=== PATIENT | male | born 1960 | race Caucasian/White ===

== ENCOUNTER 2016-07-29 08:10 | Inpatient (IN) | payer OTHER ==
[2016-07-29] VITALS (21 sets, daily range): BP systolic 104–198; BP diastolic 41–113
[~2016-07-29] VITALS: Ht 175.3 cm; Wt 72.6 kg
[~2016-07-29 08:10] MED LIST: AMLO5TAB4 PO; CARV12.52 PO; ENAL10TA PO; ENAL5TAB PO; HYDR1TAB PO; IBUP-15 PO; OXYC-12 PO; OXYC-197 PO
[2016-07-29] MEDS ORDERED: RX-NITROGLYCERIN 0.4 MG TAB BTL 25'S SL ONE ×2 (08:16→08:30)
[2016-07-29] MEDS ORDERED: ASPIRIN 81 MG CHEW (CHILDREN'S ASA) ONE (08:16)
[2016-07-29] MEDS ORDERED: morphine INJ 10 MG/ML 1ML (SYR OR VIAL) IV STA (08:25)
[2016-07-29] MEDS ORDERED: ASPIRIN 81 MG CHEW (CHILDREN'S ASA) PO ONE (08:30)
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
[2016-07-29 08:34] LABS: BASOPHILS % (AUTO) 1 % (0-10); EOSINOPHILS # (AUTO) 0.4 10^3/uL (0.0-0.3); EOSINOPHILS % (AUTO) 7 % (0-10); LYMPHOCYTES # (AUTO) 1.6 X 10^3 (1.0-4.0); LYMPHOCYTES % (AUTO) 26 % (12-44); MEAN CORPUSCULAR HEMOGLOBIN 30 PG (25-34); MEAN CORPUSCULAR HGB CONC 33 G/DL (32-36); MEAN CORPUSCULAR VOLUME 91 FL (80-99); MONOCYTES # (AUTO) 0.7 X 10^3 (0.0-1.0); MONOCYTES % (AUTO) 12 % (0-12); NEUTROPHILS # (AUTO) 3.4 X 10^3 (1.8-7.8); NEUTROPHILS % (AUTO) 55 % (42-75); PLATELET COUNT 275 10^3/uL (130-400); RED CELL DISTRIBUTION WIDTH 12.8 % (10.0-14.5); WHITE BLOOD COUNT 6.2 10^3/uL (4.3-11.0)
[2016-07-29] MEDS ORDERED: ONDANSETRON 4 MG/2 ML (SDV) Z0FRAN ONE (08:37)
[2016-07-29 08:43] LABS: INR 0.8 (0.8-1.4); PROTHROMBIN TIME PATIENT 11.2 SEC (12.2-14.7)
[2016-07-29] MEDS ORDERED: ONDANSETRON 4 MG/2 ML (SDV) Z0FRAN IVP ONE (08:45)
[2016-07-29 08:51] LABS: ALANINE AMINOTRANSFERASE 76 U/L (0-55); ALBUMIN 3.8 G/DL (3.2-4.5); ANION GAP 9 MMOL/L (5-14); ASPARTATE AMINO TRANSFERASE 70 U/L (5-34); BILIRUBIN,TOTAL 0.2 MG/DL (0.1-1.0); BLOOD UREA NITROGEN 17 MG/DL (7-18); BUN/CREATININE RATIO 17; CALCIUM 8.9 MG/DL (8.5-10.1); CARBON DIOXIDE 26 MMOL/L (21-32); CHLORIDE 105 MMOL/L (98-107); CREATININE SERUM 1.03 MG/DL (0.60-1.30); GFR ESTIMATED > 60; GLUCOSE 127 MG/DL (70-105); MAGNESIUM 2.1 MG/DL (1.8-2.4); POTASSIUM 4.5 MMOL/L (3.6-5.0); SODIUM 140 MMOL/L (135-145)
--- NOTE | 2016-07-29 08:51 | Diagnostic Imaging Report ---
INDICATION: Chest pain. Compared 09/24/2015. FINDINGS: Lungs are clear. The heart and vessels normal. There is no effusion or pneumothorax. There has been no interval change. Widening at the right AC joint is an unchanged chronic finding. IMPRESSION: Stable chest. Dictated by: Dictated on workstation # [id number]
[2016-07-29 08:58] LABS: MYOGLOBIN SERUM 36.8 NG/ML (10.0-92.0)
--- NOTE | 2016-07-29 09:43 | Diagnostic Imaging Report ---
INDICATION: Headache. Hypertension. TECHNIQUE: Routine non contrast-enhanced axial images were obtained from the skull base to the vertex. COMPARISON: 03/30/2015. FINDINGS: The ventricles and cortical sulci are normal in size and contour. There is no midline shift or mass-effect. No acute intra-axial hemorrhage is seen. There are no abnormal areas of increased or decreased density to suggest acute hemorrhage or edema. No extra-axial masses or collections are present. The bony calvarium is intact. The visualized paranasal sinuses are unremarkable. The mastoid air cells are clear. IMPRESSION: 1. No acute intracranial abnormality. No CT evidence of mass, acute infarct or intracranial hemorrhage. Dictated by: Dictated on workstation # [id number]
[2016-07-29] MEDS ORDERED: ENOXAPARIN 80 MG/0.8 ML (LOVENOX) SYR SC ONE (11:00)
[2016-07-29] MEDS ORDERED: NITROGLYCERIN 2% OINT 1 GM UNIT DOSE PACKET TOP ONE (11:00)
[2016-07-29] MEDS ORDERED: NS IV 1000 ML 1,000 ML IV SCH (12:00)
[2016-07-29] MEDS ORDERED: NITROGLYCERIN SUBLINGUAL 0.4 MG TAB (NITROSTAT) SL PRN (12:00)
[2016-07-29] MEDS ORDERED: morphine INJ 4 MG/ML 1 ML (VIAL/SYRINGE) IV PRN (12:15)
[2016-07-29] MEDS ORDERED: CATHETER FLUSH 10 ML SYR IV PRN (12:15)
[2016-07-29] MEDS ORDERED: ACETAMINOPHEN 325 MG TABLET/CAPLET (TYLENOL) PO ONE (12:30)
--- NOTE | 2016-07-29 12:50 | Consultation-Cardiology ---
HPI-Cardiology Cardiology Consultation Date of Consultation 07/29/16 Date of Admission Indication: CP HPI Patient is a 55 y/o male with history of HTN, HLP, GERD, noncompliance. Presented to the ER with complaints of Chest pain. Reports patient had episode of Chest pain, pressure intermittently yesterday. Was able to go to sleep, but woke up this morning with Chest pain, pressure. Reports significant other found him slumped over in the shower this morning. Patient does not recall event. Currently complaining of chest pressure, describing it as if "someone is sitting on my chest." Denies any palpitations, lightheadedness. Denies nausea Patient was seen and evaluated with Clara is a 55-year-old gentleman with history of hypertension, hyperlipidemia, gastroesophageal reflux disease, admitted with acute chest pain, was severely hypertensive, currently having active pain waxing and waning described it as dull in nature in the upper epigastric and lower retrosternal area radiating to the back. No shortness of breath, no palpitation, has been having severe headache for the last week, the use of nitroglycerin made his headache significantly worse, during my evaluation he was having active chest pain Home Medications & Allergies Allergies: Coded Allergies: penicillin G (Verified Allergy, Severe, SWELLING, 12/23/11) Home Medication List Reviewed: Yes OVK-Umvmhs-Hgeenb Hx Patient Social History Marital Status: single Alcohol Use: Occasionally Uses Recreational Drug Use: No (denies use. Patient had +UDS for amphetimines, methamphetamines in 10/03) Smoking Status: Current Everyday Smoker Type Used: Cigarettes Recent Foreign Travel: No Recent Infectious Disease Expo: No Recent Hopitalizations: No Immunizations Up To Date Tetanus Booster (TDap): Less than 5yrs Date of Influenza Vaccine: Dec 28, 2014 Past Medical History HTN, HLP, GERD, Hiatal hernia Family Medical History Significant Family History: Heart Disease, Hypertension Family History: Arthritis 19 MOTHER DESK REPRESENTATIVE G8 SISTER FH: COPD (chronic obstructive pulmonary disease) Hypercholesterolemia 19 MOTHER Hypertension 19 MOTHER Constitutional: No chills, No diaphoresis, No dizziness, No malaise, No weakness EENTM: No blurred vision, No double vision, No nose pain, No throat pain, No vision loss Respiratory: No cough, No dyspnea on exertion, No orthopnea, No short of breath Cardiovascular: chest painNo edema, No palpitations, syncopeNo vascular heart diseas Gastrointestinal: abdominal pain (epigastric)No constipation, diarrhea Genitourinary: No dysuria, No frequency, No hematuria Musculoskeletal: No back pain, No muscle pain Skin: No lesions, No rash Psychiatric/Neurological: Denies Anxiety, Denies Depressed, Denies Headache, Denies Numbness Reviewed Test Results Reviewed Test Results Lab Laboratory Tests 07/29/16 08:25: Activated Partial Thromboplast Time 26, Alanine Aminotransferase (ALT/SGPT) 76H , Albumin 3.8, Alkaline Phosphatase 138H, Anion Gap 9, Aspartate Amino Transf ( AST/SGOT) 70H, BUN/Creatinine Ratio 17, Basophils # (Auto) 0.0, Basophils (%) ( Auto) 1, Blood Urea Nitrogen 17, Calcium Level 8.9, Carbon Dioxide Level 26, Chloride Level 105, Creatinine 1.03, D-Dimer 0.39, Eosinophils # (Auto) 0.4H, Eosinophils (%) (Auto) 7, Estimat Glomerular Filtration Rate > 60, Glucose Level 127H, Hematocrit 42, Hemoglobin 13.9, INR Comment 0.8, Lymphocytes # (Auto ) 1.6, Lymphocytes (%) (Auto) 26, Magnesium Level 2.1, Mean Corpuscular Hemoglobin 30, Mean Corpuscular Hemoglobin Concent 33, Mean Corpuscular Volume 91, Mean Platelet Volume 10.0, Monocytes # (Auto) 0.7, Monocytes (%) (Auto) 12, Myoglobin 36.8, Neutrophils # (Auto) 3.4, Neutrophils (%) (Auto) 55, Platelet Count 275, Potassium Level 4.5, Prothrombin Time 11.2L, Red Blood Count 4.60, Red Cell Distribution Width 12.8, Sodium Level 140, Total Bilirubin 0.2, Total Protein 7.0, Troponin I < 0.30, White Blood Count 6.2 ECG Impression ECG Initial ECG Rhythm: Normal Sinus Physical Exam Vital Signs Vital Sign - Last 12Hours 07/29/16 07/29/16 08:20 08:37 Temp 98.8 Pulse 81 Resp 20 B/P 208/110 Pulse Ox 98 O2 Delivery Nasal Cannula O2 Flow Rate 2 Capillary Refill : Less Than 3 Seconds General Appearance: No Apparent Distress WD/WN HEENT: PERRL/EOMI Normal ENT Inspection Neck: Non Tender SuppleNo Carotid Bruit Respiratory: Chest Non Tender Lungs Clear Normal Breath Sounds No Accessory Muscle Use No Respiratory Distress Cardiovascular: Regular Rate, Rhythm No Edema No Gallop No JVD No Murmur Gastrointestinal: No Pulsatile Mass Soft Tenderness (epigastric region ttp) Rectal: Deferred Back: No CVA Tenderness Extremity: Non Tender No Calf Tenderness Neurologic/Psychiatric: Alert 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 Underwent lexiscan stress test December 2014 revealing no ischemia or infarct. Patient continues to complain of chest pain/pressure. Will proceed with [facility] for further evaluation. HTN- uncontrolled. given Toprol XL in the ER. Patient reports noncompliance with medication. Restart home BP medications and continue to monitor. Headache- complains of intermittent PAEZ over the past month. Could be secondary to uncontrolled HTN Questionable HLP- I will evaluate lipid profile. Tobaccoism- patient educated on the importance of smoking cessation Elevated LFT's- continue to monitor. GERD with history of gastritis. I will start pt on PPI History of methamphetamine use History of hiatal hernia repair Thank you for allowing us to participate in the management of Mr. Restrepo. This is Clara Chang PA-C as a scribe for Dr. Lao. Patient was seen and evaluated with Clara, I interviewed the patient perform physical examination personally, reviewed current scribe and agree with the current note, I made few changes and used Italic Font, patient is having active chest pain, having hypertension poorly controlled. Still having recurrent chest pain, had a stress test done in 2014 showing no significant ischemia. Due to his active pain. Patient was unable to tolerate nitroglycerin, we discussed the management plan and decided to proceed with cardiac catheterization, I gave him 5 mg of IV Lopressor in addition to his current medication. Continue to monitor closely. Clinical Quality Measures AMI/AHF: ASA po Prior to arrival: CLARA Silver Jul 29, 2016 12:50 ANDREA LAO MD Jul 29, 2016 14:20
[2016-07-29] MEDS ORDERED: meTOprolol 5 MG/5 ML (LOPRESSOR) VIAL IV NR (13:30)
[2016-07-29] MEDS ORDERED: fentaNYL INJECTION 100 MCG/2 ML AMP ONE (14:02)
[2016-07-29] MEDS ORDERED: MIDAZOLAM 5 MG/5 ML (VERSED) VIAL ONE (14:02)
--- NOTE | 2016-07-29 14:20 | Cardiac Procedure Note-CS/ASA ---
Pre-Procedure Note Pre-Op Procedure Note H&P Reviewed The H&P was reviewed, patient examined and no changes noted. Date H&P Reviewed: Jul 29, 2016 Time H&P Reviewed: 14:20 Conscious Sedation Pre-Proced Time Reviewed: 14:20 ASA Class: 3 Airway Mallampati Classification: ([place] appropriate class) I. II. III, IV Lungs Heart ASA score ASA 1: a normal healthy patient ASA 2: a patient with a mild systemic disease (mid diabetes, controlled hypertension, obesity x ASA 3: a patient with a severe systemic disease that limits activity (angina , COPD, prior Myocardial infarction) ASA 4: a patient with an incapacitating disease that is a constant threat to life (CHF, renal failure) ASA 5: a moribund patient not expected to survive 24 hrs. (ruptured aneurysm) ASA 6: a declared brain patient whose organs are being harvested. For emergent operations, add the letter E after the classification Grade 3 Sedation Plan: Analgesia, Amnesia, Plan communicated to team members, Discussed options with patient/fam, Discussed risks with patient/fam Note The patient is an appropriate candidate to undergo the planned procedure, sedation, and anesthesia. The patient immediately re-assessed prior to indication. ANDREA ELIAS MD Jul 29, 2016 14:20
[2016-07-29] MEDS ORDERED: HEParin 1000 UNIT/ML (10ML VIAL) FOR BOLUS ONE (14:49)
[2016-07-29] MEDS ORDERED: NITROGLYCERIN DRIP 25 MG/D5W 250 ML IV ONE ×2 (14:55→15:28)
[2016-07-29] MEDS ORDERED: ENALAPRILAT 2.5 MG/2 ML (VASOTEC) VIAL IV ONE ×2 (15:05→15:37)
[2016-07-29] MEDS ORDERED: meTOprolol 5 MG/5 ML (LOPRESSOR) VIAL ONE ×2 (15:05→15:37)
[2016-07-29] MEDS ORDERED: lisINopril 20 MG (ZESTRIL) TAB PO NR (15:45)
[2016-07-29] MEDS ORDERED: PATIENT MAY USE OWN MEDS, ALL PO SCH (15:45)
[2016-07-29] MEDS ORDERED: NS IV 1000 ML 1,000 ML ONE (15:56)
[2016-07-29] MEDS ORDERED: amLODIPine 10 MG (NORVASC) TAB PO NR (16:00)
[2016-07-29] MEDS: CARVEDILOL 12.5 MG (COREG) TABLET PO SCH ×2 (16:36→20:23)
[2016-07-29] MEDS: NITROGLYCERIN DRIP 25 MG/D5W 250 ML IV SCH (16:37)
[2016-07-29] MEDS: NS IV 1000 ML 1,000 ML IV SCH (16:45)
--- NOTE | 2016-07-29 17:34 | History & Physicial ---
History of Present Illness History of Present Illness Reason for visit/HPI patient came out to the emergency room due to having chest pain area Patient has history of hyperlipidemia, hypertension, GERD. Patient does use meth. Patient fell over and shower and brought in. Blood pressure was very high Surgeries hernia and right thumb. Family history mother heart disease, denies asthma TB diabetes lung disease cancer. Head admits to headaches Date of Admission Jul 29, 2016 at 11:06 I consulted on this patient on 07/29/16 17:31 Attending Physician Silver Rabago DO Admitting Physician Silver Rabago DO Consult Allergies and Home Medications Allergies Coded Allergies: penicillin G (Verified Allergy, Severe, SWELLING, 12/23/11) Home Medications Carvedilol 12.5 Mg Tablet 12.5 MG PO BID (Reported) Enalapril Maleate 10 Mg Tablet 10 MG PO BID (Reported) Past Ujtggmv-Kkzglv-Yjdpze Hx Patient Social History Marrital Status: single Alcohol Use: Denies Use Recreational Drug Use: No (denies use. Patient had +UDS for amphetimines, methamphetamines in 10/03) Smoking Status: Current Everyday Smoker Type Used: Cigarettes Physical Abuse Screen: No Sexual Abuse: No Recent Foreign Travel: No Contact w/other who traveled: No Recent Hopitalizations: No Recent Infectious Disease Expo: No Immunizations Up To Date Tetanus Booster (TDap): Less than 5yrs Date of Influenza Vaccine: Dec 28, 2014 Seasonal Allergies Seasonal Allergies: No Surgeries HX Surgeries: Yes (hernia) Surgeries: Abdominal Respiratory Hx Respiratory Disorders: No Cardiovascular Hx Cardiovascular Disorders: Yes Cardiac Disorders: High Cholesterol, Hypertension Neurological Hx Neurological Disorders: Yes (MINI STROKES-SEVERAL) Neurological Disorders: TIA Reproductive System Hx Reproductive Disorders: No Sexually Transmitted Disease: No Genitourinary Hx Genitourinary Disorders: No Gastrointestinal Hx Gastrointestinal Disorders: Yes Gastrointestinal Disorders: Gastroesophageal Reflux Musculoskeletal Hx Musculoskeletal Disorders: No Endocrine Hx Endocrine Disorders: No HEENT HX ENT Disorders: No Loss of Vision: Denies Cancer Hx Cancer: No Psychosocial Hx Psychiatric Problems: No Integumentary HX Skin/Integumentary Disorder: No Blood Transfusions Hx Blood Disorders: No Family Medical History Significant Family History: Heart Disease, Hypertension Family Hx: Arthritis 19 MOTHER PROCESS STRIPPER G8 SISTER FH: COPD (chronic obstructive pulmonary disease) Hypercholesterolemia 19 MOTHER Hypertension 19 MOTHER Constitutional: no symptoms reported EENTM: no symptoms reported Respiratory: no symptoms reported Cardiovascular: chest pain other (hypertension, fell over 1 taken a shower) Gastrointestinal: no symptoms reported Genitourinary: no symptoms reported Physical Exam Vital Signs Vital Sign - Last 12Hours 07/29/16 07/29/16 08:20 08:37 Temp 98.8 Pulse 81 Resp 20 B/P 208/110 Pulse Ox 98 O2 Delivery Nasal Cannula O2 Flow Rate 2 Capillary Refill : Less Than 3 Seconds General Appearance: WD/WN Eyes: Bilateral Eye Normal Inspection HEENT: Normal ENT Inspection Neck: Normal Inspection Respiratory: Chest Non Tender Normal Breath Sounds No Accessory Muscle Use No Respiratory Distress Cardiovascular: Regular Rate, Rhythm No Murmur Gastrointestinal: Non Tender Soft Assessment/Plan Assessment and Plan chest pain. Malignant hypertension. Hyperlipidemia. GERD. Tobacco usage Clinical Quality Measures AMI/AHF: ASA po Prior to arrival: No DVT/VTE Risk/Contraindication: Risk Factor Score Per Nursin RFS Level Per Nursing on Admit: 2=Moderate SILVER RABAGO DO Jul 29, 2016 17:34
[2016-07-29] MEDS ORDERED: FLU TRIvalent (5 YOA+) 2016-17 (AFLURIA) 0.5 ML IM ONE (19:30)
[2016-07-29] MEDS ORDERED: HYDROcodone/APAP 5 MG/325 MG (LORTAB) TAB PO PRN (19:30)
[2016-07-30] VITALS (23 sets, daily range): BP systolic 111–168; BP diastolic 55–91
[2016-07-30] MEDS: NS IV 1000 ML 1,000 ML IV SCH ×3 (02:46→21:41)
[2016-07-30 04:01] LABS: BILIRUBIN,URINE NEGATIVE (NEGATIVE); KETONES,URINE NEGATIVE (NEGATIVE); LEUKOCYTE ESTERASE ,URINE NEGATIVE (NEGATIVE); NITRITE,URINE NEGATIVE (NEGATIVE); PH,URINE 5 (5-9); PROTEIN,URINE 1+ (NEGATIVE); UROBILINOGEN,URINE NORMAL (NORMAL)
[2016-07-30 05:36] LABS: BASOPHILS % (AUTO) 0 % (0-10); EOSINOPHILS # (AUTO) 0.4 10^3/uL (0.0-0.3); EOSINOPHILS % (AUTO) 6 % (0-10); LYMPHOCYTES # (AUTO) 1.8 X 10^3 (1.0-4.0); LYMPHOCYTES % (AUTO) 26 % (12-44); MEAN CORPUSCULAR HEMOGLOBIN 30 PG (25-34); MEAN CORPUSCULAR HGB CONC 33 G/DL (32-36); MEAN CORPUSCULAR VOLUME 92 FL (80-99); MEAN PLATELET VOLUME 10.1 FL (7.4-10.4); MONOCYTES # (AUTO) 0.9 X 10^3 (0.0-1.0); MONOCYTES % (AUTO) 12 % (0-12); NEUTROPHILS # (AUTO) 3.9 X 10^3 (1.8-7.8); NEUTROPHILS % (AUTO) 55 % (42-75); PLATELET COUNT 270 10^3/uL (130-400); RED BLOOD COUNT 4.26 10^6/uL (4.35-5.85); RED CELL DISTRIBUTION WIDTH 12.7 % (10.0-14.5)
[2016-07-30 06:00] LABS: ALANINE AMINOTRANSFERASE 58 U/L (0-55); ALBUMIN 3.5 G/DL (3.2-4.5); ANION GAP 9 MMOL/L (5-14); ASPARTATE AMINO TRANSFERASE 34 U/L (5-34); BILIRUBIN,TOTAL 0.2 MG/DL (0.1-1.0); BLOOD UREA NITROGEN 15 MG/DL (7-18); BUN/CREATININE RATIO 14; CALCIUM 8.6 MG/DL (8.5-10.1); CARBON DIOXIDE 23 MMOL/L (21-32); CHLORIDE 106 MMOL/L (98-107); CHOLESTEROL 188 MG/DL (< 200); CREATININE SERUM 1.04 MG/DL (0.60-1.30); DIRECT LDL 106 MG/DL (1-129); GFR ESTIMATED > 60; GLUCOSE 86 MG/DL (70-105); POTASSIUM 4.7 MMOL/L (3.6-5.0); SODIUM 138 MMOL/L (135-145); TOTAL PROTEIN 6.4 G/DL (6.4-8.2); TRIGLYCERIDES 360 MG/DL (<150); VLDL CHOLESTEROL 72 MG/DL (5-40)
[2016-07-30 06:22] LABS: MYOGLOBIN SERUM 49.9 NG/ML (10.0-92.0); THYROID STIMULATING HORMONE 0.55 UIU/ML (0.35-4.94)
--- NOTE | 2016-07-30 06:45 | Progress Note (SOAP) ---
Subjective Subjective/Events-last exam PATIENT FEELING BETTER TODAY. pATIENT'S BLOOD PRESSURE BETTER. pATIENT ONLY VOICES HEADACHE COMPLAINT. Patient had chest pain after taking meth. Patient doing better Objective Exam Vital Signs Date Time Temp Pulse Resp B/P Pulse Ox O2 Delivery O2 Flow Rate FiO2 07/30/16 05:00 61 16 148/87 96 Nasal Cannula 2.00 07/30/16 04:00 97 Nasal Cannula 2.00 07/30/16 04:00 56 16 130/55 98 Nasal Cannula 2.00 07/30/16 03:00 57 12 119/68 98 Nasal Cannula 2.00 07/30/16 02:00 67 14 131/83 96 Nasal Cannula 2.00 07/30/16 01:00 68 07/30/16 01:00 68 12 148/88 97 Nasal Cannula 2.00 07/30/16 00:00 97 Nasal Cannula 2.00 07/30/16 00:00 65 15 126/79 99 Nasal Cannula 2.00 07/29/16 23:00 71 19 115/61 97 Nasal Cannula 2.00 07/29/16 22:00 61 11 109/52 97 Nasal Cannula 2.00 07/29/16 21:00 62 12 165/81 92 Nasal Cannula 2.00 07/29/16 21:00 97 Nasal Cannula 2.00 07/29/16 20:19 93 Nasal Cannula 2.00 07/29/16 20:00 55 14 138/54 99 Nasal Cannula 2.00 07/29/16 20:00 97 Nasal Cannula 2.00 07/29/16 20:00 97.8 Nasal Cannula 2.00 07/29/16 19:31 60 12 170/78 98 Nasal Cannula 2.00 07/29/16 19:00 62 14 104/69 92 Room Air 07/29/16 19:00 62 07/29/16 18:00 65 20 130/66 96 Room Air 07/29/16 17:30 64 18 126/81 94 Room Air 07/29/16 17:00 60 12 165/96 96 Room Air 07/29/16 16:45 52 12 128/113 95 Room Air 07/29/16 16:37 181/113 07/29/16 16:30 56 16 173/106 94 Room Air 07/29/16 16:15 Room Air 07/29/16 16:15 97.6 57 22 179/102 97 Room Air 07/29/16 14:00 61 165/90 98 Nasal Cannula 2.00 07/29/16 13:35 60 172/100 99 Nasal Cannula 2.00 07/29/16 13:15 56 198/97 99 Nasal Cannula 2.00 07/29/16 13:00 63 162/89 98 Nasal Cannula 2.00 07/29/16 12:35 65 154/72 98 Nasal Cannula 2.00 07/29/16 12:20 67 158/75 94 Nasal Cannula 2.00 07/29/16 12:05 68 148/77 94 Nasal Cannula 2.00 07/29/16 11:50 97.4 65 20 140/65 93 Nasal Cannula 2.00 07/29/16 11:45 97.4 68 18 97 2 07/29/16 10:30 65 18 150/41 98 Room Air 07/29/16 08:37 98.8 81 20 208/110 98 Nasal Cannula 2 07/29/16 08:20 98 Nasal Cannula 2 07/29/16 08:20 Nasal Cannula 2 I & O 07/30/16 07:00 Intake Total 450 ml Output Total 950 ml Balance -500 ml Capillary Refill : Less Than 3 Seconds General Appearance: No Apparent Distress WD/WN HEENT: Normal ENT Inspection Neck: Full Range of Motion Normal Inspection Respiratory: Chest Non Tender Lungs Clear Normal Breath Sounds No Accessory Muscle Use No Respiratory Distress Cardiovascular: Regular Rate, Rhythm No Murmur Gastrointestinal: non tender soft Results Lab Laboratory Tests 07/29/16 08:25 07/30/16 05:00 Laboratory Tests 07/29/16 08:25: Activated Partial Thromboplast Time 26, Alanine Aminotransferase (ALT/SGPT) 76H , Albumin 3.8, Alkaline Phosphatase 138H, Anion Gap 9, Aspartate Amino Transf ( AST/SGOT) 70H, BUN/Creatinine Ratio 17, Basophils # (Auto) 0.0, Basophils (%) ( Auto) 1, Blood Urea Nitrogen 17, Calcium Level 8.9, Carbon Dioxide Level 26, Chloride Level 105, Creatinine 1.03, D-Dimer 0.39, Eosinophils # (Auto) 0.4H, Eosinophils (%) (Auto) 7, Estimat Glomerular Filtration Rate > 60, Glucose Level 127H, Hematocrit 42, Hemoglobin 13.9, INR Comment 0.8, Lymphocytes # (Auto ) 1.6, Lymphocytes (%) (Auto) 26, Magnesium Level 2.1, Mean Corpuscular Hemoglobin 30, Mean Corpuscular Hemoglobin Concent 33, Mean Corpuscular Volume 91, Mean Platelet Volume 10.0, Monocytes # (Auto) 0.7, Monocytes (%) (Auto) 12, Myoglobin 36.8, Neutrophils # (Auto) 3.4, Neutrophils (%) (Auto) 55, Platelet Count 275, Potassium Level 4.5, Prothrombin Time 11.2L, Red Blood Count 4.60, Red Cell Distribution Width 12.8, Sodium Level 140, Total Bilirubin 0.2, Total Protein 7.0, Troponin I < 0.30, White Blood Count 6.2 07/30/16 03:50: Urine Bacteria NEGATIVE, Urine Bilirubin NEGATIVE, Urine Casts NONE, Urine Clarity CLEAR, Urine Color YELLOW, Urine Crystals NONE, Urine Culture Indicated NO, Urine Glucose (UA) NEGATIVE, Urine Ketones NEGATIVE, Urine Leukocyte Esterase NEGATIVE, Urine Mucus NEGATIVE, Urine Nitrite NEGATIVE, Urine Protein 1 +H, Urine RBC 25-50H, Urine RBC (Auto) 5+H, Urine Specific [place] 1.015L, Urine Squamous Epithelial Cells 2-5, Urine Urobilinogen NORMAL, Urine WBC NONE, Urine pH 5 07/30/16 05:00: Alanine Aminotransferase (ALT/SGPT) 58H, Albumin 3.5, Alkaline Phosphatase 136, Anion Gap 9, Aspartate Amino Transf (AST/SGOT) 34, BUN/Creatinine Ratio 14, Basophils # (Auto) 0.0, Basophils (%) (Auto) 0, Blood Urea Nitrogen 15, Calcium Level 8.6, Carbon Dioxide Level 23, Chloride Level 106, Creatinine 1.04, Eosinophils # (Auto) 0.4H, Eosinophils (%) (Auto) 6, Estimat Glomerular Filtration Rate > 60, Glucose Level 86, Hematocrit 39L, Hemoglobin 12.9L, Lymphocytes # (Auto) 1.8, Lymphocytes (%) (Auto) 26, Mean Corpuscular Hemoglobin 30, Mean Corpuscular Hemoglobin Concent 33, Mean Corpuscular Volume 92, Mean Platelet Volume 10.1, Monocytes # (Auto) 0.9, Monocytes (%) (Auto) 12, Myoglobin 49.9, Neutrophils # (Auto) 3.9, Neutrophils (%) (Auto) 55, Platelet Count 270, Potassium Level 4.7, Red Blood Count 4.26L, Red Cell Distribution Width 12.7, Sodium Level 138, Total Bilirubin 0.2, Total Protein 6.4, White Blood Count 7.0, Cholesterol Level 188, HDL Cholesterol 29L, LDL Cholesterol Direct 106, Thyroid Stimulating Hormone (TSH) 0.55, Triglycerides Level 360H, VLDL Cholesterol 72H Assessment/Plan Assessment/Plan Assess & Plan/Chief Complaint chest pain. Coronary artery disease. Hypertension. Diagnosis/Problems: Clinical Quality Measures AMI/AHF: ASA po Prior to arrival: No DVT/VTE Risk/Contraindication: Risk Factor Score Per Nursin RFS Level Per Nursing on Admit: 2=Moderate ANDRES RABAGO DO Jul 30, 2016 06:45
[2016-07-30] MEDS: lisINopril 20 MG (ZESTRIL) TAB PO SCH (08:36)
[2016-07-30] MEDS: amLODIPine 10 MG (NORVASC) TAB PO SCH (08:36)
[2016-07-30] MEDS: ASPIRIN E.C. 81 MG (ECOTRIN) TAB PO SCH (08:36)
[2016-07-30] MEDS: CARVEDILOL 12.5 MG (COREG) TABLET PO SCH ×2 (08:36→20:49)
[2016-07-30] MEDS: CLOPIDOGREL 75 MG (PLAVIX) TABLET PO SCH (08:36)
[2016-07-30] MEDS ORDERED: ASPIRIN E.C. 325 MG (ECOTRIN) TABLET PO SCH (09:00)
--- NOTE | 2016-07-30 11:12 | Cardiology Progress Note ---
Subjective Subjective/Events-last exam patient is laying down in bed. Denied any chest pain, no shortness of breath, no palpitation. Feeling better. Groin is healing well. Review of Systems General: No Chills, No Night Sweats, No Fatigue, No Malaise, No Appetite, No Other HEENT: No Head Aches, No Visual Changes, No Eye Pain, No Ear Pain, No Dysphasia , No Sinus Congestion, No Post Nasal Drip, No Sore Throat, No Other Pulmonary: No Dyspnea, No Cough, No Pleuritic Chest Pain, No Other Cardiovascular: No: Chest Pain, Edema, Lt Headedness, Orthopnea, Other, Palpitations, Paroxysmal Noc. Dyspnea Objective-Cardiology Exam Last Set of Vital Signs Vital Signs 07/30/16 07/30/16 07/30/16 06:00 07:00 08:30 Pulse 80 Resp 14 B/P 141/76 Pulse Ox 97 O2 Delivery Room Air O2 Flow Rate 2.00 Capillary Refill : Less Than 3 Seconds I&O Bad tableGeneral: Alert, Oriented X3, Cooperative HEENT: Atraumatic, PERRLA Neck: Supple, No JVD, No Thyromegaly Lungs: Clear to Auscultation, Normal Air Movement Heart: Regular Rate, Normal S1, Normal S2, No Murmurs Abdomen: Normal Bowel Sounds, Soft, No Tenderness, No Hepatosplenomegaly, No Masses Extremities: No Clubbing, No Cyanosis, No Edema, Normal Pulses, No Tenderness/ Swelling Skin: No Rashes, No Breakdown, No Significant Lesion Neuro: Normal Gait, Normal Speech, Strength at 5/5 X4 Ext, Normal Tone, Sensation Intact Psych/Mental Status: Mental Status NL, Mood NL Results Lab Laboratory Tests 07/30/16 05:00 A/P-Cardiology Admission Diagnosis CP HTN Tobaccoism GERD Assessment/Plan CP, nonspecific etiology, cardiac catheterization showed total occlusion of the right coronary artery, severe stenosis at the proper circumflex artery, ostial circumflex stenosis, the LAD had moderate disease, IVUS showed 60 percent stenosis Coronary artery disease, total occlusion of the right coronary artery, severe stenosis of the proper circumflex artery and ostial stenosis, moderate disease in the LAD. Discussed with the patient, high risk intervention can be planned as an outpatient, I will arrange for him to have the procedure done at . Echocardiogram showed normal LV function, questionable healed vegetation on the aortic valve. Functioning normally. Continue to monitor. Hypertension, better controlled, continue current medication and monitor.next Hyperlipidemia/hypertriglyceridemia, I will start Lipitor and fish oil and monitor Headache- complains of intermittent PAEZ over the past month. Could be secondary to uncontrolled HTN Tobaccoism- patient educated on the importance of smoking cessation Elevated LFT's- continue to monitor. GERD with history of gastritis. I will start pt on PPI History of methamphetamine use History of hiatal hernia repair Clinical Quality Measures AMI/AHF: ASA po Prior to arrival: No DVT/VTE Risk/Contraindication: Risk Factor Score Per Nursin RFS Level Per Nursing on Admit: 2=Moderate ANDREA ELIAS MD Jul 30, 2016 11:12
[2016-07-30] MEDS ORDERED: PANTOPRAZOLE 40 MG (PROTONIX) TAB PO ONE ×2 (12:39→12:45)
[2016-07-30] MEDS ORDERED: PANTOPRAZOLE 40 MG (PROTONIX) TAB PO NR (12:46)
[2016-07-30] MEDS: NITROGLYCERIN DRIP 25 MG/D5W 250 ML IV SCH (13:16)
[2016-07-30] MEDS: OMEGA 3 (FISH OIL) 1000 MG CAP PO SCH (18:34)
[2016-07-30] MEDS ORDERED: ATORVASTATIN 10 MG (LIPITOR) TABLET PO SCH (21:00)
[2016-07-30] MEDS ORDERED: HYDROcodone/APAP 10 MG/325 MG (LORTAB) TAB PO PRN (21:15)
[2016-07-31] VITALS (14 sets, daily range): BP systolic 97–165; BP diastolic 54–94
[2016-07-31 03:50] LABS: MEAN PLATELET VOLUME 9.9 FL (7.4-10.4); RED BLOOD COUNT 4.19 10^6/uL (4.35-5.85); RED CELL DISTRIBUTION WIDTH 12.5 % (10.0-14.5); WHITE BLOOD COUNT 5.7 10^3/uL (4.3-11.0)
[2016-07-31 04:08] LABS: ANION GAP 9 MMOL/L (5-14); BLOOD UREA NITROGEN 16 MG/DL (7-18); BUN/CREATININE RATIO 18; CALCIUM 8.3 MG/DL (8.5-10.1); CARBON DIOXIDE 25 MMOL/L (21-32); CHLORIDE 105 MMOL/L (98-107); GFR ESTIMATED > 60; GLUCOSE 92 MG/DL (70-105); SODIUM 139 MMOL/L (135-145)
[2016-07-31 04:18] LABS: TROPONIN I < 0.30 NG/ML (<0.30)
[2016-07-31] MEDS: OMEGA 3 (FISH OIL) 1000 MG CAP PO SCH (06:26)
[2016-07-31] MEDS: NS IV 1000 ML 1,000 ML IV SCH (07:41)
--- NOTE | 2016-07-31 08:16 | Progress Note (SOAP) ---
Subjective Subjective/Events-last exam Denies chest pain this AM. Ready to go home. Review of Systems General: No Chills, No Night Sweats Pulmonary: No Dyspnea, No Cough Cardiovascular: No: Chest Pain Objective Exam Vital Signs Date Time Temp Pulse Resp B/P Pulse Ox O2 Delivery O2 Flow Rate FiO2 07/31/16 07:00 65 07/31/16 06:00 48 18 158/80 98 Room Air 07/31/16 05:00 62 14 129/83 97 Room Air 07/31/16 04:00 94 Room Air 07/31/16 04:00 97.8 61 12 153/84 93 Room Air 07/31/16 03:00 51 12 143/79 98 Room Air 07/31/16 02:00 56 13 132/78 96 Room Air 07/31/16 01:00 51 07/31/16 01:00 71 12 165/80 98 Room Air 07/31/16 00:00 97 Room Air 07/31/16 00:00 97.7 59 16 115/70 97 Room Air 07/30/16 23:12 2.00 07/30/16 23:00 61 14 111/66 93 Room Air 07/30/16 22:00 67 25 133/71 96 Room Air 07/30/16 21:00 63 16 141/74 97 Room Air 07/30/16 20:00 98 Room Air 07/30/16 20:00 98 Room Air 07/30/16 20:00 78 18 168/91 96 Room Air 07/30/16 19:00 65 07/30/16 19:00 99.6 79 10 148/75 98 Room Air 07/30/16 18:00 73 16 133/71 97 Nasal Cannula 2.00 07/30/16 17:00 70 13 158/84 97 Nasal Cannula 2.00 07/30/16 16:00 75 18 138/80 97 Nasal Cannula 2.00 07/30/16 16:00 98.5 07/30/16 16:00 97 Nasal Cannula 07/30/16 15:00 89 20 133/76 98 Nasal Cannula 2.00 07/30/16 14:00 68 14 128/61 98 Nasal Cannula 2.00 07/30/16 13:00 58 07/30/16 13:00 64 14 157/81 100 Nasal Cannula 2.00 07/30/16 12:00 97.4 07/30/16 12:00 97 Nasal Cannula 07/30/16 11:00 57 23 119/57 98 Nasal Cannula 2.00 07/30/16 10:00 76 22 133/69 99 Nasal Cannula 2.00 07/30/16 09:00 69 15 150/64 98 Nasal Cannula 2.00 07/30/16 08:30 97 Room Air I & O 07/31/16 07:00 Intake Total 1150 ml Output Total 600 ml Balance 550 ml Capillary Refill : Less Than 3 Seconds General Appearance: No Apparent Distress HEENT: PERRL/EOMI Neck: Supple Respiratory: Chest Non Tender Lungs Clear Cardiovascular: Regular Rate, Rhythm No Edema Results Lab Laboratory Tests 07/31/16 03:33: Anion Gap 9, BUN/Creatinine Ratio 18, Blood Urea Nitrogen 16, Calcium Level 8.3L , Carbon Dioxide Level 25, Chloride Level 105, Creatinine 0.90, Estimat Glomerular Filtration Rate > 60, Glucose Level 92, Hematocrit 38L, Hemoglobin 12.7L, Mean Corpuscular Hemoglobin 30, Mean Corpuscular Hemoglobin Concent 33, Mean Corpuscular Volume 92, Mean Platelet Volume 9.9, Platelet Count 257, Potassium Level 4.0, Red Blood Count 4.19L, Red Cell Distribution Width 12.5, Sodium Level 139, Troponin I < 0.30, White Blood Count 5.7 Assessment/Plan Assessment/Plan Assess & Plan/Chief Complaint 55 yo M Chest pain- improved Coronary Artery disease- asa 81mg, plavix 75mg- Coreg 12.5mg Cath- 07/29/16 RCA occlusion, severe stenosis proper circumflex, LAD mod disease- consider outpatient intervention at HTN- lisinopril 20mg, amlodipine 10mg HLD- atorvastatin 10mg elevated LFTs- improved GERD- pantoprazole 40mg h/o meth use- recommend quiting headache- hydrocodone/apap 5/325mg tobacco use- smoking cessation recommended. Dispo: monitor, cardiology on the case for CAD- possibly referral to as outpt for intervention. D/c to home today. Diagnosis/Problems: Clinical Quality Measures AMI/AHF: ASA po Prior to arrival: No DVT/VTE Risk/Contraindication: Risk Factor Score Per Nursin RFS Level Per Nursing on Admit: 2=Moderate ELIE PICKETT MD Jul 31, 2016 08:16
[2016-07-31] MEDS: CARVEDILOL 12.5 MG (COREG) TABLET PO SCH (08:26)
[2016-07-31] MEDS: CLOPIDOGREL 75 MG (PLAVIX) TABLET PO SCH (08:26)
[2016-07-31] MEDS: ASPIRIN E.C. 81 MG (ECOTRIN) TAB PO SCH (08:26)
[2016-07-31] MEDS: amLODIPine 10 MG (NORVASC) TAB PO SCH (08:26)
[2016-07-31] MEDS: lisINopril 20 MG (ZESTRIL) TAB PO SCH (08:26)
[2016-07-31] MEDS ORDERED: PANTOPRAZOLE 40 MG (PROTONIX) TAB PO SCH (09:00)
[2016-07-31] MEDS ORDERED: OMG1KC PO ×2 (09:09)
[2016-07-31] MEDS ORDERED: CLOP75TA28 PO ×2 (09:09)
[2016-07-31] MEDS ORDERED: LISI-552 PO ×2 (09:09)
[2016-07-31] MEDS ORDERED: CARV12.53 PO ×2 (09:09)
[2016-07-31] MEDS ORDERED: ATOR10TA66 PO ×2 (09:09)
[2016-07-31] MEDS ORDERED: AMLO10TA2 PO ×2 (09:09)
[2016-07-31] MEDS ORDERED: ASPI-983 PO ×2 (09:09)
--- NOTE | 2016-07-31 09:10 | Discharge Inst-Post CATH ---
Discharge Inst-CATH Post Cardiac Cath D/C Inst Follow Up/Plan Appointment with Dr. Lao's office next week Appointment with Dr. Hernandes's office in 2 weeks CARDIAC CATH DISCHARGE INSTRUCTIONS *Hold Metformin for 48 hours post heart cath. ACTIVITY * Go Home directly and rest. * Limit activity of the leg (or wrist if it was used) for 7 days including aerobics, swimming, jogging, bicycling, etc. * Restrict stair-climbing for 7 days if possible, if not, climb up with your non -cath leg, then bring together on the same step. * Avoid lifting, pushing, pulling or excessive movement of the affected extremity for 7 days. * Customary sexual activity may be resumed after 2 days-use caution not to use a position that strains or causes pain to the affected extremity. * No driving for 24 hours. * NO SMOKING. * Avoid straining for bowel movements for 7 days. * Gentle walking on level ground is allowed. * Returning to work will depend on the type of procedure and the results. Your doctor will discuss this with you. CALL YOUR DOCTOR FOR ANY OF THE FOLLOWING: *If bleeding from the puncture site occurs- Apply gentle pressure to site with clean cloth and call your doctor or EMS. * If a knot or lump forms under the skin, increases in size, or causes pain. * If bruising appears to be worsening or moving further down your leg instead of disappearing. * Temperature above 101 F. CARE OF YOUR GROIN INCISION; * Bruising or purple discoloration of the skin near the puncture site is common. * You may shower only, no bathtub bathing for 5 days. Be careful to avoid slipping as your leg may feel stiff. * If a closure device was used on your femoral artery, please see the attached guide regarding care of the device and your leg. * REMOVE the dressing from your groin the next day after your procedure in the shower. CARE OF YOUR WRIST INCISION; * Bruising or purple discoloration of the skin near the puncture site is common. * You may shower. * DO NOT submerge wrist. * Remove dressing in 24 hours. ANDREA LAO MD Jul 31, 2016 09:10
--- NOTE | 2016-07-31 09:19 | Cardiology Progress Note ---
Subjective Subjective/Events-last exam patient is laying down in bed, no new complaint. Denied any chest pain. Review of Systems General: No Chills, No Night Sweats, No Fatigue, No Malaise, No Appetite, No Other HEENT: No Head Aches, No Visual Changes, No Eye Pain, No Ear Pain, No Dysphasia , No Sinus Congestion, No Post Nasal Drip, No Sore Throat, No Other Pulmonary: No Dyspnea, No Cough, No Pleuritic Chest Pain, No Other Cardiovascular: No: Chest Pain, Edema, Lt Headedness, Orthopnea, Other, Palpitations, Paroxysmal Noc. Dyspnea Objective-Cardiology Exam Last Set of Vital Signs Vital Signs 07/30/16 07/31/16 07/31/16 07/31/16 23:12 04:00 06:00 07:00 Temp 97.8 Pulse 65 Resp 18 B/P 158/80 Pulse Ox 98 O2 Delivery Room Air O2 Flow Rate 2.00 Capillary Refill : Less Than 3 Seconds I&O Intake and Output 07/31/16 00:00 Intake Total 950 ml Output Total 1550 ml Balance -600 ml Intake Oral 950 ml Output Urine Total 1550 ml # Voids 1 General: Alert, Oriented X3, Cooperative HEENT: Atraumatic, PERRLA Neck: Supple, No JVD, No Thyromegaly Lungs: Clear to Auscultation, Normal Air Movement Heart: Regular Rate, Normal S1, Normal S2, No Murmurs Abdomen: Normal Bowel Sounds, Soft, No Tenderness, No Hepatosplenomegaly, No Masses Extremities: No Clubbing, No Cyanosis, No Edema, Normal Pulses, No Tenderness/ Swelling Skin: No Rashes, No Breakdown, No Significant Lesion Neuro: Normal Gait, Normal Speech, Strength at 5/5 X4 Ext, Normal Tone, Sensation Intact Psych/Mental Status: Mental Status NL, Mood NL Results Lab Laboratory Tests 07/31/16 03:33 A/P-Cardiology Admission Diagnosis CP HTN Tobaccoism GERD Assessment/Plan CP, nonspecific etiology, cardiac catheterization showed total occlusion of the right coronary artery, severe stenosis at the proper circumflex artery, ostial circumflex stenosis, the LAD had moderate disease, IVUS showed 60 percent stenosis, starting PPI, planning to discharge home. Coronary artery disease, total occlusion of the right coronary artery, severe stenosis of the proper circumflex artery and ostial stenosis, moderate disease in the LAD. Discussed with the patient, high risk intervention can be planned as an outpatient, arrangements were made for him for possible high risk intervention at . He will be contacted as an outpatient for the procedure. Echocardiogram showed normal LV function, questionable healed vegetation on the aortic valve. Functioning normally. Continue to monitor. Hypertension, better controlled, continue current medication and monitor. Hyperlipidemia/hypertriglyceridemia, start on Lipitor and Fish oil Headache- complains of intermittent PAEZ over the past month. Could be secondary to uncontrolled HTN Tobaccoism- patient educated on the importance of smoking cessation Elevated LFT's- continue to monitor. GERD with history of gastritis. I will start pt on PPI History of methamphetamine use History of hiatal hernia repair Clinical Quality Measures AMI/AHF: ASA po Prior to arrival: No DVT/VTE Risk/Contraindication: Risk Factor Score Per Nursin RFS Level Per Nursing on Admit: 2=Moderate ANDREA ELIAS MD Jul 31, 2016 09:19
[2016-07-31] MEDS ORDERED: NITR0.4T SL ×2 (09:20)
[2016-07-31] MEDS ORDERED: PANT40SU PO ×2 (09:20)
--- NOTE | 2016-08-01 06:56 | CARDIAC CATHETERIZATION ---
PROCEDURE PHYSICIAN: ANDREA ELIAS DATE OF PROCEDURE: 07/29/2016 REFERRING PHYSICIAN: Dr. Hernandes. INDICATION: Chest pain BRIEF HISTORY: Mr. Restrepo is a 55-year-old gentleman with history of recurrent chest pain. He has been having chest pain for over 24 hours and came in for evaluation. EKG did not show any acute abnormality. Cardiac enzymes were normal. He continues to have recurrent chest pain. I decided to proceed with a cardiac catheterization. He was severely hypertensive. PROCEDURE NOTE: After explaining the procedure to the patient, all pros and cons were explained. All questions were answered. The patient signed a consent, then he was placed on the cardiac catheterization laboratory. The right groin was prepped in a sterile fashion. Local anesthesia applied to the right groin. A 6-Tajik sheath was placed in the right femoral artery. I was unable to advance the wire through the iliac artery. I used a long Storq wire as an exchange wire. Tino right catheter was advanced to the right coronary artery. Angiogram was done then pigtail catheter to the left ventricular cavity. Left ventriculogram was done. Then Tino left to the left coronary system. At that point I decided to attempt intervention on the totally occluded right coronary artery. The patient was given 5000 units of heparin. FR guide was advanced to the right coronary artery. I attempted with multiple wires to cross the totally occluded right coronary artery without success. Then I exchanged is the guide into left guide. I advanced the BMW wire to the LAD and did intravascular ultrasound to the LAD. The patient has about 60% stenosis in the mid LAD. There is a proper circumflex artery, small artery with severe stenosis. I redirected the wire, advanced it to the proper circumflex artery. I was unable to cross it with a balloon. I was concerned about the severe stenosis at multiple segments especially the ostium of that artery and did not want to risk causing dissection in that artery. Subsequently I terminated the procedure. I exchanged the guide into a pigtail catheter advanced to the abdominal aorta. An abdominal aortogram was done due to the fact that the patient was severely hypertensive throughout the procedure. At the end of the procedure, sheath was removed. Mynx device deployed. No complication noted. FINDINGS: HEMODYNAMICS: LV pressure 145/13, end-diastolic pressure of 13, aortic pressure 169/80, mean of 85. ANATOMY: 1. Left main coronary artery is bifurcating to left anterior descending and left circumflex artery with no obstructive disease. 2. Left anterior descending artery is moderate in size giving collateral to the right coronary artery. Has 60% stenosis at the midportion. IVUS was done showing moderate stenosis. 3. Left circumflex artery has a large first obtuse marginal branch/ramus intermedius with no obstructive disease. The proper circumflex artery is fairly small artery with areas of subtotal occlusion distally, attempted to cross it with balloon without success. 4. Right coronary artery is totally occluded at the midportion, getting collateral from the left system. 5. Left ventriculogram was done the right anterior oblique position. The left ventricle is normal in size and normal systolic function. Estimated ejection fraction 60%. 6. Abdominal aortogram showed the aorta is normal in size. Mild atherosclerotic disease was noted. Renal arteries appeared normal. Superior and inferior mesenteric arteries appeared normal. CONCLUSION: 1. 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 2. Severe stenosis at the distal segment of a small proper circumflex artery, fairly small artery without success in crossing the lesion with a balloon. 3. 60% stenosis in the mid LAD confirmed by IVUS. 4. Normal left ventricular size and systolic function. Estimated ejection fraction is 60%. 5. Normal abdominal aorta and renal arteries. DISCUSSION AND RECOMMENDATION: I will continue maximizing medical therapy. The patient will be transferred to the Intensive Care Unit, started on nitroglycerin drip, attempt to achieve adequate blood pressure control. Restart lisinopril and Coreg at this time. Add Norvasc and monitor blood pressure. Evaluate lipid profile. Maximizing medical therapy. Consideration for high-risk intervention to the chronic total occlusion. Job ID: [id number] Dictated Date: 07/29/2016 15:54:58 Human Resources Temp Date: 08/01/2016 06:40:42 / barbara
--- NOTE | 2016-08-01 11:31 | ECHOCARDIOGRAPHY REPORT ---
PROCEDURE PHYSICIAN: ANDREA ELIAS DATE OF PROCEDURE: 07/30/2016 TWO DIMENSIONAL ECHOCARDIOGRAM REPORT PRIMARY PHYSICIAN: OTHER PHYSICIAN: REFERRING PHYSICIAN: Dr. Hernandes ORDERING PHYSICIAN: INDICATION FOR THE PROCEDURE: Chest pain. MEASUREMENTS DERIVED VALUES LV DIAMETER (LAX) NORMALS NORMALS Diastolic 4. (3.6-5.2) Eject. Fract. 60% (60%+/-6%) Systolic (2.3-3.9) Diastolic Vol. % Shortening (0.22-0.42) Systolic Vol. Aortic Root IVS THICKNESS Diastolic 1.2 (0.6-1.1) LVPW THICKNESS Diastolic 1.2 (0.6-1.1) LA DIAMETER Systolic 3.6 (2.1-3.7) FINDINGS: 1. Technical quality is good. 2. The left ventricle is normal in size with moderate left ventricular hypertrophy noted diffusely. Systolic function appeared to be normal. Estimated ejection fraction 60%. 3. The left atrium is in the upper normal limit in size. No clot or thrombus were seen within the left atrium. ' 4. The right atrium and right ventricle are normal in size. No clot or thrombus were seen within the right side. 5. Mitral valve is normal in morphology with mild mitral regurgitation noted by color Doppler flow. No mitral valve prolapse. No mitral valve stenosis. 6. Aortic valve is trileaflet with normal opening and closing pattern. There is an echogenic density noted on the aortic leaflets measuring 1 x 0.7 cm, it could be a healed vegetation. Color Doppler flow across the aortic valve showed moderate aortic regurgitation. No aortic valve stenosis. 7. Tricuspid valve is normal in morphology with mild tricuspid regurgitation noted by color Doppler flow. Doppler across tricuspid valve estimated pulmonary artery pressure of 40+ right atrial pressure. 8. Pulmonic valve is functioning normally. 9. No pericardial effusion. CONCLUSION: 1. Moderate left ventricular hypertrophy with normal systolic function. Estimated ejection fraction 60%. 2. Left atrium is in the upper normal limit in size. 3. Echogenic density was noted on the aortic cusp. It could be representing a healed vegetation. There is no aortic valve stenosis, moderate aortic regurgitation. 4. Mild mitral and tricuspid regurgitation. 5. Pulmonary hypertension with estimated pulmonary artery pressure of 40 mmHg. Job ID: [id number] Dictated Date: 07/31/2016 08:31:52 Planning Analyst Date: 08/01/2016 11:26:11 / barbara
--- NOTE | 2016-08-04 12:06 | Discharge Summary ---
Diagnosis/Chief Complaint Date of Admission Jul 29, 2016 at 11:56 Date of Discharge Jul 31, 2016 at 14:00 Discharge Date: Admission Diagnosis Admission Diagnosis chest pain. Malignant hypertension. Hyperlipidemia. GERD. Tobacco usage Discharge Diagnosis chest pain nonspecified. Coronary artery disease. Essential hypertension. Hyperlipidemia. GERD. Nicotine dependence. Headache. History of meth Reason Hospital Visit patient came out to the emergency room due to having chest pain area Patient has history of hyperlipidemia, hypertension, GERD. Patient does use meth. Patient fell over and shower and brought in. Blood pressure was very high Surgeries hernia and right thumb. Family history mother heart disease, denies asthma TB diabetes lung disease cancer. Head admits to headaches Discharge Summary Procedures heart catheter Consultations cardiology Discharge Physical Examination Allergies: Coded Allergies: penicillin G (Verified Allergy, Severe, SWELLING, 12/23/11) Vitals & I&Os Vital Signs Date Time Temp Pulse Resp B/P Pulse Ox O2 Delivery O2 Flow Rate FiO2 07/31/16 14:00 07/31/16 13:00 71 07/31/16 13:00 Room Air 07/31/16 11:00 93 07/31/16 08:00 97.2 20 07/30/16 23:12 2.00 Hospital Course patient did well Labs (last 24 hrs) Laboratory Tests 07/29/16 08:25: Activated Partial Thromboplast Time 26, Alanine Aminotransferase (ALT/SGPT) 76H , Albumin 3.8, Alkaline Phosphatase 138H, Anion Gap 9, Aspartate Amino Transf ( AST/SGOT) 70H, BUN/Creatinine Ratio 17, Basophils # (Auto) 0.0, Basophils (%) ( Auto) 1, Blood Urea Nitrogen 17, Calcium Level 8.9, Carbon Dioxide Level 26, Chloride Level 105, Creatinine 1.03, D-Dimer 0.39, Eosinophils # (Auto) 0.4H, Eosinophils (%) (Auto) 7, Estimat Glomerular Filtration Rate > 60, Glucose Level 127H, Hematocrit 42, Hemoglobin 13.9, INR Comment 0.8, Lymphocytes # (Auto ) 1.6, Lymphocytes (%) (Auto) 26, Magnesium Level 2.1, Mean Corpuscular Hemoglobin 30, Mean Corpuscular Hemoglobin Concent 33, Mean Corpuscular Volume 91, Mean Platelet Volume 10.0, Monocytes # (Auto) 0.7, Monocytes (%) (Auto) 12, Myoglobin 36.8, Neutrophils # (Auto) 3.4, Neutrophils (%) (Auto) 55, Platelet Count 275, Potassium Level 4.5, Prothrombin Time 11.2L, Red Blood Count 4.60, Red Cell Distribution Width 12.8, Sodium Level 140, Total Bilirubin 0.2, Total Protein 7.0, Troponin I < 0.30, White Blood Count 6.2 07/30/16 03:50: Ur Tricyclic Antidepressants Screen NEGATIVE, Urine Amphetamines Screen NEGATIVE , Urine Bacteria NEGATIVE, Urine Barbiturates Screen NEGATIVE, Urine Benzodiazepines Screen NEGATIVE, Urine Bilirubin NEGATIVE, Urine Cannabinoids Screen NEGATIVE, Urine Casts NONE, Urine Clarity CLEAR, Urine Cocaine Screen NEGATIVE, Urine Color YELLOW, Urine Crystals NONE, Urine Culture Indicated NO, Urine Glucose (UA) NEGATIVE, Urine Ketones NEGATIVE, Urine Leukocyte Esterase NEGATIVE, Urine Methadone Screen NEGATIVE, Urine Methamphetamines Screen NEGATIVE, Urine Mucus NEGATIVE, Urine Nitrite NEGATIVE, Urine Opiates Screen POSITIVEH, Urine Oxycodone Screen NEGATIVE, Urine Phencyclidine Screen NEGATIVE , Urine Propoxyphene Screen NEGATIVE, Urine Protein 1+H, Urine RBC 25-50H, Urine RBC (Auto) 5+H, Urine Specific [place] 1.015L, Urine Squamous Epithelial Cells 2-5, Urine Urobilinogen NORMAL, Urine WBC NONE, Urine pH 5 07/30/16 05:00: Alanine Aminotransferase (ALT/SGPT) 58H, Albumin 3.5, Alkaline Phosphatase 136, Anion Gap 9, Aspartate Amino Transf (AST/SGOT) 34, BUN/Creatinine Ratio 14, Basophils # (Auto) 0.0, Basophils (%) (Auto) 0, Blood Urea Nitrogen 15, Calcium Level 8.6, Carbon Dioxide Level 23, Chloride Level 106, Creatinine 1.04, Eosinophils # (Auto) 0.4H, Eosinophils (%) (Auto) 6, Estimat Glomerular Filtration Rate > 60, Glucose Level 86, Hematocrit 39L, Hemoglobin 12.9L, Lymphocytes # (Auto) 1.8, Lymphocytes (%) (Auto) 26, Mean Corpuscular Hemoglobin 30, Mean Corpuscular Hemoglobin Concent 33, Mean Corpuscular Volume 92, Mean Platelet Volume 10.1, Monocytes # (Auto) 0.9, Monocytes (%) (Auto) 12, Myoglobin 49.9, Neutrophils # (Auto) 3.9, Neutrophils (%) (Auto) 55, Platelet Count 270, Potassium Level 4.7, Red Blood Count 4.26L, Red Cell Distribution Width 12.7, Sodium Level 138, Total Bilirubin 0.2, Total Protein 6.4, Troponin I < 0.30, White Blood Count 7.0, Cholesterol Level 188, HDL Cholesterol 29L, LDL Cholesterol Direct 106, Thyroid Stimulating Hormone (TSH) 0.55, Triglycerides Level 360H, VLDL Cholesterol 72H 07/31/16 03:33: Anion Gap 9, BUN/Creatinine Ratio 18, Blood Urea Nitrogen 16, Calcium Level 8.3L , Carbon Dioxide Level 25, Chloride Level 105, Creatinine 0.90, Estimat Glomerular Filtration Rate > 60, Glucose Level 92, Hematocrit 38L, Hemoglobin 12.7L, Mean Corpuscular Hemoglobin 30, Mean Corpuscular Hemoglobin Concent 33, Mean Corpuscular Volume 92, Mean Platelet Volume 9.9, Platelet Count 257, Potassium Level 4.0, Red Blood Count 4.19L, Red Cell Distribution Width 12.5, Sodium Level 139, Troponin I < 0.30, White Blood Count 5.7 Laboratory Tests 07/29/16 08:25 07/30/16 05:00 07/31/16 03:33 Pending Labs Laboratory Tests 07/29/16 08:25: Activated Partial Thromboplast Time 26, Alanine Aminotransferase (ALT/SGPT) 76, Albumin 3.8, Alkaline Phosphatase 138, Anion Gap 9, Aspartate Amino Transf (AST/ SGOT) 70, BUN/Creatinine Ratio 17, Basophils # (Auto) 0.0, Basophils (%) (Auto) 1, Blood Urea Nitrogen 17, Calcium Level 8.9, Carbon Dioxide Level 26, Chloride Level 105, Creatinine 1.03, D-Dimer 0.39, Eosinophils # (Auto) 0.4, Eosinophils (%) (Auto) 7, Estimat Glomerular Filtration Rate > 60, Glucose Level 127, Hematocrit 42, Hemoglobin 13.9, INR Comment 0.8, Lymphocytes # (Auto) 1.6, Lymphocytes (%) (Auto) 26, Magnesium Level 2.1, Mean Corpuscular Hemoglobin 30, Mean Corpuscular Hemoglobin Concent 33, Mean Corpuscular Volume 91, Mean Platelet Volume 10.0, Monocytes # (Auto) 0.7, Monocytes (%) (Auto) 12, Myoglobin 36.8, Neutrophils # (Auto) 3.4, Neutrophils (%) (Auto) 55, Platelet Count 275, Potassium Level 4.5, Prothrombin Time 11.2, Red Blood Count 4.60, Red Cell Distribution Width 12.8, Sodium Level 140, Total Bilirubin 0.2, Total Protein 7.0, Troponin I < 0.30, White Blood Count 6.2 07/30/16 03:50: Ur Tricyclic Antidepressants Screen NEGATIVE, Urine Amphetamines Screen NEGATIVE , Urine Bacteria NEGATIVE, Urine Barbiturates Screen NEGATIVE, Urine Benzodiazepines Screen NEGATIVE, Urine Bilirubin NEGATIVE, Urine Cannabinoids Screen NEGATIVE, Urine Casts NONE, Urine Clarity CLEAR, Urine Cocaine Screen NEGATIVE, Urine Color YELLOW, Urine Crystals NONE, Urine Culture Indicated NO, Urine Glucose (UA) NEGATIVE, Urine Ketones NEGATIVE, Urine Leukocyte Esterase NEGATIVE, Urine Methadone Screen NEGATIVE, Urine Methamphetamines Screen NEGATIVE, Urine Mucus NEGATIVE, Urine Nitrite NEGATIVE, Urine Opiates Screen POSITIVE, Urine Oxycodone Screen NEGATIVE, Urine Phencyclidine Screen NEGATIVE, Urine Propoxyphene Screen NEGATIVE, Urine Protein 1+, Urine RBC 25-50, Urine RBC (Auto) 5+, Urine Specific [place] 1.015, Urine Squamous Epithelial Cells 2-5 , Urine Urobilinogen NORMAL, Urine WBC NONE, Urine pH 5 07/30/16 05:00: Alanine Aminotransferase (ALT/SGPT) 58, Albumin 3.5, Alkaline Phosphatase 136, Anion Gap 9, Aspartate Amino Transf (AST/SGOT) 34, BUN/Creatinine Ratio 14, Basophils # (Auto) 0.0, Basophils (%) (Auto) 0, Blood Urea Nitrogen 15, Calcium Level 8.6, Carbon Dioxide Level 23, Chloride Level 106, Creatinine 1.04, Eosinophils # (Auto) 0.4, Eosinophils (%) (Auto) 6, Estimat Glomerular Filtration Rate > 60, Glucose Level 86, Hematocrit 39, Hemoglobin 12.9, Lymphocytes # (Auto) 1.8, Lymphocytes (%) (Auto) 26, Mean Corpuscular Hemoglobin 30, Mean Corpuscular Hemoglobin Concent 33, Mean Corpuscular Volume 92, Mean Platelet Volume 10.1, Monocytes # (Auto) 0.9, Monocytes (%) (Auto) 12, Myoglobin 49.9, Neutrophils # (Auto) 3.9, Neutrophils (%) (Auto) 55, Platelet Count 270, Potassium Level 4.7, Red Blood Count 4.26, Red Cell Distribution Width 12.7, Sodium Level 138, Total Bilirubin 0.2, Total Protein 6.4, Troponin I < 0.30, White Blood Count 7.0, Cholesterol Level 188, HDL Cholesterol 29, LDL Cholesterol Direct 106, Thyroid Stimulating Hormone (TSH) 0.55, Triglycerides Level 360, VLDL Cholesterol 72 07/31/16 03:33: Anion Gap 9, BUN/Creatinine Ratio 18, Blood Urea Nitrogen 16, Calcium Level 8.3 , Carbon Dioxide Level 25, Chloride Level 105, Creatinine 0.90, Estimat Glomerular Filtration Rate > 60, Glucose Level 92, Hematocrit 38, Hemoglobin 12.7, Mean Corpuscular Hemoglobin 30, Mean Corpuscular Hemoglobin Concent 33, Mean Corpuscular Volume 92, Mean Platelet Volume 9.9, Platelet Count 257, Potassium Level 4.0, Red Blood Count 4.19, Red Cell Distribution Width 12.5, Sodium Level 139, Troponin I < 0.30, White Blood Count 5.7 Radiology Reviewed chest x-ray stable. CAT scan of the head nothing acute Discharge Home Medications: Active Scripts Active Nitrostat (Nitroglycerin) 0.4 Mg Tab.subl 0.4 Mg SL 5XD PRN Protonix (Pantoprazole Sodium) 40 Mg Granpkt.dr 40 Mg PO DAILY Aspirin EC (Aspirin) 81 Mg Tablet.dr 81 Mg PO DAILY Lisinopril 20 Mg Tablet 20 Mg PO DAILY Amlodipine Besylate 10 Mg Tablet 10 Mg PO DAILY Carvedilol 12.5 Mg Tablet 6.25 Mg PO BID Fish Oil 1,000 mg Capsule ([place] 3 Polyunsat Fatty Acids) 1,000 Mg Cap 1,000 Mg PO BID WITH MEALS Atorvastatin Calcium 10 Mg Tablet 10 Mg PO HS Clopidogrel (Clopidogrel Bisulfate) 75 Mg Tablet 75 Mg PO DAILY Instructions to patient/family Please see electonic discharge instructions given to patient. Clinical Quality Measures AMI/AHF: ASA po Prior to arrival: No DVT/VTE Risk/Contraindication: Risk Factor Score Per Nursin RFS Level Per Nursing on Admit: 2=Moderate ANDRES RABAGO DO Aug 04, 2016 12:06
== END 2016-07-31 14:00 | disposition home or self-care (01) | DRG 287 ==
LOC: EDUNIT# 08:10 → ER 08:12 → CSD 11:06 → OBSVTOIN 11:56 → ICU 16:05
PROVIDERS: ADMIT Family Medicine; ATTEND Family Medicine
PROC: 4A023N7 Measurement of Cardiac Sampling and Pressure, Left Heart, Percutaneous Approach (ICD-10-PCS; principal; 2016-07-29)
PROC: B2151ZZ Fluoroscopy of Left Heart using Low Osmolar Contrast (ICD-10-PCS; 2016-07-29)
PROC: B2111ZZ Fluoroscopy of Multiple Coronary Arteries using Low Osmolar Contrast (ICD-10-PCS; 2016-07-29)
PROC: B4101ZZ Fluoroscopy of Abdominal Aorta using Low Osmolar Contrast (ICD-10-PCS; 2016-07-29)
DX: I25.10 Atherosclerotic heart disease of native coronary artery without angina pectoris (principal); I10 Essential (primary) hypertension; E78.5 Hyperlipidemia, unspecified; E78.1 Pure hyperglyceridemia; R79.89 Other specified abnormal findings of blood chemistry; K21.9 Gastro-esophageal reflux disease without esophagitis; F17.210 Nicotine dependence, cigarettes, uncomplicated; R51 Headache; F15.21 Other stimulant dependence, in remission; Z91.14 Patient's other noncompliance with medication regimen
CPT/HCPCS: 36415; 70450; 71010; 75625; 80048; 80053; 80061; 80306; 81000; 83735; 83874; 84443; 84484; 85025; 85027; 85347; 85379; 85610; 85730; 92920; 92978; 93005; 93041; 93306; 93458; 96372; 96374; 96375

== ENCOUNTER 2016-07-31 20:36 | Emergency (ER) | payer OTHER ==
[~2016-07-31] VITALS: Ht 175.3 cm; Wt 72.6 kg
[~2016-07-31 20:36] MED LIST changes: +AMLO10TA2 PO; +ASPI-983 PO; +ATOR10TA66 PO; +CARV12.53 PO; +CLOP75TA28 PO; +LISI-552 PO; +NITR0.4T SL; +OMG1KC PO; +PANT40SU PO
--- OUTSIDE RECORDS SUMMARY | 2016-07-31 20:44 | XMS REPORT | Continuity of Care Document ---
Author Author [facility] Organization [facility] Address Unknown Phone Unavailable Care Team Providers Care Psychiatric Cns Name Role Phone ANDRES RABAGO DO PCP Insurance Providers Payer Name Policy Number Subscriber Name Relationship Self Pay Pending [facility] Apprv [id number] Kaz Restrepo 18 Self / Same As Patient Advance Directives Directive Response Recorded Date/Time Advance Directives No 07/29/16 12:35pm Health Care Power of Ventilation Worker No 07/29/16 12:35pm Organ Donor No 07/29/16 12:35pm Resuscitation Status Full Code 07/29/16 12:35pm Chief Complaint and Reason for Visit Chief Complaint CHEST PAIN Reason for Visit Sprain of cervical neck Uncontrolled hypertension Problems Active Problems Medical Problem Onset Date Status Chest pain Unknown Acute Fall from ladder Unknown Acute Labile hypertension Unknown Acute Minor head injury without loss of consciousness Unknown Acute Sprain of cervical neck Unknown Acute Uncontrolled hypertension Unknown Acute Medications Current Home Medications Medication Dose Units Route Directions Days/Qty Instructions Start Date Clopidogrel Bisulfate 75 Mg 75 Mg Oral Daily 30 07/31/16 Atorvastatin Calcium 10 Mg 10 Mg Oral Bedtime 30 07/31/16 [place] 3 Polyunsat Fatty Acids 1,000 Mg 1,000 Mg Oral Twice A Day With Meals 60 07/31/16 Carvedilol 12.5 Mg 6.25 Mg Oral Twice A Day 60 07/31/16 Amlodipine Besylate 10 Mg 10 Mg Oral Daily 30 07/31/16 Lisinopril 20 Mg 20 Mg Oral Daily 30 07/31/16 Aspirin 81 Mg 81 Mg Oral Daily 60 07/31/16 Pantoprazole Sodium 40 Mg 40 Mg Oral Daily 30 07/31/16 Nitroglycerin 0.4 Mg 0.4 Mg Sublingual 5 Times Daily as needed for Chest Pain 30 07/31/16 Past Home Medications Medication Directions Ordered Status Acetaminophen/Hydrocodone Bitart 1 Each Tablet, 1 - 2 Each Oral Q4hr Prn 10/29 Discontinued Oxycodone Hcl/Acetaminophen 1 Each Tablet, 1 - 2 Tab Oral Q4-6HRS as needed 12/28/11 Discontinued Carvedilol 12.5 Mg Tablet, 12.5 Mg Oral Twice A Day 03/30/15 Discontinued Enalapril Maleate 10 Mg Tablet, 10 Mg Oral Twice A Day 03/30/15 Discontinued Oxycodone Hcl/Acetaminophen 1 Each Tablet, 2 Each Oral Every 4HRS 03/31/15 Discontinued Ibuprofen 200 Mg Tablet, 800 Mg Oral Every 6 Hours 03/31/15 Discontinued Amlodipine Besylate 5 Mg Tablet, 5 Mg Oral Daily 09/24/15 Discontinued Social History Social History Problem Response Recorded Date/Time Alcohol Use Denies Use 09/24/2015 3:04pm Recreational Drug Use No 09/24/2015 3:04pm Recent Foreign Travel No 07/29/2016 8:23pm Recent Infectious Disease Exposure No 07/29/2016 8:23pm Sexually Transmitted Disease No 07/29/2016 12:36pm Smoking Status Current Everyday Smoker 07/29/2016 8:22pm Do you dip or chew tobacco? No 09/24/2015 3:04pm Type Used Cigarettes 07/31/2016 3:11pm Recent Hopitalizations No 07/29/2016 12:36pm Sexually Transmitted Disease No 07/29/2016 12:36pm Query Response Start Date Stop Date Smoking Status Current Everyday Smoker Hospital Discharge Instructions Patient Instructions Physician Instructions Follow Up/Plan Appointment with Dr. Lao's office next week Appointment with Dr. Rabago's office in 2 weeks CARDIAC CATH DISCHARGE INSTRUCTIONS *Hold Metformin for 48 hours post heart cath. ACTIVITY * Go Home directly and rest. * Limit activity of the leg (or wrist if it was used) for 7 days including aerobics, swimming, jogging, bicycling, etc. * Restrict stair-climbing for 7 days if possible, if not, climb up with your non-cath leg, then bring together on the same step. * Avoid lifting, pushing, pulling or excessive movement of the affected extremity for 7 days. * Customary sexual activity may be resumed after 2 days-use caution not to use a position that strains or causes pain to the affected extremity. * No driving for 24 hours. * NO SMOKING. * Avoid straining for bowel movements for 7 days. * Gentle walking on level ground is allowed. * Returning to work will depend on the type of procedure and the results. Your doctor will discuss this with you. CALL YOUR DOCTOR FOR ANY OF THE FOLLOWING: *If bleeding from the puncture site occurs- Apply gentle pressure to site with clean cloth and call your doctor or EMS. * If a knot or lump forms under the skin, increases in size, or causes pain. * If bruising appears to be worsening or moving further down your leg instead of disappearing. * Temperature above 101 F. CARE OF YOUR GROIN INCISION; * Bruising or purple discoloration of the skin near the puncture site is common. * You may shower only, no bathtub bathing for 5 days. Be careful to avoid slipping as your leg may feel stiff. * If a closure device was used on your femoral artery, please see the attached guide regarding care of the device and your leg. * REMOVE the dressing from your groin the next day after your procedure in the shower. CARE OF YOUR WRIST INCISION; * Bruising or purple discoloration of the skin near the puncture site is common. * You may shower. * DO NOT submerge wrist. * Remove dressing in 24 hours. Plan of Care Discharge Date 07/31/16 2:00pm Disposition 01 HOME, SELF-CARE Instructions/Education Provided CARDIAC CATH DISCHARGE INSTRUC Prescriptions See Medication Section Referrals (Unspecified) - Reason(s) for Referral: PLEASE FOLLOW UP WITH DR LAO IN ONE WEEK PLEASE FOLLOW UP WITH DR RABAGO IN TWO WEEKS Care Plan and Goals See Discharge Instructions Section Functional Status Query Response Date Recorded Patient Orientation Person Place Time Situation July 31, 2016 3:11pm Comprehension Ability Understands Concepts July 31, 2016 4:00am Allergies, Adverse Reactions, Alerts Allergen Type Severity Reaction Status Last Updated Penicillin g Allergy Severe SWELLING Active 12/23/11 Immunizations Name Given Type FLU TRIvalent 5 years - Adult 07/29/16 Administered Vital Signs Acute Vital Signs Vital Response Date/Time Temperature (Fahrenheit) 97.2 degrees F (97.6 - 99.5) 07/31/2016 8:00am Temperature (Calculated Celsius) 36.93648 degrees C (36.4 - 37.5) 07/31/2016 8:00am Temperature Source Tympanic 07/31/2016 8:00am Pulse Rate (adult) 71 bpm (60 - 90) 07/31/2016 1:00pm Respiratory Rate 20 bpm (12 - 24) 07/31/2016 8:00am O2 Sat by Pulse Oximetry 93 % (88 - 100) 07/31/2016 11:00am Blood Pressure 126/58 mm Hg 07/31/2016 1:00pm Blood Pressure Mean 80 mm Hg 07/31/2016 1:00pm Pain Numeric Pain Scale 0-No Pain 07/31/2016 8:00am Pain Numeric Pain Scale 0-No Pain 07/31/2016 8:00am Height (Feet) 5 feet 07/29/2016 8:24pm Height (Inches) 9.00 inches 07/29/2016 8:24pm Height (Calculated Centimeters) 175.527676 cm 07/29/2016 8:24pm Weight (Pounds) 160 pounds 07/31/2016 6:00am Weight (Ounces) 0.0 oz 07/31/2016 6:00am Weight (Calculated Grams) 57735.780 gm 07/31/2016 6:00am Weight (Calculated Kilograms) 72.068557 kilograms 07/31/2016 6:00am Calculated BMI 23.6 07/29/2016 8:24pm Capillary Refill Capillary Refill Less Than 3 Seconds 07/29/2016 7:00pm Capillary Refill Capillary Refill Less Than 3 Seconds 07/29/2016 7:00pm Results Laboratory Results Test Name Result Units Flags Reference Collection Date/Time Result Date/ Time Comments White Blood Count 5.7 10^3/uL 4.3-11.0 07/31/2016 3:33am 07/31/2016 3: 50am Red Blood Count 4.19 10^6/uL L 4.35-5.85 07/31/2016 3:33am 07/31/2016 3: 50am Hemoglobin 12.7 G/DL L 13.3-17.7 07/31/2016 3:3307/31/2016 3:50am Hematocrit 38 % L 40-54 07/31/2016 3:3307/31/2016 3:50am Mean Corpuscular Volume 92 FL 80-99 07/31/2016 3:3307/31/2016 3: 50am Mean Corpuscular Hemoglobin 30 PG 25-34 07/31/2016 3:3307/31/2016 3: 50am Mean Corpuscular Hemoglobin Concent 33 G/DL 32-36 07/31/2016 3:3304/2017 3:50am Red Cell Distribution Width 12.5 % 10.0-14.5 07/31/2016 3:332016 3:50am Platelet Count 257 10^3/uL 130-400 07/31/2016 3:3307/31/2016 3:50am Mean Platelet Volume 9.9 FL 7.4-10.4 07/31/2016 3:33am 07/31/2016 3: 50am Neutrophils (%) (Auto) 55 % 42-75 07/30/2016 5:0007/30/2016 5:41am Lymphocytes (%) (Auto) 26 % 12-44 07/30/2016 5:0007/30/2016 5:41am Monocytes (%) (Auto) 12 % 0-12 07/30/2016 5:0007/30/2016 5:41am Eosinophils (%) (Auto) 6 % 0-10 07/30/2016 5:0007/30/2016 5:41am Basophils (%) (Auto) 0 % 0-10 07/30/2016 5:0007/30/2016 5:41am Neutrophils # (Auto) 3.9 X 10^3 1.8-7.8 07/30/2016 5:0007/30/2016 5: 41am Lymphocytes # (Auto) 1.8 X 10^3 1.0-4.0 07/30/2016 5:0007/30/2016 5: 41am Monocytes # (Auto) 0.9 X 10^3 0.0-1.0 07/30/2016 5:0007/30/2016 5: 41am Eosinophils # (Auto) 0.4 10^3/uL H 0.0-0.3 07/30/2016 5:00am 07/30/2016 5 :41am Basophils # (Auto) 0.0 10^3/uL 0.0-0.1 07/30/2016 5:00am 07/30/2016 5: 41am Prothrombin Time 11.2 SEC L 12.2-14.7 07/29/2016 8:25am 07/29/2016 8: 45am INR Comment 0.8 0.8-1.4 07/29/2016 8:25am 07/29/2016 8:45am INTERPRETIVE DATA SUGGESTED THERAPEUTIC RANGE FOR INR'S: VENOUS THROMBOSIS, PULMONARY EMBOLISM, OR PREVENTION OF SYSTEMIC EMBOLISM (EG. IN ATRIAL FIBRILLATION): 2.0 - 3.0 MECHANICAL PROSTHETIC HEART VALVES: 2.5 - 3.5* *NOTE: INR'S UP TO 4.5 MAY BE NECESSARY IN SELECTED GROUPS OF HIGH RISK PATIENTS. [employer]IX[employer] OF CHEST PHYSICIANS CONSENSUS CONFERENCE ON ANTITHROMBOTIC THERAPY (2000). Activated Partial Thromboplast Time 26 SEC 24-35 07/29/2016 8:25am 02/2017 8:45am D-Dimer 0.39 UG/ML 0.00-0.49 07/29/2016 8:25am 07/29/2016 10:27am Urine Color YELLOW 07/30/2016 3:50am 07/30/2016 4:13am Urine Clarity CLEAR 07/30/2016 3:50am 07/30/2016 4:13am Urine pH 5 5-9 07/30/2016 3:50am 07/30/2016 4:13am Urine Specific [place] 1.015 * 1.016-1.022 07/30/2016 3:50am 2016 4:13am Urine Protein 1+ * NEGATIVE 07/30/2016 3:50am 07/30/2016 4:13am Urine Glucose (UA) NEGATIVE NEGATIVE 07/30/2016 3:50am 07/30/2016 4: 13am Urine RBC (Auto) 5+ * NEGATIVE 07/30/2016 3:50am 07/30/2016 4:13am Urine Ketones NEGATIVE NEGATIVE 07/30/2016 3:50am 07/30/2016 4:13am Urine Nitrite NEGATIVE NEGATIVE 07/30/2016 3:50am 07/30/2016 4:13am Urine Bilirubin NEGATIVE NEGATIVE 07/30/2016 3:50am 07/30/2016 4: 13am Urine Urobilinogen NORMAL MG/DL NORMAL 07/30/2016 3:50am 07/30/2016 4: 13am Urine Leukocyte Esterase NEGATIVE NEGATIVE 07/30/2016 3:50am 2016 4:13am Urine RBC 25-50 /HPF * 07/30/2016 3:50am 07/30/2016 4:13am Urine WBC NONE /HPF 07/30/2016 3:50am 07/30/2016 4:13am Urine Bacteria NEGATIVE /HPF 07/30/2016 3:50am 07/30/2016 4:13am Urine Squamous Epithelial Cells 2-5 /HPF 07/30/2016 3:50am 2016 4:13am Urine Crystals NONE /LPF 07/30/2016 3:50am 07/30/2016 4:13am Urine Casts NONE /LPF 07/30/2016 3:50am 07/30/2016 4:13am Urine Mucus NEGATIVE /LPF 07/30/2016 3:50am 07/30/2016 4:13am Urine Culture Indicated NO 07/30/2016 3:50am 07/30/2016 4:13am Sodium Level 139 MMOL/L 135-145 07/31/2016 3:33am 07/31/2016 4:09am Potassium Level 4.0 MMOL/L 3.6-5.0 07/31/2016 3:33am 07/31/2016 4:09am Chloride Level 105 MMOL/L 98-107 07/31/2016 3:33am 07/31/2016 4:09am Carbon Dioxide Level 25 MMOL/L 21-32 07/31/2016 3:33am 07/31/2016 4: 09am Anion Gap 9 MMOL/L 5-14 07/31/2016 3:33am 07/31/2016 4:09am Blood Urea Nitrogen 16 MG/DL 7-18 07/31/2016 3:33am 07/31/2016 4:09am Creatinine 0.90 MG/DL 0.60-1.30 07/31/2016 3:33am 07/31/2016 4:09am BUN/Creatinine Ratio 18 07/31/2016 3:33am 07/31/2016 4:09am Estimat Glomerular Filtration Rate > 60 07/31/2016 3:33am 2016 4:09am GFR INTERPRETIVE DATA UNITS FOR ESTIMATED GFR (eGFR): mL/min/1.73 M2 REFERENCE RANGE FOR ESTIMATED GFR (eGFR) eGFR NORMAL eGFR >60 MODERATELY DECREASED eGFR 30-59 SEVERLY DECREASED eGFR 15-29 KIDNEY FAILURE <15 (OR DIALYSIS) Glucose Level 92 MG/DL 70-105 07/31/2016 3:33am 07/31/2016 4:09am Calcium Level 8.3 MG/DL L 8.5-10.1 07/31/2016 3:33am 07/31/2016 4:09am Magnesium Level 2.1 MG/DL 1.8-2.4 07/29/2016 8:25am 07/29/2016 8:53am Total Bilirubin 0.2 MG/DL 0.1-1.0 07/30/2016 5:00am 07/30/2016 6:03am Alkaline Phosphatase 136 U/L 40-136 07/30/2016 5:00am 07/30/2016 6: 03am Aspartate Amino Transf (AST/SGOT) 34 U/L 5-34 07/30/2016 5:00am 2016 6:03am Alanine Aminotransferase (ALT/SGPT) 58 U/L H 0-55 07/30/2016 5:00am 07/30 6:03am Troponin I < 0.30 NG/ML <0.30 07/31/2016 3:33am 07/31/2016 4:19am Troponin I < 0.30 NG/ML <0.30 07/29/2016 8:25am 07/29/2016 9:00am Myoglobin 49.9 NG/ML 10.0-92.0 07/30/2016 5:00am 07/30/2016 6:28am Total Protein 6.4 G/DL 6.4-8.2 07/30/2016 5:00am 07/30/2016 6:03am Albumin 3.5 G/DL 3.2-4.5 07/30/2016 5:00am 07/30/2016 6:03am Triglycerides Level 360 MG/DL H <150 07/30/2016 5:00am 07/30/2016 6:03am Cholesterol Level 188 MG/DL < 200 07/30/2016 5:00am 07/30/2016 6:03am HDL Cholesterol 29 MG/DL L 40-60 07/30/2016 5:00am 07/30/2016 6:03am LDL Cholesterol Direct 106 MG/DL 1-129 07/30/2016 5:00am 07/30/2016 6: 03am VLDL Cholesterol 72 MG/DL H 5-40 07/30/2016 5:00am 07/30/2016 6:03am Thyroid Stimulating Hormone (TSH) 0.55 UIU/ML 0.35-4.94 07/30/2016 5: 00am 07/30/2016 6:28am Procedures Procedure Status Date Provider(s) Tracing only of electrocardiogram Completed 07/29/16 BRITNEY CEE MD Tracing only of electrocardiogram Active 07/29/16 ANDRES RABAGO DO Tracing only of electrocardiogram Completed 07/30/16 ANDRES RABAGO DO Tracing only of electrocardiogram Active 07/30/16 ANDREA LAO MD Color Doppler echocardiography Active 07/30/16 ANDREA LAO MD Tracing only of electrocardiogram Active 07/31/16 ANDRES RABAGO DO Encounters Encounter Location Arrival/Admit Date Discharge/Depart Date Attending Provider Admitted Inpatient [facility] 07/29/16 11:56am ANDRES RABAGO DO Recent Diagnosis Sprain of cervical neck Uncontrolled hypertension
--- NOTE | 2016-07-31 20:46 | ED Chest Pain ---
General Chief Complaint: Chest Pain Stated Complaint: CHEST PAIN Source: patient, EMS, RN notes reviewed Exam Limitations: no limitations History of Present Illness Time seen by provider: 20:45 Initial Comments Substernal chest pain just QUALITATIVE FIELD COORDINATOR while @ rest. Rated 08/27. Had heart cath here yesterday c/ noted disease. Referred to [facility] for further eval/work up. No N/V , diaphoresis, or SOA. Timing/Duration: constant Severity/Quality: mild Location: substernal Radiation: no radiation Activities at Onset: none Prior CP/Workup: cardiac cath Modifying Factors: improves with other (none) ASA po QUALITATIVE FIELD COORDINATOR: Yes NTG SL QUALITATIVE FIELD COORDINATOR: Yes Associated Symptoms: denies symptoms Allergies and Home Medications Allergies Coded Allergies: penicillin G (Verified Allergy, Severe, SWELLING, 12/23/11) Home Medications Amlodipine Besylate 10 Mg Tablet #30 10 MG PO DAILY Prescribed by: ANDREA ELIAS on 07/31/16 09 Aspirin 81 Mg Tablet.dr #60 81 MG PO DAILY Prescribed by: ANDREA ELIAS on 07/31/16 09 Atorvastatin Calcium 10 Mg Tablet #30 10 MG PO HS Prescribed by: ANDREA ELIAS on 07/31/16 09 Carvedilol 12.5 Mg Tablet #60 6.25 MG PO BID Prescribed by: ANDREA ELIAS on 07/31/16 09 Clopidogrel Bisulfate 75 Mg Tablet #30 75 MG PO DAILY Prescribed by: ANDREA ELIAS on 07/31/16 09 Lisinopril 20 Mg Tablet #30 20 MG PO DAILY Prescribed by: ANDREA ELIAS on 07/31/16 09 Nitroglycerin 0.4 Mg Tab.subl #30 0.4 MG SL 5XD PRN PRN CHEST PAIN Prescribed by: ANDREA ELIAS on 07/31/16 09 [place] 3 Polyunsat Fatty Acids 1,000 Mg Cap #60 1,000 MG PO BID WITH MEALS Prescribed by: ANDREA ELIAS on 07/31/16 09 Pantoprazole Sodium 40 Mg Granpkt.dr #30 40 MG PO DAILY Prescribed by: ANDREA ELIAS on 07/31/16919 Review of Systems Constitutional: see HPI Cardiovascular: See HPI Chest Pain All Other Systems Reviewed Negative Unless Noted: Yes (Negative excepted noted.) Past Mfseeeo-Jrxzpp-Lswdzl Hx Patient Social History Alcohol Use: Denies Use Recreational Drug Use: No Smoking Status: Current Everyday Smoker Type Used: Cigarettes 2nd Hand Smoke Exposure: No Recent Hopitalizations: No Immunizations Up To Date Tetanus Booster (TDap): Less than 5yrs Date of Influenza Vaccine: Dec 28, 2014 Seasonal Allergies Seasonal Allergies: No Surgeries HX Surgeries: Yes (hernia) Surgeries: Abdominal Respiratory Hx Respiratory Disorders: No Cardiovascular Hx Cardiac Disorders: Yes Cardiac Disorders: High Cholesterol, Hypertension Neurological Hx Neurological Disorders: Yes (MINI STROKES-SEVERAL) Neurological Disorders: TIA Reproductive System Hx Reproductive Disorders: No Sexually Transmitted Disease: No Genitourinary Hx Genitourinary Disorders: No Gastrointestinal Hx Gastrointestinal Disorders: Yes Gastrointestinal Disorders: Gastroesophageal Reflux Musculoskeletal Hx Musculoskeletal Disorders: No Endocrine Hx Endocrine Disorders: No HEENT HX ENT Disorders: No Loss of Vision: Denies Cancer Hx Cancer: No Psychosocial Hx Psychiatric Problems: No Integumentary HX Skin/Integumentary Disorder: No Blood Transfusions Hx Blood Disorders: No Family Medical History Significant Family History: Heart Disease, Hypertension Family Medial History: Arthritis 19 MOTHER CORPORATE DEVELOPMENT MANAGER G8 SISTER FH: COPD (chronic obstructive pulmonary disease) Hypercholesterolemia 19 MOTHER Hypertension 19 MOTHER Physical Exam Vital Signs Vital Sign - Last 12Hours Capillary Refill : Less Than 3 Seconds General Appearance: No Apparent Distress WD/WN Respiratory: No Respiratory Distress Cardiovascular: Regular Rate, Rhythm Rectal: Deferred Neurologic/Psychiatric: Alert Oriented x3 No Motor/Sensory Deficits Depressed Affect Skin: Warm/Dry Progress/Results/Core Measures Results/Orders Lab Results Laboratory Tests Test 07/31/16 20:40 07/31/16 21:59 Range/Units Alanine Aminotransferase (ALT/SGPT) 49 0-55 U/L Albumin 3.7 3.2-4.5 G/DL Alkaline Phosphatase 134 40-136 U/L Anion Gap 9 5-14 MMOL/L Aspartate Amino Transf (AST/SGOT) 68 H 5-34 U/L B-Type Natriuretic Peptide 28.2 <100.0 PG/ML BUN/Creatinine Ratio 15 Basophils # (Auto) 0.0 0.0-0.1 10^3/uL Basophils (%) (Auto) 0 0-10 % Blood Urea Nitrogen 16 7-18 MG/DL Calcium Level 8.3 L 8.5-10.1 MG/DL Carbon Dioxide Level 22 21-32 MMOL/L Chloride Level 102 98-107 MMOL/L Creatinine 1.07 0.60-1.30 MG/DL D-Dimer 0.56 H 0.00-0.49 UG/ML Eosinophils # (Auto) 0.5 H 0.0-0.3 10^3/uL Eosinophils (%) (Auto) 8 0-10 % Estimat Glomerular Filtration Rate > 60 Glucose Level 147 H 70-105 MG/DL Hematocrit 38 L 40-54 % Hemoglobin 12.9 L 13.3-17.7 G/DL Lipase 63 8-78 U/L Lymphocytes # (Auto) 1.9 1.0-4.0 X 10^3 Lymphocytes (%) (Auto) 28 12-44 % Magnesium Level 4.0 H 1.8-2.4 MG/DL Mean Corpuscular Hemoglobin 31 25-34 PG Mean Corpuscular Hemoglobin Concent 34 32-36 G/DL Mean Corpuscular Volume 91 80-99 FL Mean Platelet Volume 9.8 7.4-10.4 FL Monocytes # (Auto) 0.7 0.0-1.0 X 10^3 Monocytes (%) (Auto) 11 0-12 % Neutrophils # (Auto) 3.7 1.8-7.8 X 10^3 Neutrophils (%) (Auto) 54 42-75 % Platelet Count 299 130-400 10^3/uL Potassium Level 4.5 3.6-5.0 MMOL/L Red Blood Count 4.18 L 4.35-5.85 10^6/uL Red Cell Distribution Width 12.5 10.0-14.5 % Sodium Level 133 L 135-145 MMOL/L Total Bilirubin 0.1 0.1-1.0 MG/DL Total Protein 8.8 H 6.4-8.2 G/DL Troponin I < 0.30 <0.30 NG/ML White Blood Count 6.9 4.3-11.0 10^3/uL Ur Tricyclic Antidepressants Screen NEGATIVE NEGATIVE Urine Amphetamines Screen NEGATIVE NEGATIVE Urine Bacteria NEGATIVE /HPF Urine Barbiturates Screen NEGATIVE NEGATIVE Urine Benzodiazepines Screen NEGATIVE NEGATIVE Urine Bilirubin NEGATIVE NEGATIVE Urine Cannabinoids Screen NEGATIVE NEGATIVE Urine Casts NONE /LPF Urine Clarity CLEAR Urine Cocaine Screen NEGATIVE NEGATIVE Urine Color YELLOW Urine Crystals NONE /LPF Urine Culture Indicated NO Urine Glucose (UA) NEGATIVE NEGATIVE Urine Ketones NEGATIVE NEGATIVE Urine Leukocyte Esterase NEGATIVE NEGATIVE Urine Methadone Screen NEGATIVE NEGATIVE Urine Methamphetamines Screen NEGATIVE NEGATIVE Urine Mucus SMALL H /LPF Urine Nitrite NEGATIVE NEGATIVE Urine Opiates Screen POSITIVE H NEGATIVE Urine Oxycodone Screen NEGATIVE NEGATIVE Urine Phencyclidine Screen NEGATIVE NEGATIVE Urine Propoxyphene Screen NEGATIVE NEGATIVE Urine Protein 1+ H NEGATIVE Urine RBC 0-2 /HPF Urine RBC (Auto) NEGATIVE NEGATIVE Urine Renal Epithelial Cells NONE /HPF Urine Specific [place] 1.020 1.016-1.022 Urine Squamous Epithelial Cells 0-2 /HPF Urine Urobilinogen NORMAL NORMAL MG/DL Urine WBC 2-5 /HPF Urine pH 6 5-9 My Orders Orders-JOSE DANIEL VELEZ DO BNP (07/31/16 20:45) Cbc With Automated Diff (07/31/16 20:45) Comprehensive Metabolic Panel (07/31/16 20:45) Fibrin Degradation Products (07/31/16 20:45) Drug Screen Stat (Urine) (07/31/16 20:45) Lipase (07/31/16 20:45) Magnesium (07/31/16 20:45) Troponin I (07/31/16 20:45) Ua Culture If Indicated (07/31/16 20:45) Chest 1 View, Ap/Pa Only (07/31/16 20:45) Ekg Tracing (07/31/16 20:47) Continuous Ekg Monitoring (07/31/16 20:47) Ct Angio Chest W (07/31/16 22:25) Iohexol Injection (Omnipaque 350 Mg/Ml 1 (07/31/16 22:45) Ns (Ivpb) (Sodium Chloride 0.9% Ivpb Bag (07/31/16 22:45) Ketorolac Injection (Toradol Injection) (08/01/16 00:00) Ketorolac Injection (Toradol Injection) (08/01/16 00:05) Medications Given in ED Current Medications Medications Dose Ordered Sig/Mckenzie Route Start Time Stop Time Status Last Admin Dose Admin Iohexol 150 ml ONCE ONCE IV 07/31/16 22:45 07/31/16 23:22 DC 07/31/16 22:47 125 ML Ketorolac Tromethamine 30 mg ONCE ONCE IVP 08/01/16 00:00 08/01/16 00:01 DC 08/01/16 00:07 30 MG Sodium Chloride 80 ml ONCE ONCE IV 07/31/16 22:45 07/31/16 23:22 DC 07/31/16 22:47 80 ML Vital Signs/I&O Vital Sign - Last 12Hours 07/31/16 07/31/16 08/01/16 08/01/16 20:40 20:40 00:11 00:12 Temp 99.1 99.1 98.6 Pulse 66 59 Resp 18 18 B/P 177/90 Pulse Ox 94 99 O2 Delivery Room Air Room Air ECG Initial ECG Impression Date: Jul 31, 2016 Initial ECG Impression Time: 20:42 Initial ECG Rate: 63 Initial ECG Rhythm: Normal Sinus Initial ECG Intervals: Normal Initial ECG Impression: Normal Initial ECG Comparisson: Unchanged Diagnostic Imaging Diagonstic Imaging: Xray, CT Plain Films/CT/US/NM/MRI: chest Reviewed: Reviewed [place] Study (nothing acute) Departure Impression Impression: Primary Impression: Chest pain Additional Impression: Tobacco abuse Disposition: HOME, SELF-CARE Condition: Stable Departure-Patient Inst. Decision time for Depature: 00:01 Referrals: ANDRES RABAGO DO (PCP/Family) Primary Care Physician Patient Instructions: Angina (DC) Add. Discharge Instructions: All discharge instructions reviewed with patient and/or family. Voiced understanding. FOLLOW UP WITH [facility] DIRECTED BY DR. ELIAS. CONTINUE YOUR CURRENT MEDICATIONS DIRECTED. MUST STOP SMOKING. JOSE DANIEL VELEZ DO Jul 31, 2016 20:46
[2016-07-31 21:00] LABS: BASOPHILS % (AUTO) 0 % (0-10); EOSINOPHILS # (AUTO) 0.5 10^3/uL (0.0-0.3); EOSINOPHILS % (AUTO) 8 % (0-10); LYMPHOCYTES # (AUTO) 1.9 X 10^3 (1.0-4.0); LYMPHOCYTES % (AUTO) 28 % (12-44); MEAN CORPUSCULAR HEMOGLOBIN 31 PG (25-34); MEAN CORPUSCULAR HGB CONC 34 G/DL (32-36); MEAN CORPUSCULAR VOLUME 91 FL (80-99); MEAN PLATELET VOLUME 9.8 FL (7.4-10.4); MONOCYTES # (AUTO) 0.7 X 10^3 (0.0-1.0); MONOCYTES % (AUTO) 11 % (0-12); NEUTROPHILS # (AUTO) 3.7 X 10^3 (1.8-7.8); NEUTROPHILS % (AUTO) 54 % (42-75); PLATELET COUNT 299 10^3/uL (130-400); RED BLOOD COUNT 4.18 10^6/uL (4.35-5.85); RED CELL DISTRIBUTION WIDTH 12.5 % (10.0-14.5); WHITE BLOOD COUNT 6.9 10^3/uL (4.3-11.0)
--- NOTE | 2016-07-31 21:05 | Diagnostic Imaging Report ---
INDICATION: Chest pain. Heart cath. COMPARISON: 07/29/16. EXAMINATION: Single view of the chest was obtained. FINDINGS: Clear lungs, bilaterally. The heart size is normal. There is no pneumothorax. Osseous structures are normal. IMPRESSION: Negative chest. Dictated by: Dictated on workstation # [id number]
[2016-07-31 21:15] LABS: ALANINE AMINOTRANSFERASE 49 U/L (0-55); ALBUMIN 3.7 G/DL (3.2-4.5); ANION GAP 9 MMOL/L (5-14); ASPARTATE AMINO TRANSFERASE 68 U/L (5-34); BILIRUBIN,TOTAL 0.1 MG/DL (0.1-1.0); BLOOD UREA NITROGEN 16 MG/DL (7-18); BUN/CREATININE RATIO 15; CALCIUM 8.3 MG/DL (8.5-10.1); CARBON DIOXIDE 22 MMOL/L (21-32); CHLORIDE 102 MMOL/L (98-107); CREATININE SERUM 1.07 MG/DL (0.60-1.30); GFR ESTIMATED > 60; GLUCOSE 147 MG/DL (70-105); LIPASE 63 U/L (8-78); SODIUM 133 MMOL/L (135-145); TOTAL PROTEIN 8.8 G/DL (6.4-8.2)
[2016-07-31 21:26] LABS: TROPONIN I < 0.30 NG/ML (<0.30)
[2016-07-31 21:28] LABS: POTASSIUM 4.5 MMOL/L (3.6-5.0)
[2016-07-31 22:10] LABS: BILIRUBIN,URINE NEGATIVE (NEGATIVE); KETONES,URINE NEGATIVE (NEGATIVE); LEUKOCYTE ESTERASE ,URINE NEGATIVE (NEGATIVE); NITRITE,URINE NEGATIVE (NEGATIVE); PH,URINE 6 (5-9); PROTEIN,URINE 1+ (NEGATIVE); UROBILINOGEN,URINE NORMAL (NORMAL)
[2016-07-31 22:34] LABS: SQUAMOUS EPITHELIAL CELL,UR 0-2 /HPF
[2016-07-31] MEDS ORDERED: NS 100 ML (IVPB) BAG IV ONE (22:45)
[2016-07-31] MEDS ORDERED: IOHEXOL 350 MG/ML 150 ML (OMNIPAQUE 350) VIAL IV ONE (22:45)
[2016-08-01] MEDS ORDERED: KETOROLAC 30 MG/ML VIAL IVP ONE
[2016-08-01] MEDS ORDERED: KETOROLAC 30 MG/ML VIAL ONE (00:05)
[2016-08-01 00:12] VITALS: BP 152/93
--- NOTE | 2016-08-01 08:26 | Diagnostic Imaging Report ---
PROCEDURE: CT angiography of the chest with contrast. TECHNIQUE: Multiple contiguous axial images were obtained through the chest after uneventful bolus administration of intravenous contrast. Reconstructed CTA MIP acquisitions were also performed. INDICATION: Chest pain. EXAMINATION: CTA of the chest dated 07/31/2016. COMPARISON: Comparison made to chest dated 03/30/2015. FINDINGS: The thyroid gland is slightly lobular and prominent; sonography on a nonemergent basis could further characterize. The visualized aorta is unremarkable. The central and proximal segmental pulmonary arteries demonstrate no evidence for filling defects. No pulmonary embolus is seen. There are partially calcified and prominent lymph nodes within the right hilum. These are more prominent than on previous imaging. Other scattered slightly prominent lymph nodes throughout the mediastinum also noted. There is no pericardial or pleural effusion. There is a very small hiatal hernia. Bibasilar dependent atelectasis is noted. No masses or nodules appreciated. The osseous structures are stable from previous imaging with no acute process seen. Visualized upper abdominal structures demonstrate some narrowing of the proximal right renal artery with a focal area of perhaps at least 70% stenosis noted. More distally, the artery is patent and normal enhancement of the visualized right kidney is seen. There is fatty infiltration throughout the liver. IMPRESSION: 1. No evidence for pulmonary embolus. 2. Small hiatal hernia. 3. Nonspecific mildly prominent lymph nodes in the mediastinum. Similar findings in the right hilum although partially calcified and perhaps due to old granulomatous disease. Followup could be performed to assure stability. 4. Stenosis noted in the right renal artery as discussed above. Clinical correlation and followup recommended. Findings agree with the preliminary report with the additional finding of the right renal artery stenosis not mentioned by the [facility] report. Dictated by: Dictated on workstation # [id number]
== END 2016-08-01 00:12 | disposition home or self-care (01) ==
LOC: EDUNIT# 20:36 → ER 20:38
DX: R07.89 Other chest pain (principal); F17.210 Nicotine dependence, cigarettes, uncomplicated; K44.9 Diaphragmatic hernia without obstruction or gangrene; I70.1 Atherosclerosis of renal artery; R59.0 Localized enlarged lymph nodes; Z79.82 Long term (current) use of aspirin; Z79.899 Other long term (current) drug therapy
CPT/HCPCS: 36415; 71010; 71275; 80053; 80306; 81000; 83690; 83735; 83880; 84484; 85025; 85379; 93005; 96374

== ENCOUNTER 2016-08-12 13:08 | Inpatient (IN) | payer OTHER ==
[~2016-08-12] VITALS: Ht 175.3 cm; Wt 72.6 kg
--- OUTSIDE RECORDS SUMMARY | 2016-08-12 13:14 | XMS REPORT | Continuity of Care Document ---
Author Author [facility] Organization [facility] Address Unknown Phone Unavailable Care Team Providers Care Livestock Speculator Name Role Phone RenategurinderSilver PCP [phone] Source Comments Some departments are not documenting in the electronic medical record. If you do not see the information that you expected, contact Release of Information in the Health Information Management department at [phone] for further assistance in locating additional records.[facility] Active Allergies and Adverse Reactions Allergen Noted Date Severity Reactions Comments Pcn 08/04/2016 High EDEMA Current Medications Prescription Sig. Disp. Refills Start End Date Status Date amLODIPine (NORVASC) 10 Take 10 mg by mouth Active mg tablet daily. aspirin EC 81 mg tablet Take 81 mg by mouth Active daily. Take with food. carvedilol (COREG) 12.5 Take 6.25 mg by mouth Active mg tablet twice daily with meals. Take with food. lisinopril (PRINIVIL; Take 20 mg by mouth Active ZESTRIL) 20 mg tablet daily. pantoprazole DR Take 40 mg by mouth Active (PROTONIX) 40 mg tablet daily. DOCOSAHEXANOIC ACID/EPA Take 1,000 mg by mouth Active (FISH OIL PO) twice daily. atorvastatin (LIPITOR) 40 Take 1 Tab by mouth at 90 Tab 3 08/10/19 Active mg tablet bedtime daily. 17 clopiDOGrel (PLAVIX) 75 Take 1 Tab by mouth 90 Tab 3 08/10/19 Active mg tablet daily. 17 nitroglycerin (NITROSTAT) Place 1 Tab under tongue 25 Tab 3 08/10/19 Active 0.4 mg tablet every 5 minutes as needed 17 for Chest Pain. Max of 3 tablets, call 911. atorvastatin (LIPITOR) 10 Take 10 mg by mouth at 08/10/19 Discontin mg tablet bedtime daily. 17 ued clopiDOGrel (PLAVIX) 75 Take 75 mg by mouth 08/10/19 Discontin mg tablet daily. 17 ued nitroglycerin (NITROSTAT) Place 0.4 mg under tongue 08/10/19 Discontin 0.4 mg tablet every 5 minutes as needed 17 ued for Chest Pain. Max of 3 tablets, call 911. 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 Severe stenosis at the distal segment of a small proper circumflex artery, fairly small artery without success in crossing the lesion with a balloon. 60% stenosis in the mid LAD confirmed by IVUS. Normal left ventricular size and systolic function, estimated EF 60%. Normal abdominal aorta and renal arteries. 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 08/09/2016 Hospital Cardiology David Simms MD Coronary artery disease - Encounter of [place] artery of 08/10/2016 [place] heart with stable angina pectoris (HCC) 08/09/2016 Surgery Cardiology David Simms MD Chronic Total Occlusion of Right Coronary Artery and Circumflex Percutaneous Intervention 08/08/2016 Pre-Admit Cardiology Linda Marroquin, OPEN HEARTH FURNACE OPERATOR HELPER-C Orders Only 08/04/2016 Telephone Cardiology Anastasia Coffey RN Patient Instructions 08/03/2016 Pre-Procedure Cardiology Anastasia Coffey RN Cath Pre- Procedure Instructions Instructions - CHIMNEY SUPERVISOR BRICK - LVCORS +/- (08/09 - MAW) 08/03/2016 Telephone Cardiology Leigh Lawrence RN Other - approved for procedure 08/03/2016 Documentation Cardiology Ethan Gupta RN Precertification - No Insurance Social History Tobacco Use Types Packs/Day Years Used Date Current Every Day Smoker Cigarettes Alcohol Use Drinks/Week oz/Week Comments Yes 0 Standard 0.0 drinks or equivalent Last Filed Vital Signs Vital Sign Reading Time Taken Blood Pressure 142/80 08/10/2016 8:55 AM [facility]UROPSYCHOLOGY DIV[facility]IE[facility] Pulse 71 08/10/2016 8:55 AM NEUROPSYCHOLOGY DIVISION CHIE[facility] Temperature 36.9 C (98.4 F) 08/10/2016 9:04 AM NEUROPSYCHOLOGY DIVISION CHIEF Respiratory Rate - - Height 1.753 m (5' 9") 08/09/2016 8:35 AM NEUROPSYCHOLOGY DIVISION CHIEF Weight 72.2 kg (159 lb 2.8 oz) 08/09/2016 8:35 AM NEUROPSYCHOLOGY DIVISION CHIEF Body Mass Index 23.49 08/09/2016 8:35 AM NEUROPSYCHOLOGY DIVISION CHIEF Oxygen Saturation 98% 08/10/2016 8:55 AM NEUROPSYCHOLOGY DIVISION CHIEF Plan of Care Date Type Specialty Providers Description 08/23/2016 Surgery Cardiology David Simms MD Percutaneous Coronary [address] Intervention [place] [address] Circumflex/[place] [address] Marginal Artery [phone] (Fax) Health Maintenance Due Date Last Done Comments Hepatitis C Screening 1960 Physical (Comprehensive) 1968 Exam Pertussis Vaccine 1972 Tetanus Vaccine 1978 Colorectal Cancer 2011 Screening Influenza Vaccine 02/19/2016 Procedures from Last 3 Months Procedure Name Priority Date/Time Associated Diagnosis Comments ECG-SCAN 08/12/2016 Results for this 9:18 AM NEUROPSYCHOLOGY DIVISION CHIEF procedure are in the results section. ECG-SCAN 08/12/2016 Results for this 9:18 AM NEUROPSYCHOLOGY DIVISION CHIEF procedure are in the results section. Results from Last 3 Months ECG-SCAN (08/12/2016 9:18 AM) Narrative Ordered by an unspecified provider. ECG-SCAN (08/12/2016 9:18 AM) Narrative Ordered by an unspecified provider. CARDIAC CATH REPORT (08/10/2016 4:40 PM) Procedure Note TueAug 09, 2016 12:18 PM NEUROPSYCHOLOGY DIVISION CHIEF [facility] CARDIAC CATHETERIZATION REPORT Page 2 EZEQUIEL RESTREPO Joe : 1960 KU#: [id number] KU MR #/Billing ID #: [id number] / [id number] DATE: 08/09/2016 FLOOR MANAGER: David Simms MD DICTATING PROVIDER: David Simms MD REFERRING PHYSICIAN: David Simms MD PROCEDURES PERFORMED: 1. Left heart catheterization. 2. Selective left and right coronary cineangiograms. 3. Successful revascularization of a chronic total occlusion of the mid right coronary artery, initially with a retrograde approach but with a successful antegrade approach ultimately, utilizing a 2.5 x 38 Xience and 3.0 x 38 Xience drug-eluting stent from distal to proximal. PROCEDURAL DETAILS: Mr. Restrepo is a 56-year-old male with a history of known coronary artery disease and a chronic total occlusion of the mid right coronary artery as well as a high-grade lesion in the mid obtuse marginal branch. PCI was attempted at an outside facility and was transferred here for high-risk intervention so that surgical backup could be on site. Moderate IV conscious sedation was monitored and administered by myself, nursing and technical staff for a total duration of approximately 90 minutes. Oxygen saturation, heart rate , blood pressure, and level of consciousness was assessed throughout the procedure and again at its completion. The bilateral groins were prepped and draped in typical fashion. We infiltrated the right groin with approximately 20 mL of 1% lidocaine and initially advanced a 7-Martiniquais arterial sheath in the right common femoral artery. Selective left and right coronary cineangiograms were then performed utilizing standard 5-Martiniquais diagnostic coronary catheters in various LAGUNAS and THAI projections as well as a left heart catheterization. This baseline information was then used for planning purposes. We then anesthetized the left groin with approximately 20 mL of 1% lidocaine and advanced a 2nd 7-Martiniquais arterial sheath. Heparin was then used to maintain a therapeutic ACT throughout the case. We advanced a 7-Martiniquais EBU 3.75 guide to the ostium of the left main and a 7-Martiniquais AR1 guide to the ostium of the right coronary artery. Initially we attempted retrograde revascularization given the antegrade appearance of the mid right coronary artery occlusion. A Corsair catheter and a Fielder FC were used, however, we were unsuccessful in advancing the Fielder FC into the right coronary artery in a retrograde fashion. Ultimately we changed our approach, utilizing the Corsair catheter and a Progress 40 wire and gaining access in an antegrade fashion. The Corsair catheter was advanced into the distal right coronary artery with a notable blood return, confirming we were intraluminal. We then exchanged out for a 0.014 exchange length Luge wire. Predilatation was performed with a 2.0 x 20 balloon on sequential inflations at 14-16 atmospheres. We then ultimately advanced a 2.5 x 38 Xience drug-eluting stent into the distal right coronary artery and deployed this at 12 atmospheres. A 2nd 3.0 x 38 Xience drug-eluting stent was advanced covering back to the proximal segment and deployed at 12 atmospheres. Postdilatation with a delivery balloon was then performed in the mid segment at 16 atmospheres. Angiographically, the stents were well apposed, however, slightly under-expanded at the mid segment. We readvanced a 3.0 x 15 NC balloon and post dilated at 18 atmospheres on sequential inflations. Angiographically, the stent appeared to be well apposed and well expanded. We had no evidence of proximal or distal edge dissection and brisk CHRYSTAL-3 flow into the distal vessel. There were no complications associated with the procedure. TOTAL INTRAVENOUS CONTRAST: 350 mL of Visipaque 320. TOTAL FLUOROSCOPY TIME: 2493 mGy of air kerma. FINDINGS: 1. Selective left and right coronary cineangiograms. a. Left coronary was visualized with the JL4 catheter initially. The left main trifurcated to LAD, circumflex, and intermediate ramus vessel. The left main itself was free of any angiographically significant disease. The LAD appeared to be a type 2 configuration, gave rise to a medium-sized diagonal branch proximally. There was a long diffuse segment of disease throughout the mid segment of the LAD which was about 50% to 60% angiographically. This involved the proximal aspect of the diagonal branch as well. b. The intermediate ramus was visualized and was noted to be a medium caliber vessel. There was a 50% to 60% stenosis in the mid segment of this intermediate ramus vessel as well. The circumflex gave rise to an AV groove collateral which supplied the posterolateral vessel. At the origin of the circumflex there appeared to be a 60% stenosis and in the mid segment of the circumflex as it continued to the obtuse marginal there appeared to be an 80% to 90% stenosis. There were noted to be [id number] collaterals via the AV groove segment and also from what appeared to be the septal perforators off the LAD. c. The [place] right coronary was visualized with the JR4 catheter. Technically , it was dominant based on the angiographic appearance from the left system. The [place] right coronary artery was occluded at the mid segment with no appreciable right to right collaterals. Post intervention, the [place] right coronary artery was a large caliber vessel, gave rise to a posterior descending and 2 posterolateral branches. The posterior descending and posterolateral branches did not demonstrate any high-grade focal irregularities. 2. Left heart catheterization. a. Left ventricular end-diastolic pressures were 6-8 mmHg. There was no gradient across aortic valve. ASSESSMENT: 1. Severe coronary artery disease manifest by the following:. a. Chronic total occlusion in the mid right coronary artery status post successful PCI with a 2.5 x 38 and 3.0 x 38 Xience drug-eluting stent from distal to proximal. 2. 80% to 90% proximal 1st obtuse marginal stenosis. 3. 50% to 60% diffuse mid intermediate ramus stenosis. 4. Normal left ventricular end-diastolic pressures. PLAN: We will continue aspirin 81 mg daily for the indefinite future as well as Plavix preferably for 12 months post intervention and we will stage the intervention of the obtuse marginal segment. MD RAMIRO Quiroz/Patrick /[id number] cc: - David Simms MD CBC (08/10/2016 4:30 AM)Only the most recent of 2 results within the time period is included. Component Value Range White Blood Cells 8.4 4.5-11.0 K/UL RBC 4.01 (L) 4.4-5.5 M/UL Hemoglobin 12.1 (L) 13.5-16.5 GM/DL Hematocrit 36.9 (L) 40-50 % MCV 91.9 80-100 FL MCH 30.2 26-34 PG MCHC 32.9 32.0-36.0 G/DL RDW 12.9 11-15 % Platelet Count 288 150-400 K/UL MPV 7.8 7-11 FL BASIC METABOLIC PANEL (08/10/2016 4:30 AM)Only the most recent of 2 results within the time period is included. Component Value Range Sodium 136 (L) 137-147 MMOL/L Potassium 4.5 3.5-5.1 MMOL/L Chloride 105 98-110 MMOL/L CO2 26 21-30 MMOL/L Anion Gap 5 3-12 Glucose 163 (H) 70-100 MG/DL Blood Urea Nitrogen 21 7-25 MG/DL Creatinine 1.07 0.4-1.24 MG/DL Calcium 9.0 8.5-10.6 MG/DL eGFR Non >60Comment: >60 mL/min The eGFR is not validated for use in drug dosing adjustments. Continue to use estimated creatinine clearance per dosing reference text. Please contact the Clinical Pharmacist for questions. eGFR >60Comment: >60 mL/min The eGFR is not validated for use in drug dosing adjustments. Continue to use estimated creatinine clearance per dosing reference text. Please contact the Clinical Pharmacist for questions. Specimen Blood POC ACTIVATED CLOTTING TIME (08/09/2016 1:59 PM)Only the most recent of 9 results within the time period is included. Component Value Range Activated Clotting Time 157 s LIVER FUNCTION PANEL (08/09/2016 8:45 AM) Component Value Range Total Bilirubin 0.4 0.3-1.2 MG/DL Bilirubin, Direct <0.1 <0.4 MG/DL Albumin 4.3 3.5-5.0 G/DL Alk Phosphatase 156 (H) 25-110 U/L AST (SGOT) 39 7-40 U/L ALT (SGPT) 83 (H) 7-56 U/L Total Protein 7.9 6.0-8.0 G/DL LIPID PROFILE (08/09/2016 8:45 AM) Component Value Range Cholesterol 204 (H) <200 MG/DL Triglycerides 137 <150 MG/DL HDL 48 >40 MG/DL LDL 126 (H) <100 MG/DL VLDL 27 MG/DL Non HDL Cholesterol 156Comment: MG/DL Calculated non-HDL Cholesterol (non-HDL-C) indirectly measures LDL-C, Lp(a), IDL-C, and VLDL-C. It is a surrogate marker for Apoprotein B. Non-HDL-C is a more accurate measure of atherogenic particle concentration than LDL-C in patients with hypertriglyceridemia (>200 mg/dL). This calculation is now recommended for evaluation and treatment of coronary heart disease according to the National Cholesterol Education Program Adult Treatment Protocol-III. See Holly et al. Am J. Cardiol. 2008, 101:3010-0609. The "goal" should be less than 130 mg/dL, but will vary according to risk factors.
[2016-08-12] MEDS ORDERED: RX-NITROGLYCERIN 0.4 MG TAB BTL 25'S SL ONE ×2 (13:22→13:30)
[2016-08-12 13:29] LABS: BASOPHILS % (AUTO) 0 % (0-10); EOSINOPHILS # (AUTO) 0.5 10^3/uL (0.0-0.3); EOSINOPHILS % (AUTO) 6 % (0-10); LYMPHOCYTES # (AUTO) 1.4 X 10^3 (1.0-4.0); LYMPHOCYTES % (AUTO) 20 % (12-44); MEAN CORPUSCULAR HEMOGLOBIN 31 PG (25-34); MEAN CORPUSCULAR HGB CONC 34 G/DL (32-36); MEAN CORPUSCULAR VOLUME 91 FL (80-99); MEAN PLATELET VOLUME 10.2 FL (7.4-10.4); MONOCYTES # (AUTO) 0.7 X 10^3 (0.0-1.0); MONOCYTES % (AUTO) 10 % (0-12); NEUTROPHILS # (AUTO) 4.5 X 10^3 (1.8-7.8); NEUTROPHILS % (AUTO) 63 % (42-75); PLATELET COUNT 340 10^3/uL (130-400); RED BLOOD COUNT 4.26 10^6/uL (4.35-5.85); RED CELL DISTRIBUTION WIDTH 12.5 % (10.0-14.5); WHITE BLOOD COUNT 7.1 10^3/uL (4.3-11.0)
[2016-08-12] MEDS ORDERED: ASPIRIN 81 MG CHEW (CHILDREN'S ASA) PO ONE (13:30)
[2016-08-12] MEDS: ASPIRIN 81 MG CHEW (CHILDREN'S ASA) ONE ×2 (13:30→13:34)
[2016-08-12 13:36] LABS: INR 0.9 (0.8-1.4); PROTHROMBIN TIME PATIENT 11.8 SEC (12.2-14.7)
[2016-08-12 13:45] LABS: ALANINE AMINOTRANSFERASE 66 U/L (0-55); ANION GAP 10 MMOL/L (5-14); ASPARTATE AMINO TRANSFERASE 36 U/L (5-34); BILIRUBIN,TOTAL 0.2 MG/DL (0.1-1.0); BLOOD UREA NITROGEN 26 MG/DL (7-18); BUN/CREATININE RATIO 23; CALCIUM 9.6 MG/DL (8.5-10.1); CARBON DIOXIDE 25 MMOL/L (21-32); CHLORIDE 103 MMOL/L (98-107); CREATININE SERUM 1.11 MG/DL (0.60-1.30); GFR ESTIMATED > 60; GLUCOSE 118 MG/DL (70-105); MAGNESIUM 2.1 MG/DL (1.8-2.4); POTASSIUM 4.6 MMOL/L (3.6-5.0); SODIUM 138 MMOL/L (135-145); TOTAL PROTEIN 7.8 G/DL (6.4-8.2)
--- NOTE | 2016-08-12 13:47 | ED Chest Pain ---
General Chief Complaint: Chest Pain Stated Complaint: CHEST PAIN Nursing Triage Note: AMBULATED TO ROOM 07 WITH COMPLAINTS OF CONTINOUS CHEST PAIN STARTING LAST NOC. RECENT STENTS PLACED AT ON TUESDAY. WAS SEEN IN THIS ER INITIALLY. Nursing Sepsis Screen: No Definite Risk Source: patient Exam Limitations: no limitations History of Present Illness Time seen by provider: 13:11 Initial Comments This 56-year-old gentleman presents to the emergency room with left-sided chest pain that started last night. It was more severe last night and was located beneath the left arm. The pain persists today and is more toward the anterior left chest. He also has had some headache and cough. Cough is dry. He denies fever. He has some nausea without vomiting. Breathing sometimes exacerbates the pain. He has a history of coronary artery disease and had stents placed 4 days ago at [facility]. He is scheduled to return in 3 weeks for additional stent placement. He had 2 stents placed in the RCA according to his medical record. He continues to smoke despite his illness. He reports feeling very fatigued. Allergies and Home Medications Allergies Coded Allergies: penicillin G (Verified Allergy, Severe, SWELLING, 12/23/11) Home Medications Amlodipine Besylate 10 Mg Tablet #30 10 MG PO DAILY Prescribed by: ANDREA LAO on 07/31/16 09 Aspirin 81 Mg Tablet. #60 81 MG PO DAILY Prescribed by: ANDREA LAO on 07/31/16 09 Atorvastatin Calcium 10 Mg Tablet #30 10 MG PO HS Prescribed by: ANDREA LAO on 07/31/16 09 Carvedilol 12.5 Mg Tablet #60 6.25 MG PO BID Prescribed by: ANDREA LAO on 07/31/16 09 Clopidogrel Bisulfate 75 Mg Tablet #30 75 MG PO DAILY Prescribed by: ANDREA LAO on 07/31/16 09 Lisinopril 20 Mg Tablet #30 20 MG PO DAILY Prescribed by: ANDREA LAO on 07/31/16 09 Nitroglycerin 0.4 Mg Tab.subl #30 0.4 MG SL 5XD PRN PRN CHEST PAIN Prescribed by: ANDREA LAO on 07/31/16 0920 [place] 3 Polyunsat Fatty Acids 1,000 Mg Cap #60 1,000 MG PO BID WITH MEALS Prescribed by: ANDREA LAO on 07/31/16 0909 Pantoprazole Sodium 40 Mg Granlarissa. #30 40 MG PO DAILY Prescribed by: ANDREA LAO on 07/31/16 0920 Review of Systems Constitutional: see HPI EENTM: No Symptoms Reported Respiratory: See HPI Cardiovascular: See HPI Gastrointestinal: See HPI Genitourinary: No Symptoms Reported Musculoskeletal: no symptoms reported Skin: no symptoms reported Psychiatric/Neurological: No Symptoms Reported Endocrine: No Symptoms Reported Past Hycawkb-Mtfjxy-Vbdmfz Hx Patient Social History Alcohol Use: Denies Use Recreational Drug Use: No Smoking Status: Current Everyday Smoker Type Used: Cigarettes 2nd Hand Smoke Exposure: No Recent Foreign Travel: No Contact w/Someone Who Travel: No Recent Infectious Disease Expo: No Recent Hopitalizations: No Immunizations Up To Date Tetanus Booster (TDap): Less than 5yrs Date of Influenza Vaccine: Dec 28, 2014 Seasonal Allergies Seasonal Allergies: No Surgeries HX Surgeries: Yes (hernia) Surgeries: Abdominal, Coronary Stent, Orthopedic Respiratory Hx Respiratory Disorders: No Cardiovascular Hx Cardiac Disorders: Yes (CARDIAC STENTS) Cardiac Disorders: Heart Attack, High Cholesterol, Hypertension Neurological Hx Neurological Disorders: Yes (MINI STROKES-SEVERAL) Neurological Disorders: TIA Reproductive System Hx Reproductive Disorders: No Sexually Transmitted Disease: No Genitourinary Hx Genitourinary Disorders: No Gastrointestinal Hx Gastrointestinal Disorders: Yes Gastrointestinal Disorders: Gastroesophageal Reflux Musculoskeletal Hx Musculoskeletal Disorders: No Endocrine Hx Endocrine Disorders: No HEENT HX ENT Disorders: No Loss of Vision: Denies Cancer Hx Cancer: No Psychosocial Hx Psychiatric Problems: No Integumentary HX Skin/Integumentary Disorder: No Blood Transfusions Hx Blood Disorders: No Family Medical History Significant Family History: Heart Disease, Hypertension Family Medial History: Arthritis 19 MOTHER ELEMENTARY SCHOOL SCIENCE TEACHER G8 SISTER FH: COPD (chronic obstructive pulmonary disease) Hypercholesterolemia 19 MOTHER Hypertension 19 MOTHER Physical Exam Vital Signs Vital Sign - Last 12Hours 08/12/16 13:08 Temp 97.8 Pulse 75 Resp 16 B/P 167/121 Pulse Ox 97 O2 Delivery Nasal Cannula O2 Flow Rate 2 Capillary Refill : Less Than 3 Seconds General Appearance: WD/WN Mild Distress HEENT: PERRL/EOMI Normal ENT Inspection Pharynx Normal Neck: Normal Inspection Respiratory: Chest Non Tender Lungs Clear Normal Breath Sounds No Accessory Muscle Use No Respiratory Distress Cardiovascular: Regular Rate, Rhythm No Edema No Murmur Gastrointestinal: Normal Bowel Sounds Non Tender Soft Extremity: Normal Inspection Non Tender No Calf Tenderness No Pedal Edema Neurologic/Psychiatric: Alert Oriented x3 No Motor/Sensory Deficits Normal 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/Affect rack maker II-XII Norm as Tested Skin: Normal Color Warm/Dry Progress/Results/Core Measures Results/Orders Lab Results Laboratory Tests Test 08/12/16 13:20 Range/Units Activated Partial Thromboplast Time 26 24-35 SEC Alanine Aminotransferase (ALT/SGPT) 66 H 0-55 U/L Albumin 4.0 3.2-4.5 G/DL Alkaline Phosphatase 162 H 40-136 U/L Anion Gap 10 5-14 MMOL/L Aspartate Amino Transf (AST/SGOT) 36 H 5-34 U/L BUN/Creatinine Ratio 23 Basophils # (Auto) 0.0 0.0-0.1 10^3/uL Basophils (%) (Auto) 0 0-10 % Blood Urea Nitrogen 26 H 7-18 MG/DL Calcium Level 9.6 8.5-10.1 MG/DL Carbon Dioxide Level 25 21-32 MMOL/L Chloride Level 103 98-107 MMOL/L Creatinine 1.11 0.60-1.30 MG/DL Eosinophils # (Auto) 0.5 H 0.0-0.3 10^3/uL Eosinophils (%) (Auto) 6 0-10 % Estimat Glomerular Filtration Rate > 60 Glucose Level 118 H 70-105 MG/DL Hematocrit 39 L 40-54 % Hemoglobin 13.2 L 13.3-17.7 G/DL INR Comment 0.9 0.8-1.4 Lymphocytes # (Auto) 1.4 1.0-4.0 X 10^3 Lymphocytes (%) (Auto) 20 12-44 % Magnesium Level 2.1 1.8-2.4 MG/DL Mean Corpuscular Hemoglobin 31 25-34 PG Mean Corpuscular Hemoglobin Concent 34 32-36 G/DL Mean Corpuscular Volume 91 80-99 FL Mean Platelet Volume 10.2 7.4-10.4 FL Monocytes # (Auto) 0.7 0.0-1.0 X 10^3 Monocytes (%) (Auto) 10 0-12 % Myoglobin 29.4 10.0-92.0 NG/ML Neutrophils # (Auto) 4.5 1.8-7.8 X 10^3 Neutrophils (%) (Auto) 63 42-75 % Platelet Count 340 130-400 10^3/uL Potassium Level 4.6 3.6-5.0 MMOL/L Prothrombin Time 11.8 L 12.2-14.7 SEC Red Blood Count 4.26 L 4.35-5.85 10^6/uL Red Cell Distribution Width 12.5 10.0-14.5 % Sodium Level 138 135-145 MMOL/L Total Bilirubin 0.2 0.1-1.0 MG/DL Total Protein 7.8 6.4-8.2 G/DL Troponin I < 0.30 <0.30 NG/ML White Blood Count 7.1 4.3-11.0 10^3/uL My Orders Orders-BILL APONTE MD Cbc With Automated Diff (08/12/16 13:21) Magnesium (08/12/16 13:21) Chest 1 View, Ap/Pa Only (08/12/16 13:21) Ekg Tracing (08/12/16 13:21) Cardiac Profile 1 (08/12/16 13:21) Comprehensive Metabolic Panel (08/12/16 13:21) Myoglobin Serum (08/12/16 13:21) Protime With Inr (08/12/16 13:21) Partial Thromboplastin Time (08/12/16 13:21) O2 (08/12/16 13:21) Monitor-Rhythm Ecg Trace Only (08/12/16 13:21) Lipid Panel (08/13/16 06:00) Aspirin Chewable Tablet (Baby Aspirin Ch (08/12/16 13:30) Rx-Nitroglycerin Sl Tabs (Rx-Nitrostat S (08/12/16 13:30) Saline Lock/Iv-Start (08/12/16 13:21) Aspirin Chewable Tablet (Baby Aspirin Ch (08/12/16 13:22) Rx-Nitroglycerin Sl Tabs (Rx-Nitrostat S (08/12/16 13:22) Nitroglycerin Sublingual (Nitrostat Sub (08/12/16 14:00) Nitroglycerin Ointment (Nitrobid Ointme (08/12/16 14:15) Ketorolac Injection (Toradol Injection) (08/12/16 14:15) Medications Given in ED Current Medications Medications Dose Ordered Sig/Mckenzie Route Start Time Stop Time Status Last Admin Dose Admin Aspirin 324 mg ONCE ONCE PO 08/12/16 13:30 08/12/16 13:31 DC 08/12/16 13:32 324 MG Ketorolac Tromethamine 15 mg ONCE ONCE IVP 08/12/16 14:15 08/12/16 14:16 DC 08/12/16 14:21 15 MG Nitroglycerin 0.4 mg Q5M PRN SL 08/12/16 14:00 08/12/16 14:12 0.4 MG Nitroglycerin 0.4 mg UD ONCE SL 08/12/16 13:30 08/12/16 13:31 DC 08/12/16 13:32 0.4 MG Nitroglycerin 1 inch ONCE ONCE TOP 08/12/16 14:15 08/12/16 14:16 DC 08/12/16 14:21 1 INCH Vital Signs/I&O Vital Sign - Last 12Hours 08/12/16 08/12/16 13:08 13:22 Temp 97.8 Pulse 75 Resp 16 B/P 167/121 Pulse Ox 97 O2 Delivery Nasal Cannula Nasal Cannula O2 Flow Rate 2 2 Blood Pressure Mean: 136 Progress Note #1: Time: 14:20 Progress Note Patient had significant improvement but not resolution of pain after 2 doses of nitroglycerin. Case was reviewed with Dr. Lao who would like to patient admitted. He requested placement of nitroglycerin patch/paced. Patient requested medication for his headache. Toradol was ordered. Progress Note #2: Time: 14:28 Progress Note Patient is requesting something for "heartburn". We will allow him to try a GI cocktail. Progress Note #3: Time: 14:33 Progress Note Patient had previously complained of some radiation of his chest pain into the left arm. Pain has intensified despite receiving a Toradol. Reexamination reveals tender musculature in the left trapezius and left deltoid regions. Fentanyl will be ordered for further pain management. Patient has difficulty moving his left arm due to pain in the arm and left neck with range of motion. Progress Note #4: Time: 15:16 Progress Note Patient's pain improved with fentanyl. He was transferred to the cardiac step down unit. ECG Initial ECG Impression Date: Aug 12, 2016 Initial ECG Impression Time: 13:13 Initial ECG Rate: 73 Initial ECG Rhythm: Normal Sinus Initial ECG Intervals: Normal Initial ECG Impression: Normal Comment Normal sinus rhythm with no ST elevation or depression. No abnormal and referrals or axis deviation. Diagnostic Imaging Diagonstic Imaging: Xray Plain Films/CT/US/NM/MRI: chest Comments Chest x-ray viewed by me and report reviewed. See report below: NAME: EZEQUIEL VITALE [facility] REC#: [id number] PT STATUS: REG ER : 1960 PHYSICIAN: BILL APONTE MD ADMIT DATE: 08/12/16/ER Draft Date of Exam:08/12/16 CHEST 1 VIEW, AP/PA ONLY INDICATION: New-onset chest pain following recent cardiac catheterization. DISCUSSION: Single portable upright view of the chest was obtained, comparison 07/31/2016. No adverse interval change. The heart and lungs are normal. No osseous abnormality. IMPRESSION: 1. Stable negative chest. Dictated on workstation # [id number] Dict: 08/12/16 1354 Trans: 08/12/16 1357 [facility] [id number] Interpreted by: DEANNE HAGEN MD Electronically signed by: Departure Communication Time/Spoke to Admitting Phy: 14:05 Communication Case reviewed with Dr. Lao. Since the patient is still having pain despite nitroglycerin administration, he would like the patient admitted and placed on nitroglycerin patch/paced. He plans to see the patient after clinic. Impression Impression: Primary Impression: Chest pain Qualified Code: R07.9 - Chest pain, unspecified Additional Impression: Coronary artery disease Qualified Code: I25.10 - Atherosclerotic heart disease of ambler coronary artery without angina pectoris Disposition: ADMITTED INPATIENT Condition: Improved Decision to Admit Reason: Admit from ER (General) Decision to Admit/Date: Aug 12, 2016 Time/Decision to Admit Time: 14:05 Departure-Patient Inst. Referrals: ANDRES RABAGO DO (PCP/Family) Primary Care Physician BILL APONTE MD Aug 12, 2016 13:47
[2016-08-12 13:51] LABS: MYOGLOBIN SERUM 29.4 NG/ML (10.0-92.0)
[2016-08-12] MEDS: NITROGLYCERIN SUBLINGUAL 0.4 MG TAB (NITROSTAT) SL PRN ×2 (13:53→14:12)
--- NOTE | 2016-08-12 13:58 | Diagnostic Imaging Report ---
INDICATION: New-onset chest pain following recent cardiac catheterization. DISCUSSION: Single portable upright view of the chest was obtained, comparison 07/31/2016. No adverse interval change. The heart and lungs are normal. No osseous abnormality. IMPRESSION: 1. Stable negative chest. Dictated by: Dictated on workstation # [id number]
[2016-08-12] MEDS ORDERED: KETOROLAC 30 MG/ML VIAL IVP ONE (14:15)
[2016-08-12] MEDS ORDERED: NITROGLYCERIN 2% OINT 1 GM UNIT DOSE PACKET TOP ONE (14:15)
[2016-08-12] MEDS ORDERED: LIDOCAINE 2% VISCOUS 15 ML UDC PO ONE (14:30)
[2016-08-12] MEDS ORDERED: ANTACID SUSP 30 ML UDC (MYLANTA) PO ONE (14:30)
[2016-08-12] MEDS ORDERED: fentaNYL INJECTION 100 MCG/2 ML AMP IVP ONE (14:45)
[2016-08-12] MEDS ORDERED: ATOR10TA66 PO (15:19)
[2016-08-12] MEDS ORDERED: CLOP75TA28 PO (15:19)
[2016-08-12] MEDS ORDERED: AMLO10TA2 PO (15:19)
[2016-08-12] MEDS ORDERED: ASPI-983 PO (15:19)
[2016-08-12] MEDS ORDERED: LISI-552 PO (15:19)
[2016-08-12] MEDS ORDERED: OMEG-160 PO (15:58)
[2016-08-12] MEDS ORDERED: NITR0.4T SL (15:58)
[2016-08-12] MEDS ORDERED: CARV12.53 PO (15:58)
[2016-08-12] MEDS ORDERED: PANT40TA2 PO (15:58)
[2016-08-12 16:00] VITALS: BP 127/80
--- NOTE | 2016-08-12 16:18 | Consultation-Cardiology ---
HPI-Cardiology Cardiology Consultation Date of Consultation 08/12/16 Date of Admission Indication: chest pain HPI 56 years old gentleman with history of coronary artery disease, severe disease, underwent staged intervention with stenting of the right coronary artery with good results, has severe disease of the circumflex artery which was staged to be done in 2 weeks. He was discharged home 2 days ago, felt better the first day then he started having chest pain, took nitroglycerin and improve his pain, in the evening had another episode of chest pain persisted. Described as dull achiness in the left side. Came in today not feeling well, having groin pain and chest discomfort, felt better after sublingual nitroglycerin. Home Medications & Allergies Allergies: Coded Allergies: penicillin G (Verified Allergy, Severe, SWELLING, 12/23/11) Home Medication List Reviewed: Yes CDF-Gofbho-Cxpeif Hx Patient Social History Marital Status: Employed/Student: employed Alcohol Use: Denies Use Recreational Drug Use: No Smoking Status: Current Everyday Smoker Type Used: Cigarettes 2nd Hand Smoke Exposure: No Recent Foreign Travel: No Recent Infectious Disease Expo: No Recent Hopitalizations: No Immunizations Up To Date Tetanus Booster (TDap): Less than 5yrs Date of Influenza Vaccine: Dec 28, 2014 Past Medical History past medical history as discussed below Family Medical History Significant Family History: Heart Disease, Hypertension Family History: 19 MOTHER Arthritis Hypertension Hypercholesterolemia G8 SISTER MOLDER OPERATOR Relation not specified for: FH: COPD (chronic obstructive pulmonary disease) Constitutional: no symptoms reported see HPI EENTM: no symptoms reported see HPI Respiratory: see HPINo cough, dyspnea on exertionNo hemoptysis, No orthopnea , No phlegm, No short of breath, No stridor, No wheezing, No other Cardiovascular: No no symptoms reported, see HPI chest painNo edema, No Hx of Intervention, No palpitations, No syncope, No vascular heart diseas, No other Gastrointestinal: no symptoms reported see HPI Genitourinary: no symptoms reported see HPI Musculoskeletal: no symptoms reported see HPI Skin: no symptoms reported see HPI Psychiatric/Neurological: No Symptoms Reported See HPI Reviewed Test Results Reviewed Test Results Lab Laboratory Tests Test 08/12/16 13:20 Range/Units Activated Partial Thromboplast Time 26 24-35 SEC Alanine Aminotransferase (ALT/SGPT) 66 H 0-55 U/L Albumin 4.0 3.2-4.5 G/DL Alkaline Phosphatase 162 H 40-136 U/L Anion Gap 10 5-14 MMOL/L Aspartate Amino Transf (AST/SGOT) 36 H 5-34 U/L BUN/Creatinine Ratio 23 Basophils # (Auto) 0.0 0.0-0.1 10^3/uL Basophils (%) (Auto) 0 0-10 % Blood Urea Nitrogen 26 H 7-18 MG/DL Calcium Level 9.6 8.5-10.1 MG/DL Carbon Dioxide Level 25 21-32 MMOL/L Chloride Level 103 98-107 MMOL/L Creatinine 1.11 0.60-1.30 MG/DL Eosinophils # (Auto) 0.5 H 0.0-0.3 10^3/uL Eosinophils (%) (Auto) 6 0-10 % Estimat Glomerular Filtration Rate > 60 Glucose Level 118 H 70-105 MG/DL Hematocrit 39 L 40-54 % Hemoglobin 13.2 L 13.3-17.7 G/DL INR Comment 0.9 0.8-1.4 Lymphocytes # (Auto) 1.4 1.0-4.0 X 10^3 Lymphocytes (%) (Auto) 20 12-44 % Magnesium Level 2.1 1.8-2.4 MG/DL Mean Corpuscular Hemoglobin 31 25-34 PG Mean Corpuscular Hemoglobin Concent 34 32-36 G/DL Mean Corpuscular Volume 91 80-99 FL Mean Platelet Volume 10.2 7.4-10.4 FL Monocytes # (Auto) 0.7 0.0-1.0 X 10^3 Monocytes (%) (Auto) 10 0-12 % Myoglobin 29.4 10.0-92.0 NG/ML Neutrophils # (Auto) 4.5 1.8-7.8 X 10^3 Neutrophils (%) (Auto) 63 42-75 % Platelet Count 340 130-400 10^3/uL Potassium Level 4.6 3.6-5.0 MMOL/L Prothrombin Time 11.8 L 12.2-14.7 SEC Red Blood Count 4.26 L 4.35-5.85 10^6/uL Red Cell Distribution Width 12.5 10.0-14.5 % Sodium Level 138 135-145 MMOL/L Total Bilirubin 0.2 0.1-1.0 MG/DL Total Protein 7.8 6.4-8.2 G/DL Troponin I < 0.30 <0.30 NG/ML White Blood Count 7.1 4.3-11.0 10^3/uL Physical Exam Vital Signs Vital Sign - Last 12Hours 08/12/16 13:08 Temp 97.8 Pulse 75 Resp 16 B/P 167/121 Pulse Ox 97 O2 Delivery Nasal Cannula O2 Flow Rate 2 Capillary Refill : Less Than 3 Seconds General Appearance: No Apparent Distress WD/WN Eyes: Bilateral Eye EOMI, Bilateral Eye Normal Inspection, Bilateral Eye PERRL HEENT: PERRL/EOMI TMs Normal Normal ENT Inspection Pharynx Normal Neck: Full Range of Motion Normal Inspection Non Tender Supple Carotid Bruit Respiratory: Chest Non Tender Lungs Clear Normal Breath Sounds No Accessory Muscle Use No Respiratory Distress Cardiovascular: Regular Rate, Rhythm No Edema No Gallop No JVD No Murmur Normal Peripheral Pulses Gastrointestinal: Normal Bowel Sounds No Organomegaly No Pulsatile Mass Non Tender Soft Back: Normal Inspection No CVA Tenderness No Vertebral Tenderness Extremity: Normal Capillary Refill Normal Inspection Normal Range of Motion Non Tender No Calf Tenderness No Pedal Edema Neurologic/Psychiatric: Alert Oriented x3 No Motor/Sensory Deficits Normal Mood/Affect Skin: Normal Color Warm/Dry Lymphatic: No Adenopathy A/P-Cardiology Admission Diagnosis unstable angina Coronary artery disease Hypertension Hyperlipidemia Assessment/Plan CP, resembling angina, status post stenting of a totally occluded right coronary artery done 2 days ago. I will start isosorbide and evaluate his tolerance, patient has history of headache, if he couldn't tolerate it due to recurrent headache I will use Ranexa. EKG did not show any acute changes, monitor overnight and monitor his cardiac enzymes. Coronary artery disease, cardiac catheterization showed total occlusion of the right coronary artery, severe stenosis at the proper circumflex artery, ostial circumflex stenosis, the LAD had moderate disease, IVUS showed 60 percent stenosis, underwent stenting of the right coronary artery with excellent results , being staged for intervention on the circumflex artery at a later point with Dr. Simms at . Echocardiogram showed normal LV function, questionable healed vegetation on the aortic valve. Functioning normally. Continue to monitor. Hypertension, good control, continue on current medications. Hyperlipidemia/hypertriglyceridemia, restart home medications and monitor Headache- complains of intermittent PAEZ over the past month. Could be secondary to uncontrolled HTN, evaluate his tolerance to isosorbide Tobaccoism- patient educated on the importance of smoking cessation Elevated LFT's- continue to monitor. GERD with history of gastritis. restart his PPI History of methamphetamine use History of hiatal hernia repair Clinical Quality Measures AMI/AHF: ASA po Prior to arrival: ANDREA David MD Aug 12, 2016 16:18
[2016-08-12] MEDS ORDERED: ATOR40TA70 PO (16:20)
[2016-08-12] MEDS ORDERED: PROM25TA14 PO (16:20)
[2016-08-12] MEDS ORDERED: ZOLP10TA5 PO (16:20)
[2016-08-12] MEDS ORDERED: ZOLPIDEM 5 MG (AMBIEN) TAB PO PRN (16:45)
[2016-08-12] MEDS ORDERED: NON-FORMULARY MEDICATION 1 EA EA (Zolpidem Tartrate 10 MG) PO PRN (16:45)
[2016-08-12] MEDS: OMEGA 3 (FISH OIL) 1000 MG CAP PO SCH (17:28)
[2016-08-12] MEDS: ISOSORBIDE MONONITRATE 30 MG (IMDUR) TAB PO SCH (17:28)
[2016-08-12] MEDS ORDERED: FLU TRIvalent (5 YOA+) 2016-17 (AFLURIA) 0.5 ML IM ONE (18:00)
[2016-08-12 20:15] VITALS: BP 126/74
[2016-08-12] MEDS ORDERED: ASPIRIN E.C. 81 MG (ECOTRIN) TAB PO SCH (21:00)
[2016-08-12] MEDS ORDERED: ATORVASTATIN 40 MG (LIPITOR) TABLET PO SCH (21:00)
[2016-08-12] MEDS ORDERED: CLOPIDOGREL 75 MG (PLAVIX) TABLET PO SCH (21:00)
[2016-08-12] MEDS: CARVEDILOL 6.25 MG (COREG) TAB PO SCH (21:08)
[2016-08-13] VITALS (16 sets, daily range): BP systolic 95–159; BP diastolic 49–92
[2016-08-13 04:12] LABS: MEAN PLATELET VOLUME 10.3 FL (7.4-10.4); RED BLOOD COUNT 3.8 10^6/uL (4.35-5.85); RED CELL DISTRIBUTION WIDTH 12.6 % (10.0-14.5); WHITE BLOOD COUNT 5.8 10^3/uL (4.3-11.0)
[2016-08-13 04:39] LABS: ANION GAP 8 MMOL/L (5-14); BLOOD UREA NITROGEN 30 MG/DL (7-18); BUN/CREATININE RATIO 26; CALCIUM 9.1 MG/DL (8.5-10.1); CARBON DIOXIDE 26 MMOL/L (21-32); CHLORIDE 105 MMOL/L (98-107); CHOLESTEROL 147 MG/DL (< 200); CREATININE SERUM 1.17 MG/DL (0.60-1.30); DIRECT LDL 83 MG/DL (1-129); GFR ESTIMATED > 60; GLUCOSE 106 MG/DL (70-105); POTASSIUM 4.8 MMOL/L (3.6-5.0); SODIUM 139 MMOL/L (135-145); TRIGLYCERIDES 182 MG/DL (<150); VLDL CHOLESTEROL 36 MG/DL (5-40)
[2016-08-13 04:47] LABS: TROPONIN I < 0.30 NG/ML (<0.30)
[2016-08-13] MEDS: OMEGA 3 (FISH OIL) 1000 MG CAP PO SCH ×2 (06:34→17:06)
[2016-08-13] MEDS ORDERED: PANTOPRAZOLE 40 MG (PROTONIX) TAB PO SCH (07:00)
[2016-08-13] MEDS: ISOSORBIDE MONONITRATE 30 MG (IMDUR) TAB PO SCH (08:15)
[2016-08-13] MEDS: CARVEDILOL 6.25 MG (COREG) TAB PO SCH (08:15)
[2016-08-13] MEDS ORDERED: lisINopril 20 MG (ZESTRIL) TAB PO SCH (09:00)
[2016-08-13] MEDS ORDERED: amLODIPine 10 MG (NORVASC) TAB PO SCH (09:00)
[2016-08-13] MEDS: NITROGLYCERIN SUBLINGUAL 0.4 MG TAB (NITROSTAT) SL PRN ×4 (09:14→18:09)
[2016-08-13] MEDS ORDERED: ENOXAPARIN 40 MG/0.4 ML (LOVENOX) SYR SC SCH (10:00)
[2016-08-13] MEDS ORDERED: ACETAMINOPHEN 325 MG TABLET/CAPLET (TYLENOL) PO NR (10:16)
[2016-08-13] MEDS ORDERED: NITROGLYCERIN DRIP 25 MG/D5W 250 ML IV SCH (11:00)
[2016-08-13] MEDS ORDERED: ENOXAPARIN 80 MG/0.8 ML (LOVENOX) SYR SC SCH (12:15)
--- NOTE | 2016-08-13 16:41 | Cardiology Progress Note ---
Cardiology SOAP Progress Note Subjective: headache and mild chest discomfort Objective: I&O/Vital Signs Vital Sign - Last 12Hours 08/13/16 08/13/16 08/13/16 08/13/16 07:00 08:14 08:22 09:18 Temp 96.5 Pulse 62 75 Resp 12 B/P 134/84 95/55 Pulse Ox 98 O2 Delivery Room Air Room Air Room Air 08/13/16 08/13/16 08/13/16 08/13/16 10:18 10:23 10:33 11:01 Pulse 73 Resp 14 B/P 131/77 105/57 119/78 121/80 Pulse Ox 97 O2 Delivery Room Air 08/13/16 08/13/16 08/13/16 08/13/16 12:00 12:38 13:00 16:12 Temp 97.3 98.3 Pulse 66 60 Resp 20 B/P 99/49 Pulse Ox 95 O2 Delivery Room Air Room Air 08/13/16 16:13 O2 Delivery Room Air Intake and Output 08/13/16 00:00 Intake Total 300 ml Output Total 0 ml Balance 300 ml Weight (Pounds): 160 Weight (Ounces): 0.0 Weight (Calculated Kilograms): [id number] Constitutional: No appears stated age, No AAO x 3, No apparent distress, No PERRL, No well-developed, No well-nourished, No other Respiratory: No accessory muscle use, No respiratory distress, No chest tender , No chest expansion is symmetric, No chest is bilaterally symmetric, No lungs clear to percussion, No lungs clear to auscultation, No crackles, No rhonchi, No rales, No stridor, No wheezing, No pleural rub, No other Cardiovascular: No regular rate-rhythm, No irregularly irregular, No extra beats, No parasternal heave is noted, No JVD, No edema, No bradycardia, No tachycardia, No point of maximal impulse, No cardiac thrills are palpable, No S1 and S2, No gallop/S3, No gallop/S4, No diastolic murmur, No systolic murmur, No friction rub, No click, No other Gastrointestional: No tender, No soft, No round, No distended, No pulsatile mass, No organomegaly, No guarding, No rebound, No tenderness, No hernia, No mass, No audible bowel sounds, No abnormal bowel sounds, No abdominal bruits, No spleenomegaly, No other Extremities: No normal range of motion, No non-tender, No normal inspection, No pedal edema, No calf tenderness, No normal capillary refill, No pelvis stable , No calf tenderness, No inflammation, No pedal edema, No slow capillary refill , No swelling, No other, No abrasion, No clubbing, No cyanosis, No ecchymosis, No laceration, No no lower extremity edema bilateral, No significant edema, No tenderness, No wound Neurologic/Psychiatric: No plug machine operator II-XII nml as tested, No no motor/sensory deficits, No alert, No normal mood/affect, No oriented x 3, No abnormal cerebellar tests, No abnormal plug machine operator II-XII, No abnormal gait, No aphasia, No EOM palsy, No facial droop, No motor weakness, No sensory deficit, No depressed affect, No disoriented x 3, No other, No grossly intact, No power is 5/5 both on sides Skin: No normal color, No warm/dry, No cyanosis, No cool, No diaphoresis, No damp, No ecchymosis, No jaundice, No mottled, No pallor, No rash, No tattoos/ piercings, No ulcerations, No rash on exposed areas, No ulcerations on exposed areas, No other Results/Procedures: Labs Laboratory Tests 08/12/16 21:46: Troponin I < 0.30 08/13/16 03:50: Troponin I < 0.30, Anion Gap 8, BUN/Creatinine Ratio 26, Blood Urea Nitrogen 30H , Calcium Level 9.1, Carbon Dioxide Level 26, Chloride Level 105, Cholesterol Level 147, Creatinine 1.17, Estimat Glomerular Filtration Rate > 60, Glucose Level 106H, HDL Cholesterol 35L, Hematocrit 35L, Hemoglobin 11.7L, LDL Cholesterol Direct 83, Mean Corpuscular Hemoglobin 31, Mean Corpuscular Hemoglobin Concent 34, Mean Corpuscular Volume 92, Mean Platelet Volume 10.3, Platelet Count 300, Potassium Level 4.8, Red Blood Count 3.80L, Red Cell Distribution Width 12.6, Sodium Level 139, Triglycerides Level 182H, VLDL Cholesterol 36, White Blood Count 5.8 08/13/16 09:59: Troponin I < 0.30 08/13/16 15:35: Troponin I < 0.30 A/P: Assessment/Dx: prolonged chest pain refractory to IV nitroglycerin. coronary artery disease status post-PCI. Plan: this is a 56-year-old gentleman with history significant for chronic total occlusion of the RCA which was treated at with PCI. The patient also has severe stenosis in the left circumflex artery which was supposed to be a staged PCI. The patient presented with prolonged episode of chest pain which still continues. His troponins are negative. EKG also does not reveal any significant ST deviation. I have spoken to the patient and will call [facility] and transferred the patient for staged PCI to the left circumflex artery which should be done earlier due to his prolonged chest pain episode. He will continue on aspirin and Plavix. We will increase the dose of beta tan. He will also be on an PEDRO inhibitor and statin. Clinical Quality Measures AMI/AHF: ASA po Prior to arrival: Joe Arias MD Aug 13, 2016 16:40
[2016-08-13] MEDS ORDERED: CARVEDILOL 6.25 MG (COREG) TAB PO NR (17:00)
[2016-08-13] MEDS ORDERED: ACETAMINOPHEN 325 MG TABLET/CAPLET (TYLENOL) PO ONE (18:15)
[2016-08-13] MEDS ORDERED: CARVEDILOL 12.5 MG (COREG) TABLET PO SCH (21:00)
--- NOTE | 2016-08-25 10:18 | Cardiology Discharge Summary ---
Diagnosis/Chief Complaint Date of Admission Aug 13, 2016 at 13:18 Date of Discharge Aug 13, 2016 at 18:40 Admission Diagnosis Unstable angina Final/Discharge Diagnosis Unstable angina Chief Complaint/HPI Chief Complaint/HPI This is a 56-year-old gentleman with history of coronary artery disease. Chronic total occlusion of the RCA was intervened at [facility]. Patient has severe left circumflex artery stenosis which was planned as a staged procedure. Patient presents with prolonged episode of chest pain. Discharge Summary Procedures None. Discharge Physical Examination Stable Hospital Course Patient continued to have mild chest discomfort even on nitroglycerin infusion. Therefore I discussed with [facility] and transferred him for PCI to left circumflex artery. Discussion & Recommendations Discussion Transferred to [facility] for PCI to left circumflex artery. Follow up appt.: Dr. Lao Dicharge Diet: Cardiac Diet Activity as Tolerated: Yes Home Medications Reviewed patient Home Medication Reconciliation Form Discharge Home Medications: Reviewed and agree with Discharge Medication list on patient's Discharge Instruction sheet Condition at discharge Guarded Instructions to patient/family Follow-up with Dr. Lao after PCI and [facility]. Clinical Quality Measures AMI/AHF: ASA po Prior to arrival: No DVT/VTE Risk/Contraindication: Risk Factor Score Per Nursin RFS Level Per Nursing on Admit: 2=Moderate Joe HINDS MD Aug 25, 2016 10:18
== END 2016-08-13 18:40 | disposition short-term general hospital (02) | DRG 303 ==
LOC: EDUNIT# 13:08 → ER 13:10 → UNDOADMOB 14:17 → ICU 14:17 → INTOOBSV 08-13 13:18 → OBSVTOIN 08-13 13:18
PROVIDERS: ADMIT Internal Medicine Cardiovascular Disease; ATTEND Internal Medicine Cardiovascular Disease
DX: I25.110 Atherosclerotic heart disease of native coronary artery with unstable angina pectoris (principal); I10 Essential (primary) hypertension; E78.5 Hyperlipidemia, unspecified; E78.1 Pure hyperglyceridemia; R51 Headache; F17.210 Nicotine dependence, cigarettes, uncomplicated; R94.5 Abnormal results of liver function studies; K21.9 Gastro-esophageal reflux disease without esophagitis; F15.21 Other stimulant dependence, in remission; I25.2 Old myocardial infarction; Z95.5 Presence of coronary angioplasty implant and graft; Z86.73 Personal history of transient ischemic attack (TIA), and cerebral infarction without residual deficits
CPT/HCPCS: 36415; 71010; 80048; 80053; 80061; 83735; 83874; 84484; 85025; 85027; 85610; 85730; 93005; 93041; 96374; 96375; G0378

== ENCOUNTER 2016-08-30 19:55 | Inpatient (IN) | payer OTHER ==
[~2016-08-30] VITALS: Ht 175.3 cm; Wt 77.7 kg
[~2016-08-30 19:55] MED LIST changes: +ATOR40TA70 PO; +OMEG-160 PO; +PANT40TA2 PO; +PROM25TA14 PO; +ZOLP10TA5 PO
--- OUTSIDE RECORDS SUMMARY | 2016-08-30 20:01 | XMS REPORT | Continuity of Care Document ---
Author Author [facility] Organization [facility] Address Unknown Phone Unavailable Care Team Providers Care Argon Tester Name Role Phone SolitarioSilver bianchi PCP [phone] Source Comments Some departments are not documenting in the electronic medical record. If you do not see the information that you expected, contact Release of Information in the Health Information Management department at [phone] for further assistance in locating additional records.[facility] Active Allergies and Adverse Reactions Allergen [...] mouth Active ZESTRIL) 20 mg tablet daily. atorvastatin (LIPITOR) 40 Take 1 Tab by mouth at 90 Tab 3 08/10/19 Active mg tablet bedtime daily. 17 nitroglycerin (NITROSTAT) Place 1 Tab under tongue 25 Tab 3 08/10/19 Active 0.4 mg tablet every 5 minutes as needed 17 for Chest Pain. Max of 3 tablets, call 911. isosorbide mononitrate SR Take 1 Tab by mouth 90 Tab 3 08/16/19 Active (IMDUR) 60 mg tablet daily. 17 clopiDOGrel (PLAVIX) 75 Take 75 mg by mouth Active mg tablet daily. fish oil- omega 3-DHA/EPA Take 1 Cap by mouth Active 300/1,000 mg capsule daily. omeprazole (PRILOSEC OTC) Take 1 Tab by mouth 90 Tab 3 08/16/19 Active 20 mg tablet daily. 17 atorvastatin (LIPITOR) 10 Take 10 mg by mouth at 08/10/19 Discontin mg tablet bedtime daily. 17 ued clopiDOGrel (PLAVIX) 75 Take 75 mg by mouth 08/10/19 Discontin mg tablet daily. 17 ued nitroglycerin (NITROSTAT) Place 0.4 mg under tongue 08/10/19 Discontin 0.4 mg tablet every 5 minutes as needed 17 ued for Chest Pain. Max of 3 tablets, call 911. pantoprazole DR Take 40 mg by mouth 08/16/19 Discontin (PROTONIX) 40 mg tablet daily. 17 ued DOCOSAHEXANOIC ACID/EPA Take 1,000 mg by mouth 08/16/19 Discontin (FISH OIL PO) twice daily. 17 ued clopiDOGrel (PLAVIX) 75 Take 1 Tab by mouth 90 Tab 3 08/10/19 Discontin mg tablet daily. 17 17 ued Active Problems Problem Noted Date Unstable angina ([facility]) 08/13/2016 Coronary artery disease of [place] artery of [place] heart with stable angina 08/09/2016 pectoris ([facility]) Overview: 07/29/16: heart cath ([place], [place]) - total occlusion of the right [...] 08/23/2016 Hospital Cardiology David Simms MD Encounter 08/23/2016 Surgery Cardiology David Simms MD Percutaneous Coronary Intervention Circumflex/Obtuse Marginal Artery 08/22/2016 Telephone General Internal Medicine Leah Shepherd MD Results 08/14/2016 Surgery Cardiology Melisa Ortiz MD Left Heart Catheterization With Ventriculogram 08/13/2016 [facility] Ayo King MD Unstable angina (HCC) - Encounter Shayy Murillo MD 08/16/2016 Gerson Lundy MD 08/12/2016 Telephone Cardiology Hayden Holly RN Chest Pain 08/10/2016 Pre-Procedure Cardiology Whitney Monae RN Pre-Procedure Instructions Instructions - Staged PCI of circ/OM 3/6 08/09/2016 Office Visit Cardiology David Simms MD New Patient - RUBBER TRIMMER RCA/Circ 08/09/2016 Hospital Cardiology David Simms MD Coronary artery disease - Encounter of [place] artery of 08/10/2016 [place] heart with stable angina pectoris (HCC) 08/09/2016 Surgery Cardiology David Simms MD Chronic Total Occlusion of Right Coronary Artery and Circumflex Percutaneous Intervention 08/08/2016 Pre-Admit Cardiology Linda Marroquin APRN-C Orders Only 08/04/2016 Telephone Cardiology Anastasia Coffey RN Patient Instructions 08/03/2016 Pre-Procedure Cardiology Anastasia Coffey RN Cath Pre- Procedure Instructions Instructions - RUBBER TRIMMER - LVCORS +/- (08/09 - MAW) 08/03/2016 [...] Vital Sign Reading Time Taken Blood Pressure 124/73 08/16/2016 1:06 PM COMMERCIAL ADMINISTRATOR Pulse 68 08/16/2016 1:06 PM COMMERCIAL ADMINISTRATOR Temperature 36.9 C (98.5 F) 08/16/2016 1:06 PM COMMERCIAL ADMINISTRATOR Respiratory Rate - - Height 1.75 m (5' 8.9") 08/16/2016 12:19 PM COMMERCIAL ADMINISTRATOR Weight 72.5 kg (159 lb 13.3 oz) 08/16/2016 12:19 PM COMMERCIAL ADMINISTRATOR Body Mass Index 23.67 08/16/2016 12:19 PM COMMERCIAL ADMINISTRATOR Oxygen Saturation 97% 08/16/2016 1:06 PM COMMERCIAL ADMINISTRATOR Plan of Care Date Type Specialty Providers Description 11/08/2016 Appointment Cardiology David Simms MD [address] [facility] [address] [place] [address] [phone] (Fax) Health Maintenance Due Date Last Done Comments Hepatitis C Screening 1960 Physical (Comprehensive) 1968 Exam Pertussis Vaccine 1972 Tetanus Vaccine 1978 Colorectal Cancer 2011 Screening Influenza Vaccine 02/18/2017 Procedures from Last 3 Months Procedure Name Priority Date/Time Associated Diagnosis Comments ECG-SCAN 08/21/2016 Results for this 2:38 PM COMMERCIAL ADMINISTRATOR procedure are in the results section. ECG UNCONFIRMED-SCAN 08/18/2016 Results for this 2:45 PM COMMERCIAL ADMINISTRATOR procedure are in the results section. TELEMETRY STRIPS-SCAN 08/18/2016 Results for this 2:27 PM COMMERCIAL ADMINISTRATOR procedure are in the results section. PROCEDURE RECORD-SCAN 08/18/2016 Results for this 2:20 PM COMMERCIAL ADMINISTRATOR procedure are in the results section. ECG-SCAN 08/12/2016 Results for this 9:18 AM COMMERCIAL ADMINISTRATOR procedure are in the results section. ECG-SCAN 08/12/2016 Results for this 9:18 AM COMMERCIAL ADMINISTRATOR procedure are in the results section. TELEMETRY STRIPS-SCAN 08/11/2016 Results for this 11:29 AM COMMERCIAL ADMINISTRATOR procedure are in the results section. PROCEDURE RECORD-SCAN 08/11/2016 Results for this 11:28 AM COMMERCIAL ADMINISTRATOR procedure are in the results section. ECG UNCONFIRMED-SCAN 08/11/2016 Results for this 11:10 AM COMMERCIAL ADMINISTRATOR procedure are in the results section. ECG UNCONFIRMED-SCAN 08/11/2016 Results for this 11:10 AM COMMERCIAL ADMINISTRATOR procedure are in the results section. ECG-SCAN 08/11/2016 Results for this 11:09 AM COMMERCIAL ADMINISTRATOR procedure are in the results section. Results from Last 3 Months ECG-SCAN (08/21/2016 2:38 PM) Narrative Ordered by an unspecified provider. ECG UNCONFIRMED-SCAN (08/18/2016 2:45 PM) Narrative Ordered by an unspecified provider. TELEMETRY STRIPS-SCAN (08/18/2016 2:27 PM) Narrative Ordered by an unspecified provider. PROCEDURE RECORD-SCAN (08/18/2016 2:20 PM) Narrative Ordered by an unspecified provider. 2-D + DOPPLER ECHOCARDIOGRAM (08/16/2016 12:19 PM) Component Value Range BSA 1.88 m2 ECHO EF 60 % Referring Provider Ayo King LVIDD 4.2 4.2-5.9 cm LVIDS 3.0 cm IVS 1.8 0.6-1.0 cm PW 1.0 0.6-1.0 cm FS 28.57 28-44 % EF 48.57 % LA size 3.3 3.0-4.0 cm LA volume 34.0 18-58 mL Left Atrium Index 18.09 10-32 Right Ventricular Basal 3.6 cm (2.4-4.2) Diameter Right Atrial Area 9.0 cm2 (<=18) Right Ventricular Mid 2.8 cm (2.0-3.5) Diameter Right Ventricular Long 6.9 cm (5.6-8.6) Diameter Sinus 3.5 2.1-3.5 cm AV peak velocity 1.9 m/s TV rest pulmonary artery na mmHg pressure E/A ratio 0.57 TDI e' 0.100 m/s E/E' ratio 4.00 MV Peak E Cruz PW 0.400 m/s MV Peak A Cruz 0.700 m/s Narrative Normal left ventricular size and hyperdynamic systolic function. Estimated left ventricular ejection fraction is 70%. Prominent basal septal hypertrophy.There is evidence of systolic anterior motion of chordal structures of the mitral valve and LVOT obstruction. The worst area of obstruction appears to be mid cavity by 2D and color Doppler imaging. Peak LVOT gradient at rest 40 mmHg. No Valsalva maneuver or amyl nitrate testing was performed Normal right ventricular size and systolic function. Normal chamber dimensions. Mild aortic sclerosis without stenosis Pulmonary systolic pressure could not be accurately estimated due to lack of significant tricuspid regurgitant jet No pericardial effusion No prior study is available for comparison. This study was read in conjunction with fashion journalist, Dr. Hudson Monzon.I have personally reviewed the study and co-formulated the interpretation expressed in this report. CARDIAC CATH REPORT (08/16/2016 9:03 AM)Only the most recent of 2 results within the time period is included. Procedure Note Sat Aug 14, 2016 3:57 PM COMMERCIAL ADMINISTRATOR [facility] CARDIAC CATHETERIZATION REPORT Page 3 KAZ Diza : 1960 #: [id number] JESSICA MR #/Billing ID #: [id number] / [id number] DATE: 08/14/2016 LABORER CONCRETE PAVING: Melisa Ortiz MD DICTATING PROVIDER: Melisa Ortiz MD REFERRING PHYSICIAN: SILVER RABAGO PROCEDURES PERFORMED: 1. Selective coronary angiography. 2. Left heart catheterization. BRIEF CLINICAL HISTORY: Mr. Restrepo is a pleasant gentleman who unfortunately is a current smoker. He has significant CAD and underwent revascularization and long segment stenting of a completely occluded dominant RCA just [address] Simms. The patient was sent home, but returned with ongoing incessant chest discomfort of a mild to moderate degree. He said that he was good for about 18 hours or so at home, and his color of the face returned after the procedure and he felt really good, but within a day he started having the same kind of chest tightness and discomfort again. He went to a local hospital in [place], [place]. He was put on IV nitroglycerin and heparin without much relief. He was transferred here and has continued to have discomfort without relief. The troponin was 0.07 at admission, coming down to 0.06. This may reflect a prior injury during the complex PCI just 5 days ago, and we are catching the tail end of it. No significant EKG changes were noted. He was recommended for cardiac catheterization. INFORMED CONSENT: I discussed the risks, benefits, and alternatives to the procedure at length with the patient and spouse. I discussed with them that his RCA stents would likely be patent because the EKG did not show any evidence of an RCA infarction. We did discuss his known anatomy of moderate disease in the ramus and diagonal and severe stenosis of the distal circ/distal obtuse marginal which was a small vessel. PROCEDURAL DETAILS: 1. The patient was brought into the cardiac catheterization laboratory and prepped and draped in a sterile fashion. 2. 1% lidocaine was used to instill local anesthesia in the right groin. It had no hematoma. It was slightly tender from the recent cardiac catheterization. Once the lidocaine was given, access was easily obtained with a micropuncture needle and a 5-Lithuanian short sheath was advanced. A Storq wire was used, because there was some difficulty advancing the wire at a focal calcification level in the iliac artery. However, the Storq wire, advanced very easily. 3. All catheter exchanges were then done over the wire. 4. Using standard JL4 catheters, selective imaging of the left and right coronary arteries was obtained to fully define coronary anatomy. 5. An angled pigtail catheter was crossed into the left ventricular cavity. Left heart pressures were recorded. A pullback gradient across the aortic valve was also performed. LV angiography was not performed. 6. At the end of the case, the sheath was kept in place and the patient was transferred out of calibration laboratory technician in stable condition. TOTAL CONTRAST USED: 60 mL. TOTAL RADIATION DOSE: 649 mGy of air kerma. DIAGNOSTIC ANGIOGRAPHY: 1. Left main coronary artery: The left main coronary artery has no significant angiographic stenosis. It is widely patent. It divides into an LAD and a circumflex branch. 2. Left anterior descending artery: The LAD is a large vessel that does reach the apex and wraps around it. The LAD has mild to moderate plaquing throughout its course, without any focal area of significant stenosis. The LAD does wrap around the apex to supply a significant portion of the inferior apex. The diagonal branch arises from the mid LAD. It is a large-size diagonal branch with moderate diffuse disease in the proximal to midportion of about 60%, without an area of focal stenosis. 3. Circumflex artery: The circumflex is a medium-size vessel arising normally from the left main coronary artery. Very early in its course, it gives rise to a very large 1st obtuse marginal branch that is almost like a ramus intermedius. In its proximal portion, there is about a 60% stenosis that is followed by significant tortuosity but no critical stenosis. There is CHRYSTAL-3 flow. The distal circumflex artery continues into a small obtuse marginal branch that has a 90% focal stenosis but CHRYSTAL-3 flow. This is unchanged from before. Right after the bifurcation of this large obtuse marginal branch or high ramus branch, the circ itself has a 70% stenosis. This is also unchanged from before. 4. Right coronary artery: The RCA has a long segment of stents going from the proximal portion to the distal portion before the bifurcation. The stents are widely patent, without any abnormality. In the mid/distal RCA, there is an area of stent malposition from positive remodeling of the artery, likely from the entry dissection plane. Distally, the RCA divides into a large PLV and a large PDA. The PDA has no significant stenosis. The PLV has a 50% stenosis, unchanged from before. LEFT VENTRICULAR HEMODYNAMICS: LV systolic pressure measures 150 mmHg. End- diastolic pressure is low to normal at 10 mmHg. There is no pullback gradient across the aortic valve. FINAL IMPRESSION: 1. The patient has unchanged coronary artery anatomy, manifested by a widely patent stented portion of the RCA which was completely occluded before that intervention 5 days ago. There is malposition of stents in the mid/distal RCA from positive remodeling, likely in a dissection plane site during the complex RUBBER TRIMMER. At this point, I would recommend conservative management for this area, rather than ballooning it, as very likely this may thrombose and heal off without affecting the stents. 2. The patient's distal circumflex artery indeed has a 90% stenosis, but it is a very small vessel supplying a very small amount of myocardium. The patient's discomfort is incessant, going on for 3 days, and is unchanged even after the PCI of the RCA, as his pain was similar. I discussed this with Dr. Simms, the patient's primary sales management intern, today, who reviewed the images and agrees that we should continue medical management rather than intervention at this point, as there is no significant mortality benefit from intervention of this, and the constant unrelenting pain is unlikely from this. 3. The high obtuse marginal/ramus and the diagonal have moderate disease, likely because of rest pain, and recommend medical management. 4. Aggressive smoking cessation recommendations are being made. Melisa Ortiz MD KG/MedQ /[id number] p cc: - SILVER RABAGO MAGNESIUM (08/16/2016 4:46 AM)Only the most recent of 4 results within the time period is included. Component Value Range Magnesium 1.8 1.6-2.6 mg/dL Specimen Blood BASIC METABOLIC PANEL (08/16/2016 4:46 AM)Only the most recent of 5 results within the time period is included. Component Value Range Sodium 137 137-147 MMOL/L Potassium 4.5 3.5-5.1 MMOL/L Chloride 103 98-110 MMOL/L CO2 29 21-30 MMOL/L Anion Gap 5 3-12 Glucose 113 (H) 70-100 MG/DL Blood Urea Nitrogen 22 7-25 MG/DL Creatinine 1.10 0.4-1.24 MG/DL Calcium 9.2 8.5-10.6 MG/DL eGFR Non >60Comment: >60 mL/min [...] the Clinical Pharmacist for questions. Specimen Blood CBC (08/16/2016 4:46 AM)Only the most recent of 6 results within the time period is included. Component Value Range White Blood Cells 5.7 4.5-11.0 K/UL RBC 3.84 (L) 4.4-5.5 M/UL Hemoglobin 11.7 (L) 13.5-16.5 GM/DL Hematocrit 35.2 (L) 40-50 % MCV 91.6 80-100 FL MCH 30.5 26-34 PG MCHC 33.3 32.0-36.0 G/DL RDW 13.2 11-15 % Platelet Count 280 150-400 K/UL MPV 8.0 7-11 FL Specimen Blood PTT (APTT) (08/15/2016 5:44 AM)Only the most recent of 4 results within the time period is included. Component Value Range APTT 65.1 (H) 24.0-40.0 SEC Specimen Blood CTA CHEST WO/W CONTRAST+POST IMPRESSION (08/14/2016 11:41 PM) Impressions 1.Mild aortic valvular calcification without aortic aneurysm, dissection or intramural hematoma. 2.Mild emphysema. 3.Coronary artery disease. 4.Small hiatal hernia. By my electronic signature, I attest that I have personally reviewed the images for this examination and formulated the interpretations and opinions expressed in this report Finalized by Stuart Cantor M.D. on 08/15/2016 12:23 AM. Dictated by Sagar Velez M.D. on 08/14/2016 11:51 PM. Narrative CTA CHEST CLINICAL HISTORY: 56-year-old male, CHEST PAIN, ACUTE, AORTIC DISSECTION SUSPECT. TECHNIQUE: Multiple contiguous axial CT images were obtained through the chest following the administration of IV contrast.Post processing coronal and sagittal reconstruction images were made from the axial images.Image post-processing was obtained. COMPARISON: Outside CT chest July 31, 2016. IV CONTRAST: Isovue-370 FINDINGS: Lower Neck: Unremarkable. Axilla, Mediastinum and Micaela: Reactive appearing bilateral axillary lymph nodes are identified. No mediastinal or hilar lymphadenopathy. Several partially calcified right hilar and mediastinal granulomas are noted. Small hiatal hernia Heart and Great Vessels: The heart is normal in size with calcific coronary artery disease. Mild calcifications are noted about the aortic valve. No pericardial effusion. The thoracic aorta is normal in caliber, with mild scattered atherosclerotic calcification. No evidence of dissection or intramural hematoma. No central or segmental filling defect in the pulmonary arterial distribution to indicate an acute pulmonary embolus. Airway, Lungs and Pleura: The central airways are widely patent. Mild dependent atelectasis. No pleural effusion, pneumothorax, or lobar consolidation. Minimal bilateral peribronchial thickening. Mild paraseptal and centrilobular emphysema. Upper Abdomen: Unremarkable. Chest Wall and Osseous Structures: Mild thoracic spondylosis. No destructive osseous lesions are identified. Procedure Note Interface, Radiant Results - Sun Aug 15, 2016 12:27 AM COMMERCIAL ADMINISTRATOR CTA CHEST CLINICAL HISTORY: 56-year-old male, CHEST PAIN, ACUTE, AORTIC DISSECTION SUSPECT. TECHNIQUE: Multiple contiguous axial CT images were obtained through the chest following the administration of IV contrast. Post processing coronal and sagittal reconstruction images were made from the axial images. Image post-processing was obtained. COMPARISON: Outside CT chest July 31, 2016. IV CONTRAST: Isovue-370 FINDINGS: Lower Neck: Unremarkable. Axilla, Mediastinum and Micaela: Reactive appearing bilateral axillary lymph nodes are identified. No mediastinal or hilar lymphadenopathy. Several partially calcified right hilar and mediastinal granulomas are noted. Small hiatal hernia Heart and Great Vessels: The heart is normal in size with calcific coronary artery disease. Mild calcifications are noted about the aortic valve. No pericardial effusion. The thoracic aorta is normal in caliber, with mild scattered atherosclerotic calcification. No evidence of dissection or intramural hematoma. No central or segmental filling defect in the pulmonary arterial distribution to indicate an acute pulmonary embolus. Airway, Lungs and Pleura: The central airways are widely patent. Mild dependent atelectasis. No pleural effusion, pneumothorax, or lobar consolidation. Minimal bilateral peribronchial thickening. Mild paraseptal and centrilobular emphysema. Upper Abdomen: Unremarkable. Chest Wall and Osseous Structures: Mild thoracic spondylosis. No destructive osseous lesions are identified. IMPRESSION 1. Mild aortic valvular calcification without aortic aneurysm, dissection or intramural hematoma. 2. Mild emphysema. 3. Coronary artery disease. 4. Small hiatal hernia. By my electronic signature, I attest that I have personally reviewed the images for this examination and formulated the interpretations and opinions expressed in this report Finalized by Stuart Cantor M.D. on 08/15/2016 12:23 AM. Dictated by Sagar Velez M.D. on 08/14/2016 11:51 PM. TROPONIN-I (08/14/2016 6:50 PM)Only the most recent of 4 results within the time period is included. Component Value Range Troponin-I 0.03 0.0-0.05 NG/ML Specimen Blood POC ACTIVATED CLOTTING TIME (08/14/2016 3:27 PM)Only the most recent of 10 results within the time period is included. Component Value Range Activated Clotting Time 158 s URINALYSIS, MICROSCOPIC (08/14/2016 7:23 AM) Component Value Range WBCs,UA 10-20 0-2 /HPF RBCs,UA 20-50 0-3 /HPF MucousUA 1+ Squamous Epithelial Cells 0-2 0-5 Hyaline Cast 0-2 Specimen Urine URINALYSIS DIPSTICK (08/14/2016 7:23 AM) Component Value Range Color,UA YELLOW Turbidity,UA CLEAR CLEAR-CLEAR Specific [place]-Urine 1.015 1.003-1.035 pH,UA 6.0 5.0-8.0 Protein,UA NEG NEG-NEG Glucose,UA NEG NEG-NEG Ketones,UA NEG NEG-NEG Bilirubin,UA NEG NEG-NEG Blood,UA 2+ (A) NEG-NEG Urobilinogen,UA NORMAL NORM-NORMAL Nitrite,UA NEG NEG-NEG Leukocytes,UA 1+ (A) NEG-NEG Urine Ascorbic Acid, UA NEG NEG-NEG Specimen Urine PROTIME INR (PT) (08/13/2016 10:07 PM) Component Value Range INR 1.0 0.8-1.2 PHOSPHORUS (08/13/2016 10:07 PM) Component Value Range Phosphorus 3.6 2.0-4.0 MG/DL BNP (B-TYPE NATRIURETIC PEPTI) (08/13/2016 10:07 PM) Component Value Range B Type Natriuretic 22.0 0-100 PG/ML Peptide ECG-SCAN (08/12/2016 9:18 AM) Narrative Ordered by an unspecified provider. ECG-SCAN (08/12/2016 9:18 AM) Narrative Ordered by an unspecified provider. GENERAL RAD CHEST EXTERNAL IMAGING (08/12/2016)Only the most recent of 3 results within the time period is included. Narrative This order has been auto finalized and does not contain a result. TELEMETRY STRIPS-SCAN (08/11/2016 11:29 AM) Narrative Ordered by an unspecified provider. PROCEDURE RECORD-SCAN (08/11/2016 11:28 AM) Narrative Ordered by an unspecified provider. ECG UNCONFIRMED-SCAN (08/11/2016 11:10 AM) Narrative Ordered by an unspecified provider. ECG UNCONFIRMED-SCAN (08/11/2016 11:10 AM) Narrative Ordered by an unspecified provider. ECG-SCAN (08/11/2016 11:09 AM) Narrative Ordered by an unspecified provider. LIVER FUNCTION PANEL (08/09/2016 8:45 AM) Component [...] Holly et al. Am J. Cardiol. 2008, [id number]. The "goal" should be less than 130 mg/dL, but will vary according to risk factors. CT CHEST EXTERNAL IMAGING (07/31/2016 10:50 PM) Narrative This order has been auto finalized and does not contain a result. CT HEAD EXTERNAL IMAGING (07/29/2016 12:15 AM) Narrative This order has been auto finalized and does not contain a result.
[2016-08-30] MEDS ORDERED: morphine INJ 10 MG/ML 1ML (SYR OR VIAL) IV STA (20:04)
[2016-08-30 20:14] LABS: BASOPHILS % (AUTO) 1 % (0-10); EOSINOPHILS # (AUTO) 0.4 10^3/uL (0.0-0.3); EOSINOPHILS % (AUTO) 7 % (0-10); LYMPHOCYTES # (AUTO) 1.6 X 10^3 (1.0-4.0); LYMPHOCYTES % (AUTO) 25 % (12-44); MEAN CORPUSCULAR HEMOGLOBIN 31 PG (25-34); MEAN CORPUSCULAR HGB CONC 33 G/DL (32-36); MEAN CORPUSCULAR VOLUME 93 FL (80-99); MEAN PLATELET VOLUME 9.3 FL (7.4-10.4); MONOCYTES # (AUTO) 0.8 X 10^3 (0.0-1.0); MONOCYTES % (AUTO) 12 % (0-12); NEUTROPHILS # (AUTO) 3.5 X 10^3 (1.8-7.8); NEUTROPHILS % (AUTO) 56 % (42-75); PLATELET COUNT 301 10^3/uL (130-400); RED BLOOD COUNT 3.76 10^6/uL (4.35-5.85); RED CELL DISTRIBUTION WIDTH 13.4 % (10.0-14.5); WHITE BLOOD COUNT 6.3 10^3/uL (4.3-11.0)
[2016-08-30] MEDS ORDERED: ASPIRIN 81 MG CHEW (CHILDREN'S ASA) PO ONE (20:15)
[2016-08-30] MEDS ORDERED: meTOprolol 5 MG/5 ML (LOPRESSOR) VIAL IV ONE ×3 (20:15→21:30)
[2016-08-30 20:25] LABS: PROTHROMBIN TIME PATIENT 12.9 SEC (12.2-14.7)
[2016-08-30 20:35] LABS: ALANINE AMINOTRANSFERASE 32 U/L (0-55); ALBUMIN 4.2 G/DL (3.2-4.5); ANION GAP 12 MMOL/L (5-14); ASPARTATE AMINO TRANSFERASE 17 U/L (5-34); BILIRUBIN,TOTAL 0.1 MG/DL (0.1-1.0); BLOOD UREA NITROGEN 25 MG/DL (7-18); BUN/CREATININE RATIO 21; CALCIUM 9.2 MG/DL (8.5-10.1); CARBON DIOXIDE 22 MMOL/L (21-32); CHLORIDE 106 MMOL/L (98-107); CREATININE SERUM 1.19 MG/DL (0.60-1.30); GFR ESTIMATED > 60; GLUCOSE 105 MG/DL (70-105); MAGNESIUM 1.8 MG/DL (1.8-2.4); POTASSIUM 4.3 MMOL/L (3.6-5.0); SODIUM 140 MMOL/L (135-145); TOTAL PROTEIN 7.2 G/DL (6.4-8.2)
[2016-08-30] MEDS ORDERED: LIDOCAINE 2% VISCOUS 15 ML UDC ONE (20:35)
[2016-08-30] MEDS ORDERED: ANTACID SUSP 30 ML UDC (MYLANTA) ONE (20:35)
--- NOTE | 2016-08-30 20:41 | Diagnostic Imaging Report ---
Indication: Chest pain. Discussion: Single portable upright view of the chest was obtained, comparison 08/12/2016. No adverse interval change. The heart and lungs are normal. No acute osseous abnormality. Chronic right shoulder separation is stable. Impression: 1. Negative chest. Dictated by: Dictated on workstation # [id number]
[2016-08-30 20:42] LABS: MYOGLOBIN SERUM 33.8 NG/ML (10.0-92.0)
--- NOTE | 2016-08-30 20:43 | ED Chest Pain ---
General Chief Complaint: Chest Pain Stated Complaint: CP Nursing Triage Note: Stated having cp starting at 1700. 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 sternal cp radiating straight up cabrera, nausea. also states he fell 13 ft into duster today and landed on rt side Nursing Sepsis Screen: No Definite Risk Source: patient Exam Limitations: no limitations History of Present Illness Time seen by provider: 19:57 Initial Comments Here with report of chest pain that is central and nonradiating. This is been going on for about 2 hours prior to arrival. He has tried nitroglycerin and this has not helped. He did have history of recent cardiac stent placement and another hospitalization related to chest pain. Patient and states that he did take nitroglycerin this is not working. He did report taking all of his medicines. Denies breathing problems but feels some nausea. Denies vomiting or diaphoresis. 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 Associated Symptoms: No abdominal pain, No back pain, No diaphoresis, No fever/ chills, nausea/vomitingNo shortness of breath, No weakness Allergies and Home Medications Allergies Coded Allergies: penicillin G (Verified Allergy, Severe, SWELLING, 12/23/11) Home Medications Amlodipine Besylate 10 Mg Tablet 10 MG PO DAILY (Reported) Aspirin 81 Mg Tablet.dr 81 MG PO HS (Reported) Atorvastatin Calcium 40 Mg Tablet 40 MG PO HS (Reported) Atorvastatin Calcium 10 Mg Tablet #30 10 (Reported) Carvedilol 12.5 Mg Tablet 6.25 MG PO BID (Reported) TAKES 1/2 OF A (12.5 MG) TABLET Clopidogrel Bisulfate 75 Mg Tablet 75 MG PO HS (Reported) Lisinopril 20 Mg Tablet 20 MG PO DAILY (Reported) Nitroglycerin 0.4 Mg Tab.subl 0.4 MG SL UD PRN PRN CHEST PAIN (Reported) PLACE 1 TAB UNDER TONGUE NEEDED FOR CHEST PAIN; IF PAIN REMAINS AFTER 5 MINUTES, CALL 911 [place]-3/Dha/Epa/Fish Oil 1 Each Capsule 1,000 MG PO BID (Reported) Pantoprazole Sodium 40 Mg Tablet.dr 40 MG PO DAILY (Reported) Promethazine HCl 25 Mg Tablet 25 MG PO Q8H PRN PRN NAUSEA/VOMITING (Reported) Zolpidem Tartrate 10 Mg Tablet 10 MG PO HS PRN PRN SLEEP (Reported) Review of Systems Constitutional: see HPI EENTM: See HPI Respiratory: No Symptoms Reported Cardiovascular: See HPI Chest PainDenies Palpitations Gastrointestinal: Denies Abdominal Pain, NauseaDenies Vomiting Genitourinary: No Symptoms Reported Musculoskeletal: no symptoms reported Skin: no symptoms reported Psychiatric/Neurological: No Symptoms Reported All Other Systems Reviewed Negative Unless Noted: Yes Past Oocpdmo-Vrhtbu-Lpoqjw Hx Patient Social History Alcohol Use: Denies Use Recreational Drug Use: No Type Used: Cigarettes 2nd Hand Smoke Exposure: No Recent Foreign Travel: No Contact w/Someone Who Travel: No Recent Infectious Disease Expo: No Recent Hopitalizations: No Immunizations Up To Date Tetanus Booster (TDap): Less than 5yrs Date of Influenza Vaccine: Dec 28, 2014 Seasonal Allergies Seasonal Allergies: No Surgeries HX Surgeries: Yes (hernia) Surgeries: Abdominal, Coronary Stent, Orthopedic Respiratory Hx Respiratory Disorders: No Cardiovascular Hx Cardiac Disorders: Yes (CARDIAC STENTS) Cardiac Disorders: Heart Attack, High Cholesterol, Hypertension Neurological Hx Neurological Disorders: Yes (MINI STROKES-SEVERAL) Neurological Disorders: TIA Reproductive System Hx Reproductive Disorders: No Sexually Transmitted Disease: No Genitourinary Hx Genitourinary Disorders: No Gastrointestinal Hx Gastrointestinal Disorders: Yes Gastrointestinal Disorders: Gastroesophageal Reflux Musculoskeletal Hx Musculoskeletal Disorders: No Endocrine Hx Endocrine Disorders: No HEENT HX ENT Disorders: No Loss of Vision: Denies Cancer Hx Cancer: No Psychosocial Hx Psychiatric Problems: No Integumentary HX Skin/Integumentary Disorder: No Blood Transfusions Hx Blood Disorders: No Reviewed Nursing Assessment Reviewed/Agree w Nursing PMH: Yes Family Medical History Significant Family History: Heart Disease, Hypertension Family Medial History: Arthritis 19 MOTHER CARDIAC MONITOR G8 SISTER FH: COPD (chronic obstructive pulmonary disease) Hypercholesterolemia 19 MOTHER Hypertension 19 MOTHER Physical Exam Vital Signs Vital Sign - Last 12Hours 08/30/16 08/30/16 20:00 20:09 Pulse 62 Resp 18 B/P 198/105 Pulse Ox 94 O2 Delivery Nasal Cannula O2 Flow Rate 4 FiO2 100 Capillary Refill : Less Than 3 Seconds General Appearance: No Apparent Distress WD/WN HEENT: PERRL/EOMI Pharynx Normal Neck: Non Tender Supple Respiratory: Lungs Clear Normal Breath Sounds Cardiovascular: Regular Rate, Rhythm No Murmur Gastrointestinal: Non Tender Soft Extremity: Non Tender No Calf Tenderness Neurologic/Psychiatric: Alert Oriented x3 Skin: Normal Color Warm/Dry Focused Exam Lactic Acid Level Laboratory Tests Test 08/30/16 20:00 Alanine Aminotransferase (ALT/SGPT) 32U/L (0-55) Albumin 4.2G/DL (3.2-4.5) Alkaline Phosphatase 150U/L (40-136) H Anion Gap 12MMOL/L (5-14) Aspartate Amino Transf (AST/SGOT) 17U/L (5-34) BUN/Creatinine Ratio 21 Blood Urea Nitrogen 25MG/DL (7-18) H Calcium Level 9.2MG/DL (8.5-10.1) Carbon Dioxide Level 22MMOL/L (21-32) Chloride Level 106MMOL/L (98-107) Creatinine 1.19MG/DL (0.60-1.30) Estimat Glomerular Filtration Rate > 60 Glucose Level 105MG/DL (70-105) Magnesium Level 1.8MG/DL (1.8-2.4) Myoglobin 33.8NG/ML (10.0-92.0) Potassium Level 4.3MMOL/L (3.6-5.0) Sodium Level 140MMOL/L (135-145) Total Bilirubin 0.1MG/DL (0.1-1.0) Total Protein 7.2G/DL (6.4-8.2) Troponin I < 0.30NG/ML (<0.30) Progress/Results/Core Measures Results/Orders Lab Results Laboratory Tests Test 08/30/16 20:00 Range/Units Activated Partial Thromboplast Time 28 24-35 SEC Alanine Aminotransferase (ALT/SGPT) 32 0-55 U/L Albumin 4.2 3.2-4.5 G/DL Alkaline Phosphatase 150 H 40-136 U/L Anion Gap 12 5-14 MMOL/L Aspartate Amino Transf (AST/SGOT) 17 5-34 U/L BUN/Creatinine Ratio 21 Basophils # (Auto) 0.0 0.0-0.1 10^3/uL Basophils (%) (Auto) 1 0-10 % Blood Urea Nitrogen 25 H 7-18 MG/DL Calcium Level 9.2 8.5-10.1 MG/DL Carbon Dioxide Level 22 21-32 MMOL/L Chloride Level 106 98-107 MMOL/L Creatinine 1.19 0.60-1.30 MG/DL Eosinophils # (Auto) 0.4 H 0.0-0.3 10^3/uL Eosinophils (%) (Auto) 7 0-10 % Estimat Glomerular Filtration Rate > 60 Glucose Level 105 70-105 MG/DL Hematocrit 35 L 40-54 % Hemoglobin 11.6 L 13.3-17.7 G/DL INR Comment 1.0 0.8-1.4 Lymphocytes # (Auto) 1.6 1.0-4.0 X 10^3 Lymphocytes (%) (Auto) 25 12-44 % Magnesium Level 1.8 1.8-2.4 MG/DL Mean Corpuscular Hemoglobin 31 25-34 PG Mean Corpuscular Hemoglobin Concent 33 32-36 G/DL Mean Corpuscular Volume 93 80-99 FL Mean Platelet Volume 9.3 7.4-10.4 FL Monocytes # (Auto) 0.8 0.0-1.0 X 10^3 Monocytes (%) (Auto) 12 0-12 % Myoglobin 33.8 10.0-92.0 NG/ML Neutrophils # (Auto) 3.5 1.8-7.8 X 10^3 Neutrophils (%) (Auto) 56 42-75 % Platelet Count 301 130-400 10^3/uL Potassium Level 4.3 3.6-5.0 MMOL/L Prothrombin Time 12.9 12.2-14.7 SEC Red Blood Count 3.76 L 4.35-5.85 10^6/uL Red Cell Distribution Width 13.4 10.0-14.5 % Sodium Level 140 135-145 MMOL/L Total Bilirubin 0.1 0.1-1.0 MG/DL Total Protein 7.2 6.4-8.2 G/DL Troponin I < 0.30 <0.30 NG/ML White Blood Count 6.3 4.3-11.0 10^3/uL My Orders Orders-BRITNEY CEE MD Cbc With Automated Diff (08/30/16 20:04) Magnesium (08/30/16 20:04) Chest 1 View, Ap/Pa Only (08/30/16 20:04) Ekg Tracing (08/30/16 20:04) Cardiac Profile 1 (08/30/16 20:04) Comprehensive Metabolic Panel (08/30/16 20:04) Myoglobin Serum (08/30/16 20:04) Protime With Inr (08/30/16 20:04) Partial Thromboplastin Time (08/30/16 20:04) O2 (08/30/16 20:04) Monitor-Rhythm Ecg Trace Only (08/30/16 20:04) Aspirin Chewable Tablet (Baby Aspirin Ch (08/30/16 20:15) Morphine Injection (Morphine Injection (08/30/16 20:04) Saline Lock/Iv-Start (08/30/16 20:04) Metoprolol Tartrate Injection (Lopressor (08/30/16 20:15) Lidocaine 2% Viscous 15 Ml (Xylocaine Vi (08/30/16 20:35) Antacid Suspension (Mylanta Suspension (08/30/16 20:35) Morphine Injection (Morphine Injection (08/30/16 21:00) Ketorolac Injection (Toradol Injection) (08/30/16 21:15) Morphine Injection (Morphine Injection (08/30/16 21:15) Ketorolac Injection (Toradol Injection) (08/30/16 21:15) Metoprolol Tartrate Injection (Lopressor (08/30/16 21:30) Metoprolol Tartrate Injection (Lopressor (08/30/16 21:30) Lorazepam Injection (Ativan Injection) (08/30/16 21:45) Nitroglycerin Drip 25 Mg/D5w (Nitroglyce (08/30/16 21:45) Lorazepam Injection (Ativan Injection) (08/30/16 21:42) Nitroglycerin Drip 25 Mg/D5w (Nitroglyce (08/30/16 21:43) Medications Given in ED Current Medications Medications Dose Ordered Sig/Mckenzie Route Start Time Stop Time Status Last Admin Dose Admin Al Hydrox/Mg Hydrox/Simethicone 30 ml STK-MED ONCE .ROUTE 08/30/16 20:35 08/30/16 20:39 DC 08/30/16 20:47 30 ML Aspirin 324 mg ONCE ONCE PO 08/30/16 20:15 08/30/16 20:16 DC 08/30/16 20:13 324 MG Ketorolac Tromethamine 30 mg STK-MED ONCE .ROUTE 08/30/16 21:15 08/30/16 21:18 DC 08/30/16 21:30 30 MG Lidocaine HCl 15 ml STK-MED ONCE .ROUTE 08/30/16 20:35 08/30/16 20:39 DC 08/30/16 20:47 15 ML Lorazepam 1 mg ONCE ONCE IVP 08/30/16 21:45 08/30/16 21:46 DC 08/30/16 21:49 1 MG Metoprolol Tartrate 5 mg ONCE ONCE IV 08/30/16 20:15 08/30/16 20:16 DC 08/30/16 20:22 5 MG Metoprolol Tartrate 5 mg ONCE ONCE IV 08/30/16 21:30 08/30/16 21:31 DC 08/30/16 21:04 5 MG Metoprolol Tartrate 5 mg ONCE ONCE IV 08/30/16 21:30 08/30/16 21:31 DC 08/30/16 21:30 5 MG Morphine Sulfate 2 mg Q2H ONCE IVP 08/30/16 21:00 08/30/16 21:01 DC 08/30/16 20:48 2 MG Vital Signs/I&O Vital Sign - Last 12Hours 08/30/16 08/30/16 08/30/16 08/30/16 20:00 20:00 20:09 21:56 Pulse 62 56 Resp 18 18 B/P 198/105 149/100 Pulse Ox 94 97 97 O2 Delivery Nasal Cannula Nasal Cannula O2 Flow Rate 4 4 4 FiO2 100 08/30/16 08/30/16 08/30/16 22:07 22:18 22:32 Pulse 57 57 55 Resp 16 14 16 B/P 135/90 125/90 138/90 Pulse Ox 97 97 96 O2 Delivery Nasal Cannula O2 Flow Rate 4.00 Blood Pressure Mean: 136 Progress Note : Progress Note Seen and evaluated. IV, labs, EKG and chest x-ray ordered. Morphine 2 mg IV ordered. Monitor patient. Repeat morphine 2 mg IV and Lopressor 5 mg IV given. His blood pressure did not improve significantly. Lopressor repeated 2 and morphine repeated at 5 mg IV. Patient still with pain. Patient was given GI cocktail and this helped briefly. He was also given Toradol 30 mg IV. Pain returned. Nitroglycerin drip initiated and Ativan 1 mg IV initiated. I did discuss the case with Dr. Lao and he accepts patient for consult. I did discuss the case with Dr. Rabago and he accepts patient for admission. Patient will go to ICU on nitroglycerin drip with additional order for morphine as needed. Repeat labs ordered. Findings and concerns discussed with patient and family who agree to admission. Dr. Rabago requesting UDS which was ordered. Admit, observation status, ICU. ECG Initial ECG Impression Date: Aug 30, 2016 Initial ECG Impression Time: 20:00 Initial ECG Rate: 73 Initial ECG Rhythm: Normal Sinus Comment Sinus rhythm with normal axis. No evidence of ST elevation MS. Similar to previous to 08/13/16. Interpreted by me. Departure Communication Time/Spoke to Admitting Phy: 22:15 Time/Spoke to Consulting Physi: 21:55 Impression Impression: Primary Impression: Hypertensive emergency Additional Impression: Chest pain Qualified Code: R07.9 - Chest pain, unspecified Disposition: ADMITTED INPATIENT Condition: Stable Decision to Admit Reason: Admit from ER (General) Decision to Admit/Date: Aug 30, 2016 Time/Decision to Admit Time: 21:55 Departure-Patient Inst. Referrals: ANDRES RABAGO DO (PCP/Family) Primary Care Physician BRITNEY CEE MD Aug 30, 2016 20:43
[2016-08-30] MEDS ORDERED: ATOR10TA66 PO (20:45)
[2016-08-30] MEDS ORDERED: morphine INJ 4 MG/ML 1 ML (VIAL/SYRINGE) IVP ONE (21:00)
[2016-08-30] MEDS ORDERED: KETOROLAC 30 MG/ML VIAL IVP STA (21:15)
[2016-08-30] MEDS ORDERED: KETOROLAC 30 MG/ML VIAL ONE (21:15)
[2016-08-30] MEDS ORDERED: morphine INJ 10 MG/ML 1ML (SYR OR VIAL) IVP STA (21:15)
[2016-08-30] MEDS ORDERED: LORazepam INJ 2 MG/ML (ATIVAN) VIAL ONE (21:42)
[2016-08-30] MEDS ORDERED: NITROGLYCERIN DRIP 25 MG/D5W 250 ML IV ONE (21:43)
[2016-08-30] MEDS ORDERED: NITROGLYCERIN DRIP 25 MG/D5W 250 ML IV SCH (21:45)
[2016-08-30] MEDS ORDERED: LORazepam INJ 2 MG/ML (ATIVAN) VIAL IVP ONE (21:45)
[2016-08-30 22:52] VITALS: BP 148/92
[2016-08-30 23:00] VITALS: BP 124/88
[2016-08-30] MEDS ORDERED: NS IV 1000 ML 1,000 ML ONE (23:07)
[2016-08-30] MEDS ORDERED: ACETAMINOPHEN 325 MG TABLET/CAPLET (TYLENOL) PO PRN (23:45)
[2016-08-30] MEDS ORDERED: NITROGLYCERIN DRIP 25 MG/250 ML D5W (PRE-MIX) IV SCH (23:45)
[2016-08-31] VITALS (20 sets, daily range): BP systolic 88–173; BP diastolic 51–85
[2016-08-31] MEDS ORDERED: NITROGLYCERIN SUBLINGUAL 0.4 MG TAB (NITROSTAT) SL PRN ×2 (01:00→06:45)
[2016-08-31] MEDS: morphine INJ 10 MG/ML 1ML (SYR OR VIAL) IV PRN ×6 (01:41→20:59)
[2016-08-31] MEDS: NS IV 1000 ML 1,000 ML IV SCH ×2 (01:50→16:22)
[2016-08-31 02:09] LABS: BASOPHILS % (AUTO) 1 % (0-10); EOSINOPHILS # (AUTO) 0.3 10^3/uL (0.0-0.3); EOSINOPHILS % (AUTO) 8 % (0-10); LYMPHOCYTES # (AUTO) 1.5 X 10^3 (1.0-4.0); LYMPHOCYTES % (AUTO) 34 % (12-44); MEAN CORPUSCULAR HEMOGLOBIN 31 PG (25-34); MEAN CORPUSCULAR HGB CONC 34 G/DL (32-36); MEAN CORPUSCULAR VOLUME 93 FL (80-99); MEAN PLATELET VOLUME 9.8 FL (7.4-10.4); MONOCYTES # (AUTO) 0.6 X 10^3 (0.0-1.0); MONOCYTES % (AUTO) 13 % (0-12); NEUTROPHILS # (AUTO) 1.9 X 10^3 (1.8-7.8); NEUTROPHILS % (AUTO) 44 % (42-75); PLATELET COUNT 282 10^3/uL (130-400); RED CELL DISTRIBUTION WIDTH 13.4 % (10.0-14.5); WHITE BLOOD COUNT 4.2 10^3/uL (4.3-11.0)
[2016-08-31 02:27] LABS: CALCIUM 8.7 MG/DL (8.5-10.1); CREATININE SERUM 1.31 MG/DL (0.60-1.30); MAGNESIUM 1.8 MG/DL (1.8-2.4); PHOSPHORUS 3.5 MG/DL (2.3-4.7); POTASSIUM 4.2 MMOL/L (3.6-5.0)
[2016-08-31 02:38] LABS: CREATINE KINASE 76 U/L (30-200); MYOGLOBIN SERUM 42.7 NG/ML (10.0-92.0); TROPONIN I < 0.30 NG/ML (<0.30)
[2016-08-31] MEDS ORDERED: RT-ALBUTEROL SULF 2.5 MG/3 ML PRE-MIX VIAL INH PRN (05:00)
[2016-08-31] MEDS: MAGNESIUM 1 GM/100 ML IVPB 100 ML IV SCH (06:00)
[2016-08-31] MEDS: KCL 20 MEQ TAB (K-DUR) PO SCH (06:00)
[2016-08-31] MEDS: POTASSIUM CL 10MEQ/50ML IVPB 50 ML IV SCH (06:00)
--- NOTE | 2016-08-31 06:40 | History & Physicial ---
History of Present Illness History of Present Illness Reason for visit/HPI patient came out to the emergency room due to having chest pain. Patient has a history of angina coronary artery disease. Patient has gone to for his heart problem. Patient took 3 nitroglycerin with no relief of chest pain and came out to the emergency room. Patient fell 13 feet from a dumpster and landed on right side. Patient has no pain in the right chest right side of the abdomen. Patient emergency room had a hypertension emergency. Chest pain and sternal region and went to the left shoulder down the left arm. No diaphoresis but mouth ordered Surgeries hernia as a child. Head admits to some headaches. Smokes half a pack a day patient again told to stop smoking Date of Admission Aug 30, 2016 at 22:33 I consulted on this patient on 08/31/16 06:35 Attending Physician Silver Rabago DO Admitting Physician Silver Rabago DO Consult Allergies and Home Medications Allergies Coded Allergies: penicillin G (Verified Allergy, Severe, SWELLING, 12/23/11) Home Medications Amlodipine Besylate 10 Mg Tablet 10 MG PO DAILY (Reported) Aspirin 81 Mg Tablet.dr 81 MG PO HS (Reported) Atorvastatin Calcium 40 Mg Tablet 40 MG PO HS (Reported) Atorvastatin Calcium 10 Mg Tablet #30 10 (Reported) Carvedilol 12.5 Mg Tablet 6.25 MG PO BID (Reported) TAKES 1/2 OF A (12.5 MG) TABLET Clopidogrel Bisulfate 75 Mg Tablet 75 MG PO HS (Reported) Lisinopril 20 Mg Tablet 20 MG PO DAILY (Reported) Nitroglycerin 0.4 Mg Tab.subl 0.4 MG SL UD PRN PRN CHEST PAIN (Reported) PLACE 1 TAB UNDER TONGUE NEEDED FOR CHEST PAIN; IF PAIN REMAINS AFTER 5 MINUTES, CALL 911 [place]-3/Dha/Epa/Fish Oil 1 Each Capsule 1,000 MG PO BID (Reported) Pantoprazole Sodium 40 Mg Tablet.dr 40 MG PO DAILY (Reported) Promethazine HCl 25 Mg Tablet 25 MG PO Q8H PRN PRN NAUSEA/VOMITING (Reported) Zolpidem Tartrate 10 Mg Tablet 10 MG PO HS PRN PRN SLEEP (Reported) Past Mplompn-Wzvoaz-Rbecqz Hx Patient Social History Alcohol Use: Denies Use Recreational Drug Use: No Smoking Status: Current Everyday Smoker Type Used: Cigarettes 2nd Hand Smoke Exposure: No Physical Abuse Screen: No Sexual Abuse: No Recent Foreign Travel: No Contact w/other who traveled: No Recent Hopitalizations: Yes (2 WEEKS AGO) Recent Infectious Disease Expo: No Immunizations Up To Date Tetanus Booster (TDap): Less than 5yrs Date of Influenza Vaccine: Dec 28, 2014 Seasonal Allergies Seasonal Allergies: No Surgeries HX Surgeries: Yes (hernia) Surgeries: Abdominal, Coronary Stent, Orthopedic Respiratory Hx Respiratory Disorders: No Cardiovascular Hx Cardiovascular Disorders: Yes (CARDIAC STENTS) Cardiac Disorders: Heart Attack, High Cholesterol, Hypertension Neurological Hx Neurological Disorders: Yes (MINI STROKES-SEVERAL) Neurological Disorders: TIA Reproductive System Hx Reproductive Disorders: No Sexually Transmitted Disease: No Genitourinary Hx Genitourinary Disorders: No Gastrointestinal Hx Gastrointestinal Disorders: Yes Gastrointestinal Disorders: Gastroesophageal Reflux, Hiatal Hernia, Ulcer Musculoskeletal Hx Musculoskeletal Disorders: No Endocrine Hx Endocrine Disorders: No HEENT HX ENT Disorders: No Loss of Vision: Denies Cancer Hx Cancer: No Psychosocial Hx Psychiatric Problems: No Behavioral Health Disorders: Depression Integumentary HX Skin/Integumentary Disorder: No Blood Transfusions Hx Blood Disorders: No Reviewed Nursing Assessment Reviewed/Agree w Nursing PMH: Yes Family Medical History Significant Family History: Heart Disease, Hypertension Family Hx: Arthritis 19 MOTHER MARKET RESEARCHER G8 SISTER FH: COPD (chronic obstructive pulmonary disease) Hypercholesterolemia 19 MOTHER Hypertension 19 MOTHER Constitutional: no symptoms reported EENTM: no symptoms reported Respiratory: no symptoms reported Cardiovascular: chest pain Gastrointestinal: no symptoms reported Genitourinary: no symptoms reported hematuria Physical Exam Vital Signs Vital Sign - Last 12Hours 08/30/16 08/30/16 08/30/16 20:00 20:09 22:34 Temp 98.0 Pulse 62 Resp 18 B/P 198/105 Pulse Ox 94 O2 Delivery Nasal Cannula O2 Flow Rate 4 FiO2 100 Capillary Refill : Less Than 3 Seconds General Appearance: No Apparent Distress WD/WN Eyes: Bilateral Eye Normal Inspection HEENT: Normal ENT Inspection Neck: Full Range of Motion Normal Inspection Non Tender Respiratory: Chest Non Tender Lungs Clear Normal Breath Sounds No Accessory Muscle Use No Respiratory Distress Cardiovascular: Regular Rate, Rhythm No Murmur Gastrointestinal: Normal Bowel Sounds Non Tender Soft Assessment/Plan Assessment and Plan chest pain. Malignant hypertension. Coronary artery disease. Hyperlipidemia. Tobacco usage Clinical Quality Measures AMI/AHF: ASA po Prior to arrival: Yes DVT/VTE Risk/Contraindication: Risk Factor Score Per Nursin RFS Level Per Nursing on Admit: 2=Moderate SILVER RABAGO DO Aug 31, 2016 06:39
[2016-08-31] MEDS ORDERED: PROMETHAZINE 25 MG (PHENERGAN) TAB PO PRN (06:45)
[2016-08-31] MEDS ORDERED: ZOLPIDEM 5 MG (AMBIEN) TAB PO PRN (07:15)
[2016-08-31] MEDS ORDERED: FLU TRIvalent (5 YOA+) 2016-17 (AFLURIA) 0.5 ML IM ONE (07:30)
--- NOTE | 2016-08-31 07:40 | Diagnostic Imaging Report ---
INDICATION: Dyspnea 0500 hours Portable upright view of the chest is obtained. Since the examination of one day earlier, there has been development of bilateral basilar atelectasis. Overall, heart size and pulmonary vascularity are within normal limits. There is no pneumothorax or consolidation. IMPRESSION: Developing bilateral basilar atelectasis without other evidence of acute abnormality. Dictated by: Dictated on workstation # [id number]
--- NOTE | 2016-08-31 08:15 | Consultation-Cardiology ---
HPI-Cardiology Cardiology Consultation Date of Consultation 08/31/16 Date of Admission Indication: chest pain HPI 56 years old gentleman with history of coronary artery disease, extensive disease, multiple procedures in the month of July, has chronic total occlusion of the right coronary artery underwent complex intervention in , continue to have recurrent chest pain. Had severe disease of the small circumflex artery that was treated conservatively. Patient has been having recurrent chest pain, last night became more persistent. Came into the emergency room and started on nitroglycerin drip. He is still having some residual pain at this time. He still active smoker, educated again on smoking cessation. Home Medications & Allergies Allergies: Coded Allergies: penicillin G (Verified Allergy, Severe, SWELLING, 12/23/11) Home Medication List Reviewed: Yes [id number] Hx Patient Social History Marital Status: Employed/Student: employed Alcohol Use: Denies Use Recreational Drug Use: No Smoking Status: Current Everyday Smoker Type Used: Cigarettes 2nd Hand Smoke Exposure: No Recent Foreign Travel: No Recent Infectious Disease Expo: No Recent Hopitalizations: Yes (2 WEEKS AGO) Physical Abuse Screen: No Sexual Abuse: No Immunizations Up To Date Tetanus Booster (TDap): Less than 5yrs Date of Influenza Vaccine: Dec 28, 2014 Past Medical History past medical history as discussed below Family Medical History Significant Family History: Heart Disease, Hypertension Family History: 19 MOTHER Arthritis Hypertension Hypercholesterolemia G8 SISTER STOPPERER ASSEMBLER Relation not specified for: FH: COPD (chronic obstructive pulmonary disease) Constitutional: no symptoms reported see HPI EENTM: no symptoms reported see HPI Respiratory: no symptoms reported see HPI dyspnea on exertion Cardiovascular: see HPI chest painNo edema, No Hx of Intervention, No palpitations, No syncope, No vascular heart diseas, No other Gastrointestinal: no symptoms reported see HPI Genitourinary: no symptoms reported see HPI Musculoskeletal: no symptoms reported see HPI Skin: no symptoms reported see HPI Psychiatric/Neurological: No Symptoms Reported See HPI Reviewed Test Results Reviewed Test Results Lab Laboratory Tests Test 08/30/16 20:00 08/31/16 02:00 Range/Units Activated Partial Thromboplast Time 28 24-35 SEC Alanine Aminotransferase (ALT/SGPT) 32 0-55 U/L Albumin 4.2 3.2-4.5 G/DL Alkaline Phosphatase 150 H 40-136 U/L Anion Gap 12 11 5-14 MMOL/L Aspartate Amino Transf (AST/SGOT) 17 5-34 U/L BUN/Creatinine Ratio 21 21 Basophils # (Auto) 0.0 0.0 0.0-0.1 10^3/uL Basophils (%) (Auto) 1 1 0-10 % Blood Urea Nitrogen 25 H 27 H 7-18 MG/DL Calcium Level 9.2 8.7 8.5-10.1 MG/DL Carbon Dioxide Level 22 22 21-32 MMOL/L Chloride Level 106 106 98-107 MMOL/L Creatinine 1.19 1.31 H 0.60-1.30 MG/DL Eosinophils # (Auto) 0.4 H 0.3 0.0-0.3 10^3/uL Eosinophils (%) (Auto) 7 8 0-10 % Estimat Glomerular Filtration Rate > 60 57 Glucose Level 105 139 H 70-105 MG/DL Hematocrit 35 L 33 L 40-54 % Hemoglobin 11.6 L 11.2 L 13.3-17.7 G/DL INR Comment 1.0 0.8-1.4 Lymphocytes # (Auto) 1.6 1.5 1.0-4.0 X 10^3 Lymphocytes (%) (Auto) 25 34 12-44 % Magnesium Level 1.8 1.8 1.8-2.4 MG/DL Mean Corpuscular Hemoglobin 31 31 25-34 PG Mean Corpuscular Hemoglobin Concent 33 34 32-36 G/DL Mean Corpuscular Volume 93 93 80-99 FL Mean Platelet Volume 9.3 9.8 7.4-10.4 FL Monocytes # (Auto) 0.8 0.6 0.0-1.0 X 10^3 Monocytes (%) (Auto) 12 13 H 0-12 % Myoglobin 33.8 42.7 10.0-92.0 NG/ML Neutrophils # (Auto) 3.5 1.9 1.8-7.8 X 10^3 Neutrophils (%) (Auto) 56 44 42-75 % Platelet Count 301 282 130-400 10^3/uL Potassium Level 4.3 4.2 3.6-5.0 MMOL/L Prothrombin Time 12.9 12.2-14.7 SEC Red Blood Count 3.76 L 3.60 L 4.35-5.85 10^6/uL Red Cell Distribution Width 13.4 13.4 10.0-14.5 % Sodium Level 140 139 135-145 MMOL/L Total Bilirubin 0.1 0.1-1.0 MG/DL Total Protein 7.2 6.4-8.2 G/DL Troponin I < 0.30 < 0.30 <0.30 NG/ML White Blood Count 6.3 4.2 L 4.3-11.0 10^3/uL Cholesterol Level 168 < 200 MG/DL HDL Cholesterol 34 L 40-60 MG/DL LDL Cholesterol Direct 100 1-129 MG/DL Phosphorus Level 3.5 2.3-4.7 MG/DL Total Creatine Kinase 76 30-200 U/L Triglycerides Level 149 <150 MG/DL VLDL Cholesterol 30 5-40 MG/DL Physical Exam Vital Signs Vital Sign - Last 12Hours 08/30/16 08/30/16 08/30/16 20:00 20:09 22:34 Temp 98.0 Pulse 62 Resp 18 B/P 198/105 Pulse Ox 94 O2 Delivery Nasal Cannula O2 Flow Rate 4 FiO2 100 Capillary Refill : Less Than 3 Seconds General Appearance: No Apparent Distress WD/WN Eyes: Bilateral Eye EOMI, Bilateral Eye Normal Inspection, Bilateral Eye PERRL HEENT: PERRL/EOMI TMs Normal Normal ENT Inspection Pharynx Normal Neck: Full Range of Motion Normal Inspection Non Tender Supple Carotid Bruit Respiratory: Chest Non Tender Lungs Clear Normal Breath Sounds No Accessory Muscle Use No Respiratory Distress Cardiovascular: Regular Rate, Rhythm No Edema No Gallop No JVD No Murmur Normal Peripheral Pulses Gastrointestinal: Normal Bowel Sounds No Organomegaly No Pulsatile Mass Non Tender Soft Back: Normal Inspection No CVA Tenderness No Vertebral Tenderness Extremity: Normal Capillary Refill Normal Inspection Normal Range of Motion Non Tender No Calf Tenderness No Pedal Edema Neurologic/Psychiatric: Alert Oriented x3 No Motor/Sensory Deficits Normal Mood/Affect Skin: Normal Color Warm/Dry Lymphatic: No Adenopathy A/P-Cardiology Admission Diagnosis unstable angina Coronary artery disease Hypertension Hyperlipidemia Assessment/Plan Chest pain, unstable angina, worsening pain, started on Ranexa last week, planning to increase the dose. Currently on nitroglycerin drip, I will change it to Imdur. Coronary artery disease, cardiac catheterization carried out July 27, 2016 revealed total occlusion of right coronary artery, severe stenosis at the proper circumflex artery, ostial circumflex stenosis, LAD had moderate disease. IVUS showed 60 percent stenosis, underwent stenting to the right coronary artery with excellent results. Patient underwent multiple cardiac catheterizations in the month of July due to his ongoing chest pain. Most recent cardiac catheterization carried out by Dr. Ortiz on August 14, 2016 revealed widely patent stented portion of the RCA which was completely occluded before. 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 Recommended conservative management for the area rather than blaming it, as a very likely that it may thrombosis and he'll off without affecting the stents. Distal circumflex artery with 90 percent stenosis, small vessel supplying very small amount of myocardium. Patient's discomfort is incessant, going on for several weeks, unchanged after the PCI of the RCA. Unlikely that his unrelenting pain is related to this, recommended continuing with medical management. We will start patient in cardiac rehabilitation. start home medication. Echocardiogram showed normal LV function, questionable he'll vegetation on aortic valve. Functioning normally. Continue to monitor Hypertension, controlled. Continue to monitor blood pressure/heart rate. Hyperlipidemia, restarted on Lipitor as an outpatient. Continue to monitor. Headache-complains of intermittent headache over the past several months. No change after blood pressure is better controlled. Recommend follow-up with primary care physician. History of elevated LFTs-continue to monitor. GERD with history of gastritis, continue to monitor. Tobaccoism-patient was once again educated on importance of smoking cessation. Patient will be started on Wellbutrin 150 mg twice daily History of methamphetamine use History of hiatal hernia Depression, started on Wellbutrin. Clinical Quality Measures AMI/AHF: ASA po Prior to arrival: Yes DVT/VTE Risk/Contraindication: Risk Factor Score Per Nursin RFS Level Per Nursing on Admit: 2=Moderate Contraindications-Pharm: Other *list below* ANDREA ELIAS MD Aug 31, 2016 08:15
[2016-08-31 08:41] LABS: CREATINE KINASE 72 U/L (30-200)
[2016-08-31 08:50] LABS: MYOGLOBIN SERUM 44.3 NG/ML (10.0-92.0); TROPONIN I < 0.30 NG/ML (<0.30)
[2016-08-31] MEDS ORDERED: ASPIRIN E.C. 325 MG (ECOTRIN) TABLET PO SCH (09:00)
[2016-08-31] MEDS ORDERED: ISOSORBIDE MONONITRATE 60 MG (IMDUR) TAB PO SCH (09:00)
[2016-08-31] MEDS ORDERED: UBID200C16 PO (09:08)
[2016-08-31] MEDS ORDERED: OMEG1CAP58 PO (09:08)
[2016-08-31] MEDS ORDERED: BUPR150T9 PO (09:08)
[2016-08-31] MEDS ORDERED: RANO500T3 PO (09:08)
[2016-08-31] MEDS ORDERED: TRAZ-28 PO (09:08)
[2016-08-31] MEDS ORDERED: ISM60TCR PO (09:08)
[2016-08-31] MEDS: RANOLAZINE ER 500 MG TAB (RANEXA) PO SCH ×2 (09:10→20:53)
[2016-08-31] MEDS: lisINopril 20 MG (ZESTRIL) TAB PO SCH (09:10)
[2016-08-31] MEDS: amLODIPine 10 MG (NORVASC) TAB PO SCH (09:10)
[2016-08-31] MEDS: OMEGA 3 (FISH OIL) 1000 MG CAP PO SCH ×2 (09:11→16:29)
[2016-08-31] MEDS: CARVEDILOL 6.25 MG (COREG) TAB PO SCH ×2 (09:11→20:53)
[2016-08-31] MEDS: PANTOPRAZOLE 40 MG (PROTONIX) TAB PO SCH (09:11)
[2016-08-31 17:34] LABS: BILIRUBIN,URINE NEGATIVE (NEGATIVE); KETONES,URINE NEGATIVE (NEGATIVE); LEUKOCYTE ESTERASE ,URINE 1+ (NEGATIVE); NITRITE,URINE NEGATIVE (NEGATIVE); PH,URINE 5 (5-9); PROTEIN,URINE 2+ (NEGATIVE); UROBILINOGEN,URINE NORMAL (NORMAL)
[2016-08-31 17:50] LABS: WBC,URINE 0-2 /HPF
[2016-08-31] MEDS: CATHETER FLUSH 10 ML SYR IV PRN (20:59)
[2016-08-31] MEDS ORDERED: ASPIRIN E.C. 81 MG (ECOTRIN) TAB PO SCH (21:00)
[2016-08-31] MEDS ORDERED: CLOPIDOGREL 75 MG (PLAVIX) TABLET PO SCH (21:00)
[2016-09-01] VITALS: BP 159/74
[2016-09-01] MEDS: CATHETER FLUSH 10 ML SYR IV PRN (00:29)
[2016-09-01] MEDS: morphine INJ 10 MG/ML 1ML (SYR OR VIAL) IV PRN ×2 (00:29→04:03)
[2016-09-01 04:00] VITALS: BP 161/85
[2016-09-01 04:32] LABS: BASOPHILS % (AUTO) 1 % (0-10); EOSINOPHILS # (AUTO) 0.3 10^3/uL (0.0-0.3); EOSINOPHILS % (AUTO) 8 % (0-10); LYMPHOCYTES # (AUTO) 1.3 X 10^3 (1.0-4.0); LYMPHOCYTES % (AUTO) 31 % (12-44); MEAN CORPUSCULAR HEMOGLOBIN 31 PG (25-34); MEAN CORPUSCULAR HGB CONC 33 G/DL (32-36); MEAN CORPUSCULAR VOLUME 94 FL (80-99); MEAN PLATELET VOLUME 9.9 FL (7.4-10.4); MONOCYTES # (AUTO) 0.5 X 10^3 (0.0-1.0); MONOCYTES % (AUTO) 12 % (0-12); NEUTROPHILS % (AUTO) 49 % (42-75); PLATELET COUNT 278 10^3/uL (130-400); RED BLOOD COUNT 3.68 10^6/uL (4.35-5.85); RED CELL DISTRIBUTION WIDTH 13.3 % (10.0-14.5); WHITE BLOOD COUNT 4.1 10^3/uL (4.3-11.0)
[2016-09-01 05:03] LABS: ALANINE AMINOTRANSFERASE 23 U/L (0-55); ALBUMIN 3.4 G/DL (3.2-4.5); ANION GAP 12 MMOL/L (5-14); ASPARTATE AMINO TRANSFERASE 19 U/L (5-34); BILIRUBIN,TOTAL 0.2 MG/DL (0.1-1.0); BLOOD UREA NITROGEN 21 MG/DL (7-18); BUN/CREATININE RATIO 17; CALCIUM 8.3 MG/DL (8.5-10.1); CARBON DIOXIDE 20 MMOL/L (21-32); CHLORIDE 108 MMOL/L (98-107); CREATININE SERUM 1.22 MG/DL (0.60-1.30); GFR ESTIMATED > 60; GLUCOSE 105 MG/DL (70-105); MAGNESIUM 2.2 MG/DL (1.8-2.4); PHOSPHORUS 3.3 MG/DL (2.3-4.7); POTASSIUM 4.4 MMOL/L (3.6-5.0); SODIUM 140 MMOL/L (135-145); TOTAL PROTEIN 6.5 G/DL (6.4-8.2)
[2016-09-01] MEDS: NS IV 1000 ML 1,000 ML IV SCH (05:44)
[2016-09-01] MEDS: KCL 20 MEQ TAB (K-DUR) PO SCH (06:00)
[2016-09-01] MEDS: POTASSIUM CL 10MEQ/50ML IVPB 50 ML IV SCH (06:00)
[2016-09-01] MEDS: MAGNESIUM 1 GM/100 ML IVPB 100 ML IV SCH (06:00)
[2016-09-01] MEDS: OMEGA 3 (FISH OIL) 1000 MG CAP PO SCH (06:58)
[2016-09-01] MEDS: PANTOPRAZOLE 40 MG (PROTONIX) TAB PO SCH (06:58)
--- NOTE | 2016-09-01 07:17 | Progress Note (SOAP) ---
Subjective Subjective/Events-last exam patient still having chest pain area Patient rates it as 7 out of 10 Patient pain in the esophagus region in the lower part. Pain goes to left shoulder and down the arm. Bilateral basilar atelectasis. Chest pain. Angina. Coronary artery disease. Hypertension. Hyperlipidemia. GERD. Tobaccoism Objective Exam Vital Signs Date Time Temp Pulse Resp B/P Pulse Ox O2 Delivery O2 Flow Rate FiO2 09/01/16 04:00 97.7 58 18 161/85 95 Room Air 09/01/16 01:48 58 09/01/16 00:00 96.9 59 18 159/74 93 Room Air 08/31/16 21:00 60 154/79 08/31/16 19:30 98.0 61 16 173/72 93 Room Air 08/31/16 19:00 61 08/31/16 16:31 96.8 54 15 110/72 94 Room Air 08/31/16 16:00 52 15 110/72 94 Room Air 08/31/16 15:00 52 12 88/51 91 Room Air 08/31/16 14:00 53 11 111/67 92 Room Air 08/31/16 13:00 55 08/31/16 13:00 51 8 128/76 92 Room Air 08/31/16 12:00 51 15 105/67 93 Room Air 08/31/16 11:38 96.4 08/31/16 11:00 49 9 129/84 92 Room Air 08/31/16 10:00 54 8 110/68 95 Room Air 08/31/16 09:00 49 8 124/80 97 Room Air 08/31/16 09:00 93 08/31/16 08:00 53 12 113/76 96 Nasal Cannula 2.00 08/31/16 08:00 96.5 08/31/16 07:55 96 2.00 I & O 09/01/16 07:00 Intake Total 1871.5 ml Output Total 650 ml Balance 1221.5 ml Capillary Refill : Less Than 3 Seconds General Appearance: No Apparent Distress WD/WN HEENT: Normal ENT Inspection Neck: Full Range of Motion Normal Inspection Non Tender Respiratory: Chest Non Tender Lungs Clear Normal Breath Sounds No Accessory Muscle Use No Respiratory Distress Cardiovascular: Regular Rate, Rhythm No Murmur Gastrointestinal: non tender soft Results Lab Laboratory Tests 08/31/16 08:15: Myoglobin 44.3, Total Creatine Kinase 72, Troponin I < 0.30 08/31/16 17:10: Urine Bacteria NEGATIVE, Urine Bilirubin NEGATIVE, Urine Casts NONE, Urine Clarity CLEAR, Urine Color YELLOW, Urine Crystals NONE, Urine Culture Indicated NO, Urine Glucose (UA) NEGATIVE, Urine Ketones NEGATIVE, Urine Leukocyte Esterase 1+H, Urine Mucus LARGEH, Urine Nitrite NEGATIVE, Urine Protein 2+H, Urine RBC TNTCH, Urine RBC (Auto) 5+H, Urine Specific [place] 1.025H, Urine Urobilinogen NORMAL, Urine WBC 0-2, Urine pH 5 09/01/16 03:47: Alanine Aminotransferase (ALT/SGPT) 23, Albumin 3.4, Alkaline Phosphatase 124, Anion Gap 12, Aspartate Amino Transf (AST/SGOT) 19, BUN/Creatinine Ratio 17, Basophils # (Auto) 0.0, Basophils (%) (Auto) 1, Blood Urea Nitrogen 21H, Calcium Level 8.3L, Carbon Dioxide Level 20L, Chloride Level 108H, Creatinine 1.22, Eosinophils # (Auto) 0.3, Eosinophils (%) (Auto) 8, Estimat Glomerular Filtration Rate > 60, Glucose Level 105, Hematocrit 34L, Hemoglobin 11.3L, Lymphocytes # (Auto) 1.3, Lymphocytes (%) (Auto) 31, Magnesium Level 2.2, Mean Corpuscular Hemoglobin 31, Mean Corpuscular Hemoglobin Concent 33, Mean Corpuscular Volume 94, Mean Platelet Volume 9.9, Monocytes # (Auto) 0.5, Monocytes (%) (Auto) 12, Neutrophils # (Auto) 2.0, Neutrophils (%) (Auto) 49, Phosphorus Level 3.3, Platelet Count 278, Potassium Level 4.4, Red Blood Count 3.68L, Red Cell Distribution Width 13.3, Sodium Level 140, Total Bilirubin 0.2, Total Protein 6.5, White Blood Count 4.1L Assessment/Plan Assessment/Plan Assess & Plan/Chief Complaint chest pain. Unstable angina. Tobaccoism. Coronary artery disease. Hypertension. Hyperlipidemia. Patient still having chest pain and rates it at a 7 out of 10 Clinical Quality Measures AMI/AHF: ASA po Prior to arrival: Yes DVT/VTE Risk/Contraindication: Risk Factor Score Per Nursin RFS Level Per Nursing on Admit: 2=Moderate Contraindications-Pharm: Other *list below* ANDRES RABAGO DO Sep 01, 2016 07:17
[2016-09-01] MEDS ORDERED: ANTACID SUSP 30 ML UDC (MYLANTA) PO PRN (07:30)
[2016-09-01 08:00] VITALS: BP 154/84
[2016-09-01] MEDS ORDERED: RANO500T3 PO (08:13)
--- NOTE | 2016-09-01 08:15 | Cardiology Progress Note ---
Subjective Subjective/Events-last exam patient is feeling the same, still having some dull achiness, no EKG changes, cardiac enzymes are normal, has small vessel disease, deemed inoperable. Continue to maximize medical therapy and educated on smoking cessation Review of Systems General: No Chills, No Night Sweats, No Fatigue, No Malaise, No Appetite, No Other HEENT: No Head Aches, No Visual Changes, No Eye Pain, No Ear Pain, No Dysphasia , No Sinus Congestion, No Post Nasal Drip, No Sore Throat, No Other Pulmonary: DyspneaNo Cough, No Pleuritic Chest Pain, No Other Cardiovascular: : Chest PainNo: Edema, Lt Headedness, Orthopnea, Other, Palpitations, Paroxysmal Noc. Dyspnea Objective-Cardiology Exam Last Set of Vital Signs Vital Signs 08/30/16 09/01/16 20:09 04:00 Temp 97.7 Pulse 58 Resp 18 B/P 161/85 Pulse Ox 95 O2 Delivery Room Air FiO2 100 Capillary Refill : Less Than 3 Seconds I&O Intake and Output 09/01/16 00:00 Intake Total 860.5 ml Output Total 650 ml Balance 210.5 ml Intake Oral 850 ml IV Total 10.5 ml Output Urine Total 650 ml # Voids 1 General: Alert, Oriented X3, Cooperative HEENT: Atraumatic, PERRLA Neck: Supple, No JVD, No Thyromegaly Lungs: Clear to Auscultation, Normal Air Movement Heart: Regular Rate, Normal S1, Normal S2, No Murmurs Abdomen: Normal Bowel Sounds, Soft, No Tenderness, No Hepatosplenomegaly, No Masses Extremities: No Clubbing, No Cyanosis, No Edema, Normal Pulses, No Tenderness/ Swelling Skin: No Rashes, No Breakdown, No Significant Lesion Neuro: Normal Gait, Normal Speech, Strength at 5/5 X4 Ext, Normal Tone, Sensation Intact Psych/Mental Status: Mental Status NL, Mood NL Results Lab Laboratory Tests 09/01/16 03:47 A/P-Cardiology Admission Diagnosis unstable angina Coronary artery disease Hypertension Hyperlipidemia Assessment/Plan Chest pain, unstable angina, worsening pain, started on Ranexa last week, I will increase the dose to 1000 mg twice daily, monitor tolerance, discharged home. Coronary artery disease, cardiac catheterization carried out July 27, 2016 revealed total occlusion of right coronary artery, severe stenosis at the proper circumflex artery, ostial circumflex stenosis, LAD had moderate disease. IVUS showed 60 percent stenosis, underwent stenting to the right coronary artery with excellent results. Patient underwent multiple cardiac catheterizations in the month of July due to his ongoing chest pain. Most recent cardiac catheterization carried out by Dr. Ortiz on August 14, 2016 revealed widely patent stented portion of the RCA which was completely occluded before. 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 Recommended conservative management for the area rather than blaming it, as a very likely that it may thrombosis and he'll off without affecting the stents. Distal circumflex artery with 90 percent stenosis, small vessel supplying very small amount of myocardium. Patient's discomfort is incessant, going on for several weeks, unchanged after the PCI of the RCA. Unlikely that his unrelenting pain is related to this, recommended continuing with medical management. continue to maximize medical therapy. Okay for discharge. Echocardiogram showed normal LV function, questionable he'll vegetation on aortic valve. Functioning normally. Continue to monitor Hypertension, controlled. Continue to monitor blood pressure/heart rate. Hyperlipidemia, restarted on Lipitor as an outpatient. Continue to monitor. Headache-complains of intermittent headache over the past several months. No change after blood pressure is better controlled. Recommend follow-up with primary care physician. History of elevated LFTs-continue to monitor. GERD with history of gastritis, continue to monitor. Tobaccoism-patient was once again educated on importance of smoking cessation. Patient will be started on Wellbutrin 150 mg twice daily History of methamphetamine use History of hiatal hernia Depression, started on Wellbutrin. Clinical Quality Measures AMI/AHF: ASA po Prior to arrival: Yes DVT/VTE Risk/Contraindication: Risk Factor Score Per Nursin RFS Level Per Nursing on Admit: 2=Moderate Contraindications-Pharm: Other *list below* ANDREA ELIAS MD Sep 01, 2016 08:15
--- NOTE | 2016-09-01 08:35 | Diagnostic Imaging Report ---
INDICATION: Dyspnea. TECHNIQUE: A frontal chest was obtained at 0532 hours. COMPARISON: 08/31/2016. FINDINGS: The heart is normal in size. There is some linear atelectatic change and/or infiltrate in the right base. There is a mild increase in the infiltrate in the left lung base compared to the prior study. IMPRESSION: Unchanged atelectatic change versus infiltrate in the right base. New infiltrate in the left base infrahilar region. Followup is recommended. Dictated by: Dictated on workstation # [id number]
[2016-09-01] MEDS: lisINopril 20 MG (ZESTRIL) TAB PO SCH (08:37)
[2016-09-01] MEDS: amLODIPine 10 MG (NORVASC) TAB PO SCH (08:38)
[2016-09-01] MEDS: RANOLAZINE ER 500 MG TAB (RANEXA) PO SCH (08:38)
[2016-09-01] MEDS: CARVEDILOL 6.25 MG (COREG) TAB PO SCH (08:38)
[2016-09-01] MEDS ORDERED: ISOSORBIDE MONONITRATE 60 MG (IMDUR) TAB PO SCH (09:00)
--- NOTE | 2016-09-02 07:10 | Discharge Summary ---
Diagnosis/Chief Complaint Date of Admission Aug 30, 2016 at 22:33 Date of Discharge Sep 01, 2016 at 09:10 Discharge Date: Sep 01, 2016 Admission Diagnosis Admission Diagnosis chest pain. Malignant hypertension. Coronary artery disease. Hyperlipidemia. Tobacco usage. Pneumonia Discharge Diagnosis chest pain. Unstable angina. Coronary artery disease area Malignant hypertension. Hyperlipidemia. GERD Reason Hospital Visit patient came out to the emergency room due to having chest pain. Patient has a history of angina coronary artery disease. Patient has gone to for his heart problem. Patient took 3 nitroglycerin with no relief of chest pain and came out to the emergency room. Patient fell 13 feet from a dumpster and landed on right side. Patient has no pain in the right chest right side of the abdomen. Patient emergency room had a hypertension emergency. Chest pain and sternal region and went to the left shoulder down the left arm. No diaphoresis but mouth ordered Surgeries hernia as a child. Head admits to some headaches. Smokes half a pack a day patient again told to stop smoking Discharge Summary Consultations cardiology Discharge Physical Examination Allergies: Coded Allergies: penicillin G (Verified Allergy, Severe, SWELLING, 12/23/11) Vitals & I&Os Vital Signs Date Time Temp Pulse Resp B/P Pulse Ox O2 Delivery O2 Flow Rate FiO2 09/01/16 08:00 98.4 62 18 154/84 95 Room Air 08/31/16 08:00 2.00 08/30/16 20:09 100 Hospital Course Labs (last 24 hrs) Laboratory Tests 08/30/16 20:00: Activated Partial Thromboplast Time 28, Alanine Aminotransferase (ALT/SGPT) 32, Albumin 4.2, Alkaline Phosphatase 150H, Anion Gap 12, Aspartate Amino Transf ( AST/SGOT) 17, BUN/Creatinine Ratio 21, Basophils # (Auto) 0.0, Basophils (%) ( Auto) 1, Blood Urea Nitrogen 25H, Calcium Level 9.2, Carbon Dioxide Level 22, Chloride Level 106, Creatinine 1.19, Eosinophils # (Auto) 0.4H, Eosinophils (%) (Auto) 7, Estimat Glomerular Filtration Rate > 60, Glucose Level 105, Hematocrit 35L, Hemoglobin 11.6L, INR Comment 1.0, Lymphocytes # (Auto) 1.6, Lymphocytes (%) (Auto) 25, Magnesium Level 1.8, Mean Corpuscular Hemoglobin 31, Mean Corpuscular Hemoglobin Concent 33, Mean Corpuscular Volume 93, Mean Platelet Volume 9.3, Monocytes # (Auto) 0.8, Monocytes (%) (Auto) 12, Myoglobin 33.8, Neutrophils # (Auto) 3.5, Neutrophils (%) (Auto) 56, Platelet Count 301, Potassium Level 4.3, Prothrombin Time 12.9, Red Blood Count 3.76L, Red Cell Distribution Width 13.4, Sodium Level 140, Total Bilirubin 0.1, Total Protein 7.2, Troponin I < 0.30, White Blood Count 6.3 08/31/16 02:00: Anion Gap 11, BUN/Creatinine Ratio 21, Basophils # (Auto) 0.0, Basophils (%) ( Auto) 1, Blood Urea Nitrogen 27H, Calcium Level 8.7, Carbon Dioxide Level 22, Chloride Level 106, Creatinine 1.31H, Eosinophils # (Auto) 0.3, Eosinophils (%) (Auto) 8, Estimat Glomerular Filtration Rate 57, Glucose Level 139H, Hematocrit 33L, Hemoglobin 11.2L, Lymphocytes # (Auto) 1.5, Lymphocytes (%) (Auto) 34, Magnesium Level 1.8, Mean Corpuscular Hemoglobin 31, Mean Corpuscular Hemoglobin Concent 34, Mean Corpuscular Volume 93, Mean Platelet Volume 9.8, Monocytes # (Auto) 0.6, Monocytes (%) (Auto) 13H, Myoglobin 42.7, Neutrophils # (Auto) 1.9, Neutrophils (%) (Auto) 44, Platelet Count 282, Potassium Level 4.2, Red Blood Count 3.60L, Red Cell Distribution Width 13.4, Sodium Level 139, Troponin I < 0.30, White Blood Count 4.2L, Cholesterol Level 168, HDL Cholesterol 34L, LDL Cholesterol Direct 100, Phosphorus Level 3.5, Total Creatine Kinase 76, Triglycerides Level 149, VLDL Cholesterol 30 08/31/16 08:15: Myoglobin 44.3, Troponin I < 0.30, Total Creatine Kinase 72 08/31/16 17:10: Urine Bacteria NEGATIVE, Urine Bilirubin NEGATIVE, Urine Casts NONE, Urine Clarity CLEAR, Urine Color YELLOW, Urine Crystals NONE, Urine Culture Indicated NO, Urine Glucose (UA) NEGATIVE, Urine Ketones NEGATIVE, Urine Leukocyte Esterase 1+H, Urine Mucus LARGEH, Urine Nitrite NEGATIVE, Urine Protein 2+H, Urine RBC TNTCH, Urine RBC (Auto) 5+H, Urine Specific [place] 1.025H, Urine Urobilinogen NORMAL, Urine WBC 0-2, Urine pH 5 09/01/16 03:47: Alanine Aminotransferase (ALT/SGPT) 23, Albumin 3.4, Alkaline Phosphatase 124, Anion Gap 12, Aspartate Amino Transf (AST/SGOT) 19, BUN/Creatinine Ratio 17, Basophils # (Auto) 0.0, Basophils (%) (Auto) 1, Blood Urea Nitrogen 21H, Calcium Level 8.3L, Carbon Dioxide Level 20L, Chloride Level 108H, Creatinine 1.22, Eosinophils # (Auto) 0.3, Eosinophils (%) (Auto) 8, Estimat Glomerular Filtration Rate > 60, Glucose Level 105, Hematocrit 34L, Hemoglobin 11.3L, Lymphocytes # (Auto) 1.3, Lymphocytes (%) (Auto) 31, Magnesium Level 2.2, Mean Corpuscular Hemoglobin 31, Mean Corpuscular Hemoglobin Concent 33, Mean Corpuscular Volume 94, Mean Platelet Volume 9.9, Monocytes # (Auto) 0.5, Monocytes (%) (Auto) 12, Neutrophils # (Auto) 2.0, Neutrophils (%) (Auto) 49, Phosphorus Level 3.3, Platelet Count 278, Potassium Level 4.4, Red Blood Count 3.68L, Red Cell Distribution Width 13.3, Sodium Level 140, Total Bilirubin 0.2, Total Protein 6.5, White Blood Count 4.1L Microbiology 08/30/16 MRSA Screen - Final, Complete MRSA not isolated Laboratory Tests 08/30/16 20:00 08/31/16 02:00 09/01/16 03:47 Pending Labs Microbiology Date/Time Source Procedure Growth Status 08/30/16 23:40 Nasal MRSA Screen - Final MRSA not isolated Complete Laboratory Tests 08/30/16 20:00: Activated Partial Thromboplast Time 28, Alanine Aminotransferase (ALT/SGPT) 32, Albumin 4.2, Alkaline Phosphatase 150, Anion Gap 12, Aspartate Amino Transf (AST /SGOT) 17, BUN/Creatinine Ratio 21, Basophils # (Auto) 0.0, Basophils (%) (Auto ) 1, Blood Urea Nitrogen 25, Calcium Level 9.2, Carbon Dioxide Level 22, Chloride Level 106, Creatinine 1.19, Eosinophils # (Auto) 0.4, Eosinophils (%) ( Auto) 7, Estimat Glomerular Filtration Rate > 60, Glucose Level 105, Hematocrit 35, Hemoglobin 11.6, INR Comment 1.0, Lymphocytes # (Auto) 1.6, Lymphocytes (%) (Auto) 25, Magnesium Level 1.8, Mean Corpuscular Hemoglobin 31, Mean Corpuscular Hemoglobin Concent 33, Mean Corpuscular Volume 93, Mean Platelet Volume 9.3, Monocytes # (Auto) 0.8, Monocytes (%) (Auto) 12, Myoglobin 33.8, Neutrophils # (Auto) 3.5, Neutrophils (%) (Auto) 56, Platelet Count 301, Potassium Level 4.3, Prothrombin Time 12.9, Red Blood Count 3.76, Red Cell Distribution Width 13.4, Sodium Level 140, Total Bilirubin 0.1, Total Protein 7.2, Troponin I < 0.30, White Blood Count 6.3 08/31/16 02:00: Anion Gap 11, BUN/Creatinine Ratio 21, Basophils # (Auto) 0.0, Basophils (%) ( Auto) 1, Blood Urea Nitrogen 27, Calcium Level 8.7, Carbon Dioxide Level 22, Chloride Level 106, Creatinine 1.31, Eosinophils # (Auto) 0.3, Eosinophils (%) ( Auto) 8, Estimat Glomerular Filtration Rate 57, Glucose Level 139, Hematocrit 33 , Hemoglobin 11.2, Lymphocytes # (Auto) 1.5, Lymphocytes (%) (Auto) 34, Magnesium Level 1.8, Mean Corpuscular Hemoglobin 31, Mean Corpuscular Hemoglobin Concent 34, Mean Corpuscular Volume 93, Mean Platelet Volume 9.8, Monocytes # (Auto) 0.6, Monocytes (%) (Auto) 13, Myoglobin 42.7, Neutrophils # ( Auto) 1.9, Neutrophils (%) (Auto) 44, Platelet Count 282, Potassium Level 4.2, Red Blood Count 3.60, Red Cell Distribution Width 13.4, Sodium Level 139, Troponin I < 0.30, White Blood Count 4.2, Cholesterol Level 168, HDL Cholesterol 34, LDL Cholesterol Direct 100, Phosphorus Level 3.5, Total Creatine Kinase 76, Triglycerides Level 149, VLDL Cholesterol 30 08/31/16 08:15: Myoglobin 44.3, Troponin I < 0.30, Total Creatine Kinase 72 08/31/16 17:10: Urine Bacteria NEGATIVE, Urine Bilirubin NEGATIVE, Urine Casts NONE, Urine Clarity CLEAR, Urine Color YELLOW, Urine Crystals NONE, Urine Culture Indicated NO, Urine Glucose (UA) NEGATIVE, Urine Ketones NEGATIVE, Urine Leukocyte Esterase 1+, Urine Mucus LARGE, Urine Nitrite NEGATIVE, Urine Protein 2+, Urine RBC TNTC, Urine RBC (Auto) 5+, Urine Specific [place] 1.025, Urine Urobilinogen NORMAL, Urine WBC 0-2, Urine pH 5 09/01/16 03:47: Alanine Aminotransferase (ALT/SGPT) 23, Albumin 3.4, Alkaline Phosphatase 124, Anion Gap 12, Aspartate Amino Transf (AST/SGOT) 19, BUN/Creatinine Ratio 17, Basophils # (Auto) 0.0, Basophils (%) (Auto) 1, Blood Urea Nitrogen 21, Calcium Level 8.3, Carbon Dioxide Level 20, Chloride Level 108, Creatinine 1.22, Eosinophils # (Auto) 0.3, Eosinophils (%) (Auto) 8, Estimat Glomerular Filtration Rate > 60, Glucose Level 105, Hematocrit 34, Hemoglobin 11.3, Lymphocytes # (Auto) 1.3, Lymphocytes (%) (Auto) 31, Magnesium Level 2.2, Mean Corpuscular Hemoglobin 31, Mean Corpuscular Hemoglobin Concent 33, Mean Corpuscular Volume 94, Mean Platelet Volume 9.9, Monocytes # (Auto) 0.5, Monocytes (%) (Auto) 12, Neutrophils # (Auto) 2.0, Neutrophils (%) (Auto) 49, Phosphorus Level 3.3, Platelet Count 278, Potassium Level 4.4, Red Blood Count 3.68, Red Cell Distribution Width 13.3, Sodium Level 140, Total Bilirubin 0.2, Total Protein 6.5, White Blood Count 4.1 Radiology Reviewed chest x-ray on admission negative. Chest x-ray on day of discharge positive for infiltrate Discussion & Recommendations patient put on antibiotic after discharge Discharge Home Medications: Active Scripts Active Ranexa (Ranolazine) 500 Mg Tab.er.12h 1,000 Mg PO BID Reported Wellbutrin Sr (Bupropion HCl) 150 Mg Tablet.er 150 Mg PO BID Co Q-10 (Ubidecarenone) 200 Mg Capsule 200 Mg PO HS Pelham 3 1,000 mg Softgel (P[place]ham-3 Fatty Acids/Fish Oil) 1 Each Capsule 1,000 Mg PO BID Isosorbide Mononitrate ER (Isosorbide Mononitrate) 60 Mg Tab 60 Mg PO DAILY Atorvastatin Calcium 10 Mg Tablet 10 Mg PO HS Promethazine Tablet (Promethazine HCl) 25 Mg Tablet 25 Mg PO TID PRN Zolpidem Tartrate 10 Mg Tablet 10 Mg PO HS PRN Nitrostat (Nitroglycerin) 0.4 Mg Tab.subl 0.4 Mg SL UD PRN PLACE 1 TAB UNDER TONGUE NEEDED FOR CHEST PAIN; IF PAIN REMAINS AFTER 5 MINUTES, CALL 911 Carvedilol 12.5 Mg Tablet 6.25 Mg PO BID TAKES 1/2 OF A (12.5 MG) TABLET Protonix (Pantoprazole Sodium) 40 Mg Tablet.dr 40 Mg PO DAILY Amlodipine Besylate 10 Mg Tablet 10 Mg PO DAILY Aspirin EC (Aspirin) 81 Mg Tablet.dr 81 Mg PO HS Clopidogrel (Clopidogrel Bisulfate) 75 Mg Tablet 75 Mg PO HS Lisinopril 20 Mg Tablet 20 Mg PO DAILY Instructions to patient/family Please see electonic discharge instructions given to patient. Clinical Quality Measures AMI/AHF: ASA po Prior to arrival: Yes DVT/VTE Risk/Contraindication: Risk Factor Score Per Nursin RFS Level Per Nursing on Admit: 2=Moderate Contraindications-Pharm: Other *list below* ANDRES RABAGO DO Sep 02, 2016 07:10
== END 2016-09-01 09:10 | disposition home or self-care (01) | DRG 303 ==
LOC: EDUNIT# 19:55 → ER 19:58 → ICU 22:33 → INTOOBSV 22:33 → UNDOADMOB 22:33 → OBSVTOIN 22:33 → ICU 22:45 → OBSVTOIN 08-31 09:36 → ICU 08-31 15:10 → UNDODISIN 09-01 09:10
PROVIDERS: ADMIT Family Medicine; ATTEND Family Medicine
DX: I25.110 Atherosclerotic heart disease of native coronary artery with unstable angina pectoris (principal); I10 Essential (primary) hypertension; E78.5 Hyperlipidemia, unspecified; F17.210 Nicotine dependence, cigarettes, uncomplicated; K21.9 Gastro-esophageal reflux disease without esophagitis; F32.9 Major depressive disorder, single episode, unspecified; Z86.73 Personal history of transient ischemic attack (TIA), and cerebral infarction without residual deficits; I25.2 Old myocardial infarction; E78.00 Pure hypercholesterolemia, unspecified; Z95.5 Presence of coronary angioplasty implant and graft; R51 Headache; R74.8 Abnormal levels of other serum enzymes
CPT/HCPCS: 36415; 71010; 80048; 80053; 80061; 81000; 82550; 83735; 83874; 84100; 84484; 85025; 85610; 85730; 87081; 93005; 93041; 96365; 96375; 96376; G0378

== ENCOUNTER 2016-09-05 12:39 | Emergency (ER) | payer OTHER ==
[~2016-09-05] VITALS: Ht 175.3 cm; Wt 74.4 kg
[~2016-09-05 12:39] MED LIST changes: +BUPR150T9 PO; +ISM60TCR PO; +OMEG1CAP58 PO; +RANO500T3 PO; +TRAZ-28 PO; +UBID200C16 PO
--- OUTSIDE RECORDS SUMMARY | 2016-09-05 12:45 | XMS REPORT | Continuity of Care Document ---
Author Author [facility] Organization [facility] Address Unknown Phone Unavailable Care Team Providers Care Wind T[employer] Blade Repair Technician Name Role Phone SolitarioSilver bianchi PCP [phone] Source Comments Some departments are not documenting in the electronic medical record. If you do not see the information that you expected, contact Release of Information in the Health Information Management department at [phone] for further assistance in locating additional records.[facility] Active Allergies and Adverse Reactions Allergen Noted [...] Active Problems Problem Noted Date Unstable angina ([facility]) 08/13/[address] [place] artery [place] heart with stable angina 08/09/2016 pectoris ([facility]) Overview: 07/29/16: heart cath ([place], [place]) - total occlusion of the right [...] MD Left Heart Catheterization With Ventriculogram 08/13/2016 [facility] Ayo King MD Unstable angina (HCC) - Encounter Shayy Murillo MD 08/16/2016 Gerson Lundy MD 08/12/2016 Telephone Cardiology Hayden Holly RN Chest Pain 08/10/2016 Pre-Procedure Cardiology Whitney Mnoae RN Pre-Procedure Instructions Instructions - Staged PCI of circ/OM 3/6 08/09/2016 Office Visit Cardiology David Simms MD New Patient - WICK TENDER RCA/Circ 08/09/2016 Hospital Cardiology David Simms MD Coronary artery disease - Encounter of [place] artery of 08/10/2016 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 Percutaneous Intervention 08/08/2016 Pre-Admit Cardiology Linda Marroquin APRN-C Orders Only 08/04/2016 Telephone Cardiology Anastasia Coffey RN Patient Instructions 08/03/2016 Pre-Procedure Cardiology Anastasia Coffey RN Cath Pre- Procedure Instructions Instructions - WICK TENDER - LVCORS +/- (08/09 - MAW) 08/03/2016 [...] Taken Blood Pressure 124/73 08/16/2016 1:06 PM CHEF GERMAN Pulse 68 08/16/2016 1:06 PM CHEF GERMAN Temperature 36.9 C (98.5 F) 08/16/2016 1:06 PM CHEF GERMAN Respiratory Rate - - Height 1.75 m (5' 8.9") 08/16/2016 12:19 PM CHEF GERMAN Weight 72.5 kg (159 lb 13.3 oz) 08/16/2016 12:19 PM CHEF GERMAN Body Mass Index 23.67 08/16/2016 12:19 PM CHEF GERMAN Oxygen Saturation 97% 08/16/2016 1:06 PM CHEF GERMAN Plan of Care Date Type Specialty Providers Description 11/08/2016 Appointment Cardiology David Simms MD [address] [facility] [address] [place] [address] [phone] (Fax) Health Maintenance Due Date Last Done Comments Hepatitis C Screening 1960 Physical (Comprehensive) 1968 Exam Pertussis Vaccine 1972 Tetanus Vaccine 1978 Colorectal Cancer 2011 Screening Influenza Vaccine 02/18/2017 Procedures from Last 3 Months Procedure Name Priority Date/Time Associated Diagnosis Comments ECG-SCAN 08/21/2016 Results for this 2:38 PM CHEF GERMAN procedure are in the results section. ECG UNCONFIRMED-SCAN 08/18/2016 Results for this 2:45 PM CHEF GERMAN procedure are in the results section. TELEMETRY STRIPS-SCAN 08/18/2016 Results for this 2:27 PM CHEF GERMAN procedure are in the results section. PROCEDURE RECORD-SCAN 08/18/2016 Results for this 2:20 PM CHEF GERMAN procedure are in the results section. ECG-SCAN 08/12/2016 Results for this 9:18 AM CHEF GERMAN procedure are in the results section. ECG-SCAN 08/12/2016 Results for this 9:18 AM CHEF GERMAN procedure are in the results section. TELEMETRY STRIPS-SCAN 08/11/2016 Results for this 11:29 AM CHEF GERMAN procedure are in the results section. PROCEDURE RECORD-SCAN 08/11/2016 Results for this 11:28 AM CHEF GERMAN procedure are in the results section. ECG UNCONFIRMED-SCAN 08/11/2016 Results for this 11:10 AM CHEF GERMAN procedure are in the results section. ECG UNCONFIRMED-SCAN 08/11/2016 Results for this 11:10 AM CHEF GERMAN procedure are in the results section. ECG-SCAN 08/11/2016 Results for this 11:09 AM CHEF GERMAN procedure are in the results section. Results [...] This study was read in conjunction with windows technical specialist, Dr. Hudson Monzon.I have personally reviewed the study and co-formulated the interpretation expressed in this report. CARDIAC CATH REPORT (08/16/2016 9:03 AM)Only the most recent of 2 results within the time period is included. Procedure Note Sat Aug 14, 2016 3:57 PM CHEF GER[facility] CARDIAC CATHETERIZATION REPORT Page 3 KAZ Diaz : 1960 #: [id number] JESSICA MR #/Billing ID #: [id number] / [id number] DATE: 08/14/2016 MANAGER OF FINANCIAL: Melisa Ortiz MD DICTATING PROVIDER: Melisa Ortiz [...] He went to a local hospital in [place], [place]. He was put on IV nitroglycerin [...] obtained with a micropuncture needle and a 5-English short sheath was advanced. A Storq wire [...] and the patient was transferred out of color laboratory technician in stable condition. TOTAL CONTRAST [...] a dissection plane site during the complex WICK TENDER. At this point, I would recommend conservative [...] this with Dr. Simms, the patient's primary general machine operator, today, who reviewed the images and agrees [...] are being made. Melisa Ortiz MD KG/MedQ /[id number] p cc: - SILVER RABAGO MAGNESIUM (08/16/2016 [...] - Sun Aug 15, 2016 12:27 AM CHEF GERMAN CTA CHEST CLINICAL HISTORY: 56-year-old male, CHEST [...] Range Color,UA YELLOW Turbidity,UA CLEAR CLEAR-CLEAR Specific Elizabeth-Urine 1.015 1.003-1.035 pH,UA 6.0 5.0-8.0 Protein,UA NEG [...] Holly et al. Am J. Cardiol. 2008, [id number]. The "goal" should be less than 130 mg/dL, but will vary according to risk factors. CT CHEST EXTERNAL IMAGING (07/31/2016 10:50 PM) Narrative This order has been auto finalized and does not contain a result. CT HEAD EXTERNAL IMAGING (07/29/2016 12:15 AM) Narrative This order has been auto finalized and does not contain a result.
[2016-09-05 14:56] LABS: BASOPHILS % (AUTO) 0 % (0-10); EOSINOPHILS # (AUTO) 0.4 10^3/uL (0.0-0.3); EOSINOPHILS % (AUTO) 7 % (0-10); LYMPHOCYTES # (AUTO) 1.1 X 10^3 (1.0-4.0); LYMPHOCYTES % (AUTO) 22 % (12-44); MEAN CORPUSCULAR HEMOGLOBIN 31 PG (25-34); MEAN CORPUSCULAR HGB CONC 34 G/DL (32-36); MEAN CORPUSCULAR VOLUME 91 FL (80-99); MEAN PLATELET VOLUME 9.5 FL (7.4-10.4); MONOCYTES # (AUTO) 0.6 X 10^3 (0.0-1.0); MONOCYTES % (AUTO) 13 % (0-12); NEUTROPHILS # (AUTO) 2.8 X 10^3 (1.8-7.8); NEUTROPHILS % (AUTO) 58 % (42-75); PLATELET COUNT 313 10^3/uL (130-400); RED BLOOD COUNT 3.95 10^6/uL (4.35-5.85); RED CELL DISTRIBUTION WIDTH 13.5 % (10.0-14.5); WHITE BLOOD COUNT 4.8 10^3/uL (4.3-11.0)
--- NOTE | 2016-09-05 15:07 | Diagnostic Imaging Report ---
INDICATION: Weakness, nauseated since yesterday. EXAMINATION: Chest 09/05/2016. COMPARISON: 09/01/2016. FINDINGS: The cardiomediastinal silhouette is unremarkable. The pulmonary vasculature is within normal limits. The lungs and pleural spaces are clear. IMPRESSION: No evidence of an acute cardiopulmonary process. Dictated by: Dictated on workstation # [id number]
[2016-09-05 15:15] LABS: ALANINE AMINOTRANSFERASE 33 U/L (0-55); ALBUMIN 4.1 G/DL (3.2-4.5); ANION GAP 10 MMOL/L (5-14); ASPARTATE AMINO TRANSFERASE 21 U/L (5-34); BILIRUBIN,TOTAL 0.3 MG/DL (0.1-1.0); BLOOD UREA NITROGEN 32 MG/DL (7-18); BUN/CREATININE RATIO 14; CALCIUM 9.2 MG/DL (8.5-10.1); CARBON DIOXIDE 21 MMOL/L (21-32); CHLORIDE 108 MMOL/L (98-107); CREATININE SERUM 2.37 MG/DL (0.60-1.30); GFR ESTIMATED 29; GLUCOSE 65 MG/DL (70-105); POTASSIUM 4.9 MMOL/L (3.6-5.0); SODIUM 139 MMOL/L (135-145); TOTAL PROTEIN 7.4 G/DL (6.4-8.2)
[2016-09-05 15:21] LABS: TROPONIN I < 0.30 NG/ML (<0.30)
[2016-09-05] MEDS ORDERED: NS IV 1000 ML 1,000 ML IV SCH (15:45)
--- NOTE | 2016-09-05 16:12 | ED Cardiac General ---
History of Present Illness General Chief Complaint: Cardiac/General Problems Stated Complaint: BLOOD PRESSURE Nursing Triage Note: PT CO OF NOT FEELING WELL TODAY, WAS RELEASED FROM HOSP WED D/T HTN, PT STATES HAS NAUSEA, PAEZ, BLURRED VISION AND LEG PAIN 03/29 Source: patient Exam Limitations: no limitations History of Present Illness Time seen by provider: 15:35 Initial Comments The patient is a 56-year-old white male was had 2 previous presentations here in the last month. These had to do with chest pain. He had multifocal disease. He had initial intervention at [facility] and was scheduled for a second intervention in the circumflex distribution later. He returned shortly with additional chest pain was again transferred up there for emergent second procedure. He has been home and Has stopped smoking. He is been trying to exercise but reports that after walking 2 blocks his legs began to exhibit pain and he can scarcely walk home. He states that his had 3 arterial punctures on the right leg and 1 on the left. He also notes that the acceleration in the symptoms began when he was increased from Ranexa 500 mg twice a day to 1000 mg twice a day. He had also had problems with hypertension and medication adjustments have provided better control there as well. Timing/Duration: 3-4 days Prior CP/Workup: cardiac cath, other (PTCA and stenting) Allergies and Home Medications Allergies Coded Allergies: penicillin G (Verified Allergy, Severe, SWELLING, 12/23/11) Home Medications Amlodipine Besylate 10 Mg Tablet 10 MG PO DAILY (Reported) Aspirin 81 Mg Tablet.dr 81 MG PO HS (Reported) Atorvastatin Calcium 10 Mg Tablet 10 MG PO HS (Reported) Bupropion HCl 150 Mg Tablet.er 150 MG PO BID (Reported) Carvedilol 12.5 Mg Tablet 6.25 MG PO BID (Reported) TAKES 1/2 OF A (12.5 MG) TABLET Clopidogrel Bisulfate 75 Mg Tablet 75 MG PO HS (Reported) Isosorbide Mononitrate 60 Mg Tab 60 MG PO DAILY (Reported) Lisinopril 20 Mg Tablet 20 MG PO DAILY (Reported) Nitroglycerin 0.4 Mg Tab.subl 0.4 MG SL UD PRN PRN CHEST PAIN (Reported) PLACE 1 TAB UNDER TONGUE NEEDED FOR CHEST PAIN; IF PAIN REMAINS AFTER 5 MINUTES, CALL 911 [place]-3 Fatty Acids/Fish Oil 1 Each Capsule 1,000 MG PO BID (Reported) Pantoprazole Sodium 40 Mg Tablet.dr 40 MG PO DAILY (Reported) Promethazine HCl 25 Mg Tablet 25 MG PO TID PRN PRN NAUSEA/VOMITING (Reported) Ranolazine 500 Mg Tab.er.12h #60 1,000 MG PO BID Prescribed by: ANDREA LAO on 09/01/16 0813 Trazodone HCl 50 Mg Tablet 50 MG PO HS PRN PRN SLEEP (Reported) Ubidecarenone 200 Mg Capsule 200 MG PO HS (Reported) Zolpidem Tartrate 10 Mg Tablet 10 MG PO HS PRN PRN SLEEP (Reported) Review of Systems Constitutional: malaise other (leg pain bilaterally) EENTM: No Symptoms Reported Respiratory: SOA With Exertion Cardiovascular: See HPI Gastrointestinal: No Symptoms Reported Genitourinary: No Symptoms Reported Musculoskeletal: muscle pain (pain with exercise bilaterally) muscle weakness Skin: no symptoms reported Psychiatric/Neurological: No Symptoms Reported Past Mdlglif-Yvhhgr-Zalgax Hx Patient Social History Alcohol Use: Denies Use Recreational Drug Use: No Smoking Status: Former Smoker Type Used: Cigarettes 2nd Hand Smoke Exposure: No Recent Foreign Travel: No Contact w/Someone Who Travel: No Recent Infectious Disease Expo: No Recent Hopitalizations: Yes (DISMISSED ON TUESDAY) Immunizations Up To Date Tetanus Booster (TDap): Less than 5yrs PED Vaccines UTD: No Date of Influenza Vaccine: Dec 28, 2014 Seasonal Allergies Seasonal Allergies: No Surgeries HX Surgeries: Yes (hernia) Surgeries: Abdominal, Coronary Stent, Orthopedic Respiratory Hx Respiratory Disorders: No Cardiovascular Hx Cardiac Disorders: Yes (CARDIAC STENTS) Cardiac Disorders: Heart Attack, High Cholesterol, Hypertension Neurological Hx Neurological Disorders: Yes (MINI STROKES-SEVERAL) Neurological Disorders: TIA Reproductive System Hx Reproductive Disorders: No Sexually Transmitted Disease: No Genitourinary Hx Genitourinary Disorders: No Gastrointestinal Hx Gastrointestinal Disorders: Yes Gastrointestinal Disorders: Gastroesophageal Reflux, Hiatal Hernia, Ulcer Musculoskeletal Hx Musculoskeletal Disorders: No Endocrine Hx Endocrine Disorders: No HEENT HX ENT Disorders: No Loss of Vision: Denies Cancer Hx Cancer: No Psychosocial Hx Psychiatric Problems: No Behavioral Health Disorders: Depression Integumentary HX Skin/Integumentary Disorder: No Blood Transfusions Hx Blood Disorders: No Family Medical History Significant Family History: Heart Disease, Hypertension Family Medial History: Arthritis 19 MOTHER INSURANCE UNDERWRITING ASSISTANT G8 SISTER FH: COPD (chronic obstructive pulmonary disease) Hypercholesterolemia 19 MOTHER Hypertension 19 MOTHER Physical Exam Vital Signs Vital Sign - Last 12Hours 09/05/16 12:40 Temp 98.1 Pulse 59 Resp 24 B/P 141/77 Pulse Ox 95 Capillary Refill : Less Than 3 Seconds General Appearance: No Apparent Distress WD/WN HEENT: Normal ENT Inspection Neck: Normal Inspection Respiratory: Chest Non Tender Lungs Clear Normal Breath Sounds No Accessory Muscle Use No Respiratory Distress Cardiovascular: Regular Rate, Rhythm No Edema No Gallop No JVD No Murmur Normal Peripheral Pulses Gastrointestinal: Normal Bowel Sounds No Organomegaly No Pulsatile Mass Non Tender Neurologic/Psychiatric: Alert Oriented x3 No Motor/Sensory Deficits Normal Mood/Affect Skin: Normal Color Warm/Dry Lymphatic: No Adenopathy Focused Exam Lactic Acid Level Laboratory Tests Test 09/05/16 14:48 Alanine Aminotransferase (ALT/SGPT) 33U/L (0-55) Albumin 4.1G/DL (3.2-4.5) Alkaline Phosphatase 149U/L (40-136) H Anion Gap 10MMOL/L (5-14) Aspartate Amino Transf (AST/SGOT) 21U/L (5-34) BUN/Creatinine Ratio 14 Blood Urea Nitrogen 32MG/DL (7-18) H Calcium Level 9.2MG/DL (8.5-10.1) Carbon Dioxide Level 21MMOL/L (21-32) Chloride Level 108MMOL/L (98-107) H Creatinine 2.37MG/DL (0.60-1.30) H Estimat Glomerular Filtration Rate 29 Glucose Level 65MG/DL (70-105) L Potassium Level 4.9MMOL/L (3.6-5.0) Sodium Level 139MMOL/L (135-145) Total Bilirubin 0.3MG/DL (0.1-1.0) Total Protein 7.4G/DL (6.4-8.2) Troponin I < 0.30NG/ML (<0.30) Progress/Results/Core Measures Results/Orders Lab Results Laboratory Tests Test 09/05/16 14:48 Range/Units Alanine Aminotransferase (ALT/SGPT) 33 0-55 U/L Albumin 4.1 3.2-4.5 G/DL Alkaline Phosphatase 149 H 40-136 U/L Anion Gap 10 5-14 MMOL/L Aspartate Amino Transf (AST/SGOT) 21 5-34 U/L BUN/Creatinine Ratio 14 Basophils # (Auto) 0.0 0.0-0.1 10^3/uL Basophils (%) (Auto) 0 0-10 % Blood Urea Nitrogen 32 H 7-18 MG/DL Calcium Level 9.2 8.5-10.1 MG/DL Carbon Dioxide Level 21 21-32 MMOL/L Chloride Level 108 H 98-107 MMOL/L Creatinine 2.37 H 0.60-1.30 MG/DL Eosinophils # (Auto) 0.4 H 0.0-0.3 10^3/uL Eosinophils (%) (Auto) 7 0-10 % Estimat Glomerular Filtration Rate 29 Glucose Level 65 L 70-105 MG/DL Hematocrit 36 L 40-54 % Hemoglobin 12.3 L 13.3-17.7 G/DL Lymphocytes # (Auto) 1.1 1.0-4.0 X 10^3 Lymphocytes (%) (Auto) 22 12-44 % Mean Corpuscular Hemoglobin 31 25-34 PG Mean Corpuscular Hemoglobin Concent 34 32-36 G/DL Mean Corpuscular Volume 91 80-99 FL Mean Platelet Volume 9.5 7.4-10.4 FL Monocytes # (Auto) 0.6 0.0-1.0 X 10^3 Monocytes (%) (Auto) 13 H 0-12 % Neutrophils # (Auto) 2.8 1.8-7.8 X 10^3 Neutrophils (%) (Auto) 58 42-75 % Platelet Count 313 130-400 10^3/uL Potassium Level 4.9 3.6-5.0 MMOL/L Red Blood Count 3.95 L 4.35-5.85 10^6/uL Red Cell Distribution Width 13.5 10.0-14.5 % Sodium Level 139 135-145 MMOL/L Total Bilirubin 0.3 0.1-1.0 MG/DL Total Protein 7.4 6.4-8.2 G/DL Troponin I < 0.30 <0.30 NG/ML White Blood Count 4.8 4.3-11.0 10^3/uL My Orders Orders-GAYLE SIDHU MD Ekg Tracing (09/05/16 14:25) Cbc With Automated Diff (09/05/16 14:25) Comprehensive Metabolic Panel (09/05/16 14:25) Troponin I (09/05/16 14:25) Chest 1 View, Ap/Pa Only (09/05/16 14:25) Ns Iv 1000 Ml (Sodium Chloride 0.9%) (09/05/16 15:45) Vital Signs/I&O Vital Sign - Last 12Hours 09/05/16 12:40 Temp 98.1 Pulse 59 Resp 24 B/P 141/77 Pulse Ox 95 Blood Pressure Mean: 98 Departure Communication Progress Notes Discussed with Dr. Lao. It is noted that the patient had a creatinine which is doubled at 2.4 as compared to a previous 1.2 on 08/31. It was agreed that as his ejection fraction is normal we will give him a liter of normal saline, reduce his Ranexa to 500 mg twice a day and he is to see Dr. Lao at 0900 on Impression Impression: Primary Impression: acute decline in renal function Disposition: HOME, SELF-CARE Condition: Stable/Unchanged Departure-Patient Inst. Decision time for Depature: 16:16 Referrals: ANDRES RABAGO DO (PCP/Family) Primary Care Physician Patient Instructions: Dehydration, Adult (DC) Add. Discharge Instructions: All discharge instructions reviewed with patient and/or family. Voiced understanding. See Dr. Lao at the office at 0900 on 09/07 Decreased ran next dose to 500 mg twice daily Continue antihypertensives and other medications at present dose Encourage fluid intake GAYLE SIDHU MD Sep 05, 2016 16:11
[2016-09-05 17:02] VITALS: BP 143/77
== END 2016-09-05 17:02 | disposition home or self-care (01) ==
LOC: EDUNIT# 12:39 → ER 12:40
DX: I12.9 Hypertensive chronic kidney disease with stage 1 through stage 4 chronic kidney disease, or unspecified chronic kidney disease (principal); N18.9 Chronic kidney disease, unspecified; M79.661 Pain in right lower leg; M79.662 Pain in left lower leg; Z79.82 Long term (current) use of aspirin; Z79.02 Long term (current) use of antithrombotics/antiplatelets; Z79.899 Other long term (current) drug therapy; Z95.5 Presence of coronary angioplasty implant and graft
CPT/HCPCS: 36415; 71010; 80053; 84484; 85025; 93005; 96360

== ENCOUNTER → 2016-09-15 08:25 | Outpatient (RCR) | payer OTHER ==
[~2016-09-15 08:25] MED LIST changes: -RT-ALBUTEROL SULF 2.5 MG/3 ML PRE-MIX VIAL IH ONE
== END | disposition home or self-care (01) ==
LOC: CR 09-10 09:57
PROVIDERS: ATTEND Internal Medicine Cardiovascular Disease
DX: Z48.812 Encounter for surgical aftercare following surgery on the circulatory system (principal); Z95.5 Presence of coronary angioplasty implant and graft
CPT/HCPCS: 93798

== ENCOUNTER → 2016-09-15 | Outpatient (CLI) | payer OTHER ==
[~2016-09-15] MED LIST changes: +CEPH500T PO; +CYCL10TA9 PO; +DOXY100T2 PO; +HYDR-3820 PO; +RT-ALBUTEROL SULF 2.5 MG/3 ML PRE-MIX VIAL IH ONE
== END ==
LOC: RT 11:03
PROVIDERS: ATTEND Nurse Practitioner Family
DX: I27.2 Other secondary pulmonary hypertension (principal); R06.00 Dyspnea, unspecified; Z72.0 Tobacco use
CPT/HCPCS: 94060; 94640; 94726; 94729

== ENCOUNTER 2016-10-04 14:20 | Outpatient (CLI) | payer SELFPAY ==
[~2016-10-04 14:20] MED LIST changes: -CEPH500T PO; -CYCL10TA9 PO; -DOXY100T2 PO; -HYDR-3820 PO
== END 2016-10-04 14:45 | disposition home or self-care (01) ==
LOC: SLEEP 14:20
PROVIDERS: ATTEND Nurse Practitioner Family
DX: G47.10 Hypersomnia, unspecified (principal); G47.50 Parasomnia, unspecified

== ENCOUNTER 2016-10-08 15:05 | Emergency (ER) | payer SELFPAY ==
[~2016-10-08] VITALS: Ht 175.3 cm; Wt 74.8 kg
--- NOTE | 2016-10-08 15:30 | ED General ---
General Chief Complaint: General Problems/Pain Stated Complaint: DIZZY, BODY ACHES FROM HEART MEDS Nursing Triage Note: PT CO OF GENERALIZED BODY ACHES, SINCE JUL WHEN HAD STENTS PUT IN AND WAS PUT ON LIPITOR AND RENEXA, CO OF DISCOMFORT OF 02/27 Nursing Sepsis Screen: No Definite Risk Source of Information: Patient Exam Limitations: No Limitations (VLAD SCOTT APRN) History of Present Illness Time Seen by Provider: 15:28 Initial Comments To ER with pain all over and generalized body aches. This is been ongoing for 2 months. At that time he was started on Ranexa. He's been on Lipitor size 40 mg but tapered down to 10 mg over the past few weeks and has not taken any of it in the past 2 days because he believes this to be the cause of his pain. However, he states that the pain seems to be more in his joints then in his muscle but he does say he has pain in his jaw even when he chews. He is unable to walk even short distance due to the pain in both legs. He also has some chest pain constant for the past 2 days. No shortness of breath. Former smoker 2 packs per day. He has not seen his doctor or prison guard for this complaint. He is very vague when describing his symptoms Timing/Duration: 1-2 Days Severity: Moderate Associated Systoms: No Cough (VALD SCOTT APRN) Allergies and Home Medications Allergies Coded Allergies: penicillin G (Verified Allergy, Severe, SWELLING, 12/23/11) Home Medications Amlodipine Besylate 10 Mg Tablet, 10 MG PO DAILY, (Reported) Aspirin 81 Mg Tablet.dr, 81 MG PO HS, (Reported) Atorvastatin Calcium 10 Mg Tablet, 10 MG PO HS, (Reported) Bupropion HCl 150 Mg Tablet.er, 150 MG PO BID, (Reported) Carvedilol 12.5 Mg Tablet, 6.25 MG PO BID, (Reported) TAKES 1/2 OF A (12.5 MG) TABLET Cephalexin 500 Mg Tablet, 500 MG PO BID, #14 Ref 0 Prescribed by: BRITNEY CEE on 10/08/16 8826 Clopidogrel Bisulfate 75 Mg Tablet, 75 MG PO HS, (Reported) Isosorbide Mononitrate 60 Mg Tab, 60 MG PO DAILY, (Reported) Lisinopril 20 Mg Tablet, 20 MG PO DAILY, (Reported) Nitroglycerin 0.4 Mg Tab.subl, 0.4 MG SL UD PRN for CHEST PAIN, (Reported) PLACE 1 TAB UNDER TONGUE NEEDED FOR CHEST PAIN; IF PAIN REMAINS AFTER 5 MINUTES, CALL 911 [place]-3 Fatty Acids/Fish Oil 1 Each Capsule, 1,000 MG PO BID, (Reported) Pantoprazole Sodium 40 Mg Tablet.dr, 40 MG PO DAILY, (Reported) Promethazine HCl 25 Mg Tablet, 25 MG PO TID PRN for NAUSEA/VOMITING, (Reported) Ranolazine 500 Mg Tab.er.12h, 1,000 MG PO BID, #60 Ref 2 Prescribed by: ANDREA ELIAS on 09/01/16 0813 Trazodone HCl 50 Mg Tablet, 50 MG PO HS PRN for SLEEP, (Reported) Ubidecarenone 200 Mg Capsule, 200 MG PO HS, (Reported) Zolpidem Tartrate 10 Mg Tablet, 10 MG PO HS PRN for SLEEP, (Reported) Constitutional: see HPI, No chills, No diaphoresis, No fever EENTM: see HPI Respiratory: no symptoms reported, No cough, No hemoptysis, No short of breath Cardiovascular: see HPI, chest pain Genitourinary: no symptoms reported, No decreased output, No discharge, No dysuria, No frequency, No hematuria, No hesitancy Musculoskeletal: see HPI, joint pain, muscle pain Skin: no symptoms reported Psychiatric/Neurological: No Symptoms Reported Hematologic/Lymphatic: No Symptoms Reported Immunological/Allergic: no symptoms reported (VLAD SCOTT APRN) Past Deshudb-Hvtgiq-Wszlwd Hx Patient Social History Alcohol Use: Denies Use Recreational Drug Use: No Smoking Status: Former Smoker Type Used: Cigarettes 2nd Hand Smoke Exposure: No Recent Foreign Travel: No Contact w/Someone Who Travel: No Recent Infectious Disease Expo: No Recent Hopitalizations: No (VLAD SCOTT APRN) Immunizations Up To Date Tetanus Booster (TDap): Less than 5yrs PED Vaccines UTD: No Date of Influenza Vaccine: Dec 28, 2014 (VLAD SCOTT APRN) Seasonal Allergies Seasonal Allergies: No (VLAD SCOTT APRN) Surgeries HX Surgeries: Yes (hernia) Surgeries: Abdominal, Coronary Stent, Orthopedic (VLAD SCOTT APRN) Respiratory Hx Respiratory Disorders: No (VLAD SCOTT APRN) Cardiovascular Hx Cardiac Disorders: Yes (CARDIAC STENTS) Cardiac Disorders: Heart Attack, High Cholesterol, Hypertension (VLAD SCOTT APRN) Neurological Hx Neurological Disorders: Yes (MINI STROKES-SEVERAL) Neurological Disorders: TIA (VLAD SCOTT APRN) Reproductive System Hx Reproductive Disorders: No Sexually Transmitted Disease: No (VLAD SCOTT APRN) Genitourinary Hx Genitourinary Disorders: No (VLAD SCOTT APRN) Gastrointestinal Hx Gastrointestinal Disorders: Yes Gastrointestinal Disorders: Gastroesophageal Reflux, Hiatal Hernia, Ulcer (VLAD SCOTT APRN) Musculoskeletal Hx Musculoskeletal Disorders: No (VLAD SCOTT APRN) Endocrine Hx Endocrine Disorders: No (VLAD SCOTT APRN) HEENT HX ENT Disorders: No Loss of Vision: Denies (VLAD SCOTT APRN) Cancer Hx Cancer: No (VLAD SCOTT APRN) Psychosocial Hx Psychiatric Problems: No Behavioral Health Disorders: Depression (VLAD SCOTT APRN) Integumentary HX Skin/Integumentary Disorder: No (VLAD SCOTT APRN) Blood Transfusions Hx Blood Disorders: No (VLAD SCOTT APRN) Family Medical History Significant Family History: Heart Disease, Hypertension Family Medial History: Arthritis 19 MOTHER SHORT FILLER BUNCH MACHINE OPERATOR G8 SISTER FH: COPD (chronic obstructive pulmonary disease) Hypercholesterolemia 19 MOTHER Hypertension 19 MOTHER (VLAD SCOTT APRN) Family Medial History: Arthritis 19 MOTHER SHORT FILLER BUNCH MACHINE OPERATOR G8 SISTER FH: COPD (chronic obstructive pulmonary disease) Hypercholesterolemia 19 MOTHER Hypertension 19 MOTHER (BRITNEY CEE MD) Physical Exam Vital Signs Vital Sign - Last 12Hours 10/08/16 15:15 Temp 97.8 Pulse 63 Resp 18 B/P (MAP) 118/79 Pulse Ox 98 (BRITNEY CEE MD) Vital Signs Capillary Refill : Less Than 3 Seconds (VLAD SCOTT APRN) General Appearance: No Apparent Distress, WD/WN HEENT: PERRL/EOMI, TMs Normal Neck: Full Range of Motion, Normal Inspection Respiratory: Normal Breath Sounds, No Accessory Muscle Use, No Respiratory Distress Cardiovascular: Regular Rate, Rhythm, Normal Peripheral Pulses Gastrointestinal: Normal Bowel Sounds, Non Tender, Soft Extremity: Normal Capillary Refill, Normal Inspection Neurologic/Psychiatric: Alert, Oriented x3, No Motor/Sensory Deficits Skin: Normal Color, Warm/Dry (VLAD SCOTT APRN) Progress/Results/Core Measures Results/Orders Lab Results Laboratory Tests Test 10/08/16 15:40 10/08/16 16:22 Range/Units White Blood Count 4.2 L 4.3-11.0 10^3/uL Red Blood Count 4.09 L 4.35-5.85 10^6/uL Hemoglobin 12.5 L 13.3-17.7 G/DL Hematocrit 38 L 40-54 % Mean Corpuscular Volume 92 80-99 FL Mean Corpuscular Hemoglobin 31 25-34 PG Mean Corpuscular Hemoglobin Concent 33 32-36 G/DL Red Cell Distribution Width 13.6 10.0-14.5 % Platelet Count 279 130-400 10^3/uL Mean Platelet Volume 10.1 7.4-10.4 FL Neutrophils (%) (Auto) 47 42-75 % Lymphocytes (%) (Auto) 31 12-44 % Monocytes (%) (Auto) 13 H 0-12 % Eosinophils (%) (Auto) 9 0-10 % Basophils (%) (Auto) 1 0-10 % Neutrophils # (Auto) 1.9 1.8-7.8 X 10^3 Lymphocytes # (Auto) 1.3 1.0-4.0 X 10^3 Monocytes # (Auto) 0.6 0.0-1.0 X 10^3 Eosinophils # (Auto) 0.4 H 0.0-0.3 10^3/uL Basophils # (Auto) 0.0 0.0-0.1 10^3/uL Erythrocyte Sedimentation Rate 30 0-30 MM/HR Sodium Level 140 135-145 MMOL/L Potassium Level 4.4 3.6-5.0 MMOL/L Chloride Level 108 H 98-107 MMOL/L Carbon Dioxide Level 21 21-32 MMOL/L Anion Gap 11 5-14 MMOL/L Blood Urea Nitrogen 26 H 7-18 MG/DL Creatinine 1.58 H 0.60-1.30 MG/DL Estimat Glomerular Filtration Rate 46 BUN/Creatinine Ratio 16 Glucose Level 154 H 70-105 MG/DL Calcium Level 8.8 8.5-10.1 MG/DL Total Bilirubin 0.4 0.1-1.0 MG/DL Aspartate Amino Transf (AST/SGOT) 15 5-34 U/L Alanine Aminotransferase (ALT/SGPT) 23 0-55 U/L Alkaline Phosphatase 116 40-136 U/L Total Creatine Kinase 65 30-200 U/L Myoglobin 48.6 10.0-92.0 NG/ML Troponin I < 0.30 <0.30 NG/ML Total Protein 7.1 6.4-8.2 G/DL Albumin 4.1 3.2-4.5 G/DL Urine Color YELLOW Urine Clarity CLEAR Urine pH 5 5-9 Urine Specific Coden 1.025 H 1.016-1.022 Urine Protein 2+ H NEGATIVE Urine Glucose (UA) NEGATIVE NEGATIVE Urine Ketones NEGATIVE NEGATIVE Urine Nitrite NEGATIVE NEGATIVE Urine Bilirubin NEGATIVE NEGATIVE Urine Urobilinogen NORMAL NORMAL MG/DL Urine Leukocyte Esterase 2+ H NEGATIVE Urine RBC (Auto) 4+ H NEGATIVE Urine RBC 10-25 H /HPF Urine WBC 10-25 H /HPF Urine Crystals NONE /LPF Urine Bacteria TRACE /HPF Urine Casts NONE /LPF Urine Mucus NEGATIVE /LPF Urine Culture Indicated YES (BRITNEY CEE MD) My Orders Orders - BRITNEY CEE MD Ns Iv 1000 Ml (Sodium Chloride 0.9%) (10/08/16 15:50) Chest Pa/Lat (2 View) (10/08/16 16:10) (BRITNEY CEE MD) Medications Given in ED Current Medications Medications Dose Ordered Sig/Mckenzie Route Start Time Stop Time Status Last Admin Dose Admin Sodium Chloride 1,000 ml @ 0 mls/hr Q0M ONCE IV 10/08/16 15:50 10/08/16 15:51 DC 10/08/16 15:58 1,000 MLS/HR (BRITNEY CEE MD) Vital Signs/I&O Vital Sign - Last 12Hours 10/08/16 15:15 Temp 97.8 Pulse 63 Resp 18 B/P (MAP) 118/79 Pulse Ox 98 (BRITNEY CEE MD) Blood Pressure Mean: 92 Progress Note : Progress Note I have seen and evaluated the patient with Vlad Scott APRN. We have reviewed , discussed and I have directed the plan of care. I agree with above except as indicated. Patient is here with a muscle and joint pain including extremities, chest and jaw. States jaw pain is worse when he eats and otherwise is resolved. He has early fatigue and shortness of breath with activity. He has been on a statin and stopped this 2 days ago. Reports that symptoms onset after initiating Ranexa. Labs, EKG and chest x-ray pending. Monitor patient. 1700: Findings reviewed. No acute findings other than possible urinary tract infection. We will treat this outpatient. Patient instructed to drink more fluids. He'll follow up with his doctor and discuss statin therapy. He will stay off the Lipitor. Discharged home with return precautions. Patient verbalize understanding instructions and agreement with plan. (BRITNEY CEE MD) ECG Initial ECG Impression Date: Oct 08, 2016 Initial ECG Impression Time: 15:33 Initial ECG Rate: 67 Initial ECG Rhythm: Normal Sinus Comment Sinus rhythm with borderline ST elevation in the lateral leads and questionable aVL. Overall similar appearance to previous of 09/05/16. No evidence of ST elevation [place]. Interpreted by me. (BRITNEY CEE MD) Diagnostic Imaging Diagonstic Imaging: Xray Plain Films/CT/US/NM/MRI: chest Comments VIA [facility]. [place], [place] NAME: EZEQUIEL VITALE [facility] REC#: [id number] PT STATUS: REG ER : 1960 PHYSICIAN: BRITNEY CEE MD ADMIT DATE: 10/08/16/ER Draft Date of Exam:10/08/16 CHEST PA/LAT (2 VIEW) INDICATION: Coronary artery disease and complaint of pain all over body. EXAMINATION: PA and lateral views of the chest were obtained at 4:34 p.m. COMPARISON: 09/05/16. FINDINGS: Heart and mediastinal silhouette are normal in appearance. The lungs are clear. There is no pneumothorax or pleural fluid. Coronary artery stents are visualized over the cardiac silhouette. IMPRESSION: No acute process in the chest. Dictated on workstation # [id number] Dict: 10/08/16 1626 Trans: 10/08/16 1630 [facility] [id number] Interpreted by: YOAN GARCIA MD Electronically signed by: (BRITNEY CEE MD) Departure Impression Impression: Primary Impression: Myalgia Additional Impressions: Arthralgia Qualified Codes: M25.50 - Pain in unspecified joint UTI (urinary tract infection) Qualified Codes: N30.00 - Acute cystitis without hematuria Disposition: HOME, SELF-CARE Condition: Stable Departure-Patient Inst. Referrals: ANDRES RABAGO DO (PCP/Family) Primary Care Physician Patient Instructions: Muscle and Bone Pain (DC), Urinary Tract Infection, Adult (DC) Add. Discharge Instructions: All discharge instructions reviewed with patient and/or family. Voiced understanding. Take medications as directed. Drink plenty of fluids. Follow-up with your Dr. on Tuesday or Tuesday for recheck and further evaluation. Do not take Lipitor. You may take Tylenol 1000 mg every 8 hours as needed for pain. Return for worse pain, fever, vomiting, weakness, breathing problems or other concerns as needed. Scripts Cephalexin (Cephalexin) 500 Mg Tablet 500 MG PO BID, #14 TAB 0 Refills Prov: BRITNEY CEE MD 10/08/16 VLAD SCOTT APRN Oct 08, 2016 15:30 BRITNEY CEE MD Oct 08, 2016 15:50
[2016-10-08] MEDS ORDERED: NS IV 1000 ML 1,000 ML IV ONE (15:50)
[2016-10-08 15:52] LABS: BASOPHILS % (AUTO) 1 % (0-10); EOSINOPHILS # (AUTO) 0.4 10^3/uL (0.0-0.3); EOSINOPHILS % (AUTO) 9 % (0-10); LYMPHOCYTES # (AUTO) 1.3 X 10^3 (1.0-4.0); LYMPHOCYTES % (AUTO) 31 % (12-44); MEAN CORPUSCULAR HEMOGLOBIN 31 PG (25-34); MEAN CORPUSCULAR HGB CONC 33 G/DL (32-36); MEAN CORPUSCULAR VOLUME 92 FL (80-99); MEAN PLATELET VOLUME 10.1 FL (7.4-10.4); MONOCYTES # (AUTO) 0.6 X 10^3 (0.0-1.0); MONOCYTES % (AUTO) 13 % (0-12); NEUTROPHILS # (AUTO) 1.9 X 10^3 (1.8-7.8); NEUTROPHILS % (AUTO) 47 % (42-75); PLATELET COUNT 279 10^3/uL (130-400); RED BLOOD COUNT 4.09 10^6/uL (4.35-5.85); RED CELL DISTRIBUTION WIDTH 13.6 % (10.0-14.5); WHITE BLOOD COUNT 4.2 10^3/uL (4.3-11.0)
[2016-10-08 16:10] LABS: ALANINE AMINOTRANSFERASE 23 U/L (0-55); ALBUMIN 4.1 G/DL (3.2-4.5); ANION GAP 11 MMOL/L (5-14); ASPARTATE AMINO TRANSFERASE 15 U/L (5-34); BILIRUBIN,TOTAL 0.4 MG/DL (0.1-1.0); BLOOD UREA NITROGEN 26 MG/DL (7-18); BUN/CREATININE RATIO 16; CALCIUM 8.8 MG/DL (8.5-10.1); CARBON DIOXIDE 21 MMOL/L (21-32); CHLORIDE 108 MMOL/L (98-107); CREATINE KINASE 65 U/L (30-200); CREATININE SERUM 1.58 MG/DL (0.60-1.30); GFR ESTIMATED 46; GLUCOSE 154 MG/DL (70-105); POTASSIUM 4.4 MMOL/L (3.6-5.0); SODIUM 140 MMOL/L (135-145); TOTAL PROTEIN 7.1 G/DL (6.4-8.2)
[2016-10-08 16:12] LABS: ERYTHROCYTE SEDIMENTATION RATE 30 MM/HR (0-30)
[2016-10-08 16:13] LABS: MYOGLOBIN SERUM 48.6 NG/ML (10.0-92.0); TROPONIN I < 0.30 NG/ML (<0.30)
--- NOTE | 2016-10-08 16:30 | Diagnostic Imaging Report ---
INDICATION: Coronary artery disease and complaint of pain all over body. EXAMINATION: PA and lateral views of the chest were obtained at 4:34 p.m. COMPARISON: 09/05/16. FINDINGS: Heart and mediastinal silhouette are normal in appearance. The lungs are clear. There is no pneumothorax or pleural fluid. Coronary artery stents are visualized over the cardiac silhouette. IMPRESSION: No acute process in the chest. Dictated by: Dictated on workstation # [id number]
[2016-10-08 16:32] LABS: BILIRUBIN,URINE NEGATIVE (NEGATIVE); KETONES,URINE NEGATIVE (NEGATIVE); LEUKOCYTE ESTERASE ,URINE 2+ (NEGATIVE); NITRITE,URINE NEGATIVE (NEGATIVE); PH,URINE 5 (5-9); PROTEIN,URINE 2+ (NEGATIVE); UROBILINOGEN,URINE NORMAL (NORMAL)
[2016-10-08] MEDS ORDERED: CEPH500T PO (17:08)
[2016-10-08 17:15] VITALS: BP 118/79
[2016-10-12 17:31] LABS: EHRLICHIA CHAFFEENSIS G ABY <1:16 (<1:16)
[2016-10-12 17:33] LABS: LYME AB INTERP Negative (NEGATIVE)
[2016-10-12 17:34] LABS: TULAREMIA ANTIBODY <1:20
[2016-10-12 17:35] LABS: IGG ROCKY MOUNTAIN SPOTTED FEV <1:16 (<1:16); IGM ROCKY MOUNTAIN SPOTTED FEV <1:10 (<1:10)
[2016-10-12 17:42] LABS: LYME AB G M 0.03 INDEX (0.00-0.89)
== END 2016-10-08 17:15 | disposition home or self-care (01) ==
LOC: EDUNIT# 15:05 → ER 15:06
DX: M79.1 Myalgia (principal); M25.9 Joint disorder, unspecified; N30.91 Cystitis, unspecified with hematuria; I10 Essential (primary) hypertension; Z79.02 Long term (current) use of antithrombotics/antiplatelets; Z79.899 Other long term (current) drug therapy; Z79.82 Long term (current) use of aspirin; Z87.891 Personal history of nicotine dependence; Z95.5 Presence of coronary angioplasty implant and graft
CPT/HCPCS: 36415; 71020; 80053; 81000; 82550; 83874; 84484; 85025; 85652; 86618; 86666; 86668; 86757; 87088; 93005; 96360

== ENCOUNTER 2016-10-26 11:03 | Emergency (ER) | payer OTHER ==
[~2016-10-26] VITALS: Ht 175.3 cm; Wt 74.8 kg
[~2016-10-26 11:03] MED LIST changes: +CEPH500T PO
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
[2016-10-26 11:41] LABS: MEAN PLATELET VOLUME 9.8 FL (7.4-10.4); RED BLOOD COUNT 4.09 10^6/uL (4.35-5.85); RED CELL DISTRIBUTION WIDTH 13.6 % (10.0-14.5); WHITE BLOOD COUNT 3.8 10^3/uL (4.3-11.0)
[2016-10-26 11:59] LABS: ALANINE AMINOTRANSFERASE 19 U/L (0-55); ALBUMIN 4.3 G/DL (3.2-4.5); ANION GAP 8 MMOL/L (5-14); ASPARTATE AMINO TRANSFERASE 18 U/L (5-34); BILIRUBIN,DIRECT 0.1 MG/DL (0.0-0.3); BILIRUBIN,INDIRECT 0.2 MG/DL; BILIRUBIN,TOTAL 0.3 MG/DL (0.1-1.0); BLOOD UREA NITROGEN 36 MG/DL (7-18); BUN/CREATININE RATIO 18; CALCIUM 9.2 MG/DL (8.5-10.1); CARBON DIOXIDE 20 MMOL/L (21-32); CHLORIDE 112 MMOL/L (98-107); CREATININE SERUM 1.96 MG/DL (0.60-1.30); GFR ESTIMATED 36; GLUCOSE 76 MG/DL (70-105); SODIUM 140 MMOL/L (135-145); TOTAL PROTEIN 7.5 G/DL (6.4-8.2)
[2016-10-26 12:02] LABS: ALCOHOL < 10 MG/DL (<10)
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
[2016-10-26] MEDS ORDERED: fentaNYL INJECTION 100 MCG/2 ML AMP IVP STA (12:38)
[2016-10-26 13:24] LABS: BILIRUBIN,URINE NEGATIVE (NEGATIVE); KETONES,URINE NEGATIVE (NEGATIVE); LEUKOCYTE ESTERASE ,URINE 1+ (NEGATIVE); NITRITE,URINE NEGATIVE (NEGATIVE); PH,URINE 5 (5-9); PROTEIN,URINE 1+ (NEGATIVE); UROBILINOGEN,URINE NORMAL (NORMAL)
[2016-10-26 13:39] LABS: HYALINE CASTS, URINE RARE /LPF; SQUAMOUS EPITHELIAL CELL,UR RARE /HPF
[2016-10-26] MEDS ORDERED: KETOROLAC 30 MG/ML VIAL IVP STA (13:54)
[2016-10-26] MEDS ORDERED: HYDROcodone/APAP 10 MG/325 MG (LORTAB) TAB PO STA (13:54)
[2016-10-26] MEDS ORDERED: HYDR-3820 PO (14:19)
[2016-10-26] MEDS ORDERED: CYCL10TA9 PO (14:19)
[2016-10-26] MEDS ORDERED: DOXY100T2 PO (14:19)
[2016-10-26 14:42] VITALS: BP 108/67
== END 2016-10-26 14:42 | disposition home or self-care (01) ==
LOC: EDUNIT# 11:03 → ER 11:05
DX: S16.1XXA Strain of muscle, fascia and tendon at neck level, initial encounter (principal); S29.012A Strain of muscle and tendon of back wall of thorax, initial encounter; N39.0 Urinary tract infection, site not specified; I10 Essential (primary) hypertension; I25.2 Old myocardial infarction; F17.210 Nicotine dependence, cigarettes, uncomplicated; Z79.02 Long term (current) use of antithrombotics/antiplatelets; Z79.82 Long term (current) use of aspirin; Z79.899 Other long term (current) drug therapy; Z95.5 Presence of coronary angioplasty implant and graft; V68.5XXA Driver of heavy transport vehicle injured in noncollision transport accident in traffic accident, initial encounter; Y92.410 Unspecified street and highway as the place of occurrence of the external cause; Y99.0 Civilian activity done for income or pay
CPT/HCPCS: 36415; 70450; 71010; 72125; 72170; 73030; 80048; 80076; 80320; 81000; 85027; 87088; 99283

== ENCOUNTER 2017-01-12 01:17 | Emergency (ER) | payer OTHER ==
[~2017-01-12] VITALS: Ht 175.3 cm; Wt 72.6 kg
[~2017-01-12 01:17] MED LIST changes: +CYCL10TA9 PO; +DOXY100T2 PO; +HYDR-3820 PO
[2017-01-12] MEDS ORDERED: ASPIRIN 325 MG (5 GR) TABLET ONE (01:18)
[2017-01-12] MEDS ORDERED: ASPIRIN 81 MG CHEW (CHILDREN'S ASA) ONE (01:20)
[2017-01-12 01:37] LABS: BASOPHILS % (AUTO) 1 % (0-10); EOSINOPHILS # (AUTO) 0.4 10^3/uL (0.0-0.3); EOSINOPHILS % (AUTO) 6 % (0-10); LYMPHOCYTES # (AUTO) 2.3 X 10^3 (1.0-4.0); LYMPHOCYTES % (AUTO) 32 % (12-44); MEAN CORPUSCULAR HEMOGLOBIN 31 PG (25-34); MEAN CORPUSCULAR HGB CONC 33 G/DL (32-36); MEAN CORPUSCULAR VOLUME 94 FL (80-99); MEAN PLATELET VOLUME 10.3 FL (7.4-10.4); MONOCYTES # (AUTO) 0.9 X 10^3 (0.0-1.0); MONOCYTES % (AUTO) 12 % (0-12); NEUTROPHILS # (AUTO) 3.5 X 10^3 (1.8-7.8); NEUTROPHILS % (AUTO) 49 % (42-75); PLATELET COUNT 290 10^3/uL (130-400); RED BLOOD COUNT 4.28 10^6/uL (4.35-5.85); RED CELL DISTRIBUTION WIDTH 13.4 % (10.0-14.5); WHITE BLOOD COUNT 7.1 10^3/uL (4.3-11.0)
[2017-01-12 01:40] LABS: INR 0.9 (0.8-1.4); PROTHROMBIN TIME PATIENT 11.5 SEC (12.2-14.7)
[2017-01-12] MEDS ORDERED: NITROGLYCERIN 2% OINT 1 GM UNIT DOSE PACKET TOP ONE (01:45)
[2017-01-12] MEDS ORDERED: morphine INJ 10 MG/ML 1ML (SYR OR VIAL) IVP ONE (01:45)
[2017-01-12] MEDS ORDERED: ASPIRIN 81 MG CHEW (CHILDREN'S ASA) PO ONE (01:45)
[2017-01-12 01:52] LABS: ALANINE AMINOTRANSFERASE 57 U/L (0-55); ANION GAP 11 MMOL/L (5-14); ASPARTATE AMINO TRANSFERASE 27 U/L (5-34); BILIRUBIN,TOTAL 0.2 MG/DL (0.1-1.0); BLOOD UREA NITROGEN 15 MG/DL (7-18); BUN/CREATININE RATIO 9; CARBON DIOXIDE 23 MMOL/L (21-32); CHLORIDE 105 MMOL/L (98-107); CREATININE SERUM 1.64 MG/DL (0.60-1.30); GFR ESTIMATED 44; GLUCOSE 104 MG/DL (70-105); POTASSIUM 3.9 MMOL/L (3.6-5.0); SODIUM 139 MMOL/L (135-145); TOTAL PROTEIN 7.2 GM/DL (6.4-8.2)
[2017-01-12 01:58] LABS: MYOGLOBIN SERUM 51.7 NG/ML (10.0-92.0)
[2017-01-12] MEDS ORDERED: LABETALOL HCL 20 MG/4 ML VIAL ONE (02:22)
[2017-01-12] MEDS ORDERED: NALOXONE 0.4 MG/ML 1 ML (NARCAN) VIAL IV ONE (02:45)
[2017-01-12] MEDS ORDERED: NS IV 1000 ML 1,000 ML IV ONE (02:57)
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
[2017-01-12 03:46] LABS: BILIRUBIN,URINE NEGATIVE (NEGATIVE); KETONES,URINE 1+ (NEGATIVE); LEUKOCYTE ESTERASE ,URINE 1+ (NEGATIVE); NITRITE,URINE NEGATIVE (NEGATIVE); PH,URINE 5 (5-9); PROTEIN,URINE 1+ (NEGATIVE); UROBILINOGEN,URINE NORMAL (NORMAL)
[2017-01-12] MEDS ORDERED: ALTEPLASE 100 MG/VIAL (ACTIVASE) IV ONE (03:48)
[2017-01-12] MEDS ORDERED: NS (IVPB) 250 ML ONE (03:53)
[2017-01-12] MEDS ORDERED: niCARdipine IV FOR DRIP 50 MG KIT ONE (03:53)
[2017-01-12 03:55] LABS: HYALINE CASTS, URINE RARE /LPF; RENAL EPITHELIAL CELLS,URINE RARE /HPF; SQUAMOUS EPITHELIAL CELL,UR RARE /HPF; WBC,URINE RARE /HPF
[2017-01-12] MEDS ORDERED: IOHEXOL 350 MG/ML 150 ML (OMNIPAQUE 350) VIAL IV ONE (04:15)
[2017-01-12] MEDS ORDERED: NS 100 ML (IVPB) BAG IV ONE (04:15)
[2017-01-12] MEDS ORDERED: niCARdipine IV 50 MG in NS (IVPB) 230 ML IV SCH (04:30)
[2017-01-12] MEDS ORDERED: fentaNYL INJECTION 100 MCG/2 ML AMP IVP ONE (04:30)
[2017-01-12 06:00] VITALS: BP 154/88
--- NOTE | 2017-01-12 07:56 | Diagnostic Imaging Report ---
INDICATION: Right-sided weakness. Hypertension. Comparison with 10/26/2016. Ventricles and cortical gyral pattern are normal. There is no intracranial hemorrhage. No mass effect. No extra-axial fluid collection. Basal cisterns are clear. CP angles are normal. Mastoid air cells and paranasal sinuses are clear. IMPRESSION: Negative CT scan of the head without contrast. No significant change since previous exam. These findings are concordant with the preliminary report. Dictated by: Dictated on workstation # [id number]
--- NOTE | 2017-01-12 07:59 | Diagnostic Imaging Report ---
INDICATION: Chest pain. Comparison with 10/26/2016. Findings: Portable chest show the lungs to be clear. The heart is not enlarged. No hilar adenopathy. No pulmonary edema. No pneumothorax or pleural effusion. IMPRESSION: Normal portable chest. Dictated by: Dictated on workstation # [id number]
--- NOTE | 2017-01-12 09:51 | Diagnostic Imaging Report ---
EXAMINATION: CT head and neck performed with intravenous contrast. INDICATION: Right-sided weakness and hypertension. Findings: CT neck: There is a hypodense lesion seen in the right submandibular area measuring 1.3 CM likely related to a mildly enlarged lymph node. The parotid and submandibular glands appear symmetric. The thyroid gland appears unremarkable. The mucosal pharyngeal space appear unremarkable. There is a soft plaque seen in the mid to distal aspect of the left common carotid artery associated with the 40% stenosis. There is otherwise no significant plaque within the internal carotid artery. The right common, and internal carotid arteries appear unremarkable. External carotid artery on both sides appear unremarkable. The origin of the great vessels from the arch appears normal. CT head: There is no enhancing lesion seen in the brain. There is a normal brain parenchymal density seen. No extra-axial fluid collection is noted. There is no hydrocephalus. The vascular enhancement is grossly unremarkable on this non-angiogram routine protocol enhanced CT scan of the head is seen. The calvarium, the paranasal sinuses and orbits appear grossly unremarkable. IMPRESSION: CT neck: 1. A 1.3 cm cervical lesion at the level II marcia station could be an inflammatory or infectious related lymph node. Correlate clinically. 2. There is soft plaque along the mid left common carotid artery associated with about 40% degree of stenosis. CT head: No definite abnormality. Dictated by: Dictated on workstation # [id number]
--- NOTE | 2017-01-12 19:44 | Diagnostic Imaging Report ---
PROCEDURE: CT angiography of the chest with contrast. TECHNIQUE: Multiple contiguous axial images were obtained through the chest after uneventful bolus administration of intravenous contrast. Reconstructed CTA MIP acquisitions were also performed. INDICATION: Right-sided weakness and hypertension. Please note that this exam was just completed and added to the "unread list" at about 3:00 p.m. The exam was performed at 3:23 a.m. There is a [facility] report attached. 125 mL of Omnipaque-350 is administered intravenously. FINDINGS: The pulmonary arteries are well opacified with no filling defects to suggest pulmonary embolism. There are filling defects seen in the left lower lobe pulmonary veins, small tributaries, and within the main lower left pulmonary vein extending to the ostium level over its draining point into the left atrium. This is concerning for thrombosis in the lower left pulmonary vein and its tributaries. At the segmental level, these appear to be completely occlusive of the vessel and the main lower left pulmonary vein is partially occluded. This was not seen on the prior exam. The other pulmonary veins appears to be patent. This is potentially an artifactual finding due to flow artifact of unopacified blood although it is unusual to see this confined to one of the four pulmonary veins. There is no left atrial or left ventricular thrombus identified. The lungs demonstrate bibasilar mild atelectasis. There is no significant consolidation, mass, or suspicious nodule identified. The juvencio demonstrate mildly enlarged nodes up to 1.5 cm in the right hilum and 1 cm in the left hilum. There is also a 1.1 cm infracarinal lymph node. No other mediastinal lymphadenopathy is seen. The heart size is normal. No pericardial or pleural effusion. The axillae demonstrate no enlarged nodes. Sections of the upper abdomen demonstrate no definite abnormality. The osseous structures demonstrate mild degenerative changes. There is multilevel minimal anterior wedging of thoracic spine vertebra. This is perhaps congenital or related to compression fractures of indeterminate age, favored to be chronic. If the patient has a recent trauma or tenderness over the thoracic spine, then this could be evaluated with thoracic spine MRI. IMPRESSION: 1. Filling defects in the lower lobe segmental pulmonary veins, mostly within the posterior segment, with extension into the left inferior pulmonary vein junction with the left atrium, concerning pulmonary venous thrombosis. This is a very unusual finding; however, the other pulmonary veins are all well opacified and this is unlikely to be artifactual. 2. No PE or aortic dissection. 3. Mildly enlarged hilar and infracarinal lymph nodes. The findings in the left lower lobe pulmonary veins were discussed with [facility] neurologist Dr. Baer at 3:40 p.m., shortly after this exam was changed to complete status on PACS for radiologist reading. Dictated by: Dictated on workstation # [id number]
== END 2017-01-12 06:00 | disposition short-term general hospital (02) ==
LOC: EDUNIT# 01:17 → ER 01:19
DX: I63.9 Cerebral infarction, unspecified (principal); I25.10 Atherosclerotic heart disease of native coronary artery without angina pectoris; I10 Essential (primary) hypertension; N28.9 Disorder of kidney and ureter, unspecified; R29.716 NIHSS score 16; F15.90 Other stimulant use, unspecified, uncomplicated; F32.9 Major depressive disorder, single episode, unspecified; K21.9 Gastro-esophageal reflux disease without esophagitis; I25.2 Old myocardial infarction; E78.00 Pure hypercholesterolemia, unspecified; F17.210 Nicotine dependence, cigarettes, uncomplicated; Z95.5 Presence of coronary angioplasty implant and graft; Z98.890 Other specified postprocedural states; Z79.82 Long term (current) use of aspirin
CPT/HCPCS: 36415; 70450; 70470; 70491; 71010; 71275; 80053; 80306; 80320; 81000; 82962; 83735; 83874; 84484; 85025; 85379; 85610; 85730; 92977; 93005; 93041; 96365; 96366; 96367; 96375

== ENCOUNTER 2017-01-20 17:06 | Observation (INO) | payer OTHER ==
[~2017-01-20] VITALS: Ht 175.3 cm; Wt 75.3 kg
[2017-01-20] MEDS ORDERED: FAMOTIDINE 20MG/2ML IV (PEPCID) IV STA (17:17)
[2017-01-20 17:24] LABS: BASOPHILS % (AUTO) 0 % (0-10); EOSINOPHILS # (AUTO) 0.5 10^3/uL (0.0-0.3); EOSINOPHILS % (AUTO) 5 % (0-10); LYMPHOCYTES # (AUTO) 1.4 X 10^3 (1.0-4.0); LYMPHOCYTES % (AUTO) 13 % (12-44); MEAN CORPUSCULAR HEMOGLOBIN 31 PG (25-34); MEAN CORPUSCULAR HGB CONC 33 G/DL (32-36); MEAN CORPUSCULAR VOLUME 93 FL (80-99); MEAN PLATELET VOLUME 10.1 FL (7.4-10.4); MONOCYTES # (AUTO) 1.2 X 10^3 (0.0-1.0); MONOCYTES % (AUTO) 11 % (0-12); NEUTROPHILS # (AUTO) 7.6 X 10^3 (1.8-7.8); NEUTROPHILS % (AUTO) 71 % (42-75); PLATELET COUNT 334 10^3/uL (130-400); RED BLOOD COUNT 4.42 10^6/uL (4.35-5.85); RED CELL DISTRIBUTION WIDTH 12.7 % (10.0-14.5); WHITE BLOOD COUNT 10.8 10^3/uL (4.3-11.0)
[2017-01-20] MEDS ORDERED: RX-NITROGLYCERIN 0.4 MG TAB BTL 25'S SL PRN (17:30)
[2017-01-20] MEDS ORDERED: LIDOCAINE 2% VISCOUS 15 ML UDC PO ONE (17:30)
[2017-01-20] MEDS ORDERED: ANTACID SUSP 30 ML UDC (MYLANTA) PO ONE (17:30)
[2017-01-20] MEDS ORDERED: ASPIRIN 81 MG CHEW (CHILDREN'S ASA) PO ONE (17:30)
[2017-01-20 17:33] LABS: INR 0.8 (0.8-1.4); PROTHROMBIN TIME PATIENT 11.2 SEC (12.2-14.7)
[2017-01-20 17:42] LABS: ALANINE AMINOTRANSFERASE 80 U/L (0-55); ALBUMIN 3.9 GM/DL (3.2-4.5); ANION GAP 10 MMOL/L (5-14); ASPARTATE AMINO TRANSFERASE 44 U/L (5-34); BILIRUBIN,TOTAL 0.2 MG/DL (0.1-1.0); BLOOD UREA NITROGEN 15 MG/DL (7-18); BUN/CREATININE RATIO 14; CALCIUM 9.7 MG/DL (8.5-10.1); CARBON DIOXIDE 25 MMOL/L (21-32); CHLORIDE 102 MMOL/L (98-107); CREATININE SERUM 1.11 MG/DL (0.60-1.30); GFR ESTIMATED > 60; GLUCOSE 116 MG/DL (70-105); MAGNESIUM 1.9 MG/DL (1.8-2.4); POTASSIUM 4.8 MMOL/L (3.6-5.0); SODIUM 137 MMOL/L (135-145); TOTAL PROTEIN 7.7 GM/DL (6.4-8.2)
[2017-01-20 17:48] LABS: MYOGLOBIN SERUM 28.5 NG/ML (10.0-92.0)
--- NOTE | 2017-01-20 17:59 | Diagnostic Imaging Report ---
INDICATION: Chest pain and shortness of breath. EXAMINATION: Frontal chest was obtained at 549 hours p.m. September 24 07/12/16 FINDINGS: Heart and mediastinal silhouette are normal in appearance. Lungs appear clear. Mild bilateral hilar prominence is stable compared to the prior study. There is no pneumothorax or pleural fluid. IMPRESSION: No acute process in the chest. Stable bilateral hilar prominence compared to the prior study. Dictated by: Dictated on workstation # [id number]
--- NOTE | 2017-01-20 18:05 | ED Chest Pain ---
General Chief Complaint: Chest Pain Stated Complaint: CHEST PAIN,SOB Nursing Triage Note: CHEST PAIN STARTING TUESDAY THAT HAS INCRESED IN PAIN ALONG WITH SOA. STATES HE TOOK X NITRO AND X1 BABY ASA TODAY. JUST RELEASED ON TUESDAY FOR A STROKE IN . Nursing Sepsis Screen: No Definite Risk Source: patient Exam Limitations: no limitations History of Present Illness Time seen by provider: 17:09 Initial Comments This 56-year-old man presents to emergency room with chest pain. He reports pain has been intermittent ever since he returned home from [facility] last Tuesday where he was evaluated for chest pain and stroke like symptoms. He has a history of coronary artery disease and had a cardiac catheterization at this facility in July. He was transferred for further evaluation at [facility] because of the complicated nature of his case. Stents were placed at that time. He presented to the emergency room at this facility January 12 where a chest pain workup was in progress when he developed acute stroke like symptoms. He had right-sided weakness, altered mental status, and dysphasia/dysarthria. TPA was administered and he was transferred by helicopter. Patient states that further workup did not reveal stroke or any notable cardiac disease. He reports his head and chest were each scanned 4 times with a combination of CT scan and MRI. It was noted after transfer that the CT angiogram performed at [facility] showed a left pulmonary venous thrombus, which is a very unusual finding. Patient states no anticoagulation was prescribed after dismissal from [facility], but he did receive TPA at [facility] prior to transfer. Patient additionally reports that he has had persistent headaches since leaving . He took Plavix last night and 81 mg of aspirin today. He additionally took 2 nitroglycerin at home which minimally improved his pain. He also has had a history of positive methamphetamine screens. He denies any methamphetamine use since January 07. He was also incidentally noted that he has chronic elevation in transaminases. He has not been screened for hepatitis. Allergies and Home Medications Allergies Coded Allergies: penicillin G (Verified Allergy, Severe, SWELLING, 12/23/11) Home Medications Amlodipine Besylate 10 Mg Tablet, 10 MG PO DAILY, (Reported) Apixaban 5 Mg Tablet, 5 MG PO BID, #60 Ref 1 Prescribed by: ELZA MONET on 01/21/17 1417 Aspirin 81 Mg Tablet.dr, 81 MG PO HS, (Reported) Bupropion HCl 150 Mg Tablet.er, 150 MG PO BID, (Reported) Clopidogrel Bisulfate 75 Mg Tablet, 75 MG PO HS, (Reported) Isosorbide Mononitrate 60 Mg Tab, 60 MG PO DAILY, (Reported) Losartan Potassium 50 Mg Tablet, 50 MG PO DAILY, (Reported) Nitroglycerin 0.4 Mg Tab.subl, 0.4 MG SL UD PRN for CHEST PAIN, (Reported) PLACE 1 TAB UNDER TONGUE NEEDED FOR CHEST PAIN; IF PAIN REMAINS AFTER 5 MINUTES, CALL 911 [place]-3 Fatty Acids/Fish Oil 1 Each Capsule, 1,000 MG PO BID, (Reported) Review of Systems Constitutional: no symptoms reported EENTM: No Symptoms Reported Respiratory: No Symptoms Reported Cardiovascular: See HPI Gastrointestinal: No Symptoms Reported Genitourinary: No Symptoms Reported Musculoskeletal: no symptoms reported Skin: no symptoms reported Psychiatric/Neurological: See HPI Endocrine: No Symptoms Reported Hematologic/Lymphatic: No Symptoms Reported Past Yimwcfk-Caihku-Pdyxcp Hx Patient Social History Alcohol Use: Denies Use Recreational Drug Use: Yes (methamphetamine use as recently as January 07, 2017) Smoking Status: Current Everyday Smoker Type Used: Cigarettes 2nd Hand Smoke Exposure: Yes Recent Foreign Travel: No Contact w/Someone Who Travel: No Recent Infectious Disease Expo: No Recent Hopitalizations: No Immunizations Up To Date Tetanus Booster (TDap): Less than 5yrs PED Vaccines UTD: No Date of Influenza Vaccine: Dec 28, 2014 Seasonal Allergies Seasonal Allergies: No Surgeries HX Surgeries: Yes (hernia) Surgeries: Abdominal, Coronary Stent, Orthopedic Respiratory Hx Respiratory Disorders: No Cardiovascular Hx Cardiac Disorders: Yes (CARDIAC STENTS) Cardiac Disorders: Coronary Artery Disease, Deep Vein Thrombosis (pulmonary venous thrombus), Heart Attack, High Cholesterol, Hypertension Neurological Hx Neurological Disorders: Yes (MINI STROKES-SEVERAL) Neurological Disorders: Stroke, TIA Reproductive System Hx Reproductive Disorders: No Sexually Transmitted Disease: No Genitourinary Hx Genitourinary Disorders: No Gastrointestinal Hx Gastrointestinal Disorders: Yes Gastrointestinal Disorders: Gastroesophageal Reflux, Hiatal Hernia, Ulcer Musculoskeletal Hx Musculoskeletal Disorders: No Endocrine Hx Endocrine Disorders: No HEENT HX ENT Disorders: No Loss of Vision: Denies Cancer Hx Cancer: No Psychosocial Hx Psychiatric Problems: No Behavioral Health Disorders: Depression Integumentary HX Skin/Integumentary Disorder: No Blood Transfusions Hx Blood Disorders: No Family Medical History Significant Family History: Heart Disease, Hypertension Family Medial History: Arthritis 19 MOTHER SORTER PRICER G8 SISTER FH: COPD (chronic obstructive pulmonary disease) Hypercholesterolemia 19 MOTHER Hypertension 19 MOTHER Physical Exam Vital Signs Vital Sign - Last 12Hours 01/20/17 17:06 Temp 98.0 Pulse 91 Resp 16 B/P (MAP) 158/102 Pulse Ox 95 Capillary Refill : Less Than 3 Seconds General Appearance: No Apparent Distress, Mild Distress HEENT: PERRL/EOMI, Normal ENT Inspection Neck: Normal Inspection Respiratory: Lungs Clear, Normal Breath Sounds, No Accessory Muscle Use, No Respiratory Distress Cardiovascular: Regular Rate, Rhythm, No Edema, Normal Peripheral Pulses Gastrointestinal: Non Tender, Soft Extremity: Normal Inspection, Non Tender, No Pedal Edema Neurologic/Psychiatric: Alert, Oriented x3, No Motor/Sensory Deficits, Normal Mood/Affect, salary and wage administrator II-XII Norm as Tested Skin: Normal Color, Warm/Dry Progress/Results/Core Measures Results/Orders Lab Results Laboratory Tests Test 01/20/17 17:15 01/20/17 19:07 01/20/17 19:32 Range/Units White Blood Count 10.8 4.3-11.0 10^3/uL Red Blood Count 4.42 4.35-5.85 10^6/uL Hemoglobin 13.5 13.3-17.7 G/DL Hematocrit 41 40-54 % Mean Corpuscular Volume 93 80-99 FL Mean Corpuscular Hemoglobin 31 25-34 PG Mean Corpuscular Hemoglobin Concent 33 32-36 G/DL Red Cell Distribution Width 12.7 10.0-14.5 % Platelet Count 334 130-400 10^3/uL Mean Platelet Volume 10.1 7.4-10.4 FL Neutrophils (%) (Auto) 71 42-75 % Lymphocytes (%) (Auto) 13 12-44 % Monocytes (%) (Auto) 11 0-12 % Eosinophils (%) (Auto) 5 0-10 % Basophils (%) (Auto) 0 0-10 % Neutrophils # (Auto) 7.6 1.8-7.8 X 10^3 Lymphocytes # (Auto) 1.4 1.0-4.0 X 10^3 Monocytes # (Auto) 1.2 H 0.0-1.0 X 10^3 Eosinophils # (Auto) 0.5 H 0.0-0.3 10^3/uL Basophils # (Auto) 0.0 0.0-0.1 10^3/uL Prothrombin Time 11.2 L 12.2-14.7 SEC INR Comment 0.8 0.8-1.4 Activated Partial Thromboplast Time 29 24-35 SEC Sodium Level 137 135-145 MMOL/L Potassium Level 4.8 3.6-5.0 MMOL/L Chloride Level 102 98-107 MMOL/L Carbon Dioxide Level 25 21-32 MMOL/L Anion Gap 10 5-14 MMOL/L Blood Urea Nitrogen 15 7-18 MG/DL Creatinine 1.11 0.60-1.30 MG/DL Estimat Glomerular Filtration Rate > 60 BUN/Creatinine Ratio 14 Glucose Level 116 H 70-105 MG/DL Calcium Level 9.7 8.5-10.1 MG/DL Magnesium Level 1.9 1.8-2.4 MG/DL Total Bilirubin 0.2 0.1-1.0 MG/DL Aspartate Amino Transf (AST/SGOT) 44 H 5-34 U/L Alanine Aminotransferase (ALT/SGPT) 80 H 0-55 U/L Alkaline Phosphatase 230 H 40-136 U/L Myoglobin 28.5 10.0-92.0 NG/ML Troponin I < 0.30 <0.30 NG/ML Total Protein 7.7 6.4-8.2 GM/DL Albumin 3.9 3.2-4.5 GM/DL Lipase 52 8-78 U/L Urine Color YELLOW Urine Clarity CLEAR Urine pH 6 5-9 Urine Specific [place] 1.010 L 1.016-1.022 Urine Protein 1+ H NEGATIVE Urine Glucose (UA) NEGATIVE NEGATIVE Urine Ketones NEGATIVE NEGATIVE Urine Nitrite NEGATIVE NEGATIVE Urine Bilirubin NEGATIVE NEGATIVE Urine Urobilinogen NORMAL NORMAL MG/DL Urine Leukocyte Esterase 2+ H NEGATIVE Urine RBC (Auto) NEGATIVE NEGATIVE Urine RBC NONE /HPF Urine WBC 10-25 H /HPF Urine Crystals NONE /LPF Urine Bacteria TRACE /HPF Urine Casts NONE /LPF Urine Mucus NEGATIVE /LPF Urine Culture Indicated YES Urine Opiates Screen NEGATIVE NEGATIVE Urine Oxycodone Screen NEGATIVE NEGATIVE Urine Methadone Screen NEGATIVE NEGATIVE Urine Propoxyphene Screen NEGATIVE NEGATIVE Urine Barbiturates Screen NEGATIVE NEGATIVE Ur Tricyclic Antidepressants Screen NEGATIVE NEGATIVE Urine Phencyclidine Screen NEGATIVE NEGATIVE Urine Amphetamines Screen NEGATIVE NEGATIVE Urine Methamphetamines Screen NEGATIVE NEGATIVE Urine Benzodiazepines Screen NEGATIVE NEGATIVE Urine Cocaine Screen NEGATIVE NEGATIVE Urine Cannabinoids Screen NEGATIVE NEGATIVE Micro Results Microbiology 01/20/17 Urine Culture - Preliminary, Resulted Probable Enterococcus Species My Orders Orders - BILL APONTE MD Cbc With Automated Diff (01/20/17 17:09) Magnesium (01/20/17 17:) Chest 1 View, Ap/Pa Only (01/20/17 17:09) Ekg Tracing (01/20/17 17:09) Cardiac Profile 1 (01/20/17 17:09) Comprehensive Metabolic Panel (01/20/17 17:09) Myoglobin Serum (01/20/17 17:09) Protime With Inr (01/20/17 17:09) Partial Thromboplastin Time (01/20/17 17:09) O2 (01/20/17 17:09) Monitor-Rhythm Ecg Trace Only (01/20/17 17:09) Lipid Panel (01/21/17 06:00) Saline Lock/Iv-Start (01/20/17 17:09) Aspirin Chewable Tablet (Baby Aspirin Ch (01/20/17 17:30) Rx-Nitroglycerin Sl Tabs (Rx-Nitrostat S (01/20/17 17:30) Lipase (01/20/17 17:17) Lidocaine 2% Viscous 15 Ml (Xylocaine Vi (01/20/17 17:30) Antacid Suspension (Mylanta Suspension (01/20/17 17:30) Famotidine Injection (Pepcid Injection) (01/20/17 17:17) Ct Head Wo (01/20/17 18:06) Ua Culture If Indicated (01/20/17 19:00) Enoxaparin Injection (Lovenox Injection) (01/20/17 19:00) Fentanyl Injection (Sublimaze Injection (01/20/17 19:15) Hepatitis Panel Acute (01/20/17 19:06) Factor Ii [id number] Mutation (01/20/17 19:14) Factor 5 Leiden (01/20/17 19:14) Urine Culture (01/20/17 19:07) Medications Given in ED Vital Signs/I&O Vital Sign - Last 12Hours 01/20/17 17:06 Temp 98.0 Pulse 91 Resp 16 B/P (MAP) 158/102 Pulse Ox 95 Blood Pressure Mean: 120 Progress Note #1: Time: 18:03 Progress Note GI cocktail and Pepcid improved his epigastric pain and tenderness on reexamination but not his chest pain. He received his third nitroglycerin here which minimally improved his pain. CT of the head will be ordered as patient complains of persistent headaches since returning from [facility]. Progress Note #2: Progress Note Workup in the emergency room was unremarkable. Chest pain did not improve with GI cocktail, Pepcid, and a third dose of nitroglycerin. Fentanyl was eventually administered. Case was reviewed with Dr. Zimmerman. Plan is to administer Lovenox until a thorough review of records from [facility] can be performed. Records request was faxed to [facility]. Case was also reviewed with Dr. Rabago. He suggested obtaining another urine drug screen. Patient complies. At the recommendation of these physicians, Dr. Guillen was consulted regarding possible coagulopathy. He requested checking factor II and factor V mutations. This was ordered. He also suggested continuing oral anticoagulation after discharge until follow-up in the cancer center in 6 weeks. Hepatitis screening was also ordered prior to admission. ECG Initial ECG Impression Date: Jan 20, 2017 Initial ECG Impression Time: 17:12 Initial ECG Rate: 90 Initial ECG Rhythm: Normal Sinus Initial ECG Impression: Normal Comment Normal sinus rhythm with no ST elevation or depression. No abnormal intervals or axis deviation. Diagnostic Imaging Diagonstic Imaging: CT Plain Films/CT/US/NM/MRI: head Comments CT head viewed by me and report reviewed. See report below: NAME: [facility] REC#: [id number] PT STATUS: REG ER : 1960 PHYSICIAN: BILL APONTE MD ADMIT DATE: 01/20/17/ER Draft Date of Exam:01/20/17 CT HEAD WO INDICATION: History of stroke. Now with posterior head pain and eye pain. EXAMINATION: Noncontrast brain CT was performed. COMPARISON: 01/12/17. FINDINGS: There are no extra-axial fluid collections. No intracranial hemorrhage. No intracranial mass or mass effect. No midline shift. The ventricles are normal in size and position. There are no focal parenchymal abnormalities in the brain. Calvarial windows are unremarkable. There is no intraorbital lesion. IMPRESSION: Negative noncontrast brain CT. Dictated on workstation # [id number] Dict: 01/20/17 1826 Trans: 01/20/17 1832 [facility] [id number] Interpreted by: YOAN GARCIA MD Diagonstic Imaging: Xray Plain Films/CT/US/NM/MRI: chest Comments Chest x-ray viewed by me and report reviewed. See report below: NAME: EZEQUIEL [facility] REC#: [id number] PT STATUS: REG ER : 1960 PHYSICIAN: BILL APONTE MD ADMIT DATE: 01/20/17/ER Draft Date of Exam:01/20/17 CHEST 1 VIEW, AP/PA ONLY INDICATION: Chest pain and shortness of breath. EXAMINATION: Frontal chest was obtained at 549 hours p.m. September 24 07/12/16 FINDINGS: Heart and mediastinal silhouette are normal in appearance. Lungs appear clear. Mild bilateral hilar prominence is stable compared to the prior study. There is no pneumothorax or pleural fluid. IMPRESSION: No acute process in the chest. Stable bilateral hilar prominence compared to the prior study. Dictated on workstation # [id number] Dict: 01/20/17 1754 Trans: 01/20/17 1758 [facility] [id number] Interpreted by: YOAN GARCIA MD Departure Impression Impression: Primary Impression: Chest pain Qualified Codes: R07.9 - Chest pain, unspecified Additional Impressions: History of coronary artery disease Headache Qualified Codes: R51 - Headache History of methamphetamine abuse Elevated transaminase level Disposition: ADMITTED INPATIENT Condition: Improved Decision to Admit Reason: Admit from ER (General) Decision to Admit/Date: Jan 20, 2017 Time/Decision to Admit Time: 17:15 Departure-Patient Inst. Referrals: ANDRES RABAGO DO (PCP/Family) Primary Care Physician Scripts Apixaban (Eliquis) 5 Mg Tablet 5 MG PO BID, #60 TAB 1 Refill Prov: ELZA MONET 01/21/17 BILL APONTE MD Jan 20, 2017 18:05
--- NOTE | 2017-01-20 18:32 | Diagnostic Imaging Report ---
INDICATION: History of stroke. Now with posterior head pain and eye pain. EXAMINATION: Noncontrast brain CT was performed. COMPARISON: 01/12/17. FINDINGS: There are no extra-axial fluid collections. No intracranial hemorrhage. No intracranial mass or mass effect. No midline shift. The ventricles are normal in size and position. There are no focal parenchymal abnormalities in the brain. Calvarial windows are unremarkable. There is no intraorbital lesion. IMPRESSION: Negative noncontrast brain CT. Dictated by: Dictated on workstation # [id number]
[2017-01-20] MEDS ORDERED: ENOXAPARIN 80 MG/0.8 ML (LOVENOX) SYR SC ONE (19:00)
[2017-01-20] MEDS ORDERED: fentaNYL INJECTION 100 MCG/2 ML AMP IVP ONE (19:15)
[2017-01-20 19:16] LABS: BILIRUBIN,URINE NEGATIVE (NEGATIVE); KETONES,URINE NEGATIVE (NEGATIVE); LEUKOCYTE ESTERASE ,URINE 2+ (NEGATIVE); NITRITE,URINE NEGATIVE (NEGATIVE); PH,URINE 6 (5-9); PROTEIN,URINE 1+ (NEGATIVE); UROBILINOGEN,URINE NORMAL (NORMAL)
[2017-01-20 20:26] VITALS: BP 140/92
[2017-01-20] MEDS ORDERED: CATHETER FLUSH 10 ML SYR IV PRN (20:45)
[2017-01-20] MEDS: fentaNYL INJECTION 100 MCG/2 ML AMP IV PRN ×2 (20:46→22:59)
[2017-01-20] MEDS ORDERED: CLOPIDOGREL 75 MG (PLAVIX) TABLET PO SCH (21:00)
[2017-01-20] MEDS: CATHETER FLUSH 10 ML SYR IV SCH (22:59)
[2017-01-21] VITALS: BP 113/60
[2017-01-21] MEDS: fentaNYL INJECTION 100 MCG/2 ML AMP IV PRN (03:07)
[2017-01-21 05:16] LABS: BASOPHILS % (AUTO) 0 % (0-10); EOSINOPHILS # (AUTO) 0.4 10^3/uL (0.0-0.3); EOSINOPHILS % (AUTO) 4 % (0-10); LYMPHOCYTES # (AUTO) 1.3 X 10^3 (1.0-4.0); LYMPHOCYTES % (AUTO) 12 % (12-44); MEAN CORPUSCULAR HEMOGLOBIN 30 PG (25-34); MEAN CORPUSCULAR HGB CONC 32 G/DL (32-36); MEAN CORPUSCULAR VOLUME 94 FL (80-99); MEAN PLATELET VOLUME 10.1 FL (7.4-10.4); MONOCYTES % (AUTO) 10 % (0-12); NEUTROPHILS # (AUTO) 7.3 X 10^3 (1.8-7.8); NEUTROPHILS % (AUTO) 73 % (42-75); PLATELET COUNT 303 10^3/uL (130-400); RED BLOOD COUNT 4.14 10^6/uL (4.35-5.85); RED CELL DISTRIBUTION WIDTH 12.7 % (10.0-14.5); WHITE BLOOD COUNT 10.1 10^3/uL (4.3-11.0)
[2017-01-21 05:47] LABS: CHOLESTEROL 216 MG/DL (< 200); DIRECT LDL 117 MG/DL (1-129); TRIGLYCERIDES 477 MG/DL (<150); VLDL CHOLESTEROL 95 MG/DL (5-40)
[2017-01-21 05:49] LABS: ALANINE AMINOTRANSFERASE 70 U/L (0-55); ALBUMIN 3.7 GM/DL (3.2-4.5); ANION GAP 15 MMOL/L (5-14); ASPARTATE AMINO TRANSFERASE 43 U/L (5-34); BILIRUBIN,TOTAL 0.2 MG/DL (0.1-1.0); BLOOD UREA NITROGEN 17 MG/DL (7-18); BUN/CREATININE RATIO 13; CALCIUM 9.4 MG/DL (8.5-10.1); CARBON DIOXIDE 22 MMOL/L (21-32); CHLORIDE 100 MMOL/L (98-107); CREATININE SERUM 1.34 MG/DL (0.60-1.30); GFR ESTIMATED 55; GLUCOSE 112 MG/DL (70-105); POTASSIUM 4.5 MMOL/L (3.6-5.0); SODIUM 137 MMOL/L (135-145); TOTAL PROTEIN 7.2 GM/DL (6.4-8.2)
[2017-01-21] MEDS: CATHETER FLUSH 10 ML SYR IV SCH ×2 (06:51→14:00)
[2017-01-21] MEDS ORDERED: ENOXAPARIN 80 MG/0.8 ML (LOVENOX) SYR SC SCH (07:00)
--- NOTE | 2017-01-21 07:53 | History & Physicial ---
History of Present Illness History of Present Illness Reason for visit/HPI chest pain and short of the air. Chest released from last Tuesday for possible stroke. Patient received TPA at that time in life flighted from [place] to [facility]. At had for CAT scans and 1 MRI and did not see a stroke. CAT scan at this hospital showed blood clots in lungs added losartan 50 mg and amlodipine 10 mg. Patient still smokes area Patient states he quit drugs methamphetamine 2 weeks ago. . Patient denies alcohol. Family history father asthma and congestive heart failure, mother congestive heart failure and COPD Date of Admission Jan 20, 2017 at 20:05 Time Seen by Provider: 07:30 I consulted on this patient on 01/21/17 07:48 Attending Physician Silver Rabago DO Admitting Physician Silver Rabago DO Consult Allergies and Home Medications Allergies Coded Allergies: penicillin G (Verified Allergy, Severe, SWELLING, 12/23/11) Home Medications Amlodipine Besylate 10 Mg Tablet, 10 MG PO DAILY, (Reported) Aspirin 81 Mg Tablet.dr, 81 MG PO HS, (Reported) Atorvastatin Calcium 10 Mg Tablet, 10 MG PO HS, (Reported) Bupropion HCl 150 Mg Tablet.er, 150 MG PO BID, (Reported) Carvedilol 12.5 Mg Tablet, 6.25 MG PO BID, (Reported) TAKES 1/2 OF A (12.5 MG) TABLET Cephalexin 500 Mg Tablet, 500 MG PO BID, #14 Ref 0 Prescribed by: BRITNEY CEE on 10/08/16 1708 Clopidogrel Bisulfate 75 Mg Tablet, 75 MG PO HS, (Reported) Cyclobenzaprine HCl 10 Mg Tablet, 10 MG PO Q8H PRN for SPASMS, #15 Ref 0 Prescribed by: BRITNEY CEE on 10/26/16 1419 Doxycycline Hyclate 100 Mg Tablet, 100 MG PO BID, #20 Ref 0 Prescribed by: BRITNEY CEE on 10/26/16 1419 Hydrocodone/Acetaminophen 1 Each Tablet, 1 EACH PO Q6H PRN for PAIN, #12 Ref 0 Prescribed by: BRITNEY CEE on 10/26/16 1419 Isosorbide Mononitrate 60 Mg Tab, 60 MG PO DAILY, (Reported) Lisinopril 20 Mg Tablet, 20 MG PO DAILY, (Reported) Nitroglycerin 0.4 Mg Tab.subl, 0.4 MG SL UD PRN for CHEST PAIN, (Reported) PLACE 1 TAB UNDER TONGUE NEEDED FOR CHEST PAIN; IF PAIN REMAINS AFTER 5 MINUTES, CALL 911 [place]-3 Fatty Acids/Fish Oil 1 Each Capsule, 1,000 MG PO BID, (Reported) Pantoprazole Sodium 40 Mg Tablet.dr, 40 MG PO DAILY, (Reported) Promethazine HCl 25 Mg Tablet, 25 MG PO TID PRN for NAUSEA/VOMITING, (Reported) Ranolazine 500 Mg Tab.er.12h, 1,000 MG PO BID, #60 Ref 2 Prescribed by: ANDREA ELIAS on 09/01/16 0813 Trazodone HCl 50 Mg Tablet, 50 MG PO HS PRN for SLEEP, (Reported) Ubidecarenone 200 Mg Capsule, 200 MG PO HS, (Reported) Zolpidem Tartrate 10 Mg Tablet, 10 MG PO HS PRN for SLEEP, (Reported) Past Mbcbqlp-Xnifrm-Uihfsp Hx Patient Social History Employed/Student: unemployed Alcohol Use: Denies Use Recreational Drug Use: Yes (methamphetamine use as recently as January 07, 2017) Smoking Status: Current Everyday Smoker Type Used: Cigarettes 2nd Hand Smoke Exposure: Yes Physical Abuse Screen: No Sexual Abuse: No Recent Foreign Travel: No Contact w/other who traveled: No Recent Hopitalizations: No Recent Infectious Disease Expo: No Immunizations Up To Date Tetanus Booster (TDap): Less than 5yrs Date of Influenza Vaccine: Dec 28, 2014 Seasonal Allergies Seasonal Allergies: No Surgeries HX Surgeries: Yes (hernia) Surgeries: Abdominal, Coronary Stent, Orthopedic Respiratory Hx Respiratory Disorders: No Cardiovascular Hx Cardiovascular Disorders: Yes (CARDIAC STENTS) Cardiac Disorders: Coronary Artery Disease, Deep Vein Thrombosis (pulmonary venous thrombus), Heart Attack, High Cholesterol, Hypertension Neurological Hx Neurological Disorders: Yes (MINI STROKES-SEVERAL) Neurological Disorders: Stroke, TIA Reproductive System Hx Reproductive Disorders: No Sexually Transmitted Disease: No Genitourinary Hx Genitourinary Disorders: No Gastrointestinal Hx Gastrointestinal Disorders: Yes Gastrointestinal Disorders: Gastroesophageal Reflux, Hiatal Hernia, Ulcer Musculoskeletal Hx Musculoskeletal Disorders: No Endocrine Hx Endocrine Disorders: No HEENT HX ENT Disorders: No Loss of Vision: Denies Cancer Hx Cancer: No Psychosocial Hx Psychiatric Problems: No Behavioral Health Disorders: Depression Integumentary HX Skin/Integumentary Disorder: No Blood Transfusions Hx Blood Disorders: No Adverse Reaction to a Blood Tr: No Family Medical History Significant Family History: Heart Disease, Hypertension Family Hx: Arthritis 19 MOTHER [employer] JUDGE G8 SISTER FH: COPD (chronic obstructive pulmonary disease) Hypercholesterolemia 19 MOTHER Hypertension 19 MOTHER Constitutional: weakness, other (weakness on right side of body has improved) EENTM: no symptoms reported Respiratory: short of breath Cardiovascular: chest pain, other (no radiation or diaphoresis) Gastrointestinal: no symptoms reported Genitourinary: no symptoms reported Physical Exam Vital Signs Vital Sign - Last 12Hours 01/20/17 01/20/17 17:06 20:20 Temp 98.0 Pulse 91 Resp 16 B/P (MAP) 158/102 Pulse Ox 95 O2 Delivery Room Air Capillary Refill : Less Than 3 Seconds General Appearance: No Apparent Distress, Thin Eyes: Bilateral Eye Normal Inspection HEENT: Normal ENT Inspection Neck: Full Range of Motion, Normal Inspection Respiratory: Chest Non Tender, No Accessory Muscle Use, No Respiratory Distress Cardiovascular: Regular Rate, Rhythm, No Murmur Gastrointestinal: Non Tender, Soft Assessment/Plan Assessment and Plan chest pain. Headache. Short of breath. Recent CVA. Coronary artery disease. Hyperlipidemia. History of meth abuse Problems: Clinical Quality Measures AMI/AHF: ASA po Prior to arrival: Yes (81MG) DVT/VTE Risk/Contraindication: Risk Factor Score Per Nursin RFS Level Per Nursing on Admit: 1=Low/No VTE PPX SILVER RABAGO DO Jan 21, 2017 07:53
[2017-01-21 08:00] VITALS: BP 151/82
[2017-01-21] MEDS ORDERED: ACETAMINOPHEN 325 MG TABLET/CAPLET (TYLENOL) PO PRN (08:45)
[2017-01-21] MEDS ORDERED: LOSARTAN 50 MG (COZAAR) TAB PO SCH (09:00)
[2017-01-21] MEDS ORDERED: ASPIRIN E.C. 325 MG (ECOTRIN) TABLET PO SCH (09:00)
[2017-01-21] MEDS ORDERED: amLODIPine 10 MG (NORVASC) TAB PO SCH (09:00)
[2017-01-21 09:42] LABS: BILIRUBIN,URINE NEGATIVE (NEGATIVE); KETONES,URINE NEGATIVE (NEGATIVE); LEUKOCYTE ESTERASE ,URINE 1+ (NEGATIVE); NITRITE,URINE NEGATIVE (NEGATIVE); PH,URINE 6 (5-9); PROTEIN,URINE 2+ (NEGATIVE); UROBILINOGEN,URINE NORMAL (NORMAL)
[2017-01-21] MEDS ORDERED: LOSA50TA36 PO (09:58)
[2017-01-21 12:00] VITALS: BP 136/84
--- NOTE | 2017-01-21 13:28 | Consultation-Cardiology ---
HPI-Cardiology Cardiology Consultation: Date of Consultation 01/21/17 Time Seen by Provider: 13:10 Date of Admission 01-20-17 Attending Physician Silver Hernandes DO Admitting Physician Silver Hernandes DO Consulting Physician Eric Zimmerman MD HPI: Chief Complaint: Chest pain Mr. Restrepo is a 56 year old male admitted to ICU 5 from the ED with c/o sharp, constant, mid-sternal chest pain which radiates up his chest. This is a relatively chronic pain for which he has undergone multiple evaluations with his director of transportation, Dr Lao. The discomfort was worse yesterday while he was lying in bed and has been constant, albeit better today. He does not report any alleviating factors or exacerbating factors. He does not report any dyspnea , palpitations, LE edema, syncope or near syncope. Family x 2 at the bedside. He reports continued chest pain at this time. He was recently transferred from [facility] to [facility] and treated for CVA at which time he was having right sided weakness. This has resolved. Review of Systems-Cardiology Review of Systems Constitutional: As described under HPI Eyes: No As described under HPI, No no symptoms reported, No blindness, No blurred vision, No contact lenses, No drainage, No decreased acuity, No foreign body sensation, No pain, No vision change Ears/Nose/Throat: No As described under HPI, No no symptoms reported, No chronic hearing loss, No ear discharge, No ear pain, No nasal drainage, No ulcerations Respiratory: As described under HPI Cardiovascular: As described under HPI Gastrointestinal: No no symptoms reported, No As described under HPI, No abdomen distended, No abdominal pain, No blood streaked bowels, No constipation , No diarrhea, No nausea, No vomiting, No stool coloration changes Genitourinary: No As described under HPI, No burning, No dysuria, No discharge , No frequency, No flank pain, No hematuria, No urgency Skin: No rash, No skin related problems, No ulcerations Psychiatric/Neurological: No anxiety, No depression, No focal weakness, No seizure, No syncope Hematologic: No bleeding abnormalities CKM-[id number]-Mdetfk Hx Patient Social History Employed/Student: unemployed Alcohol Use: Denies Use Recreational Drug Use: Yes (methamphetamine use as recently as January 07, 2017) Smoking Status: Current Everyday Smoker Type Used: Cigarettes 2nd Hand Smoke Exposure: Yes Recent Foreign Travel: No Recent Infectious Disease Expo: No Physical Abuse Screen: No Sexual Abuse: No Immunizations Up To Date Tetanus Booster (TDap): Less than 5yrs Date of Influenza Vaccine: Dec 28, 2014 Past Medical History PMH As described under Assessment. Family Medical History Family Medical History: His mother has higg blood pressure. No reported h/o premature CAD. Family History: 19 MOTHER Arthritis Hypertension Hypercholesterolemia G8 SISTER HAND[employer] PART[employer] C[employer] Relation not specified for: FH: COPD (chronic obstructive pulmonary disease) Allergies and Home Medications Allergies Coded Allergies: penicillin G (Verified Allergy, Severe, SWELLING, 12/23/11) Home Medications Amlodipine Besylate 10 Mg Tablet, 10 MG PO DAILY, (Reported) Apixaban 5 Mg Tablet, 5 MG PO BID, #60 Ref 1 Prescribed by: ELZA ADAIR on 01/21/17 1417 Aspirin 81 Mg Tablet.dr, 81 MG PO HS, (Reported) Bupropion HCl 150 Mg Tablet.er, 150 MG PO BID, (Reported) Clopidogrel Bisulfate 75 Mg Tablet, 75 MG PO HS, (Reported) Isosorbide Mononitrate 60 Mg Tab, 60 MG PO DAILY, (Reported) Losartan Potassium 50 Mg Tablet, 50 MG PO DAILY, (Reported) Nitroglycerin 0.4 Mg Tab.subl, 0.4 MG SL UD PRN for CHEST PAIN, (Reported) PLACE 1 TAB UNDER TONGUE NEEDED FOR CHEST PAIN; IF PAIN REMAINS AFTER 5 MINUTES, CALL 911 Randall-3 Fatty Acids/Fish Oil 1 Each Capsule, 1,000 MG PO BID, (Reported) Physical Exam-Cardiology Physical Exam Vital Signs/I&O Vital Sign - Last 12Hours 01/21/17 01/21/17 01/21/17 01/21/17 07:00 08:00 12:00 13:00 Temp 98.0 Pulse 78 76 72 74 Resp 16 18 B/P (MAP) 151/82 136/84 Pulse Ox 98 100 O2 Delivery Room Air Room Air Intake and Output 01/21/17 00:00 Intake Total 250 ml Balance 250 ml Capillary Refill : Less Than 3 Seconds Constitutional: appears stated age, No apparent distress, well-developed, well- nourished HEENT: PERRL, No discharge, hearing is well preserved, oral hygience is good, No ulceration, No xanthelasmas are seen Neck: No carotid bruit, carotid pulses are 2 + bilaterally Respiratory: No accessory muscle use, No respiratory distress, chest expansion is symmetric, chest is bilaterally symmetric, lungs clear to auscultation, other (prolonged expiratory phase) Cardiovascular: regular rate-rhythm, No JVD, S1 and S2 Gastrointestinal: No tender, soft, round, audible bowel sounds, No spleenomegaly Rectal: deferred Extremities: No clubbing, No cyanosis, No significant edema Neurologic/Psychiatric: alert, oriented x 3, power is 5/5 both on sides Skin: No rash, No ulcerations Data Review Labs Laboratory Tests 01/20/17 17:15: White Blood Count 10.8, Red Blood Count 4.42, Hemoglobin 13.5, Hematocrit 41, Mean Corpuscular Volume 93, Mean Corpuscular Hemoglobin 31, Mean Corpuscular Hemoglobin Concent 33, Red Cell Distribution Width 12.7, Platelet Count 334, Mean Platelet Volume 10.1, Neutrophils (%) (Auto) 71, Lymphocytes (%) (Auto) 13 , Monocytes (%) (Auto) 11, Eosinophils (%) (Auto) 5, Basophils (%) (Auto) 0, Neutrophils # (Auto) 7.6, Lymphocytes # (Auto) 1.4, Monocytes # (Auto) 1.2H, Eosinophils # (Auto) 0.5H, Basophils # (Auto) 0.0, Prothrombin Time 11.2L, INR Comment 0.8, Activated Partial Thromboplast Time 29, Sodium Level 137, Potassium Level 4.8, Chloride Level 102, Carbon Dioxide Level 25, Anion Gap 10, Blood Urea Nitrogen 15, Creatinine 1.11, Estimat Glomerular Filtration Rate > 60 , BUN/Creatinine Ratio 14, Glucose Level 116H, Calcium Level 9.7, Magnesium Level 1.9, Total Bilirubin 0.2, Aspartate Amino Transf (AST/SGOT) 44H, Alanine Aminotransferase (ALT/SGPT) 80H, Alkaline Phosphatase 230H, Myoglobin 28.5, Troponin I < 0.30, Total Protein 7.7, Albumin 3.9, Lipase 52 01/20/17 19:07: Urine Color YELLOW, Urine Clarity CLEAR, Urine pH 6, Urine Specific [place] 1.010L, Urine Protein 1+H, Urine Glucose (UA) NEGATIVE, Urine Ketones NEGATIVE, Urine Nitrite NEGATIVE, Urine Bilirubin NEGATIVE, Urine Urobilinogen NORMAL, Urine Leukocyte Esterase 2+H, Urine RBC (Auto) NEGATIVE, Urine RBC NONE, Urine WBC 10-25H, Urine Crystals NONE, Urine Bacteria TRACE, Urine Casts NONE, Urine Mucus NEGATIVE, Urine Culture Indicated YES, Urine Opiates Screen NEGATIVE, Urine Oxycodone Screen NEGATIVE, Urine Methadone Screen NEGATIVE, Urine Propoxyphene Screen NEGATIVE, Urine Barbiturates Screen NEGATIVE, Ur Tricyclic Antidepressants Screen NEGATIVE, Urine Phencyclidine Screen NEGATIVE, Urine Amphetamines Screen NEGATIVE, Urine Methamphetamines Screen NEGATIVE, Urine Benzodiazepines Screen NEGATIVE, Urine Cocaine Screen NEGATIVE, Urine Cannabinoids Screen NEGATIVE 01/20/17 19:32: 01/20/17 22:57: Troponin I < 0.30 01/21/17 04:52: White Blood Count 10.1, Red Blood Count 4.14L, Hemoglobin 12.5L, Hematocrit 39L , Mean Corpuscular Volume 94, Mean Corpuscular Hemoglobin 30, Mean Corpuscular Hemoglobin Concent 32, Red Cell Distribution Width 12.7, Platelet Count 303, Mean Platelet Volume 10.1, Neutrophils (%) (Auto) 73, Lymphocytes (%) (Auto) 12 , Monocytes (%) (Auto) 10, Eosinophils (%) (Auto) 4, Basophils (%) (Auto) 0, Neutrophils # (Auto) 7.3, Lymphocytes # (Auto) 1.3, Monocytes # (Auto) 1.0, Eosinophils # (Auto) 0.4H, Basophils # (Auto) 0.0, Sodium Level 137, Potassium Level 4.5, Chloride Level 100, Carbon Dioxide Level 22, Anion Gap 15H, Blood Urea Nitrogen 17, Creatinine 1.34H, Estimat Glomerular Filtration Rate 55, BUN/ Creatinine Ratio 13, Glucose Level 112H, Calcium Level 9.4, Total Bilirubin 0.2 , Aspartate Amino Transf (AST/SGOT) 43H, Alanine Aminotransferase (ALT/SGPT) 70H , Alkaline Phosphatase 244H, Troponin I < 0.30, Total Protein 7.2, Albumin 3.7, Triglycerides Level 477H, Cholesterol Level 216H, LDL Cholesterol Direct 117, VLDL Cholesterol 95H, HDL Cholesterol 33L 01/21/17 08:45: Urine Color YELLOW, Urine Clarity CLEAR, Urine pH 6, Urine Specific [place] 1.015L, Urine Protein 2+H, Urine Glucose (UA) NEGATIVE, Urine Ketones NEGATIVE, Urine Nitrite NEGATIVE, Urine Bilirubin NEGATIVE, Urine Urobilinogen NORMAL, Urine Leukocyte Esterase 1+H, Urine RBC (Auto) 2+H, Urine RBC 2-5H, Urine WBC 10 -25H, Urine Squamous Epithelial Cells NONE, Urine Crystals NONE, Urine Bacteria MODERATEH, Urine Casts NONE, Urine Mucus NEGATIVE, Urine Culture Indicated YES Microbiology 01/20/17 Urine Culture - Preliminary, Resulted Probable Enterococcus Species Radiology NAME: EZEQUIEL RESTREPO [facility] REC#: [id number] PT STATUS: REG ER : 1960 PHYSICIAN: BILL SUN MD ADMIT DATE: 01/20/17/ER Signed Date of Exam: 01/20/17 CHEST 1 VIEW, AP/PA ONLY INDICATION: Chest pain and shortness of breath. EXAMINATION: Frontal chest was obtained at 549 hours p.m. September 24 07/12/16 FINDINGS: Heart and mediastinal silhouette are normal in appearance. Lungs appear clear. Mild bilateral hilar prominence is stable compared to the prior study. There is no pneumothorax or pleural fluid. IMPRESSION: No acute process in the chest. Stable bilateral hilar prominence compared to the prior study. Dictated by: Dictated on workstation # [id number] Dict: 01/20/171753 Trans: 01/20/171933 Interpreted by: YOAN GARCIA MD Electronically signed by: YOAN GARCIA MD 01/20/171933 NAME: EZEQUIEL RESTREPO [facility] REC#: [id number] PT STATUS: REG ER : 1960 PHYSICIAN: BILL SUN MD ADMIT DATE: 01/20/17/ER Signed Date of Exam: 01/20/17 CT HEAD WO INDICATION: History of stroke. Now with posterior head pain and eye pain. EXAMINATION: Noncontrast brain CT was performed. COMPARISON: 01/12/17. FINDINGS: There are no extra-axial fluid collections. No intracranial hemorrhage. No intracranial mass or mass effect. No midline shift. The ventricles are normal in size and position. There are no focal parenchymal abnormalities in the brain. Calvarial windows are unremarkable. There is no intraorbital lesion. IMPRESSION: Negative noncontrast brain CT. Dictated by: Dictated on workstation # [id number] Dict: 01/20/17 1826 Trans: 01/20/171933 Interpreted by: YOAN GARCIA MD Electronically signed by: YOAN GARCIA MD 01/20/171933 ECG Impression ECG Initial ECG Rhythm: Normal Sinus A/P-Cardiology Assessment/Admission Diagnosis Chest pain, relatively chronic with intermittent exacerbations. 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 IVUS showed 60 percent stenosis, underwent stenting to the right coronary artery with excellent results. Patient underwent multiple cardiac catheterizations in the month of July due to his ongoing chest pain. Most recent cardiac catheterization carried out by Dr. Ortiz on August 14, 2016 ( at [facility]) revealed widely patent stented portion of the RCA which was completely occluded before. 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 Apparently treated conservatively (details of last cath not available to us) this is being followed by Dr. Lao. Distal circumflex artery with 90 percent stenosis, small vessel supplying very small amount of myocardium. He has undergone a more recent cardiac cath at [facility] by Dr. Simms in October 2016 (exact details of cardiac cath are not available to us) Echocardiogram of Jul [address] Lao: Moderate left ventricular hypertrophy with normal systolic function. Estimated ejection fraction 60%. Left atrium is in the upper normal limit in size. Echogenic density was noted on the aortic cusp. It could be representing a healed vegetation. There is no aortic valve stenosis, moderate aortic regurgitation. Mild mitral and tricuspid regurgitation. Pulmonary hypertension with estimated pulmonary artery pressure of 40 mmHg. Hypertension Hyperlipidemia - reports intolerance to Lipitor d/t muscle aches CKD I-II H/O Headache-complains of intermittent headache over the past several months - PCP History of elevated LFTs - medical services GERD with history of gastritis, continue to monitor. Tobaccoism - cessation advised History of methamphetamine use (reports last use was January 07, 2017) History of hiatal hernia Depression Reports intolerance to Ranexa d/t generalized body discomfort Discussion and Recomendations Complex management issue d/t several comorbidities as listed above. Chest pain with no evidence of ACS. We have reviewed the records we have available to us. D/t report of left atrium/pulmonic vein clot and possible recent CVA we rec OAC with Eliquis for stroke prophylaxis. We will continue Plavix d/t recent stenting. WE will stop ASA to reduce his risk of bleeding. We advise continuation of all other medications. Advise f/u with Dr. Lao next week. OK to discharge home from cardiac stand point. We would like to thank the medical services for this consult. This consult is being scribed by Lazaro Adair APRN on behalf of Dr. Zimmerman after discussion regarding plan of care. Clinical Quality Measures AMI/AHF: ASA po Prior to arrival: Yes (81MG) DVT/VTE Risk/Contraindication: Risk Factor Score Per Nursin RFS Level Per Nursing on Admit: 1=Low/No VTE PPX Physician Assessment Physician Assessment Reports that chest discomfort is currently at its usual baseline Lungs: good bilat air entry Cor: reg Ext: no c/c/e A&R * As documented in our note above that I updated (italics) and as noted below * This a complex management issue, given multiple symptoms and multiple comorbidities that are outlined in our note above * I reviewed his records (as many as are available to us). I discussed his case in detail with Dr Sun who took care of him when he had come to the ER with a probable stroke and found to have a probable pulm vein/L cardiac thrombus * We feel that given above history of intracardiac thrombus and probable ac CVA , a w/u for atrial fibrillation should be undertaken. He states he will pursue this with Dr Lao, his director of transportation * We also recommend a w/u for clotting disorders. This is to be organized and overseen by Dr Hernandes, his pcp * Meanwhile, we have initiated Eliquis * We are continuing Plavix, but we are stopping aspirin to reduce risk of bleeding (after adding Plavix) ELZA ADAIR DATA ANALYST [employer] DEVELOPER Jan 21, 2017 13:28 ERIC ZIMMERMAN MD FACP [facility] Jan 21, 2017 15:48
[2017-01-21] MEDS ORDERED: APIXABAN 5 MG (ELIQUIS) TABLET PO NR (14:15)
[2017-01-21] MEDS ORDERED: APIX5TAB PO (14:17)
[2017-01-21 16:00] VITALS: BP 159/84
[2017-01-21] MEDS ORDERED: APIXABAN 5 MG (ELIQUIS) TABLET PO SCH (21:00)
--- NOTE | 2017-01-24 07:26 | Clinic Account Progress/Dx ---
Clinic Account Progress/Dx DIAGNOSIS: Time Seen by Provider: 07:25 Diagnosis chest pain. History of CAD. Headache. Hyperlipidemia. Elevated liver enzymes. Urine Enterococcus faecalis organism. infection. History of methamphetamine abuse. Tobacco usage. Hypertension. Hyperlipidemia. GERD history ANDRES RABAGO DO Jan 24, 2017 07:26
[2017-01-25 12:25] LABS: FACTOR 5 (LEIDEN) MUTATION Negative (Negative)
[2017-01-25 13:58] LABS: FACTOR 5 LEIDEN INTERP See Footnote
== END 2017-01-21 15:50 | disposition home or self-care (01) ==
LOC: EDUNIT# 17:06 → ER 17:08 → ICU 20:05 → UNDOADMOB 20:05 → ICU 20:20 → UNDODISOB 01-21 15:50
PROVIDERS: ADMIT Family Medicine; ATTEND Family Medicine
DX: R07.9 Chest pain, unspecified (principal); R51 Headache; E78.5 Hyperlipidemia, unspecified; R74.8 Abnormal levels of other serum enzymes; I25.10 Atherosclerotic heart disease of native coronary artery without angina pectoris; I12.9 Hypertensive chronic kidney disease with stage 1 through stage 4 chronic kidney disease, or unspecified chronic kidney disease; N18.2 Chronic kidney disease, stage 2 (mild); F15.10 Other stimulant abuse, uncomplicated; K21.9 Gastro-esophageal reflux disease without esophagitis; K44.9 Diaphragmatic hernia without obstruction or gangrene; F33.9 Major depressive disorder, recurrent, unspecified; F17.210 Nicotine dependence, cigarettes, uncomplicated; Z79.82 Long term (current) use of aspirin; Z79.01 Long term (current) use of anticoagulants; Z79.02 Long term (current) use of antithrombotics/antiplatelets; Z79.899 Other long term (current) drug therapy; Z95.5 Presence of coronary angioplasty implant and graft
CPT/HCPCS: 36415; 70450; 71010; 80053; 80061; 80074; 80306; 81000; 81240; 81241; 83690; 83735; 83874; 84484; 85025; 85610; 85730; 87077; 87088; 87186; 93005; 93041; 96372; 96374; 96375

== ENCOUNTER 2017-01-28 19:08 | Inpatient (IN) | payer OTHER ==
[~2017-01-28] VITALS: Ht 175.3 cm; Wt 74.9 kg
[~2017-01-28 19:08] MED LIST changes: +APIX5TAB PO; +LOSA50TA36 PO
--- OUTSIDE RECORDS SUMMARY | 2017-01-28 19:14 | XMS REPORT | Clinical Summary ---
Author Author [facility] Organization [facility] Address Unknown Phone Unavailable Care Team Providers Care Pediatric Physical Therapy Assistant Name Role Phone PCP Unavailable Source Comments Some departments are not documenting in the electronic medical record. If you do not see the information that you expected, contact Release of Information in the Health Information Management department at [phone] for further assistance in locating additional records.[facility] Allergies Active Allergy Reactions Severity Noted Date Comments Penicillins EDEMA High 08/04/2016 Current Medications Prescription Sig. Disp. Refills Start End Date Status Date aspirin EC 81 mg tablet Take 81 mg by mouth at Active bedtime daily. Take with food. nitroglycerin (NITROSTAT) Place 1 Tab under tongue 25 Tab 3 08/10/19 Active 0.4 mg tabletIndications: every 5 minutes as needed 17 Coronary artery disease for Chest Pain. Max of 3 of lovelock artery of tablets, call 911. 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 17 clopiDOGrel (PLAVIX) 75 Take 75 mg by mouth at Active mg tablet bedtime daily. fish oil- omega 3-DHA/EPA Take 1 Cap by mouth twice Active 300/1,000 mg capsule daily. BUPROPION HCL (WELLBUTRIN Take 150 mg by mouth Active SR PO) twice daily. cyclobenzaprine Take 10 mg by mouth three Active (FLEXERIL) 10 mg tablet times daily as needed for Muscle Cramps. omeprazole DR(+) Take 20 mg by mouth Active (PRILOSEC) 20 mg capsule daily. atorvastatin (LIPITOR) 40 Take 1 Tab by mouth 90 Tab 3 01/15/20 Active mg tablet daily. 17 losartan (COZAAR) 50 mg Take 1 Tab by mouth 90 Tab 3 01/15/20 Active tablet daily. 17 amLODIPine (NORVASC) 10 Take 1 Tab by mouth 90 Tab 3 01/15/20 Active mg tablet daily. 17 carvedilol (COREG) 12.5 Take 6.25 mg by mouth 01/15/20 Discontin mg tablet twice daily with meals. 17 ued Take with food. pantoprazole DR Take 40 mg by mouth 01/13/20 Discontin (PROTONIX) 40 mg tablet daily. 17 ued rosuvastatin (CRESTOR) 10 Take 1 Tab by mouth 90 Tab 3 11/09/19 Discontin mg tablet daily. 17 17 ued losartan (COZAAR) 50 mg Take 1 Tab by mouth 90 Tab 3 11/09/19 Discontin tablet daily. 17 17 ued HYDROcodone/acetaminophen Take 1-2 Tabs by mouth 01/15/20 Discontin (+) (NORCO) 10/325 mg every 6 hours as needed 17 ued tablet for Pain baclofen (LIORESAL) 10 mg Take 10 mg by mouth three 01/15/20 Discontin tablet times daily as needed. 17 ued amLODIPine (NORVASC) 10 Take 10 mg by mouth 01/15/20 Discontin mg tablet daily. 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 ([facility]) Overview: 07/29/16: heart cath ([place], [place]) - total occlusion of the right [...] abuse 08/09/2016 CAD (coronary artery disease) 08/09/2016 Resolved Problems Problem Noted Date Resolved Date TIA (transient ischemic attack) 01/12/2017 01/14/2017 Encounters Date Type Specialty Care Team Description 01/12/2017 [facility] Neurosurgery Julianna Baer Weakness - Encounter 01/14/2017 Yair Pisano MD Wang, Yunxia, MD 01/12/2017 Hospital Radiology Encounter 01/12/2017 Hospital Radiology Encounter 01/12/2017 Hospital Radiology Encounter 01/12/2017 Procedure Pass Neurosurgery 01/12/2017 Hospital Radiology Encounter 01/12/2017 Procedure Pass Neurosurgery 01/12/2017 Procedure Pass Neurosurgery 01/12/2017 Procedure Pass Neurosurgery 01/12/2017 Procedure Pass Neurosurgery 11/17/2016 Telephone Cardiology Abigail Marie RN Patient Questions 11/16/2016 Telephone Cardiology Abigail Marie RN Dizziness 11/08/2016 Office Visit Cardiology Sarah Camara PA-C New To Provider (6 mos David Simms MD hosp f/u PCI was done in hosp. ) from Last 3 Months Family History Medical History Relation Name Comments Arthritis Mother Hyperlipidemia Mother Hypertension Mother COPD Sister Relation Name Status Comments Mother Sister Social History Tobacco Use Types Packs/Day Years Used Date Current Every Day Smoker Cigarettes Alcohol Use Drinks/Week oz/Week Comments Yes 0 Standard 0.0 drinks or equivalent Sex Assigned at Date Recorded Not on file Last Filed Vital Signs Vital Sign Reading Time Taken Blood Pressure 164/84 01/14/2017 12:01 PM CDT Pulse 70 01/14/2017 12:01 PM CDT Temperature 36.9 C (98.4 F) 01/14/2017 12:01 PM CDT Respiratory Rate - - Oxygen Saturation 95% 01/14/2017 5:00 AM CDT Inhaled Oxygen - - Concentration Weight 71.2 kg (157 lb) 01/12/2017 8:54 AM CDT Height 175.3 cm (5' 9") 01/12/2017 8:54 AM CDT Body Mass Index 23.18 01/12/2017 8:54 AM CDT Plan of Treatment Health Maintenance Due Date Last Done Comments HEPATITIS C SCREENING 1961 PHYSICAL (COMPREHENSIVE) 1968 EXAM PERTUSSIS VACCINE 1972 TETANUS VACCINE 1978 COLORECTAL CANCER 2011 SCREENING INFLUENZA VACCINE 02/18/2017 Procedures Procedure Name Priority Date/Time Associated Diagnosis Comments ECG UNCONFIRMED-SCAN 01/21/2017 Results for this 7:42 AM CDT procedure are in the results section. TELEMETRY STRIPS-SCAN 01/20/2017 Results for this 1:41 PM CDT procedure are in the results section. ECG-SCAN 01/16/2017 Results for this 11:23 AM CDT procedure are in the results section. from Last 3 Months Results * ECG UNCONFIRMED-SCAN (01/21/2017 7:42 AM) Narrative Ordered by an unspecified provider. * TELEMETRY STRIPS-SCAN (01/20/2017 1:41 PM) Narrative Ordered by an unspecified provider. * ECG-SCAN (01/16/2017 11:23 AM) Narrative Ordered by an unspecified provider. * CBC (01/14/2017 4:40 AM) Only the most recent of 2 results within the time period is included. Component Value Ref Range White Blood Cells 6.3 4.5 - 11.0 K/UL RBC 3.88 (L) 4.4 - 5.5 M/UL Hemoglobin 12.1 (L) 13.5 - 16.5 GM/DL Hematocrit 35.5 (L) 40 - 50 % MCV 91.5 80 - 100 FL MCH 31.1 26 - 34 PG MCHC 34.0 32.0 - 36.0 G/DL RDW 13.2 11 - 15 % Platelet Count 220 150 - 400 K/UL MPV 8.4 7 - 11 FL Specimen Performing Laboratory Blood MA[facility] [address] [place] [address] * BASIC METABOLIC PANEL (01/14/2017 4:40 AM) Only the most recent of 3 results within the time period is included. Component Value Ref Range Sodium 140 137 - 147 MMOL/L Potassium 4.3 3.5 - 5.1 MMOL/L Chloride 109 98 - 110 MMOL/L CO2 24 21 - 30 MMOL/L Anion Gap 7 3 - 12 Glucose 106 (H) 70 - 100 MG/DL Blood Urea Nitrogen 17 7 - 25 MG/DL Creatinine 1.24 0.4 - 1.24 MG/DL Calcium 9.0 8.5 - 10.6 MG/DL eGFR Non >60 >60 mL/min Comment: The eGFR is not validated for use in drug dosing adjustments. Continue to use estimated creatinine clearance per dosing reference text. Please contact the Clinical Pharmacist for questions. eGFR >60 >60 mL/min Comment: The eGFR is not validated for use in drug dosing adjustments. Continue to use estimated creatinine clearance per dosing reference text. Please contact the Clinical Pharmacist for questions. Specimen Performing Laboratory [facility] [address] [place] [address] * SWALLOW MOTION SERIES (01/13/2017 8:48 AM) Specimen Performing Laboratory [facility] RESULTS Impressions 1. Trace penetration with thin consistency barium. No aspiration was witnessed on this exam. 2. Please see separately dictated report from the Department of Speech Pathology for further description. Approved by Checo Celestin M.D. on 01/13/2017 11:54 AM By my electronic signature, I attest that I have personally reviewed the images for this examination and formulated the interpretations and opinions expressed in this report Finalized by Randall Pedersen M.D. on 01/13/2017 5:02 PM. Dictated by Checo Celestin M.D. on 01/13/2017 9:47 AM. Narrative SWALLOW MOTION SERIES CLINICAL HISTORY: Male, 56 years;dysphagia TECHNIQUE: The procedure was performed in conjunction with members of the department of speech pathology. Video fluoroscopy was performed during swallowing of various consistencies of barium. Due to technical factors the video swallow study was not saved and does not available for later review. The patient tolerated the procedure well and left the department in stable condition. TOTAL FLUOROSCOPY TIME: 54 seconds FINDINGS: On real-time reviewing there was trace penetration with thin consistency barium. No aspiration was witnessed during real-time viewing of this exam. Procedure Note Interface, Radiant Results - 01/13/2017 5:05 PM CDT SWALLOW MOTION SERIES CLINICAL HISTORY: Male, 56 years; dysphagia TECHNIQUE: The procedure was performed in conjunction with members of the department of speech pathology. Video fluoroscopy was performed during swallowing of various consistencies of barium. Due to technical factors the video swallow study was not saved and does not available for later review. The patient tolerated the procedure well and left the department in stable condition. TOTAL FLUOROSCOPY TIME: 54 seconds FINDINGS: On real-time reviewing there was trace penetration with thin consistency barium. No aspiration was witnessed during real-time viewing of this exam. IMPRESSION 1. Trace penetration with thin consistency barium. No aspiration was witnessed on this exam. 2. Please see separately dictated report from the Department of Speech Pathology for further description. Approved by Checo Celestin M.D. on 01/13/2017 11:54 AM By my electronic signature, I attest that I have personally reviewed the images for this examination and formulated the interpretations and opinions expressed in this report Finalized by Randall Pedersen M.D. on 01/13/2017 5:02 PM. Dictated by Checo Celestin M.D. on 01/13/2017 9:47 AM. * PHOSPHORUS (01/13/2017 3:50 AM) Only the most recent of 2 results within the time period is included. Component Value Ref Range Phosphorus 3.2 2.0 - 4.0 MG/DL Specimen Performing Laboratory [facility] [address] [place] [id number] * MAGNESIUM (01/13/2017 3:50 AM) Only the most recent of 2 results within the time period is included. Component Value Ref Range Magnesium 1.8 1.6 - 2.6 mg/dL Specimen Performing Laboratory [facility] [address] [place] [address] * IONIZED CALCIUM (01/13/2017 3:50 AM) Only the most recent of 2 results within the time period is included. Component Value Ref Range Ionized Calcium 1.09 1.0 - 1.3 MMOL/L Specimen Performing Laboratory [facility] [address] [place] [address] * CTA CHEST WO/W CONTRAST+POST IMPRESSION (01/12/2017 5:59 PM) Specimen Performing Laboratory [facility] RESULTS Addenda Addendum by Aleksey Britt MD on 01/27/2017 5:31 PM Finalized by Aleksey Britt M.D. on 01/12/2017 6:47 PM. Dictated by Mike Perez M.D. on 01/12/2017 6:26 PM.Addendum: After review the images between Dr. Son and Dr. Baer, it is felt that the left inferior pulmonary vein filling defect, questioned on outside CT, is not present on the current CT and was likely from incomplete mixing of intravenous contrast. Approved by Zak Bartholomew M.D. on 01/13/2017 4:20 PM By my electronic signature, I attest that I have personally reviewed the images for this examination and formulated the interpretations and opinions expressed in this report Finalized by Aleksey Britt M.D. on 01/27/2017 5:28 PM. Dictated by Zka Bartholomew M.D. on 01/13/2017 4:18 PM. Impressions 1. Nondiagnostic for pulmonary venous embolus. No filling defect identified in the left atrium. Normal sized heart. 2. Mild dependent atelectasis in the bases greater on the left with no pleural effusion. 3. Calcified multivessel coronary artery atherosclerotic disease. 4. Minimal retained secretions in the proximal left mainstem bronchus. By my electronic signature, I attest that I have personally reviewed the images for this examination and formulated the interpretations and opinions expressed in this report Narrative CTA CHEST Clinical Indication:Male, 56 years old. Shortness of breath.L MCA stroke. Pulmonary venous thrombosis Technique: Multiple contiguous axial CT images were obtained through the chest following the administration of IV contrast. Post processing coronal and sagittal reconstruction images were made from the axial images.Image post- processing was obtained. IV contrast: Isovue-370 Comparison: CTA chest August 14, 2016 at 2325 hours FINDINGS: Evaluation is nondiagnostic for pulmonary venous thrombosis. No filling defect in the left atrium. The aorta is normal in caliber. The heart size is normal. Thyroid is unremarkable. There are occasional normal bilateral axillary and mediastinal lymph nodes. Partially calcified granulomas are noted in the hilar regions precarinal mediastinum. Scattered coronary artery atherosclerotic disease is present. Upper abdomen is unremarkable. Small duodenal diverticulum is present. There is mild dependent atelectatic density in the bases, greater on the left. There is no pleural pericardial effusion. Minimal retained secretions are noted proximal left mainstem bronchus. Procedure Note Interface, Radiant Results - 01/27/2017 5:31 PM CDT CTA CHEST Clinical Indication: Male, 56 years old. Shortness of breath. L MCA stroke. Pulmonary venous thrombosis Technique: Multiple contiguous axial CT images were obtained through the chest following the administration of IV contrast. Post processing coronal and sagittal reconstruction images were made from the axial images. Image post- processing was obtained. IV contrast: Isovue-370 Comparison: CTA chest August 14, 2016 at 2325 hours FINDINGS: Evaluation is nondiagnostic for pulmonary venous thrombosis. No filling defect in the left atrium. The aorta is normal in caliber. The heart size is normal. Thyroid is unremarkable. There are occasional normal bilateral axillary and mediastinal lymph nodes. Partially calcified granulomas are noted in the hilar regions precarinal mediastinum. Scattered coronary artery atherosclerotic disease is present. Upper abdomen is unremarkable. Small duodenal diverticulum is present. There is mild dependent atelectatic density in the bases, greater on the left. There is no pleural pericardial effusion. Minimal retained secretions are noted proximal left mainstem bronchus. IMPRESSION 1. Nondiagnostic for pulmonary venous embolus. No filling defect identified in the left atrium. Normal sized heart. 2. Mild dependent atelectasis in the bases greater on the left with no pleural effusion. 3. Calcified multivessel coronary artery atherosclerotic disease. 4. Minimal retained secretions in the proximal left mainstem bronchus. By my electronic signature, I attest that I have personally reviewed the images for this examination and formulated the interpretations and opinions expressed in this report * PHENCYCLIDINES-URINE RANDOM (01/12/2017 2:17 PM) Component Value Ref Range Phencyclidine (PCP) NEG NEG-NEG Comment: RESULTS WERE OBTAINED BY IMMUNOASSAY AND ARE PRESUMPTIVE ONLY. POSITIVE INDICATES THE PRESENCE OF SUBSTANCE WITH CHARACTERISTICS SIMILAR TO DRUG-DRUG CLASS OR METABOLITE IN CONC. EQUAL TO OR EXCEEDING VALUES LISTED. PHENCYCLIDINE (PCP) 25 NG/ML Specimen Performing Laboratory Urine [facility] [address] [place] [id number] * OPIATES-URINE RANDOM (01/12/2017 2:17 PM) Component Value Ref Range Opiates-Urine NEG NEG-NEG Comment: RESULTS WERE OBTAINED BY IMMUNOASSAY AND ARE PRESUMPTIVE ONLY. POSITIVE INDICATES THE PRESENCE OF SUBSTANCE WITH CHARACTERISTICS SIMILAR TO DRUG-DRUG CLASS OR METABOLITE IN CONC. EQUAL TO OR EXCEEDING VALUES LISTED. OPIATES 200 0 NG/ML Specimen Performing Laboratory [facility] [address] [place] [address] * COCAINE-URINE RANDOM (01/12/2017 2:17 PM) Component Value Ref Range Cocaine-Urine NEG NEG-NEG Comment: RESULTS WERE OBTAINED BY IMMUNOASSAY AND ARE PRESUMPTIVE ONLY. POSITIVE INDICATES THE PRESENCE OF SUBSTANCE WITH CHARACTERISTICS SIMILAR TO DRUG-DRUG CLASS OR METABOLITE IN CONC. EQUAL TO OR EXCEEDING VALUES LISTED. COCAINE 300 NG/ML Specimen Performing Laboratory Urine [facility] [address] [place] [address] * CANNABINOIDS-URINE RANDOM (01/12/2017 2:17 PM) Component Value Ref Range THC NEG NEG-NEG Comment: RESULTS WERE OBTAINED BY IMMUNOASSAY AND ARE PRESUMPTIVE ONLY. POSITIVE INDICATES THE PRESENCE OF SUBSTANCE WITH CHARACTERISTICS SIMILAR TO DRUG-DRUG CLASS OR METABOLITE IN CONC. EQUAL TO OR EXCEEDING VALUES LISTED. CANNABINOIDS 50 NG/ML Specimen Performing Laboratory [facility] [address] [place] [address] * BENZODIAZEPINES-URINE RANDOM (01/12/2017 2:17 PM) Component Value Ref Range Benzodiazepines NEG NEG-NEG Comment: RESULTS WERE OBTAINED BY IMMUNOASSAY AND ARE PRESUMPTIVE ONLY. POSITIVE INDICATES THE PRESENCE OF SUBSTANCE WITH CHARACTERISTICS SIMILAR TO DRUG-DRUG CLASS OR METABOLITE IN CONC. EQUAL TO OR EXCEEDING VALUES LISTED. BENZODIAZEPINES 200 NG/ML Specimen Performing Laboratory U[facility] [address] [place] [address] * BARBITURATES-URINE RANDOM (01/12/2017 2:17 PM) Component Value Ref Range Barbiturates,Urine NEG NEG-NEG Comment: RESULTS WERE OBTAINED BY IMMUNOASSAY AND ARE PRESUMPTIVE ONLY. POSITIVE INDICATES THE PRESENCE OF SUBSTANCE WITH CHARACTERISTICS SIMILAR TO DRUG-DRUG CLASS OR METABOLITE IN CONC. EQUAL TO OR EXCEEDING VALUES LISTED. BARBITURATES 200 NG/ML Specimen Performing Laboratory [facility] [address] [place] [address] * AMPHETAMINES-URINE RANDOM (01/12/2017 2:17 PM) Component Value Ref Range Amphetamines NEG NEG-NEG Comment: RESULTS WERE OBTAINED BY IMMUNOASSAY AND ARE PRESUMPTIVE ONLY. POSITIVE INDICATES THE PRESENCE OF SUBSTANCE WITH CHARACTERISTICS SIMILAR TO DRUG-DRUG CLASS OR METABOLITE IN CONC. EQUAL TO OR EXCEEDING VALUES LISTED. AMPHETAMINES 1000 NG/ML Specimen Performing Laboratory [facility] [address] [place] [address] * MRI HEAD WO/W CONTRAST (01/12/2017 1:36 PM) Specimen Performing Laboratory [facility] RESULTS Impressions 1. No evidence for acute infarct. 2. Remote appearing infarct in the right basal ganglia. Finalized by Mc Kerr M.D. on 01/12/2017 2:12 PM. Dictated by Mc Kerr M.D. on 01/12/2017 2:10 PM. Narrative MRI brain CLINICAL HISTORY: Stroke COMPARISON STUDY: CTA January 12, 2017 TECHNIQUE: Multiplanar and multisequence imaging of the brain is obtained without and with IV contrast. FINDINGS: There is no restricted diffusion to suggest a recent infarct. No intracranial mass, mass effect, or midline shift is identified. The ventricles and extra-axial spaces are normal. Remote appearing infarct is noted in the right basal ganglia. No enhancing lesion is identified. The orbital contents are normal. Procedure Note Interface, Radiant Results - 01/12/2017 2:16 PM CDT MRI brain CLINICAL HISTORY: Stroke COMPARISON STUDY: CTA January 12, 2017 TECHNIQUE: Multiplanar and multisequence imaging of the brain is obtained without and with IV contrast. FINDINGS: There is no restricted diffusion to suggest a recent infarct. No intracranial mass, mass effect, or midline shift is identified. The ventricles and extra-axial spaces are normal. Remote appearing infarct is noted in the right basal ganglia. No enhancing lesion is identified. The orbital contents are normal. IMPRESSION 1. No evidence for acute infarct. 2. Remote appearing infarct in the right basal ganglia. Finalized by Mc Kerr M.D. on 01/12/2017 2:12 PM. Dictated by Mc Kerr M.D. on 01/12/2017 2:10 PM. * POC CREATININE, RAD (01/12/2017 1:31 PM) Component Value Ref Range Creatinine, POC 1.3 (H) 0.4 - 1.24 MG/DL Specimen Performing Laboratory [facility] [address] [place] [address] * TROPONIN-I (01/12/2017 11:48 AM) Only the most recent of 3 results within the time period is included. Component Value Ref Range Troponin-I 0.01 0.0 - 0.05 NG/ML Specimen Performing Laboratory [facility] [address] [place] [address] * LIPID PROFILE (01/12/2017 11:48 AM) Component Value Ref Range Cholesterol 231 (H) <200 MG/DL Triglycerides 216 (H) <150 MG/DL HDL 35 (L) >40 MG/DL LDL 152 (H) <100 MG/DL VLDL 43 MG/DL Non HDL Cholesterol 196 MG/DL Comment: Calculated non-HDL Cholesterol (non-HDL-C) indirectly measures LDL-C, Lp(a), IDL-C, and VLDL-C. It is a surrogate marker for Apoprotein B. Goal should be less than 130 mg/dL. Specimen Performing Laboratory [facility] [address] [place] [address] * 2-D + DOPPLER ECHOCARDIOGRAM (01/12/2017 8:54 AM) Component Value Ref Range BSA 1.86 m2 Referring Provider Dexter Hernandes CV ECHO PV [employer]ANCE AGENT Floor RN LVIDD 3.3 4.2 - 5.9 cm IVS 1.6 0.6 - 1.0 cm PW 1.2 0.6 - 1.0 cm Ao root annulus 2.2 1.4 - 2.6 cm LVIDS 2.1 cm LA volume 53.0 18 - 58 mL Sinus 3.7 2.1 - 3.5 cm STJ 3.2 1.7 - 3.4 cm Proximal aorta 3.5 2.1 - 3.4 cm LA size 3.5 3.0 - 4.0 cm AV peak velocity 1.4 m/s AV LVOT peak gradient 21 mmHg TDI e' 0.120 m/s TV rest pulmonary artery n/a mmHg pressure grad vals 40 mmHg Right Ventricular Basal 3.3 cm (2.4-4.2) Diameter Right Ventricular Mid 2.6 cm (2.0-3.5) Diameter Right Ventricular Long 7.8 cm (5.6-8.6) Diameter Right Atrial Area 12.2 cm2 (<=18) MV Peak E Cruz PW 0.600 m/s MV Peak A Cruz 0.600 m/s FS 36.36 28 - 44 % EF 61.81 % Left Atrium Index 28.49 10 - 32 E/A ratio 1.00 E/E' ratio 5.00 ECHO EF 65 % Specimen Performing Laboratory OTHER OUTSIDE LAB Narrative Left ventricular systolic function is within normal limits. LVEF 65% Mild concentric left ventricular hypertrophy. No evidence of intracardiac shunt. Aortic valve sclerosis without stenosis. No pericardial effusion. * PROTIME INR (PT) (01/12/2017 7:34 AM) Component Value Ref Range INR 0.9 0.8 - 1.2 Specimen Performing Laboratory [facility] [address] [place] [address] * CBC AND DIFF (01/12/2017 7:34 AM) Component Value Ref Range White Blood Cells 6.4 4.5 - 11.0 K/UL RBC 4.32 (L) 4.4 - 5.5 M/UL Hemoglobin 13.1 (L) 13.5 - 16.5 GM/DL Hematocrit 39.5 (L) 40 - 50 % MCV 91.4 80 - 100 FL MCH 30.3 26 - 34 PG MCHC 33.2 32.0 - 36.0 G/DL RDW 14.1 11 - 15 % Platelet Count 261 150 - 400 K/UL MPV 8.3 7 - 11 FL Neutrophils 62 41 - 77 % Lymphocytes 19 (L) 24 - 44 % Monocytes 12 4 - 12 % Eosinophils 7 (H) 0 - 5 % Basophils 0 0 - 2 % Absolute Neutrophil Count 4.00 1.8 - 7.0 K/UL Absolute Lymph Count 1.20 1.0 - 4.8 K/UL Absolute Monocyte Count 0.80 0 - 0.80 K/UL Absolute Eosinophil Count 0.40 0 - 0.45 K/UL Absolute Basophil Count 0.00 0 - 0.20 K/UL Specimen Performing Laboratory [facility] [address] [place] [address] * HEMOGLOBIN A1C (01/12/2017 7:34 AM) Component Value Ref Range Hemoglobin A1C 5.5 4.0 - 6.0 % Comment: The ADA recommends that most patients with type 1 and type 2 diabetes maintain an A1c level <7%. Specimen Performing Laboratory [facility] [address] [place] [address] * CT BRAIN PERF (01/12/2017 7:25 AM) Specimen Performing Laboratory [facility] RESULTS Impressions CTA head: 1. 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 2. Normal CTA of the head without intracranial arterial stenosis or occlusion. CTA neck: 1. Normal CTA of the neck. 2. 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 3. Secretions are noted within the distal trachea and right mainstem bronchus. CT perfusion: Normal CT perfusion. Discussed findings by phone with Dr. Barajas on the stroke team at 7:52 AM on 2016. Approved by Catrachito Hansen M.D. on 01/12/2017 7:59 AM By my electronic signature, I attest that I have personally reviewed the images for this examination and formulated the interpretations and opinions expressed in this report Finalized by Stuart Rogel M.D. on 01/12/2017 8:07 AM. Dictated by Catrachito Hansen M.D. on 01/12/2017 7:26 AM. Narrative EXAM: CTA HEAD AND NECK, CTA BRAIN PERFUSION HISTORY: 56-year-old male, aphasia and weakness TECHNIQUE: Multiple contiguous axial images were obtained of the brain and neck following the administration of Isovue-370IV contrast. CTA maximum density projection images were obtained of the brain and neck with image post processing.Perfusion imaging was also obtained with CBV, MTT, TTD, and CBF mapping. COMPARISON: CT head 07/29/2016 FINDINGS: CTA head: The ventricles and subarachnoid spaces are normal in size and configuration. The davis white matter interfaces are maintained apart from a small old lacunar infarct within the posterior right putamen. There is no midline shift or mass effect. There is no evidence of acute intracranial hemorrhage. The basal cisterns are patent. The calvarium is intact. The distal internal carotid, vertebral, and basilar arteries are patent without focal narrowing or occlusion. 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 There is origin of the right SOFT BOARDER. The anterior, middle, and posterior cerebral arteries are patent without focal narrowing. No aneurysm or arteriovenous malformation is identified. CTA neck: The aortic arch vessel origins are widely patent. The common carotid and cervical portions of the internal carotid and vertebral arteries are patent without focal narrowing according to NASCET criteria. No aneurysm, AVM, or dissection is identified. The cervical soft tissues are unremarkable. The paranasal sinus and mastoid air cells are clear. The lung apices are clear.There is degenerative disease of the cervical spine with multilevel neuroforaminal stenosis. Secretions are noted within the distal trachea and right mainstem bronchus. CT Perfusion: Blood flow, blood volume, and time-dependent maps are symmetric. No mismatch perfusion defect is identified. Procedure Note Interface, Radiant Results - 01/12/2017 8:10 AM CDT EXAM: CTA HEAD AND NECK, CTA BRAIN PERFUSION HISTORY: 56-year-old male, aphasia and weakness TECHNIQUE: Multiple contiguous axial images were obtained of the brain and neck following the administration of Isovue-370 IV contrast. CTA maximum density projection images were obtained of the brain and neck with image post processing. Perfusion imaging was also obtained with CBV, MTT, TTD, and CBF mapping. COMPARISON: CT head 07/29/2016 FINDINGS: CTA head: The ventricles and subarachnoid spaces are normal in size and configuration. The davis white matter interfaces are maintained apart from a small old lacunar infarct within the posterior right putamen. There is no midline shift or mass effect. There is no evidence of acute intracranial hemorrhage. The basal cisterns are patent. The calvarium is intact. The distal internal carotid, vertebral, and basilar arteries are patent without focal narrowing or occlusion. 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 There is origin of the right SOFT BOARDER. The anterior, middle, and posterior cerebral arteries are patent without focal narrowing. No aneurysm or arteriovenous malformation is identified. CTA neck: The aortic arch vessel origins are widely patent. The common carotid and cervical portions of the internal carotid and vertebral arteries are patent without focal narrowing according to NASCET criteria. No aneurysm, AVM, or dissection is identified. The cervical soft tissues are unremarkable. The paranasal sinus and mastoid air cells are clear. The lung apices are clear. There is degenerative disease of the cervical spine with multilevel neuroforaminal stenosis. Secretions are noted within the distal trachea and right mainstem bronchus. CT Perfusion: Blood flow, blood volume, and time-dependent maps are symmetric. No mismatch perfusion defect is identified. IMPRESSION CTA head: 1. 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 2. Normal CTA of the head without intracranial arterial stenosis or occlusion. CTA neck: 1. Normal CTA of the neck. 2. 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 3. Secretions are noted within the distal trachea and right mainstem bronchus. CT perfusion: Normal CT perfusion. Discussed findings by phone with Dr. Barajas on the stroke team at 7:52 AM on 2016. Approved by Catrachito Hansen M.D. on 01/12/2017 7:59 AM By my electronic signature, I attest that I have personally reviewed the images for this examination and formulated the interpretations and opinions expressed in this report Finalized by Stuart Rogel M.D. on 01/12/2017 8:07 AM. Dictated by Catrachito Hansen M.D. on 01/12/2017 7:26 AM. * CTA NECK WO/W CONTRAST+POST P (01/12/2017 7:25 AM) Specimen Performing Laboratory [facility] RESULTS Impressions CTA head: 1. 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 2. Normal CTA of the head without intracranial arterial stenosis or occlusion. CTA neck: 1. Normal CTA of the neck. 2. 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 3. Secretions are noted within the distal trachea and right mainstem bronchus. CT perfusion: Normal CT perfusion. Discussed findings by phone with Dr. Barajas on the stroke team at 7:52 AM on 2016. Approved by Catrachito Hansen M.D. on 01/12/2017 7:59 AM By my electronic signature, I attest that I have personally reviewed the images for this examination and formulated the interpretations and opinions expressed in this report Finalized by Stuart Rogel M.D. on 01/12/2017 8:07 AM. Dictated by Catrachito Hansen M.D. on 01/12/2017 7:26 AM. Narrative EXAM: CTA HEAD AND NECK, CTA BRAIN PERFUSION HISTORY: 56-year-old male, aphasia and weakness TECHNIQUE: Multiple contiguous axial images were obtained of the brain and neck following the administration of Isovue-370IV contrast. CTA maximum density projection images were obtained of the brain and neck with image post processing.Perfusion imaging was also obtained with CBV, MTT, TTD, and CBF mapping. COMPARISON: CT head 07/29/2016 FINDINGS: CTA head: The ventricles and subarachnoid spaces are normal in size and configuration. The davis white matter interfaces are maintained apart from a small old lacunar infarct within the posterior right putamen. There is no midline shift or mass effect. There is no evidence of acute intracranial hemorrhage. The basal cisterns are patent. The calvarium is intact. The distal internal carotid, vertebral, and basilar arteries are patent without focal narrowing or occlusion. 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 There is origin of the right SOFT BOARDER. The anterior, middle, and posterior cerebral arteries are patent without focal narrowing. No aneurysm or arteriovenous malformation is identified. CTA neck: The aortic arch vessel origins are widely patent. The common carotid and cervical portions of the internal carotid and vertebral arteries are patent without focal narrowing according to NASCET criteria. No aneurysm, AVM, or dissection is identified. The cervical soft tissues are unremarkable. The paranasal sinus and mastoid air cells are clear. The lung apices are clear.There is degenerative disease of the cervical spine with multilevel neuroforaminal stenosis. Secretions are noted within the distal trachea and right mainstem bronchus. CT Perfusion: Blood flow, blood volume, and time-dependent maps are symmetric. No mismatch perfusion defect is identified. Procedure Note Interface, Radiant Results - 01/12/2017 8:10 AM CDT EXAM: CTA HEAD AND NECK, CTA BRAIN PERFUSION HISTORY: 56-year-old male, aphasia and weakness TECHNIQUE: Multiple contiguous axial images were obtained of the brain and neck following the administration of Isovue-370 IV contrast. CTA maximum density projection images were obtained of the brain and neck with image post processing. Perfusion imaging was also obtained with CBV, MTT, TTD, and CBF mapping. COMPARISON: CT head 07/29/2016 FINDINGS: CTA head: The ventricles and subarachnoid spaces are normal in size and configuration. The davis white matter interfaces are maintained apart from a small old lacunar infarct within the posterior right putamen. There is no midline shift or mass effect. There is no evidence of acute intracranial hemorrhage. The basal cisterns are patent. The calvarium is intact. The distal internal carotid, vertebral, and basilar arteries are patent without focal narrowing or occlusion. 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 There is origin of the right SOFT BOARDER. The anterior, middle, and posterior cerebral arteries are patent without focal narrowing. No aneurysm or arteriovenous malformation is identified. CTA neck: The aortic arch vessel origins are widely patent. The common carotid and cervical portions of the internal carotid and vertebral arteries are patent without focal narrowing according to NASCET criteria. No aneurysm, AVM, or dissection is identified. The cervical soft tissues are unremarkable. The paranasal sinus and mastoid air cells are clear. The lung apices are clear. There is degenerative disease of the cervical spine with multilevel neuroforaminal stenosis. Secretions are noted within the distal trachea and right mainstem bronchus. CT Perfusion: Blood flow, blood volume, and time-dependent maps are symmetric. No mismatch perfusion defect is identified. IMPRESSION CTA head: 1. 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 2. Normal CTA of the head without intracranial arterial stenosis or occlusion. CTA neck: 1. Normal CTA of the neck. 2. 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 3. Secretions are noted within the distal trachea and right mainstem bronchus. CT perfusion: Normal CT perfusion. Discussed findings by phone with Dr. Barajas on the stroke team at 7:52 AM on 2016. Approved by Catrachito Hansen M.D. on 01/12/2017 7:59 AM By my electronic signature, I attest that I have personally reviewed the images for this examination and formulated the interpretations and opinions expressed in this report Finalized by Stuart Rogel M.D. on 01/12/2017 8:07 AM. Dictated by Catrachito Hansen M.D. on 01/12/2017 7:26 AM. * CTA HEAD WO/W CONTR+POST PRO (01/12/2017 7:25 AM) Specimen Performing Laboratory [facility] RESULTS Impressions CTA head: 1. 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 2. Normal CTA of the head without intracranial arterial stenosis or occlusion. CTA neck: 1. Normal CTA of the neck. 2. 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 3. Secretions are noted within the distal trachea and right mainstem bronchus. CT perfusion: Normal CT perfusion. Discussed findings by phone with Dr. Barajas on the stroke team at 7:52 AM on 2016. Approved by Catrachito Hansen M.D. on 01/12/2017 7:59 AM By my electronic signature, I attest that I have personally reviewed the images for this examination and formulated the interpretations and opinions expressed in this report Finalized by Stuart Rogel M.D. on 01/12/2017 8:07 AM. Dictated by Catrachito Hansen M.D. on 01/12/2017 7:26 AM. Narrative EXAM: CTA HEAD AND NECK, CTA BRAIN PERFUSION HISTORY: 56-year-old male, aphasia and weakness TECHNIQUE: Multiple contiguous axial images were obtained of the brain and neck following the administration of Isovue-370IV contrast. CTA maximum density projection images were obtained of the brain and neck with image post processing.Perfusion imaging was also obtained with CBV, MTT, TTD, and CBF mapping. COMPARISON: CT head 07/29/2016 FINDINGS: CTA head: The ventricles and subarachnoid spaces are normal in size and configuration. The davis white matter interfaces are maintained apart from a small old lacunar infarct within the posterior right putamen. There is no midline shift or mass effect. There is no evidence of acute intracranial hemorrhage. The basal cisterns are patent. The calvarium is intact. The distal internal carotid, vertebral, and basilar arteries are patent without focal narrowing or occlusion. 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 There is origin of the right SOFT BOARDER. The anterior, middle, and posterior cerebral arteries are patent without focal narrowing. No aneurysm or arteriovenous malformation is identified. CTA neck: The aortic arch vessel origins are widely patent. The common carotid and cervical portions of the internal carotid and vertebral arteries are patent without focal narrowing according to NASCET criteria. No aneurysm, AVM, or dissection is identified. The cervical soft tissues are unremarkable. The paranasal sinus and mastoid air cells are clear. The lung apices are clear.There is degenerative disease of the cervical spine with multilevel neuroforaminal stenosis. Secretions are noted within the distal trachea and right mainstem bronchus. CT Perfusion: Blood flow, blood volume, and time-dependent maps are symmetric. No mismatch perfusion defect is identified. Procedure Note Interface, Radiant Results - 01/12/2017 8:10 AM CDT EXAM: CTA HEAD AND NECK, CTA BRAIN PERFUSION HISTORY: 56-year-old male, aphasia and weakness TECHNIQUE: Multiple contiguous axial images were obtained of the brain and neck following the administration of Isovue-370 IV contrast. CTA maximum density projection images were obtained of the brain and neck with image post processing. Perfusion imaging was also obtained with CBV, MTT, TTD, and CBF mapping. COMPARISON: CT head 07/29/2016 FINDINGS: CTA head: The ventricles and subarachnoid spaces are normal in size and configuration. The davis white matter interfaces are maintained apart from a small old lacunar infarct within the posterior right putamen. There is no midline shift or mass effect. There is no evidence of acute intracranial hemorrhage. The basal cisterns are patent. The calvarium is intact. The distal internal carotid, vertebral, and basilar arteries are patent without focal narrowing or occlusion. 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 There is origin of the right SOFT BOARDER. The anterior, middle, and posterior cerebral arteries are patent without focal narrowing. No aneurysm or arteriovenous malformation is identified. CTA neck: The aortic arch vessel origins are widely patent. The common carotid and cervical portions of the internal carotid and vertebral arteries are patent without focal narrowing according to NASCET criteria. No aneurysm, AVM, or dissection is identified. The cervical soft tissues are unremarkable. The paranasal sinus and mastoid air cells are clear. The lung apices are clear. There is degenerative disease of the cervical spine with multilevel neuroforaminal stenosis. Secretions are noted within the distal trachea and right mainstem bronchus. CT Perfusion: Blood flow, blood volume, and time-dependent maps are symmetric. No mismatch perfusion defect is identified. IMPRESSION CTA head: 1. 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 2. Normal CTA of the head without intracranial arterial stenosis or occlusion. CTA neck: 1. Normal CTA of the neck. 2. 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 3. Secretions are noted within the distal trachea and right mainstem bronchus. CT perfusion: Normal CT perfusion. Discussed findings by phone with Dr. Barajas on the stroke team at 7:52 AM on 2016. Approved by Catrachito Hansen M.D. on 01/12/2017 7:59 AM By my electronic signature, I attest that I have personally reviewed the images for this examination and formulated the interpretations and opinions expressed in this report Finalized by Stuart Rogel M.D. on 01/12/2017 8:07 AM. Dictated by Catrachito Hansen M.D. on 01/12/2017 7:26 AM. * GENERAL RAD CHEST EXTERNAL IMAGING (01/12/2017 12:45 AM) Narrative This order has been auto finalized and does not contain a result. * CT HEAD EXTERNAL IMAGING (01/12/2017 12:30 AM) Only the most recent of 2 results within the time period is included. Narrative This order has been auto finalized and does not contain a result. * CT CHEST EXTERNAL IMAGING (01/12/2017 12:15 AM) Narrative This order has been auto finalized and does not contain a result. from Last 3 Months
--- OUTSIDE RECORDS SUMMARY | 2017-01-28 19:15 | XMS REPORT | Encounter Summary ---
Author Author [facility] Organization [facility] Address Unknown Phone Unavailable Care Team Providers Care Drugless Physician Name Role Phone PCP Unavailable Encounter Details Date Type Department Care Team Description 01/12/2017 Hospital [facility] Encounter Hospital Radiology [address] [place], [place] [id number] Social History Tobacco Use Types Packs/Day Years Used Date Current Every Day Smoker Cigarettes Alcohol Use Drinks/Week oz/Week Comments Yes 0 Standard 0.0 drinks or equivalent Sex Assigned at Date Recorded Not on file as of this encounter Functional Status Functional Status Response Date of Assessment Does the patient have a hearing impairment: No 01/12/2017 as of this encounter Medications at Time of Discharge Medication Sig. Disp. Refills Start Date End Date amLODIPine (NORVASC) 10 Take 1 Tab by mouth 90 Tab 3 01/14/2017 mg tablet daily. aspirin EC 81 mg tablet Take 81 mg by mouth at bedtime daily. Take with food. atorvastatin (LIPITOR) 40 Take 1 Tab by mouth 90 Tab 3 01/14/2017 mg tablet daily. clopiDOGrel (PLAVIX) 75 Take 75 mg by mouth at mg tablet bedtime daily. fish oil- omega 3-DHA/EPA Take 1 Cap by mouth twice 300/1,000 mg capsule daily. isosorbide mononitrate SR Take 1 Tab by mouth 90 Tab 3 08/16/2016 (IMDUR) 60 mg tablet daily. losartan (COZAAR) 50 mg Take 1 Tab by mouth 90 Tab 3 01/14/2017 tablet daily. nitroglycerin (NITROSTAT) Place 1 Tab under tongue 25 Tab 3 2016 0.4 mg tabletIndications: every 5 minutes as needed Coronary artery disease for Chest Pain. Max of 3 of [place] artery of tablets, call 911. [place] heart with stable angina pectoris (HCC), Essential hypertension, Mixed hyperlipidemia, Gastroesophageal reflux disease, esophagitis presence not specified, Ischemic chest pain (HCC), Tobacco abuse, History of noncompliance with medical treatment carvedilol (COREG) 12.5 Take 6.25 mg by mouth 01/14/2017 mg tablet twice daily with meals. Take with food. losartan (COZAAR) 50 mg Take 1 Tab by mouth 90 Tab 3 11/08/2016 tablet daily. as of this encounter Plan of Treatment Not on fileas of this encounter Visit Diagnoses Not on filein this encounter
--- OUTSIDE RECORDS SUMMARY | 2017-01-28 19:15 | XMS REPORT | Encounter Summary ---
Author Author [facility] Organization [facility] Address Unknown Phone Unavailable Care Team Providers Care Ship Steward Name Role Phone PCP Unavailable Encounter Details Date Type Department Care Team Description 01/12/2017 [facility] [address] [place] [address] Social History Tobacco Use Types Packs/Day Years Used Date Current Every Day Smoker Cigarettes Alcohol Use Drinks/Week oz/Week Comments Yes 0 Standard 0.0 drinks or equivalent Sex Assigned at Date Recorded Not on file as of this encounter Functional Status Functional Status Response Date of Assessment Does the patient have a hearing impairment: No 01/12/2017 as of this encounter Plan of Treatment Not on fileas of this encounter Visit Diagnoses Not on filein this encounter
--- OUTSIDE RECORDS SUMMARY | 2017-01-28 19:15 | XMS REPORT | Encounter Summary ---
Author Author [facility] Organization [facility] Address Unknown Phone Unavailable Care Team Providers Care Executive Coordinator Name Role Phone PCP Unavailable Encounter Details Date Type Department Care Team Description 01/12/2017 [facility] [address] [place] [address] Social History Tobacco Use Types [...]
--- OUTSIDE RECORDS SUMMARY | 2017-01-28 19:15 | XMS REPORT | Encounter Summary ---
Author Author [facility] Organization [facility] Address Unknown Phone Unavailable Care Team Providers Care Residential Framing Carpenter Name Role Phone PCP Unavailable Encounter Details Date Type Department Care Team Description 01/12/2017 [facility] [address] [facility] [place] [address] Social History Tobacco Use Types [...]
--- OUTSIDE RECORDS SUMMARY | 2017-01-28 19:15 | XMS REPORT | Encounter Summary ---
Author Author [facility] Organization [facility] Address Unknown Phone Unavailable Care Team Providers Care Driver Engineer Name Role Phone PCP Unavailable Encounter Details Date Type Department Care Team Description 01/12/2017 Hospital [facility] Encounter Hospital Radiology [address] [place], [place] [id number] Social History Tobacco Use Types Packs/Day Years [...] for Chest Pain. Max of 3 of [place] artery of tablets, call 911. viejas heart with stable angina pectoris (HCC), Essential [...]
--- OUTSIDE RECORDS SUMMARY | 2017-01-28 19:15 | XMS REPORT | Encounter Summary ---
Author Author [facility] Organization [facility] Address Unknown Phone Unavailable Care Team Providers Care Nicking Machine Operator Name Role Phone PCP Unavailable Encounter Details Date Type Department Care Team Description 01/12/2017 Hospital [facility] Encounter Hospital Radiology [address] [place], [place] [id number] Social History Tobacco Use Types Packs/Day Years [...] for Chest Pain. Max of 3 of [place] artery of tablets, call 911. [place] heart with stable angina pectoris (HCC), Essential [...]
--- OUTSIDE RECORDS SUMMARY | 2017-01-28 19:15 | XMS REPORT | Encounter Summary ---
Author Author [facility] Organization [facility] Address Unknown Phone Unavailable Care Team Providers Care Catering Coordinator Name Role Phone PCP Unavailable Encounter Details Date Type Department Care Team Description 01/12/2017 Hospital [facility] Encounter Hospital Radiology [address] [place], [place] [id number] Social History Tobacco Use Types Packs/Day Years [...] for Chest Pain. Max of 3 of [place] artery of tablets, call 911. [place] heart with stable angina pectoris (HCC), Essential [...]
--- OUTSIDE RECORDS SUMMARY | 2017-01-28 19:15 | XMS REPORT | Encounter Summary ---
Author Author [facility] Organization [facility] Address Unknown Phone Unavailable Care Team Providers Care Patrol Agent Name Role Phone PCP Unavailable Encounter Details Date Type Department Care Team Description 01/12/2017 [facility] Julianna Baer, [place] - Encounter [id number] 01/14/2017 [place] [address] [address] [phone] [address] [place] [address] [phone] Yair Painter MD [address] [place] [address] [phone] Girish Field MD [address] [place] [address] [phone] Social History Tobacco Use Types Packs/Day Years Used Date Current Every Day Smoker Cigarettes Alcohol Use Drinks/Week oz/Week Comments Yes 0 Standard 0.0 drinks or equivalent Sex Assigned at Date Recorded Not on file as of this encounter Last Filed Vital Signs Vital Sign Reading [...] Mass Index 23.18 01/12/2017 8:54 AM CDT in this encounter Functional Status Functional Status Response Date of Assessment Does the patient have a hearing impairment: No 01/12/2017 as of this encounter Discharge Summaries * Sen Monterroso DO - 01/14/2017 2:51 PM CDT Formatting of this note may be different from the original. 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 Normal abdominal aorta and renal arteries. Elevated liver function tests GERD (gastroesophageal reflux disease) 08/09/2016 History of methamphetamine abuse + UDS 09/2015 - pt denies drug use History of noncompliance with medical treatment 08/09/2016 Hyperlipidemia 08/09/2016 Hypertension 08/09/2016 Tobacco abuse 08/09/2016 Allergies: Pcn [penicillins] Admission Physical Exam notable for: RUE/RLE weakness and numbness. right facial droop and apahsia. Admission Lab/Radiology studies notable for: MRI 01/12 IMPRESSION 1. No evidence for acute infarct. 2. Remote appearing infarct in the right basal ganglia. CTA 01/12 IMPRESSION CTA head: 1. 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 2. Normal CTA of the head without intracranial arterial stenosis or occlusion. CTA neck: 1. Normal CTA of the neck. 2. 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 3. Secretions are noted within the distal trachea and right mainstem Bronchus. CT perfusion: Normal CT perfusion. ECHO 01/12: no thrombus UDS at OSH +meth LDL 152 Brief Hospital Course: The patient was admitted and the following issues were addressed during this hospitalization: (with pertinent details). Kaz Partida a 56 y.o.malewith h/o HTN, HLD, Substance abuse, tobacco use, CAD s/p stentspresented with right sided weakness, right facial droop and apahsia. He was initially presented to the [place], [place] ED with chest pain. He had a witnessed event of acute onset of right-sided leg greater than arm weakness, right facial droop, global aphasia. NIHSS was 16 at OSH. He was given tPA and sent to for further evaluation. NIHSS 15 on presentation at .CTA did not show any proximal large vessel occlusion. CTP without any core infarct or penumbra. He had positive amphetamines on his drug screen. His MRI did not show any acute stroke. His exam significantly improved since his presentation to the point where he does not require any therapy. As he received tPA, he was monitored in ICU and discharged. Patient was told to have close follow-up with PCP given the medication changes and his refusal to take atorvastatin with an LDL of 152. 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 Moving around can help prevent blood clots, lung infection (pneumonia ) and other problems. Gradually increasing the number of times you are up moving around will help you return to your normal activity level more quickly. Continue to increase the number of times you are up to the chair and walking daily to return to your normal activity level. Begin to work towards your normal activity level at discharge. Stroke Information F.A.S.T. is an easy way to remember the sudden signs of a stroke. F - face drooping A - arm weakness S - speech difficulty T - TIME TO CALL 911 If the person shows any of theses signs, even if the signs go away, call IMMEDIATELY. Check the time so you will know when the first sign started. Traits and lifestyle habits that increase your risk for stroke include prior stroke/TIA, heredity/race, prior heart attack, high blood pressure, cigarette smoking, carotid or other artery disease, heart disease, high cholesterol, poor diet and drug use. Continue your medications as ordered after discharge. These medications will help reduce your risk of another stroke. Your most recent cholesterol levels, if taken during your stay, will display below. LDL is called "bad" cholesterol because it can stick to your artery ovalle and block blood flow. Your LDL should be below 100. HDL is called the "good" cholesterol. Your HDL should be greater than 40. Your lab results on 01/12/2017: HDL 35 MG/DL* (Ref range: >40 MG/DL); LDL 152 MG/ DL* (Ref range: <100 MG/DL). It is important that you follow-up with your primary care physician 4 to 6 weeks after discharge. Be sure to keep all follow-up appointments. Please bring your discharge instructions with you to your follow-up appointments. Should you have any questions once you have returned home, please feel free to contact the Dehydrogenation Operator at [phone]. Your last blood pressure was BP: 164/84, Your target blood pressure is 140/80 If you have diabetes, even if treated, you are at an increased risk of stroke. Many people with diabetes also have high blood pressure, high cholesterol or are overweight. This increases your risk even more. Smoking doubles your risk of stroke. Quitting can greatly reduce your risk. For more information on smoking cessation call or visit www.smokefree.gov. Report These Signs and Symptoms STROKE Call 911 for the following symptoms: *Sudden numbness or weakness of the face, arm or leg, especially on one side of the body. *Sudden confusion, trouble speaking or understanding. *Sudden trouble seeing in one or both eyes. *Sudden trouble walking, dizziness, loss of balance or coordination. *Sudden, severe headache with no known cause. Return Appointment For Neurology scheduling contact [phone] For Neurosurgery appointments call [phone] Questions About Your Stay STANDARD For questions or concerns regarding your hospital stay: -DURING BUSINESS HOURS (8:00 AM - 4:30 PM): Call [phone] and ask to be transferred to your discharge attending physician. -AFTER BUSINESS HOURS (4:30 PM - 8:00 AM, on weekends, or holidays): Call [phone] and ask the rail doweling machine operator to page the on-call doctor for the discharge attending physician. Discharging attending physician: GIRISH TELLEZ [[id number]] Low Fat / Low Cholesterol Diet Your goal is to limit the amount of saturated and trans fats in your diet. Keep track of how much cholesterol you eat and limit the total amount to 200mg ( milligrams) a day. If you have questions about your diet after you go home, you can call a dietitian at [phone]. Cardiac Diet Limiting unhealthy fats and cholesterol is the most important step you can take in reducing your risk for cardiovascular disease. Unhealthy fats include saturated and trans fats. Monitor your sodium and cholesterol intake. Restrict your sodium to 2g (grams) or 2000mg (milligrams) daily, and your cholesterol to 200mg daily. If you have questions regarding your diet at home, you may contact a dietitian at . Low Sodium Diet You will need to monitor the amount of sodium in your diet. Do not eat more than 2g (grams) or 2000mg (milligrams) per day. If you have questions regarding your diet at home, you may contact a dietitian at . Current Discharge Medication List START taking these medications Details atorvastatin (LIPITOR) 40 mg tablet Take 1 Tab by mouth daily. Qty: 90 Tab, Refills: 3 PRESCRIPTION TYPE: Print CONTINUE these medications which have been CHANGED or REFILLED Details amLODIPine (NORVASC) 10 mg tablet Take 1 Tab by mouth daily. Qty: 90 Tab, Refills: 3 PRESCRIPTION TYPE: Print losartan (COZAAR) 50 mg tablet Take 1 Tab by mouth daily. Qty: 90 Tab, Refills: 3 PRESCRIPTION TYPE: Print CONTINUE these medications which have NOT CHANGED Details aspirin EC 81 mg tablet Take 81 mg by mouth at bedtime daily. Take with food. PRESCRIPTION TYPE: Historical Med BUPROPION HCL (WELLBUTRIN SR PO) Take 150 mg by mouth twice daily. PRESCRIPTION TYPE: Historical Med clopiDOGrel (PLAVIX) 75 mg tablet Take 75 mg by mouth at bedtime daily. PRESCRIPTION TYPE: Historical Med cyclobenzaprine (FLEXERIL) 10 mg tablet Take 10 mg by mouth three times daily as needed for Muscle Cramps. PRESCRIPTION TYPE: Historical Med fish oil- omega 3-DHA/EPA 300/1,000 mg capsule Take 1 Cap by mouth twice daily. PRESCRIPTION TYPE: Historical Med isosorbide mononitrate SR (IMDUR) 60 mg tablet Take 1 Tab by mouth daily. Qty: 90 Tab, Refills: 3 PRESCRIPTION TYPE: Normal nitroglycerin (NITROSTAT) 0.[address] 1 Tab under tongue every 5 minutes as needed for Chest Pain. Max of 3 tablets, call 911. 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 PRESCRIPTION TYPE: Historical Med The following medications were removed from your list. This list includes medications discontinued this stay and those removed from your prior med list in our system baclofen (LIORESAL) 10 mg tablet carvedilol (COREG) 12.5 mg tablet HYDROcodone/acetaminophen(+) (NORCO) 10/[address] (PROTONIX) 40 mg tablet rosuvastatin (CRESTOR) 10 mg tablet Scheduled appointments: Patient needs follow-up appointment with neurology. Pending items needing follow up: Patient needs follow-up appointment with neurology. He was told to call in for an appointment. Consider polysomnogram in Sleep Lab as outpatient. Signed: Grady Monterroso DO 01/16/2017 cc: Primary Care Physician: Silver Hernandes Verified Referring physicians: Silver Hernandes DO Additional provider(s): in this encounter Discharge Instructions * Discharge Instr - Appointments - Sen Monterroso DO - 01/14/2017 1:10 PM CDT Patient needs follow-up appointment with neurology. in this encounter Medications at Time of Discharge Medication Sig. Disp. Refills Start Date End Date amLODIPine (NORVASC) 10 Take 1 Tab by mouth 90 Tab 3 01/14/2017 mg tablet daily. aspirin EC 81 mg tablet Take 81 mg by mouth at bedtime daily. Take with food. atorvastatin (LIPITOR) 40 Take 1 Tab by mouth 90 Tab 3 01/14/2017 mg tablet daily. BUPROPION HCL (WELLBUTRIN Take 150 mg by mouth SR PO) twice daily. clopiDOGrel (PLAVIX) 75 Take 75 mg by mouth at mg tablet bedtime daily. cyclobenzaprine Take 10 mg by mouth three (FLEXERIL) 10 mg tablet times daily as needed for Muscle Cramps. fish oil- omega 3-DHA/EPA Take 1 Cap [...] for Chest Pain. Max of 3 of elem artery of tablets, call 911. elem heart with stable angina pectoris (HCC), Essential hypertension, Mixed hyperlipidemia, Gastroesophageal reflux disease, esophagitis presence not specified, Ischemic chest pain (HCC), Tobacco abuse, History of noncompliance with medical treatment omeprazole DR(+) Take 20 mg by mouth (PRILOSEC) 20 mg capsule daily. as of this encounter Progress Notes * Girish Tellez MD - 01/14/2017 12:58 PM CDT Formatting of this note may be different from the original. 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 Pt presented at OSH with stroke like symptoms s/p tpa. Work up showed normal MRI. CTA. Will treat as stroke like event. Secondary stroke risk factors modification. D/c home today Staff name: Girish Tellez MD Date: 01/15/2017 Kaz Restrepo is a 56 y.o. male with h/o HTN, HLD, Substance abuse, tobacco use , CAD s/p stents presented with right sided weakness, right facial droop and apahsia. He was initially presented to the [place], [place] ED with chest pain. He had witness event of acute onset of right-sided leg greater than arm weakness, right facial droop, global aphasia. NIHSS was 16 at OSH. He was given tPA and sent to for further evaluation. NIHSS 15 on presentation at . CTA did not show any proximal large vessel occlusion. CTP without any core infarct or penumbra. He had positive amphetamines on his drug screen. His MRI did not show any acute stroke. His exam significantly improved since his presentation. As he received tPA, he was monitored in ICU. Right sided weakness - Resolved. HLD Dysphagia (resolved) CAD s/p stents - CTA without vasospasm. No stroke on MRI. - LDL 152, A1C 5.5 - ECHO unremarkable. Plan: - Resumed ACCESS SERVICES REPRESENTATIVE ASA and Plavix - Started on Simvastatin 40, switched to Atorvastatin, but the patient reports not being able to tolerate statins as an outpatient and refuses to take them due to "leg cramps", he was counseled but still refused, he was informed that he can try over the counter fish oil but should follow-up with his PCP as soon as possible - Consulted tobacco cessation - Counseled to quit drugs - Cleared by PT/OT/FACILITIES ENGINEERING MANAGER/Rehab - s/p video swallow, now cleared by speech. Bradycaria - Cardiology consulted and following for bradycardia, . > ACCESS SERVICES REPRESENTATIVE BB held per cardiology HTN > restarted losartan/amlodipine with goal BP of 140/80 Dispo: Patient is to discharge home and follow-up with PCP and neurology. Patient seen and discussed with Dr. Tellez. Subjective: Kaz Restrepo is a 56 y.o. male. No new events noted. Patient reports feeling much better. He reports being mostly back to baseline except for some residual numbness on his R side. He reports eating a [employer] breakfast sandwich this morning without difficulty. He denies any fever, chills, CP (outside of his baseline), SOB, N/V/D, or abdominal pain. He reports quitting drug use. Objective: Vital Signs: Last Filed Vital Signs: 24 Hour Range BP: 164/84 (01/14 120) Temp: 36.9 C (98.4 F) (01/14 1201) Pulse: 70 (01/14 120) Respirations: 16 PER MINUTE (01/14 120) SpO2: 95 % (01/14 0500) O2 Delivery: None (Room Air) (01/14 0500) SpO2 Pulse: 70 (01/14 0500) BP: (159-180)/(55-90) Temp: [36.8 C (98.2 F)-37 C (98.6 F)] Pulse: [61-80] Respirations: [13 PER MINUTE-21 PER MINUTE] SpO2: [95 %-96 %] O2 Delivery: None (Room Air) Intensity Pain Scale 0-10 (Pain 1): (not recorded) Intake/Output Summary: (Last 24 hours) Intake/Output Summary (Last 24 hours) at 01/14/172127 Last data filed at 01/13/17 2300 Gross per 24 hour Intake 240 ml Output 0 ml Net 240 ml Stool Occurrence: 1 Medications: Scheduled Meds: Continuous Infusions: PRN and Respiratory Meds: General physical exam: HEENT: normocephalic, eyes open with no discharge, nares patent, oropharynx is clear with no lesions, palate intact Carotids: No bruits CV: Bradycardic and regular rhythm, systolic ejection murmur that radiates to carotids Chest: normal configuration, lungs are clear bilaterally Ab: soft, non-tender Neuro exam: Mental status: alert, oriented to person/place/time Speech: Normal Abnormal Fluency x Comprehension x Articulation x Repetition x Naming x Cranial Nerves: Normal Abnormal II Pupils reactive, visual belcher normal III, IV, EOMI, no nystagmus V Decreased pin prick R V1-3 VII Mild R facial droop VIII nml to finger rub IX, X +strong cough XI Equal shoulder shrug XII Tongue midline Muscle/motor: SA EF EE WE WF FF FE FA HF KF KE DF PF R 5 5 5 5 5 5 5 5 5 5 5 5 5 L 5 5 5 5 5 5 5 5 5 5 5 5 5 Sensation: Normal RUE LUE RLE LLE Light Touch x Normal RUE LUE RLE LLE Pain Decreased pinprick Decreased pinprick Coordination: Normal Abnormal Right Abnormal Left Finger to Nose x Heel to Mathis x Gait and Sation: WNL Reflexes: Right Left Triceps 2 2 Biceps 2 2 Brachioradialis 2 2 Patella 2 2 Ankle 2 2 Plantar down down Laboratory Review: No results found for: PHART, PCO2A, PO2ART, HCO3A, BASEEXA, BASEDEFA, [id number] Lab Results Component Value Date HGB 12.1 (L) 01/14/2017 HCT 35.5 (L) 01/14/2017 PLTCT 220 01/14/2017 WBC 6.3 01/14/2017 NEUT 62 01/12/2017 ANC 4.00 01/12/2017 Lab Results Component Value Date NA 140 01/14/2017 K 4.3 01/14/2017 CL 109 01/14/2017 CO2 24 01/14/2017 GAP 7 01/14/2017 BUN 17 01/14/2017 CR 1.24 01/14/2017 GLU 106 (H) 01/14/2017 CA 9.0 01/14/2017 MG 1.8 01/13/2017 PO4 3.2 01/13/2017 OBSCA 1.09 01/13/2017 TOTPROT 7.9 08/09/2016 AST 39 08/09/2016 ALT 83 (H) 08/09/2016 ALKPHOS 156 (H) 08/09/2016 Lab Results Component Value Date TNI 0.01 01/12/2017 Lab Results Component Value Date PTT 65.1 (H) 08/15/2016 INR 0.9 01/12/2017 No results found for: TSH, [id number], CORTRAN Lab Results Component Value Date CHOL 231 (H) 01/12/2017 TRIG 216 (H) 01/12/2017 HDL 35 (L) 01/12/2017 LDL 152 (H) 01/12/2017 VLDL 43 01/12/2017 No results found for: VANRAN, VANPK, VANTR No results found for: CYCLOSPOR, TACROLIMUS, FREEPHENY Point of Care Testing: (Last 24 hours): Glucose: (!) 106 Radiology and Other Diagnostics Review: reviewed Sen Monterroso Neurology Resident PGY 2 Pager [phone] * Aye Hall MS,CCC-FACILITIES ENGINEERING MANAGER - 01/14/2017 11:45 AM CDT SPEECH-LANGUAGE PATHOLOGY NO TREATMENT NOTE Chart reviewed and made contact with RN. Pt tolerating diet and PO meds well with no overt s/s aspiration. Speech, swallow, cognition appear to have returned to baseline. Do not anticipate ongoing FACILITIES ENGINEERING MANAGER needs. Therapist: Aye Hall MS,CCC-FACILITIES ENGINEERING MANAGER [phone] Date: 01/14/2017 * [place] Díaz MD - 01/13/2017 2:51 PM CDT Formatting of this note may be different from the original. 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 Cardiology was consulted for bradycardia in the setting of chronic CAD. Patient has a history of chronic total occlusion of the right coronary artery and underwent PCI with a Xience drug-eluting stent to this lesion in 07/2016. He was also found to have a high-grade stenosis to a proximal first obtuse marginal branch and moderate stenosis to the intermediate ramus but not intervened.He had chest discomfort after one week of revascularization but the stent was patent with no new/acute pathology on cardiac catheterization. He was recommended to continue medical management. During hospital course, he developed episodic bradycardias as low as 30/min especially during his sleep. Currently, he states he has non radiating chest pain located left lower chest midclavicular area. He denies headaches, nausea, vomiting, vision changes. He has mild numbness and tingling in right extremities. Denies shortness of breath. Echocardiogram was done today showing Left ventricular systolic function is within normal limits. LVEF 65%. Mild concentric left ventricular hypertrophy. Aortic valve sclerosis without stenosis. EKG with sinus rhythm, no acute ischemic changes. CTA neck showed no pathology on neck vessels. Patient was on carvedilol 12.5 mg for at least 2 years. Review of patient's previous admissions and outside records consistent with chronically low heart rate ranging from 48-60 in the last 2 years. According to patient he was evaluated for sleep apnea and outside hospital and was negative. There is no objective evidence for increased intracranial pressure as well Impression -- Noncardiac chest pain. No evidence of recent UT. -- Sinus rhythm today. Normal AV conduction. Normal QRS axis and duration. Normal QT interval. Rate 60-70 awake, BP stable. No symptoms. Yesterday's bradycardia might be due to a toxin, such as an illicit or prescription drug used but not disclosed to us which is weaned off today. -- Lipid profile is abnormal even on simvastatin. Recommendations/Plan 1. ASA 81 mg 2. Atorvastatin 40 mg instead of simvastatin. 3. Losartan (may adjust the dose for post-stroke BP targets) 4. Nitroglycerin 0.4 mg up to 3 dose as needed. Thank you for the opportunity to participate in the care of this patient. Please call or page with questions. After 5PM please call neon electrician combination machine tool setter. Tuesday - Tuesday 8AM-5PM please call Cardiology consult pager. Pt was seen and discussed with Dr. Charlie MD. [place] Díaz MD PGY-1 Internal Medicine Pager [phone] __ Subjective: Kaz Restrepo is a 56 y.o. male. Overnight Events:none. Patient didn't have bradycardia overnight and during the day. His pulse ranged 48-60's, it was around 70's in the afternoon. Still has mild chest pain but no SOB, palpitation. Feels better today, more active and more alert. Objective: Scheduled Meds: aspirin EC tablet 81 mg 81 mg Oral QHS buPROPion XL (WELLBUTRIN XL) tablet 300 mg 300 mg Oral QDAY clopiDOGrel (PLAVIX) tablet 75 mg 75 mg Oral QHS heparin (porcine) PF syringe 5,000 Units 5,000 Units Subcutaneous Q8H isosorbide mononitrate SR (IMDUR) tablet 60 mg 60 mg Oral QDAY pantoprazole DR (PROTONIX) tablet 40 mg 40 mg Oral QDAY [START ON 01/14/2017] simvastatin (ZOCOR) tablet 40 mg 40 mg Oral QHS Continuous Infusions: PRN and Respiratory Meds: Vital Signs: Last Filed Vital Signs: 24 Hour Range BP: 171/64 (01/13 1200) Temp: 36.9 C (98.4 F) (01/13 1200) Pulse: 61 (01/13 1245) Respirations: 14 PER MINUTE (01/13 1245) SpO2: 97 % (01/13 1200) O2 Delivery: None (Room Air) (01/13 1200) SpO2 Pulse: 54 (01/13 1200) BP: (126-173)/(56-103) Temp: [36.5 C (97.7 F)-36.9 C (98.4 F)] Pulse: [45-61] Respirations: [12 PER MINUTE-19 PER MINUTE] SpO2: [94 %-99 %] O2 Delivery: None (Room Air) Intensity Pain Scale 0-10 (Pain 1): (not recorded) Vitals: 01/12/17 0733 01/12/17 0854 Weight: 71.3 kg (157 lb 3 oz) 71.2 kg (157 lb) Intake/Output Summary: (Last 24 hours) Intake/Output Summary (Last 24 hours) at 01/13/17 1451 Last data filed at 01/13/17 1200 Gross per 24 hour Intake 1750 ml Output 1025 ml Net 725 ml Physical Exam: General: Alert, cooperative, no distress, appears stated age Head: Normocephalic, without obvious abnormality, atraumatic Eyes: Conjunctivae/corneas clear. EOMs intact. Throat: Mucous membranes moist Neck: Supple, symmetrical, trachea midline, no carotid bruit, no hepatojugular reflux, and no JVD Back: Symmetric, no curvature, ROM normal. Lungs: Clear to auscultation bilaterally Chest wall: No tenderness or deformity. Heart: Regular rate and rhythm, S1, S2 normal, no murmur, click rub or gallop Abdomen: Soft, non-tender. Bowel sounds normal. No palpable masses. Extremities: Extremities normal, atraumatic, no cyanosis, no edema Pulses: 2+ and symmetric, all extremities Skin: Skin color, texture, turgor normal. No rashes or lesions Lymph nodes: Cervical, supraclavicular and axillary nodes normal Neurologic: CNII - XII grossly intact. Point of Care Testing: (Last 24 hours): Glucose: 90 (01/13/17 0350) Lab/Other Diagnostic Tests: 24-hour labs: Results for orders placed or performed during the hospital encounter of (from the past 24 hour(s)) BASIC METABOLIC PANEL Collection Time: 01/13/17 3:50 AM Result Value Ref Range Sodium 137 137 - 147 MMOL/L Potassium 4.2 3.5 - 5.1 MMOL/L Chloride 107 98 - 110 MMOL/L CO2 23 21 - 30 MMOL/L Anion Gap 7 3 - 12 Glucose 90 70 - 100 MG/DL Blood Urea Nitrogen 13 7 - 25 MG/DL Creatinine 1.27 (H) 0.4 - 1.24 MG/DL Calcium 8.6 8.5 - 10.6 MG/DL eGFR Non 59 (L) >60 mL/min eGFR >60 >60 mL/min CBC Collection Time: 01/13/17 3:50 AM Result Value Ref Range White Blood Cells 5.7 4.5 - 11.0 K/UL RBC 4.04 (L) 4.4 - 5.5 M/UL Hemoglobin 12.4 (L) 13.5 - 16.5 GM/DL Hematocrit 37.0 (L) 40 - 50 % MCV 91.4 80 - 100 FL MCH 30.6 26 - 34 PG MCHC 33.5 32.0 - 36.0 G/DL RDW 13.6 11 - 15 % Platelet Count 229 150 - 400 K/UL MPV 8.1 7 - 11 FL MAGNESIUM Collection Time: 01/13/17 3:50 AM Result Value Ref Range Magnesium 1.8 1.6 - 2.6 mg/dL PHOSPHORUS Collection Time: 01/13/17 3:50 AM Result Value Ref Range Phosphorus 3.2 2.0 - 4.0 MG/DL IONIZED CALCIUM Collection Time: 01/13/17 3:50 AM Result Value Ref Range Ionized Calcium 1.09 1.0 - 1.3 MMOL/L Other Radiology/Diagnostics Review: Pertinent radiology reviewed. Associated attestation - Catrachito Guerra MD - 01/13/2017 6:58 PM CDT CARDIOLOGY CONSULT STAFF Reviewed with house staff. Patient interviewed and examined by me. More interactive today. HR up to 75 in sinus rhythm. No excessive slowing. Off carvedilol. HR has risen gradually since ~0900 h today. We may be seeing waning effect of carvedilol. 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 Also possible that Mr. Restrepo ingested a substance and the effect is diminishing. Rhythm stable. BP elevated. Current medications include aspirin 81 mg daily, clopidogrel 75 mg daily, simvastatin 40 mg q.PM, and isosorbide mononitrate 60 mg once daily. If OK with Neurology, goal BP is <140/85. History of cough caused by enalapril. Recommend resume treatment with losartan 50 mg once daily. No need to treat with beta receptor tan. Mr. Restrepo has no history of recent UT, LV dysfunction, or heart failure. Lipid profile not favorable on simvastatin. Mr. Restrepo does not have the simvastatin listed in prior to admission medications and may not have been using a 'statin. Recommend replacing with atorvastatin 40 mg daily. Agree with plan to increase activity. From cardiovascular standpoint, ready for discharge at any time. No additional recommendations. Please call again if we may assist. Catrachito Guerra M.D. [phone] * Cadence Walsh, PT - 01/13/2017 1:54 PM CDT PHYSICAL THERAPY PROGRESS NOTE/DISCHARGE FROM PT MOBILITY: Progressive Mobility Level: Walk laps Distance Walked (feet): 250 ft Level of Assistance: Stand by assistance SUBJECTIVE: Significant hospital events: admit from outside hospital who presented s/p tPA for acute onset of right sided weakness and dysphagia. Mental / Cognitive Status: Alert;Oriented;Cooperative Ambulation Assist: Independent Mobility in Community without Device Patient Owned Equipment: None Type of Home: House Entry Stairs: 3-5 Stairs In-Home Stairs: No Stairs STRENGTH: R Hip Flexion: 4+/5 R Knee Extension: 4+/5 R Ankle Dorsiflexion: 4+/5 L Hip Flexion: 5 L Knee Extension: 5 L Ankle Dorsiflexion: 5 BED MOBILITY/TRANSFERS: Bed Mobility: Supine to Sit: Independent Transfer Type: Sit to Stand Transfer: Assistance Level: To/From;Bed;Standby Assist Transfer: Assistive Device: Hand Hold Assist BALANCE: 4 Item Dynamic Gait Index: Assessed Gait Level Surface: 3 - Normal: Walks 20', no assistive devices, good speed, no evidence for imbalance, normal gait pattern Change in Gait Speed: 3 - Normal: Able to smoothly change walking speed without loss of balance or gait deviation. Shows a significant difference in walking speeds between normal, fast and slow speeds. Gait with Horizontal Head Turns: 3 - Normal: Performs head turns smoothly with no change in gait. Gait with Vertical Head Turns: 3 - Normal: Performs head turns smoothly with no change in gait. 4 Dynamic Gait Index Total : 12 out of 12 GAIT: Gait Distance: 250 feet Gait: Assistance Level: Standby Assist Gait: Assistive Device: None Gait: Descriptors: Pace: Normal;No balance loss Stairs: Number Climbed: 6 Stairs: Descriptors: Ascend;Descend;Reciprocal Stairs: Assistance Level: Standby Assist Stairs: Assistive Device: None EDUCATION: Persons Educated: Patient Patient Barriers To Learning: None Noted Interventions: Repetition of Instructions Teaching Methods: Verbal Instruction Patient Response: Verbalized Understanding Topics: Plan/Goals of PT Interventions;Importance of Increasing Activity;Safety Awareness;Up with Assist Only ASSESSMENT/PROGRESS: Patient current status and level of safety suggests progression of activity can be achieved with nursing and/or family and does not require physical therapist intervention GOALS: Goal Formulation: With Patient Time For Goal Achievement: 1 day, To, 4 days Pt Will Go Supine To/From Sit: w/ Stand By Assist, Met Pt Will Transfer Sit to Stand: w/ Stand By Assist, Met Pt Will Ambulate: Greater than 200 Feet, w/ Stand By Assist, Met Pt Will Go Up / Down Stairs: 3-5 Stairs, w/ Stand By Assist, Met PLAN: Plan Frequency: No Further Treatment RECOMMENDATIONS: PT Discharge Recommendations: Home with Assistance Therapist: Cadence Walsh PT Date: 01/13/2017 * Julianna Baer MD - 01/13/2017 12:19 PM CDT Formatting of this note may be different from the original. 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 male with h/o HTN, HLD, Substance abuse, tobacco use , CAD s/p stents presented with right sided weakness, right facial droop and apahsia. He was initially presented to the [place], [place] ED with chest pain. He had witness event of acute onset of right-sided leg greater than arm weakness, right facial droop, global aphasia. NIHSS was 16 at OSH. He was given tPA and sent to for further evaluation. NIHSS 15 on presentation at . CTA did not show any proximal large vessel occlusion. CTP without any core infarct or penumbra. He had positive amphetamines on his drug screen. His MRI did not show any acute stroke. His exam significantly improved since his presentation. As he received tPA, he was monitored in ICU. Right sided weakness - Improving - s/p tPA with concern for stroke. Post tPA monitored in ICU. - Etiology remains unclear. - CTA without vasospasm. No stroke on MRI. Functional? - LDL 152, A1C 5.5 - ECHO unremarkable. Plan: - Resumed ACCESS SERVICES REPRESENTATIVE ASA and Plavix - Started on Simvastatin 40 in ICU. - Continue PT/OT/FACILITIES ENGINEERING MANAGER/Rehab - s/p video swallow - on mechanical soft diet. - Cardiology consulted and following for bradycardia. Plan to transfer to the floor today. Patient seen and discussed with Dr. Baer. ATTESTATION I personally performed the bustamante portions of the E/M visit, discussed case with resident and concur with resident documentation of history, physical exam, assessment, and treatment plan unless otherwise noted. Staff name: Julianna Baer MD Date: 01/13/2017 Subjective: Kaz Restrepo is a 56 y.o. male. No new events noted. Patient reports feeling much better. He denied using any drugs. Objective: Vital Signs: Last Filed Vital Signs: 24 Hour Range BP: 171/64 (01/13 1200) Temp: 36.5 C (97.7 F) (01/13 0800) Pulse: 54 (01/13 1200) Respirations: 14 PER MINUTE (01/13 1200) SpO2: 97 % (01/13 1200) O2 Delivery: None (Room Air) (01/13 1200) SpO2 Pulse: 54 (01/13 1200) BP: (120-173)/(56-103) Temp: [36.5 C (97.7 F)-36.9 C (98.4 F)] Pulse: [45-60] Respirations: [11 PER MINUTE-19 PER MINUTE] SpO2: [94 %-99 %] O2 Delivery: None (Room Air) Intensity Pain Scale 0-10 (Pain 1): (not recorded) Intake/Output Summary: (Last 24 hours) Intake/Output Summary (Last 24 hours) at 01/13/17 1220 Last data filed at 01/13/17 1200 Gross per 24 hour Intake 2300 ml Output 1595 ml Net 705 ml Medications: Scheduled Meds: aspirin EC tablet 81 mg 81 mg Oral QHS buPROPion XL (WELLBUTRIN XL) tablet 300 mg 300 mg Oral QDAY clopiDOGrel (PLAVIX) tablet 75 mg 75 mg Oral QHS heparin (porcine) PF syringe 5,000 Units 5,000 Units Subcutaneous Q8H isosorbide mononitrate SR (IMDUR) tablet 60 mg 60 mg Oral QDAY pantoprazole DR (PROTONIX) tablet 40 mg 40 mg Oral QDAY [START ON 01/14/2017] simvastatin (ZOCOR) tablet 40 mg 40 mg Oral QHS Continuous Infusions: PRN and Respiratory Meds: General physical exam: HEENT: normocephalic, eyes open with no discharge, nares patent, oropharynx is clear with no lesions, palate intact Carotids: No bruits CV: regular rate and rhythm Chest: normal configuration, lungs are clear bilaterally Ab: soft, non-tender Neuro exam: Mental status: alert, oriented to person/place/time Speech: Normal Abnormal Fluency x Comprehension x Articulation x Repetition x Naming x Cranial Nerves: Normal Abnormal II Pupils reactive, visual belcher normal III, IV, EOMI, no nystagmus V Sensation nml V1-V3 VII symmetric face VIII nml to finger rub IX, X +strong cough XI Equal shoulder shrug XII Tongue midline Muscle/motor: SA EF EE WE WF FF FE FA HF KF KE DF PF R 4 4 4 4 4 4 4 4 4 4 4 4 4 L 5 5 5 5 5 5 5 5 5 5 5 5 5 Sensation: Normal RUE LUE RLE LLE Light Touch x Coordination: Normal Abnormal Right Abnormal Left Finger to Nose x Heel to Mathis x Gait and Sation: NT Reflexes: Right Left Triceps 2 2 Biceps 2 2 Brachioradialis 2 2 Patella 2 2 Ankle 2 2 Plantar down down Laboratory Review: No results found for: PHART, PCO2A, PO2ART, HCO3A, BASEEXA, BASEDEFA, [id number] Lab Results Component Value Date HGB 12.4 (L) 01/13/2017 HCT 37.0 (L) 01/13/2017 PLTCT 229 01/13/2017 WBC 5.7 01/13/2017 NEUT 62 01/12/2017 ANC 4.00 01/12/2017 Lab Results Component Value Date NA 137 01/13/2017 K 4.2 01/13/2017 CL 107 01/13/2017 CO2 23 01/13/2017 GAP 7 01/13/2017 BUN 13 01/13/2017 CR 1.27 (H) 01/13/2017 GLU 90 01/13/2017 CA 8.6 01/13/2017 MG 1.8 01/13/2017 PO4 3.2 01/13/2017 OBSCA 1.09 01/13/2017 TOTPROT 7.9 08/09/2016 AST 39 08/09/2016 ALT 83 (H) 08/09/2016 ALKPHOS 156 (H) 08/09/2016 Lab Results Component Value Date TNI 0.01 01/12/2017 Lab Results Component Value Date PTT 65.1 (H) 08/15/2016 INR 0.9 01/12/2017 No results found for: TSH, ALYAH7Q, CORTRAN Lab Results Component Value Date CHOL 231 (H) 01/12/2017 TRIG 216 (H) 01/12/2017 HDL 35 (L) 01/12/2017 LDL 152 (H) 01/12/2017 VLDL 43 01/12/2017 No results found for: VANRAN, SHERRYPK, VANTR No results found for: CYCLOSPOR, TACROLIMUS, FREEPHENY Point of Care Testing: (Last 24 hours): Glucose: 90 Radiology and Other Diagnostics Review: reviewed Nataliya Barajas MD, MPH Neurology Resident PGY 4 Pager [phone] * Yair Pisano MD - 01/13/2017 11:27 AM CDT Formatting of this note may be different from the original. Neurointensivist Critical Care Progress Note Today's Date: 01/13/2017 Name: Kaz Restrepo Admission Date: 01/12/2017 LOS: 1 day ATTESTATION I have seen, personally fully evaluated this patient. The patient is admitted to the NSICU with: Left MCA stroke Hospital and ICU course: 01-12-17: Admit to NSICU, MRI-brain, consult Cardiology 01-13-17: Transfer to floor PMH: Significant for: HTN, HLD, substance abuse, tobacco use, CAD s/p stenting The patient is being managed for: Left MCA stroke bradycardia HTN HLD CAD Hemiplegia I spent 35 minutes (excluding time spent performing or supervising any procedures) providing and personally directing critical care services including Detailed neurological and systems examination Assessment of intravascular volume status Optimization of systemic perfusion pressures Insertion and interpretation of Invasive hemodynamic monitoring data Review of and interpretation laboratory data Review of and interpretation of available imaging studies Review of medications Review of antibiotic, drain prophylaxis Review of DVT/PE Prophylaxis Review of seizure prophylaxis Management of patient on mechanical ventilation Electrolyte management and management of endocrine abnormalities Coordination of care with consult teams Active problems currently being addressed include Patient Active Problem List Diagnosis Date Noted Stroke (HCC) 01/12/2017 Unstable angina (HCC) 08/13/2016 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 male. Overnight Events: Significant event: asymptomatic bradycardia, sign out obtained from shift supervisor rn person ( nurse and [facility] physician). Patient examined: yes Objective: I have reviewed the following medications: Scheduled Meds: aspirin EC tablet 81 mg 81 mg Oral QHS buPROPion XL (WELLBUTRIN XL) tablet 300 mg 300 mg Oral QDAY clopiDOGrel (PLAVIX) tablet 75 mg 75 mg Oral QHS heparin (porcine) PF syringe 5,000 Units 5,000 Units Subcutaneous Q8H isosorbide mononitrate SR (IMDUR) tablet 60 mg 60 [address] Oral QDAY pantoprazole DR (PROTONIX) tablet 40 mg 40 mg Oral QDAY [START ON 01/14/2017] simvastatin (ZOCOR) tablet 40 mg 40 mg Oral QHS Continuous Infusions: PRN and Respiratory Meds: Vital Signs: Last Filed Vital Signs: 24 Hour Range BP: 173/81 (01/13 0900) Temp: 36.5 C (97.7 F) (01/13 0800) Pulse: 60 (01/13 1000) Respirations: 13 PER MINUTE (01/13 1000) SpO2: 97 % (01/13 0900) O2 Delivery: None (Room Air) (01/13 1000) BP: (115-173)/(56-103) Temp: [36.5 C (97.7 F)-36.9 C (98.4 F)] Pulse: [45-60] Respirations: [11 PER MINUTE-19 PER MINUTE] SpO2: [94 %-99 %] O2 Delivery: None (Room Air) Intensity Pain Scale 0-10 (Pain 1): 6 (01/13/17 1000) Vitals: 01/12/17 0733 01/12/17 0854 Weight: 71.3 kg (157 lb 3 oz) 71.2 kg (157 lb) Critical Care Vitals: ICP Monitoring: PA Catheter: Hemodynamics/Oxycalcs: Assessment and Plan: Neuro: GCS: E4, M6, V5 FOUR score: E4 M4 BR4 R4 Cranial Nerve Deficit: yes Focal motor neurodeficit: Yes (improving RUE/LE weakness) Need for Sedation: no E/o Delirium: no Need for restraints: no Seizure prophylaxis: no Steroids: no EVD/Lumbar drain: no Hypertonics: no Plan for management of potential cerebral edema: Avoid Dextrose containing solutions, Maintain Na > 140 mEq/ L, Maintain head of bed elevation at least 30 degrees Keep neck in neutral position to optimize venous drainage Maintain normothermia, avoid hypoxemia, [place] appropriate osmotherapy ( i.e mannitol vs Hypertonic saline) PLAN: 1) Left MCA Stroke - s/p IV tPA, no indication for EVT, MRI-brain today, asa 81 mg and clopidogrel 75 mg, PT/OT/ST and PMR; 2) drug screen negative at [facility], positive for meth at OSH Cardiac: Blood pressure 173/81, pulse 60, temperature 36.5 C (97.7 F), height 175.3 cm (69"), weight 71.2 kg (157 lb), SpO2 97 %. SBP (transduce arterial line at the tragus) CPP goal > 60 ( In presence of ICP monitor) Need for vasopressors: no Need for anti-hypertensive: no Hemodynamic monitoring/resuscitation : Goals of resuscitation: (in presence of invasive hemodynamic monitors) CPP 65-110 ICP < 20 mmHg SVV < 13% SVI 40-50 CI > 2.4 Lactate < 2 Base deficit < 4 SCVO2 goal > 70% Urine output goal > 0.5 ml/kg/hr PLAN: 1) SBP goal <185 mmHg; 2) TTE done - EF 65%, mild LVH; 3) HLD - change statin to simvastatin 40 mg due to h/o myopathy with Crestor and atorvastatin; 4) CAD s/p stenting -asa and clopidogrel, restart ACCESS SERVICES REPRESENTATIVE Imdur and losartan; 5) Chest Pain - troponins negative; 6) Bradycardia - appreciate Cardiology consult, hold Coreg, continue to monitor as he becomes more active Respiratory: Respiratory status: Stable Need for mechanical ventilation: no Lung protective strategies in place Chest physiotherapy, Incentive spirometry, bronchotherapy, Avoid Hypoxemia, maintain SPO2 > 95% Monitor for and maintain normocapnia in absence of intracranial hypertension PLAN: O2 via nasal cannula prn Endocrine: Monitor for and maintain normoglycemia: target BG 100-180 mg/dl, with use of SSI or insulin infusion Imaging: CXR/Neuroimaging: reviewed Radiology and Other Diagnostic Procedures Reviewed Lab Review: 24-hour labs: Results for orders placed or performed during the hospital encounter of (from the past 24 hour(s)) TROPONIN-I Collection Time: 01/12/17 11:48 AM Result Value Ref Range Troponin-I 0.01 0.0 - 0.05 NG/ML LIPID PROFILE Collection Time: 01/12/17 11:48 AM Result Value Ref Range Cholesterol 231 (H) <200 MG/DL Triglycerides 216 (H) <150 MG/DL HDL 35 (L) >40 MG/DL LDL 152 (H) <100 MG/DL VLDL 43 MG/DL Non HDL Cholesterol 196 MG/DL BASIC METABOLIC PANEL Collection Time: 01/12/17 11:48 AM Result Value Ref Range Sodium 137 137 - 147 MMOL/L Potassium 4.6 3.5 - 5.1 MMOL/L Chloride 107 98 - 110 MMOL/L CO2 22 21 - 30 MMOL/L Anion Gap 8 3 - 12 Glucose 92 70 - 100 MG/DL Blood Urea Nitrogen 14 7 - 25 MG/DL Creatinine 1.28 (H) 0.4 - 1.24 MG/DL Calcium 8.6 8.5 - 10.6 MG/DL eGFR Non 58 (L) >60 mL/min eGFR >60 >60 mL/min POC CREATININE, RAD Collection Time: 01/12/17 1:31 PM Result Value Ref Range Creatinine, POC 1.3 (H) 0.4 - 1.24 MG/DL AMPHETAMINES-URINE RANDOM Collection Time: 01/12/17 2:17 PM Result Value Ref Range Amphetamines NEG NEG-NEG BARBITURATES-URINE RANDOM Collection Time: 01/12/17 2:17 PM Result Value Ref Range Barbiturates,Urine NEG NEG-NEG BENZODIAZEPINES-URINE RANDOM Collection Time: 01/12/17 2:17 PM Result Value Ref Range Benzodiazepines NEG NEG-NEG CANNABINOIDS-URINE RANDOM Collection Time: 01/12/17 2:17 PM Result Value Ref Range THC NEG NEG-NEG COCAINE-URINE RANDOM Collection Time: 01/12/17 2:17 PM Result Value Ref Range Cocaine-Urine NEG NEG-NEG OPIATES-URINE RANDOM Collection Time: 01/12/17 2:17 PM Result Value Ref Range Opiates-Urine NEG NEG-NEG PHENCYCLIDINES-URINE RANDOM Collection Time: 01/12/17 2:17 PM Result Value Ref Range Phencyclidine (PCP) NEG NEG-NEG BASIC METABOLIC PANEL Collection Time: 01/13/17 3:50 AM Result Value Ref Range Sodium 137 137 - 147 MMOL/L Potassium 4.2 3.5 - 5.1 MMOL/L Chloride 107 98 - 110 MMOL/L CO2 23 21 - 30 MMOL/L Anion Gap 7 3 - 12 Glucose 90 70 - 100 MG/DL Blood Urea Nitrogen 13 7 - 25 MG/DL Creatinine 1.27 (H) 0.4 - 1.24 MG/DL Calcium 8.6 8.5 - 10.6 MG/DL eGFR Non 59 (L) >60 mL/min eGFR >60 >60 mL/min CBC Collection Time: 01/13/17 3:50 AM Result Value Ref Range White Blood Cells 5.7 4.5 - 11.0 K/UL RBC 4.04 (L) 4.4 - 5.5 M/UL Hemoglobin 12.4 (L) 13.5 - 16.5 GM/DL Hematocrit 37.0 (L) 40 - 50 % MCV 91.4 80 - 100 FL MCH 30.6 26 - 34 PG MCHC 33.5 32.0 - 36.0 G/DL RDW 13.6 11 - 15 % Platelet Count 229 150 - 400 K/UL MPV 8.1 7 - 11 FL MAGNESIUM Collection Time: 01/13/17 3:50 AM Result Value Ref Range Magnesium 1.8 1.6 - 2.6 mg/dL PHOSPHORUS Collection Time: 01/13/17 3:50 AM Result Value Ref Range Phosphorus 3.2 2.0 - 4.0 MG/DL IONIZED CALCIUM Collection Time: 01/13/17 3:50 AM Result Value Ref Range Ionized Calcium 1.09 1.0 - 1.3 MMOL/L Point of Care Testing: (Last 24 hours): Glucose: 90 (01/13/17 0350) Drains: reviewed Prophylaxis Review: Lines: No Urinary Catheter: No Antibiotic Usage: No VTE: Pharmacological prophylaxis; SQ Heparin and Mechanical prophylaxis; Sequential compression device PT, OT, evaluation and treatment Diet: Enteral nutrition with PO, Or Corpak access if unable to swallow and is at risk for aspiration. Social work and case work aide for discharge planning and placement. Family Meeting and update: yes. Patient is able to make his or her decisions, family updated during rounds. Goals of therapy: Addressed, Patient is a full code Nurses concerns addressed. Disposition/Family: Transfer to neurology service X Yair G. Norris, MD Parking Lot Manager, Department of Neurology and Neurosurgery Pager: [phone] Date: 01/13/2017 X * Mai Pedersen, OT - 01/13/2017 11:13 AM CDT Formatting of this note may be different from the original. 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 Normal abdominal aorta and renal arteries. Elevated liver function tests GERD (gastroesophageal reflux disease) 08/09/2016 History of methamphetamine abuse + UDS 09/2015 - pt denies drug use History of noncompliance with medical treatment 08/09/2016 Hyperlipidemia 08/09/2016 Hypertension 08/09/2016 Tobacco abuse 08/09/2016 Mobility Progressive Mobility Level: Walk in room Distance Walked (feet): 30 ft Level of Assistance: Stand by assistance Assistive Device: None Activity Limited By: No limitations Subjective Pertinent Dx per Physician: stroke symptoms (R weakness, dysarthria) s/p tPA. MRI negative for stroke. +methamphetamine Precautions: Falls Comments: Pt with 6/10 chest pain that is chronic and feels like pressure. Activity does not increase pain. Vitals stable, RN aware and ok'd tx. Objective Psychosocial Status: Willing and Cooperative to Participate Persons Present: None Prior Function Other Function Comments: Pt lives with girlfriend and is independent with ADLs and IADLs, does cooking/housekeeping "sometimes". No DME. Vision Comment: denies deficit, none apparent during ADLs ADL's Grooming Assist: Supervision Only For Lines Grooming Deficits: Brushing Hair;Teeth Care;Wash/Dry Face;Wash/Dry Hands Functional Transfer Assist: Supervision Only for Lines Comment: Pt independent with bed mobility. Contact guard assist progressing to independent with ambulation in room as pt with good balance and no dizziness. Able to doff/don socks chair level without difficulty. BUE AROM, strength and coordination is WNL. Able to easily open packaging on oral hygiene items. Pt appears to be back to baseline function. Cognition Cognition Comment: no obvious deficit DISCHARGE RECOMMENDATION: home, no equipment needs identified Therapist: Mai Pedersen OT Date: 01/13/2017 * Aye Hall MS,CCC-FACILITIES ENGINEERING MANAGER - 01/13/2017 9:07 AM CDT SPEECH-LANGUAGE PATHOLOGY VIDEOSWALLOW ASSESSMENT EVALUATION SUMMARY Videoswallow Summary*: A videoswallow study was completed this date. Results indicate oropharyngeal swallow is WFL. Occasional instances of laryngeal penetration observed with large consecutive drinks thin liquid barium before the swallow due to mistimed airway protection, with contrast visualized to be cleared from laryngeal vestibule upon completion of swallow. No aspiration appreciated for this study. Anticipate swallow to be consistent with baseline. Of note, facial droop and dysarthria markedly improved this date as compared to admission. Please see below for detailed findings. RECOMMENDATIONS Regular diet with thin liquids PO meds as tolerated Excellent oral care FACILITIES ENGINEERING MANAGER will follow for ongoing assessment of motor speech and will complete cognitive-communication evaluation if indicated. MBSImp Scale: Lip closure for intraoral bolus containment resulted in no labial escape. Tongue control during bolus hold resulted in posterior escape of less than half of bolus. Bolus preparation and mastication resulted in timely and efficient chewing and mashing. Bolus transport/lingual motion demonstrated delayed initiation of tongue motion. Oral residue was a trace, lining oral structures. Initiation of the pharyngeal swallow occured when the bolus head was in the pyriform sinuses. Soft palate elevation resulted in no bolus between the soft palate and the pharyngeal wall. Laryngeal elevation demonstrated complete superior movement of the thyroid cartilage with complete approximation of the arytenoids to the epiglottic petiole. Anterior hyoid excursion demonstrated partial anterior movement. Epiglottic movement resulted in complete inversion. Laryngeal vestibular closure was complete, as indicated by no air or contrast within the laryngeal vestibule at the height of the swallow. Pharyngeal stripping wave was present and complete. Pharyngeal contraction could not be assessed due to logistical reasons not related to physiologic impairment. Pharyngoesophageal segment opening demonstrated partial distention /partial duration, with partial obstruction of bolus flow. Tongue base retraction allowed a trace column of contrast or air between the retracted tongue base and the posterior pharyngeal wall. Pharyngeal residue was a trace within or on pharyngeal structures. Esophageal clearance in the upright position could not be assessed due to logistical reasons not related to physiologic impairment. Swallow Recommendations* PO: Advance as Tolerated, Regular, Thin Liquids Plan*: Continue Treatment 2-3x/ Week Prognosis*: Good NOMS Dysphagia Rating*: 7-Normal -Ability to eat indep not limited by swallow function. Swallow safe/efficient for all consistencies. Compensatory strategies effectively used when needed. Penetration Aspiration Scale*: 2 - Material enters laryngeal vestibule, remains above vocal folds & is ejected Objective* Relevant Med Background: 56 y/o male. Current smoker and methamphetamine user. Does not use alcohol. Hx HTN, lipid disorder, CAD post PCI 07/2016, normal LVEF, and GERD. Complained of chest pain past 5 days or so. After 2 days, behavior became abusive. Struck lilianee causing ecchymosis around left eye. Behavior calmed, then escalated again. Today, complained of chest pain. No response to NTG x 3. Taken by herb to [facility]. BP slightly elevated on arrival. Treated with sublingual and topical NTG. UDS + amphetamine. Developed right facial droop, aphasia or dysarthria, flaccid right hemiplegia, and left-sided weakness. Presumed to have acute stroke. CT head w/o contrast negative for hemorrhage. Treated with tPA and transferred to Stroke Center at [facility]. Neurologically improved when compared with description from sending hospital. CTA chest 01/12 Impressions: 1. Nondiagnostic for pulmonary venous embolus. No filling defect identified in the left atrium. Normal sized heart. 2. Mild dependent atelectasis in the bases greater on the left with no pleural effusion. 3. Calcified multivessel coronary artery atherosclerotic disease. 4. Minimal retained secretions in the proximal left mainstem bronchus. MRI head 7/26 Impressions: 1. No evidence for acute infarct. 2. Remote appearing infarct in the right basal ganglia. Hearing: WFL Psychosocial Status: Willing and Cooperative to Participate Persons Present: None Subjective* Pain: Patient complains of pain Pain Level Current*: 6 Severe pain Trach Presence: No Feeding Tube Present During Eval: None Nutrition* Nutrition Prior To Hospitalization: Oral, Regular, Thin Liquids Current Form Of Nutrition: NPO Views / Seating* Views / Seating: Lateral View, Sitting at 90 Degrees Upright Barium Consist/Presentation* Presentations: Therapist Fed, Patient Fed Self Thin Liquid: 1 Tsp, Cup, Straw, Consecutive Swallows Other Consistencies: Pudding, Regular Solids Education* Persons Educated: Patient Barriers To Learning: None Noted Interventions: Staff Educated Teaching Methods: Verbal Topics: Dysphagia Patient Response: Verbalized Understanding Therapist: Aye Hall MS,CCC-FACILITIES ENGINEERING MANAGER [phone] Date: 01/13/2017 * Zully Castelan APRN-WATER REGISTRAR - 01/13/2017 6:29 AM CDT Formatting of this note may be different from the original. 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 male HTN, HLD, tobacco use, CAD s/p PCI with GIULIANO to RCA on 08/09/16 who presented s/p tPA for acute onset of right sided weakness and dysphagia. Hospital and ICU course: 01/12: Admitted to ICU, started statin, troponin, ekg, echo Neuro: hx of stroke now s/p tPA for right sided weakness -MRI 01/12: 1. No evidence for acute infarct. 2. Remote appearing infarct in the right basal ganglia. -CTA 01/12: 1. 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 2. Normal CTA of the head without intracranial arterial stenosis or occlusion. -CTA neck: 1. Normal CTA of the neck. 2. 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 3. Secretions are noted within the distal trachea and right mainstem Bronchus. -CT perfusion: Normal CT perfusion. Plan: - LDL 152, goal < 70- ACCESS SERVICES REPRESENTATIVE crestor increased to 20mg today - A1C 5.5 - ASA 81 and Plavix 75mg daily- resume today - PT/OT/FACILITIES ENGINEERING MANAGER/Rehab consulted Cardiac: hx of HTN, CAD, HLD, chest pain, bradycardia Echo 01/12: EF 65%, mild LVH, no shunt/thrombus CTA chest 01/12: negative for PE - cards consulted, appreciate recs - continue holding ACCESS SERVICES REPRESENTATIVE coreg 12.5mg QD - will restart imdur 60mg daily today, consider restarting losartan 50mg daily if needed for BP control - SBP goal: <160 - MAP goal > 65 - crestor daily Respiratory: H/o tobacco abuse - smoking cessation - Stable on room air - Spo2 goal >95% GI: H/O GERD, Dysphagia - Feeding: regular diet - FACILITIES ENGINEERING MANAGER following- video swallow negative for aspiration, diet advanced - bowel regimen, ensure daily BM - continue PPI daily Heme: - Hgb 12.4 - assess for coagulopathy, maintain platelets above 100k, INR <1.5 - SQ heparin for DVT ppx ID: - WBC 5.7,afebrile - aim for normothermia, Temp <38.3 celsius, normothermia protocol if febrile Renal: GERI- Cr 1.27, may be chronic, unknown baseline - daily BMP - Aim for normovolemia Intake/Output Summary (Last 24 hours) at 01/13/17 1124 Last data filed at 01/13/17 1000 Gross per 24 hour Intake 2300 ml Output 1595 ml Net 705 ml Endocrine: - Hgb A1C 5.5 - Blood glucose goal 100-180mg/dl FEN: - IVF: DC IVF - Magnesium goal >2.0, i-Carlos Eduardo goal > 1.0, Potassium goal >4.0 mEq/L Prophylaxis Review: A)GI: PPI B) Lines: PIVs C) Urinary Catheter: Smith D) Antibiotic Usage: None E) VTE: SCDs, SQ Heparin F) Isolation: None G)Seizures: None I) Restraints: Patient assessed for need for restraints. Disposition/Family: ICU Primary service: NCC Consults: Rehabilitative Medicine SUBJECTIVE Kaz Rosey Restrepo is a 56 y.o. male. Overnight Events: No new events noted. Patient denies chest pain this AM. Does c/o dull headache. OBJECTIVE Vital Signs: Last Filed Vital Signs: 24 Hour Range BP: 173/81 (01/13 0900) Temp: 36.5 C (97.7 F) (01/13 0800) Pulse: 60 (01/13 1000) Respirations: 13 PER MINUTE (01/13 1000) SpO2: 97 % (01/13 0900) O2 Delivery: None (Room Air) (01/13 1000) BP: (115-173)/(56-103) Temp: [36.5 C (97.7 F)-36.9 C (98.4 F)] Pulse: [45-60] Respirations: [11 PER MINUTE-19 PER MINUTE] SpO2: [94 %-99 %] O2 Delivery: None (Room Air) Intensity Pain Scale 0-10 (Pain 1): 6 (01/13/17 1000) Vitals: 01/12/17 0733 01/12/17 0854 Weight: 71.3 kg (157 lb 3 oz) 71.2 kg (157 lb) Artificial airway: None Ventilator/ Respiratory Therapy: No Vent weaning trial: Not applicable Lines: Peripheral Line Drains: None Critical Care Vitals: ICP Monitoring: Hemodynamics/Oxycalcs: Intake/Output Summary: (Last 24 hours) Intake/Output Summary (Last 24 hours) at 01/13/17 1124 Last data filed at 01/13/17 1000 Gross per 24 hour Intake 2300 ml Output 1595 ml Net 705 ml Physical Exam: Blood pressure 173/81, pulse 60, temperature 36.5 C (97.7 F), height 175.3 cm (69"), weight 71.2 kg (157 lb), SpO2 97 %. Alexandra coma score: E: 3 - Opens eyes to loud noise or command M: 6 - Follows simple motor commands V: 5 - Alert and oriented Neuro: Mental Status: drowsy, but awakens easily to participate in exam Cranial Nerves: - face symmetric, speech slightly dysarthric - Pupil exam: 3 mm brisk bilaterally - EOM: intact Motor: RUE: Strength: 4/5; slight drift RLE: Strength: 5/5; LUE: Strength: 5/5; LLE: Strength: 5/5; Sensory: normal Lungs: clear to auscultation bilaterally Pulmonary: Respiratory status: Stable Heart: regular rate and rhythm, S1, S2 normal, no murmur, click, rub or gallop Abdomen: soft, non-tender. Bowel sounds normal. No masses, no organomegaly Extremities: extremities normal, atraumatic, no cyanosis or edema Skin: Skin color, texture, turgor normal. No rashes or lesions Point of Care Testing: (Last 24 hours) Glucose: 90 (01/13/17 0350) Lab Review: 24-hour labs: Results for orders placed or performed during the hospital encounter of (from the past 24 hour(s)) TROPONIN-I Collection Time: 01/12/17 11:48 AM Result Value Ref Range Troponin-I 0.01 0.0 - 0.05 NG/ML LIPID PROFILE Collection Time: 01/12/17 11:48 AM Result Value Ref Range Cholesterol 231 (H) <200 MG/DL Triglycerides 216 (H) <150 MG/DL HDL 35 (L) >40 MG/DL LDL 152 (H) <100 MG/DL VLDL 43 MG/DL Non HDL Cholesterol 196 MG/DL BASIC METABOLIC PANEL Collection Time: 01/12/17 11:48 AM Result Value Ref Range Sodium 137 137 - 147 MMOL/L Potassium 4.6 3.5 - 5.1 MMOL/L Chloride 107 98 - 110 MMOL/L CO2 22 21 - 30 MMOL/L Anion Gap 8 3 - 12 Glucose 92 70 - 100 MG/DL Blood Urea Nitrogen 14 7 - 25 MG/DL Creatinine 1.28 (H) 0.4 - 1.24 MG/DL Calcium 8.6 8.5 - 10.6 MG/DL eGFR Non 58 (L) >60 mL/min eGFR >60 >60 mL/min POC CREATININE, RAD Collection Time: 01/12/17 1:31 PM Result Value Ref Range Creatinine, POC 1.3 (H) 0.4 - 1.24 MG/DL AMPHETAMINES-URINE RANDOM Collection Time: 01/12/17 2:17 PM Result Value Ref Range Amphetamines NEG NEG-NEG BARBITURATES-URINE RANDOM Collection Time: 01/12/17 2:17 PM Result Value Ref Range Barbiturates,Urine NEG NEG-NEG BENZODIAZEPINES-URINE RANDOM Collection Time: 01/12/17 2:17 PM Result Value Ref Range Benzodiazepines NEG NEG-NEG CANNABINOIDS-URINE RANDOM Collection Time: 01/12/17 2:17 PM Result Value Ref Range THC NEG NEG-NEG COCAINE-URINE RANDOM Collection Time: 01/12/17 2:17 PM Result Value Ref Range Cocaine-Urine NEG NEG-NEG OPIATES-URINE RANDOM Collection Time: 01/12/17 2:17 PM Result Value Ref Range Opiates-Urine NEG NEG-NEG PHENCYCLIDINES-URINE RANDOM Collection Time: 01/12/17 2:17 PM Result Value Ref Range Phencyclidine (PCP) NEG NEG-NEG BASIC METABOLIC PANEL Collection Time: 01/13/17 3:50 AM Result Value Ref Range Sodium 137 137 - 147 MMOL/L Potassium 4.2 3.5 - 5.1 MMOL/L Chloride 107 98 - 110 MMOL/L CO2 23 21 - 30 MMOL/L Anion Gap 7 3 - 12 Glucose 90 70 - 100 MG/DL Blood Urea Nitrogen 13 7 - 25 MG/DL Creatinine 1.27 (H) 0.4 - 1.24 MG/DL Calcium 8.6 8.5 - 10.6 MG/DL eGFR Non 59 (L) >60 mL/min eGFR >60 >60 mL/min CBC Collection Time: 01/13/17 3:50 AM Result Value Ref Range White Blood Cells 5.7 4.5 - 11.0 K/UL RBC 4.04 (L) 4.4 - 5.5 M/UL Hemoglobin 12.4 (L) 13.5 - 16.5 GM/DL Hematocrit 37.0 (L) 40 - 50 % MCV 91.4 80 - 100 FL MCH 30.6 26 - 34 PG MCHC 33.5 32.0 - 36.0 G/DL RDW 13.6 11 - 15 % Platelet Count 229 150 - 400 K/UL MPV 8.1 7 - 11 FL MAGNESIUM Collection Time: 01/13/17 3:50 AM Result Value Ref Range Magnesium 1.8 1.6 - 2.6 mg/dL PHOSPHORUS Collection Time: 01/13/17 3:50 AM Result Value Ref Range Phosphorus 3.2 2.0 - 4.0 MG/DL IONIZED CALCIUM Collection Time: 01/13/17 3:50 AM Result Value Ref Range Ionized Calcium 1.09 1.0 - 1.3 MMOL/L Radiology and Other Diagnostic Procedures Review: Pertinent radiologic and diagnostic procedures reviewed. Zully Castelan, LOW VOLTAGE ELECTRICIAN-WATER REGISTRAR Date: 01/13/[phone] I spent 45 minutes managing the care of this patient. Kaz Restrepo is critically ill with right sided weakness, HTN, chest pain, bradycardia. Cares included: detailed neurologic and systems exam, medication review, laboratory data review and interpretation, electrolyte management, review of available imaging, DVT/PE prophylaxis review, diet review, activity review, and coordination of care with consulted teams * Cadence Walsh, PT - 01/12/2017 3:18 PM CDT PHYSICAL THERAPY ASSESSMENT MOBILITY: Progressive Mobility Level: Active transfer to chair Level of Assistance: Assist X1 Assistive Device: Hand Held Time Tolerated: 11-30 minutes SUBJECTIVE: Significant hospital events: admit from outside hospital who presented s/p tPA for acute onset of right sided weakness and dysphagia. Mental / Cognitive Status: Alert;Oriented;Cooperative Ambulation Assist: Independent Mobility in Community without Device Patient Owned Equipment: None Home Situation: (lives with girlfriend) Type of Home: House Entry Stairs: 3-5 Stairs In-Home Stairs: No Stairs ROM: ROM Method: Active Assistive R LE; Active L LE LE ROM: Bilateral;WFL STRENGTH: R Hip Flexion: 3-/5 R Knee Extension: 3-/5 R Ankle Dorsiflexion: 4/5 L Hip Flexion: 5 L Knee Extension: 5 L Ankle Dorsiflexion: 5 POSTURE/NEURO: LUE Sensation/Proprioception: Intact Light Touch RUE Sensation/Proprioception: Impaired Light Touch LLE Sensation/Proprioception: Intact Light Touch RLE Sensation/Proprioception: Impaired Light Touch BED MOBILITY/TRANSFERS: Bed Mobility: Supine to Sit: Minimal Assist Transfer Type: Sit to Stand Transfer: Assistance Level: To/From;Bed;Minimal Assist Transfer: Assistive Device: Hand Hold Assist The patient able to sit edge of bed with standby assist. In standing performed weight shift x10 repetitions and marching in place with minimal assist to steady prior to transfer. GAIT Gait Distance: 4-5 steps to assist with transfer to chair Gait: Assistance Level: Minimal Assist Gait: Assistive Device: Hand Hold Assist Gait: Descriptors: Pace: Slow;Decreased step length; Decreased pre swing in R LE The patient declines farther ambulation, noting he would like to sit in chair and see "how that goes first". Agreeable to attempt ambulation tomorrow with therapy. EDUCATION: Persons Educated: Patient Patient Barriers To Learning: None Noted Interventions: Repetition of Instructions Teaching Methods: Verbal Instruction Patient Response: Verbalized Understanding Topics: Plan/Goals of PT Interventions;Importance of Increasing Activity;Safety Awareness;Up with Assist Only ASSESSMENT/PROGRESS: Assessment/Progress: Should Improve w/ Continued PT GOALS: Goal Formulation: With Patient Time For Goal Achievement: 1 day, To, 4 days Pt Will Go Supine To/From Sit: w/ Stand By Assist Pt Will Transfer Sit to Stand: w/ Stand By Assist Pt Will Ambulate: Greater than 200 Feet, w/ Stand By Assist Pt Will Go Up / Down Stairs: 3-5 Stairs, w/ Stand By Assist PLAN: Plan Frequency: 5-7 Days per Week Continue to work on progressing ambulation and work towards independence with mobility. RECOMMENDATIONS: PT Discharge Recommendations: Inpatient Setting;Recommend Physical Medicine and Rehabilitation Consult to address most appropriate level of rehabilitation placement Therapist: Cadence Walsh, PT Date: 01/12/2017 * Maciel Castellanos RN - 01/12/2017 1:16 PM CDT Pt transported to CT via bed with this RN and ADITYA Adorno. VSS, no complications. * Tila Traylor RN - 01/12/2017 12:30 PM CDT Pt taken to MRI via bed with 2 RN's. Pt monitored by Resource RN during scan. * Aye Hall, MS,CCC-FACILITIES ENGINEERING MANAGER - 01/12/2017 11:11 AM CDT SPEECH-LANGUAGE PATHOLOGY CLINICAL SWALLOW ASSESSMENT EVALUATION SUMMARY Summary: A clinical swallow evaluation was completed this date. Pt with no overt s/s aspiration with consistencies presented, though he did intermittently present with multiple swallows and mild vocal quality changes. Pt with upper/ lower right facial weakness, reduced level of arousal, and with secretions noted within trachea and right mainstem bronchus on imaging. No acute changes in CTA but MRI not yet completed. Will complete ongoing assessment of motor speech as indicated. Will complete ongoing assessment of swallow pending review of additional head imaging. Please see below for detailed findings. RECOMMENDATIONS Continue NPO Ice chips sparingly for oral comfort/moisture and to facilitate functional swallow If medically appropriate, recommend Videoswallow study on 01/13 to further assess swallow Excellent oral care to reduce risk of aspirating bacteria in oral secretions FACILITIES ENGINEERING MANAGER will follow for dysphagia and dysarthria management. Will complete speech/ language evaluation if indicated. Will update d/c recommendations pending completion of additional assessment. Oral Stage Summary*: Pt presented ice chips via spoon, thins via spoon, cup, and straw, and purees via spoon. Pt with adequate bolus procurement. Some repetitive lingual movement for A-P transfer. Did not assess mastication as no solids presented. No significant oral residue with thins or purees. Pharyngeal Stage Summary*: Would anticipate degree of mistimed airway protection. Intermittently with multiple swallows (2-3 per bolus), suggesting penetration/aspiration and/or incomplete pharyngeal clearance. Also intermittently with mild vocal quality change with mildly wet vocal quality as well as breaks in voicing. No overt coughing/throat clearing. Swallow Recommendations* NPO: Temporary Non-Oral Nutrition PO: Ice Chips Only Plan: Continue Treatment Daily., Patient Would Benefit from Further Speech Therapy Post Acute Hospitalization. Prognosis: Good Results Reported to Physician: Yes Objective* Relevant Med Background: Pt is a 56yo male admitted with possible stroke, with cardiac history. H&P not yet in chart. Pt is an active smoker per report. CTA head: 1. 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 2. Normal CTA of the head without intracranial arterial stenosis or occlusion. CTA neck: 1. Normal CTA of the neck. 2. 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 3. Secretions are noted within the distal trachea and right mainstem bronchus. CT perfusion: Normal CT perfusion. Hearing: WFL Psychosocial Status: Willing and Cooperative to Participate Persons Present: None Subjective* Pain: Patient complains of pain Pain Level Current*: 8 Very severe pain Trach Presence: No Feeding Tube Present During Eval: None Nutrition* Nutrition Prior To Hospitalization: Oral, Regular, Thin Liquids (per pt report) Current Form Of Nutrition: NPO ORAL MECH EXAM Oral Mech WFL*: No Oral Mech Exam Summary*: Upper and lower right facial weakness. No significant lingual asymmetry. Some degree of imprecise consonant production, perceived slower rate of speech, reduced vocal intensity. Some missing dentition but adequate for mastication. Education* Persons Educated: Patient Barriers To Learning: Decreased Alertness Interventions: Staff Educated Teaching Methods: Verbal Topics: Dysphagia Patient Response: Verbalized Understanding Goal Formulation: With Patient Clinical Swallow Goals* Goal : Pt will participate in ongoing assessment of swallow, given minimal cues to participate. Goal : Pt will tolerate ice chip protocol with less than 10% overt s/s aspiration and free from respiratory status changes. Therapist:Aye Hall MS,CCC-FACILITIES ENGINEERING MANAGER [phone] Date:01/12/2017 * Marie Monroe, RT - 01/12/2017 10:07 AM CDT Formatting of this note may be different from the original. RESPIRATORY THERAPY ADULT PROTOCOL EVALUATION RESPIRATORY PROTOCOL PLAN Medications Note: If indicated by protocol, medication orders will be placed by therapist. Procedures PAP: Place a nursing order for "IS Q1h While Awake" for any of Lung Expansion indicators PATIENT EVALUATION RESULTS Chart Review * Pulmonary Hx: Smoking cessation < 8 weeks OR still smoking OR > 20 pack/yr hx (PEFR) OR occasional use of bronchodilator (AM) (Current smoker) * Surgical Hx: No surgery OR last surgery > 6 weeks ago OR trach/stoma (BA) * Chest X-Ray: Clear OR not available * PFT/Oxygenation: FEV1, PEFR > 80% predicted OR physically unable to perform OR Pa02 >80 RA OR Sp02 >95% RA Patient Assessment * Respiratory Pattern: Regular pattern and rate OR good chest excursion with deep breathing * Breath Sounds: Diminished bilaterally (LE) OR decreased bilaterally with productive cough (AC) * Cough / Sputum: Strong, effective cough OR nonproductive * Mental Status: Alert, oriented, cooperative * Activity Level: Ambulatory with assistance Priority Index Total Points: 5 Points * Priority Index: 1 PRIORITY INDEX GUIDELINES* Priority Points 1 0-9 points 2 9-18 points 3 > 18 points + Pulm Dx or Home Rx *Higher points indicate higher acuity. Therapist: Marie Monroe, RT Date: 01/12/2017 [place] AC=Airway clearance AM=Aerosolized medication BA=[place] aerosol DB&C=Deep breathe & cough FEV1=Forced expiratory volume in first second) IC=Inspiratory capacity LE=Lung expansion MDI=Metered dose inhaler Neb=Nebulizer O2=Oxygen Oxim=Oximetry PEFR=Peak expiratory flow rate LUMBER TYING MACHINE OPERATOR=Rapid Response Team in this encounter Plan of Treatment Not on fileas of this encounter Procedures Procedure Name Priority Date/Time Associated Diagnosis Comments ECG UNCONFIRMED-SCAN 01/21/2017 Results for this 7:42 AM CDT procedure are in the results section. TELEMETRY STRIPS-SCAN 01/20/2017 Results for this 1:41 PM CDT procedure are in the results section. ECG-SCAN 01/16/2017 Results for this 11:23 AM CDT procedure are in the results section. in this encounter Results * ECG UNCONFIRMED-SCAN (01/21/2017 7:42 AM) Narrative Ordered by an unspecified provider. * TELEMETRY STRIPS-SCAN (01/20/2017 1:41 PM) Narrative Ordered by an unspecified provider. * ECG-SCAN (01/16/2017 11:23 AM) Narrative Ordered by an unspecified provider. * CBC (01/14/2017 4:40 AM) Component Value Ref Range White Blood [...] - 11 FL Specimen Performing Laboratory [facility] [address] [place] [address] * BASIC METABOLIC PANEL (01/14/2017 4:40 AM) Component Value Ref Range Sodium 140 137 [...] Performing Laboratory [facility] [address] [place] [address] * SWALLOW MOTION SERIES (01/13/2017 8:48 AM) [...] Celestin M.D. on 01/13/2017 9:47 AM. * CBC (01/13/2017 3:50 AM) Component Value Ref Range White Blood Cells 5.7 4.5 - 11.0 K/UL RBC 4.04 (L) 4.4 - 5.5 M/UL Hemoglobin 12.4 (L) 13.5 - 16.5 GM/DL Hematocrit 37.0 (L) 40 - 50 % MCV 91.4 80 - 100 FL MCH 30.6 26 - 34 PG MCHC 33.5 32.0 - 36.0 G/DL RDW 13.6 11 - 15 % Platelet Count 229 150 - 400 K/UL MPV 8.1 7 - 11 FL Specimen Performing Laboratory [facility] [address] [place] [address] * BASIC METABOLIC PANEL (01/13/2017 3:50 AM) Component Value Ref Range Sodium 137 137 - 147 MMOL/L Potassium 4.2 3.5 - 5.1 MMOL/L Chloride 107 98 - 110 MMOL/L CO2 23 21 - 30 MMOL/L Anion Gap 7 3 - 12 Glucose 90 70 - 100 MG/DL Blood Urea Nitrogen 13 7 - 25 MG/DL Creatinine 1.27 (H) 0.4 - 1.24 MG/DL Calcium 8.6 8.5 - 10.6 MG/DL eGFR Non 59 (L) >60 mL/min Comment: The eGFR is not [...] Specimen Performing Laboratory [facility] [address] [place] [id number] * IONIZED CALCIUM (01/13/2017 3:50 AM) Component Value Ref Range Ionized Calcium 1.09 1.0 - 1.3 MMOL/L Specimen Performing Laboratory [facility] [address] [place] [address] 35494 * PHOSPHORUS (01/13/2017 3:50 AM) Component Value Ref Range Phosphorus 3.2 2.0 - 4.0 MG/DL Specimen Performing Laboratory [facility] [address] [place] [address] 79[address] * MAGNESIUM (01/13/2017 3:50 AM) Component Value Ref Range Magnesium 1.8 1.6 - 2.6 mg/dL Specimen Performing Laboratory [facility] [address] [place] [address]31 * CTA CHEST WO/W CONTRAST+POST IMPRESSION (01/12/2017 [...] M.D. on 01/27/2017 5:28 PM. Dictated by Zak Bartholomew M.D. on 01/13/2017 4:18 PM. Impressions [...] (PCP) 25 NG/ML Specimen Performing Laboratory Urine [facility] [address] [place] [address]44 * OPIATES-URINE RANDOM (01/12/2017 2:17 PM) Component Value Ref Range Opiates-Urine NEG NEG-NEG Comment: RESULTS WERE OBTAINED BY IMMUNOASSAY AND ARE PRESUMPTIVE ONLY. POSITIVE INDICATES THE PRESENCE OF SUBSTANCE WITH CHARACTERISTICS SIMILAR TO DRUG-DRUG CLASS OR METABOLITE IN CONC. EQUAL TO OR EXCEEDING VALUES LISTED. OPIATES 200 0 NG/ML Specimen Performing Laboratory [facility] [address] [place] [address] * COCAINE-URINE RANDOM (01/12/2017 2:17 PM) Component Value Ref Range Cocaine-Urine NEG NEG-NEG Comment: RESULTS WERE OBTAINED BY IMMUNOASSAY AND ARE PRESUMPTIVE ONLY. POSITIVE INDICATES THE PRESENCE OF SUBSTANCE WITH CHARACTERISTICS SIMILAR TO DRUG-DRUG CLASS OR METABOLITE IN CONC. EQUAL TO OR EXCEEDING VALUES LISTED. COCAINE 300 NG/ML Specimen Performing Laboratory Urine [facility] [address] [place] [address]645 * CANNABINOIDS-URINE RANDOM (01/12/2017 2:17 PM) Component Value Ref Range THC NEG NEG-NEG Comment: RESULTS WERE OBTAINED BY IMMUNOASSAY AND ARE PRESUMPTIVE ONLY. POSITIVE INDICATES THE PRESENCE OF SUBSTANCE WITH CHARACTERISTICS SIMILAR TO DRUG-DRUG CLASS OR METABOLITE IN CONC. EQUAL TO OR EXCEEDING VALUES LISTED. CANNABINOIDS 50 NG/ML Specimen Performing Laboratory [facility] [address] [place] [address]20[address] * BENZODIAZEPINES-URINE RANDOM (01/12/2017 2:17 PM) Component Value Ref Range Benzodiazepines NEG NEG-NEG Comment: RESULTS WERE OBTAINED BY IMMUNOASSAY AND ARE PRESUMPTIVE ONLY. POSITIVE INDICATES THE PRESENCE OF SUBSTANCE WITH CHARACTERISTICS SIMILAR TO DRUG-DRUG CLASS OR METABOLITE IN CONC. EQUAL TO OR EXCEEDING VALUES LISTED. BENZODIAZEPINES 200 NG/ML Specimen Performing Laboratory [facility] [address] [place] [address] * BARBITURATES-URINE RANDOM (01/12/2017 2:17 PM) Component Value Ref Range Barbiturates,Urine NEG NEG-NEG Comment: RESULTS WERE OBTAINED BY IMMUNOASSAY AND ARE PRESUMPTIVE ONLY. POSITIVE INDICATES THE PRESENCE OF SUBSTANCE WITH CHARACTERISTICS SIMILAR TO DRUG-DRUG CLASS OR METABOLITE IN CONC. EQUAL TO OR EXCEEDING VALUES LISTED. BARBITURATES 200 NG/ML Specimen Performing Laboratory [facility] [address] [place] [address]71 * AMPHETAMINES-URINE RANDOM (01/12/2017 2:17 PM) Component Value Ref Range Amphetamines NEG NEG-NEG Comment: RESULTS WERE OBTAINED BY IMMUNOASSAY AND ARE PRESUMPTIVE ONLY. POSITIVE INDICATES THE PRESENCE OF SUBSTANCE WITH CHARACTERISTICS SIMILAR TO DRUG-DRUG CLASS OR METABOLITE IN CONC. EQUAL TO OR EXCEEDING VALUES LISTED. AMPHETAMINES 1000 NG/ML Specimen Performing Laboratory [facility] [address] [place] [address] * MRI HEAD WO/W CONTRAST (01/12/2017 1:36 [...] 1.24 MG/DL Specimen Performing Laboratory [facility] [address] [place] [address] * BASIC METABOLIC PANEL (01/12/2017 11:48 AM) Component Value Ref Range Sodium 137 137 - 147 MMOL/L Potassium 4.6 3.5 - 5.1 MMOL/L Chloride 107 98 - 110 MMOL/L CO2 22 21 - 30 MMOL/L Anion Gap 8 3 - 12 Glucose 92 70 - 100 MG/DL Blood Urea Nitrogen 14 7 - 25 MG/DL Creatinine 1.28 (H) 0.4 - 1.24 MG/DL Calcium 8.6 8.5 - 10.6 MG/DL eGFR Non 58 (L) >60 mL/min Comment: The eGFR is not [...] Clinical Pharmacist for questions. Specimen Performing Laboratory MA[facility] [address] [place] [address] * LIPID PROFILE (01/12/2017 11:48 AM) Component [...] than 130 mg/dL. Specimen Performing Laboratory [facility] [address] [place] [address]183 * TROPONIN-I (01/12/2017 11:48 AM) Component Value Ref Range Troponin-I 0.01 0.0 - 0.05 NG/ML Specimen Performing Laboratory [facility] [address] [place] [address] * TROPONIN-I (01/12/2017 9:39 AM) Component Value Ref Range Troponin-I 0.01 0.0 - 0.05 NG/ML Specimen Performing Laboratory [facility] [address] [place] [address] * 2-D + DOPPLER ECHOCARDIOGRAM (01/12/2017 8:54 AM) Component Value Ref Range BSA 1.86 m2 Referring Provider Dexter Hernandes CV ECHO PV SANDWICH AND DRINK CART OPERATOR Floor RN LVIDD 3.3 4.2 - 5.9 [...] sclerosis without stenosis. No pericardial effusion. * IONIZED CALCIUM (01/12/2017 7:40 AM) Component Value Ref Range Ionized Calcium 1.08 1.0 - 1.3 MMOL/L Specimen Performing Laboratory [facility] [address] [place] [address] * TROPONIN-I (01/12/2017 7:34 AM) Component Value Ref Range Troponin-I 0.01 0.0 - 0.05 NG/ML Specimen Performing Laboratory Blood [facility] [address] [place], [place] [id number] * PHOSPHORUS (01/12/2017 7:34 AM) Component Value Ref Range Phosphorus 3.5 2.0 - 4.0 MG/DL Specimen Performing Laboratory Blood [facility] [address] [place], [place] [id number] * MAGNESIUM (01/12/2017 7:34 AM) Component Value Ref Range Magnesium 1.8 1.6 - 2.6 mg/dL Specimen Performing Laboratory Blood [facility] [address] [place], [place] [id number] * PROTIME INR (PT) (01/12/2017 7:34 AM) Component Value Ref Range INR 0.9 0.8 - 1.2 Specimen Performing Laboratory Blood [facility] [address] [place], [place] [id number] * CBC AND DIFF (01/12/2017 7:34 AM) [...] - 0.20 K/UL Specimen Performing Laboratory [facility] [address] [place] [address] * HEMOGLOBIN A1C (01/12/2017 7:34 AM) Component Value Ref Range Hemoglobin A1C 5.5 4.0 - 6.0 % Comment: The ADA recommends that most patients with type 1 and type 2 diabetes maintain an A1c level <7%. Specimen Performing Laboratory [facility] [address] [place] [address] * CT BRAIN PERF (01/12/2017 7:25 AM) [...] stenosis. There is origin of the right SANDBLASTER GLASS. The anterior, middle, and posterior cerebral arteries [...] stenosis. There is origin of the right SANDBLASTER GLASS. The anterior, middle, and posterior cerebral arteries [...] stenosis. There is origin of the right SANDBLASTER GLASS. The anterior, middle, and posterior cerebral arteries [...] stenosis. There is origin of the right SANDBLASTER GLASS. The anterior, middle, and posterior cerebral arteries [...] expressed in this report Finalized by Stuart Rgoel M.D. on 01/12/2017 8:07 AM. Dictated by [...] stenosis. There is origin of the right SANDBLASTER GLASS. The anterior, middle, and posterior cerebral arteries [...] stenosis. There is origin of the right SANDBLASTER GLASS. The anterior, middle, and posterior cerebral arteries [...] CT HEAD EXTERNAL IMAGING (01/12/2017 12:30 AM) Narrative This order has been auto finalized and does not contain a result. * CT CHEST EXTERNAL IMAGING (01/12/2017 12:15 AM) Narrative This order has been auto finalized and does not contain a result. * CT HEAD EXTERNAL IMAGING (01/12/2017) Narrative This order has been auto finalized and does not contain a result. 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) Essential hypertension Unspecified essential hypertension Mixed hyperlipidemia Tobacco abuse Tobacco use disorder Transient cerebral ischemia, unspecified type GERI (acute kidney injury) (HCC) Acute kidney failure, unspecified Dysphagia, unspecified type History of noncompliance with medical treatment Personal history of noncompliance with medical treatment, presenting hazards to health Coronary artery disease involving elem coronary artery of elem heart with angina pectoris (HCC) GERD (gastroesophageal reflux disease) Esophageal reflux Chest pain Chest pain, unspecified in this encounter Admitting Diagnoses Diagnosis acute stroke Stroke (HCC) in this encounter Administered Medications Medication Order MAR Action Action Date Dose Rate Site aspirin EC tablet 81 mg Given 01/13/2017 81 mg 81 mg, Oral, AT BEDTIME DAILY, First 20:01 CDT dose on Lucila 01/13/17 at 2100, Until Discontinued atorvastatin (LIPITOR) tablet 40 mg Given 01/14/2017 40 mg 40 mg, Oral, DAILY, First dose on Tue 08:32 CDT 01/14/17 at 0900, Until Discontinued barium sulfate 40 % (VARIBAR HONEY) oral Given 01/13/2017 10 mL suspension 10 mL 08:30 CDT 10 mL, Oral, ONCE, 1 dose, Lucila 01/13/17 at 0830, GI Procedure Area Only barium sulfate 40 % (VARIBAR NECTAR) Given 01/13/2017 10 mL oral suspension 10 mL 08:30 CDT 10 mL, Oral, ONCE, 1 dose, Lucila 01/13/17 at 0830, GI Procedure Area Only barium sulfate 40 % (VARIBAR PUDDING) Given 01/13/2017 10 mL oral paste 10 mL 08:30 CDT 10 mL, Oral, ONCE, 1 dose, Lucila 01/13/17 at 0830, GI Procedure Area Only barium sulfate 40 % (VARIBAR THIN Given 01/13/2017 10 mL LIQUID) oral powder for suspension 10 mL 08:30 CDT 10 mL, Oral, ONCE, 1 dose, Lucila 01/13/17 at 0830, Mixing Instructions: 1. Gently shake the barium sulfate to loosen the powder. 2. Remove Cap. Add water to the 40% (w/v) line and replace the cap. 3. Invert bottle and tap with fingers to mix the powder into the water. 4. Shake vigorously for 30 seconds. Let stand for 5 minutes. 5. Suspension has hydrated and settled. Re-fill with water to the 40% line and replace cap. 6. Re-shake thoroughly. Product is now ready for use. buPROPion XL (WELLBUTRIN XL) tablet 300 Given 01/13/2017 300 mg mg 10:51 CDT 300 mg, Oral, DAILY, First dose on Lucila 01/13/17 at 1000, Until Discontinued, DO NOT CRUSH Given 01/14/2017 300 mg 08:32 CDT calcium carbonate (TUMS) chew tablet Given 01/13/2017 1,000 mg 500-1,000 mg 22:00 CDT 500-1,000 mg, Oral, EVERY 4 HOURS PRN, Starting Lucila 01/13/17 at 2020, Until Tue01/14/17 at 1652, Indigestion/Heartburn, Each tab delivers 200mg elemental calcium. clopiDOGrel (PLAVIX) tablet 75 mg Given 01/13/2017 75 mg 75 mg, Oral, AT BEDTIME DAILY, First 20:01 CDT dose on Lucila 01/13/17 at 2100, Until Discontinued, This Medication can increase the risk of bleeding and may need to be held prior to surgery or invasive procedures. Consult physician in advance. gadobenate dimeglumine (MULTIHANCE) Given 01/12/2017 14 mL injection 14 mL 13:33 CDT 14 mL, Intravenous, ONCE, 1 dose, Tue01/12/17 at 1330, NOTE: This is a HIGH ALERT Medication. heparin (porcine) PF syringe 5,000 Units Given 01/13/2017 5,000 Units Abdomen:LLQ 5,000 Units, Subcutaneous, EVERY 8 13:50 CDT HOURS, First dose on Lucila 01/13/17 at 0830, Until Discontinued, NOTE: This is a HIGH ALERT Medication. Given 01/13/2017 5,000 Units Abdominal 22:00 CDT Tissue Given 01/14/2017 5,000 Units Abdominal 06:28 CDT Tissue iopamidol 370 (ISOVUE-370) injection 100 Given 01/12/2017 100 mL mL 07:15 CDT 100 mL, Intravenous, ONCE, 1 dose, Tue01/12/17 at 0730, NOTE: This is a HIGH ALERT Medication. iopamidol 370 (ISOVUE-370) injection 60 Given 01/12/2017 60 mL mL 18:00 CDT 60 mL, Intravenous, ONCE, 1 dose, Tue01/12/17 at 1800, NOTE: This is a HIGH ALERT Medication. isosorbide mononitrate SR (IMDUR) tablet Given 01/13/2017 60 mg 60 mg 10:51 CDT 60 mg, Oral, DAILY, First dose on Lucila 01/13/17 at 1115, Until Discontinued, DO NOT Crush tablets Given 01/14/2017 60 mg 08:32 CDT ONDANSETRON HCL (PF) 4 MG/2 ML IJ SOLN Given 01/13/2017 4 mg (Cabinet Override) 15:23 CDT NOW, 1 dose, Tue01/13/17 at 1530, Created by edgardo toledo pantoprazole DR (PROTONIX) tablet 40 mg Given 01/13/2017 40 mg 40 mg, Oral, DAILY, First dose on Tue 09:46 CDT 01/12/17 at 0900, Until Discontinued, Do not crush or chew tablet. Given 01/14/2017 40 mg 08:32 CDT rosuvastatin (CRESTOR) tablet 20 mg Given 01/13/2017 20 mg 20 mg, Oral, DAILY, First dose on Tue 09:46 CDT 01/13/17 at 0900, Until Discontinued sodium chloride 0.9 % infusion Given - New 01/12/2017 100 mL/hr 1,000 mL, Intravenous, at 50 mL/hr, Bag 08:30 CDT CONTINUOUS, Starting Tue01/12/17 at 0745, Until Tue01/13/17 at 0952 Dose/Rate Change 01/13/2017 50 mL/hr 07:23 CDT sodium chloride PF 0.9% injection 100 mL Given 01/12/2017 100 mL 100 mL, Intravenous, ONCE, 1 dose, Tue 07:30 CDT 01/12/17 at 0730, Intra-procedure (IR) sodium chloride PF 0.9% injection 50 mL Given 01/12/2017 50 mL 50 mL, Intravenous, ONCE, 1 dose, Tue 18:00 CDT 01/12/17 at 1800, Intra-procedure (IR) in this encounter
--- OUTSIDE RECORDS SUMMARY | 2017-01-28 19:16 | XMS REPORT | Encounter Summary ---
Author Author [facility] Organization [facility] Address Unknown Phone Unavailable Care Team Providers Care Flagger Name Role Phone PCP Unavailable Encounter Details Date Type Department Care Team Description 01/12/2017 Procedure Pass [facility] ICU [address] [place] [address] Social History Tobacco Use Types [...]
--- OUTSIDE RECORDS SUMMARY | 2017-01-28 19:16 | XMS REPORT | Encounter Summary ---
Author Author [facility] Organization [facility] Address Unknown Phone Unavailable Care Team Providers Care Dining Service Worker Name Role Phone PCP Unavailable Reason for Visit * Reason Comments New To Provider 6 mos hosp f/u PCI was done in hosp. Encounter Details Date Type Department Care Team Description 11/08/2016 Office Visit [facility] Sarah Camara PA-C New To Provider (6 mos [address] [place] [address] hosp f/u PCI was done in [facility] [address] hosp. ) [place] [address] [place] [address] [phone] David Singh MD [address] [facility] [address] [address] [place] [address] [phone] Social History Tobacco Use Types Packs/Day Years Used Date Current Every Day Smoker Cigarettes Alcohol Use Drinks/Week oz/Week Comments Yes 0 Standard 0.0 drinks or equivalent Sex Assigned at Date Recorded Not on file as of this encounter Last Filed Vital Signs Vital Sign Reading Time Taken Blood Pressure 102/64 11/08/2016 11:07 AM CDT Pulse - - Temperature - - Respiratory Rate - - Oxygen Saturation - - Inhaled Oxygen - - Concentration Weight 74.5 kg (164 lb 3.2 oz) 11/08/2016 11:07 AM CDT Height 175 cm (5' 8.9") 11/08/2016 11:07 AM CDT Body Mass Index 24.32 11/08/2016 11:07 AM CDT in this encounter Functional Status Functional Status Response Date of Assessment Does the patient have a hearing impairment: No 08/13/2016 as of this encounter Instructions * Patient Instructions - BernardoeJsMANUEL castorena - 11/08/2016 11:32 AM CDT Start taking rosuvastatin (Crestor) 10 mg daily. Recheck cholesterol in 3 months. Work on quitting smoking. Stop the Norvasc Start Losartan 50mg daily (stop the lisinopril - causes the cough) in this encounter Progress Notes * BernardoJesMANUEL castorena - 11/08/2016 11:15 AM CDT Formatting of this note may be different from the original. Date of Service: 11/08/2016 Kaz Restrepo is a 56 y[address]o. male. HPI Dr. Simms and I had the pleasure of seeing Kaz Restrepo for post hospital cardiac follow-up. He is a 56-year-old with history of coronary disease, hypertension, hyperlipidemia, and tobacco use. He was referred for a chronic total occlusion of the right coronary artery and underwent PCI with a Xience drug-eluting stent to this lesion. He was also noted to have a high-grade stenosis to a proximal first obtuse marginal branch and moderate stenosis to the intermediate ramus. He was readmitted for chest discomfort. He went back to the rn lab, but the stent was patent and the distal circumflex obtuse marginal branch was a small vessel supplying a very small amount of myocardium. It was not felt to be contributing to his chest discomfort, and medical management was recommended. He was started on isosorbide. Since he has been home, his chest pain has essentially resolved. He is taking his medications as prescribed. He is having some dizziness and lightheadedness. He was started on atorvastatin, but it caused significant leg discomfort. He stopped the medication, which helped, but he still has leg pain with ambulation. He had studies to assess for peripheral vascular disease that apparently were negative. ([id number]) Filed Vitals: 11/08/16 1107 BP: 102/64 Height: 1.75 m (5' 8.9") Weight: 74.481 kg (164 lb 3.2 oz) Body mass index is 24.32 kg/(m^2). Past Medical History Patient Active Problem List Diagnosis Date Noted Unstable angina (HCC) 08/13/2016 Coronary artery disease of koi artery of koi heart with stable angina pectoris (HCC) 08/09/2016 07/29/16: heart cath ([place], [place]) - total occlusion of the right [...] abuse 08/09/2016 CAD (coronary artery disease) 08/09/2016 Review of Systems Constitution: Positive for weakness and malaise/fatigue. HENT: Negative. Eyes: Positive for blurred vision. Cardiovascular: Positive for claudication. Respiratory: Positive for cough and snoring. Endocrine: Negative. Hematologic/Lymphatic: Bruises/bleeds easily. Skin: Positive for dry skin and poor wound healing. Musculoskeletal: Positive for joint pain and muscle weakness. Gastrointestinal: Positive for heartburn and nausea. Genitourinary: Positive for decreased libido. Neurological: Positive for dizziness, focal weakness and vertigo. Psychiatric/Behavioral: Positive for depression. Allergic/Immunologic: Negative. Physical Exam General Appearance: no acute distress Skin: warm & intact HEENT: unremarkable Neck Veins: neck veins are flat & not distended Carotid Arteries: no bruits Chest Inspection: chest is normal in appearance Auscultation/Percussion: lungs clear to auscultation, no rales, rhonchi, or wheezing Cardiac Rhythm: regular rhythm & normal rate Cardiac Auscultation: Normal S1 & S2, no S3 or S4, no rub Murmurs: no cardiac murmurs Extremities: no lower extremity edema; 2+ symmetric distal pulses Abdominal Exam: soft, non-tender, no masses, bowel sounds normal Liver & Spleen: no organomegaly Neurologic Exam: oriented to time, place and person; no focal neurologic deficits Psychiatric: Normal mood and affect. Behavior is normal. Judgment and thought content normal. Problems Addressed Today Encounter Diagnoses Name Primary? Coronary artery disease of koi artery of koi heart with stable angina pectoris (HCC) Essential hypertension Mixed hyperlipidemia Gastroesophageal reflux disease, esophagitis presence not specified Ischemic chest pain (HCC) Tobacco abuse History of noncompliance with medical treatment Assessment and Plan Assessment and Plan: 1. Coronary disease. He had a recent stent to the HUMAN RESOURCE ADVISOR of the right coronary artery. He needs to continue aspirin indefinitely and Plavix for at least 6 months, preferably 12 months following stent placement. He needs ongoing risk factor modification. 2. Hypertension. His blood pressure is on the low side of normal and he is having some dizziness with position changes. He also complains of a cough, which may be related to lisinopril. We will stop amlodipine and switch him from lisinopril to losartan 50 mg daily. He should continue to check his pressure at home and let us know if it runs high. 3. Dyslipidemia. He did not tolerate atorvastatin secondary to leg pain. We will try rosuvastatin 10 mg daily and recheck cholesterol in 3 months. If he does not tolerate rosuvastatin, we may need to consider a PCSK9 inhibitor. 4. Tobacco use. Cessation is encouraged. He follows with Dr. Lao and can continue to follow with him routinely. We are available as needed. Thank you for allowing us to participate in the care of this pleasant individual. If you have questions or concerns, please do not hesitate to contact us. ([id number]) Lidia Chang, CIVIL DESIGN TECHNICIAN-C Current Medications (including today's revisions) amLODIPine (NORVASC) 10 mg tablet Take 10 mg by mouth daily. aspirin EC 81 mg tablet Take 81 mg by mouth daily. Take with food. carvedilol (COREG) 12.5 mg tablet Take 6.25 mg by mouth twice daily with meals. Take with food. clopiDOGrel (PLAVIX) 75 mg tablet Take 75 mg by mouth daily. fish oil- omega 3-DHA/EPA 300/1,000 mg capsule Take 1 Cap by mouth daily. isosorbide mononitrate SR (IMDUR) 60 mg tablet Take 1 Tab by mouth daily. lisinopril (PRINIVIL; ZESTRIL) 20 mg tablet Take 20 mg by mouth daily. nitroglycerin (NITROSTAT) 0.[address] 1 Tab under tongue every 5 minutes as needed for Chest Pain. Max of 3 tablets, call 911. pantoprazole DR (PROTONIX) 40 mg tablet Take 40 mg by mouth daily. Mr. Restrepo was seen with Lidia Chang, our Advanced Nurse Practitioner. He is doing well post intervention with regard to his chest pain. I would like for him to remain on aspirin indefinitely, and Plavix preferably for 12 months; however, at least a minimum of 6 months. He has been having some orthostatic lightheadedness. His blood pressures are low and he gets dizzy at the same time , so we are going to discontinue the amlodipine. In addition, he notes he is having a dry, hacky cough on lisinopril, so we will switch this over to losartan. His physical exam was unremarkable. With regard to the plan, he is going to be seeing Dr. Lao back in followup. We appreciate being able to participate in his care. Please feel free to contact us if you have any further questions. ([id number]) in this encounter Plan of Treatment Not on fileas of this encounter Visit Diagnoses Diagnosis Coronary artery disease of koi artery of koi heart with stable angina pectoris (HCC) - Primary Essential hypertension Unspecified essential hypertension Mixed hyperlipidemia Tobacco abuse Tobacco use disorder in this encounter
--- OUTSIDE RECORDS SUMMARY | 2017-01-28 19:16 | XMS REPORT | Encounter Summary ---
Author Author [facility] Organization [facility] Address Unknown Phone Unavailable Care Team Providers Care Bone Char Kiln Operator Name Role Phone PCP Unavailable Reason for Visit * Reason Comments Dizziness Encounter Details Date Type Department Care Team Description 11/16/2016 Telephone [facility]iology Abigail Marie RN Dizziness [address] [place] [facility] [address] [place], [place] [id number] Social History Tobacco Use Types Packs/Day Years Used Date Current Every Day Smoker Cigarettes Alcohol Use Drinks/Week oz/Week Comments Yes 0 Standard 0.0 drinks or equivalent Sex Assigned at Date Recorded Not on file as of this encounter Functional Status Functional Status Response Date of Assessment Does the patient have a hearing impairment: No 08/13/2016 as of this encounter Plan of Treatment Not on fileas of this encounter Visit Diagnoses Not on filein this encounter
--- OUTSIDE RECORDS SUMMARY | 2017-01-28 19:16 | XMS REPORT | Encounter Summary ---
Author Author [facility] Organization [facility] Address Unknown Phone Unavailable Care Team Providers Care Air Pollution Auditor Name Role Phone PCP Unavailable Encounter Details Date Type Department Care Team Description 01/12/2017 Procedure Pass Neuroscience & ENT ICU [address] [facility] [place] [address] Social History Tobacco Use Types [...]
--- OUTSIDE RECORDS SUMMARY | 2017-01-28 19:16 | XMS REPORT | Encounter Summary ---
Author Author [facility] Organization [facility] Address Unknown Phone Unavailable Care Team Providers Care Section Leader And Machine Setter Name Role Phone PCP Unavailable Reason for Visit * Reason Comments Patient Questions Encounter Details Date Type Department Care Team Description 11/17/2016 Telephone [facility] Cardiology Abigail Marie, ADITYA Patient Questions [address] [place] [facility] [address] [place] [address] Social History Tobacco Use Types Packs/Day Years [...]
[2017-01-28 19:17] LABS: BASOPHILS % (AUTO) 1 % (0-10); EOSINOPHILS # (AUTO) 0.5 10^3/uL (0.0-0.3); EOSINOPHILS % (AUTO) 6 % (0-10); LYMPHOCYTES # (AUTO) 2.3 X 10^3 (1.0-4.0); LYMPHOCYTES % (AUTO) 30 % (12-44); MEAN CORPUSCULAR HEMOGLOBIN 32 PG (25-34); MEAN CORPUSCULAR HGB CONC 35 G/DL (32-36); MEAN CORPUSCULAR VOLUME 92 FL (80-99); MEAN PLATELET VOLUME 9.8 FL (7.4-10.4); MONOCYTES # (AUTO) 0.9 X 10^3 (0.0-1.0); MONOCYTES % (AUTO) 11 % (0-12); NEUTROPHILS # (AUTO) 4.1 X 10^3 (1.8-7.8); NEUTROPHILS % (AUTO) 53 % (42-75); PLATELET COUNT 458 10^3/uL (130-400); RED BLOOD COUNT 4.42 10^6/uL (4.35-5.85); RED CELL DISTRIBUTION WIDTH 12.7 % (10.0-14.5); WHITE BLOOD COUNT 7.9 10^3/uL (4.3-11.0)
--- NOTE | 2017-01-28 19:25 | Diagnostic Imaging Report ---
INDICATION: STROKE. COMPARISON: 01/20/17. EXAMINATION: CT of the head without contrast. FINDINGS: The ventricles are normal in size, shape and position. There is no midline shift or mass effect. There is no focus of acute ischemia or hemorrhage. There is no midline shift or mass effect. No cerebral edema is identified. The bony calvarium, visualized paranasal sinuses and mastoids are normal. IMPRESSION: No acute intracranial abnormality. Stable CT head. No interval change. Dictated by: Dictated on workstation # [id number]
[2017-01-28 19:26] LABS: INR 0.9 (0.8-1.4); PROTHROMBIN TIME PATIENT 11.4 SEC (12.2-14.7)
[2017-01-28 19:35] LABS: BILIRUBIN,URINE NEGATIVE (NEGATIVE); KETONES,URINE NEGATIVE (NEGATIVE); LEUKOCYTE ESTERASE ,URINE 2+ (NEGATIVE); NITRITE,URINE NEGATIVE (NEGATIVE); PH,URINE 5 (5-9); PROTEIN,URINE 2+ (NEGATIVE); UROBILINOGEN,URINE NORMAL (NORMAL)
[2017-01-28 19:36] LABS: ALANINE AMINOTRANSFERASE 77 U/L (0-55); ALBUMIN 4.3 GM/DL (3.2-4.5); ANION GAP 15 MMOL/L (5-14); ASPARTATE AMINO TRANSFERASE 35 U/L (5-34); BILIRUBIN,TOTAL 0.2 MG/DL (0.1-1.0); BLOOD UREA NITROGEN 21 MG/DL (7-18); BUN/CREATININE RATIO 16; CALCIUM 9.9 MG/DL (8.5-10.1); CARBON DIOXIDE 22 MMOL/L (21-32); CHLORIDE 103 MMOL/L (98-107); CREATININE SERUM 1.31 MG/DL (0.60-1.30); GFR ESTIMATED 57; GLUCOSE 117 MG/DL (70-105); POTASSIUM 4.9 MMOL/L (3.6-5.0); SODIUM 140 MMOL/L (135-145); TOTAL PROTEIN 9.7 GM/DL (6.4-8.2)
[2017-01-28 19:42] LABS: TROPONIN I < 0.30 NG/ML (<0.30)
--- NOTE | 2017-01-28 19:42 | ED Neurological Problem ---
General Chief Complaint: Neuro-Stroke Like Symptoms Stated Complaint: RT SIDED WEAKNESS Nursing Triage Note: patient brought in by ems with c/o increased weakness on R, patient had a stroke 2 weeks ago Nursing Sepsis Screen: No Definite Risk History of Present Illness Time seen by provider: 19:05 Initial Comments Patient presented via EMS for right sided weakness, slurred speech and inability follow simple commands. The patient's girlfriend notified EMS that patient was acting normal with none of the symptoms he presents with at approximately 1330. She returned home at approximately 1800 and the patient was found in a position, complaining of mild chest pain and unable to use his right extremities. She noted his right side to be drooping and notified 911 for EMS. The patient was admitted to via [facility] 01/20 through 01/24/17 for chest pain and workup for clotting disorder. He was flown to [facility] on 726 for chest pain and possible CVA. All work ups to this point have been negative for CVA. He is currently taking enteric-coated aspirin 81 mg daily Plavix and eloquent this. He was seen by Dr. Rabago approximately 10:30 this morning and started on Zoloft and his dose of losartan was increased. His girlfriend reports that he did take the Zoloft earlier this afternoon. Patient was taken directly to CT upon EMS arrival to the emergency department. Timing/Duration: unknown Severity: mild Associated Symptoms: confusion, numbness in legs/feet (right sided), paresthesia (right-sided), No seizures, slurred speech, tingling in legs/feet, trouble walking, vision changes, weakness (right-sided), other (right-sided facial drooping) Allergies and Home Medications Allergies Coded Allergies: penicillin G (Verified Allergy, Severe, SWELLING, 12/23/11) Home Medications Amlodipine Besylate 10 Mg Tablet, 10 MG PO DAILY, (Reported) Apixaban 5 Mg Tablet, 5 MG PO BID, #60 Ref 1 Prescribed by: ELZA MONET on 01/21/17 1417 Bupropion HCl 150 Mg Tablet.er, 150 MG PO BID, (Reported) Clopidogrel Bisulfate 75 Mg Tablet, 75 MG PO HS, (Reported) Isosorbide Mononitrate 60 Mg Tab, 60 MG PO DAILY, (Reported) Losartan Potassium 50 Mg Tablet, 50 MG PO DAILY, (Reported) Nitroglycerin 0.4 Mg Tab.subl, 0.4 MG SL UD PRN for CHEST PAIN, (Reported) PLACE 1 TAB UNDER TONGUE NEEDED FOR CHEST PAIN; IF PAIN REMAINS AFTER 5 MINUTES, CALL 911 [place]-3 Fatty Acids/Fish Oil 1 Each Capsule, 1,000 MG PO BID, (Reported) Constitutional: no symptoms reported, see HPI Past Wxeulmn-Wtjtxw-Svdawm Hx Patient Social History Alcohol Use: Past History Recreational Drug Use: No Smoking Status: Current Everyday Smoker Type Used: Cigarettes 2nd Hand Smoke Exposure: Yes Recent Foreign Travel: No Contact w/Someone Who Travel: No Recent Infectious Disease Expo: No Recent Hopitalizations: No Immunizations Up To Date Tetanus Booster (TDap): Less than 5yrs PED Vaccines UTD: No Date of Influenza Vaccine: Dec 28, 2014 Seasonal Allergies Seasonal Allergies: No Surgeries HX Surgeries: Yes (hernia) Surgeries: Abdominal, Coronary Stent, Orthopedic Respiratory Hx Respiratory Disorders: No Cardiovascular Hx Cardiac Disorders: Yes (CARDIAC STENTS) Cardiac Disorders: Coronary Artery Disease, Deep Vein Thrombosis, Heart Attack , High Cholesterol, Hypertension Neurological Hx Neurological Disorders: Yes (MINI STROKES-SEVERAL) Neurological Disorders: Stroke, TIA Reproductive System Hx Reproductive Disorders: No Sexually Transmitted Disease: No Genitourinary Hx Genitourinary Disorders: No Gastrointestinal Hx Gastrointestinal Disorders: Yes Gastrointestinal Disorders: Gastroesophageal Reflux, Hiatal Hernia, Ulcer Musculoskeletal Hx Musculoskeletal Disorders: No Endocrine Hx Endocrine Disorders: No HEENT HX ENT Disorders: No Loss of Vision: Denies Cancer Hx Cancer: No Psychosocial Hx Psychiatric Problems: No Behavioral Health Disorders: Depression Integumentary HX Skin/Integumentary Disorder: No Blood Transfusions Hx Blood Disorders: No Adverse Reaction to a Blood Tr: No Family Medical History Significant Family History: Heart Disease, Hypertension Family Medial History: Arthritis 19 MOTHER APRON TRIMMER G8 SISTER FH: COPD (chronic obstructive pulmonary disease) Hypercholesterolemia 19 MOTHER Hypertension 19 MOTHER Physical Exam Vital Signs Vital Sign - Last 12Hours 01/28/17 19:20 Temp 98.2 Pulse 95 Resp 14 B/P (MAP) 188/94 Pulse Ox 97 O2 Delivery Room Air Capillary Refill : Less Than 3 Seconds General Appearance: WD/WN, mild distress HEENT: TMs normal, other (gag reflex absent, patient to be kept nothing by mouth on aspiration precautions. Right pupil sluggish, left pupil reactive to light) Neck: non-tender, full range of motion, supple, normal inspection Respiratory: chest non-tender, lungs clear, normal breath sounds Cardiovascular: normal peripheral pulses, regular rate, rhythm Peripheral Pulses: 1+ Dorsalis Pedis (R), 1+ Left Dors-Pedis (L), 1+ Radial Pulses (R), 1+ Radial Pulses (L) Gastrointestinal: normal bowel sounds, non tender, soft Back: normal inspection, no CVA tenderness, no vertebral tenderness Extremities: normal range of motion (passively all range of motion, active range of motion right extremities intact and able to resist gravity but not pressure. Unable to perform any active range of motion left extremities), non- tender, normal capillary refill, pelvis stable Neurologic/Psychiatric: no motor/sensory deficits, aphasia, facial droop (on the right), motor weakness (right sided upper and lower extremities), sensory deficit, disoriented x 3 (oriented to person only) Crainal Nerves: normal hearing, abnormal speech (slurred), facial asymmetry, facial droop, facial paresthesias, facial weakness Motor/Sensory: sensory deficit, weak motor strength RUE, weak motor strength RLE Skin: normal color, warm/dry Lymphatic: no adenopathy Stroke Onset of Symptoms Symptoms onset unknown: Yes NIH Stroke Scale Assessment Select: Post CT Level of Consciousness: 2=By repeated stimulation (2), Level of Consciousness-Questions: 1=Answers one question (1), LOC Commands: 1= Performs one task (1), Gaze: Partial Gaze Palsy (1), Visual Rodriguez: 1=Partial hemianopia (1), Facial Movement (Facial Paresis): 2=Partial paralysis (2), Motor Function-Arms Right: 4=No movement (4), Motor Function-Arms Left: 1=Drift (1), Motor Function-Legs Right: 4=No movement (4), Motor Function-Legs Left: 1= Drift (1), Limb Ataxia: 1=Present in one limb (1), Sensory: 1=Mild to Moderate loss (1), Best Language: 1=Mild to moderat aphasia (1), Dysarthria: 1=Mild to moderate loss (1), Extinction & Inattention: 1=Visual,tactile,auditory (1), Total: 23 Progress/Results/Core Measures Results/Orders Lab Results Laboratory Tests Test 01/28/17 19:11 01/28/17 19:29 Range/Units White Blood Count 7.9 4.3-11.0 10^3/uL Red Blood Count 4.42 4.35-5.85 10^6/uL Hemoglobin 14.1 13.3-17.7 G/DL Hematocrit 41 40-54 % Mean Corpuscular Volume 92 80-99 FL Mean Corpuscular Hemoglobin 32 25-34 PG Mean Corpuscular Hemoglobin Concent 35 32-36 G/DL Red Cell Distribution Width 12.7 10.0-14.5 % Platelet Count 458 H 130-400 10^3/uL Mean Platelet Volume 9.8 7.4-10.4 FL Neutrophils (%) (Auto) 53 42-75 % Lymphocytes (%) (Auto) 30 12-44 % Monocytes (%) (Auto) 11 0-12 % Eosinophils (%) (Auto) 6 0-10 % Basophils (%) (Auto) 1 0-10 % Neutrophils # (Auto) 4.1 1.8-7.8 X 10^3 Lymphocytes # (Auto) 2.3 1.0-4.0 X 10^3 Monocytes # (Auto) 0.9 0.0-1.0 X 10^3 Eosinophils # (Auto) 0.5 H 0.0-0.3 10^3/uL Basophils # (Auto) 0.0 0.0-0.1 10^3/uL Prothrombin Time 11.4 L 12.2-14.7 SEC INR Comment 0.9 0.8-1.4 Activated Partial Thromboplast Time 33 24-35 SEC D-Dimer 0.60 H 0.00-0.49 UG/ML Sodium Level 140 135-145 MMOL/L Potassium Level 4.9 3.6-5.0 MMOL/L Chloride Level 103 98-107 MMOL/L Carbon Dioxide Level 22 21-32 MMOL/L Anion Gap 15 H 5-14 MMOL/L Blood Urea Nitrogen 21 H 7-18 MG/DL Creatinine 1.31 H 0.60-1.30 MG/DL Estimat Glomerular Filtration Rate 57 BUN/Creatinine Ratio 16 Glucose Level 117 H 70-105 MG/DL Calcium Level 9.9 8.5-10.1 MG/DL Total Bilirubin 0.2 0.1-1.0 MG/DL Aspartate Amino Transf (AST/SGOT) 35 H 5-34 U/L Alanine Aminotransferase (ALT/SGPT) 77 H 0-55 U/L Alkaline Phosphatase 245 H 40-136 U/L Troponin I < 0.30 <0.30 NG/ML Total Protein 9.7 H 6.4-8.2 GM/DL Albumin 4.3 3.2-4.5 GM/DL Acetaminophen Level < 10 L 10-30 UG/ML Serum Alcohol < 10 <10 MG/DL Urine Color YELLOW Urine Clarity SLIGHTLY CLOUDY Urine pH 5 5-9 Urine Specific Sheldon 1.020 1.016-1.022 Urine Protein 2+ H NEGATIVE Urine Glucose (UA) NEGATIVE NEGATIVE Urine Ketones NEGATIVE NEGATIVE Urine Nitrite NEGATIVE NEGATIVE Urine Bilirubin NEGATIVE NEGATIVE Urine Urobilinogen NORMAL NORMAL MG/DL Urine Leukocyte Esterase 2+ H NEGATIVE Urine RBC (Auto) 5+ H NEGATIVE Urine RBC TNTC H /HPF Urine WBC 5-10 H /HPF Urine Crystals NONE /LPF Urine Bacteria NEGATIVE /HPF Urine Casts NONE /LPF Urine Mucus NEGATIVE /LPF Urine Culture Indicated YES Urine Opiates Screen POSITIVE H NEGATIVE Urine Oxycodone Screen NEGATIVE NEGATIVE Urine Methadone Screen NEGATIVE NEGATIVE Urine Propoxyphene Screen NEGATIVE NEGATIVE Urine Barbiturates Screen NEGATIVE NEGATIVE Ur Tricyclic Antidepressants Screen NEGATIVE NEGATIVE Urine Phencyclidine Screen NEGATIVE NEGATIVE Urine Amphetamines Screen NEGATIVE NEGATIVE Urine Methamphetamines Screen NEGATIVE NEGATIVE Urine Benzodiazepines Screen NEGATIVE NEGATIVE Urine Cocaine Screen NEGATIVE NEGATIVE Urine Cannabinoids Screen NEGATIVE NEGATIVE My Orders Orders - NILDA BONE Ondansetron Injection (Zofran Injectio (01/28/17 20:00) Saline Lock/Iv-Start (01/28/17 19:54) Ns Iv 1000 Ml (Sodium Chloride 0.9%) (01/28/17 19:54) Drug Screen Stat (Urine) (01/28/17 19:57) Acetaminophen (01/28/17 20:00) Alcohol (01/28/17 20:00) Medications Given in ED Current Medications Medications Dose Ordered Sig/Mckenzie Route Start Time Stop Time Status Last Admin Dose Admin Ondansetron HCl 4 mg ONCE ONCE IVP 01/28/17 20:00 01/28/17 20:01 DC 01/28/17 20:00 4 MG Sodium Chloride 1,000 ml @ 150 mls/hr Q6H40M ONCE IV 01/28/17 19:54 01/29/17 02:33 01/28/17 20:00 150 MLS/HR Vital Signs/I&O Vital Sign - Last 12Hours 01/28/17 01/28/17 19:20 19:20 Temp 98.2 Pulse 95 Resp 14 B/P (MAP) 188/94 Pulse Ox 97 O2 Delivery Room Air Blood Pressure Mean: 125 Progress Note : Time: 19:05 Progress Note Initial evaluation completed as patient was transported to CT. Patient able to state his name with a very slurred speech. Unable to tell us the date, year or his current location. Noted drooping on the right side. Initial CT showed no acute abnormalities. 1919 patient was brought to the emergency department his initial NIH score was 23. The patient's initial evaluation was completed with Dr. Falk who concurred with the assessment and treatment plan. Due to the extended timing and girlfriend reporting his last normal timing being approximately [id number], the patient would not be a candidate for TPA (and with the patient on aspirin, Eliquist and Plavix). 1934 NIH score 15. Patient able to state his name, year and location correctly. He is able to follow simple commands. He has full strength against gravity and resistance on the left extremities, he has minimal to no active motion in the right upper or lower extremity. Patient has no sensory function on the right upper or lower extremity. The patient is complaining of nausea, Zofran 4 mg IV. Cannot elicit a gag reflex 1999 patient has improved function in the right upper extremity network cabler strengths are now symmetric right to left, he can tape his right arm elevated when it is raised, but he is unable to lift his right lower extremity. He does have normal sensation in the right upper and lower extremity to light touch. 2030 the patient has improved motor function and sensory function in the right upper and lower extremity, he can actively elevate and resist pressure in the right upper and lower extremity. He still has limited mobility in the right ankle and the right toes. Discussed with the patient the plan to consult Dr. Rabago for admission orders, the patient agreed with this. All labs, EKG chest x-ray and CT are essentially normal. Gag reflex present on the right and left. Patient's full assessment and treatment plan were discussed with Dr. Falk who concurred. [address] Rabago the patient's admitting assessment and progressive improvement. Agreed with recommendation for observation with consults by Drs. Lao and Jayesh tomorrow. ECG Initial ECG Impression Date: Jan 28, 2017 Initial ECG Impression Time: 19:25 Initial ECG Rate: 98 Initial ECG Rhythm: Normal Sinus Initial ECG Intervals: Normal Initial ECG Intervals WI 136, QRSD 84, QT 348, QTc 445. Proctor P 6, QRS 52, T 43 Initial ECG Impression: Normal Initial ECG Comparisson: Unchanged Comment Reviewed with Dr. Falk, concurred with the interpretation. Diagnostic Imaging Diagonstic Imaging: CT Plain Films/CT/US/NM/MRI: head Comments NAME: EZEQUIEL VITALE [facility] REC#: [id number] PT STATUS: REG ER : 1960 PHYSICIAN: ANGUS FALK MD ADMIT DATE: 01/28/17/ER Signed Date of Exam: 01/28/17 CT HEAD WO-R/O STROKE INDICATION: STROKE. COMPARISON: 01/20/17. EXAMINATION: CT of the head without contrast. FINDINGS: The ventricles are normal in size, shape and position. There is no midline shift or mass effect. There is no focus of acute ischemia or hemorrhage. There is no midline shift or mass effect. No cerebral edema is identified. The bony calvarium, visualized paranasal sinuses and mastoids are normal. IMPRESSION: No acute intracranial abnormality. Stable CT head. No interval change. Dictated by: Dictated on workstation # [id number] Dict: 01/28/171918 Trans: 01/28/171923 Interpreted by: ROSETTA MEJIA Electronically signed by: ROSETTA MEJIA 01/28/171923 Reviewed: Reviewed by Or Diagonstic Imaging: Xray Plain Films/CT/US/NM/MRI: chest Comments NAME: EZEQUIEL VITALE [facility] REC#: [id number] PT STATUS: REG ER : 1960 PHYSICIAN: ANGUS FALK MD ADMIT DATE: 01/28/17/ER Draft Date of Exam:01/28/17 CHEST 1 VIEW, AP/PA ONLY INDICATION: Stroke protocol COMPARISON: 01/20/2017 FINDINGS: Single frontal view of the chest demonstrates normal heart size and pulmonary vascularity. The lungs are well aerated and clear. No large pleural effusion or pneumothorax is seen. The visualized osseous structures show no acute abnormalities. IMPRESSION: 1. No acute cardiopulmonary process. Dictated on workstation # [id number] Dict: 01/28/171948 Trans: 01/28/171950 ADDISON [id number] Interpreted by: CARMEN LEONARD Electronically signed by: Reviewed: Reviewed by Me Departure Impression Impression: Primary Impression: Transient global amnesia Additional Impressions: Right sided weakness Coronary artery disease Qualified Codes: I25.10 - Atherosclerotic heart disease of [place] coronary artery without angina pectoris Hypertension Qualified Codes: I10 - Essential (primary) hypertension Disposition: ADMITTED INPATIENT Condition: Improved Admissions Decision to Admit Reason: Admit from ER (General) Decision to Admit/Date: Jan 28, 2017 Time/Decision to Admit Time: 21:00 Departure-Patient Inst. Referrals: ANDRES RABAGO DO (PCP/Family) Primary Care Physician Copy Copies To 1: ANDRES RABAGO DO Copies To 2: ANDREA LAO MD; KEVIN BLACKMON AMY ARNP Jan 28, 2017 19:42
--- NOTE | 2017-01-28 19:51 | Diagnostic Imaging Report ---
INDICATION: Stroke protocol COMPARISON: 01/20/2017 FINDINGS: Single frontal view of the chest demonstrates normal heart size and pulmonary vascularity. The lungs are well aerated and clear. No large pleural effusion or pneumothorax is seen. The visualized osseous structures show no acute abnormalities. IMPRESSION: 1. No acute cardiopulmonary process. Dictated by: Dictated on workstation # [id number]
[2017-01-28] MEDS ORDERED: NS IV 1000 ML 1,000 ML IV ONE (19:54)
[2017-01-28] MEDS ORDERED: ONDANSETRON 4 MG/2 ML (SDV) Z0FRAN IVP ONE (20:00)
[2017-01-28 20:18] LABS: ACETAMINOPHEN < 10 UG/ML (10-30); ALCOHOL < 10 MG/DL (<10)
--- OUTSIDE RECORDS SUMMARY | 2017-01-28 21:21 | XMS REPORT | Clinical Summary ---
Author Author [facility] Organization [facility] Address Unknown Phone Unavailable Care Team Providers Care Consultant Education Name Role Phone PCP Unavailable Source Comments Some departments are not documenting in the electronic medical record. If you do not see the information that you expected, contact Release of Information in the Health Information Management department at [phone] for further assistance in locating additional records.[facility] Allergies Active Allergy Reactions Severity Noted [...] for Chest Pain. Max of 3 of [place] artery of tablets, call 911. [place] heart with stable angina pectoris (HCC), Essential [...] 01/14/2017 Dysphagia 01/14/2017 GERI (acute kidney injury) ([facility]) 01/13/2017 Unstable angina ([facility]) 08/13/2016 Coronary artery disease of [place] artery of [place] heart with stable angina 08/09/2016 pectoris ([facility]) Overview: 07/29/16: heart cath ([place], [place]) - total occlusion of the right [...] Date Type Specialty Care Team Description 01/12/2017 [facility] Neurosurgery Julianna Baer Weakness - [...] Specimen Performing Laboratory Blood MAIN LAB [address] [place] [address] * BASIC METABOLIC PANEL (01/14/2017 4:40 AM) [...] Performing Laboratory Blood [facility] [address] [place] [address] * SWALLOW MOTION SERIES (01/13/2017 8:48 AM) [...] Specimen Performing Laboratory [facility] [address] [place] [address] * MAGNESIUM (01/13/2017 3:50 AM) Only the most recent of 2 results within the time period is included. Component Value Ref Range Magnesium 1.8 1.6 - 2.6 mg/dL Specimen Performing Laboratory [facility] [address] [place] [address] * IONIZED CALCIUM (01/13/2017 3:50 AM) Only the most recent of 2 results within the time period is included. Component Value Ref Range Ionized Calcium 1.09 1.0 - 1.3 MMOL/L Specimen Performing Laboratory [facility] [address] [place] [address] * CTA CHEST WO/W CONTRAST+POST IMPRESSION (01/12/2017 [...] (PCP) 25 NG/ML Specimen Performing Laboratory Urine [facility] [address] [place] [address] * OPIATES-URINE RANDOM (01/12/2017 2:17 PM) Component Value Ref Range Opiates-Urine NEG NEG-NEG Comment: RESULTS WERE OBTAINED BY IMMUNOASSAY AND ARE PRESUMPTIVE ONLY. POSITIVE INDICATES THE PRESENCE OF SUBSTANCE WITH CHARACTERISTICS SIMILAR TO DRUG-DRUG CLASS OR METABOLITE IN CONC. EQUAL TO OR EXCEEDING VALUES LISTED. OPIATES 200 0 NG/ML Specimen Performing Laboratory Urine MAIN LAB [address] [place] [address]703 * COCAINE-URINE RANDOM (01/12/2017 2:17 PM) Component Value Ref Range Cocaine-Urine NEG NEG-NEG Comment: RESULTS WERE OBTAINED BY IMMUNOASSAY AND ARE PRESUMPTIVE ONLY. POSITIVE INDICATES THE PRESENCE OF SUBSTANCE WITH CHARACTERISTICS SIMILAR TO DRUG-DRUG CLASS OR METABOLITE IN CONC. EQUAL TO OR EXCEEDING VALUES LISTED. COCAINE 300 NG/ML Specimen Performing Laboratory Urine [facility] [address] [place] [address] * CANNABINOIDS-URINE RANDOM (01/12/2017 2:17 PM) Component Value Ref Range THC NEG NEG-NEG Comment: RESULTS WERE OBTAINED BY IMMUNOASSAY AND ARE PRESUMPTIVE ONLY. POSITIVE INDICATES THE PRESENCE OF SUBSTANCE WITH CHARACTERISTICS SIMILAR TO DRUG-DRUG CLASS OR METABOLITE IN CONC. EQUAL TO OR EXCEEDING VALUES LISTED. CANNABINOIDS 50 NG/ML Specimen Performing Laboratory Urine [facility] [address] [place] [address] * BENZODIAZEPINES-URINE RANDOM (01/12/2017 2:17 PM) Component Value Ref Range Benzodiazepines NEG NEG-NEG Comment: RESULTS WERE OBTAINED BY IMMUNOASSAY AND ARE PRESUMPTIVE ONLY. POSITIVE INDICATES THE PRESENCE OF SUBSTANCE WITH CHARACTERISTICS SIMILAR TO DRUG-DRUG CLASS OR METABOLITE IN CONC. EQUAL TO OR EXCEEDING VALUES LISTED. BENZODIAZEPINES 200 NG/ML Specimen Performing Laboratory Urine MAIN LAB [address] [place] [address] * BARBITURATES-URINE RANDOM (01/12/2017 2:17 PM) Component Value Ref Range Barbiturates,Urine NEG NEG-NEG Comment: RESULTS WERE OBTAINED BY IMMUNOASSAY AND ARE PRESUMPTIVE ONLY. POSITIVE INDICATES THE PRESENCE OF SUBSTANCE WITH CHARACTERISTICS SIMILAR TO DRUG-DRUG CLASS OR METABOLITE IN CONC. EQUAL TO OR EXCEEDING VALUES LISTED. BARBITURATES 200 NG/ML Specimen Performing Laboratory Urine MAIN LAB [address] [place] [address] * AMPHETAMINES-URINE RANDOM (01/12/2017 2:17 PM) Component Value Ref Range Amphetamines NEG NEG-NEG Comment: RESULTS WERE OBTAINED BY IMMUNOASSAY AND ARE PRESUMPTIVE ONLY. POSITIVE INDICATES THE PRESENCE OF SUBSTANCE WITH CHARACTERISTICS SIMILAR TO DRUG-DRUG CLASS OR METABOLITE IN CONC. EQUAL TO OR EXCEEDING VALUES LISTED. AMPHETAMINES 1000 NG/ML Specimen Performing Laboratory Urine MAIN LAB [address] [place] [address] * MRI HEAD WO/W CONTRAST (01/12/2017 1:36 [...] 1.24 MG/DL Specimen Performing Laboratory MAIN LAB [address] [place] [address] * TROPONIN-I (01/12/2017 11:48 AM) Only the most recent of 3 results within the time period is included. Component Value Ref Range Troponin-I 0.01 0.0 - 0.05 NG/ML Specimen Performing Laboratory Blood MAIN LAB [address] [place] [address] * LIPID PROFILE (01/12/2017 11:48 AM) Component [...] Specimen Performing Laboratory Blood MAIN [facility] [address] [place] [address] * 2-D + DOPPLER ECHOCARDIOGRAM (01/12/2017 8:54 AM) Component Value Ref Range BSA 1.86 m2 Referring Provider Dexter Hernandes CV ECHO PV ANNEALER HELPER Floor RN LVIDD 3.3 4.2 - 5.9 [...] Performing Laboratory [facility] [address] [place] [address] * CBC AND DIFF (01/12/2017 7:34 AM) [...] Performing Laboratory [facility] [address] [place] [address] * HEMOGLOBIN A1C (01/12/2017 7:34 AM) Component Value Ref Range Hemoglobin A1C 5.5 4.0 - 6.0 % Comment: The ADA recommends that most patients with type 1 and type 2 diabetes maintain an A1c level <7%. Specimen Performing Laboratory [facility] [address] [place] [address] * CT BRAIN PERF (01/12/2017 7:25 AM) [...] stenosis. There is origin of the right REAL ESTATE LEASING AGENT. The anterior, middle, and posterior cerebral arteries [...] stenosis. There is origin of the right REAL ESTATE LEASING AGENT. The anterior, middle, and posterior cerebral arteries [...] stenosis. There is origin of the right REAL ESTATE LEASING AGENT. The anterior, middle, and posterior cerebral arteries [...] stenosis. There is origin of the right REAL ESTATE LEASING AGENT. The anterior, middle, and posterior cerebral arteries [...] stenosis. There is origin of the right REAL ESTATE LEASING AGENT. The anterior, middle, and posterior cerebral arteries [...] stenosis. There is origin of the right REAL ESTATE LEASING AGENT. The anterior, middle, and posterior cerebral arteries [...]
--- OUTSIDE RECORDS SUMMARY | 2017-01-28 21:22 | XMS REPORT | Encounter Summary ---
Author Author [facility] Organization [facility] Address Unknown Phone Unavailable Care Team Providers Care Hydrometeorological Technician Name Role Phone PCP Unavailable Encounter Details Date Type Department Care Team Description 01/12/2017 Procedure Pass Neuroscience & ENT ICU [address] [place] [address] Social History Tobacco Use Types [...]
--- OUTSIDE RECORDS SUMMARY | 2017-01-28 21:22 | XMS REPORT | Encounter Summary ---
Author Author [facility] Organization [facility] Address Unknown Phone Unavailable Care Team Providers Care Logistics Support Name Role Phone PCP Unavailable Encounter Details Date Type Department Care Team Description 01/12/2017 Hospital [facility] Encounter Hospital Radiology [address] [place], [place] [id number] Social History Tobacco Use Types Packs/Day Years [...] for Chest Pain. Max of 3 of chitimacha artery of tablets, call 911. chitimacha heart with stable angina pectoris (HCC), Essential [...]
--- OUTSIDE RECORDS SUMMARY | 2017-01-28 21:22 | XMS REPORT | Encounter Summary ---
Author Author [facility] Organization [facility] Address Unknown Phone Unavailable Care Team Providers Care Gas Line Servicer Name Role Phone PCP Unavailable Encounter Details Date Type Department Care Team Description 01/12/2017 Hospital [facility] Encounter Hospital Radiology [address] [place], [place] [id number] Social History Tobacco Use Types Packs/Day Years [...] for Chest Pain. Max of 3 of table mountain artery of tablets, call 911. table mountain heart with stable angina pectoris (HCC), Essential [...]
--- OUTSIDE RECORDS SUMMARY | 2017-01-28 21:22 | XMS REPORT | Encounter Summary ---
Author Author [facility] Organization [facility] Address Unknown Phone Unavailable Care Team Providers Care Food Taster Name Role Phone PCP Unavailable Encounter Details Date Type Department Care Team Description 01/12/2017 Hospital Neuroscience & ENT ICU Julianna Baer, [place] - Encounter [id number] 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 He was initially presented to the [place], [place] ED with chest pain. 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 Your last blood pressure was BP: 164/84, [...] cause. Return Appointment For Neurology scheduling contact [phone] For Neurosurgery appointments call [phone] Questions About Your Stay STANDARD For questions or concerns regarding your hospital stay: -DURING BUSINESS HOURS (8:00 AM - 4:30 PM): Call [phone] and ask to be transferred to your discharge attending physician. -AFTER BUSINESS HOURS (4:30 PM - 8:00 AM, on weekends, or holidays): Call [phone] and ask the boom cat operator to page the on-call doctor for the discharge attending physician. Discharging attending physician: GIRISH TELLEZ [[id number]] Low Fat / Low Cholesterol Diet Your goal is to limit the amount of saturated and trans fats in your diet. Keep track of how much cholesterol you eat and limit the total amount to 200mg ( milligrams) a day. If you have questions about your diet after you go home, you can call a dietitian at [phone]. 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 Max of 3 of nightmute artery of tablets, call 911. 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 He was initially presented to the [place], [place] ED with chest pain. He had [...] 5.5 - ECHO unremarkable. Plan: - Resumed CLOTH MERCERIZING SUPERVISOR ASA and Plavix - Started on Simvastatin [...] Counseled to quit drugs - Cleared by PT/OT/CHEMICAL PUMPER/Rehab - s/p video swallow, now cleared by speech. Bradycaria - Cardiology consulted and following for bradycardia, . > CLOTH MERCERIZING SUPERVISOR BB held per cardiology HTN > restarted [...] his R side. He reports eating a [employer] breakfast sandwich this morning without difficulty. He [...] for: PHART, PCO2A, PO2ART, HCO3A, BASEEXA, BASEDEFA, [id number] Lab Results Component Value Date HGB 12.1 [...] 0.9 01/12/2017 No results found for: TSH, CHTMU4D, CORTRAN Lab Results Component Value Date CHOL 231 (H) 01/12/2017 TRIG 216 (H) 01/12/2017 HDL 35 (L) 01/12/2017 LDL 152 (H) 01/12/2017 VLDL 43 01/12/2017 No results found for: VANRAN, VANPK, VANTR No results found for: CYCLOSPOR, TACROLIMUS, FREEPHENY Point of Care Testing: (Last 24 hours): Glucose: (!) 106 Radiology and Other Diagnostics Review: reviewed Sen Monterroso Neurology Resident PGY 2 Pager [phone] * Aye Hall MS,CCC-CHEMICAL PUMPER - 01/14/2017 11:45 AM CDT SPEECH-LANGUAGE PATHOLOGY NO TREATMENT NOTE Chart reviewed and made contact with RN. Pt tolerating diet and PO meds well with no overt s/s aspiration. Speech, swallow, cognition appear to have returned to baseline. Do not anticipate ongoing CHEMICAL PUMPER needs. Therapist: Aye Hall MS,CCC-CHEMICAL PUMPER [phone] Date: 01/14/2017 * Albania Díaz MD - 01/13/2017 2:51 PM CDT Formatting of this note may be different from the original. 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 No evidence of recent CO. -- Sinus rhythm today. Normal AV conduction. [...] page with questions. After 5PM please call location analyst configuration management specialist. Tuesday - Tuesday 8AM-5PM please call Cardiology consult pager. Pt was seen and discussed with Dr. Charlie MD. Albania Díaz MD PGY-1 Internal Medicine Pager [phone] __ Subjective: Kaz Restrepo is a 56 [...] carvedilol. 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 Also possible [...] Mr. Restrepo has no history of recent CO, LV dysfunction, or heart failure. Lipid profile [...] if we may assist. Catrachito Guerra M.D. 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 male with h/o HTN, HLD, Substance abuse, tobacco use , CAD s/p stents presented with right sided weakness, right facial droop and apahsia. He was initially presented to the [place], [place] ED with chest pain. He had [...] 5.5 - ECHO unremarkable. Plan: - Resumed CLOTH MERCERIZING SUPERVISOR ASA and Plavix - Started on Simvastatin 40 in ICU. - Continue PT/OT/CHEMICAL PUMPER/Rehab - s/p video swallow - on mechanical [...] for: PHART, PCO2A, PO2ART, HCO3A, BASEEXA, BASEDEFA, [id number] Lab Results Component Value Date HGB 12.4 [...] 0.9 01/12/2017 No results found for: TSH, EGBDN3V, CORTRAN Lab Results Component Value Date CHOL 231 (H) 01/12/2017 TRIG 216 (H) 01/12/2017 HDL 35 (L) 01/12/2017 LDL 152 (H) 01/12/2017 VLDL 43 01/12/2017 No results found for: VANRAN, SHERRYPK, VANTR No results found for: CYCLOSPOR, TACROLIMUS, FREEPHENY Point of Care Testing: (Last 24 hours): Glucose: 90 Radiology and Other Diagnostics Review: reviewed Nataliya Barajas MD, MPH Neurology Resident PGY 4 Pager [phone] * Yair Pisano MD - 01/13/2017 11:27 [...] angina (HCC) 08/13/2016 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 male. Overnight Events: Significant event: asymptomatic bradycardia, sign out obtained from overnight stocker person ( nurse and [facility] physician). Patient examined: yes Objective: [...] optimize venous drainage Maintain normothermia, avoid hypoxemia, [place] appropriate osmotherapy ( i.e mannitol vs Hypertonic [...] CAD s/p stenting -asa and clopidogrel, restart CLOTH MERCERIZING SUPERVISOR Imdur and losartan; 5) Chest Pain - [...] at risk for aspiration. Social work and bilingual case manager for discharge planning and placement. Family Meeting and update: yes. Patient is able to make his or her decisions, family updated during rounds. Goals of therapy: Addressed, Patient is a full code Nurses concerns addressed. Disposition/Family: Transfer to neurology service X Yair G. Norris, MD Protector Plate Attacher, Department of Neurology and Neurosurgery Pager: [phone] Date: 01/13/2017 X * Mai Pedersen, OT - 01/13/2017 11:13 AM CDT Formatting of this note may be different from the original. 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 Neurologically improved when compared with description [...] Patient Response: Verbalized Understanding Therapist: Aye Hall MS,CCC-CHEMICAL PUMPER [phone] Date: 01/13/2017 * Zully Castelan APRN-POLYGRAPH EXAMINER - 01/13/2017 6:29 AM CDT Formatting of this note may be different from the original. 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) 08/09/2016 07/29/16: heart cath ([place] [place], [place]) - total occlusion of the right [...] Plan: - LDL 152, goal < 70- CLOTH MERCERIZING SUPERVISOR crestor increased to 20mg today - A1C 5.5 - ASA 81 and Plavix 75mg daily- resume today - PT/OT/CHEMICAL PUMPER/Rehab consulted Cardiac: hx of HTN, CAD, HLD, chest pain, bradycardia Echo 01/12: EF 65%, mild LVH, no shunt/thrombus CTA chest 01/12: negative for PE - cards consulted, appreciate recs - continue holding CLOTH MERCERIZING SUPERVISOR coreg 12.5mg QD - will restart imdur 60mg daily today, consider restarting losartan 50mg daily if needed for BP control - SBP goal: <160 - MAP goal > 65 - crestor daily Respiratory: H/o tobacco abuse - smoking cessation - Stable on room air - Spo2 goal >95% GI: H/O GERD, Dysphagia - Feeding: regular diet - CHEMICAL PUMPER following- video swallow negative for aspiration, diet [...] radiologic and diagnostic procedures reviewed. Zully Castelan, SETTER JUICE PACKAGING MACHINES-POLYGRAPH EXAMINER Date: 01/13/[phone] I spent 45 minutes managing the care [...] Resource RN during scan. * Aye Hall, MS,CCC-CHEMICAL PUMPER - 01/12/2017 11:11 AM CDT SPEECH-LANGUAGE PATHOLOGY [...] risk of aspirating bacteria in oral secretions CHEMICAL PUMPER will follow for dysphagia and dysarthria management. [...] free from respiratory status changes. Therapist:Aye Hall MS,CCC-CHEMICAL PUMPER [phone] Date:01/12/2017 * Marie Monroe, RT - [...] Date: 01/12/2017 [place] AC=Airway clearance AM=Aerosolized medication BA=[place] aerosol DB&C=Deep breathe & cough FEV1=Forced expiratory volume in first second) IC=Inspiratory capacity LE=Lung expansion MDI=Metered dose inhaler Neb=Nebulizer O2=Oxygen Oxim=Oximetry PEFR=Peak expiratory flow rate RETAIL ADVERTISING ACCOUNT EXECUTIVE=Rapid Response Team in this encounter Plan of [...] Performing Laboratory [facility] [address] [place] [address] * BASIC METABOLIC PANEL (01/14/2017 4:40 AM) [...] Performing Laboratory [facility] [address] [place] [address] * SWALLOW MOTION SERIES (01/13/2017 8:48 AM) [...] Specimen Performing Laboratory [facility] [address] [place] [address] * BASIC METABOLIC PANEL (01/13/2017 3:50 AM) [...] Specimen Performing Laboratory [facility] [address] [place] [address] * IONIZED CALCIUM (01/13/2017 3:50 AM) Component Value Ref Range Ionized Calcium 1.09 1.0 - 1.3 MMOL/L Specimen Performing Laboratory [facility] [address] [place] [address] * PHOSPHORUS (01/13/2017 3:50 AM) Component Value Ref Range Phosphorus 3.2 2.0 - 4.0 MG/DL Specimen Performing Laboratory [facility] [address] [place] [address] * MAGNESIUM (01/13/2017 3:50 AM) Component Value Ref Range Magnesium 1.8 1.6 - 2.6 mg/dL Specimen Performing Laboratory [facility] [address] [place] [address] * CTA CHEST WO/W CONTRAST+POST IMPRESSION (01/12/2017 [...] (PCP) 25 NG/ML Specimen Performing Laboratory Urine [facility] [address] [place] [address] * OPIATES-URINE RANDOM (01/12/2017 2:17 PM) Component Value Ref Range Opiates-Urine NEG NEG-NEG Comment: RESULTS WERE OBTAINED BY IMMUNOASSAY AND ARE PRESUMPTIVE ONLY. POSITIVE INDICATES THE PRESENCE OF SUBSTANCE WITH CHARACTERISTICS SIMILAR TO DRUG-DRUG CLASS OR METABOLITE IN CONC. EQUAL TO OR EXCEEDING VALUES LISTED. OPIATES 200 0 NG/ML Specimen Performing Laboratory Urine [facility] [address] [place] [address] * COCAINE-URINE RANDOM (01/12/2017 2:17 PM) Component Value Ref Range Cocaine-Urine NEG NEG-NEG Comment: RESULTS WERE OBTAINED BY IMMUNOASSAY AND ARE PRESUMPTIVE ONLY. POSITIVE INDICATES THE PRESENCE OF SUBSTANCE WITH CHARACTERISTICS SIMILAR TO DRUG-DRUG CLASS OR METABOLITE IN CONC. EQUAL TO OR EXCEEDING VALUES LISTED. COCAINE 300 NG/ML Specimen Performing Laboratory Urine [facility] [address] [place] [address] * CANNABINOIDS-URINE RANDOM (01/12/2017 2:17 PM) Component Value Ref Range THC NEG NEG-NEG Comment: RESULTS WERE OBTAINED BY IMMUNOASSAY AND ARE PRESUMPTIVE ONLY. POSITIVE INDICATES THE PRESENCE OF SUBSTANCE WITH CHARACTERISTICS SIMILAR TO DRUG-DRUG CLASS OR METABOLITE IN CONC. EQUAL TO OR EXCEEDING VALUES LISTED. CANNABINOIDS 50 NG/ML Specimen Performing Laboratory U[facility] [address] [place] [address] * BENZODIAZEPINES-URINE RANDOM (01/12/2017 2:17 PM) Component Value Ref Range Benzodiazepines NEG NEG-NEG Comment: RESULTS WERE OBTAINED BY IMMUNOASSAY AND ARE PRESUMPTIVE ONLY. POSITIVE INDICATES THE PRESENCE OF SUBSTANCE WITH CHARACTERISTICS SIMILAR TO DRUG-DRUG CLASS OR METABOLITE IN CONC. EQUAL TO OR EXCEEDING VALUES LISTED. BENZODIAZEPINES 200 NG/ML Specimen Performing Laboratory [facility] [address] [place] [address] * BARBITURATES-URINE RANDOM (01/12/2017 2:17 PM) Component Value Ref Range Barbiturates,Urine NEG NEG-NEG Comment: RESULTS WERE OBTAINED BY IMMUNOASSAY AND ARE PRESUMPTIVE ONLY. POSITIVE INDICATES THE PRESENCE OF SUBSTANCE WITH CHARACTERISTICS SIMILAR TO DRUG-DRUG CLASS OR METABOLITE IN CONC. EQUAL TO OR EXCEEDING VALUES LISTED. BARBITURATES 200 NG/ML Specimen Performing Laboratory Urine [facility] [address] [place] [address] * AMPHETAMINES-URINE RANDOM (01/12/2017 2:17 PM) Component Value Ref Range Amphetamines NEG NEG-NEG Comment: RESULTS WERE OBTAINED BY IMMUNOASSAY AND ARE PRESUMPTIVE ONLY. POSITIVE INDICATES THE PRESENCE OF SUBSTANCE WITH CHARACTERISTICS SIMILAR TO DRUG-DRUG CLASS OR METABOLITE IN CONC. EQUAL TO OR EXCEEDING VALUES LISTED. AMPHETAMINES 1000 NG/ML Specimen Performing Laboratory [facility] [address] [place] [address] * MRI HEAD WO/W CONTRAST (01/12/2017 1:36 [...] MG/DL Specimen Performing Laboratory MAIN LAB [address] [place] [address] * BASIC METABOLIC PANEL (01/12/2017 11:48 AM) [...] questions. Specimen Performing Laboratory MAIN LAB [address] [place] [address] * LIPID PROFILE (01/12/2017 11:48 AM) Component [...] Specimen Performing Laboratory [facility] [address] [place] [address] * TROPONIN-I (01/12/2017 11:48 AM) Component Value Ref Range Troponin-I 0.01 0.0 - 0.05 NG/ML Specimen Performing Laboratory [facility] [address] [place] [address] * TROPONIN-I (01/12/2017 9:39 AM) Component Value Ref Range Troponin-I 0.01 0.0 - 0.05 NG/ML Specimen Performing Laboratory [facility] [address] [place] [address] * 2-D + DOPPLER ECHOCARDIOGRAM (01/12/2017 8:54 AM) Component Value Ref Range BSA 1.86 m2 Referring Provider Dexter Hernandes CV ECHO PV RUG CLEANER HAND Floor RN LVIDD 3.3 4.2 - 5.9 [...] MMOL/L Specimen Performing Laboratory [facility] [address] [place] [address] * TROPONIN-I (01/12/2017 7:34 AM) Component Value Ref Range Troponin-I 0.01 0.0 - 0.05 NG/ML Specimen Performing Laboratory [facility] [address] [place], [place] [id number] * PHOSPHORUS (01/12/2017 7:34 AM) Component Value Ref Range Phosphorus 3.5 2.0 - 4.0 MG/DL Specimen Performing Laboratory [facility] [address] [place], [place] [id number] * MAGNESIUM (01/12/2017 7:34 AM) Component Value Ref Range Magnesium 1.8 1.6 - 2.6 mg/dL Specimen Performing Laboratory [facility] [address] [place], [place] [id number] * PROTIME INR (PT) (01/12/2017 7:34 AM) Component Value Ref Range INR 0.9 0.8 - 1.2 Specimen Performing Laboratory [facility] [address] [place], [place] [id number] * CBC AND DIFF (01/12/2017 7:34 AM) [...] Specimen Performing Laboratory [facility] [address] [place] [address] * HEMOGLOBIN A1C (01/12/2017 7:34 AM) Component Value Ref Range Hemoglobin A1C 5.5 4.0 - 6.0 % Comment: The ADA recommends that most patients with type 1 and type 2 diabetes maintain an A1c level <7%. Specimen Performing Laboratory [facility] [address] [place] [address] * CT BRAIN PERF (01/12/2017 7:25 AM) [...] stenosis. There is origin of the right PEST CONTROL SERVICE TECHNICIAN. The anterior, middle, and posterior cerebral arteries [...] stenosis. There is origin of the right PEST CONTROL SERVICE TECHNICIAN. The anterior, middle, and posterior cerebral arteries [...] stenosis. There is origin of the right PEST CONTROL SERVICE TECHNICIAN. The anterior, middle, and posterior cerebral arteries [...] stenosis. There is origin of the right PEST CONTROL SERVICE TECHNICIAN. The anterior, middle, and posterior cerebral arteries [...] at 7:52 AM on 2016. Approved by Catarchito Hansen M.D. on 01/12/2017 7:59 AM By [...] stenosis. There is origin of the right PEST CONTROL SERVICE TECHNICIAN. The anterior, middle, and posterior cerebral arteries [...] stenosis. There is origin of the right PEST CONTROL SERVICE TECHNICIAN. 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
--- OUTSIDE RECORDS SUMMARY | 2017-01-28 21:23 | XMS REPORT | Encounter Summary ---
Author Author [facility] Organization [facility] Address Unknown Phone Unavailable Care Team Providers Care Director Medical Writing Name Role Phone PCP Unavailable Encounter Details Date Type Department Care Team Description 01/12/2017 Procedure Pass Neuroscience & ENT ICU [address] [facility] [place] [address] Social History Tobacco Use Types [...]
--- OUTSIDE RECORDS SUMMARY | 2017-01-28 21:23 | XMS REPORT | Encounter Summary ---
Author Author [facility] Organization [facility] Address Unknown Phone Unavailable Care Team Providers Care Air Traffic Instructor Name Role Phone PCP Unavailable Encounter Details Date Type Department Care Team Description 01/12/2017 Procedure Pass Neuroscience & ENT ICU [address] [facility] [place] [address] Social History Tobacco Use Types [...]
--- OUTSIDE RECORDS SUMMARY | 2017-01-28 21:23 | XMS REPORT | Encounter Summary ---
Author Author [facility] Organization [facility] Address Unknown Phone Unavailable Care Team Providers Care Senior Sourcing Manager Name Role Phone PCP Unavailable Reason for Visit * Reason Comments Dizziness Encounter Details Date Type Department Care Team Description 11/16/2016 Telephone [facility] Cardiology Abigail Marie RN Dizziness [address] [facility] [address] [place], [place] [id number] Social History Tobacco Use Types Packs/Day Years [...]
--- OUTSIDE RECORDS SUMMARY | 2017-01-28 21:23 | XMS REPORT | Encounter Summary ---
Author Author [facility] Organization [facility] Address Unknown Phone Unavailable Care Team Providers Care System Software Programmer Name Role Phone PCP Unavailable Reason for Visit * Reason Comments New To Provider 6 mos hosp f/u PCI was done in hosp. Encounter Details Date Type Department Care Team Description 11/08/2016 Office Visit [facility] Sarah Camara PA-C New To Provider (6 mos [address] [place] [address] hosp f/u PCI was done in [facility] [address] hosp. ) [place] [address] [place] [address] [phone] David Singh MD [address] [address] [place] [address] [phone] Social History Tobacco Use Types Packs/Day Years [...] this encounter Instructions * Patient Instructions - BernardoJesMANUEL castorena - 11/08/2016 11:32 AM CDT Start [...] chest discomfort. He went back to the systems testing laboratory technician, but the stent was patent and the [...] peripheral vascular disease that apparently were negative. (DOC:[id number]) Filed Vitals: 11/08/16 1107 BP: 102/64 Height: 1.75 m (5' 8.9") Weight: 74.481 kg (164 lb 3.2 oz) Body mass index is 24.32 kg/(m^2). Past Medical History Patient Active Problem List Diagnosis Date Noted Unstable angina (HCC) 08/13/2016 Coronary artery disease of [place] artery of [place] heart with stable angina pectoris (HCC) 08/09/2016 07/29/16: heart cath ([place], [place]) - total occlusion of the right [...] Diagnoses Name Primary? Coronary artery disease of [place] artery of [place] heart with stable angina pectoris (HCC) Essential hypertension Mixed hyperlipidemia Gastroesophageal reflux disease, esophagitis presence not specified Ischemic chest pain (HCC) Tobacco abuse History of noncompliance with medical treatment Assessment and Plan Assessment and Plan: 1. Coronary disease. He had a recent stent to the IMPLEMENTATION ADVISOR of the right coronary artery. He [...] please do not hesitate to contact us. ([id number]) Lidia Chang, RUG DRY ROOM ATTENDANT-C Current Medications (including today's revisions) amLODIPine (NORVASC) [...] mouth daily. Mr. Restrepo was seen with iLdia Chang, our Advanced Nurse Practitioner. He is [...] us if you have any further questions. (DOC:[id number]) in this encounter Plan of Treatment Not on fileas of this encounter Visit Diagnoses Diagnosis Coronary artery disease of [place] artery of [place] heart with stable angina pectoris (HCC) - Primary Essential hypertension Unspecified essential hypertension Mixed hyperlipidemia Tobacco abuse Tobacco use disorder in this encounter
--- OUTSIDE RECORDS SUMMARY | 2017-01-28 21:23 | XMS REPORT | Encounter Summary ---
Author Author [facility] Organization [facility] Address Unknown Phone Unavailable Care Team Providers Care Hotel Or Motel Receptionist Name Role Phone PCP Unavailable Reason for Visit * Reason Comments Patient Questions Encounter Details Date Type Department Care Team Description 11/17/2016 Telephone [facility] Abigail Marie, ADITYA Patient Questions [address] [facility] [address] [place] [address] Social History Tobacco Use Types Packs/Day Years [...]
--- OUTSIDE RECORDS SUMMARY | 2017-01-28 21:23 | XMS REPORT | Encounter Summary ---
Author Author [facility] Organization [facility] Address Unknown Phone Unavailable Care Team Providers Care Implementation Specialist Payroll Name Role Phone PCP Unavailable Encounter Details Date Type Department Care Team Description 01/12/2017 Procedure [facility] [address] [facility] [place] [address] Social History Tobacco Use Types [...]
--- OUTSIDE RECORDS SUMMARY | 2017-01-28 21:23 | XMS REPORT | Encounter Summary ---
Author Author [facility] Organization [facility] Address Unknown Phone Unavailable Care Team Providers Care Cleaner Furniture Name Role Phone PCP Unavailable Encounter Details Date Type Department Care Team Description 01/12/2017 Procedure [facility] [address] [facility] [place] [address] Social History Tobacco Use Types [...]
--- OUTSIDE RECORDS SUMMARY | 2017-01-28 21:23 | XMS REPORT | Encounter Summary ---
Author Author [facility] Organization [facility] Address Unknown Phone Unavailable Care Team Providers Care Business Dean Name Role Phone PCP Unavailable Encounter Details Date Type Department Care Team Description 01/12/2017 Hospital [facility] Encounter Hospital Radiology [address] [place], [place] [id number] Social History Tobacco Use Types Packs/Day Years [...] for Chest Pain. Max of 3 of [place] artery of tablets, call 911. [place] heart with stable angina pectoris (HCC), Essential [...]
--- OUTSIDE RECORDS SUMMARY | 2017-01-28 21:23 | XMS REPORT | Encounter Summary ---
Author Author [facility] Organization [facility] Address Unknown Phone Unavailable Care Team Providers Care Crinkling Machine Operator Name Role Phone PCP Unavailable Encounter Details Date Type Department Care Team Description 01/12/2017 Hospital [facility] Encounter Hospital Radiology [address] [place], [place] [id number] Social History Tobacco Use Types Packs/Day Years [...] for Chest Pain. Max of 3 of [place] artery of tablets, call 911. [place] heart with stable angina pectoris (HCC), Essential [...]
[2017-01-28] MEDS ORDERED: ASPI-983 PO (22:33)
[2017-01-28] MEDS ORDERED: SERT50TA9 PO (22:33)
[2017-01-28] MEDS ORDERED: TRAZ100T92 PO (22:33)
[2017-01-28] MEDS ORDERED: morphine INJ 4 MG/ML 1 ML (VIAL/SYRINGE) IVP PRN (23:00)
[2017-01-28] MEDS ORDERED: NS IV 1000 ML 1,000 ML IV SCH (23:00)
[2017-01-28] MEDS ORDERED: ONDANSETRON 4 MG/2 ML (SDV) Z0FRAN IVP PRN (23:00)
[2017-01-28] MEDS: morphine INJ 4 MG/ML 1 ML (VIAL/SYRINGE) IV PRN (23:02)
[2017-01-28] MEDS: NS IV 1000 ML 1,000 ML IV SCH (23:03)
[2017-01-28 23:06] VITALS: BP 153/79
[2017-01-28] MEDS: ONDANSETRON 4 MG/2 ML (SDV) Z0FRAN IV PRN (23:25)
[2017-01-29] VITALS (19 sets, daily range): BP systolic 113–209; BP diastolic 71–99
[2017-01-29] MEDS ORDERED: RT-ALBUTEROL/IPRATROPIUM 3 ML (DUONEB) VIAL INH PRN
[2017-01-29] MEDS: morphine INJ 4 MG/ML 1 ML (VIAL/SYRINGE) IV PRN ×6 (02:36→21:18)
[2017-01-29 05:26] LABS: BASOPHILS % (AUTO) 0 % (0-10); EOSINOPHILS # (AUTO) 0.4 10^3/uL (0.0-0.3); EOSINOPHILS % (AUTO) 6 % (0-10); LYMPHOCYTES # (AUTO) 1.6 X 10^3 (1.0-4.0); LYMPHOCYTES % (AUTO) 26 % (12-44); MEAN CORPUSCULAR HEMOGLOBIN 30 PG (25-34); MEAN CORPUSCULAR HGB CONC 33 G/DL (32-36); MEAN CORPUSCULAR VOLUME 93 FL (80-99); MEAN PLATELET VOLUME 9.7 FL (7.4-10.4); MONOCYTES # (AUTO) 0.6 X 10^3 (0.0-1.0); MONOCYTES % (AUTO) 9 % (0-12); NEUTROPHILS # (AUTO) 3.7 X 10^3 (1.8-7.8); NEUTROPHILS % (AUTO) 59 % (42-75); PLATELET COUNT 366 10^3/uL (130-400); RED BLOOD COUNT 4.09 10^6/uL (4.35-5.85); RED CELL DISTRIBUTION WIDTH 12.6 % (10.0-14.5); WHITE BLOOD COUNT 6.3 10^3/uL (4.3-11.0)
[2017-01-29 07:16] LABS: ALANINE AMINOTRANSFERASE 69 U/L (0-55); ALBUMIN 3.7 GM/DL (3.2-4.5); ANION GAP 11 MMOL/L (5-14); ASPARTATE AMINO TRANSFERASE 32 U/L (5-34); BILIRUBIN,TOTAL 0.2 MG/DL (0.1-1.0); BLOOD UREA NITROGEN 19 MG/DL (7-18); BUN/CREATININE RATIO 17; CARBON DIOXIDE 22 MMOL/L (21-32); CHLORIDE 106 MMOL/L (98-107); CREATININE SERUM 1.13 MG/DL (0.60-1.30); GFR ESTIMATED > 60; GLUCOSE 98 MG/DL (70-105); POTASSIUM 4.5 MMOL/L (3.6-5.0); SODIUM 139 MMOL/L (135-145); TOTAL PROTEIN 6.9 GM/DL (6.4-8.2)
[2017-01-29] MEDS: RT-ALBUTEROL/IPRATROPIUM 3 ML (DUONEB) VIAL INH SCH ×2 (07:41→18:41)
--- NOTE | 2017-01-29 08:44 | History & Physicial ---
History of Present Illness History of Present Illness Reason for visit/HPI history by significant other since patient doesn't remember what happened. Significant other found patient curled up in the position. All of a sudden patient quit talking and right side weakness and drooping. Patient couldn't talk but grunted. Patient also had problems with his left side. Patient unable to do the right side upper and lower extremities. Patient can feel anything on right lower extremities. Patient's Babinski sign negative. Patient has history of coronary artery disease. Patient this morning can talk, no slurry speech, able to smile, and able to move the right upper extremity. Patient have problem with right foot Date of Admission Jan 28, 2017 at 21:17 Time Seen by Provider: 08:40 I consulted on this patient on 01/29/17 08:39 Attending Physician Silver Rabago DO Admitting Physician Silver Rabago DO Consult Allergies and Home Medications Allergies Coded Allergies: penicillin G (Verified Allergy, Severe, SWELLING, 12/23/11) Home Medications Amlodipine Besylate 10 Mg Tablet, 10 MG PO DAILY, (Reported) Apixaban 5 Mg Tablet, 5 MG PO BID, #60 Ref 1 Prescribed by: ELZA MONET on 01/21/17 1417 Aspirin 81 Mg Tablet.dr, 81 MG PO DAILY, (Reported) Bupropion HCl 150 Mg Tablet.er, 150 MG PO BID, (Reported) Clopidogrel Bisulfate 75 Mg Tablet, 75 MG PO HS, (Reported) Isosorbide Mononitrate 60 Mg Tab, 60 MG PO DAILY, (Reported) Losartan Potassium 50 Mg Tablet, 50 MG PO DAILY, (Reported) Nitroglycerin 0.4 Mg Tab.subl, 0.4 MG SL UD PRN for CHEST PAIN, (Reported) PLACE 1 TAB UNDER TONGUE NEEDED FOR CHEST PAIN; IF PAIN REMAINS AFTER 5 MINUTES, CALL 911 [place]-3 Fatty Acids/Fish Oil 1 Each Capsule, 1,000 MG PO BID, (Reported) Sertraline HCl 50 Mg Tablet, 50 MG PO DAILY, (Reported) Trazodone HCl 100 Mg Tablet, 100 MG PO HS, (Reported) Past Myclhmp-Lsmblq-Iwknav Hx Patient Social History Marrital Status: single Employed/Student: unemployed Alcohol Use: Past History Recreational Drug Use: No Smoking Status: Current Everyday Smoker Type Used: Cigarettes 2nd Hand Smoke Exposure: Yes Physical Abuse Screen: No Sexual Abuse: No Recent Foreign Travel: No Contact w/other who traveled: No Recent Hopitalizations: No Recent Infectious Disease Expo: No Immunizations Up To Date Tetanus Booster (TDap): Less than 5yrs Date of Influenza Vaccine: Dec 28, 2014 Seasonal Allergies Seasonal Allergies: No Surgeries HX Surgeries: Yes (hernia) Surgeries: Abdominal, Coronary Stent, Orthopedic Respiratory Hx Respiratory Disorders: No Cardiovascular Hx Cardiovascular Disorders: Yes (CARDIAC STENTS) Cardiac Disorders: Coronary Artery Disease, Deep Vein Thrombosis, Heart Attack , High Cholesterol, Hypertension Neurological Hx Neurological Disorders: Yes (MINI STROKES-SEVERAL) Neurological Disorders: Stroke, TIA Reproductive System Hx Reproductive Disorders: No Sexually Transmitted Disease: No Genitourinary Hx Genitourinary Disorders: No Gastrointestinal Hx Gastrointestinal Disorders: Yes Gastrointestinal Disorders: Gastroesophageal Reflux, Hiatal Hernia, Ulcer Musculoskeletal Hx Musculoskeletal Disorders: No Endocrine Hx Endocrine Disorders: No HEENT HX ENT Disorders: No Loss of Vision: Denies Cancer Hx Cancer: No Psychosocial Hx Psychiatric Problems: No Behavioral Health Disorders: Depression Integumentary HX Skin/Integumentary Disorder: No Blood Transfusions Hx Blood Disorders: No Adverse Reaction to a Blood Tr: No Family Medical History Significant Family History: Heart Disease, Hypertension Family Hx: Arthritis 19 MOTHER CENTERLESS GRINDER OPERATOR G8 SISTER FH: COPD (chronic obstructive pulmonary disease) Hypercholesterolemia 19 MOTHER Hypertension 19 MOTHER Constitutional: weakness, other (nonverbal, weakness on right side and unable to move) EENTM: other (right sided weakness, grunting, nonverbal) Respiratory: no symptoms reported Cardiovascular: no symptoms reported Gastrointestinal: no symptoms reported Physical Exam Vital Signs Vital Sign - Last 12Hours 01/28/17 01/28/17 19:20 23:36 Temp 98.2 Pulse 95 Resp 14 B/P (MAP) 188/94 Pulse Ox 97 O2 Delivery Room Air FiO2 21 Capillary Refill : Less Than 3 Seconds General Appearance: No Apparent Distress, Thin Eyes: Bilateral Eye Normal Inspection HEENT: Normal ENT Inspection Neck: Full Range of Motion, Non Tender, Supple Respiratory: Chest Non Tender, Normal Breath Sounds, No Accessory Muscle Use, No Respiratory Distress Cardiovascular: Regular Rate, Rhythm, No Murmur Gastrointestinal: Non Tender, Soft Extremity: Other (able to move right upper extremity.weakness right foot Babinski negative) Assessment/Plan Assessment and Plan transient amnesia. Right sided weakness. Coronary artery disease. Depression. TIA versus CVA Problems: Clinical Quality Measures DVT/VTE Risk/Contraindication: Risk Factor Score Per Nursin RFS Level Per Nursing on Admit: 4+=Very High Stroke: Date of last known well: Jan 28, 2017 Symptoms onset unknown: Yes SILVER RABAGO DO Jan 29, 2017 08:44
[2017-01-29] MEDS ORDERED: NITROGLYCERIN SUBLINGUAL 0.4 MG TAB (NITROSTAT) SL PRN (09:30)
[2017-01-29] MEDS ORDERED: PATIENT MAY USE OWN MEDS, ALL MC SCH (09:30)
[2017-01-29] MEDS ORDERED: APIXABAN 5 MG (ELIQUIS) TABLET PO SCH (10:03)
[2017-01-29] MEDS ORDERED: ASPIRIN E.C. 81 MG (ECOTRIN) TAB PO SCH (10:05)
[2017-01-29] MEDS ORDERED: OMEGA 3 (FISH OIL) 1000 MG CAP PO SCH (10:18)
[2017-01-29] MEDS: ISOSORBIDE MONONITRATE 60 MG (IMDUR) TAB PO SCH (10:47)
[2017-01-29] MEDS: SERTRALINE 50 MG (ZOLOFT) TABLET PO SCH (10:48)
[2017-01-29] MEDS: amLODIPine 10 MG (NORVASC) TAB PO SCH (10:49)
[2017-01-29] MEDS: LOSARTAN 50 MG (COZAAR) TAB PO SCH ×3 (10:52→11:21)
[2017-01-29] MEDS: buPROPion SR 150 MG (WELLBUTRIN SR) TAB PO SCH (10:53)
--- NOTE | 2017-01-29 11:14 | Physical Therapy Progress Note ---
Therapy Progress Note Attempted PT evaluation today. In speaking with patient he stated that he had a worsening headache. RN and I decided to wait on finishing evaluation until tomorrow AM to ensure we did not extend a CVA by performing evaluation today. JIM QUIÑONES PT Jan 29, 2017 11:14
--- NOTE | 2017-01-29 11:22 | Diagnostic Imaging Report ---
PROCEDURE: US Carotid Duplex Bilateral. TECHNIQUE: Multiple real-time grayscale images were obtained over the carotid arteries in various projections bilaterally. Additional duplex Doppler and color Doppler images were also obtained. INDICATION: Right-sided weakness There are no previous examinations available for comparison. There is fairly heavy hard and soft plaque formation involving the mid and distal common carotid artery on the left. The velocity in this region is also higher than the corresponding levels of the common carotid artery on the right. The maximum velocity is 176 cm/s as opposed to 96.6 on the right. The other velocities are similar. The IC/CC ratios are not elevated and there is no hemodynamically significant stenosis identified. Both vertebral arteries were noted and there was antegrade flow bilaterally. IMPRESSION: 1. There is heavy hard and soft plaque formation involving the mid and distal common carotid artery on the left but there is no sign of a hemodynamically significant stenosis of either carotid system. 2. If clinical concern regarding an underlying abnormality persists, then CTA of the neck would be recommended for further study. Dictated by: Dictated on workstation # [id number]
--- NOTE | 2017-01-29 13:20 | Consultation-Cardiology ---
HPI-Cardiology Cardiology Consultation Date of Consultation 01/29/17 Date of Admission Time Seen by Provider: 13:15 Indication: chest pain, TIA HPI 56 years old gentleman with extensive cardiac history, multiple intervention the past. Had multiple episode of chest pain, was seen last week for acute CVA and he was sent to , according to the girlfriend workup was negative. Patient was discharged home, he was doing well, having chest pain on and off which has been chronic issue with him, returned last night to see him in a position, having slurred speech and facial droop. EMS were called upon arrival to the hospital he was starting to improve, I took him few hours to get back to his normal, this morning he started having chest pain again, has slight facial droop, became hypertensive, given nitroglycerin with some improvement of the chest pain and relief of his symptoms, blood pressure is better at this time. Upper my evaluation patient was concerned, he expressed that he has been taking his medication, concerned about the recurrent episode of TIA. He has been having chest pain on and off, mild shortness of breath. Home Medications & Allergies Allergies: Coded Allergies: penicillin G (Verified Allergy, Severe, SWELLING, 12/23/11) Home Medication List Reviewed: Yes ANG-Lzizxx-Dufdql Hx Patient Social History Marital Status: single Employed/Student: unemployed Alcohol Use: Past History Recreational Drug Use: No Smoking Status: Current Everyday Smoker Type Used: Cigarettes 2nd Hand Smoke Exposure: Yes Recent Foreign Travel: No Recent Infectious Disease Expo: No Recent Hopitalizations: No Physical Abuse Screen: No Sexual Abuse: No Immunizations Up To Date Tetanus Booster (TDap): Less than 5yrs Date of Influenza Vaccine: Dec 28, 2014 Past Medical History past medical history as discussed below Family Medical History Significant Family History: Heart Disease, Hypertension Family History: 19 MOTHER Arthritis Hypertension Hypercholesterolemia G8 SISTER FLUX TUBE ATTENDANT Relation not specified for: FH: COPD (chronic obstructive pulmonary disease) Constitutional: see HPI, malaise, weakness EENTM: no symptoms reported, see HPI Respiratory: see HPI, No cough, No dyspnea on exertion, No hemoptysis, No orthopnea, No phlegm, short of breath, No stridor, No wheezing, No other Cardiovascular: see HPI, chest pain, edema, Hx of Intervention, palpitations, syncope, vascular heart diseas, other Gastrointestinal: no symptoms reported, see HPI Genitourinary: no symptoms reported, see HPI Musculoskeletal: see HPI, back pain, muscle weakness Skin: no symptoms reported, see HPI Psychiatric/Neurological: No Symptoms Reported, See HPI, Anxiety, Numbness, Weakness, Other (right sided weakness and facial that has improved) Reviewed Test Results Reviewed Test Results Lab Laboratory Tests Test 01/28/17 19:11 01/28/17 19:29 01/28/17 22:53 01/29/17 05:07 Range/Units White Blood Count 7.9 6.3 4.3-11.0 10^3/uL Red Blood Count 4.42 4.09 L 4.35-5.85 10^6/uL Hemoglobin 14.1 12.4 L 13.3-17.7 G/DL Hematocrit 41 38 L 40-54 % Mean Corpuscular Volume 92 93 80-99 FL Mean Corpuscular Hemoglobin 32 30 25-34 PG Mean Corpuscular Hemoglobin Concent 35 33 32-36 G/DL Red Cell Distribution Width 12.7 12.6 10.0-14.5 % Platelet Count 458 H 366 130-400 10^3/uL Mean Platelet Volume 9.8 9.7 7.4-10.4 FL Neutrophils (%) (Auto) 53 59 42-75 % Lymphocytes (%) (Auto) 30 26 12-44 % Monocytes (%) (Auto) 11 9 0-12 % Eosinophils (%) (Auto) 6 6 0-10 % Basophils (%) (Auto) 1 0 0-10 % Neutrophils # (Auto) 4.1 3.7 1.8-7.8 X 10^3 Lymphocytes # (Auto) 2.3 1.6 1.0-4.0 X 10^3 Monocytes # (Auto) 0.9 0.6 0.0-1.0 X 10^3 Eosinophils # (Auto) 0.5 H 0.4 H 0.0-0.3 10^3/uL Basophils # (Auto) 0.0 0.0 0.0-0.1 10^3/uL Prothrombin Time 11.4 L 12.2-14.7 SEC INR Comment 0.9 0.8-1.4 Activated Partial Thromboplast Time 33 24-35 SEC D-Dimer 0.60 H 0.00-0.49 UG/ML Sodium Level 140 139 135-145 MMOL/L Potassium Level 4.9 4.5 3.6-5.0 MMOL/L Chloride Level 103 106 98-107 MMOL/L Carbon Dioxide Level 22 22 21-32 MMOL/L Anion Gap 15 H 11 5-14 MMOL/L Blood Urea Nitrogen 21 H 19 H 7-18 MG/DL Creatinine 1.31 H 1.13 0.60-1.30 MG/DL Estimat Glomerular Filtration Rate 57 > 60 BUN/Creatinine Ratio 16 17 Glucose Level 117 H 98 70-105 MG/DL Calcium Level 9.9 9.0 8.5-10.1 MG/DL Total Bilirubin 0.2 0.2 0.1-1.0 MG/DL Aspartate Amino Transf (AST/SGOT) 35 H 32 5-34 U/L Alanine Aminotransferase (ALT/SGPT) 77 H 69 H 0-55 U/L Alkaline Phosphatase 245 H 211 H 40-136 U/L Troponin I < 0.30 < 0.30 <0.30 NG/ML Total Protein 9.7 H 6.9 6.4-8.2 GM/DL Albumin 4.3 3.7 3.2-4.5 GM/DL Acetaminophen Level < 10 L 10-30 UG/ML Serum Alcohol < 10 <10 MG/DL Urine Color YELLOW Urine Clarity SLIGHTLY CLOUDY Urine pH 5 5-9 Urine Specific [place] 1.020 1.016-1.022 Urine Protein 2+ H NEGATIVE Urine Glucose (UA) NEGATIVE NEGATIVE Urine Ketones NEGATIVE NEGATIVE Urine Nitrite NEGATIVE NEGATIVE Urine Bilirubin NEGATIVE NEGATIVE Urine Urobilinogen NORMAL NORMAL MG/DL Urine Leukocyte Esterase 2+ H NEGATIVE Urine RBC (Auto) 5+ H NEGATIVE Urine RBC TNTC H /HPF Urine WBC 5-10 H /HPF Urine Crystals NONE /LPF Urine Bacteria NEGATIVE /HPF Urine Casts NONE /LPF Urine Mucus NEGATIVE /LPF Urine Culture Indicated YES Urine Opiates Screen POSITIVE H NEGATIVE Urine Oxycodone Screen NEGATIVE NEGATIVE Urine Methadone Screen NEGATIVE NEGATIVE Urine Propoxyphene Screen NEGATIVE NEGATIVE Urine Barbiturates Screen NEGATIVE NEGATIVE Ur Tricyclic Antidepressants Screen NEGATIVE NEGATIVE Urine Phencyclidine Screen NEGATIVE NEGATIVE Urine Amphetamines Screen NEGATIVE NEGATIVE Urine Methamphetamines Screen NEGATIVE NEGATIVE Urine Benzodiazepines Screen NEGATIVE NEGATIVE Urine Cocaine Screen NEGATIVE NEGATIVE Urine Cannabinoids Screen NEGATIVE NEGATIVE Test 01/29/17 11:50 Range/Units Physical Exam Vital Signs Vital Sign - Last 12Hours 8/11/17 8/11/17 19:20 23:36 Temp 98.2 Pulse 95 Resp 14 B/P (MAP) 188/94 Pulse Ox 97 O2 Delivery Room Air FiO2 21 Capillary Refill : Less Than 3 Seconds General Appearance: WD/WN, Mild Distress Eyes: Bilateral Eye EOMI, Bilateral Eye Normal Inspection, Bilateral Eye PERRL HEENT: PERRL/EOMI, TMs Normal, Normal ENT Inspection, Pharynx Normal Neck: Full Range of Motion, Normal Inspection, Non Tender, Supple, Carotid Bruit Respiratory: Chest Non Tender, Lungs Clear, Normal Breath Sounds, No Accessory Muscle Use, No Respiratory Distress Cardiovascular: Regular Rate, Rhythm, No Edema, No Gallop, No JVD, Normal Peripheral Pulses, Systolic Murmur Gastrointestinal: Normal Bowel Sounds, No Organomegaly, No Pulsatile Mass, Non Tender, Soft Back: Normal Inspection, No CVA Tenderness, No Vertebral Tenderness Extremity: Normal Capillary Refill, Normal Inspection, Normal Range of Motion, Non Tender, No Calf Tenderness, No Pedal Edema Neurologic/Psychiatric: Alert, Oriented x3, No Motor/Sensory Deficits, Normal Mood/Affect Skin: Normal Color, Warm/Dry Lymphatic: No Adenopathy A/P-Cardiology Admission Diagnosis chest pain TIA CAD Hypertension Assessment/Plan Chest pain, resembling angina, patient has chronic chest pain, became worse today, EKG did not show any acute abnormality or changes from baseline. Continue to monitor at this time. Transient ischemic attack, recent CVA occurred last week. Source is unknown, patient was started on Eliquis on the last admission process patient of cardiac thrombus, the last echo that was done in July 2016 showed questionable healed vegetation on the aortic cusp with moderate aortic regurgitation, it could be the source of his recurrent CVA/TIA, I am planning to proceed with PETER evaluation and restart aspirin and Plavix. The use of Eliquis will increase the risk of bleeding, he does not have any documented atrial fibrillation in the past. I will evaluate for any other cardiac source of embolization. Coronary artery disease, cardiac catheterization carried out July 27, 2016 revealed total occlusion of right coronary artery, severe stenosis at the proper circumflex artery, ostial circumflex stenosis, LAD had moderate disease. IVUS showed 60 percent stenosis, underwent stenting to the right coronary artery with excellent results. Patient underwent multiple cardiac catheterizations in the month of July due to his ongoing chest pain. Most recent cardiac catheterization carried out by Dr. Ortiz on August 14, 2016 revealed widely patent stented portion of the RCA which was completely occluded before. 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 Recommended conservative management for the area rather than ballooning it, probably it will thrombose without affecting the stent. Distal circumflex artery with 90 percent stenosis, small vessel supplying very small amount of myocardium. Patient's discomfort is incessant, going on for several weeks, unchanged after the PCI of the RCA. Unlikely that his unrelenting pain is related to this, recommended continuing with medical management. I will put him back on aspirin and Plavix. Echocardiogram showed normal LV function, questionable healed vegetation on aortic valve, moderate aortic regurgitation, planning for PETER evaluation Hypertension, labile blood pressure, I will evaluate tolerance to beta blockers at this time Hyperlipidemia, continue on statin and monitor Claudication pain-complains of claudication pain to bilateral lower extremity at distances of 2-3 blocks. Denies any rest pain, ulceration, or gangrene, Normal LOLIS Headache-complains of intermittent headache over the past several months. No change after blood pressure is better controlled. Recommend follow-up with primary care physician. History of elevated LFTs-continue to monitor. GERD with history of gastritis, continue on Protonix Tobaccoism-patient was once again educated on importance of smoking cessation. 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
[2017-01-29] MEDS: NS IV 1000 ML 1,000 ML IV SCH (14:40)
[2017-01-29] MEDS: ACETAMINOPHEN 500 MG TAB (TYLENOL) PO PRN (14:56)
[2017-01-29] MEDS: OMEGA 3 (FISH OIL) 1000 MG CAP PO SCH (18:00)
[2017-01-29] MEDS: traZODone 100 MG (DESYREL) TAB PO SCH (21:07)
[2017-01-29] MEDS: CLOPIDOGREL 75 MG (PLAVIX) TABLET PO SCH (21:07)
[2017-01-29] MEDS: CARVEDILOL 3.125 MG (COREG) TABLET PO SCH (21:08)
[2017-01-29] MEDS: ONDANSETRON 4 MG/2 ML (SDV) Z0FRAN IV PRN (21:08)
[2017-01-29] MEDS: ATORVASTATIN 10 MG (LIPITOR) TABLET PO SCH (21:08)
[2017-01-30] VITALS (24 sets, daily range): BP systolic 92–149; BP diastolic 55–89
[2017-01-30] MEDS: NS IV 1000 ML 1,000 ML IV SCH ×2 (01:30→15:07)
[2017-01-30 05:46] LABS: BASOPHILS % (AUTO) 0 % (0-10); EOSINOPHILS # (AUTO) 0.4 10^3/uL (0.0-0.3); EOSINOPHILS % (AUTO) 6 % (0-10); LYMPHOCYTES # (AUTO) 1.5 X 10^3 (1.0-4.0); LYMPHOCYTES % (AUTO) 21 % (12-44); MEAN CORPUSCULAR HEMOGLOBIN 30 PG (25-34); MEAN CORPUSCULAR HGB CONC 32 G/DL (32-36); MEAN CORPUSCULAR VOLUME 93 FL (80-99); MEAN PLATELET VOLUME 9.7 FL (7.4-10.4); MONOCYTES # (AUTO) 0.6 X 10^3 (0.0-1.0); MONOCYTES % (AUTO) 9 % (0-12); NEUTROPHILS # (AUTO) 4.5 X 10^3 (1.8-7.8); NEUTROPHILS % (AUTO) 64 % (42-75); PLATELET COUNT 361 10^3/uL (130-400); RED BLOOD COUNT 4.06 10^6/uL (4.35-5.85); RED CELL DISTRIBUTION WIDTH 12.7 % (10.0-14.5)
[2017-01-30 06:07] LABS: ALANINE AMINOTRANSFERASE 53 U/L (0-55); ALBUMIN 3.6 GM/DL (3.2-4.5); ANION GAP 10 MMOL/L (5-14); ASPARTATE AMINO TRANSFERASE 17 U/L (5-34); BILIRUBIN,TOTAL 0.3 MG/DL (0.1-1.0); BLOOD UREA NITROGEN 17 MG/DL (7-18); BUN/CREATININE RATIO 15; CARBON DIOXIDE 24 MMOL/L (21-32); CHLORIDE 105 MMOL/L (98-107); GFR ESTIMATED > 60; GLUCOSE 92 MG/DL (70-105); POTASSIUM 4.2 MMOL/L (3.6-5.0); SODIUM 139 MMOL/L (135-145); TOTAL PROTEIN 6.7 GM/DL (6.4-8.2)
[2017-01-30] MEDS: OMEGA 3 (FISH OIL) 1000 MG CAP PO SCH ×2 (06:59→17:00)
--- NOTE | 2017-01-30 07:51 | Progress Note (SOAP) ---
Subjective Time Seen by Provider: 07:45 Subjective/Events-last exam patient had episodes yesterday malignant hypertension and TIA symptoms. Patient transferred to ICU. Patient feeling better today. Patient mentally doing better today. Patient able to move all extremities. Coronary artery disease. Hyperlipidemia. Malignant hypertension. Weakness on left side of the body resolved Objective Exam Vital Signs Date Time Temp Pulse Resp B/P (MAP) Pulse Ox O2 Delivery O2 Flow Rate FiO2 01/30/17 06:00 57 10 113/78 93 Room Air 01/30/17 05:00 60 13 106/63 91 Room Air 01/30/17 04:00 61 10 105/56 91 Room Air 01/30/17 04:00 97.7 01/30/17 04:00 Room Air 01/30/17 03:00 64 16 102/55 90 Room Air 01/30/17 02:00 63 14 146/86 93 Room Air 01/30/17 01:00 51 10 104/66 93 Room Air 01/30/17 01:00 51 01/30/17 00:06 98.2 01/30/17 00:00 50 10 108/66 93 Room Air 01/30/17 00:00 Room Air 01/29/17 23:00 54 13 153/88 91 Room Air 01/29/17 22:00 58 14 121/79 91 Room Air 01/29/17 21:00 61 13 173/87 94 Room Air 01/29/17 20:00 97.9 01/29/17 20:00 Room Air 01/29/17 20:00 64 18 152/91 98 Room Air 01/29/17 19:00 67 01/29/17 19:00 67 30 137/92 95 Room Air 01/29/17 18:41 95 Room Air 01/29/17 18:00 60 21 147/78 96 Room Air 01/29/17 17:00 54 10 113/78 95 Room Air 01/29/17 16:05 Room Air 01/29/17 16:04 98.0 57 12 131/73 93 Room Air 01/29/17 15:00 59 10 134/71 97 Room Air 01/29/17 14:00 67 15 143/79 95 Room Air 01/29/17 13:00 63 14 142/91 96 Room Air 01/29/17 13:00 66 01/29/17 11:47 97.6 58 12 137/92 97 Room Air 01/29/17 11:45 Room Air 01/29/17 11:22 174/89 01/29/17 11:20 191/93 01/29/17 11:14 200/97 01/29/17 11:05 96.1 73 25 209/99 97 Room Air 01/29/17 08:00 98.8 68 20 163/80 97 Room Air 01/29/17 07:49 58 I & O 01/30/17 07:00 Intake Total 2000 ml Output Total 2400 ml Balance -400 ml Capillary Refill : Less Than 3 Seconds General Appearance: No Apparent Distress, Thin HEENT: Normal ENT Inspection Neck: Full Range of Motion, Non Tender Respiratory: Chest Non Tender, Lungs Clear, Normal Breath Sounds, No Accessory Muscle Use, No Respiratory Distress Cardiovascular: Regular Rate, Rhythm, No Murmur Gastrointestinal: normal bowel sounds, soft Results Lab Laboratory Tests 01/30/17 05:20 Laboratory Tests 01/29/17 11:50: 01/30/17 05:20: White Blood Count 7.0, Red Blood Count 4.06L, Hemoglobin 12.2L, Hematocrit 38L, Mean Corpuscular Volume 93, Mean Corpuscular Hemoglobin 30, Mean Corpuscular Hemoglobin Concent 32, Red Cell Distribution Width 12.7, Platelet Count 361, Mean Platelet Volume 9.7, Neutrophils (%) (Auto) 64, Lymphocytes (%) (Auto) 21, Monocytes (%) (Auto) 9, Eosinophils (%) (Auto) 6, Basophils (%) (Auto) 0, Neutrophils # (Auto) 4.5, Lymphocytes # (Auto) 1.5, Monocytes # (Auto) 0.6, Eosinophils # (Auto) 0.4H, Basophils # (Auto) 0.0, Sodium Level 139, Potassium Level 4.2, Chloride Level 105, Carbon Dioxide Level 24, Anion Gap 10, Blood Urea Nitrogen 17, Creatinine 1.10, Estimat Glomerular Filtration Rate > 60, BUN/ Creatinine Ratio 15, Glucose Level 92, Calcium Level 9.0, Total Bilirubin 0.3, Aspartate Amino Transf (AST/SGOT) 17, Alanine Aminotransferase (ALT/SGPT) 53, Alkaline Phosphatase 203H, Total Protein 6.7, Albumin 3.6 Microbiology 01/28/17 Urine Culture - Preliminary, Resulted NO GROWTH Radiology PT STATUS: ADM Sherry : 1960 PHYSICIAN: ANDRES RABAGO DO ADMIT DATE: 01/28/17/ICU Signed Date of Exam: 01/29/17 US CAROTID ADE COMPLETE [id number] PROCEDURE: US Carotid Duplex Bilateral. TECHNIQUE: Multiple real-time grayscale images were obtained over the carotid arteries in various projections bilaterally. Additional duplex Doppler and color Doppler images were also obtained. INDICATION: Right-sided weakness There are no previous examinations available for comparison. There is fairly heavy hard and soft plaque formation involving the mid and distal common carotid artery on the left. The velocity in this region is also higher than the corresponding levels of the common carotid artery on the right. The maximum velocity is 176 cm/s as opposed to 96.6 on the right. The other velocities are similar. The IC/CC ratios are not elevated and there is no hemodynamically significant stenosis identified. Both vertebral arteries were noted and there was antegrade flow bilaterally. IMPRESSION: 1. There is heavy hard and soft plaque formation involving the mid and distal common carotid artery on the left but there is no sign of a hemodynamically significant stenosis of either carotid system. 2. If clinical concern regarding an underlying abnormality persists, then CTA of the neck would be recommended for further study. Dictated by: Assessment/Plan Assessment/Plan Assess & Plan/Chief Complaint malignant hypertension. CVA versus TIA Coronary artery disease. Patient moving all extremities now. Drooping of mouth. Good speech. Patient feeling better today and less depressed. Depression Clinical Quality Measures DVT/VTE Risk/Contraindication: Risk Factor Score Per Nursin RFS Level Per Nursing on Admit: 4+=Very High Contraindications-Pharm: Other *list below* Stroke: Date of last known well: Jan 28, 2017 Symptoms onset unknown: Yes ANDRES RABAGO DO Jan 30, 2017 07:51
--- NOTE | 2017-01-30 08:19 | Physical Therapy Progress Note ---
Therapy Progress Note Attempted to perform evaluation today. Patient has been transferred to ICU. Spoke with RN and she stated that patient was going to have a cardioversion shortly and recommended waiting until tomorrow for evaluation. JIM QUIÑONES PT Jan 30, 2017 08:19
[2017-01-30] MEDS: RT-ALBUTEROL/IPRATROPIUM 3 ML (DUONEB) VIAL INH SCH ×2 (08:39→19:24)
[2017-01-30] MEDS ORDERED: LIDOCAINE 2% VISCOUS 15 ML UDC ONE (09:18)
[2017-01-30] MEDS ORDERED: fentaNYL INJECTION 100 MCG/2 ML AMP ONE (10:38)
[2017-01-30] MEDS ORDERED: MIDAZOLAM 5 MG/5 ML (VERSED) VIAL ONE (10:39)
--- NOTE | 2017-01-30 12:01 | Cardiology Progress Note ---
Subjective Date Seen by Provider: Jan 30, 2017 Time Seen by Provider: 11:58 Subjective/Events-last exam patient is laying down in bed, feeling better, denied any chest pain, was planning to have a PETER done today but the machine did not work. the procedure will be rescheduled Review of Systems General: No Chills, No Night Sweats, No Fatigue, No Malaise, No Appetite, No Other HEENT: No Head Aches, No Visual Changes, No Eye Pain, No Ear Pain, No Dysphasia , No Sinus Congestion, No Post Nasal Drip, No Sore Throat, No Other Pulmonary: No Dyspnea, No Cough, No Pleuritic Chest Pain, No Other Cardiovascular: No: Chest Pain, Edema, Lt Headedness, Orthopnea, Other, Palpitations, Paroxysmal Noc. Dyspnea Objective-Cardiology Exam Last Set of Vital Signs Vital Signs 01/28/17 01/30/17 01/30/17 01/30/17 23:36 06:00 07:00 08:39 Pulse 55 Resp 10 B/P (MAP) 113/78 Pulse Ox 92 O2 Delivery Room Air FiO2 21 Capillary Refill : Less Than 3 Seconds I&O Intake and Output 01/30/17 00:00 Intake Total 1900 ml Output Total 2100 ml Balance -200 ml Intake Oral 900 ml IV Total 1000 ml Output Urine Total 2100 ml General: Alert, Oriented X3, Cooperative HEENT: Atraumatic, PERRLA Neck: Supple, No JVD, No Thyromegaly Lungs: Clear to Auscultation, Normal Air Movement Heart: Regular Rate, Normal S1, Normal S2, Other (systolic murmur) Abdomen: Normal Bowel Sounds, Soft, No Tenderness, No Hepatosplenomegaly, No Masses Extremities: No Clubbing, No Cyanosis, No Edema, Normal Pulses, No Tenderness/ Swelling Skin: No Rashes, No Breakdown, No Significant Lesion Neuro: Normal Gait, Normal Speech, Strength at 5/5 X4 Ext, Normal Tone, Sensation Intact Psych/Mental Status: Mental Status NL, Mood NL Results Lab Laboratory Tests 01/30/17 05:20 IMPRESSION: 1. There is heavy hard and soft plaque formation involving the mid and distal common carotid artery on the left but there is no sign of a hemodynamically significant stenosis of either carotid system. 2. If clinical concern regarding an underlying abnormality persists, then CTA of the neck would be recommended for further study. A/P-Cardiology Admission Diagnosis chest pain TIA CAD Hypertension Assessment/Plan Chest pain, resembling angina, patient has chronic chest pain, feeling better, EKG did not show any acute abnormality or changes from baseline. Continue to monitor at this time. Transient ischemic attack, recent CVA occurred last week. Source is unknown, patient was started on Eliquis on the last admission process patient of cardiac thrombus, the last echo that was done in July 2016 showed questionable healed vegetation on the aortic cusp with moderate aortic regurgitation, it could be the source of his recurrent CVA/TIA, I am planning to proceed with PETER evaluation and restart aspirin and Plavix. The use of Eliquis will increase the risk of bleeding, he does not have any documented atrial fibrillation in the past. carotid ultrasound was reported to have heavy atherosclerotic plaques but no obstructive disease, CT angiogram or MRA would be of help, I was planning to do PETER today but machine did not work, I will consider evaluating PETER tomorrow Coronary artery disease, cardiac catheterization carried out July 27, 2016 revealed total occlusion of right coronary artery, severe stenosis at the proper circumflex artery, ostial circumflex stenosis, LAD had moderate disease. IVUS showed 60 percent stenosis, underwent stenting to the right coronary artery with excellent results. Patient underwent multiple cardiac catheterizations in the month of July due to his ongoing chest pain. Most recent cardiac catheterization carried out by Dr. Ortiz on August 14, 2016 revealed widely patent stented portion of the RCA which was completely occluded before. 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 Recommended conservative management for the area rather than ballooning it, probably it will thrombose without affecting the stent. Distal circumflex artery with 90 percent stenosis, small vessel supplying very small amount of myocardium. Patient's discomfort is incessant, going on for several weeks, unchanged after the PCI of the RCA. Unlikely that his unrelenting pain is related to this, recommended continuing with medical management. continue on aspirin and Plavix Echocardiogram showed normal LV function, questionable healed vegetation on aortic valve, moderate aortic regurgitation, planning for PETER evaluation Hypertension, labile blood pressure, continue to monitor blood pressure Hyperlipidemia, continue on statin and monitor Claudication pain-complains of claudication pain to bilateral lower extremity at distances of 2-3 blocks. Denies any rest pain, ulceration, or gangrene, Normal LOLIS Headache-complains of intermittent headache over the past several months. No change after blood pressure is better controlled. Recommend follow-up with primary care physician. History of elevated LFTs-continue to monitor. GERD with history of gastritis, continue on Protonix Tobaccoism-patient was once again educated on importance of smoking cessation. 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
--- NOTE | 2017-01-30 12:15 | CONSULTATION REPORT ---
DATE OF SERVICE: 01/29/2017 The patient is admitted to room 415. REFERRING AND PRIMARY PHYSICIANS: Silver Hernandes DO IMPRESSION: 1. A 56-year-old male with recurrent symptoms of right-sided weakness. 2. Uncontrolled hypertension. 3. Coronary artery disease, requiring stent placement in the past and on medical management. 4. History of thrombosis and intracardiac thrombus, currently on anticoagulation with Eliquis and Plavix. 5. Rule out thrombophilia. RECOMMENDATIONS: 1. The patient has had factor II and factor V mutation analysis done on 01/20/2017, which were both negative. I would recommend obtaining a homocystine level today, but rest of the thrombophilia workup could not be done at this point, as he is on full anticoagulation. 2. Control hypertension and optimize cardiac medications. 3. Continue anticoagulation because of evidence of intracardiac thrombus and evidence of pulmonary thrombosis. 4. We will follow the patient with you. BRIEF HISTORY OF PRESENT ILLNESS: The patient is a 56-year-old male who was brought to the emergency room by family with right-sided weakness and difficulty speaking. The patient was said to be completely normal yesterday early afternoon. By the time his fiancee came back last evening, he was found on the floor with right-sided weakness and difficulty speaking and she contacted emergency medical services and brought him to the hospital. He was admitted for further evaluation and management. Today, he is complaining of headaches and has difficulty speaking. He has weakness of the right upper extremity as well as right lower extremity compared to the left side, but no evidence of hemiplegia. PAST MEDICAL HISTORY: Significant for coronary artery disease, requiring stenting and he is on Plavix and aspirin because of this. Recently, he was noted to have probable intracardiac thrombus as well as pulmonary thrombosis. He was started on Eliquis and is taking this regularly. The patient has history of hypertension and his blood pressure is significantly elevated today morning. He has had hernia surgery in the past as well as orthopedic surgeries. History of hypercholesterolemia and multiple TIA like symptoms over the last 3 and 1-2 years, but no documented CVAs. He has history of hiatal hernia and gastroesophageal reflux disease. No history of bleeding ulcers. He has history of depression also. SOCIAL HISTORY: The patient is living with his fiancee in [place], [place]. He has 3 adult children, 2 of them live close by and 1 son is in correction. He has extensive history of tobacco use and is currently smoking up to half pack of cigarettes a day. He has previous history of significant drug use including crystal meth. He has not used any drugs for at least last several weeks according to his fiancee. FAMILY HISTORY: Significant for his mother with hypertension and pulmonary artery disease. His father had PA and at the age of 60 years. Maternal grandmother had a stroke while in her 50s. No other history of thrombosis in the family. PHYSICAL EXAMINATION: GENERAL APPEARANCE: Today showed an elderly male, awake, but unable to provide a detailed history other than few words. His fiancee who is in the room provided most of the history. VITAL SIGNS: His temperature was 98.8, pulse rate of 68, respirations 20, blood pressure 163/80 and oxygen saturation of 97% on room air. HEENT: Normocephalic, extraocular muscles intact. Oral mucosa was slightly dry. NECK: Supple with no JVD. No cervical, supraclavicular or axillary lymphadenopathy palpable. CHEST: Symmetrical. LUNGS: With slightly diminished breath sounds bilaterally without wheezes or rales. CARDIOVASCULAR: Regular rate and rhythm without murmurs or gallops. ABDOMEN: Soft, nontender, with no hepatosplenomegaly or other masses palpable. EXTREMITIES: Showed no edema. NEUROLOGIC: Significant for motor strength of 4/5 on the right side and 5/5 on the left side. LAB WORK: CBC done today showed WBC 6.3, hemoglobin 12.4, platelet count of 366,000 with relative normal differential count. Chemistry panel showed normal electrolytes. BUN was 19 and creatinine 1.13 with GFR more than 60 mL per minute. His ALT was elevated at 69 and alkaline phosphatase at 211. Rest of the liver function studies were within normal limits. His drug screen was negative except for opiates. CT scan of the head at the time of admission without contrast showed no acute intracranial abnormality with no interval changes compared to the previous scans from 01/20/2017. Carotid ultrasound done today morning showed heavy hard and soft plaque formation involving the mid and distal common carotid artery on the left, with no sign of hemodynamically significant stenosis of either carotid system. A CTA of the neck was recommended for further study. The patient had factor II and factor V mutation evaluation done on 01/20/2017 and both of these were negative. Thank you for allowing me to participate in this patient's care. I will follow the patient with you and make appropriate recommendations. Job ID: [id number] DocumentID: [id number] Dictated Date: 01/29/2017 11:43:05 Manager Occupational Date: 01/29/2017 20:52:27 Dictated By: KEVIN BLACKMON MD MTDD
[2017-01-30] MEDS: CARVEDILOL 3.125 MG (COREG) TABLET PO SCH ×2 (13:09→19:54)
[2017-01-30] MEDS: ASPIRIN E.C. 81 MG (ECOTRIN) TAB PO SCH (13:10)
[2017-01-30] MEDS: morphine INJ 4 MG/ML 1 ML (VIAL/SYRINGE) IV PRN ×2 (13:10→19:53)
[2017-01-30] MEDS: ACETAMINOPHEN 500 MG TAB (TYLENOL) PO PRN ×2 (13:10→19:54)
[2017-01-30] MEDS: amLODIPine 10 MG (NORVASC) TAB PO SCH (13:14)
[2017-01-30] MEDS: buPROPion SR 150 MG (WELLBUTRIN SR) TAB PO SCH (13:14)
[2017-01-30] MEDS: LOSARTAN 50 MG (COZAAR) TAB PO SCH (13:15)
[2017-01-30] MEDS: ISOSORBIDE MONONITRATE 60 MG (IMDUR) TAB PO SCH (13:16)
[2017-01-30] MEDS: SERTRALINE 50 MG (ZOLOFT) TABLET PO SCH (13:16)
[2017-01-30] MEDS: ONDANSETRON 4 MG/2 ML (SDV) Z0FRAN IV PRN (15:52)
[2017-01-30] MEDS: ATORVASTATIN 10 MG (LIPITOR) TABLET PO SCH (19:54)
[2017-01-30] MEDS: traZODone 100 MG (DESYREL) TAB PO SCH (19:57)
[2017-01-30] MEDS: CLOPIDOGREL 75 MG (PLAVIX) TABLET PO SCH (19:58)
[2017-01-31] VITALS (26 sets, daily range): BP systolic 87–175; BP diastolic 52–95
[2017-01-31] MEDS: NS IV 1000 ML 1,000 ML IV SCH ×2 (04:29→18:06)
--- NOTE | 2017-01-31 07:31 | Progress Note (SOAP) ---
Subjective Time Seen by Provider: 07:30 Subjective/Events-last exam patient resting comfortably today. Patient speech is good. Patient extremities are good. Patient not having any chest pain. Blood pressure under control. Transplant global amnesia. Hypertension. Coronary artery disease. Recent history of CVA. Hematology for patient yesterday and cardiology Objective Exam Vital Signs Date Time Temp Pulse Resp B/P (MAP) Pulse Ox O2 Delivery O2 Flow Rate FiO2 01/31/17 06:14 64 23 132/70 94 Room Air 01/31/17 05:15 65 12 103/59 92 Room Air 01/31/17 04:23 50 8 125/76 96 Room Air 01/31/17 04:00 Room Air 01/31/17 03:00 59 10 122/79 92 Room Air 01/31/17 02:00 69 17 133/66 90 Room Air 01/31/17 01:00 66 11 87/52 91 Room Air 01/31/17 01:00 65 01/31/17 00:00 Room Air 01/31/17 00:00 55 12 99/61 93 Room Air 01/31/17 00:00 98.0 01/30/17 23:00 54 10 92/58 94 01/30/17 22:00 56 10 114/66 94 01/30/17 21:00 56 12 124/87 94 Room Air 01/30/17 20:00 Room Air 01/30/17 20:00 63 23 126/80 94 Room Air 01/30/17 20:00 98.8 Room Air 01/30/17 19:25 94 Room Air 01/30/17 19:00 65 8 145/82 94 Room Air 01/30/17 19:00 65 01/30/17 18:00 68 13 133/75 94 Room Air 01/30/17 17:00 73 18 135/69 94 Room Air 01/30/17 16:00 Room Air 01/30/17 16:00 61 14 131/67 94 Room Air 01/30/17 15:00 63 32 142/74 94 Room Air 01/30/17 14:00 71 16 142/82 94 Room Air 01/30/17 13:40 97.7 01/30/17 13:40 97.7 01/30/17 13:00 73 14 144/89 94 Room Air 01/30/17 13:00 76 01/30/17 12:00 60 10 149/87 95 Room Air 01/30/17 12:00 Room Air 01/30/17 11:00 59 7 145/88 95 Room Air 01/30/17 10:00 60 12 135/79 94 Room Air 01/30/17 09:00 63 14 135/75 92 Room Air 01/30/17 08:39 92 Room Air 01/30/17 08:00 66 11 107/64 92 Room Air 01/30/17 08:00 Room Air I & O 01/31/17 07:00 Intake Total 1820 ml Output Total 3150 ml Balance -1330 ml Capillary Refill : Less Than 3 Seconds General Appearance: No Apparent Distress, Thin HEENT: Normal ENT Inspection Neck: Full Range of Motion, Normal Inspection, Non Tender Respiratory: Chest Non Tender, Lungs Clear, No Accessory Muscle Use, No Respiratory Distress Cardiovascular: Regular Rate, Rhythm, No Murmur Gastrointestinal: non tender, soft Results Lab Microbiology 01/28/17 Urine Culture - Final, Complete NO GROWTH Radiology NAME: EZEQUIEL VITALE [facility] REC#: [id number] PT STATUS: REG ER : 1960 PHYSICIAN: ANGUS RUBALCAVA MD ADMIT DATE: 01/28/17/ER Signed Date of Exam: 01/28/17 CT HEAD WO-R/O STROKE INDICATION: STROKE. COMPARISON: 01/20/17. EXAMINATION: CT of the head without contrast. FINDINGS: The ventricles are normal in size, shape and position. There is no midline shift or mass effect. There is no focus of acute ischemia or hemorrhage. There is no midline shift or mass effect. No cerebral edema is identified. The bony calvarium, visualized paranasal sinuses and mastoids are normal. IMPRESSION: No acute intracranial abnormality. Stable CT head. No interval change. Dictated by: Dictated on workstation # [id number] Dict: 01/28/171918 Trans: 01/28/171923 Interpreted by: ROSETTA MEJIA Electronically signed by: ROSETTA MEJIA 01/28/171923 Assessment/Plan Assessment/Plan Assess & Plan/Chief Complaint malignant hypertension. CVA versus TIA Coronary artery disease. Patient moving all extremities now. Drooping of mouth. Good speech. Patient feeling better today and less depressed. Depression Clinical Quality Measures DVT/VTE Risk/Contraindication: Risk Factor Score Per Nursin RFS Level Per Nursing on Admit: 4+=Very High Contraindications-Pharm: Other *list below* Stroke: Date of last known well: Jan 28, 2017 Symptoms onset unknown: Yes ANDRES RABAGO DO Jan 31, 2017 07:31
[2017-01-31] MEDS: RT-ALBUTEROL/IPRATROPIUM 3 ML (DUONEB) VIAL INH SCH ×2 (08:00→18:35)
[2017-01-31] MEDS ORDERED: LIDOCAINE 2% VISCOUS 15 ML UDC ONE (08:08)
[2017-01-31] MEDS ORDERED: fentaNYL INJECTION 100 MCG/2 ML AMP ONE (08:08)
[2017-01-31] MEDS ORDERED: MIDAZOLAM 2 MG/2 ML (VERSED) VIAL ONE (08:08)
--- NOTE | 2017-01-31 08:22 | Cardiology Progress Note ---
Subjective Date Seen by Provider: Jan 31, 2017 Time Seen by Provider: 09:00 Subjective/Events-last exam patient is laying down in bed, feeling better today, no residual symptoms. No chest pain or shortness of breath. Review of Systems General: No Chills, No Night Sweats, No Fatigue, No Malaise, No Appetite, No Other HEENT: No Head Aches, No Visual Changes, No Eye Pain, No Ear Pain, No Dysphasia , No Sinus Congestion, No Post Nasal Drip, No Sore Throat, No Other Pulmonary: No Dyspnea, No Cough, No Pleuritic Chest Pain, No Other Cardiovascular: No: Chest Pain, Edema, Lt Headedness, Orthopnea, Other, Palpitations, Paroxysmal Noc. Dyspnea Objective-Cardiology Exam Last Set of Vital Signs Vital Signs 01/28/17 01/31/17 01/31/17 23:36 00:00 06:14 Temp 98.0 Pulse 64 Resp 23 B/P (MAP) 132/70 Pulse Ox 94 O2 Delivery Room Air FiO2 21 Capillary Refill : Less Than 3 Seconds I&O Intake and Output 01/31/17 00:00 Intake Total 320 ml Output Total 3350 ml Balance -3030 ml Intake Oral 320 ml Output Urine Total 3350 ml General: Alert, Oriented X3, Cooperative HEENT: Atraumatic, PERRLA Neck: Supple, No JVD, No Thyromegaly Lungs: Clear to Auscultation, Normal Air Movement Heart: Regular Rate, Normal S1, Normal S2, Other (systolic murmur) Abdomen: Normal Bowel Sounds, Soft, No Tenderness, No Hepatosplenomegaly, No Masses Extremities: No Clubbing, No Cyanosis, No Edema, Normal Pulses, No Tenderness/ Swelling Skin: No Rashes, No Breakdown, No Significant Lesion Neuro: Normal Gait, Normal Speech, Strength at 5/5 X4 Ext, Normal Tone, Sensation Intact Psych/Mental Status: Mental Status NL, Mood NL A/P-Cardiology Admission Diagnosis chest pain TIA CAD Hypertension Assessment/Plan Chest pain, resembling angina, patient has chronic chest pain, feeling better, EKG did not show any acute abnormality or changes from baseline. Continue to monitor at this time. Transient ischemic attack, recent CVA occurred last week. Source is unknown, patient was started on Eliquis on the last admission process patient of cardiac thrombus, the last echo that was done in July 2016 showed questionable healed vegetation on the aortic cusp with moderate aortic regurgitation, it could be the source of his recurrent CVA/TIA, I am planning to proceed with PETER evaluation and restart aspirin and Plavix. The use of Eliquis will increase the risk of bleeding, he does not have any documented atrial fibrillation in the past. carotid ultrasound was reported to have heavy atherosclerotic plaques but no obstructive disease, scheduled for MRA today. PETER showed echogenic density on the left aortic cusp most probably aortic valve sclerosis, unlikely to be healed vegetation. Measuring 0.80.7 centimeters, the valve is functioning normally, LV is normal. Coronary artery disease, cardiac catheterization carried out July 27, 2016 revealed total occlusion of right coronary artery, severe stenosis at the proper circumflex artery, ostial circumflex stenosis, LAD had moderate disease. IVUS showed 60 percent stenosis, underwent stenting to the right coronary artery with excellent results. Patient underwent multiple cardiac catheterizations in the month of July due to his ongoing chest pain. Most recent cardiac catheterization carried out by Dr. Ortiz on August 14, 2016 revealed widely patent stented portion of the RCA which was completely occluded before. 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 Recommended conservative management for the area rather than ballooning it, probably it will thrombose without affecting the stent. Distal circumflex artery with 90 percent stenosis, small vessel supplying very small amount of myocardium. Patient's discomfort is incessant, going on for several weeks, unchanged after the PCI of the RCA. Unlikely that his unrelenting pain is related to this, recommended continuing with medical management. continue on aspirin and Plavix Echocardiogram showed normal LV function, PETER showed echogenic density on the left aortic cusp, valve is functioning normally, unlikely to be the source of his stroke. Hypertension, labile blood pressure, continue to monitor blood pressure Hyperlipidemia, continue on statin and monitor Claudication pain-complains of claudication pain to bilateral lower extremity at distances of 2-3 blocks. Denies any rest pain, ulceration, or gangrene, Normal LOLIS Headache-complains of intermittent headache over the past several months. No change after blood pressure is better controlled. Recommend follow-up with primary care physician. History of elevated LFTs-continue to monitor. GERD with history of gastritis, continue on Protonix Tobaccoism-patient was once again educated on importance of smoking cessation. 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
--- NOTE | 2017-01-31 08:23 | Cardiac Procedure Note-CS/ASA ---
Pre-Procedure Note Pre-Op Procedure Note H&P Reviewed The H&P was reviewed, patient examined and no changes noted. Date H&P Reviewed: Jan 31, 2017 Time H&P Reviewed: 08:22 Conscious Sedation Pre-Proced Time Reviewed: 08:23 ASA Class: 3 Airway Mallampati Classification: ([place] appropriate class) I. II. III, IV Lungs Heart ASA score ASA 1: a normal healthy patient ASA 2: a patient with a mild systemic disease (mid diabetes, controlled hypertension, obesity x ASA 3: a patient with a severe systemic disease that limits activity (angina , COPD, prior Myocardial infarction) ASA 4: a patient with an incapacitating disease that is a constant threat to life (CHF, renal failure) ASA 5: a moribund patient not expected to survive 24 hrs. (ruptured aneurysm) ASA 6: a declared brain patient whose organs are being harvested. For emergent operations, add the letter E after the classification Grade 3 Sedation Plan: Analgesia, Amnesia, Plan communicated to team members, Discussed options with patient/fam, Discussed risks with patient/fam Note The patient is an appropriate candidate to undergo the planned procedure, sedation, and anesthesia. The patient immediately re-assessed prior to indication. ANDREA ELIAS MD Jan 31, 2017 08:23
[2017-01-31] MEDS ORDERED: LIDOCAINE 2% VISCOUS 15 ML UDC PO ONE (08:45)
[2017-01-31] MEDS ORDERED: fentaNYL INJECTION 100 MCG/2 ML AMP IVP ONE (08:45)
[2017-01-31] MEDS ORDERED: MIDAZOLAM 5 MG/5 ML (VERSED) VIAL IVP ONE (08:45)
[2017-01-31] MEDS ORDERED: MIDAZOLAM 2 MG/2 ML (VERSED) VIAL IVP ONE (09:00)
--- NOTE | 2017-01-31 10:32 | Physical Therapy Progress Note ---
Therapy Progress Note Patient still sedated from prior procedure. PT will attempt later on this date. MEKA PIMENTEL PT Jan 31, 2017 10:32
[2017-01-31] MEDS: ACETAMINOPHEN 500 MG TAB (TYLENOL) PO PRN ×2 (10:39→16:17)
[2017-01-31] MEDS: morphine INJ 4 MG/ML 1 ML (VIAL/SYRINGE) IV PRN ×3 (10:40→16:18)
[2017-01-31] MEDS: OMEGA 3 (FISH OIL) 1000 MG CAP PO SCH ×2 (10:43→16:17)
[2017-01-31] MEDS: ASPIRIN E.C. 81 MG (ECOTRIN) TAB PO SCH (10:43)
[2017-01-31] MEDS: CARVEDILOL 3.125 MG (COREG) TABLET PO SCH ×2 (10:43→21:20)
[2017-01-31] MEDS: buPROPion SR 150 MG (WELLBUTRIN SR) TAB PO SCH (10:44)
[2017-01-31] MEDS: amLODIPine 10 MG (NORVASC) TAB PO SCH (10:45)
[2017-01-31] MEDS: SERTRALINE 50 MG (ZOLOFT) TABLET PO SCH (10:45)
[2017-01-31] MEDS: LOSARTAN 50 MG (COZAAR) TAB PO SCH (10:46)
[2017-01-31] MEDS: ISOSORBIDE MONONITRATE 60 MG (IMDUR) TAB PO SCH (10:46)
--- NOTE | 2017-01-31 12:41 | Physical Therapy Evaluation ---
PT Evaluation-General Medical Diagnosis Admission Date Jan 28, 2017 at 21:17 Medical Diagnosis: TIA vs. CVA Onset Date: Jan 28, 2017 Therapy Diagnosis Therapy Diagnosis: debility/weakness Height/Weight Height (Feet): 5 Height (Inches): 9.00 Weight (Pounds): 170 Weight (Ounces): 1.0 Precautions Precautions/Isolations: Fall Prevention, Standard Precautions Referral Physician: Greta Reason for Referral: Evaluation/Treatment Medical History Pertinent Medical History: CAD, HTN, GA, Smoking Additional Medical History prior TIA's Current History right sided weakness, slurred speech Reviewed History: Yes Social History Home: Single Level Current Living Status: Significant Other Entry Into Home: Stairs With Railing PT Steps Into Home: 5 Prior/Core FIM Prior Level of Function Functional [place] Measure 0=Not Assessed/NA 4=Minimal Assistance 1=Total Assistance 5=Supervision or Setup 2=Maximal Assistance 6=Modified [place] 3=Moderate Assistance 7=Complete [place] Bed Mobility: 7 Transfers (B,C,W/C) (FIM): 7 Gait: 7 Locomotion: 7 PT Evaluation-Current Subjective Patient just completed eating and agrees to PT. Pain Numeric Pain Scale: 0-No Pain Location: No Pain Reported Objective Patient Orientation: Normal For Age Problem Solving: Good Attachments: IV ROM/Strength ROM Lower Extremities bilateral LE WNL Strenght Lower Extremities bilateral LE WNL Integumentary/Posture Integumentary refer to nursing notes Bowel Incontinence: No Bladder Incontinence: No Posture WNL Neuromuscular (Tone, Coordination, Reflexes) grossly intact Sensory Vision: Functional Hearing: Functional Sensation Right Lower Extremit: Intact Sensation Left Lower Extremity: Intact Transfers Functional [place] Measure 0=Not Assessed/NA 4=Minimal Assistance 1=Total Assistance 5=Supervision or Setup 2=Maximal Assistance 6=Modified [place] 3=Moderate Assistance 7=Complete [place] Transfers (B, C, W/C) (FIM): 7 Scootin Rollin Supine to/from Sit: 7 Sit to/from Stand: 7 Gait Mode of Locomotion: Walk Anticipated Mode of Locomotion: Walk Gait (FIM): 7 Distance (FIM): 3=150 ft Distance: 300' Gait Level of Assist: 7 Gait Assistive Device: None Comments/Gait Description WNL Balance Sitting Static: Normal Sitting Dynamic: Normal Standing Static: Normal Standing Dynamic: Normal Assessment/Needs 56 y.o. male, will be seen by skilled PT x 2 sessions to ensure gross motor skills remain WNL with all functional mobility. Rehab Potential: Fair PT Short Term Goals Short Term Goals Time Frame: Feb 01, 2017 Transfers (B,C,W/C) (FIM): 7 Gait (FIM): 7 Distance (FIM): 3=150 ft Gait Level of Assist: 7 Gait Assistive Device: None PT Plan Treatment/Plan Treatment Plan: Continue Plan of Care Treatment Plan: Education Treatment Duration: Feb 01, 2017 Frequency: 2 times per week Estimated Hrs Per Day: .25 hour per day Patient and/or Family Agrees t: Yes Discharge Recommendations Therapy D/C Recommendations: Home w/ Family Support Time/GCodes Time In: 1105 Time Out: 1130 Total Billed Treatment Time: 25 Total Billed Treatment 1 visit EVLow 25 min MEKA PIMENTEL PT Jan 31, 2017 12:41
--- NOTE | 2017-01-31 14:47 | Behavioral Health Consult ---
Consult- Consult Time Seen by Provider: 13:40 Patient: Kaz Restrepo : 1960 Date: 01/31/2017 Referral: Dr. Hernandes CPT Code: 32273 Psychodiagnostic Examination, 1 unit(s) Start Time: 1340 Stop Time: 1415 Chief Complaint: Depression Referral: Kaz Restrepo is a 56 year old male referred by Dr. Hernandes for a clinical diagnostic assessment. Information sources for this evaluation include self-report/observation and medical records. Presenting Problem: The presenting clinical problem is Depression. Duration of the current problem since his heart attack six months ago. The primary clinical theme and problem discussed during the appointment was that Mr. Restrepo reports that he became depression after his initial heart attack in July 2016. Since that time he has continued to have declining health and has been unable to return to work. He feels significant stress from not having a regular income and continued illness. Mr. Restrepo denies that he has experienced any similar depression during his lifetime. He was in 1992 and has three adult children and three grandchildren. Mr. Restrepo states that he had four TIAs since Tuesday and that now his drivers license was being taken away. 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 He also expressed disappointment that he would not be allowed to drive his two [employer] motorcycles that he finds winter in. Mr. Restrepo states that he has been on Wellbutrin since July and was started on Zoloft on Tuesday when he was admitted to the hospital. He is uncertain of its effectiveness due to the short period of use. He is interested in outpatient counseling to cope with his life changes and he was given information for making an appointment when he is released. Mr. Restrepo does not have insurance and is completing a workday financials consultant application. He is also interested in filing for disability since he will not be able to return to work due to his health condition. This was passed along to the [facility]. Symptoms observed or reported requiring current level of care include anxiety, depressed mood, medical problems, worry, and worthlessness. Observations/Mental Status: Mr. Restrepo was assessed in his hospital room. His son, Samm, was visiting and left the room during the assessment. The patient was a good historian. Mr. Spring general approach to the evaluation indicated interest. Orientation was intact for person, place, time, and situation. The predominant mood was that of euthymic with affect appropriate to expressed concerns and presenting problem. Immediate attention and concentration was unremarkable clinically during the interview. Level of intellectual functioning compared to same age peers was average range. Thought processes were found to be generally logical, coherent and goal directed. Thought content appeared normal. Psychomotor functioning was within normal limits. Tone of voice was normal and controlled and manner of speech was normal. Expressive speech was marked by fluent speech and language. Current destructive behavior patterns: none reported or indicated. Disturbance in sleep patterns: none reported or indicated. Eye contact was good. Insight was average. Mr. Spring style of interacting during the appointment was appropriate and motivated. Current/Previous Mental Health Treatment: Past psychiatric history: none reported. He has been prescribed Wellbutrin and Zoloft by his primary care provider. History of self or other harm: denied. History of abuse: denied. Medical History: Reported medical conditions included cardiac disease with previous heart attack and stent placement and recent TIA. Current psychotropic medications: Wellbutrin SR 150mg and Zoloft 50mg. Drug allergies: Penicillin G. Current physician is Dr. Hernandes. Recreational Drug Usage: Current use of alcohol or drugs: denied. Summary of Assessment Information/Prognosis: Mr. Spring presenting problem and symptoms appear consistent with a preliminary diagnosis of F43.21 Adjustment Disorder with Depressed Mood at this point. Current emotional symptoms are of moderate intensity. Prognosis is fair. Diagnostic Impressions: ICD-10: F43.21 Adjustment Disorder with Depressed Mood Initial Treatment Plan/Recommendations: The recommendations at this time include the following: individual outpatient psychotherapy. Continue with medication management for depression. Mr. Restrepo verbalized understanding of these recommendations and an intention to comply. [facility] Jan 31, 2017 14:47
[2017-01-31] MEDS ORDERED: GADOBUTROL 7.5 MMOL/7.5 ML (GADAVIST) VIAL IV ONE (15:45)
--- NOTE | 2017-01-31 16:15 | Diagnostic Imaging Report ---
PROCEDURE: MR imaging of the brain with and without contrast. TECHNIQUE: Multiplanar, multisequence MR imaging of the brain was performed with and without contrast. INDICATION: Right-sided weakness. COMPARISON: There are no previous MRI examinations available for comparison. The CT head exam performed on 01/28/2017 failed to show any sign of an acute intracranial abnormality. FINDINGS: On the diffusion series of this exam, there is no abnormal signal arising from the brain that would suggest an area of acute ischemia. There is no mass, shift of midline or hemorrhage identified either. Furthermore, there is no abnormal enhancement on postcontrast series that would indicate a neoplastic or infectious process. The ventricles are not abnormally dilated. There is very mild cortical atrophy present. The degree of atrophy is consistent with the patient's age. There are virtually no areas of abnormal signal in the periventricular white matter that would indicate demyelinating disease or encephalomalacia from microvascular ischemia. The sella is not enlarged and the expected carotid flow voids are evident bilaterally. The seventh and eighth nerve complexes are unremarkable. The sinuses are generally clear. IMPRESSION: 1. There is no evidence for an acute intracranial abnormality. 2. There is no sign of a mass lesion or of demyelinating disease. Dictated by: Dictated on workstation # [id number]
[2017-01-31] MEDS: ATORVASTATIN 10 MG (LIPITOR) TABLET PO SCH (21:20)
[2017-01-31] MEDS: CLOPIDOGREL 75 MG (PLAVIX) TABLET PO SCH (21:20)
[2017-01-31] MEDS: traZODone 100 MG (DESYREL) TAB PO SCH (21:20)
[2017-02-01] VITALS (25 sets, daily range): BP systolic 107–176; BP diastolic 60–125
[2017-02-01] MEDS: morphine INJ 4 MG/ML 1 ML (VIAL/SYRINGE) IV PRN ×2 (02:07→09:34)
[2017-02-01] MEDS: ACETAMINOPHEN 500 MG TAB (TYLENOL) PO PRN ×3 (02:07→15:11)
[2017-02-01 05:22] LABS: BASOPHILS % (AUTO) 0 % (0-10); EOSINOPHILS # (AUTO) 0.4 10^3/uL (0.0-0.3); EOSINOPHILS % (AUTO) 7 % (0-10); LYMPHOCYTES # (AUTO) 1.4 X 10^3 (1.0-4.0); LYMPHOCYTES % (AUTO) 27 % (12-44); MEAN CORPUSCULAR HEMOGLOBIN 31 PG (25-34); MEAN CORPUSCULAR HGB CONC 33 G/DL (32-36); MEAN CORPUSCULAR VOLUME 93 FL (80-99); MEAN PLATELET VOLUME 9.5 FL (7.4-10.4); MONOCYTES # (AUTO) 0.4 X 10^3 (0.0-1.0); MONOCYTES % (AUTO) 8 % (0-12); NEUTROPHILS # (AUTO) 2.9 X 10^3 (1.8-7.8); NEUTROPHILS % (AUTO) 58 % (42-75); PLATELET COUNT 319 10^3/uL (130-400); RED BLOOD COUNT 3.71 10^6/uL (4.35-5.85); RED CELL DISTRIBUTION WIDTH 12.5 % (10.0-14.5); WHITE BLOOD COUNT 5.1 10^3/uL (4.3-11.0)
[2017-02-01 05:47] LABS: ANION GAP 9 MMOL/L (5-14); BLOOD UREA NITROGEN 16 MG/DL (7-18); BUN/CREATININE RATIO 14; CALCIUM 8.6 MG/DL (8.5-10.1); CARBON DIOXIDE 26 MMOL/L (21-32); CHLORIDE 105 MMOL/L (98-107); CREATININE SERUM 1.15 MG/DL (0.60-1.30); GFR ESTIMATED > 60; GLUCOSE 130 MG/DL (70-105); MAGNESIUM 1.8 MG/DL (1.8-2.4); PHOSPHORUS 3.7 MG/DL (2.3-4.7); POTASSIUM 4.2 MMOL/L (3.6-5.0); SODIUM 140 MMOL/L (135-145)
[2017-02-01] MEDS: MAGNESIUM 1 GM/100 ML IVPB 100 ML IV SCH (06:09)
[2017-02-01] MEDS: POTASSIUM CL 10MEQ/50ML IVPB 50 ML IV SCH (06:09)
[2017-02-01] MEDS: KCL 20 MEQ TAB (K-DUR) PO SCH (06:10)
[2017-02-01] MEDS: OMEGA 3 (FISH OIL) 1000 MG CAP PO SCH ×3 (06:33→18:18)
[2017-02-01] MEDS: NS IV 1000 ML 1,000 ML IV SCH (06:35)
--- NOTE | 2017-02-01 07:31 | Progress Note (SOAP) ---
Subjective Time Seen by Provider: 07:20 Subjective/Events-last exam patient feeling better today. Patient not having any chest pain. MRI of the head negative for CVA. Patient gets transient ischemic attacks when blood pressure becomes malignant hypertension. Patient seen by psychologist for depression Objective Exam Vital Signs Date Time Temp Pulse Resp B/P (MAP) Pulse Ox O2 Delivery O2 Flow Rate FiO2 02/01/17 06:00 56 9 111/62 94 Room Air 02/01/17 05:00 60 12 156/84 95 Room Air 02/01/17 04:02 97.5 02/01/17 04:00 Room Air 02/01/17 04:00 59 12 131/82 91 Room Air 02/01/17 03:00 56 9 116/68 94 Room Air 02/01/17 02:00 54 13 176/83 97 Room Air 02/01/17 01:00 57 02/01/17 01:00 60 14 110/74 94 Room Air 02/01/17 00:46 97.0 02/01/17 00:00 58 12 128/78 93 Room Air 02/01/17 00:00 Room Air 01/31/17 23:00 61 12 130/78 91 Room Air 01/31/17 22:00 62 11 119/60 92 Room Air 01/31/17 21:00 65 10 126/57 93 Room Air 01/31/17 20:00 63 9 155/95 98 Room Air 01/31/17 20:00 Room Air 01/31/17 19:52 97.5 62 16 138/90 94 Room Air 01/31/17 19:00 64 12 147/81 95 Room Air 01/31/17 19:00 62 01/31/17 18:35 96 Room Air 01/31/17 18:00 64 12 131/72 95 Room Air 01/31/17 17:00 75 20 107/76 96 Room Air 01/31/17 16:42 98.4 01/31/17 16:00 Room Air 01/31/17 16:00 60 10 154/85 93 Room Air 01/31/17 15:00 57 7 135/67 94 Room Air 01/31/17 14:56 66 94 21 01/31/17 14:00 63 16 146/73 95 Room Air 01/31/17 13:00 65 11 130/77 94 Room Air 01/31/17 13:00 66 01/31/17 12:30 97.6 01/31/17 12:00 66 16 124/82 94 Room Air 01/31/17 12:00 Room Air 01/31/17 11:00 68 27 161/94 96 Room Air 01/31/17 10:00 54 12 175/91 95 Room Air 01/31/17 09:00 55 11 139/93 95 Room Air 01/31/17 08:00 97.6 64 14 141/83 93 Room Air 01/31/17 08:00 Room Air I & O 02/01/17 07:00 Intake Total 1354 ml Output Total 2950 ml Balance -1596 ml Capillary Refill : Less Than 3 Seconds General Appearance: No Apparent Distress, WD/WN HEENT: Normal ENT Inspection Neck: Full Range of Motion, Normal Inspection, Non Tender, Supple Respiratory: Chest Non Tender, Lungs Clear, Normal Breath Sounds, No Accessory Muscle Use, No Respiratory Distress Cardiovascular: Regular Rate, Rhythm, No Murmur Gastrointestinal: non tender, soft Results Lab Laboratory Tests 02/01/17 05:00: White Blood Count 5.1, Red Blood Count 3.71L, Hemoglobin 11.3L, Hematocrit 34L, Mean Corpuscular Volume 93, Mean Corpuscular Hemoglobin 31, Mean Corpuscular Hemoglobin Concent 33, Red Cell Distribution Width 12.5, Platelet Count 319, Mean Platelet Volume 9.5, Neutrophils (%) (Auto) 58, Lymphocytes (%) (Auto) 27, Monocytes (%) (Auto) 8, Eosinophils (%) (Auto) 7, Basophils (%) (Auto) 0, Neutrophils # (Auto) 2.9, Lymphocytes # (Auto) 1.4, Monocytes # (Auto) 0.4, Eosinophils # (Auto) 0.4H, Basophils # (Auto) 0.0, Sodium Level 140, Potassium Level 4.2, Chloride Level 105, Carbon Dioxide Level 26, Anion Gap 9, Blood Urea Nitrogen 16, Creatinine 1.15, Estimat Glomerular Filtration Rate > 60, BUN/ Creatinine Ratio 14, Glucose Level 130H, Calcium Level 8.6, Phosphorus Level 3.7 , Magnesium Level 1.8 Microbiology 01/28/17 Urine Culture - Final, Complete NO GROWTH Assessment/Plan Assessment/Plan Assess & Plan/Chief Complaint malignant hypertension. CVA versus TIA Coronary artery disease. Patient moving all extremities now. Drooping of mouth. Good speech. Patient feeling better today and less depressed. Depression. . 02/01/17. Transient ischemic attack. Depression. Coronary artery disease. Malignant hypertension. Patient needs follow-up with mental health. Patient needs antidepressant now on Zoloft. Clinical Quality Measures DVT/VTE Risk/Contraindication: Risk Factor Score Per Nursin RFS Level Per Nursing on Admit: 2=Moderate Contraindications-Pharm: Other *list below* Stroke: Date of last known well: Jan 28, 2017 Symptoms onset unknown: Yes ANDRES RABAGO DO Feb 01, 2017 07:31
--- NOTE | 2017-02-01 08:39 | Diagnostic Imaging Report ---
EXAMINATION: Portable erect AP chest at 558h. INDICATION: Dyspnea The heart size is within normal limits and stable when compared to 01/28/17. The lungs remain generally clear. There is still no sign of failure, pneumonia or a pleural effusion. The mediastinum is not widened. The osseous structures are intact. IMPRESSION: There is no evidence for active disease. When compared to the prior study there does not appear to have been any significant change. Dictated by: Dictated on workstation # [id number]
[2017-02-01] MEDS: ASPIRIN E.C. 81 MG (ECOTRIN) TAB PO SCH (08:44)
[2017-02-01] MEDS: amLODIPine 10 MG (NORVASC) TAB PO SCH (08:44)
[2017-02-01] MEDS: CARVEDILOL 3.125 MG (COREG) TABLET PO SCH ×2 (08:44→20:11)
[2017-02-01] MEDS: buPROPion SR 150 MG (WELLBUTRIN SR) TAB PO SCH (08:45)
[2017-02-01] MEDS: SERTRALINE 50 MG (ZOLOFT) TABLET PO SCH (08:45)
[2017-02-01] MEDS: LOSARTAN 50 MG (COZAAR) TAB PO SCH (08:46)
[2017-02-01] MEDS: ISOSORBIDE MONONITRATE 60 MG (IMDUR) TAB PO SCH (08:47)
--- NOTE | 2017-02-01 09:19 | Physical Therapy Daily Note ---
PT Daily Note-Current Subjective Patient is in bed and agrees to PT. He states his BP is still elevated. Pain Numeric Pain Scale: 0-No Pain Location: No Pain Reported Mental Status Patient Orientation: Normal For Age Attachments: IV Transfers Functional [place] Measure 0=Not Assessed/NA 4=Minimal Assistance 1=Total Assistance 5=Supervision or Setup 2=Maximal Assistance 6=Modified [place] 3=Moderate Assistance 7=Complete IndependenceIRFPAI Quality Coding Scale 6 Independent with activity with or without an assistive device 5 Patient requires set up or clean up by helper. Patient completes activity by themselves 4 Supervision or touching assist (CGA). [place] provide cues , steadying assist 3 The helper provides less than half the effort to complete the activity 2 The helper provides more than half the effort to complete the activity 1 Dependent. The helper does all the effort to complete an activity 7 Patient refused to complete or attempt activity 9 The patient did not perform the activity before the current illness or injury 88 Not attempted due to Medical conditions or safety concerns Transfers (B, C, W/C) (FIM): 7 Scootin Supine to/from Sit: 7 Sit to/from Stand: 7 Gait Training Gait (FIM): 7 Distance (FIM): 3=150 ft Distance: 300' Gait Level of Assist: 7 Gait Assistive Device: None safe and functional (PLOF) Assessment Patient is currently at independent PLOF with all gross motor skills safely and does not require skilled therapy at this time. PT to dismiss from services. PT Short Term Goals Short Term Goals Time Frame: Feb 01, 2017 Transfers (B,C,W/C) (FIM): 7 Gait (FIM): 7 Distance (FIM): 3=150 ft Gait Level of Assist: 7 Gait Assistive Device: None PT Plan Treatment/Plan Treatment Plan: Discontinue PT, goals met Treatment Plan: Education Treatment Duration: Feb 01, 2017 Frequency: 2 times per week Estimated Hrs Per Day: .25 hour per day Patient and/or Family Agrees t: Yes Time/GCodes Time In: 847 Time Out: 857 Total Billed Treatment Time: 10 Total Billed Treatment 1 visit FA 10 min MEKA PIMENTEL PT Feb 01, 2017 09:19
[2017-02-01] MEDS: RT-ALBUTEROL/IPRATROPIUM 3 ML (DUONEB) VIAL INH SCH ×2 (09:57→19:51)
--- NOTE | 2017-02-01 15:14 | Cardiology Progress Note ---
Subjective Date Seen by Provider: Feb 01, 2017 Time Seen by Provider: 15:12 Subjective/Events-last exam patient is laying down in bed, still having labile blood pressure with episode of headache and elevated blood pressure. Otherwise, his blood pressure is under good control. He is bradycardic and cannot tolerate higher dose of beta blockers Review of Systems General: No Chills, No Night Sweats, No Fatigue, No Malaise, No Appetite, No Other HEENT: Head Aches, No Visual Changes, No Eye Pain, No Ear Pain, No Dysphasia, No Sinus Congestion, No Post Nasal Drip, No Sore Throat, No Other Pulmonary: No Dyspnea, No Cough, No Pleuritic Chest Pain, No Other Cardiovascular: No: Chest Pain, Edema, Lt Headedness, Orthopnea, Other, Palpitations, Paroxysmal Noc. Dyspnea Objective-Cardiology Exam Last Set of Vital Signs Vital Signs 01/31/17 02/01/17 02/01/17 14:56 11:50 15:00 Temp 97.8 Pulse 64 Resp 15 B/P (MAP) 158/79 Pulse Ox 95 O2 Delivery Room Air FiO2 21 Capillary Refill : Less Than 3 Seconds I&O Intake and Output 02/01/17 00:00 Intake Total 2754 ml Output Total 2550 ml Balance 204 ml Intake Oral 1754 ml IV Total 1000 ml Output Urine Total 2550 ml General: Alert, Oriented X3, Cooperative HEENT: Atraumatic, PERRLA Neck: Supple, No JVD, No Thyromegaly Lungs: Clear to Auscultation, Normal Air Movement Heart: Regular Rate, Normal S1, Normal S2, Other (systolic murmur) Abdomen: Normal Bowel Sounds, Soft, No Tenderness, No Hepatosplenomegaly, No Masses Extremities: No Clubbing, No Cyanosis, No Edema, Normal Pulses, No Tenderness/ Swelling Skin: No Rashes, No Breakdown, No Significant Lesion Neuro: Normal Gait, Normal Speech, Strength at 5/5 X4 Ext, Normal Tone, Sensation Intact Psych/Mental Status: Mental Status NL, Mood NL Results Lab Laboratory Tests 02/01/17 05:00 A/P-Cardiology Admission Diagnosis chest pain TIA CAD Hypertension Assessment/Plan Chest pain, resembling angina, patient has chronic chest pain, feeling better, EKG did not show any acute abnormality or changes from baseline. Continue to monitor at this time. Transient ischemic attack, recent CVA occurred last week. Source is unknown, patient was started on Eliquis on the last admission process patient of cardiac thrombus, the last echo that was done in July 2016 showed questionable healed vegetation on the aortic cusp with moderate aortic regurgitation, it could be the source of his recurrent CVA/TIA, I am planning to proceed with PETER evaluation and restart aspirin and Plavix. The use of Eliquis will increase the risk of bleeding, he does not have any documented atrial fibrillation in the past. carotid ultrasound was reported to have heavy atherosclerotic plaques but no obstructive disease, scheduled for MRA today. PETER showed echogenic density on the left aortic cusp most probably aortic valve sclerosis, unlikely to be healed vegetation. Measuring 0.80.7 centimeters, the valve is functioning normally, LV is normal. Coronary artery disease, cardiac catheterization carried out July 27, 2016 revealed total occlusion of right coronary artery, severe stenosis at the proper circumflex artery, ostial circumflex stenosis, LAD had moderate disease. IVUS showed 60 percent stenosis, underwent stenting to the right coronary artery with excellent results. Patient underwent multiple cardiac catheterizations in the month of July due to his ongoing chest pain. Most recent cardiac catheterization carried out by Dr. Ortiz on August 14, 2016 revealed widely patent stented portion of the RCA which was completely occluded before. 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 Recommended conservative management for the area rather than ballooning it, probably it will thrombose without affecting the stent. Distal circumflex artery with 90 percent stenosis, small vessel supplying very small amount of myocardium. Patient's discomfort is incessant, going on for several weeks, unchanged after the PCI of the RCA. Unlikely that his unrelenting pain is related to this, recommended continuing with medical management. continue on aspirin and Plavix Echocardiogram showed normal LV function, PETER showed echogenic density on the left aortic cusp, valve is functioning normally, unlikely to be the source of his stroke. Hypertension, labile blood pressure, becoming symptomatic with elevated blood pressure. I will start clonidine and monitor heart rate and blood pressure closely. Hyperlipidemia, continue on statin and monitor Claudication pain-complains of claudication pain to bilateral lower extremity at distances of 2-3 blocks. Denies any rest pain, ulceration, or gangrene, Normal LOLIS Headache-complains of intermittent headache over the past several months. No change after blood pressure is better controlled. Recommend follow-up with primary care physician. History of elevated LFTs-continue to monitor. GERD with history of gastritis, continue on Protonix Tobaccoism-patient was once again educated on importance of smoking cessation. 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
[2017-02-01] MEDS: ATORVASTATIN 10 MG (LIPITOR) TABLET PO SCH (20:11)
[2017-02-01] MEDS: traZODone 100 MG (DESYREL) TAB PO SCH (20:12)
[2017-02-01] MEDS: cloNIDine 0.1 MG (CATAPRES) TAB PO SCH (20:12)
[2017-02-01] MEDS: CLOPIDOGREL 75 MG (PLAVIX) TABLET PO SCH (20:12)
[2017-02-01] MEDS: APAP 300 MG/CODEINE 30 MG (TYLENOL #3) TAB PO PRN (20:17)
[2017-02-02] VITALS (16 sets, daily range): BP systolic 104–183; BP diastolic 51–101
[2017-02-02] MEDS ORDERED: hydrALAZINE (APESOLINE) 20 MG/ML VIAL ONE (01:14)
[2017-02-02] MEDS: APAP 300 MG/CODEINE 30 MG (TYLENOL #3) TAB PO PRN (03:27)
[2017-02-02 04:48] LABS: BASOPHILS % (AUTO) 0 % (0-10); EOSINOPHILS # (AUTO) 0.4 10^3/uL (0.0-0.3); EOSINOPHILS % (AUTO) 5 % (0-10); LYMPHOCYTES # (AUTO) 1.2 X 10^3 (1.0-4.0); LYMPHOCYTES % (AUTO) 14 % (12-44); MEAN CORPUSCULAR HEMOGLOBIN 30 PG (25-34); MEAN CORPUSCULAR HGB CONC 33 G/DL (32-36); MEAN CORPUSCULAR VOLUME 92 FL (80-99); MEAN PLATELET VOLUME 9.5 FL (7.4-10.4); MONOCYTES # (AUTO) 0.5 X 10^3 (0.0-1.0); MONOCYTES % (AUTO) 6 % (0-12); NEUTROPHILS # (AUTO) 6.7 X 10^3 (1.8-7.8); NEUTROPHILS % (AUTO) 76 % (42-75); PLATELET COUNT 310 10^3/uL (130-400); RED BLOOD COUNT 3.99 10^6/uL (4.35-5.85); RED CELL DISTRIBUTION WIDTH 12.3 % (10.0-14.5); WHITE BLOOD COUNT 8.8 10^3/uL (4.3-11.0)
[2017-02-02 05:07] LABS: ANION GAP 11 MMOL/L (5-14); BLOOD UREA NITROGEN 15 MG/DL (7-18); BUN/CREATININE RATIO 13; CARBON DIOXIDE 24 MMOL/L (21-32); CHLORIDE 107 MMOL/L (98-107); CREATININE SERUM 1.17 MG/DL (0.60-1.30); GFR ESTIMATED > 60; GLUCOSE 119 MG/DL (70-105); MAGNESIUM 2.4 MG/DL (1.8-2.4); PHOSPHORUS 2.7 MG/DL (2.3-4.7); POTASSIUM 3.7 MMOL/L (3.6-5.0); SODIUM 142 MMOL/L (135-145)
[2017-02-02] MEDS: KCL 20 MEQ TAB (K-DUR) PO SCH (06:00)
[2017-02-02] MEDS: POTASSIUM CL 10MEQ/50ML IVPB 50 ML IV SCH (06:00)
[2017-02-02] MEDS: MAGNESIUM 1 GM/100 ML IVPB 100 ML IV SCH (06:00)
[2017-02-02] MEDS: OMEGA 3 (FISH OIL) 1000 MG CAP PO SCH ×2 (07:12→17:07)
[2017-02-02] MEDS: NS IV 1000 ML 1,000 ML IV SCH (07:15)
[2017-02-02] MEDS: RT-ALBUTEROL/IPRATROPIUM 3 ML (DUONEB) VIAL INH SCH ×2 (07:18→21:12)
--- NOTE | 2017-02-02 07:29 | Progress Note (SOAP) ---
Subjective Time Seen by Provider: 07:15 Subjective/Events-last exam patient feels okay this morning. Patient still states he feels has the same amount. Patient last night had an episode elevated blood pressure with headache. Patient started on clonidine yesterday. Transfusions global amnesia. Coronary artery disease. History of malignant hypertension. Objective Exam Vital Signs Date Time Temp Pulse Resp B/P (MAP) Pulse Ox O2 Delivery O2 Flow Rate FiO2 02/02/17 06:00 68 14 145/74 Room Air 02/02/17 05:00 66 8 135/89 97 Room Air 02/02/17 04:00 97.9 73 10 142/73 96 Room Air 02/02/17 04:00 Room Air 02/02/17 03:00 71 8 163/79 97 Room Air 02/02/17 02:00 74 15 158/92 96 Room Air 02/02/17 01:00 61 11 104/51 95 Room Air 02/02/17 01:00 63 02/02/17 00:00 Room Air 02/02/17 00:00 56 10 183/101 91 Room Air 02/01/17 23:00 97.3 55 11 142/78 95 Room Air 02/01/17 22:00 61 13 111/64 96 Room Air 02/01/17 21:00 59 14 107/65 95 Room Air 02/01/17 21:00 Room Air 02/01/17 20:00 98.8 Room Air 02/01/17 20:00 67 14 146/76 97 Room Air 02/01/17 20:00 Room Air 02/01/17 19:51 96 Room Air 02/01/17 19:00 75 02/01/17 19:00 69 13 135/71 93 Room Air 02/01/17 18:00 68 14 127/70 94 Room Air 02/01/17 17:20 Room Air 02/01/17 17:00 73 12 137/67 94 Room Air 02/01/17 16:16 98.0 66 14 113/60 93 Room Air 02/01/17 15:00 64 15 158/79 95 Room Air 02/01/17 14:00 58 13 127/73 97 Room Air 02/01/17 13:00 62 02/01/17 13:00 59 13 119/60 96 Room Air 02/01/17 12:00 57 19 145/81 97 Room Air 02/01/17 11:50 Room Air 02/01/17 11:50 97.8 02/01/17 11:00 56 9 139/74 97 Room Air 02/01/17 10:00 56 13 129/77 100 Room Air 02/01/17 09:57 98 Room Air 02/01/17 09:30 66 11 159/91 96 Room Air 02/01/17 09:00 67 12 170/125 98 Room Air 02/01/17 08:00 57 21 151/89 97 Room Air 02/01/17 07:47 98.7 02/01/17 07:45 Room Air I & O 02/03/17 07:00 Intake Total 990 ml Balance 990 ml Capillary Refill : Less Than 3 Seconds General Appearance: No Apparent Distress, WD/WN, Thin HEENT: Normal ENT Inspection Neck: Full Range of Motion, Normal Inspection Respiratory: Chest Non Tender, No Accessory Muscle Use, No Respiratory Distress Cardiovascular: Regular Rate, Rhythm, No Murmur Gastrointestinal: non tender, soft Results Lab Laboratory Tests 02/02/17 04:33 Laboratory Tests 02/02/17 04:33: White Blood Count 8.8, Red Blood Count 3.99L, Hemoglobin 12.0L, Hematocrit 37L, Mean Corpuscular Volume 92, Mean Corpuscular Hemoglobin 30, Mean Corpuscular Hemoglobin Concent 33, Red Cell Distribution Width 12.3, Platelet Count 310, Mean Platelet Volume 9.5, Neutrophils (%) (Auto) 76H, Lymphocytes (%) (Auto) 14 , Monocytes (%) (Auto) 6, Eosinophils (%) (Auto) 5, Basophils (%) (Auto) 0, Neutrophils # (Auto) 6.7, Lymphocytes # (Auto) 1.2, Monocytes # (Auto) 0.5, Eosinophils # (Auto) 0.4H, Basophils # (Auto) 0.0, Sodium Level 142, Potassium Level 3.7, Chloride Level 107, Carbon Dioxide Level 24, Anion Gap 11, Blood Urea Nitrogen 15, Creatinine 1.17, Estimat Glomerular Filtration Rate > 60, BUN/ Creatinine Ratio 13, Glucose Level 119H, Calcium Level 9.0, Phosphorus Level 2.7 , Magnesium Level 2.4 Microbiology 01/28/17 Urine Culture - Final, Complete NO GROWTH Radiology NAME: EZEQUIEL VITALE [facility] REC#: [id number] PT STATUS: ADM IN : 1960 PHYSICIAN: ANDRES RABAGO DO ADMIT DATE: 01/28/17/ICU Signed Date of Exam: 02/01/17 CHEST 1 VIEW, AP/PA ONLY EXAMINATION: Portable erect AP chest at 558h. INDICATION: Dyspnea The heart size is within normal limits and stable when compared to 01/28/17. The lungs remain generally clear. There is still no sign of failure, pneumonia or a pleural effusion. The mediastinum is not widened. The osseous structures are intact. IMPRESSION: There is no evidence for active disease. When compared to the prior study there does not appear to have been any significant change. Dictated by: Dictated on workstation # [id number] Dict: 02/01/1729 Trans: 02/01/1755 Interpreted by: MARILU ART MD Electronically signed by: MARILU ART MD 02/01/17 0855 Assessment/Plan Assessment/Plan Assess & Plan/Chief Complaint malignant hypertension. CVA versus TIA Coronary artery disease. Patient moving all extremities now. Drooping of mouth. Good speech. Patient feeling better today and less depressed. Depression. . 02/01/17. Transient ischemic attack. Depression. Coronary artery disease. Malignant hypertension. Patient needs follow-up with mental health. Patient needs antidepressant now on Zoloft.. . 02/02/17. transient ischemic attack. Malignant hypertension. Depression.. Transient global amnesia. Patient had episode of hypertension last night at 830 p.m. with headache. Patient started on clonidine yesterday Clinical Quality Measures DVT/VTE Risk/Contraindication: Risk Factor Score Per Nursin RFS Level Per Nursing on Admit: 2=Moderate Contraindications-Pharm: Other *list below* Stroke: Date of last known well: Jan 28, 2017 Symptoms onset unknown: Yes ANDRES RABAGO DO Feb 02, 2017 07:29
--- NOTE | 2017-02-02 08:21 | Cardiology Progress Note ---
Subjective Date Seen by Provider: Feb 02, 2017 Time Seen by Provider: 08:20 Subjective/Events-last exam Patient had another episodes of headache and elevated blood pressure, received the first dose of clonidine last night, will continue monitoring, if needed I will increase the clonidine dose, transferred to medical floor today. Review of Systems General: No Chills, No Night Sweats, No Fatigue, No Malaise, No Appetite, No Other HEENT: No Head Aches, No Visual Changes, No Eye Pain, No Ear Pain, No Dysphasia , No Sinus Congestion, No Post Nasal Drip, No Sore Throat, No Other Pulmonary: No Dyspnea, No Cough, No Pleuritic Chest Pain, No Other Cardiovascular: No: Chest Pain, Palpitations, Orthopnea, Paroxysmal Noc. Dyspnea, Edema, Lt Headedness, Other Objective-Cardiology Exam Last Set of Vital Signs Vital Signs 01/31/17 02/02/17 02/02/17 14:56 06:00 07:18 Pulse 68 Resp 14 B/P (MAP) 145/74 Pulse Ox 95 O2 Delivery Room Air FiO2 21 Capillary Refill : Less Than 3 Seconds I&O Intake and Output 02/03/17 00:00 Intake Total 1240 ml Output Total 600 ml Balance 640 ml Intake Oral 250 ml IV Total 990 ml Output Urine Total 600 ml General: Alert, Oriented X3, Cooperative HEENT: Atraumatic, PERRLA Neck: Supple, No JVD, No Thyromegaly Lungs: Clear to Auscultation, Normal Air Movement Heart: Regular Rate, Normal S1, Normal S2, Other (systolic murmur) Abdomen: Normal Bowel Sounds, Soft, No Tenderness, No Hepatosplenomegaly, No Masses Extremities: No Clubbing, No Cyanosis, No Edema, Normal Pulses, No Tenderness/ Swelling Skin: No Rashes, No Breakdown, No Significant Lesion Neuro: Normal Gait, Normal Speech, Strength at 5/5 X4 Ext, Normal Tone, Sensation Intact Psych/Mental Status: Mental Status NL, Mood NL Results Lab Laboratory Tests 02/02/17 04:33 A/P-Cardiology Admission Diagnosis chest pain TIA CAD Hypertension Assessment/Plan Chest pain, resembling angina, patient has chronic chest pain, feeling better, EKG did not show any acute abnormality or changes from baseline. Continue to monitor at this time. Transient ischemic attack, recent CVA occurred last week. Source is unknown, patient was started on Eliquis on the last admission process patient of cardiac thrombus, the last echo that was done in July 2016 showed questionable healed vegetation on the aortic cusp with moderate aortic regurgitation, it could be the source of his recurrent CVA/TIA, I am planning to proceed with PETER evaluation and restart aspirin and Plavix. The use of Eliquis will increase the risk of bleeding, he does not have any documented atrial fibrillation in the past. carotid ultrasound was reported to have heavy atherosclerotic plaques but no obstructive disease, scheduled for MRA today. PETER showed echogenic density on the left aortic cusp most probably aortic valve sclerosis, unlikely to be healed vegetation. Measuring 0.80.7 centimeters, the valve is functioning normally, LV is normal. Coronary artery disease, cardiac catheterization carried out July 27, 2016 revealed total occlusion of right coronary artery, severe stenosis at the proper circumflex artery, ostial circumflex stenosis, LAD had moderate disease. IVUS showed 60 percent stenosis, underwent stenting to the right coronary artery with excellent results. Patient underwent multiple cardiac catheterizations in the month of July due to his ongoing chest pain. Most recent cardiac catheterization carried out by Dr. Ortiz on August 14, 2016 revealed widely patent stented portion of the RCA which was completely occluded before. 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 Recommended conservative management for the area rather than ballooning it, probably it will thrombose without affecting the stent. Distal circumflex artery with 90 percent stenosis, small vessel supplying very small amount of myocardium. Patient's discomfort is incessant, going on for several weeks, unchanged after the PCI of the RCA. Unlikely that his unrelenting pain is related to this, recommended continuing with medical management. continue on aspirin and Plavix Echocardiogram showed normal LV function, PETER showed echogenic density on the left aortic cusp, valve is functioning normally, unlikely to be the source of his stroke. Hypertension, labile blood pressure, becoming symptomatic with elevated blood pressure. continue on clonidine and increase the dose if needed, monitor blood pressure Hyperlipidemia, continue on statin and monitor Claudication pain-complains of claudication pain to bilateral lower extremity at distances of 2-3 blocks. Denies any rest pain, ulceration, or gangrene, Normal LOLIS Headache-complains of intermittent headache over the past several months. No change after blood pressure is better controlled. Recommend follow-up with primary care physician. History of elevated LFTs-continue to monitor. GERD with history of gastritis, continue on Protonix Tobaccoism-patient was once again educated on importance of smoking cessation. 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
--- NOTE | 2017-02-02 08:25 | Diagnostic Imaging Report ---
INDICATION: Dyspnea. Compare 02/01/2017 FINDINGS: The lungs are clear. The heart and vessels normal. There is no effusion or pneumothorax. IMPRESSION: No acute appearing abnormality Dictated by: Dictated on workstation # [id number]
[2017-02-02] MEDS: cloNIDine 0.1 MG (CATAPRES) TAB PO SCH ×2 (08:26→19:53)
[2017-02-02] MEDS: ASPIRIN E.C. 81 MG (ECOTRIN) TAB PO SCH (08:26)
[2017-02-02] MEDS: CARVEDILOL 3.125 MG (COREG) TABLET PO SCH ×2 (08:26→19:53)
[2017-02-02] MEDS: ISOSORBIDE MONONITRATE 60 MG (IMDUR) TAB PO SCH (08:27)
[2017-02-02] MEDS: SERTRALINE 50 MG (ZOLOFT) TABLET PO SCH (08:28)
[2017-02-02] MEDS: amLODIPine 10 MG (NORVASC) TAB PO SCH (08:29)
[2017-02-02] MEDS: buPROPion SR 150 MG (WELLBUTRIN SR) TAB PO SCH (08:30)
[2017-02-02] MEDS: LOSARTAN 50 MG (COZAAR) TAB PO SCH (08:30)
[2017-02-02] MEDS: ACETAMINOPHEN 500 MG TAB (TYLENOL) PO PRN (17:08)
[2017-02-02] MEDS: ATORVASTATIN 10 MG (LIPITOR) TABLET PO SCH (19:53)
[2017-02-02] MEDS: traZODone 100 MG (DESYREL) TAB PO SCH (19:53)
[2017-02-02] MEDS: CLOPIDOGREL 75 MG (PLAVIX) TABLET PO SCH (19:53)
[2017-02-03 03:34] VITALS: BP 149/78
[2017-02-03] MEDS: KCL 20 MEQ TAB (K-DUR) PO SCH (06:00)
[2017-02-03] MEDS: OMEGA 3 (FISH OIL) 1000 MG CAP PO SCH (06:07)
[2017-02-03] MEDS: RT-ALBUTEROL/IPRATROPIUM 3 ML (DUONEB) VIAL INH SCH (07:20)
[2017-02-03] MEDS ORDERED: CATHETER FLUSH 10 ML SYR IV PRN (08:00)
--- NOTE | 2017-02-03 08:01 | Progress Note (SOAP) ---
Subjective Time Seen by Provider: 07:55 Subjective/Events-last exam patient states when his blood pressure systolic goes above 160 gets a headache. Patient had 3 episodes yesterday of not feeling good with headache. Patient said his right side of face swells and drooping of his mouth from his right side. Patient feeling better today Objective Exam Vital Signs Date Time Temp Pulse Resp B/P (MAP) Pulse Ox O2 Delivery O2 Flow Rate FiO2 02/03/17 07:20 94 Room Air 02/03/17 07:00 60 02/03/17 05:53 63 95 21 02/03/17 03:34 97.0 63 18 149/78 97 Room Air 02/03/17 01:00 60 02/02/17 23:06 96.6 55 20 117/62 95 Room Air 02/02/17 21:13 92 Room Air 02/02/17 20:31 Room Air 02/02/17 19:25 97.0 71 20 174/83 97 Room Air 02/02/17 19:00 53 02/02/17 16:40 157/74 02/02/17 16:00 97.9 60 18 172/90 97 Room Air 02/02/17 13:45 60 02/02/17 11:00 61 12 115/60 93 Room Air 02/02/17 10:00 68 14 107/62 96 Room Air 02/02/17 09:00 72 25 143/80 98 Room Air 02/02/17 08:00 98.7 81 12 169/81 99 Room Air Capillary Refill : Less Than 3 Seconds General Appearance: No Apparent Distress, Thin HEENT: Normal ENT Inspection Neck: Full Range of Motion, Normal Inspection, Non Tender Respiratory: Chest Non Tender, Lungs Clear, Normal Breath Sounds, No Accessory Muscle Use, No Respiratory Distress Cardiovascular: Regular Rate, Rhythm, No Murmur Gastrointestinal: non tender, soft Results Lab Microbiology 01/28/17 Urine Culture - Final, Complete NO GROWTH Radiology EZEQUIEL VITALE [facility] REC#: [id number] PT STATUS: ADM IN : 1960 PHYSICIAN: ANDRES RABAGO DO ADMIT DATE: 01/28/17/ICU Signed Date of Exam: 01/31/17 MRI BRAIN W/WO CONTRAST PROCEDURE: MR imaging of the brain with and without contrast. TECHNIQUE: Multiplanar, multisequence MR imaging of the brain was performed with and without contrast. INDICATION: Right-sided weakness. COMPARISON: There are no previous MRI examinations available for comparison. The CT head exam performed on 01/28/2017 failed to show any sign of an acute intracranial abnormality. FINDINGS: On the diffusion series of this exam, there is no abnormal signal arising from the brain that would suggest an area of acute ischemia. There is no mass, shift of midline or hemorrhage identified either. Furthermore, there is no abnormal enhancement on postcontrast series that would indicate a neoplastic or infectious process. The ventricles are not abnormally dilated. There is very mild cortical atrophy present. The degree of atrophy is consistent with the patient's age. There are virtually no areas of abnormal signal in the periventricular white matter that would indicate demyelinating disease or encephalomalacia from microvascular ischemia. The sella is not enlarged and the expected carotid flow voids are evident bilaterally. The seventh and eighth nerve complexes are unremarkable. The sinuses are generally clear. IMPRESSION: 1. There is no evidence for an acute intracranial abnormality. 2. There is no sign of a mass lesion or of demyelinating disease. Assessment/Plan Assessment/Plan Assess & Plan/Chief Complaint malignant hypertension. CVA versus TIA Coronary artery disease. Patient moving all extremities now. Drooping of mouth. Good speech. Patient feeling better today and less depressed. Depression. . 02/01/17. Transient ischemic attack. Depression. Coronary artery disease. Malignant hypertension. Patient needs follow-up with mental health. Patient needs antidepressant now on Zoloft.. . 02/02/17. transient ischemic attack. Malignant hypertension. Depression.. Transient global amnesia. Patient had episode of hypertension last night at 830 p.m. with headache. Patient started on clonidine yesterday. . 02/03/17. Patient feeling better this morning. Patient had 3 episodes yesterday of blood pressure above 160. This happens patient gets headache. Transit ischemic attack. Malignant hypertension. Depression. transient global amnesia Clinical Quality Measures DVT/VTE Risk/Contraindication: Risk Factor Score Per Nursin RFS Level Per Nursing on Admit: 2=Moderate Contraindications-Pharm: Other *list below* Stroke: Date of last known well: Jan 28, 2017 Symptoms onset unknown: Yes ANDRES RABAGO DO Feb 03, 2017 08:01
[2017-02-03 08:05] VITALS: BP 154/80
--- NOTE | 2017-02-03 08:16 | Cardiology Progress Note ---
Subjective Time Seen by Provider: 08:14 Subjective/Events-last exam Patient is in bed. Denies any CP. Denies any PAEZ or one sided weakness at this time. Reports episode of high blood pressure yesterday with associated brief right sided weakness. No resolved. Review of Systems General: No Night Sweats, No Fatigue, No Malaise HEENT: Head Aches, No Visual Changes, No Dysphasia, No Sore Throat Pulmonary: No Dyspnea, No Cough Cardiovascular: No: Chest Pain, Palpitations, Paroxysmal Noc. Dyspnea, Edema Gastrointestinal: No: Nausea, Vomiting, Abdominal Pain Genitourinary: No Dysuria, No Frequency Musculoskeletal: No: neck pain, back pain Neurological: No: Weakness, Numbness Objective-Cardiology Exam Last Set of Vital Signs Vital Signs 02/03/17 02/03/17 02/03/17 02/03/17 03:34 05:53 07:00 07:20 Temp 97.0 Pulse 60 Resp 18 B/P (MAP) 149/78 Pulse Ox 94 O2 Delivery Room Air FiO2 21 Capillary Refill : Less Than 3 Seconds I&O Intake and Output 02/04/17 00:00 Intake Total 0 ml Balance 0 ml Intake Oral 0 ml # Voids 1 General: Alert, Oriented X3, Cooperative HEENT: Atraumatic, PERRLA Neck: Supple, No JVD, No Thyromegaly Lungs: Clear to Auscultation, Normal Air Movement Heart: Regular Rate, Normal S1, Normal S2, Other (systolic murmur) Abdomen: Normal Bowel Sounds, Soft, No Tenderness, No Hepatosplenomegaly, No Masses Extremities: No Clubbing, No Cyanosis, No Edema, Normal Pulses, No Tenderness/ Swelling Skin: No Rashes, No Breakdown, No Significant Lesion Neuro: Normal Gait, Normal Speech, Strength at 5/5 X4 Ext, Normal Tone, Sensation Intact Psych/Mental Status: Mental Status NL, Mood NL A/P-Cardiology Admission Diagnosis chest pain TIA CAD Hypertension Assessment/Plan Chest pain, resembling angina, patient has chronic chest pain, feeling better, EKG did not show any acute abnormality or changes from baseline. Continue to monitor at this time. Transient ischemic attack, recent CVA occurred last week. Source is unknown, patient was started on Eliquis on the last admission process patient of cardiac thrombus, the last echo that was done in July 2016 showed questionable healed vegetation on the aortic cusp with moderate aortic regurgitation, it could be the source of his recurrent CVA/TIA, I am planning to proceed with PETER evaluation and restart aspirin and Plavix. The use of Eliquis will increase the risk of bleeding, he does not have any documented atrial fibrillation in the past. carotid ultrasound was reported to have heavy atherosclerotic plaques but no obstructive disease, scheduled for MRA today. PETER showed echogenic density on the left aortic cusp most probably aortic valve sclerosis, unlikely to be healed vegetation. Measuring 0.80.7 centimeters, the valve is functioning normally, LV is normal. Coronary artery disease, cardiac catheterization carried out July 27, 2016 revealed total occlusion of right coronary artery, severe stenosis at the proper circumflex artery, ostial circumflex stenosis, LAD had moderate disease. IVUS showed 60 percent stenosis, underwent stenting to the right coronary artery with excellent results. Patient underwent multiple cardiac catheterizations in the month of July due to his ongoing chest pain. Most recent cardiac catheterization carried out by Dr. Ortiz on August 14, 2016 revealed widely patent stented portion of the RCA which was completely occluded before. 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 Recommended conservative management for the area rather than ballooning it, probably it will thrombose without affecting the stent. Distal circumflex artery with 90 percent stenosis, small vessel supplying very small amount of myocardium. Patient's discomfort is incessant, going on for several weeks, unchanged after the PCI of the RCA. Unlikely that his unrelenting pain is related to this, recommended continuing with medical management. continue on aspirin and Plavix Echocardiogram showed normal LV function, PETER showed echogenic density on the left aortic cusp, valve is functioning normally, unlikely to be the source of his stroke. Hypertension, labile blood pressure, becoming symptomatic with elevated blood pressure. I will increase clonidine and continue to monitor blood pressure Hyperlipidemia, continue on statin and monitor Claudication pain-complains of claudication pain to bilateral lower extremity at distances of 2-3 blocks. Denies any rest pain, ulceration, or gangrene, Normal LOLIS Headache-complains of intermittent headache over the past several months. No change after blood pressure is better controlled. Recommend follow-up with primary care physician. History of elevated LFTs-continue to monitor. GERD with history of gastritis, continue on Protonix Tobaccoism-patient was once again educated on importance of smoking cessation. 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
[2017-02-03] MEDS: CARVEDILOL 3.125 MG (COREG) TABLET PO SCH (08:51)
[2017-02-03] MEDS: buPROPion SR 150 MG (WELLBUTRIN SR) TAB PO SCH (08:52)
[2017-02-03] MEDS: ISOSORBIDE MONONITRATE 60 MG (IMDUR) TAB PO SCH (08:53)
[2017-02-03] MEDS: SERTRALINE 50 MG (ZOLOFT) TABLET PO SCH (08:54)
[2017-02-03] MEDS: ASPIRIN E.C. 81 MG (ECOTRIN) TAB PO SCH (08:56)
[2017-02-03] MEDS: amLODIPine 10 MG (NORVASC) TAB PO SCH (08:56)
[2017-02-03] MEDS: LOSARTAN 50 MG (COZAAR) TAB PO SCH (08:58)
[2017-02-03] MEDS ORDERED: cloNIDine 0.1 MG (CATAPRES) TAB PO SCH (09:00)
--- NOTE | 2017-02-03 09:57 | Cardiology Progress Note ---
Subjective Date Seen by Provider: Feb 03, 2017 Time Seen by Provider: 09:00 Subjective/Events-last exam Patient is laying down in bed, had few episodes of elevated blood pressure, had mild headache, currently feeling better, blood pressure is under better control Review of Systems General: No Chills, No Night Sweats, No Fatigue, No Malaise, No Appetite, No Other HEENT: No Head Aches, No Visual Changes, No Eye Pain, No Ear Pain, No Dysphasia , No Sinus Congestion, No Post Nasal Drip, No Sore Throat, No Other Pulmonary: No Dyspnea, No Cough, No Pleuritic Chest Pain, No Other Cardiovascular: No: Chest Pain, Palpitations, Orthopnea, Paroxysmal Noc. Dyspnea, Edema, Lt Headedness, Other Objective-Cardiology Exam Last Set of Vital Signs Vital Signs 02/03/17 02/03/17 05:53 08:05 Temp 98.6 Pulse 67 Resp 20 B/P (MAP) 154/80 Pulse Ox 97 O2 Delivery Room Air FiO2 21 Capillary Refill : Less Than 3 Seconds I&O Intake and Output 02/04/17 00:00 Intake Total 999 ml Balance 999 ml Intake Oral 0 ml IV Total 999 ml # Voids 1 General: Alert, Oriented X3, Cooperative HEENT: Atraumatic, PERRLA Neck: Supple, No JVD, No Thyromegaly Lungs: Clear to Auscultation, Normal Air Movement Heart: Regular Rate, Normal S1, Normal S2, Other (systolic murmur) Abdomen: Normal Bowel Sounds, Soft, No Tenderness, No Hepatosplenomegaly, No Masses Extremities: No Clubbing, No Cyanosis, No Edema, Normal Pulses, No Tenderness/ Swelling Skin: No Rashes, No Breakdown, No Significant Lesion Neuro: Normal Gait, Normal Speech, Strength at 5/5 X4 Ext, Normal Tone, Sensation Intact Psych/Mental Status: Mental Status NL, Mood NL A/P-Cardiology Admission Diagnosis chest pain TIA CAD Hypertension Assessment/Plan Chest pain, resembling angina, patient has chronic chest pain, feeling better, EKG did not show any acute abnormality or changes from baseline. Continue to monitor at this time. Transient ischemic attack, recent CVA occurred last week. Source is unknown, patient was started on Eliquis on the last admission process patient of cardiac thrombus, the last echo that was done in July 2016 showed questionable healed vegetation on the aortic cusp with moderate aortic regurgitation, it could be the source of his recurrent CVA/TIA, I am planning to proceed with PETER evaluation and restart aspirin and Plavix. The use of Eliquis will increase the risk of bleeding, he does not have any documented atrial fibrillation in the past. carotid ultrasound was reported to have heavy atherosclerotic plaques but no obstructive disease, scheduled for MRA today. PETER showed echogenic density on the left aortic cusp most probably aortic valve sclerosis, unlikely to be healed vegetation. Measuring 0.80.7 centimeters, the valve is functioning normally, LV is normal. Coronary artery disease, cardiac catheterization carried out July 27, 2016 revealed total occlusion of right coronary artery, severe stenosis at the proper circumflex artery, ostial circumflex stenosis, LAD had moderate disease. IVUS showed 60 percent stenosis, underwent stenting to the right coronary artery with excellent results. Patient underwent multiple cardiac catheterizations in the month of July due to his ongoing chest pain. Most recent cardiac catheterization carried out by Dr. Ortiz on August 14, 2016 revealed widely patent stented portion of the RCA which was completely occluded before. Malposition of stents in the mid to distal RCA from positive remodeling , likely in a dissection plane site during the complex [employer]. Recommended conservative management for the area rather than ballooning it, probably it will thrombose without affecting the stent. Distal circumflex artery with 90 percent stenosis, small vessel supplying very small amount of myocardium. Patient's discomfort is incessant, going on for several weeks, unchanged after the PCI of the RCA. Unlikely that his unrelenting pain is related to this, recommended continuing with medical management. continue on aspirin and Plavix Echocardiogram showed normal LV function, PETER showed echogenic density on the left aortic cusp, valve is functioning normally, unlikely to be the source of his stroke. Hypertension, labile blood pressure, becoming symptomatic with elevated blood pressure. I will increase clonidine and continue to monitor blood pressure as an outpatient Hyperlipidemia, continue on statin and monitor Claudication pain-complains of claudication pain to bilateral lower extremity at distances of 2-3 blocks. Denies any rest pain, ulceration, or gangrene, Normal LOLIS Headache-complains of intermittent headache over the past several months. No change after blood pressure is better controlled. Recommend follow-up with primary care physician. History of elevated LFTs-continue to monitor. GERD with history of gastritis, continue on Protonix Tobaccoism-patient was once again educated on importance of smoking cessation. 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
[2017-02-03] MEDS ORDERED: CARV3.122 PO (09:59)
[2017-02-03] MEDS ORDERED: ATOR10TA66 PO (09:59)
[2017-02-03] MEDS ORDERED: CLON0.1T PO (09:59)
[2017-02-03 12:10] VITALS: BP 154/80
[2017-02-03] MEDS ORDERED: CATHETER FLUSH 10 ML SYR IV SCH (14:00)
--- NOTE | 2017-02-04 08:10 | Discharge Summary ---
Diagnosis/Chief Complaint Date of Admission Jan 28, 2017 at 21:17 Date of Discharge Feb 03, 2017 at 12:10 Discharge Time: 08:05 Admission Diagnosis Admission Diagnosis transient amnesia. Right sided weakness. Coronary artery disease. Depression. TIA versus CVA Discharge Diagnosis transient global amnesia. Malignant hypertension. Transient ischemic attack. Coronary artery disease. GERD. Major depressive disorder. Nicotine dependence. Peripheral vascular disease. Personal history of pulmonary embolism. Hyperlipidemia Reason Hospital Visit history by significant other since patient doesn't remember what happened. Significant other found patient curled up in the position. All of a sudden patient quit talking and right side weakness and drooping. Patient couldn't talk but grunted. Patient also had problems with his left side. Patient unable to do the right side upper and lower extremities. Patient can feel anything on right lower extremities. Patient's Babinski sign negative. Patient has history of coronary artery disease. Patient this morning can talk, no slurry speech, able to smile, and able to move the right upper extremity. Patient have problem with right foot Discharge Summary Consultations cardiology Discharge Physical Examination Allergies: Coded Allergies: penicillin G (Verified Allergy, Severe, SWELLING, 12/23/11) Vitals & I&Os Vital Signs Date Time Temp Pulse Resp B/P (MAP) Pulse Ox O2 Delivery O2 Flow Rate FiO2 02/03/17 12:10 67 20 154/80 97 Room Air 02/03/17 08:05 98.6 02/03/17 05:53 21 Hospital Course patient blood pressure did better.. Patient put on clonidine 0.1 mg 3 times a day Patient felt better on discharge Labs (last 24 hrs) Laboratory Tests 01/28/17 19:11: White Blood Count 7.9, Red Blood Count 4.42, Hemoglobin 14.1, Hematocrit 41, Mean Corpuscular Volume 92, Mean Corpuscular Hemoglobin 32, Mean Corpuscular Hemoglobin Concent 35, Red Cell Distribution Width 12.7, Platelet Count 458H, Mean Platelet Volume 9.8, Neutrophils (%) (Auto) 53, Lymphocytes (%) (Auto) 30, Monocytes (%) (Auto) 11, Eosinophils (%) (Auto) 6, Basophils (%) (Auto) 1, Neutrophils # (Auto) 4.1, Lymphocytes # (Auto) 2.3, Monocytes # (Auto) 0.9, Eosinophils # (Auto) 0.5H, Basophils # (Auto) 0.0, Prothrombin Time 11.4L, INR Comment 0.9, Activated Partial Thromboplast Time 33, D-Dimer 0.60H, Sodium Level 140, Potassium Level 4.9, Chloride Level 103, Carbon Dioxide Level 22, Anion Gap 15H, Blood Urea Nitrogen 21H, Creatinine 1.31H, Estimat Glomerular Filtration Rate 57, BUN/Creatinine Ratio 16, Glucose Level 117H, Calcium Level 9.9, Total Bilirubin 0.2, Aspartate Amino Transf (AST/SGOT) 35H, Alanine Aminotransferase (ALT/SGPT) 77H, Alkaline Phosphatase 245H, Troponin I < 0.30, Total Protein 9.7H, Albumin 4.3, Acetaminophen Level < 10L, Serum Alcohol < 10 01/28/17 19:29: Urine Color YELLOW, Urine Clarity SLIGHTLY CLOUDY, Urine pH 5, Urine Specific [place] 1.020, Urine Protein 2+H, Urine Glucose (UA) NEGATIVE, Urine Ketones NEGATIVE, Urine Nitrite NEGATIVE, Urine Bilirubin NEGATIVE, Urine Urobilinogen NORMAL, Urine Leukocyte Esterase 2+H, Urine RBC (Auto) 5+H, Urine RBC TNTCH, Urine WBC 5-10H, Urine Crystals NONE, Urine Bacteria NEGATIVE, Urine Casts NONE , Urine Mucus NEGATIVE, Urine Culture Indicated YES, Urine Opiates Screen POSITIVEH, Urine Oxycodone Screen NEGATIVE, Urine Methadone Screen NEGATIVE, Urine Propoxyphene Screen NEGATIVE, Urine Barbiturates Screen NEGATIVE, Ur Tricyclic Antidepressants Screen NEGATIVE, Urine Phencyclidine Screen NEGATIVE, Urine Amphetamines Screen NEGATIVE, Urine Methamphetamines Screen NEGATIVE, Urine Benzodiazepines Screen NEGATIVE, Urine Cocaine Screen NEGATIVE, Urine Cannabinoids Screen NEGATIVE 01/28/17 22:53: Troponin I < 0.30 01/29/17 05:07: White Blood Count 6.3, Red Blood Count 4.09L, Hemoglobin 12.4L, Hematocrit 38L, Mean Corpuscular Volume 93, Mean Corpuscular Hemoglobin 30, Mean Corpuscular Hemoglobin Concent 33, Red Cell Distribution Width 12.6, Platelet Count 366, Mean Platelet Volume 9.7, Neutrophils (%) (Auto) 59, Lymphocytes (%) (Auto) 26, Monocytes (%) (Auto) 9, Eosinophils (%) (Auto) 6, Basophils (%) (Auto) 0, Neutrophils # (Auto) 3.7, Lymphocytes # (Auto) 1.6, Monocytes # (Auto) 0.6, Eosinophils # (Auto) 0.4H, Basophils # (Auto) 0.0, Sodium Level 139, Potassium Level 4.5, Chloride Level 106, Carbon Dioxide Level 22, Anion Gap 11, Blood Urea Nitrogen 19H, Creatinine 1.13, Estimat Glomerular Filtration Rate > 60, BUN /Creatinine Ratio 17, Glucose Level 98, Calcium Level 9.0, Total Bilirubin 0.2, Aspartate Amino Transf (AST/SGOT) 32, Alanine Aminotransferase (ALT/SGPT) 69H, Alkaline Phosphatase 211H, Total Protein 6.9, Albumin 3.7 01/29/17 11:50: Homocysteine 10.7H 01/30/17 05:20: White Blood Count 7.0, Red Blood Count 4.06L, Hemoglobin 12.2L, Hematocrit 38L, Mean Corpuscular Volume 93, Mean Corpuscular Hemoglobin 30, Mean Corpuscular Hemoglobin Concent 32, Red Cell Distribution Width 12.7, Platelet Count 361, Mean Platelet Volume 9.7, Neutrophils (%) (Auto) 64, Lymphocytes (%) (Auto) 21, Monocytes (%) (Auto) 9, Eosinophils (%) (Auto) 6, Basophils (%) (Auto) 0, Neutrophils # (Auto) 4.5, Lymphocytes # (Auto) 1.5, Monocytes # (Auto) 0.6, Eosinophils # (Auto) 0.4H, Basophils # (Auto) 0.0, Sodium Level 139, Potassium Level 4.2, Chloride Level 105, Carbon Dioxide Level 24, Anion Gap 10, Blood Urea Nitrogen 17, Creatinine 1.10, Estimat Glomerular Filtration Rate > 60, BUN/ Creatinine Ratio 15, Glucose Level 92, Calcium Level 9.0, Total Bilirubin 0.3, Aspartate Amino Transf (AST/SGOT) 17, Alanine Aminotransferase (ALT/SGPT) 53, Alkaline Phosphatase 203H, Total Protein 6.7, Albumin 3.6, Anti-Nuclear Antibody Screen PositiveH, Anti-Nuclear Antibody Titer 1:80H, Anti-Nuclear Antibody Pattern HomogeneousH 02/01/17 05:00: White Blood Count 5.1, Red Blood Count 3.71L, Hemoglobin 11.3L, Hematocrit 34L, Mean Corpuscular Volume 93, Mean Corpuscular Hemoglobin 31, Mean Corpuscular Hemoglobin Concent 33, Red Cell Distribution Width 12.5, Platelet Count 319, Mean Platelet Volume 9.5, Neutrophils (%) (Auto) 58, Lymphocytes (%) (Auto) 27, Monocytes (%) (Auto) 8, Eosinophils (%) (Auto) 7, Basophils (%) (Auto) 0, Neutrophils # (Auto) 2.9, Lymphocytes # (Auto) 1.4, Monocytes # (Auto) 0.4, Eosinophils # (Auto) 0.4H, Basophils # (Auto) 0.0, Sodium Level 140, Potassium Level 4.2, Chloride Level 105, Carbon Dioxide Level 26, Anion Gap 9, Blood Urea Nitrogen 16, Creatinine 1.15, Estimat Glomerular Filtration Rate > 60, BUN/ Creatinine Ratio 14, Glucose Level 130H, Calcium Level 8.6, Phosphorus Level 3.7 , Magnesium Level 1.8 02/02/17 04:33: White Blood Count 8.8, Red Blood Count 3.99L, Hemoglobin 12.0L, Hematocrit 37L, Mean Corpuscular Volume 92, Mean Corpuscular Hemoglobin 30, Mean Corpuscular Hemoglobin Concent 33, Red Cell Distribution Width 12.3, Platelet Count 310, Mean Platelet Volume 9.5, Neutrophils (%) (Auto) 76H, Lymphocytes (%) (Auto) 14 , Monocytes (%) (Auto) 6, Eosinophils (%) (Auto) 5, Basophils (%) (Auto) 0, Neutrophils # (Auto) 6.7, Lymphocytes # (Auto) 1.2, Monocytes # (Auto) 0.5, Eosinophils # (Auto) 0.4H, Basophils # (Auto) 0.0, Sodium Level 142, Potassium Level 3.7, Chloride Level 107, Carbon Dioxide Level 24, Anion Gap 11, Blood Urea Nitrogen 15, Creatinine 1.17, Estimat Glomerular Filtration Rate > 60, BUN/ Creatinine Ratio 13, Glucose Level 119H, Calcium Level 9.0, Phosphorus Level 2.7 , Magnesium Level 2.4 Microbiology 01/28/17 Urine Culture - Final, Complete NO GROWTH Pending Labs Microbiology Date/Time Source Procedure Growth Status 01/28/17 19:29 Urine Clean Catch Urine Culture - Final NO GROWTH Complete Laboratory Tests 01/28/17 19:11: White Blood Count 7.9, Red Blood Count 4.42, Hemoglobin 14.1, Hematocrit 41, Mean Corpuscular Volume 92, Mean Corpuscular Hemoglobin 32, Mean Corpuscular Hemoglobin Concent 35, Red Cell Distribution Width 12.7, Platelet Count 458, Mean Platelet Volume 9.8, Neutrophils (%) (Auto) 53, Lymphocytes (%) (Auto) 30, Monocytes (%) (Auto) 11, Eosinophils (%) (Auto) 6, Basophils (%) (Auto) 1, Neutrophils # (Auto) 4.1, Lymphocytes # (Auto) 2.3, Monocytes # (Auto) 0.9, Eosinophils # (Auto) 0.5, Basophils # (Auto) 0.0, Prothrombin Time 11.4, INR Comment 0.9, Activated Partial Thromboplast Time 33, D-Dimer 0.60, Sodium Level 140, Potassium Level 4.9, Chloride Level 103, Carbon Dioxide Level 22, Anion Gap 15, Blood Urea Nitrogen 21, Creatinine 1.31, Estimat Glomerular Filtration Rate 57, BUN/Creatinine Ratio 16, Glucose Level 117, Calcium Level 9.9, Total Bilirubin 0.2, Aspartate Amino Transf (AST/SGOT) 35, Alanine Aminotransferase ( ALT/SGPT) 77, Alkaline Phosphatase 245, Troponin I < 0.30, Total Protein 9.7, Albumin 4.3, Acetaminophen Level < 10, Serum Alcohol < 10 01/28/17 19:29: Urine Color YELLOW, Urine Clarity SLIGHTLY CLOUDY, Urine pH 5, Urine Specific [place] 1.020, Urine Protein 2+, Urine Glucose (UA) NEGATIVE, Urine Ketones NEGATIVE, Urine Nitrite NEGATIVE, Urine Bilirubin NEGATIVE, Urine Urobilinogen NORMAL, Urine Leukocyte Esterase 2+, Urine RBC (Auto) 5+, Urine RBC TNTC, Urine WBC 5-10, Urine Crystals NONE, Urine Bacteria NEGATIVE, Urine Casts NONE, Urine Mucus NEGATIVE, Urine Culture Indicated YES, Urine Opiates Screen POSITIVE, Urine Oxycodone Screen NEGATIVE, Urine Methadone Screen NEGATIVE, Urine Propoxyphene Screen NEGATIVE, Urine Barbiturates Screen NEGATIVE, Ur Tricyclic Antidepressants Screen NEGATIVE, Urine Phencyclidine Screen NEGATIVE, Urine Amphetamines Screen NEGATIVE, Urine Methamphetamines Screen NEGATIVE, Urine Benzodiazepines Screen NEGATIVE, Urine Cocaine Screen NEGATIVE, Urine Cannabinoids Screen NEGATIVE 01/28/17 22:53: Troponin I < 0.30 01/29/17 05:07: White Blood Count 6.3, Red Blood Count 4.09, Hemoglobin 12.4, Hematocrit 38, Mean Corpuscular Volume 93, Mean Corpuscular Hemoglobin 30, Mean Corpuscular Hemoglobin Concent 33, Red Cell Distribution Width 12.6, Platelet Count 366, Mean Platelet Volume 9.7, Neutrophils (%) (Auto) 59, Lymphocytes (%) (Auto) 26, Monocytes (%) (Auto) 9, Eosinophils (%) (Auto) 6, Basophils (%) (Auto) 0, Neutrophils # (Auto) 3.7, Lymphocytes # (Auto) 1.6, Monocytes # (Auto) 0.6, Eosinophils # (Auto) 0.4, Basophils # (Auto) 0.0, Sodium Level 139, Potassium Level 4.5, Chloride Level 106, Carbon Dioxide Level 22, Anion Gap 11, Blood Urea Nitrogen 19, Creatinine 1.13, Estimat Glomerular Filtration Rate > 60, BUN/ Creatinine Ratio 17, Glucose Level 98, Calcium Level 9.0, Total Bilirubin 0.2, Aspartate Amino Transf (AST/SGOT) 32, Alanine Aminotransferase (ALT/SGPT) 69, Alkaline Phosphatase 211, Total Protein 6.9, Albumin 3.7 01/29/17 11:50: Homocysteine 10.7 01/30/17 05:20: White Blood Count 7.0, Red Blood Count 4.06, Hemoglobin 12.2, Hematocrit 38, Mean Corpuscular Volume 93, Mean Corpuscular Hemoglobin 30, Mean Corpuscular Hemoglobin Concent 32, Red Cell Distribution Width 12.7, Platelet Count 361, Mean Platelet Volume 9.7, Neutrophils (%) (Auto) 64, Lymphocytes (%) (Auto) 21, Monocytes (%) (Auto) 9, Eosinophils (%) (Auto) 6, Basophils (%) (Auto) 0, Neutrophils # (Auto) 4.5, Lymphocytes # (Auto) 1.5, Monocytes # (Auto) 0.6, Eosinophils # (Auto) 0.4, Basophils # (Auto) 0.0, Sodium Level 139, Potassium Level 4.2, Chloride Level 105, Carbon Dioxide Level 24, Anion Gap 10, Blood Urea Nitrogen 17, Creatinine 1.10, Estimat Glomerular Filtration Rate > 60, BUN/ Creatinine Ratio 15, Glucose Level 92, Calcium Level 9.0, Total Bilirubin 0.3, Aspartate Amino Transf (AST/SGOT) 17, Alanine Aminotransferase (ALT/SGPT) 53, Alkaline Phosphatase 203, Total Protein 6.7, Albumin 3.6, Anti-Nuclear Antibody Screen Positive, Anti-Nuclear Antibody Titer 1:80, Anti-Nuclear Antibody Pattern Homogeneous 02/01/17 05:00: White Blood Count 5.1, Red Blood Count 3.71, Hemoglobin 11.3, Hematocrit 34, Mean Corpuscular Volume 93, Mean Corpuscular Hemoglobin 31, Mean Corpuscular Hemoglobin Concent 33, Red Cell Distribution Width 12.5, Platelet Count 319, Mean Platelet Volume 9.5, Neutrophils (%) (Auto) 58, Lymphocytes (%) (Auto) 27, Monocytes (%) (Auto) 8, Eosinophils (%) (Auto) 7, Basophils (%) (Auto) 0, Neutrophils # (Auto) 2.9, Lymphocytes # (Auto) 1.4, Monocytes # (Auto) 0.4, Eosinophils # (Auto) 0.4, Basophils # (Auto) 0.0, Sodium Level 140, Potassium Level 4.2, Chloride Level 105, Carbon Dioxide Level 26, Anion Gap 9, Blood Urea Nitrogen 16, Creatinine 1.15, Estimat Glomerular Filtration Rate > 60, BUN/ Creatinine Ratio 14, Glucose Level 130, Calcium Level 8.6, Phosphorus Level 3.7 , Magnesium Level 1.8 02/02/17 04:33: White Blood Count 8.8, Red Blood Count 3.99, Hemoglobin 12.0, Hematocrit 37, Mean Corpuscular Volume 92, Mean Corpuscular Hemoglobin 30, Mean Corpuscular Hemoglobin Concent 33, Red Cell Distribution Width 12.3, Platelet Count 310, Mean Platelet Volume 9.5, Neutrophils (%) (Auto) 76, Lymphocytes (%) (Auto) 14, Monocytes (%) (Auto) 6, Eosinophils (%) (Auto) 5, Basophils (%) (Auto) 0, Neutrophils # (Auto) 6.7, Lymphocytes # (Auto) 1.2, Monocytes # (Auto) 0.5, Eosinophils # (Auto) 0.4, Basophils # (Auto) 0.0, Sodium Level 142, Potassium Level 3.7, Chloride Level 107, Carbon Dioxide Level 24, Anion Gap 11, Blood Urea Nitrogen 15, Creatinine 1.17, Estimat Glomerular Filtration Rate > 60, BUN/ Creatinine Ratio 13, Glucose Level 119, Calcium Level 9.0, Phosphorus Level 2.7 , Magnesium Level 2.4 Discharge Home Medications: Active Scripts Active Carvedilol 3.125 Mg Tablet 3.125 Mg PO BID Clonidine HCl 0.1 Mg Tablet 0.1 Mg PO TID Atorvastatin Calcium 10 Mg Tablet 10 Mg PO HS Reported Sertraline HCl 50 Mg Tablet 50 Mg PO DAILY Aspirin EC (Aspirin) 81 Mg Tablet.dr 81 Mg PO DAILY Trazodone HCl 100 Mg Tablet 100 Mg PO HS Losartan Potassium 50 Mg Tablet 100 Mg PO DAILY Wellbutrin Sr (Bupropion HCl) 150 Mg Tablet.er 150 Mg PO BID Howe 3 1,000 mg Softgel (Howe-3 Fatty Acids/Fish Oil) 1 Each Capsule 1,000 Mg PO BID Isosorbide Mononitrate ER (Isosorbide Mononitrate) 60 Mg Tab 60 Mg PO DAILY Nitrostat (Nitroglycerin) 0.4 Mg Tab.subl 0.4 Mg SL UD PRN PL[address] 1 TAB UNDER TONGUE NEEDED FOR CHEST PAIN; IF PAIN REMAINS AFTER 5 MINUTES, CALL 911 Amlodipine Besylate 10 Mg Tablet 10 Mg PO DAILY Clopidogrel (Clopidogrel Bisulfate) 75 Mg Tablet 75 Mg PO HS Instructions to patient/family Please see electonic discharge instructions given to patient. Clinical Quality Measures DVT/VTE Risk/Contraindication: Risk Factor Score Per Nursin RFS Level Per Nursing on Admit: 2=Moderate Contraindications-Pharm: Other *list below* Stroke: Date of last known well: Jan 28, 2017 Symptoms onset unknown: Yes ANDRES RABAGO DO Feb 04, 2017 08:10
== END 2017-02-03 12:10 | disposition home or self-care (01) | DRG 71 ==
LOC: EDUNIT# 19:08 → ER 19:10 → 4TH 21:17 → OBSVTOIN 21:17 → ICU 01-29 11:47 → 4TH 02-02 11:25
PROVIDERS: ADMIT Family Medicine; ATTEND Family Medicine
DX: G45.4 Transient global amnesia (principal); G45.9 Transient cerebral ischemic attack, unspecified; I10 Essential (primary) hypertension; I25.10 Atherosclerotic heart disease of native coronary artery without angina pectoris; I35.1 Nonrheumatic aortic (valve) insufficiency; F32.9 Major depressive disorder, single episode, unspecified; I73.9 Peripheral vascular disease, unspecified; K44.9 Diaphragmatic hernia without obstruction or gangrene; K21.9 Gastro-esophageal reflux disease without esophagitis; E78.00 Pure hypercholesterolemia, unspecified; E78.5 Hyperlipidemia, unspecified; Z95.5 Presence of coronary angioplasty implant and graft; F17.210 Nicotine dependence, cigarettes, uncomplicated; Z86.718 Personal history of other venous thrombosis and embolism; Z86.711 Personal history of pulmonary embolism
CPT/HCPCS: 36415; 70450; 70553; 71010; 80048; 80053; 80306; 80320; 80329; 81000; 83090; 83735; 84100; 84484; 85025; 85379; 85610; 85730; 86038; 86039; 87088; 93005; 93041; 93321; 93325; 93880; 94640; 94760; 96361; 96374

== ENCOUNTER 2017-02-10 16:31 | Observation (INO) | payer OTHER ==
[~2017-02-10] VITALS: Ht 175.3 cm; Wt 73.5 kg
[~2017-02-10 16:31] MED LIST changes: +CARV3.122 PO; +CLON0.1T PO; +SERT50TA9 PO; +TRAZ100T92 PO
--- OUTSIDE RECORDS SUMMARY | 2017-02-10 16:39 | XMS REPORT | Clinical Summary ---
Author Author [facility] Organization [facility] Address Unknown Phone Unavailable Care Team Providers Care Fishing Worker Name Role Phone PCP Unavailable Source Comments Some departments are not documenting in the electronic medical record. If you do not see the information that you expected, contact Release of Information in the Health Information Management department at [phone] for further assistance in locating additional records.[facility] Allergies Active Allergy Reactions Severity Noted [...] for Chest Pain. Max of 3 of [place] artery of tablets, call 911. 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 ([facility]) Overview: 07/29/16: heart cath ([place] [place], [place]) - total occlusion of the right [...] Date Type Specialty Care Team Description 01/12/2017 [facility] Neurosurgery Julianna Baer Weakness - Encounter MD 01/14/2017 Yair Pisano MD Wang, Yunxia, MD 01/12/2017 Hospital Radiology Encounter 01/12/2017 Hospital Radiology Encounter 01/12/2017 Hospital Radiology Encounter 01/12/2017 Procedure Pass Neurosurgery 01/12/2017 Hospital Radiology Encounter 01/12/2017 Procedure Pass Neurosurgery 01/12/2017 Procedure Pass Neurosurgery 01/12/2017 Procedure Pass Neurosurgery 01/12/2017 Procedure Pass Neurosurgery 11/17/2016 Telephone Cardiology Abigail Marie RN Patient Questions 11/16/2016 Telephone Cardiology Abigail Marie RN Dizziness from Last 3 Months Family History Medical [...] Specimen Performing Laboratory [facility] [address] [place] [address] * BASIC METABOLIC PANEL (01/14/2017 4:40 AM) [...] Performing Laboratory [facility] [address] [place] [address] * SWALLOW MOTION SERIES (01/13/2017 8:48 AM) [...] Specimen Performing Laboratory [facility] [address] [place] [address] * MAGNESIUM (01/13/2017 3:50 AM) Only the most recent of 2 results within the time period is included. Component Value Ref Range Magnesium 1.8 1.6 - 2.6 mg/dL Specimen Performing Laboratory [facility] [address] [place] [address] * IONIZED CALCIUM (01/13/2017 3:50 AM) Only the most recent of 2 results within the time period is included. Component Value Ref Range Ionized Calcium 1.09 1.0 - 1.3 MMOL/L Specimen Performing Laboratory [facility] [address] [place] [address] * CTA CHEST WO/W CONTRAST+POST IMPRESSION (01/12/2017 [...] (PCP) 25 NG/ML Specimen Performing Laboratory [facility] [address] [place] [address] * OPIATES-URINE RANDOM (01/12/2017 2:17 PM) Component Value Ref Range Opiates-Urine NEG NEG-NEG Comment: RESULTS WERE OBTAINED BY IMMUNOASSAY AND ARE PRESUMPTIVE ONLY. POSITIVE INDICATES THE PRESENCE OF SUBSTANCE WITH CHARACTERISTICS SIMILAR TO DRUG-DRUG CLASS OR METABOLITE IN CONC. EQUAL TO OR EXCEEDING VALUES LISTED. OPIATES 200 0 NG/ML Specimen Performing Laboratory [facility] [address] [place] [address] 127[address] * COCAINE-URINE RANDOM (01/12/2017 2:17 PM) Component Value Ref Range Cocaine-Urine NEG NEG-NEG Comment: RESULTS WERE OBTAINED BY IMMUNOASSAY AND ARE PRESUMPTIVE ONLY. POSITIVE INDICATES THE PRESENCE OF SUBSTANCE WITH CHARACTERISTICS SIMILAR TO DRUG-DRUG CLASS OR METABOLITE IN CONC. EQUAL TO OR EXCEEDING VALUES LISTED. COCAINE 300 NG/ML Specimen Performing Laboratory [facility] [address] [place] [address] * CANNABINOIDS-URINE RANDOM (01/12/2017 2:17 PM) Component Value Ref Range THC NEG NEG-NEG Comment: RESULTS WERE OBTAINED BY IMMUNOASSAY AND ARE PRESUMPTIVE ONLY. POSITIVE INDICATES THE PRESENCE OF SUBSTANCE WITH CHARACTERISTICS SIMILAR TO DRUG-DRUG CLASS OR METABOLITE IN CONC. EQUAL TO OR EXCEEDING VALUES LISTED. CANNABINOIDS 50 NG/ML Specimen Performing Laboratory [facility] [address] [place] [address] * BENZODIAZEPINES-URINE RANDOM (01/12/2017 2:17 PM) Component Value Ref Range Benzodiazepines NEG NEG-NEG Comment: RESULTS WERE OBTAINED BY IMMUNOASSAY AND ARE PRESUMPTIVE ONLY. POSITIVE INDICATES THE PRESENCE OF SUBSTANCE WITH CHARACTERISTICS SIMILAR TO DRUG-DRUG CLASS OR METABOLITE IN CONC. EQUAL TO OR EXCEEDING VALUES LISTED. BENZODIAZEPINES 200 NG/ML Specimen Performing Laboratory [facility] [address] [place] [address] * BARBITURATES-URINE RANDOM (01/12/2017 2:17 PM) Component Value Ref Range Barbiturates,Urine NEG NEG-NEG Comment: RESULTS WERE OBTAINED BY IMMUNOASSAY AND ARE PRESUMPTIVE ONLY. POSITIVE INDICATES THE PRESENCE OF SUBSTANCE WITH CHARACTERISTICS SIMILAR TO DRUG-DRUG CLASS OR METABOLITE IN CONC. EQUAL TO OR EXCEEDING VALUES LISTED. BARBITURATES 200 NG/ML Specimen Performing Laboratory Urine [facility] [address] [place] [address] * AMPHETAMINES-URINE RANDOM (01/12/2017 2:17 PM) Component Value Ref Range Amphetamines NEG NEG-NEG Comment: RESULTS WERE OBTAINED BY IMMUNOASSAY AND ARE PRESUMPTIVE ONLY. POSITIVE INDICATES THE PRESENCE OF SUBSTANCE WITH CHARACTERISTICS SIMILAR TO DRUG-DRUG CLASS OR METABOLITE IN CONC. EQUAL TO OR EXCEEDING VALUES LISTED. AMPHETAMINES 1000 NG/ML Specimen Performing Laboratory [facility] [address] [place] [address] * MRI HEAD WO/W CONTRAST (01/12/2017 1:36 [...] 1.24 MG/DL Specimen Performing Laboratory [facility] [address] [place] [address] * TROPONIN-I (01/12/2017 11:48 AM) Only the most recent of 3 results within the time period is included. Component Value Ref Range Troponin-I 0.01 0.0 - 0.05 NG/ML Specimen Performing Laboratory [facility] [address] [place] [address] * LIPID PROFILE (01/12/2017 11:48 AM) Component [...] mg/dL. Specimen Performing Laboratory [facility] [address] [place] [address] * 2-D + DOPPLER ECHOCARDIOGRAM (01/12/2017 8:54 AM) Component Value Ref Range BSA 1.86 m2 Referring Provider Dexter Hernandes CV ECHO PV ROBOTIC TECHNICIAN Floor RN LVIDD 3.3 4.2 - 5.9 [...] 1.2 Specimen Performing Laboratory [facility] [address] [place] [address] * CBC AND DIFF (01/12/2017 7:34 AM) [...] Performing Laboratory [facility] [address] [place] [address] * HEMOGLOBIN A1C (01/12/2017 7:34 AM) Component Value Ref Range Hemoglobin A1C 5.5 4.0 - 6.0 % Comment: The ADA recommends that most patients with type 1 and type 2 diabetes maintain an A1c level <7%. Specimen Performing Laboratory [facility] [address] [place] [address] * CT BRAIN PERF (01/12/2017 7:25 AM) [...] stenosis. There is origin of the right [employer]. The anterior, middle, and posterior cerebral arteries [...] stenosis. There is origin of the right [employer]. The anterior, middle, and posterior cerebral arteries [...] stenosis. There is origin of the right [employer]. The anterior, middle, and posterior cerebral arteries [...] stenosis. There is origin of the right [employer]. The anterior, middle, and posterior cerebral arteries [...] stenosis. There is origin of the right [employer]. The anterior, middle, and posterior cerebral arteries [...] stenosis. There is origin of the right [employer]. The anterior, middle, and posterior cerebral arteries [...]
--- OUTSIDE RECORDS SUMMARY | 2017-02-10 16:40 | XMS REPORT | Encounter Summary ---
Author Author [facility] Organization [facility] Address Unknown Phone Unavailable Care Team Providers Care Insurance Attorney Name Role Phone PCP Unavailable Encounter Details Date Type Department Care Team Description 01/12/2017 Procedure Pass Neuroscience & ENT ICU [address] [place] [address] Social History Tobacco Use Types [...]
--- OUTSIDE RECORDS SUMMARY | 2017-02-10 16:40 | XMS REPORT | Encounter Summary ---
Author Author [facility] Organization [facility] Address Unknown Phone Unavailable Care Team Providers Care Shank Maker Name Role Phone PCP Unavailable Encounter Details Date Type Department Care Team Description 01/12/2017 Hospital Neuroscience & ENT ICU Julianna Baer, [place] - Encounter [address]. 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 He was initially presented to the [place], [place] ED with chest pain. 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 Your last blood pressure was BP: 164/84, [...] cause. Return Appointment For Neurology scheduling contact [phone] For Neurosurgery appointments call [phone] Questions About Your Stay STANDARD For questions or concerns regarding your hospital stay: -DURING BUSINESS HOURS (8:00 AM - 4:30 PM): Call [phone] and ask to be transferred to your discharge attending physician. -AFTER BUSINESS HOURS (4:30 PM - 8:00 AM, on weekends, or holidays): Call [phone] and ask the air support operations operator to page the on-call doctor for the discharge attending physician. Discharging attending physician: GIRISH TELLEZ [[id number]] Low Fat / Low Cholesterol Diet Your goal is to limit the amount of saturated and trans fats in your diet. Keep track of how much cholesterol you eat and limit the total amount to 200mg ( milligrams) a day. If you have questions about your diet after you go home, you can call a dietitian at [phone]. 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 Max of 3 of [place] artery of tablets, call 911. 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 He was initially presented to the [place], [place] ED with chest pain. He had [...] 5.5 - ECHO unremarkable. Plan: - Resumed CLINICAL DOCUMENTATION DEVELOPER ASA and Plavix - Started on Simvastatin [...] Counseled to quit drugs - Cleared by PT/OT/JOY LOADING MACHINE OPERATOR/Rehab - s/p video swallow, now cleared by speech. Bradycaria - Cardiology consulted and following for bradycardia, . > CLINICAL DOCUMENTATION DEVELOPER BB held per cardiology HTN > restarted [...] his R side. He reports eating a [employer] breakfast sandwich this morning without difficulty. He [...] for: PHART, PCO2A, PO2ART, HCO3A, BASEEXA, BASEDEFA, [id number] Lab Results Component Value Date HGB 12.1 [...] 0.9 01/12/2017 No results found for: TSH, IIXAC6O, CORTRAN Lab Results Component Value Date CHOL 231 (H) 01/12/2017 TRIG 216 (H) 01/12/2017 HDL 35 (L) 01/12/2017 LDL 152 (H) 01/12/2017 VLDL 43 01/12/2017 No results found for: VANRAN, VANPK, VANTR No results found for: CYCLOSPOR, TACROLIMUS, FREEPHENY Point of Care Testing: (Last 24 hours): Glucose: (!) 106 Radiology and Other Diagnostics Review: reviewed Sen Monterroso Neurology Resident PGY 2 Pager [phone] * Aye Hall MS,CCC-JOY LOADING MACHINE OPERATOR - 01/14/2017 11:45 AM CDT SPEECH-LANGUAGE PATHOLOGY NO TREATMENT NOTE Chart reviewed and made contact with RN. Pt tolerating diet and PO meds well with no overt s/s aspiration. Speech, swallow, cognition appear to have returned to baseline. Do not anticipate ongoing JOY LOADING MACHINE OPERATOR needs. Therapist: Aye Hall MS,CCC-JOY LOADING MACHINE OPERATOR [phone] Date: 01/14/2017 * Albania Díaz MD - 01/13/2017 2:51 PM CDT Formatting of this note may be different from the original. 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 No evidence of recent MO. -- Sinus rhythm today. Normal AV conduction. [...] page with questions. After 5PM please call beater operator oncology radiation physician. Tuesday - Tuesday 8AM-5PM please call Cardiology consult pager. Pt was seen and discussed with Dr. Charlie MD. Albania Díaz MD PGY-1 Internal Medicine Pager [phone] __ Subjective: Kaz Restrepo is a 56 [...] carvedilol. We may be seeing resolution of TAG MARKER disorder driving increased vagal tone. Also possible [...] Mr. Restrepo has no history of recent MO, LV dysfunction, or heart failure. Lipid profile [...] if we may assist. Catrachito Guerra M.D. 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 male with h/o HTN, HLD, Substance abuse, tobacco use , CAD s/p stents presented with right sided weakness, right facial droop and apahsia. He was initially presented to the [place], [place] ED with chest pain. He had [...] 5.5 - ECHO unremarkable. Plan: - Resumed CLINICAL DOCUMENTATION DEVELOPER ASA and Plavix - Started on Simvastatin 40 in ICU. - Continue PT/OT/JOY LOADING MACHINE OPERATOR/Rehab - s/p video swallow - on mechanical [...] for: PHART, PCO2A, PO2ART, HCO3A, BASEEXA, BASEDEFA, [id number] Lab Results Component Value Date HGB 12.4 [...] 0.9 01/12/2017 No results found for: TSH, [id number], CORTRAN Lab Results Component Value Date CHOL 231 (H) 01/12/2017 TRIG 216 (H) 01/12/2017 HDL 35 (L) 01/12/2017 LDL 152 (H) 01/12/2017 VLDL 43 01/12/2017 No results found for: VANRAN, SHERRYPK, VANTR No results found for: CYCLOSPOR, TACROLIMUS, FREEPHENY Point of Care Testing: (Last 24 hours): Glucose: 90 Radiology and Other Diagnostics Review: reviewed Nataliya Barajas MD, MPH Neurology Resident PGY 4 Pager [phone] * Yair Pisano MD - 01/13/2017 11:27 [...] angina (HCC) 08/13/2016 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 physician). Patient examined: yes Objective: I have [...] optimize venous drainage Maintain normothermia, avoid hypoxemia, [place] appropriate osmotherapy ( i.e mannitol vs Hypertonic [...] CAD s/p stenting -asa and clopidogrel, restart CLINICAL DOCUMENTATION DEVELOPER Imdur and losartan; 5) Chest Pain - [...] risk for aspiration. Social work and case monitor for discharge planning and placement. Family Meeting and update: yes. Patient is able to make his or her decisions, family updated during rounds. Goals of therapy: Addressed, Patient is a full code Nurses concerns addressed. Disposition/Family: Transfer to neurology service X Yair G. Norris, MD Air Boatswain, Department of Neurology and Neurosurgery Pager: [phone] Date: 01/13/2017 X * Mai Pedersen, OT - 01/13/2017 11:13 AM CDT Formatting of this note may be different from the original. OCCUPATIONAL THERAPY ASSESSMENT/DISCHARGE NOTE Patient Name: Kaz Restrepo Room/Bed: [address] [place] [address] Admitting Diagnosis: acute stroke Stroke (HCC) Past Medical History: Diagnosis Date Chest pain 08/09/2016 Coronary artery disease 08/09/2016 Coronary artery disease of [place] artery of pilot [place] heart with stable angina pectoris (HCC) 08/09/2016 07/29/16: heart cath ([place], [place]) - total occlusion of the right [...] Pedersen OT Date: 01/13/2017 * Aye Hall MS,CCC-JOY LOADING MACHINE OPERATOR - 01/13/2017 9:07 AM CDT SPEECH-LANGUAGE PATHOLOGY [...] PO meds as tolerated Excellent oral care JOY LOADING MACHINE OPERATOR will follow for ongoing assessment of motor [...] NTG x 3. Taken by herb to [facility] ED. BP slightly elevated on arrival. Treated with sublingual and topical NTG. UDS + amphetamine. Developed right facial droop, aphasia or dysarthria, flaccid right hemiplegia, and left-sided weakness. Presumed to have acute stroke. CT head w/o contrast negative for hemorrhage. Treated with tPA and transferred to Stroke Center at [facility]. Neurologically improved when compared with description [...] Patient Response: Verbalized Understanding Therapist: Aye Hall MS,CCC-JOY LOADING MACHINE OPERATOR [phone] Date: 01/13/2017 * Zully Castelan APRN-MERCHANDISE STOCKER - 01/13/2017 6:29 AM CDT Formatting of this note may be different from the original. Neuro Critical Care Progress Note Kaz Restrepo Admission Date: 01/12/2017 LOS: 1 day Full Code ASSESSMENT/PLAN Patient Active Problem List Diagnosis Date Noted Stroke (HCC) 01/12/2017 Unstable angina (HCC) 08/13/2016 Coronary artery disease of [place] artery of pilot [place] heart with stable angina pectoris (HCC) 08/09/2016 07/29/16: heart cath ([place], [place]) - total occlusion of the right [...] Plan: - LDL 152, goal < 70- CLINICAL DOCUMENTATION DEVELOPER crestor increased to 20mg today - A1C 5.5 - ASA 81 and Plavix 75mg daily- resume today - PT/OT/JOY LOADING MACHINE OPERATOR/Rehab consulted Cardiac: hx of HTN, CAD, HLD, chest pain, bradycardia Echo 01/12: EF 65%, mild LVH, no shunt/thrombus CTA chest 01/12: negative for PE - cards consulted, appreciate recs - continue holding CLINICAL DOCUMENTATION DEVELOPER coreg 12.5mg QD - will restart imdur 60mg daily today, consider restarting losartan 50mg daily if needed for BP control - SBP goal: <160 - MAP goal > 65 - crestor daily Respiratory: H/o tobacco abuse - smoking cessation - Stable on room air - Spo2 goal >95% GI: H/O GERD, Dysphagia - Feeding: regular diet - JOY LOADING MACHINE OPERATOR following- video swallow negative for aspiration, diet [...] radiologic and diagnostic procedures reviewed. Zully Castelan, GRAPPLE YARDER OPERATOR-MERCHANDISE STOCKER Date: 01/13/[phone] I spent 45 minutes managing the care [...] Resource RN during scan. * Aye Hall, MS,CCC-JOY LOADING MACHINE OPERATOR - 01/12/2017 11:11 AM CDT SPEECH-LANGUAGE PATHOLOGY [...] risk of aspirating bacteria in oral secretions JOY LOADING MACHINE OPERATOR will follow for dysphagia and dysarthria management. [...] free from respiratory status changes. Therapist:Aye Hall MS,CCC-JOY LOADING MACHINE OPERATOR [phone] Date:01/12/2017 * Marie Monroe, RT - [...] Date: 01/12/2017 [place] AC=Airway clearance AM=Aerosolized medication BA=[place] aerosol DB&C=Deep breathe & cough FEV1=Forced expiratory volume in first second) IC=Inspiratory capacity LE=Lung expansion MDI=Metered dose inhaler Neb=Nebulizer O2=Oxygen Oxim=Oximetry PEFR=Peak expiratory flow rate WOOD SCALER=Rapid Response Team in this encounter Plan of [...] Performing Laboratory [facility] [address] [place] [address] * BASIC METABOLIC PANEL (01/14/2017 4:40 AM) [...] Performing Laboratory [facility] [address] [place] [address] * SWALLOW MOTION SERIES (01/13/2017 8:48 AM) [...] Specimen Performing Laboratory [facility] [address] [place] [address] * BASIC METABOLIC PANEL (01/13/2017 3:50 AM) [...] Specimen Performing Laboratory [facility] [address] [place] [address] * IONIZED CALCIUM (01/13/2017 3:50 AM) Component Value Ref Range Ionized Calcium 1.09 1.0 - 1.3 MMOL/L Specimen Performing Laboratory [facility] [address] [place] [address] * PHOSPHORUS (01/13/2017 3:50 AM) Component Value Ref Range Phosphorus 3.2 2.0 - 4.0 MG/DL Specimen Performing Laboratory [facility] [address] [place] [address] * MAGNESIUM (01/13/2017 3:50 AM) Component Value Ref Range Magnesium 1.8 1.6 - 2.6 mg/dL Specimen Performing Laboratory [facility] [address] [place] [address] * CTA CHEST WO/W CONTRAST+POST IMPRESSION (01/12/2017 [...] (PCP) 25 NG/ML Specimen Performing Laboratory Urine [facility] [address] [place] [address] * OPIATES-URINE RANDOM (01/12/2017 2:17 PM) Component Value Ref Range Opiates-Urine NEG NEG-NEG Comment: RESULTS WERE OBTAINED BY IMMUNOASSAY AND ARE PRESUMPTIVE ONLY. POSITIVE INDICATES THE PRESENCE OF SUBSTANCE WITH CHARACTERISTICS SIMILAR TO DRUG-DRUG CLASS OR METABOLITE IN CONC. EQUAL TO OR EXCEEDING VALUES LISTED. OPIATES 200 0 NG/ML Specimen Performing Laboratory [facility] [address] [place] [address] * COCAINE-URINE RANDOM (01/12/2017 2:17 PM) Component Value Ref Range Cocaine-Urine NEG NEG-NEG Comment: RESULTS WERE OBTAINED BY IMMUNOASSAY AND ARE PRESUMPTIVE ONLY. POSITIVE INDICATES THE PRESENCE OF SUBSTANCE WITH CHARACTERISTICS SIMILAR TO DRUG-DRUG CLASS OR METABOLITE IN CONC. EQUAL TO OR EXCEEDING VALUES LISTED. COCAINE 300 NG/ML Specimen Performing Laboratory Urine [facility] [address] [place] [address] * CANNABINOIDS-URINE RANDOM (01/12/2017 2:17 PM) Component Value Ref Range THC NEG NEG-NEG Comment: RESULTS WERE OBTAINED BY IMMUNOASSAY AND ARE PRESUMPTIVE ONLY. POSITIVE INDICATES THE PRESENCE OF SUBSTANCE WITH CHARACTERISTICS SIMILAR TO DRUG-DRUG CLASS OR METABOLITE IN CONC. EQUAL TO OR EXCEEDING VALUES LISTED. CANNABINOIDS 50 NG/ML Specimen Performing Laboratory [facility] [address] [place] [address] * BENZODIAZEPINES-URINE RANDOM (01/12/2017 2:17 PM) Component Value Ref Range Benzodiazepines NEG NEG-NEG Comment: RESULTS WERE OBTAINED BY IMMUNOASSAY AND ARE PRESUMPTIVE ONLY. POSITIVE INDICATES THE PRESENCE OF SUBSTANCE WITH CHARACTERISTICS SIMILAR TO DRUG-DRUG CLASS OR METABOLITE IN CONC. EQUAL TO OR EXCEEDING VALUES LISTED. BENZODIAZEPINES 200 NG/ML Specimen Performing Laboratory Urine [facility] [address] [place] [address] * BARBITURATES-URINE RANDOM (01/12/2017 2:17 PM) Component Value Ref Range Barbiturates,Urine NEG NEG-NEG Comment: RESULTS WERE OBTAINED BY IMMUNOASSAY AND ARE PRESUMPTIVE ONLY. POSITIVE INDICATES THE PRESENCE OF SUBSTANCE WITH CHARACTERISTICS SIMILAR TO DRUG-DRUG CLASS OR METABOLITE IN CONC. EQUAL TO OR EXCEEDING VALUES LISTED. BARBITURATES 200 NG/ML Specimen Performing Laboratory [facility] [address] [place] [address] * AMPHETAMINES-URINE RANDOM (01/12/2017 2:17 PM) Component Value Ref Range Amphetamines NEG NEG-NEG Comment: RESULTS WERE OBTAINED BY IMMUNOASSAY AND ARE PRESUMPTIVE ONLY. POSITIVE INDICATES THE PRESENCE OF SUBSTANCE WITH CHARACTERISTICS SIMILAR TO DRUG-DRUG CLASS OR METABOLITE IN CONC. EQUAL TO OR EXCEEDING VALUES LISTED. AMPHETAMINES 1000 NG/ML Specimen Performing Laboratory [facility] [address] [place] [address] * MRI HEAD WO/W CONTRAST (01/12/2017 1:36 [...] MG/DL Specimen Performing Laboratory MAIN LAB [address] [place] [address] * BASIC METABOLIC PANEL (01/12/2017 11:48 AM) [...] questions. Specimen Performing Laboratory MAIN [facility] [address] [place] [address] * LIPID PROFILE (01/12/2017 11:48 AM) Component [...] Specimen Performing Laboratory [facility] [address] [place] [address] * TROPONIN-I (01/12/2017 11:48 AM) Component Value Ref Range Troponin-I 0.01 0.0 - 0.05 NG/ML Specimen Performing Laboratory [facility] [address] [place] [address] * TROPONIN-I (01/12/2017 9:39 AM) Component Value Ref Range Troponin-I 0.01 0.0 - 0.05 NG/ML Specimen Performing Laboratory [facility] [address] [place] [address] * 2-D + DOPPLER ECHOCARDIOGRAM (01/12/2017 8:54 AM) Component Value Ref Range BSA 1.86 m2 Referring Provider Dexter Hrenandes CV ECHO PV CRANE MAN Floor RN LVIDD 3.3 4.2 - 5.9 [...] MMOL/L Specimen Performing Laboratory [facility] [address] [place] [address] * TROPONIN-I (01/12/2017 7:34 AM) Component Value Ref Range Troponin-I 0.01 0.0 - 0.05 NG/ML Specimen Performing Laboratory [facility] [address] [place], [place] [id number] * PHOSPHORUS (01/12/2017 7:34 AM) Component Value Ref Range Phosphorus 3.5 2.0 - 4.0 MG/DL Specimen Performing Laboratory [facility] [address] [place], [place] [id number] * MAGNESIUM (01/12/2017 7:34 AM) Component Value Ref Range Magnesium 1.8 1.6 - 2.6 mg/dL Specimen Performing Laboratory [facility] [address] [place], [place] [id number] * PROTIME INR (PT) (01/12/2017 7:34 AM) Component Value Ref Range INR 0.9 0.8 - 1.2 Specimen Performing Laboratory [facility] [address] [place], [place] [id number] * CBC AND DIFF (01/12/2017 7:34 AM) [...] Specimen Performing Laboratory [facility] [address] [place] [address] * HEMOGLOBIN A1C (01/12/2017 7:34 AM) Component Value Ref Range Hemoglobin A1C 5.5 4.0 - 6.0 % Comment: The ADA recommends that most patients with type 1 and type 2 diabetes maintain an A1c level <7%. Specimen Performing Laboratory [facility] [address] [place] [address] * CT BRAIN PERF (01/12/2017 7:25 AM) [...] stenosis. There is origin of the right MODEL MAKER. The anterior, middle, and posterior cerebral arteries [...] stenosis. There is origin of the right MODEL MAKER. The anterior, middle, and posterior cerebral arteries [...] stenosis. There is origin of the right MODEL MAKER. The anterior, middle, and posterior cerebral arteries [...] stenosis. There is origin of the right MODEL MAKER. The anterior, middle, and posterior cerebral arteries [...] stenosis. There is origin of the right MODEL MAKER. The anterior, middle, and posterior cerebral arteries [...] stenosis. There is origin of the right MODEL MAKER. 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
--- OUTSIDE RECORDS SUMMARY | 2017-02-10 16:41 | XMS REPORT | Encounter Summary ---
Author Author [facility] Organization [facility] Address Unknown Phone Unavailable Care Team Providers Care Way Inspector Name Role Phone PCP Unavailable Encounter Details Date Type Department Care Team Description 01/12/2017 [facility] [address] [facility] [place] [address] Social History Tobacco Use Types [...]
--- OUTSIDE RECORDS SUMMARY | 2017-02-10 16:41 | XMS REPORT | Encounter Summary ---
Author Author [facility] Organization [facility] Address Unknown Phone Unavailable Care Team Providers Care Research Instrumentation Technician Name Role Phone PCP Unavailable Encounter Details Date Type Department Care Team Description 01/12/2017 Hospital [facility] Encounter Hospital Radiology [address] [place], [place] [id number] Social History Tobacco Use Types Packs/Day Years [...] for Chest Pain. Max of 3 of [place] artery of tablets, call 911. [place] heart with stable angina pectoris (HCC), Essential [...]
--- OUTSIDE RECORDS SUMMARY | 2017-02-10 16:41 | XMS REPORT | Encounter Summary ---
Author Author [facility] Organization [facility] Address Unknown Phone Unavailable Care Team Providers Care [employer] Teacher Name Role Phone PCP Unavailable Encounter Details Date Type Department Care Team Description 01/12/2017 Procedure [facility] Neuroscience [facility] E[facility] ICU [address] [place] [address] Social History Tobacco Use Types [...]
--- OUTSIDE RECORDS SUMMARY | 2017-02-10 16:41 | XMS REPORT | Encounter Summary ---
Author Author [facility] Organization [facility] Address Unknown Phone Unavailable Care Team Providers Care Otm Consultant Name Role Phone PCP Unavailable Encounter Details Date Type Department Care Team Description 01/12/2017 Procedure [facility] ICU [address] [facility] [place] [address] Social History Tobacco Use Types [...]
--- OUTSIDE RECORDS SUMMARY | 2017-02-10 16:41 | XMS REPORT | Encounter Summary ---
Author Author [facility] Organization [facility] Address Unknown Phone Unavailable Care Team Providers Care Groundskeeper Supervisor Name Role Phone PCP Unavailable Reason for Visit * Reason Comments Patient Questions Encounter Details Date Type Department Care Team Description 11/17/[address] [facility] Cardiology Abigail Marie, ADITYA Patient Questions [address] [place] [address] [place] [address] Social History Tobacco Use Types Packs/Day Years [...]
--- OUTSIDE RECORDS SUMMARY | 2017-02-10 16:41 | XMS REPORT | Encounter Summary ---
Author Author [facility] Organization [facility] Address Unknown Phone Unavailable Care Team Providers Care Electrical Power Engineer Name Role Phone PCP Unavailable Encounter Details Date Type Department Care Team Description 01/12/2017 Hospital [facility] Encounter Hospital Radiology [address] [place], [place] [id number] Social History Tobacco Use Types Packs/Day Years [...] for Chest Pain. Max of 3 of [place] artery of tablets, call 911. [place] heart with stable angina pectoris (HCC), Essential [...]
--- OUTSIDE RECORDS SUMMARY | 2017-02-10 16:41 | XMS REPORT | Encounter Summary ---
Author Author [facility] Organization [facility] Address Unknown Phone Unavailable Care Team Providers Care Information Management Manager Name Role Phone PCP Unavailable Encounter Details Date Type Department Care Team Description 01/12/2017 Procedure [facility] ICU [address] [facility] [place] [address] Social History Tobacco Use Types [...]
--- OUTSIDE RECORDS SUMMARY | 2017-02-10 16:41 | XMS REPORT | Encounter Summary ---
Author Author [facility] Organization [facility] Address Unknown Phone Unavailable Care Team Providers Care End Matcher Name Role Phone PCP Unavailable Encounter Details Date Type Department Care Team Description 01/12/2017 Hospital [facility] Encounter Hospital Radiology [address] [place], [place] [id number] Social History Tobacco Use Types Packs/Day Years [...] for Chest Pain. Max of 3 of [place] artery of tablets, call 911. [place] heart with stable angina pectoris (HCC), Essential [...]
--- OUTSIDE RECORDS SUMMARY | 2017-02-10 16:41 | XMS REPORT | Encounter Summary ---
Author Author [facility] Organization [facility] Address Unknown Phone Unavailable Care Team Providers Care Boat Loader Name Role Phone PCP Unavailable Encounter Details Date Type Department Care Team Description 01/12/2017 Hospital [facility] Encounter Hospital Radiology [address] [place], [place] [id number] Social History Tobacco Use Types Packs/Day Years [...] for Chest Pain. Max of 3 of [place] artery of tablets, call 911. [place] heart with stable angina pectoris (HCC), Essential [...]
--- OUTSIDE RECORDS SUMMARY | 2017-02-10 16:41 | XMS REPORT | Encounter Summary ---
Author Author [facility] Address Unknown Phone Unavailable Care Team Providers Care Glazier Supervisor Name Role Phone PCP Unavailable Reason for Visit * Reason Comments Dizziness Encounter Details Date Type Department Care Team Description 11/16/2016 Telephone [facility] Cardiology Abigail Marie RN Dizziness [address] [place] [facility] [address] [place], [place] [id number] Social History Tobacco Use Types Packs/Day Years [...]
[2017-02-10] MEDS ORDERED: RX-NITROGLYCERIN 0.4 MG TAB BTL 25'S SL PRN (17:00)
[2017-02-10] MEDS ORDERED: ASPIRIN 325 MG (5 GR) TABLET PO ONE (17:00)
[2017-02-10 17:05] LABS: BASOPHILS % (AUTO) 1 % (0-10); EOSINOPHILS # (AUTO) 0.4 10^3/uL (0.0-0.3); EOSINOPHILS % (AUTO) 7 % (0-10); LYMPHOCYTES # (AUTO) 1.5 X 10^3 (1.0-4.0); LYMPHOCYTES % (AUTO) 25 % (12-44); MEAN CORPUSCULAR HEMOGLOBIN 31 PG (25-34); MEAN CORPUSCULAR HGB CONC 33 G/DL (32-36); MEAN CORPUSCULAR VOLUME 92 FL (80-99); MONOCYTES # (AUTO) 0.8 X 10^3 (0.0-1.0); MONOCYTES % (AUTO) 13 % (0-12); NEUTROPHILS # (AUTO) 3.3 X 10^3 (1.8-7.8); NEUTROPHILS % (AUTO) 54 % (42-75); PLATELET COUNT 302 10^3/uL (130-400); RED BLOOD COUNT 4.13 10^6/uL (4.35-5.85); RED CELL DISTRIBUTION WIDTH 12.6 % (10.0-14.5)
[2017-02-10 17:15] LABS: INR 0.8 (0.8-1.4); PROTHROMBIN TIME PATIENT 11.4 SEC (12.2-14.7)
--- NOTE | 2017-02-10 17:16 | Diagnostic Imaging Report ---
INDICATION: Chest pain. EXAMINATION: Portable chest at 4:59 p.m. FINDINGS: Heart size and pulmonary vascularity are normal. Lungs are clear. There are no effusions or pneumothoraces. IMPRESSION: Negative chest. Dictated by: Dictated on workstation # [id number]
[2017-02-10 17:25] LABS: ALANINE AMINOTRANSFERASE 25 U/L (0-55); ALBUMIN 4.1 GM/DL (3.2-4.5); ANION GAP 8 MMOL/L (5-14); ASPARTATE AMINO TRANSFERASE 18 U/L (5-34); BILIRUBIN,TOTAL 0.2 MG/DL (0.1-1.0); BLOOD UREA NITROGEN 22 MG/DL (7-18); BUN/CREATININE RATIO 16; CALCIUM 9.4 MG/DL (8.5-10.1); CARBON DIOXIDE 28 MMOL/L (21-32); CHLORIDE 102 MMOL/L (98-107); CREATININE SERUM 1.38 MG/DL (0.60-1.30); GFR ESTIMATED 53; GLUCOSE 89 MG/DL (70-105); POTASSIUM 4.4 MMOL/L (3.6-5.0); SODIUM 138 MMOL/L (135-145); TOTAL PROTEIN 7.9 GM/DL (6.4-8.2)
[2017-02-10 17:31] LABS: MYOGLOBIN SERUM 37.4 NG/ML (10.0-92.0)
--- NOTE | 2017-02-10 18:53 | ED Cardiac General ---
History of Present Illness General Chief Complaint: Chest Pain Stated Complaint: CHEST PAIN Nursing Triage Note: Pt c/o chest pain that started at 0900 this AM. Pt also c/o pain in bilat arms and legs x1-2 days. Pt was recently released from hospital after being admitted for CP. Source: patient, family Exam Limitations: no limitations History of Present Illness Time seen by provider: 18:48 Initial Comments This is a 56-year-old white male presents with severe chest pain that radiated to both arms and began hours prior to presentation emergency department. Patient said multiple similar episodes in the past. He is in the care of Dr. Lao. Patient's pain Patient was recently admitted with TIAs. Patient has a history significant recreational drug abuse. Allergies and Home Medications Allergies Coded Allergies: penicillin G (Verified Allergy, Severe, SWELLING, 12/23/11) Home Medications Amlodipine Besylate 10 Mg Tablet, 10 MG PO DAILY, (Reported) Aspirin 81 Mg Tablet.dr, 81 MG PO DAILY, (Reported) Atorvastatin Calcium 10 Mg Tablet, 10 MG PO HS, #30 Ref 4 Prescribed by: ANDREA LAO on 02/03/17 0959 Bupropion HCl 150 Mg Tablet.er, 150 MG PO BID, (Reported) Carvedilol 3.125 Mg Tablet, 3.125 MG PO BID, #60 Ref 4 Prescribed by: ANDREA LAO on 02/03/17 0959 Clonidine HCl 0.1 Mg Tablet, 0.1 MG PO TID, #90 Ref 4 Prescribed by: ANDREA LAO on 02/03/17 0959 Clopidogrel Bisulfate 75 Mg Tablet, 75 MG PO HS, (Reported) Isosorbide Mononitrate 60 Mg Tab, 60 MG PO DAILY, (Reported) Losartan Potassium 50 Mg Tablet, 100 MG PO DAILY, (Reported) Nitroglycerin 0.4 Mg Tab.subl, 0.4 MG SL UD PRN for CHEST PAIN, (Reported) PLACE 1 TAB UNDER TONGUE NEEDED FOR CHEST PAIN; IF PAIN REMAINS AFTER 5 MINUTES, CALL 911 [place]-3 Fatty Acids/Fish Oil 1 Each Capsule, 1,000 MG PO BID, (Reported) Sertraline HCl 50 Mg Tablet, 50 MG PO DAILY, (Reported) Trazodone HCl 100 Mg Tablet, 100 MG PO HS, (Reported) Review of Systems Constitutional: No chills, No fever EENTM: No Blurred Vision Respiratory: Denies Cough, Denies Shortness of Air Cardiovascular: Chest Pain Gastrointestinal: Denies Abdomen Distended, Denies Abdominal Pain Genitourinary: Denies Burning, Denies Frequency Musculoskeletal: No back pain Skin: No change in color, No rash Psychiatric/Neurological: No Symptoms Reported Endocrine: No Symptoms Reported Hematologic/Lymphatic: No Symptoms Reported Past [id number] Hx Patient Social History Alcohol Beverage of Choice: Beer Type Used: Cigarettes 2nd Hand Smoke Exposure: Yes Recent Foreign Travel: No Contact w/Someone Who Travel: No Recent Infectious Disease Expo: No Recent Hopitalizations: No Immunizations Up To Date Tetanus Booster (TDap): Less than 5yrs PED Vaccines UTD: No Date of Influenza Vaccine: Dec 28, 2014 Seasonal Allergies Seasonal Allergies: No Surgeries History of Surgeries: Yes (hernia) Surgeries: Abdominal, Coronary Stent, Orthopedic Respiratory History of Respiratory Disorde: No Currently Using CPAP: No Currently Using BIPAP: No Cardiovascular History of Cardiac Disorders: Yes (CARDIAC STENTS) Cardiac Disorders: Coronary Artery Disease, Deep Vein Thrombosis, Heart Attack , High Cholesterol, Hypertension Neurological History of Neurological Disord: Yes Neurological Disorders: Stroke, TIA Reproductive System Hx Reproductive Disorders: No Sexually Transmitted Disease: No Genitourinary History of Genitourinary Disor: No Gastrointestinal History of Gastrointestinal Di: Yes Gastrointestinal Disorders: Gastroesophageal Reflux, Hiatal Hernia, Ulcer Musculoskeletal History of Musculoskeletal Dis: No Endocrine History of Endocrine Disorders: No HEENT History of HEENT Disorders: No Loss of Vision: Denies Cancer History of Cancer: No Psychosocial History of Psychiatric Problem: Yes Behavioral Health Disorders: Depression Integumentary History of Skin or Integumenta: No Blood Transfusions History of Blood Disorders: No Adverse Reaction to a Blood Tr: No Reviewed Nursing Assessment Reviewed/Agree w Nursing PMH: Yes Family Medical History Significant Family History: Heart Disease, Hypertension Family Medial History: Arthritis 19 MOTHER SUGARCANE RESEARCH TECHNICIAN G8 SISTER FH: COPD (chronic obstructive pulmonary disease) Hypercholesterolemia 19 MOTHER Hypertension 19 MOTHER Physical Exam Vital Signs Vital Sign - Last 12Hours 02/10/17 16:35 Temp 98.4 Pulse 63 Resp 18 B/P (MAP) 134/82 Pulse Ox 96 O2 Delivery Room Air Capillary Refill : Less Than 3 Seconds General Appearance: WD/WN, Mild Distress HEENT: Normal ENT Inspection Neck: Normal Inspection Respiratory: Lungs Clear Cardiovascular: Regular Rate, Rhythm, No Murmur, Normal Peripheral Pulses Gastrointestinal: Normal Bowel Sounds Extremity: Normal Capillary Refill, Normal Inspection Neurologic/Psychiatric: Alert, Oriented x3, No Motor/Sensory Deficits, Normal Mood/Affect Skin: Warm/Dry Progress/Results/Core Measures Results/Orders Lab Results Laboratory Tests Test 02/10/17 16:57 Range/Units White Blood Count 6.0 4.3-11.0 10^3/uL Red Blood Count 4.13 L 4.35-5.85 10^6/uL Hemoglobin 12.7 L 13.3-17.7 G/DL Hematocrit 38 L 40-54 % Mean Corpuscular Volume 92 80-99 FL Mean Corpuscular Hemoglobin 31 25-34 PG Mean Corpuscular Hemoglobin Concent 33 32-36 G/DL Red Cell Distribution Width 12.6 10.0-14.5 % Platelet Count 302 130-400 10^3/uL Mean Platelet Volume 10.0 7.4-10.4 FL Neutrophils (%) (Auto) 54 42-75 % Lymphocytes (%) (Auto) 25 12-44 % Monocytes (%) (Auto) 13 H 0-12 % Eosinophils (%) (Auto) 7 0-10 % Basophils (%) (Auto) 1 0-10 % Neutrophils # (Auto) 3.3 1.8-7.8 X 10^3 Lymphocytes # (Auto) 1.5 1.0-4.0 X 10^3 Monocytes # (Auto) 0.8 0.0-1.0 X 10^3 Eosinophils # (Auto) 0.4 H 0.0-0.3 10^3/uL Basophils # (Auto) 0.0 0.0-0.1 10^3/uL Prothrombin Time 11.4 L 12.2-14.7 SEC INR Comment 0.8 0.8-1.4 Activated Partial Thromboplast Time 27 24-35 SEC Sodium Level 138 135-145 MMOL/L Potassium Level 4.4 3.6-5.0 MMOL/L Chloride Level 102 98-107 MMOL/L Carbon Dioxide Level 28 21-32 MMOL/L Anion Gap 8 5-14 MMOL/L Blood Urea Nitrogen 22 H 7-18 MG/DL Creatinine 1.38 H 0.60-1.30 MG/DL Estimat Glomerular Filtration Rate 53 BUN/Creatinine Ratio 16 Glucose Level 89 70-105 MG/DL Calcium Level 9.4 8.5-10.1 MG/DL Magnesium Level 2.0 1.8-2.4 MG/DL Total Bilirubin 0.2 0.1-1.0 MG/DL Aspartate Amino Transf (AST/SGOT) 18 5-34 U/L Alanine Aminotransferase (ALT/SGPT) 25 0-55 U/L Alkaline Phosphatase 179 H 40-136 U/L Myoglobin 37.4 10.0-92.0 NG/ML Troponin I < 0.30 <0.30 NG/ML Total Protein 7.9 6.4-8.2 GM/DL Albumin 4.1 3.2-4.5 GM/DL My Orders Orders - JENARO, MUKESH Hall MD Ekg Tracing (02/10/17 16:41) Cbc With Automated Diff (02/10/17 16:48) Magnesium (02/10/17 16:48) Chest 1 View, Ap/Pa Only (02/10/17 16:48) Cardiac Profile 1 (02/10/17 16:48) Comprehensive Metabolic Panel (02/10/17 16:48) Myoglobin Serum (02/10/17 16:48) Protime With Inr (02/10/17 16:48) Partial Thromboplastin Time (02/10/17 16:48) O2 (02/10/17 16:48) Monitor-Rhythm Ecg Trace Only (02/10/17 16:48) Lipid Panel (02/11/17 06:00) Aspirin Tablet (Aspirin Tablet) (02/10/17 17:00) Rx-Nitroglycerin Sl Tabs (Rx-Nitrostat S (02/10/17 17:00) Saline Lock/Iv-Start (02/10/17 16:48) Fentanyl Injection (Sublimaze Injection (02/10/17 18:30) Medications Given in ED Current Medications Medications Dose Ordered Sig/Mckenzie Route Start Time Stop Time Status Last Admin Dose Admin Aspirin 325 mg ONCE ONCE PO 02/10/17 17:00 02/10/17 17:01 DC 02/10/17 17:05 325 MG Nitroglycerin 0.4 mg PRN PRN SL 02/10/17 17:00 02/10/17 17:05 0.4 MG Vital Signs/I&O Vital Sign - Last 12Hours 02/10/17 02/10/17 16:35 17:05 Temp 98.4 98.1 Pulse 63 Resp 18 B/P (MAP) 134/82 Pulse Ox 96 O2 Delivery Room Air Blood Pressure Mean: 99 Departure Communication Time/Spoke to Admitting Phy: 18:[address] Lao. Impression Impression: Primary Impression: Chest pain Disposition: ADMITTED INPATIENT Condition: Improved Admissions Decision to Admit Reason: Admit from ER (General) Decision to Admit/Date: Feb 10, 2017 Time/Decision to Admit Time: 18:56 Departure-Patient Inst. Referrals: ANDRES RABAGO DO (PCP/Family) Primary Care Physician MUKESH EASON MD Feb 10, 2017 18:53
--- OUTSIDE RECORDS SUMMARY | 2017-02-10 19:13 | XMS REPORT | Clinical Summary ---
Author Author [facility] Organization [facility] Address Unknown Phone Unavailable Care Team Providers Care Ironing Worker Name Role Phone PCP Unavailable Source Comments Some departments are not documenting in the electronic medical record. If you do not see the information that you expected, contact Release of Information in the Health Information Management department at [phone] for further assistance in locating additional records.[facility] Allergies Active Allergy Reactions Severity Noted Date [...] for Chest Pain. Max of 3 of [place] artery of tablets, call 911. [place] heart with stable angina pectoris (HCC), [...] 01/14/2017 Dysphagia 01/14/2017 GERI (acute kidney injury) ([facility]) 01/13/2017 Unstable angina ([facility]) 08/13/2016 Coronary artery disease of [place] artery of [place] heart with stable angina 08/09/2016 pectoris ([facility]) Overview: 07/29/16: heart cath ([place] [place], [place]) - total occlusion of the right [...] Date Type Specialty Care Team Description 01/12/2017 [facility] Neurosurgery Julianna Baer Weakness - Encounter MD 01/14/2017 Yair Pisano MD Wang, Yunxia, MD 01/12/2017 Hospital Radiology Encounter 01/12/2017 Hospital Radiology Encounter 01/12/2017 Hospital Radiology Encounter 01/12/2017 Procedure Pass Neurosurgery 01/12/2017 Hospital Radiology Encounter 01/12/2017 Procedure Pass Neurosurgery 01/12/2017 Procedure Pass Neurosurgery 01/12/2017 Procedure Pass Neurosurgery 01/12/2017 Procedure Pass Neurosurgery 11/17/2016 Telephone Cardiology Abigail Marie RN Patient Questions 11/16/2016 Telephone Cardiology Abigail aMrie RN Dizziness from Last 3 Months Family [...] Specimen Performing Laboratory [facility] [address] [place] [id number] * BASIC METABOLIC PANEL (01/14/2017 4:40 AM) [...] [facility] [address] [place] [address] * SWALLOW MOTION SERIES (01/13/2017 8:48 AM) [...] Specimen Performing Laboratory [facility] [address] [place] [address] * MAGNESIUM (01/13/2017 3:50 AM) Only the most recent of 2 results within the time period is included. Component Value Ref Range Magnesium 1.8 1.6 - 2.6 mg/dL Specimen Performing Laboratory [facility] [address] [place] [address] * IONIZED CALCIUM (01/13/2017 3:50 AM) Only the most recent of 2 results within the time period is included. Component Value Ref Range Ionized Calcium 1.09 1.0 - 1.3 MMOL/L Specimen Performing Laboratory [facility] [address] [place] [address] * CTA CHEST WO/W CONTRAST+POST IMPRESSION (01/12/2017 [...] Specimen Performing Laboratory [facility] [address] [place] [address] * OPIATES-URINE RANDOM (01/12/2017 2:17 PM) Component Value Ref Range Opiates-Urine NEG NEG-NEG Comment: RESULTS WERE OBTAINED BY IMMUNOASSAY AND ARE PRESUMPTIVE ONLY. POSITIVE INDICATES THE PRESENCE OF SUBSTANCE WITH CHARACTERISTICS SIMILAR TO DRUG-DRUG CLASS OR METABOLITE IN CONC. EQUAL TO OR EXCEEDING VALUES LISTED. OPIATES 200 0 NG/ML Specimen Performing Laboratory [facility] [address] [place] [address] * COCAINE-URINE RANDOM (01/12/2017 2:17 PM) Component Value Ref Range Cocaine-Urine NEG NEG-NEG Comment: RESULTS WERE OBTAINED BY IMMUNOASSAY AND ARE PRESUMPTIVE ONLY. POSITIVE INDICATES THE PRESENCE OF SUBSTANCE WITH CHARACTERISTICS SIMILAR TO DRUG-DRUG CLASS OR METABOLITE IN CONC. EQUAL TO OR EXCEEDING VALUES LISTED. COCAINE 300 NG/ML Specimen Performing Laboratory [facility] [address] [place] [address] * CANNABINOIDS-URINE RANDOM (01/12/2017 2:17 PM) Component Value Ref Range THC NEG NEG-NEG Comment: RESULTS WERE OBTAINED BY IMMUNOASSAY AND ARE PRESUMPTIVE ONLY. POSITIVE INDICATES THE PRESENCE OF SUBSTANCE WITH CHARACTERISTICS SIMILAR TO DRUG-DRUG CLASS OR METABOLITE IN CONC. EQUAL TO OR EXCEEDING VALUES LISTED. CANNABINOIDS 50 NG/ML Specimen Performing Laboratory [facility] [address] [place] [address] * BENZODIAZEPINES-URINE RANDOM (01/12/2017 2:17 PM) Component Value Ref Range Benzodiazepines NEG NEG-NEG Comment: RESULTS WERE OBTAINED BY IMMUNOASSAY AND ARE PRESUMPTIVE ONLY. POSITIVE INDICATES THE PRESENCE OF SUBSTANCE WITH CHARACTERISTICS SIMILAR TO DRUG-DRUG CLASS OR METABOLITE IN CONC. EQUAL TO OR EXCEEDING VALUES LISTED. BENZODIAZEPINES 200 NG/ML Specimen Performing Laboratory [facility] [address] [place] [address] * BARBITURATES-URINE RANDOM (01/12/2017 2:17 PM) Component Value Ref Range Barbiturates,Urine NEG NEG-NEG Comment: RESULTS WERE OBTAINED BY IMMUNOASSAY AND ARE PRESUMPTIVE ONLY. POSITIVE INDICATES THE PRESENCE OF SUBSTANCE WITH CHARACTERISTICS SIMILAR TO DRUG-DRUG CLASS OR METABOLITE IN CONC. EQUAL TO OR EXCEEDING VALUES LISTED. BARBITURATES 200 NG/ML Specimen Performing Laboratory Urine [facility] [address] [place] [address] * AMPHETAMINES-URINE RANDOM (01/12/2017 2:17 PM) Component Value Ref Range Amphetamines NEG NEG-NEG Comment: RESULTS WERE OBTAINED BY IMMUNOASSAY AND ARE PRESUMPTIVE ONLY. POSITIVE INDICATES THE PRESENCE OF SUBSTANCE WITH CHARACTERISTICS SIMILAR TO DRUG-DRUG CLASS OR METABOLITE IN CONC. EQUAL TO OR EXCEEDING VALUES LISTED. AMPHETAMINES 1000 NG/ML Specimen Performing Laboratory [facility] [address] [place] [address] * MRI HEAD WO/W CONTRAST (01/12/2017 1:36 [...] 1.24 MG/DL Specimen Performing Laboratory [facility] [address] [place] [address] * TROPONIN-I (01/12/2017 11:48 AM) Only the most recent of 3 results within the time period is included. Component Value Ref Range Troponin-I 0.01 0.0 - 0.05 NG/ML Specimen Performing Laboratory [facility] [address] [place] [address] * LIPID PROFILE (01/12/2017 11:48 AM) Component [...] mg/dL. Specimen Performing Laboratory [facility] [address] [place] [address] * 2-D + DOPPLER ECHOCARDIOGRAM (01/12/2017 8:54 AM) Component Value Ref Range BSA 1.86 m2 Referring Provider Dexter Hernandes CV ECHO PV CHICLE GRINDER FEEDER Floor RN LVIDD 3.3 4.2 - 5.9 [...] Specimen Performing Laboratory [facility] [address] [place] [address] * CBC AND DIFF (01/12/2017 7:34 AM) [...] Performing Laboratory [facility] [address] [place] [address] * HEMOGLOBIN A1C (01/12/2017 7:34 AM) Component Value Ref Range Hemoglobin A1C 5.5 4.0 - 6.0 % Comment: The ADA recommends that most patients with type 1 and type 2 diabetes maintain an A1c level <7%. Specimen Performing Laboratory [facility] [address] [place] [address] * CT BRAIN PERF (01/12/2017 7:25 AM) [...] stenosis. There is origin of the right VICTORIAN LITERATURE PROFESSOR. The anterior, middle, and posterior cerebral arteries [...] stenosis. There is origin of the right VICTORIAN LITERATURE PROFESSOR. The anterior, middle, and posterior cerebral arteries [...] stenosis. There is origin of the right VICTORIAN LITERATURE PROFESSOR. The anterior, middle, and posterior cerebral arteries [...] stenosis. There is origin of the right VICTORIAN LITERATURE PROFESSOR. The anterior, middle, and posterior cerebral arteries [...] stenosis. There is origin of the right VICTORIAN LITERATURE PROFESSOR. The anterior, middle, and posterior cerebral arteries [...] stenosis. There is origin of the right VICTORIAN LITERATURE PROFESSOR. The anterior, middle, and posterior cerebral arteries [...]
--- OUTSIDE RECORDS SUMMARY | 2017-02-10 19:14 | XMS REPORT | Encounter Summary ---
Author Author [facility] Organization [facility] Address Unknown Phone Unavailable Care Team Providers Care Construction Trades Contractor Name Role Phone PCP Unavailable Encounter Details Date Type Department Care Team Description 01/12/2017 Hospital [facility] Encounter Hospital Radiology [address] [place], [place] [id number] Social History Tobacco Use Types Packs/Day Years [...] for Chest Pain. Max of 3 of [place] artery of tablets, call 911. [place] heart with stable angina pectoris (HCC), Essential [...]
--- OUTSIDE RECORDS SUMMARY | 2017-02-10 19:14 | XMS REPORT | Encounter Summary ---
Author Author [facility] Organization [facility] Address Unknown Phone Unavailable Care Team Providers Care Microcomputer Technician Name Role Phone PCP Unavailable Encounter Details Date Type Department Care Team Description 01/12/2017 Procedure Pass Neuroscience & ENT ICU [address] [place] [address] Social History Tobacco Use Types [...]
--- OUTSIDE RECORDS SUMMARY | 2017-02-10 19:14 | XMS REPORT | Encounter Summary ---
Author Author [facility] Organization [facility] Address Unknown Phone Unavailable Care Team Providers Care Payment Collector Name Role Phone PCP Unavailable Encounter Details Date Type Department Care Team Description 01/12/2017 Hospital [facility] Encounter Hospital Radiology [address] [place], [place] [id number] Social History Tobacco Use Types Packs/Day Years [...] for Chest Pain. Max of 3 of [place] artery of tablets, call 911. [place] heart with stable angina pectoris (HCC), [...]
--- OUTSIDE RECORDS SUMMARY | 2017-02-10 19:14 | XMS REPORT | Encounter Summary ---
Author Author [facility] Organization [facility] Address Unknown Phone Unavailable Care Team Providers Care Profiler Name Role Phone PCP Unavailable Encounter Details Date Type Department Care Team Description 01/12/2017 Hospital Neuroscience & E[facility] ICU Julianna Baer, [place] - Encounter [address]. 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 He was initially presented to the [place], [place] ED with chest pain. 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 Your last blood pressure was BP: 164/84, [...] cause. Return Appointment For Neurology scheduling contact [phone] For Neurosurgery appointments call [phone] Questions About Your Stay STANDARD For questions or concerns regarding your hospital stay: -DURING BUSINESS HOURS (8:00 AM - 4:30 PM): Call [phone] and ask to be transferred to your discharge attending physician. -AFTER BUSINESS HOURS (4:30 PM - 8:00 AM, on weekends, or holidays): Call [phone] and ask the stone spreader operator to page the on-call doctor for the discharge attending physician. Discharging attending physician: GIRISH TELLEZ [[id number]] Low Fat / Low Cholesterol Diet Your goal is to limit the amount of saturated and trans fats in your diet. Keep track of how much cholesterol you eat and limit the total amount to 200mg ( milligrams) a day. If you have questions about your diet after you go home, you can call a dietitian at [phone]. 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 Max of 3 of tangirnaq artery of tablets, call 911. 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 He was initially presented to the [place], [place] ED with chest pain. He had [...] 5.5 - ECHO unremarkable. Plan: - Resumed SAP FICO BUSINESS ANALYST ASA and Plavix - Started on Simvastatin [...] Counseled to quit drugs - Cleared by PT/OT/SCHEDULE MAKER/Rehab - s/p video swallow, now cleared by speech. Bradycaria - Cardiology consulted and following for bradycardia, . > SAP FICO BUSINESS ANALYST BB held per cardiology HTN > restarted [...] his R side. He reports eating a [employer] breakfast sandwich this morning without difficulty. He [...] for: PHART, PCO2A, PO2ART, HCO3A, BASEEXA, BASEDEFA, [id number] Lab Results Component Value Date HGB 12.1 [...] 0.9 01/12/2017 No results found for: TSH, NYSDY0Y, CORTRAN Lab Results Component Value Date CHOL 231 (H) 01/12/2017 TRIG 216 (H) 01/12/2017 HDL 35 (L) 01/12/2017 LDL 152 (H) 01/12/2017 VLDL 43 01/12/2017 No results found for: VANRAN, VANPK, VANTR No results found for: CYCLOSPOR, TACROLIMUS, FREEPHENY Point of Care Testing: (Last 24 hours): Glucose: (!) 106 Radiology and Other Diagnostics Review: reviewed Sen Monterroso Neurology Resident PGY 2 Pager [phone] * Aye Hall MS,CCC-SCHEDULE MAKER - 01/14/2017 11:45 AM CDT SPEECH-LANGUAGE PATHOLOGY NO TREATMENT NOTE Chart reviewed and made contact with RN. Pt tolerating diet and PO meds well with no overt s/s aspiration. Speech, swallow, cognition appear to have returned to baseline. Do not anticipate ongoing SCHEDULE MAKER needs. Therapist: Aye Hall MS,CCC-SCHEDULE MAKER [phone] Date: 01/14/2017 * Albania Díaz MD - 01/13/2017 2:51 PM CDT Formatting of this note may be different from the original. 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 No evidence of recent SC. -- Sinus rhythm today. Normal AV conduction. [...] page with questions. After 5PM please call chief operations officer sharepoint application architect. Tuesday - Tuesday 8AM-5PM please call Cardiology consult pager. Pt was seen and discussed with Dr. Charlie MD. Albania Díaz MD PGY-1 Internal Medicine Pager [phone] __ Subjective: Kaz Restrepo is a 56 [...] carvedilol. 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 Also possible [...] Mr. Restrepo has no history of recent SC, LV dysfunction, or heart failure. Lipid profile [...] if we may assist. Catrachito Guerra M.D. 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 male with h/o HTN, HLD, Substance abuse, tobacco use , CAD s/p stents presented with right sided weakness, right facial droop and apahsia. He was initially presented to the [place], [place] ED with chest pain. He had [...] 5.5 - ECHO unremarkable. Plan: - Resumed SAP FICO BUSINESS ANALYST ASA and Plavix - Started on Simvastatin 40 in ICU. - Continue PT/OT/SCHEDULE MAKER/Rehab - s/p video swallow - on mechanical [...] for: PHART, PCO2A, PO2ART, HCO3A, BASEEXA, BASEDEFA, [id number] Lab Results Component Value Date HGB 12.4 [...] 0.9 01/12/2017 No results found for: TSH, SQAPM4S, CORTRAN Lab Results Component Value Date CHOL 231 (H) 01/12/2017 TRIG 216 (H) 01/12/2017 HDL 35 (L) 01/12/2017 LDL 152 (H) 01/12/2017 VLDL 43 01/12/2017 No results found for: VANRAN, SHERRYPK, VANTR No results found for: CYCLOSPOR, TACROLIMUS, FREEPHENY Point of Care Testing: (Last 24 hours): Glucose: 90 Radiology and Other Diagnostics Review: reviewed Nataliya Barajas MD, MPH Neurology Resident PGY 4 Pager [phone] * Yair Pisano MD - 01/13/2017 11:27 [...] angina (HCC) 08/13/2016 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 Patient examined: yes Objective: I have [...] optimize venous drainage Maintain normothermia, avoid hypoxemia, [place] appropriate osmotherapy ( i.e mannitol vs Hypertonic [...] CAD s/p stenting -asa and clopidogrel, restart SAP FICO BUSINESS ANALYST Imdur and losartan; 5) Chest Pain - [...] at risk for aspiration. Social work and embedded case manager for discharge planning and placement. Family Meeting and update: yes. Patient is able to make his or her decisions, family updated during rounds. Goals of therapy: Addressed, Patient is a full code Nurses concerns addressed. Disposition/Family: Transfer to neurology service X Yair G. Norris, MD Coning Machine Operator, Department of Neurology and Neurosurgery Pager: [phone] Date: 01/13/2017 X * Mai Pedersen, OT - 01/13/2017 11:13 AM CDT Formatting of this note may be different from the original. 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 Taken by herb to [facility] ED. BP slightly elevated on arrival. Treated with sublingual and topical NTG. UDS + amphetamine. Developed right facial droop, aphasia or dysarthria, flaccid right hemiplegia, and left-sided weakness. Presumed to have acute stroke. CT head w/o contrast negative for hemorrhage. Treated with tPA and transferred to Stroke Center at [facility]. Neurologically improved when compared with description from [...] Patient Response: Verbalized Understanding Therapist: Aye Hall MS,CCC-SCHEDULE MAKER [phone] Date: 01/13/2017 * Zully Castelan APRN-SALES DEPARTMENT CLERK - 01/13/2017 6:29 AM CDT Formatting of this note may be different from the original. 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) 08/09/2016 07/29/16: heart cath ([place]ia [place], [place]) - total occlusion of the right [...] Plan: - LDL 152, goal < 70- SAP FICO BUSINESS ANALYST crestor increased to 20mg today - A1C 5.5 - ASA 81 and Plavix 75mg daily- resume today - PT/OT/SCHEDULE MAKER/Rehab consulted Cardiac: hx of HTN, CAD, HLD, chest pain, bradycardia Echo 01/12: EF 65%, mild LVH, no shunt/thrombus CTA chest 01/12: negative for PE - cards consulted, appreciate recs - continue holding SAP FICO BUSINESS ANALYST coreg 12.5mg QD - will restart imdur 60mg daily today, consider restarting losartan 50mg daily if needed for BP control - SBP goal: <160 - MAP goal > 65 - crestor daily Respiratory: H/o tobacco abuse - smoking cessation - Stable on room air - Spo2 goal >95% GI: H/O GERD, Dysphagia - Feeding: regular diet - SCHEDULE MAKER following- video swallow negative for aspiration, diet [...] DC IVF - Magnesium goal >2.0, i-Carlos Eduarod goal > 1.0, Potassium goal >4.0 mEq/L [...] radiologic and diagnostic procedures reviewed. Zully Castelan, SUPERVISOR MAINSPRING FABRICATION-SALES DEPARTMENT CLERK Date: 01/13/[phone] I spent 45 minutes managing the care [...] Resource RN during scan. * Aye Hall, MS,CCC-SCHEDULE MAKER - 01/12/2017 11:11 AM CDT SPEECH-LANGUAGE PATHOLOGY [...] risk of aspirating bacteria in oral secretions SCHEDULE MAKER will follow for dysphagia and dysarthria management. [...] free from respiratory status changes. Therapist:Aye Hall MS,CCC-SCHEDULE MAKER [phone] Date:01/12/2017 * Marie Monroe, RT - [...] Date: 01/12/2017 [place] AC=Airway clearance AM=Aerosolized medication BA=[place] aerosol DB&C=Deep breathe & cough FEV1=Forced expiratory volume in first second) IC=Inspiratory capacity LE=Lung expansion MDI=Metered dose inhaler Neb=Nebulizer O2=Oxygen Oxim=Oximetry PEFR=Peak expiratory flow rate BIOLOGICAL SCIENCES PROFESSOR=Rapid Response Team in this encounter Plan of [...] Performing Laboratory [facility] [address] [place] [address] * BASIC METABOLIC PANEL (01/14/2017 4:40 AM) [...] Performing Laboratory [facility] [address] [place] [address] * SWALLOW MOTION SERIES (01/13/2017 8:48 AM) [...] Specimen Performing Laboratory [facility] [address] [place] [address] * BASIC METABOLIC PANEL (01/13/2017 3:50 AM) [...] Specimen Performing Laboratory [facility] [address] [place] [address] * IONIZED CALCIUM (01/13/2017 3:50 AM) Component Value Ref Range Ionized Calcium 1.09 1.0 - 1.3 MMOL/L Specimen Performing Laboratory [facility] [address] [place] [address] * PHOSPHORUS (01/13/2017 3:50 AM) Component Value Ref Range Phosphorus 3.2 2.0 - 4.0 MG/DL Specimen Performing Laboratory [facility] [address] [place] [address] * MAGNESIUM (01/13/2017 3:50 AM) Component Value Ref Range Magnesium 1.8 1.6 - 2.6 mg/dL Specimen Performing Laboratory [facility] [address] [place] [address] * CTA CHEST WO/W CONTRAST+POST IMPRESSION (01/12/2017 5:59 PM) Specimen Performing Laboratory [facility] RAD RESULTS Addenda Addendum by Aleksey Britt MD on 01/27/2017 5:31 PM Finalized by Aleksey Britt M.D. on 01/12/2017 6:47 PM. Dictated by Mkie Perez M.D. on 01/12/2017 6:26 PM.Addendum: After [...] (PCP) 25 NG/ML Specimen Performing Laboratory Urine [facility] [address] [place] [address] * OPIATES-URINE RANDOM (01/12/2017 2:17 PM) Component Value Ref Range Opiates-Urine NEG NEG-NEG Comment: RESULTS WERE OBTAINED BY IMMUNOASSAY AND ARE PRESUMPTIVE ONLY. POSITIVE INDICATES THE PRESENCE OF SUBSTANCE WITH CHARACTERISTICS SIMILAR TO DRUG-DRUG CLASS OR METABOLITE IN CONC. EQUAL TO OR EXCEEDING VALUES LISTED. OPIATES 200 0 NG/ML Specimen Performing Laboratory [facility] [address] [place] [address] * COCAINE-URINE RANDOM (01/12/2017 2:17 PM) Component Value Ref Range Cocaine-Urine NEG NEG-NEG Comment: RESULTS WERE OBTAINED BY IMMUNOASSAY AND ARE PRESUMPTIVE ONLY. POSITIVE INDICATES THE PRESENCE OF SUBSTANCE WITH CHARACTERISTICS SIMILAR TO DRUG-DRUG CLASS OR METABOLITE IN CONC. EQUAL TO OR EXCEEDING VALUES LISTED. COCAINE 300 NG/ML Specimen Performing Laboratory Urine [facility] [address] [place] [address] * CANNABINOIDS-URINE RANDOM (01/12/2017 2:17 PM) Component Value Ref Range THC NEG NEG-NEG Comment: RESULTS WERE OBTAINED BY IMMUNOASSAY AND ARE PRESUMPTIVE ONLY. POSITIVE INDICATES THE PRESENCE OF SUBSTANCE WITH CHARACTERISTICS SIMILAR TO DRUG-DRUG CLASS OR METABOLITE IN CONC. EQUAL TO OR EXCEEDING VALUES LISTED. CANNABINOIDS 50 NG/ML Specimen Performing Laboratory Urine [facility] [address] [place] [address] * BENZODIAZEPINES-URINE RANDOM (01/12/2017 2:17 PM) Component Value Ref Range Benzodiazepines NEG NEG-NEG Comment: RESULTS WERE OBTAINED BY IMMUNOASSAY AND ARE PRESUMPTIVE ONLY. POSITIVE INDICATES THE PRESENCE OF SUBSTANCE WITH CHARACTERISTICS SIMILAR TO DRUG-DRUG CLASS OR METABOLITE IN CONC. EQUAL TO OR EXCEEDING VALUES LISTED. BENZODIAZEPINES 200 NG/ML Specimen Performing Laboratory Urine [facility] [address] [place] [address] * BARBITURATES-URINE RANDOM (01/12/2017 2:17 PM) Component Value Ref Range Barbiturates,Urine NEG NEG-NEG Comment: RESULTS WERE OBTAINED BY IMMUNOASSAY AND ARE PRESUMPTIVE ONLY. POSITIVE INDICATES THE PRESENCE OF SUBSTANCE WITH CHARACTERISTICS SIMILAR TO DRUG-DRUG CLASS OR METABOLITE IN CONC. EQUAL TO OR EXCEEDING VALUES LISTED. BARBITURATES 200 NG/ML Specimen Performing Laboratory [facility] [address] [place] [address] * AMPHETAMINES-URINE RANDOM (01/12/2017 2:17 PM) Component Value Ref Range Amphetamines NEG NEG-NEG Comment: RESULTS WERE OBTAINED BY IMMUNOASSAY AND ARE PRESUMPTIVE ONLY. POSITIVE INDICATES THE PRESENCE OF SUBSTANCE WITH CHARACTERISTICS SIMILAR TO DRUG-DRUG CLASS OR METABOLITE IN CONC. EQUAL TO OR EXCEEDING VALUES LISTED. AMPHETAMINES 1000 NG/ML Specimen Performing Laboratory [facility] [address] [place] [address] * MRI HEAD WO/W CONTRAST (01/12/2017 1:36 [...] MG/DL Specimen Performing Laboratory MAIN LAB [address] [place] [address] * BASIC METABOLIC PANEL (01/12/2017 11:48 AM) [...] questions. Specimen Performing Laboratory MAIN LAB [address] [place] [address] * LIPID PROFILE (01/12/2017 11:48 AM) Component [...] Specimen Performing Laboratory [facility] [address] [place] [address] * TROPONIN-I (01/12/2017 11:48 AM) Component Value Ref Range Troponin-I 0.01 0.0 - 0.05 NG/ML Specimen Performing Laboratory [facility] [address] [place] [address] * TROPONIN-I (01/12/2017 9:39 AM) Component Value Ref Range Troponin-I 0.01 0.0 - 0.05 NG/ML Specimen Performing Laboratory [facility] [address] [place] [address] * 2-D + DOPPLER ECHOCARDIOGRAM (01/12/2017 8:54 AM) Component Value Ref Range BSA 1.86 m2 Referring Provider Dexter Hernandes CV ECHO PV IVF EMBRYOLOGIST Floor RN LVIDD 3.3 4.2 - 5.9 [...] MMOL/L Specimen Performing Laboratory [facility] [address] [place] [address] * TROPONIN-I (01/12/2017 7:34 AM) Component Value Ref Range Troponin-I 0.01 0.0 - 0.05 NG/ML Specimen Performing Laboratory [facility] [address] [place], [place] [id number] * PHOSPHORUS (01/12/2017 7:34 AM) Component Value Ref Range Phosphorus 3.5 2.0 - 4.0 MG/DL Specimen Performing Laboratory [facility] [address] [place], [place] [id number] * MAGNESIUM (01/12/2017 7:34 AM) Component Value Ref Range Magnesium 1.8 1.6 - 2.6 mg/dL Specimen Performing Laboratory [facility] [address] [place], [place] [id number] * PROTIME INR (PT) (01/12/2017 7:34 AM) Component Value Ref Range INR 0.9 0.8 - 1.2 Specimen Performing Laboratory [facility] [address] [place], [place] [id number] * CBC AND DIFF (01/12/2017 7:34 AM) [...] Specimen Performing Laboratory [facility] [address] [place] [address] * HEMOGLOBIN A1C (01/12/2017 7:34 AM) Component Value Ref Range Hemoglobin A1C 5.5 4.0 - 6.0 % Comment: The ADA recommends that most patients with type 1 and type 2 diabetes maintain an A1c level <7%. Specimen Performing Laboratory [facility] [address] [place] [address] * CT BRAIN PERF (01/12/2017 7:25 AM) [...] stenosis. There is origin of the right NETWORK DESKTOP SUPPORT SPECIALIST. The anterior, middle, and posterior cerebral arteries [...] stenosis. There is origin of the right NETWORK DESKTOP SUPPORT SPECIALIST. The anterior, middle, and posterior cerebral arteries [...] stenosis. There is origin of the right NETWORK DESKTOP SUPPORT SPECIALIST. The anterior, middle, and posterior cerebral arteries [...] stenosis. There is origin of the right NETWORK DESKTOP SUPPORT SPECIALIST. The anterior, middle, and posterior cerebral arteries [...] stenosis. There is origin of the right NETWORK DESKTOP SUPPORT SPECIALIST. The anterior, middle, and posterior cerebral arteries [...] stenosis. There is origin of the right NETWORK DESKTOP SUPPORT SPECIALIST. 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
--- OUTSIDE RECORDS SUMMARY | 2017-02-10 19:14 | XMS REPORT | Encounter Summary ---
Author Author [facility] Organization [facility] Address Unknown Phone Unavailable Care Team Providers Care Ammunition Officer Name Role Phone PCP Unavailable Encounter Details Date Type Department Care Team Description 01/12/2017 Hospital [facility] Encounter Hospital Radiology [address] [place], [place] [id number] Social History Tobacco Use Types Packs/Day Years [...]
--- OUTSIDE RECORDS SUMMARY | 2017-02-10 19:14 | XMS REPORT | Encounter Summary ---
Author Author [facility] Organization [facility] Address Unknown Phone Unavailable Care Team Providers Care Faa Certified Powerplant Mechanic Name Role Phone PCP Unavailable Encounter Details Date Type Department Care Team Description 01/12/2017 Hospital [facility] Encounter Hospital Radiology [address] [place], [place] [id number] Social History Tobacco Use Types Packs/Day Years [...] for Chest Pain. Max of 3 of [place] artery of tablets, call 911. [place] heart with stable angina pectoris (HCC), Essential [...]
--- OUTSIDE RECORDS SUMMARY | 2017-02-10 19:15 | XMS REPORT | Encounter Summary ---
Author Author [facility] Organization [facility] Address Unknown Phone Unavailable Care Team Providers Care Loader Name Role Phone PCP Unavailable Encounter Details Date Type Department Care Team Description 01/12/2017 [facility] [address] [place] [address] Social History Tobacco Use Types [...]
--- OUTSIDE RECORDS SUMMARY | 2017-02-10 19:15 | XMS REPORT | Encounter Summary ---
Author Author [facility] Organization [facility] Address Unknown Phone Unavailable Care Team Providers Care Shake Maker Name Role Phone PCP Unavailable Reason for Visit * Reason Comments Dizziness Encounter Details Date Type Department Care Team Description 11/16/2016 Telephone [facility] Cardiology Abigail Marie RN Dizziness [address] [facility] [address] [place], [place] [id number] Social History Tobacco Use Types Packs/Day Years [...]
--- OUTSIDE RECORDS SUMMARY | 2017-02-10 19:15 | XMS REPORT | Encounter Summary ---
Author Author [facility] Organization [facility] Address Unknown Phone Unavailable Care Team Providers Care Educational Resource Center Teacher Name Role Phone PCP Unavailable Encounter Details Date Type Department Care Team Description 01/12/2017 [facility] [address] [facility] [place] [address] Social History Tobacco Use Types [...]
--- OUTSIDE RECORDS SUMMARY | 2017-02-10 19:15 | XMS REPORT | Encounter Summary ---
Author Author [facility] Organization [facility] Address Unknown Phone Unavailable Care Team Providers Care Legal Support Assistant Name Role Phone PCP Unavailable Reason for Visit * Reason Comments Patient Questions Encounter Details Date Type Department Care Team Description 11/17/2016 Telephone [facility] Cardiology Abigail Marie, ADITYA Patient Questions [address] [place] [address] Social History Tobacco Use Types Packs/Day Years [...]
--- OUTSIDE RECORDS SUMMARY | 2017-02-10 19:15 | XMS REPORT | Encounter Summary ---
Author Author [facility] Organization [facility] Address Unknown Phone Unavailable Care Team Providers Care Engraver Rubber Name Role Phone PCP Unavailable Encounter Details Date Type Department Care Team Description 01/12/2017 [facility] [address] [place] [address] Social History Tobacco Use Types [...]
--- OUTSIDE RECORDS SUMMARY | 2017-02-10 19:15 | XMS REPORT | Encounter Summary ---
Author Author [facility] Organization [facility] Address Unknown Phone Unavailable Care Team Providers Care Automatic Clipper And Stripper Name Role Phone PCP Unavailable Encounter Details Date Type Department Care Team Description 01/12/2017 [facility] [address] [facility] [place] [address] Social History Tobacco Use Types [...]
[2017-02-10] MEDS: fentaNYL INJECTION 100 MCG/2 ML AMP IVP PRN ×2 (19:40→21:39)
[2017-02-10 20:45] VITALS: BP 139/82
[2017-02-10 21:00] VITALS: BP 146/81
[2017-02-10 21:15] VITALS: BP 130/84
[2017-02-10 21:30] VITALS: BP 136/77
[2017-02-10 21:45] VITALS: BP 134/72
[2017-02-10] MEDS ORDERED: OMEGA 3 (FISH OIL) 1000 MG CAP PO ONE (21:53)
[2017-02-10] MEDS ORDERED: ATORVASTATIN 10 MG (LIPITOR) TABLET ONE (21:53)
[2017-02-10] MEDS ORDERED: CLOPIDOGREL 75 MG (PLAVIX) TABLET ONE (21:53)
[2017-02-10] MEDS ORDERED: CARVEDILOL 3.125 MG (COREG) TABLET ONE (21:54)
[2017-02-10] MEDS ORDERED: buPROPion SR 150 MG (WELLBUTRIN SR) TAB PO ONE (21:54)
[2017-02-10] MEDS ORDERED: traZODone 100 MG (DESYREL) TAB ONE (21:54)
[2017-02-10] MEDS ORDERED: ONDANSETRON 4 MG/2 ML (SDV) Z0FRAN IV PRN (22:00)
[2017-02-10] MEDS ORDERED: morphine INJ 4 MG/ML 1 ML (VIAL/SYRINGE) IV PRN (22:00)
[2017-02-10] MEDS ORDERED: NITROGLYCERIN SUBLINGUAL 0.4 MG TAB (NITROSTAT) SL PRN ×2 (22:00)
[2017-02-11] VITALS: BP 101/52
[2017-02-11] MEDS: fentaNYL INJECTION 100 MCG/2 ML AMP IV PRN ×2 (03:50→07:56)
[2017-02-11 04:00] VITALS: BP 110/62
[2017-02-11 04:28] LABS: BASOPHILS % (AUTO) 1 % (0-10); EOSINOPHILS # (AUTO) 0.4 10^3/uL (0.0-0.3); EOSINOPHILS % (AUTO) 9 % (0-10); LYMPHOCYTES # (AUTO) 1.3 X 10^3 (1.0-4.0); LYMPHOCYTES % (AUTO) 28 % (12-44); MEAN CORPUSCULAR HEMOGLOBIN 30 PG (25-34); MEAN CORPUSCULAR HGB CONC 33 G/DL (32-36); MEAN CORPUSCULAR VOLUME 92 FL (80-99); MONOCYTES # (AUTO) 0.7 X 10^3 (0.0-1.0); MONOCYTES % (AUTO) 15 % (0-12); NEUTROPHILS # (AUTO) 2.1 X 10^3 (1.8-7.8); NEUTROPHILS % (AUTO) 47 % (42-75); PLATELET COUNT 256 10^3/uL (130-400); RED CELL DISTRIBUTION WIDTH 12.7 % (10.0-14.5); WHITE BLOOD COUNT 4.6 10^3/uL (4.3-11.0)
[2017-02-11 04:50] LABS: ALBUMIN 3.7 GM/DL (3.2-4.5); BILIRUBIN,TOTAL 0.1 MG/DL (0.1-1.0); CALCIUM 9.3 MG/DL (8.5-10.1); CREATININE SERUM 1.41 MG/DL (0.60-1.30); POTASSIUM 4.2 MMOL/L (3.6-5.0); TOTAL PROTEIN 6.6 GM/DL (6.4-8.2)
[2017-02-11 08:00] VITALS: BP 155/86
--- NOTE | 2017-02-11 08:25 | Short Stay Summary ---
History of Present Illness History of Present Illness Reason for visit/HPI 56 years old gentleman with history of peripheral artery disease, coronary artery disease, was discharged recently from the hospital due to TIA. He returned to the emergency room complaining of chest pain described as dull in nature and reported having generalized body ache he has lower extremity pain up her extremity pain and headache back pain and neck pain. He expressed that he has stopped smoking, did not take any Lipitor. Otherwise he was taking his medication, admit having some shortness of breath. No syncope or near syncopal episodes no claudication. Patient is fairly concerned about his generalized body ache. Date of Admission Feb 10, 2017 at 18:40 Date of Discharge February 11, 2017 Time Seen by Provider: 08:19 Attending Physician Leroy Lao MD Admitting Physician Silver Hernandes DO Consult Allergies and Home Medications Allergies Coded Allergies: penicillin G (Verified Allergy, Severe, SWELLING, 12/23/11) Home Medications Amlodipine Besylate 10 Mg Tablet, 10 MG PO DAILY, (Reported) Aspirin 81 Mg Tablet.dr, 81 MG PO DAILY, (Reported) Atorvastatin Calcium 10 Mg Tablet, 10 MG PO HS, #30 Ref 4 Prescribed by: LEROY LAO on 02/03/17 0959 Bupropion HCl 150 Mg Tablet.er, 150 MG PO BID, (Reported) Carvedilol 3.125 Mg Tablet, 3.125 MG PO BID, #60 Ref 4 Prescribed by: LEROY LAO on 02/03/1759 Clonidine HCl 0.1 Mg Tablet, 0.1 MG PO TID, #90 Ref 4 Prescribed by: LEROY LAO on 02/03/17 0959 Clopidogrel Bisulfate 75 Mg Tablet, 75 MG PO HS, (Reported) Isosorbide Mononitrate 60 Mg Tab, 60 MG PO DAILY, (Reported) Losartan Potassium 50 Mg Tablet, 100 MG PO DAILY, (Reported) Nitroglycerin 0.4 Mg Tab.subl, 0.4 MG SL UD PRN for CHEST PAIN, (Reported) PLACE 1 TAB UNDER TONGUE NEEDED FOR CHEST PAIN; IF PAIN REMAINS AFTER 5 MINUTES, CALL 911 Buford-3 Fatty Acids/Fish Oil 1 Each Capsule, 1,000 MG PO BID, (Reported) Sertraline HCl 50 Mg Tablet, 50 MG PO DAILY, (Reported) Trazodone HCl 100 Mg Tablet, 100 MG PO HS, (Reported) Past Ytibpns-Bstvww-Zcctwr Hx Patient Social History Marrital Status: Employed/Student: unemployed Alcohol Use: Occasionally Uses Number of Drinks Today: AA Alcohol Beverage of Choice: Beer Recreational Drug Use: No Type Used: Cigarettes 2nd Hand Smoke Exposure: Yes Physical Abuse Screen: No Sexual Abuse: No Recent Foreign Travel: No Contact w/other who traveled: No Recent Hopitalizations: No Recent Infectious Disease Expo: No Immunizations Up To Date Tetanus Booster (TDap): Less than 5yrs Pediatric: No Date of Influenza Vaccine: Dec 28, 2014 Seasonal Allergies Seasonal Allergies: No Surgeries Yes (hernia) Abdominal, Coronary Stent, Orthopedic Respiratory No Currently Using CPAP: No Currently Using BIPAP: No Cardiovascular Yes (CARDIAC STENTS) Coronary Artery Disease, Deep Vein Thrombosis, Heart Attack, High Cholesterol, Hypertension Neurological Yes Stroke, TIA Reproductive System Hx Reproductive Disorders: No Sexually Transmitted Disease: No Genitourinary No Gastrointestinal Yes Gastroesophageal Reflux, Hiatal Hernia, Ulcer Musculoskeletal No Endocrine History of Endocrine Disorders: No HEENT History of HEENT Disorders: No Loss of Vision: Denies Cancer No Psychosocial History of Psychiatric Problem: Yes Behavioral Health Disorders: Depression Integumentary History of Skin or Integumenta: No Blood Transfusions History of Blood Disorders: No Adverse Reaction to a Blood Tr: No Reviewed Nursing Assessment Reviewed/Agree w Nursing PMH: Yes Family Medical History Significant Family History: Heart Disease, Hypertension Family Hx: 19 MOTHER Arthritis Hypertension Hypercholesterolemia G8 SISTER BLADDER BLOWER Relation not specified for: FH: COPD (chronic obstructive pulmonary disease) Constitutional: see HPI, malaise, weakness EENTM: see HPI, no symptoms reported Respiratory: see HPI, No cough, dyspnea on exertion, No hemoptysis, No orthopnea, No phlegm, short of breath, No stridor, No wheezing, No other Cardiovascular: see HPI, chest pain, No edema, No Hx of Intervention, No palpitations, No syncope, No vascular heart diseas, No other Gastrointestinal: no symptoms reported, see HPI Genitourinary: no symptoms reported, see HPI Musculoskeletal: see HPI, back pain, joint pain, muscle pain, neck pain Skin: no symptoms reported, see HPI Psychiatric/Neurological: No Symptoms Reported, See HPI Physical Exam Vital Signs Vital Sign - Last 12Hours 02/10/17 16:35 Temp 98.4 Pulse 63 Resp 18 B/P (MAP) 134/82 Pulse Ox 96 O2 Delivery Room Air Capillary Refill : Less Than 3 Seconds General Appearance: No Apparent Distress, WD/WN Eyes: Bilateral Eye Normal Inspection, Bilateral Eye PERRL, Bilateral Eye EOMI HEENT: PERRL/EOMI, TMs Normal, Normal ENT Inspection, Pharynx Normal Neck: Full Range of Motion, Normal Inspection, Non Tender, Supple, Carotid Bruit Respiratory: Chest Non Tender, Lungs Clear, Normal Breath Sounds, No Accessory Muscle Use, No Respiratory Distress Cardiovascular: Regular Rate, Rhythm, No Edema, No Gallop, No JVD, No Murmur, Normal Peripheral Pulses Gastrointestinal: Normal Bowel Sounds, No Organomegaly, No Pulsatile Mass, Non Tender, Soft Back: Normal Inspection, No CVA Tenderness, No Vertebral Tenderness Extremity: Normal Capillary Refill, Normal Inspection, Normal Range of Motion, Non Tender, No Calf Tenderness, No Pedal Edema Neurologic/Psychiatric: Alert, Oriented x3, No Motor/Sensory Deficits, Normal Mood/Affect Skin: Normal Color, Warm/Dry Lymphatic: No Adenopathy Clinical Quality Measures AMI/AHF: ASA po Prior to arrival: No DVT/VTE Risk/Contraindication: Risk Factor Score Per Nursin RFS Level Per Nursing on Admit: 1=Low/No VTE PPX Short Stay Diagnosis Discharge Diagnosis-Short Stay Admission Diagnosis: chest pain nonspecific etiology Coronary artery disease Hypertension Hyperlipidemia Final Discharge Diagnosis: chest pain nonspecific etiology Coronary artery disease Hypertension Hyperlipidemia Conclusion Labs Laboratory Tests 02/10/17 16:57: White Blood Count 6.0, Red Blood Count 4.13L, Hemoglobin 12.7L, Hematocrit 38L, Mean Corpuscular Volume 92, Mean Corpuscular Hemoglobin 31, Mean Corpuscular Hemoglobin Concent 33, Red Cell Distribution Width 12.6, Platelet Count 302, Mean Platelet Volume 10.0, Neutrophils (%) (Auto) 54, Lymphocytes (%) (Auto) 25 , Monocytes (%) (Auto) 13H, Eosinophils (%) (Auto) 7, Basophils (%) (Auto) 1, Neutrophils # (Auto) 3.3, Lymphocytes # (Auto) 1.5, Monocytes # (Auto) 0.8, Eosinophils # (Auto) 0.4H, Basophils # (Auto) 0.0, Prothrombin Time 11.4L, INR Comment 0.8, Activated Partial Thromboplast Time 27, Sodium Level 138, Potassium Level 4.4, Chloride Level 102, Carbon Dioxide Level 28, Anion Gap 8, Blood Urea Nitrogen 22H, Creatinine 1.38H, Estimat Glomerular Filtration Rate 53 , BUN/Creatinine Ratio 16, Glucose Level 89, Calcium Level 9.4, Magnesium Level 2.0, Total Bilirubin 0.2, Aspartate Amino Transf (AST/SGOT) 18, Alanine Aminotransferase (ALT/SGPT) 25, Alkaline Phosphatase 179H, Myoglobin 37.4, Troponin I < 0.30, Total Protein 7.9, Albumin 4.1 02/10/17 23:06: Troponin I < 0.30 02/11/17 04:03: White Blood Count 4.6, Red Blood Count 4.00L, Hemoglobin 12.1L, Hematocrit 37L, Mean Corpuscular Volume 92, Mean Corpuscular Hemoglobin 30, Mean Corpuscular Hemoglobin Concent 33, Red Cell Distribution Width 12.7, Platelet Count 256, Mean Platelet Volume 10.0, Neutrophils (%) (Auto) 47, Lymphocytes (%) (Auto) 28 , Monocytes (%) (Auto) 15H, Eosinophils (%) (Auto) 9, Basophils (%) (Auto) 1, Neutrophils # (Auto) 2.1, Lymphocytes # (Auto) 1.3, Monocytes # (Auto) 0.7, Eosinophils # (Auto) 0.4H, Basophils # (Auto) 0.0, Sodium Level 140, Potassium Level 4.2, Chloride Level 102, Carbon Dioxide Level 27, Anion Gap 11, Blood Urea Nitrogen 25H, Creatinine 1.41H, Estimat Glomerular Filtration Rate 52, BUN/ Creatinine Ratio 18, Glucose Level 89, Calcium Level 9.3, Total Bilirubin 0.1, Aspartate Amino Transf (AST/SGOT) 14, Alanine Aminotransferase (ALT/SGPT) 20, Alkaline Phosphatase 156H, Total Protein 6.6, Albumin 3.7, Triglycerides Level 285H, Cholesterol Level 225H, LDL Cholesterol Direct 141H, VLDL Cholesterol 57H , HDL Cholesterol 38L Conclusion/Plan Chest pain, chronic stable angina, still having recurrent pain on and off. Cardiac enzymes and EKG did not show any abnormality. Generalized body ache, lower extremity pain, upper extremity pain, headache, back pain and neck pain. General fatigue and loss of energy. Depression. Transient ischemic attack, recent CVA occurred last week. Source is unknown, patient was started on Eliquis on the last admission process patient of cardiac thrombus, the last echo that was done in July 2016 showed questionable healed vegetation on the aortic cusp with moderate aortic regurgitation, it could be the source of his recurrent CVA/TIA, I am planning to proceed with PETER evaluation and restart aspirin and Plavix. The use of Eliquis will increase the risk of bleeding, he does not have any documented atrial fibrillation in the past. carotid ultrasound was reported to have heavy atherosclerotic plaques but no obstructive disease, MRI did not show any acute abnormality. PETER showed echogenic density on the left aortic cusp most probably aortic valve sclerosis, unlikely to be healed vegetation. Measuring 0.80.7 centimeters, the valve is functioning normally, LV is normal. Coronary artery disease, cardiac catheterization carried out July 27, 2016 revealed total occlusion of right coronary artery, severe stenosis at the proper circumflex artery, ostial circumflex stenosis, LAD had moderate disease. IVUS showed 60 percent stenosis, underwent stenting to the right coronary artery with excellent results. Patient underwent multiple cardiac catheterizations in the month of July due to his ongoing chest pain. Most recent cardiac catheterization carried out by Dr. Ortiz on August 14, 2016 revealed widely patent stented portion of the RCA which was completely occluded before. Malposition of stents in the mid to distal RCA from positive remodeling , likely in a dissection plane site during the complex CLERICAL ADMINISTRATOR. Recommended conservative management for the area rather than ballooning it, probably it will thrombose without affecting the stent. Distal circumflex artery with 90 percent stenosis, small vessel supplying very small amount of myocardium. Patient's discomfort is incessant, unchanged after the PCI of the RCA. educated about compliance with medication, I will arrange for evaluation at [facility] Echocardiogram showed normal LV function, PETER showed echogenic density on the left aortic cusp, valve is functioning normally, unlikely to be the source of his stroke. Hypertension, labile blood pressure, educated about compliance with medications. Continue to monitor Hyperlipidemia, continue on statin and monitor Claudication pain-complains of claudication pain to bilateral lower extremity at distances of 2-3 blocks. Denies any rest pain, ulceration, or gangrene, Normal LOLIS Headache-complains of intermittent headache over the past several months. No change after blood pressure is better controlled. Recommend follow-up with primary care physician. History of elevated LFTs-continue to monitor. GERD with history of gastritis, continue on Protonix Tobaccoism-patient was once again educated on importance of smoking cessation. 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
[2017-02-11] MEDS ORDERED: buPROPion SR 150 MG (WELLBUTRIN SR) TAB PO SCH (09:00)
[2017-02-11] MEDS ORDERED: SERTRALINE 50 MG (ZOLOFT) TABLET PO SCH (09:00)
[2017-02-11] MEDS ORDERED: ASPIRIN E.C. 325 MG (ECOTRIN) TABLET PO SCH (09:00)
[2017-02-11] MEDS ORDERED: amLODIPine 10 MG (NORVASC) TAB PO SCH (09:00)
[2017-02-11] MEDS ORDERED: ISOSORBIDE MONONITRATE 60 MG (IMDUR) TAB PO SCH (09:00)
[2017-02-11] MEDS ORDERED: LOSARTAN 50 MG (COZAAR) TAB PO SCH (09:00)
[2017-02-11] MEDS ORDERED: meTOprolol TARTRATE 25 MG (LOPRESSOR) TABLET PO SCH (09:00)
[2017-02-11] MEDS ORDERED: cloNIDine 0.1 MG (CATAPRES) TAB PO SCH (09:00)
[2017-02-11] MEDS ORDERED: OMEGA 3 (FISH OIL) 1000 MG CAP PO SCH (09:00)
[2017-02-11] MEDS ORDERED: CARVEDILOL 3.125 MG (COREG) TABLET PO SCH (09:00)
[2017-02-11] MEDS ORDERED: ASPIRIN E.C. 81 MG (ECOTRIN) TAB PO SCH (09:00)
[2017-02-11 10:30] VITALS: BP 155/86
[2017-02-11] MEDS ORDERED: CLOPIDOGREL 75 MG (PLAVIX) TABLET PO SCH (21:00)
[2017-02-11] MEDS ORDERED: traZODone 100 MG (DESYREL) TAB PO SCH (21:00)
[2017-02-11] MEDS ORDERED: ATORVASTATIN 10 MG (LIPITOR) TABLET PO SCH (21:00)
== END 2017-02-11 08:26 | disposition home or self-care (01) ==
LOC: EDUNIT# 16:31 → ER 16:33 → ICU 18:40 → UNDOADMOB 18:40 → ICU 20:40 → UNDODISOB 02-11 10:30
PROVIDERS: ADMIT Internal Medicine Cardiovascular Disease; ATTEND Internal Medicine Cardiovascular Disease
DX: R07.9 Chest pain, unspecified (principal); I10 Essential (primary) hypertension; E78.5 Hyperlipidemia, unspecified; I25.10 Atherosclerotic heart disease of native coronary artery without angina pectoris; I25.2 Old myocardial infarction; K21.9 Gastro-esophageal reflux disease without esophagitis; K44.9 Diaphragmatic hernia without obstruction or gangrene; I73.9 Peripheral vascular disease, unspecified; F15.90 Other stimulant use, unspecified, uncomplicated; F17.201 Nicotine dependence, unspecified, in remission; Z79.82 Long term (current) use of aspirin; Z79.899 Other long term (current) drug therapy; Z79.02 Long term (current) use of antithrombotics/antiplatelets; Z95.5 Presence of coronary angioplasty implant and graft; Z86.73 Personal history of transient ischemic attack (TIA), and cerebral infarction without residual deficits
CPT/HCPCS: 36415; 71010; 80053; 80061; 83735; 83874; 84484; 85025; 85610; 85730; 93005; 93041; 96374; 99211

== ENCOUNTER 2017-02-15 14:48 | Emergency (ER) | payer OTHER ==
[~2017-02-15] VITALS: Ht 175.3 cm; Wt 73.5 kg
--- OUTSIDE RECORDS SUMMARY | 2017-02-15 14:53 | XMS REPORT | Continuity of Care Document ---
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 Stringing Machine Tender Name Role Phone [employer] Unavailable Unavailable Problems Medications Allergies, Adverse Reactions, Alerts Immunizations Results Vital Signs Encounters Location Location Details Encounter Type Encounter Number Reason For Visit Attending Provider ADM Date DC Date Status Source Jane SMITH 05/16/2017 Active [facility] Procedures Plan of Care Social History Assessment and Plan Family History Value Date Source Advance Directives Order Name Results Value Date Source
--- OUTSIDE RECORDS SUMMARY | 2017-02-15 14:54 | XMS REPORT | Clinical Summary ---
Author Author [facility] Organization [facility] Address Unknown Phone Unavailable Care Team Providers Care Sample Wrapper Name Role Phone PCP Unavailable Source Comments Some departments are not documenting in the electronic medical record. If you do not see the information that you expected, contact Release of Information in the Health Information Management department at [phone] for further assistance in locating additional records.[facility] Allergies Active Allergy Reactions Severity [...] 3 01/15/20 Active mg tablet daily. 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 Specimen Performing Laboratory [facility] [address] [place] [address] * SWALLOW MOTION SERIES (01/13/2017 8:48 AM) [...] Performing Laboratory [facility] [address] [place] [address] * MAGNESIUM (01/13/2017 3:50 AM) Only the most recent of 2 results within the time period is included. Component Value Ref Range Magnesium 1.8 1.6 - 2.6 mg/dL Specimen Performing Laboratory [facility] [address] [place] [address] * IONIZED CALCIUM (01/13/2017 3:50 AM) Only the most recent of 2 results within the time period is included. Component Value Ref Range Ionized Calcium 1.09 1.0 - 1.3 MMOL/L Specimen Performing Laboratory [facility] [address] [place] [address] * CTA CHEST WO/W CONTRAST+POST IMPRESSION (01/12/2017 [...] (PCP) 25 NG/ML Specimen Performing Laboratory Urine [facility] [address] [place] [id number] * OPIATES-URINE RANDOM (01/12/2017 2:17 PM) Component Value Ref Range Opiates-Urine NEG NEG-NEG Comment: RESULTS WERE OBTAINED BY IMMUNOASSAY AND ARE PRESUMPTIVE ONLY. POSITIVE INDICATES THE PRESENCE OF SUBSTANCE WITH CHARACTERISTICS SIMILAR TO DRUG-DRUG CLASS OR METABOLITE IN CONC. EQUAL TO OR EXCEEDING VALUES LISTED. OPIATES 200 0 NG/ML Specimen Performing Laboratory Urine [facility] [address] [place] [address] * COCAINE-URINE RANDOM (01/12/2017 2:17 PM) Component Value Ref Range Cocaine-Urine NEG NEG-NEG Comment: RESULTS WERE OBTAINED BY IMMUNOASSAY AND ARE PRESUMPTIVE ONLY. POSITIVE INDICATES THE PRESENCE OF SUBSTANCE WITH CHARACTERISTICS SIMILAR TO DRUG-DRUG CLASS OR METABOLITE IN CONC. EQUAL TO OR EXCEEDING VALUES LISTED. COCAINE 300 NG/ML Specimen Performing Laboratory Urine [facility] [address] [place] [address] * CANNABINOIDS-URINE RANDOM (01/12/2017 2:17 PM) Component Value Ref Range THC NEG NEG-NEG Comment: RESULTS WERE OBTAINED BY IMMUNOASSAY AND ARE PRESUMPTIVE ONLY. POSITIVE INDICATES THE PRESENCE OF SUBSTANCE WITH CHARACTERISTICS SIMILAR TO DRUG-DRUG CLASS OR METABOLITE IN CONC. EQUAL TO OR EXCEEDING VALUES LISTED. CANNABINOIDS 50 NG/ML Specimen Performing Laboratory Urine [facility] [address] [place] [address] * BENZODIAZEPINES-URINE RANDOM (01/12/2017 2:17 PM) Component Value Ref Range Benzodiazepines NEG NEG-NEG Comment: RESULTS WERE OBTAINED BY IMMUNOASSAY AND ARE PRESUMPTIVE ONLY. POSITIVE INDICATES THE PRESENCE OF SUBSTANCE WITH CHARACTERISTICS SIMILAR TO DRUG-DRUG CLASS OR METABOLITE IN CONC. EQUAL TO OR EXCEEDING VALUES LISTED. BENZODIAZEPINES 200 NG/ML Specimen Performing Laboratory Urine [facility] [address] [place] [address] * BARBITURATES-URINE RANDOM (01/12/2017 2:17 PM) Component Value Ref Range Barbiturates,Urine NEG NEG-NEG Comment: RESULTS WERE OBTAINED BY IMMUNOASSAY AND ARE PRESUMPTIVE ONLY. POSITIVE INDICATES THE PRESENCE OF SUBSTANCE WITH CHARACTERISTICS SIMILAR TO DRUG-DRUG CLASS OR METABOLITE IN CONC. EQUAL TO OR EXCEEDING VALUES LISTED. BARBITURATES 200 NG/ML Specimen Performing Laboratory Urine [facility] [address] [place] [address] * AMPHETAMINES-URINE RANDOM (01/12/2017 2:17 PM) Component Value Ref Range Amphetamines NEG NEG-NEG Comment: RESULTS WERE OBTAINED BY IMMUNOASSAY AND ARE PRESUMPTIVE ONLY. POSITIVE INDICATES THE PRESENCE OF SUBSTANCE WITH CHARACTERISTICS SIMILAR TO DRUG-DRUG CLASS OR METABOLITE IN CONC. EQUAL TO OR EXCEEDING VALUES LISTED. AMPHETAMINES 1000 NG/ML Specimen Performing Laboratory Urine [facility] [address] [place] [address] * MRI HEAD WO/W CONTRAST (01/12/2017 1:36 [...] 0.4 - 1.24 MG/DL Specimen Performing Laboratory [facility] [address] [place] [address] * TROPONIN-I (01/12/2017 11:48 AM) Only the most recent of 3 results within the time period is included. Component Value Ref Range Troponin-I 0.01 0.0 - 0.05 NG/ML Specimen Performing Laboratory [facility] [address] [place] [address] * LIPID PROFILE (01/12/2017 11:48 AM) Component [...] Specimen Performing Laboratory [facility] [address] [place] [address] * 2-D + DOPPLER ECHOCARDIOGRAM (01/12/2017 8:54 AM) Component Value Ref Range BSA 1.86 m2 Referring Provider Dexter Hernandes CV ECHO PV DIESEL FLEET MECHANIC Floor RN LVIDD 3.3 4.2 - 5.9 [...] Specimen Performing Laboratory [facility] [address] [place] [address] * CBC AND DIFF (01/12/2017 7:34 AM) [...] Specimen Performing Laboratory [facility] [address] [place] [address] * HEMOGLOBIN A1C (01/12/2017 7:34 AM) Component Value Ref Range Hemoglobin A1C 5.5 4.0 - 6.0 % Comment: The ADA recommends that most patients with type 1 and type 2 diabetes maintain an A1c level <7%. Specimen Performing Laboratory [facility] [address] [place] [address] * CT BRAIN PERF (01/12/2017 7:25 AM) [...] stenosis. There is origin of the right AUTOMATIC PRESSER. The anterior, middle, and posterior cerebral arteries [...] stenosis. There is origin of the right AUTOMATIC PRESSER. The anterior, middle, and posterior cerebral arteries [...] stenosis. There is origin of the right AUTOMATIC PRESSER. The anterior, middle, and posterior cerebral arteries [...] stenosis. There is origin of the right AUTOMATIC PRESSER. The anterior, middle, and posterior cerebral arteries [...] stenosis. There is origin of the right AUTOMATIC PRESSER. The anterior, middle, and posterior cerebral arteries [...] stenosis. There is origin of the right AUTOMATIC PRESSER. The anterior, middle, and posterior cerebral arteries [...]
--- OUTSIDE RECORDS SUMMARY | 2017-02-15 14:55 | XMS REPORT | Encounter Summary ---
Author Author [facility] Organization [facility] Address Unknown Phone Unavailable Care Team Providers Care Float Builder Name Role Phone PCP Unavailable Encounter Details Date Type Department Care Team Description 01/12/2017 Hospital [facility] Encounter Hospital Radiology [address] [place], [place] [id number] Social History Tobacco Use Types Packs/Day Years [...] Chest Pain. Max of 3 of pilot station artery of tablets, call 911. pilot station heart with stable angina pectoris (HCC), Essential [...]
--- OUTSIDE RECORDS SUMMARY | 2017-02-15 14:55 | XMS REPORT | Encounter Summary ---
Author Author [facility] Organization [facility] Address Unknown Phone Unavailable Care Team Providers Care Mobile Home Technician Name Role Phone PCP Unavailable Encounter Details Date Type Department Care Team Description 01/12/2017 [facility] [address] [facility] [place] [address] Social History Tobacco Use Types [...]
--- OUTSIDE RECORDS SUMMARY | 2017-02-15 14:55 | XMS REPORT | Encounter Summary ---
Author Author [facility] Organization [facility] Address Unknown Phone Unavailable Care Team Providers Care Wild Oyster Harvester Name Role Phone PCP Unavailable Encounter Details Date Type Department Care Team Description 01/12/2017 Hospital Neuroscience & ENT ICU Julianna Baer, [place] - Encounter [address]. 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 He was initially presented to the [place], [place] ED with chest pain. 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 Your last blood pressure was BP: 164/84, [...] cause. Return Appointment For Neurology scheduling contact [phone] For Neurosurgery appointments call [phone] Questions About Your Stay STANDARD For questions or concerns regarding your hospital stay: -DURING BUSINESS HOURS (8:00 AM - 4:30 PM): Call [phone] and ask to be transferred to your discharge attending physician. -AFTER BUSINESS HOURS (4:30 PM - 8:00 AM, on weekends, or holidays): Call [phone] and ask the floating operator to page the on-call doctor for the discharge attending physician. Discharging attending physician: GIRISH TELLEZ [[id number]] Low Fat / Low Cholesterol Diet Your goal is to limit the amount of saturated and trans fats in your diet. Keep track of how much cholesterol you eat and limit the total amount to 200mg ( milligrams) a day. If you have questions about your diet after you go home, you can call a dietitian at [phone]. 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 Max of 3 of manzanita artery of tablets, call 911. 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 He was initially presented to the [place], [place] ED with chest pain. He had [...] 5.5 - ECHO unremarkable. Plan: - Resumed LICENSED MIDWIFE ASA and Plavix - Started on Simvastatin [...] Counseled to quit drugs - Cleared by PT/OT/CRYSTAL FLAT GRINDER/Rehab - s/p video swallow, now cleared by speech. Bradycaria - Cardiology consulted and following for bradycardia, . > LICENSED MIDWIFE BB held per cardiology HTN > restarted [...] his R side. He reports eating a Elast[employer] breakfast sandwich this morning without difficulty. He [...] for: PHART, PCO2A, PO2ART, HCO3A, BASEEXA, BASEDEFA, [id number] Lab Results Component Value Date HGB 12.1 [...] 0.9 01/12/2017 No results found for: TSH, CSNSM9O, CORTRAN Lab Results Component Value Date CHOL 231 (H) 01/12/2017 TRIG 216 (H) 01/12/2017 HDL 35 (L) 01/12/2017 LDL 152 (H) 01/12/2017 VLDL 43 01/12/2017 No results found for: VANRAN, VANPK, VANTR No results found for: CYCLOSPOR, TACROLIMUS, FREEPHENY Point of Care Testing: (Last 24 hours): Glucose: (!) 106 Radiology and Other Diagnostics Review: reviewed Sen Monterroso Neurology Resident PGY 2 Pager [phone] * Aye Hall MS,CCC-CRYSTAL FLAT GRINDER - 01/14/2017 11:45 AM CDT SPEECH-LANGUAGE PATHOLOGY NO TREATMENT NOTE Chart reviewed and made contact with RN. Pt tolerating diet and PO meds well with no overt s/s aspiration. Speech, swallow, cognition appear to have returned to baseline. Do not anticipate ongoing CRYSTAL FLAT GRINDER needs. Therapist: Aye Hall MS,CCC-CRYSTAL FLAT GRINDER [phone] Date: 01/14/2017 * Albania Díaz MD - 01/13/2017 2:51 PM CDT Formatting of this note may be different from the original. 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 No evidence of recent IA. -- Sinus rhythm today. Normal AV conduction. [...] page with questions. After 5PM please call meat grading machine operator fluorescent solution mixer. Tuesday - Tuesday 8AM-5PM please call Cardiology consult pager. Pt was seen and discussed with Dr. Charlie MD. Albania Díaz MD PGY-1 Internal Medicine Pager [phone] __ Subjective: Kaz Restrepo is a 56 [...] carvedilol. We may be seeing resolution of BIG DATA ANALYTICS LEAD disorder driving increased vagal tone. Also possible [...] No need to treat with beta receptor atn. Mr. Restrepo has no history of recent IA, LV dysfunction, or heart failure. Lipid profile [...] if we may assist. Catrachito Guerra M.D. 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 male with h/o HTN, HLD, Substance abuse, tobacco use , CAD s/p stents presented with right sided weakness, right facial droop and apahsia. He was initially presented to the [place], [place] ED with chest pain. He had [...] 5.5 - ECHO unremarkable. Plan: - Resumed LICENSED MIDWIFE ASA and Plavix - Started on Simvastatin 40 in ICU. - Continue PT/OT/CRYSTAL FLAT GRINDER/Rehab - s/p video swallow - on mechanical [...] for: PHART, PCO2A, PO2ART, HCO3A, BASEEXA, BASEDEFA, [id number] Lab Results Component Value Date HGB 12.4 [...] 0.9 01/12/2017 No results found for: TSH, TTXLF2X, CORTRAN Lab Results Component Value Date CHOL 231 (H) 01/12/2017 TRIG 216 (H) 01/12/2017 HDL 35 (L) 01/12/2017 LDL 152 (H) 01/12/2017 VLDL 43 01/12/2017 No results found for: VANRAN, SHERRYPK, VANTR No results found for: CYCLOSPOR, TACROLIMUS, FREEPHENY Point of Care Testing: (Last 24 hours): Glucose: 90 Radiology and Other Diagnostics Review: reviewed Nataliya Barajas MD, MPH Neurology Resident PGY 4 Pager [phone] * Yair Pisano MD - 01/13/2017 11:27 [...] angina (HCC) 08/13/2016 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 Patient examined: yes Objective: I have [...] optimize venous drainage Maintain normothermia, avoid hypoxemia, Bertram appropriate osmotherapy ( i.e mannitol vs Hypertonic [...] CAD s/p stenting -asa and clopidogrel, restart LICENSED MIDWIFE Imdur and losartan; 5) Chest Pain - [...] at risk for aspiration. Social work and watch caser for discharge planning and placement. Family Meeting and update: yes. Patient is able to make his or her decisions, family updated during rounds. Goals of therapy: Addressed, Patient is a full code Nurses concerns addressed. Disposition/Family: Transfer to neurology service X Yair G. Norris, MD [employer], Department of Neurology and Neurosurgery Pager: [phone] Date: 01/13/2017 X * Mai Pedersen, OT - 01/13/2017 11:13 AM CDT Formatting of this note may be different from the original. 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 Taken by herb to [facility] ED. BP slightly elevated on arrival. Treated with sublingual and topical NTG. UDS + amphetamine. Developed right facial droop, aphasia or dysarthria, flaccid right hemiplegia, and left-sided weakness. Presumed to have acute stroke. CT head w/o contrast negative for hemorrhage. Treated with tPA and transferred to Stroke Center at [facility]. Neurologically improved when compared with description [...] Patient Response: Verbalized Understanding Therapist: Aye Hall MS,CCC-CRYSTAL FLAT GRINDER [phone] Date: 01/13/2017 * Zully Castelan APRN-OVEN TENDER - 01/13/2017 6:29 AM CDT Formatting of this note may be different from the original. 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) 08/09/2016 07/29/16: heart cath (Via [place], [place]) - total occlusion of the right [...] Plan: - LDL 152, goal < 70- LICENSED MIDWIFE crestor increased to 20mg today - A1C 5.5 - ASA 81 and Plavix 75mg daily- resume today - PT/OT/CRYSTAL FLAT GRINDER/Rehab consulted Cardiac: hx of HTN, CAD, HLD, chest pain, bradycardia Echo 01/12: EF 65%, mild LVH, no shunt/thrombus CTA chest 01/12: negative for PE - cards consulted, appreciate recs - continue holding LICENSED MIDWIFE coreg 12.5mg QD - will restart imdur 60mg daily today, consider restarting losartan 50mg daily if needed for BP control - SBP goal: <160 - MAP goal > 65 - crestor daily Respiratory: H/o tobacco abuse - smoking cessation - Stable on room air - Spo2 goal >95% GI: H/O GERD, Dysphagia - Feeding: regular diet - CRYSTAL FLAT GRINDER following- video swallow negative for aspiration, diet [...] PPI B) Lines: PIVs C) Urinary Catheter: Smtih D) Antibiotic Usage: None E) VTE: SCDs, [...] radiologic and diagnostic procedures reviewed. Zully Castelan, MEDICAL PATHOLOGIST-OVEN TENDER Date: 01/13/[phone] I spent 45 minutes managing the care [...] Resource RN during scan. * Aye Hall, MS,CCC-CRYSTAL FLAT GRINDER - 01/12/2017 11:11 AM CDT SPEECH-LANGUAGE PATHOLOGY [...] risk of aspirating bacteria in oral secretions CRYSTAL FLAT GRINDER will follow for dysphagia and dysarthria management. [...] free from respiratory status changes. Therapist:Aye Hall MS,CCC-CRYSTAL FLAT GRINDER [phone] Date:01/12/2017 * Marie Monroe, RT - [...] Date: 01/12/2017 [place] AC=Airway clearance AM=Aerosolized medication BA=[place] aerosol DB&C=Deep breathe & cough FEV1=Forced expiratory volume in first second) IC=Inspiratory capacity LE=Lung expansion MDI=Metered dose inhaler Neb=Nebulizer O2=Oxygen Oxim=Oximetry PEFR=Peak expiratory flow rate PARALEGAL INSTRUCTOR=Rapid Response Team in this encounter Plan of [...] Performing Laboratory [facility] [address] [place] [address] * BASIC METABOLIC PANEL (01/14/2017 4:40 AM) [...] Performing Laboratory [facility] [address] [place] [address] * SWALLOW MOTION SERIES (01/13/2017 8:48 AM) [...] Specimen Performing Laboratory [facility] [address] [place] [address] * BASIC METABOLIC PANEL (01/13/2017 3:50 AM) [...] Specimen Performing Laboratory [facility] [address] [place] [address] * IONIZED CALCIUM (01/13/2017 3:50 AM) Component Value Ref Range Ionized Calcium 1.09 1.0 - 1.3 MMOL/L Specimen Performing Laboratory [facility] [address] [place] [address] * PHOSPHORUS (01/13/2017 3:50 AM) Component Value Ref Range Phosphorus 3.2 2.0 - 4.0 MG/DL Specimen Performing Laboratory [facility] [address] [place] [address] * MAGNESIUM (01/13/2017 3:50 AM) Component Value Ref Range Magnesium 1.8 1.6 - 2.6 mg/dL Specimen Performing Laboratory [facility] [address] [place] [address] * CTA CHEST WO/W CONTRAST+POST IMPRESSION (01/12/2017 [...] (PCP) 25 NG/ML Specimen Performing Laboratory Urine [facility] [address] [place] [address] * OPIATES-URINE RANDOM (01/12/2017 2:17 PM) Component Value Ref Range Opiates-Urine NEG NEG-NEG Comment: RESULTS WERE OBTAINED BY IMMUNOASSAY AND ARE PRESUMPTIVE ONLY. POSITIVE INDICATES THE PRESENCE OF SUBSTANCE WITH CHARACTERISTICS SIMILAR TO DRUG-DRUG CLASS OR METABOLITE IN CONC. EQUAL TO OR EXCEEDING VALUES LISTED. OPIATES 200 0 NG/ML Specimen Performing Laboratory [facility] [address] [place] [address] * COCAINE-URINE RANDOM (01/12/2017 2:17 PM) Component Value Ref Range Cocaine-Urine NEG NEG-NEG Comment: RESULTS WERE OBTAINED BY IMMUNOASSAY AND ARE PRESUMPTIVE ONLY. POSITIVE INDICATES THE PRESENCE OF SUBSTANCE WITH CHARACTERISTICS SIMILAR TO DRUG-DRUG CLASS OR METABOLITE IN CONC. EQUAL TO OR EXCEEDING VALUES LISTED. COCAINE 300 NG/ML Specimen Performing Laboratory Urine [facility] [address] [place] [address] * CANNABINOIDS-URINE RANDOM (01/12/2017 2:17 PM) Component Value Ref Range THC NEG NEG-NEG Comment: RESULTS WERE OBTAINED BY IMMUNOASSAY AND ARE PRESUMPTIVE ONLY. POSITIVE INDICATES THE PRESENCE OF SUBSTANCE WITH CHARACTERISTICS SIMILAR TO DRUG-DRUG CLASS OR METABOLITE IN CONC. EQUAL TO OR EXCEEDING VALUES LISTED. CANNABINOIDS 50 NG/ML Specimen Performing Laboratory [facility] [address] [place] [address] * BENZODIAZEPINES-URINE RANDOM (01/12/2017 2:17 PM) Component Value Ref Range Benzodiazepines NEG NEG-NEG Comment: RESULTS WERE OBTAINED BY IMMUNOASSAY AND ARE PRESUMPTIVE ONLY. POSITIVE INDICATES THE PRESENCE OF SUBSTANCE WITH CHARACTERISTICS SIMILAR TO DRUG-DRUG CLASS OR METABOLITE IN CONC. EQUAL TO OR EXCEEDING VALUES LISTED. BENZODIAZEPINES 200 NG/ML Specimen Performing Laboratory [facility] [address] [place] [address] * BARBITURATES-URINE RANDOM (01/12/2017 2:17 PM) Component Value Ref Range Barbiturates,Urine NEG NEG-NEG Comment: RESULTS WERE OBTAINED BY IMMUNOASSAY AND ARE PRESUMPTIVE ONLY. POSITIVE INDICATES THE PRESENCE OF SUBSTANCE WITH CHARACTERISTICS SIMILAR TO DRUG-DRUG CLASS OR METABOLITE IN CONC. EQUAL TO OR EXCEEDING VALUES LISTED. BARBITURATES 200 NG/ML Specimen Performing Laboratory [facility] [address] [place] [address] * AMPHETAMINES-URINE RANDOM (01/12/2017 2:17 PM) Component Value Ref Range Amphetamines NEG NEG-NEG Comment: RESULTS WERE OBTAINED BY IMMUNOASSAY AND ARE PRESUMPTIVE ONLY. POSITIVE INDICATES THE PRESENCE OF SUBSTANCE WITH CHARACTERISTICS SIMILAR TO DRUG-DRUG CLASS OR METABOLITE IN CONC. EQUAL TO OR EXCEEDING VALUES LISTED. AMPHETAMINES 1000 NG/ML Specimen Performing Laboratory [facility] [address] [place] [address] * MRI HEAD WO/W CONTRAST (01/12/2017 1:36 [...] MG/DL Specimen Performing Laboratory MAIN LAB [address] [place] [address] * BASIC METABOLIC PANEL (01/12/2017 11:48 AM) [...] questions. Specimen Performing Laboratory MAIN [facility] [address] [place] [address] * LIPID PROFILE (01/12/2017 11:48 AM) Component [...] Specimen Performing Laboratory [facility] [address] [place] [address] * TROPONIN-I (01/12/2017 11:48 AM) Component Value Ref Range Troponin-I 0.01 0.0 - 0.05 NG/ML Specimen Performing Laboratory [facility] [address] [place] [address] * TROPONIN-I (01/12/2017 9:39 AM) Component Value Ref Range Troponin-I 0.01 0.0 - 0.05 NG/ML Specimen Performing Laboratory [facility] [address] [place] [address] * 2-D + DOPPLER ECHOCARDIOGRAM (01/12/2017 8:54 AM) Component Value Ref Range BSA 1.86 m2 Referring Provider Dexter Hernandes CV ECHO PV CELLOPHANE WORKER Floor RN LVIDD 3.3 4.2 - 5.9 [...] MMOL/L Specimen Performing Laboratory [facility] [address] [place] [address] * TROPONIN-I (01/12/2017 7:34 AM) Component Value Ref Range Troponin-I 0.01 0.0 - 0.05 NG/ML Specimen Performing Laboratory [facility] [address] [place], [place] [id number] * PHOSPHORUS (01/12/2017 7:34 AM) Component Value Ref Range Phosphorus 3.5 2.0 - 4.0 MG/DL Specimen Performing Laboratory [facility] [address] [place], [place] [id number] * MAGNESIUM (01/12/2017 7:34 AM) Component Value Ref Range Magnesium 1.8 1.6 - 2.6 mg/dL Specimen Performing Laboratory [facility] [address] [place], [place] [id number] * PROTIME INR (PT) (01/12/2017 7:34 AM) Component Value Ref Range INR 0.9 0.8 - 1.2 Specimen Performing Laboratory [facility] [address] [place], [place] [id number] * CBC AND DIFF (01/12/2017 7:34 AM) [...] Specimen Performing Laboratory [facility] [address] [place] [address] * HEMOGLOBIN A1C (01/12/2017 7:34 AM) Component Value Ref Range Hemoglobin A1C 5.5 4.0 - 6.0 % Comment: The ADA recommends that most patients with type 1 and type 2 diabetes maintain an A1c level <7%. Specimen Performing Laboratory [facility] [address] [place] [address] * CT BRAIN PERF (01/12/2017 7:25 AM) [...] stenosis. There is origin of the right NURSES EDUCATOR. The anterior, middle, and posterior cerebral arteries [...] stenosis. There is origin of the right NURSES EDUCATOR. The anterior, middle, and posterior cerebral arteries [...] stenosis. There is origin of the right NURSES EDUCATOR. The anterior, middle, and posterior cerebral arteries [...] stenosis. There is origin of the right NURSES EDUCATOR. The anterior, middle, and posterior cerebral arteries [...] stenosis. There is origin of the right NURSES EDUCATOR. The anterior, middle, and posterior cerebral arteries [...] stenosis. There is origin of the right NURSES EDUCATOR. 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
--- OUTSIDE RECORDS SUMMARY | 2017-02-15 14:55 | XMS REPORT | Encounter Summary ---
Author Author [facility] Organization [facility] Address Unknown Phone Unavailable Care Team Providers Care Gas Refrigerator Servicer Name Role Phone PCP Unavailable Encounter Details Date Type Department Care Team Description 01/12/2017 Hospital [facility] En[facility] Hospital Radiology [address] [place], [place] [id number] Social History Tobacco Use Types Packs/Day Years [...] for Chest Pain. Max of 3 of [place] artery of tablets, call 911. [place] heart with stable angina pectoris (HCC), Essential [...]
--- OUTSIDE RECORDS SUMMARY | 2017-02-15 14:56 | XMS REPORT | Encounter Summary ---
Author Author [facility] Organization [facility] Address Unknown Phone Unavailable Care Team Providers Care Street Sweeper Operator Name Role Phone PCP Unavailable Encounter Details Date Type Department Care Team Description 01/12/2017 [facility] [address] [facility] [place] [address] Social History Tobacco Use Types [...]
--- OUTSIDE RECORDS SUMMARY | 2017-02-15 14:56 | XMS REPORT | Encounter Summary ---
Author Author [facility] Organization [facility] Address Unknown Phone Unavailable Care Team Providers Care Environmental Services Director Name Role Phone PCP Unavailable Encounter Details Date Type Department Care Team Description 01/12/2017 Procedure [facility] [address] [facility] [place] [address] Social History Tobacco Use Types [...]
--- OUTSIDE RECORDS SUMMARY | 2017-02-15 14:56 | XMS REPORT | Encounter Summary ---
Author Author [facility] Organization [facility] Address Unknown Phone Unavailable Care Team Providers Care Reconciliation Analyst Name Role Phone PCP Unavailable Encounter Details Date Type Department Care Team Description 01/12/2017 Hospital [facility] Encounter Hospital Radiology [address] [place], [place] [id number] Social History Tobacco Use Types Packs/Day Years [...] for Chest Pain. Max of 3 of [place] artery of tablets, call 911. [place] heart with stable angina pectoris (HCC), Essential [...]
--- OUTSIDE RECORDS SUMMARY | 2017-02-15 14:56 | XMS REPORT | Encounter Summary ---
Author Author [facility] Organization [facility] Address Unknown Phone Unavailable Care Team Providers Care Tax Credit Leasing Consultant Name Role Phone PCP Unavailable Reason for Visit * Reason Comments Dizziness Encounter Details Date Type Department Care Team Description 11/16/2016 Telephone [facility] Cardiology Abigail Marie RN Dizziness [address] [facility] [address] [place], [place] [id number] Social History Tobacco Use Types Packs/Day Years [...]
--- OUTSIDE RECORDS SUMMARY | 2017-02-15 14:56 | XMS REPORT | Encounter Summary ---
Author Author [facility] Organization [facility] Address Unknown Phone Unavailable Care Team Providers Care Experimental Psychologist Name Role Phone PCP Unavailable Reason for Visit * Reason Comments Patient Questions Encounter Details Date Type Department Care Team Description 11/17/2016 Telephone [facility] Cardiology Abigail Marie, ADITYA Patient Questions [address] [facility] [address] [place] [address] Social History Tobacco Use Types Packs/Day Years [...]
--- OUTSIDE RECORDS SUMMARY | 2017-02-15 14:56 | XMS REPORT | Encounter Summary ---
Author Author [facility] Organization [facility] Address Unknown Phone Unavailable Care Team Providers Care Marketing Reps Sports And Entertainment Name Role Phone PCP Unavailable Encounter Details Date Type Department Care Team Description 01/12/2017 Procedure [facility] ICU [address] [facility] [place] [address] Social History Tobacco Use Types [...]
--- OUTSIDE RECORDS SUMMARY | 2017-02-15 14:56 | XMS REPORT | Encounter Summary ---
Author Author [facility] Organization [facility] Address Unknown Phone Unavailable Care Team Providers Care Chimney Builder Brick Name Role Phone PCP Unavailable Encounter Details Date Type Department Care Team Description 01/12/2017 Hospital [facility] Encounter Hospital Radiology [address] [place], [place] [id number] Social History Tobacco Use Types Packs/Day Years [...] for Chest Pain. Max of 3 of [place] artery of tablets, call 911. [place] heart with stable angina pectoris (HCC), Essential [...]
--- OUTSIDE RECORDS SUMMARY | 2017-02-15 14:56 | XMS REPORT | Encounter Summary ---
Author Author [facility] Organization [facility] Address Unknown Phone Unavailable Care Team Providers Care Ob/Gyn Nurse Name Role Phone PCP Unavailable Encounter Details Date Type Department Care Team Description 01/12/2017 Procedure Pass Neuroscience & ENT ICU [address] [place] [address] Social History Tobacco Use Types [...]
[2017-02-15 16:47] LABS: BILIRUBIN,URINE NEGATIVE (NEGATIVE); KETONES,URINE NEGATIVE (NEGATIVE); LEUKOCYTE ESTERASE ,URINE 3+ (NEGATIVE); NITRITE,URINE NEGATIVE (NEGATIVE); PH,URINE 6 (5-9); PROTEIN,URINE 2+ (NEGATIVE); UROBILINOGEN,URINE NORMAL (NORMAL)
[2017-02-15 17:01] LABS: WBC,URINE >100 /HPF
--- NOTE | 2017-02-15 17:25 | ED EENT ---
History of Present Illness General Chief Complaint: Ear Problems Stated Complaint: ON BLOOD THINER/ EAR BLEEDING Nursing Triage Note: PT STATES HAVING HEADACHES LATELY, HX OF HYPERTENSION, CC OF SPONTANIOUS BLEEDING FROM LT EAR. Source: patient Exam Limitations: no limitations History of Present Illness Time seen by provider: 16:00 Initial Comments This 51 febrile gentleman presents to the emergency room with complaints of left ear bleeding that appears to be coming from the canal. He takes aspirin and Plavix due to coronary artery disease. He denies any trauma or insertion of any foreign bodies into the ear. There is a gradual oozing of blood in the exam room. Patient also complains of dysuria since his last admission when he had a Smith catheter placed. No fever. Allergies and Home Medications Allergies Coded Allergies: penicillin G (Verified Allergy, Severe, SWELLING, 12/23/11) Home Medications Amlodipine Besylate 10 Mg Tablet, 10 MG PO DAILY, (Reported) Aspirin 81 Mg Tablet.dr, 81 MG PO DAILY, (Reported) Atorvastatin Calcium 10 Mg Tablet, 10 MG PO HS, #30 Ref 4 Prescribed by: ANDREA LAO on 02/03/17 0959 Bupropion HCl 150 Mg Tablet.er, 150 MG PO BID, (Reported) Carvedilol 3.125 Mg Tablet, 3.125 MG PO BID, #60 Ref 4 Prescribed by: ANDREA LAO on 02/03/17 0959 Ciprofloxacin HCl 5 Ml Drops, 4 DROPS OT TID, #1 Ref 1 Prescribed by: BILL HUERTA on 02/15/17 1728 Ciprofloxacin HCl 500 Mg Tablet, 500 MG PO BID, #20 Prescribed by: BILL HUERTA on 02/15/17 1728 Clonidine HCl 0.1 Mg Tablet, 0.1 MG PO TID, #90 Ref 4 Prescribed by: ANDREA LAO on 02/03/17 0959 Clopidogrel Bisulfate 75 Mg Tablet, 75 MG PO HS, (Reported) Isosorbide Mononitrate 60 Mg Tab, 60 MG PO DAILY, (Reported) Losartan Potassium 50 Mg Tablet, 100 MG PO DAILY, (Reported) Nitroglycerin 0.4 Mg Tab.subl, 0.4 MG SL UD PRN for CHEST PAIN, (Reported) PLACE 1 TAB UNDER TONGUE NEEDED FOR CHEST PAIN; IF PAIN REMAINS AFTER 5 MINUTES, CALL 911 [place]-3 Fatty Acids/Fish Oil 1 Each Capsule, 1,000 MG PO BID, (Reported) Sertraline HCl 50 Mg Tablet, 50 MG PO DAILY, (Reported) Trazodone HCl 100 Mg Tablet, 100 MG PO HS, (Reported) Review of Systems Constitutional: no symptoms reported Eyes: No Symptoms Reported Ears: See HPI Nose: no symptoms reported Mouth: no symptoms reported Throat: no symptoms reported Respiratory: no symptoms reported Cardiovascular: no symptoms reported Musculoskeletal: no symptoms reported Skin: no symptoms reported Neurological: No Symptoms Reported Hematologic/Lymphatic: No Symptoms Reported Immunological/Allergic: no symptoms reported Other Dysuria Past Bxiwnkf-Whabcz-Wwxegp Hx Patient Social History Alcohol Use: Rarely Uses Number of Drinks Today: AA Alcohol Beverage of Choice: Beer Recreational Drug Use: No (HX OF IV METH 2 MONTHS CLEAN) Smoking Status: Former Smoker Type Used: Cigarettes Former Smoker, Quit: Jan 25, 2017 2nd Hand Smoke Exposure: Yes Recent Foreign Travel: No Contact w/Someone Who Travel: No Recent Infectious Disease Expo: No Recent Hopitalizations: Yes (01/2017 FOR TIA/CHEST PAIN) Immunizations Up To Date Tetanus Booster (TDap): Less than 5yrs PED Vaccines UTD: No Date of Influenza Vaccine: Dec 28, 2014 Seasonal Allergies Seasonal Allergies: No Surgeries History of Surgeries: Yes (hernia) Surgeries: Abdominal, Coronary Stent, Orthopedic Respiratory History of Respiratory Disorde: No Currently Using CPAP: No Currently Using BIPAP: No Cardiovascular History of Cardiac Disorders: Yes (CARDIAC STENTS) Cardiac Disorders: Coronary Artery Disease, Deep Vein Thrombosis, Heart Attack , High Cholesterol, Hypertension Neurological History of Neurological Disord: Yes Neurological Disorders: Stroke, TIA Reproductive System Hx Reproductive Disorders: No Sexually Transmitted Disease: No Genitourinary History of Genitourinary Disor: Yes (recurrent urinary tract infections) Gastrointestinal History of Gastrointestinal Di: Yes Gastrointestinal Disorders: Gastroesophageal Reflux, Hiatal Hernia, Ulcer Musculoskeletal History of Musculoskeletal Dis: No Endocrine History of Endocrine Disorders: No HEENT History of HEENT Disorders: No Loss of Vision: Denies Cancer History of Cancer: No Psychosocial History of Psychiatric Problem: Yes Behavioral Health Disorders: Depression Integumentary History of Skin or Integumenta: No Blood Transfusions History of Blood Disorders: No Adverse Reaction to a Blood Tr: No Family Medical History Significant Family History: Heart Disease, Hypertension Family Medial History: Arthritis 19 MOTHER HEALTHCARE PROF G8 SISTER FH: COPD (chronic obstructive pulmonary disease) Hypercholesterolemia 19 MOTHER Hypertension 19 MOTHER Physical Exam Vital Signs Vital Sign - Last 12Hours 02/15/17 15:17 Temp 98.3 Pulse 68 B/P (MAP) 184/90 Pulse Ox 98 O2 Delivery Room Air General Appearance: WD/WN, no apparent distress Eyes: bilateral eye normal inspection, bilateral eye PERRL, bilateral eye EOMI Ears: right ear canal normal, left ear bleeding, left ear other (blood pooling in the floor of the canal. Tympanic membrane appears intact. 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, no motor/sensory deficits, alert, normal mood/affect, oriented x 3 Skin: normal color, warm/dry Progress/Results/Core Measures Results/Orders Lab Results Laboratory Tests Test 02/15/17 16:35 Range/Units Urine Color YELLOW Urine Clarity SLIGHTLY CLOUDY Urine pH 6 5-9 Urine Specific [place] 1.020 1.016-1.022 Urine Protein 2+ H NEGATIVE Urine Glucose (UA) NEGATIVE NEGATIVE Urine Ketones NEGATIVE NEGATIVE Urine Nitrite NEGATIVE NEGATIVE Urine Bilirubin NEGATIVE NEGATIVE Urine Urobilinogen NORMAL NORMAL MG/DL Urine Leukocyte Esterase 3+ H NEGATIVE Urine RBC (Auto) 3+ H NEGATIVE Urine RBC NONE /HPF Urine WBC >100 H /HPF Urine Crystals NONE /LPF Urine Bacteria TRACE /HPF Urine Casts NONE /LPF Urine Mucus NEGATIVE /LPF Urine Culture Indicated YES My Orders Orders - BILL APONTE MD Ua Culture If Indicated (02/15/17 16:15) Urine Culture (02/15/17 16:35) Vital Signs/I&O Vital Sign - Last 12Hours 02/15/17 15:17 Temp 98.3 Pulse 68 B/P (MAP) 184/90 Pulse Ox 98 O2 Delivery Room Air Blood Pressure Mean: 121 Progress Note : Progress Note UA demonstrated suggestion of urinary tract infection. Patient was prescribed Cipro based on his prior urine cultures. The ear issue was discussed with Abdifatah Hanks's office. An appointment was arranged for tomorrow at 1130. She recommended using Ciloxan ear drops to help keep the blood from occluding the ear canal and to prevent infection. After phone consultation with Dr. Lao , patient was advised to stop the Plavix until 24 hours after bleeding stops. Patient is 6 months out from his last coronary stent. Departure Impression Impression: Primary Impression: Urinary tract infection Qualified Codes: N39.0 - Urinary tract infection, site not specified Additional Impression: Bleeding from left ear Disposition: 01 HOME, SELF-CARE Condition: Improved Departure-Patient Inst. Decision time for Depature: 17:15 Referrals: KATIE HANKS MD, RICHARD A DO (PCP/Family) Primary Care Physician Patient Instructions: Urinary Tract Infections in Adults Add. Discharge Instructions: Follow-up with Dr. Hanks's office at 11:15 tomorrow for repeat examination of your ear. Discontinue Plavix (clopidogrel) until bleeding from the ear has stopped for 24 hours. Please continue aspirin. Use the eardrops as prescribed. Complete the antibiotics for urinary tract infection as prescribed. Have your primary care provider follow-up on the urine culture results on or Tuesday. Return to care if symptoms worsen. All discharge instructions reviewed with patient and/or family. Voiced understanding. Scripts Ciprofloxacin HCl (Cipro) 500 Mg Tablet 500 MG PO BID, #20 TAB Prov: BILL APONTE MD 02/15/17 Ciprofloxacin HCl (Ciloxan) 5 Ml Drops 4 DROPS OT TID, #1 EACH 1 Refill Prov: BILL APONTE MD 02/15/17 Copy Copies To 1: KATIE HANKS MD, JOSHUA T MD Feb 15, 2017 17:25
[2017-02-15] MEDS ORDERED: CIPR-225 PO (17:28)
[2017-02-15] MEDS ORDERED: CIPR5DRO OT (17:28)
[2017-02-15 17:34] VITALS: BP 121/74
[2017-04-22] MEDS ORDERED: CIPR500T4 PO (19:19)
[2017-04-22] MEDS ORDERED: TAMS0.4C98 PO (19:19)
== END 2017-02-15 17:42 | disposition home or self-care (01) ==
LOC: EDUNIT# 14:48 → ER 14:51
DX: H92.22 Otorrhagia, left ear (principal); N39.0 Urinary tract infection, site not specified; I25.2 Old myocardial infarction; E78.00 Pure hypercholesterolemia, unspecified; I10 Essential (primary) hypertension; K21.9 Gastro-esophageal reflux disease without esophagitis; I25.10 Atherosclerotic heart disease of native coronary artery without angina pectoris; F32.9 Major depressive disorder, single episode, unspecified; Z82.49 Family history of ischemic heart disease and other diseases of the circulatory system; Z86.73 Personal history of transient ischemic attack (TIA), and cerebral infarction without residual deficits; Z86.718 Personal history of other venous thrombosis and embolism; Z87.19 Personal history of other diseases of the digestive system; Z79.82 Long term (current) use of aspirin; Z79.02 Long term (current) use of antithrombotics/antiplatelets; Z87.891 Personal history of nicotine dependence; Z95.5 Presence of coronary angioplasty implant and graft
CPT/HCPCS: 81000; 87077; 87088; 87186; 99282

== ENCOUNTER 2017-03-05 20:12 | Emergency (ER) | payer OTHER ==
[~2017-03-05] VITALS: Ht 175.3 cm; Wt 81.6 kg
[~2017-03-05 20:12] MED LIST changes: +CIPR-225 PO; +CIPR5DRO OT
--- OUTSIDE RECORDS SUMMARY | 2017-03-05 20:19 | XMS REPORT | Continuity of Care Document ---
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 Lyft Driver Name Role Phone [employer] Unavailable Unavailable Problems Medications Allergies, Adverse Reactions, Alerts Immunizations Results Vital Signs Encounters Location Location Details Encounter Type Encounter Number Reason For Visit Attending Provider ADM Date DC Date Status Source Jane SMITH 05/16/2017 Active [facility] Procedures Plan of Care Social History Assessment and Plan Family History Value Date Source Advance Directives Order Name Results Value Date Source
--- OUTSIDE RECORDS SUMMARY | 2017-03-05 20:20 | XMS REPORT | Clinical Summary ---
Author Author [facility] Organization [facility] Address Unknown Phone Unavailable Care Team Providers Care Security Project Manager Name Role Phone PCP Unavailable Source Comments Some departments are not documenting in the electronic medical record. If you do not see the information that you expected, contact Release of Information in the Health Information Management department at [phone] for further assistance in locating additional records.[facility] Allergies Active Allergy Reactions Severity Noted [...] for Chest Pain. Max of 3 of [place] artery of tablets, call 911. [place] heart with stable angina pectoris (HCC), Essential [...] GERI (acute kidney injury) ([facility]) 01/13/2017 Unstable angina ([facility]) 08/13/2016 Coronary artery disease of [place] artery of [place] heart with stable angina 08/09/2016 pectoris ([facility]) Overview: 07/29/16: heart cath ([address] [place], [place]) - total occlusion of the right [...] Date Type Specialty Care Team Description 01/12/2017 [facility] Neurosurgery Julianna Baer, [place] - Encounter MD 01/14/2017 Yair Pisano MD Wang, Yunxia, MD 01/12/2017 Hospital Radiology Encounter 01/12/2017 Hospital Radiology Encounter 01/12/2017 Hospital Radiology Encounter 01/12/2017 Procedure Pass Neurosurgery 01/12/2017 Hospital Radiology Encounter 01/12/2017 Procedure Pass Neurosurgery 01/12/2017 Procedure Pass Neurosurgery 01/12/2017 Procedure Pass Neurosurgery 01/12/2017 Procedure Pass Neurosurgery from Last 3 Months Family History Medical [...] 1978 COLORECTAL CANCER 2011 SCREENING INFLUENZA VACCINE 03/20/2017 Procedures Procedure Name Priority Date/Time Associated Diagnosis [...] Performing Laboratory [facility] [address] [place] [address] * BASIC METABOLIC PANEL (01/14/2017 4:40 AM) [...] Performing Laboratory [facility] [address] [place] [address] * SWALLOW MOTION SERIES (01/13/2017 8:48 AM) [...] M.D. on 01/13/2017 5:02 PM. Dictated by hCeco Celestin M.D. on 01/13/2017 9:47 AM. Narrative [...] MG/DL Specimen Performing [facility] [address] [place] [address] * MAGNESIUM (01/13/2017 3:50 AM) Only the most recent of 2 results within the time period is included. Component Value Ref Range Magnesium 1.8 1.6 - 2.6 mg/dL Specimen Performing Laboratory [facility] [address] [place] [address] * IONIZED CALCIUM (01/13/2017 3:50 AM) Only the most recent of 2 results within the time period is included. Component Value Ref Range Ionized Calcium 1.09 1.0 - 1.3 MMOL/L Specimen Performing Laboratory [facility] [address] [place] [address] * CTA CHEST WO/W CONTRAST+POST IMPRESSION (01/12/2017 [...] (PCP) 25 NG/ML Specimen Performing Laboratory [facility] [address] [place] [address] * OPIATES-URINE RANDOM (01/12/2017 2:17 PM) Component Value Ref Range Opiates-Urine NEG NEG-NEG Comment: RESULTS WERE OBTAINED BY IMMUNOASSAY AND ARE PRESUMPTIVE ONLY. POSITIVE INDICATES THE PRESENCE OF SUBSTANCE WITH CHARACTERISTICS SIMILAR TO DRUG-DRUG CLASS OR METABOLITE IN CONC. EQUAL TO OR EXCEEDING VALUES LISTED. OPIATES 200 0 NG/ML Specimen Performing Laboratory Urine [facility] [address] [place] [id number] * COCAINE-URINE RANDOM (01/12/2017 2:17 PM) Component Value Ref Range Cocaine-Urine NEG NEG-NEG Comment: RESULTS WERE OBTAINED BY IMMUNOASSAY AND ARE PRESUMPTIVE ONLY. POSITIVE INDICATES THE PRESENCE OF SUBSTANCE WITH CHARACTERISTICS SIMILAR TO DRUG-DRUG CLASS OR METABOLITE IN CONC. EQUAL TO OR EXCEEDING VALUES LISTED. COCAINE 300 NG/ML Specimen Performing Laboratory Urine [facility] [address] [place] [address] * CANNABINOIDS-URINE RANDOM (01/12/2017 2:17 PM) Component Value Ref Range THC NEG NEG-NEG Comment: RESULTS WERE OBTAINED BY IMMUNOASSAY AND ARE PRESUMPTIVE ONLY. POSITIVE INDICATES THE PRESENCE OF SUBSTANCE WITH CHARACTERISTICS SIMILAR TO DRUG-DRUG CLASS OR METABOLITE IN CONC. EQUAL TO OR EXCEEDING VALUES LISTED. CANNABINOIDS 50 NG/ML Specimen Performing Laboratory Urine [facility] [address] [place] [address] * BENZODIAZEPINES-URINE RANDOM (01/12/2017 2:17 PM) Component Value Ref Range Benzodiazepines NEG NEG-NEG Comment: RESULTS WERE OBTAINED BY IMMUNOASSAY AND ARE PRESUMPTIVE ONLY. POSITIVE INDICATES THE PRESENCE OF SUBSTANCE WITH CHARACTERISTICS SIMILAR TO DRUG-DRUG CLASS OR METABOLITE IN CONC. EQUAL TO OR EXCEEDING VALUES LISTED. BENZODIAZEPINES 200 NG/ML Specimen Performing Laboratory Urine [facility] [address] [place] [address] * BARBITURATES-URINE RANDOM (01/12/2017 2:17 PM) Component Value Ref Range Barbiturates,Urine NEG NEG-NEG Comment: RESULTS WERE OBTAINED BY IMMUNOASSAY AND ARE PRESUMPTIVE ONLY. POSITIVE INDICATES THE PRESENCE OF SUBSTANCE WITH CHARACTERISTICS SIMILAR TO DRUG-DRUG CLASS OR METABOLITE IN CONC. EQUAL TO OR EXCEEDING VALUES LISTED. BARBITURATES 200 NG/ML Specimen Performing Laboratory Urine [facility] [address] [place] [address] * AMPHETAMINES-URINE RANDOM (01/12/2017 2:17 PM) Component Value Ref Range Amphetamines NEG NEG-NEG Comment: RESULTS WERE OBTAINED BY IMMUNOASSAY AND ARE PRESUMPTIVE ONLY. POSITIVE INDICATES THE PRESENCE OF SUBSTANCE WITH CHARACTERISTICS SIMILAR TO DRUG-DRUG CLASS OR METABOLITE IN CONC. EQUAL TO OR EXCEEDING VALUES LISTED. AMPHETAMINES 1000 NG/ML Specimen Performing Laboratory [facility] [address] [place] [address] * MRI HEAD WO/W CONTRAST (01/12/2017 1:36 [...] Specimen Performing [facility] [address] [place] [address] * TROPONIN-I (01/12/2017 11:48 AM) Only the most recent of 3 results within the time period is included. Component Value Ref Range Troponin-I 0.01 0.0 - 0.05 NG/ML Specimen Performing Laboratory [facility] [address] [place] [address] * LIPID PROFILE (01/12/2017 11:48 AM) Component [...] Specimen Performing Laboratory [facility] [address] [place] [address] * 2-D + DOPPLER ECHOCARDIOGRAM (01/12/2017 8:54 AM) Component Value Ref Range BSA 1.86 m2 Referring Provider Dexter Hernandes CV ECHO PV CONCERT PROMOTER Floor RN LVIDD 3.3 4.2 - 5.9 [...] Performing Laboratory [facility] [address] [place] [address] * CBC AND DIFF (01/12/2017 7:34 AM) [...] Performing Laboratory [facility] [address] [place] [address] * HEMOGLOBIN A1C (01/12/2017 7:34 AM) Component Value Ref Range Hemoglobin A1C 5.5 4.0 - 6.0 % Comment: The ADA recommends that most patients with type 1 and type 2 diabetes maintain an A1c level <7%. Specimen Performing Laboratory [facility] [address] [place] [address] * CT BRAIN PERF (01/12/2017 7:25 AM) [...] stenosis. There is origin of the right [employer]. The anterior, middle, and posterior cerebral arteries [...] stenosis. There is origin of the right [employer]. The anterior, middle, and posterior cerebral arteries [...] M.D. on 01/12/2017 8:07 AM. Dictated by Catrahcito Hansen M.D. on 01/12/2017 7:26 AM. * [...] stenosis. There is origin of the right [employer]ER[employer]. The anterior, middle, and posterior cerebral arteries [...] stenosis. There is origin of the right [employer]ER[employer]. The anterior, middle, and posterior cerebral arteries [...] stenosis. There is origin of the right [employer]ER[employer]. The anterior, middle, and posterior cerebral arteries [...] stenosis. There is origin of the right [employer] THER[employer]. The anterior, middle, and posterior cerebral arteries [...]
--- OUTSIDE RECORDS SUMMARY | 2017-03-05 20:21 | XMS REPORT | Encounter Summary ---
Author Author [facility] Organization [facility] Address Unknown Phone Unavailable Care Team Providers Care Heel Top Lift Splitter Name Role Phone PCP Unavailable Encounter Details Date Type Department Care Team Description 01/12/2017 Hospital Neuroscience & ENT ICU Julianna Baer, [place] - Encounter [id number]. 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 He was initially presented to the [place], [place] ED with chest pain. 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 Your last blood pressure was BP: 164/84, [...] cause. Return Appointment For Neurology scheduling contact [phone] For Neurosurgery appointments call [phone] Questions About Your Stay STANDARD For questions or concerns regarding your hospital stay: -DURING BUSINESS HOURS (8:00 AM - 4:30 PM): Call [phone] and ask to be transferred to your discharge attending physician. -AFTER BUSINESS HOURS (4:30 PM - 8:00 AM, on weekends, or holidays): Call [phone] and ask the dipper operator to page the on-call doctor for the discharge attending physician. Discharging attending physician: GIRISH TELLEZ [[id number]] Low Fat / Low Cholesterol Diet Your goal is to limit the amount of saturated and trans fats in your diet. Keep track of how much cholesterol you eat and limit the total amount to 200mg ( milligrams) a day. If you have questions about your diet after you go home, you can call a dietitian at [phone]. 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 Max of 3 of [place]ct[place] artery of tablets, call 911. choctaw heart with stable angina pectoris (HCC), Essential [...] Weakness Active Problems: Coronary artery disease of [place]ct[place] artery of choctaw heart with stable angina pectoris (HCC) Essential [...] apahsia. He was initially presented to the [place], [place] ED with chest pain. He had [...] 5.5 - ECHO unremarkable. Plan: - Resumed SUPERVISOR MODEL MAKING ASA and Plavix - Started on Simvastatin [...] Counseled to quit drugs - Cleared by PT/OT/SALSA DANCE INSTRUCTOR/Rehab - s/p video swallow, now cleared by speech. Bradycaria - Cardiology consulted and following for bradycardia, . > SUPERVISOR MODEL MAKING BB held per cardiology HTN > restarted [...] his R side. He reports eating a Elias Borges [employer] breakfast sandwich this morning without difficulty. He [...] for: PHART, PCO2A, PO2ART, HCO3A, BASEEXA, BASEDEFA, [id number] Lab Results Component Value Date HGB 12.1 [...] 0.9 01/12/2017 No results found for: TSH, NEQXU8O, CORTRAN Lab Results Component Value Date CHOL 231 (H) 01/12/2017 TRIG 216 (H) 01/12/2017 HDL 35 (L) 01/12/2017 LDL 152 (H) 01/12/2017 VLDL 43 01/12/2017 No results found for: VANRAN, VANPK, VANTR No results found for: CYCLOSPOR, TACROLIMUS, FREEPHENY Point of Care Testing: (Last 24 hours): Glucose: (!) 106 Radiology and Other Diagnostics Review: reviewed Sen Monterroso Neurology Resident PGY 2 Pager [phone] * Aye Hall MS,CCC-SALSA DANCE INSTRUCTOR - 01/14/2017 11:45 AM CDT SPEECH-LANGUAGE PATHOLOGY NO TREATMENT NOTE Chart reviewed and made contact with RN. Pt tolerating diet and PO meds well with no overt s/s aspiration. Speech, swallow, cognition appear to have returned to baseline. Do not anticipate ongoing SALSA DANCE INSTRUCTOR needs. Therapist: Aye Hall MS,CCC-SALSA DANCE INSTRUCTOR [phone] Date: 01/14/2017 * Albania Díaz MD - 01/13/2017 2:51 PM CDT Formatting of this note may be different from the original. 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 No evidence of recent NV. -- Sinus rhythm today. Normal AV conduction. [...] page with questions. After 5PM please call rehab office coordinator production assistant. Tuesday - Tuesday 8AM-5PM please call Cardiology consult pager. Pt was seen and discussed with Dr. Charlie MD. Albania Díaz MD PGY-1 Internal Medicine Pager [phone] __ Subjective: Kaz Restrepo is a 56 [...] carvedilol. We may be seeing resolution of QUALITATIVE FIELD COORDINATOR disorder driving increased vagal tone. Also possible [...] Mr. Restrepo has no history of recent NV, LV dysfunction, or heart failure. Lipid profile [...] if we may assist. Catrachito Guerra M.D. 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 male with h/o HTN, HLD, Substance abuse, tobacco use , CAD s/p stents presented with right sided weakness, right facial droop and apahsia. He was initially presented to the [place], [place] ED with chest pain. He had [...] 5.5 - ECHO unremarkable. Plan: - Resumed SUPERVISOR MODEL MAKING ASA and Plavix - Started on Simvastatin 40 in ICU. - Continue PT/OT/SALSA DANCE INSTRUCTOR/Rehab - s/p video swallow - on mechanical [...] for: PHART, PCO2A, PO2ART, HCO3A, BASEEXA, BASEDEFA, [id number] Lab Results Component Value Date HGB 12.4 [...] 0.9 01/12/2017 No results found for: TSH, DSWMS3C, CORTRAN Lab Results Component Value Date CHOL 231 (H) 01/12/2017 TRIG 216 (H) 01/12/2017 HDL 35 (L) 01/12/2017 LDL 152 (H) 01/12/2017 VLDL 43 01/12/2017 No results found for: VANRAN, SHERRYPK, VANTR No results found for: CYCLOSPOR, TACROLIMUS, FREEPHENY Point of Care Testing: (Last 24 hours): Glucose: 90 Radiology and Other Diagnostics Review: reviewed Nataliya Barajas MD, MPH Neurology Resident PGY 4 Pager [phone] * Yair Pisano MD - 01/13/2017 11:27 [...] angina (HCC) 08/13/2016 Coronary artery disease of choct[place] artery of choctaw heart with stable angina pectoris (HCC) 08/09/2016 07/29/16: heart cath ([facility] [place], [place]) - total occlusion of the right [...] asymptomatic bradycardia, sign out obtained from shift production supervisor person ( nurse and [facility] physician). Patient examined: yes Objective: I [...] optimize venous drainage Maintain normothermia, avoid hypoxemia, [place] appropriate osmotherapy ( i.e mannitol vs Hypertonic [...] CAD s/p stenting -asa and clopidogrel, restart SUPERVISOR MODEL MAKING Imdur and losartan; 5) Chest Pain - [...] risk for aspiration. Social work and case coordinator for discharge planning and placement. Family Meeting and update: yes. Patient is able to make his or her decisions, family updated during rounds. Goals of therapy: Addressed, Patient is a full code Nurses concerns addressed. Disposition/Family: Transfer to neurology service X Yair G. Norris, MD Water Taxi Boat Mate, Department of Neurology and Neurosurgery Pager: [phone] Date: 01/13/2017 X * Mai Pedersen, OT - 01/13/2017 11:13 AM CDT Formatting of this note may be different from the original. 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 Taken by herb to [facility] ED. BP slightly elevated on arrival. Treated with sublingual and topical NTG. UDS + amphetamine. Developed right facial droop, aphasia or dysarthria, flaccid right hemiplegia, and left-sided weakness. Presumed to have acute stroke. CT head w/o contrast negative for hemorrhage. Treated with tPA and transferred to Stroke Center at [facility]. Neurologically improved when compared with [...] Patient Response: Verbalized Understanding Therapist: Aye Hall MS,CCC-SALSA DANCE INSTRUCTOR [phone] Date: 01/13/2017 * Zully Castelan APRN-ASSOCIATE PROFESSOR OF MUSICOLOGY - 01/13/2017 6:29 AM CDT Formatting of this note may be different from the original. Neuro Critical Care Progress Note Kaz Restrepo Admission Date: 01/12/2017 LOS: 1 day Full Code ASSESSMENT/PLAN Patient Active Problem List Diagnosis Date Noted Stroke (HCC) 01/12/2017 Unstable angina (HCC) 08/13/2016 Coronary artery disease of [place]ct[place] artery of choctaw heart with stable angina pectoris (HCC) 08/09/2016 07/29/16: heart cath ([place], [place]) - total occlusion of the right [...] Plan: - LDL 152, goal < 70- SUPERVISOR MODEL MAKING crestor increased to 20mg today - A1C 5.5 - ASA 81 and Plavix 75mg daily- resume today - PT/OT/SALSA DANCE INSTRUCTOR/Rehab consulted Cardiac: hx of HTN, CAD, HLD, chest pain, bradycardia Echo 01/12: EF 65%, mild LVH, no shunt/thrombus CTA chest 01/12: negative for PE - cards consulted, appreciate recs - continue holding SUPERVISOR MODEL MAKING coreg 12.5mg QD - will restart imdur 60mg daily today, consider restarting losartan 50mg daily if needed for BP control - SBP goal: <160 - MAP goal > 65 - crestor daily Respiratory: H/o tobacco abuse - smoking cessation - Stable on room air - Spo2 goal >95% GI: H/O GERD, Dysphagia - Feeding: regular diet - SALSA DANCE INSTRUCTOR following- video swallow negative for aspiration, diet [...] radiologic and diagnostic procedures reviewed. Zully Castelan, STRUCTURER-ASSOCIATE PROFESSOR OF MUSICOLOGY Date: 01/13/[phone] I spent 45 minutes managing the care [...] Resource RN during scan. * Aye Hall, MS,CCC-SALSA DANCE INSTRUCTOR - 01/12/2017 11:11 AM CDT SPEECH-LANGUAGE PATHOLOGY [...] risk of aspirating bacteria in oral secretions SALSA DANCE INSTRUCTOR will follow for dysphagia and dysarthria management. [...] free from respiratory status changes. Therapist:Aye Hall MS,CCC-SALSA DANCE INSTRUCTOR [phone] Date:01/12/2017 * Marie Monroe, RT - [...] Date: 01/12/2017 [place] AC=Airway clearance AM=Aerosolized medication BA=Walters aerosol DB&C=Deep breathe & cough FEV1=Forced expiratory volume in first second) IC=Inspiratory capacity LE=Lung expansion MDI=Metered dose inhaler Neb=Nebulizer O2=Oxygen Oxim=Oximetry PEFR=Peak expiratory flow rate AIR DISPATCHER=Rapid Response Team in this encounter Plan of [...] Performing Laboratory [facility] [address] [place] [address] * BASIC METABOLIC PANEL (01/14/2017 4:40 AM) [...] Performing Laboratory [facility] [address] [place] [address] * SWALLOW MOTION SERIES (01/13/2017 8:48 AM) [...] Pathology for further description. Approved by Checo eClestin M.D. on 01/13/2017 11:54 AM By my [...] Specimen Performing Laboratory [facility] [address] [place] [address] * BASIC METABOLIC PANEL (01/13/2017 3:50 AM) [...] Specimen Performing Laboratory [facility] [address] [place] [address] * IONIZED CALCIUM (01/13/2017 3:50 AM) Component Value Ref Range Ionized Calcium 1.09 1.0 - 1.3 MMOL/L Specimen Performing Laboratory [facility] [address] [place] [address] * PHOSPHORUS (01/13/2017 3:50 AM) Component Value Ref Range Phosphorus 3.2 2.0 - 4.0 MG/DL Specimen Performing Laboratory [facility] [address] [place] [address] * MAGNESIUM (01/13/2017 3:50 AM) Component Value Ref Range Magnesium 1.8 1.6 - 2.6 mg/dL Specimen Performing Laboratory [facility] [address] [place] [address] * CTA CHEST WO/W CONTRAST+POST IMPRESSION (01/12/2017 [...] (PCP) 25 NG/ML Specimen Performing Laboratory Urine [facility] [address] [place] [address] * OPIATES-URINE RANDOM (01/12/2017 2:17 PM) Component Value Ref Range Opiates-Urine NEG NEG-NEG Comment: RESULTS WERE OBTAINED BY IMMUNOASSAY AND ARE PRESUMPTIVE ONLY. POSITIVE INDICATES THE PRESENCE OF SUBSTANCE WITH CHARACTERISTICS SIMILAR TO DRUG-DRUG CLASS OR METABOLITE IN CONC. EQUAL TO OR EXCEEDING VALUES LISTED. OPIATES 200 0 NG/ML Specimen Performing Laboratory U[facility] [address] [place] [address] * COCAINE-URINE RANDOM (01/12/2017 2:17 PM) Component Value Ref Range Cocaine-Urine NEG NEG-NEG Comment: RESULTS WERE OBTAINED BY IMMUNOASSAY AND ARE PRESUMPTIVE ONLY. POSITIVE INDICATES THE PRESENCE OF SUBSTANCE WITH CHARACTERISTICS SIMILAR TO DRUG-DRUG CLASS OR METABOLITE IN CONC. EQUAL TO OR EXCEEDING VALUES LISTED. COCAINE 300 NG/ML Specimen Performing Laboratory Urine [facility] [address] [place] [address] * CANNABINOIDS-URINE RANDOM (01/12/2017 2:17 PM) Component Value Ref Range THC NEG NEG-NEG Comment: RESULTS WERE OBTAINED BY IMMUNOASSAY AND ARE PRESUMPTIVE ONLY. POSITIVE INDICATES THE PRESENCE OF SUBSTANCE WITH CHARACTERISTICS SIMILAR TO DRUG-DRUG CLASS OR METABOLITE IN CONC. EQUAL TO OR EXCEEDING VALUES LISTED. CANNABINOIDS 50 NG/ML Specimen Performing Laboratory [facility] [address] [place] [address] * BENZODIAZEPINES-URINE RANDOM (01/12/2017 2:17 PM) Component Value Ref Range Benzodiazepines NEG NEG-NEG Comment: RESULTS WERE OBTAINED BY IMMUNOASSAY AND ARE PRESUMPTIVE ONLY. POSITIVE INDICATES THE PRESENCE OF SUBSTANCE WITH CHARACTERISTICS SIMILAR TO DRUG-DRUG CLASS OR METABOLITE IN CONC. EQUAL TO OR EXCEEDING VALUES LISTED. BENZODIAZEPINES 200 NG/ML Specimen Performing Laboratory Urine [facility] [address] [place] [address] * BARBITURATES-URINE RANDOM (01/12/2017 2:17 PM) Component Value Ref Range Barbiturates,Urine NEG NEG-NEG Comment: RESULTS WERE OBTAINED BY IMMUNOASSAY AND ARE PRESUMPTIVE ONLY. POSITIVE INDICATES THE PRESENCE OF SUBSTANCE WITH CHARACTERISTICS SIMILAR TO DRUG-DRUG CLASS OR METABOLITE IN CONC. EQUAL TO OR EXCEEDING VALUES LISTED. BARBITURATES 200 NG/ML Specimen Performing Laboratory Urine [facility] [address] [place] [address] * AMPHETAMINES-URINE RANDOM (01/12/2017 2:17 PM) Component Value Ref Range Amphetamines NEG NEG-NEG Comment: RESULTS WERE OBTAINED BY IMMUNOASSAY AND ARE PRESUMPTIVE ONLY. POSITIVE INDICATES THE PRESENCE OF SUBSTANCE WITH CHARACTERISTICS SIMILAR TO DRUG-DRUG CLASS OR METABOLITE IN CONC. EQUAL TO OR EXCEEDING VALUES LISTED. AMPHETAMINES 1000 NG/ML Specimen Performing Laboratory [facility] [address] [place] [address] * MRI HEAD WO/W CONTRAST (01/12/2017 1:36 [...] MG/DL Specimen Performing Laboratory MAIN LAB [address] [place] [address] * BASIC METABOLIC PANEL (01/12/2017 11:48 AM) [...] questions. Specimen Performing Laboratory MAIN [facility] [address] [place] [address] * LIPID PROFILE (01/12/2017 11:48 AM) Component [...] Specimen Performing Laboratory [facility] [address] [place] [address] * TROPONIN-I (01/12/2017 11:48 AM) Component Value Ref Range Troponin-I 0.01 0.0 - 0.05 NG/ML Specimen Performing Laboratory [facility] [address] [place] [address] * TROPONIN-I (01/12/2017 9:39 AM) Component Value Ref Range Troponin-I 0.01 0.0 - 0.05 NG/ML Specimen Performing Laboratory [facility] [address] [place] [address] * 2-D + DOPPLER ECHOCARDIOGRAM (01/12/2017 8:54 AM) Component Value Ref Range BSA 1.86 m2 Referring Provider Dexter Hernandes CV ECHO PV LOADING MANAGER Floor RN LVIDD 3.3 4.2 - 5.9 [...] MMOL/L Specimen Performing Laboratory [facility] [address] [place] [address] * TROPONIN-I (01/12/2017 7:34 AM) Component Value Ref Range Troponin-I 0.01 0.0 - 0.05 NG/ML Specimen Performing Laboratory [facility] [address] [place], [place] [id number] * PHOSPHORUS (01/12/2017 7:34 AM) Component Value Ref Range Phosphorus 3.5 2.0 - 4.0 MG/DL Specimen Performing Laboratory [facility] [address] [place], [place] [id number] * MAGNESIUM (01/12/2017 7:34 AM) Component Value Ref Range Magnesium 1.8 1.6 - 2.6 mg/dL Specimen Performing Laboratory [facility] [address] [place], [place] [id number] * PROTIME INR (PT) (01/12/2017 7:34 AM) Component Value Ref Range INR 0.9 0.8 - 1.2 Specimen Performing Laboratory [facility] [address] [place], [place] [id number] * CBC AND DIFF (01/12/2017 7:34 AM) [...] Specimen Performing Laboratory [facility] [address] [place] [address] * HEMOGLOBIN A1C (01/12/2017 7:34 AM) Component Value Ref Range Hemoglobin A1C 5.5 4.0 - 6.0 % Comment: The ADA recommends that most patients with type 1 and type 2 diabetes maintain an A1c level <7%. Specimen Performing Laboratory [facility] [address] [place] [address] * CT BRAIN PERF (01/12/2017 7:25 AM) [...] stenosis. There is origin of the right CLINICAL AUDIOLOGIST. The anterior, middle, and posterior cerebral arteries [...] stenosis. There is origin of the right CLINICAL AUDIOLOGIST. The anterior, middle, and posterior cerebral arteries [...] stenosis. There is origin of the right CLINICAL AUDIOLOGIST. The anterior, middle, and posterior cerebral arteries [...] stenosis. There is origin of the right CLINICAL AUDIOLOGIST. The anterior, middle, and posterior cerebral arteries [...] stenosis. There is origin of the right CLINICAL AUDIOLOGIST. The anterior, middle, and posterior cerebral arteries [...] stenosis. There is origin of the right CLINICAL AUDIOLOGIST. 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
--- OUTSIDE RECORDS SUMMARY | 2017-03-05 20:21 | XMS REPORT | Encounter Summary ---
Author Author [facility] Organization [facility] Address Unknown Phone Unavailable Care Team Providers Care Gymnastics Instructor Name Role Phone PCP Unavailable Encounter Details Date Type Department Care Team Description 01/12/2017 [facility] [address] [facility] [place] [address] Social History Tobacco Use Types [...]
--- OUTSIDE RECORDS SUMMARY | 2017-03-05 20:21 | XMS REPORT | Encounter Summary ---
Author Author [facility] Organization [facility] Address Unknown Phone Unavailable Care Team Providers Care Automated Access Systems Technician Name Role Phone PCP Unavailable Encounter Details Date Type Department Care Team Description 01/12/2017 Hospital [facility] Encounter Hospital Radiology [address] [place], [place] [id number] Social History Tobacco Use Types Packs/Day Years [...] for Chest Pain. Max of 3 of [place] artery of tablets, call 911. [place] heart with stable angina pectoris (HCC), Essential [...]
--- OUTSIDE RECORDS SUMMARY | 2017-03-05 20:22 | XMS REPORT | Encounter Summary ---
Author Author [facility] Organization [facility] Address Unknown Phone Unavailable Care Team Providers Care Preparator Name Role Phone PCP Unavailable Encounter Details Date Type Department Care Team Description 01/12/2017 Procedure [facility] Neuroscience [facility] E[facility] ICU [address] [facility] [place] [address] Social History Tobacco Use Types [...]
--- OUTSIDE RECORDS SUMMARY | 2017-03-05 20:22 | XMS REPORT | Encounter Summary ---
Author Author [facility] Organization [facility] Address Unknown Phone Unavailable Care Team Providers Care Drawbridge Operator Name Role Phone PCP Unavailable Encounter Details Date Type Department Care Team Description 01/12/2017 Procedure [facility]science [facility] ICU [address] [facility] [place] [address] Social History Tobacco Use Types [...]
--- OUTSIDE RECORDS SUMMARY | 2017-03-05 20:22 | XMS REPORT | Encounter Summary ---
Author Author [facility] Organization [facility] Address Unknown Phone Unavailable Care Team Providers Care Tow Boat Captain Name Role Phone PCP Unavailable Encounter Details Date Type Department Care Team Description 01/12/2017 Procedure [facility] ICU [address] [facility] [place] [address] Social History Tobacco Use Types [...]
--- OUTSIDE RECORDS SUMMARY | 2017-03-05 20:22 | XMS REPORT | Encounter Summary ---
Author Author [facility] Organization [facility] Address Unknown Phone Unavailable Care Team Providers Care Night Shift Manager Name Role Phone PCP Unavailable Encounter Details Date Type Department Care Team Description 01/12/2017 Hospital [facility] Encounter Hospital Radiology [address] [place], [place] [id number] Social History Tobacco Use Types Packs/Day Years [...] for Chest Pain. Max of 3 of [place] artery of tablets, call 911. [place] heart with stable angina pectoris (HCC), Essential [...]
--- OUTSIDE RECORDS SUMMARY | 2017-03-05 20:22 | XMS REPORT | Encounter Summary ---
Author Author [facility] Organization [facility] Address Unknown Phone Unavailable Care Team Providers Care Short Haul Driver Name Role Phone PCP Unavailable Encounter Details Date Type Department Care Team Description 01/12/2017 Procedure [facility] ICU [address] [facility] [place] [address] Social History Tobacco Use Types [...]
--- OUTSIDE RECORDS SUMMARY | 2017-03-05 20:22 | XMS REPORT | Encounter Summary ---
Author Author [facility] Organization [facility] Address Unknown Phone Unavailable Care Team Providers Care Gasoline Plant Operator Name Role Phone PCP Unavailable Encounter Details Date Type Department Care Team Description 01/12/2017 Hospital [facility] Encounter Hospital Radiology [address] [place], [place] [id number] Social History Tobacco Use Types Packs/Day Years [...] for Chest Pain. Max of 3 of [place] artery of tablets, call 911. [place] heart with stable angina pectoris (HCC), Essential [...]
--- OUTSIDE RECORDS SUMMARY | 2017-03-05 20:22 | XMS REPORT | Encounter Summary ---
Author Author [facility] Organization [facility] Address Unknown Phone Unavailable Care Team Providers Care Faa Certified Powerplant Mechanic Name Role Phone PCP Unavailable Encounter Details Date Type Department Care Team Description 01/12/2017 Hospital [facility] Encounter Hospital Radiology [address] [place], [place] [id number] Social History Tobacco Use Types Packs/Day Years [...] for Chest Pain. Max of 3 of atka artery of tablets, call 911. atka heart with stable angina pectoris (HCC), Essential [...]
--- NOTE | 2017-03-05 20:28 | ED Neurological Problem ---
General Chief Complaint: Neuro-Stroke Like Symptoms Stated Complaint: HEART PROBLEMS Source: patient, family Exam Limitations: clinical condition History of Present Illness Time seen by provider: 20:23 Initial Comments Patient presents to ER by private conveyance with a chief complaint of heart pain per his family member. The patient's having total right sided weakness and aphasia. He has a history of recently being treated with strokes and has been treated with TPA and shipped to [facility]. Patient is not endorsed chest pain anybody. 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 He has recently had stents in his heart place. Last known well time was 45 minutes prior to arrival at approximately 1940. Allergies and Home Medications Allergies Coded Allergies: penicillin G (Verified Allergy, Severe, SWELLING, 12/23/11) Home Medications Amlodipine Besylate 10 Mg Tablet, 10 MG PO DAILY, (Reported) Aspirin 81 Mg Tablet.dr, 81 MG PO DAILY, (Reported) Atorvastatin Calcium 10 Mg Tablet, 10 MG PO HS, #30 Ref 4 Prescribed by: ANDREA ELIAS on 02/03/17 0959 Bupropion HCl 150 Mg Tablet.er, 150 MG PO BID, (Reported) Carvedilol 3.125 Mg Tablet, 3.125 MG PO BID, #60 Ref 4 Prescribed by: ANDREA ELIAS on 02/03/17 0959 Ciprofloxacin HCl 5 Ml Drops, 4 DROPS OT TID, #1 Ref 1 Prescribed by: BILL HUERTA on 02/15/17 1728 Ciprofloxacin HCl 500 Mg Tablet, 500 MG PO BID, #20 Prescribed by: BILL HUERTA on 02/15/17 1728 Clonidine HCl 0.1 Mg Tablet, 0.1 MG PO TID, #90 Ref 4 Prescribed by: ANDREA ELIAS on 02/03/17 0959 Clopidogrel Bisulfate 75 Mg Tablet, 75 MG PO HS, (Reported) Isosorbide Mononitrate 60 Mg Tab, 60 MG PO DAILY, (Reported) Losartan Potassium 50 Mg Tablet, 100 MG PO DAILY, (Reported) Nitroglycerin 0.4 Mg Tab.subl, 0.4 MG SL UD PRN for CHEST PAIN, (Reported) PLACE 1 TAB UNDER TONGUE NEEDED FOR CHEST PAIN; IF PAIN REMAINS AFTER 5 MINUTES, CALL 911 [place]-3 Fatty Acids/Fish Oil 1 Each Capsule, 1,000 MG PO BID, (Reported) Sertraline HCl 50 Mg Tablet, 50 MG PO DAILY, (Reported) Trazodone HCl 100 Mg Tablet, 100 MG PO HS, (Reported) Constitutional: see HPI (unable to obtain a complete review of systems secondary to patient's clinical condition) Psychiatric/Neurological: Headache Past Iizibpv-[place]-Rsiplx Hx Patient Social History Alcohol Beverage of Choice: Beer Recreational Drug Use: Yes Type Used: Cigarettes Former Smoker, Quit: Jan 25, 2017 2nd Hand Smoke Exposure: Yes Recent Foreign Travel: No Contact w/Someone Who Travel: No Recent Hopitalizations: Yes (01/2017 FOR TIA/CHEST PAIN) Immunizations Up To Date Tetanus Booster (TDap): Less than 5yrs PED Vaccines UTD: No Date of Influenza Vaccine: Dec 28, 2014 Seasonal Allergies Seasonal Allergies: No Surgeries History of Surgeries: Yes (hernia) Surgeries: Abdominal, Coronary Stent, Orthopedic Respiratory History of Respiratory Disorde: No Currently Using CPAP: No Currently Using BIPAP: No Cardiovascular History of Cardiac Disorders: Yes (CARDIAC STENTS) Cardiac Disorders: Coronary Artery Disease, Deep Vein Thrombosis, Heart Attack , High Cholesterol, Hypertension Neurological History of Neurological Disord: Yes Neurological Disorders: Stroke, TIA Reproductive System Hx Reproductive Disorders: No Sexually Transmitted Disease: No Genitourinary History of Genitourinary Disor: Yes (recurrent urinary tract infections) Gastrointestinal History of Gastrointestinal Di: Yes Gastrointestinal Disorders: Gastroesophageal Reflux, Hiatal Hernia, Ulcer Musculoskeletal History of Musculoskeletal Dis: No Endocrine History of Endocrine Disorders: No HEENT History of HEENT Disorders: No Loss of Vision: Denies Cancer History of Cancer: No Psychosocial History of Psychiatric Problem: Yes Behavioral Health Disorders: Depression Integumentary History of Skin or Integumenta: No Blood Transfusions History of Blood Disorders: No Adverse Reaction to a Blood Tr: No Family Medical History Significant Family History: Heart Disease, Hypertension Family Medial History: Arthritis 19 MOTHER BACTERIOLOGIST DAIRY G8 SISTER FH: COPD (chronic obstructive pulmonary disease) Hypercholesterolemia 19 MOTHER Hypertension 19 MOTHER Physical Exam Vital Signs Vital Sign - Last 12Hours 03/05/17 03/05/17 20:15 20:31 Temp 98.1 Pulse 64 Resp 16 B/P (MAP) 207/116 Pulse Ox 95 O2 Delivery Room Air O2 Flow Rate 2.00 Capillary Refill : General Appearance: WD/WN, moderate distress HEENT: PERRL/EOMI, TMs normal, pharynx normal Neck: non-tender, normal inspection Respiratory: chest non-tender, lungs clear, normal breath sounds Cardiovascular: normal peripheral pulses, regular rate, rhythm, no edema Peripheral Pulses: 2+ Dorsalis Pedis (R), 2+ Left Dors-Pedis (L), 2+ Radial Pulses (R), 2+ Radial Pulses (L) Gastrointestinal: normal bowel sounds, non tender, soft Neurologic/Psychiatric: alert Crainal Nerves: normal hearing, No abnormal pupil position, abnormal speech, facial asymmetry, facial droop, facial weakness, No gaze palsy Motor/Sensory: sensory deficit, weak motor strength RUE, weak motor strength RLE Skin: normal color, warm/dry Stroke NIH Stroke Scale Assessment Select: Initial Level of Consciousness: 0=Alert (0), Level of Consciousness- Questions: 1=Answers one question (1), LOC Commands: 0=Performs both tasks (0), Gaze: Normal (0), Visual Rodriguez: 0=No visual loss (0), Facial Movement (Facial Paresis): 2=Partial paralysis (2), Motor Function-Arms Right: 3=No effort/ gravity (3), Motor Function-Arms Left: 1=Drift (1), Motor Function-Legs Right: 4 =No movement (4), Motor Function-Legs Left: 1=Drift (1), Limb Ataxia: 1=Present in one limb (1), Sensory: 2=Severe to total loss (2), Best Language: 2=Severe aphasia (2), Dysarthria: 2=Severe dysarthria (2), Extinction & Inattention: 0= No abnormality (0), Total: 19 Stroke Thrombolytic Exclusion Age 18 or Over: Yes Acute intenal hemorrhage: No History of CVA: No Uncontrolled Coagulation Defec: No Intracranial Hemorrhage: No Severe Hypertension: No GI or Bleed: No Subarachnoid Hemorrhage: No Intracranial Neoplasm/Aneurysm: No Oral Anticoagulants: No Surgery or Trauma: No Puncture of Non-Compressible V: No Recent CPR: No Diabetic Hemorrhagic Retinopat: No Organ Biopsy: No Recent Obstetric Delivery: No Glucose: No Significant Hepatic Dysfunctio: No NIH Stoke Scale >22: No Bacterial Endocarditis: No Pericarditis: No Improving Symptoms: No Platelets: No TPA Contraindication: No IV - TPa Received IV - TPa Procedure Performed?: No Focused Exam Time of Focused Exam: 21:53 Respiratory: Chest Non Tender, Lungs Clear, Normal Breath Sounds Cardiovascular: Regular Rate, Rhythm, No Edema, No Murmur, Normal Peripheral Pulses Capillary Refill: Less Than 3 Seconds Peripheral Pulses: 2+ Radial Pulses (R), 2+ Radial Pulses (L) Skin: normal color, warm/dry Progress/Results/Core Measures Results/Orders Lab Results Laboratory Tests Test 03/05/17 20:19 03/05/17 20:25 03/05/17 20:59 Range/Units White Blood Count 5.8 4.3-11.0 10^3/uL Red Blood Count 4.18 L 4.35-5.85 10^6/uL Hemoglobin 12.7 L 13.3-17.7 G/DL Hematocrit 37 L 40-54 % Mean Corpuscular Volume 89 80-99 FL Mean Corpuscular Hemoglobin 30 25-34 PG Mean Corpuscular Hemoglobin Concent 34 32-36 G/DL Red Cell Distribution Width 12.7 10.0-14.5 % Platelet Count 270 130-400 10^3/uL Mean Platelet Volume 9.7 7.4-10.4 FL Neutrophils (%) (Auto) 54 42-75 % Lymphocytes (%) (Auto) 28 12-44 % Monocytes (%) (Auto) 12 0-12 % Eosinophils (%) (Auto) 5 0-10 % Basophils (%) (Auto) 1 0-10 % Neutrophils # (Auto) 3.2 1.8-7.8 X 10^3 Lymphocytes # (Auto) 1.6 1.0-4.0 X 10^3 Monocytes # (Auto) 0.7 0.0-1.0 X 10^3 Eosinophils # (Auto) 0.3 0.0-0.3 10^3/uL Basophils # (Auto) 0.0 0.0-0.1 10^3/uL Prothrombin Time 12.3 12.2-14.7 SEC INR Comment 0.9 0.8-1.4 Activated Partial Thromboplast Time 27 24-35 SEC D-Dimer 0.52 H 0.00-0.49 UG/ML Sodium Level 137 135-145 MMOL/L Potassium Level 4.8 3.6-5.0 MMOL/L Chloride Level 103 98-107 MMOL/L Carbon Dioxide Level 23 21-32 MMOL/L Anion Gap 11 5-14 MMOL/L Blood Urea Nitrogen 26 H 7-18 MG/DL Creatinine 1.74 H 0.60-1.30 MG/DL Estimat Glomerular Filtration Rate 41 BUN/Creatinine Ratio 15 Glucose Level 100 70-105 MG/DL Calcium Level 9.6 8.5-10.1 MG/DL Total Bilirubin 0.3 0.1-1.0 MG/DL Aspartate Amino Transf (AST/SGOT) 20 5-34 U/L Alanine Aminotransferase (ALT/SGPT) 29 0-55 U/L Alkaline Phosphatase 156 H 40-136 U/L Troponin I < 0.30 <0.30 NG/ML Total Protein 7.8 6.4-8.2 GM/DL Albumin 4.4 3.2-4.5 GM/DL Glucometer 93 70-110 MG/DL Urine Color YELLOW Urine Clarity CLEAR Urine pH 5 5-9 Urine Specific [place] 1.025 H 1.016-1.022 Urine Protein 2+ H NEGATIVE Urine Glucose (UA) NEGATIVE NEGATIVE Urine Ketones NEGATIVE NEGATIVE Urine Nitrite NEGATIVE NEGATIVE Urine Bilirubin NEGATIVE NEGATIVE Urine Urobilinogen NORMAL NORMAL MG/DL Urine Leukocyte Esterase 3+ H NEGATIVE Urine RBC (Auto) NEGATIVE NEGATIVE Urine RBC NONE /HPF Urine WBC 10-25 H /HPF Urine Crystals NONE /LPF Urine Bacteria TRACE /HPF Urine Casts NONE /LPF Urine Mucus SMALL H /LPF Urine Culture Indicated YES My Orders Orders - ANGUS RUBALCAVA Cbc With Automated Diff (03/05/17 20:23) Protime With Inr (03/05/17 20:23) Partial Thromboplastin Time (03/05/17 20:23) Comprehensive Metabolic Panel (03/05/17 20:23) Fibrin Degradation Products (03/05/17 20:23) Troponin I (03/05/17 20:23) Ua Culture If Indicated (03/05/17 20:23) Chest 1 View, Ap/Pa Only (03/05/17 20:23) Catheter(Urinary) Insert & Ass 03,15 (03/05/17 20:23) Ekg Tracing (03/05/17 20:23) Nothing By Mouth (03/06/17 Breakfast) Accucheck Stat ONCE (03/05/17 20:23) Saline Lock/Iv-Start (03/05/17 20:23) Saline Lock/Iv-Start (03/05/17 20:23) Vital Signs - Stroke Q15M (03/05/17 20:23) Ct Head Wo-R/O Stroke (03/05/17 20:23) O2 (03/05/17 20:23) Intake & Output 06,14,22 (03/05/17 20:23) Monitor-Rhythm Ecg Trace Only (03/05/17 20:23) Dysphagia Screening Tool (03/05/17 20:23) Post Thrombolytic Adminstratio (03/05/17 20:23) Urine Culture (03/05/17 20:59) Fentanyl Injection (Sublimaze Injection (03/05/17 21:45) Ondansetron Injection (Zofran Injectio (03/05/17 21:45) Medications Given in ED Current Medications Medications Dose Ordered Sig/Mckenzie Route Start Time Stop Time Status Last Admin Dose Admin Fentanyl Citrate 50 mcg ONCE ONCE IVP 03/05/17 21:45 03/05/17 21:46 DC 03/05/17 21:49 50 MCG Ondansetron HCl 4 mg ONCE ONCE IVP 03/05/17 21:45 03/05/17 21:46 DC 03/05/17 21:49 4 MG Vital Signs/I&O Vital Sign - Last 12Hours 03/05/17 03/05/17 20:15 20:31 Temp 98.1 Pulse 64 Resp 16 B/P (MAP) 207/116 Pulse Ox 95 95 O2 Delivery Room Air Nasal Cannula O2 Flow Rate 2.00 ECG Initial ECG Impression Date: Mar 05, 2017 Diagnostic Imaging Diagonstic Imaging: CT Plain Films/CT/US/NM/MRI: head Comments No intracranial hemorrhage, mass effect, midline shift, tumor. Reviewed: Reviewed by Me Diagonstic Imaging: Xray Plain Films/CT/US/NM/MRI: chest Comments No acute cardiopulmonary process noted. Reviewed: Reviewed by Me Consults Consults : Consults Notes [facility] Neurologist: 2049; discussed this case adn compared to last imaging adn feels this was a stroke mimic. Given his recent TPA being a soft relative contraindication he would hold off TPA and get a CTA stat. Then if neg he would rec a MRI in the AM. 2100: GFR is 41 and hour Radiology policy will not allow us to use and Candice contrast imaging at this time so after speaking again with Dr. Byrne he is okay with us shipping the patient to where they will obtain advanced imaging. Departure Impression Impression: Primary Impression: CVA (cerebral vascular accident) Qualified Codes: I63.9 - Cerebral infarction, unspecified Additional Impression: Hemiparesis Qualified Codes: G81.91 - Hemiplegia, unspecified affecting right dominant side Disposition: XFER SHT-TRM HOSP Condition: Stable Transfer Time Spoke to Accepting Phy: 21:[address] Byrne is accepting the patient and we now have a bed assignment. Transfer Time: 22:00 Transfer Facility: [facility] Method of Transfer: EMS Departure-Patient Inst. Referrals: ANDRES RABAGO DO (PCP/Family) Primary Care Physician Copy Copies To 1: ANDRES RABAGO TITUS J Mar 05, 2017 20:28
[2017-03-05 20:31] LABS: BASOPHILS % (AUTO) 1 % (0-10); EOSINOPHILS # (AUTO) 0.3 10^3/uL (0.0-0.3); EOSINOPHILS % (AUTO) 5 % (0-10); LYMPHOCYTES # (AUTO) 1.6 X 10^3 (1.0-4.0); LYMPHOCYTES % (AUTO) 28 % (12-44); MEAN CORPUSCULAR HEMOGLOBIN 30 PG (25-34); MEAN CORPUSCULAR HGB CONC 34 G/DL (32-36); MEAN CORPUSCULAR VOLUME 89 FL (80-99); MEAN PLATELET VOLUME 9.7 FL (7.4-10.4); MONOCYTES # (AUTO) 0.7 X 10^3 (0.0-1.0); MONOCYTES % (AUTO) 12 % (0-12); NEUTROPHILS # (AUTO) 3.2 X 10^3 (1.8-7.8); NEUTROPHILS % (AUTO) 54 % (42-75); PLATELET COUNT 270 10^3/uL (130-400); RED BLOOD COUNT 4.18 10^6/uL (4.35-5.85); RED CELL DISTRIBUTION WIDTH 12.7 % (10.0-14.5); WHITE BLOOD COUNT 5.8 10^3/uL (4.3-11.0)
[2017-03-05 20:44] LABS: INR 0.9 (0.8-1.4); PROTHROMBIN TIME PATIENT 12.3 SEC (12.2-14.7)
--- NOTE | 2017-03-05 20:48 | Diagnostic Imaging Report ---
Indication: Right-sided weakness nonverbal Comparisons: September 28, 2016. FINDINGS: The midline structures are nondisplaced. There is no evidence of mass, mass effect, hydrocephalus or hemorrhage. De Los Santos-white differentiation is normal. There is no sulcal effacement. There are no abnormal extra-axial fluid collections or hemorrhage. Basilar cisterns appear normal. Sinuses, orbits and mastoid air cells are normal. Bone windows show no calvarial changes. IMPRESSION: Unremarkable nonenhanced CT brain. Dictated by: Dictated on workstation # [id number]
[2017-03-05 20:57] LABS: ALANINE AMINOTRANSFERASE 29 U/L (0-55); ALBUMIN 4.4 GM/DL (3.2-4.5); ANION GAP 11 MMOL/L (5-14); ASPARTATE AMINO TRANSFERASE 20 U/L (5-34); BILIRUBIN,TOTAL 0.3 MG/DL (0.1-1.0); BLOOD UREA NITROGEN 26 MG/DL (7-18); BUN/CREATININE RATIO 15; CALCIUM 9.6 MG/DL (8.5-10.1); CARBON DIOXIDE 23 MMOL/L (21-32); CHLORIDE 103 MMOL/L (98-107); CREATININE SERUM 1.74 MG/DL (0.60-1.30); GFR ESTIMATED 41; GLUCOSE 100 MG/DL (70-105); POTASSIUM 4.8 MMOL/L (3.6-5.0); SODIUM 137 MMOL/L (135-145); TOTAL PROTEIN 7.8 GM/DL (6.4-8.2)
[2017-03-05 21:02] LABS: TROPONIN I < 0.30 NG/ML (<0.30)
--- NOTE | 2017-03-05 21:05 | Diagnostic Imaging Report ---
INDICATION: 56-year-old male with the right-sided weakness, shortness of breath, nonverbal speech. COMPARISON: 02/10/2017. EXAMINATION: Single underpenetrated film of the chest was obtained. FINDINGS: Normal heart, pulmonary vasculature, pleura and diaphragms with no focal opacities. Soft tissues and visualized bony thorax are normal. IMPRESSION: No acute cardiopulmonary changes. Dictated by: Dictated on workstation # [id number]
[2017-03-05 21:11] LABS: BILIRUBIN,URINE NEGATIVE (NEGATIVE); KETONES,URINE NEGATIVE (NEGATIVE); LEUKOCYTE ESTERASE ,URINE 3+ (NEGATIVE); NITRITE,URINE NEGATIVE (NEGATIVE); PH,URINE 5 (5-9); PROTEIN,URINE 2+ (NEGATIVE); UROBILINOGEN,URINE NORMAL (NORMAL)
[2017-03-05] MEDS ORDERED: ONDANSETRON 4 MG/2 ML (SDV) Z0FRAN IVP ONE (21:45)
[2017-03-05] MEDS ORDERED: fentaNYL INJECTION 100 MCG/2 ML AMP IVP ONE (21:45)
[2017-03-05 23:43] VITALS: BP 147/87
[2017-04-22] MEDS ORDERED: TAMS0.4C98 PO (19:19)
[2017-04-22] MEDS ORDERED: CIPR500T4 PO (19:19)
== END 2017-03-05 23:43 | disposition short-term general hospital (02) ==
LOC: EDUNIT# 20:12 → ER 20:15
DX: I63.9 Cerebral infarction, unspecified (principal); G81.91 Hemiplegia, unspecified affecting right dominant side; I25.10 Atherosclerotic heart disease of native coronary artery without angina pectoris; I25.2 Old myocardial infarction; E78.00 Pure hypercholesterolemia, unspecified; I10 Essential (primary) hypertension; K21.9 Gastro-esophageal reflux disease without esophagitis; F32.9 Major depressive disorder, single episode, unspecified; Z82.49 Family history of ischemic heart disease and other diseases of the circulatory system; Z87.440 Personal history of urinary (tract) infections; Z87.19 Personal history of other diseases of the digestive system; Z86.718 Personal history of other venous thrombosis and embolism; Z79.82 Long term (current) use of aspirin; Z87.891 Personal history of nicotine dependence; Z95.5 Presence of coronary angioplasty implant and graft
CPT/HCPCS: 36415; 51702; 70450; 71010; 80053; 80306; 81000; 82962; 84484; 85025; 85379; 85610; 85730; 87088; 93005; 93041; 96374; 96375

== ENCOUNTER 2017-03-30 10:40 | Observation (INO) | payer OTHER ==
[2017-03-30] VITALS (7 sets, daily range): BP systolic 105–189; BP diastolic 73–103
[~2017-03-30] VITALS: Ht 175.3 cm; Wt 77.8 kg
--- OUTSIDE RECORDS SUMMARY | 2017-03-30 10:49 | XMS REPORT | Continuity of Care Document ---
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 Brake Operator Name Role Phone [employer] Unavailable Unavailable Problems Medications Allergies, Adverse Reactions, Alerts Immunizations Results Vital Signs Encounters Location Location Details Encounter Type Encounter Number Reason For Visit Attending Provider ADM Date DC Date Status Source O 03/05/2017 03/05/2017 Active [facility] INPATIENT [id number] JACKELYN MURDOCK 03/06/20172016 Active [facility] Procedures Plan of Care Social History Assessment and Plan Family History Value Date Source Advance Directives Order Name Results Value Date Source
--- OUTSIDE RECORDS SUMMARY | 2017-03-30 10:50 | XMS REPORT | Encounter Summary ---
Author Author [facility] Organization [facility] Address Unknown Phone Unavailable Care Team Providers Care Transverse Abdominal Muscle Nurse Name Role Phone PCP Unavailable Encounter Details Date Type Department Care Team Description 03/06/2017 [facility] [address] [place] [address] Social History Tobacco Use Types Packs/Day Years Used Date Current Every Day Smoker Cigarettes Alcohol Use Drinks/Week oz/Week Comments Yes 0 Standard 0.0 drinks or equivalent Sex Assigned at Date Recorded Not on file as of this encounter Functional Status Functional Status Response Date of Assessment Does the patient have a hearing impairment: No 03/06/2017 as of this encounter Plan of Treatment Not on fileas of this encounter Visit Diagnoses Not on filein this encounter
--- OUTSIDE RECORDS SUMMARY | 2017-03-30 10:50 | XMS REPORT | Clinical Summary ---
Author Author [facility] Organization [facility] Address Unknown Phone Unavailable Care Team Providers Care Outpatient Psychiatrist Name Role Phone PCP Unavailable Source Comments Some departments are not documenting in the electronic medical record. If you do not see the information that you expected, contact Release of Information in the Health Information Management department at [phone] for further assistance in locating additional records.[facility] Allergies Active Allergy Reactions Severity Noted Date Comments Penicillins EDEMA High 08/04/2016 Topiramate DIARRHEA, VISION CHANGES Medium 03/15/2017 Blurry vision, diarrhea, tingling sensation in feet Current Medications Prescription Sig. Disp. Refills Start End Date Status Date aspirin EC 81 mg tablet Take 81 mg by mouth at Active bedtime daily. Take with food. nitroglycerin (NITROSTAT) Place 1 Tab under tongue 25 Tab 3 08/10/19 Active 0.4 mg tabletIndications: every 5 minutes as needed 17 Coronary artery disease for Chest Pain. Max of 3 of [place] artery of tablets, call 911. [place] heart with stable angina pectoris (HCC), Essential [...] 3 01/15/20 Active mg tablet daily. 17 topiramate (TOPAMAX) 25 Take 1 tablet by mouth at 180 tablet 0 Active mg tablet bedtime daily. 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 ([facility]) Overview: 07/29/16: heart cath ([place], [place]) - total occlusion of the right [...] Encounters Date Type Specialty Care Team Description 03/15/2017 Telephone Neurology Melquiades Byrne DO General Question 03/07/2017 Ancillary Radiology Outpatient, Radiologist Diagnosis unknown Orders 03/06/2017 [facility] Melquiades Byrne DO Episode of transient Encounter neurologic symptoms 03/06/2017 Procedure Pass 03/05/2017 Hospital Radiology Encounter 03/05/2017 Procedure Pass 03/05/2017 Procedure Pass 03/05/2017 Procedure Pass 03/05/2017 Hospital Radiology Encounter 01/12/2017 Hospital Neurosurgery Julianna Baer, Weakness - [...] Vital Sign Reading Time Taken Blood Pressure 130/73 03/06/2017 1:42 PM CDT Pulse 72 03/06/2017 1:42 PM CDT Temperature 36.8 C (98.2 F) 03/06/2017 1:42 PM CDT Respiratory Rate - - Oxygen Saturation 96% 03/06/2017 1:42 PM CDT Inhaled Oxygen - - Concentration Weight 77 kg (169 lb 12.1 oz) 03/06/2017 12:40 AM CDT Height 175.3 cm (5' 9") 03/06/2017 12:40 AM CDT Body Mass Index 25.07 03/06/2017 12:40 AM CDT Plan of Treatment Health Maintenance Due Date Last Done Comments HEPATITIS C SCREENING 1961 PHYSICAL (COMPREHENSIVE) 1968 EXAM PERTUSSIS VACCINE 1972 TETANUS VACCINE 1978 COLORECTAL CANCER 2011 SCREENING INFLUENZA VACCINE 03/20/2017 Procedures Procedure Name Priority Date/Time Associated Diagnosis Comments ECG-SCAN 03/14/2017 Results for this 12:20 PM CDT procedure are in the results section. ECG-SCAN 03/14/2017 Results for this 12:19 PM CDT procedure are in the results section. ECG UNCONFIRMED-SCAN 01/21/2017 Results for this 7:42 AM CDT procedure are in the results section. TELEMETRY STRIPS-SCAN 01/20/2017 Results for this 1:41 PM CDT procedure are in the results section. ECG-SCAN 01/16/2017 Results for this 11:23 AM CDT procedure are in the results section. from Last 3 Months Results * ECG-SCAN (03/14/2017 12:20 PM) Narrative Ordered by an unspecified provider. * ECG-SCAN (03/14/2017 12:19 PM) Narrative Ordered by an unspecified provider. * MRI HEAD WO/W CONTRAST (03/06/2017 3:56 AM) Only the most recent of 2 results within the time period is included. Specimen Performing Laboratory [facility] RESULTS Impressions 1.No evidence of acute or recent infarct, intracranial hemorrhage, or mass effect. 2.Stable old right basal ganglia lacunar infarct. Approved by Amos Sheppard M.D. on 03/06/2017 8:06 AM By my electronic signature, I attest that I have personally reviewed the images for this examination and formulated the interpretations and opinions expressed in this report Finalized by Gabo Rhoades M.D. on 03/06/2017 8:54 AM. Dictated by Amos Sheppard M.D. on 03/06/2017 6:59 AM. Narrative EXAM: MRI BRAIN HISTORY: 56-year-old male, evaluate for ischemic stroke TECHNIQUE: Multiplanar and multisequence MR imaging of the head was performed. This was done both before and after the administration of MultiHancecontrast. COMPARISON: CTA of the head and neck from 3 hours prior. FINDINGS: Dr. Gabo Rhoades M.D. has personally reviewed these images and formulated the interpretations and opinions expressed in this report. The ventricles and subarachnoid spaces are normal in size and configuration. There is a stable old lacunar infarct in the right basal ganglia. Brain parenchyma is otherwise normal in signal. There is no midline shift or mass effect. There is no area of abnormal contrast enhancement. The vascular flow- voids are unremarkable. Diffusion weighted imaging is not indicative of acute or recent infarct. Procedure Note Interface, Radiant Results - 03/06/2017 8:57 AM CDT EXAM: MRI BRAIN HISTORY: 56-year-old male, evaluate for ischemic stroke TECHNIQUE: Multiplanar and multisequence MR imaging of the head was performed. This was done both before and after the administration of MultiHancecontrast. COMPARISON: CTA of the head and neck from 3 hours prior. FINDINGS: Dr. Gabo Rhoades M.D. has personally reviewed these images and formulated the interpretations and opinions expressed in this report. The ventricles and subarachnoid spaces are normal in size and configuration. There is a stable old lacunar infarct in the right basal ganglia. Brain parenchyma is otherwise normal in signal. There is no midline shift or mass effect. There is no area of abnormal contrast enhancement. The vascular flow- voids are unremarkable. Diffusion weighted imaging is not indicative of acute or recent infarct. IMPRESSION 1. No evidence of acute or recent infarct, intracranial hemorrhage, or mass effect. 2. Stable old right basal ganglia lacunar infarct. Approved by Amos Sheppard M.D. on 03/06/2017 8:06 AM By my electronic signature, I attest that I have personally reviewed the images for this examination and formulated the interpretations and opinions expressed in this report Finalized by Gabo Rhoades M.D. on 03/06/2017 8:54 AM. Dictated by Amos Sheppard M.D. on 03/06/2017 6:59 AM. * PHENCYCLIDINES-URINE RANDOM (03/06/2017 1:44 AM) Only the most recent of 2 results within the time period is included. Component Value Ref Range Phencyclidine (PCP) NEG NEG-NEG Comment: RESULTS WERE OBTAINED BY IMMUNOASSAY AND ARE PRESUMPTIVE ONLY. POSITIVE INDICATES THE PRESENCE OF SUBSTANCE WITH CHARACTERISTICS SIMILAR TO DRUG-DRUG CLASS OR METABOLITE IN CONC. EQUAL TO OR EXCEEDING VALUES LISTED. PHENCYCLIDINE (PCP) 25 NG/ML Specimen Performing Laboratory [facility] [address] [place] [address] * OPIATES-URINE RANDOM (03/06/2017 1:44 AM) Only the most recent of 2 results within the time period is included. Component Value Ref Range Opiates-Urine NEG NEG-NEG Comment: RESULTS WERE OBTAINED BY IMMUNOASSAY AND ARE PRESUMPTIVE ONLY. POSITIVE INDICATES THE PRESENCE OF SUBSTANCE WITH CHARACTERISTICS SIMILAR TO DRUG-DRUG CLASS OR METABOLITE IN CONC. EQUAL TO OR EXCEEDING VALUES LISTED. OPIATES 200 0 NG/ML Specimen Performing Laboratory [facility] [address] [place] [address] * COCAINE-URINE RANDOM (03/06/2017 1:44 AM) Only the most recent of 2 results within the time period is included. Component Value Ref Range Cocaine-Urine NEG NEG-NEG Comment: RESULTS WERE OBTAINED BY IMMUNOASSAY AND ARE PRESUMPTIVE ONLY. POSITIVE INDICATES THE PRESENCE OF SUBSTANCE WITH CHARACTERISTICS SIMILAR TO DRUG-DRUG CLASS OR METABOLITE IN CONC. EQUAL TO OR EXCEEDING VALUES LISTED. COCAINE 300 NG/ML Specimen Performing Laboratory Urine [facility] [address] [place] [id number] * CANNABINOIDS-URINE RANDOM (03/06/2017 1:44 AM) Only the most recent of 2 results within the time period is included. Component Value Ref Range THC NEG NEG-NEG Comment: RESULTS WERE OBTAINED BY IMMUNOASSAY AND ARE PRESUMPTIVE ONLY. POSITIVE INDICATES THE PRESENCE OF SUBSTANCE WITH CHARACTERISTICS SIMILAR TO DRUG-DRUG CLASS OR METABOLITE IN CONC. EQUAL TO OR EXCEEDING VALUES LISTED. CANNABINOIDS 50 NG/ML Specimen Performing Laboratory Urine [facility] [address] [place] [phone] * BENZODIAZEPINES-URINE RANDOM (03/06/2017 1:44 AM) Only the most recent of 2 results within the time period is included. Component Value Ref Range Benzodiazepines NEG NEG-NEG Comment: RESULTS WERE OBTAINED BY IMMUNOASSAY AND ARE PRESUMPTIVE ONLY. POSITIVE INDICATES THE PRESENCE OF SUBSTANCE WITH CHARACTERISTICS SIMILAR TO DRUG-DRUG CLASS OR METABOLITE IN CONC. EQUAL TO OR EXCEEDING VALUES LISTED. BENZODIAZEPINES 200 NG/ML Specimen Performing Laboratory Urine [address] [id number] * BARBITURATES-URINE RANDOM (03/06/2017 1:44 AM) Only the most recent of 2 results within the time period is included. Component Value Ref Range Barbiturates,Urine NEG NEG-NEG Comment: RESULTS WERE OBTAINED BY IMMUNOASSAY AND ARE PRESUMPTIVE ONLY. POSITIVE INDICATES THE PRESENCE OF SUBSTANCE WITH CHARACTERISTICS SIMILAR TO DRUG-DRUG CLASS OR METABOLITE IN CONC. EQUAL TO OR EXCEEDING VALUES LISTED. BARBITURATES 200 NG/ML Specimen Performing Laboratory Urine [facility] [address] [place] [id number] * AMPHETAMINES-URINE RANDOM (03/06/2017 1:44 AM) Only the most recent of 2 results within the time period is included. Component Value Ref Range Amphetamines NEG NEG-NEG Comment: RESULTS WERE OBTAINED BY IMMUNOASSAY AND ARE PRESUMPTIVE ONLY. POSITIVE INDICATES THE PRESENCE OF SUBSTANCE WITH CHARACTERISTICS SIMILAR TO DRUG-DRUG CLASS OR METABOLITE IN CONC. EQUAL TO OR EXCEEDING VALUES LISTED. AMPHETAMINES 1000 NG/ML Specimen Performing Laboratory Urine [facility] [address] [place] [id number] * PROTIME INR (PT) (03/06/2017 1:22 AM) Only the most recent of 2 results within the time period is included. Component Value Ref Range INR 1.0 0.8 - 1.2 Specimen Performing Laboratory Blood MAIN LAB [address] [place], [place] [id number] * CBC (03/06/2017 1:22 AM) Only the most recent of 3 results within the time period is included. Component Value Ref Range White Blood Cells 5.3 4.5 - 11.0 K/UL RBC 4.09 (L) 4.4 - 5.5 M/UL Hemoglobin 12.5 (L) 13.5 - 16.5 GM/DL Hematocrit 36.7 (L) 40 - 50 % MCV 89.7 80 - 100 FL MCH 30.6 26 - 34 PG MCHC 34.2 32.0 - 36.0 G/DL RDW 13.5 11 - 15 % Platelet Count 243 150 - 400 K/UL MPV 7.9 7 - 11 FL Specimen Performing Laboratory [facility]IN [facility] [address] [place], [place] [id number] * PHOSPHORUS (03/06/2017 1:22 AM) Only the most recent of 3 results within the time period is included. Component Value Ref Range Phosphorus 3.8 2.0 - 4.0 MG/DL Specimen Performing Laboratory [facility] [address] [place], [place] [id number] * MAGNESIUM (03/06/2017 1:22 AM) Only the most recent of 3 results within the time period is included. Component Value Ref Range Magnesium 1.8 1.6 - 2.6 mg/dL Specimen Performing Laboratory [facility] [address] [place] [address] * ALCOHOL LEVEL (03/06/2017 1:22 AM) Component Value Ref Range Alcohol <10 MG/DL Specimen Performing Laboratory [facility] MAIN [facility] [address] [place] [id number] * COMPREHENSIVE METABOLIC PANEL (03/06/2017 1:22 AM) Component Value Ref Range Sodium 134 (L) 137 - 147 MMOL/L Potassium 4.5 3.5 - 5.1 MMOL/L Chloride 102 98 - 110 MMOL/L Glucose 93 70 - 100 MG/DL Blood Urea Nitrogen 27 (H) 7 - 25 MG/DL Creatinine 1.58 (H) 0.4 - 1.24 MG/DL Calcium 9.3 8.5 - 10.6 MG/DL Total Protein 7.2 6.0 - 8.0 G/DL Total Bilirubin 0.3 0.3 - 1.2 MG/DL Albumin 4.1 3.5 - 5.0 G/DL Alk Phosphatase 135 (H) 25 - 110 U/L AST (SGOT) 18 7 - 40 U/L CO2 27 21 - 30 MMOL/L ALT (SGPT) 24 7 - 56 U/L Anion Gap 5 3 - 12 eGFR Non 46 (L) >60 mL/min Comment: The eGFR is not validated for use in drug dosing adjustments. Continue to use estimated creatinine clearance per dosing reference text. Please contact the Clinical Pharmacist for questions. eGFR 55 (L) >60 mL/min Comment: The eGFR is not validated for use in drug dosing adjustments. Continue to use estimated creatinine clearance per dosing reference text. Please contact the Clinical Pharmacist for questions. Specimen Performing Laboratory [facility] [address] [place] [address] * CT BRAIN PERF (03/06/2017 1:04 AM) Only the most recent of 2 results within the time period is included. Specimen Performing Laboratory [facility] RESULTS Impressions CTA head: 1.No evidence of significant intracranial arterial stenosis or occlusion. 2.Old right putamen lacunar infarct. CTA neck: No evidence of arterial dissection or occlusion. CT perfusion: No mismatch perfusion defect identified. By my electronic signature, I attest that I have personally reviewed the images for this examination and formulated the interpretations and opinions expressed in this report Finalized by Stuart Cantor M.D. on 03/06/2017 1:25 AM. Dictated by Jin Palm M.D. on 03/06/2017 1:08 AM. Narrative EXAM: CTA HEAD AND NECK, CTA BRAIN PERFUSION HISTORY: 56-year-old male, right sided weakness. TECHNIQUE: Multiple contiguous axial images were obtained of the brain and neck following the administration of Isovue-370IV contrast. CTA maximum density projection images were obtained of the brain and neck with image post processing.Perfusion imaging was also obtained with CBV, MTT, TTD, and CBF mapping. COMPARISON: CTA head/neck/perfusion from January 12, 2017 FINDINGS: Dr. Stuart Cantor M.D. has personally reviewed these images and formulated the interpretations and opinions expressed in this report. CTA head: Redemonstration of small old lacunar infarct within the posterior right putamen. The ventricles and subarachnoid spaces are normal in size and configuration. The davis white matter interfaces are stable. No abnormal enhancing mass lesion identified. There is no midline shift or mass effect. There is no evidence of acute intracranial hemorrhage. The basal cisterns are patent. The calvarium is intact. The distal internal carotid, vertebral, and basilar arteries are patent without focal narrowing or occlusion. There is mild mixed atherosclerotic calcification of the bilateral cavernous and left clinoid ICAs without hemodynamically significant stenosis. There is origin of the right BOTTOM SANDER. 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 There are mildly prominent mediastinal lymph nodes, likely reactive. CT Perfusion: Blood flow, blood volume, and time-dependent maps are symmetric. No mismatch perfusion defect is identified. Procedure Note Interface, Radiant Results - 03/06/2017 1:28 AM CDT EXAM: CTA HEAD AND NECK, CTA BRAIN PERFUSION HISTORY: 56-year-old male, right sided weakness. TECHNIQUE: Multiple contiguous axial images were obtained of the brain and neck following the administration of Isovue-370 IV contrast. CTA maximum density projection images were obtained of the brain and neck with image post processing. Perfusion imaging was also obtained with CBV, MTT, TTD, and CBF mapping. COMPARISON: CTA head/neck/perfusion from January 12, 2017 FINDINGS: Dr. Stuart Cantor M.D. has personally reviewed these images and formulated the interpretations and opinions expressed in this report. CTA head: Redemonstration of small old lacunar infarct within the posterior right putamen. The ventricles and subarachnoid spaces are normal in size and configuration. The davis white matter interfaces are stable. No abnormal enhancing mass lesion identified. There is no midline shift or mass effect. There is no evidence of acute intracranial hemorrhage. The basal cisterns are patent. The calvarium is intact. The distal internal carotid, vertebral, and basilar arteries are patent without focal narrowing or occlusion. There is mild mixed atherosclerotic calcification of the bilateral cavernous and left clinoid ICAs without hemodynamically significant stenosis. There is origin of the right BOTTOM SANDER. 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 There are mildly prominent mediastinal lymph nodes, likely reactive. CT Perfusion: Blood flow, blood volume, and time-dependent maps are symmetric. No mismatch perfusion defect is identified. IMPRESSION CTA head: 1. No evidence of significant intracranial arterial stenosis or occlusion. 2. 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 CTA neck: No evidence of arterial dissection or occlusion. CT perfusion: No mismatch perfusion defect identified. By my electronic signature, I attest that I have personally reviewed the images for this examination and formulated the interpretations and opinions expressed in this report Finalized by Stuart Cantor M.D. on 03/06/2017 1:25 AM. Dictated by Jin Palm M.D. on 03/06/2017 1:08 AM. * CTA NECK WO/W CONTRAST+POST P (03/06/2017 1:04 AM) Only the most recent of 2 results within the time period is included. Specimen Performing Laboratory [facility] RESULTS Impressions CTA head: 1.No evidence of significant intracranial arterial stenosis or occlusion. 2.Old right putamen lacunar infarct. CTA neck: No evidence of arterial dissection or occlusion. CT perfusion: No mismatch perfusion defect identified. By my electronic signature, I attest that I have personally reviewed the images for this examination and formulated the interpretations and opinions expressed in this report Finalized by Stuart Cantor M.D. on 03/06/2017 1:25 AM. Dictated by Jin Palm M.D. on 03/06/2017 1:08 AM. Narrative EXAM: CTA HEAD AND NECK, CTA BRAIN PERFUSION HISTORY: 56-year-old male, right sided weakness. TECHNIQUE: Multiple contiguous axial images were obtained of the brain and neck following the administration of Isovue-370IV contrast. CTA maximum density projection images were obtained of the brain and neck with image post processing.Perfusion imaging was also obtained with CBV, MTT, TTD, and CBF mapping. COMPARISON: CTA head/neck/perfusion from January 12, 2017 FINDINGS: Dr. Stuart Cantor M.D. has personally reviewed these images and formulated the interpretations and opinions expressed in this report. CTA head: Redemonstration of small old lacunar infarct within the posterior right putamen. The ventricles and subarachnoid spaces are normal in size and configuration. The davis white matter interfaces are stable. No abnormal enhancing mass lesion identified. There is no midline shift or mass effect. There is no evidence of acute intracranial hemorrhage. The basal cisterns are patent. The calvarium is intact. The distal internal carotid, vertebral, and basilar arteries are patent without focal narrowing or occlusion. There is mild mixed atherosclerotic calcification of the bilateral cavernous and left clinoid ICAs without hemodynamically significant stenosis. There is origin of the right BOTTOM SANDER. 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 There are mildly prominent mediastinal lymph nodes, likely reactive. CT Perfusion: Blood flow, blood volume, and time-dependent maps are symmetric. No mismatch perfusion defect is identified. Procedure Note Interface, Radiant Results - 03/06/2017 1:28 AM CDT EXAM: CTA HEAD AND NECK, CTA BRAIN PERFUSION HISTORY: 56-year-old male, right sided weakness. TECHNIQUE: Multiple contiguous axial images were obtained of the brain and neck following the administration of Isovue-370 IV contrast. CTA maximum density projection images were obtained of the brain and neck with image post processing. Perfusion imaging was also obtained with CBV, MTT, TTD, and CBF mapping. COMPARISON: CTA head/neck/perfusion from January 12, 2017 FINDINGS: Dr. Stuart Cantor M.D. has personally reviewed these images and formulated the interpretations and opinions expressed in this report. CTA head: Redemonstration of small old lacunar infarct within the posterior right putamen. The ventricles and subarachnoid spaces are normal in size and configuration. The davis white matter interfaces are stable. No abnormal enhancing mass lesion identified. There is no midline shift or mass effect. There is no evidence of acute intracranial hemorrhage. The basal cisterns are patent. The calvarium is intact. The distal internal carotid, vertebral, and basilar arteries are patent without focal narrowing or occlusion. There is mild mixed atherosclerotic calcification of the bilateral cavernous and left clinoid ICAs without hemodynamically significant stenosis. There is origin of the right BOTTOM SANDER. 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 There are mildly prominent mediastinal lymph nodes, likely reactive. CT Perfusion: Blood flow, blood volume, and time-dependent maps are symmetric. No mismatch perfusion defect is identified. IMPRESSION CTA head: 1. No evidence of significant intracranial arterial stenosis or occlusion. 2. 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 CTA neck: No evidence of arterial dissection or occlusion. CT perfusion: No mismatch perfusion defect identified. By my electronic signature, I attest that I have personally reviewed the images for this examination and formulated the interpretations and opinions expressed in this report Finalized by Stuart Cantor M.D. on 03/06/2017 1:25 AM. Dictated by Jin Palm M.D. on 03/06/2017 1:08 AM. * CTA HEAD WO/W CONTR+POST PRO (03/06/2017 1:04 AM) Only the most recent of 2 results within the time period is included. Specimen Performing Laboratory [facility] RESULTS Impressions CTA head: 1.No evidence of significant intracranial arterial stenosis or occlusion. 2.Old right putamen lacunar infarct. CTA neck: No evidence of arterial dissection or occlusion. CT perfusion: No mismatch perfusion defect identified. By my electronic signature, I attest that I have personally reviewed the images for this examination and formulated the interpretations and opinions expressed in this report Finalized by Stuart Cantor M.D. on 03/06/2017 1:25 AM. Dictated by Jin Palm M.D. on 03/06/2017 1:08 AM. Narrative EXAM: CTA HEAD AND NECK, CTA BRAIN PERFUSION HISTORY: 56-year-old male, right sided weakness. TECHNIQUE: Multiple contiguous axial images were obtained of the brain and neck following the administration of Isovue-370IV contrast. CTA maximum density projection images were obtained of the brain and neck with image post processing.Perfusion imaging was also obtained with CBV, MTT, TTD, and CBF mapping. COMPARISON: CTA head/neck/perfusion from January 12, 2017 FINDINGS: Dr. Stuart Cnator M.D. has personally reviewed these images and formulated the interpretations and opinions expressed in this report. CTA head: Redemonstration of small old lacunar infarct within the posterior right putamen. The ventricles and subarachnoid spaces are normal in size and configuration. The davis white matter interfaces are stable. No abnormal enhancing mass lesion identified. There is no midline shift or mass effect. There is no evidence of acute intracranial hemorrhage. The basal cisterns are patent. The calvarium is intact. The distal internal carotid, vertebral, and basilar arteries are patent without focal narrowing or occlusion. There is mild mixed atherosclerotic calcification of the bilateral cavernous and left clinoid ICAs without hemodynamically significant stenosis. There is origin of the right BOTTOM SANDER. 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 There are mildly prominent mediastinal lymph nodes, likely reactive. CT Perfusion: Blood flow, blood volume, and time-dependent maps are symmetric. No mismatch perfusion defect is identified. Procedure Note Interface, Radiant Results - 03/06/2017 1:28 AM CDT EXAM: CTA HEAD AND NECK, CTA BRAIN PERFUSION HISTORY: 56-year-old male, right sided weakness. TECHNIQUE: Multiple contiguous axial images were obtained of the brain and neck following the administration of Isovue-370 IV contrast. CTA maximum density projection images were obtained of the brain and neck with image post processing. Perfusion imaging was also obtained with CBV, MTT, TTD, and CBF mapping. COMPARISON: CTA head/neck/perfusion from January 12, 2017 FINDINGS: Dr. Stuart Cantor M.D. has personally reviewed these images and formulated the interpretations and opinions expressed in this report. CTA head: Redemonstration of small old lacunar infarct within the posterior right putamen. The ventricles and subarachnoid spaces are normal in size and configuration. The davis white matter interfaces are stable. No abnormal enhancing mass lesion identified. There is no midline shift or mass effect. There is no evidence of acute intracranial hemorrhage. The basal cisterns are patent. The calvarium is intact. The distal internal carotid, vertebral, and basilar arteries are patent without focal narrowing or occlusion. There is mild mixed atherosclerotic calcification of the bilateral cavernous and left clinoid ICAs without hemodynamically significant stenosis. There is origin of the right BOTTOM SANDER. 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 There are mildly prominent mediastinal lymph nodes, likely reactive. CT Perfusion: Blood flow, blood volume, and time-dependent maps are symmetric. No mismatch perfusion defect is identified. IMPRESSION CTA head: 1. No evidence of significant intracranial arterial stenosis or occlusion. 2. 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 CTA neck: No evidence of arterial dissection or occlusion. CT perfusion: No mismatch perfusion defect identified. By my electronic signature, I attest that I have personally reviewed the images for this examination and formulated the interpretations and opinions expressed in this report Finalized by Stuart Cantor M.D. on 03/06/2017 1:25 AM. Dictated by Jin Palm M.D. on 03/06/2017 1:08 AM. * CT HEAD EXTERNAL IMAGING (03/05/2017 12:15 AM) Only the most recent of 3 results within the time period is included. Narrative This order has been auto finalized and does not contain a result. * GENERAL RAD CHEST EXTERNAL IMAGING (03/05/2017) Only the most recent of 2 results within the time period is included. Narrative This order has been auto finalized and does not contain a result. * ECG UNCONFIRMED-SCAN (01/21/2017 7:42 AM) Narrative Ordered by an unspecified provider. * TELEMETRY STRIPS-SCAN (01/20/2017 1:41 PM) Narrative Ordered by an unspecified provider. * ECG-SCAN (01/16/2017 11:23 AM) Narrative Ordered by an unspecified provider. * BASIC METABOLIC PANEL (01/14/2017 4:40 AM) [...] Performing Laboratory [facility] [address] [place] [address] * SWALLOW MOTION SERIES (01/13/2017 8:48 AM) [...] Celestin M.D. on 01/13/2017 9:47 AM. * IONIZED CALCIUM (01/13/2017 3:50 AM) Only the most recent of 2 results within the time period is included. Component Value Ref Range Ionized Calcium 1.09 1.0 - 1.3 MMOL/L Specimen Performing Laboratory [facility] [address] [place] [address] * CTA CHEST WO/W CONTRAST+POST IMPRESSION (01/12/2017 [...] and opinions expressed in this report * POC CREATININE, RAD (01/12/2017 1:31 PM) Component Value Ref Range Creatinine, POC 1.3 (H) 0.4 - 1.24 MG/DL Specimen Performing Laboratory [facility] [address] [place] [address] * TROPONIN-I (01/12/2017 11:48 AM) Only the most recent of 3 results within the time period is included. Component Value Ref Range Troponin-I 0.01 0.0 - 0.05 NG/ML Specimen Performing Laboratory [facility] [address] [place] [address] * LIPID PROFILE (01/12/2017 11:48 AM) Component [...] Specimen Performing Laboratory [facility] [address] [place] [address] * 2-D + DOPPLER ECHOCARDIOGRAM (01/12/2017 8:54 AM) Component Value Ref Range BSA 1.86 m2 Referring Provider Dexter Hernandes CV ECHO PV OUTFITTER CABIN Floor RN LVIDD 3.3 4.2 - 5.9 [...] sclerosis without stenosis. No pericardial effusion. * CBC AND DIFF (01/12/2017 7:34 AM) [...] Specimen Performing Laboratory [facility] [address] [place] [address] * HEMOGLOBIN A1C (01/12/2017 7:34 AM) Component Value Ref Range Hemoglobin A1C 5.5 4.0 - 6.0 % Comment: The ADA recommends that most patients with type 1 and type 2 diabetes maintain an A1c level <7%. Specimen Performing Laboratory [facility] [address] [place] [address] * CT CHEST EXTERNAL IMAGING (01/12/2017 12:15 AM) Narrative This order has been auto finalized and does not contain a result. from Last 3 Months
--- OUTSIDE RECORDS SUMMARY | 2017-03-30 10:50 | XMS REPORT | Encounter Summary ---
Author Author [facility] Organization [facility] Address Unknown Phone Unavailable Care Team Providers Care Pool Coordinator Name Role Phone PCP Unavailable Encounter Details Date Type Department Care Team Description 03/05/2017 Procedure [facility] [address] [place] [address] Social History Tobacco Use Types [...]
--- OUTSIDE RECORDS SUMMARY | 2017-03-30 10:50 | XMS REPORT | Encounter Summary ---
Author Author [facility] Organization [facility] Address Unknown Phone Unavailable Care Team Providers Care Mud Analysis Operator Name Role Phone PCP Unavailable Encounter Details Date Type Department Care Team Description 03/05/2017 Procedure [facility] [address] [place] [address] Social History Tobacco Use Types [...]
--- OUTSIDE RECORDS SUMMARY | 2017-03-30 10:50 | XMS REPORT | Encounter Summary ---
Author Author [facility] Organization [facility] Address Unknown Phone Unavailable Care Team Providers Care Cattle Dealer Name Role Phone PCP Unavailable Encounter Details Date Type Department Care Team Description 03/07/2017 Ancillary Rad Outpatient, Radiologist Diagnosis unknown Orders [address] [place] [address] Social History Tobacco Use Types Packs/Day Years [...] Treatment Not on fileas of this encounter Results * CT HEAD EXTERNAL IMAGING (03/05/2017 12:15 AM) Narrative This order has been auto finalized and does not contain a result. * GENERAL RAD CHEST EXTERNAL IMAGING (03/05/2017) Narrative This order has been auto finalized and does not contain a result. in this encounter Visit Diagnoses Diagnosis Diagnosis unknown Other unknown and unspecified cause of morbidity or mortality in this encounter
--- OUTSIDE RECORDS SUMMARY | 2017-03-30 10:50 | XMS REPORT | Encounter Summary ---
Author Author [facility] Organization [facility] Address Unknown Phone Unavailable Care Team Providers Care Sulfonator Operator Name Role Phone PCP Unavailable Reason for Visit * Reason Comments General Question Encounter Details Date Type Department Care Team Description 03/15/2017 Telephone [facility] Melquiades Byrne DO General Question Physicians - Neurology [address] [facility] [address] [place] [address] [place], [place] [phone] [id number] [phone] Social History Tobacco Use Types Packs/Day Years Used Date Current Every Day Smoker Cigarettes Alcohol Use Drinks/Week oz/Week Comments Yes 0 Standard 0.0 drinks or equivalent Sex Assigned at Date Recorded Not on file as of this encounter Functional Status Functional Status Response Date of Assessment Does the patient have a hearing impairment: No 03/06/2017 as of this encounter Miscellaneous Notes * Telephone Encounter - Brandy Coker LPN - 03/16/2017 2:07 PM CDT Patient has been added to waitlist for a general neurology appt. * Telephone Encounter - Brandy Coker LPN - 03/15/2017 5:30 PM CDT Pt called stating that he has been having blurry vision since last night and wants to know if he should be concerned of this.Also reports issue with diarrhea and tingling in his feel since he started the medication. Per Dr. Byrne, pt can try stopping the topamax and see if it gets better. Pt educated to call back tomorrow and let us know if his symptoms get better and see about scheduling an appointment with general neurology for headache management. in this encounter Plan of Treatment Not on fileas of this encounter Visit Diagnoses Not on filein this encounter
--- OUTSIDE RECORDS SUMMARY | 2017-03-30 10:50 | XMS REPORT | Encounter Summary ---
Author Author [facility] Organization [facility] Address Unknown Phone Unavailable Care Team Providers Care Rubber And Plastics Worker Name Role Phone PCP Unavailable Encounter Details Date Type Department Care Team Description 03/05/2017 Procedure [facility] [address] [place] [address] Social History Tobacco Use Types [...]
--- OUTSIDE RECORDS SUMMARY | 2017-03-30 10:51 | XMS REPORT | Encounter Summary ---
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 heel-young; and score only if out of proportion to paralysis 0=no ataxia (or aphasic, hemiplegic) 1=ataxia in upper or lower extremity 2=ataxia in upper AND lower extremity X=unable to assess due to amputation, fusion, etc 0 8. Sensory-use safety pin. Check grimace or withdrawal if stuporous. Score only stroke- related losses 0=normal 1=mild-mod unilateral loss but patient aware of touch 9or aphasic, confused) 2=total loss, pt unaware of touch. Coma, bilateral loss 1 9. Best Language-describe cookie jar picture, name objects, read sentences. May use repeating, writing, stereognosis 0=normal 1=mild-mod aphasia (diff but partly comprehensible) 2=severe aphasia (almost no info exchanged) 3=mute, global aphasia, coma. No 1 step commands 0 10. Dysarthria-read list of words 0=normal 1=mild-mod; slurred but intelligible 2=severe; unintelligible or mute 0 11. Extinction/Neglect- simultaneously touch patient on both hands, show fingers in both visual belcher, ask about deficit, left hand 0=normal, none detected. (visual loss alone) 1=neglects or extinguishes to double simult stimulation in any modality 2=profound neglect in more than one modality 0 Score 2 Was IV tPA given? No The patient was not a tPA candidate due to delayed presentation; likely not an ischemic stroke. Advanced imaging was interpreted at 0104 The patient was not a thrombectomy candidate due to not a LVO. 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) 08/09/2016 07/29/16: heart cath ([place] [place], [place]) - total occlusion of the right [...] Hyperlipidemia 08/09/2016 Hypertension 08/09/2016 Tobacco abuse 08/09/2016 Past Surgical History: Procedure Laterality Date HIATAL HERNIA REPAIR Family History Problem Relation Age of Onset COPD Sister Hyperlipidemia Mother Hypertension Mother Arthritis Mother Social History Social History Marital status: Spouse name: N/A Number of children: N/A Years of education: N/A Social History Main Topics Smoking status: Current Every Day Smoker Types: Cigarettes Smokeless tobacco: Not on file Alcohol use 0.0 oz/week 0 Standard drinks or equivalent per week Drug use: No Comment: pt denies drug use but he had a + UDS for amphetamines and methamphetamines in 10/03 Sexual activity: Not on file Other Topics Concern Not on file Social History Narrative Medications: amLODIPine (NORVASC) tablet 10 mg 10 mg Oral QDAY aspirin rectal suppository 300 mg 300 mg Rectal QDAY atorvastatin (LIPITOR) tablet 40 mg 40 mg Oral QDAY buPROPion XL (WELLBUTRIN XL) tablet 300 mg 300 mg Oral QDAY clopiDOGrel (PLAVIX) tablet 75 mg 75 mg Oral QHS enoxaparin (LOVENOX) syringe 40 mg 40 mg Subcutaneous QDAY fish oil- omega 3-DHA/EPA capsule 1,000 mg 1,000 mg Oral BID [COMPLETED] iopamidol 370 (ISOVUE-370) injection 100 mL 100 mL Intravenous ONCE isosorbide mononitrate SR (IMDUR) tablet 60 mg 60 mg Oral QDAY losartan (COZAAR) tablet 50 mg 50 mg Oral QDAY pantoprazole DR (PROTONIX) tablet 40 mg 40 mg Oral QDAY(21) [COMPLETED] sodium chloride PF 0.9% injection 50 mL 50 mL Intravenous ONCE PRN Medications: cyclobenzaprine TID PRN, nitroglycerin Q5 MIN PRN Physical Exam HEENT: normocephalic, eyes open with no discharge, nares patent, oropharynx is clear with no lesions, palate intact CV: regular rate, distal pulses palpable Chest: normal configuration, equal chest rise bilaterally Ab: soft, non-tender, no masses, no organomegaly Skin: no rashes or lesions Extended Neuro Exam: Mental status: alert, oriented to person/place/time Speech: Normal Abnormal Fluency x Comprehension x Articulation x Repetition x Naming x Cranial Nerves: Normal Abnormal II x III, IV, x V x VII x VIII x IX, X x XI x XII x Muscle/motor: Tone: nml Bulk: nml Fasciculations: none Pronator drift: none NF NE SA EF EE WE WF FF FE FA TA HF PAEZ HE KF KE DF PF R 5 5 5 5 5 5 5 5 5 5 5 4+ 5 5 5 5 5 5 L 5 5 5 5 5 5 5 5 5 5 5 5 5 5 5 5 Sensation: absent sensation in right leg to painful stimuli. Normal RUE LUE RLE LLE Light Touch x absent Pin Prick x absent Temperature x absent Coordination: normal HtS bilaterally. Normal HtS on left, unable to perform on right Gait and Sation: Deferred Reflexes: Right Left Triceps 2 2 Biceps 2 2 Brachioradialis 2 2 Patella 2 2 Ankle 2 2 Plantar down down Lab/Radiology/Other Diagnostic Tests: Pertinent labs reviewed Pertinent radiology reviewed. David-Hermes Siwoski Associated attestation - Jackelny Byrne DO - 03/06/2017 9:04 PM CDT Formatting of this note may be different from the original. ATTESTATION I personally performed the bustamante portions of the E/M visit, discussed case with resident and concur with resident documentation of history, physical exam, assessment, and treatment plan unless otherwise noted. Patient presented to an outside ED after developing acute onset left sided weakness. He was reported to have an initial NIHSS of 15. It was the exact same symptoms as a month prior when he received tPA. During that admission his work up was unremarkable and he had no stroke. It was felt to be a stroke mimic. Due to the exact same presentation, stroke suspicion was low and he was not given IV tPA. He was transferred for advanced imaging. On arrival his NIHSS improved to 2. Symptoms then resolved overnight. CTA head and neck were unremarkable. MRI head without stroke or acute change. Patient further reported almost daily severe headaches that are sometimes associated with mild weakness or facial droop. He presented to the ED only because the weakness was much more severe. We discussed at length stroke mimics including complicated migraines and stress/anxiety related symptoms. Plan to start Topamax and Titrate up to 50 mg BID. Recommend close follow up with his psychiatrist as well. Staff name: Jackelyn ByrneDO Date: 03/06/2017 * Advanced Care Planning/Resuscitation Status - Katerina Minaya - 2016 1:08 AM CDT Advance Care Planning/Resuscitation Status Conversation Individuals present for advance care planning conversation: resident/fellow physician, nurse and patient Pertinent details of conversation (including direct quotes from patient or surrogate): patient would not want chest compressions or intubation to be performed. Outcome of conversation: DNAR - Full Intervention Documents completed as a result of this conversation: None Other documents present, which outline patient/surrogate wishes: None in this encounter Plan of Treatment Not on fileas of this encounter Procedures Procedure Name Priority Date/Time Associated Diagnosis Comments ECG-SCAN 03/14/2017 Results for this 12:20 PM CDT procedure are in the results section. ECG-SCAN 03/14/2017 Results for this 12:19 PM CDT procedure are in the results section. in this encounter Results * ECG-SCAN (03/14/2017 12:20 PM) Narrative Ordered by an unspecified provider. * ECG-SCAN (03/14/2017 12:19 PM) Narrative Ordered by an unspecified provider. * MRI HEAD WO/W CONTRAST (03/06/2017 3:56 AM) Specimen Performing Laboratory [facility] [...] AM. * PHENCYCLIDINES-URINE RANDOM (03/06/2017 1:44 AM) Component Value Ref Range Phencyclidine (PCP) NEG NEG-NEG Comment: RESULTS WERE OBTAINED BY IMMUNOASSAY AND ARE PRESUMPTIVE ONLY. POSITIVE INDICATES THE PRESENCE OF SUBSTANCE WITH CHARACTERISTICS SIMILAR TO DRUG-DRUG CLASS OR METABOLITE IN CONC. EQUAL TO OR EXCEEDING VALUES LISTED. PHENCYCLIDINE (PCP) 25 NG/ML Specimen Performing Laboratory Urine [facility] [address] [place] [id number] * OPIATES-URINE RANDOM (03/06/2017 1:44 AM) Component Value Ref Range Opiates-Urine NEG NEG-NEG Comment: RESULTS WERE OBTAINED BY IMMUNOASSAY AND ARE PRESUMPTIVE ONLY. POSITIVE INDICATES THE PRESENCE OF SUBSTANCE WITH CHARACTERISTICS SIMILAR TO DRUG-DRUG CLASS OR METABOLITE IN CONC. EQUAL TO OR EXCEEDING VALUES LISTED. OPIATES 200 0 NG/ML Specimen Performing Laboratory Urine [facility] [address] [place] [id number] * COCAINE-URINE RANDOM (03/06/2017 1:44 AM) Component Value Ref Range Cocaine-Urine NEG NEG-NEG Comment: RESULTS WERE OBTAINED BY IMMUNOASSAY AND ARE PRESUMPTIVE ONLY. POSITIVE INDICATES THE PRESENCE OF SUBSTANCE WITH CHARACTERISTICS SIMILAR TO DRUG-DRUG CLASS OR METABOLITE IN CONC. EQUAL TO OR EXCEEDING VALUES LISTED. COCAINE 300 NG/ML Specimen Performing Laboratory Urine [facility] [address] [place] [id number] * CANNABINOIDS-URINE RANDOM (03/06/2017 1:44 AM) Component Value Ref Range THC NEG NEG-NEG Comment: RESULTS WERE OBTAINED BY IMMUNOASSAY AND ARE PRESUMPTIVE ONLY. POSITIVE INDICATES THE PRESENCE OF SUBSTANCE WITH CHARACTERISTICS SIMILAR TO DRUG-DRUG CLASS OR METABOLITE IN CONC. EQUAL TO OR EXCEEDING VALUES LISTED. CANNABINOIDS 50 NG/ML Specimen Performing Laboratory Urine [facility] [address] [place] [id number] * BENZODIAZEPINES-URINE RANDOM (03/06/2017 1:44 AM) Component Value Ref Range Benzodiazepines NEG NEG-NEG Comment: RESULTS WERE OBTAINED BY IMMUNOASSAY AND ARE PRESUMPTIVE ONLY. POSITIVE INDICATES THE PRESENCE OF SUBSTANCE WITH CHARACTERISTICS SIMILAR TO DRUG-DRUG CLASS OR METABOLITE IN CONC. EQUAL TO OR EXCEEDING VALUES LISTED. BENZODIAZEPINES 200 NG/ML Specimen Performing Laboratory Urine [facility] [address] [place] [id number] * BARBITURATES-URINE RANDOM (03/06/2017 1:44 AM) Component Value Ref Range Barbiturates,Urine NEG NEG-NEG Comment: RESULTS WERE OBTAINED BY IMMUNOASSAY AND ARE PRESUMPTIVE ONLY. POSITIVE INDICATES THE PRESENCE OF SUBSTANCE WITH CHARACTERISTICS SIMILAR TO DRUG-DRUG CLASS OR METABOLITE IN CONC. EQUAL TO OR EXCEEDING VALUES LISTED. BARBITURATES 200 NG/ML Specimen Performing Laboratory Urine [facility] [address] [place] [id number] * AMPHETAMINES-URINE RANDOM (03/06/2017 1:44 AM) Component Value Ref Range Amphetamines NEG NEG-NEG Comment: RESULTS WERE OBTAINED BY IMMUNOASSAY AND ARE PRESUMPTIVE ONLY. POSITIVE INDICATES THE PRESENCE OF SUBSTANCE WITH CHARACTERISTICS SIMILAR TO DRUG-DRUG CLASS OR METABOLITE IN CONC. EQUAL TO OR EXCEEDING VALUES LISTED. AMPHETAMINES 1000 NG/ML Specimen Performing Laboratory Urine [facility] [address] [place] [id number] * ALCOHOL LEVEL (03/06/2017 1:22 AM) Component Value Ref Range Alcohol <10 MG/DL Specimen Performing Laboratory Blood [facility] [address] [place] [id number] * PHOSPHORUS (03/06/2017 1:22 AM) Component Value Ref Range Phosphorus 3.8 2.0 - 4.0 MG/DL Specimen Performing Laboratory Blood [facility] [address] [place] [id number] * MAGNESIUM (03/06/2017 1:22 AM) Component Value Ref Range Magnesium 1.8 1.6 - 2.6 mg/dL Specimen Performing Laboratory Blood [facility] [address] [place] [address] * COMPREHENSIVE METABOLIC PANEL (03/06/2017 1:22 AM) [...] Specimen Performing Laboratory Blood MAIN [facility] [address] [place] [address] * PROTIME INR (PT) (03/06/2017 1:22 AM) Component Value Ref Range INR 1.0 0.8 - 1.2 Specimen Performing Laboratory [facility] MAIN [facility] [address] [place] [address] * CBC (03/06/2017 1:22 AM) Component Value Ref Range White Blood [...] Specimen Performing Laboratory Blood MAIN [facility] [address] [place] [address] * CT BRAIN PERF (03/06/2017 1:04 AM) Specimen Performing Laboratory [facility] RESULTS [...] stenosis. There is origin of the right DIRECTOR OF COMMUNICATIONS. The anterior, middle, and posterior cerebral arteries [...] stenosis. There is origin of the right DIRECTOR OF COMMUNICATIONS. The anterior, middle, and posterior cerebral arteries [...] NECK WO/W CONTRAST+POST P (03/06/2017 1:04 AM) Specimen Performing Laboratory [facility] RESULTS [...] stenosis. There is origin of the right DIRECTOR OF COMMUNICATIONS. The anterior, middle, and posterior cerebral arteries [...] stenosis. There is origin of the right DIRECTOR OF COMMUNICATIONS. The anterior, middle, and posterior cerebral arteries [...] HEAD WO/W CONTR+POST PRO (03/06/2017 1:04 AM) Specimen Performing Laboratory [facility] RESULTS [...] stenosis. There is origin of the right DIRECTOR OF COMMUNICATIONS. The anterior, middle, and posterior cerebral arteries [...] stenosis. There is origin of the right DIRECTOR OF COMMUNICATIONS. The anterior, middle, and posterior cerebral arteries [...] Jin Palm M.D. on 03/06/2017 1:08 AM. in this encounter Visit Diagnoses Diagnosis Nonintractable headache, unspecified chronicity pattern, unspecified headache type - Primary Weakness Other malaise and fatigue Episode of transient neurologic symptoms Other symptoms involving nervous and musculoskeletal systems in this encounter Admitting Diagnoses Diagnosis stroke like symptoms Ischemic stroke (HCC) in this encounter Administered Medications Medication Order MAR Action Action Date Dose Rate Site acetaminophen (TYLENOL) tablet 650 mg Given 03/06/2017 650 mg 650 mg, Oral, EVERY 4 HOURS PRN, 02:32 CDT Starting 03/06/17 at 0200, Until 03/06/17 at 2113, Pain non-opioid: may be used alone or in combination with opioid analgesia, TOTAL ACETAMINOPHEN DOSE NOT TO EXCEED 4GM DAILY Given 03/06/2017 650 mg 10:02 CDT Given 03/06/2017 650 mg 14:27 CDT amLODIPine (NORVASC) tablet 10 mg Given 03/06/2017 10 mg 10 mg, Oral, DAILY, First dose on Sun 09:55 CDT 03/06/17 at 0900, Until Discontinued, NURSING: Please educate patient and document: Do not give with grapefruit juice. aspirin rectal suppository 300 mg Given 03/06/2017 300 mg 300 mg, Rectal, DAILY, First dose on Sun 09:56 CDT 03/06/17 at 0900, Until Discontinued, If pt received Alteplase, DO NOT give this medication until 24 hours after infusion completed. atorvastatin (LIPITOR) tablet 40 mg Given 03/06/2017 40 mg 40 mg, Oral, DAILY, First dose on Sun 09:55 CDT 03/06/17 at 0900, Until Discontinued buPROPion XL (WELLBUTRIN XL) tablet 300 Given 03/06/2017 300 mg mg 09:55 CDT 300 mg, Oral, DAILY, First dose on 03/06/17 at 0900, Until Discontinued enoxaparin (LOVENOX) syringe 40 mg Given 03/06/2017 40 mg Abdomen:LUQ 40 mg, Subcutaneous, DAILY, First dose 09:55 CDT on 03/06/17 at 0900, Until Discontinued, For patients undergoing surgery: Consult physician in advance -- enoxaparin is an anticoagulant and may need to be held for 12hr prior to surgery or invasive procedures. NOTE: This is a HIGH ALERT Medication. fish oil- omega 3-DHA/EPA capsule 1,000 Given 03/06/2017 1,000 mg mg 09:55 CDT 1,000 mg, Oral, TWICE DAILY, First dose on 03/06/17 at 0900, Until Discontinued gadobenate dimeglumine (MULTIHANCE) Given 03/06/2017 15 mL injection 15 mL 03:50 CDT 15 mL, Intravenous, ONCE, 1 dose, 03/06/17 at 0400, NOTE: This is a HIGH ALERT Medication. iopamidol 370 (ISOVUE-370) injection 100 Given 03/06/2017 100 mL mL 01:15 CDT 100 mL, Intravenous, ONCE, 1 dose, 03/06/17 at 0115, NOTE: This is a HIGH ALERT Medication. isosorbide mononitrate SR (IMDUR) tablet Given 03/06/2017 60 mg 60 mg 09:55 CDT 60 mg, Oral, DAILY, First dose on 03/06/17 at 0900, Until Discontinued, DO NOT Crush tablets losartan (COZAAR) tablet 50 mg Given 03/06/2017 50 mg 50 mg, Oral, DAILY, First dose on Sun 09:55 CDT 03/06/17 at 0900, Until Discontinued prochlorperazine maleate (COMPAZINE) Given 03/06/2017 10 mg tablet 10 mg 02:33 CDT 10 mg, Oral, EVERY 6 HOURS PRN, Starting 03/06/17 at 0200, Until 03/06/17 at 2113, Nausea/Vomiting PO sodium chloride 0.9 % infusion Given - New 03/06/2017 1,000 mL 125 mL /hr 1,000 mL, 1,000 mL, Intravenous, at 125 Bag 02:33 CDT mL/hr, ONCE, 1 dose, 03/06/17 at 0130 sodium chloride PF 0.9% injection 50 mL Given 03/06/2017 50 mL 50 mL, Intravenous, ONCE, 1 dose, Sun 01:15 CDT 03/06/17 at 0115, Intra-procedure (IR) in this encounter
--- OUTSIDE RECORDS SUMMARY | 2017-03-30 10:51 | XMS REPORT | Encounter Summary ---
Author Author [facility] Organization [facility] Address Unknown Phone Unavailable Care Team Providers Care Varnisher Apprentice Name Role Phone PCP Unavailable Encounter Details Date Type Department Care Team Description 03/05/2017 Hospital [facility] Encounter Hospital Radiology [address] [place], [place] [id number] Social History Tobacco Use Types Packs/Day Years [...] for Chest Pain. Max of 3 of [place] artery of tablets, call 911. [place] heart with stable angina pectoris (HCC), Essential [...] then 50mg BID as of this encounter Plan of Treatment Not on fileas of this encounter Results * GENERAL RAD CHEST EXTERNAL IMAGING (03/05/2017) Narrative This order has been auto finalized and does not contain a result. in this encounter Visit Diagnoses Diagnosis Diagnosis unknown Other unknown and unspecified cause of morbidity or mortality in this encounter
--- OUTSIDE RECORDS SUMMARY | 2017-03-30 10:51 | XMS REPORT | Encounter Summary ---
Author Author [facility] Organization [facility] Address Unknown Phone Unavailable Care Team Providers Care Gin Operator Name Role Phone PCP Unavailable Encounter Details Date Type Department Care Team Description 03/05/2017 Hospital [facility] Encounter Hospital Radiology [address] [place], [place] [id number] Social History Tobacco Use Types Packs/Day Years [...] for Chest Pain. Max of 3 of [place] artery of tablets, call 911. [place] heart with stable angina pectoris (HCC), Essential [...]
--- OUTSIDE RECORDS SUMMARY | 2017-03-30 10:52 | XMS REPORT | Encounter Summary ---
Author Author [facility] Organization [facility] Address Unknown Phone Unavailable Care Team Providers Care Shot Coat Tender Name Role Phone PCP Unavailable Encounter Details Date Type Department Care Team Description 01/12/2017 [facility] Neuroscience [facility] E[facility] ICU Julianna Baer, [place] - Encounter [id number] 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 He was initially presented to the [place], [place] ED with chest pain. 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 Your last blood pressure was BP: 164/84, [...] cause. Return Appointment For Neurology scheduling contact [phone] For Neurosurgery appointments call [phone] Questions About Your Stay STANDARD For questions or concerns regarding your hospital stay: -DURING BUSINESS HOURS (8:00 AM - 4:30 PM): Call [phone] and ask to be transferred to your discharge attending physician. -AFTER BUSINESS HOURS (4:30 PM - 8:00 AM, on weekends, or holidays): Call [phone] and ask the felting machine operator to page the on-call doctor for the discharge attending physician. Discharging attending physician: GIRISH TELLEZ [[id number]] Low Fat / Low Cholesterol Diet Your goal is to limit the amount of saturated and trans fats in your diet. Keep track of how much cholesterol you eat and limit the total amount to 200mg ( milligrams) a day. If you have questions about your diet after you go home, you can call a dietitian at [phone]. 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 He was initially presented to the [place], [place] ED with chest pain. He had [...] 5.5 - ECHO unremarkable. Plan: - Resumed FURNACE MECHANIC ASA and Plavix - Started on Simvastatin [...] Counseled to quit drugs - Cleared by PT/OT/[employer]INTER [employer]/Rehab - s/p video swallow, now cleared by speech. Bradycaria - Cardiology consulted and following for bradycardia, . > FURNACE MECHANIC BB held per cardiology HTN > restarted [...] his R side. He reports eating a [email or web address] breakfast sandwich this morning without difficulty. He [...] Left Finger to Nose x Heel to Young x Gait and Sation: WNL Reflexes: Right Left Triceps 2 2 Biceps 2 2 Brachioradialis 2 2 Patella 2 2 Ankle 2 2 Plantar down down Laboratory Review: No results found for: PHART, PCO2A, PO2ART, HCO3A, BASEEXA, BASEDEFA, [id number] Lab Results Component Value Date HGB 12.1 [...] 0.9 01/12/2017 No results found for: TSH, [id number], CORTRAN Lab Results Component Value Date CHOL 231 (H) 01/12/2017 TRIG 216 (H) 01/12/2017 HDL 35 (L) 01/12/2017 LDL 152 (H) 01/12/2017 VLDL 43 01/12/2017 No results found for: VANRAN, VANPK, VANTR No results found for: CYCLOSPOR, TACROLIMUS, FREEPHENY Point of Care Testing: (Last 24 hours): Glucose: (!) 106 Radiology and Other Diagnostics Review: reviewed Sen Monterroso Neurology Resident PGY 2 Pager [phone] * Aye Hall MS,CCC-[employer] - 01/14/2017 11:45 AM CDT SPEECH-LANGUAGE PATHOLOGY NO TREATMENT NOTE Chart reviewed and made contact with RN. Pt tolerating diet and PO meds well with no overt s/s aspiration. Speech, swallow, cognition appear to have returned to baseline. Do not anticipate ongoing [employer] needs. Therapist: Aye Hall MS,CCC-[employer] [phone] Date: 01/14/2017 * Albania Díaz MD - 01/13/2017 2:51 PM CDT Formatting of this note may be different from the original. 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 After 5PM please call costume designer online content developer. Tuesday - Tuesday 8AM-5PM please call Cardiology consult pager. Pt was seen and discussed with Dr. Charlie MD. Albania Díaz MD PGY-1 Internal Medicine Pager [phone] __ Subjective: Kaz Restrepo is a 56 [...] carvedilol. 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 Also possible [...] if we may assist. Catrachito Guerra M.D. 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 male with h/o HTN, HLD, Substance abuse, tobacco use , CAD s/p stents presented with right sided weakness, right facial droop and apahsia. He was initially presented to the [place], [place] ED with chest pain. He had [...] 5.5 - ECHO unremarkable. Plan: - Resumed FURNACE MECHANIC ASA and Plavix - Started on Simvastatin 40 in ICU. - Continue PT/OT/[employer]/Rehab - s/p video swallow - on mechanical [...] Left Finger to Nose x Heel to Young x Gait and Sation: NT Reflexes: Right Left Triceps 2 2 Biceps 2 2 Brachioradialis 2 2 Patella 2 2 Ankle 2 2 Plantar down down Laboratory Review: No results found for: PHART, PCO2A, PO2ART, HCO3A, BASEEXA, BASEDEFA, [id number] Lab Results Component Value Date HGB 12.4 [...] 0.9 01/12/2017 No results found for: TSH, WHVWA0J, CORTRAN Lab Results Component Value Date CHOL 231 (H) 01/12/2017 TRIG 216 (H) 01/12/2017 HDL 35 (L) 01/12/2017 LDL 152 (H) 01/12/2017 VLDL 43 01/12/2017 No results found for: VANRAN, SHERRYPK, VANTR No results found for: CYCLOSPOR, TACROLIMUS, FREEPHENY Point of Care Testing: (Last 24 hours): Glucose: 90 Radiology and Other Diagnostics Review: reviewed Nataliya Barajas MD, MPH Neurology Resident PGY 4 Pager [phone] * Yair Pisano MD - 01/13/2017 11:27 [...] angina (HCC) 08/13/2016 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 Patient examined: yes [...] optimize venous drainage Maintain normothermia, avoid hypoxemia, [place] appropriate osmotherapy ( i.e mannitol vs Hypertonic [...] CAD s/p stenting -asa and clopidogrel, restart FURNACE MECHANIC Imdur and losartan; 5) Chest Pain - [...] at risk for aspiration. Social work and cyanide case hardener for discharge planning and placement. Family Meeting and update: yes. Patient is able to make his or her decisions, family updated during rounds. Goals of therapy: Addressed, Patient is a full code Nurses concerns addressed. Disposition/Family: Transfer to neurology service X Yair G. Norris, MD [place], Department of Neurology and Neurosurgery Pager: [phone] Date: 01/13/2017 X * Mai Pedersen, OT - 01/13/2017 11:13 AM CDT Formatting of this note may be different from the original. 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. Neurologically improved when compared with description [...] Patient Response: Verbalized Understanding Therapist: Aye Hall MS,CCC-[employer] [phone] Date: 01/13/2017 * Zully Castelan APRN-BONDERIZER - 01/13/2017 6:29 AM CDT Formatting of this note may be different from the original. 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) 08/09/2016 07/29/16: heart cath ([address] [place], [place]) - total occlusion of the right [...] Plan: - LDL 152, goal < 70- FURNACE MECHANIC crestor increased to 20mg today - A1C 5.5 - ASA 81 and Plavix 75mg daily- resume today - PT/OT/[employer]/Rehab consulted Cardiac: hx of HTN, CAD, HLD, chest pain, bradycardia Echo 01/12: EF 65%, mild LVH, no shunt/thrombus CTA chest 01/12: negative for PE - cards consulted, appreciate recs - continue holding FURNACE MECHANIC coreg 12.5mg QD - will restart imdur 60mg daily today, consider restarting losartan 50mg daily if needed for BP control - SBP goal: <160 - MAP goal > 65 - crestor daily Respiratory: H/o tobacco abuse - smoking cessation - Stable on room air - Spo2 goal >95% GI: H/O GERD, Dysphagia - Feeding: regular diet - [employer] following- video swallow negative for aspiration, diet [...] radiologic and diagnostic procedures reviewed. Zully Castelan, COFFEE SHOP ATTENDANT-BONDERIZER Date: 01/13/[phone] I spent 45 minutes managing the care [...] Resource RN during scan. * Aye Hall, MS,CCC-[employer] - 01/12/2017 11:11 AM CDT SPEECH-LANGUAGE PATHOLOGY [...] risk of aspirating bacteria in oral secretions [employer] will follow for dysphagia and dysarthria management. [...] free from respiratory status changes. Therapist:Aye Hall MS,CCC-[employer] [phone] Date:01/12/2017 * Marie Monroe, RT - [...] Date: 01/12/2017 [place] AC=Airway clearance AM=Aerosolized medication BA=[place] aerosol DB&C=Deep breathe & cough FEV1=Forced expiratory volume in first second) IC=Inspiratory capacity LE=Lung expansion MDI=Metered dose inhaler Neb=Nebulizer O2=Oxygen Oxim=Oximetry PEFR=Peak expiratory flow rate DRAG SAWYER=Rapid Response Team in this encounter H&P Notes * Yair Pisano MD - 01/12/2017 11:57 AM CDT Formatting of this note may be different from the original. Neurointensivist Critical Care Progress Note Today's Date: 01/12/2017 Name: Kaz Restrepo Admission Date: 01/12/2017 LOS: 0 days ATTESTATION I have seen, personally fully evaluated this patient. Patient exhibits injury of at least one organ system,and there is high probability of imminent or life threatening deterioration in patient's condition , and hence needs continued medical attention including frequent neurological examination, and frequent vital signs. 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 male. Overnight Events: No new events noted, sign out obtained from night shift manager person ( nurse and [facility] physician). Patient examined: yes Objective: I have reviewed the following medications: Scheduled Meds: pantoprazole DR (PROTONIX) tablet 40 mg 40 mg Oral QDAY [START ON 01/13/2017] rosuvastatin (CRESTOR) tablet 20 mg 20 mg Oral QDAY Continuous Infusions: sodium chloride 0.9 % infusion 100 mL/hr at 01/12/17 0830 PRN and Respiratory Meds: Vital Signs: Last Filed Vital Signs: 24 Hour Range BP: 134/72 (01/12 1015) Temp: 36.7 C (98.1 F) (01/12 0800) Pulse: 54 (01/12 1015) Respirations: 19 PER MINUTE (01/12 1015) SpO2: 96 % (01/12 1015) O2 Delivery: None (Room Air) (01/12 1015) Height: 175.3 cm (69") (01/12 854) Weight: 71.2 kg (157 lb) (01/12 854) BP: (108-160)/(67-83) Temp: [36.7 C (98.1 F)] Pulse: [51-58] Respirations: [12 PER MINUTE-21 PER MINUTE] SpO2: [95 %-99 %] O2 Delivery: None (Room Air) Intensity Pain Scale 0-10 (Pain 1): (not recorded) Vitals: 01/12/17 0733 01/12/17 0854 Weight: 71.3 kg (157 lb 3 oz) 71.2 kg (157 lb) Critical Care Vitals: ICP Monitoring: PA Catheter: Hemodynamics/Oxycalcs: Assessment and Plan: Neuro: GCS: E4, M6, V5 FOUR score: E4 M4 BR4 R4 Cranial Nerve Deficit: yes Focal motor neurodeficit: yes Need for Sedation: no E/o Delirium: no Need for restraints: no Seizure prophylaxis: no Steroids: no EVD/Lumbar drain: no Hypertonics: no Plan for management of potential cerebral edema: Avoid Dextrose containing solutions, Maintain Na > 140 mEq/ L, Maintain head of bed elevation at least 30 degrees Keep neck in neutral position to optimize venous drainage Maintain normothermia, avoid hypoxemia, [place] appropriate osmotherapy ( i.e mannitol vs Hypertonic saline) PLAN: 1) Left MCA Stroke - s/p IV tPA, no indication for EVT, MRI-brain today, resume asa 81 mg and clopidogrel 75 mg 24 hours after IV tPA, PT/OT/ST and PMR; 2) drug screen negative at [facility], positive for meth at OSH Cardiac: Blood pressure 134/72, pulse 54, temperature 36.7 C (98.1 F), height 175.3 cm (69"), weight 71.2 kg (157 lb), SpO2 96 %. SBP (transduce arterial line at the [...] EF 65%, mild LVH; 3) HLD - increase Crestor to 20 mg qhs; 4) CAD s/p stenting - resume asa and clopidogrel 24 hours after IV tPA, I informed Dr. Ortiz that he is admitted; 5) Chest Pain - trend troponins Respiratory: Respiratory status: Stable Need for mechanical ventilation: no Lung protective strategies in place Chest physiotherapy, Incentive spirometry, bronchotherapy, Avoid Hypoxemia, maintain SPO2 > 95% Monitor for and maintain normocapnia in absence of intracranial hypertension PLAN: O2 via nasal cannula prn Endocrine: Monitor for and maintain normoglycemia: target BG 100-180 mg/dl, with use of SSI or insulin infusion Fluid and electrolyte status: Monitor for and maintain Na >140, K > 4, Magnesium > 2, Phosphorus > 2 Maintain normovolemia Maintenance iv fluids 0.9 Saline or 2% saline PLAN: NS at 100 cc/hr Heme: Maintain INR < 1.5, Platelet count 80-100 k Maintain Hb > 7 gm% in absence of ongoing cerebral ischemia Infectious Disease: Maintain normothermia, need for surveillance cultures, antibiotics reviewed Medications: reviewed Sepsis surveillance Imaging: CXR/Neuroimaging: reviewed Radiology and Other Diagnostic Procedures Reviewed Lab Review: 24-hour labs: Results for orders placed or performed during the hospital encounter of (from the past 24 hour(s)) HEMOGLOBIN A1C Collection Time: 01/12/17 7:34 AM Result Value Ref Range Hemoglobin A1C 5.5 4.0 - 6.0 % CBC AND DIFF Collection Time: 01/12/17 7:34 AM Result Value Ref Range White Blood Cells 6.4 [...] Basophil Count 0.00 0 - 0.20 K/UL PROTIME INR (PT) Collection Time: 01/12/17 7:34 AM Result Value Ref Range INR 0.9 0.8 - 1.2 TROPONIN-I Collection Time: 01/12/17 7:34 AM Result Value Ref Range Troponin-I 0.01 0.0 - 0.05 NG/ML MAGNESIUM Collection Time: 01/12/17 7:34 AM Result Value Ref Range Magnesium 1.8 1.6 - 2.6 mg/dL PHOSPHORUS Collection Time: 01/12/17 7:34 AM Result Value Ref Range Phosphorus 3.5 2.0 - 4.0 MG/DL IONIZED CALCIUM Collection Time: 01/12/17 7:40 AM Result Value Ref Range Ionized Calcium 1.08 1.0 - 1.3 MMOL/L TROPONIN-I Collection Time: 01/12/17 9:39 AM Result Value Ref Range Troponin-I 0.01 0.0 - 0.05 NG/ML Point of Care Testing: (Last 24 hours): Drains: reviewed Prophylaxis Review: Lines: No Urinary Catheter: No Antibiotic Usage: No VTE: Mechanical prophylaxis; Sequential compression device and start heparin sc 5000 units q8 hours 24 hours from IV tPA PT, OT, evaluation and treatment Diet: Enteral nutrition with PO, Or Corpak access if unable to swallow and is at risk for aspiration. Social work and cyanide case hardener for discharge planning and placement. Family Meeting and update: yes. Patient is able to make his or her decisions, family updated during rounds. Goals of therapy: Addressed, Patient is a full code Nurses concerns addressed. Disposition/Family: Continue ICU care due to # 1 X Yair Pisano MD Binding Printer, Department of Neurology and Neurosurgery Pager: [phone] Date: 01/12/2017 X * Carlene Rodriguez MD - 01/12/2017 8:17 AM CDT Formatting of this note may be different from the original. 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 male HTN, HLD, tobacco use, CAD s/p PCI with GIULIANO to RCA on 08/09/16 who presented s/p tPA for acute onset of right sided weakness and dysphagia. Hospital and ICU course: 01/12: Admitted to ICU, started statin, troponin, ekg, echo Neuro: hx of stroke s/p tPA - Doing well without worsening of signs and symptoms - New new deficits, mental status seems to be improving, continues with right sided weakness - Home crestor increased to 20mg today - Home ASA 81 and Plavix 75mg tomorrow - PT/OT/[employer]/Rehab consulted - f/u on UDS MRI 01/12 IMPRESSION 1. No evidence for [...] Normal CT perfusion. ECHO 01/12: no thrombus Stroke Symptom Onset time: TPA given at: 0315 on 01/12 Initial NIH: 16 NIH post TPA: IR: Yes/No Follow up Imaging: MRI today Ischemic Stroke Risk Factors Risk factor Present? Target Patient at target? Comments 1. Hypertension Yes BP 140 Yes Holding BP meds 2. Diabetes No HBA1C<7 Yes 5.5 3. Dyslipidemia Yes LDL<70, TC/HDL<4 No 4. H/o stroke/TIA No 5. Atrial fibrillation No 6. Tobacco abuse Yes Quit date Anti-platelet treatment with ASA 81 in 24hrs Rehabilitation services involved: OT, PT and ST. Rehabilitation medicine team consulted: Yes - Neuro-ICU monitoring, neurochecks q 1 hrs, parameters for prevention of secondary brain injury (avoid hypotension, hypoxia, fever, hyperglycemia, significant anemia, diagnose and treatment of seizures, electrolyte abnormalities) Sedation/Pain Management: Yes /No - if yes: agents: Propofol / Precedex / Fentanyl - Assess for delirium daily Cardiac: hx of HTN and RCA stents with known existing occlusions - BP have been stable without home meds, will hold for now - Will restart home coreg 12.5mg QD, imdur 60mg QD, losartan 50mg QD as needed or tolerated - SBP goal: <160 - MAP goal > 65 - hyperlipidemia on panel, on statins but states it gives him pain or discomfort - Will give for today and follow up on side effects tomorrow AM ECHO 01/12 Left ventricular systolic function is within normal limits. LVEF 65% Mild concentric left ventricular hypertrophy. No evidence of intracardiac shunt. Aortic valve sclerosis without stenosis. No pericardial effusion. Respiratory: stable - Saturating well on room air - PaO2 goal >100, Spo2 goal >95%, PCO2 goal 35-40 torr, chest physiotherapy, bronchotherapy, PD& V q 6 hrs GI: stable - Feeding: NPO - [employer] consulted to assess for dysphagia - neurosurgery bowel regimen, ensure daily BM Heme: stable - Hgb 13.1, hct 39.5 - assess for coagulopathy, maintain platelets above 100k, INR <1.5 ID: no acute concerns - Tmax afebrile - aim for normothermia, Temp <38.3 celsius, normothermia protocol if febrile Renal: stable, awaiting labs - Cr 1.28, BUN 14 - I/O balance N/A over 24 hrs - Aim for normovolemia Endocrine: - Blood glucose goal 100-180mg/dl FEN: stable - IVF: NS 100 cc/hr - Ca 8.6, - Magnesium goal >2.0, i-Carlos Eduardo goal > 1.0, Potassium goal >4.0 mEq/L Prophylaxis Review: A)GI: No indicated B) Lines: PIVs C) Urinary Catheter: Smith D) Antibiotic Usage: None E) VTE: SCDs F) Isolation: None G)Seizures: None I) Restraints: Patient assessed for need for restraints. Disposition/Family: ICU Primary service: NCC Consults: Rehabilitative Medicine SUBJECTIVE Chief Complaint: Right sided weakness History of Present Illness: Kaz Restrepo is a 56 y.o. male with h/o HTN, HLD, Substance abuse, tobacco use, CAD s/p stents presented with right sided weakness , right facial droop and apahsia. He is from [place]. Earlier today, at 1:20 AM in the morning he developed chest pain. He OSH were had a witnessed acute onset of right-sided weakness right facial droop and aphasia. NIH score was 16. His blood pressure was high at OSH, hydralazine and Cardene was given prior to TPA. TPA was given at 3:15 AM. He had a CTA head and neck which was not very clear. His NIH stroke scale got worse from 16-22. He also had CTA chest at OSH, some concern for collapsed pulmonary vein/artery. UDS was positive for amphetamine at OSH. He got transferred to for evaluation for endovascular intervention. Upon arrival at , he was lethargic and globally aphasic. Found to be more weak in the right leg as compared to the right arm. He was taken for CTA and CTP. He was off the cardene drip. He was not found to be a candidate for an endovascular intervention and therefore was started on acute post stroke management. He states he has non radiating chest pain. He denies headaches, nausea, vomiting , vision changes. He endorses mild numbness and tingling in right extremities. Denies any problems with urination or bowel movments. Denies shortness of breath. 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 Allergies: Pcn [penicillins] Prescriptions Prior to Admission Medication Sig amLODIPine (NORVASC) 10 mg tablet Take 10 mg by mouth daily. aspirin EC 81 mg tablet Take 81 mg by mouth daily. Take with food. baclofen (LIORESAL) 10 mg tablet Take 10 mg by mouth three times daily as needed. BUPROPION HCL (WELLBUTRIN SR PO) Take 150 mg by mouth twice daily. carvedilol (COREG) 12.5 mg tablet Take 6.25 mg by mouth twice daily with meals. Take with food. clopiDOGrel (PLAVIX) 75 mg tablet Take 75 mg by mouth daily. cyclobenzaprine (FLEXERIL) 10 mg tablet Take 10 mg by mouth three times daily as needed for Muscle Cramps.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 stimulation 2=arousable only to painful stimulation 3=reflex responses or unrousable 1 1b. LOC questions-as patients age and month. Must be exact. 0=both correct 1=one correct (or dysarthria, intubated, foreign language) 2=neither correct 2 1c. Commands-open/close eyes, yeast tender and release non-paretic hand (other 1 step [...] face=UMN) 3=complete paralysis (upper and lower face) 2 5. Motor Arm-arms outstretched 90 deg (sitting) or 45 deg (supine) for 10 seconds. Encourage best effort. 0=no drift x 10 seconds 1=drift but doesnt hit bed 2=some antigravity effort, but cant sustain 3=no antigravity effort, but even minimal mvt counts 4=no movement at all X=unable to assess due to amputation, fusion, etc L/R 0/2 6. Motor Leg-raise leg to 30 degrees supine x 5 seconds 0=no drift x 5 seconds 1=drift but doesnt hit bed 2=some antigravity effort, but cant sustain 3=no antigravity effort, but even minimal mvt counts 4=no movement at all X=unable to assess due to amputation, fusion, etc L/R 0/3 7. Limb Ataxia-check finger-nose- finger; heel-young; and [...] global aphasia, coma. No 1 step commands 2 10. Dysarthria-read list of words 0=normal 1=mild-mod; slurred but intelligible 2=severe; unintelligible or mute 1 11. Extinction/Neglect- simultaneously touch patient on both hands, show fingers in both visual belcher, ask about deficit, left hand 0=normal, none detected. (visual loss alone) 1=neglects or extinguishes to double simult stimulation in any modality 2=profound neglect in more than one modality 1 Score 15 Was IV tPA given? No The patient was not a tPA candidate due to tPA was given OSH. Advanced imaging was interpreted at 7.52. The patient was not a thrombectomy candidate due to absence of any large vessel occlusion and normal CTP. Dysphagia screen: Did Patient Pass The Swallow Screen Part I?: No If "No" Name of Physician Notified: Dr. Pisano Performed by nursing staff and passed or Failed screen by nursing staff and awaiting ST evaluation Cardiac rhythm on presentation: NSR. Health History 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 (HCC) 08/09/2016 07/29/16: heart cath ([place], [place]) - total occlusion of the right [...] Not on file Social History Narrative Medications: pantoprazole DR (PROTONIX) tablet 40 mg 40 mg Oral QDAY [START ON 01/13/2017] rosuvastatin (CRESTOR) tablet 20 mg 20 mg Oral QDAY PRN Medications: Physical Exam HEENT: normocephalic, eyes open with no discharge, nares patent, oropharynx is clear with no lesions, palate intact CV: regular rate Chest: normal configuration Ab: soft, non-tender Extended Neuro Exam: Mental status: Lethargic Speech: Global aphasia Normal Abnormal Fluency x Comprehension x Articulation x Repetition x Naming x Cranial Nerves: Normal Abnormal II x III, IV, x V x VII right facial droop VIII x IX, X x XI x XII x Muscle/motor: Tone: nml Bulk: nml RLE - unable to move against gravity RUE - some movements against gravity Sensation: Normal RUE LUE RLE LLE Light Touch x Coordination: Normal Abnormal Right Abnormal Left Finger to Nose x Heel to Young x Gait and Sation: NT Reflexes: Right Left Triceps 2 2 Biceps 2 2 Brachioradialis 2 2 Patella 2 2 Ankle 2 2 Plantar down down Lab/Radiology/Other Diagnostic Tests: 24-hour labs: Results for orders placed or performed during the hospital encounter of (from the past 24 hour(s)) HEMOGLOBIN A1C Collection Time: 01/12/17 7:34 AM Result Value Ref Range Hemoglobin A1C 5.5 4.0 - 6.0 % CBC AND DIFF Collection Time: 01/12/17 7:34 AM Result Value Ref Range White Blood Cells 6.4 [...] Basophil Count 0.00 0 - 0.20 K/UL PROTIME INR (PT) Collection Time: 01/12/17 7:34 AM Result Value Ref Range INR 0.9 0.8 - 1.2 TROPONIN-I Collection Time: 01/12/17 7:34 AM Result Value Ref Range Troponin-I 0.01 0.0 - 0.05 NG/ML MAGNESIUM Collection Time: 01/12/17 7:34 AM Result Value Ref Range Magnesium 1.8 1.6 - 2.6 mg/dL PHOSPHORUS Collection Time: 01/12/17 7:34 AM Result Value Ref Range Phosphorus 3.5 2.0 - 4.0 MG/DL IONIZED CALCIUM Collection Time: 01/12/17 7:40 AM Result Value Ref Range Ionized Calcium 1.08 1.0 - 1.3 MMOL/L TROPONIN-I Collection Time: 01/12/17 9:39 AM Result Value Ref Range Troponin-I 0.01 0.0 - 0.05 NG/ML TROPONIN-I Collection Time: 01/12/17 11:48 AM Result Value Ref Range Troponin-I 0.01 0.0 - 0.05 NG/ML LIPID PROFILE Collection Time: 01/12/17 11:48 AM Result Value Ref Range Cholesterol 231 (H) <200 MG/DL Triglycerides 216 (H) <150 MG/DL HDL 35 (L) >40 MG/DL LDL 152 (H) <100 MG/DL VLDL 43 MG/DL Non HDL Cholesterol 196 MG/DL Pertinent radiology reviewed. Nataliya Barajas MD, MPH Neurology Resident PGY 4 Pager [phone] in this encounter Plan of Treatment Not [...] Performing Laboratory [facility] [address] [place] [address] * BASIC METABOLIC PANEL (01/14/2017 4:40 AM) [...] Performing Laboratory [facility] [address] [place] [address] * SWALLOW MOTION SERIES (01/13/2017 8:48 AM) [...] Specimen Performing Laboratory [facility] [address] [place] [address] * BASIC METABOLIC PANEL (01/13/2017 3:50 AM) [...] Specimen Performing Laboratory [facility] [address] [place] [address] * IONIZED CALCIUM (01/13/2017 3:50 AM) Component Value Ref Range Ionized Calcium 1.09 1.0 - 1.3 MMOL/L Specimen Performing Laboratory [facility] [address] [place] [address] * PHOSPHORUS (01/13/2017 3:50 AM) Component Value Ref Range Phosphorus 3.2 2.0 - 4.0 MG/DL Specimen Performing Laboratory [facility] [address] [place] [address] * MAGNESIUM (01/13/2017 3:50 AM) Component Value Ref Range Magnesium 1.8 1.6 - 2.6 mg/dL Specimen Performing Laboratory [facility] [address] [place] [address] * CTA CHEST WO/W CONTRAST+POST IMPRESSION (01/12/2017 [...] mixing of intravenous contrast. Approved by Zak Barhtolomew M.D. on 01/13/2017 4:20 PM By my [...] 25 NG/ML Specimen Performing Laboratory [facility] [address] [place] [address] * OPIATES-URINE RANDOM (01/12/2017 2:17 PM) Component Value Ref Range Opiates-Urine NEG NEG-NEG Comment: RESULTS WERE OBTAINED BY IMMUNOASSAY AND ARE PRESUMPTIVE ONLY. POSITIVE INDICATES THE PRESENCE OF SUBSTANCE WITH CHARACTERISTICS SIMILAR TO DRUG-DRUG CLASS OR METABOLITE IN CONC. EQUAL TO OR EXCEEDING VALUES LISTED. OPIATES 200 0 NG/ML Specimen Performing Laboratory Urine [facility] [address] [place] [address] * COCAINE-URINE RANDOM (01/12/2017 2:17 PM) Component Value Ref Range Cocaine-Urine NEG NEG-NEG Comment: RESULTS WERE OBTAINED BY IMMUNOASSAY AND ARE PRESUMPTIVE ONLY. POSITIVE INDICATES THE PRESENCE OF SUBSTANCE WITH CHARACTERISTICS SIMILAR TO DRUG-DRUG CLASS OR METABOLITE IN CONC. EQUAL TO OR EXCEEDING VALUES LISTED. COCAINE 300 NG/ML Specimen Performing Laboratory Urine [facility] [address] [place] [address] * CANNABINOIDS-URINE RANDOM (01/12/2017 2:17 PM) Component Value Ref Range THC NEG NEG-NEG Comment: RESULTS WERE OBTAINED BY IMMUNOASSAY AND ARE PRESUMPTIVE ONLY. POSITIVE INDICATES THE PRESENCE OF SUBSTANCE WITH CHARACTERISTICS SIMILAR TO DRUG-DRUG CLASS OR METABOLITE IN CONC. EQUAL TO OR EXCEEDING VALUES LISTED. CANNABINOIDS 50 NG/ML Specimen Performing Laboratory Urine [facility] [address] [place] [address] * BENZODIAZEPINES-URINE RANDOM (01/12/2017 2:17 PM) Component Value Ref Range Benzodiazepines NEG NEG-NEG Comment: RESULTS WERE OBTAINED BY IMMUNOASSAY AND ARE PRESUMPTIVE ONLY. POSITIVE INDICATES THE PRESENCE OF SUBSTANCE WITH CHARACTERISTICS SIMILAR TO DRUG-DRUG CLASS OR METABOLITE IN CONC. EQUAL TO OR EXCEEDING VALUES LISTED. BENZODIAZEPINES 200 NG/ML Specimen Performing Laboratory Urine [facility] [address] [place] [address] * BARBITURATES-URINE RANDOM (01/12/2017 2:17 PM) Component Value Ref Range Barbiturates,Urine NEG NEG-NEG Comment: RESULTS WERE OBTAINED BY IMMUNOASSAY AND ARE PRESUMPTIVE ONLY. POSITIVE INDICATES THE PRESENCE OF SUBSTANCE WITH CHARACTERISTICS SIMILAR TO DRUG-DRUG CLASS OR METABOLITE IN CONC. EQUAL TO OR EXCEEDING VALUES LISTED. BARBITURATES 200 NG/ML Specimen Performing Laboratory [facility] [address] [place] [address] * AMPHETAMINES-URINE RANDOM (01/12/2017 2:17 PM) Component Value Ref Range Amphetamines NEG NEG-NEG Comment: RESULTS WERE OBTAINED BY IMMUNOASSAY AND ARE PRESUMPTIVE ONLY. POSITIVE INDICATES THE PRESENCE OF SUBSTANCE WITH CHARACTERISTICS SIMILAR TO DRUG-DRUG CLASS OR METABOLITE IN CONC. EQUAL TO OR EXCEEDING VALUES LISTED. AMPHETAMINES 1000 NG/ML Specimen Performing Laboratory [facility] [address] [place] [address] * MRI HEAD WO/W CONTRAST (01/12/2017 1:36 [...] MG/DL Specimen Performing Laboratory [facility] [address] [place] [address] * BASIC METABOLIC PANEL (01/12/2017 11:48 AM) [...] for questions. Specimen Performing [facility] [address] [place] [address] * LIPID PROFILE (01/12/2017 11:48 AM) Component [...] mg/dL. Specimen Performing Laboratory [facility] [address] [place] [address] * TROPONIN-I (01/12/2017 11:48 AM) Component Value Ref Range Troponin-I 0.01 0.0 - 0.05 NG/ML Specimen Performing Laboratory [facility] [address] [place] [address] * TROPONIN-I (01/12/2017 9:39 AM) Component Value Ref Range Troponin-I 0.01 0.0 - 0.05 NG/ML Specimen Performing Laboratory [facility] [address] [place] [address] * 2-D + DOPPLER ECHOCARDIOGRAM (01/12/2017 8:54 AM) Component Value Ref Range BSA 1.86 m2 Referring Provider Dexter Hernandes CV ECHO PV CNC WOOD LATHE OPERATOR Floor RN LVIDD 3.3 4.2 - [...] Performing Laboratory [facility] [address] [place] [address] * TROPONIN-I (01/12/2017 7:34 AM) Component Value Ref Range Troponin-I 0.01 0.0 - 0.05 NG/ML Specimen Performing Laboratory [facility] [address] [place] [address] * PHOSPHORUS (01/12/2017 7:34 AM) Component Value Ref Range Phosphorus 3.5 2.0 - 4.0 MG/DL Specimen Performing Laboratory [facility] [address] [place] [address] * MAGNESIUM (01/12/2017 7:34 AM) Component Value Ref Range Magnesium 1.8 1.6 - 2.6 mg/dL Specimen Performing Laboratory [facility] [address] [place] [address] * PROTIME INR (PT) (01/12/2017 7:34 AM) Component Value Ref Range INR 0.9 0.8 - 1.2 Specimen Performing Laboratory [facility] [address] [place], [place] [id number] * CBC AND DIFF (01/12/2017 7:34 AM) [...] K/UL Specimen Performing Laboratory [facility] [address] [place], [place] [id number] * HEMOGLOBIN A1C (01/12/2017 7:34 AM) Component Value Ref Range Hemoglobin A1C 5.5 4.0 - 6.0 % Comment: The ADA recommends that most patients with type 1 and type 2 diabetes maintain an A1c level <7%. Specimen Performing Laboratory [facility] [address] [place] [address] * CT BRAIN PERF (01/12/2017 7:25 AM) [...] stenosis. There is origin of the right KST OPERATOR. The anterior, middle, and posterior cerebral arteries [...] stenosis. There is origin of the right KST OPERATOR. The anterior, middle, and posterior cerebral arteries [...] stenosis. There is origin of the right KST OPERATOR. The anterior, middle, and posterior cerebral arteries [...] stenosis. There is origin of the right KST OPERATOR. The anterior, middle, and posterior cerebral arteries [...] stenosis. There is origin of the right KST OPERATOR. The anterior, middle, and posterior cerebral arteries [...] stenosis. There is origin of the right KST OPERATOR. The anterior, middle, and posterior cerebral arteries [...] specified cardiac dysrhythmias Coronary artery disease of [place] artery of [place] heart with stable angina pectoris (HCC) Essential hypertension Unspecified essential hypertension Mixed hyperlipidemia Tobacco abuse Tobacco use disorder Transient cerebral ischemia, unspecified type GERI (acute kidney injury) (HCC) Acute kidney failure, unspecified Dysphagia, unspecified type History of noncompliance with medical treatment Personal history of noncompliance with medical treatment, presenting hazards to health Coronary artery disease involving [place] coronary artery of [place] heart with angina pectoris (HCC) GERD (gastroesophageal [...] 8 13:50 CDT HOURS, First dose on Tue01/13/17 at 0830, Until Discontinued, NOTE: This is [...] 60 mg, Oral, DAILY, First dose on Tue01/13/17 at 1115, Until Discontinued, DO NOT Crush tablets Given 01/14/2017 60 mg 08:32 CDT ONDANSETRON HCL (PF) 4 MG/2 ML IJ SOLN Given 01/13/2017 4 mg (Cabinet Override) 15:23 CDT NOW, 1 dose, Tue01/13/17 at 1530, Created by [email or web address] toledo pantoprazole DR (PROTONIX) tablet 40 mg [...] CDT CONTINUOUS, Starting Tue01/12/17 at 0745, Until Lucila 01/13/17 at 0952 Dose/Rate Change 01/13/2017 50 mL/hr [...]
--- OUTSIDE RECORDS SUMMARY | 2017-03-30 10:52 | XMS REPORT | Encounter Summary ---
Author Author [facility] Organization [facility] Address Unknown Phone Unavailable Care Team Providers Care Police Or Patrol Park Officer Name Role Phone PCP Unavailable Encounter Details Date Type Department Care Team Description 01/12/2017 [facility] [address] [place] [address] Social History Tobacco Use Types [...]
--- OUTSIDE RECORDS SUMMARY | 2017-03-30 10:53 | XMS REPORT | Encounter Summary ---
Author Author [facility] Organization [facility] Address Unknown Phone Unavailable Care Team Providers Care Staff Consultant Name Role Phone PCP Unavailable Encounter Details Date Type Department Care Team Description 01/12/2017 Hospital [facility] Encounter Hospital Radiology [address] [place], [place] [id number] Social History Tobacco Use Types Packs/Day Years [...] for Chest Pain. Max of 3 of [place] artery of tablets, call 911. [place] heart with stable angina pectoris (HCC), Essential [...]
--- OUTSIDE RECORDS SUMMARY | 2017-03-30 10:53 | XMS REPORT | Encounter Summary ---
Author Author [facility] Organization [facility] Address Unknown Phone Unavailable Care Team Providers Care Chief Building Inspector Name Role Phone PCP Unavailable Encounter Details Date Type Department Care Team Description 01/12/2017 [facility] [address] [facility] [place] [address] Social History Tobacco Use Types [...]
--- OUTSIDE RECORDS SUMMARY | 2017-03-30 10:53 | XMS REPORT | Encounter Summary ---
Author Author [facility] Organization [facility] Address Unknown Phone Unavailable Care Team Providers Care Warehouse Stocker Name Role Phone PCP Unavailable Encounter Details Date Type Department Care Team Description 01/12/2017 Procedure [facility] [address] [place] [address] Social History Tobacco Use Types [...]
--- OUTSIDE RECORDS SUMMARY | 2017-03-30 10:53 | XMS REPORT | Encounter Summary ---
Author Author [facility] Organization [facility] Address Unknown Phone Unavailable Care Team Providers Care Broadcast Chief Engineer Name Role Phone PCP Unavailable Encounter Details Date Type Department Care Team Description 01/12/2017 Hospital [facility] Encounter Hospital Radiology [address] [place], [place] [phone] Social History Tobacco Use Types Packs/Day Years [...] for Chest Pain. Max of 3 of [place] artery of tablets, call 911. [place] heart with stable angina pectoris (HCC), Essential [...]
--- OUTSIDE RECORDS SUMMARY | 2017-03-30 10:53 | XMS REPORT | Encounter Summary ---
Author Author [facility] Organization [facility] Address Unknown Phone Unavailable Care Team Providers Care Target Man Name Role Phone PCP Unavailable Encounter Details Date Type Department Care Team Description 01/12/2017 Procedure [facility] [address] [place] [address] Social History Tobacco Use Types [...]
--- OUTSIDE RECORDS SUMMARY | 2017-03-30 10:53 | XMS REPORT | Encounter Summary ---
Author Author [facility] Organization [facility] Address Unknown Phone Unavailable Care Team Providers Care General Machinist Name Role Phone PCP Unavailable Encounter Details Date Type Department Care Team Description 01/12/2017 Hospital [facility] Encounter Hospital Radiology [address] [place], [place] [id number] Social History Tobacco Use Types Packs/Day Years [...] for Chest Pain. Max of 3 of [place] artery of tablets, call 911. [place] heart with stable angina pectoris (HCC), Essential [...]
--- OUTSIDE RECORDS SUMMARY | 2017-03-30 10:53 | XMS REPORT | Encounter Summary ---
Author Author [facility] Organization [facility] Address Unknown Phone Unavailable Care Team Providers Care Operating Systems Programmer Name Role Phone PCP Unavailable Encounter Details Date Type Department Care Team Description 01/12/2017 Hospital [facility] Encounter Hospital Radiology [address] [place], [place] [id number] Social History Tobacco Use Types Packs/Day Years [...] for Chest Pain. Max of 3 of [place] artery of tablets, call 911. [place] heart with stable angina pectoris (HCC), Essential [...]
--- OUTSIDE RECORDS SUMMARY | 2017-03-30 10:53 | XMS REPORT | Encounter Summary ---
Author Author [facility] Organization [facility] Address Unknown Phone Unavailable Care Team Providers Care Track Rider Name Role Phone PCP Unavailable Encounter Details Date Type Department Care Team Description 01/12/2017 Procedure [facility] [address] [facility] [place] [address] Social History Tobacco Use Types [...]
[2017-03-30] MEDS ORDERED: Apixaban (11:06)
[2017-03-30] MEDS ORDERED: ELQUIS (11:06)
[2017-03-30 11:09] LABS: BASOPHILS % (AUTO) 0 % (0-10); EOSINOPHILS # (AUTO) 0.2 10^3/uL (0.0-0.3); EOSINOPHILS % (AUTO) 4 % (0-10); LYMPHOCYTES # (AUTO) 1.3 X 10^3 (1.0-4.0); LYMPHOCYTES % (AUTO) 23 % (12-44); MEAN CORPUSCULAR HEMOGLOBIN 30 PG (25-34); MEAN CORPUSCULAR HGB CONC 33 G/DL (32-36); MEAN CORPUSCULAR VOLUME 90 FL (80-99); MEAN PLATELET VOLUME 9.6 FL (7.4-10.4); MONOCYTES # (AUTO) 0.7 X 10^3 (0.0-1.0); MONOCYTES % (AUTO) 12 % (0-12); NEUTROPHILS # (AUTO) 3.3 X 10^3 (1.8-7.8); NEUTROPHILS % (AUTO) 60 % (42-75); PLATELET COUNT 271 10^3/uL (130-400); RED BLOOD COUNT 4.12 10^6/uL (4.35-5.85); RED CELL DISTRIBUTION WIDTH 13.3 % (10.0-14.5); WHITE BLOOD COUNT 5.4 10^3/uL (4.3-11.0)
[2017-03-30 11:27] LABS: ALANINE AMINOTRANSFERASE 87 U/L (0-55); ALBUMIN 4.2 GM/DL (3.2-4.5); ANION GAP 8 MMOL/L (5-14); ASPARTATE AMINO TRANSFERASE 72 U/L (5-34); BILIRUBIN,TOTAL 0.3 MG/DL (0.1-1.0); BLOOD UREA NITROGEN 20 MG/DL (7-18); BUN/CREATININE RATIO 17; CALCIUM 9.9 MG/DL (8.5-10.1); CARBON DIOXIDE 29 MMOL/L (21-32); CHLORIDE 103 MMOL/L (98-107); CREATININE SERUM 1.21 MG/DL (0.60-1.30); GFR ESTIMATED > 60; GLUCOSE 96 MG/DL (70-105); POTASSIUM 4.5 MMOL/L (3.6-5.0); SODIUM 140 MMOL/L (135-145); TOTAL PROTEIN 7.8 GM/DL (6.4-8.2)
[2017-03-30] MEDS ORDERED: APIXABAN 5 MG (ELIQUIS) TABLET PO ONE (11:30)
[2017-03-30] MEDS ORDERED: meTOprolol 5 MG/5 ML (LOPRESSOR) VIAL IV ONE ×2 (11:30→13:30)
[2017-03-30] MEDS ORDERED: CLOPIDOGREL 75 MG (PLAVIX) TABLET PO ONE (11:30)
[2017-03-30 11:33] LABS: TROPONIN I < 0.30 NG/ML (<0.30)
--- NOTE | 2017-03-30 12:20 | ED General ---
General Chief Complaint: Chest Pain Stated Complaint: HEADACHE,HIGH BP,CHEST DISCOMFORT Nursing Triage Note: TO ED PER W/C WAS AWAKEN BY CHEST PAIN AT 230AM TODAY. 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 DR SIDHU TO ROOM ON ADMIT. EXAM DONE Nursing Sepsis Screen: No Definite Risk Source of Information: Patient Exam Limitations: No Limitations History of Present Illness Time Seen by Provider: 11:00 Initial Comments White male who presents today with complaints of headache chest pain and weakness on his right side. He has had multiple previous admissions here including subsequent transfer to [facility]. They have given him no clear diagnosis. They have brought up the idea that these recurrent symptoms may be as a function of migraine headaches. The female correspondence analyst states that they gave him Topamax which made him very ill. He is currently not on any migraine prophylaxis. His complaints today include weakness on the right side. He is able to elevate both legs off the bed. Stock Handler on the right seems weak. Timing/Duration: 1-3 Hours Associated Systoms: Chest Pain, Weakness Allergies and Home Medications Allergies Coded Allergies: penicillin G (Verified Allergy, Severe, SWELLING, 12/23/11) Home Medications Amlodipine Besylate 10 Mg Tablet, 10 MG PO DAILY, (Reported) Aspirin 81 Mg Tablet.dr, 81 MG PO DAILY, (Reported) Atorvastatin Calcium 10 Mg Tablet, 10 MG PO HS, #30 Ref 4 Prescribed by: ANDREA ELIAS on 02/03/17 0959 Bupropion HCl 150 Mg Tablet.er, 150 MG PO BID, (Reported) Carvedilol 3.125 Mg Tablet, 3.125 MG PO BID, #60 Ref 4 Prescribed by: ANDREA ELIAS on 02/03/17 0959 Ciprofloxacin HCl 5 Ml Drops, 4 DROPS OT TID, #1 Ref 1 Prescribed by: BILL HUERTA on 02/15/17 1728 Ciprofloxacin HCl 500 Mg Tablet, 500 MG PO BID, #20 Prescribed by: BILL HUERTA on 02/15/17 1728 Clonidine HCl 0.1 Mg Tablet, 0.1 MG PO TID, #90 Ref 4 Prescribed by: ANDREA ELIAS on 02/03/17 0959 Clopidogrel Bisulfate 75 Mg Tablet, 75 MG PO HS, (Reported) Isosorbide Mononitrate 60 Mg Tab, 60 MG PO DAILY, (Reported) Losartan Potassium 50 Mg Tablet, 100 MG PO DAILY, (Reported) Nitroglycerin 0.4 Mg Tab.subl, 0.4 MG SL UD PRN for CHEST PAIN, (Reported) PLACE 1 TAB UNDER TONGUE NEEDED FOR CHEST PAIN; IF PAIN REMAINS AFTER 5 MINUTES, CALL 911 [place]-3 Fatty Acids/Fish Oil 1 Each Capsule, 1,000 MG PO BID, (Reported) Sertraline HCl 50 Mg Tablet, 50 MG PO DAILY, (Reported) Trazodone HCl 100 Mg Tablet, 100 MG PO HS, (Reported) [Apixaban] , (Reported) [Elquis] , (Reported) Constitutional: see HPI EENTM: no symptoms reported Respiratory: short of breath Cardiovascular: chest pain Gastrointestinal: no symptoms reported Genitourinary: no symptoms reported Musculoskeletal: muscle weakness Skin: no symptoms reported Psychiatric/Neurological: Headache, Numbness, Paresthesia, Weakness Hematologic/Lymphatic: No Symptoms Reported Immunological/Allergic: no symptoms reported Past Fdybwcf-Tlwnvr-Ditrsh Hx Patient Social History Alcohol Use: Past History Number of Drinks Today: AA Alcohol Beverage of Choice: Beer Recreational Drug Use: No Smoking Status: Former Smoker Type Used: Cigarettes Former Smoker, Quit: Jan 25, 2017 2nd Hand Smoke Exposure: Yes Recent Foreign Travel: No Contact w/Someone Who Travel: No Recent Infectious Disease Expo: No Recent Hopitalizations: Yes (01/2017 FOR TIA/CHEST PAIN) Immunizations Up To Date Tetanus Booster (TDap): Less than 5yrs PED Vaccines UTD: No Date of Influenza Vaccine: Dec 28, 2014 Seasonal Allergies Seasonal Allergies: No Surgeries History of Surgeries: Yes (hernia) Surgeries: Abdominal, Coronary Stent, Orthopedic Respiratory History of Respiratory Disorde: No Currently Using CPAP: No Currently Using BIPAP: No Cardiovascular History of Cardiac Disorders: Yes (CARDIAC STENTS) Cardiac Disorders: Coronary Artery Disease, Deep Vein Thrombosis, Heart Attack , High Cholesterol, Hypertension Neurological History of Neurological Disord: Yes Neurological Disorders: Stroke, TIA Reproductive System Hx Reproductive Disorders: No Sexually Transmitted Disease: No Genitourinary History of Genitourinary Disor: Yes (recurrent urinary tract infections) Gastrointestinal History of Gastrointestinal Di: Yes Gastrointestinal Disorders: Gastroesophageal Reflux, Hiatal Hernia, Ulcer Musculoskeletal History of Musculoskeletal Dis: No Endocrine History of Endocrine Disorders: No HEENT History of HEENT Disorders: No Loss of Vision: Denies Cancer History of Cancer: No Psychosocial History of Psychiatric Problem: Yes Behavioral Health Disorders: Depression Integumentary History of Skin or Integumenta: No Blood Transfusions History of Blood Disorders: No Adverse Reaction to a Blood Tr: No Family Medical History Significant Family History: Heart Disease, Hypertension Family Medial History: Arthritis 19 MOTHER PIPE CLEANER G8 SISTER FH: COPD (chronic obstructive pulmonary disease) Hypercholesterolemia 19 MOTHER Hypertension 19 MOTHER Physical Exam Vital Signs Vital Sign - Last 12Hours 03/30/17 10:44 Temp 94.5 Pulse 62 Resp 18 B/P (MAP) 203/126 Pulse Ox 95 O2 Delivery Room Air Capillary Refill : Less Than 3 Seconds General Appearance: Mild Distress, Other (appears older than stated age) Eyes: Bilateral Eye Normal Inspection HEENT: Normal ENT Inspection Neck: Full Range of Motion, Normal Inspection, Non Tender, Supple, Carotid Bruit Respiratory: Decreased Breath Sounds (distant) Cardiovascular: Regular Rate, Rhythm, No Edema, No Gallop, No JVD, No Murmur, Normal Peripheral Pulses Gastrointestinal: Normal Bowel Sounds, No Organomegaly, No Pulsatile Mass, Non Tender, Soft Neurologic/Psychiatric: Alert, Oriented x3, license issuer II-XII Norm as Tested Skin: Normal Color, Warm/Dry Comments The patient exhibited apparent weakness in the right upper extremity with a fiscal assistant at one half over 4. The left was 2 over 4 biceps and triceps appeared nearly equal. The patient was able to straight leg lift equally right and left. No facial droop was noted Progress/Results/Core Measures Results/Orders Lab Results Laboratory Tests Test 03/30/17 10:58 03/30/17 11:11 Range/Units White Blood Count 5.4 4.3-11.0 10^3/uL Red Blood Count 4.12 L 4.35-5.85 10^6/uL Hemoglobin 12.4 L 13.3-17.7 G/DL Hematocrit 37 L 40-54 % Mean Corpuscular Volume 90 80-99 FL Mean Corpuscular Hemoglobin 30 25-34 PG Mean Corpuscular Hemoglobin Concent 33 32-36 G/DL Red Cell Distribution Width 13.3 10.0-14.5 % Platelet Count 271 130-400 10^3/uL Mean Platelet Volume 9.6 7.4-10.4 FL Neutrophils (%) (Auto) 60 42-75 % Lymphocytes (%) (Auto) 23 12-44 % Monocytes (%) (Auto) 12 0-12 % Eosinophils (%) (Auto) 4 0-10 % Basophils (%) (Auto) 0 0-10 % Neutrophils # (Auto) 3.3 1.8-7.8 X 10^3 Lymphocytes # (Auto) 1.3 1.0-4.0 X 10^3 Monocytes # (Auto) 0.7 0.0-1.0 X 10^3 Eosinophils # (Auto) 0.2 0.0-0.3 10^3/uL Basophils # (Auto) 0.0 0.0-0.1 10^3/uL Sodium Level 140 135-145 MMOL/L Potassium Level 4.5 3.6-5.0 MMOL/L Chloride Level 103 98-107 MMOL/L Carbon Dioxide Level 29 21-32 MMOL/L Anion Gap 8 5-14 MMOL/L Blood Urea Nitrogen 20 H 7-18 MG/DL Creatinine 1.21 0.60-1.30 MG/DL Estimat Glomerular Filtration Rate > 60 BUN/Creatinine Ratio 17 Glucose Level 96 70-105 MG/DL Calcium Level 9.9 8.5-10.1 MG/DL Total Bilirubin 0.3 0.1-1.0 MG/DL Aspartate Amino Transf (AST/SGOT) 72 H 5-34 U/L Alanine Aminotransferase (ALT/SGPT) 87 H 0-55 U/L Alkaline Phosphatase 171 H 40-136 U/L Troponin I < 0.30 <0.30 NG/ML Total Protein 7.8 6.4-8.2 GM/DL Albumin 4.2 3.2-4.5 GM/DL D-Dimer 0.32 0.00-0.49 UG/ML My Orders Orders - GAYLE SIDHU MD Ekg Tracing (03/30/17 10:43) Cbc With Automated Diff (03/30/17 10:57) Comprehensive Metabolic Panel (03/30/17 10:57) Fibrin Degradation Products (03/30/17 10:57) Troponin I (03/30/17 10:57) Apixaban Tablet (Eliquis Tablet) (03/30/17 11:30) Clopidogrel Tablet (Plavix Tablet) (03/30/17 11:30) Metoprolol Tartrate Injection (Lopressor (03/30/17 11:30) Nitroglycerin Ointment (Nitrobid Ointme (03/30/17 12:45) Nitroglycerin Ointment (Nitrobid Ointme (03/30/17 13:15) Metoprolol Tartrate Injection (Lopressor (03/30/17 13:30) Medications Given in ED Current Medications Medications Dose Ordered Sig/Mckenzie Route Start Time Stop Time Status Last Admin Dose Admin Apixaban 5 mg ONCE ONCE PO 03/30/17 11:30 03/30/17 11:31 DC 03/30/17 11:33 5 MG Clopidogrel Bisulfate 75 mg ONCE ONCE PO 03/30/17 11:30 03/30/17 11:31 DC 03/30/17 11:33 75 MG Metoprolol Tartrate 5 mg ONCE ONCE IV 03/30/17 11:30 03/30/17 11:31 DC 03/30/17 11:33 5 MG Metoprolol Tartrate 5 mg ONCE ONCE IV 03/30/17 13:30 03/30/17 13:31 DC 03/30/17 13:31 5 MG Nitroglycerin 1 inch ONCE ONCE TOP 03/30/17 12:45 03/30/17 12:46 DC 03/30/17 12:49 1 INCH Nitroglycerin 1 inch ONCE ONCE TOP 03/30/17 13:15 03/30/17 13:16 DC 03/30/17 13:10 1 INCH Vital Signs/I&O Vital Sign - Last 12Hours 03/30/17 03/30/17 10:44 13:23 Temp 94.5 Pulse 62 57 Resp 18 18 B/P (MAP) 203/126 189/103 Pulse Ox 95 93 O2 Delivery Room Air Room Air Blood Pressure Mean: 151 Departure Communication (Admissions) Progress Notes The patient remained severely hypertensive. He was given Lopressor 5 mg IV without much change. 1 inch of nitroglycerin ointment was applied with a modest change and a second inch was then added and finally a second dose of Lopressor 5 mg IV overall considerable improvement has been made and the blood pressure. [address] Rabago and the patient will be admitted in observation for treatment of high blood pressure Impression Impression: Primary Impression: migraine headache Additional Impression: accelerated hypertension Disposition: ADMITTED INPATIENT Condition: Improved Admissions Decision to Admit/Date: Mar 30, 2017 Time/Decision to Admit Time: 14:15 Departure-Patient Inst. Referrals: ANDRES RABAGO DO (PCP/Family) Primary Care Physician GAYLE SIDHU MD Mar 30, 2017 12:20
[2017-03-30] MEDS ORDERED: NITROGLYCERIN 2% OINT 1 GM UNIT DOSE PACKET TOP ONE ×2 (12:45→13:15)
[2017-03-30] MEDS ORDERED: NS IV 1000 ML 1,000 ML IV SCH (15:30)
[2017-03-30] MEDS ORDERED: CLON0.1T PO (15:45)
[2017-03-30] MEDS ORDERED: meTOproloL SUCCINATE 50 MG (TOPROL XL) TAB PO NR (15:45)
[2017-03-30] MEDS ORDERED: CARV3.12 PO (15:45)
[2017-03-30] MEDS ORDERED: LOSARTAN 50 MG (COZAAR) TAB PO SCH ×2 (15:45→16:00)
[2017-03-30] MEDS ORDERED: ALPR0.25 PO (15:56)
[2017-03-30] MEDS ORDERED: BUSP15TA60 PO (15:56)
[2017-03-30] MEDS ORDERED: ATOR10TA66 PO (15:56)
[2017-03-30] MEDS ORDERED: TPR25T PO (15:56)
[2017-03-30] MEDS ORDERED: APIX5TAB PO (15:56)
[2017-03-30] MEDS ORDERED: ISOS30TA3 PO (15:56)
[2017-03-30] MEDS ORDERED: INFLUENZA TRIvalent 2017-2018 0.5 ML/45 MCG SYR IM ONE (16:00)
[2017-03-30] MEDS ORDERED: CATHETER FLUSH 10 ML SYR IV PRN (16:00)
[2017-03-30] MEDS: meTOproloL SUCCINATE 50 MG (TOPROL XL) TAB PO SCH (16:02)
[2017-03-30] MEDS ORDERED: RED600CA2 PO (16:23)
[2017-03-30] MEDS ORDERED: RANO10003 PO (16:23)
[2017-03-30] MEDS ORDERED: ALPRAZolam 0.25 MG (XANAX) TAB PO PRN (20:00)
[2017-03-30] MEDS ORDERED: NITROGLYCERIN 0.4 MG SL TABS BTL 25'S SL PRN (20:00)
--- NOTE | 2017-03-30 20:02 | History & Physicial ---
History of Present Illness History of Present Illness Reason for visit/HPI chest pain, headache, malignant hypertension, and chest discomfort. Patient came out to the emergency room and evaluated and admitted for observation area Patient has history of hypertension and coronary artery disease Date of Admission Mar 30, 2017 at 14:23 Time Seen by Provider: 20:00 I consulted on this patient on 03/30/17 19:57 Attending Physician Silver Rabago DO Admitting Physician Silver Rabago DO Consult Allergies and Home Medications Allergies Coded Allergies: penicillin G (Verified Allergy, Severe, SWELLING, 03/30/17) Home Medications Alprazolam 0.25 Mg Tablet, 0.25 MG PO BID PRN for ANXIETY, (Reported) Amlodipine Besylate 10 Mg Tablet, 10 MG PO DAILY, (Reported) Apixaban 5 Mg Tablet, 5 MG PO BID, (Reported) Aspirin 81 Mg Tablet.dr, 81 MG PO HS, (Reported) Atorvastatin Calcium 10 Mg Tablet, 10 MG PO HS, (Reported) Bupropion HCl 150 Mg Tablet.er, 150 MG PO BID, (Reported) Buspirone HCl 15 Mg Tablet, 15 MG PO TID, (Reported) Carvedilol 3.125 Mg Tablet, 3.125 MG PO BID, (Reported) Clonidine HCl 0.1 Mg Tablet, 0.1 MG PO TID, (Reported) Clopidogrel Bisulfate 75 Mg Tablet, 75 MG PO HS, (Reported) Isosorbide Mononitrate 30 Mg Tab.er.24h, 30 MG PO DAILY, (Reported) Losartan Potassium 50 Mg Tablet, 50 MG PO BID, (Reported) LAST FILLED #90 01-16-17 Nitroglycerin 0.4 Mg Tab.subl, 0.4 MG SL UD PRN for CHEST PAIN, (Reported) PLACE 1 TAB UNDER TONGUE NEEDED FOR CHEST PAIN; IF PAIN REMAINS AFTER 5 MINUTES, CALL 911 [place]-3 Fatty Acids/Fish Oil 1 Each Capsule, 1,000 MG PO BID, (Reported) Ranolazine 1,000 Mg Tab.er.12h, 500 MG PO BID, (Reported) TAKES 1/2 (1000MG) TABLET Red Yeast Rice 600 Mg Capsule, 3 CAP PO HS, (Reported) Sertraline HCl 50 Mg Tablet, 50 MG PO DAILY, (Reported) Topiramate 25 Mg Tablet, 25 MG PO BID, (Reported) Trazodone HCl 100 Mg Tablet, 100 MG PO HS, (Reported) Past Oiowhkf-Izcvku-Jkpusj Hx Patient Social History Alcohol Use: Past History Number of Drinks Today: AA Alcohol Beverage of Choice: Beer Recreational Drug Use: No Smoking Status: Former Smoker Former Smoker, Quit: Jan 25, 2017 Type Used: Cigarettes 2nd Hand Smoke Exposure: Yes Physical Abuse Screen: No Sexual Abuse: No Recent Foreign Travel: No Contact w/other who traveled: No Recent Hopitalizations: Yes (01/2017 FOR TIA/CHEST PAIN) Recent Infectious Disease Expo: No Immunizations Up To Date Tetanus Booster (TDap): Less than 5yrs Pediatric: No Date of Influenza Vaccine: Dec 28, 2014 Seasonal Allergies Seasonal Allergies: No Surgeries Yes (hernia) Abdominal, Coronary Stent, Orthopedic Respiratory No Currently Using CPAP: No Currently Using BIPAP: No Cardiovascular Yes (CARDIAC STENTS) Coronary Artery Disease, Deep Vein Thrombosis, Heart Attack, High Cholesterol, Hypertension Neurological Yes Stroke, TIA Reproductive System Hx Reproductive Disorders: No Sexually Transmitted Disease: No Genitourinary Yes (recurrent urinary tract infections) Gastrointestinal Yes Gastroesophageal Reflux, Hiatal Hernia, Ulcer Musculoskeletal No Endocrine History of Endocrine Disorders: No HEENT History of HEENT Disorders: No Loss of Vision: Denies Cancer No Psychosocial History of Psychiatric Problem: Yes Behavioral Health Disorders: Depression Integumentary History of Skin or Integumenta: No Blood Transfusions History of Blood Disorders: No Adverse Reaction to a Blood Tr: No Family Medical History Significant Family History: Heart Disease, Hypertension Family Hx: Arthritis 19 MOTHER INVESTIGATION DIVISION SERGEANT G8 SISTER FH: COPD (chronic obstructive pulmonary disease) Hypercholesterolemia 19 MOTHER Hypertension 19 MOTHER Constitutional: other (chest discomfort) EENTM: no symptoms reported Respiratory: no symptoms reported Cardiovascular: chest pain, other (hypertension) Gastrointestinal: no symptoms reported Genitourinary: no symptoms reported Skin: no symptoms reported Physical Exam Vital Signs Vital Sign - Last 12Hours 03/30/17 10:44 Temp 94.5 Pulse 62 Resp 18 B/P (MAP) 203/126 Pulse Ox 95 O2 Delivery Room Air Capillary Refill : Less Than 3 Seconds General Appearance: No Apparent Distress, WD/WN Eyes: Bilateral Eye Normal Inspection HEENT: Normal ENT Inspection Neck: Full Range of Motion, Normal Inspection Respiratory: Chest Non Tender, Lungs Clear, Normal Breath Sounds, No Accessory Muscle Use, No Respiratory Distress Cardiovascular: Regular Rate, Rhythm, No Murmur Gastrointestinal: Non Tender, Soft Assessment/Plan Assessment and Plan chest pain. Malignant hypertension. Migraine. Coronary artery disease. Previous heart attack. Hyperlipidemia Problems: Clinical Quality Measures AMI/AHF: ASA po Prior to arrival: No DVT/VTE Risk/Contraindication: Risk Factor Score Per Nursin RFS Level Per Nursing on Admit: 1=Low/No VTE PPX Contraindications-Pharm: Other *list below* SILVER RABAGO DO Mar 30, 2017 20:02
[2017-03-30] MEDS: LOSARTAN 50 MG (COZAAR) TAB PO SCH (20:58)
[2017-03-30] MEDS: busPIRone 15 MG (BUSPAR) TABLET PO SCH (20:58)
[2017-03-30] MEDS: ATORVASTATIN 10 MG (LIPITOR) TABLET PO SCH (20:59)
[2017-03-30] MEDS: CLOPIDOGREL 75 MG (PLAVIX) TABLET PO SCH (21:00)
[2017-03-30] MEDS ORDERED: toPIRamate 25 MG (TOPAMAX) TAB PO SCH (21:00)
[2017-03-30] MEDS: cloNIDine 0.1 MG (CATAPRES) TAB PO SCH (21:00)
[2017-03-30] MEDS: APIXABAN 5 MG (ELIQUIS) TABLET PO SCH (21:00)
[2017-03-30] MEDS: CARVEDILOL 3.125 MG (COREG) TABLET PO SCH (21:01)
[2017-03-30] MEDS: ASPIRIN E.C. 81 MG (ECOTRIN) TAB PO SCH (21:01)
[2017-03-30] MEDS: traZODone 100 MG (DESYREL) TAB PO SCH (21:01)
[2017-03-31] VITALS (7 sets, daily range): BP systolic 113–170; BP diastolic 62–86
[2017-03-31] MEDS: buPROPion SR 150 MG (WELLBUTRIN SR) TAB PO SCH ×2 (06:25→17:11)
[2017-03-31 06:29] LABS: MEAN PLATELET VOLUME 9.9 FL (7.4-10.4); RED BLOOD COUNT 3.98 10^6/uL (4.35-5.85); RED CELL DISTRIBUTION WIDTH 13.3 % (10.0-14.5); WHITE BLOOD COUNT 4.4 10^3/uL (4.3-11.0)
[2017-03-31 06:54] LABS: ANION GAP 10 MMOL/L (5-14); BLOOD UREA NITROGEN 20 MG/DL (7-18); BUN/CREATININE RATIO 17; CALCIUM 9.3 MG/DL (8.5-10.1); CARBON DIOXIDE 24 MMOL/L (21-32); CHLORIDE 104 MMOL/L (98-107); CREATININE SERUM 1.18 MG/DL (0.60-1.30); GFR ESTIMATED > 60; GLUCOSE 103 MG/DL (70-105); POTASSIUM 4.1 MMOL/L (3.6-5.0); SODIUM 138 MMOL/L (135-145)
--- NOTE | 2017-03-31 07:54 | Progress Note (SOAP) ---
Subjective Time Seen by Provider: 07:47 Subjective/Events-last exam patient feeling 50 percent better today. Patient's blood pressure better this morning. Patient still having chest discomfort rated as a 6. Patient improving Objective Exam Vital Signs Date Time Temp Pulse Resp B/P (MAP) Pulse Ox O2 Delivery O2 Flow Rate FiO2 03/31/17 04:34 97.8 58 16 122/62 95 Room Air 03/31/17 00:24 98.2 61 18 142/83 95 Room Air 03/30/17 20:13 98.5 55 21 172/86 96 Room Air 03/30/17 20:00 Room Air 03/30/17 18:48 54 18 139/81 95 Room Air 03/30/17 16:55 105/73 03/30/17 16:29 97.7 57 20 161/82 94 Room Air 03/30/17 15:37 161/82 03/30/17 14:49 97.9 55 20 175/101 97 Room Air 03/30/17 14:49 Room Air 03/30/17 14:39 57 18 96 Room Air 03/30/17 13:23 57 18 189/103 93 Room Air 03/30/17 10:44 94.5 62 18 203/126 95 Room Air Capillary Refill : Less Than 3 Seconds General Appearance: No Apparent Distress, WD/WN HEENT: Normal ENT Inspection Neck: Full Range of Motion, Normal Inspection Respiratory: No Accessory Muscle Use, No Respiratory Distress Cardiovascular: Regular Rate, Rhythm, No Murmur Gastrointestinal: non tender, soft Results Lab Laboratory Tests 03/30/17 10:58 03/31/17 05:57 Laboratory Tests 03/30/17 10:58: White Blood Count 5.4, Red Blood Count 4.12L, Hemoglobin 12.4L, Hematocrit 37L, Mean Corpuscular Volume 90, Mean Corpuscular Hemoglobin 30, Mean Corpuscular Hemoglobin Concent 33, Red Cell Distribution Width 13.3, Platelet Count 271, Mean Platelet Volume 9.6, Neutrophils (%) (Auto) 60, Lymphocytes (%) (Auto) 23, Monocytes (%) (Auto) 12, Eosinophils (%) (Auto) 4, Basophils (%) (Auto) 0, Neutrophils # (Auto) 3.3, Lymphocytes # (Auto) 1.3, Monocytes # (Auto) 0.7, Eosinophils # (Auto) 0.2, Basophils # (Auto) 0.0, Sodium Level 140, Potassium Level 4.5, Chloride Level 103, Carbon Dioxide Level 29, Anion Gap 8, Blood Urea Nitrogen 20H, Creatinine 1.21, Estimat Glomerular Filtration Rate > 60, BUN/ Creatinine Ratio 17, Glucose Level 96, Calcium Level 9.9, Total Bilirubin 0.3, Aspartate Amino Transf (AST/SGOT) 72H, Alanine Aminotransferase (ALT/SGPT) 87H, Alkaline Phosphatase 171H, Troponin I < 0.30, Total Protein 7.8, Albumin 4.2 03/30/17 11:11: D-Dimer 0.32 03/31/17 05:57: White Blood Count 4.4, Red Blood Count 3.98L, Hemoglobin 11.9L, Hematocrit 36L, Mean Corpuscular Volume 91, Mean Corpuscular Hemoglobin 30, Mean Corpuscular Hemoglobin Concent 33, Red Cell Distribution Width 13.3, Platelet Count 259, Mean Platelet Volume 9.9, Sodium Level 138, Potassium Level 4.1, Chloride Level 104, Carbon Dioxide Level 24, Anion Gap 10, Blood Urea Nitrogen 20H, Creatinine 1.18, Estimat Glomerular Filtration Rate > 60, BUN/Creatinine Ratio 17, Glucose Level 103, Calcium Level 9.3 Assessment/Plan Assessment/Plan Assess & Plan/Chief Complaint malignant hypertension. Chest discomfort. Exposure to lead. Coronary artery disease. History of myocardial infarction Clinical Quality Measures AMI/AHF: ASA po Prior to arrival: No DVT/VTE Risk/Contraindication: Risk Factor Score Per Nursin RFS Level Per Nursing on Admit: 1=Low/No VTE PPX Contraindications-Pharm: Other *list below* ANDRES RABAGO DO Mar 31, 2017 07:54
[2017-03-31 08:13] LABS: ALANINE AMINOTRANSFERASE 73 U/L (0-55); ALBUMIN 3.7 GM/DL (3.2-4.5); ASPARTATE AMINO TRANSFERASE 37 U/L (5-34); BILIRUBIN,DIRECT < 0.1 MG/DL (0.0-0.3); BILIRUBIN,INDIRECT 0.1 MG/DL; BILIRUBIN,TOTAL 0.2 MG/DL (0.1-1.0)
[2017-03-31 08:19] LABS: TROPONIN I < 0.30 NG/ML (<0.30)
[2017-03-31] MEDS: SERTRALINE 50 MG (ZOLOFT) TABLET PO SCH (08:36)
[2017-03-31] MEDS: CARVEDILOL 3.125 MG (COREG) TABLET PO SCH ×2 (08:36→21:10)
[2017-03-31] MEDS: cloNIDine 0.1 MG (CATAPRES) TAB PO SCH ×3 (08:36→21:10)
[2017-03-31] MEDS: meTOproloL SUCCINATE 50 MG (TOPROL XL) TAB PO SCH (08:36)
[2017-03-31] MEDS: APIXABAN 5 MG (ELIQUIS) TABLET PO SCH ×2 (08:37→21:08)
[2017-03-31] MEDS: amLODIPine 10 MG (NORVASC) TAB PO SCH (08:37)
[2017-03-31] MEDS: busPIRone 15 MG (BUSPAR) TABLET PO SCH ×3 (08:37→21:10)
[2017-03-31] MEDS: LOSARTAN 50 MG (COZAAR) TAB PO SCH ×2 (08:37→21:09)
[2017-03-31] MEDS: ISOSORBIDE MONONITRATE 30 MG (IMDUR) TAB PO SCH (08:37)
--- NOTE | 2017-03-31 08:54 | Consultation-Cardiology ---
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 Presented to the ER with complaints of elevated blood pressure, headache and chest pain. Reports CP continues to be ongoing since seeing him in our office last in January. Was being evaluated for migraine PAEZ at , placed on Topamax, however he discontinued the medication secondary to side effects. Currently rates CP 09/27. Denies any dizziness, dyspnea or peripheral edema. States he is compliant with his medications at home. Home Medications & Allergies Allergies: Coded Allergies: penicillin G (Verified Allergy, Severe, SWELLING, 03/30/17) Home Medication List Reviewed: Yes UOA-Caoixq-Pcehqb Hx Patient Social History Alcohol Use: Past History Recreational Drug Use: No Smoking Status: Former Smoker Type Used: Cigarettes 2nd Hand Smoke Exposure: Yes Recent Foreign Travel: No Recent Infectious Disease Expo: No Recent Hopitalizations: Yes (01/2017 FOR TIA/CHEST PAIN) Physical Abuse Screen: No Sexual Abuse: No Immunizations Up To Date Tetanus Booster (TDap): Less than 5yrs Date of Influenza Vaccine: Dec 28, 2014 Past Medical History CAD, HTN, HLP, migraine PAEZ Family Medical History Significant Family History: Heart Disease, Hypertension Family History: Arthritis 19 MOTHER FURNITURE REPA[employer] TECHNICIAN G8 SISTER FH: COPD (chronic obstructive pulmonary disease) Hypercholesterolemia 19 MOTHER Hypertension 19 MOTHER Constitutional: No diaphoresis, No dizziness, No fever, malaise EENTM: other (headache), No hearing loss, No blurred vision, No double vision Respiratory: No cough, No dyspnea on exertion Cardiovascular: chest pain, No edema, Hx of Intervention, No palpitations, No syncope, vascular heart diseas Gastrointestinal: No abdominal pain, No constipation, No diarrhea Genitourinary: No decreased output, No frequency, No hematuria Musculoskeletal: No back pain Skin: No lesions, No rash Psychiatric/Neurological: Anxiety, Headache Reviewed Test Results Reviewed Test Results Lab Laboratory Tests 03/31/17 05:57: White Blood Count 4.4, Red Blood Count 3.98L, Hemoglobin 11.9L, Hematocrit 36L, Mean Corpuscular Volume 91, Mean Corpuscular Hemoglobin 30, Mean Corpuscular Hemoglobin Concent 33, Red Cell Distribution Width 13.3, Platelet Count 259, Mean Platelet Volume 9.9, Sodium Level 138, Potassium Level 4.1, Chloride Level 104, Carbon Dioxide Level 24, Anion Gap 10, Blood Urea Nitrogen 20H, Creatinine 1.18, Estimat Glomerular Filtration Rate > 60, BUN/Creatinine Ratio 17, Glucose Level 103, Calcium Level 9.3, Total Bilirubin 0.2, Direct Bilirubin < 0.1, Indirect Bilirubin 0.1, Aspartate Amino Transf (AST/SGOT) 37H, Alanine Aminotransferase (ALT/SGPT) 73H, Alkaline Phosphatase 138H, Troponin I < 0.30, Total Protein 7.0, Albumin 3.7 ECG Impression ECG Initial ECG Rhythm: Normal Sinus Physical Exam Vital Signs Vital Sign - Last 12Hours 03/30/17 10:44 Temp 94.5 Pulse 62 Resp 18 B/P (MAP) 203/126 Pulse Ox 95 O2 Delivery Room Air Capillary Refill : Less Than 3 Seconds General Appearance: No Apparent Distress, WD/WN HEENT: Normal ENT Inspection, Pharynx Normal Neck: Non Tender, Supple Respiratory: Chest Non Tender, Lungs Clear, No Accessory Muscle Use, No Respiratory Distress Cardiovascular: Regular Rate, Rhythm, No Edema, No Gallop, No JVD, No Murmur, Normal Peripheral Pulses Gastrointestinal: Non Tender, Soft Rectal: Deferred Back: No CVA Tenderness Extremity: Non Tender, No Calf Tenderness Neurologic/Psychiatric: Alert, Oriented x3, occupational health rn II-XII Norm as Tested Skin: Normal Color, Warm/Dry A/P-Cardiology Admission Diagnosis Chest pain resembling angina Coronary artery disease Hypertension Hyperlipidemia Assessment/Plan Chest pain, chronic stable angina, still having recurrent pain on and off. Cardiac enzymes and EKG did not show any abnormality. Continue with medical therapy at this time. Generalized body ache, lower extremity pain, upper extremity pain, headache, back pain and neck pain. General fatigue and loss of energy. Depression. History of Transient ischemic attack, recent CVA occurred last week. Source is unknown, patient was started on Eliquis on the last admission process patient of cardiac thrombus, the last echo that was done in July 2016 showed questionable healed vegetation on the aortic cusp with moderate aortic regurgitation, it could be the source of his recurrent CVA/TIA, The use of Eliquis will increase the risk of bleeding, he does not have any documented atrial fibrillation in the past. carotid ultrasound was reported to have heavy atherosclerotic plaques but no obstructive disease, MRI did not show any acute abnormality. PETER showed echogenic density on the left aortic cusp most probably aortic valve sclerosis, unlikely to be healed vegetation. Measuring 0.80.7 centimeters, the valve is functioning normally, LV is normal. I will discontinue Eliquis and continue on aspirin and Plavix Coronary artery disease, cardiac catheterization carried out July 27, 2016 revealed total occlusion of right coronary artery, severe stenosis at the proper circumflex artery, ostial circumflex stenosis, LAD had moderate disease. IVUS showed 60 percent stenosis, underwent stenting to the right coronary artery with excellent results. Patient underwent multiple cardiac catheterizations in the month of July due to his ongoing chest pain. Most recent cardiac catheterization carried out by Dr. Ortiz on August 14, 2016 revealed widely patent stented portion of the RCA which was completely occluded before. 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 Recommended conservative management for the area rather than ballooning it, probably it will thrombose without affecting the stent. Distal circumflex artery with 90 percent stenosis, small vessel supplying very small amount of myocardium. Patient's discomfort is incessant, unchanged after the PCI of the RCA. educated about compliance with medication, I will arrange for evaluation at [facility] Echocardiogram showed normal LV function, PETER showed echogenic density on the left aortic cusp, valve is functioning normally, unlikely to be the source of his stroke. Hypertension, labile blood pressure, educated about compliance with medications. Continue to monitor Hyperlipidemia, continue on statin and monitor Claudication pain-complains of claudication pain to bilateral lower extremity at distances of 2-3 blocks. Denies any rest pain, ulceration, or gangrene, Normal LOLIS Headache-complains of intermittent headache over the past several months. No change after blood pressure is better controlled. Recommend follow-up with primary care physician. History of elevated LFTs-continue to monitor. GERD with history of gastritis, continue on Protonix Tobaccoism-patient was once again educated on importance of smoking cessation. 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
[2017-03-31] MEDS ORDERED: ACETAMINOPHEN 500 MG TAB (TYLENOL) PO PRN (09:00)
[2017-03-31] MEDS ORDERED: CALCIUM CARBONATE 500 MG (TUMS) TAB.CHEW PO PRN (14:45)
[2017-03-31] MEDS: traZODone 100 MG (DESYREL) TAB PO SCH (21:08)
[2017-03-31] MEDS: ASPIRIN E.C. 81 MG (ECOTRIN) TAB PO SCH (21:09)
[2017-03-31] MEDS: CLOPIDOGREL 75 MG (PLAVIX) TABLET PO SCH (21:10)
[2017-03-31] MEDS: ATORVASTATIN 10 MG (LIPITOR) TABLET PO SCH (21:10)
[2017-04-01 04:00] VITALS: BP 113/73
[2017-04-01 06:02] LABS: MEAN PLATELET VOLUME 9.8 FL (7.4-10.4); RED BLOOD COUNT 3.82 10^6/uL (4.35-5.85); RED CELL DISTRIBUTION WIDTH 13.3 % (10.0-14.5); WHITE BLOOD COUNT 5.4 10^3/uL (4.3-11.0)
[2017-04-01] MEDS: buPROPion SR 150 MG (WELLBUTRIN SR) TAB PO SCH (06:36)
[2017-04-01 06:44] LABS: ALANINE AMINOTRANSFERASE 60 U/L (0-55); ALBUMIN 3.3 GM/DL (3.2-4.5); ANION GAP 10 MMOL/L (5-14); ASPARTATE AMINO TRANSFERASE 32 U/L (5-34); BILIRUBIN,TOTAL 0.2 MG/DL (0.1-1.0); BLOOD UREA NITROGEN 21 MG/DL (7-18); BUN/CREATININE RATIO 21; CARBON DIOXIDE 19 MMOL/L (21-32); CHLORIDE 109 MMOL/L (98-107); CREATININE SERUM 0.99 MG/DL (0.60-1.30); GFR ESTIMATED > 60; GLUCOSE 105 MG/DL (70-105); POTASSIUM 4.2 MMOL/L (3.6-5.0); SODIUM 138 MMOL/L (135-145); TOTAL PROTEIN 6.3 GM/DL (6.4-8.2)
[2017-04-01] MEDS ORDERED: PANTOPRAZOLE 40 MG (PROTONIX) TAB PO SCH (07:00)
--- NOTE | 2017-04-01 07:45 | Progress Note (SOAP) ---
Subjective Time Seen by Provider: 07:40 Subjective/Events-last exam patient feeling better this morning. Patient not having any chest pain. Patient yesterday had an anxiety chest pain relieved with Xanax. Chest pain. Coronary artery disease.. Hypertension malignant. Hyperlipidemia. History of previous meth abuse Objective Exam Vital Signs Date Time Temp Pulse Resp B/P (MAP) Pulse Ox O2 Delivery O2 Flow Rate FiO2 04/01/17 04:00 96.6 56 18 113/73 96 Room Air 03/31/17 23:15 98.2 57 14 113/73 93 Room Air 03/31/17 20:05 Room Air 03/31/17 20:00 97.8 58 21 170/86 97 Room Air 03/31/17 16:00 98.4 48 20 132/71 94 Room Air 03/31/17 12:00 98.5 63 20 128/67 93 Room Air 03/31/17 08:00 98.3 55 20 134/69 97 Room Air 03/31/17 08:00 Room Air Capillary Refill : Less Than 3 Seconds General Appearance: No Apparent Distress, Thin HEENT: Normal ENT Inspection Neck: Full Range of Motion Respiratory: Chest Non Tender, Lungs Clear, Normal Breath Sounds, No Accessory Muscle Use Cardiovascular: Regular Rate, Rhythm Gastrointestinal: non tender, soft Results Lab Laboratory Tests 04/01/17 05:55 Laboratory Tests 04/01/17 05:55: White Blood Count 5.4, Red Blood Count 3.82L, Hemoglobin 11.5L, Hematocrit 35L, Mean Corpuscular Volume 91, Mean Corpuscular Hemoglobin 30, Mean Corpuscular Hemoglobin Concent 33, Red Cell Distribution Width 13.3, Platelet Count 243, Mean Platelet Volume 9.8, Sodium Level 138, Potassium Level 4.2, Chloride Level 109H, Carbon Dioxide Level 19L, Anion Gap 10, Blood Urea Nitrogen 21H, Creatinine 0.99, Estimat Glomerular Filtration Rate > 60, BUN/Creatinine Ratio 21, Glucose Level 105, Calcium Level 8.0L, Total Bilirubin 0.2, Aspartate Amino Transf (AST/SGOT) 32, Alanine Aminotransferase (ALT/SGPT) 60H, Alkaline Phosphatase 133, Total Protein 6.3L, Albumin 3.3 Assessment/Plan Assessment/Plan Assess & Plan/Chief Complaint malignant hypertension. Chest discomfort. Exposure to lead. Coronary artery disease. History of myocardial infarction. . 04/01/17. Chest pain. Angina. Malignant hypertension. Patient feeling better today. Okay with me if okay with cardiology for discharge today. Anxiety. Previous history of meth abuse. Clinical Quality Measures AMI/AHF: ASA po Prior to arrival: No DVT/VTE Risk/Contraindication: Risk Factor Score Per Nursin RFS Level Per Nursing on Admit: 1=Low/No VTE PPX Contraindications-Pharm: Other *list below* ANDRES RABAGO DO Apr 01, 2017 07:45
[2017-04-01 08:00] VITALS: BP 132/73
[2017-04-01] MEDS: APIXABAN 5 MG (ELIQUIS) TABLET PO SCH (08:26)
--- NOTE | 2017-04-01 08:29 | Cardiology Progress Note ---
Subjective Date Seen by Provider: Apr 01, 2017 Time Seen by Provider: 08:26 Subjective/Events-last exam patient is laying down in bed, feeling better today, no further episodes of chest pain. No palpitation. Headache is subsiding. Review of Systems General: No Chills, No Night Sweats, No Fatigue, No Malaise, No Appetite, No Other HEENT: No Head Aches, No Visual Changes, No Eye Pain, No Ear Pain, No Dysphasia , No Sinus Congestion, No Post Nasal Drip, No Sore Throat, No Other Pulmonary: No Dyspnea, No Cough, No Pleuritic Chest Pain, No Other Cardiovascular: Chest Pain, No: Palpitations, Orthopnea, Paroxysmal Noc. Dyspnea, Edema, Lt Headedness, Other Objective-Cardiology Exam Last Set of Vital Signs Vital Signs 04/01/17 04:00 Temp 96.6 Pulse 56 Resp 18 B/P (MAP) 113/73 Pulse Ox 96 O2 Delivery Room Air Capillary Refill : Less Than 3 Seconds I&O Intake and Output 04/01/17 23:59 Intake Total 520 ml Balance 520 ml Intake Oral 520 ml # Voids 2 General: Alert, Oriented X3, Cooperative HEENT: Atraumatic, PERRLA Neck: Supple, No JVD, No Thyromegaly Lungs: Clear to Auscultation, Normal Air Movement Heart: Regular Rate, Normal S1, Normal S2, No Murmurs Abdomen: Normal Bowel Sounds, Soft, No Tenderness, No Hepatosplenomegaly, No Masses Extremities: No Clubbing, No Cyanosis, No Edema, Normal Pulses, No Tenderness/ Swelling Skin: No Rashes, No Breakdown, No Significant Lesion Neuro: Normal Gait, Normal Speech, Strength at 5/5 X4 Ext, Normal Tone, Sensation Intact Psych/Mental Status: Mental Status NL, Mood NL Results Lab Laboratory Tests 04/01/17 05:55 A/P-Cardiology Admission Diagnosis Chest pain resembling angina Coronary artery disease Hypertension Hyperlipidemia Assessment/Plan Chest pain, chronic stable angina, still having recurrent pain on and off. Cardiac enzymes and EKG did not show any abnormality, patient was reassured, felt better after Xanax, planning for discharge home. Generalized body ache, lower extremity pain, upper extremity pain, headache, back pain and neck pain. General fatigue and loss of energy. Depression.okay for discharge from cardiology standpoint History of Transient ischemic attack, recent CVA occurred last week. Source is unknown, patient was started on Eliquis on the last admission process patient of cardiac thrombus, the last echo that was done in July 2016 showed questionable healed vegetation on the aortic cusp with moderate aortic regurgitation, it could be the source of his recurrent CVA/TIA, The use of Eliquis will increase the risk of bleeding, he does not have any documented atrial fibrillation in the past. carotid ultrasound was reported to have heavy atherosclerotic plaques but no obstructive disease, MRI did not show any acute abnormality. PETER showed echogenic density on the left aortic cusp most probably aortic valve sclerosis, unlikely to be healed vegetation. Measuring 0.80.7 centimeters, the valve is functioning normally, LV is normal. I will discontinue Eliquis and continue on aspirin and Plavix Coronary artery disease, cardiac catheterization carried out July 27, 2016 revealed total occlusion of right coronary artery, severe stenosis at the proper circumflex artery, ostial circumflex stenosis, LAD had moderate disease. IVUS showed 60 percent stenosis, underwent stenting to the right coronary artery with excellent results. Patient underwent multiple cardiac catheterizations in the month of July due to his ongoing chest pain. Most recent cardiac catheterization carried out by Dr. Ortiz on August 14, 2016 revealed widely patent stented portion of the RCA which was completely occluded before. Malposition of stents in the mid to distal RCA from positive remodeling , likely in a dissection plane site during the complex [employer]. Recommended conservative management for the area rather than ballooning it, probably it will thrombose without affecting the stent. Distal circumflex artery with 90 percent stenosis, small vessel supplying very small amount of myocardium. Patient's discomfort is incessant, unchanged after the PCI of the RCA. educated about compliance with medication, I will arrange for evaluation at Echocardiogram showed normal LV function, PETER showed echogenic density on the left aortic cusp, valve is functioning normally, unlikely to be the source of his stroke. Continue to monitor Hypertension, labile blood pressure, educated about compliance with medications. Continue to monitor Hyperlipidemia, continue on statin and monitor Claudication pain-complains of claudication pain to bilateral lower extremity at distances of 2-3 blocks. Denies any rest pain, ulceration, or gangrene, Normal LOLIS Headache-complains of intermittent headache over the past several months. No change after blood pressure is better controlled, patient was seen and evaluated in , workup so far according to the patient has been negative. Still have follow-up at . Discussed the possibility of side effect of some of the medication especially nitroglycerin, the concern is regarding his TIA like symptoms that did not show any source or origin. History of elevated LFTs-continue to monitor. GERD with history of gastritis, continue on Protonix Tobaccoism-patient was once again educated on importance of smoking cessation. 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
[2017-04-01] MEDS: CLOPIDOGREL 75 MG (PLAVIX) TABLET PO SCH (08:36)
[2017-04-01] MEDS: amLODIPine 10 MG (NORVASC) TAB PO SCH (08:36)
[2017-04-01] MEDS: ISOSORBIDE MONONITRATE 30 MG (IMDUR) TAB PO SCH (08:36)
[2017-04-01] MEDS: LOSARTAN 50 MG (COZAAR) TAB PO SCH (08:36)
[2017-04-01] MEDS: SERTRALINE 50 MG (ZOLOFT) TABLET PO SCH (08:36)
[2017-04-01] MEDS: busPIRone 15 MG (BUSPAR) TABLET PO SCH (08:36)
[2017-04-01] MEDS: cloNIDine 0.1 MG (CATAPRES) TAB PO SCH (08:36)
[2017-04-01] MEDS: CARVEDILOL 3.125 MG (COREG) TABLET PO SCH (08:36)
[2017-04-03 00:37] LABS: SPECIMEN SITE Venous
[2017-04-04 08:23] LABS: LEAD 3 mcg/dL (< 5)
--- NOTE | 2017-04-05 07:19 | Clinic Account Progress/Dx ---
Clinic Account Progress/Dx DIAGNOSIS: Time Seen by Provider: 07:20 chest pain resembling angina. Malignant hypertension. Complex migraine. Coronary artery disease. Hyperlipidemia ANDRES RABAGO DO Apr 05, 2017 07:19
== END 2017-04-01 08:29 | disposition home or self-care (01) ==
LOC: EDUNIT# 10:40 → ER 10:42 → UNDOADMOB 14:23 → 4TH 14:23 → UNDODISOB 04-01 09:20
PROVIDERS: ADMIT Family Medicine; ATTEND Family Medicine
DX: I25.119 Atherosclerotic heart disease of native coronary artery with unspecified angina pectoris (principal); G43.909 Migraine, unspecified, not intractable, without status migrainosus; K21.9 Gastro-esophageal reflux disease without esophagitis; K44.9 Diaphragmatic hernia without obstruction or gangrene; E78.5 Hyperlipidemia, unspecified; I25.2 Old myocardial infarction; F33.9 Major depressive disorder, recurrent, unspecified; I10 Essential (primary) hypertension; F15.11 Other stimulant abuse, in remission; F17.210 Nicotine dependence, cigarettes, uncomplicated; Z79.82 Long term (current) use of aspirin; Z79.02 Long term (current) use of antithrombotics/antiplatelets; Z79.899 Other long term (current) drug therapy; Z95.5 Presence of coronary angioplasty implant and graft; Z86.73 Personal history of transient ischemic attack (TIA), and cerebral infarction without residual deficits
CPT/HCPCS: 36415; 80048; 80053; 80076; 83655; 84484; 85025; 85027; 85379; 93005; G0378

== ENCOUNTER 2017-04-04 10:04 | Emergency (ER) | payer OTHER ==
[~2017-04-04] VITALS: Ht 175.3 cm; Wt 78.9 kg
[~2017-04-04 10:04] MED LIST changes: +ALPR0.25 PO; +Apixaban; +BUSP15TA60 PO; +CARV3.12 PO; +ELQUIS; +ISOS30TA3 PO; +RANO10003 PO; +RED600CA2 PO; +TPR25T PO
--- OUTSIDE RECORDS SUMMARY | 2017-04-04 10:12 | XMS REPORT | Continuity of Care Document ---
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 Turbine Mechanic Name Role Phone [employer] Unavailable Unavailable Problems Medications Allergies, Adverse Reactions, Alerts Immunizations Results Vital Signs Encounters Location Location Details Encounter Type Encounter Number Reason For Visit Attending Provider ADM Date DC Date Status Source O 03/05/2017 03/05/2017 Active [facility] INPATIENT [id number] JACKELYN MURDOCK 03/06/20172016 Active [facility] Procedures Plan of Care Social History Assessment and Plan Family History Value Date Source Advance Directives Order Name Results Value Date Source
--- OUTSIDE RECORDS SUMMARY | 2017-04-04 10:13 | XMS REPORT | Encounter Summary ---
Author Author [facility] Organization [facility] Address Unknown Phone Unavailable Care Team Providers Care Retail Consultant Name Role Phone PCP Unavailable Encounter Details Date Type Department Care Team Description 03/07/2017 Ancillary Rad Outpatient, Radiologist Diagnosis unknown Orders [address] [place], [place] [id number] Social History Tobacco Use Types Packs/Day Years [...]
--- OUTSIDE RECORDS SUMMARY | 2017-04-04 10:13 | XMS REPORT | Encounter Summary ---
Author Author [facility] Organization [facility] Address Unknown Phone Unavailable Care Team Providers Care Bicycle Taxi Driver Name Role Phone PCP Unavailable Encounter Details Date Type Department Care Team Description 03/05/2017 [facility] [address] [place] [address] Social History Tobacco Use Types [...]
--- OUTSIDE RECORDS SUMMARY | 2017-04-04 10:13 | XMS REPORT | Encounter Summary ---
Author Author [facility] Organization [facility] Address Unknown Phone Unavailable Care Team Providers Care Automatic Line Set Up Mechanic Name Role Phone PCP Unavailable Encounter Details Date Type Department Care Team Description 03/06/2017 [facility] [address] [place] [address] Social History Tobacco Use Types [...]
--- OUTSIDE RECORDS SUMMARY | 2017-04-04 10:13 | XMS REPORT | Encounter Summary ---
Author Author [facility] Organization [facility] Address Unknown Phone Unavailable Care Team Providers Care Insemination Worker Name Role Phone PCP Unavailable Reason for Visit * Reason Comments General Question Encounter Details Date Type Department Care Team Description 03/15/2017 Telephone [facility] Melquiades Byrne DO General Question Physicians - Neurology [address] [facility] [address] [place] [address] [place], [place] [phone] [id number] [phone] Social History Tobacco Use Types Packs/Day Years [...]
--- OUTSIDE RECORDS SUMMARY | 2017-04-04 10:13 | XMS REPORT | Clinical Summary ---
Author Author [facility] Organization [facility] Address Unknown Phone Unavailable Care Team Providers Care Customer Technical Services Manager Name Role Phone PCP Unavailable Source Comments Some departments are not documenting in the electronic medical record. If you do not see the information that you expected, contact Release of Information in the Health Information Management department at [phone] for further assistance in locating additional records.[facility] Allergies Active Allergy Reactions Severity Noted [...] for Chest Pain. Max of 3 of [place] artery of tablets, call 911. 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 ([facility]) Overview: 07/29/16: heart cath ([place], [place]) - total occlusion of the right [...] Radiology Outpatient, Radiologist Diagnosis unknown Orders 03/06/2017 [facility] Melquiades Byrne DO Episode of transient Encounter [...] 1978 COLORECTAL CANCER 2011 SCREENING INFLUENZA VACCINE 01/18/2017 Procedures Procedure Name Priority Date/Time Associated Diagnosis [...] Specimen Performing Laboratory Urine MAIN LAB [address] [place] [address] * OPIATES-URINE RANDOM (03/06/2017 1:44 AM) Only [...] Specimen Performing Laboratory Urine MAIN LAB [address] [place] [address] * COCAINE-URINE RANDOM (03/06/2017 1:44 AM) Only [...] COCAINE 300 NG/ML Specimen Performing Laboratory Urine [facility] [address] [place] [address] * CANNABINOIDS-URINE RANDOM (03/06/2017 1:44 AM) Only [...] CANNABINOIDS 50 NG/ML Specimen Performing Laboratory Urine [facility] [address] [place] [address] * BENZODIAZEPINES-URINE RANDOM (03/06/2017 1:44 AM) Only [...] BENZODIAZEPINES 200 NG/ML Specimen Performing Laboratory Urine [address] [address] * BARBITURATES-URINE RANDOM (03/06/2017 1:44 AM) Only [...] BARBITURATES 200 NG/ML Specimen Performing Laboratory Urine [facility] [address] [place] [address] * AMPHETAMINES-URINE RANDOM (03/06/2017 1:44 AM) Only [...] AMPHETAMINES 1000 NG/ML Specimen Performing Laboratory Urine [facility] [address] [place] [address] * PROTIME INR (PT) (03/06/2017 1:22 AM) Only the most recent of 2 results within the time period is included. Component Value Ref Range INR 1.0 0.8 - 1.2 Specimen Performing Laboratory Blood MAIN LAB [address] [place], [place] [id number] * CBC (03/06/2017 1:22 AM) Only the [...] [place] Specimen Performing Laboratory Blood MAIN LAB [address] [place], [place] [id number] * PHOSPHORUS (03/06/2017 1:22 AM) Only the most recent of 3 results within the time period is included. Component Value Ref Range Phosphorus 3.8 2.0 - 4.0 MG/DL Specimen Performing Laboratory Blood MAIN LAB [address] [place], [place] [id number] * MAGNESIUM (03/06/2017 1:22 AM) Only the most recent of 3 results within the time period is included. Component Value Ref Range Magnesium 1.8 1.6 - 2.6 mg/dL Specimen Performing Laboratory Blood MAIN LAB [address] [place] [address] * ALCOHOL LEVEL (03/06/2017 1:22 AM) Component Value Ref Range Alcohol <10 MG/DL Specimen Performing Laboratory Blood MAIN LAB [address] [place] [address] * COMPREHENSIVE METABOLIC PANEL (03/06/2017 1:22 AM) [...] Performing Laboratory Blood [facility] [address] [place] [address] * CT BRAIN PERF (03/06/2017 1:04 AM) [...] stenosis. There is origin of the right ASSOCIATE PROFESSOR OF CHURCH MUSIC. The anterior, middle, and posterior cerebral arteries [...] stenosis. There is origin of the right ASSOCIATE PROFESSOR OF CHURCH MUSIC. The anterior, middle, and posterior cerebral arteries [...] stenosis. There is origin of the right ASSOCIATE PROFESSOR OF CHURCH MUSIC. The anterior, middle, and posterior cerebral arteries [...] stenosis. There is origin of the right ASSOCIATE PROFESSOR OF CHURCH MUSIC. The anterior, middle, and posterior cerebral arteries [...] stenosis. There is origin of the right ASSOCIATE PROFESSOR OF CHURCH MUSIC. The anterior, middle, and posterior cerebral arteries [...] stenosis. There is origin of the right ASSOCIATE PROFESSOR OF CHURCH MUSIC. The anterior, middle, and posterior cerebral arteries [...] Performing Laboratory Blood [facility]IN [facility] [address] [place] [address] * SWALLOW MOTION SERIES (01/13/2017 8:48 AM) [...] Blood [facility]IN [facility] [address] [place] [address] * CTA CHEST WO/W CONTRAST+POST IMPRESSION (01/12/2017 [...] Specimen Performing Laboratory [facility] [address] [place] [address] * TROPONIN-I (01/12/2017 11:48 AM) Only the most recent of 3 results within the time period is included. Component Value Ref Range Troponin-I 0.01 0.0 - 0.05 NG/ML Specimen Performing Laboratory Blood MAIN LAB [address] [place] [address] * LIPID PROFILE (01/12/2017 11:48 AM) Component [...] Specimen Performing Laboratory Blood MAIN LAB [address] [place] [address] * 2-D + DOPPLER ECHOCARDIOGRAM (01/12/2017 8:54 AM) Component Value Ref Range BSA 1.86 m2 Referring Provider Dexter Hernandes CV ECHO PV VENDETTE Floor RN LVIDD 3.3 4.2 - 5.9 [...] Specimen Performing Laboratory Blood MAIN LAB [address] [place] [address] * HEMOGLOBIN A1C (01/12/2017 7:34 AM) Component Value Ref Range Hemoglobin A1C 5.5 4.0 - 6.0 % Comment: The ADA recommends that most patients with type 1 and type 2 diabetes maintain an A1c level <7%. Specimen Performing Laboratory Blood MAIN LAB [address] [place] [address] * CT CHEST EXTERNAL IMAGING (01/12/2017 12:15 AM) Narrative This order has been auto finalized and does not contain a result. from Last 3 Months
--- OUTSIDE RECORDS SUMMARY | 2017-04-04 10:14 | XMS REPORT | Encounter Summary ---
Author Author [facility] Organization [facility] Address Unknown Phone Unavailable Care Team Providers Care Residential Solar Sales Consultant Name Role Phone PCP Unavailable Encounter Details Date Type Department Care Team Description 03/05/2017 Procedure [facility] [address] [place] [address] Social History Tobacco Use Types [...]
--- OUTSIDE RECORDS SUMMARY | 2017-04-04 10:14 | XMS REPORT | Encounter Summary ---
Author Author [facility] Organization [facility] Address Unknown Phone Unavailable Care Team Providers Care Delicatessen Goods Stock Clerk Name Role Phone PCP Unavailable Encounter Details Date Type Department Care Team Description 03/05/2017 Hospital [facility] Encounter Hospital Radiology [address] [place], [place] [id number] Social History Tobacco Use Types Packs/Day Years [...]
--- OUTSIDE RECORDS SUMMARY | 2017-04-04 10:14 | XMS REPORT | Encounter Summary ---
Author Author [facility] Organization [facility] Address Unknown Phone Unavailable Care Team Providers Care Sales Operations Name Role Phone PCP Unavailable Encounter Details Date Type Department Care Team Description 03/05/2017 Procedure [facility] [address] [place] [address] Social History Tobacco Use Types [...]
--- OUTSIDE RECORDS SUMMARY | 2017-04-04 10:14 | XMS REPORT | Encounter Summary ---
Author Author [facility] Organization [facility] Address Unknown Phone Unavailable Care Team Providers Care Retail Loss Prevention Specialist Name Role Phone PCP Unavailable Encounter Details Date Type Department Care Team Description 03/05/2017 Hospital [facility] Encounter Hospital Radiology [address] [place], [place] [id number] Social History Tobacco Use Types Packs/Day Years [...] for Chest Pain. Max of 3 of [place] artery of tablets, call 911. [place] heart with stable angina pectoris (HCC), Essential [...]
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
--- OUTSIDE RECORDS SUMMARY | 2017-04-04 10:15 | XMS REPORT | Encounter Summary ---
Author Author [facility] Organization [facility] Address Unknown Phone Unavailable Care Team Providers Care Grade And Center Marker Name Role Phone PCP Unavailable Encounter Details Date Type Department Care Team Description 01/12/2017 Hospital [facility] Encounter Hospital Radiology [address] [place], [place] [id number] Social History Tobacco Use Types Packs/Day Years [...] for Chest Pain. Max of 3 of [place] artery of tablets, call 911. [place] heart with stable angina pectoris (HCC), Essential [...]
--- OUTSIDE RECORDS SUMMARY | 2017-04-04 10:15 | XMS REPORT | Encounter Summary ---
Author Author [facility] Organization [facility] Address Unknown Phone Unavailable Care Team Providers Care Uniform Maker Name Role Phone PCP Unavailable Encounter Details Date Type Department Care Team Description 01/12/2017 [facility] Neuroscience [facility] ENT ICU Julianna Baer, [place] - Encounter [id number] 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 He was initially presented to the [place], [place] ED with chest pain. 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 Your last blood pressure was BP: 164/84, [...] cause. Return Appointment For Neurology scheduling contact [phone] For Neurosurgery appointments call [phone] Questions About Your Stay STANDARD For questions or concerns regarding your hospital stay: -DURING BUSINESS HOURS (8:00 AM - 4:30 PM): Call [phone] and ask to be transferred to your discharge attending physician. -AFTER BUSINESS HOURS (4:30 PM - 8:00 AM, on weekends, or holidays): Call [phone] and ask the broom machine operator to page the on-call doctor for the discharge attending physician. Discharging attending physician: GIRISH TELLEZ [[id number]] Low Fat / Low Cholesterol Diet Your goal is to limit the amount of saturated and trans fats in your diet. Keep track of how much cholesterol you eat and limit the total amount to 200mg ( milligrams) a day. If you have questions about your diet after you go home, you can call a dietitian at [phone]. 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 Max of 3 of georgetown artery of tablets, call 911. 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 He was initially presented to the [place], [place] ED with chest pain. He had [...] 5.5 - ECHO unremarkable. Plan: - Resumed RAILROAD EMERGENCY SERVICES MANAGER ASA and Plavix - Started on Simvastatin [...] Counseled to quit drugs - Cleared by PT/OT/SALES SERVICE EXECUTIVE/Rehab - s/p video swallow, now cleared by speech. Bradycaria - Cardiology consulted and following for bradycardia, . > RAILROAD EMERGENCY SERVICES MANAGER BB held per cardiology HTN > restarted [...] his R side. He reports eating a [employer] breakfast sandwich this morning without difficulty. He [...] for: PHART, PCO2A, PO2ART, HCO3A, BASEEXA, BASEDEFA, [id number] Lab Results Component Value Date HGB 12.1 [...] 0.9 01/12/2017 No results found for: TSH, QEKXT2O, CORTRAN Lab Results Component Value Date CHOL 231 (H) 01/12/2017 TRIG 216 (H) 01/12/2017 HDL 35 (L) 01/12/2017 LDL 152 (H) 01/12/2017 VLDL 43 01/12/2017 No results found for: VANRAN, VANPK, VANTR No results found for: CYCLOSPOR, TACROLIMUS, FREEPHENY Point of Care Testing: (Last 24 hours): Glucose: (!) 106 Radiology and Other Diagnostics Review: reviewed Sen Monterroso Neurology Resident PGY 2 Pager [phone] * Aye Hall MS,CCC-SALES SERVICE EXECUTIVE - 01/14/2017 11:45 AM CDT SPEECH-LANGUAGE PATHOLOGY NO TREATMENT NOTE Chart reviewed and made contact with RN. Pt tolerating diet and PO meds well with no overt s/s aspiration. Speech, swallow, cognition appear to have returned to baseline. Do not anticipate ongoing SALES SERVICE EXECUTIVE needs. Therapist: Aye Hall MS,CCC-SALES SERVICE EXECUTIVE [id number] Date: 01/14/2017 * Albania Díaz MD - 01/13/2017 2:51 PM CDT Formatting of this note may be different from the original. 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 No evidence of recent [place]. -- Sinus rhythm today. Normal AV conduction. [...] page with questions. After 5PM please call tracer bullet charging machine operator loss prevention agent. Tuesday - Tuesday 8AM-5PM please call Cardiology consult pager. Pt was seen and discussed with Dr. Charlie MD. Albania Díaz MD PGY-1 Internal Medicine Pager [phone] __ Subjective: Kaz Restrepo is a 56 [...] carvedilol. We may be seeing resolution of TELEVISION PRODUCTION TECHNICIAN disorder driving increased vagal tone. Also possible [...] Mr. Restrepo has no history of recent [place], LV dysfunction, or heart failure. Lipid profile [...] if we may assist. Catrachito Guerra M.D. 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 male with h/o HTN, HLD, Substance abuse, tobacco use , CAD s/p stents presented with right sided weakness, right facial droop and apahsia. He was initially presented to the [place], [place] ED with chest pain. He had [...] 5.5 - ECHO unremarkable. Plan: - Resumed RAILROAD EMERGENCY SERVICES MANAGER ASA and Plavix - Started on Simvastatin 40 in ICU. - Continue PT/OT/SALES SERVICE EXECUTIVE/Rehab - s/p video swallow - on mechanical [...] for: PHART, PCO2A, PO2ART, HCO3A, BASEEXA, BASEDEFA, [id number] Lab Results Component Value Date HGB 12.4 [...] 0.9 01/12/2017 No results found for: TSH, QXQXV7L, CORTRAN Lab Results Component Value Date CHOL 231 (H) 01/12/2017 TRIG 216 (H) 01/12/2017 HDL 35 (L) 01/12/2017 LDL 152 (H) 01/12/2017 VLDL 43 01/12/2017 No results found for: VANRAN, SHERRYPK, VANTR No results found for: CYCLOSPOR, TACROLIMUS, FREEPHENY Point of Care Testing: (Last 24 hours): Glucose: 90 Radiology and Other Diagnostics Review: reviewed Nataliya Barajas MD, MPH Neurology Resident PGY 4 Pager [phone] * Yair Pisano MD - 01/13/2017 11:27 [...] angina (HCC) 08/13/2016 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 Patient examined: yes Objective: I [...] optimize venous drainage Maintain normothermia, avoid hypoxemia, [place] appropriate osmotherapy ( i.e mannitol vs Hypertonic [...] CAD s/p stenting -asa and clopidogrel, restart RAILROAD EMERGENCY SERVICES MANAGER Imdur and losartan; 5) Chest Pain - [...] at risk for aspiration. Social work and registered nurse hh case manager for discharge planning and placement. Family Meeting and update: yes. Patient is able to make his or her decisions, family updated during rounds. Goals of therapy: Addressed, Patient is a full code Nurses concerns addressed. Disposition/Family: Transfer to neurology service X Yair G. Norris, MD Activity Therapy Specialist, Department of Neurology and Neurosurgery Pager: [phone] Date: 01/13/2017 X * Mai Pedersen, OT - 01/13/2017 11:13 AM CDT Formatting of this note may be different from the original. 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 Taken by herb to [facility] ED. BP slightly elevated on arrival. Treated with sublingual and topical NTG. UDS + amphetamine. Developed right facial droop, aphasia or dysarthria, flaccid right hemiplegia, and left-sided weakness. Presumed to have acute stroke. CT head w/o contrast negative for hemorrhage. Treated with tPA and transferred to Stroke Center at [facility]. Neurologically improved when compared with description [...] Patient Response: Verbalized Understanding Therapist: Aye Hall MS,CCC-SALES SERVICE EXECUTIVE [phone] Date: 01/13/2017 * Zully Castelan APRN-YEAST TENDER - 01/13/2017 6:29 AM CDT Formatting of this note may be different from the original. 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) 08/09/2016 07/29/16: heart cath ([place]ia [place], [place]) - total occlusion of the right [...] Plan: - LDL 152, goal < 70- RAILROAD EMERGENCY SERVICES MANAGER crestor increased to 20mg today - A1C 5.5 - ASA 81 and Plavix 75mg daily- resume today - PT/OT/SALES SERVICE EXECUTIVE/Rehab consulted Cardiac: hx of HTN, CAD, HLD, chest pain, bradycardia Echo 01/12: EF 65%, mild LVH, no shunt/thrombus CTA chest 01/12: negative for PE - cards consulted, appreciate recs - continue holding RAILROAD EMERGENCY SERVICES MANAGER coreg 12.5mg QD - will restart imdur 60mg daily today, consider restarting losartan 50mg daily if needed for BP control - SBP goal: <160 - MAP goal > 65 - crestor daily Respiratory: H/o tobacco abuse - smoking cessation - Stable on room air - Spo2 goal >95% GI: H/O GERD, Dysphagia - Feeding: regular diet - SALES SERVICE EXECUTIVE following- video swallow negative for aspiration, diet [...] radiologic and diagnostic procedures reviewed. Zully Castelan, WASHROOM CLEANER-YEAST TENDER Date: 01/13/[phone] I spent 45 minutes managing the care [...] Resource RN during scan. * Aye Hall, MS,CCC-SALES SERVICE EXECUTIVE - 01/12/2017 11:11 AM CDT SPEECH-LANGUAGE PATHOLOGY [...] risk of aspirating bacteria in oral secretions SALES SERVICE EXECUTIVE will follow for dysphagia and dysarthria management. [...] free from respiratory status changes. Therapist:Aye Hall MS,CCC-SALES SERVICE EXECUTIVE [id number] Date:01/12/2017 * Marie Monroe, RT - [...] Date: 01/12/2017 [place] AC=Airway clearance AM=Aerosolized medication BA=[place]ison aerosol DB&C=Deep breathe & cough FEV1=Forced expiratory volume in first second) IC=Inspiratory capacity LE=Lung expansion MDI=Metered dose inhaler Neb=Nebulizer O2=Oxygen Oxim=Oximetry PEFR=Peak expiratory flow rate POTATO CHIP FRYER=Rapid Response Team in this encounter H&P Notes [...] Active Problem List Diagnosis Date Noted Stroke ([facility]) 01/12/2017 Unstable angina ([facility]) 08/13/2016 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 Patient examined: yes Objective: I [...] optimize venous drainage Maintain normothermia, avoid hypoxemia, [place] appropriate osmotherapy ( i.e mannitol vs Hypertonic [...] at risk for aspiration. Social work and registered nurse hh case manager for discharge planning and placement. Family Meeting and update: yes. Patient is able to make his or her decisions, family updated during rounds. Goals of therapy: Addressed, Patient is a full code Nurses concerns addressed. Disposition/Family: Continue ICU care due to # 1 X Yair Pisano MD Pigeon Fancier, Department of Neurology and Neurosurgery Pager: [phone] Date: 01/12/2017 X * Carlene Rodriguez MD - 01/12/2017 8:17 AM CDT Formatting of this note may be different from the original. Neuro Critical Care History and Physical Kaz Currie Restrepo Admission Date: 01/12/2017 LOS: 0 days Full Code ASSESSMENT/PLAN Patient Active Problem List Diagnosis Date Noted Stroke ([facility]) 01/12/2017 Unstable angina ([facility]) 08/13/2016 Coronary artery disease of ge[place] artery of georgetown heart with stable angina pectoris ([facility]) 08/09/2016 07/29/16: heart cath ([place]ia [place], [place]) - total occlusion of the right [...] ASA 81 and Plavix 75mg tomorrow - PT/OT/SALES SERVICE EXECUTIVE/Rehab consulted - f/u on UDS MRI 01/12 [...] hrs GI: stable - Feeding: NPO - SALES SERVICE EXECUTIVE consulted to assess for dysphagia - neurosurgery [...] facial droop and apahsia. He is from [place]. 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 Carlene Rodriguez MD Date: 01/12/[phone] in this encounter Consult Notes * [place]ia [...] page with questions. After 5PM please call tracer bullet charging machine operator loss prevention agent. Tuesday - Tuesday 8AM-5PM please call Cardiology consult pager. Pt was seen and discussed with Dr. Guerra. 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 Taken by herb to [facility] ED. BP slightly elevated on arrival. Treated with sublingual and topical NTG. UDS + amphetamine. Developed right facial droop, aphasia or dysarthria, flaccid right hemiplegia, and left-sided weakness. Presumed to have acute stroke. CT head w/o contrast negative for hemorrhage. Treated with tPA and transferred to Stroke Center at [facility]. Neurologically improved when compared with description [...] HR was 48 during a visit to [facility] during past few months. Medications include carvedilol, which Mr. Restrepo has been using since at least 2014. Impression: 1) Noncardiac chest pain now. No evidence of recent [place]. 2) Sinus bradycardia since arrival earlier today. Normal AV conduction. Normal QRS axis and duration. Normal QT interval. Rate slows to 30 during sleep. This may be a chronic, stable phenomenon due to high vagal tone. The bradycardia may be due to an acute TELEVISION PRODUCTION TECHNICIAN event, such as stroke or seizure. Bradycardia [...] will follow up tomorrow. Catrachito Guerra M.D. [phone] * Mesha Mitchell MD - 01/12/2017 1:59 [...] a 56 y.o. male admitted to [facility] on 01/12/2017 with the following issues: stroke [...] 3 therapeutic disciplines, including PT, OT, and SALES SERVICE EXECUTIVE. This will need to be determined prior to considering admission to acute inpatient rehabilitation. Other recommendations (bowel, bladder, skin, pain, etc): PT, OT, ST consulted to address deficits as below Impaired gait/mobility: RAILROAD EMERGENCY SERVICES MANAGER pt was independent at community level without assistive device Currently requiring min assist for 5 steps to chair and transfers. Will benefit from continued work with PT to address mobility deficits Impaired ADL: RAILROAD EMERGENCY SERVICES MANAGER pt was independent Will benefit from ongoing OT to address functional deficits Dysarthria Aphasia, improved Noted to initially have global aphasia. He was able to speak in brief sentences , respond appropriately, name objects, repeat, and is oriented x4. Will benefit from SALES SERVICE EXECUTIVE for cognitive and speech evaluation and treatment. [...] and function. Neurogenic Bowel: Last BM documented RAILROAD EMERGENCY SERVICES MANAGER. Recommend bowel regimen with Senokot 2 tabs [...] hours while supine in bed, pressure relief [id number] in seated position, PRAFOs for pressure relief [...] concerns. Mesha Mitchell MD Rehab Consult Pager: [phone] History of Present Illness Hospital Course: Mr. Restrepo is a 56 yo M with PMH of HTN, HLD, substance abuse, tobacco use, CAD s/p stent, [place] 07/2016, and GERD who initially presented to [facility] in [place], [place] for chest pain and while in ED developed R hemiplegia, R facial droop, sensory deficits, and global aphasia (NIH 16). Imaging revealed L MCA stroke and tPA was administered. UDS + for methamphetamine at OSH. He was transferred to [facility] to be evaluated for further intervention. NIHSS 15 on admission to [facility]. SALES SERVICE EXECUTIVE recommends patient remain NPO.Pt is working with PT and OT to address functional and mobility deficits, rehab is now consulted for post-acute rehab/placement recommendations. 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 Current Level Of Function: PT Gait:Gait Distance: (4-5 steps to assist with transfer to chair) Gait: Assistance Level: Minimal Assist Gait: Assistive Device: Hand Hold Assist Bed Mobility/Transfers Bed Mobility: Supine to Sit: Minimal Assist Transfer Type: Sit to Stand Transfer: Assistance Level: To/From, Bed, Minimal Assist Transfer: Assistive Device: Hand Hold Assist OT SALES SERVICE EXECUTIVE COGNITIVE EVALUATION SUMMARY PRAGMATICS: BEHAVIOR: AUDITORY COMPREHENSION: [...] male who was admitted upon transfer from [facility] on 01/12/2017 with acute onset right [...] complexity and goals with PT, OT, and SALES SERVICE EXECUTIVE for acute inpatient rehabilitation. Recommend continued therapies, while the primary team completes stroke work-up and manages the patient, while addressing dysphagia and adequate nutritional access. Discussed with patient and will discuss with our gis coordinator and primary SWCM, although the patient is based in [place], [place]. Will continue to follow for medical [...] but will consider calling on his own. Step-In Educational Material: Accepted Chief Complaint Acute stroke [...] can be of further assistance, please call Step-In [phone] * Case Mgmt DC Maximo - Martha [...] Resources RIVER called Rona with admissions at [facility] [address] to confirm pt [...] will be responsible for transporting?: diana govea [phone] Type of Residence: Private residence Patient expects to be discharged to: Private residence Was the patient receiving home care services?: No ? Expected Discharge Expected Discharge Date: 01/14/17 ? Discharge Disposition Disposition: Home with No Needs (includes nursing home, [place]) ? Next Level Care -Sirisha Hurtado LMSW *[id number] * Case Mgmt DC Plan - Montserrat Morales - 01/13/2017 4:08 PM CDT Request for Case Management Resources Delivered community resources list to pt's bedside per the request Sirisha HOLMAN. Montserrat Morales CMA * Case Mgmt DC Plan - aMrtha Hurtado - 01/13/2017 1:49 PM CDT Case [...] anticipates pt to d/c to IPR near [place], [place] when medically stable. Interventions ? Support [...] $194.00 monthly through food assistance. RIVER tasked [facility] to provide pt with list of utility assistance programs in [facility]. ? Discharge Planning Discharge Planning: Inpatient Rehabilitation Pt agreeable to d/c to [facility] when medically stable. Pt reports wanting to stay at facility closer to [place], [place]. RIVER tasked [facility] to send IPR referral to [facility] [phone]. RIVER spoke with Kasandra in admissions [phone] to confirm facility received referral. [facility] reports referral is being clinically reviewed and will contact after determination is made. ? Medication Needs ? Financial Financial: [place] Referral/Follow-up, Financial Counseling Referral/Follow-up, Medicare/Medicaid/SSDI Information RIVER f/u with [place] [facility] and left voicemail regarding pt's application for [place] Medicaid and disability. RIVER spoke with Misty [...] Disposition ? Next Level Care -Sirisha Hurtado, [facility] *[id number] * Case Mgmt DC Plan - Montserrat Morales - 01/13/2017 1:49 PM CDT Request to Send Referral Received request from Sirisha Hurtado [facility] to send referral to the following facility: [facility] [address] [place] [address] Montserrat Morales [employer] Basis Trader For additional assistance please contact [facility] *[id number] * Case Mgmt DC Plan - Martha Hurtado - 01/13/2017 1:46 PM CDT Formatting of this note may be different from the original. Case Management Admission Assessment NAME:Kaz Restrepo :1960 AGE: 56 y.o. ADMISSION DATE: 01/12/2017 DAYS ADMITTED: LOS: 1 day Todays Date: 01/13/2017 Source of Information: pt Plan SW anticipates pt to d/c to [facility] near [place], [place] when medically stable. Plan: CM Assessment, Assist PRN with SW/NCM Services, Discharge Planning for Facility Anticipated Emergency Contact Extended Emergency Contact Information Primary Emergency Contact: Kirti Restrepo [facility] Relation: Mother Secondary Emergency Contact: Yanelis Govea [facility] [employer] Relation: Significant Other DPOA Pt denies wishing to complete paperwork at this time. Transportation Does the patient need discharge transport arranged?: No Transportation Name, Phone and Availability #1: girlfriend, yanelis govea [phone] Does the patient use Medicaid Transportation?: No [...] Yes Support Systems: Spouse/Partner (yanelis govea, girlfriend [phone]) Assistance Needed: No Home Care Services: No [...] ? Outpatient Therapy PT: No OT: No SALES SERVICE EXECUTIVE: No ? SNF/NH SNF: No NH: No [...] No Nurse Suspected Abuse?: No -Sirisha Hurtado, [facility] *0399 * Transfer - Zully Castelan, OSBALDO-TASHA - 01/13/2017 11:35 AM CDT Formatting of this note may be different from the original. 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 His RAILROAD EMERGENCY SERVICES MANAGER coreg was held and he remained asymptomatic with HR 45-60. Troponin and EKG negative for ischemia. Imdur was resumed. His RAILROAD EMERGENCY SERVICES MANAGER ASA and Plavix were started 24 hours [...] monitor for myalgia, h/o intolerance - resumed RAILROAD EMERGENCY SERVICES MANAGER wellbutrin - holding Coreg due to bradycardia [...] Cardiology ongoing recommendations for bradycardia - additional RAILROAD EMERGENCY SERVICES MANAGER antihypertensives to resume as needed - ongoing PT/OT/ST needs Activity/Weight bearing status: Up to chair with PT/OT Nutrition: Regular diet Discharge Plan: Transfer to floor for continued Zully Castelan APRN-YEAST TENDER Pager [phone] * Case Mgmt DC Plan - Massiel [...] will continue to follow. Massiel PETERSON, RN, [facility] Integrated Nurse Operations Staff Specialist Security Neurology Service Pager: [phone] * Acute Stroke Response - Lis Sauceda RN - 01/12/2017 7:53 AM CDT Formatting of this note may be different from the original. RN Stroke Activation Summary Date of Service: 01/12/2017 Kaz Restrepo is a 56 y.o. male. : 1960 Allergies: Pcn [penicillins] Patient Arrival: 0700 ASRT Arrival: 0647 Location of Response : flash CT Page Received: 6562 EMS Agency: [facility] Outside Hospital: [facility] Clinical Presentation: Dysarthria, Right facial droop, [...] to flash CT scanner at 0700 via [employer] [facility] collar stay fuser tender. NIH 15. CTA/CTP complete at this time. Pt failed swallow at this time. notified. CT/CTP/CTA/IR: CTA/CTP time: 724 CTA/CTP Interpretation time: 729 N/A Plan: Admit to ICU. 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 NIHSS was [...] facial droop and apahsia. He is from [facility]. Earlier today, at 1:20 AM in the morning she developed chest pain. He presented to the [facility] for chest pain. While he was [...] of Response : flash CT Page Received: 5634 Clinical Presentation: Dysarthria, Right facial droop, Right [...] language) 2=neither correct 2 1c. Commands-open/close eyes, sack keeper and release non-paretic hand (other 1 step [...] artery disease 08/09/2016 Coronary artery disease of [place] artery of [place] heart with stable angina pectoris (HCC) 08/09/2016 07/29/16: heart cath ([place]ia [place], [place]) - total occlusion of the right [...] MD, MPH Neurology Resident PGY 4 Pager [phone] in this encounter Plan of Treatment Not [...] Performing Laboratory [facility] [address] [place] [address] * BASIC METABOLIC PANEL (01/14/2017 4:40 AM) [...] Performing Laboratory [facility] [address] [place] [address] * SWALLOW MOTION SERIES (01/13/2017 8:48 AM) [...] Specimen Performing Laboratory [facility] [address] [place] [address] * BASIC METABOLIC PANEL (01/13/2017 3:50 AM) [...] Specimen Performing Laboratory [facility] [address] [place] [address] * IONIZED CALCIUM (01/13/2017 3:50 AM) Component Value Ref Range Ionized Calcium 1.09 1.0 - 1.3 MMOL/L Specimen Performing Laboratory [facility] [address] [place] [address] * PHOSPHORUS (01/13/2017 3:50 AM) Component Value Ref Range Phosphorus 3.2 2.0 - 4.0 MG/DL Specimen Performing Laboratory [facility] [address] [place] [address] * MAGNESIUM (01/13/2017 3:50 AM) Component Value Ref Range Magnesium 1.8 1.6 - 2.6 mg/dL Specimen Performing Laboratory [facility] [address] [place] [address] * CTA CHEST WO/W CONTRAST+POST IMPRESSION (01/12/2017 [...] (PCP) 25 NG/ML Specimen Performing Laboratory Urine [facility] [address] [place] [address] * OPIATES-URINE RANDOM (01/12/2017 2:17 PM) Component Value Ref Range Opiates-Urine NEG NEG-NEG Comment: RESULTS WERE OBTAINED BY IMMUNOASSAY AND ARE PRESUMPTIVE ONLY. POSITIVE INDICATES THE PRESENCE OF SUBSTANCE WITH CHARACTERISTICS SIMILAR TO DRUG-DRUG CLASS OR METABOLITE IN CONC. EQUAL TO OR EXCEEDING VALUES LISTED. OPIATES 200 0 NG/ML Specimen Performing Laboratory Urine [facility] [address] [place] [address] * COCAINE-URINE RANDOM (01/12/2017 2:17 PM) Component Value Ref Range Cocaine-Urine NEG NEG-NEG Comment: RESULTS WERE OBTAINED BY IMMUNOASSAY AND ARE PRESUMPTIVE ONLY. POSITIVE INDICATES THE PRESENCE OF SUBSTANCE WITH CHARACTERISTICS SIMILAR TO DRUG-DRUG CLASS OR METABOLITE IN CONC. EQUAL TO OR EXCEEDING VALUES LISTED. COCAINE 300 NG/ML Specimen Performing Laboratory Urine [facility] [address] [place] [address] * CANNABINOIDS-URINE RANDOM (01/12/2017 2:17 PM) Component Value Ref Range THC NEG NEG-NEG Comment: RESULTS WERE OBTAINED BY IMMUNOASSAY AND ARE PRESUMPTIVE ONLY. POSITIVE INDICATES THE PRESENCE OF SUBSTANCE WITH CHARACTERISTICS SIMILAR TO DRUG-DRUG CLASS OR METABOLITE IN CONC. EQUAL TO OR EXCEEDING VALUES LISTED. CANNABINOIDS 50 NG/ML Specimen Performing Laboratory Urine [facility] [address] [place] [address] * BENZODIAZEPINES-URINE RANDOM (01/12/2017 2:17 PM) Component Value Ref Range Benzodiazepines NEG NEG-NEG Comment: RESULTS WERE OBTAINED BY IMMUNOASSAY AND ARE PRESUMPTIVE ONLY. POSITIVE INDICATES THE PRESENCE OF SUBSTANCE WITH CHARACTERISTICS SIMILAR TO DRUG-DRUG CLASS OR METABOLITE IN CONC. EQUAL TO OR EXCEEDING VALUES LISTED. BENZODIAZEPINES 200 NG/ML Specimen Performing Laboratory Urine [facility] [address] [place] [address] * BARBITURATES-URINE RANDOM (01/12/2017 2:17 PM) Component Value Ref Range Barbiturates,Urine NEG NEG-NEG Comment: RESULTS WERE OBTAINED BY IMMUNOASSAY AND ARE PRESUMPTIVE ONLY. POSITIVE INDICATES THE PRESENCE OF SUBSTANCE WITH CHARACTERISTICS SIMILAR TO DRUG-DRUG CLASS OR METABOLITE IN CONC. EQUAL TO OR EXCEEDING VALUES LISTED. BARBITURATES 200 NG/ML Specimen Performing Laboratory [facility] [address] [place] [address] * AMPHETAMINES-URINE RANDOM (01/12/2017 2:17 PM) Component Value Ref Range Amphetamines NEG NEG-NEG Comment: RESULTS WERE OBTAINED BY IMMUNOASSAY AND ARE PRESUMPTIVE ONLY. POSITIVE INDICATES THE PRESENCE OF SUBSTANCE WITH CHARACTERISTICS SIMILAR TO DRUG-DRUG CLASS OR METABOLITE IN CONC. EQUAL TO OR EXCEEDING VALUES LISTED. AMPHETAMINES 1000 NG/ML Specimen Performing Laboratory [facility] [address] [place] [address] * MRI HEAD WO/W CONTRAST (01/12/2017 1:36 [...] MG/DL Specimen Performing Laboratory [facility] [address] [place] [address] * BASIC METABOLIC PANEL (01/12/2017 11:48 AM) [...] for questions. Specimen Performing Laboratory [facility] [address] [place] [address] * LIPID PROFILE (01/12/2017 11:48 AM) Component [...] mg/dL. Specimen Performing Laboratory [facility] [address] [place] [address] * TROPONIN-I (01/12/2017 11:48 AM) Component Value Ref Range Troponin-I 0.01 0.0 - 0.05 NG/ML Specimen Performing Laboratory [facility] [address] [place] [address] * TROPONIN-I (01/12/2017 9:39 AM) Component Value Ref Range Troponin-I 0.01 0.0 - 0.05 NG/ML Specimen Performing Laboratory [facility] [address] [place] [address] * 2-D + DOPPLER ECHOCARDIOGRAM (01/12/2017 8:54 AM) Component Value Ref Range BSA 1.86 m2 Referring Provider Detxer Hernandes CV ECHO PV PRECISION MARKET INSIGHTS Floor RN LVIDD 3.3 4.2 - 5.9 [...] Performing Laboratory [facility] [address] [place] [address] * TROPONIN-I (01/12/2017 7:34 AM) Component Value Ref Range Troponin-I 0.01 0.0 - 0.05 NG/ML Specimen Performing Laboratory [facility] [address] [place] [address] * PHOSPHORUS (01/12/2017 7:34 AM) Component Value Ref Range Phosphorus 3.5 2.0 - 4.0 MG/DL Specimen Performing Laboratory [facility] [address] [place] [address] * MAGNESIUM (01/12/2017 7:34 AM) Component Value Ref Range Magnesium 1.8 1.6 - 2.6 mg/dL Specimen Performing Laboratory [facility] [address] [place] [address] * PROTIME INR (PT) (01/12/2017 7:34 AM) Component Value Ref Range INR 0.9 0.8 - 1.2 Specimen Performing Laboratory [facility] [address] [place], [place] [id number] * CBC AND DIFF (01/12/2017 7:34 AM) [...] K/UL Specimen Performing Laboratory [facility] [address] [place], [place] [id number] * HEMOGLOBIN A1C (01/12/2017 7:34 AM) Component Value Ref Range Hemoglobin A1C 5.5 4.0 - 6.0 % Comment: The ADA recommends that most patients with type 1 and type 2 diabetes maintain an A1c level <7%. Specimen Performing Laboratory [facility] [address] [place] [address] * CT BRAIN PERF (01/12/2017 7:25 AM) [...] stenosis. There is origin of the right LOAN ADVISER. The anterior, middle, and posterior cerebral arteries [...] stenosis. There is origin of the right LOAN ADVISER. The anterior, middle, and posterior cerebral arteries [...] stenosis. There is origin of the right LOAN ADVISER. The anterior, middle, and posterior cerebral arteries [...] stenosis. There is origin of the right LOAN ADVISER. The anterior, middle, and posterior cerebral arteries [...] stenosis. There is origin of the right LOAN ADVISER. The anterior, middle, and posterior cerebral arteries [...] stenosis. There is origin of the right LOAN ADVISER. The anterior, middle, and posterior cerebral arteries [...] specified cardiac dysrhythmias Coronary artery disease of [place] artery of [place] heart with stable angina pectoris (HCC) Essential hypertension Unspecified essential hypertension Mixed hyperlipidemia Tobacco abuse Tobacco use disorder Transient cerebral ischemia, unspecified type GERI (acute kidney injury) (HCC) Acute kidney failure, unspecified Dysphagia, unspecified type History of noncompliance with medical treatment Personal history of noncompliance with medical treatment, presenting hazards to health Coronary artery disease involving [place] coronary artery of [place] heart with angina pectoris (HCC) GERD (gastroesophageal [...]
--- OUTSIDE RECORDS SUMMARY | 2017-04-04 10:15 | XMS REPORT | Encounter Summary ---
Author Author [facility] Organization [facility] Address Unknown Phone Unavailable Care Team Providers Care Jukebox Coin Collector Name Role Phone PCP Unavailable Encounter Details Date Type Department Care Team Description 01/12/2017 [facility] [address] [place] [address] Social History Tobacco Use Types [...]
--- OUTSIDE RECORDS SUMMARY | 2017-04-04 10:15 | XMS REPORT | Encounter Summary ---
Author Author [facility] Organization [facility] Address Unknown Phone Unavailable Care Team Providers Care Tunnel Miner Name Role Phone PCP Unavailable Encounter Details Date Type Department Care Team Description 01/12/2017 Hospital [facility] Encounter Hospital Radiology [address] [place], [place] [id number] Social History Tobacco Use Types Packs/Day Years [...] for Chest Pain. Max of 3 of [place] artery of tablets, call 911. [place] heart with stable angina pectoris (HCC), Essential [...]
--- OUTSIDE RECORDS SUMMARY | 2017-04-04 10:16 | XMS REPORT | Encounter Summary ---
Author Author [facility] Organization [facility] Address Unknown Phone Unavailable Care Team Providers Care Tax Services Manager Name Role Phone PCP Unavailable Encounter Details Date Type Department Care Team Description 01/12/2017 Hospital [facility] Encounter Hospital Radiology [address] [place], [place] [id number] Social History Tobacco Use Types Packs/Day Years [...] for Chest Pain. Max of 3 of [place] artery of tablets, call 911. [place] heart with stable angina pectoris (HCC), Essential [...]
--- OUTSIDE RECORDS SUMMARY | 2017-04-04 10:16 | XMS REPORT | Encounter Summary ---
Author Author [facility] Organization [facility] Address Unknown Phone Unavailable Care Team Providers Care Power Equipment Mechanics Instructor Name Role Phone PCP Unavailable Encounter Details Date Type Department Care Team Description 01/12/2017 [facility] [address] [facility] [place] [address] Social History Tobacco Use Types [...]
--- OUTSIDE RECORDS SUMMARY | 2017-04-04 10:16 | XMS REPORT | Encounter Summary ---
Author Author [facility] Organization [facility] Address Unknown Phone Unavailable Care Team Providers Care Biologist Name Role Phone PCP Unavailable Encounter Details Date Type Department Care Team Description 01/12/2017 [facility] [address] [facility] [address] Social History Tobacco Use Types [...]
--- OUTSIDE RECORDS SUMMARY | 2017-04-04 10:16 | XMS REPORT | Encounter Summary ---
Author Author [facility] Organization [facility] Address Unknown Phone Unavailable Care Team Providers Care Health Outreach Worker Name Role Phone PCP Unavailable Encounter Details Date Type Department Care Team Description 01/12/2017 [facility] [address] [facility] [place] [address] Social History Tobacco Use Types [...]
--- OUTSIDE RECORDS SUMMARY | 2017-04-04 10:16 | XMS REPORT | Encounter Summary ---
Author Author [facility] Organization [facility] Address Unknown Phone Unavailable Care Team Providers Care Pulp Maker Name Role Phone PCP Unavailable Encounter Details Date Type Department Care Team Description 01/12/2017 Hospital [facility] Encounter Hospital Radiology [address] [place], [place] [id number] Social History Tobacco Use Types Packs/Day Years [...] for Chest Pain. Max of 3 of [place] artery of tablets, call 911. [place] heart with stable angina pectoris (HCC), Essential [...]
--- OUTSIDE RECORDS SUMMARY | 2017-04-04 10:16 | XMS REPORT | Encounter Summary ---
Author Author [facility] Organization [facility] Address Unknown Phone Unavailable Care Team Providers Care Load Dispatcher Name Role Phone PCP Unavailable Encounter Details Date Type Department Care Team Description 01/12/2017 [facility] [address] [facility] [place] [address] Social History Tobacco Use Types [...]
[2017-04-04] MEDS ORDERED: LABETALOL HCL 20 MG/4 ML VIAL IV ONE (10:45)
--- NOTE | 2017-04-04 10:55 | Diagnostic Imaging Report ---
EXAM: CT head. TECHNIQUE: Noncontrast axial images of the brain were obtained. INDICATION: Right-sided weakness and numbness. FINDINGS: There is no intracranial hemorrhage, edema or mass effect. The brain parenchyma appears unremarkable. No hydrocephalus. The visualized portions of the orbits and paranasal sinuses appear unremarkable. Nasal septal deviation to the right side is seen however. IMPRESSION: Unremarkable study. Dictated by: Dictated on workstation # [id number]
[2017-04-04] MEDS ORDERED: fentaNYL INJECTION 100 MCG/2 ML AMP IVP ONE (11:15)
[2017-04-04 11:17] LABS: BASOPHILS # (AUTO) 0.1 10^3/uL (0.0-0.1); BASOPHILS % (AUTO) 1 % (0-10); EOSINOPHILS # (AUTO) 0.3 10^3/uL (0.0-0.3); EOSINOPHILS % (AUTO) 6 % (0-10); LYMPHOCYTES # (AUTO) 1.4 X 10^3 (1.0-4.0); LYMPHOCYTES % (AUTO) 24 % (12-44); MEAN CORPUSCULAR HEMOGLOBIN 30 PG (25-34); MEAN CORPUSCULAR HGB CONC 33 G/DL (32-36); MEAN CORPUSCULAR VOLUME 91 FL (80-99); MEAN PLATELET VOLUME 9.5 FL (7.4-10.4); MONOCYTES # (AUTO) 0.6 X 10^3 (0.0-1.0); MONOCYTES % (AUTO) 11 % (0-12); NEUTROPHILS # (AUTO) 3.3 X 10^3 (1.8-7.8); NEUTROPHILS % (AUTO) 58 % (42-75); PLATELET COUNT 314 10^3/uL (130-400); RED BLOOD COUNT 4.05 10^6/uL (4.35-5.85); RED CELL DISTRIBUTION WIDTH 13.4 % (10.0-14.5); WHITE BLOOD COUNT 5.6 10^3/uL (4.3-11.0)
[2017-04-04 11:32] VITALS: BP 160/86
[2017-04-04 11:38] LABS: INR 0.9 (0.8-1.4); PROTHROMBIN TIME PATIENT 12.4 SEC (12.2-14.7)
[2017-04-04 11:42] LABS: ALANINE AMINOTRANSFERASE 63 U/L (0-55); ALBUMIN 4.1 GM/DL (3.2-4.5); ALCOHOL < 10 MG/DL (<10); ANION GAP 9 MMOL/L (5-14); ASPARTATE AMINO TRANSFERASE 30 U/L (5-34); BILIRUBIN,TOTAL 0.3 MG/DL (0.1-1.0); BLOOD UREA NITROGEN 26 MG/DL (7-18); BUN/CREATININE RATIO 20; CALCIUM 9.6 MG/DL (8.5-10.1); CARBON DIOXIDE 29 MMOL/L (21-32); CHLORIDE 100 MMOL/L (98-107); CREATININE SERUM 1.31 MG/DL (0.60-1.30); GFR ESTIMATED 57; GLUCOSE 80 MG/DL (70-105); POTASSIUM 4.5 MMOL/L (3.6-5.0); SODIUM 138 MMOL/L (135-145); TOTAL PROTEIN 7.7 GM/DL (6.4-8.2)
[2017-04-04 11:48] LABS: TROPONIN I < 0.30 NG/ML (<0.30)
--- NOTE | 2017-04-04 12:04 | ED Neurological Problem ---
General Chief Complaint: Cardiac/General Problems Stated Complaint: ELEV BP Nursing Triage Note: AMBULATED TO ROOM WITH OUT PROBLEM WAS DISCHARGE FROM HOSPITAL ON TUESDAY. WAS SENT BY DR RABAGO FOR ELEVATED B/P OF 200/99 PER . DID TAKE AM MEDS. C/ O CHRONIC HEADACHE Nursing Sepsis Screen: No Definite Risk Source: patient Exam Limitations: no limitations History of Present Illness Time seen by provider: 10:30 Initial Comments This 56-year-old gentleman known to me from prior encounters presents with primary complaint of severe hypertension and headache. Systolic blood pressures have been well over 200. Blood pressure on arrival was 207/104. After patient checked and he began to develop right arm numbness and facial droop was noted in the exam room. This seemed to progress during the course of assessment as did headache. Patient also seemed to develop some altered mental status with resistance to talking. Patient does have a history of methamphetamine use but denies any recent relapse. Patient had a recent admission to the hospital on March 30 for a similar presentation. The ER physician's impression at that time was that he likely had migraine. Progression of symptoms would suggest atypical migraine. Stroke activation was paged. NIH score was 4. Allergies and Home Medications Allergies Coded Allergies: penicillin G (Verified Allergy, Severe, SWELLING, 03/30/17) Home Medications Alprazolam 0.25 Mg Tablet, 0.25 MG PO BID PRN for ANXIETY, (Reported) Amitriptyline HCl 25 Mg Tablet, 25 MG PO HS, #30 Prescribed by: BILL HUERTA on 04/04/17 1301 Amlodipine Besylate 10 Mg Tablet, 10 MG PO DAILY, (Reported) Aspirin 81 Mg Tablet.dr, 81 MG PO HS, (Reported) Atorvastatin Calcium 10 Mg Tablet, 10 MG PO HS, (Reported) Bupropion HCl 150 Mg Tablet.er, 150 MG PO BID, (Reported) Buspirone HCl 15 Mg Tablet, 15 MG PO TID, (Reported) Carvedilol 3.125 Mg Tablet, 3.125 MG PO BID, (Reported) Clonidine HCl 0.1 Mg Tablet, 0.1 MG PO TID, (Reported) Clopidogrel Bisulfate 75 Mg Tablet, 75 MG PO HS, (Reported) Isosorbide Mononitrate 30 Mg Tab.er.24h, 30 MG PO DAILY, (Reported) Losartan Potassium 50 Mg Tablet, 50 MG PO BID, (Reported) LAST FILLED #90 7-30-17 Nitroglycerin 0.4 Mg Tab.subl, 0.4 MG SL UD PRN for CHEST PAIN, (Reported) PLACE 1 TAB UNDER TONGUE NEEDED FOR CHEST PAIN; IF PAIN REMAINS AFTER 5 MINUTES, CALL 911 [place]-3 Fatty Acids/Fish Oil 1 Each Capsule, 1,000 MG PO BID, (Reported) Ranolazine 1,000 Mg Tab.er.12h, 500 MG PO BID, (Reported) TAKES 1/2 (1000MG) TABLET Red Yeast Rice 600 Mg Capsule, 3 CAP PO HS, (Reported) Sertraline HCl 50 Mg Tablet, 50 MG PO DAILY, (Reported) Trazodone HCl 100 Mg Tablet, 100 MG PO HS, (Reported) Constitutional: no symptoms reported Eyes: No Symptoms Reported Ears, Nose, Mouth, Throat: no symptoms reported Respiratory: no symptoms reported Cardiovascular: see HPI Gastrointestinal: no symptoms reported Genitourinary: no symptoms reported Musculoskeletal: no symptoms reported Skin: no symptoms reported Psychiatric/Neurological: See HPI Endocrine: No Symptoms Reported Past Pbbhmxv-[id number]-Pjxlws Hx Patient Social History Alcohol Use: Denies Use Number of Drinks Today: AA Alcohol Beverage of Choice: Beer Recreational Drug Use: Yes (history of methamphetamine use in recovery) Smoking Status: Former Smoker Type Used: Cigarettes Former Smoker, Quit: Jan 25, 2017 2nd Hand Smoke Exposure: Yes Recent Foreign Travel: No Contact w/Someone Who Travel: No Recent Infectious Disease Expo: No Recent Hopitalizations: Yes (01/2017 FOR TIA/CHEST PAIN) Immunizations Up To Date Tetanus Booster (TDap): Less than 5yrs PED Vaccines UTD: No Date of Influenza Vaccine: Dec 28, 2014 Seasonal Allergies Seasonal Allergies: No Surgeries History of Surgeries: Yes (hernia) Surgeries: Abdominal, Coronary Stent, Orthopedic Respiratory History of Respiratory Disorde: No Currently Using CPAP: No Currently Using BIPAP: No Cardiovascular History of Cardiac Disorders: Yes (CARDIAC STENTS) Cardiac Disorders: Coronary Artery Disease, Deep Vein Thrombosis, Heart Attack , High Cholesterol, Hypertension Neurological History of Neurological Disord: Yes Neurological Disorders: Stroke, TIA Reproductive System Hx Reproductive Disorders: No Sexually Transmitted Disease: No Genitourinary History of Genitourinary Disor: Yes (recurrent urinary tract infections) Gastrointestinal History of Gastrointestinal Di: Yes Gastrointestinal Disorders: Gastroesophageal Reflux, Hiatal Hernia, Ulcer Musculoskeletal History of Musculoskeletal Dis: No Endocrine History of Endocrine Disorders: No HEENT History of HEENT Disorders: No Loss of Vision: Denies Cancer History of Cancer: No Psychosocial History of Psychiatric Problem: Yes Behavioral Health Disorders: Depression Integumentary History of Skin or Integumenta: No Blood Transfusions History of Blood Disorders: No Adverse Reaction to a Blood Tr: No Family Medical History Significant Family History: Heart Disease, Hypertension Family Medial History: Arthritis 19 MOTHER INSURANCE COMPLIANCE ANALYST G8 SISTER FH: COPD (chronic obstructive pulmonary disease) Hypercholesterolemia 19 MOTHER Hypertension 19 MOTHER Physical Exam Vital Signs Vital Sign - Last 12Hours 04/04/ 10:23 Temp 98.6 Pulse 72 Resp 18 B/P (MAP) 207/104 Pulse Ox 95 O2 Delivery Room Air Capillary Refill : Less Than 3 Seconds General Appearance: WD/WN, mild distress HEENT: PERRL/EOMI, pharynx normal, other (Right-sided facial weakness including the forehead) Neck: normal inspection Respiratory: lungs clear, normal breath sounds, no respiratory distress, no accessory muscle use Cardiovascular: regular rate, rhythm, no edema, no murmur Gastrointestinal: normal bowel sounds, non tender, soft Extremities: normal inspection, no pedal edema, normal capillary refill Neurologic/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: 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, alert, oriented x 3, facial droop (Right side including the forehead), motor weakness (Right arm and leg drift on NIH) Crainal Nerves: normal hearing, PERRL, abnormal speech (Resistance to speech), facial asymmetry, facial droop, facial paresthesias Coordination/Gait: normal finger to nose, normal gait Motor/Sensory: weak motor strength RUE, weak motor strength RLE Skin: normal color, warm/dry Stroke NIH Stroke Scale Assessment Level of Consciousness: 0=Alert (0), Level of Consciousness-Questions: 0= Answers both month/age (0), LOC Commands: 0=Performs both tasks (0), Gaze: Normal (0), Visual Rodriguez: 0=No visual loss (0), Facial Movement (Facial Paresis ): 1=Minor paralysis (1), Motor Function-Arms Right: 1=Drift (1), Motor Function -Arms Left: 0=No drift (0), Motor Function-Legs Right: 1=Drift (1), Motor Function-Legs Left: 0=No drift (0), Sensory: 1=Mild to Moderate loss (1), Best Language: 0=No aphasia (0), Extinction & Inattention: 0=No abnormality (0), Total: 4 Stroke Thrombolytic Exclusion Age 18 or Over: Yes Acute intenal hemorrhage: No History of CVA: No Uncontrolled Coagulation Defec: No Intracranial Hemorrhage: No Severe Hypertension: No GI or Bleed: No Subarachnoid Hemorrhage: No Intracranial Neoplasm/Aneurysm: No Oral Anticoagulants: No Surgery or Trauma: No Puncture of Non-Compressible V: No Recent CPR: No Diabetic Hemorrhagic Retinopat: No Organ Biopsy: No Recent Obstetric Delivery: No Glucose: No Significant Hepatic Dysfunctio: No NIH Stoke Scale >22: No Bacterial Endocarditis: No Pericarditis: No Improving Symptoms: No Platelets: No Progress/Results/Core Measures Results/Orders Lab Results Laboratory Tests Test 04/04/17 11:05 04/04/17 12:10 Range/Units White Blood Count 5.6 4.3-11.0 10^3/uL Red Blood Count 4.05 L 4.35-5.85 10^6/uL Hemoglobin 12.3 L 13.3-17.7 G/DL Hematocrit 37 L 40-54 % Mean Corpuscular Volume 91 80-99 FL Mean Corpuscular Hemoglobin 30 25-34 PG Mean Corpuscular Hemoglobin Concent 33 32-36 G/DL Red Cell Distribution Width 13.4 10.0-14.5 % Platelet Count 314 130-400 10^3/uL Mean Platelet Volume 9.5 7.4-10.4 FL Neutrophils (%) (Auto) 58 42-75 % Lymphocytes (%) (Auto) 24 12-44 % Monocytes (%) (Auto) 11 0-12 % Eosinophils (%) (Auto) 6 0-10 % Basophils (%) (Auto) 1 0-10 % Neutrophils # (Auto) 3.3 1.8-7.8 X 10^3 Lymphocytes # (Auto) 1.4 1.0-4.0 X 10^3 Monocytes # (Auto) 0.6 0.0-1.0 X 10^3 Eosinophils # (Auto) 0.3 0.0-0.3 10^3/uL Basophils # (Auto) 0.1 0.0-0.1 10^3/uL Prothrombin Time 12.4 12.2-14.7 SEC INR Comment 0.9 0.8-1.4 Activated Partial Thromboplast Time 26 24-35 SEC D-Dimer 0.40 0.00-0.49 UG/ML Sodium Level 138 135-145 MMOL/L Potassium Level 4.5 3.6-5.0 MMOL/L Chloride Level 100 98-107 MMOL/L Carbon Dioxide Level 29 21-32 MMOL/L Anion Gap 9 5-14 MMOL/L Blood Urea Nitrogen 26 H 7-18 MG/DL Creatinine 1.31 H 0.60-1.30 MG/DL Estimat Glomerular Filtration Rate 57 BUN/Creatinine Ratio 20 Glucose Level 80 70-105 MG/DL Calcium Level 9.6 8.5-10.1 MG/DL Total Bilirubin 0.3 0.1-1.0 MG/DL Aspartate Amino Transf (AST/SGOT) 30 5-34 U/L Alanine Aminotransferase (ALT/SGPT) 63 H 0-55 U/L Alkaline Phosphatase 169 H 40-136 U/L Troponin I < 0.30 <0.30 NG/ML Total Protein 7.7 6.4-8.2 GM/DL Albumin 4.1 3.2-4.5 GM/DL Serum Alcohol < 10 <10 MG/DL Urine Color YELLOW Urine Clarity SLIGHTLY CLOUDY Urine pH 8 5-9 Urine Specific [place] 1.015 L 1.016-1.022 Urine Protein 1+ H NEGATIVE Urine Glucose (UA) NEGATIVE NEGATIVE Urine Ketones NEGATIVE NEGATIVE Urine Nitrite NEGATIVE NEGATIVE Urine Bilirubin NEGATIVE NEGATIVE Urine Urobilinogen NORMAL NORMAL MG/DL Urine Leukocyte Esterase 1+ H NEGATIVE Urine RBC (Auto) NEGATIVE NEGATIVE Urine RBC 2-5 H /HPF Urine WBC 10-25 H /HPF Urine Squamous Epithelial Cells RARE /HPF Urine Crystals PRESENT H /LPF Urine Amorphous Sediment MOD MAREK PHOSPHATE H /LPF Urine Bacteria TRACE /HPF Urine Casts NONE /LPF Urine Mucus NEGATIVE /LPF Urine Culture Indicated YES Urine Opiates Screen NEGATIVE NEGATIVE Urine Oxycodone Screen NEGATIVE NEGATIVE Urine Methadone Screen NEGATIVE NEGATIVE Urine Propoxyphene Screen NEGATIVE NEGATIVE Urine Barbiturates Screen NEGATIVE NEGATIVE Ur Tricyclic Antidepressants Screen NEGATIVE NEGATIVE Urine Phencyclidine Screen NEGATIVE NEGATIVE Urine Amphetamines Screen NEGATIVE NEGATIVE Urine Methamphetamines Screen NEGATIVE NEGATIVE Urine Benzodiazepines Screen POSITIVE H NEGATIVE Urine Cocaine Screen NEGATIVE NEGATIVE Urine Cannabinoids Screen NEGATIVE NEGATIVE Micro Results Microbiology 04/04/17 Urine Culture - Final, Complete Enterococcus Faecalis My Orders Orders - BILL APONTE MD Cbc With Automated Diff (04/04/17 10:40) Protime With Inr (04/04/17 10:40) Partial Thromboplastin Time (04/04/17 10:40) Comprehensive Metabolic Panel (04/04/17 10:40) Fibrin Degradation Products (04/04/17 10:40) Troponin I (04/04/17 10:40) Ua Culture If Indicated (04/04/17 10:40) Chest 1 View, Ap/Pa Only (04/04/17 10:40) Ekg Tracing (04/04/17 10:40) Accucheck Stat ONCE (04/04/17 10:40) Saline Lock/Iv-Start (04/04/17 10:40) Saline Lock/Iv-Start (04/04/17 10:40) Vital Signs - Stroke Q15M (04/04/17 10:40) Ct Head Wo-R/O Stroke (04/04/17 10:40) O2 (04/04/17 10:40) Intake & Output 06,14,22 (04/04/17 10:40) Monitor-Rhythm Ecg Trace Only (04/04/17 10:40) Dysphagia Screening Tool (04/04/17 10:40) Post Thrombolytic Adminstratio (04/04/17 10:40) Alcohol (04/04/17 10:40) Drug Screen Stat (Urine) (04/04/17 10:40) Labetalol Injection (Normodyne Injection (04/04/17 10:45) Fentanyl Injection (Sublimaze Injection (04/04/17 11:15) Ns Iv 1000 Ml (Sodium Chloride 0.9%) (04/04/17 12:29) Diphenhydramine Tablet (Benadryl Tablet) (04/04/17 12:30) Magnesium 1 Gm/100 Ml Ivpb (Magnesium [place] (04/04/17 12:30) Magnesium 1 Gm/100 Ml Ivpb (Magnesium [place] (04/04/17 12:30) Prochlorperazine Injection (Compazine In (04/04/17 12:30) Ketorolac Injection (Toradol Injection) (04/04/17 12:30) Ketorolac Injection (Toradol Injection) (04/04/17 12:45) Urine Culture (04/04/17 12:10) Medications Given in ED Vital Signs/I&O Vital Sign - Last 12Hours 04/04/17 04/04/17 04/04/17 04/04/17 10:23 11:32 12:09 13:06 Temp 98.6 Pulse 72 63 60 58 Resp 18 18 18 18 B/P (MAP) 207/104 160/86 135/80 Pulse Ox 95 94 92 98 O2 Delivery Room Air Room Air Room Air Blood Pressure Mean: 110 Progress Note #1: Time: 11:59 Progress Note During initial assessment patient stated he was having some right arm and numbness. He was found to have a drift in the right upper and lower extremity and some weakness on the right side of the face. Stroke activation was paged. CT of the head was unremarkable. Blood pressures were trending down. He was given fentanyl for management of his headache which he stated was 10/10. Pain is improving and he now rates it as 6/10. Neurologic symptoms seem to be improving. In particular, his facial weakness on the right seems to be improving. Patient is more talkative now and feeling better. Last systolic blood pressure was 168. I reviewed the case with Dr. Rabago and Dr. Lao. 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 Patient reports good compliance with his medications. He denies any recent substance abuse. UA is still pending at this time. Patient was placed on Topamax at one point by the neurologist at [facility]. However, he quit taking it because of side effects. I question possible atypical migraine as his symptoms seem to start with headache and hypertension. It is possible that his hypertension is caused by the headache with atypical neurologic symptoms to follow as a result of atypical migraine progression. I have called the stroke hotline at [facility] and have left a message for the neurologist. Progress Note #2: Progress Note Case was thoroughly reviewed with the [facility] stroke neurologist on-call, Dr. Cheng. After review of all of the details including current and prior imaging studies, he agrees patient is likely experiencing complex migraines. It is my belief that the hypertension is secondary to his headache pain. Admission was considered. However, on reassessment patient's pain was gone and blood pressure had normalized. Neurologic deficits resolved as well. I discussed a plan for future episodes with the neurologist. This involves a medication cocktail to be received in the ER setting for treatment of atypical migraine. I did give the patient a list of medications to request based on my conversation with the neurologist. Those medications are as follows: IV hydration Compazine 10 mg IV Benadryl 25 mg by mouth Magnesium sulfate 2 g IV Toradol 15-30 mg IV This cocktail can be repeated 2 or 3 times if needed. Depakote 500 mg IV may be added on the second or third round if necessary The neurologist also recommended treatment with amitriptyline for migraine prevention and follow up with the neurology clinic at [facility]. Patient was given a dose of Toradol to help prevent rebound headache. Dr. Lao and Dr. Rabago were updated with patient's condition. ECG Initial ECG Impression Date: Apr 04, 2017 Initial ECG Impression Time: 11:00 Initial ECG Rate: 65 Initial ECG Rhythm: Normal Sinus Initial ECG Intervals: Normal Initial ECG Impression: Normal Comment Normal sinus rhythm without ST elevation or depression. No abnormal intervals or axis deviation. Diagnostic Imaging Diagonstic Imaging: Xray Plain Films/CT/US/NM/MRI: chest Comments Chest x-ray viewed by me and report reviewed. See report below: NAME: EZEQUIEL VITALE MED REC#: [id number] PT STATUS: REG ER : 1960 PHYSICIAN: BILL APONTE MD ADMIT DATE: 04/04/17/ER Signed Date of Exam: 04/04/17 CHEST 1 VIEW, AP/PA ONLY EXAMINATION: Portable upright radiograph of the chest. INDICATION: Hypertension. FINDINGS: The lungs are clear. The heart size is normal. No effusion or pneumothorax. The mediastinum and juvencio appear unremarkable. IMPRESSION: Unremarkable exam. Dictated by: Dictated on workstation # [id number] Dict: 04/04/17 1206 Trans: 04/04/17 1245 Interpreted by: ROSELYN ARNETT MD Electronically signed by: ROSELYN ARNETT MD 04/04/17 1245 Diagonstic Imaging: CT Plain Films/CT/US/NM/MRI: head Comments CT head viewed by me and report reviewed. See report below: NAME: EZEQUIEL VITALE MED REC#: [id number] PT STATUS: REG ER : 1960 PHYSICIAN: BILL APONTE MD ADMIT DATE: 04/04/17/ER Signed Date of Exam: 04/04/17 CT HEAD WO-R/O STROKE EXAM: CT head. TECHNIQUE: Noncontrast axial images of the brain were obtained. INDICATION: Right-sided weakness and numbness. FINDINGS: There is no intracranial hemorrhage, edema or mass effect. The brain parenchyma appears unremarkable. No hydrocephalus. The visualized portions of the orbits and paranasal sinuses appear unremarkable. Nasal septal deviation to the right side is seen however. IMPRESSION: Unremarkable study. Dictated by: Dictated on workstation # [id number] Dict: 04/04/17 1051 Trans: 04/04/17 105 Interpreted by: ROSELYN ARNETT MD Electronically signed by: ROSELYN ARNETT MD 04/04/17 105 Departure Impression Impression: Primary Impression: Atypical migraine Additional Impressions: Hypertensive urgency Right sided weakness Disposition: 01 HOME, SELF-CARE Condition: Improved Departure-Patient Inst. Referrals: ANDRES RABAGO DO (PCP/Family) Primary Care Physician Patient Instructions: Migraine Headache (DC) Add. Discharge Instructions: Continue your medications as previously prescribed. Add amitriptyline at bedtime as prescribed. For future episodes of possible atypical migraine, presented to the emergency room and suggest the following cocktail of medications: IV hydration Compazine 10 mg IV Benadryl 25 mg by mouth Magnesium sulfate 2 g IV Toradol 15-30 mg IV This cocktail can be repeated 2 or 3 times if needed. Depakote 500 mg IV may be added on the second or third round if necessary. Follow-up with Dr. Lao and Dr. Rabago soon as possible. Also follow-up with neurology as soon as possible. All discharge instructions reviewed with patient and/or family. Voiced understanding. Scripts Amitriptyline HCl (Amitriptyline HCl) 25 Mg Tablet 25 MG PO HS, #30 TAB Prov: BILL APONTE MD 04/04/17 Copy Copies To 1: ANDREA LAO MD Copies To 2: ANDRES RABAGO JOSHUA T MD Apr 04, 2017 12:04
[2017-04-04 12:09] VITALS: BP 135/80
--- NOTE | 2017-04-04 12:14 | Diagnostic Imaging Report ---
EXAMINATION: Portable upright radiograph of the chest. INDICATION: Hypertension. FINDINGS: The lungs are clear. The heart size is normal. No effusion or pneumothorax. The mediastinum and juvencio appear unremarkable. IMPRESSION: Unremarkable exam. Dictated by: Dictated on workstation # [id number]
[2017-04-04 12:19] LABS: BILIRUBIN,URINE NEGATIVE (NEGATIVE); KETONES,URINE NEGATIVE (NEGATIVE); LEUKOCYTE ESTERASE ,URINE 1+ (NEGATIVE); NITRITE,URINE NEGATIVE (NEGATIVE); PH,URINE 8 (5-9); PROTEIN,URINE 1+ (NEGATIVE); UROBILINOGEN,URINE NORMAL (NORMAL)
[2017-04-04] MEDS ORDERED: NS IV 1000 ML 1,000 ML IV ONE (12:29)
[2017-04-04] MEDS ORDERED: MAGNESIUM 1 GM/100 ML IVPB 100 ML IV ONE ×2 (12:30)
[2017-04-04] MEDS ORDERED: KETOROLAC 30 MG/ML VIAL IVP ONE ×2 (12:30→12:45)
[2017-04-04] MEDS ORDERED: PROCHLORPERAZINE 10 MG/2ML INJ (COMPAZINE) IV ONE (12:30)
[2017-04-04] MEDS ORDERED: diphenhydrAMINE 25 MG TAB (BENADRYL) PO ONE (12:30)
[2017-04-04 12:47] LABS: SQUAMOUS EPITHELIAL CELL,UR RARE /HPF
[2017-04-04] MEDS ORDERED: AMIT25TA9 PO (13:01)
[2017-04-04 13:06] VITALS: BP 140/90
== END 2017-04-04 13:13 | disposition home or self-care (01) ==
LOC: EDUNIT# 10:04 → ER 10:06
DX: G43.909 Migraine, unspecified, not intractable, without status migrainosus (principal); I16.0 Hypertensive urgency; R53.1 Weakness; K21.9 Gastro-esophageal reflux disease without esophagitis; F32.9 Major depressive disorder, single episode, unspecified; I25.10 Atherosclerotic heart disease of native coronary artery without angina pectoris; I25.2 Old myocardial infarction; E78.00 Pure hypercholesterolemia, unspecified; I10 Essential (primary) hypertension; Z86.718 Personal history of other venous thrombosis and embolism; Z87.11 Personal history of peptic ulcer disease; Z87.440 Personal history of urinary (tract) infections; Z87.891 Personal history of nicotine dependence; Z95.5 Presence of coronary angioplasty implant and graft; Z79.82 Long term (current) use of aspirin; Z82.49 Family history of ischemic heart disease and other diseases of the circulatory system
CPT/HCPCS: 36415; 70450; 71010; 80053; 80306; 80320; 81000; 84484; 85025; 85379; 85610; 85730; 87077; 87088; 87186; 93005; 93041

== ENCOUNTER 2017-04-10 15:00 | Emergency (ER) | payer SELFPAY ==
[~2017-04-10] VITALS: Ht 175.3 cm; Wt 80.7 kg
[~2017-04-10 15:00] MED LIST changes: +AMIT25TA9 PO
--- OUTSIDE RECORDS SUMMARY | 2017-04-10 15:05 | XMS REPORT | Continuity of Care Document ---
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 Continuous Miner Operator Name Role Phone [employer] Unavailable Unavailable Problems Medications Allergies, Adverse Reactions, Alerts Immunizations Results Vital Signs Encounters Location Location Details Encounter Type Encounter Number Reason For Visit Attending Provider ADM Date DC Date Status Source INPATIENT [id number] JACKELYN MURDOCK 03/06/20172016 Active [facility] OUTPATIENT [id number] ROME TRINH 04/07/2017 Active [facility] O ROME TRINH Active [facility] Procedures Plan of Care Social History Assessment and Plan Family History Value Date Source Advance Directives Order Name Results Value Date Source
--- OUTSIDE RECORDS SUMMARY | 2017-04-10 15:06 | XMS REPORT | Encounter Summary ---
Author Author [facility] Organization [facility] Address Unknown Phone Unavailable Care Team Providers Care Glass Engraver Name Role Phone PCP Unavailable Encounter Details Date Type Department Care Team Description 03/05/2017 [facility] [address] [place] [address] Social History Tobacco Use Types [...]
--- OUTSIDE RECORDS SUMMARY | 2017-04-10 15:06 | XMS REPORT | Encounter Summary ---
Author Author [facility] Organization [facility] Address Unknown Phone Unavailable Care Team Providers Care Preschool Associate Teacher Name Role Phone PCP Unavailable Encounter Details Date Type Department Care Team Description 03/05/2017 [facility] [address] [place] [address] Social History Tobacco Use Types [...]
--- OUTSIDE RECORDS SUMMARY | 2017-04-10 15:06 | XMS REPORT | Encounter Summary ---
Author Author [facility] Organization [facility] Address Unknown Phone Unavailable Care Team Providers Care Psychiatric Orderly Name Role Phone PCP Unavailable Reason for Visit * Reason Comments General Question Encounter Details Date Type Department Care Team Description 03/15/2017 Telephone [facility] Melquiades Byrne DO General Question Physicians - Neurology [address] [facility] [address] [place] [address] [place], [place] [phone] [id number] [phone] Social History Tobacco Use Types Packs/Day Years [...]
--- OUTSIDE RECORDS SUMMARY | 2017-04-10 15:06 | XMS REPORT | Encounter Summary ---
Author Author [facility] Organization [facility] Address Unknown Phone Unavailable Care Team Providers Care Clock Assembler Name Role Phone PCP Unavailable Encounter Details Date Type Department Care Team Description 03/05/2017 [facility] [address] [place] [address] Social History Tobacco Use Types [...]
--- OUTSIDE RECORDS SUMMARY | 2017-04-10 15:06 | XMS REPORT | Clinical Summary ---
Author Author [facility] Organization [facility] Address Unknown Phone Unavailable Care Team Providers Care Golf Starter And Ranger Name Role Phone PCP Unavailable Source Comments Some departments are not documenting in the electronic medical record. If you do not see the information that you expected, contact Release of Information in the Health Information Management department at [phone] for further assistance in locating additional records.[facility] Allergies Active Allergy Reactions Severity Noted [...] for Chest Pain. Max of 3 of [place] artery of tablets, call 911. 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 [address] [place] [address] * CANNABINOIDS-URINE RANDOM (03/06/2017 1:44 AM) Only [...] 50 NG/ML Specimen Performing Laboratory Urine [facility] [address] [place] [address] * BENZODIAZEPINES-URINE RANDOM (03/06/2017 1:44 AM) Only [...] BENZODIAZEPINES 200 NG/ML Specimen Performing Laboratory Urine [address] [address] * BARBITURATES-URINE RANDOM (03/06/2017 1:44 AM) Only [...] 200 NG/ML Specimen Performing Laboratory Urine [facility] [address] [place] [address] * AMPHETAMINES-URINE RANDOM (03/06/2017 1:44 AM) Only [...] AMPHETAMINES 1000 NG/ML Specimen Performing Laboratory Urine [facility] [address] [place] [address] * PROTIME INR (PT) (03/06/2017 1:22 AM) Only the most recent of 2 results within the time period is included. Component Value Ref Range INR 1.0 0.8 - 1.2 Specimen Performing Laboratory Blood MAIN LAB [address] [place], [place] [id number] * CBC (03/06/2017 1:22 AM) Only the [...] [place] Specimen Performing Laboratory Blood MAIN LAB [address] [place], [place] [id number] * PHOSPHORUS (03/06/2017 1:22 AM) Only the most recent of 3 results within the time period is included. Component Value Ref Range Phosphorus 3.8 2.0 - 4.0 MG/DL Specimen Performing Laboratory Blood MAIN LAB [address] [place], [place] [id number] * MAGNESIUM (03/06/2017 1:22 AM) Only the most recent of 3 results within the time period is included. Component Value Ref Range Magnesium 1.8 1.6 - 2.6 mg/dL Specimen Performing Laboratory Blood MAIN LAB [address] [place] [address] * ALCOHOL LEVEL (03/06/2017 1:22 AM) Component Value Ref Range Alcohol <10 MG/DL Specimen Performing Laboratory Blood MAIN LAB [address] [place] [address] * COMPREHENSIVE METABOLIC PANEL (03/06/2017 1:22 AM) [...] Performing Laboratory Blood [facility] MAIN [facility] [address] [place] [address] * CT BRAIN PERF (03/06/2017 1:04 AM) [...] stenosis. There is origin of the right TRUCK HOP. The anterior, middle, and posterior cerebral arteries [...] stenosis. There is origin of the right TRUCK HOP. The anterior, middle, and posterior cerebral arteries [...] M.D. on 03/06/2017 1:25 AM. Dictated by Jni Palm M.D. on 03/06/2017 1:08 AM. * [...] stenosis. There is origin of the right TRUCK HOP. The anterior, middle, and posterior cerebral arteries [...] stenosis. There is origin of the right TRUCK HOP. The anterior, middle, and posterior cerebral arteries [...] M.D. on 03/06/2017 1:25 AM. Dictated by iJn Palm M.D. on 03/06/2017 1:08 AM. Narrative [...] stenosis. There is origin of the right TRUCK HOP. The anterior, middle, and posterior cerebral arteries [...] stenosis. There is origin of the right TRUCK HOP. The anterior, middle, and posterior cerebral arteries [...] Performing Laboratory Blood [facility] MAIN [facility] [address] [place] [address] * SWALLOW MOTION SERIES (01/13/2017 8:48 AM) [...] Blood [facility] MAIN [facility] [address] [place] [address] * CTA CHEST WO/W CONTRAST+POST IMPRESSION (01/12/2017 [...] Specimen Performing Laboratory [facility] MAIN [facility] [address] [place] [address] * TROPONIN-I (01/12/2017 11:48 AM) Only the most recent of 3 results within the time period is included. Component Value Ref Range Troponin-I 0.01 0.0 - 0.05 NG/ML Specimen Performing Laboratory Blood MAIN LAB [address] [place] [address] * LIPID PROFILE (01/12/2017 11:48 AM) Component [...] Specimen Performing Laboratory Blood MAIN LAB [address] [place] [address] * 2-D + DOPPLER ECHOCARDIOGRAM (01/12/2017 8:54 AM) Component Value Ref Range BSA 1.86 m2 Referring Provider Dexter Hernandes CV ECHO PV GRAPPLE OPERATOR Floor RN LVIDD 3.3 4.2 - [...] Specimen Performing Laboratory Blood MAIN LAB [address] [place] [address] * HEMOGLOBIN A1C (01/12/2017 7:34 AM) Component Value Ref Range Hemoglobin A1C 5.5 4.0 - 6.0 % Comment: The ADA recommends that most patients with type 1 and type 2 diabetes maintain an A1c level <7%. Specimen Performing Laboratory Blood MAIN LAB [address] [place] [address] * CT CHEST EXTERNAL IMAGING (01/12/2017 12:15 AM) Narrative This order has been auto finalized and does not contain a result. from Last 3 Months
--- OUTSIDE RECORDS SUMMARY | 2017-04-10 15:06 | XMS REPORT | Encounter Summary ---
Author [facility] Address Unknown Phone Unavailable Care Team Providers Care Medical Technologist Generalist Name Role Phone PCP Unavailable Encounter Details Date Type Department Care Team Description 03/07/2017 Ancillary Rad Outpatient, Radiologist Diagnosis unknown Orders [address] [place] [address] Social History Tobacco Use Types Packs/Day Years [...]
--- OUTSIDE RECORDS SUMMARY | 2017-04-10 15:06 | XMS REPORT | Encounter Summary ---
Author Author [facility] Organization [facility] Address Unknown Phone Unavailable Care Team Providers Care Marketing Proposal Coordinator Name Role Phone PCP Unavailable Encounter Details Date Type Department Care Team Description 03/06/2017 Procedure [facility] [address] [place] [address] Social History Tobacco Use Types [...]
--- OUTSIDE RECORDS SUMMARY | 2017-04-10 15:07 | XMS REPORT | Encounter Summary ---
Author Author [facility] Organization [facility] Address Unknown Phone Unavailable Care Team Providers Care Brake Lining Finisher Asbestos Name Role Phone PCP Unavailable Encounter Details Date Type Department Care Team Description 03/05/2017 Hospital [facility] Encounter Hospital Radiology [address] [place], [place] [id number] Social History Tobacco Use Types Packs/Day Years [...] for Chest Pain. Max of 3 of [place] artery of tablets, call 911. [place] heart with stable angina pectoris (HCC), Essential [...]
--- OUTSIDE RECORDS SUMMARY | 2017-04-10 15:07 | XMS REPORT | Encounter Summary ---
Author Author [facility] Organization [facility] Address Unknown Phone Unavailable Care Team Providers Care Chemical Equipment Controller Name Role Phone PCP Unavailable Encounter Details Date Type Department Care Team Description 03/05/2017 Hospital [facility] Encounter Hospital Radiology [address] [place], [place] [id number] Social History Tobacco Use Types Packs/Day Years [...] for Chest Pain. Max of 3 of [place] artery of tablets, call 911. [place] heart with stable angina pectoris (HCC), Essential [...]
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
--- OUTSIDE RECORDS SUMMARY | 2017-04-10 15:08 | XMS REPORT | Encounter Summary ---
Author Author [facility] Organization [facility] Address Unknown Phone Unavailable Care Team Providers Care Dinkey Driver Name Role Phone PCP Unavailable Encounter Details Date Type Department Care Team Description 01/12/2017 Procedure Pass [facility]science [facility] E[facility] ICU [address] [facility] [place] [address] Social History Tobacco Use Types [...]
--- OUTSIDE RECORDS SUMMARY | 2017-04-10 15:08 | XMS REPORT | Encounter Summary ---
Author Author [facility] Organization [facility] Address Unknown Phone Unavailable Care Team Providers Care Compensation And Benefits Advisor Name Role Phone PCP Unavailable Encounter Details Date Type Department Care Team Description 01/12/2017 Procedure Pass Neuroscience & ENT ICU [address] [facility] [place] [address] Social History Tobacco Use Types [...]
--- OUTSIDE RECORDS SUMMARY | 2017-04-10 15:08 | XMS REPORT | Encounter Summary ---
Author Author [facility] Organization [facility] Address Unknown Phone Unavailable Care Team Providers Care Cook [employer] Cafeteria Name Role Phone PCP Unavailable Encounter Details Date Type Department Care Team Description 01/12/2017 Procedure Pass Neuroscience & ENT ICU [address] [facility] [place] [address] Social History Tobacco Use Types [...]
--- OUTSIDE RECORDS SUMMARY | 2017-04-10 15:08 | XMS REPORT | Encounter Summary ---
Author Author [facility] Organization [facility] Address Unknown Phone Unavailable Care Team Providers Care Equalizer Operator Name Role Phone PCP Unavailable Encounter Details Date Type Department Care Team Description 01/12/2017 Procedure Pass Neuroscience & ENT ICU [address] [facility] [place] [address] Social History Tobacco Use Types [...]
--- OUTSIDE RECORDS SUMMARY | 2017-04-10 15:08 | XMS REPORT | Encounter Summary ---
Author Author [facility] Organization [facility] Address Unknown Phone Unavailable Care Team Providers Care Return To Factory Clerk Name Role Phone PCP Unavailable Encounter Details Date Type Department Care Team Description 01/12/2017 Hospital [facility] Encounter Hospital Radiology [address] [place], [place] [id number] Social History Tobacco Use Types Packs/Day Years [...] for Chest Pain. Max of 3 of [place] artery of tablets, call 911. [place] heart with stable angina pectoris (HCC), [...]
--- OUTSIDE RECORDS SUMMARY | 2017-04-10 15:08 | XMS REPORT | Encounter Summary ---
Author Author [facility] Organization [facility] Address Unknown Phone Unavailable Care Team Providers Care Retail Sales Associate Seasonal Name Role Phone PCP Unavailable Encounter Details Date Type Department Care Team Description 01/12/2017 Hospital [facility] Encounter Hospital Radiology [address] [place], [place] [id number] Social History Tobacco Use Types Packs/Day Years [...] for Chest Pain. Max of 3 of [place] artery of tablets, call 911. [place] heart with stable angina pectoris (HCC), Essential [...]
--- OUTSIDE RECORDS SUMMARY | 2017-04-10 15:08 | XMS REPORT | Encounter Summary ---
Author Author [facility] Organization [facility] Address Unknown Phone Unavailable Care Team Providers Care Branch Associate Name Role Phone PCP Unavailable Encounter Details Date Type Department Care Team Description 01/12/2017 Hospital Neuroscience [facility] ENT ICU Julianna Baer, [place] - Encounter [id number] 01/14/2017 [place] [address] [address] [phone] [address] [place] [address] [phone] Yair Painter MD [address] [place] [address] [phone] Girish Field MD [address] [place] [address] [phone] Social History Tobacco Use Types Packs/Day Years [...] artery disease 08/09/2016 Coronary artery disease of [place] artery of [place] heart with stable angina pectoris (HCC) 08/09/2016 07/29/16: heart cath ([address]ia [place], [place]) - total occlusion of the right [...] apahsia. He was initially presented to the [place] ED with chest pain. He had [...] Problems * (Principal)Weakness Coronary artery disease of [place] artery of [place] heart with stable angina pectoris (HCC) Essential [...] home, please feel free to contact the [employer] at [phone]. Your last blood pressure was BP: 164/84, [...] cause. Return Appointment For Neurology scheduling contact [phone] For Neurosurgery appointments call [phone] Questions About Your Stay STANDARD For questions or concerns regarding your hospital stay: -DURING BUSINESS HOURS (8:00 AM - 4:30 PM): Call [phone] and ask to be transferred to your discharge attending physician. -AFTER BUSINESS HOURS (4:30 PM - 8:00 AM, on weekends, or holidays): Call [phone] and ask the ion exchange operator to page the on-call doctor for the discharge attending physician. Discharging attending physician: GIRISH TELLEZ [[id number]] Low Fat / Low Cholesterol Diet Your goal is to limit the amount of saturated and trans fats in your diet. Keep track of how much cholesterol you eat and limit the total amount to 200mg ( milligrams) a day. If you have questions about your diet after you go home, you can call a dietitian at [phone]. Cardiac Diet Limiting unhealthy fats and cholesterol [...] Fax Associated Diagnoses: Coronary artery disease of [place] artery of [place] heart with stable angina pectoris (HCC); Essential [...] for Chest Pain. [place] of 3 of [place] artery of tablets, call 911. [place] heart with stable angina pectoris (HCC), Essential [...] Weakness Active Problems: Coronary artery disease of [place] artery of [place] heart with stable angina pectoris (HCC) Essential [...] apahsia. He was initially presented to the [place], [place] ED with chest pain. He had [...] 5.5 - ECHO unremarkable. Plan: - Resumed HIM TECH ASA and Plavix - Started on Simvastatin [...] Counseled to quit drugs - Cleared by PT/OT/SERVICE DESK DIRECTOR/Rehab - s/p video swallow, now cleared by speech. Bradycaria - Cardiology consulted and following for bradycardia, . > HIM TECH BB held per cardiology HTN > restarted [...] his R side. He reports eating a L8 SmartLight breakfast sandwich this morning without difficulty. He [...] for: PHART, PCO2A, PO2ART, HCO3A, BASEEXA, BASEDEFA, [id number] Lab Results Component Value Date HGB 12.1 [...] 0.9 01/12/2017 No results found for: TSH, FMWAT4E, CORTRAN Lab Results Component Value Date CHOL 231 (H) 01/12/2017 TRIG 216 (H) 01/12/2017 HDL 35 (L) 01/12/2017 LDL 152 (H) 01/12/2017 VLDL 43 01/12/2017 No results found for: VANRAN, VANPK, VANTR No results found for: CYCLOSPOR, TACROLIMUS, FREEPHENY Point of Care Testing: (Last 24 hours): Glucose: (!) 106 Radiology and Other Diagnostics Review: reviewed Sen Monterroso Neurology Resident PGY 2 Pager [phone] * Aye Hall MS,CCC-SERVICE DESK DIRECTOR - 01/14/2017 11:45 AM CDT SPEECH-LANGUAGE PATHOLOGY NO TREATMENT NOTE Chart reviewed and made contact with RN. Pt tolerating diet and PO meds well with no overt s/s aspiration. Speech, swallow, cognition appear to have returned to baseline. Do not anticipate ongoing SERVICE DESK DIRECTOR needs. Therapist: Aye Hall MS,CCC-SERVICE DESK DIRECTOR [phone] Date: 01/14/2017 * Albania Díaz MD - 01/13/2017 2:51 PM CDT Formatting of this note may be different from the original. Cardiology Progress Note Today's Date: 01/13/2017 Name: Kaz Restrepo Admission Date: 01/12/2017 LOS: 1 day Active Hospital Problems Active Problems: Coronary artery disease of [place] artery of [place] heart with stable angina pectoris (HCC) Essential hypertension Mixed hyperlipidemia GERD (gastroesophageal reflux disease) Chest pain Tobacco abuse Stroke (HCC) GERI (acute kidney injury) ([facility]) This is a 56-year-old male [...] page with questions. After 5PM please call criminal intelligence specialist regional coordinator. Tuesday - Tuesday 8AM-5PM please call Cardiology consult pager. Pt was seen and discussed with Dr. Charlie MD. Albania Díaz MD PGY-1 Internal Medicine Pager [phone] __ Subjective: Kaz Restrepo is a 56 [...] carvedilol. We may be seeing resolution of MANNEQUIN WIG MAKER disorder driving increased vagal tone. Also possible [...] if we may assist. Catrachito Guerra M.D. [phone] * Cadence Walsh, PT - 01/13/2017 1:54 [...] Assessment/Plan: Active Problems: Coronary artery disease of [place] artery of [place] heart with stable angina pectoris (HCC) Essential hypertension Mixed hyperlipidemia GERD (gastroesophageal reflux disease) Chest pain Tobacco abuse Stroke (HCC) GERI (acute kidney injury) ([facility]) Kaz Restrepo is a 56 y.o. male with h/o HTN, HLD, Substance abuse, tobacco use , CAD s/p stents presented with right sided weakness, right facial droop and apahsia. He was initially presented to the [place], [place] ED with chest pain. He had [...] 5.5 - ECHO unremarkable. Plan: - Resumed HIM TECH ASA and Plavix - Started on Simvastatin 40 in ICU. - Continue PT/OT/SERVICE DESK DIRECTOR/Rehab - s/p video swallow - on mechanical [...] for: PHART, PCO2A, PO2ART, HCO3A, BASEEXA, BASEDEFA, [id number] Lab Results Component Value Date HGB 12.4 [...] 0.9 01/12/2017 No results found for: TSH, KXFSF8D, CORTRAN Lab Results Component Value Date CHOL 231 (H) 01/12/2017 TRIG 216 (H) 01/12/2017 HDL 35 (L) 01/12/2017 LDL 152 (H) 01/12/2017 VLDL 43 01/12/2017 No results found for: VANRAN, SHERRYPK, VANTR No results found for: CYCLOSPOR, TACROLIMUS, FREEPHENY Point of Care Testing: (Last 24 hours): Glucose: 90 Radiology and Other Diagnostics Review: reviewed Nataliya Barajas MD, MPH Neurology Resident PGY 4 Pager [phone] * Yair Pisano MD - 01/13/2017 11:27 [...] angina (HCC) 08/13/2016 Coronary artery disease of [place] artery of [place] heart with stable angina pectoris (HCC) 08/09/2016 07/29/16: heart cath ([address] - [place], [place]) - total occlusion of the right [...] event: asymptomatic bradycardia, sign out obtained from maintenance technician 3rd shift person ( nurse and [facility] physician). Patient examined: yes Objective: [...] optimize venous drainage Maintain normothermia, avoid hypoxemia, [place] appropriate osmotherapy ( i.e mannitol vs Hypertonic [...] CAD s/p stenting -asa and clopidogrel, restart HIM TECH Imdur and losartan; 5) Chest Pain - [...] at risk for aspiration. Social work and manager of case management for discharge planning and placement. Family Meeting and update: yes. Patient is able to make his or her decisions, family updated during rounds. Goals of therapy: Addressed, Patient is a full code Nurses concerns addressed. Disposition/Family: Transfer to neurology service X Yair G. Norris, MD Crematorium Operator, Department of Neurology and Neurosurgery Pager: [phone] Date: 01/13/2017 X * Mai Pedersen, OT - 01/13/2017 11:13 AM CDT Formatting of this note may be different from the original. OCCUPATIONAL THERAPY ASSESSMENT/DISCHARGE NOTE Patient Name: Kaz Restrepo Room/Bed: [address] [place] [address] Admitting Diagnosis: acute stroke Stroke (HCC) Past Medical History: Diagnosis Date Chest pain 08/09/2016 Coronary artery disease 08/09/2016 Coronary artery disease of [place] artery of [place] heart with stable angina pectoris (HCC) 08/09/2016 07/29/16: heart cath ([address]ia [place], [place]) - total occlusion of the right [...] Pedersen OT Date: 01/13/2017 * Aye Hall MS,CCC-SERVICE DESK DIRECTOR - 01/13/2017 9:07 AM CDT SPEECH-LANGUAGE PATHOLOGY [...] PO meds as tolerated Excellent oral care SERVICE DESK DIRECTOR will follow for ongoing assessment of motor [...] NTG x 3. Taken by herb to [facility] ED. BP slightly elevated on arrival. Treated with sublingual and topical NTG. UDS + amphetamine. Developed right facial droop, aphasia or dysarthria, flaccid right hemiplegia, and left-sided weakness. Presumed to have acute stroke. CT head w/o contrast negative for hemorrhage. Treated with tPA and transferred to Stroke Center at [facility]. Neurologically improved when compared with description [...] Patient Response: Verbalized Understanding Therapist: Aye Hall MS,CCC-SERVICE DESK DIRECTOR [phone] Date: 01/13/2017 * Zully Castelan APRN-DIRECTOR SALES - 01/13/2017 6:29 AM CDT Formatting of this note may be different from the original. Neuro Critical Care Progress Note Kaz Restrepo Admission Date: 01/12/2017 LOS: 1 day Full Code ASSESSMENT/PLAN Patient Active Problem List Diagnosis Date Noted Stroke (HCC) 01/12/2017 Unstable angina (HCC) 08/13/2016 Coronary artery disease of [place] artery of [place] heart with stable angina pectoris (HCC) 08/09/2016 07/29/16: heart cath ([address]ia [place], [place]) - total occlusion of the right [...] Plan: - LDL 152, goal < 70- HIM TECH crestor increased to 20mg today - A1C 5.5 - ASA 81 and Plavix 75mg daily- resume today - PT/OT/SERVICE DESK DIRECTOR/Rehab consulted Cardiac: hx of HTN, CAD, HLD, chest pain, bradycardia Echo 01/12: EF 65%, mild LVH, no shunt/thrombus CTA chest 01/12: negative for PE - cards consulted, appreciate recs - continue holding HIM TECH coreg 12.5mg QD - will restart imdur 60mg daily today, consider restarting losartan 50mg daily if needed for BP control - SBP goal: <160 - MAP goal > 65 - crestor daily Respiratory: H/o tobacco abuse - smoking cessation - Stable on room air - Spo2 goal >95% GI: H/O GERD, Dysphagia - Feeding: regular diet - SERVICE DESK DIRECTOR following- video swallow negative for aspiration, diet [...] radiologic and diagnostic procedures reviewed. Zully Castelan, [place] WORKER-DIRECTOR SALES Date: 01/13/[phone] I spent 45 minutes managing the care [...] Resource RN during scan. * Aye Hall, MS,CCC-SERVICE DESK DIRECTOR - 01/12/2017 11:11 AM CDT SPEECH-LANGUAGE PATHOLOGY [...] risk of aspirating bacteria in oral secretions SERVICE DESK DIRECTOR will follow for dysphagia and dysarthria management. [...] free from respiratory status changes. Therapist:Aye Hall MS,CCC-SERVICE DESK DIRECTOR [phone] Date:01/12/2017 * Marie Monroe, RT - [...] Date: 01/12/2017 [place] AC=Airway clearance AM=Aerosolized medication BA=[place] aerosol DB&C=Deep breathe & cough FEV1=Forced expiratory volume in first second) IC=Inspiratory capacity LE=Lung expansion MDI=Metered dose inhaler Neb=Nebulizer O2=Oxygen Oxim=Oximetry PEFR=Peak expiratory flow rate SPECIAL EDUCATION ASSISTANT=Rapid Response Team in this encounter H&P Notes [...] Active Problem List Diagnosis Date Noted Stroke ([facility]) 01/12/2017 Unstable angina ([facility]) 08/13/2016 Coronary artery disease of [place] artery of [place] heart with stable angina pectoris ([facility]) 08/09/2016 07/29/16: heart cath ([place], [place]) - total occlusion of the right [...] new events noted, sign out obtained from maintenance technician 3rd shift person ( nurse and [facility] physician). Patient examined: yes Objective: [...] optimize venous drainage Maintain normothermia, avoid hypoxemia, [place] appropriate osmotherapy ( i.e mannitol vs Hypertonic [...] at risk for aspiration. Social work and manager of case management for discharge planning and placement. Family Meeting and update: yes. Patient is able to make his or her decisions, family updated during rounds. Goals of therapy: Addressed, Patient is a full code Nurses concerns addressed. Disposition/Family: Continue ICU care due to # 1 X Yair Pisano MD Curing Press Maintainer, Department of Neurology and Neurosurgery Pager: [phone] Date: 01/12/2017 X * Carlene Rodriguez MD - 01/12/2017 8:17 AM CDT Formatting of this note may be different from the original. Neuro Critical Care History and Physical Kaz Currie Restrepo Admission Date: 01/12/2017 LOS: 0 days Full Code ASSESSMENT/PLAN Patient Active Problem List Diagnosis Date Noted Stroke ([facility]) 01/12/2017 Unstable angina ([facility]) 08/13/2016 Coronary artery disease of [place] artery of [place] heart with stable angina pectoris ([facility]) 08/09/2016 07/29/16: heart cath ([place], [place]) - total occlusion of the right [...] ASA 81 and Plavix 75mg tomorrow - PT/OT/SERVICE DESK DIRECTOR/Rehab consulted - f/u on UDS MRI 01/12 [...] hrs GI: stable - Feeding: NPO - SERVICE DESK DIRECTOR consulted to assess for dysphagia - neurosurgery [...] facial droop and apahsia. He is from [place]. Earlier today, at 1:20 AM in the [...] artery disease 08/09/2016 Coronary artery disease of [place] artery of [place] heart with stable angina pectoris (HCC) 08/09/2016 07/29/16: heart cath ([place]ia [place], [place]) - total occlusion of the right [...] Vent weaning trial: N/A Lines: PIVs Drains: [place] Critical Care Vitals: ICP Monitoring: Hemodynamics/Oxycalcs: Intake/Output [...] procedures reviewed. Carlene Rodriguez MD Date: 01/12/[phone] in this encounter Consult Notes * [place] [...] page with questions. After 5PM please call criminal intelligence specialist regional coordinator. Tuesday - Tuesday 8AM-5PM please call Cardiology consult pager. Pt was seen and discussed with Dr. Guerra. [place] Díaz MD PGY-1 Internal Medicine Pager [phone] History of Present Illness: Kaz Restrepo is [...] artery disease 08/09/2016 Coronary artery disease of [place] artery of [place] heart with stable angina pectoris (HCC) 08/09/2016 07/29/16: heart cath ([place], [place]) - total occlusion of the right [...] NTG x 3. Taken by herb to [facility] ED. BP slightly elevated on arrival. Treated with sublingual and topical NTG. UDS + amphetamine. Developed right facial droop, aphasia or dysarthria, flaccid right hemiplegia, and left-sided weakness. Presumed to have acute stroke. CT head w/o contrast negative for hemorrhage. Treated with tPA and transferred to Stroke Center at [facility]. Neurologically improved when compared with description [...] HR was 48 during a visit to [facility] during past few months. Medications include carvedilol, which Mr. Restrepo has been using since at least 2014. Impression: 1) Noncardiac chest pain now. No evidence of recent SC. 2) Sinus bradycardia since arrival earlier today. Normal AV conduction. Normal QRS axis and duration. Normal QT interval. Rate slows to 30 during sleep. This may be a chronic, stable phenomenon due to high vagal tone. The bradycardia may be due to an acute MANNEQUIN WIG MAKER event, such as stroke or seizure. Bradycardia [...] will follow up tomorrow. Catrachito Guerra M.D. [phone] * Mesha Mitchell MD - 01/12/2017 1:59 [...] a 56 y.o. male admitted to [facility] on 01/12/2017 with the following issues: stroke [...] 3 therapeutic disciplines, including PT, OT, and SERVICE DESK DIRECTOR. This will need to be determined prior to considering admission to acute inpatient rehabilitation. Other recommendations (bowel, bladder, skin, pain, etc): PT, OT, ST consulted to address deficits as below Impaired gait/mobility: HIM TECH pt was independent at community level without assistive device Currently requiring min assist for 5 steps to chair and transfers. Will benefit from continued work with PT to address mobility deficits Impaired ADL: HIM TECH pt was independent Will benefit from ongoing OT to address functional deficits Dysarthria Aphasia, improved Noted to initially have global aphasia. He was able to speak in brief sentences , respond appropriately, name objects, repeat, and is oriented x4. Will benefit from SERVICE DESK DIRECTOR for cognitive and speech evaluation and treatment. [...] and function. Neurogenic Bowel: Last BM documented HIM TECH. Recommend bowel regimen with Senokot 2 tabs [...] hours while supine in bed, pressure relief [id number] in seated position, PRAFOs for pressure relief [...] concerns. Mesha Mitchell MD Rehab Consult Pager: [phone] History of Present Illness Hospital Course: Mr. Restrepo is a 56 yo M with PMH of HTN, HLD, substance abuse, tobacco use, CAD s/p stent, SC 07/2016, and GERD who initially presented to [facility] in [place], [place] for chest pain and while in ED developed R hemiplegia, R facial droop, sensory deficits, and global aphasia (NIH 16). Imaging revealed L MCA stroke and tPA was administered. UDS + for methamphetamine at OSH. He was transferred to [facility] to be evaluated for further intervention. NIHSS 15 on admission to [facility]. SERVICE DESK DIRECTOR recommends patient remain NPO.Pt is working with PT and OT to address functional and mobility deficits, rehab is now consulted for post-acute rehab/placement recommendations. Past Medical History: Diagnosis Date Chest pain 08/09/2016 Coronary artery disease 08/09/2016 Coronary artery disease of [place] artery of [place] heart with stable angina pectoris (HCC) 08/09/2016 07/29/16: heart cath ([place], [place]) - total occlusion of the right [...] the first floor. 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 Current Level Of Function: PT Gait:Gait Distance: (4-5 steps to assist with transfer to chair) Gait: Assistance Level: Minimal Assist Gait: Assistive Device: Hand Hold Assist Bed Mobility/Transfers Bed Mobility: Supine to Sit: Minimal Assist Transfer Type: Sit to Stand Transfer: Assistance Level: To/From, Bed, Minimal Assist Transfer: Assistive Device: Hand Hold Assist OT SERVICE DESK DIRECTOR COGNITIVE EVALUATION SUMMARY PRAGMATICS: BEHAVIOR: AUDITORY COMPREHENSION: [...] male who was admitted upon transfer from [facility] on 01/12/2017 with acute onset right [...] complexity and goals with PT, OT, and SERVICE DESK DIRECTOR for acute inpatient rehabilitation. Recommend continued therapies, while the primary team completes stroke work-up and manages the patient, while addressing dysphagia and adequate nutritional access. Discussed with patient and will discuss with our product development coordinator and primary SWCM, although the patient is based in [place], [place]. Will continue to follow for medical [...] but will consider calling on his own. [employer] Educational Material: Accepted Chief Complaint Acute stroke [...] can be of further assistance, please call [employer] [phone] * Case Mgmt DC [place] - Martha [...] Resources RIVER called Rona with admissions at [facility] [address] to confirm pt [...] will be responsible for transporting?: diana govea [phone] Type of Residence: Private residence Patient expects to be discharged to: Private residence Was the patient receiving home care services?: No ? Expected Discharge Expected Discharge Date: 01/14/17 ? Discharge Disposition Disposition: Home with No Needs (includes custodial, [place]) ? Next Level Care -Sirisha Hurtado [...] anticipates pt to d/c to IPR near [place], [place] when medically stable. Interventions ? Support [...] $194.00 monthly through food assistance. RIVER tasked [facility] to provide pt with list of utility assistance programs in [facility]. ? Discharge Planning Discharge Planning: Inpatient Rehabilitation Pt agreeable to d/c to [facility] when medically stable. Pt reports wanting to stay at facility closer to [place], [place]. RIVER tasked [facility] to send IPR referral to [facility] [phone]. RIVER spoke with Kasandra in admissions [phone] to confirm facility received referral. [facility] reports referral is being clinically reviewed and will contact after determination is made. ? Medication Needs ? Financial Financial: [place] Referral/Follow-up, Financial Counseling Referral/Follow-up, Medicare/Medicaid/SSDI Information RIVER f/u with [place] [facility] and left voicemail regarding pt's application for [place] Medicaid and disability. RIVER spoke with Misty [...] Disposition ? Next Level Care -Sirisha Hurtado, [facility] *[id number] * Case Mgmt DC Plan - Montserrat Morales - 01/13/2017 1:49 PM CDT Request to Send Referral Received request from Sirisha Hurtado [facility] to send referral to the following facility: [facility] [address] [place] [address] Montserrat Morales Supervisor Of Research For additional assistance please contact [facility] *[id number] * Case Mgmt DC Plan - Martha Hurtado - 01/13/2017 1:46 PM CDT Formatting of this note may be different from the original. Case Management Admission Assessment NAME:Kaz Restrepo :1960 AGE: 56 y.o. ADMISSION DATE: 01/12/2017 DAYS ADMITTED: LOS: 1 day Todays Date: 01/13/2017 Source of Information: pt Plan SW anticipates pt to d/c to [facility] near [place] when medically stable. Plan: CM Assessment, Assist PRN with SW/NCM Services, Discharge Planning for Facility Anticipated Emergency Contact Extended Emergency Contact Information Primary Emergency Contact: Kirti Restrepo [facility] Relation: Mother Secondary Emergency Contact: Yanelis Govea [place] [employer]ags Relation: Significant Other DPOA Pt denies wishing to complete paperwork at this time. Transportation Does the patient need discharge transport arranged?: No Transportation Name, Phone and Availability #1: girlfriend, yanelis govea Does the patient use Medicaid Transportation?: No [...] Yes Support Systems: Spouse/Partner (yanelis govea, girlfriend [phone]) Assistance Needed: No Home Care Services: No [...] ? Outpatient Therapy PT: No OT: No SERVICE DESK DIRECTOR: No ? SNF/NH SNF: No NH: No [...] No Nurse Suspected Abuse?: No -Sirisha Hurtado, [facility] *[id number] * Transfer - Zully Castelan, OSBALDO-TASHA - 01/13/2017 11:35 AM CDT Formatting of this note may be different from the original. In-Hospital Transfer Note Admission Diagnosis: Right sided weakness Admission Date: 01/12/2017 Active Hospital Problem List: Active Problems: Coronary artery disease of [place] artery of [place] heart with stable angina pectoris (HCC) Essential hypertension Mixed hyperlipidemia GERD (gastroesophageal reflux disease) Chest pain Tobacco abuse Stroke (HCC) GERI (acute kidney injury) (HCC) Hospital Course: Kaz Restrepo is a 56 yo male with h/o HTN, CAD, HLD, substance abuse, tobacco abuse and previous stroke who was transferred from [facility] on 01/12 with acute onset right [...] consulted for bradycardia and chest pain. His HIM TECH coreg was held and he remained asymptomatic with HR 45-60. Troponin and EKG negative for ischemia. Imdur was resumed. His HIM TECH ASA and Plavix were started 24 hours [...] monitor for myalgia, h/o intolerance - resumed HIM TECH wellbutrin - holding Coreg due to bradycardia [...] Cardiology ongoing recommendations for bradycardia - additional HIM TECH antihypertensives to resume as needed - ongoing PT/OT/ST needs Activity/Weight bearing status: Up to chair with PT/OT Nutrition: Regular diet Discharge Plan: Transfer to floor for continued Zully Castelan APRN-DIRECTOR SALES Pager [phone] * Case Mgmt DC Plan - Massiel [...] will continue to follow. Massiel PETERSON, RN, [facility] Integrated Nurse Road Hogger Operator Neurology Service Pager: [phone] * Acute Stroke Response - Lis Sauceda RN - 01/12/2017 7:53 AM CDT Formatting of this note may be different from the original. RN Stroke Activation Summary Date of Service: 01/12/2017 Kaz Restrepo is a 56 y.o. male. : 1960 Allergies: Pcn [penicillins] Patient Arrival: 0700 ASRT Arrival: 0647 Location of Response : flash CT Page Received: 9553 EMS Agency: [facility] Outside Hospital: [facility] Clinical Presentation: Dysarthria, Right [...] to flash CT scanner at 0700 via [employer] [facility] methods engineer. NIH 15. CTA/CTP complete at this time. Pt failed swallow at this time. notified. CT/CTP/CTA/IR: CTA/CTP time: 724 CTA/CTP Interpretation time: 729 N/A Plan: Admit to ICU. Call Completion: 0753 RN handoff: AD[facility] St History of Present Illness Past Medical History: Diagnosis Date Chest pain 08/09/2016 Coronary artery disease 08/09/2016 Coronary artery disease of [place] artery of [place] heart with stable angina pectoris (HCC) 08/09/2016 07/29/16: heart cath ([place]ia [place], [place]) - total occlusion of the right [...] Sauceda RN * Acute Stroke Response - Julainna Baer MD - 01/12/2017 7:30 AM CDT [...] post tPA - CBC, BMP routine - PT/OT/SERVICE DESK DIRECTOR consult eval and treat - Rehab consult [...] and right ptosis while in ED at [facility], [place], operated by [facility] for chest pain. NIHSS was 16. He [...] facial droop and apahsia. He is from [facility], [place], operated by [facility]. Earlier today, at 1:20 AM in the morning she developed chest pain. He presented to the [facility] for chest pain. While he was [...] of Response : flash CT Page Received: 0552 Clinical Presentation: Dysarthria, Right facial droop, Right [...] language) 2=neither correct 2 1c. Commands-open/close eyes, tablet repair and release non-paretic hand (other 1 step [...] artery disease 08/09/2016 Coronary artery disease of [place] artery of [place] heart with stable angina pectoris (HCC) 08/09/2016 07/29/16: heart cath ([address]ia [place], [place]) - total occlusion of the right [...] MD, MPH Neurology Resident PGY 4 Pager [phone] in this encounter Plan of Treatment Not [...] Performing Laboratory [facility] [address] [place] [address] * BASIC METABOLIC PANEL (01/14/2017 4:40 AM) [...] Performing Laboratory [facility] [address] [place] [address] * SWALLOW MOTION SERIES (01/13/2017 8:48 AM) [...] Specimen Performing Laboratory [facility] [address] [place] [address] * BASIC METABOLIC PANEL (01/13/2017 3:50 AM) [...] Specimen Performing Laboratory [facility] [address] [place] [address] * IONIZED CALCIUM (01/13/2017 3:50 AM) Component Value Ref Range Ionized Calcium 1.09 1.0 - 1.3 MMOL/L Specimen Performing Laboratory [facility] [address] [place] [address] * PHOSPHORUS (01/13/2017 3:50 AM) Component Value Ref Range Phosphorus 3.2 2.0 - 4.0 MG/DL Specimen Performing Laboratory [facility] [address] [place] [address] * MAGNESIUM (01/13/2017 3:50 AM) Component Value Ref Range Magnesium 1.8 1.6 - 2.6 mg/dL Specimen Performing Laboratory [facility] [address] [place] [address] * CTA CHEST WO/W CONTRAST+POST IMPRESSION (01/12/2017 [...] (PCP) 25 NG/ML Specimen Performing Laboratory Urine [facility] [address] [place] [address] * OPIATES-URINE RANDOM (01/12/2017 2:17 PM) Component Value Ref Range Opiates-Urine NEG NEG-NEG Comment: RESULTS WERE OBTAINED BY IMMUNOASSAY AND ARE PRESUMPTIVE ONLY. POSITIVE INDICATES THE PRESENCE OF SUBSTANCE WITH CHARACTERISTICS SIMILAR TO DRUG-DRUG CLASS OR METABOLITE IN CONC. EQUAL TO OR EXCEEDING VALUES LISTED. OPIATES 200 0 NG/ML Specimen Performing Laboratory Urine [facility] [address] [place] [address] * COCAINE-URINE RANDOM (01/12/2017 2:17 PM) Component Value Ref Range Cocaine-Urine NEG NEG-NEG Comment: RESULTS WERE OBTAINED BY IMMUNOASSAY AND ARE PRESUMPTIVE ONLY. POSITIVE INDICATES THE PRESENCE OF SUBSTANCE WITH CHARACTERISTICS SIMILAR TO DRUG-DRUG CLASS OR METABOLITE IN CONC. EQUAL TO OR EXCEEDING VALUES LISTED. COCAINE 300 NG/ML Specimen Performing Laboratory Urine [facility] [address] [place] [address] * CANNABINOIDS-URINE RANDOM (01/12/2017 2:17 PM) Component Value Ref Range THC NEG NEG-NEG Comment: RESULTS WERE OBTAINED BY IMMUNOASSAY AND ARE PRESUMPTIVE ONLY. POSITIVE INDICATES THE PRESENCE OF SUBSTANCE WITH CHARACTERISTICS SIMILAR TO DRUG-DRUG CLASS OR METABOLITE IN CONC. EQUAL TO OR EXCEEDING VALUES LISTED. CANNABINOIDS 50 NG/ML Specimen Performing Laboratory Urine [facility] [address] [place] [address] * BENZODIAZEPINES-URINE RANDOM (01/12/2017 2:17 PM) Component Value Ref Range Benzodiazepines NEG NEG-NEG Comment: RESULTS WERE OBTAINED BY IMMUNOASSAY AND ARE PRESUMPTIVE ONLY. POSITIVE INDICATES THE PRESENCE OF SUBSTANCE WITH CHARACTERISTICS SIMILAR TO DRUG-DRUG CLASS OR METABOLITE IN CONC. EQUAL TO OR EXCEEDING VALUES LISTED. BENZODIAZEPINES 200 NG/ML Specimen Performing Laboratory Urine [facility] [address] [place] [address] * BARBITURATES-URINE RANDOM (01/12/2017 2:17 PM) Component Value Ref Range Barbiturates,Urine NEG NEG-NEG Comment: RESULTS WERE OBTAINED BY IMMUNOASSAY AND ARE PRESUMPTIVE ONLY. POSITIVE INDICATES THE PRESENCE OF SUBSTANCE WITH CHARACTERISTICS SIMILAR TO DRUG-DRUG CLASS OR METABOLITE IN CONC. EQUAL TO OR EXCEEDING VALUES LISTED. BARBITURATES 200 NG/ML Specimen Performing Laboratory [facility] [address] [place] [address] * AMPHETAMINES-URINE RANDOM (01/12/2017 2:17 PM) Component Value Ref Range Amphetamines NEG NEG-NEG Comment: RESULTS WERE OBTAINED BY IMMUNOASSAY AND ARE PRESUMPTIVE ONLY. POSITIVE INDICATES THE PRESENCE OF SUBSTANCE WITH CHARACTERISTICS SIMILAR TO DRUG-DRUG CLASS OR METABOLITE IN CONC. EQUAL TO OR EXCEEDING VALUES LISTED. AMPHETAMINES 1000 NG/ML Specimen Performing Laboratory [facility] [address] [place] [address] * MRI HEAD WO/W CONTRAST (01/12/2017 1:36 [...] MG/DL Specimen Performing Laboratory [facility] [address] [place] [address] * BASIC METABOLIC PANEL (01/12/2017 11:48 AM) [...] for questions. Specimen Performing Laboratory [facility] [address] [place] [address] * LIPID PROFILE (01/12/2017 11:48 AM) Component [...] mg/dL. Specimen Performing Laboratory [facility] [address] [place] [address] * TROPONIN-I (01/12/2017 11:48 AM) Component Value Ref Range Troponin-I 0.01 0.0 - 0.05 NG/ML Specimen Performing Laboratory [facility] [address] [place] [address] * TROPONIN-I (01/12/2017 9:39 AM) Component Value Ref Range Troponin-I 0.01 0.0 - 0.05 NG/ML Specimen Performing Laboratory [facility] [address] [place] [address] * 2-D + DOPPLER ECHOCARDIOGRAM (01/12/2017 8:54 AM) Component Value Ref Range BSA 1.86 m2 Referring Provider Dexter Hernandes CV ECHO PV LENS CEMENTER Floor RN LVIDD 3.3 4.2 - 5.9 [...] Performing Laboratory [facility] [address] [place] [address] * TROPONIN-I (01/12/2017 7:34 AM) Component Value Ref Range Troponin-I 0.01 0.0 - 0.05 NG/ML Specimen Performing Laboratory [facility] [address] [place] [address] * PHOSPHORUS (01/12/2017 7:34 AM) Component Value Ref Range Phosphorus 3.5 2.0 - 4.0 MG/DL Specimen Performing Laboratory [facility] [address] [place] [address] * MAGNESIUM (01/12/2017 7:34 AM) Component Value Ref Range Magnesium 1.8 1.6 - 2.6 mg/dL Specimen Performing Laboratory [facility] [address] [place] [address] * PROTIME INR (PT) (01/12/2017 7:34 AM) Component Value Ref Range INR 0.9 0.8 - 1.2 Specimen Performing Laboratory [facility] [address] [place], [place] [id number] * CBC AND DIFF (01/12/2017 7:34 AM) [...] K/UL Specimen Performing Laboratory [facility] [address] [place], [place] [id number] * HEMOGLOBIN A1C (01/12/2017 7:34 AM) Component Value Ref Range Hemoglobin A1C 5.5 4.0 - 6.0 % Comment: The ADA recommends that most patients with type 1 and type 2 diabetes maintain an A1c level <7%. Specimen Performing Laboratory [facility] [address] [place] [address] * CT BRAIN PERF (01/12/2017 7:25 AM) [...] stenosis. There is origin of the right GRIZZLYMAN. The anterior, middle, and posterior cerebral arteries [...] stenosis. There is origin of the right GRIZZLYMAN. The anterior, middle, and posterior cerebral arteries [...] stenosis. There is origin of the right GRIZZLYMAN. The anterior, middle, and posterior cerebral arteries [...] stenosis. There is origin of the right GRIZZLYMAN. The anterior, middle, and posterior cerebral arteries [...] stenosis. There is origin of the right GRIZZLYMAN. The anterior, middle, and posterior cerebral arteries [...] stenosis. There is origin of the right GRIZZLYMAN. The anterior, middle, and posterior cerebral arteries [...] specified cardiac dysrhythmias Coronary artery disease of [place] artery of [place] heart with stable angina pectoris (HCC) Essential hypertension Unspecified essential hypertension Mixed hyperlipidemia Tobacco abuse Tobacco use disorder Transient cerebral ischemia, unspecified type GERI (acute kidney injury) (HCC) Acute kidney failure, unspecified Dysphagia, unspecified type History of noncompliance with medical treatment Personal history of noncompliance with medical treatment, presenting hazards to health Coronary artery disease involving [place] coronary artery of [place] heart with angina pectoris (HCC) GERD (gastroesophageal [...]
--- OUTSIDE RECORDS SUMMARY | 2017-04-10 15:08 | XMS REPORT | Encounter Summary ---
Author Author [facility] Organization [facility] Address Unknown Phone Unavailable Care Team Providers Care Case Hardener Name Role Phone PCP Unavailable Encounter Details Date Type Department Care Team Description 01/12/2017 Hospital [facility] Encounter Hospital Radiology [address] [place], [place] [id number] Social History Tobacco Use Types Packs/Day Years [...] for Chest Pain. Max of 3 of [place] artery of tablets, call 911. [place] heart with stable angina pectoris (HCC), Essential [...]
--- OUTSIDE RECORDS SUMMARY | 2017-04-10 15:08 | XMS REPORT | Encounter Summary ---
Author Author [facility] Organization [facility] Address Unknown Phone Unavailable Care Team Providers Care Rn Support Services Name Role Phone PCP Unavailable Encounter Details Date Type Department Care Team Description 01/12/2017 [facility] [address] [facility] [place] [address] Social History Tobacco Use Types [...]
--- OUTSIDE RECORDS SUMMARY | 2017-04-10 15:08 | XMS REPORT | Encounter Summary ---
Author Author [facility] Organization [facility] Address Unknown Phone Unavailable Care Team Providers Care Textbook Associate Name Role Phone PCP Unavailable Encounter Details Date Type Department Care Team Description 01/12/2017 Hospital [facility] Encounter Hospital Radiology [address] [place], [place] [id number] Social History Tobacco Use Types Packs/Day Years [...] for Chest Pain. Max of 3 of [place] artery of tablets, call 911. [place] heart with stable angina pectoris (HCC), Essential [...]
[2017-04-10] MEDS ORDERED: NS IV 1000 ML 1,000 ML IV ONE (15:20)
[2017-04-10] MEDS ORDERED: diphenhydrAMINE 50 MG/ML INJ (BENADRYL) IV STA (15:20)
[2017-04-10] MEDS ORDERED: KETOROLAC 30 MG/ML VIAL IVP STA (15:20)
[2017-04-10 15:28] LABS: BASOPHILS % (AUTO) 1 % (0-10); EOSINOPHILS # (AUTO) 0.3 10^3/uL (0.0-0.3); EOSINOPHILS % (AUTO) 6 % (0-10); LYMPHOCYTES # (AUTO) 1.3 X 10^3 (1.0-4.0); LYMPHOCYTES % (AUTO) 25 % (12-44); MEAN CORPUSCULAR HEMOGLOBIN 30 PG (25-34); MEAN CORPUSCULAR HGB CONC 33 G/DL (32-36); MEAN CORPUSCULAR VOLUME 90 FL (80-99); MEAN PLATELET VOLUME 9.6 FL (7.4-10.4); MONOCYTES # (AUTO) 0.5 X 10^3 (0.0-1.0); MONOCYTES % (AUTO) 10 % (0-12); NEUTROPHILS # (AUTO) 3.1 X 10^3 (1.8-7.8); NEUTROPHILS % (AUTO) 58 % (42-75); PLATELET COUNT 319 10^3/uL (130-400); RED BLOOD COUNT 3.95 10^6/uL (4.35-5.85); RED CELL DISTRIBUTION WIDTH 13.2 % (10.0-14.5); WHITE BLOOD COUNT 5.3 10^3/uL (4.3-11.0)
[2017-04-10] MEDS ORDERED: PROCHLORPERAZINE 10 MG/2ML INJ (COMPAZINE) IV ONE (15:30)
--- NOTE | 2017-04-10 15:30 | ED Neurological Problem ---
General Chief Complaint: Neuro-Stroke Like Symptoms Stated Complaint: POSSIBLE STROKE Source: patient, family Exam Limitations: no limitations History of Present Illness Time seen by provider: 15:05 Initial Comments Seen and evaluated on arrival. Patient has complaint of right facial droop. There is no weakness noted and patient was able to walk again. Has history of stroke versus complex migraine. Workup here in the [facility] does not reveal significant findings other than concerns for complex migraine. He does have medication regimen that has been recommended when he has these. Female partner with him states that this episode is different in that came on quicker and he did not have a headache beforehand. Patient is complaining of headache now. Denies current blood pressure concerns. States taking his medicines as directed. Timing/Duration: 1/2 hour Severity: moderate Associated Symptoms: No confusion, No fever/chills, No nausea/vomiting, No numbness in legs/feet, No seizures, slurred speech, weakness (right facial droop ) Allergies and Home Medications Allergies Coded Allergies: penicillin G (Verified Allergy, Severe, SWELLING, 03/30/17) Home Medications Alprazolam 0.25 Mg Tablet, 0.25 MG PO BID PRN for ANXIETY, (Reported) Amitriptyline HCl 25 Mg Tablet, 25 MG PO HS, #30 Prescribed by: BILL HUERTA on 04/04/17 1301 Amlodipine Besylate 10 Mg Tablet, 10 MG PO DAILY, (Reported) Aspirin 81 Mg Tablet.dr, 81 MG PO HS, (Reported) Atorvastatin Calcium 10 Mg Tablet, 10 MG PO HS, (Reported) Bupropion HCl 150 Mg Tablet.er, 150 MG PO BID, (Reported) Buspirone HCl 15 Mg Tablet, 15 MG PO TID, (Reported) Carvedilol 3.125 Mg Tablet, 3.125 MG PO BID, (Reported) Clonidine HCl 0.1 Mg Tablet, 0.1 MG PO TID, (Reported) Clopidogrel Bisulfate 75 Mg Tablet, 75 MG PO HS, (Reported) Isosorbide Mononitrate 30 Mg Tab.er.24h, 30 MG PO DAILY, (Reported) Losartan Potassium 50 Mg Tablet, 50 MG PO BID, (Reported) LAST FILLED #90 01-16-17 Nitroglycerin 0.4 Mg Tab.subl, 0.4 MG SL UD PRN for CHEST PAIN, (Reported) PLACE 1 TAB UNDER TONGUE NEEDED FOR CHEST PAIN; IF PAIN REMAINS AFTER 5 MINUTES, CALL 911 [place]-3 Fatty Acids/Fish Oil 1 Each Capsule, 1,000 MG PO BID, (Reported) Ranolazine 1,000 Mg Tab.er.12h, 500 MG PO BID, (Reported) TAKES 1/2 (1000MG) TABLET Red Yeast Rice 600 Mg Capsule, 3 CAP PO HS, (Reported) Sertraline HCl 50 Mg Tablet, 50 MG PO DAILY, (Reported) Trazodone HCl 100 Mg Tablet, 100 MG PO HS, (Reported) Constitutional: see HPI, No chills, No fever Eyes: No Symptoms Reported Ears, Nose, Mouth, Throat: see HPI, denies throat pain Respiratory: no symptoms reported, No short of breath, No wheezing Cardiovascular: No chest pain, No palpitations Gastrointestinal: No abdominal pain, No nausea, No vomiting Genitourinary: no symptoms reported Musculoskeletal: see HPI, No back pain, muscle weakness Skin: no symptoms reported Psychiatric/Neurological: See HPI, Headache, Weakness Endocrine: No Symptoms Reported All Other Systems Reviewed Negative Unless Noted: Yes Past Ruvssga-Afcgdl-Kukbxi Hx Patient Social History Alcohol Use: Denies Use Number of Drinks Today: AA Alcohol Beverage of Choice: Beer Recreational Drug Use: No Smoking Status: Never a Smoker Type Used: Cigarettes Former Smoker, Quit: Jan 25, 2017 2nd Hand Smoke Exposure: Yes Recent Foreign Travel: No Contact w/Someone Who Travel: No Recent Hopitalizations: Yes (01/2017 FOR TIA/CHEST PAIN) Physical Abuse: No Sexual Abuse: No Mistreated: No Fear: No Immunizations Up To Date Tetanus Booster (TDap): Less than 5yrs PED Vaccines UTD: No Date of Influenza Vaccine: Dec 28, 2014 Seasonal Allergies Seasonal Allergies: No Surgeries History of Surgeries: Yes (hernia) Surgeries: Abdominal, Coronary Stent, Orthopedic Respiratory History of Respiratory Disorde: No Currently Using CPAP: No Currently Using BIPAP: No Cardiovascular History of Cardiac Disorders: Yes (CARDIAC STENTS) Cardiac Disorders: Coronary Artery Disease, Deep Vein Thrombosis, Heart Attack , High Cholesterol, Hypertension Neurological History of Neurological Disord: Yes Neurological Disorders: Stroke, TIA Reproductive System Hx Reproductive Disorders: No Sexually Transmitted Disease: No Genitourinary History of Genitourinary Disor: Yes (recurrent urinary tract infections) Gastrointestinal History of Gastrointestinal Di: Yes Gastrointestinal Disorders: Gastroesophageal Reflux, Hiatal Hernia, Ulcer Musculoskeletal History of Musculoskeletal Dis: No Endocrine History of Endocrine Disorders: No HEENT History of HEENT Disorders: No Loss of Vision: Denies Cancer History of Cancer: No Psychosocial History of Psychiatric Problem: Yes Behavioral Health Disorders: Depression Suicide Risk Score: 0 Integumentary History of Skin or Integumenta: No Blood Transfusions History of Blood Disorders: No Adverse Reaction to a Blood Tr: No Reviewed Nursing Assessment Reviewed/Agree w Nursing PMH: Yes Family Medical History Significant Family History: Heart Disease, Hypertension Family Medial History: Arthritis 19 MOTHER HEEL COVER SPLITTER G8 SISTER FH: COPD (chronic obstructive pulmonary disease) Hypercholesterolemia 19 MOTHER Hypertension 19 MOTHER Physical Exam Vital Signs Vital Sign - Last 12Hours 04/10/17 15:17 Temp 98.0 Pulse 60 Resp 14 B/P (MAP) 159/92 Pulse Ox 95 O2 Delivery Room Air Capillary Refill : General Appearance: WD/WN, no apparent distress HEENT: PERRL/EOMI, pharynx normal Neck: full range of motion, supple Respiratory: lungs clear, normal breath sounds Cardiovascular: regular rate, rhythm, no murmur Gastrointestinal: non tender, soft Back: normal inspection, no CVA tenderness, no vertebral tenderness Extremities: non-tender, normal inspection Neurologic/Psychiatric: alert, normal mood/affect, oriented x 3 Crainal Nerves: normal hearing, PERRL, facial asymmetry, facial droop (right- sided), other (on evaluating for symptoms of stroke, patient does not appear to have left or right-sided weakness except for what appears to be right facial droop. Patient was having difficulty opening his mouth and maintaining droop. There is no tongue deviation and no variance in pharyngeal height or movement on phonation. Finger to nose appropriate bilaterally.) Coordination/Gait: normal finger to nose, normal gait Motor/Sensory: no sensory deficit, no pronator drift Skin: normal color, warm/dry Stroke NIH Stroke Scale Assessment Level of Consciousness: 0=Alert (0), Level of Consciousness-Questions: 0= Answers both month/age (0), LOC Commands: 0=Performs both tasks (0), Gaze: Normal (0), Visual Rodriguez: 0=No visual loss (0), Facial Movement (Facial Paresis ): 2=Partial paralysis (2), Motor Function-Arms Right: 1=Drift (1), Motor Function-Arms Left: 0=No drift (0), Motor Function-Legs Right: 0=No drift (0), Motor Function-Legs Left: 0=No drift (0), Limb Ataxia: 0=Absent (0), Sensory: 0= Normal:no loss (0), Best Language: 0=No aphasia (0), Dysarthria: 0=Normal (0), Extinction & Inattention: 0=No abnormality (0), Total: Stroke Thrombolytic Exclusion Age 18 or Over: Yes Acute intenal hemorrhage: No History of CVA: No Uncontrolled Coagulation Defec: No Intracranial Hemorrhage: No Severe Hypertension: No GI or Bleed: No Subarachnoid Hemorrhage: No Intracranial Neoplasm/Aneurysm: No Oral Anticoagulants: No Surgery or Trauma: No Puncture of Non-Compressible V: No Recent CPR: No Diabetic Hemorrhagic Retinopat: No Organ Biopsy: No Recent Obstetric Delivery: No Glucose: No Significant Hepatic Dysfunctio: No NIH Stoke Scale >22: No Bacterial Endocarditis: No Pericarditis: No Improving Symptoms: No Platelets: No Progress/Results/Core Measures Results/Orders Lab Results Laboratory Tests Test 04/10/17 15:16 Range/Units White Blood Count 5.3 4.3-11.0 10^3/uL Red Blood Count 3.95 L 4.35-5.85 10^6/uL Hemoglobin 11.9 L 13.3-17.7 G/DL Hematocrit 36 L 40-54 % Mean Corpuscular Volume 90 80-99 FL Mean Corpuscular Hemoglobin 30 25-34 PG Mean Corpuscular Hemoglobin Concent 33 32-36 G/DL Red Cell Distribution Width 13.2 10.0-14.5 % Platelet Count 319 130-400 10^3/uL Mean Platelet Volume 9.6 7.4-10.4 FL Neutrophils (%) (Auto) 58 42-75 % Lymphocytes (%) (Auto) 25 12-44 % Monocytes (%) (Auto) 10 0-12 % Eosinophils (%) (Auto) 6 0-10 % Basophils (%) (Auto) 1 0-10 % Neutrophils # (Auto) 3.1 1.8-7.8 X 10^3 Lymphocytes # (Auto) 1.3 1.0-4.0 X 10^3 Monocytes # (Auto) 0.5 0.0-1.0 X 10^3 Eosinophils # (Auto) 0.3 0.0-0.3 10^3/uL Basophils # (Auto) 0.0 0.0-0.1 10^3/uL D-Dimer 0.69 H 0.00-0.49 UG/ML Sodium Level 137 135-145 MMOL/L Potassium Level 4.0 3.6-5.0 MMOL/L Chloride Level 103 98-107 MMOL/L Carbon Dioxide Level 24 21-32 MMOL/L Anion Gap 10 5-14 MMOL/L Blood Urea Nitrogen 27 H 7-18 MG/DL Creatinine 1.35 H 0.60-1.30 MG/DL Estimat Glomerular Filtration Rate 55 BUN/Creatinine Ratio 20 Glucose Level 121 H 70-105 MG/DL Calcium Level 9.4 8.5-10.1 MG/DL Total Bilirubin 0.3 0.1-1.0 MG/DL Aspartate Amino Transf (AST/SGOT) 19 5-34 U/L Alanine Aminotransferase (ALT/SGPT) 44 0-55 U/L Alkaline Phosphatase 157 H 40-136 U/L Troponin I < 0.30 <0.30 NG/ML C-Reactive Protein High Sensitivity 1.15 H 0.00-0.50 MG/DL Total Protein 7.1 6.4-8.2 GM/DL Albumin 3.9 3.2-4.5 GM/DL My Orders Orders - BRITNEY CEE MD Cbc With Automated Diff (04/10/17 15:20) Comprehensive Metabolic Panel (04/10/17 15:20) Hs C Reactive Protein (04/10/17 15:20) Fibrin Degradation Products (04/10/17 15:20) Troponin I (04/10/17 15:20) Ct Head Wo-R/O Stroke (04/10/17 15:20) Saline Lock/Iv-Start (04/10/17 15:20) Ns Iv 1000 Ml (Sodium Chloride 0.9%) (04/10/17 15:20) Diphenhydramine Injection (Benadryl Inje (04/10/17 15:20) Ketorolac Injection (Toradol Injection) (04/10/17 15:20) Prochlorperazine Injection (Compazine In (04/10/17 15:30) Magnesium 1 Gm/100 Ml Ivpb (Magnesium Tejeda (04/10/17 15:30) Ekg Tracing (04/10/17 15:48) Chest 1 View, Ap/Pa Only (04/10/17 15:48) Medications Given in ED Current Medications Medications Dose Ordered Sig/Mckenzie Route Start Time Stop Time Status Last Admin Dose Admin Prochlorperazine Edisylate 10 mg ONCE ONCE IV 04/10/17 15:30 04/10/17 15:31 DC 04/10/17 15:42 10 MG Sodium Chloride 1,000 ml @ 0 mls/hr Q0M ONCE IV 04/10/17 15:20 04/10/17 15:23 DC 04/10/17 15:45 0 MLS/HR Vital Signs/I&O Vital Sign - Last 12Hours 04/10/17 15:17 Temp 98.0 Pulse 60 Resp 14 B/P (MAP) 159/92 Pulse Ox 95 O2 Delivery Room Air Progress Note : Progress Note Seen and evaluated. Patient has history of stroke mimics. We will get evaluation but not activation at this time. Patient has normal blood pressure in the ranges of 130s over 70s. Rapid CT assessment ordered. Stroke scale only positive for right facial droop and subsequent speech changes scoring a 2. [facility] has evaluated him as recently as January and he had a similar presentation within the last couple of weeks. They are recommending Toradol, Compazine, Benadryl, magnesium IV and hydration. I did order this as Toradol 30 mg IV, Compazine 10 mg IV, Benadryl 25 mg IV, 2 g of magnesium IV and 1 L normal saline IV. TPA consideration but I do have concerns about significant risk related to TPA use in this patient due to history of Plavix and aspirin use and multiple evaluations for this with only stroke mimic noted and findings more consistent with migraine. I believe the risk outweigh the benefits currently especially with only deficit being left facial droop and minimal amount of speech slurring due to that. I did discuss this with the patient and family who verbalize understanding and agreement. 1800: Patient's symptoms have resolved and have remained resolved for the last hour. He has been sleeping comfortably. He is okay with going home. Discharged home with return precautions. Patient verbalize understanding of instructions and agreement with plan. ECG Initial ECG Impression Date: Apr 10, 2017 Initial ECG Impression Time: 15:51 Initial ECG Rate: 57 Initial ECG Rhythm: Normal Sinus Comment Sinus rhythm with normal axis. No evidence of ST elevation NE. Overall similar to previous of 04/04/17. Interpreted by me. Diagnostic Imaging Diagonstic Imaging: CT Plain Films/CT/US/NM/MRI: head Comments VIA [facility]. [place] NAME: EZEQUIEL VITALE [facility] REC#: [id number] PT STATUS: REG ER : 1960 PHYSICIAN: BRITNEY CEE MD ADMIT DATE: 04/10/17/ER Draft Date of Exam:04/10/17 CT HEAD WO-R/O STROKE INDICATION: TIA. EXAMINATION: CT of the head without contrast. Contiguous axial sections were taken through the skull. FINDINGS: There is no mass, shift of the midline or hemorrhage to suggest an acute intracranial abnormality. The ventricles are not abnormally dilated. The ventricles do seem stable in size when compared to the prior exam of December 03, 2016. The bone windows show no sign of a fracture or of a destructive lesion. The orbits are symmetrical and within normal limits. The sinuses are generally clear. IMPRESSION: 1. There is no evidence for an acute intracranial abnormality. When compared to the prior study, there has been no significant change. 2. If clinical concern regarding an underlying abnormality persists, then MRI would be recommended for further study. Dictated on workstation # [id number] Dict: 04/10/17 1600 Trans: 04/10/17 1626 [facility] [id number] Interpreted by: MARILU ART MD Electronically signed by: Diagonstic Imaging: Xray Plain Films/CT/US/NM/MRI: chest Departure Impression Impression: Primary Impression: Migraine Qualified Codes: G43.909 - Migraine, unspecified, not intractable, without status migrainosus Disposition: 01 HOME, SELF-CARE Condition: Improved Departure-Patient Inst. Decision time for Depature: 18:08 Referrals: ANDRES RABAGO DO (PCP/Family) Primary Care Physician Patient Instructions: Migraine Headache (DC) Add. Discharge Instructions: All discharge instructions reviewed with patient and/or family. Voiced understanding. Continue home medications as directed. Follow-up with your DrLopez in one to 2 days for recheck. Return for worse pain, fever, vomiting, weakness, breathing problems or other concerns as needed. BRITNEY CEE MD Apr 10, 2017 15:30
[2017-04-10 15:43] LABS: ALANINE AMINOTRANSFERASE 44 U/L (0-55); ALBUMIN 3.9 GM/DL (3.2-4.5); ANION GAP 10 MMOL/L (5-14); ASPARTATE AMINO TRANSFERASE 19 U/L (5-34); BILIRUBIN,TOTAL 0.3 MG/DL (0.1-1.0); BLOOD UREA NITROGEN 27 MG/DL (7-18); BUN/CREATININE RATIO 20; CALCIUM 9.4 MG/DL (8.5-10.1); CARBON DIOXIDE 24 MMOL/L (21-32); CHLORIDE 103 MMOL/L (98-107); CREATININE SERUM 1.35 MG/DL (0.60-1.30); GFR ESTIMATED 55; GLUCOSE 121 MG/DL (70-105); SODIUM 137 MMOL/L (135-145); TOTAL PROTEIN 7.1 GM/DL (6.4-8.2); hs C REACTIVE PROTEIN 1.15 MG/DL (0.00-0.50)
[2017-04-10 15:49] LABS: TROPONIN I < 0.30 NG/ML (<0.30)
[2017-04-10] MEDS: MAGNESIUM 1 GM/100 ML IVPB 100 ML IV SCH ×2 (16:01→17:00)
--- NOTE | 2017-04-10 16:26 | Diagnostic Imaging Report ---
INDICATION: TIA. EXAMINATION: CT of the head without contrast. Contiguous axial sections were taken through the skull. FINDINGS: There is no mass, shift of the midline or hemorrhage to suggest an acute intracranial abnormality. The ventricles are not abnormally dilated. The ventricles do seem stable in size when compared to the prior exam of December 03, 2016. The bone windows show no sign of a fracture or of a destructive lesion. The orbits are symmetrical and within normal limits. The sinuses are generally clear. IMPRESSION: 1. There is no evidence for an acute intracranial abnormality. When compared to the prior study, there has been no significant change. 2. If clinical concern regarding an underlying abnormality persists, then MRI would be recommended for further study. Dictated by: Dictated on workstation # [id number]
--- NOTE | 2017-04-10 17:08 | Diagnostic Imaging Report ---
INDICATION: Generalized weakness. COMPARISON: 04/04/2017. FINDINGS: Upright portable view of the chest is obtained. Heart size is normal. The pulmonary vessels appear unremarkable. There is no pneumothorax, mediastinal widening or pleural fluid. There may be some very minimal patchy infiltrate seen at the right lung base. Left lung is clear. IMPRESSION: Possible minimal right basilar infiltrate. Dictated by: Dictated on workstation # [id number]
[2017-04-10 18:26] VITALS: BP 149/91
== END 2017-04-10 18:24 | disposition home or self-care (01) ==
LOC: EDUNIT# 15:00 → ER 15:02
DX: G43.909 Migraine, unspecified, not intractable, without status migrainosus (principal); K21.9 Gastro-esophageal reflux disease without esophagitis; F32.9 Major depressive disorder, single episode, unspecified; I25.2 Old myocardial infarction; I25.10 Atherosclerotic heart disease of native coronary artery without angina pectoris; I10 Essential (primary) hypertension; Z87.891 Personal history of nicotine dependence; Z79.82 Long term (current) use of aspirin; Z95.5 Presence of coronary angioplasty implant and graft; Z86.718 Personal history of other venous thrombosis and embolism; Z87.11 Personal history of peptic ulcer disease; Z86.73 Personal history of transient ischemic attack (TIA), and cerebral infarction without residual deficits; Z82.49 Family history of ischemic heart disease and other diseases of the circulatory system
CPT/HCPCS: 36415; 70450; 71010; 80053; 84484; 85025; 85379; 86141; 93005; 96361; 96365; 96366; 96375

== ENCOUNTER 2017-05-01 19:52 | Emergency (ER) | payer SELFPAY ==
[~2017-05-01] VITALS: Ht 175.3 cm; Wt 81.6 kg
[~2017-05-01 19:52] MED LIST changes: +CIPR500T4 PO; +TAMS0.4C98 PO
[2017-05-01] MEDS ORDERED: NS IV 1000 ML 1,000 ML IV ONE (19:59)
--- OUTSIDE RECORDS SUMMARY | 2017-05-01 19:59 | XMS REPORT | Clinical Summary ---
Author Author [facility] Organization [facility] Address Unknown Phone Unavailable Care Team Providers Care Parking Regulation Enforcement Officer Name Role Phone PCP Unavailable Source Comments Some departments are not documenting in the electronic medical record. If you do not see the information that you expected, contact Release of Information in the Health Information Management department at [phone] for further assistance in locating additional records.[facility] Allergies Active Allergy Reactions Severity Noted [...] for Chest Pain. Max of 3 of [place] artery of tablets, call 911. 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 ([facility]) Overview: 07/29/16: heart cath ([place] [place], [place]) - total occlusion of the right [...] Radiology Outpatient, Radiologist Diagnosis unknown Orders 03/06/2017 [facility] Melquiades Byrne DO Episode of transient Encounter neurologic symptoms 03/06/2017 Procedure Pass 03/05/2017 Hospital Radiology Encounter 03/05/2017 Procedure Pass 03/05/2017 Procedure Pass 03/05/2017 Procedure Pass 03/05/2017 Hospital Radiology Encounter from Last 3 Months Family History Medical [...] Laboratory Urine [facility] [address] [place] [id number] * OPIATES-URINE RANDOM (03/06/2017 1:44 AM) Component Value Ref Range Opiates-Urine NEG NEG-NEG Comment: RESULTS WERE OBTAINED BY IMMUNOASSAY AND ARE PRESUMPTIVE ONLY. POSITIVE INDICATES THE PRESENCE OF SUBSTANCE WITH CHARACTERISTICS SIMILAR TO DRUG-DRUG CLASS OR METABOLITE IN CONC. EQUAL TO OR EXCEEDING VALUES LISTED. OPIATES 200 0 NG/ML Specimen Performing Laboratory Urine [address] [address] * COCAINE-URINE RANDOM (03/06/2017 1:44 AM) Component Value Ref Range Cocaine-Urine NEG NEG-NEG Comment: RESULTS WERE OBTAINED BY IMMUNOASSAY AND ARE PRESUMPTIVE ONLY. POSITIVE INDICATES THE PRESENCE OF SUBSTANCE WITH CHARACTERISTICS SIMILAR TO DRUG-DRUG CLASS OR METABOLITE IN CONC. EQUAL TO OR EXCEEDING VALUES LISTED. COCAINE 300 NG/ML Specimen Performing Laboratory Urine [facility] [address] [place] [id number] * CANNABINOIDS-URINE RANDOM (03/06/2017 1:44 AM) Component Value Ref Range THC NEG NEG-NEG Comment: RESULTS WERE OBTAINED BY IMMUNOASSAY AND ARE PRESUMPTIVE ONLY. POSITIVE INDICATES THE PRESENCE OF SUBSTANCE WITH CHARACTERISTICS SIMILAR TO DRUG-DRUG CLASS OR METABOLITE IN CONC. EQUAL TO OR EXCEEDING VALUES LISTED. CANNABINOIDS 50 NG/ML Specimen Performing Laboratory Urine [facility] [address] [place] [id number] * BENZODIAZEPINES-URINE RANDOM (03/06/2017 1:44 AM) Component Value Ref Range Benzodiazepines NEG NEG-NEG Comment: RESULTS WERE OBTAINED BY IMMUNOASSAY AND ARE PRESUMPTIVE ONLY. POSITIVE INDICATES THE PRESENCE OF SUBSTANCE WITH CHARACTERISTICS SIMILAR TO DRUG-DRUG CLASS OR METABOLITE IN CONC. EQUAL TO OR EXCEEDING VALUES LISTED. BENZODIAZEPINES 200 NG/ML Specimen Performing Laboratory Urine [facility] [address] [place] [phone] * BARBITURATES-URINE RANDOM (03/06/2017 1:44 AM) Component Value Ref Range Barbiturates,Urine NEG NEG-NEG Comment: RESULTS WERE OBTAINED BY IMMUNOASSAY AND ARE PRESUMPTIVE ONLY. POSITIVE INDICATES THE PRESENCE OF SUBSTANCE WITH CHARACTERISTICS SIMILAR TO DRUG-DRUG CLASS OR METABOLITE IN CONC. EQUAL TO OR EXCEEDING VALUES LISTED. BARBITURATES 200 NG/ML Specimen Performing Laboratory Urine MA[facility] [address] [place] [address] * AMPHETAMINES-URINE RANDOM (03/06/2017 1:44 AM) Component Value Ref Range Amphetamines NEG NEG-NEG Comment: RESULTS WERE OBTAINED BY IMMUNOASSAY AND ARE PRESUMPTIVE ONLY. POSITIVE INDICATES THE PRESENCE OF SUBSTANCE WITH CHARACTERISTICS SIMILAR TO DRUG-DRUG CLASS OR METABOLITE IN CONC. EQUAL TO OR EXCEEDING VALUES LISTED. AMPHETAMINES 1000 NG/ML Specimen Performing Laboratory Urine MAIN LAB [address] [place] [id number] * PROTIME INR (PT) (03/06/2017 1:22 AM) Component Value Ref Range INR 1.0 0.8 - 1.2 Specimen Performing Laboratory Blood MAIN LAB [address] [place] [address] * CBC (03/06/2017 1:22 AM) Component Value [...] FL Specimen Performing Laboratory Blood MAIN [facility] [address] [place] [id number] * PHOSPHORUS (03/06/2017 1:22 AM) Component Value Ref Range Phosphorus 3.8 2.0 - 4.0 MG/DL Specimen Performing Laboratory Blood MAIN LAB [address] [place] [address] * MAGNESIUM (03/06/2017 1:22 AM) Component Value Ref Range Magnesium 1.8 1.6 - 2.6 mg/dL Specimen Performing Laboratory Blood [facility] [address] [place] [address] * ALCOHOL LEVEL (03/06/2017 1:22 AM) Component Value Ref Range Alcohol <10 MG/DL Specimen Performing Laboratory Blood [facility] [address] [place] [address] * COMPREHENSIVE METABOLIC PANEL (03/06/2017 1:22 AM) [...] Performing Laboratory Blood [facility] [address] [place] [address] * CT BRAIN PERF (03/06/2017 1:04 AM) [...] stenosis. There is origin of the right SPINNERET PERSON. The anterior, middle, and posterior cerebral arteries [...] stenosis. There is origin of the right SPINNERET PERSON. The anterior, middle, and posterior cerebral arteries [...] stenosis. There is origin of the right SPINNERET PERSON. The anterior, middle, and posterior cerebral arteries [...] stenosis. There is origin of the right SPINNERET PERSON. The anterior, middle, and posterior cerebral arteries [...] stenosis. There is origin of the right SPINNERET PERSON. The anterior, middle, and posterior cerebral arteries [...] stenosis. There is origin of the right SPINNERET PERSON. The anterior, middle, and posterior cerebral arteries [...]
--- OUTSIDE RECORDS SUMMARY | 2017-05-01 19:59 | XMS REPORT | Continuity of Care Document ---
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 Corrugated Sheet Material Sheeter Name Role Phone [employer] Unavailable Unavailable Problems Medications Allergies, Adverse Reactions, Alerts Immunizations Results Vital Signs Encounters Location Location Details Encounter Type Encounter Number Reason For Visit Attending Provider ADM Date DC Date Status Source OUTPATIENT [id number] MUKESH SMITH 08/09/2016 Active [facility] INPATIENT [id number] JACKELYN MURDOCK 03/06/20172016 Active [facility] OUTPATIENT [id number] ROME TRINH 04/07/2017 Active [facility] O ROME TRINH Active [facility] Procedures Plan of Care Social History Assessment and Plan Family History Value Date Source Advance Directives Order Name Results Value Date Source
[2017-05-01] MEDS ORDERED: diphenhydrAMINE 50 MG/ML INJ (BENADRYL) IVP ONE (20:00)
[2017-05-01] MEDS ORDERED: MAGNESIUM 1 GM/100 ML IVPB 100 ML IV ONE ×2 (20:00)
[2017-05-01] MEDS ORDERED: PROCHLORPERAZINE 10 MG/2ML INJ (COMPAZINE) IV ONE (20:00)
[2017-05-01] MEDS ORDERED: KETOROLAC 30 MG/ML VIAL IVP ONE (20:00)
--- OUTSIDE RECORDS SUMMARY | 2017-05-01 20:00 | XMS REPORT | Encounter Summary ---
Author Author [facility] Organization [facility] Address Unknown Phone Unavailable Care Team Providers Care Head Start Teacher Name Role Phone PCP Unavailable Encounter Details Date Type Department Care Team Description 03/05/2017 Procedure [facility] [address] [place] [address] Social History Tobacco Use Types [...]
--- OUTSIDE RECORDS SUMMARY | 2017-05-01 20:00 | XMS REPORT | Encounter Summary ---
Author Author [facility] Organization [facility] Address Unknown Phone Unavailable Care Team Providers Care Industrial Sweeper Cleaner Name Role Phone PCP Unavailable Reason for Visit * Reason Comments General Question Encounter Details Date Type Department Care Team Description 03/15/2017 Telephone [facility] Melquiades Byrne DO General Question Physicians - Neurology [address] [facility] [address] [place] [address] [place] [address] [place], [place] [phone] [id number] [phone] Social History Tobacco Use Types Packs/Day Years [...]
--- OUTSIDE RECORDS SUMMARY | 2017-05-01 20:00 | XMS REPORT | Encounter Summary ---
Author Author [facility] Organization [facility] Address Unknown Phone Unavailable Care Team Providers Care Animal Care Assistant Name Role Phone PCP Unavailable Encounter Details Date Type Department Care Team Description 03/06/2017 Procedure Pass [facility] [address] [place] [address] Social History Tobacco Use Types [...]
--- OUTSIDE RECORDS SUMMARY | 2017-05-01 20:00 | XMS REPORT | Encounter Summary ---
Author Author [facility] Organization [facility] Address Unknown Phone Unavailable Care Team Providers Care Firewall Security Engineer Name Role Phone PCP Unavailable Encounter Details Date Type Department Care Team Description 03/05/2017 Procedure Pass [facility] [address] [place] [address] Social History Tobacco Use Types [...]
--- OUTSIDE RECORDS SUMMARY | 2017-05-01 20:00 | XMS REPORT | Encounter Summary ---
Author Author [facility] Organization [facility] Address Unknown Phone Unavailable Care Team Providers Care Pinball Machine Repairer Name Role Phone PCP Unavailable Encounter Details Date Type Department Care Team Description 03/07/2017 Ancillary Rad Outpatient, Radiologist Diagnosis unknown Orders [address] [place] [address] Social History Tobacco Use Types Packs/Day Years [...]
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
--- OUTSIDE RECORDS SUMMARY | 2017-05-01 20:01 | XMS REPORT | Encounter Summary ---
Author Author [facility] Organization [facility] Address Unknown Phone Unavailable Care Team Providers Care Demand Inspector Name Role Phone PCP Unavailable Encounter Details Date Type Department Care Team Description 03/05/2017 Hospital [facility] Encounter Hospital Radiology [address] [place], [place] [id number] Social History Tobacco Use Types Packs/Day Years [...] for Chest Pain. Max of 3 of [place] artery of tablets, call 911. [place] heart with stable angina pectoris (HCC), Essential [...]
--- OUTSIDE RECORDS SUMMARY | 2017-05-01 20:01 | XMS REPORT | Encounter Summary ---
Author Author [facility] Organization [facility] Address Unknown Phone Unavailable Care Team Providers Care Content Publisher Name Role Phone PCP Unavailable Encounter Details Date Type Department Care Team Description 03/05/2017 Hospital [facility] Encounter Hospital Radiology [address] [place], [place] [id number] Social History Tobacco Use Types Packs/Day Years [...] for Chest Pain. Max of 3 of [place] artery of tablets, call 911. [place] heart with stable angina pectoris (HCC), Essential [...]
--- OUTSIDE RECORDS SUMMARY | 2017-05-01 20:01 | XMS REPORT | Encounter Summary ---
Author Author [facility] Organization [facility] Address Unknown Phone Unavailable Care Team Providers Care Benzene Worker Name Role Phone PCP Unavailable Encounter Details Date Type Department Care Team Description 03/05/2017 Procedure Pass [facility] [address] [place] [address] Social History Tobacco Use Types [...]
[2017-05-01 20:05] LABS: BASOPHILS % (AUTO) 1 % (0-10); EOSINOPHILS # (AUTO) 0.4 10^3/uL (0.0-0.3); EOSINOPHILS % (AUTO) 7 % (0-10); LYMPHOCYTES # (AUTO) 1.6 X 10^3 (1.0-4.0); LYMPHOCYTES % (AUTO) 31 % (12-44); MEAN CORPUSCULAR HEMOGLOBIN 30 PG (25-34); MEAN CORPUSCULAR HGB CONC 33 G/DL (32-36); MEAN CORPUSCULAR VOLUME 90 FL (80-99); MEAN PLATELET VOLUME 8.9 FL (7.4-10.4); MONOCYTES # (AUTO) 0.8 X 10^3 (0.0-1.0); MONOCYTES % (AUTO) 16 % (0-12); NEUTROPHILS # (AUTO) 2.4 X 10^3 (1.8-7.8); NEUTROPHILS % (AUTO) 47 % (42-75); PLATELET COUNT 359 10^3/uL (130-400); RED BLOOD COUNT 3.87 10^6/uL (4.35-5.85); WHITE BLOOD COUNT 5.2 10^3/uL (4.3-11.0)
[2017-05-01 20:23] LABS: ANION GAP 9 MMOL/L (5-14); BLOOD UREA NITROGEN 21 MG/DL (7-18); BUN/CREATININE RATIO 17; CARBON DIOXIDE 23 MMOL/L (21-32); CHLORIDE 105 MMOL/L (98-107); CREATININE SERUM 1.22 MG/DL (0.60-1.30); GFR ESTIMATED > 60; GLUCOSE 121 MG/DL (70-105); POTASSIUM 4.3 MMOL/L (3.6-5.0); SODIUM 137 MMOL/L (135-145)
--- NOTE | 2017-05-01 21:52 | ED Headache ---
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 ALSO C/O RT SIDE FACIAL WEAKNESS ET NUMBNESS. NO OTHER C/O VOICED Nursing Sepsis Screen: No Definite Risk Source: patient Exam Limitations: no limitations History of Present Illness Time seen by provider: 19:55 Initial Comments This 56-year-old gentleman is well-known to me from prior visits. 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 He has been thoroughly worked up previously at this facility and [facility]. On his last visit for similar symptoms, a medication cocktail for atypical migraine was administered and worked well. Patient presents today with severe headache rated as a 10 on the pain scale. He is having difficulty with speech and right sided facial numbness and weakness. The symptoms are consistent with prior episodes. He is also notably hypertensive at present. He states compliance with his medications including his amitriptyline prescribed for migraine prevention. He has not followed up with [facility] neurology since his last visit to the ER. Patient also has a history of substance abuse but denies any substance use since his last visit. He is afebrile at present but his reports he has mild fevers with these episodes as well. Allergies and Home Medications Allergies Coded Allergies: penicillin G (Verified Allergy, Severe, SWELLING, 03/30/17) Home Medications Alprazolam 0.25 Mg Tablet, 0.25 MG PO BID PRN for ANXIETY, (Reported) Amitriptyline HCl 25 Mg Tablet, 25 MG PO HS, #30 Prescribed by: BILL HUERTA on 04/04/17 1301 Amitriptyline HCl 50 Mg Tablet, 50 MG PO HS, #30 Prescribed by: BILL HUERTA on 05/01/17 2154 Amlodipine Besylate 10 Mg Tablet, 10 MG PO DAILY, (Reported) Aspirin 81 Mg Tablet.dr, 81 MG PO HS, (Reported) Atorvastatin Calcium 10 Mg Tablet, 10 MG PO HS, (Reported) Bupropion HCl 150 Mg Tablet.er, 150 MG PO BID, (Reported) Buspirone HCl 15 Mg Tablet, 15 MG PO TID, (Reported) Carvedilol 3.125 Mg Tablet, 3.125 MG PO BID, (Reported) Ciprofloxacin HCl 500 Mg Tablet, 500 MG PO BID, #14 Ref 0 Prescribed by: RON NIEVES on 04/22/171918 Clonidine HCl 0.1 Mg Tablet, 0.1 MG PO TID, (Reported) Clopidogrel Bisulfate 75 Mg Tablet, 75 MG PO HS, (Reported) Isosorbide Mononitrate 30 Mg Tab.er.24h, 30 MG PO DAILY, (Reported) Losartan Potassium 50 Mg Tablet, 50 MG PO BID, (Reported) LAST FILLED #90 01-16-17 Nitroglycerin 0.4 Mg Tab.subl, 0.4 MG SL UD PRN for CHEST PAIN, (Reported) PLACE 1 TAB UNDER TONGUE NEEDED FOR CHEST PAIN; IF PAIN REMAINS AFTER 5 MINUTES, CALL 911 [place]-3 Fatty Acids/Fish Oil 1 Each Capsule, 1,000 MG PO BID, (Reported) Ranolazine 1,000 Mg Tab.er.12h, 500 MG PO BID, (Reported) TAKES 1/2 (1000MG) TABLET Red Yeast Rice 600 Mg Capsule, 3 CAP PO HS, (Reported) Sertraline HCl 50 Mg Tablet, 50 MG PO DAILY, (Reported) Tamsulosin HCl 0.4 Mg Cap, 0.4 MG PO DAILY, #14 Ref 0 Prescribed by: RON NIEVES on 04/22/171918 Trazodone HCl 100 Mg Tablet, 100 MG PO HS, (Reported) Constitutional: no symptoms reported Eyes: No Symptoms Reported Ears, Nose, Mouth, Throat: no symptoms reported Respiratory: no symptoms reported Cardiovascular: see HPI Gastrointestinal: no symptoms reported Genitourinary: no symptoms reported Musculoskeletal: no symptoms reported Skin: no symptoms reported Psychiatric/Neurological: See HPI Past Llqmhpe-Rzpppy-Lzyczb Hx Patient Social History Alcohol Use: Denies Use Number of Drinks Today: AA Alcohol Beverage of Choice: Beer Recreational Drug Use: No Smoking Status: Former Smoker Type Used: Cigarettes Former Smoker, Quit: Jan 25, 2017 2nd Hand Smoke Exposure: Yes Recent Foreign Travel: No Contact w/Someone Who Travel: No Recent Infectious Disease Expo: No Recent Hopitalizations: Yes (01/2017 FOR TIA/CHEST PAIN) Physical Abuse: No Sexual Abuse: No Mistreated: No Fear: No Immunizations Up To Date Tetanus Booster (TDap): Less than 5yrs PED Vaccines UTD: No Date of Influenza Vaccine: Dec 28, 2014 Seasonal Allergies Seasonal Allergies: No Surgeries History of Surgeries: Yes (hernia) Surgeries: Abdominal, Coronary Stent, Orthopedic Respiratory History of Respiratory Disorde: No Currently Using CPAP: No Currently Using BIPAP: No Cardiovascular History of Cardiac Disorders: Yes (CARDIAC STENTS) Cardiac Disorders: Coronary Artery Disease, Deep Vein Thrombosis, Heart Attack , High Cholesterol, Hypertension Neurological History of Neurological Disord: Yes Neurological Disorders: Headaches /Migraines (atypical migraines with severe headache, progressive neurologic deficits, hypertension, and mild fever), TIA Reproductive System Hx Reproductive Disorders: No Sexually Transmitted Disease: No Genitourinary History of Genitourinary Disor: Yes (recurrent urinary tract infections) Gastrointestinal History of Gastrointestinal Di: Yes Gastrointestinal Disorders: Gastroesophageal Reflux, Hiatal Hernia, Ulcer Musculoskeletal History of Musculoskeletal Dis: No Endocrine History of Endocrine Disorders: No HEENT History of HEENT Disorders: No Loss of Vision: Denies Cancer History of Cancer: No Psychosocial History of Psychiatric Problem: Yes Behavioral Health Disorders: Depression Suicide Risk Score: 0 Integumentary History of Skin or Integumenta: No Blood Transfusions History of Blood Disorders: No Adverse Reaction to a Blood Tr: No Family Medical History Significant Family History: Heart Disease, Hypertension Family Medial History: Arthritis 19 MOTHER SKIFF OPERATOR G8 SISTER FH: COPD (chronic obstructive pulmonary disease) Hypercholesterolemia 19 MOTHER Hypertension 19 MOTHER Physical Exam Vital Signs Vital Sign - Last 12Hours 05/01/17 19:52 Temp 99.5 Pulse 76 Resp 18 B/P (MAP) 175/96 Pulse Ox 98 O2 Delivery Room Air Capillary Refill : Less Than 3 Seconds General Appearance: WD/WN, moderate distress HEENT: PERRL/EOMI, normal ENT inspection Neck: normal inspection Cardiovascular: regular rate, rhythm, no edema, no murmur Respiratory: lungs clear, normal breath sounds, no respiratory distress, no accessory muscle use Gastrointestinal: normal bowel sounds, non tender, soft Extremities: normal inspection, no pedal edema Psychiatric: alert, oriented x 3 Crainal Nerves: normal hearing, PERRL, abnormal speech (dulled, delayed), facial droop (right-sided), facial paresthesias (right-sided) Motor/Sensory: no motor deficit Skin: normal color, warm/dry Progress/Results/Core Measures Results/Orders Lab Results Laboratory Tests Test 05/01/17 19:55 05/01/17 21:16 Range/Units White Blood Count 5.2 4.3-11.0 10^3/uL Red Blood Count 3.87 L 4.35-5.85 10^6/uL Hemoglobin 11.6 L 13.3-17.7 G/DL Hematocrit 35 L 40-54 % Mean Corpuscular Volume 90 80-99 FL Mean Corpuscular Hemoglobin 30 25-34 PG Mean Corpuscular Hemoglobin Concent 33 32-36 G/DL Red Cell Distribution Width 13.0 10.0-14.5 % Platelet Count 359 130-400 10^3/uL Mean Platelet Volume 8.9 7.4-10.4 FL Neutrophils (%) (Auto) 47 42-75 % Lymphocytes (%) (Auto) 31 12-44 % Monocytes (%) (Auto) 16 H 0-12 % Eosinophils (%) (Auto) 7 0-10 % Basophils (%) (Auto) 1 0-10 % Neutrophils # (Auto) 2.4 1.8-7.8 X 10^3 Lymphocytes # (Auto) 1.6 1.0-4.0 X 10^3 Monocytes # (Auto) 0.8 0.0-1.0 X 10^3 Eosinophils # (Auto) 0.4 H 0.0-0.3 10^3/uL Basophils # (Auto) 0.0 0.0-0.1 10^3/uL Sodium Level 137 135-145 MMOL/L Potassium Level 4.3 3.6-5.0 MMOL/L Chloride Level 105 98-107 MMOL/L Carbon Dioxide Level 23 21-32 MMOL/L Anion Gap 9 5-14 MMOL/L Blood Urea Nitrogen 21 H 7-18 MG/DL Creatinine 1.22 0.60-1.30 MG/DL Estimat Glomerular Filtration Rate > 60 BUN/Creatinine Ratio 17 Glucose Level 121 H 70-105 MG/DL Calcium Level 9.0 8.5-10.1 MG/DL Urine Opiates Screen NEGATIVE NEGATIVE Urine Oxycodone Screen NEGATIVE NEGATIVE Urine Methadone Screen NEGATIVE NEGATIVE Urine Propoxyphene Screen NEGATIVE NEGATIVE Urine Barbiturates Screen NEGATIVE NEGATIVE Ur Tricyclic Antidepressants Screen POSITIVE H NEGATIVE Urine Phencyclidine Screen NEGATIVE NEGATIVE Urine Amphetamines Screen POSITIVE H NEGATIVE Urine Methamphetamines Screen NEGATIVE NEGATIVE Urine Benzodiazepines Screen POSITIVE H NEGATIVE Urine Cocaine Screen NEGATIVE NEGATIVE Urine Cannabinoids Screen POSITIVE H NEGATIVE My Orders Orders - BILL APONTE MD Basic Metabolic Panel (05/01/17 19:59) Cbc With Automated Diff (05/01/17 19:59) Drug Screen Stat (Urine) (05/01/17 19:59) Monitor-Rhythm Ecg Trace Only (05/01/17 19:59) Saline Lock/Iv-Start (05/01/17 19:59) Ns Iv 1000 Ml (Sodium Chloride 0.9%) (05/01/17 19:59) Prochlorperazine Injection (Compazine In (05/01/17 20:00) Diphenhydramine Injection (Benadryl Inje (05/01/17 20:00) Magnesium 1 Gm/100 Ml Ivpb (Magnesium Tejeda (05/01/17 20:00) Magnesium 1 Gm/100 Ml Ivpb (Magnesium Tejeda (05/01/17 20:00) Ketorolac Injection (Toradol Injection) (05/01/17 20:00) Medications Given in ED Vital Signs/I&O Vital Sign - Last 12Hours 05/01/17 05/01/17 19:52 22:01 Temp 99.5 Pulse 76 63 Resp 18 18 B/P (MAP) 175/96 Pulse Ox 98 99 O2 Delivery Room Air Room Air Blood Pressure Mean: 122 Progress Note : Time: 21:52 Progress Note Patient's symptoms completely resolved with the migraine cocktail and blood pressure normalized. Urine drug screen was positive for amphetamines and marijuana. Patient adamantly denies any substance use for a prolonged period of time. An increased dose of amitriptyline was prescribed. Patient was strongly encouraged to seek referral to a neurologist or follow-up with neurology. Departure Impression Impression: Primary Impression: Atypical migraine Disposition: 01 HOME, SELF-CARE Condition: Improved Departure-Patient Inst. Decision time for Depature: 21:53 Referrals: ANDRES RABAGO DO (PCP/Family) Primary Care Physician Patient Instructions: Migraine Headache (DC) Add. Discharge Instructions: Follow-up with Dr. Rabago and neurology as soon as possible. Increase your amitriptyline dose to 50 mg at night. Return to the ER if symptoms worsen again. Present the following cocktail to any ER provider you see in the future for symptoms of atypical migraine: Migraine cocktail for atypical migraines: IV hydration Compazine 10 mg IV Benadryl 25 mg by mouth Magnesium sulfate 2 g IV Toradol 15-30 mg IV This cocktail can be repeated 2 or 3 times if needed. Depakote 500 mg IV may be added on the second or third round if necessary. All discharge instructions reviewed with patient and/or family. Voiced understanding. Scripts Amitriptyline HCl (Amitriptyline HCl) 50 Mg Tablet 50 MG PO HS, #30 TAB Prov: BILL APONTE MD 05/01/17 Copy Copies To 1: ANDRES RABAGO JOSHUA T MD May 01, 2017 21:52
[2017-05-01] MEDS ORDERED: AMIT50TA3 PO (21:54)
[2017-05-01 22:01] VITALS: BP 144/96
== END 2017-05-01 22:01 | disposition home or self-care (01) ==
LOC: EDUNIT# 19:54 → ER 19:55
DX: G43.909 Migraine, unspecified, not intractable, without status migrainosus (principal); I25.10 Atherosclerotic heart disease of native coronary artery without angina pectoris; I25.2 Old myocardial infarction; E78.00 Pure hypercholesterolemia, unspecified; I10 Essential (primary) hypertension; K21.9 Gastro-esophageal reflux disease without esophagitis; F32.9 Major depressive disorder, single episode, unspecified; Z82.49 Family history of ischemic heart disease and other diseases of the circulatory system; Z87.19 Personal history of other diseases of the digestive system; Z87.440 Personal history of urinary (tract) infections; Z86.718 Personal history of other venous thrombosis and embolism; Z79.82 Long term (current) use of aspirin; Z87.891 Personal history of nicotine dependence; Z86.73 Personal history of transient ischemic attack (TIA), and cerebral infarction without residual deficits; Z95.5 Presence of coronary angioplasty implant and graft
CPT/HCPCS: 36415; 80048; 80306; 85025; 93041

== ENCOUNTER → 2017-05-25 | Outpatient (CLI) | payer SELFPAY ==
[~2017-05-25] MED LIST changes: +AMIT50TA3 PO; -IBUP-15 PO; +IBUP-16 PO
[2017-05-25 12:32] LABS: RED BLOOD COUNT 3.81 10^6/uL (4.35-5.85); RED CELL DISTRIBUTION WIDTH 12.9 % (10.0-14.5); WHITE BLOOD COUNT 5.3 10^3/uL (4.3-11.0)
== END ==
LOC: LAB 12:14
PROVIDERS: ATTEND Family Medicine
DX: K92.0 Hematemesis (principal)
CPT/HCPCS: 36415; 85027

== ENCOUNTER 2017-06-15 18:13 | Observation (INO) | payer SELFPAY ==
[~2017-06-15] VITALS: Ht 175.3 cm; Wt 81.9 kg
[2017-06-15] MEDS ORDERED: morphine INJ 10 MG/ML 1ML (SYR OR VIAL) IVP STA (18:22)
[2017-06-15] MEDS ORDERED: ASPIRIN 81 MG CHEW (CHILDREN'S ASA) PO ONE (18:30)
[2017-06-15 18:33] LABS: BASOPHILS % (AUTO) 1 % (0-10); EOSINOPHILS # (AUTO) 0.4 10^3/uL (0.0-0.3); EOSINOPHILS % (AUTO) 8 % (0-10); HEMATOCRIT 35 % (40-54); HEMOGLOBIN 11.4 G/DL (13.3-17.7); LYMPHOCYTES # (AUTO) 1.6 X 10^3 (1.0-4.0); LYMPHOCYTES % (AUTO) 32 % (12-44); MEAN CORPUSCULAR HEMOGLOBIN 29 PG (25-34); MEAN CORPUSCULAR HGB CONC 33 G/DL (32-36); MEAN CORPUSCULAR VOLUME 88 FL (80-99); MEAN PLATELET VOLUME 9.6 FL (7.4-10.4); MONOCYTES # (AUTO) 0.7 X 10^3 (0.0-1.0); MONOCYTES % (AUTO) 14 % (0-12); NEUTROPHILS # (AUTO) 2.3 X 10^3 (1.8-7.8); NEUTROPHILS % (AUTO) 46 % (42-75); PLATELET COUNT 287 10^3/uL (130-400); RED BLOOD COUNT 3.96 10^6/uL (4.35-5.85); RED CELL DISTRIBUTION WIDTH 12.3 % (10.0-14.5)
[2017-06-15 18:47] LABS: ALANINE AMINOTRANSFERASE 21 U/L (0-55); ALBUMIN 3.9 GM/DL (3.2-4.5); ALKALINE PHOSPHATASE 138 U/L (40-136); BILIRUBIN,TOTAL 0.2 MG/DL (0.1-1.0); BUN/CREATININE RATIO 13; CALCIUM 8.9 MG/DL (8.5-10.1); CARBON DIOXIDE 23 MMOL/L (21-32); CHLORIDE 105 MMOL/L (98-107); CREATININE SERUM 1.42 MG/DL (0.60-1.30); GFR ESTIMATED 52; GLUCOSE 95 MG/DL (70-105); POTASSIUM 4.4 MMOL/L (3.6-5.0); SODIUM 138 MMOL/L (135-145); TOTAL PROTEIN 7.3 GM/DL (6.4-8.2)
--- NOTE | 2017-06-15 18:48 | ED Chest Pain ---
General Chief Complaint: Chest Pain Stated Complaint: CHEST PAIN Nursing Triage Note: PT AMBULATES TO ROOM 7 FROM TRIAGE W CO OF CHEST PAIN SINCE YESTERDAY. PT STATES HAS SOME WEAKNESS NOTED RATES PAIN 5/10. Nursing Sepsis Screen: No Definite Risk Source: patient Exam Limitations: no limitations History of Present Illness Time seen by provider: 18:16 Initial Comments Here with report of central chest discomfort that radiated up to his neck and jaw on the left and to the left arm. Onset yesterday it has persisted since. He did use his aspirin last night. Has not tried nitroglycerin. Patient has history of headaches that are described as migraines with hemiplegia and have been found to be associated with his isosorbide and nitroglycerin. He did not try nitroglycerin for this chest pain. Does have known cardiac disease and had 2 procedures done earlier this year. Patient previously was a smoker and quit in August of this year. Denies nausea, vomiting or sweating but has had some weakness. 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) NTG SL ARTIFICIAL LOG MACHINE OPERATOR: No Associated Symptoms: No abdominal pain, No diaphoresis, No fever/chills, No nausea/vomiting, No shortness of breath, weakness Allergies and Home Medications Allergies Coded Allergies: penicillin G (Verified Allergy, Severe, SWELLING, 03/30/17) Home Medications Alprazolam 0.25 Mg Tablet, 0.25 MG PO BID PRN for ANXIETY, (Reported) Amlodipine Besylate 10 Mg Tablet, 10 MG PO DAILY, (Reported) Aspirin 81 Mg Tablet.dr, 81 MG PO HS, (Reported) Atorvastatin Calcium 10 Mg Tablet, 10 MG PO HS, (Reported) Bupropion HCl 150 Mg Tablet.er, 150 MG PO BID, (Reported) Buspirone HCl 15 Mg Tablet, 15 MG PO TID, (Reported) Carvedilol 3.125 Mg Tablet, 3.125 MG PO BID, (Reported) Clonidine HCl 0.1 Mg Tablet, 0.1 MG PO TID, (Reported) Clopidogrel Bisulfate 75 Mg Tablet, 75 MG PO HS, (Reported) Isosorbide Mononitrate 30 Mg Tab.er.24h, 30 MG PO DAILY, (Reported) Losartan Potassium 50 Mg Tablet, 50 MG PO BID, (Reported) LAST FILLED #90 7-30-17 Nitroglycerin 0.4 Mg Tab.subl, 0.4 MG SL UD PRN for CHEST PAIN, (Reported) PLACE 1 TAB UNDER TONGUE NEEDED FOR CHEST PAIN; IF PAIN REMAINS AFTER 5 MINUTES, CALL 911 [place]-3 Fatty Acids/Fish Oil 1 Each Capsule, 1,000 MG PO BID, (Reported) Red Yeast Rice 600 Mg Capsule, 3 CAP PO HS, (Reported) Sertraline HCl 50 Mg Tablet, 50 MG PO DAILY, (Reported) Review of Systems Constitutional: see HPI, No chills, No fever EENTM: No Symptoms Reported Respiratory: No Symptoms Reported Cardiovascular: See HPI, Chest Pain, Denies Edema Gastrointestinal: No Symptoms Reported Genitourinary: No Symptoms Reported Musculoskeletal: No joint pain, muscle pain Skin: no symptoms reported Psychiatric/Neurological: No Symptoms Reported All Other Systems Reviewed Negative Unless Noted: Yes Past Gqtlljf-Xsgefc-Gewdej Hx Patient Social History Alcohol Use: Past History Number of Drinks Today: AA Alcohol Beverage of Choice: Beer Recreational Drug Use: No Type Used: Cigarettes Former Smoker, Quit: Jan 25, 2017 2nd Hand Smoke Exposure: Yes Recent Foreign Travel: No Contact w/Someone Who Travel: No Recent Infectious Disease Expo: No Recent Hopitalizations: No Physical Abuse: No Sexual Abuse: No Immunizations Up To Date Tetanus Booster (TDap): Less than 5yrs PED Vaccines UTD: No Date of Influenza Vaccine: Mar 23, 2017 Seasonal Allergies Seasonal Allergies: No Surgeries History of Surgeries: Yes (hernia) Surgeries: Abdominal, Coronary Stent, Orthopedic Respiratory History of Respiratory Disorde: No Currently Using CPAP: No Currently Using BIPAP: No Cardiovascular History of Cardiac Disorders: Yes (CARDIAC STENTS) Cardiac Disorders: Coronary Artery Disease, Deep Vein Thrombosis, Heart Attack , High Cholesterol, Hypertension Neurological History of Neurological Disord: Yes Neurological Disorders: Headaches /Migraines, TIA Reproductive System Hx Reproductive Disorders: No Sexually Transmitted Disease: No Genitourinary History of Genitourinary Disor: Yes (recurrent urinary tract infections) Gastrointestinal History of Gastrointestinal Di: Yes Gastrointestinal Disorders: Gastroesophageal Reflux, Hiatal Hernia, Ulcer Musculoskeletal History of Musculoskeletal Dis: No Endocrine History of Endocrine Disorders: No HEENT History of HEENT Disorders: No Loss of Vision: Denies Cancer History of Cancer: No Psychosocial History of Psychiatric Problem: Yes Behavioral Health Disorders: Depression Suicide Risk Score: 0 Integumentary History of Skin or Integumenta: No Blood Transfusions History of Blood Disorders: No Adverse Reaction to a Blood Tr: No Reviewed Nursing Assessment Reviewed/Agree w Nursing PMH: Yes Family Medical History Significant Family History: Heart Disease, Hypertension Family Medial History: Arthritis 19 MOTHER BRANCH ASSISTANT G8 SISTER FH: COPD (chronic obstructive pulmonary disease) Hypercholesterolemia 19 MOTHER Hypertension 19 MOTHER Physical Exam Vital Signs Vital Sign - Last 12Hours 06/15/17 18:15 Temp 98.6 Pulse 57 Resp 18 B/P (MAP) 188/96 (126) Pulse Ox 96 Capillary Refill : Less Than 3 Seconds General Appearance: No Apparent Distress, WD/WN HEENT: PERRL/EOMI, Pharynx Normal Neck: Normal Inspection, Non Tender, Supple Respiratory: Lungs Clear, Normal Breath Sounds Cardiovascular: Regular Rate, Rhythm, No Murmur Gastrointestinal: Non Tender, Soft Extremity: Normal Range of Motion, Non Tender Neurologic/Psychiatric: Alert, Oriented x3 Skin: Normal Color, Warm/Dry Progress/Results/Core Measures Results/Orders Lab Results Laboratory Tests Test 06/15/17 18:20 Range/Units White Blood Count 5.0 4.3-11.0 10^3/uL Red Blood Count 3.96 L 4.35-5.85 10^6/uL Hemoglobin 11.4 L 13.3-17.7 G/DL Hematocrit 35 L 40-54 % Mean Corpuscular Volume 88 80-99 FL Mean Corpuscular Hemoglobin 29 25-34 PG Mean Corpuscular Hemoglobin Concent 33 32-36 G/DL Red Cell Distribution Width 12.3 10.0-14.5 % Platelet Count 287 130-400 10^3/uL Mean Platelet Volume 9.6 7.4-10.4 FL Neutrophils (%) (Auto) 46 42-75 % Lymphocytes (%) (Auto) 32 12-44 % Monocytes (%) (Auto) 14 H 0-12 % Eosinophils (%) (Auto) 8 0-10 % Basophils (%) (Auto) 1 0-10 % Neutrophils # (Auto) 2.3 1.8-7.8 X 10^3 Lymphocytes # (Auto) 1.6 1.0-4.0 X 10^3 Monocytes # (Auto) 0.7 0.0-1.0 X 10^3 Eosinophils # (Auto) 0.4 H 0.0-0.3 10^3/uL Basophils # (Auto) 0.0 0.0-0.1 10^3/uL Prothrombin Time 11.8 L 12.2-14.7 SEC INR Comment 0.9 0.8-1.4 Activated Partial Thromboplast Time 20 L 24-35 SEC D-Dimer 0.49 0.00-0.49 UG/ML Sodium Level 138 135-145 MMOL/L Potassium Level 4.4 3.6-5.0 MMOL/L Chloride Level 105 98-107 MMOL/L Carbon Dioxide Level 23 21-32 MMOL/L Anion Gap 10 5-14 MMOL/L Blood Urea Nitrogen 18 7-18 MG/DL Creatinine 1.42 H 0.60-1.30 MG/DL Estimat Glomerular Filtration Rate 52 BUN/Creatinine Ratio 13 Glucose Level 95 70-105 MG/DL Calcium Level 8.9 8.5-10.1 MG/DL Magnesium Level 2.0 1.8-2.4 MG/DL Total Bilirubin 0.2 0.1-1.0 MG/DL Aspartate Amino Transf (AST/SGOT) 17 5-34 U/L Alanine Aminotransferase (ALT/SGPT) 21 0-55 U/L Alkaline Phosphatase 138 H 40-136 U/L Myoglobin 40.7 10.0-92.0 NG/ML Troponin I < 0.30 <0.30 NG/ML Total Protein 7.3 6.4-8.2 GM/DL Albumin 3.9 3.2-4.5 GM/DL My Orders Orders - BRITNEY CEE MD Cbc With Automated Diff (06/15/17 18:22) Magnesium (06/15/17 18:22) Chest 1 View, Ap/Pa Only (06/15/17 18:22) Ekg Tracing (06/15/17 18:22) Cardiac Profile 1 (06/15/17 18:22) Comprehensive Metabolic Panel (06/15/17 18:22) Myoglobin Serum (06/15/17 18:22) Protime With Inr (06/15/17 18:22) Partial Thromboplastin Time (06/15/17 18:22) O2 (06/15/17 18:22) Monitor-Rhythm Ecg Trace Only (06/15/17 18:22) Lipid Panel (06/16/17 06:00) Aspirin Chewable Tablet (Baby Aspirin Ch (06/15/17 18:30) Saline Lock/Iv-Start (06/15/17 18:22) Fibrin Degradation Products (06/15/17 18:22) Morphine Injection (Morphine Injection (06/15/17 18:22) Medications Given in ED Current Medications Medications Dose Ordered Sig/Mckenzie Route Start Time Stop Time Status Last Admin Dose Admin Aspirin 324 mg ONCE ONCE PO 06/15/17 18:30 06/15/17 18:31 DC 06/15/17 18:40 324 MG Vital Signs/I&O Vital Sign - Last 12Hours 06/15/17 18:15 Temp 98.6 Pulse 57 Resp 18 B/P (MAP) 188/96 (126) Pulse Ox 96 Blood Pressure Mean: 126 Progress Note : Progress Note Seen and evaluated. IV, labs, EKG and chest x-ray ordered. ASA 324 mg by mouth ordered. I did avoid nitroglycerin at this point as patient does have history of the migraines with hemiplegia associated with nitroglycerin. Morphine 2 mg IV given. Monitor patient. 1937: Labs are negative at this point. No significant findings noted. I did discuss this with the patient. He is feeling better and still has concerns. He does have significant cardiac history. Probably in his best interest to watch him overnight. This was discussed with the patient and he agrees. I did discuss the case with Dr. Rabago, patient's primary and he accepts patient for admission, observation status. Consult Dr. Zimmerman, on-call for Dr. Lao. He accepts patient in consult. ECG Initial ECG Impression Date: Jun 15, 2017 Initial ECG Impression Time: 18:18 Initial ECG Rate: 58 Initial ECG Rhythm: Normal Sinus Initial ECG Comparisson: Unchanged Comment Sinus rhythm with left atrial abnormality. Normal axis. No evidence of ST elevation NC. Similar to previous of 04/22/17. Interpreted by me. Diagnostic Imaging Diagonstic Imaging: Xray Plain Films/CT/US/NM/MRI: chest Comments NAME: [facility] REC#: [id number] PT STATUS: REG ER : 1960 PHYSICIAN: BRITNEY CEE MD ADMIT DATE: 06/15/17/ER Signed Date of Exam: 06/15/17 CHEST 1 VIEW, AP/PA ONLY INDICATION: Chest pain since yesterday. EXAMINATION: Chest 06/15/2017. COMPARISON: 04/22/2017. FINDINGS: The cardiomediastinal silhouette is unremarkable. The pulmonary vasculature is within normal limits. The lungs and pleural spaces are clear. IMPRESSION: No evidence of an acute cardiopulmonary process. Dictated by: Dictated on workstation # [id number] Dict: 06/15/171901 Trans: 06/15/171924 Interpreted by: ANGE ANDRES MD Electronically signed by: ANGE ANDRES MD 06/15/171924 Departure Communication (Admissions) Time/Spoke to Admitting Phy: 19:37 Time/Spoke to Consulting Phy: 19:39 Impression Impression: Primary Impression: Chest pain Qualified Codes: R07.9 - Chest pain, unspecified Disposition: ADMITTED INPATIENT Condition: Stable Admissions Decision to Admit Reason: Admit from ER (General) Decision to Admit/Date: Jun 15, 2017 Time/Decision to Admit Time: 19:37 Departure-Patient Inst. Referrals: ANDRES RABAGO DO (PCP/Family) Primary Care Physician BRITNEY CEE MD Jun 15, 2017 18:48
[2017-06-15 18:52] LABS: INR 0.9 (0.8-1.4); PROTHROMBIN TIME PATIENT 11.8 SEC (12.2-14.7)
[2017-06-15 18:53] LABS: MYOGLOBIN SERUM 40.7 NG/ML (10.0-92.0)
--- NOTE | 2017-06-15 19:12 | Diagnostic Imaging Report ---
INDICATION: Chest pain since yesterday. EXAMINATION: Chest 06/15/2017. COMPARISON: 04/22/2017. FINDINGS: The cardiomediastinal silhouette is unremarkable. The pulmonary vasculature is within normal limits. The lungs and pleural spaces are clear. IMPRESSION: No evidence of an acute cardiopulmonary process. Dictated by: Dictated on workstation # [id number]
--- OUTSIDE RECORDS SUMMARY | 2017-06-15 19:51 | XMS REPORT | Continuity of Care Document ---
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 Name Role Phone [employer] Unavailable Unavailable Problems Medications Allergies, Adverse Reactions, Alerts Immunizations Results Vital Signs Encounters Location Location Details Encounter Type Encounter Number Reason For Visit Attending Provider ADM Date DC Date Status Source OUTPATIENT [id number] MUKESH SMITH 08/09/2016 Active [facility] INPATIENT [id number] JACKELYN MURDOCK 03/06/20172016 Active [facility] OUTPATIENT [id number] ROME TRINH 04/07/2017 Active [facility] O ROME TRINH Active [facility] Procedures Plan of Care Social History Assessment and Plan Family History Value Date Source Advance Directives Order Name Results Value Date Source
--- OUTSIDE RECORDS SUMMARY | 2017-06-15 19:52 | XMS REPORT | Clinical Summary ---
Author Author [facility] Organization [facility] Address Unknown Phone Unavailable Care Team Providers Care Behavior Clinician Name Role Phone PCP Unavailable Source Comments Some departments are not documenting in the electronic medical record. If you do not see the information that you expected, contact Release of Information in the Health Information Management department at [phone] for further assistance in locating additional records.[facility] Allergies Active Allergy Reactions Severity Noted [...] for Chest Pain. Max of 3 of rosebud artery of tablets, call 911. 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 fish oil- omega 3-DHA/EPA Take 1 Cap by mouth twice Active 300/1,000 mg capsule daily. BUPROPION HCL (WELLBUTRIN Take 150 mg by mouth Active SR PO) twice daily. omeprazole DR(+) Take 20 mg by mouth Active (PRILOSEC) 20 mg capsule daily. amLODIPine (NORVASC) 10 Take 1 Tab by mouth 90 Tab 3 01/15/20 Active mg tablet daily. 17 atorvastatin (LIPITOR) 10 Take 10 mg by mouth Active mg tablet daily. ranolazine ER (RANEXA) Take 1 tablet by mouth 60 tablet 3 05/16/20 Active 1,000 mg tablet twice daily. 17 losartan(+) (COZAAR) 100 Take 1 tablet by mouth 90 tablet 3 05/16/20 Active mg tablet daily. 17 Active Problems Problem Noted Date Episode of transient neurologic symptoms 03/06/2017 Weakness 01/14/2017 Dysphagia 01/14/2017 GERI (acute kidney injury) ([facility]) 01/13/2017 Unstable angina (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) Overview: 07/29/16: heart cath ([place], [place]) - total occlusion of the right [...] Encounters Date Type Specialty Care Team Description 05/16/2017 Office Visit Cardiology David Simms MD Cardiac Eval ( Scheduled per [facility]; f/u for CAD, Mixed HLD) from Last 3 Months Family History Medical [...] Vital Sign Reading Time Taken Blood Pressure 150/72 05/16/2017 3:11 PM PATHOLOGY SPECIALIST Pulse 73 05/16/2017 3:11 PM PATHOLOGY SPECIALIST Temperature 36.8 C (98.2 F) 03/06/2017 1:42 PM CDT Respiratory Rate - - Oxygen Saturation 96% 03/06/2017 1:42 PM CDT Inhaled Oxygen - - Concentration Weight 82.6 kg (182 lb) 05/16/2017 3:11 PM PATHOLOGY SPECIALIST Height 175.3 cm (5' 9") 05/16/2017 3:11 PM PATHOLOGY SPECIALIST Body Mass Index 26.88 05/16/2017 3:11 PM PATHOLOGY SPECIALIST Plan of Treatment Health Maintenance Due Date Last Done Comments HEPATITIS C SCREENING 1961 PHYSICAL (COMPREHENSIVE) 1968 EXAM PERTUSSIS VACCINE 1972 TETANUS VACCINE 1978 COLORECTAL CANCER 2011 SCREENING INFLUENZA VACCINE 01/18/2017 Results Not on filefrom Last 3 Months
--- OUTSIDE RECORDS SUMMARY | 2017-06-15 19:52 | XMS REPORT | Encounter Summary ---
Author Author [facility] Organization [facility] Address Unknown Phone Unavailable Care Team Providers Care Highway Commissioner Name Role Phone PCP Unavailable Reason for Visit * Reason Comments Cardiac Eval Scheduled per [facility]; f/u for CAD, Mixed HLD Encounter Details Date Type Department Care Team Description 05/16/2017 Office Visit [facility] David Simms MD Cardiac Eval (Scheduled [address] per [facility]; f/u for Tru [address] CAD, Mixed HLD) [place] [address] [place] [address] [phone] Social History Tobacco Use Types Packs/Day Years Used Date Current Every Day Smoker Cigarettes Alcohol Use Drinks/Week oz/Week Comments Yes 0 Standard 0.0 drinks or equivalent Sex Assigned at Date Recorded Not on file as of this encounter Last Filed Vital Signs Vital Sign Reading Time Taken Blood Pressure 150/72 05/16/2017 3:11 PM [employer] Pulse 73 05/16/2017 3:11 PM [employer] Temperature - - Respiratory Rate - - Oxygen Saturation - - Inhaled Oxygen - - Concentration Weight 82.6 kg (182 lb) 05/16/2017 3:11 PM [employer] Height 175.3 cm (5' 9") 05/16/2017 3:11 PM [employer] Body Mass Index 26.88 05/16/2017 3:11 PM [employer] in this encounter Functional Status Functional Status Response Date of Assessment Does the patient have a hearing impairment: No 03/06/2017 as of this encounter Instructions * Patient Instructions - David Simms MD - 05/16/2017 3:30 PM [employer] Increase the Ranexa to 1000mg twice daily Stop the Imdur Take plavix through July Increase Losartan to 100mg daily in this encounter Progress Notes * David Simms MD - 05/16/2017 3:30 PM [employer] Formatting of this note may be different from the original. Date of Service: 05/16/2017 Kaz Restrepo is a 56 y[address] male[address] HPI [address]. Simms and I had the pleasure of seeing Kza Restrepo for cardiac follow-up. He is a 56-year-old with history of coronary disease, hypertension, hyperlipidemia and tobacco use. He had PCI to chronic total occlusion of the right coronary artery in July of this year and he had moderate stenosis to the intermediate ramus and high-grade stenosis to distal circumflex which is a small vessel. He was readmitted a few days later for chest discomfort and taken back to the [facility] but there was no change in his anatomy. He has really had no significant change in his symptoms with revascularization. He continues have chest discomfort which is atypical and occurs at rest. He describes it as a sharp shooting pain that comes on suddenly. His thinks that his symptoms may be in part related to anxiety. He has been on isosorbide and was started on ranolazine 500 mg twice a day. He has had problems with migraines and significant headaches and has been admitted on at least 2 occasions for strokelike symptoms which were felt to be complex migraines. Isosorbide was decrease with no improvement in his headaches but also no change to his chest discomfort. He was also noted to have a PE and was on Eliquis although that was recently discontinued. Vitals: 05/16/17 1511 BP: 150/72 Pulse: 73 Weight: 82.6 kg (182 lb) Height: 1.753 m (5' 9") Body mass index is 26.88 kg/(m^2). Past Medical History Patient Active Problem List Diagnosis Date Noted Episode of transient neurologic symptoms 03/06/2017 Weakness 01/14/2017 Dysphagia 01/14/2017 GERI (acute kidney injury) ([facility]) 01/13/2017 Unstable angina ([facility]) 08/13/2016 Coronary artery disease of [place] artery of [place] heart with stable angina pectoris (HCC) 08/09/2016 07/29/16: heart cath ([address] [place], [place]) - total occlusion of the right [...] 08/09/2016 Review of Systems Constitution: Positive for fever and weight gain. HENT: Positive for odynophagia and sore throat. Eyes: Positive for pain. Cardiovascular: Positive for chest pain, claudication and dyspnea on exertion. Respiratory: Positive for cough, hemoptysis and snoring. Endocrine: Negative. Hematologic/Lymphatic: Negative. Skin: Negative. Musculoskeletal: Positive for back pain, muscle cramps, muscle weakness and neck pain. Gastrointestinal: Positive for diarrhea, heartburn and nausea. Genitourinary: Positive for decreased libido and incomplete emptying. Neurological: Positive for dizziness, light-headedness, loss of balance and paresthesias. Psychiatric/Behavioral: Positive for depression. The patient has insomnia and is nervous/anxious. Physical Exam General Appearance: no acute distress [...] is normal. Judgment and thought content normal. Cardiovascular Studies Problems Addressed Today Encounter Diagnoses Name Primary? Coronary artery disease of [place] artery of [place] heart with stable angina pectoris (HCC) Yes Essential hypertension Mixed hyperlipidemia Chest pain, unspecified type Assessment and Plan In summary Mr. Restrepo has the following issues: 1. Coronary artery disease. He had PCI to NUT CRACKER of the right coronary artery in July of this year. He continues to have chest discomfort that is atypical and there really was no improvement with revascularization. His chest discomfort may not be cardiac in etiology. He is on isosorbide but is having problems with significant headaches and migraines and ideally he should be off the medication. We will discontinue it for now and increase ranolazine to 1000 twice a day. He should continue Plavix through July. He should continue to follow with Dr. Cochran, his primary ux visual designer. 2. Hypertension. His blood pressures a little elevated today. We will increase losartan to 100 mg daily. 3. Dyslipidemia. He is had trouble tolerating statins and but is currently on atorvastatin 10 mg daily. He states he had his cholesterol checked 2 weeks ago but we do not have the results. He likely needs an increase in the dose. We will follow-up with him on an as-needed basis. Thank you for allowing us to participate in care of this pleasant individual. If you have questions or concerns please not hesitate contact us. MANUEL Sanchez Mr. Restrepo was seen in the office today for follow-up and has continued to have some anginal type chest discomfort. His main complaint really is discomfort in the calves when he walks. He describes some difficulties and cramping after about 15-20 feet. He does have good palpable pulses in both lower extremities. In addition, he has had some complex migraines which may be exacerbated by his isosorbide mononitrate. We will plan to discontinue the Imdur and exchange for increasing the Ranexa to 1000 mg twice daily. He is going to be seeing Dr. Lao back in the office in about a month for follow-up. Physical Exam GEN: alert and oriented, no acute distress HEENT: unremarkable, EOMI, PERRL CHEST: Clear to auscultation bilaterally without focal rales, wheezes or rhonchi CV: Reg rhythm, nml rate; nml S1 & S2, no S3 or S4; no rub; no murmurs ABD: soft, nontender, BS+, no masses or bruits, no organomegaly EXT: no c/c/e, 2+ distal pulses NEURO: nonfocal Mood and Affect: appropriate David Simms MD Current Medications (including today's revisions) amLODIPine (NORVASC) 10 mg tablet Take 1 Tab by mouth daily. aspirin EC 81 mg tablet Take 81 mg by mouth at bedtime daily. Take with food. atorvastatin (LIPITOR) 10 mg tablet Take 10 mg by mouth daily. BUPROPION HCL (WELLBUTRIN SR PO) Take 150 mg by mouth twice daily. clopiDOGrel (PLAVIX) 75 mg tablet Take 75 mg by mouth at bedtime daily. fish oil- omega 3-DHA/EPA 300/1,000 mg capsule Take 1 Cap by mouth twice daily. isosorbide mononitrate SR (IMDUR) 30 mg tablet Take 30 mg by mouth every morning. losartan (COZAAR) 50 mg tablet Take 1 Tab by mouth daily. nitroglycerin (NITROSTAT) 0.[address] 1 Tab under tongue every 5 minutes as needed for Chest Pain. Max of 3 tablets, call 911. omeprazole DR(+) (PRILOSEC) 20 mg capsule Take 20 mg by mouth daily. ranolazine ER (RANEXA) 500 mg tablet Take 500 mg by mouth twice daily. in this encounter Plan of Treatment Not on fileas of this encounter Visit Diagnoses Diagnosis Coronary artery disease of [place] artery of [place] heart with stable angina pectoris (HCC) - Primary Essential hypertension Unspecified essential hypertension Mixed hyperlipidemia Chest pain, unspecified type in this encounter
[2017-06-15] MEDS ORDERED: NS IV 1000 ML 1,000 ML ONE (20:43)
[2017-06-15] MEDS: NS IV 1000 ML 1,000 ML IV SCH (20:51)
[2017-06-15] MEDS ORDERED: CATHETER FLUSH 10 ML SYR IV PRN (21:15)
[2017-06-15] MEDS: CATHETER FLUSH 10 ML SYR IV SCH (23:17)
[2017-06-16] VITALS (7 sets, daily range): BP systolic 120–173; BP diastolic 67–92
[2017-06-16 05:25] LABS: BASOPHILS % (AUTO) 1 % (0-10); EOSINOPHILS # (AUTO) 0.3 10^3/uL (0.0-0.3); EOSINOPHILS % (AUTO) 8 % (0-10); HEMATOCRIT 36 % (40-54); HEMOGLOBIN 11.7 G/DL (13.3-17.7); LYMPHOCYTES # (AUTO) 1.3 X 10^3 (1.0-4.0); LYMPHOCYTES % (AUTO) 32 % (12-44); MEAN CORPUSCULAR HEMOGLOBIN 29 PG (25-34); MEAN CORPUSCULAR HGB CONC 33 G/DL (32-36); MEAN CORPUSCULAR VOLUME 88 FL (80-99); MEAN PLATELET VOLUME 9.6 FL (7.4-10.4); MONOCYTES # (AUTO) 0.5 X 10^3 (0.0-1.0); MONOCYTES % (AUTO) 13 % (0-12); NEUTROPHILS # (AUTO) 1.8 X 10^3 (1.8-7.8); NEUTROPHILS % (AUTO) 46 % (42-75); PLATELET COUNT 271 10^3/uL (130-400); RED BLOOD COUNT 4.06 10^6/uL (4.35-5.85); RED CELL DISTRIBUTION WIDTH 12.4 % (10.0-14.5)
[2017-06-16 06:03] LABS: ALANINE AMINOTRANSFERASE 21 U/L (0-55); ALBUMIN 3.7 GM/DL (3.2-4.5); ALKALINE PHOSPHATASE 143 U/L (40-136); BILIRUBIN,TOTAL 0.2 MG/DL (0.1-1.0); BUN/CREATININE RATIO 14; CALCIUM 8.4 MG/DL (8.5-10.1); CARBON DIOXIDE 20 MMOL/L (21-32); CHLORIDE 106 MMOL/L (98-107); CHOLESTEROL 161 MG/DL (< 200); GFR ESTIMATED > 60; GLUCOSE 105 MG/DL (70-105); HDL CHOLESTEROL 31 MG/DL (40-60); POTASSIUM 4.1 MMOL/L (3.6-5.0); SODIUM 140 MMOL/L (135-145); TOTAL PROTEIN 6.6 GM/DL (6.4-8.2); TRIGLYCERIDES 311 MG/DL (<150); VLDL CHOLESTEROL 62 MG/DL (5-40)
[2017-06-16 06:36] LABS: CHOLESTEROL 164 MG/DL (< 200); HDL CHOLESTEROL 31 MG/DL (40-60); TRIGLYCERIDES 314 MG/DL (<150); VLDL CHOLESTEROL 63 MG/DL (5-40)
[2017-06-16 06:43] LABS: CARDIAC PROFILE 2 < 0.30 NG/ML (<0.30); MYOGLOBIN SERUM 30.2 NG/ML (10.0-92.0)
[2017-06-16] MEDS ORDERED: NITROGLYCERIN 0.4 MG SL TABS BTL 25'S SL PRN ×2 (07:00→11:15)
[2017-06-16] MEDS ORDERED: INFLUENZA TRIvalent 2017-2018 0.5 ML/45 MCG SYR IM ONE (07:45)
--- NOTE | 2017-06-16 08:05 | History & Physicial ---
History of Present Illness History of Present Illness Reason for visit/HPI chest pain. Patient states he had chest pain yesterday radiating of 5/10. Pain was in central of chest going up to the neck and jaw on left side. No diaphoresis. Patient is coronary artery disease. Patient had previous MIs.. Surgeries right hand and umbilical hernia when young Date of Admission Jun 15, 2017 at 19:47 Time Seen by Provider: 08:00 I consulted on this patient on 06/16/17 08:01 Attending Physician Silver Rabago DO Admitting Physician Silver Rabago DO Consult Allergies and Home Medications Allergies Coded Allergies: penicillin G (Verified Allergy, Severe, SWELLING, 03/30/17) Home Medications Alprazolam 0.25 Mg Tablet, 0.25 MG PO BID PRN for ANXIETY, (Reported) Amlodipine Besylate 10 Mg Tablet, 10 MG PO DAILY, (Reported) Aspirin 81 Mg Tablet.dr, 81 MG PO HS, (Reported) Atorvastatin Calcium 10 Mg Tablet, 10 MG PO HS, (Reported) Bupropion HCl 150 Mg Tablet.er, 150 MG PO BID, (Reported) Buspirone HCl 15 Mg Tablet, 15 MG PO TID, (Reported) Carvedilol 3.125 Mg Tablet, 3.125 MG PO BID, (Reported) Clonidine HCl 0.1 Mg Tablet, 0.1 MG PO TID, (Reported) Clopidogrel Bisulfate 75 Mg Tablet, 75 MG PO HS, (Reported) Isosorbide Mononitrate 30 Mg Tab.er.24h, 30 MG PO DAILY, (Reported) Losartan Potassium 50 Mg Tablet, 50 MG PO BID, (Reported) LAST FILLED #90 17 Nitroglycerin 0.4 Mg Tab.subl, 0.4 MG SL UD PRN for CHEST PAIN, (Reported) PLACE 1 TAB UNDER TONGUE NEEDED FOR CHEST PAIN; IF PAIN REMAINS AFTER 5 MINUTES, CALL 911 [place]-3 Fatty Acids/Fish Oil 1 Each Capsule, 1,000 MG PO BID, (Reported) Red Yeast Rice 600 Mg Capsule, 3 CAP PO HS, (Reported) Sertraline HCl 50 Mg Tablet, 50 MG PO DAILY, (Reported) Past [facility]xs[facility]-[id number] Hx Patient Social History Employed/Student: unemployed Alcohol Use: Denies Use Number of Drinks Today: AA Alcohol Beverage of Choice: Beer Recreational Drug Use: No Smoking Status: Former Smoker Former Smoker, Quit: Nov 18, 2016 Type Used: Cigarettes 2nd Hand Smoke Exposure: Yes Physical Abuse Screen: No Sexual Abuse: No Recent Foreign Travel: No Contact w/other who traveled: No Recent Hopitalizations: Yes Recent Infectious Disease Expo: No Immunizations Up To Date Tetanus Booster (TDap): Less than 5yrs Pediatric: No Date of Influenza Vaccine: Mar 23, 2017 Seasonal Allergies Seasonal Allergies: No Surgeries Yes (hernia) Abdominal, Coronary Stent, Orthopedic Respiratory No Currently Using CPAP: No Currently Using BIPAP: No Cardiovascular Yes Coronary Artery Disease, Deep Vein Thrombosis, Heart Attack, High Cholesterol, Hypertension Neurological Yes Headaches /Migraines, TIA Reproductive System Hx Reproductive Disorders: No Sexually Transmitted Disease: No Genitourinary Yes (recurrent urinary tract infections) Prostate Problems, UTI-Chronic Gastrointestinal Yes Gastroesophageal Reflux, Hiatal Hernia, Ulcer Musculoskeletal Yes Arthritis, Rheumatoid Arthritis, Back Injury, Chronic Back Pain, Fractures Endocrine History of Endocrine Disorders: No HEENT History of HEENT Disorders: No HEENT Disorders: Eye Injury Loss of Vision: Denies Hearing Impairment: Denies Cancer No Psychosocial History of Psychiatric Problem: Yes Behavioral Health Disorders: Anxiety, Depression Integumentary History of Skin or Integumenta: No Blood Transfusions History of Blood Disorders: No Adverse Reaction to a Blood Tr: No Reviewed Nursing Assessment Reviewed/Agree w Nursing PMH: Yes Family Medical History Significant Family History: Heart Disease, Hypertension Family Hx: Arthritis 19 MOTHER MANUFACTURING TEAM MEMBER G8 SISTER FH: COPD (chronic obstructive pulmonary disease) Hypercholesterolemia 19 MOTHER Hypertension 19 MOTHER Constitutional: no symptoms reported EENTM: no symptoms reported Respiratory: no symptoms reported Cardiovascular: chest pain, other (pain went up to neck and jaw) Gastrointestinal: no symptoms reported Genitourinary: no symptoms reported Physical Exam Vital Signs Vital Sign - Last 12Hours 06/15/17 06/15/17 18:15 21:01 Temp 98.6 Pulse 57 Resp 18 B/P (MAP) 188/96 (126) Pulse Ox 96 O2 Delivery Room Air Capillary Refill : Less Than 3 Seconds General Appearance: No Apparent Distress, WD/WN Eyes: Bilateral Eye Normal Inspection HEENT: Normal ENT Inspection Neck: Full Range of Motion, Normal Inspection Respiratory: No Accessory Muscle Use, No Respiratory Distress Cardiovascular: Regular Rate, Rhythm, No Murmur Gastrointestinal: Non Tender Assessment/Plan Assessment and Plan chest pain. Angina. Coronary artery disease. Hypertension. Previous myocardial infarctions. Hyperlipidemia Problems: Clinical Quality Measures AMI/AHF: ASA po Prior to arrival: Yes (last night) DVT/VTE Risk/Contraindication: Risk Factor Score Per Nursin RFS Level Per Nursing on Admit: 4+=Very High SILVER RABAGO DO Jun 16, 2017 08:05
--- NOTE | 2017-06-16 08:29 | Consultation-Cardiology ---
HPI-Cardiology Cardiology Consultation: Date of Consultation 06/16/17 Time Seen by Provider: 08:15 Date of Admission 06-15-17 Attending Physician Silver Hernandes DO Admitting Physician Silver Hernandes DO Consulting Physician Eric Zimmerman MD HPI: Chief Complaint: Chest pain Mr. Restrepo is a 56 year old male admitted to 406 from the ED. His primary data governance consultant is Dr. Lao. Mr. Restrepo reports yesterday afternoon he was sitting on the couch at home watching television. He reports a sudden onset of left sided chest pressure which lasted for approx 5 minutes. He reports the discomfort was mod in intensity and did not radiate. He describes it as a dull ache. He reports some associated nausea. He then reports following resolution of the chest discomfort he has had a persistent heaviness in his chest which radiates into his neck and left arm. He states this discomfort has lasted since yesterday and is still present at this time. He reports it is mild in intensity, but does become more pronounced with activity. He does not report any dyspnea or palpitations. No c/o LE edema. No c/o syncope or near syncope. He reports the last coronary intervention was at in July by Dr. Simms. He states he takes ASA and Plavix at home and has not missed any doses. He reports he quit smoking cigs approx 4 months ago. No c/o vomiting or diarrhea. No c/o diaphoresis. No c/o fever or chills. Review of Systems-Cardiology Review of Systems Constitutional: No chills, No fever, lightheadedness Eyes: No blindness, No vision change Ears/Nose/Throat: No nasal drainage, No recent hearing loss Respiratory: As described under HPI Cardiovascular: As described under HPI Gastrointestinal: No constipation, No diarrhea, nausea, No vomiting Genitourinary: No dysuria, No hematuria Musculoskeletal: No muscle pain Skin: No rash, No ulcerations Psychiatric/Neurological: No focal weakness Hematologic: No bleeding abnormalities All Other Systems Reviewed Negative Unless Noted: Yes LPH-Wqmbos-Pmjzvq Hx Patient Social History Employed/Student: unemployed Alcohol Use: Denies Use Recreational Drug Use: No Smoking Status: Former Smoker Type Used: Cigarettes 2nd Hand Smoke Exposure: Yes Recent Foreign Travel: No Recent Infectious Disease Expo: No Hospitalization with Isolation: Denies Physical Abuse Screen: No Sexual Abuse: No Immunizations Up To Date Tetanus Booster (TDap): Less than 5yrs Date of Influenza Vaccine: Mar 23, 2017 Past Medical History PMH As described under Assessment. Family Medical History Family Medical History: His mother has high blood pressure. No reported h/o premature CAD. Family History: Arthritis 19 MOTHER [employer] G8 SISTER FH: COPD (chronic obstructive pulmonary disease) Hypercholesterolemia 19 MOTHER Hypertension 19 MOTHER Allergies and Home Medications Allergies Coded Allergies: penicillin G (Verified Allergy, Severe, SWELLING, 03/30/17) Home Medications Alprazolam 0.25 Mg Tablet, 0.25 MG PO BID PRN for ANXIETY, (Reported) Amlodipine Besylate 10 Mg Tablet, 10 MG PO DAILY, (Reported) Aspirin 81 Mg Tablet.dr, 81 MG PO HS, (Reported) Atorvastatin Calcium 10 Mg Tablet, 10 MG PO HS, (Reported) Bupropion HCl 150 Mg Tablet.er, 150 MG PO BID, (Reported) Buspirone HCl 15 Mg Tablet, 15 MG PO TID, (Reported) Carvedilol 3.125 Mg Tablet, 3.125 MG PO BID, (Reported) Clonidine HCl 0.1 Mg Tablet, 0.1 MG PO TID, (Reported) Clopidogrel Bisulfate 75 Mg Tablet, 75 MG PO HS, (Reported) Hydrocodone/Acetaminophen 1 Each Tablet, 1-2 TAB PO Q6H PRN for PAIN-MODERATE, ( Reported) Losartan Potassium 100 Mg Tablet, 100 MG PO HS, (Reported) Nitroglycerin 0.4 Mg Tab.subl, 0.4 MG SL UD PRN for CHEST PAIN, (Reported) PLACE 1 TAB UNDER TONGUE NEEDED FOR CHEST PAIN; IF PAIN REMAINS AFTER 5 MINUTES, CALL 911 [place]-3 Fatty Acids/Fish Oil 1 Each Capsule, 1,000 MG PO BID, (Reported) Ondansetron HCl 4 Mg Tab, 4 MG PO TID PRN for STOMACH UPSET, (Reported) Ranolazine 1,000 Mg Tab.er.12h, 1,000 MG PO BID, (Reported) Red Yeast Rice 600 Mg Capsule, 3 CAP PO HS, (Reported) Sertraline HCl 100 Mg Tablet, 100 MG PO DAILY, (Reported) Trazodone HCl 100 Mg Tablet, 100 MG PO HS, (Reported) Physical Exam-Cardiology Physical Exam Vital Signs/I&O Vital Sign - Last 12Hours 06/16/17 06/16/17 06/16/17 06/16/17 04:00 07:00 08:01 08:52 Temp 97.4 97.9 Pulse 53 54 53 Resp 18 20 B/P (MAP) 135/74 (94) 164/84 (110) Pulse Ox 96 97 O2 Delivery Room Air Room Air Room Air 06/16/17 06/16/17 11:10 13:00 Pulse 57 54 Resp 18 B/P (MAP) 173/88 (116) Pulse Ox 96 O2 Delivery Room Air Intake and Output 06/16/17 00:00 Intake Total 50 ml Output Total 0 ml Balance 50 ml Capillary Refill : Less Than 3 Seconds Constitutional: AAO x 3 HEENT: PERRL Neck: No carotid bruit, carotid pulses are 2 + bilaterally Respiratory: No accessory muscle use, No respiratory distress, lungs clear to auscultation Cardiovascular: regular rate-rhythm, No JVD, S1 and S2, systolic murmur Gastrointestinal: soft, round, audible bowel sounds Rectal: deferred Extremities: no lower extremity edema bilateral Neurologic/Psychiatric: grossly intact Skin: No rash, No ulcerations Data Review Labs Laboratory Tests 06/15/17 18:20: White Blood Count 5.0, Red Blood Count 3.96L, Hemoglobin 11.4L, Hematocrit 35L, Mean Corpuscular Volume 88, Mean Corpuscular Hemoglobin 29, Mean Corpuscular Hemoglobin Concent 33, Red Cell Distribution Width 12.3, Platelet Count 287, Mean Platelet Volume 9.6, Neutrophils (%) (Auto) 46, Lymphocytes (%) (Auto) 32, Monocytes (%) (Auto) 14H, Eosinophils (%) (Auto) 8, Basophils (%) (Auto) 1, Neutrophils # (Auto) 2.3, Lymphocytes # (Auto) 1.6, Monocytes # (Auto) 0.7, Eosinophils # (Auto) 0.4H, Basophils # (Auto) 0.0, Prothrombin Time 11.8L, INR Comment 0.9, Activated Partial Thromboplast Time 20L, D-Dimer 0.49, Sodium Level 138, Potassium Level 4.4, Chloride Level 105, Carbon Dioxide Level 23, Anion Gap 10, Blood Urea Nitrogen 18, Creatinine 1.42H, Estimat Glomerular Filtration Rate 52, BUN/Creatinine Ratio 13, Glucose Level 95, Calcium Level 8.9 , Magnesium Level 2.0, Total Bilirubin 0.2, Aspartate Amino Transf (AST/SGOT) 17 , Alanine Aminotransferase (ALT/SGPT) 21, Alkaline Phosphatase 138H, Myoglobin 40.7, Troponin I < 0.30, Total Protein 7.3, Albumin 3.9 06/16/17 05:10: White Blood Count 4.0L, Red Blood Count 4.06L, Hemoglobin 11.7L, Hematocrit 36L , Mean Corpuscular Volume 88, Mean Corpuscular Hemoglobin 29, Mean Corpuscular Hemoglobin Concent 33, Red Cell Distribution Width 12.4, Platelet Count 271, Mean Platelet Volume 9.6, Neutrophils (%) (Auto) 46, Lymphocytes (%) (Auto) 32, Monocytes (%) (Auto) 13H, Eosinophils (%) (Auto) 8, Basophils (%) (Auto) 1, Neutrophils # (Auto) 1.8, Lymphocytes # (Auto) 1.3, Monocytes # (Auto) 0.5, Eosinophils # (Auto) 0.3, Basophils # (Auto) 0.0, Sodium Level 140, Potassium Level 4.1, Chloride Level 106, Carbon Dioxide Level 20L, Anion Gap 14, Blood Urea Nitrogen 17, Creatinine 1.20, Estimat Glomerular Filtration Rate > 60, BUN/ Creatinine Ratio 14, Glucose Level 105, Calcium Level 8.4L, Total Bilirubin 0.2 , Aspartate Amino Transf (AST/SGOT) 14, Alanine Aminotransferase (ALT/SGPT) 21, Alkaline Phosphatase 143H, Myoglobin 30.2, Troponin I < 0.30, Total Protein 6.6 , Albumin 3.7, Triglycerides Level 314H, Cholesterol Level 164, LDL Cholesterol Direct 86, VLDL Cholesterol 63H, HDL Cholesterol 31L Radiology NAME: EZEQUIEL RESTREPO Rosey [facility] REC#: [id number] PT STATUS: REG ER : 1960 PHYSICIAN: BRITNEY CEE MD ADMIT DATE: 06/15/17/ER Signed Date of Exam: 06/15/17 CHEST 1 VIEW, AP/PA ONLY INDICATION: Chest pain since yesterday. EXAMINATION: Chest 06/15/2017. COMPARISON: 04/22/2017. FINDINGS: The cardiomediastinal silhouette is unremarkable. The pulmonary vasculature is within normal limits. The lungs and pleural spaces are clear. IMPRESSION: No evidence of an acute cardiopulmonary process. Dictated by: Dictated on workstation # [id number] Dict: 06/15/171901 Trans: 06/15/171924 Interpreted by: ANGE ANDRES MD Electronically signed by: ANGE ANDRES MD 06/15/171924 ECG Impression ECG Initial ECG Rhythm: Normal Sinus A/P-Cardiology Assessment/Admission Diagnosis Chest pain of undetermined etiology Coronary artery disease, cardiac catheterization carried out July 27, [address] Lao revealed total occlusion of right coronary artery, severe stenosis at the proper circumflex artery, ostial circumflex stenosis, LAD had moderate disease. IVUS showed 60 percent stenosis, underwent stenting to the right coronary artery with excellent results. Patient underwent multiple cardiac catheterizations in the month of July 2016 due to his ongoing chest pain. Most recent cardiac catheterization carried out by Dr. Ortiz on August 14, 2016 revealed widely patent stented portion of the RCA which was completely occluded before. Malposition of stents in the mid to distal RCA from positive remodeling, likely in a dissection plane site during the complex [employer]. Recommended conservative management for the area rather than blaming it, as a very likely that it may thrombosis and he'll off without affecting the stents. Distal circumflex artery with 90 percent stenosis, small vessel supplying very small amount of myocardium. Echocardiogram showed normal LV function, questionable healed vegetation on aortic valve. Functioning normally per echo of 01-31-[address] Lao Hypertension Hyperlipidemia-intolerant to higher doses of statin tolerating Lipitor 10 mg daily Headache-complains of intermittent headache over the past several months, was seen by a neurologist at , diagnosed with migraine with associated headache and TIA-like symptoms. 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
[2017-06-16] MEDS ORDERED: ASPIRIN E.C. 325 MG (ECOTRIN) TABLET PO SCH (09:00)
[2017-06-16] MEDS ORDERED: CLOPIDOGREL 75 MG (PLAVIX) TABLET PO SCH ×2 (09:00→21:00)
[2017-06-16] MEDS ORDERED: ASPIRIN E.C. 81 MG (ECOTRIN) TAB PO SCH ×2 (09:00→21:00)
[2017-06-16] MEDS ORDERED: CLOPIDOGREL 75 MG (PLAVIX) TABLET PO NR (09:00)
[2017-06-16] MEDS ORDERED: PANTOPRAZOLE 40 MG (PROTONIX) TAB PO NR (09:01)
[2017-06-16] MEDS ORDERED: SERT100T8 PO (10:11)
[2017-06-16] MEDS ORDERED: LOSA100T28 PO (10:11)
[2017-06-16] MEDS ORDERED: TRAZ100T92 PO (10:11)
[2017-06-16] MEDS ORDERED: TAMS0.4C98 PO (10:11)
[2017-06-16] MEDS ORDERED: RANO10003 PO (10:17)
[2017-06-16] MEDS ORDERED: ONDN4T PO (10:17)
[2017-06-16] MEDS ORDERED: HYDR-3820 PO (10:24)
[2017-06-16] MEDS ORDERED: ALPRAZolam 0.25 MG (XANAX) TAB PO PRN (11:15)
[2017-06-16] MEDS ORDERED: HYDROcodone/APAP 10 MG/325 MG (LORTAB) TAB PO PRN (11:15)
[2017-06-16] MEDS ORDERED: ONDANSETRON 4 MG (ZOFRAN) ORAL DISSOLVE TAB PO PRN (11:30)
[2017-06-16] MEDS: cloNIDine 0.1 MG (CATAPRES) TAB PO SCH ×2 (12:21→20:33)
[2017-06-16] MEDS: busPIRone 15 MG (BUSPAR) TABLET PO SCH ×2 (12:21→20:33)
--- NOTE | 2017-06-16 13:48 | Consultation-Cardiology ---
HPI-Cardiology Cardiology Consultation: Date of Consultation 06/16/17 Time Seen by Provider: 13:00 Date of Admission Attending Physician Silver Hernandes DO Admitting Physician Silver Hernandes DO Consulting Physician FABIOLA DOSS MD, MA, FACP, FACC, FSCAI, CCDS HPI: Chief Complaint: Chest pain Mr. Restrepo is a 56 year old male admitted to [facility] from the ED. His primary occupational therapist home based is Dr. Lao. Mr. Restrepo reports yesterday afternoon he was sitting on the couch at home watching television. He reports a sudden onset of left sided chest pressure which lasted for approx 5 minutes. He reports the discomfort was mod in intensity and did not radiate. He describes it as a dull ache. He reports some associated nausea. He then reports following resolution of the chest discomfort he has had a persistent heaviness in his chest which radiates into his neck and left arm. He states this discomfort has lasted since yesterday and is still present at this time. He reports it is mild in intensity, but does become more pronounced with activity. He does not report any dyspnea or palpitations. No c/o LE edema. No c/o syncope or near syncope. He reports the last coronary intervention was at in July by Dr. Simms. He states he takes ASA and Plavix at home and has not missed any doses. He reports he quit smoking cigs approx 4 months ago. No c/o vomiting or diarrhea. No c/o diaphoresis. No c/o fever or chills. Review of Systems-Cardiology Review of Systems Constitutional: No chills, No fever, lightheadedness Eyes: No blindness, No vision change Ears/Nose/Throat: No nasal drainage, No recent hearing loss Respiratory: As described under HPI Cardiovascular: As described under HPI Gastrointestinal: No constipation, No diarrhea, nausea, No vomiting Genitourinary: No dysuria, No hematuria Musculoskeletal: No muscle pain Skin: No rash, No ulcerations Psychiatric/Neurological: No focal weakness Hematologic: No bleeding abnormalities All Other Systems Reviewed Negative Unless Noted: Yes KPH-Axifud-Ojjmnq Hx Patient Social History Employed/Student: unemployed Alcohol Use: Denies Use Recreational Drug Use: No Smoking Status: Former Smoker Type Used: Cigarettes 2nd Hand Smoke Exposure: Yes Recent Foreign Travel: No Recent Infectious Disease Expo: No Hospitalization with Isolation: Denies Physical Abuse Screen: No Sexual Abuse: No Immunizations Up To Date Tetanus Booster (TDap): Less than 5yrs Date of Influenza Vaccine: Mar 23, 2017 Past Medical History PMH As described under Assessment. Family Medical History Family Medical History: His mother has high blood pressure. No reported h/o premature CAD. Family History: Arthritis 19 MOTHER CHRISTMAS TREE FARMER G8 SISTER FH: COPD (chronic obstructive pulmonary disease) Hypercholesterolemia 19 MOTHER Hypertension 19 MOTHER Allergies and Home Medications Allergies Coded Allergies: penicillin G (Verified Allergy, Severe, SWELLING, 03/30/17) Home Medications Alprazolam 0.25 Mg Tablet, 0.25 MG PO BID PRN for ANXIETY, (Reported) Amlodipine Besylate 10 Mg Tablet, 10 MG PO DAILY, (Reported) Aspirin 81 Mg Tablet.dr, 81 MG PO HS, (Reported) Atorvastatin Calcium 10 Mg Tablet, 10 MG PO HS, (Reported) Bupropion HCl 150 Mg Tablet.er, 150 MG PO BID, (Reported) Buspirone HCl 15 Mg Tablet, 15 MG PO TID, (Reported) Carvedilol 3.125 Mg Tablet, 3.125 MG PO BID, (Reported) Clonidine HCl 0.1 Mg Tablet, 0.1 MG PO TID, (Reported) Clopidogrel Bisulfate 75 Mg Tablet, 75 MG PO HS, (Reported) Hydrocodone/Acetaminophen 1 Each Tablet, 1-2 TAB PO Q6H PRN for PAIN-MODERATE, ( Reported) Losartan Potassium 100 Mg Tablet, 100 MG PO HS, (Reported) Nitroglycerin 0.4 Mg Tab.subl, 0.4 MG SL UD PRN for CHEST PAIN, (Reported) PLACE 1 TAB UNDER TONGUE NEEDED FOR CHEST PAIN; IF PAIN REMAINS AFTER 5 MINUTES, CALL 911 [place]-3 Fatty Acids/Fish Oil 1 Each Capsule, 1,000 MG PO BID, (Reported) Ondansetron HCl 4 Mg Tab, 4 MG PO TID PRN for STOMACH UPSET, (Reported) Ranolazine 1,000 Mg Tab.er.12h, 1,000 MG PO BID, (Reported) Red Yeast Rice 600 Mg Capsule, 3 CAP PO HS, (Reported) Sertraline HCl 100 Mg Tablet, 100 MG PO DAILY, (Reported) Trazodone HCl 100 Mg Tablet, 100 MG PO HS, (Reported) Physical Exam-Cardiology Physical Exam Vital Signs/I&O Vital Sign - Last 12Hours 12/06/16/17 06/16/17 06/16/17 04:00 07:00 08:01 08:52 Temp 97.4 97.9 Pulse 53 54 53 Resp 18 20 B/P (MAP) 135/74 (94) 164/84 (110) Pulse Ox 96 97 O2 Delivery Room Air Room Air Room Air 06/16/17 06/16/17 11:10 13:00 Pulse 57 54 Resp 18 B/P (MAP) 173/88 (116) Pulse Ox 96 O2 Delivery Room Air Intake and Output 06/16/17 00:00 Intake Total 50 ml Output Total 0 ml Balance 50 ml Capillary Refill : Less Than 3 Seconds Constitutional: AAO x 3 HEENT: PERRL Neck: No carotid bruit, carotid pulses are 2 + bilaterally Respiratory: No accessory muscle use, No respiratory distress, lungs clear to auscultation Cardiovascular: regular rate-rhythm, No JVD, S1 and S2, systolic murmur Gastrointestinal: soft, round, audible bowel sounds Rectal: deferred Extremities: no lower extremity edema bilateral Neurologic/Psychiatric: grossly intact Skin: No rash, No ulcerations Data Review Labs Laboratory Tests 06/15/17 18:20: White Blood Count 5.0, Red Blood Count 3.96L, Hemoglobin 11.4L, Hematocrit 35L, Mean Corpuscular Volume 88, Mean Corpuscular Hemoglobin 29, Mean Corpuscular Hemoglobin Concent 33, Red Cell Distribution Width 12.3, Platelet Count 287, Mean Platelet Volume 9.6, Neutrophils (%) (Auto) 46, Lymphocytes (%) (Auto) 32, Monocytes (%) (Auto) 14H, Eosinophils (%) (Auto) 8, Basophils (%) (Auto) 1, Neutrophils # (Auto) 2.3, Lymphocytes # (Auto) 1.6, Monocytes # (Auto) 0.7, Eosinophils # (Auto) 0.4H, Basophils # (Auto) 0.0, Prothrombin Time 11.8L, INR Comment 0.9, Activated Partial Thromboplast Time 20L, D-Dimer 0.49, Sodium Level 138, Potassium Level 4.4, Chloride Level 105, Carbon Dioxide Level 23, Anion Gap 10, Blood Urea Nitrogen 18, Creatinine 1.42H, Estimat Glomerular Filtration Rate 52, BUN/Creatinine Ratio 13, Glucose Level 95, Calcium Level 8.9 , Magnesium Level 2.0, Total Bilirubin 0.2, Aspartate Amino Transf (AST/SGOT) 17 , Alanine Aminotransferase (ALT/SGPT) 21, Alkaline Phosphatase 138H, Myoglobin 40.7, Troponin I < 0.30, Total Protein 7.3, Albumin 3.9 06/16/17 05:10: White Blood Count 4.0L, Red Blood Count 4.06L, Hemoglobin 11.7L, Hematocrit 36L , Mean Corpuscular Volume 88, Mean Corpuscular Hemoglobin 29, Mean Corpuscular Hemoglobin Concent 33, Red Cell Distribution Width 12.4, Platelet Count 271, Mean Platelet Volume 9.6, Neutrophils (%) (Auto) 46, Lymphocytes (%) (Auto) 32, Monocytes (%) (Auto) 13H, Eosinophils (%) (Auto) 8, Basophils (%) (Auto) 1, Neutrophils # (Auto) 1.8, Lymphocytes # (Auto) 1.3, Monocytes # (Auto) 0.5, Eosinophils # (Auto) 0.3, Basophils # (Auto) 0.0, Sodium Level 140, Potassium Level 4.1, Chloride Level 106, Carbon Dioxide Level 20L, Anion Gap 14, Blood Urea Nitrogen 17, Creatinine 1.20, Estimat Glomerular Filtration Rate > 60, BUN/ Creatinine Ratio 14, Glucose Level 105, Calcium Level 8.4L, Total Bilirubin 0.2 , Aspartate Amino Transf (AST/SGOT) 14, Alanine Aminotransferase (ALT/SGPT) 21, Alkaline Phosphatase 143H, Myoglobin 30.2, Troponin I < 0.30, Total Protein 6.6 , Albumin 3.7, Triglycerides Level 314H, Cholesterol Level 164, LDL Cholesterol Direct 86, VLDL Cholesterol 63H, HDL Cholesterol 31L A/P-Cardiology Assessment/Admission Diagnosis Chest pain of undetermined etiology. No evidence of ACS Coronary artery disease, cardiac catheterization carried out July 27, [address] Lao revealed total occlusion of right coronary artery, severe stenosis at the proper circumflex artery, ostial circumflex stenosis, LAD had moderate disease. IVUS showed 60 percent stenosis, underwent stenting to the right coronary artery with excellent results. Patient underwent multiple cardiac catheterizations in the month of July 2016 due to his ongoing chest pain. Most recent cardiac catheterization carried out by Dr. Ortiz on August 14, 2016 revealed widely patent stented portion of the RCA which was completely occluded before. 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 Recommended conservative management for this. Distal circumflex artery with 90 percent stenosis, small vessel supplying very small amount of myocardium. Echocardiogram showed normal LV function, questionable healed vegetation on aortic valve. Functioning normally per echo of 8-[address] Lao Hypertension Hyperlipidemia-intolerant to higher doses of statin tolerating Lipitor 10 mg daily Headache-complains of intermittent headache over the past several months, was seen by a neurologist at , diagnosed with migraine with associated headache and TIA-like symptoms. 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 The last one ([facility]) in late Jul 2016 reported stable card status, but did have lesions that could sometimes result in angina (see report summary above) for which conservative therapy was recommended. Currently there is no evidence of any ACS. Conservative therapy appears reasonable * I had a detailed discussion with him regarding his CV issues and our treatment strategy. He, too, favors conservative therapy * We have advised complete avoidance of tobacco or meth use * Increase ambulation * We also discussed the importance of medication compliance Clinical Quality Measures AMI/AHF: ASA po Prior to arrival: Yes (last night) DVT/VTE Risk/Contraindication: Risk Factor Score Per Nursin RFS Level Per Nursing on Admit: 4+=Very High FABIOLA DOSS MD FACP FAC CCDS Jun 16, 2017 13:48
[2017-06-16] MEDS: CATHETER FLUSH 10 ML SYR IV SCH ×2 (14:14→20:34)
[2017-06-16] MEDS: NS IV 1000 ML 1,000 ML IV SCH (14:48)
[2017-06-16] MEDS: morphine INJ 4 MG/ML 1 ML (VIAL/SYRINGE) IV PRN ×2 (14:59→22:04)
[2017-06-16] MEDS: buPROPion SR 150 MG (WELLBUTRIN SR) TAB PO SCH (20:33)
[2017-06-16] MEDS: RANOLAZINE ER 500 MG TAB (RANEXA) PO SCH (20:33)
[2017-06-16] MEDS: OMEGA 3 (FISH OIL) 1000 MG CAP PO SCH (20:33)
[2017-06-16] MEDS: CARVEDILOL 6.25 MG (COREG) TAB PO SCH (20:33)
[2017-06-16] MEDS ORDERED: RED YEAST RICE PO SCH (21:00)
[2017-06-16] MEDS ORDERED: ATORVASTATIN 10 MG (LIPITOR) TABLET PO SCH (21:00)
[2017-06-16] MEDS ORDERED: LOSARTAN 100 MG (COZAAR) TABLET PO SCH (21:00)
[2017-06-16] MEDS ORDERED: traZODone 100 MG (DESYREL) TAB PO SCH (21:00)
[2017-06-16] MEDS ORDERED: CARVEDILOL 3.125 MG (COREG) TABLET PO SCH (21:00)
[2017-06-17] VITALS: BP 124/64
[2017-06-17 04:00] VITALS: BP 149/80
[2017-06-17] MEDS: CATHETER FLUSH 10 ML SYR IV SCH ×2 (06:08→13:20)
[2017-06-17] MEDS ORDERED: PANTOPRAZOLE 40 MG (PROTONIX) TAB PO SCH (07:00)
[2017-06-17 08:15] VITALS: BP 163/84
[2017-06-17] MEDS: RANOLAZINE ER 500 MG TAB (RANEXA) PO SCH (08:49)
[2017-06-17] MEDS: buPROPion SR 150 MG (WELLBUTRIN SR) TAB PO SCH (08:49)
[2017-06-17] MEDS: CARVEDILOL 6.25 MG (COREG) TAB PO SCH (08:49)
[2017-06-17] MEDS: cloNIDine 0.1 MG (CATAPRES) TAB PO SCH ×2 (08:49→13:20)
[2017-06-17] MEDS: OMEGA 3 (FISH OIL) 1000 MG CAP PO SCH (08:49)
[2017-06-17] MEDS: busPIRone 15 MG (BUSPAR) TABLET PO SCH ×2 (08:49→13:20)
[2017-06-17] MEDS ORDERED: amLODIPine 10 MG (NORVASC) TAB PO SCH (09:00)
[2017-06-17] MEDS ORDERED: SERTRALINE 100 MG (ZOLOFT) TAB PO SCH (09:00)
--- NOTE | 2017-06-17 10:57 | Progress Note-Cardiology ---
Cardiology SOAP Progress Note Subjective: He reports chest discomfort which is chronic, is at his usual baseline. No c/o CP, palpitations, syncope or near syncope. Objective: I&O/Vital Signs Vital Sign - Last 12Hours 06/17/17 06/17/17 06/17/17 06/17/17 04:00 07:00 08:15 09:00 Temp 97.3 98.3 Pulse 57 53 57 Resp 12 18 B/P (MAP) 149/80 (103) 163/84 (110) Pulse Ox 97 99 O2 Delivery Room Air Room Air 06/17/17 12:53 Temp 98.2 Pulse 56 Resp 20 B/P (MAP) 135/79 (97) Pulse Ox 98 O2 Delivery Room Air Intake and Output 06/17/17 00:00 Intake Total 1530 ml Balance 1530 ml Weight (Pounds): 180 Weight (Ounces): 8.0 Weight (Calculated Kilograms): [id number] Constitutional: AAO x 3 Respiratory: No accessory muscle use, No respiratory distress, lungs clear to auscultation Cardiovascular: regular rate-rhythm, No JVD, S1 and S2, systolic murmur Gastrointestional: soft, round, audible bowel sounds Extremities: no lower extremity edema bilateral Neurologic/Psychiatric: grossly intact Skin: No rash, No ulcerations Results/Procedures: Labs A/P: Assessment: Chest pain with no evidence of ACS H/O chronic chest pain Coronary artery disease, cardiac catheterization carried out July 27, [address] Lao revealed total occlusion of right coronary artery, severe stenosis at the proper circumflex artery, ostial circumflex stenosis, LAD had moderate disease. IVUS showed 60 percent stenosis, underwent stenting to the right coronary artery with excellent results. Patient underwent multiple cardiac catheterizations in the month of July 2016 due to his ongoing chest pain. Most recent cardiac catheterization carried out by Dr. Ortiz on August 14, 2016 revealed widely patent stented portion of the RCA which was completely occluded before. 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 Recommended conservative management for this. Distal circumflex artery with 90 percent stenosis, small vessel supplying very small amount of myocardium. Echocardiogram showed normal LV function, questionable healed vegetation on aortic valve. Functioning normally per echo of 01-31-[address] Lao Hypertension Hyperlipidemia-intolerant to higher doses of statin tolerating Lipitor 10 mg daily Headache-complains of intermittent headache over the past several months, was seen by a neurologist at , diagnosed with migraine with associated headache and TIA-like symptoms. Patient is reported to have complex migraine/hemiplegic migraine History of elevated LFTs GERD with history of gastritis-maintained on Protonix H/O tobaccoism- reports quit 4 months ago History of methamphetamine use History of hiatal hernia Depression Plan: * Complex management due complex CV disease and multiple comorbidities * He has had four cardiac caths in the last year. The last one ([facility]) in late Jul 2016 reported stable card status, but did have lesions that could sometimes result in angina (see report summary above) for which conservative therapy was recommended. Currently there is no evidence of any ACS. Conservative therapy appears reasonable * Dr. Zimmerman has had a detailed discussion with him regarding his CV issues and our treatment strategy. He, too, favors conservative therapy * We have advised complete avoidance of tobacco or meth use * Increase ambulation * We also discussed the importance of medication compliance * OK to discharge home from cardiac stand point with out pt f/u with Dr. Lao next week Physician Assessment Physician Assessment Currently feels at his usual baseline. Wishes to go home Lungs: good bilat air entry Cor: reg Ext: no c/c/e A&R * As documented in our note above that I updated (italics) and as noted below * He has tolerated the increase in carvedilol well. Continue * We have reviewed his CV issues and risk factor mod and cp management * Have advised return to ER for new symptoms or exacerbation of symptoms * Have advised f/u with Dr Lao next week Clinical Quality Measures AMI/AHF: ASA po Prior to arrival: Yes (last night) ELZA MONET BURNER MACHINE OPERATOR Jun 17, 2017 10:57 FABIOLA ZIMMERMAN MD FACP [facility] Jun 17, 2017 13:54
[2017-06-17] MEDS ORDERED: CARV6.252 PO (10:59)
[2017-06-17 12:53] VITALS: BP 135/79
[2017-06-17] MEDS: NS IV 1000 ML 1,000 ML IV SCH (13:07)
--- NOTE | 2017-06-17 14:12 | Discharge Inst-Simple/Standard ---
Discharge Inst-Standard Discharge Medications New, Converted or Re-Newed RX: Other Patient Instructions/Follow Up Plan of Care/Instructions/FU: advance diet as tolerated walk for exercise keep follow up appointments Activity as Tolerated: Yes Discharge Diet: Cardiac Diet Return to The Hospital For: worsening chest pain Planned Outpatient Orders/Ref. Pneu Vac Indicated: Yes ELIE PICKETT MD Jun 17, 2017 2:12 pm
--- NOTE | 2017-06-17 14:13 | Discharge Summary ---
Diagnosis/Chief Complaint Date of Admission Jun 15, 2017 at 20:40 Date of Discharge Admission Diagnosis Admission Diagnosis chest pain. Angina. Coronary artery disease. Hypertension. Previous myocardial infarctions. Hyperlipidemia Discharge Summary Hospital Course Labs Laboratory Tests 06/15/17 18:20: Red Blood Count 3.96L, Hemoglobin 11.4L, Hematocrit 35L, Monocytes (%) (Auto) 14H, Eosinophils # (Auto) 0.4H, Prothrombin Time 11.8L, Activated Partial Thromboplast Time 20L, Creatinine 1.42H, Alkaline Phosphatase 138H 06/16/17 05:10: Red Blood Count 4.06L, Hemoglobin 11.7L, Hematocrit 36L, Monocytes (%) (Auto) 13H, Alkaline Phosphatase 143H, White Blood Count 4.0L, Carbon Dioxide Level 20L , Calcium Level 8.4L, Triglycerides Level 314H, VLDL Cholesterol 63H, HDL Cholesterol 31L Procedures None. Discharge Physical Examination Allergies: Coded Allergies: penicillin G (Verified Allergy, Severe, SWELLING, 03/30/17) Vitals & I&Os Vital Signs Date Time Temp Pulse Resp B/P (MAP) Pulse Ox O2 Delivery O2 Flow Rate FiO2 06/17/17 13:00 58 06/17/17 12:53 98.2 20 135/79 (97) 98 Room Air Discharge Home Medications Reviewed and agree with Discharge Medication list on patient's Discharge Instruction sheet Instructions to Patient/Family Please see electronic discharge instructions given to patient. Clinical Quality Measures AMI/AHF: ASA po Prior to arrival: Yes (last night) DVT/VTE Risk/Contraindication: Risk Factor Score Per Nursin RFS Level Per Nursing on Admit: 4+=Very High ELIE PICKETT MD Jun 17, 2017 14:13
[2017-06-17 15:37] VITALS: BP 146/81
[2017-06-17] MEDS ORDERED: CLOPIDOGREL 75 MG (PLAVIX) TABLET PO SCH (21:00)
[2017-06-17] MEDS ORDERED: ASPIRIN E.C. 81 MG (ECOTRIN) TAB PO SCH (21:00)
== END 2017-06-17 14:13 | disposition home or self-care (01) ==
LOC: EDUNIT# 18:13 → ER 18:14 → 4TH 19:47 → UNDOADMOB 19:47 → 4TH 20:40
PROVIDERS: ADMIT Family Medicine; ATTEND Family Medicine
DX: I25.119 Atherosclerotic heart disease of native coronary artery with unspecified angina pectoris (principal); I10 Essential (primary) hypertension; E78.5 Hyperlipidemia, unspecified; I25.2 Old myocardial infarction; G43.909 Migraine, unspecified, not intractable, without status migrainosus; K21.9 Gastro-esophageal reflux disease without esophagitis; K44.9 Diaphragmatic hernia without obstruction or gangrene; M06.9 Rheumatoid arthritis, unspecified; M19.91 Primary osteoarthritis, unspecified site; F41.9 Anxiety disorder, unspecified; F32.9 Major depressive disorder, single episode, unspecified; Z79.02 Long term (current) use of antithrombotics/antiplatelets; Z79.82 Long term (current) use of aspirin; Z79.899 Other long term (current) drug therapy; Z87.891 Personal history of nicotine dependence; Z86.718 Personal history of other venous thrombosis and embolism; Z95.5 Presence of coronary angioplasty implant and graft
CPT/HCPCS: 36415; 71010; 80053; 80061; 83735; 83874; 84484; 85025; 85379; 85610; 85730; 93005; 93041; 96374; G0378

== ENCOUNTER 2017-06-30 10:50 | Emergency (ER) | payer SELFPAY ==
[~2017-06-30] VITALS: Ht 175.3 cm; Wt 82.6 kg
[~2017-06-30 10:50] MED LIST changes: +CARV6.252 PO; +LOSA100T28 PO; +ONDN4T PO; +SERT100T8 PO
[2017-06-30] MEDS ORDERED: ASPIRIN 81 MG CHEW (CHILDREN'S ASA) ONE (11:23)
[2017-06-30] MEDS ORDERED: KETOROLAC 30 MG/ML VIAL IVP STA (11:27)
[2017-06-30 11:39] LABS: BASOPHILS % (AUTO) 0 % (0-10); EOSINOPHILS # (AUTO) 0.3 10^3/uL (0.0-0.3); EOSINOPHILS % (AUTO) 3 % (0-10); HEMATOCRIT 33 % (40-54); HEMOGLOBIN 10.4 G/DL (13.3-17.7); LYMPHOCYTES # (AUTO) 0.9 X 10^3 (1.0-4.0); LYMPHOCYTES % (AUTO) 12 % (12-44); MEAN CORPUSCULAR HEMOGLOBIN 28 PG (25-34); MEAN CORPUSCULAR HGB CONC 32 G/DL (32-36); MEAN CORPUSCULAR VOLUME 88 FL (80-99); MEAN PLATELET VOLUME 9.7 FL (7.4-10.4); MONOCYTES # (AUTO) 0.6 X 10^3 (0.0-1.0); MONOCYTES % (AUTO) 7 % (0-12); NEUTROPHILS % (AUTO) 77 % (42-75); PLATELET COUNT 293 10^3/uL (130-400); RED BLOOD COUNT 3.71 10^6/uL (4.35-5.85); RED CELL DISTRIBUTION WIDTH 12.8 % (10.0-14.5); WHITE BLOOD COUNT 7.8 10^3/uL (4.3-11.0)
[2017-06-30] MEDS ORDERED: NS IV 1000 ML 1,000 ML IV STA (11:51)
--- NOTE | 2017-06-30 11:51 | ED Chest Pain ---
General Chief Complaint: Chest Pain Stated Complaint: CP Nursing Triage Note: PATIENT HAS A HISTORY OF CAD AND STENTS IN THE PAST. HE RECENTLY HAD AN APPT WITH DR. ELIAS AND IS SCHEDULED FOR A HEART CATH ON TUESDAY. HE IS HERE TODAY FOR CONTINUED CHEST PAINS. HIS PAIN TODAY STARTED AT 0730. HE DID NOT TAKE NITRO BECAUSE HE ALSO HAS A MIGRAINE AND STATES HE DOES NOT WANT TO MAKE IT WORSE WITH THE NITRO. Nursing Sepsis Screen: No Definite Risk Source: patient, family Exam Limitations: no limitations History of Present Illness Time seen by provider: 11:15 Initial Comments Here with complaint of chest pain that started about 730 but also has migraine headache. This has affected him as it does typically with some right-sided weakness. This started at the same time. Denies nausea, vomiting, diarrhea or sweating. Migrainous typical. Patient did not take nitroglycerin as this typically markedly aggravates his migraine makes his symptoms worse. Timing/Duration: 4-6 hours Severity/Quality: moderate Location: central Radiation: no radiation Activities at Onset: none Prior CP/Workup: cardiac cath, echocardiography, stress test Modifying Factors: improves with rest ASA po SALES ANALYST: No NTG SL SALES ANALYST: No Associated Symptoms: No abdominal pain, No dizziness, No nausea/vomiting, No shortness of breath, weakness Allergies and Home Medications Allergies Coded Allergies: penicillin G (Verified Allergy, Severe, SWELLING, 03/30/17) Home Medications Alprazolam 0.25 Mg Tablet, 0.25 MG PO BID PRN for ANXIETY, (Reported) Amlodipine Besylate 10 Mg Tablet, 10 MG PO DAILY, (Reported) Aspirin 81 Mg Tablet.dr, 81 MG PO HS, (Reported) Atorvastatin Calcium 10 Mg Tablet, 10 MG PO HS, (Reported) Bupropion HCl 150 Mg Tablet.er, 150 MG PO BID, (Reported) Buspirone HCl 15 Mg Tablet, 15 MG PO TID, (Reported) Carvedilol 6.25 Mg Tablet, 6.25 MG PO BID, #60 Ref 1 Prescribed by: ELZA MONET on 06/17/17 5529 Clonidine HCl 0.1 Mg Tablet, 0.1 MG PO TID, (Reported) Clopidogrel Bisulfate 75 Mg Tablet, 75 MG PO HS, (Reported) Hydrocodone/Acetaminophen 1 Each Tablet, 1-2 TAB PO Q6H PRN for PAIN-MODERATE, ( Reported) Losartan Potassium 100 Mg Tablet, 100 MG PO HS, (Reported) Nitroglycerin 0.4 Mg Tab.subl, 0.4 MG SL UD PRN for CHEST PAIN, (Reported) PLACE 1 TAB UNDER TONGUE NEEDED FOR CHEST PAIN; IF PAIN REMAINS AFTER 5 MINUTES, CALL 911 [place]-3 Fatty Acids/Fish Oil 1 Each Capsule, 1,000 MG PO BID, (Reported) Ondansetron HCl 4 Mg Tab, 4 MG PO TID PRN for STOMACH UPSET, (Reported) Ranolazine 1,000 Mg Tab.er.12h, 1,000 MG PO BID, (Reported) Red Yeast Rice 600 Mg Capsule, 3 CAP PO HS, (Reported) Sertraline HCl 100 Mg Tablet, 100 MG PO DAILY, (Reported) Trazodone HCl 100 Mg Tablet, 100 MG PO HS, (Reported) Review of Systems Constitutional: see HPI, No chills, No fever EENTM: No Symptoms Reported Respiratory: No Symptoms Reported Cardiovascular: See HPI, Chest Pain, Denies Edema, Denies Syncope Gastrointestinal: Denies Abdominal Pain, Denies Diarrhea, Denies Nausea, Denies Vomiting Genitourinary: No Symptoms Reported Musculoskeletal: no symptoms reported Skin: no symptoms reported Psychiatric/Neurological: No Symptoms Reported All Other Systems Reviewed Negative Unless Noted: Yes Past Mlxxedj-Hrkezc-Cqkuzz Hx Patient Social History Alcohol Use: Denies Use Number of Drinks Today: AA Alcohol Beverage of Choice: Beer Recreational Drug Use: No Type Used: Cigarettes Former Smoker, Quit: Nov 18, 2016 2nd Hand Smoke Exposure: Yes Recent Foreign Travel: No Contact w/Someone Who Travel: No Recent Infectious Disease Expo: No Recent Hopitalizations: Yes Immunizations Up To Date Tetanus Booster (TDap): Less than 5yrs PED Vaccines UTD: No Date of Influenza Vaccine: Mar 23, 2017 Seasonal Allergies Seasonal Allergies: No Surgeries History of Surgeries: Yes (hernia) Surgeries: Abdominal, Coronary Stent, Orthopedic Respiratory History of Respiratory Disorde: No Currently Using CPAP: No Currently Using BIPAP: No Cardiovascular History of Cardiac Disorders: Yes Cardiac Disorders: Coronary Artery Disease, Deep Vein Thrombosis, Heart Attack , High Cholesterol, Hypertension Neurological History of Neurological Disord: Yes Neurological Disorders: Headaches /Migraines, TIA Reproductive System Hx Reproductive Disorders: No Sexually Transmitted Disease: No Genitourinary History of Genitourinary Disor: Yes (recurrent urinary tract infections) Genitourinary Disorders: Prostate Problems, UTI-Chronic Gastrointestinal History of Gastrointestinal Di: Yes Gastrointestinal Disorders: Gastroesophageal Reflux, Hiatal Hernia, Ulcer Musculoskeletal History of Musculoskeletal Dis: Yes Musculoskeletal Disorders: Arthritis, Rheumatoid Arthritis, Back Injury, Chronic Back Pain, Fractures Endocrine History of Endocrine Disorders: No HEENT History of HEENT Disorders: No HEENT Disorders: Eye Injury Loss of Vision: Denies Hearing Impairment: Denies Cancer History of Cancer: No Psychosocial History of Psychiatric Problem: Yes Behavioral Health Disorders: Anxiety, Depression Integumentary History of Skin or Integumenta: No Blood Transfusions History of Blood Disorders: No Adverse Reaction to a Blood Tr: No Reviewed Nursing Assessment Reviewed/Agree w Nursing PMH: Yes Family Medical History Significant Family History: Heart Disease, Hypertension Family Medial History: Arthritis 19 MOTHER CONVERTER SKIMMER G8 SISTER FH: COPD (chronic obstructive pulmonary disease) Hypercholesterolemia 19 MOTHER Hypertension 19 MOTHER Physical Exam Vital Signs Vital Sign - Last 12Hours 06/30/17 06/30/17 10:52 10:57 Temp 98.8 Pulse 63 Resp 14 B/P (MAP) 162/88 (112) Pulse Ox 95 O2 Delivery Room Air O2 Flow Rate 2.00 Capillary Refill : Less Than 3 Seconds General Appearance: No Apparent Distress, WD/WN HEENT: PERRL/EOMI, Pharynx Normal Neck: Non Tender, Supple Respiratory: Lungs Clear, Normal Breath Sounds Cardiovascular: Regular Rate, Rhythm, No Murmur Gastrointestinal: Non Tender, Soft Extremity: Normal Range of Motion, Non Tender Neurologic/Psychiatric: Alert, Oriented x3, Other (question of right sided facial droop which she typically gets with his migraines.) Skin: Normal Color, Warm/Dry Progress/Results/Core Measures Results/Orders Lab Results Laboratory Tests Test 06/30/17 11:23 06/30/17 14:55 Range/Units White Blood Count 7.8 4.3-11.0 10^3/uL Red Blood Count 3.71 L 4.35-5.85 10^6/uL Hemoglobin 10.4 L 13.3-17.7 G/DL Hematocrit 33 L 40-54 % Mean Corpuscular Volume 88 80-99 FL Mean Corpuscular Hemoglobin 28 25-34 PG Mean Corpuscular Hemoglobin Concent 32 32-36 G/DL Red Cell Distribution Width 12.8 10.0-14.5 % Platelet Count 293 130-400 10^3/uL Mean Platelet Volume 9.7 7.4-10.4 FL Neutrophils (%) (Auto) 77 H 42-75 % Lymphocytes (%) (Auto) 12 12-44 % Monocytes (%) (Auto) 7 0-12 % Eosinophils (%) (Auto) 3 0-10 % Basophils (%) (Auto) 0 0-10 % Neutrophils # (Auto) 6.0 1.8-7.8 X 10^3 Lymphocytes # (Auto) 0.9 L 1.0-4.0 X 10^3 Monocytes # (Auto) 0.6 0.0-1.0 X 10^3 Eosinophils # (Auto) 0.3 0.0-0.3 10^3/uL Basophils # (Auto) 0.0 0.0-0.1 10^3/uL Prothrombin Time 12.7 12.2-14.7 SEC INR Comment 0.9 0.8-1.4 Activated Partial Thromboplast Time 26 24-35 SEC Sodium Level 140 135-145 MMOL/L Potassium Level 4.5 3.6-5.0 MMOL/L Chloride Level 105 98-107 MMOL/L Carbon Dioxide Level 25 21-32 MMOL/L Anion Gap 10 5-14 MMOL/L Blood Urea Nitrogen 22 H 7-18 MG/DL Creatinine 1.37 H 0.60-1.30 MG/DL Estimat Glomerular Filtration Rate 54 BUN/Creatinine Ratio 16 Glucose Level 115 H 70-105 MG/DL Calcium Level 9.1 8.5-10.1 MG/DL Magnesium Level 2.0 1.8-2.4 MG/DL Total Bilirubin 0.2 0.1-1.0 MG/DL Aspartate Amino Transf (AST/SGOT) 16 5-34 U/L Alanine Aminotransferase (ALT/SGPT) 23 0-55 U/L Alkaline Phosphatase 143 H 40-136 U/L Myoglobin 41.1 10.0-92.0 NG/ML Troponin I < 0.30 < 0.30 <0.30 NG/ML Total Protein 7.3 6.4-8.2 GM/DL Albumin 3.9 3.2-4.5 GM/DL My Orders Orders - BRITNEY CEE MD Cbc With Automated Diff (06/30/17 10:56) Magnesium (06/30/17 10:56) Chest 1 View, Ap/Pa Only (06/30/17 10:56) Ekg Tracing (06/30/17 10:56) Cardiac Profile 1 (06/30/17 10:56) Comprehensive Metabolic Panel (06/30/17 10:56) Myoglobin Serum (06/30/17 10:56) Protime With Inr (06/30/17 10:56) Partial Thromboplastin Time (06/30/17 10:56) O2 (06/30/17 10:56) Monitor-Rhythm Ecg Trace Only (06/30/17 10:56) Lipid Panel (07/01/17 06:00) Saline Lock/Iv-Start (06/30/17 10:56) Aspirin Chewable Tablet (Baby Aspirin Ch (06/30/17 11:23) Ketorolac Injection (Toradol Injection) (06/30/17 11:27) Ns Iv 1000 Ml (Sodium Chloride 0.9%) (06/30/17 11:51) Diphenhydramine Injection (Benadryl Inje (06/30/17 12:00) Prochlorperazine Injection (Compazine In (06/30/17 12:00) Magnesium 1 Gm/100 Ml Ivpb (Magnesium Tejeda (06/30/17 12:00) Troponin I (06/30/17 14:41) Ekg Tracing (06/30/17 14:41) Medications Given in ED Current Medications Medications Dose Ordered Sig/Mckenzie Route Start Time Stop Time Status Last Admin Dose Admin Aspirin 81 mg STK-MED ONCE .ROUTE 06/30/17 11:23 06/30/17 11:26 DC 06/30/17 11:25 81 MG Diphenhydramine HCl 25 mg ONCE ONCE IVP 06/30/17 12:00 06/30/17 12:01 DC 06/30/17 11:58 25 MG Prochlorperazine Edisylate 10 mg ONCE ONCE IV 06/30/17 12:00 06/30/17 12:01 DC 06/30/17 11:59 10 MG Vital Signs/I&O Vital Sign - Last 12Hours 06/30/17 06/30/17 10:52 10:57 Temp 98.8 Pulse 63 Resp 14 B/P (MAP) 162/88 (112) Pulse Ox 95 98 O2 Delivery Room Air Nasal Cannula O2 Flow Rate 2.00 Blood Pressure Mean: 112 Progress Note : Progress Note Seen and evaluated. IV, labs, EKG and chest x-ray ordered. ASA 324 mg by mouth ordered. Patient is a difficult IV stick. 1145: EJ to the left placed by me 20-gauge. Toradol 30 mg IV, Compazine 10 mg IV, Benadryl 25 mg IV, 2 g of magnesium IV and 1 L normal saline IV Which is his typical cocktail related to that his migraine headache. Monitor patient. 1440: Headache is gone chest pain has resolved. We will recheck troponin and EKG. Monitor patient. 1535: Troponin and EKG are negative. Discharged home with return precautions. Patient verbalize understanding instructions and agreement with plan. Remains pain free without symptoms of weakness or other concerns related to his migraines. ECG Initial ECG Impression Date: Jun 30, 2017 Initial ECG Impression Time: 10:53 Initial ECG Rate: 60 Initial ECG Rhythm: Normal Sinus Initial ECG Impression: Normal Comment Sinus rhythm with normal axis.No evidence of ST elevation MA. Unchanged from previous. Portable. Interpreted by me. EKG : EKG Time: 14:42 Rate: 55 Rhythm: Normal Sinus ECG Impression: Normal Comment Sinus rhythm with normal axis. No evidence of ST elevation MA. Similar to previous done earlier today. Interpreted by me. Diagnostic Imaging Diagonstic Imaging: Xray Plain Films/CT/US/NM/MRI: [facility] [place], [place] NAME: EZEQUIEL VITALE Rosey [facility] REC#: [id number] PT STATUS: REG ER : 1960 PHYSICIAN: BRITNEY CEE MD ADMIT DATE: 06/30/17/ER Draft Date of Exam:06/30/17 CHEST 1 VIEW, AP/PA ONLY Portable erect AP chest at 11:54 a.m. INDICATION: Chest pain. FINDINGS: The heart size is within normal limits and stable when compared to 06/15/17. The lungs are clear. There is no evidence for failure, pneumonia or for pleural effusion to suggest an acute abnormality. The mediastinum is not widened. The osseous structures are intact. IMPRESSION: There is no evidence for active disease. When compared to the prior exam, there has been no significant change. Dictated on workstation # [id number] Dict: 06/30/17 1201 Trans: 06/30/[address] [facility] [id number] Interpreted by: MARILU ART MD Electronically signed by: Departure Impression Impression: Primary Impression: Chest pain Qualified Codes: R07.9 - Chest pain, unspecified Additional Impression: Migraine Qualified Codes: G43.909 - Migraine, unspecified, not intractable, without status migrainosus Disposition: HOME, SELF-CARE Condition: Improved Departure-Patient Inst. Decision time for Depature: 15:24 Referrals: ANDRES RABAGO DO (PCP/Family) Primary Care Physician Patient Instructions: Chest Pain (DC), Migraine Headache (DC) Add. Discharge Instructions: All discharge instructions reviewed with patient and/or family. Voiced understanding. Your treatment cocktail is Toradol 30 mg IV, Compazine 10 mg IV, Benadryl 25 mg IV, 2 g of magnesium IV and 1 L normal saline IV. Continue medications as directed. Follow-up with your Dr. in a few days for recheck. Keep heart catheter appointment as you have scheduled next Tuesday. Return for worsening pain, chest pain, fever, vomiting, weakness, breathing problems or other concerns as needed. BRITNEY CEE MD Jun 30, 2017 11:51
[2017-06-30 11:52] LABS: INR 0.9 (0.8-1.4); PROTHROMBIN TIME PATIENT 12.7 SEC (12.2-14.7)
[2017-06-30] MEDS: MAGNESIUM 1 GM/100 ML IVPB 100 ML IV SCH ×2 (11:59→12:02)
[2017-06-30] MEDS ORDERED: PROCHLORPERAZINE 10 MG/2ML INJ (COMPAZINE) IV ONE (12:00)
[2017-06-30] MEDS ORDERED: diphenhydrAMINE 50 MG/ML INJ (BENADRYL) IVP ONE (12:00)
[2017-06-30 12:03] LABS: ALANINE AMINOTRANSFERASE 23 U/L (0-55); ALBUMIN 3.9 GM/DL (3.2-4.5); ALKALINE PHOSPHATASE 143 U/L (40-136); BILIRUBIN,TOTAL 0.2 MG/DL (0.1-1.0); BUN/CREATININE RATIO 16; CALCIUM 9.1 MG/DL (8.5-10.1); CARBON DIOXIDE 25 MMOL/L (21-32); CHLORIDE 105 MMOL/L (98-107); CREATININE SERUM 1.37 MG/DL (0.60-1.30); GFR ESTIMATED 54; GLUCOSE 115 MG/DL (70-105); POTASSIUM 4.5 MMOL/L (3.6-5.0); SODIUM 140 MMOL/L (135-145); TOTAL PROTEIN 7.3 GM/DL (6.4-8.2)
--- NOTE | 2017-06-30 12:05 | Diagnostic Imaging Report ---
Portable erect AP chest at 11:54 a.m. INDICATION: Chest pain. FINDINGS: The heart size is within normal limits and stable when compared to 06/15/17. The lungs are clear. There is no evidence for failure, pneumonia or for pleural effusion to suggest an acute abnormality. The mediastinum is not widened. The osseous structures are intact. IMPRESSION: There is no evidence for active disease. When compared to the prior exam, there has been no significant change. Dictated by: Dictated on workstation # [id number]
[2017-06-30 12:10] LABS: MYOGLOBIN SERUM 41.1 NG/ML (10.0-92.0)
[2017-06-30 15:43] VITALS: BP 162/88
--- OUTSIDE RECORDS SUMMARY | 2017-06-30 20:50 | XMS REPORT | Encounter Summary ---
Author Author [facility] Organization [facility] Address Unknown Phone Unavailable Care Team Providers Care Public Safety Telecommunicator Name Role Phone PCP Unavailable Reason for Visit * Reason Comments Cardiac Eval Scheduled per [employer]; f/u for CAD, Mixed HLD Encounter Details Date Type Department Care Team Description 05/16/2017 Office Visit [facility] David Simms MD Cardiac Eval (Scheduled [address] per [employer]; f/u for Tru [address] 4023 CAD, Mixed HLD) [place] [address] [place] [address] [phone] Social History Tobacco Use Types Packs/Day Years Used Date Current Every Day Smoker Cigarettes Alcohol Use Drinks/Week oz/Week Comments Yes 0 Standard 0.0 drinks or equivalent Sex Assigned at Date Recorded Not on file as of this encounter Last Filed Vital Signs Vital Sign Reading Time Taken Blood Pressure 150/72 05/16/2017 3:11 PM TORPEDO WORKER Pulse 73 05/16/2017 3:11 PM TORPEDO WORKER Temperature - - Respiratory Rate - - Oxygen Saturation - - Inhaled Oxygen - - Concentration Weight 82.6 kg (182 lb) 05/16/2017 3:11 PM TORPEDO WORKER Height 175.3 cm (5' 9") 05/16/2017 3:11 PM TORPEDO WORKER Body Mass Index 26.88 05/16/2017 3:11 PM TORPEDO WORKER in this encounter Functional Status Functional Status Response Date of Assessment Does the patient have a hearing impairment: No 03/06/2017 as of this encounter Instructions * Patient Instructions - David Simms MD - 05/16/2017 3:30 PM TORPEDO WORKER Increase the Ranexa to 1000mg twice daily Stop the Imdur Take plavix through July Increase Losartan to 100mg daily in this encounter Progress Notes * David Simms MD - 05/16/2017 3:30 PM TORPEDO WORKER Formatting of this note may be different from the original. Date of Service: 05/16/2017 Kaz Restrepo is a 56 y[address] male. HPI Dr. Simms and I had the pleasure of seeing Kaz Restrepo for cardiac follow-up. He is a [...] chest discomfort and taken back to the Thermostat Repairer but there was no change in his [...] neurologic symptoms 03/06/2017 Weakness 01/14/2017 Dysphagia 01/14/2017 GREI (acute kidney injury) ([facility]) 01/13/2017 Unstable angina ([facility]) 08/13/2016 Coronary artery disease of [place] artery of [place] heart with stable angina pectoris (HCC) 08/09/2016 07/29/16: heart cath ([place], [place]) - total occlusion of the right [...] Diagnoses Name Primary? Coronary artery disease of [place] artery of [place] heart with stable angina pectoris (HCC) Yes Essential hypertension Mixed hyperlipidemia Chest pain, unspecified type Assessment and Plan In summary Mr. Restrepo has the following issues: 1. Coronary artery disease. He had PCI to PATIENT ACCOUNTS COORDINATOR of the right coronary artery in July [...] to follow with Dr. Cochran, his primary software test analyst. 2. Hypertension. His blood pressures a little [...] Visit Diagnoses Diagnosis Coronary artery disease of [place] artery of [place] heart with stable angina pectoris (HCC) - Primary Essential hypertension Unspecified essential hypertension Mixed hyperlipidemia Chest pain, unspecified type in this encounter
--- OUTSIDE RECORDS SUMMARY | 2017-06-30 20:50 | XMS REPORT | Clinical Summary ---
Author Author [facility] Organization [facility] Address Unknown Phone Unavailable Care Team Providers Care Manifold Builder Name Role Phone PCP Unavailable Source Comments Some departments are not documenting in the electronic medical record. If you do not see the information that you expected, contact Release of Information in the Health Information Management department at [phone] for further assistance in locating additional records.[facility] Allergies Active Allergy Reactions Severity Noted Date [...] for Chest Pain. Max of 3 of [place] artery of tablets, call 911. 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 ([facility]) Overview: 07/29/16: heart cath ([place]ia [place], [place]) - total occlusion of the right [...] Simms MD Cardiac Eval ( Scheduled per [facility]; f/u for CAD, Mixed HLD) from [...] Taken Blood Pressure 150/72 05/16/2017 3:11 PM ABLE BODIED WATCHMAN Pulse 73 05/16/2017 3:11 PM ABLE BODIED WATCHMAN Temperature 36.8 C (98.2 F) 03/06/2017 1:42 PM CDT Respiratory Rate - - Oxygen Saturation 96% 03/06/2017 1:42 PM CDT Inhaled Oxygen - - Concentration Weight 82.6 kg (182 lb) 05/16/2017 3:11 PM ABLE BODIED WATCHMAN Height 175.3 cm (5' 9") 05/16/2017 3:11 PM ABLE BODIED WATCHMAN Body Mass Index 26.88 05/16/2017 3:11 PM ABLE BODIED WATCHMAN Plan of Treatment Health Maintenance Due Date Last Done Comments HEPATITIS C SCREENING 1961 PHYSICAL (COMPREHENSIVE) 1968 EXAM PERTUSSIS VACCINE 1972 TETANUS VACCINE 1978 COLORECTAL CANCER 2011 SCREENING INFLUENZA VACCINE 01/18/2017 Results Not on filefrom Last 3 Months
--- OUTSIDE RECORDS SUMMARY | 2017-06-30 20:50 | XMS REPORT | Continuity of Care Document ---
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 Regulatory Consultant Name Role Phone [employer] Unavailable Unavailable Problems Medications Allergies, Adverse Reactions, Alerts Immunizations Results Vital Signs Encounters Location Location Details Encounter Type Encounter Number Reason For Visit Attending Provider ADM Date DC Date Status Source OUTPATIENT [id number] MUKESH SMITH 08/09/2016 Active [facility] INPATIENT [id number] JACKELYN MURDOCK 03/06/20172016 Active [facility] OUTPATIENT [id number] ROME TRINH 04/07/2017 Active [facility] OUTPATIENT [id number] MUKESH SMITH 05/16/2017 Active [facility] O MUKESH SMITH Active [facility] Procedures Plan of Care Social History Assessment and Plan Family History Advance Directives Functional Status
== END 2017-06-30 15:48 | disposition home or self-care (01) ==
LOC: EDUNIT# 10:50 → ER 10:51
DX: R07.89 Other chest pain (principal); G43.909 Migraine, unspecified, not intractable, without status migrainosus; I25.10 Atherosclerotic heart disease of native coronary artery without angina pectoris; I25.2 Old myocardial infarction; E78.00 Pure hypercholesterolemia, unspecified; I10 Essential (primary) hypertension; K21.9 Gastro-esophageal reflux disease without esophagitis; M10.9 Gout, unspecified; F41.9 Anxiety disorder, unspecified; F32.9 Major depressive disorder, single episode, unspecified; Z82.49 Family history of ischemic heart disease and other diseases of the circulatory system; Z86.73 Personal history of transient ischemic attack (TIA), and cerebral infarction without residual deficits; Z87.440 Personal history of urinary (tract) infections; Z87.19 Personal history of other diseases of the digestive system; Z86.718 Personal history of other venous thrombosis and embolism; Z79.82 Long term (current) use of aspirin; Z95.5 Presence of coronary angioplasty implant and graft
CPT/HCPCS: 36415; 71045; 80053; 83735; 83874; 84484; 85025; 85610; 85730; 93005; 93041; 96361; 96365; 96366; 96375

== ENCOUNTER 2017-07-20 08:11 | Inpatient (IN) | payer SELFPAY ==
[~2017-07-20] VITALS: Ht 175.3 cm; Wt 82.6 kg
[2017-07-20] VITALS (12 sets, daily range): BP systolic 121–168; BP diastolic 70–99
--- OUTSIDE RECORDS SUMMARY | 2017-07-20 08:15 | XMS REPORT | Continuity of Care Document ---
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 Maintenance Technician Name Role Phone [employer] Unavailable Unavailable Problems Medications Allergies, Adverse Reactions, Alerts Immunizations Results Vital Signs Encounters Location Location Details Encounter Type Encounter Number Reason For Visit Attending Provider ADM Date DC Date Status Source OUTPATIENT [id number] MUKESH SMITH 08/09/2016 Active [facility] INPATIENT [id number] JACKELYN MURDOCK 03/06/20172016 Active [facility] OUTPATIENT [id number] ROME TRINH 04/07/2017 Active [facility] OUTPATIENT [id number] MUKESH SMITH 05/16/2017 Active [facility] O MUKESH SMITH Active [facility] Procedures Plan of Care Social History Assessment and Plan Family History Advance Directives Functional Status
--- OUTSIDE RECORDS SUMMARY | 2017-07-20 08:16 | XMS REPORT | Encounter Summary ---
Author Author [facility] Organization [facility] Address Unknown Phone Unavailable Care Team Providers Care Price Economist Name Role Phone Leroy Lao MD [address] Hernandes DO PCP Reason for Visit * Reason Comments Cardiac Eval Scheduled per [employer]; f/u for CAD, Mixed HLD Encounter Details Date Type Department Care Team Description 05/16/2017 Office Visit [facility] Cardiology David Simms MD Cardiac Eval (Scheduled [address] per [employer]; f/u for Tru G600 MS 4023 CAD, Mixed HLD) [place] [address] [place] [address] [phone] Social History Tobacco Use Types Packs/Day Years Used Date Current Every Day Smoker Cigarettes Alcohol Use Drinks/Week oz/Week Comments Yes 0 Standard 0.0 drinks or equivalent Sex Assigned at Date Recorded Not on file as of this encounter Last Filed Vital Signs Vital Sign Reading Time Taken Blood Pressure 150/72 05/16/2017 3:11 PM TOUR SALES REPRESENTATIVE Pulse 73 05/16/2017 3:11 PM TOUR SALES REPRESENTATIVE Temperature - - Respiratory Rate - - Oxygen Saturation - - Inhaled Oxygen - - Concentration Weight 82.6 kg (182 lb) 05/16/2017 3:11 PM TOUR SALES REPRESENTATIVE Height 175.3 cm (5' 9") 05/16/2017 3:11 PM TOUR SALES REPRESENTATIVE Body Mass Index 26.88 05/16/2017 3:11 PM TOUR SALES REPRESENTATIVE in this encounter Functional Status Functional Status Response Date of Assessment Does the patient have a hearing impairment: No 03/06/2017 as of this encounter Instructions * Patient Instructions - David Simms MD - 05/16/2017 3:30 PM TOUR SALES REPRESENTATIVE Increase the Ranexa to 1000mg twice daily Stop the Imdur Take plavix through July Increase Losartan to 100mg daily in this encounter Progress Notes * David Simms MD - 05/16/2017 3:30 PM TOUR SALES REPRESENTATIVE Formatting of this note may be different [...] chest discomfort and taken back to the Radiological Technologist but there was no change in his [...] 01/14/2017 Dysphagia 01/14/2017 GERI (acute kidney injury) (HCC) 01/13/2017 Unstable angina (HCC) 08/13/2016 Coronary artery disease of [place] artery of [place] heart with stable angina pectoris (HCC) 08/09/2016 07/29/16: heart cath ([place]ia [place], [place]) - total occlusion of the right [...] Diagnoses Name Primary? Coronary artery disease of [place] artery of [place] heart with stable angina pectoris (HCC) Yes Essential hypertension Mixed hyperlipidemia Chest pain, unspecified type Assessment and Plan In summary Mr. Restrepo has the following issues: 1. Coronary artery disease. He had PCI to OPERATIONS ACCOUNTANT of the right coronary artery in July [...] to follow with Dr. Cochran, his primary food production associate. 2. Hypertension. His blood pressures a little [...] Visit Diagnoses Diagnosis Coronary artery disease of [place] artery of [place] heart with stable angina pectoris (HCC) - Primary Essential hypertension Unspecified essential hypertension Mixed hyperlipidemia Chest pain, unspecified type
--- OUTSIDE RECORDS SUMMARY | 2017-07-20 08:16 | XMS REPORT | Clinical Summary ---
Author Author [facility] Organization [facility] Address Unknown Phone Unavailable Care Team Providers Care Inspector Balance Bridge Name Role Phone Leroy Lao MD [address] Hernandes DO PCP Source Comments Some departments are not documenting in the electronic medical record. If you do not see the information that you expected, contact Release of Information in the Health Information Management department at [phone] for further assistance in locating additional records.[facility] Allergies Active Allergy Reactions Severity Noted [...] for Chest Pain. Max of 3 of [place] artery of tablets, call 911. 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 08/09/2016 pectoris ([facility] Overview: 07/29/16: heart cath (Via [place], [place]) - total occlusion of the right [...] Simms MD Cardiac Eval ( Scheduled per [facility]; f/u for CAD, Mixed HLD) from Last [...] Taken Blood Pressure 150/72 05/16/2017 3:11 PM STERNMAN Pulse 73 05/16/2017 3:11 PM STERNMAN Temperature 36.8 C (98.2 F) 03/06/2017 1:42 PM CDT Respiratory Rate - - Oxygen Saturation 96% 03/06/2017 1:42 PM CDT Inhaled Oxygen - - Concentration Weight 82.6 kg (182 lb) 05/16/2017 3:11 PM STERNMAN Height 175.3 cm (5' 9") 05/16/2017 3:11 PM STERNMAN Body Mass Index 26.88 05/16/2017 3:11 PM STERNMAN Plan of Treatment Health Maintenance Due Date Last Done Comments HEPATITIS C SCREENING 1961 PHYSICAL (COMPREHENSIVE) 1968 EXAM PERTUSSIS VACCINE 1972 TETANUS VACCINE 1978 COLORECTAL CANCER 2011 SCREENING INFLUENZA VACCINE 01/18/2017 Results Not on filefrom Last 3 Months
[2017-07-20] MEDS ORDERED: NS IV 1000 ML 1,000 ML ONE (08:36)
[2017-07-20] MEDS ORDERED: LIDOCAINE 1% INJ 50 ML (XYLOCAINE) VIAL ONE (08:36)
[2017-07-20] MEDS ORDERED: HEParin (CATH LAB) 2,000 ML IV ONE (08:36)
[2017-07-20] MEDS ORDERED: NS IV 1000 ML 1,000 ML IV SCH (08:59)
[2017-07-20 09:10] LABS: HEMOGLOBIN 10.9 G/DL (13.3-17.7); MEAN PLATELET VOLUME 9.2 FL (7.4-10.4); RED BLOOD COUNT 3.95 10^6/uL (4.35-5.85); RED CELL DISTRIBUTION WIDTH 13.7 % (10.0-14.5); WHITE BLOOD COUNT 4.4 10^3/uL (4.3-11.0)
[2017-07-20 09:17] LABS: CLARITY,URINE CLEAR; COLOR,URINE YELLOW; GLUCOSE, URINE (UA) NEGATIVE (NEGATIVE); KETONES,URINE NEGATIVE (NEGATIVE); LEUKOCYTE ESTERASE ,URINE 3+ (NEGATIVE); NITRITE,URINE NEGATIVE (NEGATIVE); PH,URINE 5 (5-9); PROTEIN,URINE 2+ (NEGATIVE); UROBILINOGEN,URINE 1 MG/DL (NORMAL)
--- NOTE | 2017-07-20 09:21 | Diagnostic Imaging Report ---
Indication: Preop for heart catheterization. Time of exam: 9:05 AM Correlation is made with prior study of 06/30/2017. FINDINGS: The heart size is normal. The lungs are clear. No pleural effusion or pneumothorax is identified. The pulmonary vascularity is normal. IMPRESSION: No acute abnormality detected. Dictated by: Dictated on workstation # [id number]
[2017-07-20 09:26] LABS: INR 0.9 (0.8-1.4); PROTHROMBIN TIME PATIENT 12.6 SEC (12.2-14.7)
[2017-07-20] MEDS ORDERED: CARV6.25 PO (09:33)
[2017-07-20] MEDS ORDERED: RANO500T3 PO (09:33)
[2017-07-20 09:35] LABS: BILIRUBIN,URINE 1+ (NEGATIVE); RBC,URINE RARE /HPF; WBC,URINE >100 /HPF
[2017-07-20 09:36] LABS: ALBUMIN 3.8 GM/DL (3.2-4.5); BILIRUBIN,TOTAL 0.2 MG/DL (0.1-1.0); CALCIUM 8.9 MG/DL (8.5-10.1); CREATININE SERUM 1.42 MG/DL (0.60-1.30); POTASSIUM 3.8 MMOL/L (3.6-5.0); TOTAL PROTEIN 7.4 GM/DL (6.4-8.2)
[2017-07-20 09:36] LABS: BACTERIA,URINE MODERATE /HPF
[2017-07-20] MEDS ORDERED: INFLUENZA TRIvalent 2017-2018 0.5 ML/45 MCG SYR IM ONE (09:45)
[2017-07-20] MEDS ORDERED: MIDAZOLAM 5 MG/5 ML (VERSED) VIAL ONE (10:40)
[2017-07-20] MEDS ORDERED: fentaNYL INJECTION 100 MCG/2 ML AMP ONE (10:40)
--- NOTE | 2017-07-20 10:59 | Cardiac Procedure Note-CS/ASA ---
Pre-Procedure Note Pre-Op Procedure Note H&P Reviewed The H&P was reviewed, patient examined and no changes noted. Date H&P Reviewed: Jul 20, 2017 Time H&P Reviewed: 10:59 Conscious Sedation Pre-Proced Time Reviewed: 10:59 ASA Class: 3 Airway Mallampati Classification: ([place] appropriate class) I. II. III, IV Lungs Heart ASA score ASA 1: a normal healthy patient ASA 2: a patient with a mild systemic disease (mid diabetes, controlled hypertension, obesity x ASA 3: a patient with a severe systemic disease that limits activity (angina , COPD, prior Myocardial infarction) ASA 4: a patient with an incapacitating disease that is a constant threat to life (CHF, renal failure) ASA 5: a moribund patient not expected to survive 24 hrs. (ruptured aneurysm) ASA 6: a declared brain patient whose organs are being harvested. For emergent operations, add the letter E after the classification Grade 3 Sedation Plan: Analgesia, Amnesia, Plan communicated to team members, Discussed options with patient/fam, Discussed risks with patient/fam Note The patient is an appropriate candidate to undergo the planned procedure, sedation, and anesthesia. The patient immediately re-assessed prior to indication. ANDREA ELIAS MD Jul 20, 2017 10:59
[2017-07-20] MEDS ORDERED: NITROGLYCERIN DRIP 25 MG/D5W 250 ML IV ONE (11:11)
[2017-07-20] MEDS ORDERED: HEParin 1000 UNIT/ML (10ML VIAL) FOR BOLUS ONE (11:11)
[2017-07-20] MEDS ORDERED: ASPIRIN 325 MG (5 GR) TABLET ONE (11:33)
[2017-07-20] MEDS ORDERED: CLOPIDOGREL 300 MG (PLAVIX) TABLET PO ONE (11:33)
--- NOTE | 2017-07-20 11:42 | Cardiac Cath Report ---
Cardiac Cath Report Physician (s)/Quarryman (s) Physician ANDREA ELIAS MD Pre-Procedure Diagnosis Pre-Procedure Diagnosis: Coronary artery disease Post-Procedure Note Procedure Start Date: Jul 20, 2017 Name of Procedure: Left heart catheterization Balloon angioplasty to the right coronary artery Findings/Procedure Note PROCEDURE NOTE: After explaining the procedure to the patient, all pros and cons were explained, all questions were answered. The patient signed the consent and then she was placed on the cardiac catheterization laboratory. The patient was placed on the cardiac catheterization laboratory. Groin was prepped SL fashion local anesthesia was used. Sheath placed in the artery. Tino right and left catheter were used to access the coronary system. Tino right was used to cross the aortic valve to the left ventricular cavity , pressure was measured Patient received 6000 units of heparin, has severe in-stent restenosis in multiple segments, FR guide was used, BMW wire was advanced in the right coronary artery. Part distally. Then I used a long balloon 3.030 mm expanded up to 3.26 mm under 14 chase, angiogram showed some residual restenosis in 2 segments of the stents. I used noncompliant balloon NC Quantum 3.015 mm went under high pressure up to 17 chase, good results, distally there is 40 percent stenosis, at the right PDA there is some stenosis at its treated medically Pigtail was used to access the left ventricular cavity. At the end of the procedure the sheath was removed. Closure device was used FINDINGS: Hemodynamics LV 129/15, end-diastolic pressure of 15 Aorta 132/56 mean of 86 ANATOMY: Left Main is free of obstructive disease Left Anterior Descending a slightly tortuous with mild to moderate disease in the midportion, diagonal artery has moderate disease. Small artery. Left Circumflex is [id number] in size, the proximal circumflex artery appeared to have moderate disease, questionable 60-70 percent, will require FFR evaluation, the proper circumflex artery is a smaller artery about 2 mm in diameter that has subtotal occlusion that need to be addressed at a later point Right Coronory Artery is large dominant artery with full metal jacket in the proximal mid and distal portion with multiple segment of severe in-stent restenosis, successful balloon angioplasty using long Emerge balloon 3.030 mm then I used NC Quantum noncompliant balloon 3.015 mm expanded up to 17 chase at multiple segment, excellent results, the distal portion of the stent has 40-50 percent stenosis that was not treated, the right PDA has 50 percent stenosis that will be treated medically LV Gram was not done, pressure was measured Aorta was not done CONCLUSION: 1. Large dominant right coronary artery with multiple segment of severe in- stent restenosis successful balloon angioplasty then using noncompliant balloon NC Quantum 3015 mm expanded under 17 chase at the proximal and midportion. Excellent results. The distal portion of the stent has mild to moderate disease that was treated conservatively, the right PDA has moderate disease that would be treated conservatively. 2. 60-70 percent proximal circumflex artery stenosis that will need to have an FFR done and proper circumflex artery has subtotal occlusion that need to be treated with probably balloon angioplasty and possible small stent, procedure was postponed due to the underlying renal insufficiency and the complexity of the disease in addition to the use of larger amount of contrast during the intervention of the right coronary artery 3. Mimo-ax-xixccrnb disease in the mid LAD and proximal diagonal artery 4. Normal left ventricular end-diastolic pressure DISCUSSION AND RECOMMENDATION: I will continue maximizing medical therapy, due to the underlying renal insufficiency and the complexity of the lesion of the circumflex artery I decided to stage it to be done in one week, monitor renal function and instructed the patient on taking large amount of fluid Anesthesia Type: Conscious Sedation Estimated blood loss (mL): 10 ml Contrast Amount: 60 ml Total Radiation Dose: 425 mGy Post-Procedure Diagnosis Post-operative diagnosis: Unstable angina Coronary artery disease Hypertension Hyperlipidemia ANDREA ELIAS MD Jul 20, 2017 11:42
[2017-07-20] MEDS ORDERED: NITROGLYCERIN 0.4 MG SL TABS BTL 25'S SL PRN (11:45)
[2017-07-20] MEDS ORDERED: PATIENT MAY USE OWN MEDS, ALL PO SCH (11:45)
[2017-07-20] MEDS ORDERED: ALPRAZolam 0.25 MG (XANAX) TAB PO PRN (11:45)
--- OUTSIDE RECORDS SUMMARY | 2017-07-20 12:30 | XMS REPORT | Encounter Summary ---
Author Author [facility] Organization [facility] Address Unknown Phone Unavailable Care Team Providers Care Service Desk Lead Name Role Phone Leroy Lao MD [address] Silver Hernandes DO PCP Reason for Visit * Reason Comments Cardiac Eval Scheduled per [employer]; f/u for CAD, Mixed HLD Encounter Details Date Type Department Care Team Description 05/16/2017 Office Visit [facility] Cardiology David Simms MD Cardiac Eval (Scheduled [address] per [employer]; f/u for Tru G600 MS 4023 CAD, Mixed HLD) [place] [address] [place] [address] [phone] Social History Tobacco Use Types Packs/Day Years Used Date Current Every Day Smoker Cigarettes Alcohol Use Drinks/Week oz/Week Comments Yes 0 Standard 0.0 drinks or equivalent Sex Assigned at Date Recorded Not on file as of this encounter Last Filed Vital Signs Vital Sign Reading Time Taken Blood Pressure 150/72 05/16/2017 3:11 PM BUSINESS OFFICE ASSOCIATE Pulse 73 05/16/2017 3:11 PM BUSINESS OFFICE ASSOCIATE Temperature - - Respiratory Rate - - Oxygen Saturation - - Inhaled Oxygen - - Concentration Weight 82.6 kg (182 lb) 05/16/2017 3:11 PM BUSINESS OFFICE ASSOCIATE Height 175.3 cm (5' 9") 05/16/2017 3:11 PM BUSINESS OFFICE ASSOCIATE Body Mass Index 26.88 05/16/2017 3:11 PM BUSINESS OFFICE ASSOCIATE in this encounter Functional Status Functional Status Response Date of Assessment Does the patient have a hearing impairment: No 03/06/2017 as of this encounter Instructions * Patient Instructions - David Simms MD - 05/16/2017 3:30 PM BUSINESS OFFICE ASSOCIATE Increase the Ranexa to 1000mg twice daily Stop the Imdur Take plavix through July Increase Losartan to 100mg daily in this encounter Progress Notes * David Simms MD - 05/16/2017 3:30 PM BUSINESS OFFICE ASSOCIATE Formatting of this note may be different [...] chest discomfort and taken back to the Claims Adjudicator but there was no change in his [...] angina (HCC) 08/13/2016 Coronary artery disease of [place] artery of [place] heart with stable angina pectoris (HCC) 08/09/2016 07/29/16: heart cath ([place]ia [place], [place]) - total occlusion of the right [...] Diagnoses Name Primary? Coronary artery disease of [place] artery of [place] heart with stable angina pectoris (HCC) Yes Essential hypertension Mixed hyperlipidemia Chest pain, unspecified type Assessment and Plan In summary Mr. Restrepo has the following issues: 1. Coronary artery disease. He had PCI to CRYPTOLOGIC SUPPORT SPECIALIST of the right coronary artery in July [...] to follow with Dr. Cochran, his primary route driver. 2. Hypertension. His blood pressures a little [...] Visit Diagnoses Diagnosis Coronary artery disease of [place] artery of [place] heart with stable angina pectoris (HCC) - Primary Essential hypertension Unspecified essential hypertension Mixed hyperlipidemia Chest pain, unspecified type
--- OUTSIDE RECORDS SUMMARY | 2017-07-20 12:30 | XMS REPORT | Clinical Summary ---
Author Author [facility] Organization [facility] Address Unknown Phone Unavailable Care Team Providers Care Loan Documents Closer Name Role Phone Leroy Lao MD [address] Silver Hernandes DO PCP Source Comments Some departments are not documenting in the electronic medical record. If you do not see the information that you expected, contact Release of Information in the Health Information Management department at [phone] for further assistance in locating additional records.[facility] Allergies Active Allergy Reactions Severity Noted [...] for Chest Pain. Max of 3 of [place] artery of tablets, call 911. 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 08/09/2016 pectoris ([facility]) Overview: 07/29/16: heart cath ([place]ia [place], [place]) - total occlusion of the right [...] Simms MD Cardiac Eval ( Scheduled per [facility]; f/u for CAD, Mixed HLD) from Last [...] Taken Blood Pressure 150/72 05/16/2017 3:11 PM DETHISTLER OPERATOR Pulse 73 05/16/2017 3:11 PM DETHISTLER OPERATOR Temperature 36.8 C (98.2 F) 03/06/2017 1:42 PM CDT Respiratory Rate - - Oxygen Saturation 96% 03/06/2017 1:42 PM CDT Inhaled Oxygen - - Concentration Weight 82.6 kg (182 lb) 05/16/2017 3:11 PM DETHISTLER OPERATOR Height 175.3 cm (5' 9") 05/16/2017 3:11 PM DETHISTLER OPERATOR Body Mass Index 26.88 05/16/2017 3:11 PM DETHISTLER OPERATOR Plan of Treatment Health Maintenance Due Date Last Done Comments HEPATITIS C SCREENING 1961 PHYSICAL (COMPREHENSIVE) 1968 EXAM PERTUSSIS VACCINE 1972 TETANUS VACCINE 1978 COLORECTAL CANCER 2011 SCREENING INFLUENZA VACCINE 01/18/2017 Results Not on filefrom Last 3 Months
--- OUTSIDE RECORDS SUMMARY | 2017-07-20 12:30 | XMS REPORT | Continuity of Care Document ---
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 Exceptional Children'S Teacher Name Role Phone [employer] Unavailable Unavailable Problems Medications Allergies, Adverse Reactions, Alerts Immunizations Results Vital Signs Encounters Location Location Details Encounter Type Encounter Number Reason For Visit Attending Provider ADM Date DC Date Status Source OUTPATIENT [id number] MUKESH SMITH 08/09/2016 Active [facility] INPATIENT [id number] JACKELYN MURDOCK 03/06/20172016 Active [facility] OUTPATIENT [id number] ROME TRINH 04/07/2017 Active [facility] OUTPATIENT [id number] MUKESH SMITH 05/16/2017 Active [facility] O MUKESH SMITH Active [facility] Procedures Plan of Care Social History Assessment and Plan Family History Advance Directives Functional Status
[2017-07-20] MEDS: busPIRone 15 MG (BUSPAR) TABLET PO SCH ×2 (14:22→20:37)
[2017-07-20] MEDS: cloNIDine 0.1 MG (CATAPRES) TAB PO SCH ×2 (14:23→20:37)
[2017-07-20] MEDS: NS IV 1000 ML 1,000 ML IV SCH ×2 (14:24→21:55)
[2017-07-20] MEDS: buPROPion SR 150 MG (WELLBUTRIN SR) TAB PO SCH (17:48)
[2017-07-20] MEDS: OMEGA 3 (FISH OIL) 1000 MG CAP PO SCH (17:48)
[2017-07-20] MEDS: HYDROcodone/APAP 10 MG/325 MG (LORTAB) TAB PO PRN (19:45)
[2017-07-20] MEDS: CARVEDILOL 6.25 MG (COREG) TAB PO SCH (20:37)
[2017-07-20] MEDS: RANOLAZINE ER 500 MG TAB (RANEXA) PO SCH (20:37)
[2017-07-20] MEDS ORDERED: CLOPIDOGREL 75 MG (PLAVIX) TABLET PO SCH (21:00)
[2017-07-20] MEDS ORDERED: RED YEAST RICE PO SCH (21:00)
[2017-07-20] MEDS ORDERED: traZODone 100 MG (DESYREL) TAB PO SCH (21:00)
[2017-07-20] MEDS ORDERED: ATORVASTATIN 10 MG (LIPITOR) TABLET PO SCH (21:00)
[2017-07-20] MEDS ORDERED: LOSARTAN 100 MG (COZAAR) TABLET PO SCH (21:00)
[2017-07-20] MEDS ORDERED: ASPIRIN E.C. 81 MG (ECOTRIN) TAB PO SCH (21:00)
[2017-07-21] VITALS: BP 112/69
[2017-07-21 04:00] VITALS: BP 171/89
[2017-07-21] MEDS: HYDROcodone/APAP 10 MG/325 MG (LORTAB) TAB PO PRN (04:59)
[2017-07-21 06:21] LABS: BUN/CREATININE RATIO 13; CALCIUM 8.2 MG/DL (8.5-10.1); CARBON DIOXIDE 17 MMOL/L (21-32); CHLORIDE 106 MMOL/L (98-107); CREATININE SERUM 0.97 MG/DL (0.60-1.30); GFR ESTIMATED > 60; GLUCOSE 91 MG/DL (70-105); POTASSIUM 5.1 MMOL/L (3.6-5.0); SODIUM 136 MMOL/L (135-145)
[2017-07-21 08:00] VITALS: BP 148/81
[2017-07-21] MEDS: RANOLAZINE ER 500 MG TAB (RANEXA) PO SCH (08:02)
[2017-07-21] MEDS: OMEGA 3 (FISH OIL) 1000 MG CAP PO SCH (08:02)
[2017-07-21] MEDS: cloNIDine 0.1 MG (CATAPRES) TAB PO SCH (08:02)
[2017-07-21] MEDS: buPROPion SR 150 MG (WELLBUTRIN SR) TAB PO SCH (08:02)
[2017-07-21] MEDS: busPIRone 15 MG (BUSPAR) TABLET PO SCH (08:03)
[2017-07-21] MEDS: CARVEDILOL 6.25 MG (COREG) TAB PO SCH (08:03)
--- NOTE | 2017-07-21 08:34 | Cardiology Progress Note ---
Subjective Date Seen by Provider: Jul 21, 2017 Time Seen by Provider: 08:32 Subjective/Events-last exam patient is laying down in bed, feeling well. Denied any chest pain or shortness of breath Review of Systems General: No Chills, No Night Sweats, No Fatigue, No Malaise, No Appetite, No Other HEENT: No Head Aches, No Visual Changes, No Eye Pain, No Ear Pain, No Dysphasia , No Sinus Congestion, No Post Nasal Drip, No Sore Throat, No Other Pulmonary: No Dyspnea, No Cough, No Pleuritic Chest Pain, No Other Cardiovascular: No: Chest Pain, Palpitations, Orthopnea, Paroxysmal Noc. Dyspnea, Edema, Lt Headedness, Other Objective-Cardiology Exam Last Set of Vital Signs Vital Signs 07/21/17 08:00 Temp 98.9 Pulse 53 Resp 20 B/P (MAP) 148/81 (103) Pulse Ox 97 O2 Delivery Room Air Capillary Refill : Less Than 3 Seconds I&O Intake and Output 07/21/17 00:00 Intake Total 1650 ml Output Total 0 ml Balance 1650 ml Intake Oral 650 ml IV Total 1000 ml Output Urine Total 0 ml # Voids 1 General: Alert, Oriented X3, Cooperative HEENT: Atraumatic, PERRLA Neck: Supple, No JVD, No Thyromegaly Lungs: Clear to Auscultation, Normal Air Movement Heart: Regular Rate, Normal S1, Normal S2, No Murmurs Abdomen: Normal Bowel Sounds, Soft, No Tenderness, No Hepatosplenomegaly, No Masses Extremities: No Clubbing, No Cyanosis, No Edema, Normal Pulses, No Tenderness/ Swelling Skin: No Rashes, No Breakdown, No Significant Lesion Neuro: Normal Gait, Normal Speech, Strength at 5/5 X4 Ext, Normal Tone, Sensation Intact Psych/Mental Status: Mental Status NL, Mood NL Results Lab Laboratory Tests 07/20/17 09:02 07/21/17 05:00 A/P-Cardiology Admission Diagnosis Coronary artery disease Hypertension Hyperlipidemia Urinary tract infection Chest pain, accelerating angina Assessment/Plan Coronary artery disease status post cardiac catheterization as described below 1. Large dominant right coronary artery with multiple segment of severe in- stent restenosis successful balloon angioplasty then using noncompliant balloon NC Quantum 3015 mm expanded under 17 chase at the proximal and midportion. Excellent results. The distal portion of the stent has mild to moderate disease that was treated conservatively, the right PDA has moderate disease that would be treated conservatively. 2. 60-70 percent proximal circumflex artery stenosis that will need to have an FFR done and proper circumflex artery has subtotal occlusion that need to be treated with probably balloon angioplasty and possible small stent, procedure was postponed due to the underlying renal insufficiency and the complexity of the disease in addition to the use of larger amount of contrast during the intervention of the right coronary artery 3. Whvz-xl-lbwnncic disease in the mid LAD and proximal diagonal artery 4. Normal left ventricular end-diastolic pressure Hypertension, continue current medications and monitor Hyperlipidemia, continue current medications and monitor Chest pain, extremity angina, feeling better at this time. Planning for intervention on the circumflex artery Urinary tract infection, patient has recurrent UTI, discussed with Dr. Hernandes , we'll start him on antibiotic empirically and arrange for follow-up on Tuesday with Greta. ANDREA ELIAS MD Jul 21, 2017 08:34
--- NOTE | 2017-07-21 08:42 | Cardiology Progress Note ---
Subjective Date Seen by Provider: Jul 21, 2017 Time Seen by Provider: 08:39 Subjective/Events-last exam Patient is in bed. Denies any further episode of CP at this time. Asking to be discharged home. Review of Systems General: No Chills, No Night Sweats, No Fatigue HEENT: No Visual Changes, No Dysphasia Pulmonary: No Dyspnea, No Cough Cardiovascular: No: Chest Pain, Palpitations, Paroxysmal Noc. Dyspnea, Edema Gastrointestinal: No: Nausea, Vomiting, Abdominal Pain Genitourinary: No Dysuria, No Frequency Musculoskeletal: No: neck pain, back pain Neurological: No: Weakness, Numbness, Change in speech, Confusion Objective-Cardiology Exam Last Set of Vital Signs Vital Signs 07/21/17 08:00 Temp 98.9 Pulse 53 Resp 20 B/P (MAP) 148/81 (103) Pulse Ox 97 O2 Delivery Room Air Capillary Refill : Less Than 3 Seconds I&O Intake and Output 07/21/17 00:00 Intake Total 1650 ml Output Total 0 ml Balance 1650 ml Intake Oral 650 ml IV Total 1000 ml Output Urine Total 0 ml # Voids 1 General: Alert, Oriented X3, Cooperative HEENT: Atraumatic, PERRLA Neck: Supple, No JVD, No Thyromegaly Lungs: Clear to Auscultation, Normal Air Movement Heart: Regular Rate, Normal S1, Normal S2, No Murmurs Abdomen: Normal Bowel Sounds, Soft, No Tenderness, No Hepatosplenomegaly, No Masses Extremities: No Clubbing, No Cyanosis, No Edema, Normal Pulses, No Tenderness/ Swelling Skin: No Rashes, No Breakdown, No Significant Lesion Neuro: Normal Gait, Normal Speech, Strength at 5/5 X4 Ext, Normal Tone, Sensation Intact Psych/Mental Status: Mental Status NL, Mood NL Results Lab Laboratory Tests 07/20/17 09:02 07/21/17 05:00 A/P-Cardiology Admission Diagnosis Coronary artery disease Hypertension Hyperlipidemia Urinary tract infection Chest pain, accelerating angina Assessment/Plan Coronary artery disease status post cardiac catheterization as described below 1. Large dominant right coronary artery with multiple segment of severe in- stent restenosis successful balloon angioplasty then using noncompliant balloon NC Quantum 3015 mm expanded under 17 chase at the proximal and midportion. Excellent results. The distal portion of the stent has mild to moderate disease that was treated conservatively, the right PDA has moderate disease that would be treated conservatively. 2. 60-70 percent proximal circumflex artery stenosis that will need to have an FFR done and proper circumflex artery has subtotal occlusion that need to be treated with probably balloon angioplasty and possible small stent, procedure was postponed due to the underlying renal insufficiency and the complexity of the disease in addition to the use of larger amount of contrast during the intervention of the right coronary artery 3. Zfoz-km-gpxwdynt disease in the mid LAD and proximal diagonal artery 4. Normal left ventricular end-diastolic pressure Planning for intervention on the circumflex artery next week. Hypertension, continue current medications and monitor Hyperlipidemia, continue current medications and monitor Chest pain, extremity angina, feeling better at this time. Planning for intervention on the circumflex artery Urinary tract infection, patient has recurrent UTI, discussed with Kwame in Pharmacy, will start on Doxycycline 100mg BID. Follow up with Dr. Hernandes on Tuesday. JOSE CALLE Jul 21, 2017 08:42
[2017-07-21] MEDS ORDERED: DOXY100T19 PO (08:44)
[2017-07-21] MEDS ORDERED: amLODIPine 10 MG (NORVASC) TAB PO SCH (09:00)
[2017-07-21] MEDS ORDERED: SERTRALINE 100 MG (ZOLOFT) TAB PO SCH (09:00)
[2017-07-21 10:16] LABS: HEMOGLOBIN 10.8 G/DL (13.3-17.7); MEAN PLATELET VOLUME 9.5 FL (7.4-10.4); RED BLOOD COUNT 3.87 10^6/uL (4.35-5.85); RED CELL DISTRIBUTION WIDTH 13.8 % (10.0-14.5); WHITE BLOOD COUNT 4.5 10^3/uL (4.3-11.0)
[2017-07-21 10:20] VITALS: BP 148/81
== END 2017-07-21 10:20 | disposition home or self-care (01) | DRG 251 ==
LOC: CATH 08:11 → ICU 11:55
PROVIDERS: ADMIT Internal Medicine Cardiovascular Disease; ATTEND Internal Medicine Cardiovascular Disease
PROC: 02703ZZ Dilation of Coronary Artery, One Artery, Percutaneous Approach (ICD-10-PCS; principal; 2017-07-20)
PROC: 4A023N7 Measurement of Cardiac Sampling and Pressure, Left Heart, Percutaneous Approach (ICD-10-PCS; 2017-07-20)
PROC: B2151ZZ Fluoroscopy of Left Heart using Low Osmolar Contrast (ICD-10-PCS; 2017-07-20)
PROC: B2111ZZ Fluoroscopy of Multiple Coronary Arteries using Low Osmolar Contrast (ICD-10-PCS; 2017-07-20)
DX: I25.110 Atherosclerotic heart disease of native coronary artery with unstable angina pectoris (principal); T82.855A Stenosis of coronary artery stent, initial encounter; N39.0 Urinary tract infection, site not specified; I10 Essential (primary) hypertension; I08.3 Combined rheumatic disorders of mitral, aortic and tricuspid valves; E78.5 Hyperlipidemia, unspecified; I27.20 Pulmonary hypertension, unspecified; I73.9 Peripheral vascular disease, unspecified; K21.9 Gastro-esophageal reflux disease without esophagitis; F32.9 Major depressive disorder, single episode, unspecified; G43.409 Hemiplegic migraine, not intractable, without status migrainosus; Z87.891 Personal history of nicotine dependence
CPT/HCPCS: 36415; 71045; 80048; 80053; 80061; 81000; 85027; 85347; 85610; 85730; 87077; 87081; 87088; 87186; 93005; 93458

== ENCOUNTER 2017-09-28 11:49 | Inpatient (IN) | payer OTHER ==
[~2017-09-28] VITALS: Ht 175.3 cm; Wt 85.3 kg
[~2017-09-28 11:49] MED LIST changes: +CARV6.25 PO; +DOXY100T19 PO
[2017-09-28] MEDS ORDERED: ASPIRIN 81 MG CHEW (CHILDREN'S ASA) PO ONE (12:00)
[2017-09-28] MEDS ORDERED: morphine INJ 10 MG/ML 1ML (SYR OR VIAL) IVP STA (12:23)
--- NOTE | 2017-09-28 12:37 | Diagnostic Imaging Report ---
INDICATION: Chest pain and elevated blood pressure. Time of exam 12:11 PM Correlation is made with prior study 07/27/2017. Minimal patchy parenchymal density in the left base is noted, new since prior exam. This may represent minimal infiltrate or atelectasis. The pulmonary vascularity is normal. Right lung is clear. No effusion is seen. No pneumothorax is identified. IMPRESSION: Development of minimal patchy left basilar infiltrate or atelectasis since exam from 07/27/2017. Dictated by: Dictated on workstation # [id number]
[2017-09-28 12:52] LABS: BASOPHILS % (AUTO) 0 % (0-10); EOSINOPHILS # (AUTO) 0.3 10^3/uL (0.0-0.3); EOSINOPHILS % (AUTO) 2 % (0-10); HEMATOCRIT 34 % (40-54); HEMOGLOBIN 10.6 G/DL (13.3-17.7); LYMPHOCYTES # (AUTO) 1.1 X 10^3 (1.0-4.0); LYMPHOCYTES % (AUTO) 10 % (12-44); MEAN CORPUSCULAR HEMOGLOBIN 25 PG (25-34); MEAN CORPUSCULAR HGB CONC 32 G/DL (32-36); MEAN CORPUSCULAR VOLUME 81 FL (80-99); MEAN PLATELET VOLUME 9.9 FL (7.4-10.4); MONOCYTES # (AUTO) 0.6 X 10^3 (0.0-1.0); MONOCYTES % (AUTO) 6 % (0-12); NEUTROPHILS # (AUTO) 9.3 X 10^3 (1.8-7.8); NEUTROPHILS % (AUTO) 82 % (42-75); PLATELET COUNT 297 10^3/uL (130-400); RED BLOOD COUNT 4.18 10^6/uL (4.35-5.85); RED CELL DISTRIBUTION WIDTH 15.3 % (10.0-14.5); WHITE BLOOD COUNT 11.3 10^3/uL (4.3-11.0)
[2017-09-28] MEDS ORDERED: KETOROLAC 30 MG/ML VIAL IVP STA (13:08)
--- NOTE | 2017-09-28 13:16 | ED Chest Pain ---
General Chief Complaint: Chest Pain Stated Complaint: CP,HIGH BP Nursing Triage Note: TO EXAM ROOM 2 VIA W/C WITH C/O L-CHEST PAIN RADIATING TO L-ARM. PAIN WORSE TODAY THAN PRIOR ET FOR THE LAST 3 DAYS. PT. C/O OF H/A OF "20" ON NUMERIC SCALE. PT. 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 81 MG ASPIRIN TAKEN LAST NIGHT. Nursing Sepsis Screen: No Definite Risk Source: patient Exam Limitations: no limitations History of Present Illness Date Seen by Provider: Sep 28, 2017 Time Seen by Provider: 14:55 Initial Comments Here with report of chest pain, shortness of air and headache. He took nitroglycerin for the chest pain and developed a headache. He did take a baby aspirin last night. Has had some increased cough and possible fever. Denies nausea, vomiting or sweating. Denies weakness. 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: Yes NTG SL BELLSTAND ATTENDANT: Yes Associated Symptoms: No abdominal pain, No back pain; fatigue, fever/chills; No nausea/vomiting, No shortness of breath, No weakness Allergies and Home Medications Allergies Coded Allergies: penicillin G (Verified Allergy, Severe, SWELLING, 03/30/17) Home Medications Alprazolam 0.25 Mg Tablet, 0.25 MG PO BID PRN for ANXIETY, (Reported) Amlodipine Besylate 10 Mg Tablet, 10 MG PO DAILY, (Reported) Aspirin 81 Mg Tablet.dr, 81 MG PO HS, (Reported) Atorvastatin Calcium 10 Mg Tablet, 10 MG PO HS, (Reported) Bupropion HCl 150 Mg Tablet.er, 150 MG PO BID, (Reported) Buspirone HCl 15 Mg Tablet, 15 MG PO TID, (Reported) Carvedilol 6.25 Mg Tablet, 6.25 MG PO BID, (Reported) Clonidine HCl 0.1 Mg Tablet, 0.1 MG PO TID, (Reported) Clopidogrel Bisulfate 75 Mg Tablet, 75 MG PO HS, (Reported) Doxycycline Monohydrate 100 Mg Tablet, 100 MG PO BID Prescribed by: JOSE JAMES on 07/21/17 0844 Hydrocodone/Acetaminophen 1 Each Tablet, 1-2 TAB PO Q6H PRN for PAIN-MODERATE, ( Reported) Losartan Potassium 100 Mg Tablet, 100 MG PO HS, (Reported) Nitroglycerin 0.4 Mg Tab.subl, 0.4 MG SL UD PRN for CHEST PAIN, (Reported) PLACE 1 TAB UNDER TONGUE NEEDED FOR CHEST PAIN; IF PAIN REMAINS AFTER 5 MINUTES, CALL 911 [place]-3 Fatty Acids/Fish Oil 1 Each Capsule, 1,000 MG PO BID, (Reported) Ranolazine 500 Mg Tab.er.12h, 500 MG PO BID, (Reported) Red Yeast Rice 600 Mg Capsule, 3 CAP PO HS, (Reported) Sertraline HCl 100 Mg Tablet, 100 MG PO DAILY, (Reported) Trazodone HCl 100 Mg Tablet, 100 MG PO HS, (Reported) Patient Home Medication List Home Medication List Reviewed: Yes Review of Systems Constitutional: see HPI; No chills; fever, weakness EENTM: No Mouth Pain Respiratory: Cough, Shortness of Air, Wheezing Cardiovascular: Chest Pain; Denies Edema Gastrointestinal: Denies Abdominal Pain, Denies Diarrhea, Denies Nausea, Denies Vomiting Genitourinary: No Symptoms Reported Musculoskeletal: No back pain; muscle pain; No neck pain Skin: no symptoms reported Psychiatric/Neurological: No Symptoms Reported Endocrine: No Symptoms Reported All Other Systems Reviewed Negative Unless Noted: Yes Past [place]-Ksnueo-Awhfcr Hx Patient Social History Alcohol Beverage of Choice: Beer Type Used: Cigarettes Former Smoker, Quit: October 24, 2016 2nd Hand Smoke Exposure: Yes Recent Foreign Travel: No Contact w/Someone Who Travel: No Recent Infectious Disease Expo: No Recent Hopitalizations: Yes Physical Abuse: No Sexual Abuse: No Immunizations Up To Date Tetanus Booster (TDap): Less than 5yrs PED Vaccines UTD: No Date of Influenza Vaccine: Jul 28, 2017 Seasonal Allergies Seasonal Allergies: No Past Medical History Surgeries: Yes (hernia) Abdominal, Coronary Stent, Orthopedic Respiratory: No Currently Using CPAP: No Currently Using BIPAP: No Cardiac: Yes Coronary Artery Disease, Deep Vein Thrombosis, Heart Attack, High Cholesterol, Hypertension Neurological: Yes Headaches /Migraines, TIA Reproductive Disorders: No Sexually Transmitted Disease: No Genitourinary: Yes (recurrent urinary tract infections) Prostate Problems, UTI-Chronic Gastrointestinal: Yes Gastroesophageal Reflux, Hiatal Hernia, Ulcer Musculoskeletal: Yes Arthritis, Rheumatoid Arthritis, Back Injury, Chronic Back Pain, Fractures Endocrine: No HEENT: No Eye Injury Loss of Vision: Denies Hearing Impairment: Denies Cancer: No Psychosocial: Yes Anxiety, Depression Nursing Suicide Risk Score: 0 Integumentary: No Blood Disorders: No Adverse Reaction/Blood Tranf: No Family Medical History Reviewed Nursing Family Hx Arthritis 19 MOTHER RAILROAD [employer] SUPER[employer]OR G8 SISTER FH: COPD (chronic obstructive pulmonary disease) Hypercholesterolemia 19 MOTHER Hypertension 19 MOTHER Heart Disease, Hypertension Physical Exam Vital Signs Vital Signs - First Documented 09/28/17 09/28/17 12:00 12:56 Temp 99.8 Pulse 88 Resp 20 B/P (MAP) 206/103 (137) Pulse Ox 94 O2 Delivery Nasal Cannula O2 Flow Rate 2.00 Capillary Refill : Less Than 3 Seconds General Appearance: No Apparent Distress, WD/WN HEENT: PERRL/EOMI, Pharynx Normal Neck: Non Tender, Supple Respiratory: No Respiratory Distress, Crackles (left base) Cardiovascular: Regular Rate, Rhythm, No Murmur Gastrointestinal: Non Tender, Soft Extremity: Normal Range of Motion, Non Tender Neurologic/Psychiatric: Alert, Oriented x3 Skin: Normal Color, Warm/Dry Focused Exam Lactate Level 09/28/17 12:20: Lactic Acid Level 1.38 Lactic Acid Level Laboratory Tests Test 09/28/17 12:20 Lactic Acid Level 1.38 MMOL/L (0.50-2.00) Progress/Results/Core Measures Lab Results Laboratory Tests Test 09/28/17 11:17 09/28/17 12:20 09/28/17 12:56 Range/Units White Blood Count 11.3 H 4.3-11.0 10^3/uL Red Blood Count 4.18 L 4.35-5.85 10^6/uL Hemoglobin 10.6 L 13.3-17.7 G/DL Hematocrit 34 L 40-54 % Mean Corpuscular Volume 81 80-99 FL Mean Corpuscular Hemoglobin 25 25-34 PG Mean Corpuscular Hemoglobin Concent 32 32-36 G/DL Red Cell Distribution Width 15.3 H 10.0-14.5 % Platelet Count 297 130-400 10^3/uL Mean Platelet Volume 9.9 7.4-10.4 FL Neutrophils (%) (Auto) 82 H 42-75 % Lymphocytes (%) (Auto) 10 L 12-44 % Monocytes (%) (Auto) 6 0-12 % Eosinophils (%) (Auto) 2 0-10 % Basophils (%) (Auto) 0 0-10 % Neutrophils # (Auto) 9.3 H 1.8-7.8 X 10^3 Lymphocytes # (Auto) 1.1 1.0-4.0 X 10^3 Monocytes # (Auto) 0.6 0.0-1.0 X 10^3 Eosinophils # (Auto) 0.3 0.0-0.3 10^3/uL Basophils # (Auto) 0.0 0.0-0.1 10^3/uL Lactic Acid Level 1.38 0.50-2.00 MMOL/L Prothrombin Time 12.4 12.2-14.7 SEC INR Comment 0.9 0.8-1.4 Activated Partial Thromboplast Time 21 L 24-35 SEC Sodium Level 139 135-145 MMOL/L Potassium Level 4.2 3.6-5.0 MMOL/L Chloride Level 104 98-107 MMOL/L Carbon Dioxide Level 24 21-32 MMOL/L Anion Gap 11 5-14 MMOL/L Blood Urea Nitrogen 14 7-18 MG/DL Creatinine 1.28 0.60-1.30 MG/DL Estimat Glomerular Filtration Rate 58 BUN/Creatinine Ratio 11 Glucose Level 108 H 70-105 MG/DL Calcium Level 9.0 8.5-10.1 MG/DL Magnesium Level 1.7 L 1.8-2.4 MG/DL Total Bilirubin 0.3 0.1-1.0 MG/DL Aspartate Amino Transf (AST/SGOT) 28 5-34 U/L Alanine Aminotransferase (ALT/SGPT) 33 0-55 U/L Alkaline Phosphatase 137 H 40-136 U/L Myoglobin 50.5 10.0-92.0 NG/ML Troponin I < 0.30 <0.30 NG/ML Total Protein 7.5 6.4-8.2 GM/DL Albumin 4.1 3.2-4.5 GM/DL My Orders Orders - BRITNEY CEE MD Morphine Injection (Morphine Injection (09/28/17 12:23) Lactic Acid Analyzer (09/28/17 13:08) Blood Culture (09/28/17 13:08) Sputum Culture (09/28/17 13:08) Ketorolac Injection (Toradol Injection) (09/28/17 13:08) Cefepime Injection (Maxipime Injection) (09/28/17 14:18) Medications Given in ED Current Medications Medications Dose Ordered Sig/Mckenzie Route Start Time Stop Time Status Last Admin Dose Admin Aspirin 324 mg ONCE ONCE PO 09/28/17 12:00 09/28/17 12:01 DC 09/28/17 12:25 324 MG Vital Signs/I&O 09/28/17 09/28/17 09/28/17 09/28/17 12:00 12:00 12:56 13:37 Temp 99.8 98.6 Pulse 88 71 Resp 20 B/P (MAP) 206/103 (137) 139/88 Pulse Ox 94 98 94 O2 Delivery Nasal Cannula Room Air Nasal Cannula Nasal Cannula O2 Flow Rate 2.00 2.00 Blood Pressure Mean: 137 Progress Note : Progress Note IV, labs, EKG and chest x-ray ordered. ASA 324 mg by mouth. Morphine 5 mg IV ordered. Monitor patient. Toradol 30 mg IV ordered for his headache as this typically helps. Patient has cough and fever. Blood cultures and lactic acid ordered. Monitor patient. 1350: Findings concerning for pneumonia at the left base with elevated blood count and fever. Given patient's comfort care medical history, admission is indicated. 1444: I have discussed the case with Dr. Rabago at [address] Lao now. Patient does have pneumonia and chest pain. We will admit the patient for treatment for his pneumonia and continued workup on his chest pain. Patient agrees with plan. Pain is improved now. Admit, inpatient status. Initial ECG Impression Date: Sep 28, 2017 Initial ECG Impression Time: 11:47 Initial ECG Rate: 91 Initial ECG Rhythm: Normal Sinus Initial ECG Comparisson: Unchanged Comment Sinus rhythm with normal axis. No evidence of ST elevation MT. Unchanged from previous. Interpreted by me. Diagonstic Imaging: Xray Plain Films/CT/US/NM/MRI: chest Comments NAME: WINIFREDEZEQUIEL Currie [facility] REC#: [id number] PT STATUS: REG ER : 1960 PHYSICIAN: VLAD AVELAR APRN ADMIT DATE: 09/28/17/ER Signed Date of Exam: 09/28/17 CHEST 1 VIEW, AP/PA ONLY INDICATION: Chest pain and elevated blood pressure. Time of exam 12:11 PM Correlation is made with prior study 07/27/2017. Minimal patchy parenchymal density in the left base is noted, new since prior exam. This may represent minimal infiltrate or atelectasis. The pulmonary vascularity is normal. Right lung is clear. No effusion is seen. No pneumothorax is identified. IMPRESSION: Development of minimal patchy left basilar infiltrate or atelectasis since exam from 07/27/2017. Dictated by: Dictated on workstation # [id number] Dict: 09/28/17 1234 Trans: 09/28/17 1327 Interpreted by: ROB BUTCHER MD Electronically signed by: ROB BUTCHER MD 09/28/17 1327 Departure Communication (Admissions) Time/Spoke to Admitting Phy: 13:56 Time/Spoke to Consulting Phy: 14:44 Impression Primary Impression: Left lower lobe pneumonia Qualified Codes: J18.1 - Lobar pneumonia, unspecified organism Additional Impression: Chest pain Qualified Codes: R07.9 - Chest pain, unspecified Disposition: ADMITTED INPATIENT Condition: Stable Admissions Decision to Admit Reason: Admit from ER (General) Decision to Admit/Date: Sep 28, 2017 Time/Decision to Admit Time: 13:56 Departure-Patient Inst. Referrals: ANDRES RABAGO DO (PCP/Family) Primary Care Physician BRITNEY CEE MD Sep 28, 2017 13:16
[2017-09-28 13:17] LABS: ALANINE AMINOTRANSFERASE 33 U/L (0-55); ALBUMIN 4.1 GM/DL (3.2-4.5); ALKALINE PHOSPHATASE 137 U/L (40-136); BILIRUBIN,TOTAL 0.3 MG/DL (0.1-1.0); BUN/CREATININE RATIO 11; CARBON DIOXIDE 24 MMOL/L (21-32); CHLORIDE 104 MMOL/L (98-107); CREATININE SERUM 1.28 MG/DL (0.60-1.30); GFR ESTIMATED 58; GLUCOSE 108 MG/DL (70-105); MAGNESIUM 1.7 MG/DL (1.8-2.4); POTASSIUM 4.2 MMOL/L (3.6-5.0); SODIUM 139 MMOL/L (135-145); TOTAL PROTEIN 7.5 GM/DL (6.4-8.2)
[2017-09-28 13:19] LABS: INR 0.9 (0.8-1.4); PROTHROMBIN TIME PATIENT 12.4 SEC (12.2-14.7)
[2017-09-28 13:25] LABS: MYOGLOBIN SERUM 50.5 NG/ML (10.0-92.0)
[2017-09-28] MEDS ORDERED: CEFEPIME INJECTION 2,000 MG in NS (IVPB) 100 ML IV STA (14:18)
--- NOTE | 2017-09-28 15:07 | Consultation-Cardiology ---
HPI-Cardiology Cardiology Consultation Date of Consultation 09/28/17 Date of Admission Time Seen by Provider: 15:02 Indication: Chest pain HPI Patient is a 57 y/o male with history of CP, chronic stable angina, CAD, HTN, HLP. Presented to the ER with complaints of CP and dyspnea for the last 3 days. Reports headache and elevated BP today. Patient took SL nitro prior to presentation to ER with some relief of his CP. States headache has improved. Currently complains of CP rated 4/10. No other complaints at this time. Workup in the ER revealed LLL pneumonia. Patient is being admitted for further management. 57 years old gentleman with history of coronary artery disease, hypertension hyperlipidemia, has been having cough and sputum in addition to low-grade fever and chest pain. Came into the emergency room and diagnosed with pneumonia. He has extensive cardiac history we were called for evaluation, currently feeling slightly better, reporting improvement of chest pain. Still having some cough. Home Medications & Allergies Allergies: Coded Allergies: penicillin G (Verified Allergy, Severe, SWELLING, 03/30/17) Home Medication List Reviewed: Yes medication list reviewed [id number] Hx Patient Social History Alcohol Use: Denies Use Recreational Drug Use: No Type Used: Cigarettes 2nd Hand Smoke Exposure: Yes Recent Foreign Travel: No Recent Infectious Disease Expo: No Recent Hopitalizations: Yes (CATH ET STENT ON 07/28/17 ET BALLOON) Immunizations Up To Date Tetanus Booster (TDap): Less than 5yrs Date of Influenza Vaccine: Jul 28, 2017 Past Medical History CAD, HTN, HLP Family Medical History Significant Family History: Heart Disease, Hypertension Family History: Arthritis 19 MOTHER MONUMENT INSTALLER G8 SISTER FH: COPD (chronic obstructive pulmonary disease) Hypercholesterolemia 19 MOTHER Hypertension 19 MOTHER Constitutional: No diaphoresis, No dizziness; fever, malaise, weakness EENTM: No hearing loss, No vision loss, No epistaxis, No nose pain Respiratory: cough, dyspnea on exertion; No orthopnea; short of breath; No wheezing Cardiovascular: chest pain; No edema; Hx of Intervention; No palpitations; vascular heart diseas Gastrointestinal: No abdominal pain, No constipation Genitourinary: No frequency, No hematuria Musculoskeletal: No back pain, No joint pain Skin: No dryness, No lesions, No rash Psychiatric/Neurological: Denies Depressed, Denies Numbness Reviewed Test Results Reviewed Test Results Lab Laboratory Tests 09/28/17 11:17: White Blood Count 11.3H, Red Blood Count 4.18L, Hemoglobin 10.6L, Hematocrit 34L , Mean Corpuscular Volume 81, Mean Corpuscular Hemoglobin 25, Mean Corpuscular Hemoglobin Concent 32, Red Cell Distribution Width 15.3H, Platelet Count 297, Mean Platelet Volume 9.9, Neutrophils (%) (Auto) 82H, Lymphocytes (%) (Auto) 10L , Monocytes (%) (Auto) 6, Eosinophils (%) (Auto) 2, Basophils (%) (Auto) 0, Neutrophils # (Auto) 9.3H, Lymphocytes # (Auto) 1.1, Monocytes # (Auto) 0.6, Eosinophils # (Auto) 0.3, Basophils # (Auto) 0.0 09/28/17 12:20: Lactic Acid Level 1.38 09/28/17 12:56: Prothrombin Time 12.4, INR Comment 0.9, Activated Partial Thromboplast Time 21L , Sodium Level 139, Potassium Level 4.2, Chloride Level 104, Carbon Dioxide Level 24, Anion Gap 11, Blood Urea Nitrogen 14, Creatinine 1.28, Estimat Glomerular Filtration Rate 58, BUN/Creatinine Ratio 11, Glucose Level 108H, Calcium Level 9.0, Magnesium Level 1.7L, Total Bilirubin 0.3, Aspartate Amino Transf (AST/SGOT) 28, Alanine Aminotransferase (ALT/SGPT) 33, Alkaline Phosphatase 137H, Myoglobin 50.5, Troponin I < 0.30, Total Protein 7.5, Albumin 4.1 ECG Impression ECG Initial ECG Rhythm: Normal Sinus Physical Exam Vital Signs Vital Signs - First Documented 09/28/17 09/28/17 12:00 12:56 Temp 99.8 Pulse 88 Resp 20 B/P (MAP) 206/103 (137) Pulse Ox 94 O2 Delivery Nasal Cannula O2 Flow Rate 2.00 Capillary Refill : Less Than 3 Seconds General Appearance: No Apparent Distress, WD/WN HEENT: PERRL/EOMI, TMs Normal Neck: Non Tender, Supple Respiratory: Chest Non Tender, No Accessory Muscle Use, No Respiratory Distress , Decreased Breath Sounds (LLL) Cardiovascular: Regular Rate, Rhythm, No Edema, No Gallop, No JVD, No Murmur, Normal Peripheral Pulses Gastrointestinal: No Pulsatile Mass, Non Tender, Soft Rectal: Deferred Back: No CVA Tenderness Extremity: Non Tender, No Calf Tenderness Neurologic/Psychiatric: Alert, Oriented x3, administrative services coordinator II-XII Norm as Tested Skin: Normal Color, Warm/Dry A/P-Cardiology Admission Diagnosis Chest pain Pneumonia CAD HTN Assessment/Plan Chest pain, history of chronic stable angina, reports increasing chest pain over the past 3 days. CP relieved with SL nitroglycerin. EKG reveals SR with no acute ST changes, cardiac enzymes negative. Continue to monitor. LLL pneumonia- management per PCP. Continue antibiotics. Coronary artery disease, cardiac catheterization carried out July 27, 2016 revealed total occlusion of right coronary artery, severe stenosis at the proper circumflex artery, ostial circumflex stenosis, LAD had moderate disease. IVUS showed 60 percent stenosis, underwent stenting to the right coronary artery with excellent results. Patient underwent multiple cardiac catheterizations in the month of July due to his ongoing chest pain. Most recent cardiac catheterization carried out by Dr. Ortiz on August 14, 2016 revealed widely patent stented portion of the RCA which was completely occluded before. Malposition of stents in the mid to distal RCA from positive remodeling , likely in a dissection plane site during the complex DIRECTOR OF OPERATIONS FOR THERAPY. Recommended conservative management for the area rather than blaming it, as a very likely that it may thrombosis and he'll off without affecting the stents. Distal circumflex artery with 90 percent stenosis, small vessel supplying very small amount of myocardium. Catheterization done on July 20, 2017 showing severe in-stent restenosis in the right coronary artery successful balloon angioplasty using 3x15 noncompliant balloon with excellent results. The distal portion had mild to moderate disease. Had severe disease at the proximal circumflex artery and distal circumflex artery, it was staged for later due to the use of large amount of contrast, returned for another cardiac catheterization on July showing 80 percent stenosis in the proximal circumflex artery had FFR done at [place] 2.7518 mm expanded to 3 mm with excellent results. Subtotal occlusion of the proper circumflex artery distally, small artery getting filled by collateral from the left system, attempt to cross the lesion was not successful. Dominant right coronary artery with multiple stent, 40 percent in- stent restenosis in the midportion. Good results. Feeling better, no further episodes of chest pain were reported. I will start cardiac rehabilitation program Echocardiogram showed normal LV function, questionable healed vegetation on aortic valve. Functioning normally. Continue to monitor Hypertension, good control at this time, evaluate his tolerance to a higher dose of beta blockers. Hyperlipidemia-intolerant to higher doses of statin, tolerating Lipitor 10 mg daily. Continue to monitor Claudication pain-improved, continue to monitor Headache-complains of intermittent headache over the past several months, was seen by a neurologist at , diagnosed with migraine with associated headache and TIA-like symptoms. 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 Continue to monitor at this time. History of elevated LFTs-continue to monitor. GERD with history of gastritis-maintained on Protonix Tobaccoism, he has stopped smoking in October 2016. 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 Encouraged to continue without any drugs History of hiatal hernia Depression-started patient on Wellbutrin. Thank you for allowing us to participate in the management of Mr. Restrepo. This is Clara Chang PA-C as a scribe for Dr. Lao. This is Dr. Lao, I have seen and evaluated the patient with Clara, and examined the patient and interviewed him, discussed the management plan, agree with the current scribe. Examination lungs had bilateral rhonchi, heart is regular rate and rhythm with normal S1 and S2. He has extensive chronic history as described above. Diagnosed with left lower lobe pneumonia and started on antibiotic, home medication will be restarted. Chest pain is better , has extensive coronary artery disease. I will continue all other medication. I made few minor modifications to the note and used Italic Font Clinical Quality Measures AMI/AHF: ASA po Prior to arrival: Yes CLARA CALLE Sep 28, 2017 15:07 ANDREA LAO MD Sep 28, 2017 16:14
[2017-09-28 15:45] VITALS: BP 145/76
[2017-09-28] MEDS ORDERED: CATHETER FLUSH 10 ML SYR IV PRN (16:00)
[2017-09-28] MEDS ORDERED: morphine INJ 4 MG/ML 1 ML (VIAL/SYRINGE) IV PRN (16:00)
[2017-09-28] MEDS ORDERED: NITROGLYCERIN 0.4 MG SL TABS BTL 25'S SL PRN (16:00)
[2017-09-28] MEDS ORDERED: RT-ALBUTEROL/IPRATROPIUM 3 ML (DUONEB) VIAL INH PRN (16:30)
[2017-09-28] MEDS ORDERED: SERT25TA5 PO (16:37)
[2017-09-28] MEDS ORDERED: TAMS0.4C2 PO (16:37)
[2017-09-28] MEDS: NS IV 1000 ML 1,000 ML IV SCH (16:42)
[2017-09-28 16:45] VITALS: BP 147/77
--- NOTE | 2017-09-28 17:35 | History & Physicial ---
History of Present Illness History of Present Illness Reason for visit/HPI Patient came to the emergency room with chest pain radiating to the left arm. Patient also took nitroglycerin before coming to the emergency room and had a headache Patient has a history of coronary artery disease, hypertension, hyperlipidemia,. Chest x-ray in emergency shows pneumonia left. Patient says she's been coughing and spitting up brown stuff the last 3 days Date of Admission Sep 28, 2017 at 14:50 Time Seen by Provider: 17:35 I consulted on this patient on 09/28/17 17:30 Attending Physician Silver Rabago DO Admitting Physician Silver Rabago DO Consult Allergies and Home Medications Allergies Coded Allergies: penicillin G (Verified Allergy, Severe, SWELLING, 03/30/17) Home Medications Alprazolam 0.25 Mg Tablet, 0.25 MG PO BID PRN for ANXIETY, (Reported) Amlodipine Besylate 10 Mg Tablet, 10 MG PO DAILY, (Reported) Aspirin 81 Mg Tablet.dr, 81 MG PO HS, (Reported) Atorvastatin Calcium 10 Mg Tablet, 10 MG PO HS, (Reported) Bupropion HCl 150 Mg Tablet.er, 150 MG PO BID, (Reported) Buspirone HCl 15 Mg Tablet, 15 MG PO TID, (Reported) Carvedilol 6.25 Mg Tablet, 6.25 MG PO BID, (Reported) Clonidine HCl 0.1 Mg Tablet, 0.1 MG PO TID, (Reported) Clopidogrel Bisulfate 75 Mg Tablet, 75 MG PO HS, (Reported) Hydrocodone/Acetaminophen 1 Each Tablet, 1 TAB PO BID PRN for PAIN-MODERATE, ( Reported) Losartan Potassium 100 Mg Tablet, 100 MG PO HS, (Reported) Nitroglycerin 0.4 Mg Tab.subl, 0.4 MG SL UD PRN for CHEST PAIN, (Reported) PLACE 1 TAB UNDER TONGUE NEEDED FOR CHEST PAIN; IF PAIN REMAINS AFTER 5 MINUTES, CALL 911 [place]-3 Fatty Acids/Fish Oil 1 Each Capsule, 1,000 MG PO BID, (Reported) Ranolazine 500 Mg Tab.er.12h, 500 MG PO BID, (Reported) Red Yeast Rice 600 Mg Capsule, 3 CAP PO HS, (Reported) Sertraline HCl 100 Mg Tablet, 100 MG PO DAILY, (Reported) Sertraline HCl 25 Mg Tablet, 25 MG PO DAILY, (Reported) TAKES ALONG WITH 100MG TABLET Tamsulosin HCl 0.4 Mg Cap.er.24h, 0.4 MG PO 1800, (Reported) Patient Home Medication List Home Medication List Reviewed: No Past Fekbpwb-Ihlgnl-Ssfwuz Hx Patient Social History Employed/Student: unemployed Alcohol Use: Denies Use Number of Drinks Today: AA Alcohol Beverage of Choice: Beer Recreational Drug Use: No Smoking Status: Former Smoker Former Smoker, Quit: October 24, 2016 Type Used: Cigarettes 2nd Hand Smoke Exposure: Yes Recent Foreign Travel: No Contact w/other who traveled: No Recent Hopitalizations: Yes (CATH ET STENT ON 07/28/17 ET BALLOON) Recent Infectious Disease Expo: No Immunizations Up To Date Tetanus Booster (TDap): Less than 5yrs Pediatric: No Date of Influenza Vaccine: Jul 28, 2017 Seasonal Allergies Seasonal Allergies: No Surgeries Yes (hernia) Abdominal, Coronary Stent, Orthopedic Respiratory No Currently Using CPAP: No Currently Using BIPAP: No Cardiovascular Yes (BALLOON ON 07/28/17 ET STENT) Coronary Artery Disease, Deep Vein Thrombosis, Heart Attack, High Cholesterol, Hypertension Neurological Yes Headaches /Migraines, TIA Reproductive System Hx Reproductive Disorders: No Sexually Transmitted Disease: No Genitourinary Yes (recurrent urinary tract infections) Prostate Problems, UTI-Chronic Gastrointestinal Yes Gastroesophageal Reflux, Hiatal Hernia, Ulcer Musculoskeletal Yes Arthritis, Rheumatoid Arthritis, Back Injury, Chronic Back Pain, Fractures Endocrine History of Endocrine Disorders: No HEENT History of HEENT Disorders: No HEENT Disorders: Eye Injury Loss of Vision: Denies Hearing Impairment: Denies Cancer No Psychosocial History of Psychiatric Problem: Yes Behavioral Health Disorders: Anxiety, Depression Integumentary History of Skin or Integumenta: No Blood Transfusions History of Blood Disorders: No Adverse Reaction to a Blood Tr: No Family Medical History Significant Family History: Heart Disease, Hypertension Family Hx: Arthritis 19 MOTHER MENTAL TELEPATHIST G8 SISTER FH: COPD (chronic obstructive pulmonary disease) Hypercholesterolemia 19 MOTHER Hypertension 19 MOTHER Constitutional: no symptoms reported, weakness, other (Date) EENTM: no symptoms reported Respiratory: no symptoms reported Cardiovascular: chest pain Gastrointestinal: no symptoms reported Genitourinary: no symptoms reported Physical Exam Vital Signs Vital Signs - First Documented 09/28/17 09/28/17 09/28/17 12:00 12:56 16:14 Temp 99.8 Pulse 88 Resp 20 B/P (MAP) 206/103 (137) Pulse Ox 94 O2 Delivery Nasal Cannula O2 Flow Rate 2.00 FiO2 28 Capillary Refill : Less Than 3 Seconds General Appearance: No Apparent Distress, WD/WN Eyes: Bilateral Eye Normal Inspection HEENT: Normal ENT Inspection Neck: Normal Inspection Respiratory: Chest Non Tender, No Accessory Muscle Use, No Respiratory Distress Cardiovascular: Regular Rate, Rhythm, No Murmur Gastrointestinal: Non Tender, Soft Assessment/Plan Assessment and Plan Chest pain. Pneumonia. Hypertension. Coronary artery disease. Angina. Hyperlipidemia area Admission Diagnosis Admission Status: Inpatient Order (span 2 midnights) Reason for Inpatient Admission: Chest pain. Pneumonia. Headache. History of coronary artery disease and stents Clinical Quality Measures AMI/AHF: ASA po Prior to arrival: Yes DVT/VTE Risk/Contraindication: Risk Factor Score Per Nursin RFS Level Per Nursing on Admit: 1=Low/No VTE PPX Contraindications-Pharm: Other *list below* SILVER RABAGO DO Sep 28, 2017 17:35
[2017-09-28 17:45] VITALS: BP 155/74
[2017-09-28] MEDS ORDERED: HYDROcodone/APAP 10 MG/325 MG (LORTAB) TAB PO PRN (17:45)
[2017-09-28] MEDS ORDERED: ALPRAZolam 0.25 MG (XANAX) TAB PO PRN (17:45)
[2017-09-28] MEDS: TAMSULOSIN 0.4 MG (FLOMAX) CAP PO SCH (18:45)
[2017-09-28 19:10] VITALS: BP 169/84
[2017-09-28] MEDS: busPIRone 15 MG (BUSPAR) TABLET PO SCH (20:34)
[2017-09-28] MEDS: RANOLAZINE ER 500 MG TAB (RANEXA) PO SCH (20:34)
[2017-09-28] MEDS: cloNIDine 0.1 MG (CATAPRES) TAB PO SCH (20:35)
[2017-09-28] MEDS: CEFEPIME 2 GM/NS 100 ML IVPB IV SCH ×2 (20:35)
[2017-09-28] MEDS: CARVEDILOL 6.25 MG (COREG) TAB PO SCH (20:35)
[2017-09-28] MEDS ORDERED: ASPIRIN E.C. 81 MG (ECOTRIN) TAB PO SCH (21:00)
[2017-09-28] MEDS ORDERED: ATORVASTATIN 10 MG (LIPITOR) TABLET PO SCH (21:00)
[2017-09-28] MEDS ORDERED: CLOPIDOGREL 75 MG (PLAVIX) TABLET PO SCH (21:00)
[2017-09-28] MEDS ORDERED: LOSARTAN 100 MG (COZAAR) TABLET PO SCH (21:00)
[2017-09-28] MEDS ORDERED: ATORVASTATIN CALCIUM 10 MG PO SCH (21:00)
[2017-09-28] MEDS ORDERED: NON-FORMULARY MEDICATION 1 EA EA (Ranolazine (Ranexa) 500 MG) PO SCH (21:00)
[2017-09-28] MEDS ORDERED: BUPROPION HCL 150 MG PO SCH (21:00)
[2017-09-28] MEDS: RT-ALBUTEROL/IPRATROPIUM 3 ML (DUONEB) VIAL INH SCH (21:04)
[2017-09-29 00:45] VITALS: BP 136/70
[2017-09-29] MEDS: RT-ALBUTEROL/IPRATROPIUM 3 ML (DUONEB) VIAL INH SCH ×3 (02:20→14:19)
[2017-09-29] MEDS: NS IV 1000 ML 1,000 ML IV SCH ×2 (02:45→12:49)
[2017-09-29 03:57] VITALS: BP 133/78
[2017-09-29 06:32] LABS: BASOPHILS % (AUTO) 0 % (0-10); EOSINOPHILS # (AUTO) 0.3 10^3/uL (0.0-0.3); EOSINOPHILS % (AUTO) 6 % (0-10); HEMATOCRIT 32 % (40-54); LYMPHOCYTES # (AUTO) 1.1 X 10^3 (1.0-4.0); LYMPHOCYTES % (AUTO) 19 % (12-44); MEAN CORPUSCULAR HEMOGLOBIN 25 PG (25-34); MEAN CORPUSCULAR HGB CONC 32 G/DL (32-36); MEAN CORPUSCULAR VOLUME 80 FL (80-99); MEAN PLATELET VOLUME 9.7 FL (7.4-10.4); MONOCYTES # (AUTO) 0.6 X 10^3 (0.0-1.0); MONOCYTES % (AUTO) 9 % (0-12); NEUTROPHILS # (AUTO) 3.9 X 10^3 (1.8-7.8); NEUTROPHILS % (AUTO) 66 % (42-75); PLATELET COUNT 257 10^3/uL (130-400); RED BLOOD COUNT 3.94 10^6/uL (4.35-5.85); RED CELL DISTRIBUTION WIDTH 15.2 % (10.0-14.5)
[2017-09-29] MEDS: OMEGA 3 (FISH OIL) 1000 MG CAP PO SCH ×2 (06:48→16:00)
[2017-09-29] MEDS: buPROPion SR 150 MG (WELLBUTRIN SR) TAB PO SCH ×2 (06:48→16:01)
[2017-09-29 06:58] LABS: ALANINE AMINOTRANSFERASE 29 U/L (0-55); ALBUMIN 3.6 GM/DL (3.2-4.5); ALKALINE PHOSPHATASE 113 U/L (40-136); BILIRUBIN,TOTAL 0.3 MG/DL (0.1-1.0); BUN/CREATININE RATIO 14; CALCIUM 8.6 MG/DL (8.5-10.1); CARBON DIOXIDE 24 MMOL/L (21-32); CHLORIDE 106 MMOL/L (98-107); CHOLESTEROL 169 MG/DL (< 200); CREATININE SERUM 1.15 MG/DL (0.60-1.30); GFR ESTIMATED > 60; GLUCOSE 98 MG/DL (70-105); HDL CHOLESTEROL 36 MG/DL (40-60); MAGNESIUM 1.5 MG/DL (1.8-2.4); POTASSIUM 3.9 MMOL/L (3.6-5.0); SODIUM 138 MMOL/L (135-145); TOTAL PROTEIN 6.6 GM/DL (6.4-8.2); TRIGLYCERIDES 154 MG/DL (<150); VLDL CHOLESTEROL 31 MG/DL (5-40)
[2017-09-29 08:00] VITALS: BP 197/95
--- NOTE | 2017-09-29 08:20 | Diagnostic Imaging Report ---
INDICATION: Pneumonia, followup. Time of exam 7:47 AM Correlation is made with prior study from one day earlier. The heart size is normal. There has been improved aeration of the left base with clearing of left basilar infiltrate/atelectasis. The remainder lung belcher appear to be fairly clear. No effusion is seen. There is no pneumothorax. IMPRESSION: Improved aeration to the left base when compared to examination one day earlier. Dictated by: Dictated on workstation # [id number]
[2017-09-29] MEDS: busPIRone 15 MG (BUSPAR) TABLET PO SCH ×2 (08:25→12:47)
[2017-09-29] MEDS: CEFEPIME 2 GM/NS 100 ML IVPB IV SCH ×4 (08:25→18:27)
[2017-09-29] MEDS: cloNIDine 0.1 MG (CATAPRES) TAB PO SCH ×2 (08:25→12:47)
[2017-09-29] MEDS: RANOLAZINE ER 500 MG TAB (RANEXA) PO SCH (08:26)
[2017-09-29] MEDS: CARVEDILOL 6.25 MG (COREG) TAB PO SCH (08:26)
[2017-09-29] MEDS ORDERED: amLODIPine 10 MG (NORVASC) TAB PO SCH (09:00)
[2017-09-29] MEDS ORDERED: ASPIRIN E.C. 325 MG (ECOTRIN) TABLET PO SCH (09:00)
[2017-09-29] MEDS ORDERED: NON-FORMULARY MEDICATION 1 EA EA (Amlodipine Besylate 10 MG) PO SCH (09:00)
[2017-09-29] MEDS ORDERED: CLOPIDOGREL 75 MG (PLAVIX) TABLET PO SCH (09:00)
--- NOTE | 2017-09-29 09:26 | Cardiology Progress Note ---
Subjective Date Seen by Provider: Sep 29, 2017 Time Seen by Provider: 09:24 Subjective/Events-last exam Patient is laying down in bed, feeling better, still complaining of generalized fatigue and loss of energy. Review of Systems General: No Chills, No Night Sweats; Fatigue; No Malaise, No Appetite, No Other HEENT: No Head Aches, No Visual Changes, No Eye Pain, No Ear Pain, No Dysphasia , No Sinus Congestion, No Post Nasal Drip, No Sore Throat, No Other Pulmonary: No Dyspnea, No Cough, No Pleuritic Chest Pain, No Other Cardiovascular: No: Chest Pain, Palpitations, Orthopnea, Paroxysmal Noc. Dyspnea, Edema, Lt Headedness, Other Focused Exam Lactate Level 09/28/17 12:20: Lactic Acid Level 1.38 Objective-Cardiology Exam Last Set of Vital Signs Vital Signs 09/28/17 09/28/17 09/29/17 16:14 19:55 03:57 Temp 98.3 Pulse 60 Resp 18 B/P (MAP) 133/78 (96) Pulse Ox 95 O2 Delivery Room Air O2 Flow Rate 2.00 FiO2 28 Capillary Refill : Less Than 3 Seconds I&O Intake and Output 09/29/17 00:00 Intake Total 560 ml Balance 560 ml Intake Oral 360 ml IV Total 200 ml # Voids 1 Daily Weight Change No General: Alert, Oriented X3, Cooperative HEENT: Atraumatic, PERRLA Neck: Supple, No JVD, No Thyromegaly Lungs: Clear to Auscultation, Normal Air Movement Heart: Regular Rate, Normal S1, Normal S2, No Murmurs Abdomen: Normal Bowel Sounds, Soft, No Tenderness, No Hepatosplenomegaly, No Masses Extremities: No Clubbing, No Cyanosis, No Edema, Normal Pulses, No Tenderness/ Swelling Skin: No Rashes, No Breakdown, No Significant Lesion Neuro: Normal Gait, Normal Speech, Strength at 5/5 X4 Ext, Normal Tone, Sensation Intact Psych/Mental Status: Mental Status NL, Mood NL Results Lab Laboratory Tests 09/28/17 11:17 09/28/17 12:56 09/29/17 06:20 A/P-Cardiology Admission Diagnosis Chest pain Pneumonia CAD HTN Assessment/Plan Chest pain, history of chronic stable angina, reports increasing chest pain over the past 3 days. CP relieved with SL nitroglycerin. EKG reveals SR with no acute ST changes, cardiac enzymes negative. Continue to monitor. Questionable pneumonia, no leukocytosis, repeat chest x-ray showed improvement with better aeration, no infiltrate Coronary artery disease, cardiac catheterization carried out July 27, 2016 revealed total occlusion of right coronary artery, severe stenosis at the proper circumflex artery, ostial circumflex stenosis, LAD had moderate disease. IVUS showed 60 percent stenosis, underwent stenting to the right coronary artery with excellent results. Patient underwent multiple cardiac catheterizations in the month of July due to his ongoing chest pain. Most recent cardiac catheterization carried out by Dr. Ortiz on August 14, 2016 revealed widely patent stented portion of the RCA which was completely occluded before. 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 Recommended conservative management for the area rather than blaming it, as a very likely that it may thrombosis and he'll off without affecting the stents. Distal circumflex artery with 90 percent stenosis, small vessel supplying very small amount of myocardium. Catheterization done on July 20, 2017 showing severe in-stent restenosis in the right coronary artery successful balloon angioplasty using 3x15 noncompliant balloon with excellent results. The distal portion had mild to moderate disease. Had severe disease at the proximal circumflex artery and distal circumflex artery, it was staged for later due to the use of large amount of contrast, returned for another cardiac catheterization on July showing 80 percent stenosis in the proximal circumflex artery had FFR done at [place] 2.7518 mm expanded to 3 mm with excellent results. Subtotal occlusion of the proper circumflex artery distally, small artery getting filled by collateral from the left system, attempt to cross the lesion was not successful. Dominant right coronary artery with multiple stent, 40 percent in- stent restenosis in the midportion. Good results. Feeling better, no further episodes of chest pain were reported. I will start cardiac rehabilitation program Echocardiogram showed normal LV function, questionable healed vegetation on aortic valve. Functioning normally. Continue to monitor Hypertension, good control at this time, evaluate his tolerance to a higher dose of beta blockers. Hyperlipidemia-intolerant to higher doses of statin, tolerating Lipitor 10 mg daily. Continue to monitor Claudication pain-improved, continue to monitor Headache-complains of intermittent headache over the past several months, was seen by a neurologist at , diagnosed with migraine with associated headache and TIA-like symptoms. 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 Continue to monitor at this time. History of elevated LFTs-continue to monitor. GERD with history of gastritis-maintained on Protonix Tobaccoism, he has stopped smoking in October 2016. 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 Encouraged to continue without any drugs History of hiatal hernia Depression-started patient on Wellbutrin. Clinical Quality Measures AMI/AHF: ASA po Prior to arrival: Yes DVT/VTE Risk/Contraindication: Risk Factor Score Per Nursin RFS Level Per Nursing on Admit: 1=Low/No VTE PPX Contraindications-Pharm: Other *list below* ANDREA ELIAS MD Sep 29, 2017 09:26
--- OUTSIDE RECORDS SUMMARY | 2017-09-29 10:41 | XMS REPORT | Continuity of Care Document ---
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 Name Role Phone [employer] Unavailable Unavailable Problems Medications Allergies, Adverse Reactions, Alerts Immunizations Results Vital Signs Encounters Location Location Details Encounter Type Encounter Number Reason For Visit Attending Provider ADM Date DC Date Status Source OUTPATIENT [id number] MUKESH SMITH 08/09/2016 Active [facility] INPATIENT [id number] JACKELYN MURDOCK 03/06/20172016 Active [facility] OUTPATIENT [id number] ROME TRINH 04/07/2017 Active [facility] OUTPATIENT [id number] MUKESH SMITH 05/16/2017 Active [facility] O Active [facility] Procedures Plan of Care Social History Assessment and Plan Family History Advance Directives Functional Status
--- OUTSIDE RECORDS SUMMARY | 2017-09-29 10:41 | XMS REPORT | Encounter Summary ---
Author Author [facility] Organization [facility] Address Unknown Phone Unavailable Care Team Providers Care Table And Desk Finisher Name Role Phone Leroy Lao MD [address] Hernandes DO PCP Reason for Visit * Reason Comments Medication Follow-up plavix Encounter Details Date Type Department Care Team Description 09/21/2017 Telephone [facility] Anastasia Coffey, pipe smoking machine offbearer Follow-up [id number] [place] (plavix ) [facility] [address] [place] [address] Social History Tobacco Use Types Packs/Day Years [...] encounter Miscellaneous Notes * Telephone Encounter - Anastasia Coffey RN - 09/21/2017 1:13 PM CDT Connected with Dr. Lao's nurse over the phone to discuss further. It appears patient may have had further angioplasty in [place] since 07/2016. She will review with Dr. Lao and call patient to confirm whether or not he needs to continue plavix. If he does need to continue it, she will call the refill authorization to the [facility] pharmacy on [address] in [place]. * Telephone Encounter - Anastasia Coffey RN - 09/21/2017 1:03 PM CDT Received a refill request from [facility] pharmacy in [place], [place] for patient's plavix. Per the 10/2016 office visit note, pt could discontinue plavix as of 2017 (one year post intervention). OV note indicates pt will be following with his primary gas leak tester, Dr. Lao. Attempted reaching pt to discuss but no answer. Asked that he call back to discuss and/or review with Dr. Lao's office to ensure it is okay for him to stop plavix. in this encounter Plan of Treatment Not on fileas of this encounter Visit Diagnoses Not on filein this encounter
--- OUTSIDE RECORDS SUMMARY | 2017-09-29 10:41 | XMS REPORT | Clinical Summary ---
Author Author [facility] Address Unknown Phone Unavailable Care Team Providers Care Door Repairer Bus Name Role Phone Leroy Lao MD [address] Hernandes DO PCP Source Comments Some departments are not documenting in the electronic medical record. If you do not see the information that you expected, contact Release of Information in the Health Information Management department at [phone] for further assistance in locating additional records.[facility] Allergies Active Allergy Reactions Severity Noted Date [...] for Chest Pain. Max of 3 of [place] artery of tablets, call 911. [place] heart with stable angina pectoris (HCC), Essential hypertension, Mixed hyperlipidemia, Gastroesophageal reflux disease, esophagitis presence not specified, Ischemic chest pain, Tobacco abuse, History of noncompliance with medical [...] Dysphagia 01/14/2017 GERI (acute kidney injury) ([facility]) 01/13/2017 Unstable angina ([facility]) 08/13/2016 Coronary artery disease of [place] artery of [place] heart with stable angina 08/09/2016 pectoris ([facility]) Overview: 07/29/16: heart cath ([place]ia [place], [place]) - total occlusion of the right [...] Encounters Date Type Specialty Care Team Description 09/21/2017 Telephone Cardiology Anastasia Coffey RN Medication Follow- up (plavix ) from Last 3 Months Family History [...] Taken Blood Pressure 150/72 05/16/2017 3: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 Pulse 73 05/16/2017 3: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 Temperature 36.8 C (98.2 F) 03/06/2017 1:42 PM CDT Respiratory Rate - - Oxygen Saturation 96% 03/06/2017 1:42 PM CDT Inhaled Oxygen - - Concentration Weight 82.6 kg (182 lb) 05/16/2017 3: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
[2017-09-29 12:00] VITALS: BP 159/100
[2017-09-29 15:54] VITALS: BP 117/72
[2017-09-29] MEDS: TAMSULOSIN 0.4 MG (FLOMAX) CAP PO SCH (16:01)
[2017-09-29] MEDS ORDERED: CEFD300C3 PO (18:52)
[2017-09-29] MEDS ORDERED: MAGN400C PO (18:54)
--- NOTE | 2017-09-29 18:56 | Discharge Inst-Simple/Standard ---
Discharge Inst-Standard Discharge Medications New, Converted or Re-Newed RX: Transmitted to Pharmacy Patient Instructions/Follow Up Plan of Care/Instructions/FU: ---complete cefdinir (antibiotic) for your pneumonia --take magnesium for low magnesium level- monitor bowel movements as it could cause diarrhea. ---follow up with Dr. Hernandes within 1 week. Activity as Tolerated: Yes Discharge Diet: Cardiac Diet [facility] to [facility] For: worsening breathing status. Planned Outpatient Orders/Ref. Pneu Vac Indicated: Yes ELIE PICKETT MD Sep 29, 2017 18:56
--- NOTE | 2017-09-29 19:06 | Discharge Summary ---
Diagnosis/Chief Complaint Date of Admission Sep 28, 2017 at 14:50 Date of Discharge September 29, 2017 Admission Diagnosis Admission Diagnosis Chest pain. Pneumonia. Hypertension. Coronary artery disease. Angina. Hyperlipidemia Discharge Diagnosis chest pain left lower lobe pneumonia hypoxia- resolved Hypertension coronary artery disease hypomagnesemia Reason Hospital Visit 57 yo M admitted for chest pain found to have left lower lobe pneumonia. Discharge Summary Hospital Course Hospital Course 57 year old male admitted yesterday for pneumonia but initially presented for chest pain. He was treated with antibiotics and went from requiring 2L oxygen to room air overnight. He reports his chest pain has greatly improved. Patient was deemed for discharged 09/29/17; He will complete cefdinir for his pneumonia. He was also found to be low on magnesium- we will also replace this by mouth with magnesium 400mg BID. Dr. Lao was initially consulted on admission for chest pain and patient's extensive history of coronary artery disease. Since his cardiac workup was unrevealiing and his chest pain improved he was discharged to [facility]. Patient is to follow up in [address] Hernandes. Labs Laboratory Tests 09/28/17 11:17: White Blood Count 11.3H, Red Blood Count 4.18L, Hemoglobin 10.6L, Hematocrit 34L , Red Cell Distribution Width 15.3H, Neutrophils (%) (Auto) 82H, Lymphocytes (% ) (Auto) 10L, Neutrophils # (Auto) 9.3H 09/28/17 12:20: 09/28/17 12:56: Activated Partial Thromboplast Time 21L, Glucose Level 108H, Magnesium Level 1.7L, Alkaline Phosphatase 137H 09/28/17 19:05: 09/29/17 06:20: Red Blood Count 3.94L, Hemoglobin 10.0L, Hematocrit 32L, Red Cell Distribution Width 15.2H, Magnesium Level 1.5L, Triglycerides Level 154H, HDL Cholesterol 36L Procedures None. Consultations Dr. Lao Discharge Physical Examination Allergies: Coded Allergies: penicillin G (Verified Allergy, Severe, SWELLING, 03/30/17) Vitals & I&Os Vital Signs Date Time Temp Pulse Resp B/P (MAP) Pulse Ox O2 Delivery O2 Flow Rate FiO2 09/29/17 15:54 99.2 87 18 117/72 (87) 93 Room Air 09/29/17 08:00 2.00 4/11/18 16:14 28 General Appearance: Alert, Oriented X3, Cooperative HEENT: Atraumatic Respiratory: Clear to Auscultation, Other (decreased breath sounds in left lower lung field) Cardiovascular: Regular Rate Abdominal: Normal Bowel Sounds, Soft Extremities: No Clubbing, No Cyanosis Skin: No Rashes Neuro: Normal Speech, Strength at 5/5 X4 Ext, Sensation Intact Psych/Mental Status: Mental Status NL, Mood NL Discharge Home Medications Reviewed and agree with Discharge Medication list on patient's Discharge Instruction sheet Condition at Discharge stable Instructions to Patient/Family Please see electronic discharge instructions given to patient. Clinical Quality Measures Admission Status Admission Dx Chest pain. Pneumonia. Hypertension. Coronary artery disease. Angina. Hyperlipidemia Admission Status: Inpatient Order (span 2 midnights) Reason for Inpatient Admission: Patient was expected to stay 2 midnights but he greatly improved; He was on room oxygen by day 2 and his chest pain was much better. Cardiac work up was negative. His pneumonia was improved enough to be treated as an outpatient. AMI/AHF: ASA po Prior to arrival: Yes DVT/VTE Risk/Contraindication: Risk Factor Score Per Nursin RFS Level Per Nursing on Admit: 1=Low/No VTE PPX Contraindications-Pharm: Other *list below* ELIE PICKETT MD Sep 29, 2017 19:05
== END 2017-09-29 19:36 | disposition home or self-care (01) | DRG 195 ==
LOC: EDUNIT# 11:49 → ER 11:51 → 4TH 14:50
PROVIDERS: ADMIT Family Medicine; ATTEND Family Medicine
DX: J18.9 Pneumonia, unspecified organism (principal); I25.119 Atherosclerotic heart disease of native coronary artery with unspecified angina pectoris; R07.9 Chest pain, unspecified; I10 Essential (primary) hypertension; E78.5 Hyperlipidemia, unspecified; I25.2 Old myocardial infarction; E78.00 Pure hypercholesterolemia, unspecified; K21.9 Gastro-esophageal reflux disease without esophagitis; M06.9 Rheumatoid arthritis, unspecified; F41.9 Anxiety disorder, unspecified; F32.9 Major depressive disorder, single episode, unspecified; I73.9 Peripheral vascular disease, unspecified; G43.909 Migraine, unspecified, not intractable, without status migrainosus; Z88.0 Allergy status to penicillin; Z86.718 Personal history of other venous thrombosis and embolism; Z87.891 Personal history of nicotine dependence; Z95.5 Presence of coronary angioplasty implant and graft; Z87.440 Personal history of urinary (tract) infections
CPT/HCPCS: 36415; 71045; 71046; 80053; 80061; 83605; 83735; 83874; 84484; 85025; 85610; 85730; 87040; 87070; 87077; 87186; 87205; 93005; 93041; 94640; 94664; 94760

== ENCOUNTER → 2017-10-06 | Outpatient (CLI) | payer OTHER ==
[~2017-10-06] MED LIST changes: +CEFD300C3 PO; +MAGN400C PO; +SERT25TA5 PO; +TAMS0.4C2 PO; +TRAZ-189 PO; +TRAZ-190 PO; -TRAZ-28 PO; -TRAZ100T92 PO
[2017-10-06 11:47] LABS: BASOPHILS % (AUTO) 0 % (0-10); EOSINOPHILS # (AUTO) 0.2 10^3/uL (0.0-0.3); EOSINOPHILS % (AUTO) 2 % (0-10); HEMATOCRIT 34 % (40-54); HEMOGLOBIN 10.4 G/DL (13.3-17.7); LYMPHOCYTES # (AUTO) 1.1 X 10^3 (1.0-4.0); LYMPHOCYTES % (AUTO) 10 % (12-44); MEAN CORPUSCULAR HEMOGLOBIN 25 PG (25-34); MEAN CORPUSCULAR HGB CONC 31 G/DL (32-36); MEAN CORPUSCULAR VOLUME 82 FL (80-99); MEAN PLATELET VOLUME 9.7 FL (7.4-10.4); MONOCYTES # (AUTO) 0.6 X 10^3 (0.0-1.0); MONOCYTES % (AUTO) 6 % (0-12); NEUTROPHILS # (AUTO) 8.4 X 10^3 (1.8-7.8); NEUTROPHILS % (AUTO) 81 % (42-75); PLATELET COUNT 295 10^3/uL (130-400); RED BLOOD COUNT 4.17 10^6/uL (4.35-5.85); RED CELL DISTRIBUTION WIDTH 15.5 % (10.0-14.5); WHITE BLOOD COUNT 10.3 10^3/uL (4.3-11.0)
--- NOTE | 2017-10-06 11:55 | Diagnostic Imaging Report ---
INDICATION: Pneumonia. TIME OF EXAM: 11:47 a.m. Correlation is made with prior study from 09/29/2017. There is some minimal developing infiltrate or atelectasis in the right base. Left lung is now clear. No effusion is seen. No pneumothorax is identified. The pulmonary vascularity is normal. IMPRESSION: Minimal developing infiltrate or atelectasis in the right base since examination one week earlier. Dictated by: Dictated on workstation # [id number]
== END ==
LOC: RAD 11:13
PROVIDERS: ATTEND Family Medicine
DX: J18.9 Pneumonia, unspecified organism (principal)
CPT/HCPCS: 36415; 71046; 85025

== ENCOUNTER 2017-12-04 15:58 | Emergency (ER) | payer SELFPAY ==
[~2017-12-04] VITALS: Ht 175.3 cm; Wt 82.1 kg
[~2017-12-04 15:58] MED LIST changes: -TRAZ-189 PO; -TRAZ-190 PO; +TRAZ-28 PO; +TRAZ100T92 PO
[2017-12-04] MEDS ORDERED: MAGNESIUM 1 GM/100 ML IVPB 100 ML IV SCH (16:15)
[2017-12-04] MEDS ORDERED: diphenhydrAMINE 50 MG/ML INJ (BENADRYL) IM ONE ×2 (16:15)
[2017-12-04] MEDS ORDERED: KETOROLAC 30 MG/ML VIAL IVP ONE (16:15)
[2017-12-04] MEDS ORDERED: PROCHLORPERAZINE 10 MG/2ML INJ (COMPAZINE) IV ONE (16:15)
[2017-12-04] MEDS ORDERED: NS IV 1000 ML 1,000 ML IV SCH (16:15)
--- NOTE | 2017-12-04 16:34 | ED Headache ---
General Chief Complaint: Head/Cervical Problems Stated Complaint: MIGRAINE Nursing Triage Note: pt presents to ed with complaints of cabrera x 2 days. pt has hx of chronic cabrera and reports he usually gets a coctail of medicines recommended by [facility] to help it. Nursing Sepsis Screen: No Definite Risk Source: patient, family Exam Limitations: no limitations History of Present Illness Date Seen by Provider: Dec 04, 2017 Time Seen by Provider: 16:29 Initial Comments This 57-year-old white male presents with a migraine headache. Patient has well documented hemiplegic migraines. He receives cocktail here in the emergency department of magnesium, Toradol, Benadryl, and Compazine IV which has been quite successful in the past. Patient denies associated fever, chills, lateralizing or localizing neurologic complaints or change in medication. The patient's past medical history in addition to migraines include coronary artery disease. The patient is not on prophylactic medication for his migraines on a daily basis. Allergies and Home Medications Allergies Coded Allergies: penicillin G (Verified Allergy, Severe, SWELLING, 03/30/17) Home Medications Alprazolam 0.25 Mg Tablet, 0.25 MG PO BID PRN for ANXIETY, (Reported) Amlodipine Besylate 10 Mg Tablet, 10 MG PO DAILY, (Reported) Aspirin 81 Mg Tablet.dr, 81 MG PO HS, (Reported) Atorvastatin Calcium 10 Mg Tablet, 10 MG PO HS, (Reported) Bupropion HCl 150 Mg Tablet.er, 150 MG PO BID, (Reported) Buspirone HCl 15 Mg Tablet, 15 MG PO TID, (Reported) Carvedilol 6.25 Mg Tablet, 6.25 MG PO BID, (Reported) Cefdinir 300 Mg Capsule, 300 MG PO BID Prescribed by: ELIE PICKETT on 09/29/171851 Clonidine HCl 0.1 Mg Tablet, 0.1 MG PO TID, (Reported) Clopidogrel Bisulfate 75 Mg Tablet, 75 MG PO HS, (Reported) Hydrocodone/Acetaminophen 1 Each Tablet, 1 TAB PO BID PRN for PAIN-MODERATE, ( Reported) Losartan Potassium 100 Mg Tablet, 100 MG PO HS, (Reported) Magnesium Oxide 400 Mg Capsule, 400 MG PO BID Prescribed by: ELIE PICKETT on 09/29/171853 Nitroglycerin 0.4 Mg Tab.subl, 0.4 MG SL UD PRN for CHEST PAIN, (Reported) PLACE 1 TAB UNDER TONGUE NEEDED FOR CHEST PAIN; IF PAIN REMAINS AFTER 5 MINUTES, CALL 911 [place]-3 Fatty Acids/Fish Oil 1 Each Capsule, 1,000 MG PO BID, (Reported) Ranolazine 500 Mg Tab.er.12h, 500 MG PO BID, (Reported) Red Yeast Rice 600 Mg Capsule, 3 CAP PO HS, (Reported) Sertraline HCl 100 Mg Tablet, 100 MG PO DAILY, (Reported) Sertraline HCl 25 Mg Tablet, 25 MG PO DAILY, (Reported) TAKES ALONG WITH 100MG TABLET Tamsulosin HCl 0.4 Mg Cap.er.24h, 0.4 MG PO 1800, (Reported) Patient Home Medication List Home Medication List Reviewed: Yes Review of Systems Constitutional: No chills, No fever Eyes: See HPI, Blurred Vision Ears, Nose, Mouth, Throat: denies ear pain, denies epistaxis Respiratory: No cough Cardiovascular: No chest pain Gastrointestinal: nausea Genitourinary: No dysuria, No frequency Musculoskeletal: No back pain Skin: No change in color Psychiatric/Neurological: Denies Anxiety, Denies Depressed Past Ibwtiuq-Nzjkkh-Yrmqvo Hx Past Med/Social Hx: Reviewed Nursing Past Med/Soc Hx Patient Social History Alcohol Use: Denies Use Number of Drinks Today: AA Alcohol Beverage of Choice: Beer Recreational Drug Use: No Smoking Status: Former Smoker Type Used: Cigarettes Former Smoker, Quit: October 24, 2016 2nd Hand Smoke Exposure: Yes Recent Foreign Travel: No Contact w/Someone Who Travel: No Recent Infectious Disease Expo: No Recent Hopitalizations: Yes (CATH ET STENT ON 07/28/17 ET BALLOON) Physical Abuse: No Sexual Abuse: No Mistreated: No Fear: No Immunizations Up To Date Tetanus Booster (TDap): Less than 5yrs PED Vaccines UTD: No Date of Influenza Vaccine: Jul 28, 2017 Seasonal Allergies Seasonal Allergies: No Past Medical History Surgeries: Yes (hernia) Abdominal, Coronary Stent, Orthopedic Respiratory: No Currently Using CPAP: No Currently Using BIPAP: No Cardiac: Yes (BALLOON ON 07/28/17 ET STENT) Coronary Artery Disease, Deep Vein Thrombosis, Heart Attack, High Cholesterol, Hypertension Neurological: Yes Headaches /Migraines, TIA Reproductive Disorders: No Sexually Transmitted Disease: No Genitourinary: Yes (recurrent urinary tract infections) Prostate Problems, UTI-Chronic Gastrointestinal: Yes Gastroesophageal Reflux, Hiatal Hernia, Ulcer Musculoskeletal: Yes Arthritis, Rheumatoid Arthritis, Back Injury, Chronic Back Pain, Fractures Endocrine: No HEENT: No Eye Injury Loss of Vision: Denies Hearing Impairment: Denies Cancer: No Psychosocial: Yes Anxiety, Depression Nursing Suicide Risk Score: 0 Integumentary: No Blood Disorders: No Adverse Reaction/Blood Tranf: No Family Medical History Arthritis 19 MOTHER GROUP SUPERVISOR YARD G8 SISTER FH: COPD (chronic obstructive pulmonary disease) Hypercholesterolemia 19 MOTHER Hypertension 19 MOTHER Heart Disease, Hypertension Physical Exam Vital Signs Vital Signs - First Documented 12/04/17 16:08 Temp 98.1 Pulse 78 Resp 18 B/P (MAP) 143/83 (103) Pulse Ox 96 Capillary Refill : Less Than 3 Seconds General Appearance: WD/WN HEENT: normal ENT inspection Neck: full range of motion, supple Cardiovascular: normal peripheral pulses, regular rate, rhythm Respiratory: chest non-tender, lungs clear Gastrointestinal: normal bowel sounds, non tender Back: normal inspection Extremities: normal range of motion, non-tender, normal inspection Psychiatric: alert, oriented x 3, other (left-sided weakness) Crainal Nerves: normal hearing Motor/Sensory: weak motor strength LUE Skin: normal color, warm/dry Progress/Results/Core Measures Results/Orders My Orders Orders - MUKESH EASON MD Ns Iv 1000 Ml (Sodium Chloride 0.9%) (12/04/17 16:15) Magnesium 1 Gm/100 Ml Ivpb (Magnesium Te[place] (12/04/17 16:15) Diphenhydramine Injection (Benadryl Inje (12/04/17 16:15) Ketorolac Injection (Toradol Injection) (12/04/17 16:15) Prochlorperazine Injection (Compazine In (12/04/17 16:15) Diphenhydramine Injection (Benadryl Inje (12/04/17 16:15) Diphenhydramine Injection (Benadryl Inje (12/04/17 16:45) Medications Given in ED Current Medications Medications Dose Ordered Sig/Mckenzie Route Start Time Stop Time Status Last Admin Dose Admin Diphenhydramine HCl 25 mg ONCE ONCE IV 12/04/17 16:45 12/04/17 16:46 DC 12/04/17 16:48 25 MG Ketorolac Tromethamine 30 mg ONCE ONCE IVP 12/04/17 16:15 12/04/17 16:19 DC 12/04/17 16:43 30 MG Prochlorperazine Edisylate 10 mg ONCE ONCE IV 12/04/17 16:15 12/04/17 16:19 DC 12/04/17 16:43 10 MG Vital Signs/I&O 12/04/17 16:08 Temp 98.1 Pulse 78 Resp 18 B/P (MAP) 143/83 (103) Pulse Ox 96 Blood Pressure Mean: 103 Progress Progress Note : Time: 16:35 Progress Note Patient was given a liter normal saline with 10 mg Compazine, 25 mg of Benadryl , 2 g magnesium, and 30 mg Toradol IV. 5:10 pm The patient's headache abated with the migraine cocktail. Departure Impression Primary Impression: Migraine Qualified Codes: G43.109 - Migraine with aura, not intractable, without status migrainosus Disposition: 01 HOME, SELF-CARE Condition: Improved Departure-Patient Inst. Decision time for Depature: 17:11 Referrals: ANDRES RABAGO DO (PCP/Family) Primary Care Physician Patient Instructions: Migraine Headache (DC) Add. Discharge Instructions: Trial of oral Toradol and/or Compazine at home for future migraines. Close follow-up with Dr. Rabago. Return if any problems or questions. All discharge instructions reviewed with patient and/or family. Voiced understanding. MUKESH EASON MD Dec 04, 2017 16:34
[2017-12-04] MEDS ORDERED: diphenhydrAMINE 50 MG/ML INJ (BENADRYL) IV ONE (16:45)
[2017-12-04 17:53] VITALS: BP 137/53
== END 2017-12-04 17:53 | disposition home or self-care (01) ==
LOC: EDUNIT# 15:58 → ER 15:59
DX: G43.909 Migraine, unspecified, not intractable, without status migrainosus (principal); I25.10 Atherosclerotic heart disease of native coronary artery without angina pectoris; E78.00 Pure hypercholesterolemia, unspecified; I10 Essential (primary) hypertension; K21.9 Gastro-esophageal reflux disease without esophagitis; I25.2 Old myocardial infarction; F41.9 Anxiety disorder, unspecified; F32.9 Major depressive disorder, single episode, unspecified; Z86.718 Personal history of other venous thrombosis and embolism; Z95.5 Presence of coronary angioplasty implant and graft; Z87.891 Personal history of nicotine dependence; Z88.0 Allergy status to penicillin; Z79.82 Long term (current) use of aspirin; Z87.81 Personal history of (healed) traumatic fracture; Z87.19 Personal history of other diseases of the digestive system; Z86.73 Personal history of transient ischemic attack (TIA), and cerebral infarction without residual deficits
CPT/HCPCS: 96365; 96375

== ENCOUNTER 2017-12-22 19:06 | Emergency (ER) | payer OTHER ==
[~2017-12-22] VITALS: Ht 175.3 cm; Wt 83.5 kg
[~2017-12-22 19:06] MED LIST changes: +TRAZ-189 PO; +TRAZ-190 PO; -TRAZ-28 PO; -TRAZ100T92 PO
--- OUTSIDE RECORDS SUMMARY | 2017-12-22 19:10 | XMS REPORT | Clinical Summary ---
Author Author [facility] Organization [facility] Address Unknown Phone Unavailable Care Team Providers Care Pipe Welder Name Role Phone Leroy Lao MD 21 Silver Hernandes DO PCP Source Comments Some departments are not documenting in the electronic medical record. If you do not see the information that you expected, contact Release of Information in the Health Information Management department at [phone] for further assistance in locating additional records.[facility] Allergies Active Allergy Reactions Severity Noted [...] for Chest Pain. Max of 3 of [place] artery of tablets, call 911. [place] heart with stable angina pectoris (HCC), Essential [...] 01/14/2017 Dysphagia 01/14/2017 GERI (acute kidney injury) ([facility]) 01/13/2017 Unstable angina ([facility]) 08/13/2016 Coronary artery disease of [place] artery of [place] heart with stable angina 08/09/2016 pectoris ([facility]) Overview: 07/29/16: heart cath (Via [place], [place]) - total occlusion of the right [...] Date TIA (transient ischemic attack) 01/12/2017 01/14/2017 Family History Medical History Relation Name Comments [...] Taken Blood Pressure 150/72 05/16/2017 3:11 PM GUNITE MIXER Pulse 73 05/16/2017 3:11 PM GUNITE MIXER Temperature 36.8 C (98.2 F) 03/06/2017 1:42 PM CDT Respiratory Rate - - Oxygen Saturation 96% 03/06/2017 1:42 PM CDT Inhaled Oxygen - - Concentration Weight 82.6 kg (182 lb) 05/16/2017 3:11 PM GUNITE MIXER Height 175.3 cm (5' 9") 05/16/2017 3:11 PM GUNITE MIXER Body Mass Index 26.88 05/16/2017 3:11 PM GUNITE MIXER Plan of Treatment Health Maintenance Due Date Last Done Comments HEPATITIS C SCREENING 1961 PHYSICAL (COMPREHENSIVE) 1968 EXAM PERTUSSIS VACCINE 1972 HIV SCREENING 1976 TETANUS VACCINE 1978 COLORECTAL CANCER 2011 SCREENING SHINGLES RECOMBINANT 2011 VACCINE (1 of 2) INFLUENZA VACCINE 03/20/2018 Results Not on filefrom Last 3 Months
[2017-12-22] MEDS ORDERED: diphenhydrAMINE 50 MG/ML INJ (BENADRYL) IVP ONE ×2 (19:30→20:15)
[2017-12-22] MEDS ORDERED: NS IV 1000 ML 1,000 ML IV SCH (19:30)
[2017-12-22] MEDS ORDERED: KETOROLAC 30 MG/ML VIAL IVP ONE (19:30)
[2017-12-22] MEDS ORDERED: PROCHLORPERAZINE 10 MG/2ML INJ (COMPAZINE) IV ONE ×2 (19:30→20:15)
--- NOTE | 2017-12-22 19:58 | ED General ---
General Chief Complaint: Head/Cervical Problems Stated Complaint: MIGRANE, POSS PNUEMONIA Nursing Triage Note: Patient advises he has had a migraine since yesterday that has become progressively worse. He advises a hx. of migraines and that the medication he was prescribed during his previous visit he has been unable to get refilled. Patient advises nausea and vomiting rating his headache at a 9/10. Nursing Sepsis Screen: No Definite Risk Source of Information: Patient Exam Limitations: No Limitations History of Present Illness Date Seen by Provider: Dec 22, 2017 Time Seen by Provider: 19:55 Initial Comments tto ER with a global headache since yesterday. Has a history of hemiplegic migraines and commonly presents with right sided weakness. He's not had any right-sided weakness with this headache but he does have an intense headache. He also has a cough and a bit of shortness of breath and is concerned he might have some pneumonia. Timing/Duration: 1-2 Days Severity: Moderate Associated Systoms: Headaches Allergies and Home Medications Allergies Coded Allergies: penicillin G (Verified Allergy, Severe, SWELLING, 12/22/17) Home Medications Alprazolam 0.25 Mg Tablet, 0.25 MG PO BID PRN for ANXIETY, (Reported) Amlodipine Besylate 10 Mg Tablet, 10 MG PO DAILY, (Reported) Aspirin 81 Mg Tablet.dr, 81 MG PO HS, (Reported) Atorvastatin Calcium 10 Mg Tablet, 10 MG PO HS, (Reported) Bupropion HCl 150 Mg Tablet.er, 150 MG PO BID, (Reported) Buspirone HCl 15 Mg Tablet, 15 MG PO TID, (Reported) Carvedilol 6.25 Mg Tablet, 6.25 MG PO BID, (Reported) Cefdinir 300 Mg Capsule, 300 MG PO BID Prescribed by: ELIE PICKETT on 09/29/171851 Clonidine HCl 0.1 Mg Tablet, 0.1 MG PO TID, (Reported) Clopidogrel Bisulfate 75 Mg Tablet, 75 MG PO HS, (Reported) Hydrocodone/Acetaminophen 1 Each Tablet, 1 TAB PO BID PRN for PAIN-MODERATE, ( Reported) Losartan Potassium 100 Mg Tablet, 100 MG PO HS, (Reported) Magnesium Oxide 400 Mg Capsule, 400 MG PO BID Prescribed by: ELIE PICKETT on 09/29/171853 Nitroglycerin 0.4 Mg Tab.subl, 0.4 MG SL UD PRN for CHEST PAIN, (Reported) PLACE 1 TAB UNDER TONGUE NEEDED FOR CHEST PAIN; IF PAIN REMAINS AFTER 5 MINUTES, CALL 911 [place]-3 Fatty Acids/Fish Oil 1 Each Capsule, 1,000 MG PO BID, (Reported) Ranolazine 500 Mg Tab.er.12h, 500 MG PO BID, (Reported) Red Yeast Rice 600 Mg Capsule, 3 CAP PO HS, (Reported) Sertraline HCl 100 Mg Tablet, 100 MG PO DAILY, (Reported) Sertraline HCl 25 Mg Tablet, 25 MG PO DAILY, (Reported) TAKES ALONG WITH 100MG TABLET Tamsulosin HCl 0.4 Mg Cap.er.24h, 0.4 MG PO 1800, (Reported) Patient Home Medication List Home Medication List Reviewed: Yes Review of Systems Constitutional: see HPI; No chills, No fever EENTM: see HPI Respiratory: see HPI, cough Cardiovascular: no symptoms reported Genitourinary: no symptoms reported Musculoskeletal: no symptoms reported Skin: no symptoms reported Psychiatric/Neurological: No Symptoms Reported Past Jgshcoo-Wjkrbr-Ixtstd Hx Patient Social History Alcohol Use: Occasionally Uses Number of Drinks Today: AA Alcohol Beverage of Choice: Beer Recreational Drug Use: No Smoking Status: Former Smoker Type Used: Cigarettes Former Smoker, Quit: October 24, 2016 2nd Hand Smoke Exposure: Yes Recent Foreign Travel: No Contact w/Someone Who Travel: No Recent Infectious Disease Expo: No Recent Hopitalizations: Yes (CATH ET STENT ON 07/28/17 ET BALLOON) Physical Abuse: No Sexual Abuse: No Immunizations Up To Date Tetanus Booster (TDap): Less than 5yrs PED Vaccines UTD: No Date of Influenza Vaccine: Jul 28, 2017 Seasonal Allergies Seasonal Allergies: No Past Medical History Surgeries: Yes (hernia) Abdominal, Coronary Stent, Orthopedic Respiratory: No Currently Using CPAP: No Currently Using BIPAP: No Cardiac: Yes (BALLOON ON 07/28/17 ET STENT) Coronary Artery Disease, Deep Vein Thrombosis, Heart Attack, High Cholesterol, Hypertension Neurological: Yes Headaches /Migraines, TIA Reproductive Disorders: No Sexually Transmitted Disease: No Genitourinary: Yes (recurrent urinary tract infections) Prostate Problems, UTI-Chronic Gastrointestinal: Yes Gastroesophageal Reflux, Hiatal Hernia, Ulcer Musculoskeletal: Yes Arthritis, Rheumatoid Arthritis, Back Injury, Chronic Back Pain, Fractures Endocrine: No HEENT: No Eye Injury Loss of Vision: Denies Hearing Impairment: Denies Cancer: No Psychosocial: Yes Anxiety, Depression Nursing Suicide Risk Score: 0 Integumentary: No Blood Disorders: No Adverse Reaction/Blood Tranf: No Family Medical History Arthritis 19 MOTHER BIT SHARPENER G8 SISTER FH: COPD (chronic obstructive pulmonary disease) Hypercholesterolemia 19 MOTHER Hypertension 19 MOTHER Heart Disease, Hypertension Physical Exam Vital Signs Vital Signs - First Documented 12/22/17 19:24 Temp 98.4 Pulse 76 Resp 14 B/P (MAP) 168/96 (120) Pulse Ox 97 O2 Delivery Room Air Capillary Refill : Less Than 3 Seconds General Appearance: No Apparent Distress, WD/WN Eyes: Bilateral Eye Normal Inspection, Bilateral Eye PERRL, Bilateral Eye EOMI HEENT: PERRL/EOMI, TMs Normal Neck: Full Range of Motion, Normal Inspection Respiratory: No Accessory Muscle Use, No Respiratory Distress, Other (crackles in the left base) Cardiovascular: Regular Rate, Rhythm, Normal Peripheral Pulses Gastrointestinal: Normal Bowel Sounds, Non Tender, Soft Neurologic/Psychiatric: Alert, Oriented x3, No Motor/Sensory Deficits (moves all extremities) Skin: Normal Color, Warm/Dry Progress/Results/Core Measures Suspected Sepsis Recent Fever Within 48 Hours: No Infection Criteria Present: None New/Unexplained Altered Menta: No Sepsis Screen: No Definite Risk SIRS Temperature:98.4 Pulse: 76 Respiratory Rate: 14 Blood Pressure 168 /96 Mean: 120 Results/Orders My Orders Orders - VLAD AVELAR APRN Iv Heplock-Insert (Order) (12/22/17 19:29) Ketorolac Injection (Toradol Injection) (12/22/17 19:30) Prochlorperazine Injection (Compazine In (12/22/17 19:30) Diphenhydramine Injection (Benadryl Inje (12/22/17 19:30) Ns Iv 1000 Ml (Sodium Chloride 0.9%) (12/22/17 19:30) Chest Pa/Lat (2 View) (12/22/17 19:37) Diphenhydramine Injection (Benadryl Inje (12/22/17 20:15) Prochlorperazine Injection (Compazine In (12/22/17 20:15) Magnesium 1 Gm/100 Ml Ivpb (Magnesium Tejeda (12/22/17 21:00) Medications Given in ED Current Medications Medications Dose Ordered Sig/Mckenzie Route Start Time Stop Time Status Last Admin Dose Admin Diphenhydramine HCl 25 mg ONCE ONCE IVP 12/22/17 19:30 12/22/17 19:31 DC 12/22/17 19:35 25 MG Diphenhydramine HCl 25 mg ONCE ONCE IVP 12/22/17 20:15 12/22/17 20:16 DC 12/22/17 20:17 25 MG Ketorolac Tromethamine 30 mg ONCE ONCE IVP 12/22/17 19:30 12/22/17 19:31 DC 12/22/17 19:36 30 MG Magnesium Sulfate/ Dextrose 100 ml @ 300 mls/hr ONCE ONCE IV 12/22/17 21:00 12/22/17 21:19 DC 12/22/17 20:58 300 MLS/HR Prochlorperazine Edisylate 5 mg ONCE ONCE IV 12/22/17 19:30 12/22/17 19:31 DC 12/22/17 19:35 5 MG Prochlorperazine Edisylate 5 mg ONCE ONCE IV 12/22/17 20:15 12/22/17 20:16 DC 12/22/17 20:17 5 MG Vital Signs/I&O 12/22/17 12/22/17 19:24 21:24 Temp 98.4 Pulse 76 67 Resp 14 14 B/P (MAP) 168/96 (120) 137/89 Pulse Ox 97 98 O2 Delivery Room Air Room Air Capillary Refill : Less Than 3 Seconds Blood Pressure Mean: 120 Diagnostic Imaging Diagonstic Imaging: Xray Plain Films/CT/US/NM/MRI: chest Comments NAME: EZEQUIEL VITALE [facility] REC#: [id number] PT STATUS: REG ER : 1960 PHYSICIAN: VLAD AVELAR APRN ADMIT DATE: 12/22/17/ER Signed Date of Exam:12/22/17 CHEST PA/LAT (2 VIEW) CHEST PA/LAT (2 VIEW) Indication: Chest pain Comparison: 12/14/2017 Findings: No focal pneumonic consolidation, pleural effusion or pneumothorax. Normal heart size and pulmonary vasculature. Impression: No acute cardiopulmonary process. Dictated by: Dictated on workstation # [id number] Dict: 12/22/172015 Trans: 12/22/17 2016 [facility] [id number] Interpreted by: MARLON SAEZ MD Electronically signed by: MARLON SAEZ MD 12/22/172015 Departure Communication (Admissions) 2048- patient denies any improvement whatsoever after 30 of Toradol, 50 of Benadryl, 10 of Compazine and a bag of fluids. he still rates his pain a 9 out of 10. He is talking on a cell phone when I to the room. He states "usually they have to give me that fentanyl or morphine" I advised him it is ill-advised for migraine headaches.We'll try a bag of magnesium as that has been given to him in the past. 2119-pt has now also received 1g magnesium sulfate over 20 minutes. His headache is now a 3/10. Impression Primary Impression: Headache Disposition: 01 HOME, SELF-CARE Condition: Stable Departure-Patient Inst. Decision time for Depature: 19:57 Referrals: ANDRES RABAGO DO (PCP/Family) Primary Care Physician Patient Instructions: Headache, Adult (DC) Add. Discharge Instructions: 1. Return to ER for any concerns 2. Follow-up with her doctor later next week.All discharge instructions reviewed with patient and/or family. Voiced understanding. VLAD AVELAR [employer] SUPERVISOR Dec 22, 2017 19:58
--- NOTE | 2017-12-22 20:19 | Diagnostic Imaging Report ---
CHEST PA/LAT (2 VIEW) Indication: Chest pain Comparison: 12/14/2017 Findings: No focal pneumonic consolidation, pleural effusion or pneumothorax. Normal heart size and pulmonary vasculature. Impression: No acute cardiopulmonary process. Dictated by: Dictated on workstation # [id number]
[2017-12-22] MEDS ORDERED: MAGNESIUM 1 GM/100 ML IVPB 100 ML IV ONE (21:00)
[2017-12-22 21:24] VITALS: BP 137/89
== END 2017-12-22 21:25 | disposition home or self-care (01) ==
LOC: EDUNIT# 19:06 → ER 19:07
DX: R51 Headache (principal); I25.10 Atherosclerotic heart disease of native coronary artery without angina pectoris; I25.2 Old myocardial infarction; E78.00 Pure hypercholesterolemia, unspecified; I10 Essential (primary) hypertension; F41.9 Anxiety disorder, unspecified; F32.9 Major depressive disorder, single episode, unspecified; Z87.81 Personal history of (healed) traumatic fracture; Z86.73 Personal history of transient ischemic attack (TIA), and cerebral infarction without residual deficits; Z87.891 Personal history of nicotine dependence; Z86.718 Personal history of other venous thrombosis and embolism; Z95.5 Presence of coronary angioplasty implant and graft; Z87.442 Personal history of urinary calculi; Z79.82 Long term (current) use of aspirin; Z88.0 Allergy status to penicillin
CPT/HCPCS: 71046; 96361; 96365; 96375; 96376

== ENCOUNTER → 2017-12-27 | Outpatient (CLI) | payer OTHER ==
[2017-12-27 12:56] LABS: BASOPHILS % (AUTO) 0 % (0-10); EOSINOPHILS # (AUTO) 0.2 10^3/uL (0.0-0.3); EOSINOPHILS % (AUTO) 4 % (0-10); HEMATOCRIT 33 % (40-54); HEMOGLOBIN 10.3 G/DL (13.3-17.7); LYMPHOCYTES # (AUTO) 1.4 X 10^3 (1.0-4.0); LYMPHOCYTES % (AUTO) 21 % (12-44); MEAN CORPUSCULAR HEMOGLOBIN 25 PG (25-34); MEAN CORPUSCULAR HGB CONC 32 G/DL (32-36); MEAN CORPUSCULAR VOLUME 79 FL (80-99); MEAN PLATELET VOLUME 9.7 FL (7.4-10.4); MONOCYTES # (AUTO) 0.4 X 10^3 (0.0-1.0); MONOCYTES % (AUTO) 6 % (0-12); NEUTROPHILS # (AUTO) 4.5 X 10^3 (1.8-7.8); NEUTROPHILS % (AUTO) 69 % (42-75); PLATELET COUNT 282 10^3/uL (130-400); RED BLOOD COUNT 4.12 10^6/uL (4.35-5.85); RED CELL DISTRIBUTION WIDTH 16.9 % (10.0-14.5); WHITE BLOOD COUNT 6.5 10^3/uL (4.3-11.0)
== END ==
LOC: LAB 12:37
PROVIDERS: ATTEND Family Medicine
DX: R39.198 Other difficulties with micturition (principal); R04.2 Hemoptysis; Z79.01 Long term (current) use of anticoagulants
CPT/HCPCS: 36415; 84153; 85025

== ENCOUNTER → 2018-01-11 | Outpatient (CLI) | payer OTHER ==
--- NOTE | 2018-01-11 14:00 | Diagnostic Imaging Report ---
EXAMINATION: Abdomen at 11:31 a.m. INDICATION: Abdominal pain. Two supine views were obtained. COMPARISON: There are no prior abdomen studies available for comparison. FINDINGS: There is gas in both the large and small bowel in a nonspecific fashion. There is no evidence for a bowel obstruction. There does appear to be a fair amount of fecal material within the ascending and transverse colon. There is no mass, organomegaly, or pathological calcification evident. There are a few phleboliths low in the pelvis. These seem similar to the pelvis exam of 10/26/2016. The osseous structures are intact. IMPRESSION: The bowel gas pattern is nonspecific. There is no acute abnormality evident. Dictated by: Dictated on workstation # [id number]
== END ==
LOC: RAD 10:55
PROVIDERS: ATTEND Family Medicine
DX: K59.00 Constipation, unspecified (principal)
CPT/HCPCS: 74018

== ENCOUNTER 2018-02-15 11:05 | Outpatient (RCR) | payer OTHER ==
[~2018-02-15 11:05] MED LIST changes: -AMLO10TA2 PO; +AMLO10TA6 PO; -LOSA100T28 PO; +LOSA100T8 PO; -LOSA50TA36 PO; +LOSA50TA7 PO; -OXYC-197 PO; +OXYC1TAB87 PO
== END 2018-02-21 | disposition home or self-care (01) ==
LOC: CR 11:05
PROVIDERS: ATTEND Internal Medicine Cardiovascular Disease
DX: I20.8 Other forms of angina pectoris (principal)
CPT/HCPCS: 93798

== ENCOUNTER 2018-03-13 09:23 | Outpatient (RCR) | payer OTHER ==
[2018-03-14] MEDS ORDERED: ACHD5005 PO (14:42)
[2018-03-14] MEDS ORDERED: ONDA4TAB11 PO (14:42)
== END 2018-03-19 | disposition home or self-care (01) ==
LOC: CR 09:23
PROVIDERS: ATTEND Internal Medicine Cardiovascular Disease
DX: I20.8 Other forms of angina pectoris (principal)
CPT/HCPCS: 93798

== ENCOUNTER 2018-03-14 11:41 | Emergency (ER) | payer OTHER ==
[~2018-03-14] VITALS: Ht 175.3 cm; Wt 87.1 kg
--- OUTSIDE RECORDS SUMMARY | 2018-03-14 11:46 | XMS REPORT | Clinical Summary ---
Author Author [facility] Organization [facility] Address Unknown Phone Unavailable Care Team Providers Care Hop Separator Name Role Phone Leroy Lao MD [address] Hernandes DO PCP Source Comments Some departments are not documenting in the electronic medical record. If you do not see the information that you expected, contact Release of Information in the Health Information Management department at [phone] for further assistance in locating additional records.[facility] Allergies Active Allergy Reactions Severity Noted Date [...] for Chest Pain. Max of 3 of upper [place] artery of tablets, call 911. [place] heart with stable angina pectoris (HCC), Essential [...] 01/14/2017 Dysphagia 01/14/2017 GERI (acute kidney injury) ([facility]) 01/13/2017 Unstable angina ([facility]) 08/13/2016 Coronary artery disease of [place] artery of [place] heart with stable angina 08/09/2016 pectoris ([facility]) Overview: 07/29/16: heart cath ([place], [place]) - total occlusion of the right [...] Taken Blood Pressure 150/72 05/16/2017 3:11 PM CARPET JOURNEYMAN Pulse 73 05/16/2017 3:11 PM CARPET JOURNEYMAN Temperature 36.8 C (98.2 F) 03/06/2017 1:42 PM CDT Respiratory Rate - - Oxygen Saturation 96% 03/06/2017 1:42 PM CDT Inhaled Oxygen - - Concentration Weight 82.6 kg (182 lb) 05/16/2017 3:11 PM [employer]PET JOURNEYMAN Height 175.3 cm (5' 9") 05/16/2017 3:11 PM CARPET JOURNEYMAN Body Mass Index 26.88 05/16/2017 3:11 PM CARPET JOURNEYMAN Plan of Treatment Health Maintenance Due Date Last Done Comments HEPATITIS C SCREENING 1960 PHYSICAL (COMPREHENSIVE) 1968 EXAM PERTUSSIS VACCINE 1972 HIV SCREENING 1976 TETANUS VACCINE 1978 COLORECTAL CANCER 2011 SCREENING SHINGLES RECOMBINANT 2011 VACCINE (1 of 2) INFLUENZA VACCINE 03/20/2018 Results Not on filefrom Last 3 Months
[2018-03-14] MEDS ORDERED: NS IV 1000 ML 1,000 ML IV SCH (11:57)
[2018-03-14] MEDS ORDERED: ONDANSETRON 4 MG/2 ML (SDV) Z0FRAN IVP ONE (12:00)
[2018-03-14] MEDS ORDERED: KETOROLAC 30 MG/ML VIAL IVP ONE (12:00)
--- NOTE | 2018-03-14 12:00 | ED Abdominal Pain ---
General Chief Complaint: Abdominal/GI Problems Stated Complaint: HERNIA Source of Information: Patient Exam Limitations: No Limitations History of Present Illness Date Seen by Provider: Mar 14, 2018 Time Seen by Provider: 11:52 Initial Comments The patient presents to ER by private conveyance with chief complaint that he is presenting from Dr. Rabago's office where he was seen for right inguinal pain. He says he's had a bulge/hernia in his right inguinal him for the past 2- 3 years but does not started hurting until yesterday. Today started having some nausea worsening pain 9 out of 10 in his right inguinal and inability to pass a bowel movement. He had a bowel movement was normal formed yesterday. No problems urinating no fevers chills cough shortness of breath or chest pain. He does have a history of coronary artery disease and is still on aspirin. He is followed by Dr. Lao. Stents are present. He has not taken anything for the pain today. Surgically he had a umbilical hernia repaired as a child and nothing else. Patient remarks she also has a stage III prostate cancer and is following up this week to find out what their plan to treat it is. Allergies and Home Medications Allergies Coded Allergies: penicillin G (Verified Allergy, Severe, SWELLING, 12/22/17) Home Medications Alprazolam 0.25 Mg Tablet, 0.25 MG PO BID PRN for ANXIETY, (Reported) Amlodipine Besylate 10 Mg Tablet, 10 MG PO DAILY, (Reported) Aspirin 81 Mg Tablet.dr, 81 MG PO HS, (Reported) Atorvastatin Calcium 10 Mg Tablet, 10 MG PO HS, (Reported) Bupropion HCl 150 Mg Tablet.er, 150 MG PO BID, (Reported) Buspirone HCl 15 Mg Tablet, 15 MG PO TID, (Reported) Carvedilol 6.25 Mg Tablet, 6.25 MG PO BID, (Reported) Cefdinir 300 Mg Capsule, 300 MG PO BID Prescribed by: ELIE PICKETT on 09/29/171851 Clonidine HCl 0.1 Mg Tablet, 0.1 MG PO TID, (Reported) Clopidogrel Bisulfate 75 Mg Tablet, 75 MG PO HS, (Reported) Hydrocodone/Acetaminophen 1 Each Tablet, 1 TAB PO BID PRN for PAIN-MODERATE, ( Reported) Losartan Potassium 100 Mg Tablet, 100 MG PO HS, (Reported) Magnesium Oxide 400 Mg Capsule, 400 MG PO BID Prescribed by: ELIE PICKETT on 09/29/17 1854 Nitroglycerin 0.4 Mg Tab.subl, 0.4 MG SL UD PRN for CHEST PAIN, (Reported) PLACE 1 TAB UNDER TONGUE NEEDED FOR CHEST PAIN; IF PAIN REMAINS AFTER 5 MINUTES, CALL 911 [place]-3 Fatty Acids/Fish Oil 1 Each Capsule, 1,000 MG PO BID, (Reported) Ranolazine 500 Mg Tab.er.12h, 500 MG PO BID, (Reported) Red Yeast Rice 600 Mg Capsule, 3 CAP PO HS, (Reported) Sertraline HCl 100 Mg Tablet, 100 MG PO DAILY, (Reported) Sertraline HCl 25 Mg Tablet, 25 MG PO DAILY, (Reported) TAKES ALONG WITH 100MG TABLET Tamsulosin HCl 0.4 Mg Cap.er.24h, 0.4 MG PO 1800, (Reported) Patient Home Medication List Home Medication List Reviewed: Yes Review of Systems Review of Systems Constitutional: No chills, No diaphoresis, No fever EENTM: No Blurred Vision, No Double Vision Respiratory: Denies Cough, Denies Shortness of Air Cardiovascular: Denies Chest Pain, Denies Irregular Heart Rate Gastrointestinal: See HPI; Denies Abdomen Distended; Abdominal Pain, Constipated; Denies Diarrhea, Denies Nausea Genitourinary: Denies Burning, Denies Discharge Musculoskeletal: No back pain, No joint pain Skin: No pruritus, No rash Psychiatric/Neurological: Denies Headache, Denies Numbness, Denies Paresthesia Past Gdyhzmc-Rudfcv-Wjxmif Hx Patient Social History Alcohol Use: Denies Use Number of Drinks Today: AA Alcohol Beverage of Choice: Beer Recreational Drug Use: No Smoking Status: Former Smoker Type Used: Cigarettes Former Smoker, Quit: October 24, 2016 2nd Hand Smoke Exposure: Yes Recent Hopitalizations: Yes (CATH ET STENT ON 07/28/17 ET BALLOON) Physical Abuse: No Sexual Abuse: No Mistreated: No Immunizations Up To Date Tetanus Booster (TDap): Less than 5yrs PED Vaccines UTD: No Date of Influenza Vaccine: Jul 28, 2017 Seasonal Allergies Seasonal Allergies: No Past Medical History Surgeries: Yes (hernia) Abdominal, Coronary Stent, Orthopedic Respiratory: No Currently Using CPAP: No Currently Using BIPAP: No Cardiac: Yes (BALLOON ON 07/28/17 ET STENT) Coronary Artery Disease, Deep Vein Thrombosis, Heart Attack, High Cholesterol, Hypertension Neurological: Yes (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) Headaches /Migraines, TIA Reproductive Disorders: No Sexually Transmitted Disease: No Genitourinary: Yes (recurrent urinary tract infections, prostate ca) Prostate Problems, UTI-Chronic Gastrointestinal: Yes Gastroesophageal Reflux, Hiatal Hernia, Ulcer Musculoskeletal: Yes Arthritis, Rheumatoid Arthritis, Back Injury, Chronic Back Pain, Fractures Endocrine: No HEENT: No Eye Injury Loss of Vision: Denies Hearing Impairment: Denies Cancer: No Rectal Psychosocial: Yes Anxiety, Depression Integumentary: No Blood Disorders: No Adverse Reaction/Blood Tranf: No Family Medical History Arthritis 19 MOTHER YELLOW PAGES SPACE SALESPERSON G8 SISTER FH: COPD (chronic obstructive pulmonary disease) Hypercholesterolemia 19 MOTHER Hypertension 19 MOTHER Heart Disease, Hypertension Physical Exam Vital Signs Vital Signs - First Documented 03/14/18 11:53 Temp 97.2 Pulse 62 Resp 20 B/P (MAP) 165/95 (118) Pulse Ox 98 Capillary Refill : Height/Weight/BMI Height: 5'9.00" Weight: 184lbs. 0.0oz. 83.539491sa; 27.8 BMI Method:Stated General Appearance: WD/WN, no apparent distress HEENT: PERRL/EOMI, pharynx normal Respiratory: no respiratory distress, no accessory muscle use Cardiovascular: normal peripheral pulses, regular rate, rhythm Gastrointestinal: normal bowel sounds, non tender, other (and right inguinal canal has palpable nonreducible soft mass consistent with intra-abdominal content) Extremities: normal range of motion, normal capillary refill Neurologic/Psychiatric: alert, oriented x 3 Skin: normal color, warm/dry Focused Exam Lactate Level 03/14/18 12:20: Lactic Acid Level 1.22 Lactic Acid Level Laboratory Tests Test 03/14/18 12:20 Lactic Acid Level 1.22 MMOL/L (0.50-2.00) Progress/Results/Core Measures Results/Orders Lab Results Laboratory Tests Test 03/14/18 12:20 Range/Units White Blood Count 3.9 L 4.3-11.0 10^3/uL Red Blood Count 4.50 4.35-5.85 10^6/uL Hemoglobin 10.5 L 13.3-17.7 G/DL Hematocrit 34 L 40-54 % Mean Corpuscular Volume 75 L 80-99 FL Mean Corpuscular Hemoglobin 23 L 25-34 PG Mean Corpuscular Hemoglobin Concent 31 L 32-36 G/DL Red Cell Distribution Width 16.1 H 10.0-14.5 % Platelet Count 338 130-400 10^3/uL Mean Platelet Volume 9.5 7.4-10.4 FL Neutrophils (%) (Auto) 48 42-75 % Lymphocytes (%) (Auto) 33 12-44 % Monocytes (%) (Auto) 13 H 0-12 % Eosinophils (%) (Auto) 6 0-10 % Basophils (%) (Auto) 1 0-10 % Neutrophils # (Auto) 1.9 1.8-7.8 X 10^3 Lymphocytes # (Auto) 1.3 1.0-4.0 X 10^3 Monocytes # (Auto) 0.5 0.0-1.0 X 10^3 Eosinophils # (Auto) 0.2 0.0-0.3 10^3/uL Basophils # (Auto) 0.0 0.0-0.1 10^3/uL Sodium Level 139 135-145 MMOL/L Potassium Level 4.3 3.6-5.0 MMOL/L Chloride Level 105 98-107 MMOL/L Carbon Dioxide Level 25 21-32 MMOL/L Anion Gap 9 5-14 MMOL/L Blood Urea Nitrogen 18 7-18 MG/DL Creatinine 1.46 H 0.60-1.30 MG/DL Estimat Glomerular Filtration Rate 50 BUN/Creatinine Ratio 12 Glucose Level 88 70-105 MG/DL Lactic Acid Level 1.22 0.50-2.00 MMOL/L Calcium Level 9.5 8.5-10.1 MG/DL Corrected Calcium 9.1 8.5-10.1 MG/DL Total Bilirubin 0.3 0.1-1.0 MG/DL Aspartate Amino Transf (AST/SGOT) 18 5-34 U/L Alanine Aminotransferase (ALT/SGPT) 15 0-55 U/L Alkaline Phosphatase 129 40-136 U/L Total Protein 8.1 6.4-8.2 GM/DL Albumin 4.5 3.2-4.5 GM/DL My Orders Orders - ANGUS RUBALCAVA Ct Abdomen/Pelvis W (03/14/18 11:57) Saline Lock/Iv-Start (03/14/18 11:57) Cbc With Automated Diff (03/14/18 11:57) Comprehensive Metabolic Panel (03/14/18 11:57) Lactic Acid Analyzer (03/14/18 11:57) Saline Lock/Iv-Start (03/14/18 11:57) Ns Iv 1000 Ml (Sodium Chloride 0.9%) (03/14/18 11:57) Ketorolac Injection (Toradol Injection) (03/14/18 12:00) Ondansetron Injection (Zofran Injectio (03/14/18 12:00) Iohexol Injection (Omnipaque 350 Mg/Ml 1 (03/14/18 12:15) Ns (Ivpb) (Sodium Chloride 0.9%) (03/14/18 12:15) Contrast Received (Contrast Received) (03/14/18 12:15) Fentanyl Injection (Sublimaze Injection (03/14/18 13:45) Medications Given in ED Current Medications Medications Dose Ordered Sig/Mckenzie Route Start Time Stop Time Status Last Admin Dose Admin Fentanyl Citrate 50 mcg ONCE ONCE IVP 03/14/18 13:45 03/14/18 13:46 DC 03/14/18 14:03 50 MCG Iohexol 100 ml ONCE ONCE IV 03/14/18 12:15 03/14/18 12:16 DC 03/14/18 12:47 100 ML Ketorolac Tromethamine 15 mg ONCE ONCE IVP 03/14/18 12:00 03/14/18 12:01 DC 03/14/18 12:34 15 MG Ondansetron HCl 4 mg ONCE ONCE IVP 03/14/18 12:00 03/14/18 12:01 DC 03/14/18 12:34 4 MG Sodium Chloride 250 ml ONCE ONCE IV 03/14/18 12:15 03/14/18 12:16 DC 03/14/18 12:47 250 ML Vital Signs/I&O 03/14/18 11:53 Temp 97.2 Pulse 62 Resp 20 B/P (MAP) 165/95 (118) Pulse Ox 98 Progress Progress Note #1: Time: 13:14 Progress Note Concern for a strangulated right inguinal hernia. We'll get a CT some basic labs and then reexamine the patient. We'll start with Toradol and have informed him if he needs more would be willing to help him out. At this point is not asked for anything else for pain. Progress Note #2: Time: 14:38 Progress Note Pain is under much better control with a shot of fentanyl. We'll try and get him to follow up outpatient with general surgery with some hydrocodone and ondansetron. Diagnostic Imaging Diagonstic Imaging: CT (with) Plain Films/CT/US/NM/MRI: abdomen, pelvis Reviewed: Reviewed by Me Departure Impression Primary Impression: Bilateral inguinal hernia, without obstruction or gangrene, not specified as recurrent Qualified Codes: K40.20 - Bilateral inguinal hernia, without obstruction or gangrene, not specified as recurrent Disposition: 01 HOME, SELF-CARE Condition: Improved Departure-Patient Inst. Decision time for Depature: 14:39 Referrals: ANDRES RABAGO DO (PCP) Primary Care Physician MERLIN BISWAS DO Patient Instructions: Abdominal Hernia (DC) Add. Discharge Instructions: Drink lots of fluids and eat a high-fiber diet. Use laxatives such as MiraLAX or Dulcolax if you're going to be using the opiates hydrocodone for pain every 6 hours. Use the Zofran or Phenergan as prescribed for nausea or vomiting. Call Dr. Biswas's clinic this afternoon and request an appointment for inguinal hernia repair consultation. All discharge instructions reviewed with patient and/or family. Voiced understanding. Scripts Ondansetron (Ondansetron Odt) 4 Mg Tab.rapdis 4 MG PO Q6H PRN for NAUSEA/VOMITING, #8 TAB 0 Refills Prov: ANGUS RUBALCAVA 03/14/18 Hydrocodone Bit/Acetaminophen (Hydrocodone/Acetaminophen 5/325mg Tablet) 1 Tab Tab 1 EACH PO Q4-6HR PRN for PAIN-MODERATE MDD 10 for 7 Days, #16 TAB 0 Refills Prov: ANGUS RUBALCAVA 03/14/18 Copy Copies To 1: MERLIN BISWAS DO ANGUS RUBALCAVA Mar 14, 2018 12:00
[2018-03-14] MEDS ORDERED: NS 250 ML (IVPB) BAG IV ONE (12:15)
[2018-03-14] MEDS ORDERED: RECEIVED CONTRAST (Hold Metformin) IV SCH (12:15)
[2018-03-14] MEDS ORDERED: IOHEXOL 350 MG/ML 100 ML (OMNIPAQUE 350) VIAL IV ONE (12:15)
[2018-03-14 12:43] LABS: BASOPHILS % (AUTO) 1 % (0-10); EOSINOPHILS # (AUTO) 0.2 10^3/uL (0.0-0.3); EOSINOPHILS % (AUTO) 6 % (0-10); HEMATOCRIT 34 % (40-54); HEMOGLOBIN 10.5 G/DL (13.3-17.7); LYMPHOCYTES # (AUTO) 1.3 X 10^3 (1.0-4.0); LYMPHOCYTES % (AUTO) 33 % (12-44); MEAN CORPUSCULAR HEMOGLOBIN 23 PG (25-34); MEAN CORPUSCULAR HGB CONC 31 G/DL (32-36); MEAN CORPUSCULAR VOLUME 75 FL (80-99); MEAN PLATELET VOLUME 9.5 FL (7.4-10.4); MONOCYTES # (AUTO) 0.5 X 10^3 (0.0-1.0); MONOCYTES % (AUTO) 13 % (0-12); NEUTROPHILS # (AUTO) 1.9 X 10^3 (1.8-7.8); NEUTROPHILS % (AUTO) 48 % (42-75); PLATELET COUNT 338 10^3/uL (130-400); RED CELL DISTRIBUTION WIDTH 16.1 % (10.0-14.5); WHITE BLOOD COUNT 3.9 10^3/uL (4.3-11.0)
[2018-03-14 12:59] LABS: ALBUMIN 4.5 GM/DL (3.2-4.5); BILIRUBIN,TOTAL 0.3 MG/DL (0.1-1.0); CALCIUM 9.5 MG/DL (8.5-10.1); CREATININE SERUM 1.46 MG/DL (0.60-1.30); POTASSIUM 4.3 MMOL/L (3.6-5.0); TOTAL PROTEIN 8.1 GM/DL (6.4-8.2)
--- NOTE | 2018-03-14 13:13 | Diagnostic Imaging Report ---
PROCEDURE: CT abdomen and pelvis with contrast. TECHNIQUE: Multiple contiguous axial images were obtained through the abdomen and pelvis after administration of intravenous contrast. INDICATION: Abdominal pain. Inguinal hernia. COMPARISON: CT abdomen and pelvis of 02/09/2018. FINDINGS: Lower chest: The lung bases are clear. No pericardial or pleural effusion. Peritoneum: No free intraperitoneal air or fluid. Liver and biliary system: The liver is normal. The gallbladder is normal. No biliary duct dilation. Spleen and Pancreas: Spleen is normal. The pancreas enhances normally without mass lesion or peripancreatic inflammatory changes. Adrenals: Normal. tract: The kidneys enhance normally without suspicious mass or obstruction. There are a few punctate nonobstructing bilateral renal stones. There is also a 10 mm partially obstructing stone in the proximal right ureter which is unchanged since 02/09/2018. Urinary bladder is distended without wall thickening. Prostate is not enlarged. GI tract: Stomach is decompressed. No bowel obstruction. No pericolonic inflammatory changes. Appendix contains an appendicolith but is otherwise normal. Vasculature and Lymph nodes: Normal caliber aorta with moderate atherosclerotic plaquing. No abdominal or pelvic lymphadenopathy. Musculoskeletal: No concerning osseous lesion. Fat-containing bilateral inguinal hernias are indirect. The larger is on the right. There are no bowel loops or fluid within the hernia sacs. IMPRESSION: 1. Fat-containing indirect right inguinal hernia is unchanged since prior exam. There is no fluid within the hernia sac or bowel loops. 2. Unchanged partially obstructing proximal right ureteral stone measuring 10 mm. Dictated by: Dictated on workstation # [id number]
[2018-03-14] MEDS ORDERED: fentaNYL INJECTION 100 MCG/2 ML AMP IVP ONE (13:45)
[2018-03-14] MEDS ORDERED: ACHD5005 PO (14:42)
[2018-03-14] MEDS ORDERED: ONDA4TAB11 PO (14:42)
[2018-03-14 14:52] VITALS: BP 123/78
== END 2018-03-14 14:52 | disposition home or self-care (01) ==
LOC: EDUNIT# 11:41 → ER 11:42
DX: K40.20 Bilateral inguinal hernia, without obstruction or gangrene, not specified as recurrent (principal); I25.10 Atherosclerotic heart disease of native coronary artery without angina pectoris; C61 Malignant neoplasm of prostate; I25.2 Old myocardial infarction; E78.00 Pure hypercholesterolemia, unspecified; G43.809 Other migraine, not intractable, without status migrainosus; K21.9 Gastro-esophageal reflux disease without esophagitis; M06.9 Rheumatoid arthritis, unspecified; F41.9 Anxiety disorder, unspecified; F32.9 Major depressive disorder, single episode, unspecified; I10 Essential (primary) hypertension; Z86.718 Personal history of other venous thrombosis and embolism; Z87.891 Personal history of nicotine dependence; Z85.048 Personal history of other malignant neoplasm of rectum, rectosigmoid junction, and anus; Z82.49 Family history of ischemic heart disease and other diseases of the circulatory system; Z87.440 Personal history of urinary (tract) infections; Z87.19 Personal history of other diseases of the digestive system; Z86.73 Personal history of transient ischemic attack (TIA), and cerebral infarction without residual deficits; Z95.5 Presence of coronary angioplasty implant and graft; Z88.0 Allergy status to penicillin; Z79.82 Long term (current) use of aspirin; Z79.02 Long term (current) use of antithrombotics/antiplatelets
CPT/HCPCS: 36415; 74177; 80053; 83605; 85025; 96374; 96375

== ENCOUNTER 2018-03-15 09:58 | Outpatient (RCR) | payer OTHER ==
[~2018-03-15 09:58] MED LIST changes: +ACHD5005 PO; +ONDA4TAB11 PO
== END 2018-03-19 | disposition home or self-care (01) ==
LOC: ONC 09:58
PROVIDERS: ATTEND Radiology Radiation Oncology
DX: C61 Malignant neoplasm of prostate (principal)
CPT/HCPCS: 99204

== ENCOUNTER 2018-03-29 09:03 | Outpatient (CLI) | payer OTHER ==
[~2018-03-29] VITALS: Ht 175.3 cm; Wt 88.5 kg
[2018-03-29 09:08] VITALS: BP 144/93
[2018-03-29] MEDS ORDERED: HYDR-3812 PO (09:29)
== END 2018-03-29 09:27 | disposition home or self-care (01) ==
LOC: PREOP 09:03
PROVIDERS: ATTEND Surgery
DX: Z01.818 Encounter for other preprocedural examination (principal)
CPT/HCPCS: 87081

== ENCOUNTER 2018-03-31 06:00 | Day surgery (SDC) | payer OTHER ==
[~2018-03-31] VITALS: Ht 175.3 cm; Wt 88.5 kg
[~2018-03-31 06:00] MED LIST changes: +HYDR-3812 PO
[2018-03-31 06:15] VITALS: BP 154/96
[2018-03-31] MEDS ORDERED: CLINDAMYCIN 600 MG/50 ML IVPB 50 ML IV ONE ×2 (06:30→06:38)
[2018-03-31] MEDS: LACTATED RINGERS 1,000 ML IV PRN ×2 (06:37→08:33)
[2018-03-31] MEDS ORDERED: DEXAMETHASONE 10 MG/ML (DECADRON) 1 ML VIAL ONE (06:47)
[2018-03-31] MEDS ORDERED: ONDANSETRON 4 MG/2 ML (SDV) Z0FRAN ONE (06:47)
[2018-03-31] MEDS ORDERED: fentaNYL INJECTION 100 MCG/2 ML AMP ONE (06:47)
[2018-03-31] MEDS ORDERED: MIDAZOLAM 2 MG/2 ML (VERSED) VIAL ONE (06:47)
[2018-03-31] MEDS ORDERED: SEVOFLURANE (ULTANE) 15 ML INHAL SOLN ONE ×3 (06:47→08:34)
[2018-03-31] MEDS ORDERED: LIDOCAINE PF 2% 5 ML (XYLOCAINE) VIAL ONE (06:47)
[2018-03-31] MEDS ORDERED: proPOfol 200 MG/20 ML (DIPRIVAN) VIAL IV ONE (06:48)
[2018-03-31] MEDS ORDERED: FAMOTIDINE 20MG/2ML IV (PEPCID) ONE (06:52)
[2018-03-31] MEDS ORDERED: FAMOTIDINE 20MG/2ML IV (PEPCID) IVP ONE (07:00)
[2018-03-31] MEDS ORDERED: BUPIVACAINE 0.5% 30 ML (SENSORCAINE) VIAL ONE (07:09)
[2018-03-31] MEDS ORDERED: LIDOCAINE 1% INJ 20 ML 20 ML VIAL ONE (07:09)
[2018-03-31] MEDS ORDERED: morphine INJ 10 MG/ML 1ML (SYR OR VIAL) IVP ONE (08:00)
[2018-03-31] MEDS ORDERED: ONDANSETRON 4 MG/2 ML (SDV) Z0FRAN IVP PRN (08:00)
--- NOTE | 2018-03-31 08:10 | Progress Note-Pre Operative ---
Pre-Operative Progress Note H&P Reviewed The H&P was reviewed, patient examined and no changes noted. Date Seen by Provider: Mar 31, 2018 Time Seen by Provider: 07:30 Date H&P Reviewed: Mar 31, 2018 Time H&P Reviewed: 07:30 Pre-Operative Diagnosis: right inguinal hernia MERLIN BISWAS DO Mar 31, 2018 08:10
[2018-03-31] MEDS ORDERED: GLYCOPYRROLATE 0.2 MG/ML (ROBINUL) 2 ML VIAL ONE (08:34)
--- NOTE | 2018-03-31 08:49 | Progress Note-Post Operative ---
Post-Operative Progess Note Surgeon (s)/Gold Marker (s) Surgeon MERLIN BISWAS DO Gold Marker: Dr. Bishop Pre-Operative Diagnosis right inguinal hernia Post-Operative Diagnosis same Procedure & Operative Findings Date of Procedure 03/31/18 Procedure Performed/Findings open right inguinal hernia Anesthesia Type gen Estimated Blood Loss Estimated blood loss (mL): min Specimens/Packing Specimens Removed na MERLIN BISWAS DO Mar 31, 2018 08:49
[2018-03-31] MEDS ORDERED: DOCU-143 PO (08:50)
[2018-03-31] MEDS ORDERED: ACHD5005 PO (08:50)
--- NOTE | 2018-03-31 08:55 | Discharge Inst-Simple/Standard ---
Discharge Inst-Standard Discharge Medications New, Converted or Re-Newed RX: RX on Chart Patient Instructions/Follow Up Plan of Care/Instructions/FU: 2-3 weeks Nathan Activity as Tolerated: No Discharge Diet: Regular Diet Other Inst to Patient Follow up Appt: Make appointment for 2-3weeks. Instructions: No lifting greater than 10 pounds. No strenuous activity. May shower in 24 hours, no tub bath or soaking. Use incentive spirometer at home as directed. No Smoking Skin/Wound Care: You have special glue over incisions it will fall off on its own. Symptoms to Report: Appetite Changes, Extremity Discoloration, Numbness/Tingling, Swelling Increased , Bleeding Excessive, Eyesight Changes, Pain Increased, Urine Color Change, Constipation(Persistent), Fever over 101 degree F, Pain/Pressure in chest, Urinating Difficulty, Cough Up/Vomit Blood, Heart Beat Irreg/Pounding, Pain/ Pressure in jaw, Vaginal Bleeding Increase, Cramps in feet or legs, Lightheadedness, Pain/Pressure in shoulder, Diarrhea(Persistent), Memory Changes Suddenly, Questions/Concerns, Weight gain consecutive days, Dizziness/ Fainting, Nausea/Vomiting, Shortness of Breath, Weight gain over 2 pounds If questions or concerns contact your physician Or seek help at emergency department. MERLIN BISWAS DO Mar 31, 2018 08:55
[2018-03-31] MEDS ORDERED: HYDROcodone/APAP 5 MG/325 MG (LORTAB) TAB PO PRN (09:00)
[2018-03-31] MEDS ORDERED: LABETALOL HCL 20 MG/4 ML VIAL ONE (09:25)
[2018-03-31] MEDS ORDERED: LABETALOL HCL 20 MG/4 ML VIAL IV ONE (09:45)
[2018-03-31 10:00] VITALS: BP 148/92
--- NOTE | 2018-03-31 10:14 | Anesthesia-General Post-Op ---
General Patient Condition Mental Status/LOC: Same as Preop Cardiovascular: Satisfactory Nausea/Vomiting: Absent Respiratory: Satisfactory Pain: Controlled Complications: Absent Post Op Complications Complications None Follow Up Care/Instructions Patient Instructions None needed. Anesthesia/Patient Condition Patient Condition Patient is doing well, no complaints, stable vital signs, no apparent adverse anesthesia problems. No complications reported per nursing. D/C home per [facility] [place] [facility] Criteria: Yes TODD INGRAM CRNA Mar 31, 2018 10:14
[2018-03-31 10:30] VITALS: BP 144/88
[2018-03-31 11:00] VITALS: BP 156/93
[2018-03-31 11:10] VITALS: BP 156/93
--- NOTE | 2018-03-31 13:35 | OPERATIVE REPORT ---
DATE OF SERVICE: 03/31/2018 PREOPERATIVE DIAGNOSIS: Right inguinal hernia. POSTOPERATIVE DIAGNOSIS: Right inguinal hernia. PROCEDURE: Open right inguinal hernia. SURGEON: Merlin Evans DO FORGE OPERATOR HELPER: Dr. Bishop, assisted in retraction, dissection and closure. ANESTHESIA: General. ESTIMATED BLOOD LOSS: Minimal. COMPLICATIONS: None. INDICATIONS: The patient is a 74-year-old male with right inguinal hernia. He understands risks and benefits of procedure and wished to proceed with procedure. Consent was signed on the chart. DESCRIPTION OF PROCEDURE: The patient was taken to the operating suite, was prepped and draped in sterile fashion. Surgical pause was performed. Local anesthetic was infiltrated in the right groin. An incision was made in the right lower quadrant. Cautery was used to dissect it down to the external oblique. The external oblique was then opened down through the external ring. The spermatic cord was then dissected around. A Real drain was placed around it. The spermatic cord was then skeletonized noting no indirect defect. There was a large direct defect. The direct defect was then closed using 0 Vicryl in dawjuk-qh-[id number] fashion. The ProGrip mesh was then secured to Junior's ligament in the usual fashion incorporating around the spermatic cord and placing it under the external oblique. The wound was then irrigated with copious amounts of irrigation. Hemostasis had been achieved. The external oblique was then closed using 3-0 Vicryl in a running fashion, recreating the external ring. Subcutaneous tissues were then reapproximated using 3-0 Vicryl. Skin was then closed using 4-0 Monocryl in a subcuticular fashion. The area was then washed and dried. Skin Affix was placed over the incision. The patient tolerated the procedure well without any complications, taken to recovery room in stable condition. Job ID: [id number] DocumentID: [id number] Dictated Date: 03/31/2018 09:11:27 Advocacy Director Date: 03/31/2018 13:34:25 Dictated By: MERLIN EVANS DO
== END 2018-03-31 11:10 | disposition home or self-care (01) ==
LOC: SDC 06:00
PROVIDERS: ATTEND Surgery
DX: K40.90 Unilateral inguinal hernia, without obstruction or gangrene, not specified as recurrent (principal); I25.10 Atherosclerotic heart disease of native coronary artery without angina pectoris; I10 Essential (primary) hypertension; K21.9 Gastro-esophageal reflux disease without esophagitis; K44.9 Diaphragmatic hernia without obstruction or gangrene; G47.9 Sleep disorder, unspecified; Z86.711 Personal history of pulmonary embolism; Z86.718 Personal history of other venous thrombosis and embolism; Z87.891 Personal history of nicotine dependence; Z95.5 Presence of coronary angioplasty implant and graft; Z79.82 Long term (current) use of aspirin; Z79.899 Other long term (current) drug therapy
CPT/HCPCS: 94664

== ENCOUNTER 2018-04-07 10:12 | Emergency (ER) | payer OTHER ==
[~2018-04-07] VITALS: Ht 175.3 cm; Wt 86.2 kg
[~2018-04-07 10:12] MED LIST changes: +DOCU-143 PO
--- OUTSIDE RECORDS SUMMARY | 2018-04-07 10:38 | XMS REPORT | Clinical Summary ---
Author Author [facility] Organization [facility] Address Unknown Phone Unavailable Care Team Providers Care Security Coordinator Name Role Phone Leroy Lao MD [address] Silver Hernandes DO PCP Source Comments Some departments are not documenting in the electronic medical record. If you do not see the information that you expected, contact Release of Information in the Health Information Management department at [phone] for further assistance in locating additional records.[facility] Allergies Active Allergy Reactions Severity Noted [...] for Chest Pain. Max of 3 of [place] artery of tablets, call 911. [place] heart with stable angina pectoris (HCC), Essential [...] 01/14/2017 Dysphagia 01/14/2017 GERI (acute kidney injury) ([facility]) 01/13/2017 Unstable angina ([facility]) 08/13/2016 Coronary artery disease of [place] artery of [place] heart with stable angina 08/09/2016 pectoris ([facility]) Overview: 07/29/16: heart cath ([place], [place]) - total occlusion of the right [...] Taken Blood Pressure 150/72 05/16/2017 3:11 PM MEDICAL APPLIANCE MAKER Pulse 73 05/16/2017 3:11 PM MEDICAL APPLIANCE MAKER Temperature 36.8 C (98.2 F) 03/06/2017 1:42 PM CDT Respiratory Rate - - Oxygen Saturation 96% 03/06/2017 1:42 PM CDT Inhaled Oxygen - - Concentration Weight 82.6 kg (182 lb) 05/16/2017 3:11 PM MEDICAL APPLIANCE MAKER Height 175.3 cm (5' 9") 05/16/2017 3:11 PM MEDICAL APPLIANCE MAKER Body Mass Index 26.88 05/16/2017 3:11 PM MEDICAL APPLIANCE MAKER Plan of Treatment Health Maintenance Due Date Last Done Comments HEPATITIS C SCREENING 1961 PHYSICAL (COMPREHENSIVE) 1968 EXAM PERTUSSIS VACCINE 1972 HIV SCREENING 1976 TETANUS VACCINE 1978 COLORECTAL CANCER 2011 SCREENING SHINGLES RECOMBINANT 2011 VACCINE (1 of 2) INFLUENZA VACCINE 01/18/2018 Results Not on filefrom Last 3 Months
[2018-04-07] MEDS ORDERED: HYDROcodone/APAP 5 MG/325 MG (LORTAB) TAB PO ONE (10:45)
--- NOTE | 2018-04-07 10:48 | ED GI ---
General Chief Complaint: Abdominal/GI Problems Stated Complaint: HERNIA PAIN Nursing Triage Note: PT REPORTS HAVING HERNIA SURGERY BY DOCTOR ZULAY ON 03-31. PT STATES HE IS HAVING PAIN AND SWELLING. CALLED DOCTORS OFFICE YESTERDAY AND WAS TOLD TO COME TO ER IF SYMPTOMS GOT WORSE. Sepsis Screen: No Definite Risk Source of Information: Patient Exam Limitations: No Limitations History of Present Illness Date Seen by Provider: Apr 07, 2018 Time Seen by Provider: 10:43 Initial Comments To ER per private vehicle with reports of pain at the right inguinal region at the site of his hernia repair. He had right inguinal hernia repair on 03/31/18. He was taking hydrocodone but is out of them. He tripped and fell yesterday and now has increased pain to this area and he has persistent swelling to the swelling was present before he tripped. He is passing gas and having normal bowel movements. Timing/Duration: 1-2 Days Severity/Quality: Moderate Radiation: No Radiation Associated Symptoms: Denies Symptoms; No Nausea/Vomiting Allergies and Home Medications Allergies Coded Allergies: penicillin G (Verified Allergy, Severe, SWELLING, 12/22/17) Home Medications Alprazolam 0.25 Mg Tablet, 0.25 MG PO BID PRN for ANXIETY, (Reported) Amlodipine Besylate 10 Mg Tablet, 10 MG PO DAILY, (Reported) Aspirin 81 Mg Tablet.dr, 81 MG PO HS, (Reported) Atorvastatin Calcium 10 Mg Tablet, 10 MG PO HS, (Reported) Bupropion HCl 150 Mg Tablet.er, 150 MG PO BID, (Reported) Buspirone HCl 15 Mg Tablet, 15 MG PO TID, (Reported) Carvedilol 6.25 Mg Tablet, 6.25 MG PO BID, (Reported) Clonidine HCl 0.1 Mg Tablet, 0.1 MG PO TID, (Reported) Clopidogrel Bisulfate 75 Mg Tablet, 75 MG PO HS, (Reported) Docusate Sodium 100 Mg Capsule, 100 MG PO BID Prescribed by: MERLIN BISWAS on 03/31/18 0850 Hydrocodone Bit/Acetaminophen 1 Tab Tab, 1-2 TAB PO Q6H PRN for PAIN-MODERATE Prescribed by: MERLIN BISWAS on 03/31/18 0850 Hydrocodone/Acetaminophen 1 Each Tablet, 1 EACH PO Q6H PRN for PAIN-MODERATE Prescribed by: VLAD AVELAR on 04/07/18 1121 Losartan Potassium 100 Mg Tablet, 100 MG PO HS, (Reported) Nitroglycerin 0.4 Mg Tab.subl, 0.4 MG SL UD PRN for CHEST PAIN, (Reported) PLACE 1 TAB UNDER TONGUE NEEDED FOR CHEST PAIN; IF PAIN REMAINS AFTER 5 MINUTES, CALL 911 [place]-3 Fatty Acids/Fish Oil 1 Each Capsule, 1,000 MG PO BID, (Reported) Sertraline HCl 100 Mg Tablet, 100 MG PO DAILY, (Reported) Sertraline HCl 25 Mg Tablet, 25 MG PO DAILY, (Reported) TAKES ALONG WITH 100MG TABLET Sulfamethoxazole/Trimethoprim 1 Each Tablet, 1 EACH PO BID Prescribed by: VLAD AVELAR on 04/07/18 1148 Tamsulosin HCl 0.4 Mg Cap.er.24h, 0.4 MG PO DAILY@1800, (Reported) Patient Home Medication List Home Medication List Reviewed: Yes Review of Systems Review of Systems Constitutional: see HPI EENTM: No Symptoms Reported Respiratory: No Symptoms Reported Cardiovascular: No Symptoms Reported Gastrointestinal: See HPI, Abdominal Pain Genitourinary: See HPI Musculoskeletal: no symptoms reported Skin: no symptoms reported Psychiatric/Neurological: No Symptoms Reported Endocrine: No Symptoms Reported Past Ppffyia-Vktxgh-Ackfqd Hx Patient Social History Alcohol Use: Denies Use Alcohol Beverage of Choice: Beer Recreational Drug Use: No Smoking Status: Never a Smoker Type Used: Cigarettes Former Smoker, Quit: Aug 24, 2016 2nd Hand Smoke Exposure: Yes Recent Foreign Travel: No Contact w/Someone Who Travel: No Recent Infectious Disease Expo: No Recent Hopitalizations: Yes (CATH ET STENT ON 07/28/17 ET BALLOON) Physical Abuse: No Sexual Abuse: No Immunizations Up To Date Tetanus Booster (TDap): Less than 5yrs PED Vaccines UTD: No Date of Influenza Vaccine: Jul 28, 2017 Seasonal Allergies Seasonal Allergies: No Past Medical History Surgeries: Yes (umb hernia, R thumb) Abdominal, Coronary Stent, Orthopedic Respiratory: Yes Sleep Apnea Currently Using CPAP: No Currently Using BIPAP: No Cardiac: Yes (BALLOON ON 07/28/17 ET STENT) Coronary Artery Disease, Deep Vein Thrombosis, Heart Attack, High Cholesterol, Hypertension Neurological: Yes (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) Headaches /Migraines, TIA Reproductive Disorders: No Sexually Transmitted Disease: No Genitourinary: Yes (recurrent urinary tract infections, prostate ca) Prostate Problems, UTI-Chronic Gastrointestinal: Yes Gastroesophageal Reflux, Hiatal Hernia, Ulcer Musculoskeletal: Yes Arthritis, Rheumatoid Arthritis, Back Injury, Chronic Back Pain, Fractures Endocrine: No HEENT: No Eye Injury Loss of Vision: Denies Hearing Impairment: Denies Cancer: Yes Prostate Psychosocial: Yes Anxiety, Depression Integumentary: No Blood Disorders: No Adverse Reaction/Blood Tranf: No Family Medical History Arthritis 19 MOTHER HOISTING ENGINEER G8 SISTER FH: COPD (chronic obstructive pulmonary disease) Hypercholesterolemia 19 MOTHER Hypertension 19 MOTHER Heart Disease, Hypertension Physical Exam Vital Signs Vital Signs - First Documented 04/07/18 10:27 Temp 98.7 Pulse 75 Resp 16 B/P (MAP) 133/84 (100) Pulse Ox 96 Capillary Refill : Less Than 3 Seconds Height/Weight/BMI Height: 5'9.00" Weight: 190lbs. 0.0oz. 86.466567hs; 28.8 BMI Method:Stated General Appearance: WD/WN, no apparent distress HEENT: PERRL/EOMI, normal ENT inspection Respiratory: no respiratory distress, no accessory muscle use Gastrointestinal: normal bowel sounds, non tender, soft, other (. There is right inguinal tenderness around the incision site which is clean dry and intact without bruising or erythema. There is minor amount of swelling to this location.) Progress/Results/Core Measures Results/Orders Lab Results Laboratory Tests Test 04/07/18 10:52 04/07/18 11:29 Range/Units White Blood Count 4.5 4.3-11.0 10^3/uL Red Blood Count 4.03 L 4.35-5.85 10^6/uL Hemoglobin 9.3 L 13.3-17.7 G/DL Hematocrit 30 L 40-54 % Mean Corpuscular Volume 74 L 80-99 FL Mean Corpuscular Hemoglobin 23 L 25-34 PG Mean Corpuscular Hemoglobin Concent 31 L 32-36 G/DL Red Cell Distribution Width 16.1 H 10.0-14.5 % Platelet Count 309 130-400 10^3/uL Mean Platelet Volume 10.0 7.4-10.4 FL Neutrophils (%) (Auto) 55 42-75 % Lymphocytes (%) (Auto) 23 12-44 % Monocytes (%) (Auto) 13 H 0-12 % Eosinophils (%) (Auto) 9 0-10 % Basophils (%) (Auto) 1 0-10 % Neutrophils # (Auto) 2.5 1.8-7.8 X 10^3 Lymphocytes # (Auto) 1.0 1.0-4.0 X 10^3 Monocytes # (Auto) 0.6 0.0-1.0 X 10^3 Eosinophils # (Auto) 0.4 H 0.0-0.3 10^3/uL Basophils # (Auto) 0.0 0.0-0.1 10^3/uL Sodium Level 137 135-145 MMOL/L Potassium Level 4.3 3.6-5.0 MMOL/L Chloride Level 101 98-107 MMOL/L Carbon Dioxide Level 26 21-32 MMOL/L Anion Gap 10 5-14 MMOL/L Blood Urea Nitrogen 15 7-18 MG/DL Creatinine 1.53 H 0.60-1.30 MG/DL Estimat Glomerular Filtration Rate 47 BUN/Creatinine Ratio 10 Glucose Level 112 H 70-105 MG/DL Calcium Level 9.6 8.5-10.1 MG/DL Corrected Calcium 9.5 8.5-10.1 MG/DL Total Bilirubin 0.3 0.1-1.0 MG/DL Aspartate Amino Transf (AST/SGOT) 40 H 5-34 U/L Alanine Aminotransferase (ALT/SGPT) 72 H 0-55 U/L Alkaline Phosphatase 186 H 40-136 U/L Total Protein 7.7 6.4-8.2 GM/DL Albumin 4.1 3.2-4.5 GM/DL Urine Color DOMITILA H Urine Clarity CLEAR Urine pH 6.5 5-9 Urine Specific [place] 1.015 L 1.016-1.022 Urine Protein 2+ H NEGATIVE Urine Glucose (UA) NEGATIVE NEGATIVE Urine Ketones NEGATIVE NEGATIVE Urine Nitrite NEGATIVE NEGATIVE Urine Bilirubin 2+ H NEGATIVE Urine Urobilinogen NORMAL NORMAL MG/DL Urine Leukocyte Esterase 3+ H NEGATIVE Urine RBC (Auto) NEGATIVE NEGATIVE Urine RBC 0-2 /HPF Urine WBC 50-100 H /HPF Urine Squamous Epithelial Cells NONE /HPF Urine Crystals NONE /LPF Urine Bacteria FEW H /HPF Urine Casts PRESENT /LPF Urine Hyaline Casts 5-10 H /LPF Urine Mucus NEGATIVE /LPF Urine Culture Indicated YES My Orders Orders - VLAD AVELAR SHIP'S OFFICER Cbc With Automated Diff (04/07/18 10:39) Comprehensive Metabolic Panel (04/07/18 10:39) Ct Abdomen/Pelvis Wo (04/07/18 10:43) Hydrocodone/Apap 5/325 Tablet (Lortab 5 (04/07/18 10:45) Ua Culture If Indicated (04/07/18 11:20) Urine Culture (04/07/18 11:29) Ceftriaxone For Iv Use (Rocephin For I (04/07/18 12:00) Medications Given in ED Current Medications Medications Dose Ordered Sig/Mckenzie Route Start Time Stop Time Status Last Admin Dose Admin Acetaminophen/ Hydrocodone Bitart 1 tab ONCE ONCE PO 04/07/18 10:45 04/07/18 10:46 DC 04/07/18 10:54 1 TAB Vital Signs/I&O 04/07/18 10:27 Temp 98.7 Pulse 75 Resp 16 B/P (MAP) 133/84 (100) Pulse Ox 96 Blood Pressure Mean: 100 Departure Impression Primary Impression: Postoperative pain Additional Impressions: Right ureteral calculus Elevated LFTs Urinary tract infection Disposition: 01 HOME, SELF-CARE Condition: Stable Departure-Patient Inst. Decision time for Depature: 10:47 Referrals: ANDRES RABAGO DO (PCP/Family) Primary Care Physician BEN ENGLAND MD Patient Instructions: Postoperative Pain (DC), Urinary Tract Infection, Adult ( DC) Add. Discharge Instructions: 1. pain medication as directed 2. Follow up with Dr England. call his office tuesday to make an appointment to be seen as the kidney stone in the right ureter may need lithotripsy. 3. Return to er for any concerns Scripts Sulfamethoxazole/Trimethoprim (Bactrim Ds Tablet) 1 Each Tablet 1 EACH PO BID, #14 TAB Prov: VLAD AVELAR SHIP'S OFFICER 04/07/18 Hydrocodone/Acetaminophen ([place] 5-325 Tablet) 1 Each Tablet 1 EACH PO Q6H PRN for PAIN-MODERATE MDD 10, #10 TAB Prov: VLAD AVELAR SHIP'S OFFICER 04/07/18 VLAD AVELAR APRN Apr 07, 2018 10:48
[2018-04-07 10:58] LABS: BASOPHILS % (AUTO) 1 % (0-10); EOSINOPHILS # (AUTO) 0.4 10^3/uL (0.0-0.3); EOSINOPHILS % (AUTO) 9 % (0-10); HEMATOCRIT 30 % (40-54); HEMOGLOBIN 9.3 G/DL (13.3-17.7); LYMPHOCYTES % (AUTO) 23 % (12-44); MEAN CORPUSCULAR HEMOGLOBIN 23 PG (25-34); MEAN CORPUSCULAR HGB CONC 31 G/DL (32-36); MEAN CORPUSCULAR VOLUME 74 FL (80-99); MONOCYTES # (AUTO) 0.6 X 10^3 (0.0-1.0); MONOCYTES % (AUTO) 13 % (0-12); NEUTROPHILS # (AUTO) 2.5 X 10^3 (1.8-7.8); NEUTROPHILS % (AUTO) 55 % (42-75); PLATELET COUNT 309 10^3/uL (130-400); RED BLOOD COUNT 4.03 10^6/uL (4.35-5.85); RED CELL DISTRIBUTION WIDTH 16.1 % (10.0-14.5); WHITE BLOOD COUNT 4.5 10^3/uL (4.3-11.0)
[2018-04-07 11:17] LABS: ALBUMIN 4.1 GM/DL (3.2-4.5); BILIRUBIN,TOTAL 0.3 MG/DL (0.1-1.0); CALCIUM 9.6 MG/DL (8.5-10.1); CREATININE SERUM 1.53 MG/DL (0.60-1.30); POTASSIUM 4.3 MMOL/L (3.6-5.0); TOTAL PROTEIN 7.7 GM/DL (6.4-8.2)
[2018-04-07] MEDS ORDERED: HYDR-4226 PO (11:21)
[2018-04-07 11:34] LABS: CLARITY,URINE CLEAR; COLOR,URINE AMBER; GLUCOSE, URINE (UA) NEGATIVE (NEGATIVE); KETONES,URINE NEGATIVE (NEGATIVE); LEUKOCYTE ESTERASE ,URINE 3+ (NEGATIVE); NITRITE,URINE NEGATIVE (NEGATIVE); PH,URINE 6.5 (5-9); PROTEIN,URINE 2+ (NEGATIVE); UROBILINOGEN,URINE NORMAL (NORMAL)
--- NOTE | 2018-04-07 11:37 | Diagnostic Imaging Report ---
PROCEDURE: CT abdomen and pelvis without contrast. TECHNIQUE: Multiple contiguous axial images were obtained through the abdomen and pelvis without the use of intravenous contrast. INDICATION: Status post right groin hernia surgery last Tuesday. The patient complains of pain in that location. Correlation is made with prior CT from 03/14/2018. The lung bases are clear. Moderate sized hiatal hernia is again noted. The liver and gallbladder are unremarkable. The pancreas and spleen are unremarkable. No adrenal mass is seen. There are nonobstructing calculi in the lower pole of the right kidney, largest 3 mm in size. Previously noted calculus in the proximal right ureter approximately 9 mm in size is unchanged in position. No other ureteral calculi are seen. Aorta is calcified but not aneurysmal. The small and large bowel loops are normal caliber. No obstruction is seen. There is no free fluid. There are postsurgical changes in the right groin from recent hernia repair. No discrete fluid collection is seen. Only inflammatory stranding at the surgical site is identified. The bladder and prostate are unremarkable. IMPRESSION: Postsurgical changes to the right groin from recent hernia repair. No fluid collection or abscess is seen. A right-sided urinary tract calculi are similar to prior CT. Dictated by: Dictated on workstation # [id number]
[2018-04-07 11:44] LABS: BACTERIA,URINE FEW /HPF; BILIRUBIN,URINE 2+ (NEGATIVE); RBC,URINE 0-2 /HPF; WBC,URINE 50-100 /HPF
[2018-04-07] MEDS ORDERED: SULF1TAB35 PO (11:48)
[2018-04-07] MEDS ORDERED: cefTRIAXone 1 GM/10 ML for IV (ROCEPHIN) ONE (11:51)
[2018-04-07] MEDS ORDERED: LIDOCAINE 1% INJ 20 ML 20 ML VIAL ONE (11:51)
[2018-04-07] MEDS ORDERED: cefTRIAXone FOR IV USE 1,000 MG in NS (IVPB) 50 ML IV ONE (12:00)
[2018-04-07 12:09] VITALS: BP 133/84
[2018-04-07] MEDS ORDERED: cefTRIAXone 1,000 MG/2.86 ml vial (IM ONLY) IM SCH (12:15)
== END 2018-04-07 12:09 | disposition home or self-care (01) ==
LOC: ER 10:12 → EDUNIT# 10:12 → ER 12:09
DX: G89.18 Other acute postprocedural pain (principal); N20.1 Calculus of ureter; N39.0 Urinary tract infection, site not specified; R94.5 Abnormal results of liver function studies; G47.30 Sleep apnea, unspecified; I25.10 Atherosclerotic heart disease of native coronary artery without angina pectoris; I25.2 Old myocardial infarction; E78.00 Pure hypercholesterolemia, unspecified; I10 Essential (primary) hypertension; G43.909 Migraine, unspecified, not intractable, without status migrainosus; K21.9 Gastro-esophageal reflux disease without esophagitis; M06.9 Rheumatoid arthritis, unspecified; F41.9 Anxiety disorder, unspecified; F32.9 Major depressive disorder, single episode, unspecified; Z85.46 Personal history of malignant neoplasm of prostate; Z82.49 Family history of ischemic heart disease and other diseases of the circulatory system; Z87.19 Personal history of other diseases of the digestive system; Z87.440 Personal history of urinary (tract) infections; Z86.73 Personal history of transient ischemic attack (TIA), and cerebral infarction without residual deficits; Z86.718 Personal history of other venous thrombosis and embolism; Z98.890 Other specified postprocedural states; Z88.0 Allergy status to penicillin; Z79.82 Long term (current) use of aspirin; Z79.02 Long term (current) use of antithrombotics/antiplatelets; Z87.891 Personal history of nicotine dependence; Z95.5 Presence of coronary angioplasty implant and graft
CPT/HCPCS: 36415; 74176; 80053; 81000; 85025; 87077; 87088; 87186; 99284

== ENCOUNTER 2018-04-11 09:40 | Emergency (ER) | payer SELFPAY ==
[~2018-04-11] VITALS: Ht 175.3 cm; Wt 86.2 kg
[~2018-04-11 09:40] MED LIST changes: +HYDR-4226 PO; +SULF1TAB35 PO
[2018-04-11] MEDS ORDERED: ASPIRIN 81 MG CHEW (CHILDREN'S ASA) PO ONE (09:45)
--- OUTSIDE RECORDS SUMMARY | 2018-04-11 09:49 | XMS REPORT | Clinical Summary ---
Author Author [facility] Organization [facility] Address Unknown Phone Unavailable Care Team Providers Care Tool Tender Name Role Phone Leroy Lao MD 21 Silver Henrandes DO PCP Source Comments Some departments are not documenting in the electronic medical record. If you do not see the information that you expected, contact Release of Information in the Health Information Management department at [phone] for further assistance in locating additional records.[facility] Allergies Active Allergy Reactions Severity [...] for Chest Pain. Max of 3 of [place] artery of tablets, call 911. [place] heart with stable angina pectoris (HCC), Essential [...] - [place]) 08/13/2016 Coronary artery disease of [place] artery of [place] heart with stable angina 08/09/2016 pectoris ([facility]) Overview: 07/29/16: heart cath ([place] [place], [place]) - total occlusion of the right [...] Taken Blood Pressure 150/72 05/16/2017 3:11 PM HISTOPATHOLOGY TECHNICIAN Pulse 73 05/16/2017 3:11 PM HISTOPATHOLOGY TECHNICIAN Temperature 36.8 C (98.2 F) 03/06/2017 1:42 PM CDT Respiratory Rate - - Oxygen Saturation 96% 03/06/2017 1:42 PM CDT Inhaled Oxygen - - Concentration Weight 82.6 kg (182 lb) 05/16/2017 3:11 PM HISTOPATHOLOGY TECHNICIAN Height 175.3 cm (5' 9") 05/16/2017 3:11 PM HISTOPATHOLOGY TECHNICIAN Body Mass Index 26.88 05/16/2017 3:11 PM HISTOPATHOLOGY TECHNICIAN Plan of Treatment Health Maintenance Due Date Last Done Comments HEPATITIS C SCREENING 1961 PHYSICAL (COMPREHENSIVE) 1968 EXAM PERTUSSIS VACCINE 1972 HIV SCREENING 1976 TETANUS VACCINE 1978 COLORECTAL CANCER 2011 SCREENING SHINGLES RECOMBINANT 2011 VACCINE (1 of 2) INFLUENZA VACCINE 01/18/2018 Results Not on filefrom Last 3 Months
[2018-04-11 10:05] LABS: BASOPHILS % (AUTO) 1 % (0-10); EOSINOPHILS # (AUTO) 0.3 10^3/uL (0.0-0.3); EOSINOPHILS % (AUTO) 5 % (0-10); HEMATOCRIT 32 % (40-54); HEMOGLOBIN 9.6 G/DL (13.3-17.7); LYMPHOCYTES # (AUTO) 1.2 X 10^3 (1.0-4.0); LYMPHOCYTES % (AUTO) 25 % (12-44); MEAN CORPUSCULAR HEMOGLOBIN 22 PG (25-34); MEAN CORPUSCULAR HGB CONC 30 G/DL (32-36); MEAN CORPUSCULAR VOLUME 73 FL (80-99); MONOCYTES # (AUTO) 0.6 X 10^3 (0.0-1.0); MONOCYTES % (AUTO) 13 % (0-12); NEUTROPHILS # (AUTO) 2.6 X 10^3 (1.8-7.8); NEUTROPHILS % (AUTO) 56 % (42-75); PLATELET COUNT 345 10^3/uL (130-400); RED CELL DISTRIBUTION WIDTH 16.3 % (10.0-14.5); WHITE BLOOD COUNT 4.7 10^3/uL (4.3-11.0)
[2018-04-11 10:09] LABS: INR 0.9 (0.8-1.4); PROTHROMBIN TIME PATIENT 12.5 SEC (12.2-14.7)
[2018-04-11 10:20] LABS: ALANINE AMINOTRANSFERASE 43 U/L (0-55); ALBUMIN 4.4 GM/DL (3.2-4.5); ALKALINE PHOSPHATASE 180 U/L (40-136); BILIRUBIN,TOTAL 0.3 MG/DL (0.1-1.0); BUN/CREATININE RATIO 13; CALCIUM 9.5 MG/DL (8.5-10.1); CARBON DIOXIDE 23 MMOL/L (21-32); CHLORIDE 103 MMOL/L (98-107); CREATININE SERUM 1.41 MG/DL (0.60-1.30); GFR ESTIMATED 52; GLUCOSE 147 MG/DL (70-105); MAGNESIUM 1.9 MG/DL (1.8-2.4); POTASSIUM 3.9 MMOL/L (3.6-5.0); SODIUM 138 MMOL/L (135-145); TOTAL PROTEIN 8.1 GM/DL (6.4-8.2)
[2018-04-11 10:27] LABS: MYOGLOBIN SERUM 52.5 NG/ML (10.0-92.0)
--- NOTE | 2018-04-11 10:50 | Diagnostic Imaging Report ---
Clinical indication: Patient states his blood pressure is high and his head is about the explode. Exam: Chest x-ray PA and lateral views. Comparisons: Chest x-ray dated 12/22/2017. Findings: Lungs/pleura: Lungs are clear. There is no pneumothorax. There is no pleural effusion. Mediastinum: Unremarkable. Pulmonary vasculature: Unremarkable. Heart: Unremarkable. Bones/extrathoracic soft tissue: Unremarkable. Impression: There is no radiographic evidence of acute cardiopulmonary process. Dictated by: Dictated on workstation # [id number]
--- NOTE | 2018-04-11 11:14 | ED Chest Pain ---
General Chief Complaint: Chest Pain Stated Complaint: CHEST PAIN; LOW BLOOD PRESSURE Nursing Triage Note: ARRIVED VIA AMB TO ROOM 10 COMPAINS OF CHEST PAIN STARTING THIS AM ALONG WITH HYPERTENSION AND HEADACHE. STATES HE TOOK ALL HIS BP MEDS THIS AM. Nursing Sepsis Screen: No Definite Risk Source: patient Exam Limitations: no limitations History of Present Illness Date Seen by Provider: Apr 11, 2018 Time Seen by Provider: 11:11 Initial Comments To ER with reports of central chest pain that he noticed this morning around 9: 00 AM while laying in bed. He checked his blood pressure and found it to be elevated. He took all of his blood pressure medication at home but still is hypertensive and states "I feel like my head is going to pop off". His chest pain is completely resolved at this time. Timing/Duration: 1-3 hours Severity/Quality: mild Location: central Radiation: no radiation Prior CP/Workup: cardiac cath ASA po EVENT MARKETING MANAGER: No NTG SL EVENT MARKETING MANAGER: No Associated Symptoms: No shortness of breath Allergies and Home Medications Allergies Coded Allergies: penicillin G (Verified Allergy, Severe, SWELLING, 12/22/17) Home Medications Alprazolam 0.25 Mg Tablet, 0.25 MG PO BID PRN for ANXIETY, (Reported) Amlodipine Besylate 10 Mg Tablet, 10 MG PO DAILY, (Reported) Aspirin 81 Mg Tablet.dr, 81 MG PO HS, (Reported) Atorvastatin Calcium 10 Mg Tablet, 10 MG PO HS, (Reported) Bupropion HCl 150 Mg Tablet.er, 150 MG PO BID, (Reported) Buspirone HCl 15 Mg Tablet, 15 MG PO TID, (Reported) Carvedilol 6.25 Mg Tablet, 6.25 MG PO BID, (Reported) Clonidine HCl 0.1 Mg Tablet, 0.1 MG PO TID, (Reported) Clopidogrel Bisulfate 75 Mg Tablet, 75 MG PO HS, (Reported) Docusate Sodium 100 Mg Capsule, 100 MG PO BID Prescribed by: MERLIN BISWAS on 03/31/18 0850 Hydrocodone Bit/Acetaminophen 1 Tab Tab, 1-2 TAB PO Q6H PRN for PAIN-MODERATE Prescribed by: MERLIN BISWAS on 03/31/18 0850 Hydrocodone/Acetaminophen 1 Each Tablet, 1 EACH PO Q6H PRN for PAIN-MODERATE Prescribed by: VLAD AVELAR on 04/07/18 1121 Losartan Potassium 100 Mg Tablet, 100 MG PO HS, (Reported) Nitroglycerin 0.4 Mg Tab.subl, 0.4 MG SL UD PRN for CHEST PAIN, (Reported) PLACE 1 TAB UNDER TONGUE NEEDED FOR CHEST PAIN; IF PAIN REMAINS AFTER 5 MINUTES, CALL 911 [place]-3 Fatty Acids/Fish Oil 1 Each Capsule, 1,000 MG PO BID, (Reported) Sertraline HCl 100 Mg Tablet, 100 MG PO DAILY, (Reported) Sertraline HCl 25 Mg Tablet, 25 MG PO DAILY, (Reported) TAKES ALONG WITH 100MG TABLET Sulfamethoxazole/Trimethoprim 1 Each Tablet, 1 EACH PO BID Prescribed by: VLAD AVELAR on 04/07/18 1148 Tamsulosin HCl 0.4 Mg Cap.er.24h, 0.4 MG PO DAILY@1800, (Reported) Patient Home Medication List Home Medication List Reviewed: Yes Review of Systems Review of Systems Constitutional: see HPI EENTM: No Symptoms Reported Respiratory: No Symptoms Reported Cardiovascular: See HPI, Chest Pain Gastrointestinal: No Symptoms Reported Genitourinary: No Symptoms Reported Musculoskeletal: no symptoms reported Skin: no symptoms reported Psychiatric/Neurological: No Symptoms Reported Endocrine: No Symptoms Reported Past Ngdyzgz-Perkve-Qkahqj Hx Patient Social History Alcohol Use: Denies Use Alcohol Beverage of Choice: Beer Recreational Drug Use: No Smoking Status: Former Smoker Type Used: Cigarettes Former Smoker, Quit: Aug 24, 2016 2nd Hand Smoke Exposure: Yes Recent Foreign Travel: No Contact w/Someone Who Travel: No Recent Infectious Disease Expo: No Recent Hopitalizations: Yes (CATH ET STENT ON 07/28/17 ET BALLOON) Immunizations Up To Date Tetanus Booster (TDap): Less than 5yrs PED Vaccines UTD: No Date of Influenza Vaccine: Jul 28, 2017 Seasonal Allergies Seasonal Allergies: No Past Medical History Surgeries: Yes (umb hernia, R thumb) Abdominal, Coronary Stent, Orthopedic Respiratory: Yes Sleep Apnea Currently Using CPAP: No Currently Using BIPAP: No Cardiac: Yes (BALLOON ON 07/28/17 ET STENT) Coronary Artery Disease, Deep Vein Thrombosis, Heart Attack, High Cholesterol, Hypertension Neurological: Yes (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) Headaches /Migraines, TIA Reproductive Disorders: No Sexually Transmitted Disease: No Genitourinary: Yes (recurrent urinary tract infections, prostate ca) Prostate Problems, UTI-Chronic Gastrointestinal: Yes Gastroesophageal Reflux, Hiatal Hernia, Ulcer Musculoskeletal: Yes Arthritis, Rheumatoid Arthritis, Back Injury, Chronic Back Pain, Fractures Endocrine: No HEENT: No Eye Injury Loss of Vision: Denies Hearing Impairment: Denies Cancer: Yes Prostate Psychosocial: Yes Anxiety, Depression Integumentary: No Blood Disorders: No Adverse Reaction/Blood Tranf: No Family Medical History Arthritis 19 MOTHER BEEF SELECTOR G8 SISTER FH: COPD (chronic obstructive pulmonary disease) Hypercholesterolemia 19 MOTHER Hypertension 19 MOTHER Heart Disease, Hypertension Physical Exam Vital Signs Vital Signs - First Documented 04/11/18 09:40 Temp 98.0 Pulse 70 Resp 16 B/P (MAP) 180/96 (124) Pulse Ox 97 O2 Delivery Room Air Capillary Refill : Less Than 3 Seconds Height, Weight, BMI Height: 5'9.00" Weight: 190lbs. 0.0oz. [id number]; 28.8 BMI Method:Stated General Appearance: No Apparent Distress, WD/WN HEENT: PERRL/EOMI, TMs Normal Neck: Full Range of Motion Respiratory: No Accessory Muscle Use, No Respiratory Distress Cardiovascular: Regular Rate, Rhythm, Normal Peripheral Pulses Gastrointestinal: Normal Bowel Sounds, Non Tender, Soft Extremity: Normal Capillary Refill, Normal Inspection Neurologic/Psychiatric: Alert, Oriented x3 Skin: Normal Color, Warm/Dry Progress/Results/Core Measures Results/Orders Lab Results Laboratory Tests Test 04/11/18 09:50 04/11/18 13:07 Range/Units White Blood Count 4.7 4.3-11.0 10^3/uL Red Blood Count 4.40 4.35-5.85 10^6/uL Hemoglobin 9.6 L 13.3-17.7 G/DL Hematocrit 32 L 40-54 % Mean Corpuscular Volume 73 L 80-99 FL Mean Corpuscular Hemoglobin 22 L 25-34 PG Mean Corpuscular Hemoglobin Concent 30 L 32-36 G/DL Red Cell Distribution Width 16.3 H 10.0-14.5 % Platelet Count 345 130-400 10^3/uL Mean Platelet Volume 10.0 7.4-10.4 FL Neutrophils (%) (Auto) 56 42-75 % Lymphocytes (%) (Auto) 25 12-44 % Monocytes (%) (Auto) 13 H 0-12 % Eosinophils (%) (Auto) 5 0-10 % Basophils (%) (Auto) 1 0-10 % Neutrophils # (Auto) 2.6 1.8-7.8 X 10^3 Lymphocytes # (Auto) 1.2 1.0-4.0 X 10^3 Monocytes # (Auto) 0.6 0.0-1.0 X 10^3 Eosinophils # (Auto) 0.3 0.0-0.3 10^3/uL Basophils # (Auto) 0.0 0.0-0.1 10^3/uL Prothrombin Time 12.5 12.2-14.7 SEC INR Comment 0.9 0.8-1.4 Activated Partial Thromboplast Time 29 24-35 SEC Sodium Level 138 135-145 MMOL/L Potassium Level 3.9 3.6-5.0 MMOL/L Chloride Level 103 98-107 MMOL/L Carbon Dioxide Level 23 21-32 MMOL/L Anion Gap 12 5-14 MMOL/L Blood Urea Nitrogen 18 7-18 MG/DL Creatinine 1.41 H 0.60-1.30 MG/DL Estimat Glomerular Filtration Rate 52 BUN/Creatinine Ratio 13 Glucose Level 147 H 70-105 MG/DL Calcium Level 9.5 8.5-10.1 MG/DL Corrected Calcium 9.2 8.5-10.1 MG/DL Magnesium Level 1.9 1.8-2.4 MG/DL Total Bilirubin 0.3 0.1-1.0 MG/DL Aspartate Amino Transf (AST/SGOT) 23 5-34 U/L Alanine Aminotransferase (ALT/SGPT) 43 0-55 U/L Alkaline Phosphatase 180 H 40-136 U/L Myoglobin 52.5 10.0-92.0 NG/ML Troponin I < 0.30 < 0.30 <0.30 NG/ML Total Protein 8.1 6.4-8.2 GM/DL Albumin 4.4 3.2-4.5 GM/DL My Orders Orders - VLAD AVELAR APRN Clonidine Tablet (Catapres Tablet) (04/11/18 11:15) Troponin I (04/11/18 12:45) Hydrocodone/Apap 5/325 Tablet (Lortab 5 (04/11/18 12:15) Medications Given in ED Current Medications Medications Dose Ordered Sig/Mckenzie Route Start Time Stop Time Status Last Admin Dose Admin Acetaminophen/ Hydrocodone Bitart 1 tab ONCE ONCE PO 04/11/18 12:15 10/23/18 12:16 DC 04/11/18 12:25 1 TAB Aspirin 324 mg ONCE ONCE PO 04/11/18 09:45 04/11/18 09:46 DC 04/11/18 10:08 324 MG Clonidine HCl 0.2 mg ONCE ONCE PO 04/11/18 11:15 04/11/18 11:16 DC 04/11/18 11:15 0.2 MG Vital Signs/I&O 04/11/18 09:40 Temp 98.0 Pulse 70 Resp 16 B/P (MAP) 180/96 (124) Pulse Ox 97 O2 Delivery Room Air Blood Pressure Mean: 124 Departure Communication (Admissions) Blood pressure is 170/120. Heart rate 62 sinus. I did order 0.2 mg of clonidine. Impression Primary Impression: Uncontrolled hypertension Disposition: 01 HOME, SELF-CARE Condition: Stable Departure-Patient Inst. Decision time for Depature: 13:43 Referrals: ANDRES RABAGO DO (PCP/Family) Primary Care Physician Patient Instructions: High Blood Pressure (DC) Add. Discharge Instructions: 1. Follow-up with Dr. Craft 2. Return ER for any concerns 3. All discharge instructions reviewed with patient and/or family. Voiced understanding. VLAD AVELAR APRN Apr 11, 2018 11:14
[2018-04-11] MEDS ORDERED: cloNIDine 0.1 MG (CATAPRES) TAB PO ONE (11:15)
[2018-04-11] MEDS ORDERED: HYDROcodone/APAP 5 MG/325 MG (LORTAB) TAB PO ONE (12:15)
[2018-04-11 13:57] VITALS: BP 141/87
[2018-04-11] MEDS ORDERED: ACETAMINOPHEN 500 MG TAB (TYLENOL) ONE (21:47)
[2018-04-11] MEDS ORDERED: cefTRIAXone 1 GM/10 ML for IV (ROCEPHIN) ONE (22:16)
[2018-04-11] MEDS ORDERED: LIDOCAINE 1% INJ 20 ML 20 ML VIAL ONE (22:16)
== END 2018-04-11 13:57 | disposition home or self-care (01) ==
LOC: EDUNIT# 09:40 → ER 09:41
DX: I10 Essential (primary) hypertension (principal); R07.89 Other chest pain; G47.30 Sleep apnea, unspecified; I25.10 Atherosclerotic heart disease of native coronary artery without angina pectoris; I25.2 Old myocardial infarction; E78.00 Pure hypercholesterolemia, unspecified; G43.909 Migraine, unspecified, not intractable, without status migrainosus; M06.9 Rheumatoid arthritis, unspecified; F41.9 Anxiety disorder, unspecified; F32.9 Major depressive disorder, single episode, unspecified; Z82.49 Family history of ischemic heart disease and other diseases of the circulatory system; Z85.46 Personal history of malignant neoplasm of prostate; Z87.440 Personal history of urinary (tract) infections; Z86.73 Personal history of transient ischemic attack (TIA), and cerebral infarction without residual deficits; Z86.718 Personal history of other venous thrombosis and embolism; Z88.0 Allergy status to penicillin; Z79.82 Long term (current) use of aspirin; Z79.02 Long term (current) use of antithrombotics/antiplatelets; Z87.891 Personal history of nicotine dependence; Z95.5 Presence of coronary angioplasty implant and graft; Z98.890 Other specified postprocedural states
CPT/HCPCS: 36415; 71045; 80053; 83735; 83874; 84484; 85025; 85610; 85730; 93005; 93041

== ENCOUNTER 2018-04-11 19:52 | Emergency (ER) | payer SELFPAY ==
[~2018-04-11] VITALS: Ht 175.3 cm; Wt 86.2 kg
--- OUTSIDE RECORDS SUMMARY | 2018-04-11 19:57 | XMS REPORT | Clinical Summary ---
Author Author [facility] Organization [facility] Address Unknown Phone Unavailable Care Team Providers Care Psychiatric Assistant Name Role Phone Leroy Lao MD [address] Silver Hernandes DO PCP Source Comments Some departments are not documenting in the electronic medical record. If you do not see the information that you expected, contact Release of Information in the Health Information Management department at [phone] for further assistance in locating additional records.[facility] Allergies Active Allergy Reactions Severity Noted Date [...] for Chest Pain. Max of 3 of [place] artery of tablets, call 911. [place] heart with stable angina pectoris (HCC), Essential [...] 01/14/2017 Dysphagia 01/14/2017 GERI (acute kidney injury) ([facility]) 01/13/2017 Unstable angina ([facility]) 08/13/2016 Coronary artery disease of [place] artery of [place] heart with stable angina 08/09/2016 pectoris ([facility]) Overview: 07/29/16: heart cath ([place], [place]) - total occlusion of the right [...] Taken Blood Pressure 150/72 05/16/2017 3:11 PM PICK PULLING MACHINE TENDER Pulse 73 05/16/2017 3:11 PM PICK PULLING MACHINE TENDER Temperature 36.8 C (98.2 F) 03/06/2017 1:42 PM CDT Respiratory Rate - - Oxygen Saturation 96% 03/06/2017 1:42 PM CDT Inhaled Oxygen - - Concentration Weight 82.6 kg (182 lb) 05/16/2017 3:11 PM PICK PULLING MACHINE TENDER Height 175.3 cm (5' 9") 05/16/2017 3:11 PM PICK PULLING MACHINE TENDER Body Mass Index 26.88 05/16/2017 3:11 PM PICK PULLING MACHINE TENDER Plan of Treatment Health Maintenance Due Date Last Done Comments HEPATITIS C SCREENING 1961 PHYSICAL (COMPREHENSIVE) 1968 EXAM PERTUSSIS VACCINE 1972 HIV SCREENING 1976 TETANUS VACCINE 1978 COLORECTAL CANCER 2011 SCREENING SHINGLES RECOMBINANT 2011 VACCINE (1 of 2) INFLUENZA VACCINE 01/18/2018 Results Not on filefrom Last 3 Months
[2018-04-11] MEDS ORDERED: ACETAMINOPHEN 500 MG TAB (TYLENOL) PO ONE (21:45)
--- NOTE | 2018-04-11 21:46 | ED Headache ---
General Chief Complaint: Cardiac/General Problems Stated Complaint: BP HIGH 150/123 Source: patient, spouse Exam Limitations: no limitations History of Present Illness Date Seen by Provider: Apr 11, 2018 Time Seen by Provider: 21:34 Initial Comments Patient presents to ER by private conveyance with his significant other and chief complaint that he's having high blood pressure 150s over 120s. He says the blood pressure cuff he is using his never been checked against any other blood pressure cuffs. He says usually the headache will start and then he'll go check his blood pressure and his blood pressure was elevated. He is not taking anything for the headache. He can't take NSAIDs because he is on Plavix after having 2 heart attacks. He is not taking Tylenol. He said this morning he took 4 aspirin and some hydrocodone that were given to him in the ER when he was worked up and they did blood and EKGs and x-rays and didn't find anything wrong. He follows Dr. Lao and Dr. Rabago and has not seen either one of them but he does have an appointment tomorrow with Dr. Rabago. He denies any fevers chills cough congestion runny nose ears feeling under water pressure, sore throat. He has had a little nausea and he has nausea medicines at home but has not taken them. For blood pressure he takes losartan, clonidine, Coreg and amlodipine. He says he takes these all on time. He does not miss any doses. He does have a history of migraines however he says these are different these are not accompanied with any auras and they run down the center of his head, throbbing and come and go after a few hours. He did have a right inguinal hernia repair 2 weeks ago. Bowels are moving normally. Allergies and Home Medications Allergies Coded Allergies: penicillin G (Verified Allergy, Severe, SWELLING, 12/22/17) Home Medications Alprazolam 0.25 Mg Tablet, 0.25 MG PO BID PRN for ANXIETY, (Reported) Amlodipine Besylate 10 Mg Tablet, 10 MG PO DAILY, (Reported) Aspirin 81 Mg Tablet.dr, 81 MG PO HS, (Reported) Atorvastatin Calcium 10 Mg Tablet, 10 MG PO HS, (Reported) Bupropion HCl 150 Mg Tablet.er, 150 MG PO BID, (Reported) Buspirone HCl 15 Mg Tablet, 15 MG PO TID, (Reported) Carvedilol 6.25 Mg Tablet, 6.25 MG PO BID, (Reported) Clonidine HCl 0.1 Mg Tablet, 0.1 MG PO TID, (Reported) Clopidogrel Bisulfate 75 Mg Tablet, 75 MG PO HS, (Reported) Docusate Sodium 100 Mg Capsule, 100 MG PO BID Prescribed by: MERLIN BISWAS on 03/31/18 0850 Hydrocodone Bit/Acetaminophen 1 Tab Tab, 1-2 TAB PO Q6H PRN for PAIN-MODERATE Prescribed by: MERLIN BISWAS on 03/31/18 0850 Hydrocodone/Acetaminophen 1 Each Tablet, 1 EACH PO Q6H PRN for PAIN-MODERATE Prescribed by: VLAD AVELAR on 04/07/18 1121 Losartan Potassium 100 Mg Tablet, 100 MG PO HS, (Reported) Nitroglycerin 0.4 Mg Tab.subl, 0.4 MG SL UD PRN for CHEST PAIN, (Reported) PLACE 1 TAB UNDER TONGUE NEEDED FOR CHEST PAIN; IF PAIN REMAINS AFTER 5 MINUTES, CALL 911 [place]-3 Fatty Acids/Fish Oil 1 Each Capsule, 1,000 MG PO BID, (Reported) Sertraline HCl 100 Mg Tablet, 100 MG PO DAILY, (Reported) Sertraline HCl 25 Mg Tablet, 25 MG PO DAILY, (Reported) TAKES ALONG WITH 100MG TABLET Sulfamethoxazole/Trimethoprim 1 Each Tablet, 1 EACH PO BID Prescribed by: VLAD AVELAR on 04/07/18 1148 Tamsulosin HCl 0.4 Mg Cap.er.24h, 0.4 MG PO DAILY@1800, (Reported) Patient Home Medication List Home Medication List Reviewed: Yes Review of Systems Review of Systems Constitutional: No chills, No diaphoresis Eyes: Denies Blindness, Denies Blurred Vision, Denies Drainage, Denies Pain, Denies Photophobia Past Ivcflzw-Ghhryg-Fvfbfp Hx Patient Social History Alcohol Beverage of Choice: Beer Type Used: Cigarettes Former Smoker, Quit: Aug 24, 2016 2nd Hand Smoke Exposure: Yes Recent Hopitalizations: Yes (CATH ET STENT ON 07/28/17 ET BALLOON) Immunizations Up To Date Tetanus Booster (TDap): Less than 5yrs PED Vaccines UTD: No Date of Influenza Vaccine: Jul 28, 2017 Seasonal Allergies Seasonal Allergies: No Past Medical History Surgeries: Yes (umb hernia, R thumb) Abdominal, Coronary Stent, Orthopedic Respiratory: Yes Sleep Apnea Currently Using CPAP: No Currently Using BIPAP: No Cardiac: Yes (BALLOON ON 07/28/17 ET STENT) Coronary Artery Disease, Deep Vein Thrombosis, Heart Attack, High Cholesterol, Hypertension Neurological: Yes (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) Headaches /Migraines, TIA Reproductive Disorders: No Sexually Transmitted Disease: No Genitourinary: Yes (recurrent urinary tract infections, prostate ca) Prostate Problems, UTI-Chronic Gastrointestinal: Yes Gastroesophageal Reflux, Hiatal Hernia, Ulcer Musculoskeletal: Yes Arthritis, Rheumatoid Arthritis, Back Injury, Chronic Back Pain, Fractures Endocrine: No HEENT: No Eye Injury Loss of Vision: Denies Hearing Impairment: Denies Cancer: Yes Prostate Psychosocial: Yes Anxiety, Depression Integumentary: No Blood Disorders: No Adverse Reaction/Blood Tranf: No Family Medical History Arthritis 19 MOTHER EMPLOYEE BENEFITS ATTORNEY G8 SISTER FH: COPD (chronic obstructive pulmonary disease) Hypercholesterolemia 19 MOTHER Hypertension 19 MOTHER Heart Disease, Hypertension Physical Exam Vital Signs Capillary Refill : Height, Weight, BMI Height: 5'9.00" Weight: 190lbs. 0.0oz. 86.653787wr; 28.8 BMI Method:Stated General Appearance: WD/WN, no apparent distress HEENT: PERRL/EOMI, normal ENT inspection, TMs normal, pharynx normal Neck: non-tender, full range of motion, supple, normal inspection Cardiovascular: normal peripheral pulses, regular rate, rhythm Respiratory: no respiratory distress, no accessory muscle use Gastrointestinal: non tender, soft Extremities: normal range of motion, non-tender, normal capillary refill Psychiatric: alert, oriented x 3 Progress/Results/Core Measures Results/Orders My Orders Orders - ANGUS RUBALCAVA Acetaminophen Tablet (Tylenol Tablet) (04/11/18 21:45) Medications Given in ED Current Medications Medications Dose Ordered Sig/Mckenzie Route Start Time Stop Time Status Last Admin Dose Admin Acetaminophen 1,000 mg ONCE ONCE PO 04/11/18 21:45 04/11/18 21:46 DC 04/11/18 21:48 1,000 MG Progress Progress Note : Time: 21:47 Progress Note We'll start out with Tylenol and a glass of water and review the workup from this morning. We reviewed the workup from this morning which is a really good cardiac workup is apparently he was having some chest discomfort that was unremarkable. The spouse and patient are more concerned about how labile his blood pressures been in so we discussed the possibility of infections and whether he is taking his medicines right. He insists that he is taking his medicines exactly as prescribed but he says he did get diagnosed with a urinary tract infection last week and was given a shot of Rocephin but he was never found time to go to the pharmacy and fill the prescription of antibiotics. We suggested that perhaps an undertreated urinary tract infection can also contribute to labile blood pressure and he should vegetable picker his antibiotics and finished those. In addition to Tylenol give him a gram of Rocephin IM and let him take those gas attendant up and follow-up with Dr. Rabago tomorrow. Since the patient's been here his blood pressures range between 1:30 and 145 systolic over 70-80 diastolic. Departure Impression Primary Impression: Labile hypertension Additional Impression: Urinary tract infection Qualified Codes: N30.00 - Acute cystitis without hematuria Disposition: HOME, SELF-CARE Condition: Stable Departure-Patient Inst. Decision time for Depature: 22:05 Referrals: ANDRES RABAGO DO (PCP/Family) Primary Care Physician Patient Instructions: High Blood Pressure (DC) Add. Discharge Instructions: superintendent greens the antibiotics at the pharmacy and start taking them as prescribed. Follow-up with Dr. Rabago in the clinic. All discharge instructions reviewed with patient and/or family. Voiced understanding. Copy Copies To 1: ANDRES RABAGO TITUS J Apr 11, 2018 21:46
[2018-04-11] MEDS ORDERED: cefTRIAXone 1,000 MG/2.86 ml vial (IM ONLY) IM SCH (22:15)
[2018-04-11 22:24] VITALS: BP 139/100
== END 2018-04-11 22:27 | disposition home or self-care (01) ==
LOC: EDUNIT# 19:52 → ER 19:53
DX: I10 Essential (primary) hypertension (principal); N39.0 Urinary tract infection, site not specified; I25.10 Atherosclerotic heart disease of native coronary artery without angina pectoris; I25.2 Old myocardial infarction; G43.909 Migraine, unspecified, not intractable, without status migrainosus; K21.9 Gastro-esophageal reflux disease without esophagitis; M06.9 Rheumatoid arthritis, unspecified; F41.9 Anxiety disorder, unspecified; F32.9 Major depressive disorder, single episode, unspecified; Z85.46 Personal history of malignant neoplasm of prostate; Z95.5 Presence of coronary angioplasty implant and graft; Z86.718 Personal history of other venous thrombosis and embolism; Z88.0 Allergy status to penicillin; Z79.82 Long term (current) use of aspirin; Z77.22 Contact with and (suspected) exposure to environmental tobacco smoke (acute) (chronic)
CPT/HCPCS: 99284

== ENCOUNTER → 2018-04-20 | Outpatient (CLI) | payer OTHER ==
[~2018-04-20] MED LIST changes: +HYDR-3816 PO; +HYDR-3870 PO; +ONDA4TAB8 SL
--- NOTE | 2018-04-20 18:04 | Diagnostic Imaging Report ---
INDICATION: Kidney stones. COMPARISON: Correlation is made with CT study from 04/07/2018. FINDINGS: Bowel gas pattern is nonobstructive. There appears to be a calculus overlying the lower pole of the right kidney, corresponding with CT calculus. No definite left-sided renal calculi are visible. The previously noted calculus in the mid right ureter appears to overlie the right transverse process of L3. This measures approximately 15 mm. IMPRESSION: Mid right ureteric calculus overlies the right transverse process of L3. There is also right-sided renal calculus. Dictated by: Dictated on workstation # [id number]
== END ==
LOC: RAD 14:54
PROVIDERS: ATTEND Urology
DX: N20.2 Calculus of kidney with calculus of ureter (principal)
CPT/HCPCS: 74018

== ENCOUNTER 2018-04-22 19:25 | Emergency (ER) | payer OTHER ==
[~2018-04-22] VITALS: Ht 175.3 cm; Wt 86.2 kg
[~2018-04-22 19:25] MED LIST changes: -HYDR-3816 PO; -HYDR-3870 PO; -ONDA4TAB8 SL
--- OUTSIDE RECORDS SUMMARY | 2018-04-22 19:31 | XMS REPORT | Clinical Summary ---
Author Author [facility] Organization [facility] Address Unknown Phone Unavailable Care Team Providers Care Silo Worker Name Role Phone Leroy Lao MD 21 Silver Hernandes DO PCP Source Comments Some departments are not documenting in the electronic medical record. If you do not see the information that you expected, contact Release of Information in the Health Information Management department at [phone] for further assistance in locating additional records.[facility] Allergies Active Allergy Reactions Severity Noted [...] for Chest Pain. Max of 3 of [place] artery of tablets, call 911. [place] heart with stable angina pectoris (HCC), Essential [...] 01/14/2017 Dysphagia 01/14/2017 GERI (acute kidney injury) ([facility]) 01/13/2017 Unstable angina ([facility]) 08/13/2016 Coronary artery disease of [place] artery of [place] heart with stable angina 08/09/2016 pectoris ([facility]) Overview: 07/29/16: heart cath ([place] [place], [place]) - total occlusion of the right [...] Taken Blood Pressure 150/72 05/16/2017 3:11 PM TURNTABLE ENGINEER Pulse 73 05/16/2017 3:11 PM TURNTABLE ENGINEER Temperature 36.8 C (98.2 F) 03/06/2017 1:42 PM CDT Respiratory Rate - - Oxygen Saturation 96% 03/06/2017 1:42 PM CDT Inhaled Oxygen - - Concentration Weight 82.6 kg (182 lb) 05/16/2017 3:11 PM TURNTABLE ENGINEER Height 175.3 cm (5' 9") 05/16/2017 3:11 PM TURNTABLE ENGINEER Body Mass Index 26.88 05/16/2017 3:11 PM TURNTABLE ENGINEER Plan of Treatment Health Maintenance Due Date Last Done Comments HEPATITIS C SCREENING 1961 PHYSICAL (COMPREHENSIVE) 1968 EXAM PERTUSSIS VACCINE 1972 HIV SCREENING 1976 TETANUS VACCINE 1978 COLORECTAL CANCER 2011 SCREENING SHINGLES RECOMBINANT 2011 VACCINE (1 of 2) INFLUENZA VACCINE 01/18/2018 Results Not on filefrom Last 3 Months
[2018-04-22] MEDS ORDERED: NS IV 1000 ML 1,000 ML IV SCH (20:00)
[2018-04-22] MEDS ORDERED: KETOROLAC 30 MG/ML VIAL IVP ONE (20:00)
[2018-04-22] MEDS ORDERED: fentaNYL INJECTION 100 MCG/2 ML AMP ONE (20:19)
[2018-04-22 20:29] LABS: BASOPHILS # (AUTO) 0.1 10^3/uL (0.0-0.1); BASOPHILS % (AUTO) 1 % (0-10); EOSINOPHILS # (AUTO) 0.3 10^3/uL (0.0-0.3); EOSINOPHILS % (AUTO) 7 % (0-10); HEMATOCRIT 31 % (40-54); HEMOGLOBIN 9.5 G/DL (13.3-17.7); LYMPHOCYTES # (AUTO) 1.8 X 10^3 (1.0-4.0); LYMPHOCYTES % (AUTO) 36 % (12-44); MEAN CORPUSCULAR HEMOGLOBIN 22 PG (25-34); MEAN CORPUSCULAR HGB CONC 31 G/DL (32-36); MEAN CORPUSCULAR VOLUME 72 FL (80-99); MEAN PLATELET VOLUME 9.4 FL (7.4-10.4); MONOCYTES # (AUTO) 0.5 X 10^3 (0.0-1.0); MONOCYTES % (AUTO) 11 % (0-12); NEUTROPHILS # (AUTO) 2.2 X 10^3 (1.8-7.8); NEUTROPHILS % (AUTO) 45 % (42-75); PLATELET COUNT 388 10^3/uL (130-400); RED BLOOD COUNT 4.28 10^6/uL (4.35-5.85); RED CELL DISTRIBUTION WIDTH 17.1 % (10.0-14.5); WHITE BLOOD COUNT 4.8 10^3/uL (4.3-11.0)
[2018-04-22 20:35] LABS: BILIRUBIN,URINE NEGATIVE (NEGATIVE); CLARITY,URINE CLEAR; COLOR,URINE YELLOW; GLUCOSE, URINE (UA) NEGATIVE (NEGATIVE); KETONES,URINE NEGATIVE (NEGATIVE); LEUKOCYTE ESTERASE ,URINE NEGATIVE (NEGATIVE); NITRITE,URINE NEGATIVE (NEGATIVE); PH,URINE 5 (5-9); PROTEIN,URINE 1+ (NEGATIVE); UROBILINOGEN,URINE NORMAL (NORMAL)
[2018-04-22 20:47] LABS: CALCIUM 9.7 MG/DL (8.5-10.1); CREATININE SERUM 1.72 MG/DL (0.60-1.30); POTASSIUM 4.6 MMOL/L (3.6-5.0)
[2018-04-22 20:48] LABS: BACTERIA,URINE FEW /HPF; SQUAMOUS EPITHELIAL CELL,UR 0-2 /HPF; WBC,URINE 0-2 /HPF
[2018-04-22 20:48] LABS: ALBUMIN 4.5 GM/DL (3.2-4.5); BILIRUBIN,TOTAL 0.2 MG/DL (0.1-1.0); TOTAL PROTEIN 8.1 GM/DL (6.4-8.2)
--- NOTE | 2018-04-22 21:06 | Diagnostic Imaging Report ---
PROCEDURE: CT urinary tract, rule out kidney stone. TECHNIQUE: Multiple contiguous axial images were obtained through the abdomen and pelvis without the use of intravenous contrast. INDICATION: Right flank pain Comparison is made to the study of 04/07/2018. There is continued mild to moderate hiatal hernia. Coronary artery calcifications are noted. Unenhanced images of the liver, gallbladder, pancreas and spleen are unremarkable. There is no evidence of adrenal gland abnormality. Left kidney is stable in appearance with tiny nonobstructing stone in the lower pole. There has been an increase in mild to moderate right hydronephrosis. Note is made of an approximately 0.3 cm nonobstructing stone in the lower pole of the right kidney. There is an approximately 0.9 cm stone in the proximal right ureter with possible additional second stone immediately adjacent to the dominant stone. The location is similar to that noted on the previous examination. No free fluid is seen in the abdomen or pelvis. The appendix is unremarkable. There is edema and/or inflammation in the right anterior pelvic wall region extending along the right inguinal canal. IMPRESSION: Increasing hydronephrosis which appears to be related to an approximately 0.9 x 1.3 cm calculus in the proximal right ureter which has not significantly changed position since the previous study. No other significant change is identified. Dictated by: Dictated on workstation # [id number]
--- NOTE | 2018-04-22 21:08 | Diagnostic Imaging Report ---
INDICATION: Dysuria and right flank pain Comparison is made to the study of 06/20/2017. Overall bowel gas pattern is within normal limits. 0.7 x 1.5 cm stone is again seen to the right of L3-4. This was at the level of L3 on the previous study. Tiny calcification projected over the lower poles of both kidneys. No other pathologic abdominal calcification is seen and there is no other evidence of adverse change. IMPRESSION: Proximal right ureteric stone has shown minimal migration since previous study. Dictated by: Dictated on workstation # [id number]
[2018-04-22] MEDS ORDERED: HYDROmorphone 2 MG/ML VIAL (DILAUDID) IV ONE (21:15)
--- NOTE | 2018-04-22 21:20 | ED Abdominal Pain ---
General Chief Complaint: -Male Stated Complaint: BACK PAIN,UNABLE TO URINATE Nursing Triage Note: Pt ambulated to rm 10. Pt c/o not being able to urinated for the past two hours. Pt c/o lower back pain. Pt has hx of 15 mm kidney stone. Sepsis Screen: No Definite Risk Source of Information: Patient Exam Limitations: No Limitations History of Present Illness Date Seen by Provider: Apr 22, 2018 Time Seen by Provider: 19:57 Initial Comments Patient is a 57-year-old male who presents to the emergency room with complaints of no urination for the past 2 hours, low back pain, and a 15 mm kidney stone. He denies any nausea or vomiting. Reports not following up with Dr. England as directed. Timing/Duration: Other (ongoing) Location: Flank Radiation: Back Associated Symptoms: Other (not urinating) Allergies and Home Medications Allergies Coded Allergies: penicillin G (Verified Allergy, Severe, SWELLING, 12/22/17) Home Medications Alprazolam 0.25 Mg Tablet, 0.25 MG PO BID PRN for ANXIETY, (Reported) Amlodipine Besylate 10 Mg Tablet, 10 MG PO DAILY, (Reported) Aspirin 81 Mg Tablet.dr, 81 MG PO HS, (Reported) Atorvastatin Calcium 10 Mg Tablet, 10 MG PO HS, (Reported) Bupropion HCl 150 Mg Tablet.er, 150 MG PO BID, (Reported) Buspirone HCl 15 Mg Tablet, 15 MG PO TID, (Reported) Carvedilol 6.25 Mg Tablet, 6.25 MG PO BID, (Reported) Clonidine HCl 0.1 Mg Tablet, 0.1 MG PO TID, (Reported) Clopidogrel Bisulfate 75 Mg Tablet, 75 MG PO HS, (Reported) Hydrocodone/Acetaminophen 1 Each Tablet, 1 EACH PO Q4H PRN for PAIN-MODERATE Prescribed by: GUILLERMO MONK on 04/22/182127 Losartan Potassium 100 Mg Tablet, 100 MG PO HS, (Reported) Nitroglycerin 0.4 Mg Tab.subl, 0.4 MG SL UD PRN for CHEST PAIN, (Reported) PLACE 1 TAB UNDER TONGUE NEEDED FOR CHEST PAIN; IF PAIN REMAINS AFTER 5 MINUTES, CALL 911 [place]-3 Fatty Acids/Fish Oil 1 Each Capsule, 1,000 MG PO BID, (Reported) Ondansetron 4 Mg Tab.rapdis, 4 MG SL Q4H PRN for NAUSEA/VOMITING-1ST LINE Prescribed by: GUILLERMO MONK on 04/22/182127 Sertraline HCl 100 Mg Tablet, 100 MG PO DAILY, (Reported) Sertraline HCl 25 Mg Tablet, 25 MG PO DAILY, (Reported) TAKES ALONG WITH 100MG TABLET Sulfamethoxazole/Trimethoprim 1 Each Tablet, 1 EACH PO BID Prescribed by: GUILLERMO MONK on 04/22/182127 Tamsulosin HCl 0.4 Mg Cap.er.24h, 0.4 MG PO DAILY@1800, (Reported) Patient Home Medication List Home Medication List Reviewed: Yes Review of Systems Review of Systems Constitutional: see HPI; No chills, No fever Gastrointestinal: See HPI, Abdominal Pain Genitourinary: See HPI, Flank Pain, Other (no urination) Musculoskeletal: see HPI (low back pain), back pain All Other Systems Reviewed Negative Unless Noted: Yes Past Friaeys-Omhdmt-Igmeab Hx Past Med/Social Hx: Reviewed Nursing Past Med/Soc Hx Patient Social History Alcohol Use: Denies Use Number of Drinks Today: AA Alcohol Beverage of Choice: Beer Recreational Drug Use: No Smoking Status: Former Smoker Type Used: Cigarettes Former Smoker, Quit: Aug 24, 2016 2nd Hand Smoke Exposure: Yes Recent Foreign Travel: No Contact w/Someone Who Travel: No Recent Infectious Disease Expo: No Recent Hopitalizations: No (CATH ET STENT ON 07/28/17 ET BALLOON) Immunizations Up To Date Tetanus Booster (TDap): Less than 5yrs PED Vaccines UTD: No Date of Influenza Vaccine: Jul 28, 2017 Seasonal Allergies Seasonal Allergies: No Past Medical History Surgeries: Yes (umb hernia, R thumb) Abdominal, Coronary Stent, Orthopedic Respiratory: Yes Sleep Apnea Currently Using CPAP: No Currently Using BIPAP: No Cardiac: Yes (BALLOON ON 07/28/17 ET STENT) Coronary Artery Disease, Deep Vein Thrombosis, Heart Attack, High Cholesterol, Hypertension Neurological: Yes (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) Headaches /Migraines, TIA Reproductive Disorders: No Sexually Transmitted Disease: No Genitourinary: Yes (recurrent urinary tract infections, prostate ca) Prostate Problems, UTI-Chronic Gastrointestinal: Yes Gastroesophageal Reflux, Hiatal Hernia, Ulcer Musculoskeletal: Yes Arthritis, Rheumatoid Arthritis, Back Injury, Chronic Back Pain, Fractures Endocrine: No HEENT: No Eye Injury Loss of Vision: Denies Hearing Impairment: Denies Cancer: Yes Prostate Psychosocial: Yes Anxiety, Depression Integumentary: No Blood Disorders: No Adverse Reaction/Blood Tranf: No Family Medical History Reviewed Nursing Family Hx Arthritis 19 MOTHER [employer] G8 SISTER FH: COPD (chronic obstructive pulmonary disease) Hypercholesterolemia 19 MOTHER Hypertension 19 MOTHER Heart Disease, Hypertension Physical Exam Vital Signs Vital Signs - First Documented 04/22/18 19:52 Temp 98.2 Pulse 67 Resp 15 B/P (MAP) 191/118 (142) Pulse Ox 96 O2 Delivery Room Air Capillary Refill : Less Than 3 Seconds Height/Weight/BMI Height: 5'9.00" Weight: 190lbs. 0.0oz. 86.565418nq; 28.8 BMI Method:Stated General Appearance: WD/WN, no apparent distress Respiratory: chest non-tender, lungs clear, normal breath sounds, no respiratory distress, no accessory muscle use Cardiovascular: normal peripheral pulses, regular rate, rhythm, no edema, no gallop, no JVD, no murmur Gastrointestinal: normal bowel sounds, non tender, soft, no organomegaly, no pulsatile mass Extremities: normal capillary refill Back: normal inspection, no CVA tenderness, no vertebral tenderness Neurologic/Psychiatric: alert, oriented x 3 Skin: normal color, warm/dry Progress/Results/Core Measures Results/Orders Lab Results Laboratory Tests Test 04/22/18 20:18 04/22/18 20:25 Range/Units White Blood Count 4.8 4.3-11.0 10^3/uL Red Blood Count 4.28 L 4.35-5.85 10^6/uL Hemoglobin 9.5 L 13.3-17.7 G/DL Hematocrit 31 L 40-54 % Mean Corpuscular Volume 72 L 80-99 FL Mean Corpuscular Hemoglobin 22 L 25-34 PG Mean Corpuscular Hemoglobin Concent 31 L 32-36 G/DL Red Cell Distribution Width 17.1 H 10.0-14.5 % Platelet Count 388 130-400 10^3/uL Mean Platelet Volume 9.4 7.4-10.4 FL Neutrophils (%) (Auto) 45 42-75 % Lymphocytes (%) (Auto) 36 12-44 % Monocytes (%) (Auto) 11 0-12 % Eosinophils (%) (Auto) 7 0-10 % Basophils (%) (Auto) 1 0-10 % Neutrophils # (Auto) 2.2 1.8-7.8 X 10^3 Lymphocytes # (Auto) 1.8 1.0-4.0 X 10^3 Monocytes # (Auto) 0.5 0.0-1.0 X 10^3 Eosinophils # (Auto) 0.3 0.0-0.3 10^3/uL Basophils # (Auto) 0.1 0.0-0.1 10^3/uL Sodium Level 138 135-145 MMOL/L Potassium Level 4.6 3.6-5.0 MMOL/L Chloride Level 104 98-107 MMOL/L Carbon Dioxide Level 23 21-32 MMOL/L Anion Gap 11 5-14 MMOL/L Blood Urea Nitrogen 23 H 7-18 MG/DL Creatinine 1.72 H 0.60-1.30 MG/DL Estimat Glomerular Filtration Rate 41 BUN/Creatinine Ratio 13 Glucose Level 132 H 70-105 MG/DL Calcium Level 9.7 8.5-10.1 MG/DL Corrected Calcium 9.3 8.5-10.1 MG/DL Total Bilirubin 0.2 0.1-1.0 MG/DL Aspartate Amino Transf (AST/SGOT) 14 5-34 U/L Alanine Aminotransferase (ALT/SGPT) 17 0-55 U/L Alkaline Phosphatase 128 40-136 U/L Total Protein 8.1 6.4-8.2 GM/DL Albumin 4.5 3.2-4.5 GM/DL Amylase Level 111 25-125 U/L Lipase 90 H 8-78 U/L Urine Color YELLOW Urine Clarity CLEAR Urine pH 5 5-9 Urine Specific [place] 1.025 H 1.016-1.022 Urine Protein 1+ H NEGATIVE Urine Glucose (UA) NEGATIVE NEGATIVE Urine Ketones NEGATIVE NEGATIVE Urine Nitrite NEGATIVE NEGATIVE Urine Bilirubin NEGATIVE NEGATIVE Urine Urobilinogen NORMAL NORMAL MG/DL Urine Leukocyte Esterase NEGATIVE NEGATIVE Urine RBC (Auto) NEGATIVE NEGATIVE Urine RBC NONE /HPF Urine WBC 0-2 /HPF Urine Squamous Epithelial Cells 0-2 /HPF Urine Renal Epithelial Cells NONE /HPF Urine Crystals NONE /LPF Urine Bacteria FEW H /HPF Urine Casts PRESENT /LPF Urine Hyaline Casts 10-25 H /LPF Urine Mucus LARGE H /LPF Urine Culture Indicated NO My Orders Orders - GUILLERMO MONK Ct Abd/Pelvis Wo(Kidney Stone) (04/22/18 19:57) Abdomen/Kub 1view (04/22/18 19:57) Saline Lock/Iv-Start (04/22/18 19:57) Comprehensive Metabolic Panel (04/22/18 19:57) Lipase (04/22/18 19:57) Amylase (04/22/18 19:57) Ua Culture If Indicated (04/22/18 19:57) Cbc With Automated Diff (04/22/18 19:57) Ketorolac Injection (Toradol Injection) (04/22/18 20:00) Ns Iv 1000 Ml (Sodium Chloride 0.9%) (04/22/18 20:00) Fentanyl Injection (Sublimaze Injection (04/22/18 20:19) Hydromorphone Injection (Dilaudid Inject (04/22/18 21:15) Rx-Hydrocodone/Apap 5-325 Mg (Rx-Vicodin (04/22/18 21:48) Medications Given in ED Vital Signs/I&O 04/22/18 04/22/18 19:52 21:55 Temp 98.2 98.6 Pulse 67 86 Resp 15 15 B/P (MAP) 191/118 (142) 189/94 (125) Pulse Ox 96 98 O2 Delivery Room Air Room Air Blood Pressure Mean: 142 Progress Progress Note : Time: 21:20 Progress Note I have seen and evaluated the patient. I've informed him of his imaging studies. His pain is controlled with IV medication. He agrees with plans for discharge, plans for follow-up with Dr. England, return precautions were given. Diagnostic Imaging Diagonstic Imaging: Xray, CT Plain Films/CT/US/NM/MRI: abdomen, c-spine Comments NAME: EZEQUIEL VITALE MED REC#: [id number] PHYSICIAN: GUILLERMO MONK CC: GUILLERMO MONK; ОЛЕГ KEMP MD Page 1 of 1 RADIOLOGY REPORT [place] [place] CC: GUILLERMO MONK; ОЛЕГ KEMP MD Page 1 of 1 RADIOLOGY REPORT NAME: EZEQUIEL VITALE MED REC#: [id number] PT STATUS: DEP ER : 1960 PHYSICIAN: GUILLERMO MONK ADMIT DATE: 04/22/18/ER Signed Date of Exam: 04/22/18 ABDOMEN/KUB 1VIEW INDICATION: Dysuria and right flank pain Comparison is made to the study of 06/20/2017. Overall bowel gas pattern is within normal limits. 0.7 x 1.5 cm stone is again seen to the right of L3-4. This was at the level of L3 on the previous study. Tiny calcification projected over the lower poles of both kidneys. No other pathologic abdominal calcification is seen and there is no other evidence of adverse change. IMPRESSION: Proximal right ureteric stone has shown minimal migration since previous study. Dictated by: Dictated on workstation # [id number] Dict: 04/22/182057 Trans: 04/22/182157 Interpreted by: ОЛЕГ KEMP MD Electronically signed by: ОЛЕГ KEMP MD 04/22/182157 NAME: EZEQUIEL VITALE MED REC#: [id number] PHYSICIAN: GUILLERMO MONK CC: GUILLERMO MONK; ОЛЕГ KEMP MD Page 2 of 2 RADIOLOGY REPORT [facility] [place] CC: YULISSA MONK THOMAS J MD Page 1 of 2 RADIOLOGY REPORT NAME: EZEQUIEL VITALE MED REC#: [id number] PT STATUS: REG ER : 1960 PHYSICIAN: GUILLERMO MONK ADMIT DATE: 04/22/18/ER Signed Date of Exam: 04/22/18 CT ABD/PELVIS WO(KIDNEY STONE) PROCEDURE: CT urinary tract, rule out kidney stone. TECHNIQUE: Multiple contiguous axial images were obtained through the abdomen and pelvis without the use of intravenous contrast. INDICATION: Right flank pain Comparison is made to the study of 04/07/2018. There is continued mild to moderate hiatal hernia. Coronary artery calcifications are noted. Unenhanced images of the liver, gallbladder, pancreas and spleen are unremarkable. There is no evidence of adrenal gland abnormality. Left kidney is stable in appearance with tiny nonobstructing stone in the lower pole. There has been an increase in mild to moderate right hydronephrosis. Note is made of an approximately 0.3 cm nonobstructing stone in the lower pole of the right kidney. There is an approximately 0.9 cm stone in the proximal right ureter with possible additional second stone immediately adjacent to the dominant stone. The location is similar to that noted on the previous examination. No free fluid is seen in the abdomen or pelvis. The appendix is unremarkable. There is edema and/or inflammation in the right anterior pelvic wall region extending along the right inguinal canal. IMPRESSION: Increasing hydronephrosis which appears to be related to an approximately 0.9 x 1.3 cm calculus in the proximal right ureter which has not significantly changed position since the previous study. No other significant change is identified. Dictated by: Dictated on workstation # [id number] Dict: 04/22/182048 Trans: 04/22/182105 Interpreted by: ОЛЕГ KEMP MD Electronically signed by: ОЛЕГ KEMP MD 04/22/182105 Reviewed: Reviewed by Me Departure Impression Primary Impression: Kidney stone Disposition: HOME, SELF-CARE Condition: Stable/Unchanged Departure-Patient Inst. Decision time for Depature: 21:26 Referrals: ANDRES RABAGO DO (PCP/Family) Primary Care Physician BEN ENGLAND MD Patient Instructions: Kidney Stones (DC) Add. Discharge Instructions: Take medication as directed. Follow-up with Dr. England first thing Tuesday morning for an appointment to evaluate the kidney stone. Return back to the emergency room for any worsening symptoms or concerns as needed. Strain all urine, if you could pass the stone take it with you to your appointment at Dr. Cruz office. All discharge instructions reviewed with patient and/or family. Voiced understanding. Scripts Ondansetron (Zofran Odt) 4 Mg Tab.rapdis 4 MG SL Q4H PRN for NAUSEA/VOMITING-1ST LINE, #14 TAB Prov: GUILLERMO MONK 04/22/18 Sulfamethoxazole/Trimethoprim (Bactrim Ds Tablet) 1 Each Tablet 1 EACH PO BID for 7 Days, #14 TAB Prov: GUILLERMO MONK 04/22/18 Hydrocodone/Acetaminophen (Hydrocodone-Acetamin 7.5-325) 1 Each Tablet 1 EACH PO Q4H PRN for PAIN-MODERATE MDD 6, #14 TAB Prov: GUILLERMO MONK 04/22/18 GUILLERMO MONK Apr 22, 2018 21:20
[2018-04-22] MEDS ORDERED: ONDA4TAB8 SL (21:28)
[2018-04-22] MEDS ORDERED: SULF1TAB35 PO (21:28)
[2018-04-22] MEDS ORDERED: HYDR-3816 PO (21:28)
[2018-04-22] MEDS ORDERED: RX-HYDROCODONE/APAP 5/325 MG #4 TAB PK PO ONE (21:48)
[2018-04-22 21:55] VITALS: BP 189/94
[2018-04-25] MEDS ORDERED: HYDR-3870 PO (12:02)
== END 2018-04-22 21:55 | disposition home or self-care (01) ==
LOC: EDUNIT# 19:25 → ER 19:27
DX: N13.2 Hydronephrosis with renal and ureteral calculous obstruction (principal); G47.30 Sleep apnea, unspecified; I25.2 Old myocardial infarction; I25.10 Atherosclerotic heart disease of native coronary artery without angina pectoris; E78.00 Pure hypercholesterolemia, unspecified; I10 Essential (primary) hypertension; M06.9 Rheumatoid arthritis, unspecified; F41.9 Anxiety disorder, unspecified; F32.9 Major depressive disorder, single episode, unspecified; K21.9 Gastro-esophageal reflux disease without esophagitis; G43.909 Migraine, unspecified, not intractable, without status migrainosus; Z86.19 Personal history of other infectious and parasitic diseases; Z87.440 Personal history of urinary (tract) infections; Z82.49 Family history of ischemic heart disease and other diseases of the circulatory system; Z85.46 Personal history of malignant neoplasm of prostate; Z87.19 Personal history of other diseases of the digestive system; Z86.718 Personal history of other venous thrombosis and embolism; Z88.0 Allergy status to penicillin; Z79.82 Long term (current) use of aspirin; Z87.891 Personal history of nicotine dependence; Z95.5 Presence of coronary angioplasty implant and graft
CPT/HCPCS: 36415; 74018; 74176; 80053; 81000; 82150; 83690; 85025; 96361; 96374; 96375

== ENCOUNTER 2018-04-24 14:53 | Outpatient (CLI) | payer SELFPAY ==
[~2018-04-24] VITALS: Ht 175.3 cm; Wt 86.2 kg
[~2018-04-24 14:53] MED LIST changes: +HYDR-3816 PO; +ONDA4TAB8 SL
[2018-04-25] MEDS ORDERED: HYDR-3870 PO ×2 (12:02)
== END 2018-04-24 15:40 | disposition home or self-care (01) ==
LOC: PREOP 14:53
PROVIDERS: ATTEND Urology
DX: Z01.818 Encounter for other preprocedural examination (principal)

== ENCOUNTER 2018-04-25 07:02 | Day surgery (SDC) | payer OTHER ==
[~2018-04-25] VITALS: Ht 175.3 cm; Wt 86.2 kg
--- OUTSIDE RECORDS SUMMARY | 2018-04-25 07:08 | XMS REPORT | Clinical Summary ---
Author Author [facility] Organization [facility] Address Unknown Phone Unavailable Care Team Providers Care Supervisor Carding Name Role Phone Leroy Lao MD [address] Silver Hernandes DO PCP Source Comments Some departments are not documenting in the electronic medical record. If you do not see the information that you expected, contact Release of Information in the Health Information Management department at [phone] for further assistance in locating additional records.[facility] 08/13/2016 Coronary artery disease of [place] artery of [place] heart with stable angina 08/09/2016 pectoris ([facility]) Overview: 07/29/16: heart cath ([place], [place]) - total occlusion of the right [...] Taken Blood Pressure 150/72 05/16/2017 3:11 PM ELECTROLYSIS ENGINEER Pulse 73 05/16/2017 3:11 PM ELECTROLYSIS ENGINEER Temperature 36.8 C (98.2 F) 03/06/2017 1:42 PM CDT Respiratory Rate - - Oxygen Saturation 96% 03/06/2017 1:42 PM CDT Inhaled Oxygen - - Concentration Weight 82.6 kg (182 lb) 05/16/2017 3:11 PM ELECTROLYSIS ENGINEER Height 175.3 cm (5' 9") 05/16/2017 3:11 PM ELECTROLYSIS ENGINEER Body Mass Index 26.88 05/16/2017 3:11 PM ELECTROLYSIS ENGINEER Plan of Treatment Health Maintenance Due Date Last Done Comments HEPATITIS C SCREENING 1960 PHYSICAL (COMPREHENSIVE) 1968 EXAM PERTUSSIS VACCINE 1972 HIV SCREENING 1976 TETANUS VACCINE 1978 COLORECTAL CANCER 2011 SCREENING SHINGLES RECOMBINANT 2011 VACCINE (1 of 2) INFLUENZA VACCINE 01/18/2018 Results Not on filefrom Last 3 Months
[2018-04-25 07:10] VITALS: BP 145/94
[2018-04-25] MEDS ORDERED: CATHETER FLUSH 10 ML SYR IV PRN (07:30)
[2018-04-25] MEDS ORDERED: LEVOFLOXACIN 250 MG/50 ML IVPB 50 ML IV ONE (07:30)
[2018-04-25] MEDS ORDERED: FAMOTIDINE 20MG/2ML IV (PEPCID) ONE (08:04)
[2018-04-25] MEDS: LACTATED RINGERS 1,000 ML IV SCH ×2 (08:14→11:01)
[2018-04-25] MEDS ORDERED: FAMOTIDINE 20MG/2ML IV (PEPCID) IV ONE ×2 (08:15→09:15)
--- NOTE | 2018-04-25 08:26 | Progress Note-Pre Operative ---
Pre-Operative Progress Note H&P Reviewed The H&P was reviewed, patient examined and no changes noted. Date Seen by Provider: Apr 25, 2018 Time Seen by Provider: 08:26 Date H&P Reviewed: Apr 25, 2018 Time H&P Reviewed: 08: Pre-Operative Diagnosis: RT PROXIMAL URETERAL STONE BEN ENGLAND MD Apr 25, 2018 8:26 am
[2018-04-25] MEDS ORDERED: SEVOFLURANE (ULTANE) 15 ML INHAL SOLN ONE (09:05)
[2018-04-25] MEDS ORDERED: proPOfol 200 MG/20 ML (DIPRIVAN) VIAL IV ONE (09:05)
[2018-04-25] MEDS ORDERED: LIDOCAINE PF 2% 5 ML (XYLOCAINE) VIAL ONE (09:05)
[2018-04-25] MEDS ORDERED: ONDANSETRON 4 MG/2 ML (SDV) Z0FRAN ONE (09:05)
[2018-04-25] MEDS ORDERED: fentaNYL INJECTION 100 MCG/2 ML AMP ONE (09:05)
[2018-04-25] MEDS ORDERED: MIDAZOLAM 2 MG/2 ML (VERSED) VIAL ONE (09:05)
[2018-04-25] MEDS ORDERED: DEXAMETHASONE 10 MG/ML (DECADRON) 1 ML VIAL ONE (09:05)
--- NOTE | 2018-04-25 10:11 | Discharge Inst-Urology ---
Discharge Inst-Urology Discharge Medications New, Converted, or Re-newed RX: RX on Chart Patient Instructions/Follow Up Plan Please make appointment to been seen in office Wednesday 05/02, KUB prior to iT KUB on way home Post ESWL instructions In 48 hours, if no bleeding may resume ASA and Plavix Increase oral fluids for 48 hours and then as needed. Diet and Activity as tolerated. If questions or concerns contact your physician Or seek help at emergency department. BEN ENGLAND MD Apr 25, 2018 10:11 am
--- NOTE | 2018-04-25 10:12 | Progress Note-Post Operative ---
Post-Operative Progess Note Surgeon (s)/Melt Superintendant (s) Surgeon BEN ENGLAND MD Melt Superintendant: NONE Pre-Operative Diagnosis RT PROXIMAL URETERAL STONE Post-Operative Diagnosis SAME Procedure & Operative Findings Date of Procedure 04/25/18 Procedure Performed/Findings RT ESWL Anesthesia Type GENERAL Estimated Blood Loss Estimated blood loss (mL): NONE Specimens/Packing Specimens Removed NONE Packing: NONE BEN ENGLAND MD Apr 25, 2018 10:12 am
[2018-04-25] MEDS ORDERED: KETOROLAC 30 MG/ML VIAL ONE (10:18)
[2018-04-25] MEDS ORDERED: FUROSEMIDE 40 MG/4 ML INJ (LASIX) ONE (10:18)
--- NOTE | 2018-04-25 10:44 | Diagnostic Imaging Report ---
INDICATION: Nephrolithiasis KUB at 7:49 AM There is a 14 mm calcification projecting over the right mid ureter at the level of L3 transverse process. This is similar in location as the prior exam from 04/22/2018. IMPRESSION: Calcification projecting over the right mid ureter not appreciably changed from earlier. Dictated by: Dictated on workstation # [id number]
[2018-04-25] MEDS ORDERED: HYDROmorphone 2 MG/ML VIAL (DILAUDID) IV ONE (10:45)
[2018-04-25] MEDS ORDERED: ONDANSETRON 4 MG/2 ML (SDV) Z0FRAN IVP PRN (10:45)
[2018-04-25 11:40] VITALS: BP 144/81
[2018-04-25] MEDS ORDERED: HYDROcodone/APAP 5 MG/325 MG (LORTAB) TAB PO PRN (12:00)
[2018-04-25] MEDS ORDERED: HYDR-3870 PO ×2 (12:02)
[2018-04-25 12:10] VITALS: BP 144/77
[2018-04-25] MEDS ORDERED: PROMETHAZINE INJ 25 MG/ML (PHENERGAN) AMP IVP ONE (12:45)
[2018-04-25 13:15] VITALS: BP 149/78
[2018-04-25 13:56] VITALS: BP 149/78
--- NOTE | 2018-04-25 14:16 | Anesthesia-General Post-Op ---
General Patient Condition Mental Status/LOC: Same as Preop Cardiovascular: Satisfactory Nausea/Vomiting: Absent Respiratory: Satisfactory Pain: Controlled Complications: Absent Post Op Complications Complications None Follow Up Care/Instructions Patient Instructions None needed. Anesthesia/Patient Condition Patient Condition Patient is doing well, no complaints, stable vital signs, no apparent adverse anesthesia problems. No complications reported per nursing. D/C home per [facility] Criteria: Yes TODD INGRAM CRNA Apr 25, 2018 14:16
--- NOTE | 2018-04-25 15:40 | Diagnostic Imaging Report ---
Indication: Nephrolithiasis. KUB A 14 mm stone projecting over the transverse process of L3 on the right. This is unchanged in position from earlier in the day. Impression: Right ureterolithiasis. Dictated by: Dictated on workstation # [id number]
--- NOTE | 2018-04-25 18:59 | OPERATIVE REPORT ---
DATE OF SERVICE: 04/25/2018 PREOPERATIVE DIAGNOSIS: Right proximal ureteral stone. POSTOPERATIVE DIAGNOSIS: Right proximal ureteral stone. OPERATION PERFORMED: Right ESWL. SURGEON: Francisco England MD. ANESTHESIA: General. COMPLICATIONS: None. DESCRIPTION OF PROCEDURE: With the patient in supine position on the ESWL table, the right proximal ureteral stone was localized and shocks were delivered at kV of 6. A 4000 shocks were delivered with what looked like good fragmentation and layering of the stone. It was a good sized stone to start with. The patient received 40 mg of Lasix and 30 mg of Toradol IV at the end of the procedure. He tolerated the procedure and anesthesia well and was sent to recovery room in stable condition. Job ID: [id number] DocumentID: [id number] Dictated Date: 04/25/2018 10:28:13 Family Nurse Practitioner Date: 04/25/2018 15:16:01 Dictated By: FRANCISCO ENGLAND MD
== END 2018-04-25 13:56 | disposition home or self-care (01) ==
LOC: SDC 07:02
PROVIDERS: ATTEND Urology
DX: N20.1 Calculus of ureter (principal); I10 Essential (primary) hypertension; I25.10 Atherosclerotic heart disease of native coronary artery without angina pectoris; G47.33 Obstructive sleep apnea (adult) (pediatric); K21.9 Gastro-esophageal reflux disease without esophagitis; K44.9 Diaphragmatic hernia without obstruction or gangrene; Z86.73 Personal history of transient ischemic attack (TIA), and cerebral infarction without residual deficits; Z87.891 Personal history of nicotine dependence; Z79.82 Long term (current) use of aspirin; Z79.899 Other long term (current) drug therapy; Z95.5 Presence of coronary angioplasty implant and graft
CPT/HCPCS: 74018; 87081

== ENCOUNTER → 2018-05-02 | Outpatient (CLI) | payer OTHER ==
[~2018-05-02] MED LIST changes: +HYDR-3870 PO
--- NOTE | 2018-05-02 14:33 | Diagnostic Imaging Report ---
EXAMINATION: Supine abdomen at 1:30 p.m. INDICATION: Nephrolithiasis. Two views were obtained. FINDINGS: The prior exam of 04/25/2018 noted a 14 mm calculus projected over the right transverse process of L3. That calculus has slightly migrated caudally and now lies just inferior to the right transverse process of L3. There are no other pathological calcifications evident. A few small phleboliths are again seen within the pelvis. IMPRESSION: The calculus seen on the prior exam now lies just inferior to the right transverse process of L3. Dictated by: Dictated on workstation # [id number]
== END ==
LOC: RAD 12:55
PROVIDERS: ATTEND Urology
DX: N20.2 Calculus of kidney with calculus of ureter (principal)
CPT/HCPCS: 74018

== ENCOUNTER 2018-07-11 13:19 | Emergency (ER) | payer SELFPAY ==
[~2018-07-11] VITALS: Ht 175.3 cm; Wt 82.6 kg
[~2018-07-11 13:19] MED LIST changes: -AMLO10TA6 PO; +AMLO10TA7 PO; +LOSA100T57 PO; -LOSA100T8 PO; +LOSA50TA63 PO; -LOSA50TA7 PO
--- OUTSIDE RECORDS SUMMARY | 2018-07-11 13:24 | XMS REPORT | Clinical Summary ---
Author Author [facility] Organization [facility] Address Unknown Phone Unavailable Care Team Providers Care Nitroglycerin Supervisor Name Role Phone Leroy Lao MD 21 Silver Hernandes DO PCP Source Comments Some departments are not documenting in the electronic medical record. If you do not see the information that you expected, contact Release of Information in the Health Information Management department at [phone] for further assistance in locating additional records.[facility] Allergies Comments Active Allergy Reactions Severity Noted Date Penicillins EDEMA High 08/04/2016 Blurry vision, diarrhea, tingling sensation in feet Topiramate DIARRHEA, Medium 03/15/2017 VISION CHANGES Medications End Date Status Medication Sig Dispensed Refills Start Date Active aspirin EC 81 mg tablet Take 81 mg by 0 mouth at bedtime daily. Take with food. Active nitroglycerin (NITROSTAT) Place 1 Tab 25 Tab 3 0.4 mg tabletIndications: under tongue 7 Coronary artery disease every 5 of mcgrath artery of minutes as mcgrath heart with stable needed for angina pectoris (HCC), Chest Pain. Essential hypertension, Max of 3 Mixed hyperlipidemia, tablets, call Gastroesophageal reflux 911. disease, esophagitis presence not specified, Ischemic chest pain, Tobacco abuse, History of noncompliance with medical treatment Active clopiDOGrel (PLAVIX) 75 Take 75 mg by 0 mg tablet mouth at bedtime daily. Active fish oil- omega 3-DHA/EPA Take 1 Cap by 0 300/1,000 mg capsule mouth twice daily. Active BUPROPION HCL (WELLBUTRIN Take 150 mg 0 SR PO) by mouth twice daily. Active omeprazole DR(+) Take 20 mg by 0 (PRILOSEC) 20 mg capsule mouth daily. Active amLODIPine (NORVASC) 10 Take 1 Tab by 90 Tab 3 mg tablet mouth daily. 7 Active atorvastatin (LIPITOR) 10 Take 10 mg by 0 mg tablet mouth daily. Active ranolazine ER (RANEXA) Take 1 tablet 60 tablet 3 1,000 mg tablet by mouth 7 twice daily. Active losartan(+) (COZAAR) 100 Take 1 tablet 90 tablet 3 mg tablet by mouth 7 daily. Active Problems Problem Noted Date Episode of transient neurologic symptoms 03/06/2017 Weakness 01/14/2017 Dysphagia 01/14/2017 GERI (acute kidney injury) 01/13/2017 Unstable angina 08/13/2016 Coronary artery disease of [place] artery of [place] heart with stable angina 08/09/2016 pectoris Overview: 07/29/16: heart cath ([place], [place]) - total occlusion of the right [...] Name Status Comments Mother Sister Social History Date Tobacco Use Types Packs/Day Years Used Current Every Day Smoker Cigarettes Alcohol Use Drinks/Week oz/Week Comments Yes 0 Standard 0.0 drinks or equivalent Sex Assigned at Date Recorded Not on file Industry Job Start Date Occupation Not on file Not on file Not on file Travel End Travel History Travel Start No recent travel history available. 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 Blood Pressure 150/72 05/16/2017 3:11 PM CHAIR CAR ATTENDANT Pulse 73 03/06/2017 1:42 PM CDT Temperature 36.8 C (98.2 F) - Respiratory Rate - 03/06/2017 1:42 PM CDT Oxygen Saturation 96% - Inhaled Oxygen - Concentration 05/16/2017 3:11 PM CHAIR CAR ATTENDANT Weight 82.6 kg (182 lb) 05/16/2017 3:11 PM CHAIR CAR ATTENDANT Height 175.3 cm (5' 9") 05/16/2017 3:11 PM CHAIR CAR ATTENDANT Body Mass Index 26.88 Plan of Treatment Health Maintenance Due Date Last Done Comments HEPATITIS C SCREENING 1960 PHYSICAL (COMPREHENSIVE) 1968 EXAM HIV SCREENING 1976 DTAP/TDAP VACCINES (1 - 1979 Tdap) COLORECTAL CANCER 2011 SCREENING SHINGLES RECOMBINANT 2011 VACCINE (1 of 2) INFLUENZA VACCINE 01/18/2018 Results Not on filefrom Last 3 Months Advance Directives Patient has advance care planning documents, and code status on file. For more information, please contact: [facility] [address] [place] [address] Date Inactivated Comments Code Status Date Activated 03/06/2017 9:13 PM DNAR-Full 03/06/2017 1:08 AM Intervention Provider has discussed Code Status No, more discussion w/Patient or Family? needed 03/06/2017 1:08 AM Full Code 03/06/2017 12:40 AM Provider has discussed Code Status No, more discussion w/Patient or Family? needed 01/14/2017 4:52 PM Full Code 01/12/2017 7:35 AM Provider has discussed Code Status No, more discussion w/Patient or Family? needed 08/16/2016 6:48 PM Full Code 08/13/2016 10:22 PM Provider has discussed Code Status No, more discussion w/Patient or Family? needed 08/10/2016 11:35 AM Full Code 08/09/2016 1:03 PM Provider has discussed Code Status No, more discussion w/Patient or Family? needed
[2018-07-11] MEDS ORDERED: ASPIRIN 81 MG CHEW (CHILDREN'S ASA) PO ONE (13:45)
[2018-07-11 13:50] LABS: BASOPHILS % (AUTO) 1 % (0-10); EOSINOPHILS # (AUTO) 0.3 10^3/uL (0.0-0.3); EOSINOPHILS % (AUTO) 10 % (0-10); HEMATOCRIT 33 % (40-54); HEMOGLOBIN 10.1 G/DL (13.3-17.7); LYMPHOCYTES # (AUTO) 0.6 X 10^3 (1.0-4.0); LYMPHOCYTES % (AUTO) 18 % (12-44); MEAN CORPUSCULAR HEMOGLOBIN 23 PG (25-34); MEAN CORPUSCULAR HGB CONC 31 G/DL (32-36); MEAN CORPUSCULAR VOLUME 75 FL (80-99); MEAN PLATELET VOLUME 9.9 FL (7.4-10.4); MONOCYTES # (AUTO) 0.4 X 10^3 (0.0-1.0); MONOCYTES % (AUTO) 12 % (0-12); NEUTROPHILS # (AUTO) 1.9 X 10^3 (1.8-7.8); NEUTROPHILS % (AUTO) 59 % (42-75); PLATELET COUNT 295 10^3/uL (130-400); RED CELL DISTRIBUTION WIDTH 20.7 % (10.0-14.5); WHITE BLOOD COUNT 3.2 10^3/uL (4.3-11.0)
[2018-07-11 14:00] LABS: INR 0.9 (0.8-1.4); PROTHROMBIN TIME PATIENT 12.1 SEC (12.2-14.7)
[2018-07-11 14:09] LABS: ALANINE AMINOTRANSFERASE 23 U/L (0-55); ALBUMIN 4.4 GM/DL (3.2-4.5); ALKALINE PHOSPHATASE 130 U/L (40-136); BILIRUBIN,TOTAL 0.3 MG/DL (0.1-1.0); BUN/CREATININE RATIO 11; CALCIUM 9.3 MG/DL (8.5-10.1); CARBON DIOXIDE 23 MMOL/L (21-32); CHLORIDE 107 MMOL/L (98-107); CREATININE SERUM 1.46 MG/DL (0.60-1.30); GFR ESTIMATED 50; GLUCOSE 95 MG/DL (70-105); MAGNESIUM 2.1 MG/DL (1.8-2.4); POTASSIUM 4.4 MMOL/L (3.6-5.0); SODIUM 139 MMOL/L (135-145); TOTAL PROTEIN 8.4 GM/DL (6.4-8.2)
[2018-07-11 14:16] LABS: MYOGLOBIN SERUM 43.1 NG/ML (10.0-92.0)
--- NOTE | 2018-07-11 14:18 | Diagnostic Imaging Report ---
PATIENT HISTORY: Chest pain. TECHNIQUE: Single view of the chest. COMPARISON: 04/11/2018. FINDINGS: Lung volumes are normal. No focal consolidation is seen. There is no pleural effusion or pneumothorax. The cardiac silhouette is normal in size. IMPRESSION: No acute pulmonary abnormality seen. Dictated by: Dictated on workstation # [id number]
[2018-07-11] MEDS ORDERED: morphine INJ 10 MG/ML 1ML (SYR OR VIAL) IVP STA (14:34)
--- NOTE | 2018-07-11 15:19 | ED Chest Pain ---
General Chief Complaint: Chest Pain Stated Complaint: CHEST PAIN Nursing Triage Note: pt presents to ed with complaints of cp starting 0930 this am. pt reports l sided jaw and shoulder pain. Pt reports he got his radiation treatment at the cancer center then walked over to ed to be checked out. Nursing Sepsis Screen: No Definite Risk Source: patient Exam Limitations: no limitations History of Present Illness Date Seen by Provider: Jul 11, 2018 Time Seen by Provider: 13:38 Initial Comments Here with report of left-sided chest pain that goes to the left side and left shoulder. He was at the cancer center this morning and was receiving his radiation treatment for prostate cancer. He started having chest pain at about 930 this morning. It has continued since. He tried to monitor her home and that did not help. Also complains of headache and high blood pressure. This is not an uncommon phenomenon with him and he has headaches frequently. Denies nausea or vomiting. Denies breathing problems. Timing/Duration: 4-6 hours, constant Severity/Quality: moderate, aching, pressure Location: central Radiation: neck, shoulders, back Activities at Onset: none Prior CP/Workup: cardiac cath, echocardiography, stress test Modifying Factors: improves with rest ASA po RN UROLOGY: No NTG SL RN UROLOGY: No Associated Symptoms: No abdominal pain; back pain; No fever/chills, No nausea/ vomiting, No shortness of breath, No weakness Allergies and Home Medications Allergies Coded Allergies: penicillin G (Verified Allergy, Severe, SWELLING, 12/22/17) Home Medications Alprazolam 0.25 Mg Tablet, 0.25 MG PO BID PRN for ANXIETY, (Reported) Amlodipine Besylate 10 Mg Tablet, 10 MG PO DAILY, (Reported) Atorvastatin Calcium 10 Mg Tablet, 10 MG PO HS, (Reported) Bupropion HCl 150 Mg Tablet.er, 150 MG PO BID, (Reported) Buspirone HCl 15 Mg Tablet, 15 MG PO TID, (Reported) Carvedilol 6.25 Mg Tablet, 6.25 MG PO BID, (Reported) Clonidine HCl 0.1 Mg Tablet, 0.1 MG PO TID, (Reported) Hydrocodone/Acetaminophen 1 Each Tablet, 1-2 EACH PO Q6H PRN for PAIN-MODERATE Prescribed by: JULISSA HERNÁNDEZ on 04/25/18 1202 Losartan Potassium 100 Mg Tablet, 100 MG PO HS, (Reported) Nitroglycerin 0.4 Mg Tab.subl, 0.4 MG SL UD PRN for CHEST PAIN, (Reported) PLACE 1 TAB UNDER TONGUE NEEDED FOR CHEST PAIN; IF PAIN REMAINS AFTER 5 MINUTES, CALL 911 [place]-3 Fatty Acids/Fish Oil 1 Each Capsule, 1,000 MG PO BID, (Reported) Ondansetron 4 Mg Tab.rapdis, 4 MG SL Q4H PRN for NAUSEA/VOMITING-1ST LINE Prescribed by: GUILLERMO MONK on 04/22/182127 Sertraline HCl 100 Mg Tablet, 100 MG PO DAILY, (Reported) Sertraline HCl 25 Mg Tablet, 25 MG PO DAILY, (Reported) TAKES ALONG WITH 100MG TABLET Sulfamethoxazole/Trimethoprim 1 Each Tablet, 1 EACH PO BID Prescribed by: GUILLERMO MONK on 04/22/182127 Tamsulosin HCl 0.4 Mg Cap.er.24h, 0.4 MG PO DAILY@1800, (Reported) Patient Home Medication List Home Medication List Reviewed: Yes Review of Systems Review of Systems Constitutional: see HPI; No chills, No fever EENTM: No Symptoms Reported Respiratory: Denies Cough, Denies Shortness of Air Cardiovascular: Chest Pain; Denies Edema Gastrointestinal: Denies Nausea, Denies Vomiting Genitourinary: No Symptoms Reported Musculoskeletal: see HPI, back pain, joint pain Skin: No change in color, No lesions Psychiatric/Neurological: Headache; Denies Weakness Endocrine: No Symptoms Reported All Other Systems Reviewed Negative Unless Noted: Yes Past [id number] Hx Past Med/Social Hx: Reviewed Nursing Past Med/Soc Hx Patient Social History Alcohol Use: Denies Use Number of Drinks Today: AA Alcohol Beverage of Choice: Beer Recreational Drug Use: No Smoking Status: Former Smoker Type Used: Cigarettes Former Smoker, Quit: Aug 24, 2016 2nd Hand Smoke Exposure: Yes Recent Foreign Travel: No Contact w/Someone Who Travel: No Recent Infectious Disease Expo: No Recent Hopitalizations: No (03/31/18, RIGHT INGUINAL HERNIA REPAIR) Physical Abuse: No Sexual Abuse: No Mistreated: No Fear: No Immunizations Up To Date Tetanus Booster (TDap): Less than 5yrs PED Vaccines UTD: No Date of Influenza Vaccine: Jul 28, 2017 Seasonal Allergies Seasonal Allergies: No Past Medical History Surgeries: Yes (umb hernia, R thumb, ing hernia, 3 stents and baloon) Abdominal, Coronary Stent, Orthopedic Respiratory: Yes Sleep Apnea Currently Using CPAP: No Currently Using BIPAP: No Cardiac: Yes (BALLOON ON 07/28/17 ET STENT) Coronary Artery Disease, Deep Vein Thrombosis, Heart Attack, High Cholesterol, Hypertension Neurological: Yes (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) Headaches /Migraines, TIA Reproductive Disorders: No Sexually Transmitted Disease: No Genitourinary: Yes (recurrent urinary tract infections, prostate ca) Prostate Problems, Kidney Stones, UTI-Chronic Gastrointestinal: Yes Gastroesophageal Reflux, Hiatal Hernia, Ulcer Musculoskeletal: Yes Arthritis, Rheumatoid Arthritis, Back Injury, Chronic Back Pain, Fractures Endocrine: No HEENT: No Eye Injury Loss of Vision: Denies Hearing Impairment: Denies Cancer: Yes Prostate What Type of Treatment Did You: Radiation Psychosocial: Yes Anxiety, Depression Integumentary: No Blood Disorders: No Adverse Reaction/Blood Tranf: No Family Medical History Reviewed Nursing Family Hx Arthritis 19 MOTHER TOP STITCHER G8 SISTER FH: COPD (chronic obstructive pulmonary disease) Hypercholesterolemia 19 MOTHER Hypertension 19 MOTHER Heart Disease, Hypertension Physical Exam Vital Signs Vital Signs - First Documented 07/11/18 07/11/18 13:42 13:43 Temp 97.9 Pulse 66 Resp 20 B/P (MAP) 192/105 (134) Pulse Ox 100 O2 Delivery Nasal Cannula O2 Flow Rate 2.00 Capillary Refill : Less Than 3 Seconds Height, Weight, BMI Height: 5'9.00" Weight: 182lbs. 0.0oz. 82.876765cr; 28.1 BMI Method:Stated General Appearance: No Apparent Distress, WD/WN HEENT: PERRL/EOMI, Pharynx Normal Neck: Non Tender, Supple Respiratory: Lungs Clear, Normal Breath Sounds Cardiovascular: Regular Rate, Rhythm, No Murmur Gastrointestinal: Non Tender, Soft Extremity: Normal Range of Motion, Non Tender Neurologic/Psychiatric: Alert, Oriented x3 Skin: Normal Color, Warm/Dry Progress/Results/Core Measures Results/Orders Lab Results Laboratory Tests Test 07/11/18 13:37 07/11/18 16:02 Range/Units White Blood Count 3.2 L 4.3-11.0 10^3/uL Red Blood Count 4.40 4.35-5.85 10^6/uL Hemoglobin 10.1 L 13.3-17.7 G/DL Hematocrit 33 L 40-54 % Mean Corpuscular Volume 75 L 80-99 FL Mean Corpuscular Hemoglobin 23 L 25-34 PG Mean Corpuscular Hemoglobin Concent 31 L 32-36 G/DL Red Cell Distribution Width 20.7 H 10.0-14.5 % Platelet Count 295 130-400 10^3/uL Mean Platelet Volume 9.9 7.4-10.4 FL Neutrophils (%) (Auto) 59 42-75 % Lymphocytes (%) (Auto) 18 12-44 % Monocytes (%) (Auto) 12 0-12 % Eosinophils (%) (Auto) 10 0-10 % Basophils (%) (Auto) 1 0-10 % Neutrophils # (Auto) 1.9 1.8-7.8 X 10^3 Lymphocytes # (Auto) 0.6 L 1.0-4.0 X 10^3 Monocytes # (Auto) 0.4 0.0-1.0 X 10^3 Eosinophils # (Auto) 0.3 0.0-0.3 10^3/uL Basophils # (Auto) 0.0 0.0-0.1 10^3/uL Prothrombin Time 12.1 L 12.2-14.7 SEC INR Comment 0.9 0.8-1.4 Activated Partial Thromboplast Time 26 24-35 SEC Sodium Level 139 135-145 MMOL/L Potassium Level 4.4 3.6-5.0 MMOL/L Chloride Level 107 98-107 MMOL/L Carbon Dioxide Level 23 21-32 MMOL/L Anion Gap 9 5-14 MMOL/L Blood Urea Nitrogen 16 7-18 MG/DL Creatinine 1.46 H 0.60-1.30 MG/DL Estimat Glomerular Filtration Rate 50 BUN/Creatinine Ratio 11 Glucose Level 95 70-105 MG/DL Calcium Level 9.3 8.5-10.1 MG/DL Corrected Calcium 9.0 8.5-10.1 MG/DL Magnesium Level 2.1 1.8-2.4 MG/DL Total Bilirubin 0.3 0.1-1.0 MG/DL Aspartate Amino Transf (AST/SGOT) 27 5-34 U/L Alanine Aminotransferase (ALT/SGPT) 23 0-55 U/L Alkaline Phosphatase 130 40-136 U/L Myoglobin 43.1 40.9 10.0-92.0 NG/ML Troponin I < 0.028 < 0.028 <0.028 NG/ML Total Protein 8.4 H 6.4-8.2 GM/DL Albumin 4.4 3.2-4.5 GM/DL My Orders Orders - BRITNEY CEE MD Cbc With Automated Diff (07/11/18 13:37) Magnesium (07/11/18 13:37) Chest 1 View, Ap/Pa Only (07/11/18 13:37) Ekg Tracing (07/11/18 13:37) Cardiac Profile 1 (07/11/18 13:37) Comprehensive Metabolic Panel (07/11/18 13:37) Myoglobin Serum (07/11/18 13:37) Protime With Inr (07/11/18 13:37) Partial Thromboplastin Time (07/11/18 13:37) O2 (07/11/18 13:37) Monitor-Rhythm Ecg Trace Only (07/11/18 13:37) Lipid Panel (07/12/18 06:00) Aspirin Chewable Tablet (Baby Aspirin Ch (07/11/18 13:45) Saline Lock/Iv-Start (07/11/18 13:37) Morphine Injection (Morphine Injection (07/11/18 14:34) Troponin I (07/11/18 15:41) Myoglobin Serum (07/11/18 15:41) Ekg Tracing (07/11/18 15:41) Clonidine Tablet (Catapres Tablet) (07/11/18 16:00) Medications Given in ED Current Medications Medications Dose Ordered Sig/Mckenzie Route Start Time Stop Time Status Last Admin Dose Admin Aspirin 324 mg ONCE ONCE PO 07/11/18 13:45 07/11/18 13:46 DC 07/11/18 13:54 324 MG Clonidine HCl 0.1 mg ONCE ONCE PO 07/11/18 16:00 07/11/18 16:01 DC 07/11/18 16:05 0.1 MG Vital Signs/I&O 07/11/18 07/11/18 07/11/18 13:42 13:43 13:43 Temp 97.9 Pulse 66 Resp 20 B/P (MAP) 192/105 (134) Pulse Ox 100 97 O2 Delivery Nasal Cannula Nasal Cannula Nasal Cannula O2 Flow Rate 2.00 2.0 2.00 Blood Pressure Mean: 134 Progress Progress Note : Progress Note Seen and evaluated. IV, labs, EKG and chest x-ray ordered. ASA 324 mg by mouth given. Morphine 5 mg IV for pain given. We skipped nitro that was not beneficial for him home. Monitor patient. 1515: No acute findings on labs. Pain is improved. Monitor patient. 1642: Repeat troponin and myoglobin completely as well as repeat EKG and shows no acute changes or findings. Patient is pain-free. Patient did receive clonidine. Discharged home with return precautions. Patient verbalize understanding instructions and agreement with plan. Initial ECG Impression Date: Jul 11, 2018 Initial ECG Impression Time: 13:28 Initial ECG Rate: 61 Initial ECG Rhythm: Normal Sinus Initial ECG Impression: Normal Comment Sinus rhythm with normal axis. No evidence of ST elevation [place]. Similar to previous of 04/11/18. Interpreted by me. EKG : EKG Time: 16:11 Rate: 52 Rhythm: Normal Sinus ECG Impression: Normal Comment Sinus rhythm unchanged from previous done earlier today. No evidence of ST elevation [place]. Normal axis. Interpreted by me. Diagnostic Imaging Diagonstic Imaging: Xray Plain Films/CT/US/NM/MRI: chest Comments [facility], [place] NAME: EZEQUIEL VITALE [facility] REC#: [id number] PT STATUS: REG ER : 1960 PHYSICIAN: BRITNEY CEE MD ADMIT DATE: 07/11/18/ER Draft Date of Exam:07/11/18 CHEST 1 VIEW, AP/PA ONLY PATIENT HISTORY: Chest pain. TECHNIQUE: Single view of the chest. COMPARISON: 04/11/2018. FINDINGS: Lung volumes are normal. No focal consolidation is seen. There is no pleural effusion or pneumothorax. The cardiac silhouette is normal in size. IMPRESSION: No acute pulmonary abnormality seen. Dictated on workstation # [id number] Dict: 07/11/18 1410 Trans: 07/11/18 1416 [facility] [id number] Interpreted by: CRISTHIAN CASTILLO MD Electronically signed by: Departure Impression Primary Impression: Chest pain Qualified Codes: R07.9 - Chest pain, unspecified Disposition: HOME, SELF-CARE Condition: Improved Departure-Patient Inst. Referrals: ANDRES RABAGO DO (PCP/Family) Primary Care Physician Patient Instructions: Chest Pain (DC) Add. Discharge Instructions: All discharge instructions reviewed with patient and/or family. Voiced understanding. Take medications as previously prescribed. Follow-up with your Dr. in a few days for recheck. Return for worse pain, fever, vomiting, weakness, breathing problems or other concerns as needed. BRITNEY CEE MD Jul 11, 2018 15:19
[2018-07-11] MEDS ORDERED: cloNIDine 0.1 MG (CATAPRES) TAB PO ONE (16:00)
[2018-07-11 16:31] LABS: MYOGLOBIN SERUM 40.9 NG/ML (10.0-92.0)
[2018-07-11 16:53] VITALS: BP 189/93
== END 2018-07-11 16:53 | disposition home or self-care (01) ==
LOC: EDUNIT# 13:19 → ER 13:20
DX: R07.89 Other chest pain (principal); C61 Malignant neoplasm of prostate; G47.30 Sleep apnea, unspecified; I25.10 Atherosclerotic heart disease of native coronary artery without angina pectoris; I25.2 Old myocardial infarction; E78.00 Pure hypercholesterolemia, unspecified; I10 Essential (primary) hypertension; M06.9 Rheumatoid arthritis, unspecified; F41.9 Anxiety disorder, unspecified; F32.9 Major depressive disorder, single episode, unspecified; G43.909 Migraine, unspecified, not intractable, without status migrainosus; Z87.442 Personal history of urinary calculi; Z87.440 Personal history of urinary (tract) infections; Z82.49 Family history of ischemic heart disease and other diseases of the circulatory system; Z86.73 Personal history of transient ischemic attack (TIA), and cerebral infarction without residual deficits; Z86.718 Personal history of other venous thrombosis and embolism; Z88.0 Allergy status to penicillin; Z92.21 Personal history of antineoplastic chemotherapy; Z87.891 Personal history of nicotine dependence; Z98.890 Other specified postprocedural states; Z95.5 Presence of coronary angioplasty implant and graft
CPT/HCPCS: 36415; 71045; 80053; 83735; 83874; 84484; 85025; 85610; 85730; 93005; 93041

== ENCOUNTER → 2018-07-16 | Emergency (ER) | payer SELFPAY ==
[~2018-07-16] MED LIST changes: +LEVO250T46 PO
--- OUTSIDE RECORDS SUMMARY | 2018-07-16 20:50 | XMS REPORT | Clinical Summary ---
Author Author [facility] Organization [facility] Address Unknown Phone Unavailable Care Team Providers Care Aircraft Structural Repairer Name Role Phone Leroy Lao MD [address] Hernandes DO PCP Source Comments Some departments are not documenting in the electronic medical record. If you do not see the information that you expected, contact Release of Information in the Health Information Management department at [phone] for further assistance in locating additional records.[facility] Allergies Comments Active Allergy Reactions Severity [...] 7 Coronary artery disease every 5 of [place] artery of minutes as [place] heart with stable needed for angina pectoris [...] Unstable angina 08/13/2016 Coronary artery disease of [place] artery of [place] heart with stable angina 08/09/2016 pectoris Overview: 07/29/16: heart cath ([address] [place], [place]) - total occlusion of the right [...] Taken Vital Sign Reading 05/16/2017 3:11 PM ENVIRONMENTAL EDUCATOR Blood Pressure 150/72 05/16/2017 3:11 PM ENVIRONMENTAL EDUCATOR Pulse 73 03/06/2017 1:42 PM CDT Temperature 36.8 C (98.2 F) - Respiratory Rate - 03/06/2017 1:42 PM CDT Oxygen Saturation 96% - Inhaled Oxygen - Concentration 05/16/2017 3:11 PM ENVIRONMENTAL EDUCATOR Weight 82.6 kg (182 lb) 05/16/2017 3:11 PM ENVIRONMENTAL EDUCATOR Height 175.3 cm (5' 9") 05/16/2017 3:11 PM ENVIRONMENTAL EDUCATOR Body Mass Index 26.88 Plan of Treatment [...] on file. For more information, please contact: [facility] [address] [place] [address] Date Inactivated Comments Code Status Date Activated [...]
== END | disposition left against medical advice (07) ==
LOC: EDUNIT# 20:45 → ER 20:46
DX: R30.0 Dysuria (principal); M54.5 Low back pain

== ENCOUNTER → 2018-07-19 | Emergency (ER) | payer SELFPAY ==
[~2018-07-19] VITALS: Ht 175.3 cm; Wt 82.6 kg
[~2018-07-19] MED LIST changes: +ANTACID SUSP 30 ML UDC (MYLANTA) PO ONE; +LEVOFLOXACIN 500 MG/100 ML IV 100 ML IV ONE; +LIDOCAINE 2% VISCOUS 15 ML UDC PO ONE; +NS IV 1000 ML 1,000 ML IV ONE
--- OUTSIDE RECORDS SUMMARY | 2018-07-19 14:08 | XMS REPORT | Clinical Summary ---
Author Author [facility] Organization [facility] Address Unknown Phone Unavailable Care Team Providers Care Medicine Tech Name Role Phone Leroy Lao MD [address] Hernandes DO PCP Source Comments Some departments are not documenting in the electronic medical record. If you do not see the information that you expected, contact Release of Information in the Health Information Management department at [phone] for further assistance in locating additional records.[facility] Allergies Comments Active Allergy Reactions Severity Noted [...] 7 Coronary artery disease every 5 of [place] artery of minutes as [place] heart with stable needed for angina pectoris [...] Unstable angina 08/13/2016 Coronary artery disease of [place] artery of [place] heart with stable angina 08/09/2016 pectoris Overview: 07/29/16: heart cath ([address] [place], [place]) - total occlusion of the right [...] Taken Vital Sign Reading 05/16/2017 3:11 PM INSTRUMENTATION AND CONTROL TECHNICIAN Blood Pressure 150/72 05/16/2017 3:11 PM INSTRUMENTATION AND CONTROL TECHNICIAN Pulse 73 03/06/2017 1:42 PM CDT Temperature 36.8 C (98.2 F) - Respiratory Rate - 03/06/2017 1:42 PM CDT Oxygen Saturation 96% - Inhaled Oxygen - Concentration 05/16/2017 3:11 PM INSTRUMENTATION AND CONTROL TECHNICIAN Weight 82.6 kg (182 lb) 05/16/2017 3:11 PM INSTRUMENTATION AND CONTROL TECHNICIAN Height 175.3 cm (5' 9") 05/16/2017 3:11 PM INSTRUMENTATION AND CONTROL TECHNICIAN Body Mass Index 26.88 Plan of Treatment [...] on file. For more information, please contact: [facility] [address] [place] [address] Date Inactivated Comments Code Status Date Activated [...]
--- NOTE | 2018-07-19 14:10 | NUR ---
DR APONTE NOTIFIED PT HAD ARRIVED.
[2018-07-19 14:37] LABS: BASOPHILS % (AUTO) 0 % (0-10); EOSINOPHILS # (AUTO) 0.2 10^3/uL (0.0-0.3); EOSINOPHILS % (AUTO) 4 % (0-10); HEMATOCRIT 30 % (40-54); HEMOGLOBIN 8.8 G/DL (13.3-17.7); LYMPHOCYTES # (AUTO) 0.4 X 10^3 (1.0-4.0); LYMPHOCYTES % (AUTO) 9 % (12-44); MEAN CORPUSCULAR HEMOGLOBIN 23 PG (25-34); MEAN CORPUSCULAR HGB CONC 30 G/DL (32-36); MEAN CORPUSCULAR VOLUME 78 FL (80-99); MEAN PLATELET VOLUME 9.1 FL (7.4-10.4); MONOCYTES # (AUTO) 0.6 X 10^3 (0.0-1.0); MONOCYTES % (AUTO) 12 % (0-12); NEUTROPHILS # (AUTO) 3.7 X 10^3 (1.8-7.8); NEUTROPHILS % (AUTO) 75 % (42-75); PLATELET COUNT 231 10^3/uL (130-400); RED CELL DISTRIBUTION WIDTH 20.8 % (10.0-14.5); WHITE BLOOD COUNT 4.9 10^3/uL (4.3-11.0)
[2018-07-19 14:57] VITALS: BP_SYST 105; BP_SYST 120; BP_SYST 134; BP_DIAS 69; BP_DIAS 79
--- NOTE | 2018-07-19 15:00 | NUR ---
PT COMPLAINS OF DIZZINESS WHEN HE STANDS.
[2018-07-19 15:02] LABS: ALANINE AMINOTRANSFERASE 55 U/L (0-55); ALBUMIN 3.9 GM/DL (3.2-4.5); ALKALINE PHOSPHATASE 182 U/L (40-136); BILIRUBIN,TOTAL 0.3 MG/DL (0.1-1.0); BUN/CREATININE RATIO 8; CALCIUM 9.3 MG/DL (8.5-10.1); CARBON DIOXIDE 25 MMOL/L (21-32); CHLORIDE 108 MMOL/L (98-107); CREATININE SERUM 1.89 MG/DL (0.60-1.30); GFR ESTIMATED 37; GLUCOSE 171 MG/DL (70-105); POTASSIUM 3.6 MMOL/L (3.6-5.0); SODIUM 141 MMOL/L (135-145); TOTAL PROTEIN 7.4 GM/DL (6.4-8.2)
[2018-07-19 16:12] LABS: CLARITY,URINE SLIGHTLY CLOUDY; COLOR,URINE AMBER; GLUCOSE, URINE (UA) NEGATIVE (NEGATIVE); KETONES,URINE NEGATIVE (NEGATIVE); LEUKOCYTE ESTERASE ,URINE NEGATIVE (NEGATIVE); NITRITE,URINE POSITIVE (NEGATIVE); PH,URINE 5 (5-9); PROTEIN,URINE 3+ (NEGATIVE); UROBILINOGEN,URINE 4 MG/DL (NORMAL)
[2018-07-19 16:19] LABS: BACTERIA,URINE MODERATE /HPF; SQUAMOUS EPITHELIAL CELL,UR RARE /HPF; WBC,URINE TNTC /HPF
--- NOTE | 2018-07-19 16:22 | Diagnostic Imaging Report ---
CLINICAL INDICATION: Patient with dizziness. COMPARISON: Ultrasound of the carotid arteries dated 01/29/2017. EXAM: Real-time carotid Doppler duplex imaging is performed bilaterally. Peak systolic velocity, ICA/CCA peak systolic ratio, spectral analysis, and vascular morphology are studied. FINDINGS: ARTERY VELOCITY Right Left CCA 1.34 m/s 1.81 m/s ICA 1.30 m/s 1.12 m/s ECA 1.19 m/s 1.22 m/s ICA/CCA 0.97 0.62 VERT.ART Antegrade Antegrade There is mild bilateral carotid artery atherosclerotic disease. There is again noted smooth plaque within the right common carotid artery which demonstrates less than 50% stenosis on grayscale imaging. IMPRESSION: 1: There is no grayscale or Doppler evidence of significant vascular stenosis. 2: There is no significant change to the smooth atherosclerotic plaque involving the right common carotid artery. Dictated by: Dictated on workstation # [id number]
[2018-07-19 16:26] LABS: AMPHETAMINE SCREEN, URINE NEGATIVE (NEGATIVE); BARBITURATE SCREEN URINE NEGATIVE (NEGATIVE); BENZODIAZEPINES SCREEN URINE POSITIVE (NEGATIVE); CANNABINOID SCREEN, URINE NEGATIVE (NEGATIVE); COCAINE SCREEN URINE NEGATIVE (NEGATIVE); METHADONE STAT NEGATIVE (NEGATIVE); METHAMPHETAMINE SCREEN URINE S NEGATIVE (NEGATIVE); OPIATE SCREEN URINE NEGATIVE (NEGATIVE); OXYCODONE STAT NEGATIVE (NEGATIVE); PROPOXYPHENE STAT NEGATIVE (NEGATIVE); TRICYCLIC ANTIDEPRESSANTS SCRE NEGATIVE (NEGATIVE)
--- NOTE | 2018-07-19 16:30 | Diagnostic Imaging Report ---
CLINICAL INDICATION: Patient with recurrent hernia repair of right groin area two weeks ago. EXAM: Limited and focused ultrasound of the right pelvis/groin region of concern. COMPARISON: CT scan of the abdomen and pelvis without contrast dated 04/22/2018. FINDINGS AND IMPRESSION: Focused ultrasound interrogation of the right lower pelvis/groin region of concern shows no significant abnormality. There is no ultrasound evidence of bowel herniation. Dictated by: Dictated on workstation # [id number]
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
--- NOTE | 2018-07-19 18:03 | NUR ---
WALKED WITH PT AROUND THE NURSES STATATION. PT BECAME A LITTLE UNSTEADY TWICE. WALKED BACK TO ROOM WITH PT.
--- NOTE | 2018-07-19 18:28 | NUR ---
STATES HE IS GOING TO TRY TO TALK PT INTO BEING ADMITTED.
--- NOTE | 2018-07-19 18:30 | NUR ---
[place] [employer] CONTACTED TO SEE IF THEY WOULD FOLLOW HIM HOME DUE TO DIZZINESS. DISPATCH STATES THEY WILL SEND SOMEONE TO TALK TO HIM.
[2018-07-19 18:34] VITALS: BP 148/83
--- NOTE | 2018-07-19 18:34 | NUR ---
PT SIGNED AMA FORM DUE TO HIM NOT WANTING TO BE ADMITTED. NOTIFIED HIM HE NEEDED TO STAY IN HIS ROOM UNTIL PD ARRIVED TO FOLLOW HIM HOME. PT VERBAILZED UNDERSTANDING.
--- NOTE | 2018-07-19 18:35 | NUR ---
[facility] ALVARADO HERE TALKING TO PT AT THIS TIME.
--- NOTE | 2018-07-19 18:36 | ED General ---
General Chief Complaint: Dizziness/Syncope Stated Complaint: DIZZINESS Nursing Triage Note: ARRIVED VIA WC FROM [facility] OFFICE WITH HIS STAFF. PT STATES HE HAS BEEN DIZZY X2 DAYS ET FELL YESTERDAY AND TODAY. DENIES HITTING HIS HEAD. Nursing Sepsis Screen: No Definite Risk Source of Information: Patient, Family, Other (Dr. Evans) History of Present Illness Date Seen by Provider: Jul 19, 2018 Time Seen by Provider: 14:05 Initial Comments This 57-year-old ambulatory man presents to the emergency room as directed by Dr. Evans due to concerns that were observed at his clinic. Patient was noted to be dizzy and slightly off balance. He also seemed a little confused. Patient was being seen at Dr. Evans's office for a follow-up on a right inguinal hernia repair. Dr. Evans noted a drop in blood pressure upon standing which may represent orthostasis. Patient reports he has been feeling dizzy, especially upon standing, for about one month. He is presently being treated for prostate cancer with radiation therapy. He denies any chest pain or shortness of breath. I later had a discussion with patient's significant other with patient's permission. She expressed concern about his symptoms and the fact that he has fallen 3 times this week. Patient admits to falling once last night and twice today. He denies any injury or striking his head. Symptoms have not changed since falling. Patient's significant other is also concerned about his compliance with medication regimens and is concerned that he has acquired clonazepam not prescribed to him. She reports he has a history of substance abuse problems. Patient's cognition seems to be a bit blunted and he seems to be generally weak without focal deficits. Dr. Evans requested an inguinal ultrasound be performed as he is assessed in the ER. Allergies and Home Medications Allergies Coded Allergies: penicillin G (Verified Allergy, Severe, SWELLING, 12/22/17) Home Medications Alprazolam 0.25 Mg Tablet, 0.25 MG PO BID PRN for ANXIETY, (Reported) Amlodipine Besylate 10 Mg Tablet, 10 MG PO DAILY, (Reported) Atorvastatin Calcium 10 Mg Tablet, 10 MG PO HS, (Reported) Bupropion HCl 150 Mg Tablet.er, 150 MG PO BID, (Reported) Buspirone HCl 15 Mg Tablet, 15 MG PO TID, (Reported) Carvedilol 6.25 Mg Tablet, 6.25 MG PO BID, (Reported) Clonidine HCl 0.1 Mg Tablet, 0.1 MG PO TID, (Reported) Hydrocodone/Acetaminophen 1 Each Tablet, 1-2 EACH PO Q6H PRN for PAIN-MODERATE Prescribed by: JULISSA HERNÁNDEZ on 04/25/18 1202 Levofloxacin 250 Mg Tablet, 250 MG PO DAILY Prescribed by: BILL HUERTA on 07/19/18 1836 Losartan Potassium 100 Mg Tablet, 100 MG PO HS, (Reported) Nitroglycerin 0.4 Mg Tab.subl, 0.4 MG SL UD PRN for CHEST PAIN, (Reported) PLACE 1 TAB UNDER TONGUE NEEDED FOR CHEST PAIN; IF PAIN REMAINS AFTER 5 MINUTES, CALL 911 [place]-3 Fatty Acids/Fish Oil 1 Each Capsule, 1,000 MG PO BID, (Reported) Ondansetron 4 Mg Tab.rapdis, 4 MG SL Q4H PRN for NAUSEA/VOMITING-1ST LINE Prescribed by: GUILLERMO MONK on 04/22/182127 Sertraline HCl 100 Mg Tablet, 100 MG PO DAILY, (Reported) Sertraline HCl 25 Mg Tablet, 25 MG PO DAILY, (Reported) TAKES ALONG WITH 100MG TABLET Sulfamethoxazole/Trimethoprim 1 Each Tablet, 1 EACH PO BID Prescribed by: GUILLERMO MONK on 04/22/182127 Tamsulosin HCl 0.4 Mg Cap.er.24h, 0.4 MG PO DAILY@1800, (Reported) Patient Home Medication List Home Medication List Reviewed: Yes Review of Systems Review of Systems Constitutional: see HPI EENTM: no symptoms reported Respiratory: no symptoms reported Cardiovascular: see HPI Gastrointestinal: see HPI Genitourinary: see HPI Musculoskeletal: no symptoms reported Skin: no symptoms reported Psychiatric/Neurological: See HPI Hematologic/Lymphatic: No Symptoms Reported Immunological/Allergic: see HPI Past Kmwfmrl-Qnrkbh-Noexxi Hx Past Med/Social Hx: Reviewed and Corrections made Patient Social History Alcohol Use: Denies Use Number of Drinks Today: AA Alcohol Beverage of Choice: Beer Recreational Drug Use: No Smoking Status: Former Smoker Type Used: Cigarettes Former Smoker, Quit: Aug 24, 2016 2nd Hand Smoke Exposure: Yes Recent Foreign Travel: No Contact w/Someone Who Travel: No Recent Infectious Disease Expo: No Recent Hopitalizations: No (03/31/18, RIGHT INGUINAL HERNIA REPAIR) Immunizations Up To Date Tetanus Booster (TDap): Less than 5yrs PED Vaccines UTD: No Date of Influenza Vaccine: Jul 28, 2017 Seasonal Allergies Seasonal Allergies: No Past Medical History Surgeries: Yes (umb hernia, R thumb, ing hernia, 3 stents and baloon) Abdominal, Coronary Stent, Orthopedic Respiratory: Yes Sleep Apnea Currently Using CPAP: No Currently Using BIPAP: No Cardiac: Yes (BALLOON ON 07/28/17 ET STENT) Coronary Artery Disease, Deep Vein Thrombosis, Heart Attack, High Cholesterol, Hypertension Neurological: Yes (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) Headaches /Migraines, TIA Reproductive Disorders: No Sexually Transmitted Disease: No Genitourinary: Yes (recurrent urinary tract infections, prostate ca) Prostate Problems, Kidney Stones, UTI-Chronic Gastrointestinal: Yes Gastroesophageal Reflux, Hiatal Hernia, Ulcer Musculoskeletal: Yes Arthritis, Rheumatoid Arthritis, Back Injury, Chronic Back Pain, Fractures Endocrine: No HEENT: No Eye Injury Loss of Vision: Denies Hearing Impairment: Denies Cancer: Yes Prostate Did You Recieve Any Treatments: Yes What Type of Treatment Did You: Radiation Psychosocial: Yes (History of illicit and prescription drug abuse) Anxiety, Depression Integumentary: No Blood Disorders: No Adverse Reaction/Blood Tranf: No Family Medical History Arthritis 19 MOTHER RECEIVER BULK SYSTEM G8 SISTER FH: COPD (chronic obstructive pulmonary disease) Hypercholesterolemia 19 MOTHER Hypertension 19 MOTHER Heart Disease, Hypertension Physical Exam Vital Signs Vital Signs - First Documented 07/19/18 14:03 Temp 98.0 Pulse 62 Resp 16 B/P (MAP) 133/73 (93) Pulse Ox 94 O2 Delivery Room Air Capillary Refill : Less Than 3 Seconds Height, Weight, BMI Height: 5'9.00" Weight: 182lbs. 0.0oz. 82.558819th; 28.1 BMI Method:Stated General Appearance: No Apparent Distress, WD/WN HEENT: PERRL/EOMI, Normal ENT Inspection, Pharynx Normal Neck: Normal Inspection Respiratory: Lungs Clear, Normal Breath Sounds, No Accessory Muscle Use, No Respiratory Distress Cardiovascular: Regular Rate, Rhythm, No Edema, No Murmur Gastrointestinal: Normal Bowel Sounds, Soft, Tenderness (Mild tenderness at the site of right inguinal hernia repair) Extremity: Normal Inspection, No Pedal Edema Neurologic/Psychiatric: Alert, Oriented x3, No Motor/Sensory Deficits, radiology ct technologist II- XII Norm as Tested, Other (Affect flattened and cognition dulled but he is alert and oriented. Finger to nose and heel to young normal. No focal deficits) Skin: Normal Color, Warm/Dry Progress/Results/Core Measures Suspected Sepsis Recent Fever Within 48 Hours: No Infection Criteria Present: None New/Unexplained Altered Menta: No Sepsis Screen: No Definite Risk SIRS Temperature:98.0 Pulse: 67 Respiratory Rate: 16 Laboratory Tests 07/19/18 14:09: White Blood Count 4.9 Blood Pressure 134 /69 Mean: 90 Laboratory Tests 07/19/18 14:09: Creatinine 1.89H, Platelet Count 231, Total Bilirubin 0.3 Results/Orders Lab Results Laboratory Tests Test 07/19/18 14:09 07/19/18 16:00 Range/Units White Blood Count 4.9 4.3-11.0 10^3/uL Red Blood Count 3.83 L 4.35-5.85 10^6/uL Hemoglobin 8.8 L 13.3-17.7 G/DL Hematocrit 30 L 40-54 % Mean Corpuscular Volume 78 L 80-99 FL Mean Corpuscular Hemoglobin 23 L 25-34 PG Mean Corpuscular Hemoglobin Concent 30 L 32-36 G/DL Red Cell Distribution Width 20.8 H 10.0-14.5 % Platelet Count 231 130-400 10^3/uL Mean Platelet Volume 9.1 7.4-10.4 FL Neutrophils (%) (Auto) 75 42-75 % Lymphocytes (%) (Auto) 9 L 12-44 % Monocytes (%) (Auto) 12 0-12 % Eosinophils (%) (Auto) 4 0-10 % Basophils (%) (Auto) 0 0-10 % Neutrophils # (Auto) 3.7 1.8-7.8 X 10^3 Lymphocytes # (Auto) 0.4 L 1.0-4.0 X 10^3 Monocytes # (Auto) 0.6 0.0-1.0 X 10^3 Eosinophils # (Auto) 0.2 0.0-0.3 10^3/uL Basophils # (Auto) 0.0 0.0-0.1 10^3/uL Sodium Level 141 135-145 MMOL/L Potassium Level 3.6 3.6-5.0 MMOL/L Chloride Level 108 H 98-107 MMOL/L Carbon Dioxide Level 25 21-32 MMOL/L Anion Gap 8 5-14 MMOL/L Blood Urea Nitrogen 15 7-18 MG/DL Creatinine 1.89 H 0.60-1.30 MG/DL Estimat Glomerular Filtration Rate 37 BUN/Creatinine Ratio 8 Glucose Level 171 H 70-105 MG/DL Calcium Level 9.3 8.5-10.1 MG/DL Corrected Calcium 9.4 8.5-10.1 MG/DL Magnesium Level 2.0 1.8-2.4 MG/DL Total Bilirubin 0.3 0.1-1.0 MG/DL Aspartate Amino Transf (AST/SGOT) 34 5-34 U/L Alanine Aminotransferase (ALT/SGPT) 55 0-55 U/L Alkaline Phosphatase 182 H 40-136 U/L Troponin I < 0.028 <0.028 NG/ML Total Protein 7.4 6.4-8.2 GM/DL Albumin 3.9 3.2-4.5 GM/DL Serum Alcohol < 10 <10 MG/DL Urine Color DOMITILA H Urine Clarity SLIGHTLY CLOUDY Urine pH 5 5-9 Urine Specific [place] 1.025 H 1.016-1.022 Urine Protein 3+ H NEGATIVE Urine Glucose (UA) NEGATIVE NEGATIVE Urine Ketones NEGATIVE NEGATIVE Urine Nitrite POSITIVE H NEGATIVE Urine Bilirubin 3+ H NEGATIVE Urine Urobilinogen 4 H NORMAL MG/DL Urine Leukocyte Esterase NEGATIVE NEGATIVE Urine RBC (Auto) 1+ H NEGATIVE Urine RBC 2-5 H /HPF Urine WBC TNTC H /HPF Urine Squamous Epithelial Cells RARE /HPF Urine Renal Epithelial Cells 2-5 /HPF Urine Crystals NONE /LPF Urine Bacteria MODERATE H /HPF Urine Casts NONE /LPF Urine Mucus NEGATIVE /LPF Urine Culture Indicated YES Urine Opiates Screen NEGATIVE NEGATIVE Urine Oxycodone Screen NEGATIVE NEGATIVE Urine Methadone Screen NEGATIVE NEGATIVE Urine Propoxyphene Screen NEGATIVE NEGATIVE Urine Barbiturates Screen NEGATIVE NEGATIVE Ur Tricyclic Antidepressants Screen NEGATIVE NEGATIVE Urine Phencyclidine Screen NEGATIVE NEGATIVE Urine Amphetamines Screen NEGATIVE NEGATIVE Urine Methamphetamines Screen NEGATIVE NEGATIVE Urine Benzodiazepines Screen POSITIVE H NEGATIVE Urine Cocaine Screen NEGATIVE NEGATIVE Urine Cannabinoids Screen NEGATIVE NEGATIVE My Orders Orders - BILL APONTE MD Alcohol (07/19/18 14:23) Cbc With Automated Diff (07/19/18 14:23) Comprehensive Metabolic Panel (07/19/18 14:23) Drug Screen Stat (Urine) (07/19/18 14:23) Magnesium (07/19/18 14:23) Troponin I (07/19/18 14:23) Ua Culture If Indicated (07/19/18 14:23) Accucheck Stat ONCE (07/19/18 14:23) Saline Lock/Iv-Start (07/19/18 14:23) Ekg Tracing (07/19/18 14:23) Monitor-Rhythm Ecg Trace Only (07/19/18 14:23) Saline Lock/Iv-Start (07/19/18 14:35) Ns Iv 1000 Ml (Sodium Chloride 0.9%) (07/19/18 14:35) Us Abdomen Limited [id number] (07/19/18 14:36) Us Carotid Ade Complete [id number] (07/19/18 14:36) Orthostatic Vital Signs (Adult (07/19/18 14:37) Urine Culture (07/19/18 16:00) Ns Iv 1000 Ml (Sodium Chloride 0.9%) (07/19/18 16:30) Levofloxacin 500 Mg/100 Ml Iv (Levaquin (07/19/18 17:00) Lidocaine 2% Viscous 15 Ml (Xylocaine Vi (07/19/18 17:15) Antacid Suspension (Mylanta Suspension (07/19/18 17:15) Medications Given in ED Current Medications Medications Dose Ordered Sig/Mckenzie Route Start Time Stop Time Status Last Admin Dose Admin Al Hydrox/Mg Hydrox/Simethicone 30 ml ONCE ONCE PO 07/19/18 17:15 07/19/18 17:16 DC 07/19/18 17:18 30 ML Levofloxacin/ Dextrose 100 ml @ 100 mls/hr ONCE ONCE IV 07/19/18 17:00 07/19/18 17:59 DC 07/19/18 17:04 100 MLS/HR Lidocaine HCl 15 ml ONCE ONCE PO 07/19/18 17:15 07/19/18 17:16 DC 07/19/18 17:18 15 ML Sodium Chloride 1,000 ml @ 0 mls/hr Q0M ONCE IV 07/19/18 14:35 07/19/18 14:36 DC 07/19/18 14:55 1,000 MLS/HR Sodium Chloride 1,000 ml @ 0 mls/hr Q0M ONCE IV 07/19/18 16:30 07/19/18 16:34 DC 07/19/18 17:03 1,000 MLS/HR Vital Signs/I&O 07/19/18 07/19/18 07/19/18 14:03 14:57 18:34 Temp 98.0 Pulse 62 67 72 67 69 Resp 16 11 B/P (MAP) 133/73 (93) 134/69 (90) 148/83 (104) 120/79 (93) 105/69 (81) Pulse Ox 94 97 O2 Delivery Room Air Room Air Capillary Refill : Less Than 3 Seconds Blood Pressure Mean: 90 Progress Note : Progress Note Patient had a mild bump in his creatinine which is chronically elevated. He was also found to have urinary tract infection. Levaquin was administered by IV route based on prior culture results. 2 L of IV fluids were infused. Patient initially had some orthostasis with about a 30 mmHg drop upon standing. This resolved after IV fluids were administered. Repeat systolic blood pressure standing after administration of fluids was 148. Although patient was still experiencing some disequilibrium upon first arising, this resolved as he walked. He was able to walk up and down the unit without assistance. After talking with patient's significant other, I suggested admission for observation overnight to ensure patient's safety, especially given his multiple falls recently and his admission to using clonazepam not prescribed to him. Patient declined admission. He intended to drive home. He signed AMA papers and agreed to have [facility] [place] following the home for safety reasons. A prescription for Levaquin was provided. See discharge instructions. ECG Initial ECG Impression Date: Jul 19, 2018 Initial ECG Impression Time: 14:15 Initial ECG Rate: 63 Initial ECG Rhythm: Normal Sinus Initial ECG Intervals: Normal Initial ECG Impression: Normal Comment Normal sinus rhythm with no ST elevation or depression. No abnormal intervals or axis deviation. Diagnostic Imaging Diagonstic Imaging: Ultrasound Plain Films/CT/US/NM/MRI: other (Carotid arteries) Comments Carotid ultrasound discussed with geothermal field technician and report reviewed. See report below: NAME: EZEQUIEL VITALE [employer] REC#: [id number] PT STATUS: REG ER : 1960 PHYSICIAN: BILL APONTE MD ADMIT DATE: 07/19/18/ER Signed Date of Exam: 07/19/18 US CAROTID ADE COMPLETE [id number] CLINICAL INDICATION: Patient with dizziness. COMPARISON: Ultrasound of the carotid arteries dated 01/29/2017. EXAM: Real-time carotid Doppler duplex imaging is performed bilaterally. Peak systolic velocity, ICA/CCA peak systolic ratio, spectral analysis, and vascular morphology are studied. FINDINGS: ARTERY VELOCITY Right Left CCA 1.34 m/s 1.81 m/s ICA 1.30 m/s 1.12 m/s ECA 1.19 m/s 1.22 m/s ICA/CCA 0.97 0.62 VERT.ART Antegrade Antegrade There is mild bilateral carotid artery atherosclerotic disease. There is again noted smooth plaque within the right common carotid artery which demonstrates less than 50% stenosis on grayscale imaging. IMPRESSION: 1: There is no grayscale or Doppler evidence of significant vascular stenosis. 2: There is no significant change to the smooth atherosclerotic plaque involving the right common carotid artery. Dictated by: Dictated on workstation # [id number] Dict: 07/19/18 1615 Trans: 07/19/181703 Interpreted by: REENA GLEZ MD Electronically signed by: REENA GLEZ MD 07/19/181703 Diagonstic Imaging: Ultrasound Plain Films/CT/US/NM/MRI: abdomen Comments NAME: EZEQUIEL VITALE Rosey [employer] REC#: [id number] PT STATUS: REG ER : 1960 PHYSICIAN: BILL APONTE MD ADMIT DATE: 07/19/18/ER Signed Date of Exam: 07/19/18 US ABDOMEN LIMITED [id number] CLINICAL INDICATION: Patient with recurrent hernia repair of right groin area two weeks ago. EXAM: Limited and focused ultrasound of the right pelvis/groin region of concern. COMPARISON: CT scan of the abdomen and pelvis without contrast dated 04/22/2018. FINDINGS AND IMPRESSION: Focused ultrasound interrogation of the right lower pelvis/groin region of concern shows no significant abnormality. There is no ultrasound evidence of bowel herniation. Dictated by: Dictated on workstation # [id number] Dict: 07/19/18 1619 Trans: 07/19/181703 Interpreted by: REENA GLEZ MD Electronically signed by: REENA GLEZ MD 01/30/19 1704 Departure Impression Primary Impression: Urinary tract infection Qualified Codes: N39.0 - Urinary tract infection, site not specified Additional Impressions: Hypovolemia Dizziness Chronic renal failure Qualified Codes: N18.9 - Chronic kidney disease, unspecified Disposition: HOME, SELF-CARE Condition: Improved Departure-Patient Inst. Referrals: ANDRES RABAGO DO (PCP/Family) Primary Care Physician Patient Instructions: Urinary Tract Infections in Adults Add. Discharge Instructions: Complete your antibiotics as prescribed. Follow-up with your primary care provider soon as possible. DO NOT TAKE ANY PRESCRIPTION MEDICATIONS NOT PRESCRIBED TO YOU. Do not get up and walk without assistance. Consider obtaining a walker to assist with balance. Drink plenty of clear liquids to stay well-hydrated. All discharge instructions reviewed with patient and/or family. Voiced understanding. Scripts Levofloxacin (Levofloxacin) 250 Mg Tablet 250 MG PO DAILY, #5 TAB Prov: BILL APONTE MD 07/19/18 Copy Copies To 1: BEN ENGLAND MD Copies To 2: ANDRES RABAGO JOSHUA T MD Jul 19, 2018 18:36
[2018-07-20 09:51] LABS: BILIRUBIN,URINE 3+ (NEGATIVE)
== END | disposition home or self-care (01) ==
LOC: EDUNIT# 14:03 → ER 14:04
DX: N39.0 Urinary tract infection, site not specified (principal); R42 Dizziness and giddiness; N18.9 Chronic kidney disease, unspecified; E86.1 Hypovolemia; G47.30 Sleep apnea, unspecified; I25.10 Atherosclerotic heart disease of native coronary artery without angina pectoris; I25.2 Old myocardial infarction; E78.00 Pure hypercholesterolemia, unspecified; I10 Essential (primary) hypertension; G40.909 Epilepsy, unspecified, not intractable, without status epilepticus; K21.9 Gastro-esophageal reflux disease without esophagitis; M06.9 Rheumatoid arthritis, unspecified; F41.9 Anxiety disorder, unspecified; F32.9 Major depressive disorder, single episode, unspecified; Z82.49 Family history of ischemic heart disease and other diseases of the circulatory system; Z85.46 Personal history of malignant neoplasm of prostate; Z87.440 Personal history of urinary (tract) infections; Z86.73 Personal history of transient ischemic attack (TIA), and cerebral infarction without residual deficits; Z86.718 Personal history of other venous thrombosis and embolism; Z88.0 Allergy status to penicillin; Z87.891 Personal history of nicotine dependence; Z98.890 Other specified postprocedural states; Z95.5 Presence of coronary angioplasty implant and graft
CPT/HCPCS: 36415; 76705; 80053; 80306; 80320; 81000; 83735; 84484; 85025; 87077; 87088; 87186; 93005; 93041; 93880

== ENCOUNTER 2018-08-03 12:32 | Outpatient (RCR) | payer OTHER ==
[~2018-08-03 12:32] MED LIST changes: -ANTACID SUSP 30 ML UDC (MYLANTA) PO ONE; -LEVOFLOXACIN 500 MG/100 ML IV 100 ML IV ONE; -LIDOCAINE 2% VISCOUS 15 ML UDC PO ONE; -NS IV 1000 ML 1,000 ML IV ONE
[2018-08-11] MEDS ORDERED: SULF1TAB35 PO (19:32)
== END 2018-08-20 | disposition home or self-care (01) ==
LOC: ONC 12:32
PROVIDERS: ATTEND Radiology Radiation Oncology
DX: Z51.0 Encounter for antineoplastic radiation therapy (principal); C61 Malignant neoplasm of prostate
CPT/HCPCS: 77300; 77301; 77334; 77336; 77338; 77385

== ENCOUNTER 2018-08-11 17:30 | Emergency (ER) | payer SELFPAY ==
[~2018-08-11] VITALS: Ht 175.3 cm; Wt 87.1 kg
--- OUTSIDE RECORDS SUMMARY | 2018-08-11 17:38 | XMS REPORT | Clinical Summary ---
Author Author [facility] Organization [facility] Address Unknown Phone Unavailable Care Team Providers Care Surplus Property Disposal Agent Name Role Phone Leroy Lao MD [address] Hernandes DO PCP Source Comments Some departments are not documenting in the electronic medical record. If you do not see the information that you expected, contact Release of Information in the Health Information Management department at [phone] for further assistance in locating additional records.[facility] Allergies Comments Active Allergy Reactions Severity [...] 7 Coronary artery disease every 5 of [place] artery of minutes as [place] heart with stable needed for angina pectoris [...] Unstable angina 08/13/2016 Coronary artery disease of [place] artery of [place] heart with stable angina 08/09/2016 pectoris Overview: 07/29/16: heart cath ([place]ia [place], [place]) - total occlusion of the right [...] TIA (transient ischemic attack) 01/12/2017 01/14/2017 Encounters Care Team Description Date Type Specialty David Simms MD Medication Refill 07/31/2018 Refill Cardiology from Last 3 Months Family History Medical [...] Taken Vital Sign Reading 05/16/2017 3:11 PM [employer] Blood Pressure 150/72 05/16/2017 3:11 PM [employer] Pulse 73 03/06/2017 1:42 PM CDT Temperature 36.8 C (98.2 F) - Respiratory Rate - 03/06/2017 1:42 PM CDT Oxygen Saturation 96% - Inhaled Oxygen - Concentration 05/16/2017 3:11 PM [employer] Weight 82.6 kg (182 lb) 05/16/2017 3:11 PM [employer] Height 175.3 cm (5' 9") 05/16/2017 3:11 PM [employer]PER[employer] Body Mass Index 26.88 Plan of Treatment [...] on file. For more information, please contact: [facility] [address] [place] [address] Date Inactivated Comments Code Status Date Activated [...]
--- OUTSIDE RECORDS SUMMARY | 2018-08-11 17:38 | XMS REPORT | Encounter Summary ---
Author Author [facility] Organization [facility] Address Unknown Phone Unavailable Care Team Providers Care Pt Skilled Name Role Phone Leroy Lao MD [address] Hernandes DO PCP Reason for Visit * Reason Comments Medication Refill Encounter Details Care Team Description Date Type Department David Simms MD [address] [facility] [place], [place] [id number] Medication Refill 07/31/2018 Refill Cardiovascular Medicine [place] [address] [address] [place], [place] [id number] Social History Date Tobacco Use Types Packs/Day Years Used Current Every Day Smoker Cigarettes Alcohol Use Drinks/Week oz/Week Comments Yes 0 Standard 0.0 drinks or equivalent Sex Assigned at Date Recorded Not on file Industry Job Start Date Occupation Not on file Not on file Not on file Travel End Travel History Travel Start No recent travel history available. as of this encounter Functional Status Date of Assessment Functional Status Response 03/06/2017 Does the patient have a hearing impairment: No as of this encounter Plan of Treatment Not on fileas of this encounter Visit Diagnoses Not on filein this encounter
[2018-08-11] MEDS ORDERED: cloNIDine 0.2 MG (CATAPRES) TAB PO ONE (17:45)
[2018-08-11] MEDS ORDERED: hydrALAZINE (APESOLINE) 20 MG/ML VIAL IV ONE (17:45)
[2018-08-11] MEDS ORDERED: morphine INJ 10 MG/ML 1ML (SYR OR VIAL) IVP ONE (17:45)
[2018-08-11] MEDS ORDERED: ASPIRIN 81 MG CHEW (CHILDREN'S ASA) PO ONE (17:45)
[2018-08-11 18:00] LABS: BASOPHILS % (AUTO) 1 % (0-10); EOSINOPHILS # (AUTO) 0.2 10^3/uL (0.0-0.3); EOSINOPHILS % (AUTO) 7 % (0-10); HEMATOCRIT 30 % (40-54); HEMOGLOBIN 9.1 G/DL (13.3-17.7); LYMPHOCYTES # (AUTO) 0.6 X 10^3 (1.0-4.0); LYMPHOCYTES % (AUTO) 19 % (12-44); MEAN CORPUSCULAR HEMOGLOBIN 23 PG (25-34); MEAN CORPUSCULAR HGB CONC 30 G/DL (32-36); MEAN CORPUSCULAR VOLUME 76 FL (80-99); MEAN PLATELET VOLUME 9.8 FL (7.4-10.4); MONOCYTES # (AUTO) 0.5 X 10^3 (0.0-1.0); MONOCYTES % (AUTO) 17 % (0-12); NEUTROPHILS # (AUTO) 1.8 X 10^3 (1.8-7.8); NEUTROPHILS % (AUTO) 58 % (42-75); PLATELET COUNT 280 10^3/uL (130-400); RED CELL DISTRIBUTION WIDTH 18.7 % (10.0-14.5); WHITE BLOOD COUNT 3.2 10^3/uL (4.3-11.0)
[2018-08-11 18:01] LABS: CLARITY,URINE CLEAR; GLUCOSE, URINE (UA) NEGATIVE (NEGATIVE); KETONES,URINE NEGATIVE (NEGATIVE); LEUKOCYTE ESTERASE ,URINE 3+ (NEGATIVE); NITRITE,URINE POSITIVE (NEGATIVE); PH,URINE 5 (5-9); PROTEIN,URINE 3+ (NEGATIVE); UROBILINOGEN,URINE 8 MG/DL (NORMAL)
[2018-08-11 18:15] LABS: BACTERIA,URINE NEGATIVE /HPF; BILIRUBIN,URINE 3+ (NEGATIVE); COLOR,URINE ORANGE; WBC,URINE TNTC /HPF
[2018-08-11 18:17] LABS: INR 0.9 (0.8-1.4); PROTHROMBIN TIME PATIENT 12.1 SEC (12.2-14.7)
[2018-08-11 18:19] LABS: ALANINE AMINOTRANSFERASE 15 U/L (0-55); ALBUMIN 4.1 GM/DL (3.2-4.5); ALKALINE PHOSPHATASE 140 U/L (40-136); BILIRUBIN,TOTAL 0.2 MG/DL (0.1-1.0); BUN/CREATININE RATIO 9; CALCIUM 8.8 MG/DL (8.5-10.1); CARBON DIOXIDE 24 MMOL/L (21-32); CHLORIDE 107 MMOL/L (98-107); CREATININE SERUM 1.37 MG/DL (0.60-1.30); GFR ESTIMATED 54; GLUCOSE 162 MG/DL (70-105); LIPASE 85 U/L (8-78); MAGNESIUM 2.2 MG/DL (1.8-2.4); POTASSIUM 3.7 MMOL/L (3.6-5.0); SODIUM 139 MMOL/L (135-145); TOTAL PROTEIN 7.6 GM/DL (6.4-8.2)
--- NOTE | 2018-08-11 18:21 | Diagnostic Imaging Report ---
INDICATION: Chest pain. FINDINGS: Air trapping and COPD are present. No consolidation, failure, effusion or pneumothorax. IMPRESSION: Air trapping but no acute finding. Dictated by: Dictated on workstation # [id number]
[2018-08-11 18:26] LABS: MYOGLOBIN SERUM 40.5 NG/ML (10.0-92.0)
--- NOTE | 2018-08-11 18:37 | NUR ---
RETING IN BED ET DENIES NEEDS AT THIS TIME. BP HAS DECREASED TO 172/77
--- NOTE | 2018-08-11 18:44 | NUR ---
PT COMPLAINS OF HAVING ANOTHER ONE OF HIS MIGRAINS THAT CAUSES HIM TO GO WEAK ON HIS RIGHT SIDE. GUILLERMO TOBAR WENT AND TALKED TO HIM.
--- NOTE | 2018-08-11 18:50 | NUR ---
REPORT GIVEN TO
[2018-08-11] MEDS ORDERED: KETOROLAC 30 MG/ML VIAL ONE (18:54)
[2018-08-11] MEDS ORDERED: NS IV 500 ML 500 ML ONE (18:56)
[2018-08-11 19:00] VITALS: BP 148/80
[2018-08-11] MEDS ORDERED: NS IV 500 ML 500 ML IV SCH (19:00)
[2018-08-11] MEDS ORDERED: MAGNESIUM 1 GM/100 ML IVPB 100 ML IV ONE (19:00)
[2018-08-11] MEDS ORDERED: diphenhydrAMINE 50 MG/ML INJ (BENADRYL) IVP ONE (19:00)
[2018-08-11] MEDS ORDERED: PROCHLORPERAZINE 10 MG/2ML INJ (COMPAZINE) IV ONE (19:00)
[2018-08-11] MEDS ORDERED: KETOROLAC 15 MG/ML VIAL IVP ONE (19:00)
--- NOTE | 2018-08-11 19:02 | ED Chest Pain ---
General Chief Complaint: Chest Pain Stated Complaint: HIGH BLOOD PRESSURE/CHEST PAIN Nursing Triage Note: ARRIVED VIA AMB TO ROOM 03. COMPLAINS OF HYPERTENSION AND CHEST PAIN STARTING YESTERDAY. Nursing Sepsis Screen: No Definite Risk Source: patient Exam Limitations: no limitations History of Present Illness Date Seen by Provider: Aug 11, 2018 Time Seen by Provider: 17:35 Initial Comments 58-year-old male who presents to the emergency room with complaints of headache , hypertension, and chest pain that started yesterday around 12:30. The patient has had several visits to the emergency room for similar complaints. He reports that he has been taking all of his home medications as previously prescribed. He also has associated right-sided weakness that is very common when he gets his migraines. Timing/Duration: 1-2 days Severity/Quality: mild Location: substernal Activities at Onset: none Associated Symptoms: headache, weakness Allergies and Home Medications Allergies Coded Allergies: penicillin G (Verified Allergy, Severe, SWELLING, 12/22/17) Home Medications Alprazolam 0.25 Mg Tablet, 0.25 MG PO BID PRN for ANXIETY, (Reported) Amlodipine Besylate 10 Mg Tablet, 10 MG PO DAILY, (Reported) Atorvastatin Calcium 10 Mg Tablet, 10 MG PO HS, (Reported) Bupropion HCl 150 Mg Tablet.er, 150 MG PO BID, (Reported) Buspirone HCl 15 Mg Tablet, 15 MG PO TID, (Reported) Carvedilol 6.25 Mg Tablet, 6.25 MG PO BID, (Reported) Clonidine HCl 0.1 Mg Tablet, 0.1 MG PO TID, (Reported) Hydrocodone/Acetaminophen 1 Each Tablet, 1-2 EACH PO Q6H PRN for PAIN-MODERATE Prescribed by: JULISSA HERNÁNDEZ on 04/25/18 1202 Levofloxacin 250 Mg Tablet, 250 MG PO DAILY Prescribed by: BILL HUERTA on 07/19/18 1836 Losartan Potassium 100 Mg Tablet, 100 MG PO HS, (Reported) Nitroglycerin 0.4 Mg Tab.subl, 0.4 MG SL UD PRN for CHEST PAIN, (Reported) PLACE 1 TAB UNDER TONGUE NEEDED FOR CHEST PAIN; IF PAIN REMAINS AFTER 5 MINUTES, CALL 911 [place]-3 Fatty Acids/Fish Oil 1 Each Capsule, 1,000 MG PO BID, (Reported) Ondansetron 4 Mg Tab.rapdis, 4 MG SL Q4H PRN for NAUSEA/VOMITING-1ST LINE Prescribed by: GUILLERMO MONK on 04/22/182127 Sertraline HCl 100 Mg Tablet, 100 MG PO DAILY, (Reported) Sertraline HCl 25 Mg Tablet, 25 MG PO DAILY, (Reported) TAKES ALONG WITH 100MG TABLET Sulfamethoxazole/Trimethoprim 1 Each Tablet, 1 EACH PO BID Prescribed by: GUILLERMO MONK on 04/22/182127 Sulfamethoxazole/Trimethoprim 1 Each Tablet, 1 EACH PO BID Prescribed by: GUILLERMO MONK on 08/11/181931 Tamsulosin HCl 0.4 Mg Cap.er.24h, 0.4 MG PO DAILY@1800, (Reported) Patient Home Medication List Home Medication List Reviewed: Yes Review of Systems Review of Systems Constitutional: see HPI, weakness (right sided ) Cardiovascular: See HPI, Chest Pain, Other (high blood pressure) All Other Systems Reviewed Negative Unless Noted: Yes Past Iwxhgce-Bqfihr-Pbsnnt Hx Past Med/Social Hx: Reviewed Nursing Past Med/Soc Hx Patient Social History Alcohol Use: Denies Use Alcohol Beverage of Choice: Beer Recreational Drug Use: No Smoking Status: Former Smoker Type Used: Cigarettes Former Smoker, Quit: Aug 24, 2016 2nd Hand Smoke Exposure: Yes Recent Foreign Travel: No Contact w/Someone Who Travel: No Recent Infectious Disease Expo: No Recent Hopitalizations: No Immunizations Up To Date Tetanus Booster (TDap): Less than 5yrs PED Vaccines UTD: No Date of Influenza Vaccine: Jul 28, 2017 Seasonal Allergies Seasonal Allergies: No Past Medical History Surgeries: Yes (umb hernia, R thumb, ing hernia, 3 stents and baloon) Abdominal, Coronary Stent, Orthopedic Respiratory: Yes Sleep Apnea Currently Using CPAP: No Currently Using BIPAP: No Cardiac: Yes (BALLOON ON 07/28/17 ET STENT) Coronary Artery Disease, Deep Vein Thrombosis, Heart Attack, High Cholesterol, Hypertension Neurological: Yes (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) Headaches /Migraines, TIA Reproductive Disorders: No Sexually Transmitted Disease: No Genitourinary: Yes (recurrent urinary tract infections, prostate ca) Prostate Problems, Kidney Stones, UTI-Chronic Gastrointestinal: Yes Gastroesophageal Reflux, Hiatal Hernia, Ulcer Musculoskeletal: Yes Arthritis, Rheumatoid Arthritis, Back Injury, Chronic Back Pain, Fractures Endocrine: No HEENT: No Eye Injury Loss of Vision: Denies Hearing Impairment: Denies Cancer: Yes Prostate Did You Recieve Any Treatments: Yes What Type of Treatment Did You: Radiation Psychosocial: Yes (History of illicit and prescription drug abuse) Anxiety, Depression Integumentary: No Blood Disorders: No Adverse Reaction/Blood Tranf: No Family Medical History Reviewed Nursing Family Hx Arthritis 19 MOTHER [employer] G8 SISTER FH: COPD (chronic obstructive pulmonary disease) Hypercholesterolemia 19 MOTHER Hypertension 19 MOTHER Heart Disease, Hypertension Physical Exam Vital Signs Vital Signs - First Documented 08/11/18 17:30 Temp 96.8 Pulse 63 Resp 16 B/P (MAP) 221/106 (144) Pulse Ox 97 O2 Delivery Room Air Capillary Refill : Less Than 3 Seconds Height, Weight, BMI Height: 5'9.00" Weight: 192lbs. 0.0oz. 87.038855ln; 28.1 BMI Method:Stated General Appearance: No Apparent Distress, WD/WN HEENT: PERRL/EOMI, TMs Normal, Normal ENT Inspection, Pharynx Normal Neck: Full Range of Motion, Normal Inspection, Non Tender Respiratory: Chest Non Tender, Lungs Clear, Normal Breath Sounds, No Accessory Muscle Use, No Respiratory Distress Cardiovascular: Regular Rate, Rhythm, No Edema, No Gallop, No JVD, No Murmur, Normal Peripheral Pulses Gastrointestinal: Normal Bowel Sounds, No Organomegaly, No Pulsatile Mass, Non Tender Extremity: Normal Capillary Refill, Normal Inspection, Normal Range of Motion, Non Tender, No Calf Tenderness, No Pedal Edema Neurologic/Psychiatric: Alert, Oriented x3, No Motor/Sensory Deficits, Normal Mood/Affect Skin: Normal Color, Warm/Dry Other comments NIH "0" Progress/Results/Core Measures Results/Orders Lab Results Laboratory Tests Test 08/11/18 17:14 08/11/18 17:40 Range/Units Urine Color ORANGE Urine Clarity CLEAR Urine pH 5 5-9 Urine Specific [place] 1.020 1.016-1.022 Urine Protein 3+ H NEGATIVE Urine Glucose (UA) NEGATIVE NEGATIVE Urine Ketones NEGATIVE NEGATIVE Urine Nitrite POSITIVE H NEGATIVE Urine Bilirubin 3+ H NEGATIVE Urine Urobilinogen 8 H NORMAL MG/DL Urine Leukocyte Esterase 3+ H NEGATIVE Urine RBC (Auto) 2+ H NEGATIVE Urine RBC 2-5 H /HPF Urine WBC TNTC H /HPF Urine Squamous Epithelial Cells NONE /HPF Urine Crystals NONE /LPF Urine Bacteria NEGATIVE /HPF Urine Casts NONE /LPF Urine Mucus NEGATIVE /LPF Urine Culture Indicated YES White Blood Count 3.2 L 4.3-11.0 10^3/uL Red Blood Count 3.94 L 4.35-5.85 10^6/uL Hemoglobin 9.1 L 13.3-17.7 G/DL Hematocrit 30 L 40-54 % Mean Corpuscular Volume 76 L 80-99 FL Mean Corpuscular Hemoglobin 23 L 25-34 PG Mean Corpuscular Hemoglobin Concent 30 L 32-36 G/DL Red Cell Distribution Width 18.7 H 10.0-14.5 % Platelet Count 280 130-400 10^3/uL Mean Platelet Volume 9.8 7.4-10.4 FL Neutrophils (%) (Auto) 58 42-75 % Lymphocytes (%) (Auto) 19 12-44 % Monocytes (%) (Auto) 17 H 0-12 % Eosinophils (%) (Auto) 7 0-10 % Basophils (%) (Auto) 1 0-10 % Neutrophils # (Auto) 1.8 1.8-7.8 X 10^3 Lymphocytes # (Auto) 0.6 L 1.0-4.0 X 10^3 Monocytes # (Auto) 0.5 0.0-1.0 X 10^3 Eosinophils # (Auto) 0.2 0.0-0.3 10^3/uL Basophils # (Auto) 0.0 0.0-0.1 10^3/uL Prothrombin Time 12.1 L 12.2-14.7 SEC INR Comment 0.9 0.8-1.4 Activated Partial Thromboplast Time 30 24-35 SEC Sodium Level 139 135-145 MMOL/L Potassium Level 3.7 3.6-5.0 MMOL/L Chloride Level 107 98-107 MMOL/L Carbon Dioxide Level 24 21-32 MMOL/L Anion Gap 8 5-14 MMOL/L Blood Urea Nitrogen 12 7-18 MG/DL Creatinine 1.37 H 0.60-1.30 MG/DL Estimat Glomerular Filtration Rate 54 BUN/Creatinine Ratio 9 Glucose Level 162 H 70-105 MG/DL Calcium Level 8.8 8.5-10.1 MG/DL Corrected Calcium 8.7 8.5-10.1 MG/DL Magnesium Level 2.2 1.8-2.4 MG/DL Total Bilirubin 0.2 0.1-1.0 MG/DL Aspartate Amino Transf (AST/SGOT) 17 5-34 U/L Alanine Aminotransferase (ALT/SGPT) 15 0-55 U/L Alkaline Phosphatase 140 H 40-136 U/L Myoglobin 40.5 10.0-92.0 NG/ML Troponin I < 0.028 <0.028 NG/ML B-Type Natriuretic Peptide 76.8 <100.0 PG/ML Total Protein 7.6 6.4-8.2 GM/DL Albumin 4.1 3.2-4.5 GM/DL Lipase 85 H 8-78 U/L Micro Results Microbiology 08/11/18 Urine Culture - Final, Complete Enterococcus faecalis My Orders Orders - GUILLERMO MONK Ekg Tracing (08/11/18 17:34) Chest 1 View, Ap/Pa Only (08/11/18 17:34) Aspirin Chewable Tablet (Baby Aspirin Ch (08/11/18 17:45) Cbc With Automated Diff (08/11/18 17:34) Magnesium (08/11/18 17:34) Cardiac Profile 1 (08/11/18 17:34) Comprehensive Metabolic Panel (08/11/18 17:34) Myoglobin Serum (08/11/18 17:34) Protime With Inr (08/11/18 17:34) Partial Thromboplastin Time (08/11/18 17:34) O2 (08/11/18 17:34) Monitor-Rhythm Ecg Trace Only (08/11/18 17:34) Saline Lock/Iv-Start (08/11/18 17:34) Lipase (08/11/18 17:34) BNP (08/11/18 17:34) Ua Culture If Indicated (08/11/18 17:45) Morphine Injection (Morphine Injection (08/11/18 17:45) Hydralazine Injection (Apresoline Inject (08/11/18 17:45) Clonidine Tablet (Catapres Tablet) (08/11/18 17:45) Urine Culture (08/11/18 17:14) Prochlorperazine Injection (Compazine In (08/11/18 19:00) Magnesium 1 Gm/100 Ml Ivpb (Magnesium [place] (08/11/18 19:00) Diphenhydramine Injection (Benadryl Inje (08/11/18 19:00) Ketorolac Injection (Toradol Injection) (08/11/18 19:00) Ns Iv 500 Ml (Sodium Chloride 0.9%) (08/11/18 19:00) Ketorolac Injection (Toradol Injection) (08/11/18 18:54) Ns Iv 500 Ml (Sodium Chloride 0.9%) (08/11/18 18:56) Iv Infusion <= First Hr Ed (08/11/18 ) Medications Given in ED Vital Signs/I&O 08/11/18 08/11/18 08/11/18 08/11/18 17:30 19:00 19:10 19:40 Temp 96.8 97.0 Pulse 63 63 51 Resp 16 15 12 B/P (MAP) 221/106 (144) 148/80 (102) 131/71 (91) Pulse Ox 97 97 97 98 O2 Delivery Room Air Room Air Room Air Room Air Blood Pressure Mean: 144 Progress Progress Note : Time: 19:29 Progress Note I have seen and evaluated the patient. I've informed him of his laboratory findings. His hypertension has improved, his migraine and chest pain has resolved after medications. He has no longer weak on the right side. He agrees with plan of care, plans for discharge, return precautions were given. Diagnostic Imaging Diagonstic Imaging: Xray Plain Films/CT/US/NM/MRI: chest Comments NAME: [facility] REC#: [id number] PHYSICIAN: GUILLERMO MONK CC: YULISSA MONK THOMAS D Page 1 of 1 RADIOLOGY REPORT [facility] [place] [place] CC: YULISSA MONK THOMAS D Page 1 of 1 RADIOLOGY REPORT NAME: [facility] REC#: [id number] PT STATUS: REG ER : 1960 PHYSICIAN: GUILLERMO MONK ADMIT DATE: 08/11/18/ER Signed Date of Exam: 08/11/18 CHEST 1 VIEW, AP/PA ONLY INDICATION: Chest pain. FINDINGS: Air trapping and COPD are present. No consolidation, failure, effusion or pneumothorax. IMPRESSION: Air trapping but no acute finding. Dictated by: Dictated on workstation # [id number] Dict: 08/11/181815 Trans: 08/11/181856 Interpreted by: ОЛЕГ RENE Electronically signed by: ОЛЕГ RENE 08/11/181856 Departure Impression Primary Impression: Labile hypertension Additional Impressions: Chest pain Atypical migraine Urinary tract infection Disposition: 01 HOME, SELF-CARE Condition: Stable/Unchanged Departure-Patient Inst. Decision time for Depature: 19:28 Referrals: ANDRES RABAGO DO (PCP/Family) Primary Care Physician Patient Instructions: Chest Pain (DC), Migraine Headache (DC), Urinary Tract Infection, Adult (DC) Add. Discharge Instructions: Take medications as directed. Drink plenty of fluids to help flush out your kidneys and urinary tract. Resume your home medications as previously prescribed. Follow-up with your primary care provider within 1 week for recheck. Keep a close eye on your blood pressure over the next couple of days. Return back to the emergency room for worsening symptoms or concerns as needed. All discharge instructions reviewed with patient and/or family. Voiced understanding. Scripts Sulfamethoxazole/Trimethoprim (Bactrim Ds Tablet) 1 Each Tablet 1 EACH PO BID for 7 Days, #14 TAB Prov: GUILLERMO MONK 08/11/18 GUILLERMO MONK Aug 11, 2018 19:02
[2018-08-11] MEDS ORDERED: SULF1TAB35 PO (19:32)
[2018-08-11 19:40] VITALS: BP 131/71
== END 2018-08-11 19:41 | disposition home or self-care (01) ==
LOC: EDUNIT# 17:30 → ER 17:34
DX: I10 Essential (primary) hypertension (principal); R07.9 Chest pain, unspecified; G43.909 Migraine, unspecified, not intractable, without status migrainosus; N39.0 Urinary tract infection, site not specified; G47.30 Sleep apnea, unspecified; I25.10 Atherosclerotic heart disease of native coronary artery without angina pectoris; I25.2 Old myocardial infarction; E78.00 Pure hypercholesterolemia, unspecified; K21.9 Gastro-esophageal reflux disease without esophagitis; F41.9 Anxiety disorder, unspecified; F32.9 Major depressive disorder, single episode, unspecified; M06.9 Rheumatoid arthritis, unspecified; Z82.49 Family history of ischemic heart disease and other diseases of the circulatory system; Z87.19 Personal history of other diseases of the digestive system; Z85.46 Personal history of malignant neoplasm of prostate; Z87.442 Personal history of urinary calculi; Z87.440 Personal history of urinary (tract) infections; Z86.73 Personal history of transient ischemic attack (TIA), and cerebral infarction without residual deficits; Z92.21 Personal history of antineoplastic chemotherapy; Z86.718 Personal history of other venous thrombosis and embolism; Z87.891 Personal history of nicotine dependence; Z88.0 Allergy status to penicillin; Z98.890 Other specified postprocedural states; Z95.5 Presence of coronary angioplasty implant and graft
CPT/HCPCS: 36415; 71045; 80053; 81000; 83690; 83735; 83874; 83880; 84484; 85025; 85610; 85730; 87077; 87088; 87186; 93041; 96361; 96365; 96375

== ENCOUNTER 2018-09-18 20:38 | Emergency (ER) | payer SELFPAY ==
[~2018-09-18] VITALS: Ht 175.3 cm; Wt 87.1 kg
--- OUTSIDE RECORDS SUMMARY | 2018-09-18 20:43 | XMS REPORT | Clinical Summary ---
Author Author [facility] Organization [facility] Address Unknown Phone Unavailable Care Team Providers Care Internet Sales Manager Name Role Phone Leroy Lao MD [address] Hernandes DO PCP Source Comments Some departments are not documenting in the electronic medical record. 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88 Plan of Treatment [...] on file. For more information, please contact: [facility] [address] [place] [address] Date Inactivated Comments Code Status Date Activated [...]
--- OUTSIDE RECORDS SUMMARY | 2018-09-18 20:43 | XMS REPORT | Encounter Summary ---
Author Author [facility] Organization [facility] Address Unknown Phone Unavailable Care Team Providers Care Community Health Outreach Worker Name Role Phone Leroy Lao MD [address] Hernandes DO PCP Reason for Visit * Reason Comments Medication Refill Encounter Details Care Team Description Date Type Department David Simms MD [address] [id number] Medication Refill 07/31/2018 Refill [facility] [address] [facility] [place] [address] Social History Date Tobacco Use Types Packs/Day Years Used Current Every Day Smoker Cigarettes Alcohol Use Drinks/Week oz/Week Comments Yes 0 Standard 0.0 drinks or equivalent Sex Assigned at Date Recorded Not on file Industry Job Start Date Occupation Not on file Not on file Not on file Travel End Travel History Travel Start No recent travel history available. documented as of this encounter Functional Status Date of Assessment Functional Status Response 03/06/2017 Does the patient have a hearing impairment: No documented as of this encounter Plan of Treatment Not on filedocumented as of this encounter Visit Diagnoses Not on filedocumented in this encounter
[2018-09-18] MEDS ORDERED: LABETALOL HCL 20 MG/4 ML VIAL IV ONE ×3 (20:45→23:45)
[2018-09-18 21:14] LABS: BASOPHILS % (AUTO) 1 % (0-10); EOSINOPHILS # (AUTO) 0.1 10^3/uL (0.0-0.3); EOSINOPHILS % (AUTO) 4 % (0-10); HEMATOCRIT 28 % (40-54); HEMOGLOBIN 8.1 G/DL (13.3-17.7); LYMPHOCYTES # (AUTO) 1.1 X 10^3 (1.0-4.0); LYMPHOCYTES % (AUTO) 29 % (12-44); MEAN CORPUSCULAR HEMOGLOBIN 22 PG (25-34); MEAN CORPUSCULAR HGB CONC 29 G/DL (32-36); MEAN CORPUSCULAR VOLUME 76 FL (80-99); MONOCYTES # (AUTO) 0.5 X 10^3 (0.0-1.0); MONOCYTES % (AUTO) 12 % (0-12); NEUTROPHILS # (AUTO) 2.1 X 10^3 (1.8-7.8); NEUTROPHILS % (AUTO) 55 % (42-75); PLATELET COUNT 402 10^3/uL (130-400); RED CELL DISTRIBUTION WIDTH 18.7 % (10.0-14.5); WHITE BLOOD COUNT 3.8 10^3/uL (4.3-11.0)
[2018-09-18 21:25] LABS: INR 0.9 (0.8-1.4); PROTHROMBIN TIME PATIENT 12.7 SEC (12.2-14.7)
--- NOTE | 2018-09-18 21:34 | ED Cardiac General ---
History of Present Illness General Chief Complaint: Cardiac/General Problems Stated Complaint: CHEST PAIN Source: patient, old records Allergies and Home Medications Allergies Coded Allergies: penicillin G (Verified Allergy, Severe, SWELLING, 12/22/17) Home Medications Alprazolam 0.25 Mg Tablet, 0.25 MG PO BID PRN for ANXIETY, (Reported) Amlodipine Besylate 10 Mg Tablet, 10 MG PO DAILY, (Reported) Atorvastatin Calcium 10 Mg Tablet, 10 MG PO HS, (Reported) Bupropion HCl 150 Mg Tablet.er, 150 MG PO BID, (Reported) Buspirone HCl 15 Mg Tablet, 15 MG PO TID, (Reported) Carvedilol 6.25 Mg Tablet, 6.25 MG PO BID, (Reported) Clonidine HCl 0.1 Mg Tablet, 0.1 MG PO TID, (Reported) Hydrocodone/Acetaminophen 1 Each Tablet, 1-2 EACH PO Q6H PRN for PAIN-MODERATE Prescribed by: JULISSA HERNÁNDEZ on 04/25/18 1202 Levofloxacin 250 Mg Tablet, 250 MG PO DAILY Prescribed by: BILL HUERTA on 07/19/18 1836 Losartan Potassium 100 Mg Tablet, 100 MG PO HS, (Reported) Nitrofurantoin Monohyd/M-Cryst 100 Mg Capsule, 100 MG PO BID Prescribed by: MORGAN LARES on 09/19/18 0146 Nitroglycerin 0.4 Mg Tab.subl, 0.4 MG SL UD PRN for CHEST PAIN, (Reported) PLACE 1 TAB UNDER TONGUE NEEDED FOR CHEST PAIN; IF PAIN REMAINS AFTER 5 MINUTES, CALL 911 [place]-3 Fatty Acids/Fish Oil 1 Each Capsule, 1,000 MG PO BID, (Reported) Ondansetron 4 Mg Tab.rapdis, 4 MG SL Q4H PRN for NAUSEA/VOMITING-1ST LINE Prescribed by: GUILLERMO MONK on 04/22/182127 Sertraline HCl 100 Mg Tablet, 100 MG PO DAILY, (Reported) Sertraline HCl 25 Mg Tablet, 25 MG PO DAILY, (Reported) TAKES ALONG WITH 100MG TABLET Sulfamethoxazole/Trimethoprim 1 Each Tablet, 1 EACH PO BID Prescribed by: GUILLERMO MONK on 04/22/182127 Sulfamethoxazole/Trimethoprim 1 Each Tablet, 1 EACH PO BID Prescribed by: GUILLERMO MONK on 08/11/181931 Tamsulosin HCl 0.4 Mg Cap.er.24h, 0.4 MG PO DAILY@1800, (Reported) Past Ubvobwc-Iuronp-Siqzcy Hx Patient Social History Alcohol Beverage of Choice: Beer Type Used: Cigarettes Former Smoker, Quit: Aug 24, 2016 2nd Hand Smoke Exposure: Yes Recent Foreign Travel: No Contact w/Someone Who Travel: No Recent Hopitalizations: No Immunizations Up To Date Tetanus Booster (TDap): Less than 5yrs PED Vaccines UTD: No Date of Influenza Vaccine: Jul 28, 2017 Seasonal Allergies Seasonal Allergies: No Past Medical History Surgeries: Yes (umb hernia, R thumb, ing hernia, 3 stents and baloon) Abdominal, Coronary Stent, Orthopedic Respiratory: Yes Sleep Apnea Currently Using CPAP: No Currently Using BIPAP: No Cardiac: Yes (BALLOON ON 07/28/17 ET STENT) Coronary Artery Disease, Deep Vein Thrombosis, Heart Attack, High Cholesterol, Hypertension Neurological: Yes (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) Headaches /Migraines, TIA Reproductive Disorders: No Sexually Transmitted Disease: No Genitourinary: Yes (recurrent urinary tract infections, prostate ca) Prostate Problems, Kidney Stones, UTI-Chronic Gastrointestinal: Yes Gastroesophageal Reflux, Hiatal Hernia, Ulcer Musculoskeletal: Yes Arthritis, Rheumatoid Arthritis, Back Injury, Chronic Back Pain, Fractures Endocrine: No HEENT: No Eye Injury Loss of Vision: Denies Hearing Impairment: Denies Cancer: Yes Prostate Did You Recieve Any Treatments: Yes What Type of Treatment Did You: Radiation Psychosocial: Yes (History of illicit and prescription drug abuse) Anxiety, Depression Integumentary: No Blood Disorders: No Adverse Reaction/Blood Tranf: No Family Medical History Arthritis 19 MOTHER REL[employer]ION DEPARTMENT CHAIR G8 SISTER FH: COPD (chronic obstructive pulmonary disease) Hypercholesterolemia 19 MOTHER Hypertension 19 MOTHER Heart Disease, Hypertension Physical Exam Vital Signs Vital Signs - First Documented Capillary Refill : Height, Weight, BMI Height: 5'9.00" Weight: 192lbs. 0.0oz. [id number]; 28.1 BMI Method:Stated Progress/Results/Core Measures Results/Orders Lab Results Laboratory Tests Test 09/18/18 21:03 09/19/18 01:21 Range/Units White Blood Count 3.8 L 4.3-11.0 10^3/uL Red Blood Count 3.71 L 4.35-5.85 10^6/uL Hemoglobin 8.1 L 13.3-17.7 G/DL Hematocrit 28 L 40-54 % Mean Corpuscular Volume 76 L 80-99 FL Mean Corpuscular Hemoglobin 22 L 25-34 PG Mean Corpuscular Hemoglobin Concent 29 L 32-36 G/DL Red Cell Distribution Width 18.7 H 10.0-14.5 % Platelet Count 402 H 130-400 10^3/uL Mean Platelet Volume 10.0 7.4-10.4 FL Neutrophils (%) (Auto) 55 42-75 % Lymphocytes (%) (Auto) 29 12-44 % Monocytes (%) (Auto) 12 0-12 % Eosinophils (%) (Auto) 4 0-10 % Basophils (%) (Auto) 1 0-10 % Neutrophils # (Auto) 2.1 1.8-7.8 X 10^3 Lymphocytes # (Auto) 1.1 1.0-4.0 X 10^3 Monocytes # (Auto) 0.5 0.0-1.0 X 10^3 Eosinophils # (Auto) 0.1 0.0-0.3 10^3/uL Basophils # (Auto) 0.0 0.0-0.1 10^3/uL Prothrombin Time 12.7 12.2-14.7 SEC INR Comment 0.9 0.8-1.4 Activated Partial Thromboplast Time 34 24-35 SEC Sodium Level 140 135-145 MMOL/L Potassium Level 3.9 3.6-5.0 MMOL/L Chloride Level 106 98-107 MMOL/L Carbon Dioxide Level 23 21-32 MMOL/L Anion Gap 11 5-14 MMOL/L Blood Urea Nitrogen 14 7-18 MG/DL Creatinine 1.18 0.60-1.30 MG/DL Estimat Glomerular Filtration Rate > 60 BUN/Creatinine Ratio 12 Glucose Level 118 H 70-105 MG/DL Calcium Level 8.5 8.5-10.1 MG/DL Corrected Calcium 8.8 8.5-10.1 MG/DL Magnesium Level 2.3 1.8-2.4 MG/DL Total Bilirubin 0.2 0.1-1.0 MG/DL Aspartate Amino Transf (AST/SGOT) 15 5-34 U/L Alanine Aminotransferase (ALT/SGPT) 17 0-55 U/L Alkaline Phosphatase 156 H 40-136 U/L Total Creatine Kinase 38 30-200 U/L Creatine Kinase MB 0.8 <6.6 NG/ML Myoglobin 23.0 10.0-92.0 NG/ML Troponin I < 0.028 <0.028 NG/ML B-Type Natriuretic Peptide 36.9 <100.0 PG/ML Total Protein 7.2 6.4-8.2 GM/DL Albumin 3.6 3.2-4.5 GM/DL Serum Alcohol < 10 <10 MG/DL Urine Color YELLOW Urine Clarity CLEAR Urine pH 6.5 5-9 Urine Specific [place] 1.015 L 1.016-1.022 Urine Protein 2+ H NEGATIVE Urine Glucose (UA) NEGATIVE NEGATIVE Urine Ketones NEGATIVE NEGATIVE Urine Nitrite NEGATIVE NEGATIVE Urine Bilirubin NEGATIVE NEGATIVE Urine Urobilinogen NORMAL NORMAL MG/DL Urine Leukocyte Esterase 1+ H NEGATIVE Urine RBC (Auto) 1+ H NEGATIVE Urine RBC 2-5 H /HPF Urine WBC 10-25 H /HPF Urine Squamous Epithelial Cells RARE /HPF Urine Crystals NONE /LPF Urine Bacteria FEW H /HPF Urine Casts /LPF Urine Mucus SMALL H /LPF Urine Culture Indicated YES Urine Opiates Screen NEGATIVE NEGATIVE Urine Oxycodone Screen NEGATIVE NEGATIVE Urine Methadone Screen NEGATIVE NEGATIVE Urine Propoxyphene Screen NEGATIVE NEGATIVE Urine Barbiturates Screen NEGATIVE NEGATIVE Ur Tricyclic Antidepressants Screen NEGATIVE NEGATIVE Urine Phencyclidine Screen NEGATIVE NEGATIVE Urine Amphetamines Screen NEGATIVE NEGATIVE Urine Methamphetamines Screen NEGATIVE NEGATIVE Urine Benzodiazepines Screen NEGATIVE NEGATIVE Urine Cocaine Screen NEGATIVE NEGATIVE Urine Cannabinoids Screen NEGATIVE NEGATIVE My Orders Orders - MORGAN LARES DO Cbc With Automated Diff (09/18/18 20:40) Magnesium (09/18/18 20:40) Chest 1 View, Ap/Pa Only (09/18/18 20:40) Ekg Tracing (09/18/18 20:40) Cardiac Profile 1 (09/18/18 20:40) Comprehensive Metabolic Panel (09/18/18 20:40) Myoglobin Serum (09/18/18 20:40) Protime With Inr (09/18/18 20:40) Partial Thromboplastin Time (09/18/18 20:40) O2 (09/18/18 20:40) Monitor-Rhythm Ecg Trace Only (09/18/18 20:40) Lipid Panel (09/19/18 06:00) Saline Lock/Iv-Start (09/18/18 20:40) Creatine Kinase (09/18/18 20:40) Creatine Kinase Mb (09/18/18 20:40) BNP (09/18/18 20:40) Ct Head Wo-R/O Stroke (09/18/18 20:40) Labetalol Injection (Normodyne Injection (09/18/18 20:45) Labetalol Injection (Normodyne Injection (09/18/18 22:00) Ondansetron Injection (Zofran Injectio (09/18/18 22:30) Ketorolac Injection (Toradol Injection) (09/18/18 23:45) Labetalol Injection (Normodyne Injection (09/18/18 23:45) Magnesium 1 Gm/100 Ml Ivpb (Magnesium [place] (09/19/18 01:00) Diphenhydramine Injection (Benadryl Inje (09/19/18 01:00) Prochlorperazine Injection (Compazine In (09/19/18 01:00) Drug Screen Stat (Urine) (09/19/18 01:18) Ua Culture If Indicated (09/19/18 01:18) Alcohol (09/19/18 01:18) Urine Culture (09/19/18 01:21) Medications Given in ED Current Medications Medications Dose Ordered Sig/Mckenzie Route Start Time Stop Time Status Last Admin Dose Admin Ketorolac Tromethamine 30 mg ONCE ONCE IVP 09/18/18 23:45 09/18/18 23:46 DC 09/19/18 00:11 30 MG Labetalol HCl 20 mg ONCE ONCE IV 09/18/18 20:45 09/18/18 20:50 DC 09/18/18 21:10 20 MG Labetalol HCl 20 mg ONCE ONCE IV 09/18/18 22:00 09/18/18 22:01 DC 09/18/18 22:07 20 MG Labetalol HCl 20 mg ONCE ONCE IV 09/18/18 23:45 09/18/18 23:46 DC 09/19/18 00:11 20 MG Ondansetron HCl 8 mg ONCE ONCE IVP 09/18/18 22:30 09/18/18 22:31 DC 09/18/18 22:36 8 MG Vital Signs/I&O 09/18/18 09/18/18 20:38 20:38 Temp 98.4 Pulse 78 Resp 20 B/P (MAP) 234/109 (150) Pulse Ox 97 97 O2 Delivery Room Air Room Air Progress Progress Note : Progress Note BP DOWN WITH MEDICATIONS AND OTHER SYMPTOMS HAVE RESOLVED BP HAS COME DOWN Diagnostic Imaging Comments CT HEAD--NO ACUTE PROCESS, PER [facility] VIA FAX @5633 Reviewed: Reviewed by Me Departure Impression Primary Impression: Uncontrolled hypertension Additional Impressions: UTI (urinary tract infection) Chronic anemia Disposition: HOME, SELF-CARE Condition: Improved Departure-Patient Inst. Referrals: ANDRES RABAGO DO (PCP/Family) Primary Care Physician ANDREA ELIAS MD Patient Instructions: Anemia Caused by Low Iron, Adult (DC), Heart Healthy Diet , High Blood Pressure (DC), Urinary Tract Infection, Adult (DC) Add. Discharge Instructions: TAKE YOUR MEDICATIONS EXACTLY PRESCRIBED FOLLOW UP WITH DR. ELIAS AND DR. RABAGO THIS WEEK FOR FURTHER CARE All discharge instructions reviewed with patient and/or family. Voiced understanding. Scripts Nitrofurantoin Monohyd/M-Cryst (Macrobid 100 mg Capsule) 100 Mg Capsule 100 MG PO BID, #20 CAP Prov: MORGAN LARES DO 09/19/18 MORGAN LARES DO Sep 18, 2018 21:34
[2018-09-18 21:37] LABS: ALANINE AMINOTRANSFERASE 17 U/L (0-55); ALBUMIN 3.6 GM/DL (3.2-4.5); ALKALINE PHOSPHATASE 156 U/L (40-136); BILIRUBIN,TOTAL 0.2 MG/DL (0.1-1.0); BUN/CREATININE RATIO 12; CALCIUM 8.5 MG/DL (8.5-10.1); CARBON DIOXIDE 23 MMOL/L (21-32); CHLORIDE 106 MMOL/L (98-107); CREATINE KINASE 38 U/L (30-200); CREATININE SERUM 1.18 MG/DL (0.60-1.30); GFR ESTIMATED > 60; GLUCOSE 118 MG/DL (70-105); MAGNESIUM 2.3 MG/DL (1.8-2.4); POTASSIUM 3.9 MMOL/L (3.6-5.0); SODIUM 140 MMOL/L (135-145); TOTAL PROTEIN 7.2 GM/DL (6.4-8.2)
[2018-09-18 21:44] LABS: CREATINE KINASE MB 0.8 NG/ML (<6.6)
[2018-09-18] MEDS ORDERED: ONDANSETRON 4 MG/2 ML (SDV) Z0FRAN IVP ONE (22:30)
[2018-09-18] MEDS ORDERED: KETOROLAC 30 MG/ML VIAL IVP ONE (23:45)
[2018-09-19] MEDS ORDERED: PROCHLORPERAZINE 10 MG/2ML INJ (COMPAZINE) IV ONE (01:00)
[2018-09-19] MEDS ORDERED: diphenhydrAMINE 50 MG/ML INJ (BENADRYL) IVP ONE (01:00)
[2018-09-19] MEDS ORDERED: MAGNESIUM 1 GM/100 ML IVPB 100 ML IV ONE (01:00)
[2018-09-19 01:29] LABS: BILIRUBIN,URINE NEGATIVE (NEGATIVE); CLARITY,URINE CLEAR; COLOR,URINE YELLOW; GLUCOSE, URINE (UA) NEGATIVE (NEGATIVE); KETONES,URINE NEGATIVE (NEGATIVE); LEUKOCYTE ESTERASE ,URINE 1+ (NEGATIVE); NITRITE,URINE NEGATIVE (NEGATIVE); PH,URINE 6.5 (5-9); PROTEIN,URINE 2+ (NEGATIVE); UROBILINOGEN,URINE NORMAL (NORMAL)
[2018-09-19 01:41] LABS: AMPHETAMINE SCREEN, URINE NEGATIVE (NEGATIVE); BARBITURATE SCREEN URINE NEGATIVE (NEGATIVE); BENZODIAZEPINES SCREEN URINE NEGATIVE (NEGATIVE); CANNABINOID SCREEN, URINE NEGATIVE (NEGATIVE); COCAINE SCREEN URINE NEGATIVE (NEGATIVE); METHADONE STAT NEGATIVE (NEGATIVE); METHAMPHETAMINE SCREEN URINE S NEGATIVE (NEGATIVE); OPIATE SCREEN URINE NEGATIVE (NEGATIVE); OXYCODONE STAT NEGATIVE (NEGATIVE); PROPOXYPHENE STAT NEGATIVE (NEGATIVE); TRICYCLIC ANTIDEPRESSANTS SCRE NEGATIVE (NEGATIVE)
[2018-09-19 01:42] LABS: BACTERIA,URINE FEW /HPF; SQUAMOUS EPITHELIAL CELL,UR RARE /HPF
[2018-09-19] MEDS ORDERED: NITR-65 PO (01:46)
[2018-09-19 02:44] VITALS: BP 171/100
--- NOTE | 2018-09-19 06:36 | Diagnostic Imaging Report ---
PROCEDURE: CT head wo r/o stroke. TECHNIQUE: Multiple contiguous axial images were obtained through the brain without the use of intravenous contrast. Auto Exposure Controls were utilized during the CT exam to meet ALARA standards for radiation dose reduction. INDICATION: Chest pain and hypertension. Comparison is made with prior examination from 04/10/2017. FINDINGS: The ventricles and sulci are within normal limits. There is no hydrocephalus or cerebral edema. There is no midline shift or mass effect. There is no intracranial mass, hemorrhage, or extra-axial fluid collection. The visualized paranasal sinuses and mastoid air cells are clear. There are no regional areas of decreased attenuation appreciated to suggest an acute CVA. IMPRESSION: No acute intracranial abnormality. Dictated by: Dictated on workstation # [id number]
--- NOTE | 2018-09-19 08:00 | Diagnostic Imaging Report ---
INDICATION: Chest pain. Comparison is made with prior examination from 08/11/2018. FINDINGS: The heart size, mediastinal configuration, and pulmonary vascularity are within normal limits. There is no pleural effusion, pneumothorax, or pneumonia. The osseous structures are unremarkable. IMPRESSION: No acute cardiopulmonary abnormality. Dictated by: Dictated on workstation # [id number]
== END 2018-09-19 02:45 | disposition home or self-care (01) ==
LOC: EDUNIT# 20:38 → ER 20:39
DX: I10 Essential (primary) hypertension (principal); N39.0 Urinary tract infection, site not specified; D63.8 Anemia in other chronic diseases classified elsewhere; G47.30 Sleep apnea, unspecified; I25.10 Atherosclerotic heart disease of native coronary artery without angina pectoris; I25.2 Old myocardial infarction; E78.00 Pure hypercholesterolemia, unspecified; K21.9 Gastro-esophageal reflux disease without esophagitis; G43.909 Migraine, unspecified, not intractable, without status migrainosus; M06.9 Rheumatoid arthritis, unspecified; F41.9 Anxiety disorder, unspecified; F32.9 Major depressive disorder, single episode, unspecified; Z82.49 Family history of ischemic heart disease and other diseases of the circulatory system; Z92.21 Personal history of antineoplastic chemotherapy; Z86.73 Personal history of transient ischemic attack (TIA), and cerebral infarction without residual deficits; Z87.448 Personal history of other diseases of urinary system; Z87.19 Personal history of other diseases of the digestive system; Z85.46 Personal history of malignant neoplasm of prostate; Z86.718 Personal history of other venous thrombosis and embolism; Z88.0 Allergy status to penicillin; Z87.891 Personal history of nicotine dependence; Z95.5 Presence of coronary angioplasty implant and graft; Z98.890 Other specified postprocedural states
CPT/HCPCS: 36415; 70450; 71045; 80053; 80306; 80320; 81000; 82550; 82553; 83735; 83874; 83880; 84484; 85025; 85610; 85730; 87088; 93005; 93041; 96374; 96375; 96376

== ENCOUNTER 2018-09-20 11:31 | Outpatient (RCR) | payer OTHER ==
[~2018-09-20 11:31] MED LIST changes: +NITR-65 PO; -TRAZ-189 PO; +TRAZ-222 PO
[2018-10-05] MEDS ORDERED: ONDA4TAB11 PO (12:13)
[2018-10-05] MEDS ORDERED: CEFU250T80 PO (12:13)
[2018-10-05] MEDS ORDERED: HYDR-4226 PO (12:13)
[2018-10-11] MEDS ORDERED: CLOP75TA69 PO (12:31)
[2018-10-11] MEDS ORDERED: ASPI-983 PO (12:31)
[2018-10-11] MEDS ORDERED: TAMS0.4C98 PO (12:31)
[2018-10-11] MEDS ORDERED: NITR100C10 PO (12:52)
[2018-10-11] MEDS ORDERED: PHEN-639 PO (12:52)
[2018-10-12] MEDS ORDERED: GEMF600T PO (07:40)
[2018-11-27] MEDS ORDERED: DOCU100C37 PO (11:24)
[2018-11-27] MEDS ORDERED: HYDR-4226 PO (11:34)
[2018-12-05] MEDS ORDERED: PANT40TA2 PO (16:52)
== END 2018-12-19 | disposition home or self-care (01) ==
LOC: ONC 11:31
PROVIDERS: ATTEND Radiology Radiation Oncology
DX: C61 Malignant neoplasm of prostate (principal)
CPT/HCPCS: 84153

== ENCOUNTER 2018-10-05 10:38 | Emergency (ER) | payer SELFPAY ==
[~2018-10-05] VITALS: Ht 175.3 cm; Wt 80.3 kg
[~2018-10-05 10:38] MED LIST changes: +TRAZ-189 PO; -TRAZ-222 PO
--- OUTSIDE RECORDS SUMMARY | 2018-10-05 10:43 | XMS REPORT | Encounter Summary ---
Author Author [facility] Organization [facility] Address Unknown Phone Unavailable Care Team Providers Care Bread Packer Name Role Phone Leroy Lao MD [address] Hernandes DO PCP Reason for Visit * Reason Comments Medication Refill Encounter Details Care Team Description Date Type Department David Simms MD [address] [id number] Medication Refill 07/31/2018 Refill [facility] [address] [facility] [place] [address] Social History Date Tobacco Use Types Packs/Day [...]
--- OUTSIDE RECORDS SUMMARY | 2018-10-05 10:43 | XMS REPORT | Clinical Summary ---
Author Author [facility] Organization [facility] Address Unknown Phone Unavailable Care Team Providers Care Overcoiler Name Role Phone Leroy Lao MD [address] Hernandes DO PCP Source Comments Some departments are not documenting in the electronic medical record. If you do not see the information that you expected, contact Release of Information in the Health Information Management department at [phone] for further assistance in locating additional records.[facility] Allergies Comments Active Allergy Reactions Severity Noted [...] 7 Coronary artery disease every 5 of sitka artery of minutes as sitka heart with stable needed for angina pectoris [...] Unstable angina 08/13/2016 Coronary artery disease of sitka artery of sitka heart with stable angina 08/09/2016 pectoris Overview: 07/29/16: heart cath ([place], [place]) - total occlusion of the right [...] Taken Vital Sign Reading 05/16/2017 3:11 PM HIGH RISK OB Blood Pressure 150/72 05/16/2017 3:11 PM HIGH RISK OB Pulse 73 03/06/2017 1:42 PM CDT Temperature 36.8 C (98.2 F) - Respiratory Rate - 03/06/2017 1:42 PM CDT Oxygen Saturation 96% - Inhaled Oxygen - Concentration 05/16/2017 3:11 PM HIGH RISK OB Weight 82.6 kg (182 lb) 05/16/2017 3:11 PM HIGH RISK OB Height 175.3 cm (5' 9") 05/16/2017 3:11 PM HIGH RISK OB Body Mass Index 26.88 Plan of Treatment Health Maintenance Due Date Last Done Comments HEPATITIS C SCREENING 1961 PHYSICAL (COMPREHENSIVE) 1968 EXAM HIV SCREENING 1976 DTAP/TDAP VACCINES (1 - 1979 Tdap) COLORECTAL CANCER 2011 SCREENING SHINGLES RECOMBINANT 2011 VACCINE (1 of 2) INFLUENZA VACCINE 01/18/2019 Results Not on filefrom Last 3 Months Advance Directives Patient has advance care planning documents, and code status on file. For more information, please contact: [facility] [address] [place] [address] Date Inactivated Comments Code Status Date Activated [...]
--- NOTE | 2018-10-05 10:55 | ED Abdominal Pain ---
General Chief Complaint: Abdominal/GI Problems Stated Complaint: LOWER ABD PAIN;DIZZINESS;VOMITING Source of Information: Patient Exam Limitations: No Limitations History of Present Illness Date Seen by Provider: Oct 05, 2018 Time Seen by Provider: 10:54 Initial Comments To ER with diffuse abdominal pain, diarrhea that is dark in color, nausea vomiting and dizziness as well as chills but no measured fever for 3 days. He is on aspirin and Plavix for coronary artery disease Timing/Duration: 2-3 Days Severity/Quality: Severe Location: Generalized Abdomen Radiation: No Radiation Activities at Onset: None Associated Symptoms: Nausea/Vomiting Allergies and Home Medications Allergies Coded Allergies: penicillin G (Verified Allergy, Severe, SWELLING, 12/22/17) Home Medications Alprazolam 0.25 Mg Tablet, 0.25 MG PO BID PRN for ANXIETY, (Reported) Amlodipine Besylate 10 Mg Tablet, 10 MG PO DAILY, (Reported) Atorvastatin Calcium 10 Mg Tablet, 10 MG PO HS, (Reported) Bupropion HCl 150 Mg Tablet.er, 150 MG PO BID, (Reported) Buspirone HCl 15 Mg Tablet, 15 MG PO TID, (Reported) Carvedilol 6.25 Mg Tablet, 6.25 MG PO BID, (Reported) Cefuroxime Axetil 250 Mg Tablet, 250 MG PO BID Prescribed by: VLAD AVELAR on 10/05/18 1213 Clonidine HCl 0.1 Mg Tablet, 0.1 MG PO TID, (Reported) Hydrocodone/Acetaminophen 1 Each Tablet, 1-2 EACH PO Q6H PRN for PAIN-MODERATE Prescribed by: JULISSA HERNÁNDEZ on 04/25/18 1202 Hydrocodone/Acetaminophen 1 Each Tablet, 1 EACH PO Q6H PRN for PAIN-MODERATE Prescribed by: VLAD AVELAR on 10/05/18 1213 Levofloxacin 250 Mg Tablet, 250 MG PO DAILY Prescribed by: BILL HUERTA on 07/19/18 1836 Losartan Potassium 100 Mg Tablet, 100 MG PO HS, (Reported) Nitrofurantoin Monohyd/M-Cryst 100 Mg Capsule, 100 MG PO BID Prescribed by: MORGAN LARES on 09/19/18 0146 Nitroglycerin 0.4 Mg Tab.subl, 0.4 MG SL UD PRN for CHEST PAIN, (Reported) PLACE 1 TAB UNDER TONGUE NEEDED FOR CHEST PAIN; IF PAIN REMAINS AFTER 5 MINUTES, CALL 911 [place]-3 Fatty Acids/Fish Oil 1 Each Capsule, 1,000 MG PO BID, (Reported) Ondansetron 4 Mg Tab.rapdis, 4 MG SL Q4H PRN for NAUSEA/VOMITING-1ST LINE Prescribed by: GUILLERMO MONK on 04/22/182127 Ondansetron 4 Mg Tab.rapdis, 4 MG PO Q6H PRN for PAIN-MODERATE TO SEVERE Prescribed by: VLAD AVELAR on 10/05/18 1213 Sertraline HCl 100 Mg Tablet, 100 MG PO DAILY, (Reported) Sertraline HCl 25 Mg Tablet, 25 MG PO DAILY, (Reported) TAKES ALONG WITH 100MG TABLET Sulfamethoxazole/Trimethoprim 1 Each Tablet, 1 EACH PO BID Prescribed by: GUILLERMO MONK on 04/22/182127 Sulfamethoxazole/Trimethoprim 1 Each Tablet, 1 EACH PO BID Prescribed by: GUILLERMO MONK on 08/11/18 193 Tamsulosin HCl 0.4 Mg Cap.er.24h, 0.4 MG PO DAILY@1800, (Reported) Patient Home Medication List Home Medication List Reviewed: Yes Review of Systems Review of Systems Constitutional: see HPI, chills EENTM: No Symptoms Reported Respiratory: No Symptoms Reported Cardiovascular: No Symptoms Reported Gastrointestinal: See HPI, Abdominal Pain, Diarrhea, Nausea, Vomiting Genitourinary: No Symptoms Reported Musculoskeletal: no symptoms reported Skin: no symptoms reported Psychiatric/Neurological: No Symptoms Reported Endocrine: No Symptoms Reported Hematologic/Lymphatic: No Symptoms Reported Past Zpetrtk-Xqnkza-Sjziqu Hx Patient Social History Alcohol Beverage of Choice: Beer Type Used: Cigarettes Former Smoker, Quit: Aug 24, 2016 2nd Hand Smoke Exposure: Yes Recent Foreign Travel: No Contact w/Someone Who Travel: No Recent Hopitalizations: No Immunizations Up To Date Tetanus Booster (TDap): Less than 5yrs PED Vaccines UTD: No Date of Influenza Vaccine: Jul 28, 2017 Seasonal Allergies Seasonal Allergies: No Past Medical History Surgeries: Yes (umb hernia, R thumb, ing hernia, 3 stents and baloon) Abdominal, Coronary Stent, Orthopedic Respiratory: Yes Sleep Apnea Currently Using CPAP: No Currently Using BIPAP: No Cardiac: Yes (BALLOON ON 07/28/17 ET STENT) Coronary Artery Disease, Deep Vein Thrombosis, Heart Attack, High Cholesterol, Hypertension Neurological: Yes (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) Headaches /Migraines, TIA Reproductive Disorders: No Sexually Transmitted Disease: No Genitourinary: Yes (recurrent urinary tract infections, prostate ca) Prostate Problems, Kidney Stones, UTI-Chronic Gastrointestinal: Yes Gastroesophageal Reflux, Hiatal Hernia, Ulcer Musculoskeletal: Yes Arthritis, Rheumatoid Arthritis, Back Injury, Chronic Back Pain, Fractures Endocrine: No HEENT: No Eye Injury Loss of Vision: Denies Hearing Impairment: Denies Cancer: Yes Prostate Did You Recieve Any Treatments: Yes What Type of Treatment Did You: Radiation Psychosocial: Yes (History of illicit and prescription drug abuse) Anxiety, Depression Integumentary: No Blood Disorders: No Adverse Reaction/Blood Tranf: No Family Medical History Arthritis 19 MOTHER FRUIT OR NUT FARM WORKER G8 SISTER FH: COPD (chronic obstructive pulmonary disease) Hypercholesterolemia 19 MOTHER Hypertension 19 MOTHER Heart Disease, Hypertension Physical Exam Vital Signs Vital Signs - First Documented 10/05/18 11:00 Temp 98.7 Pulse 104 Resp 15 B/P (MAP) 159/89 (112) Pulse Ox 98 Capillary Refill : Height/Weight/BMI Height: 5'9.00" Weight: 192lbs. 0.0oz. 87.454703lj; 28.1 BMI Method:Stated General Appearance: WD/WN, no apparent distress HEENT: PERRL/EOMI, normal ENT inspection Neck: non-tender, full range of motion Respiratory: no respiratory distress, no accessory muscle use Cardiovascular: regular rate, rhythm, no murmur Gastrointestinal: normal bowel sounds, soft, tenderness Extremities: normal range of motion, non-tender Neurologic/Psychiatric: alert, normal mood/affect, oriented x 3 Skin: normal color, warm/dry Progress/Results/Core Measures Results/Orders Lab Results Laboratory Tests Test 10/05/18 11:13 10/05/18 11:23 Range/Units White Blood Count 5.8 4.3-11.0 10^3/uL Red Blood Count 4.47 4.35-5.85 10^6/uL Hemoglobin 11.0 L 13.3-17.7 G/DL Hematocrit 36 L 40-54 % Mean Corpuscular Volume 80 80-99 FL Mean Corpuscular Hemoglobin 25 25-34 PG Mean Corpuscular Hemoglobin Concent 31 L 32-36 G/DL Red Cell Distribution Width 24.7 H 10.0-14.5 % Platelet Count 221 130-400 10^3/uL Mean Platelet Volume 10.1 7.4-10.4 FL Neutrophils (%) (Auto) 88 H 42-75 % Lymphocytes (%) (Auto) 8 L 12-44 % Monocytes (%) (Auto) 4 0-12 % Eosinophils (%) (Auto) 0 0-10 % Basophils (%) (Auto) 0 0-10 % Neutrophils # (Auto) 5.1 1.8-7.8 X 10^3 Lymphocytes # (Auto) 0.5 L 1.0-4.0 X 10^3 Monocytes # (Auto) 0.3 0.0-1.0 X 10^3 Eosinophils # (Auto) 0.0 0.0-0.3 10^3/uL Basophils # (Auto) 0.0 0.0-0.1 10^3/uL Neutrophils % (Manual) 90 % Lymphocytes % (Manual) 7 % Monocytes % (Manual) 3 % Blood Morphology Comment NORMAL Sodium Level 136 135-145 MMOL/L Potassium Level 3.8 3.6-5.0 MMOL/L Chloride Level 105 98-107 MMOL/L Carbon Dioxide Level 19 L 21-32 MMOL/L Anion Gap 12 5-14 MMOL/L Blood Urea Nitrogen 25 H 7-18 MG/DL Creatinine 1.77 H 0.60-1.30 MG/DL Estimat Glomerular Filtration Rate 40 BUN/Creatinine Ratio 14 Glucose Level 216 H 70-105 MG/DL Calcium Level 9.3 8.5-10.1 MG/DL Corrected Calcium 9.2 8.5-10.1 MG/DL Magnesium Level 1.6 L 1.8-2.4 MG/DL Total Bilirubin 0.4 0.1-1.0 MG/DL Aspartate Amino Transf (AST/SGOT) 11 5-34 U/L Alanine Aminotransferase (ALT/SGPT) 11 0-55 U/L Alkaline Phosphatase 164 H 40-136 U/L Total Protein 7.6 6.4-8.2 GM/DL Albumin 4.1 3.2-4.5 GM/DL Lipase 57 8-78 U/L Serum Alcohol < 10 <10 MG/DL Urine Color YELLOW Urine Clarity CLEAR Urine pH 5 5-9 Urine Specific Amigo 1.020 1.016-1.022 Urine Protein 2+ H NEGATIVE Urine Glucose (UA) NEGATIVE NEGATIVE Urine Ketones NEGATIVE NEGATIVE Urine Nitrite NEGATIVE NEGATIVE Urine Bilirubin NEGATIVE NEGATIVE Urine Urobilinogen NORMAL NORMAL MG/DL Urine Leukocyte Esterase 1+ H NEGATIVE Urine RBC (Auto) 3+ H NEGATIVE Urine RBC 5-10 H /HPF Urine WBC 5-10 H /HPF Urine Squamous Epithelial Cells RARE /HPF Urine Crystals NONE /LPF Urine Bacteria TRACE /HPF Urine Casts PRESENT /LPF Urine Hyaline Casts 5-10 H /LPF Urine Mucus NEGATIVE /LPF Urine Culture Indicated NO Urine Opiates Screen NEGATIVE NEGATIVE Urine Oxycodone Screen NEGATIVE NEGATIVE Urine Methadone Screen NEGATIVE NEGATIVE Urine Propoxyphene Screen NEGATIVE NEGATIVE Urine Barbiturates Screen NEGATIVE NEGATIVE Ur Tricyclic Antidepressants Screen NEGATIVE NEGATIVE Urine Phencyclidine Screen NEGATIVE NEGATIVE Urine Amphetamines Screen NEGATIVE NEGATIVE Urine Methamphetamines Screen NEGATIVE NEGATIVE Urine Benzodiazepines Screen NEGATIVE NEGATIVE Urine Cocaine Screen NEGATIVE NEGATIVE Urine Cannabinoids Screen NEGATIVE NEGATIVE My Orders Orders - VLAD AVELAR APRN Cbc With Automated Diff (10/05/18 10:49) Comprehensive Metabolic Panel (10/05/18 10:49) Drug Screen Stat (Urine) (10/05/18 10:49) Iv Heplock-Insert (Order) (10/05/18 10:49) Ct Abdomen/Pelvis W (10/05/18 10:53) Fentanyl Injection (Sublimaze Injection (10/05/18 11:00) Alcohol (10/05/18 10:53) Iohexol Injection (Omnipaque 350 Mg/Ml 1 (10/05/18 11:00) Received Contrast (Hold Metformin- Contr (10/05/18 11:00) Manual Differential (10/05/18 11:13) Ns Iv 1000 Ml (Sodium Chloride 0.9%) (10/05/18 11:45) Ketorolac Injection (Toradol Injection) (10/05/18 12:15) Ceftriaxone For Iv Use (Rocephin For I (10/05/18 12:30) Medications Given in ED Current Medications Medications Dose Ordered Sig/Mckenzie Route Start Time Stop Time Status Last Admin Dose Admin Ceftriaxone Sodium 1000 mg/ Sterile Water 10 ml @ 200 mls/hr ONCE ONCE IV 10/05/18 12:30 10/05/18 12:32 DC 10/05/18 12:45 200 MLS/HR Fentanyl Citrate 50 mcg ONCE ONCE IVP 10/05/18 11:00 10/05/18 11:01 DC 10/05/18 11:00 50 MCG Iohexol 100 ml ONCE ONCE IV 10/05/18 11:00 10/05/18 11:01 DC 10/05/18 11:44 100 ML Ketorolac Tromethamine 15 mg ONCE ONCE IVP 10/05/18 12:15 10/05/18 12:16 DC 10/05/18 12:46 15 MG Ondansetron HCl 8 mg ONCE ONCE IVP 10/05/18 11:00 10/05/18 11:01 DC 10/05/18 11:00 8 MG Vital Signs/I&O 10/05/18 11:00 Temp 98.7 Pulse 104 Resp 15 B/P (MAP) 159/89 (112) Pulse Ox 98 Departure Communication (Admissions) Family Conversation I spoke with Dr. Shi. He'll be leaving for [place] later today. he previously transfer this patient to [facility] for flexible ureteroscopy. Would recommend sending him back there 1256-I discussed with Dr. Adair holman from neurology at [facility]. Recommends pain control, call their office this week for follow-up. 1315-I called [facility] urology clinic. Patient will see Dr. Garcia's nurse practitioner Ester Ibarra Tuesday10/09/18 at 9:45 AM. NAME: EZEQU[facility]EL [facility] REC#: [id number] PT STATUS: REG ER : 1960 PHYSICIAN: VLAD AVELAR DOG RACES MANAGER ADMIT DATE: 10/05/18/ER Draft Date of Exam:10/05/18 CT ABDOMEN/PELVIS W PROCEDURE: CT abdomen and pelvis with contrast. TECHNIQUE: Multiple contiguous axial images were obtained through the abdomen and pelvis after administration of intravenous contrast. Auto Exposure Controls were utilized during the CT exam to meet ALARA standards for radiation dose reduction. INDICATION: Nausea, vomiting and diarrhea for 2 days as well as abdominal pain. COMPARISON is made with prior CT from 04/22/2018. FINDINGS: The lung bases are clear. No discrete liver mass is identified. The gallbladder is unremarkable. No biliary ductal dilatation is identified. The pancreas is unremarkable. No adrenal mass is identified. There continues to be moderate right hydroureteronephrosis. There is a stone in the distal right ureter measuring 6-7 mm in size. There are also at least 3 or 4 additional stones present in the distal right ureter just distal to the dominant calculus. Bladder is decompressed. Aorta is calcified but nonaneurysmal. There is a moderate-sized hiatal hernia present. Small and large bowel loops are normal caliber. No obstruction is seen. There is no ascites. No abdominal or pelvic lymphadenopathy is seen. Bony structures and nonacute. IMPRESSION: 1. Numerous distal right ureteric calculi producing moderate hydroureteronephrosis. Obstruction appears to be fairly high-grade as no contrast is seen within the right ureter. 2. No other significant abnormality in the abdomen or pelvis is identified. Dictated on workstation # [id number] Dict: 10/05/18 1146 Trans: 10/05/18 1156 [facility] [id number] Interpreted by: ROB BUTCHER MD Electronically signed by: Impression Primary Impression: Right ureteral calculus Disposition: 01 HOME, SELF-CARE Condition: Stable Departure-Patient Inst. Decision time for Depature: 12:11 Referrals: ANDRES RABAGO DO (PCP/Family) Primary Care Physician Patient Instructions: Kidney Stones in Adults Add. Discharge Instructions: 1. I called the [facility] urology clinic, he will see the nurse practitioner Ester Ibarra who works with Dr. Garcia on October 09 at 9:45 AM 2. Pain medication as directed 3. All discharge instructions reviewed with patient and/or family. in the meantime return to the emergency room for any concerns such as high fevers or any other new or worsening symptoms Dr La [address] [address] Scripts Cefuroxime Axetil (Cefuroxime) 250 Mg Tablet 250 MG PO BID, #14 TAB Prov: VLAD AVELAR APRN 10/05/18 Hydrocodone/Acetaminophen ([place] 5-325 Tablet) 1 Each Tablet 1 EACH PO Q6H PRN for PAIN-MODERATE MDD 10, #20 TAB Prov: VLAD AVELAR APRN 10/05/18 Ondansetron (Ondansetron Odt) 4 Mg Tab.rapdis 4 MG PO Q6H PRN for PAIN-MODERATE TO SEVERE, #14 TAB Prov: VLAD AVELAR APRN 10/05/18 VLAD AVELAR APRN Oct 05, 2018 10:55
[2018-10-05] MEDS ORDERED: fentaNYL INJECTION 100 MCG/2 ML AMP IVP ONE (11:00)
[2018-10-05] MEDS ORDERED: ONDANSETRON 4 MG/2 ML (SDV) Z0FRAN IVP ONE (11:00)
[2018-10-05] MEDS ORDERED: HOLD METFORMIN - RECEIVED CONTRAST 20 ML VIAL IV SCH (11:00)
[2018-10-05] MEDS ORDERED: IOHEXOL 350 MG/ML 100 ML (OMNIPAQUE 350) VIAL IV ONE (11:00)
[2018-10-05 11:18] LABS: BASOPHILS % (AUTO) 0 % (0-10); EOSINOPHILS % (AUTO) 0 % (0-10); HEMATOCRIT 36 % (40-54); LYMPHOCYTES # (AUTO) 0.5 X 10^3 (1.0-4.0); LYMPHOCYTES % (AUTO) 8 % (12-44); MEAN CORPUSCULAR HEMOGLOBIN 25 PG (25-34); MEAN CORPUSCULAR HGB CONC 31 G/DL (32-36); MEAN CORPUSCULAR VOLUME 80 FL (80-99); MEAN PLATELET VOLUME 10.1 FL (7.4-10.4); MONOCYTES # (AUTO) 0.3 X 10^3 (0.0-1.0); MONOCYTES % (AUTO) 4 % (0-12); NEUTROPHILS # (AUTO) 5.1 X 10^3 (1.8-7.8); NEUTROPHILS % (AUTO) 88 % (42-75); PLATELET COUNT 221 10^3/uL (130-400); RED CELL DISTRIBUTION WIDTH 24.7 % (10.0-14.5); WHITE BLOOD COUNT 5.8 10^3/uL (4.3-11.0)
[2018-10-05 11:30] LABS: BILIRUBIN,URINE NEGATIVE (NEGATIVE); CLARITY,URINE CLEAR; COLOR,URINE YELLOW; GLUCOSE, URINE (UA) NEGATIVE (NEGATIVE); KETONES,URINE NEGATIVE (NEGATIVE); LEUKOCYTE ESTERASE ,URINE 1+ (NEGATIVE); NITRITE,URINE NEGATIVE (NEGATIVE); PH,URINE 5 (5-9); PROTEIN,URINE 2+ (NEGATIVE); UROBILINOGEN,URINE NORMAL (NORMAL)
[2018-10-05 11:38] LABS: ALANINE AMINOTRANSFERASE 11 U/L (0-55); ALBUMIN 4.1 GM/DL (3.2-4.5); ALKALINE PHOSPHATASE 164 U/L (40-136); BILIRUBIN,TOTAL 0.4 MG/DL (0.1-1.0); BUN/CREATININE RATIO 14; CALCIUM 9.3 MG/DL (8.5-10.1); CARBON DIOXIDE 19 MMOL/L (21-32); CHLORIDE 105 MMOL/L (98-107); CREATININE SERUM 1.77 MG/DL (0.60-1.30); GFR ESTIMATED 40; GLUCOSE 216 MG/DL (70-105); LIPASE 57 U/L (8-78); MAGNESIUM 1.6 MG/DL (1.8-2.4); POTASSIUM 3.8 MMOL/L (3.6-5.0); SODIUM 136 MMOL/L (135-145); TOTAL PROTEIN 7.6 GM/DL (6.4-8.2)
[2018-10-05 11:45] LABS: BACTERIA,URINE TRACE /HPF; SQUAMOUS EPITHELIAL CELL,UR RARE /HPF
[2018-10-05] MEDS ORDERED: NS IV 1000 ML 1,000 ML IV SCH (11:45)
[2018-10-05 11:47] LABS: AMPHETAMINE SCREEN, URINE NEGATIVE (NEGATIVE); BARBITURATE SCREEN URINE NEGATIVE (NEGATIVE); BENZODIAZEPINES SCREEN URINE NEGATIVE (NEGATIVE); CANNABINOID SCREEN, URINE NEGATIVE (NEGATIVE); COCAINE SCREEN URINE NEGATIVE (NEGATIVE); METHADONE STAT NEGATIVE (NEGATIVE); METHAMPHETAMINE SCREEN URINE S NEGATIVE (NEGATIVE); OPIATE SCREEN URINE NEGATIVE (NEGATIVE); OXYCODONE STAT NEGATIVE (NEGATIVE); PROPOXYPHENE STAT NEGATIVE (NEGATIVE); TRICYCLIC ANTIDEPRESSANTS SCRE NEGATIVE (NEGATIVE)
--- NOTE | 2018-10-05 11:57 | Diagnostic Imaging Report ---
PROCEDURE: CT abdomen and pelvis with contrast. TECHNIQUE: Multiple contiguous axial images were obtained through the abdomen and pelvis after administration of intravenous contrast. Auto Exposure Controls were utilized during the CT exam to meet ALARA standards for radiation dose reduction. INDICATION: Nausea, vomiting and diarrhea for 2 days as well as abdominal pain. COMPARISON is made with prior CT from 04/22/2018. FINDINGS: The lung bases are clear. No discrete liver mass is identified. The gallbladder is unremarkable. No biliary ductal dilatation is identified. The pancreas is unremarkable. No adrenal mass is identified. There continues to be moderate right hydroureteronephrosis. There is a stone in the distal right ureter measuring 6-7 mm in size. There are also at least 3 or 4 additional stones present in the distal right ureter just distal to the dominant calculus. Bladder is decompressed. Aorta is calcified but nonaneurysmal. There is a moderate-sized hiatal hernia present. Small and large bowel loops are normal caliber. No obstruction is seen. There is no ascites. No abdominal or pelvic lymphadenopathy is seen. Bony structures and nonacute. IMPRESSION: 1. Numerous distal right ureteric calculi producing moderate hydroureteronephrosis. Obstruction appears to be fairly high-grade as no contrast is seen within the right ureter. 2. No other significant abnormality in the abdomen or pelvis is identified. Dictated by: Dictated on workstation # [id number]
[2018-10-05] MEDS ORDERED: CEFU250T80 PO (12:13)
[2018-10-05] MEDS ORDERED: ONDA4TAB11 PO (12:13)
[2018-10-05] MEDS ORDERED: HYDR-4226 PO (12:13)
[2018-10-05] MEDS ORDERED: KETOROLAC 30 MG/ML VIAL IVP ONE (12:15)
[2018-10-05 12:19] LABS: LYMPHOCYTES % (MANUAL) 7 %; MONOCYTES % (MANUAL) 3 %; NEUTROPHILS % (MANUAL) 90 %; RBC MORPH NORMAL
[2018-10-05] MEDS ORDERED: cefTRIAXone FOR IV USE 1,000 MG in WATER (STERILE) FOR INJECTION 10 ML IV ONE (12:30)
[2018-10-05 13:24] VITALS: BP 116/73
== END 2018-10-05 13:24 | disposition home or self-care (01) ==
LOC: EDUNIT# 10:38 → ER 10:39
DX: N13.2 Hydronephrosis with renal and ureteral calculous obstruction (principal); I25.10 Atherosclerotic heart disease of native coronary artery without angina pectoris; G47.30 Sleep apnea, unspecified; I25.2 Old myocardial infarction; E78.00 Pure hypercholesterolemia, unspecified; I10 Essential (primary) hypertension; F41.9 Anxiety disorder, unspecified; F32.9 Major depressive disorder, single episode, unspecified; M06.9 Rheumatoid arthritis, unspecified; K21.9 Gastro-esophageal reflux disease without esophagitis; G43.909 Migraine, unspecified, not intractable, without status migrainosus; Z82.49 Family history of ischemic heart disease and other diseases of the circulatory system; Z86.73 Personal history of transient ischemic attack (TIA), and cerebral infarction without residual deficits; Z87.19 Personal history of other diseases of the digestive system; Z92.21 Personal history of antineoplastic chemotherapy; Z87.442 Personal history of urinary calculi; Z87.440 Personal history of urinary (tract) infections; Z85.46 Personal history of malignant neoplasm of prostate; Z86.718 Personal history of other venous thrombosis and embolism; Z87.891 Personal history of nicotine dependence; Z95.5 Presence of coronary angioplasty implant and graft; Z88.0 Allergy status to penicillin; Z79.82 Long term (current) use of aspirin; Z79.02 Long term (current) use of antithrombotics/antiplatelets
CPT/HCPCS: 36415; 74177; 80053; 80306; 80320; 81000; 83690; 83735; 85007; 85027; 93041

== ENCOUNTER 2018-10-11 11:02 | Day surgery (SDC) | payer SELFPAY ==
[2018-10-11] VITALS (16 sets, daily range): BP systolic 134–197; BP diastolic 79–116
[~2018-10-11] VITALS: Ht 175.3 cm; Wt 77.1 kg
[~2018-10-11 11:02] MED LIST changes: +CEFU250T80 PO
[2018-10-11] MEDS ORDERED: HEParin 1000 UNIT/ML (10ML VIAL) FOR BOLUS ONE (11:07)
[2018-10-11] MEDS ORDERED: LIDOCAINE 1% INJ 20 ML 20 ML VIAL ONE (11:07)
[2018-10-11] MEDS ORDERED: NS IV 1000 ML 3,000 ML ONE (11:07)
[2018-10-11] MEDS ORDERED: NS IV 1000 ML 1,000 ML IV SCH (11:15)
[2018-10-11 11:33] LABS: HEMOGLOBIN 10.8 G/DL (13.3-17.7); MEAN PLATELET VOLUME 9.6 FL (7.4-10.4); RED CELL DISTRIBUTION WIDTH 23.7 % (10.0-14.5); WHITE BLOOD COUNT 3.5 10^3/uL (4.3-11.0)
--- NOTE | 2018-10-11 11:40 | Diagnostic Imaging Report ---
INDICATION: Preop for heart catheterization. Time of exam 11:24 AM Correlation is made with prior study from 09/18/2018. The heart size is normal. The pulmonary vascularity is unremarkable. The lungs are clear. No infiltrate, effusion or pneumothorax is detected. Impression: No acute cardiopulmonary process is detected. Dictated by: Dictated on workstation # [id number]
[2018-10-11 11:44] LABS: INR 0.9 (0.8-1.4); PROTHROMBIN TIME PATIENT 12.1 SEC (12.2-14.7)
[2018-10-11 11:53] LABS: ALANINE AMINOTRANSFERASE 23 U/L (0-55); ALBUMIN 4.1 GM/DL (3.2-4.5); ALKALINE PHOSPHATASE 149 U/L (40-136); BILIRUBIN,TOTAL 0.2 MG/DL (0.1-1.0); BUN/CREATININE RATIO 9; CALCIUM 9.4 MG/DL (8.5-10.1); CARBON DIOXIDE 26 MMOL/L (21-32); CHLORIDE 103 MMOL/L (98-107); CHOLESTEROL 189 MG/DL (< 200); CREATININE SERUM 1.18 MG/DL (0.60-1.30); GFR ESTIMATED > 60; GLUCOSE 106 MG/DL (70-105); HDL CHOLESTEROL 32 MG/DL (40-60); POTASSIUM 4.1 MMOL/L (3.6-5.0); SODIUM 140 MMOL/L (135-145); TRIGLYCERIDES 346 MG/DL (<150); VLDL CHOLESTEROL 69 MG/DL (5-40)
[2018-10-11] MEDS ORDERED: TAMS0.4C98 PO (12:31)
[2018-10-11] MEDS ORDERED: CLOP75TA69 PO (12:31)
[2018-10-11] MEDS ORDERED: ASPI-983 PO (12:31)
[2018-10-11] MEDS ORDERED: PHEN-639 PO (12:52)
[2018-10-11] MEDS ORDERED: NITR100C10 PO (12:52)
--- OUTSIDE RECORDS SUMMARY | 2018-10-11 13:08 | XMS REPORT | Encounter Summary ---
Author Author [facility] Organization [facility] Address Unknown Phone Unavailable Care Team Providers Care Mechanical Process Engineer Name Role Phone Leroy Lao MD [address] Silver Hernandes DO PCP Reason for Visit * Reason Comments Medication Refill Encounter Details Care Team Description Date Type Department David Simms MD [address] [id number] Medication Refill 07/31/2018 Refill [facility] [address] [facility] [place] [address] Social History Date Tobacco Use Types Packs/Day [...]
--- OUTSIDE RECORDS SUMMARY | 2018-10-11 13:08 | XMS REPORT | Clinical Summary ---
Author Author [facility] Organization [facility] Address Unknown Phone Unavailable Care Team Providers Care Needle Punch Operator Name Role Phone Leroy Lao MD [address] Silver Hernandes DO PCP Source Comments Some departments are not documenting in the electronic medical record. If you do not see the information that you expected, contact Release of Information in the Health Information Management department at [phone] for further assistance in locating additional records.[facility] Allergies Comments Active Allergy Reactions [...] 7 Coronary artery disease every 5 of red devil artery of minutes as red devil heart with stable needed for angina pectoris [...] Unstable angina 08/13/2016 Coronary artery disease of red devil artery of red devil heart with stable angina 08/09/2016 pectoris Overview: 07/29/16: heart cath ([place]ia [place], [place]) - total occlusion of the [...] Taken Vital Sign Reading 05/16/2017 3:11 PM HOP SORTER Blood Pressure 150/72 05/16/2017 3:11 PM HOP SORTER Pulse 73 03/06/2017 1:42 PM CDT Temperature 36.8 C (98.2 F) - Respiratory Rate - 03/06/2017 1:42 PM CDT Oxygen Saturation 96% - Inhaled Oxygen - Concentration 05/16/2017 3:11 PM HOP SORTER Weight 82.6 kg (182 lb) 05/16/2017 3:11 PM HOP SORTER Height 175.3 cm (5' 9") 05/16/2017 3:11 PM HOP SORTER Body Mass Index 26.88 Plan of Treatment [...] on file. For more information, please contact: [facility] [address] [place] [address] Date Inactivated Comments Code Status Date Activated [...]
[2018-10-11] MEDS ORDERED: fentaNYL INJECTION 100 MCG/2 ML AMP ONE (13:09)
[2018-10-11] MEDS ORDERED: MIDAZOLAM 5 MG/5 ML (VERSED) VIAL ONE (13:09)
--- NOTE | 2018-10-11 13:16 | Cardiac Procedure Note-CS/ASA ---
Pre-Procedure Note Pre-Op Procedure Note H&P Reviewed The H&P was reviewed, patient examined and no changes noted. Date H&P Reviewed: Oct 11, 2018 Time H&P Reviewed: 13:16 Conscious Sedation Pre-Proced Time 13:16 ASA Score 3 For ASA 3 and 4: Consider anesthesia and medical clearance. Also, for patients with a history of failed moderate sedation consider anesthesia. Airway Lungs Heart ASA score ASA 1: a normal healthy patient ASA 2: a patient with a mild systemic disease (mid diabetes, controlled hypertension, obesity x ASA 3: a patient with a severe systemic disease that limits activity (angina , COPD, prior Myocardial infarction) ASA 4: a patient with an incapacitating disease that is a constant threat to life (CHF, renal failure) ASA 5: a moribund patient not expected to survive 24 hrs. (ruptured aneurysm) ASA 6: a declared brain- patient whose organs are being harvested. For emergent operations, add the letter E after the classification Mallampati Classification Grade 3 Sedation Plan Analgesia, Amnesia, Plan communicated to team members, Discussed options with patient/fam, Discussed risks with patient/fam The patient is an appropriate candidate to undergo the planned procedure, sedation, and anesthesia. The patient immediately re-assessed prior to indication. ANDREA ELIAS MD Oct 11, 2018 13:16
[2018-10-11] MEDS ORDERED: NITRO DRIP 25000 MCG/D5W 250 ML IV ONE (13:51)
--- NOTE | 2018-10-11 14:07 | NUR ---
WENT OVER THE MED LIST ON THE CHART WITH THE PATIENT AND HE VERIFIED HOW HE TAKES HIS MEDICATIONS. I HAD A LIST FAXED OVER FROM [facility] AND CALLED [facility] FOR A LIST OF RECENTLY FILLED MEDICATIONS TO VERIFY. [facility] FILLED: 10-05-18 CEFUROXIME 250MG BID #40 (NO LONGER TAKING) 10-05-18 ZOFRAN ODT 4MG Q6H PRN #14 (NO LONGER TAKING) 09-22-18 BUSPIRONE 15MG TID #90 09-22-18 ZOLOFT 25MG DAILY #30 06-27-18 CLONIDINE 0.1MG TID #270 [facility]ILLOJANES FILLED: 10-09-18 PHENAZOPYRIDINE 100MG TID #30 10-09-18 NITROFURANTOIN MONO MCR 100MG BID #28 10-05-18 HYDROCODONE 5-325MG Q6H PRN #20 (NO LONGER TAKING) 09-06-18 FLOMAX 0.4MG DAILY #30 08-24-18 ATORVASTATIN 10MG HS #30 08-24-18 ZOLOFT 100MG DAILY #30 08-09-18 BUPROPION SR 150MG BID #180 08-09-18 LOSARTAN 100MG DAILY #90 07-17-18 PLAVIX 75MG DAILY #90 06-17-18 COREG 6.25MG BID #180 06-16-18 AMLODIPINE 10MG DAILY #90 HE TAKES ASPIRIN 81MG DAILY AND FISH OIL BID OTC. HE STATES HE ALSO HAS NITROGLYCERIN NEEDED.
[2018-10-11] MEDS ORDERED: ASPIRIN 325 MG (5 GR) TABLET ONE (14:09)
[2018-10-11] MEDS ORDERED: CLOPIDOGREL 300 MG (PLAVIX) TABLET PO ONE (14:09)
[2018-10-11] MEDS ORDERED: meTOprolol 5 MG/5 ML (LOPRESSOR) VIAL ONE (14:12)
[2018-10-11] MEDS ORDERED: PATIENT MAY USE OWN MEDS, ALL PO SCH (14:15)
--- NOTE | 2018-10-11 14:15 | Cardiac Cath Report ---
Cardiac Cath Report Physician (s)/Back Winder (s) Physician ANDREA ELIAS MD Pre-Procedure Diagnosis Pre-Procedure Diagnosis: coronary artery disease Post-Procedure Note Procedure Start Date: Oct 11, 2018 Name of Procedure: Left heart catheterization PTCA to RCA Findings/Procedure Note PROCEDURE NOTE: After explaining the procedure to the patient, all pros and cons were explained , all questions were answered. The patient signed the consent and then he was placed on the cardiac catheterization laboratory. Groin was prepped SL fashion local anesthesia was used. Sheath placed in the right femoral artery. Tino right and left catheter were used to access the coronary system. Tino right was advanced to the left ventricular cavity, pressure was measured, left ventricular gram was done, pullback LV to aorta was done. Next Patient was given 6000 units of heparin, if our guide was advanced to the right coronary artery over a long exchange J-wire, BMW wire was advanced through the right coronary artery, patient has severe stenosis at the proximal right coronary artery, I proceeded with balloon angioplasty using emerge 3 x 15 with 1 inflation, nitroglycerin was given, angiogram showed excellent results. At the end of the procedure the sheath was removed. I pulled the guide down to the right common iliac and angiogram was done to the right iliac artery, closure device deployed no complication noted. FINDINGS: Hemodynamics LV 197/24 end-diastolic pressure of 24 Aorta 187/92 mean of 117 ANATOMY: Left Main is free of obstructive disease Left Anterior Descending has patent stent with mild disease no obstructive disease Left Circumflex in the large obtuse marginal branch has a patent stent with no obstructive disease, severe stenosis at the proper small left circumflex branch , failed intervention in the past. Continue to monitor Right Coronory Artery has multiple stent with severe in-stent restenosis proximally, successful balloon angioplasty using emerge 3 x 15 with excellent results LV Gram was done showing normal left ventricular size and systolic function estimated ejection fraction 60 percent CONCLUSION: 1. Severe in-stent restenosis in the proximal right coronary artery, successful balloon angioplasty using emerge 3 x 15 mm with excellent results, mild disease at the distal right coronary artery. 2. Severe stenosis at the mid to distal proper small circumflex branch, failed intervention the past, treated medically. Still patent 3. Patent stents in the LAD and obtuse marginal branch with good flow, tortuous arteries 4. Normal left ventricular size and systolic function estimated ejection fraction 60 percent DISCUSSION AND RECOMMENDATION: continue to maximize medical therapy. Anesthesia Type: Conscious Sedation Estimated blood loss (mL): 15 ml Contrast Amount: 81 ml Total Radiation Dose: 628 mGy Post-Procedure Diagnosis Post-operative diagnosis: Unstable angina Coronary artery disease Hypertension Hyperlipidemia ANDREA ELIAS MD Oct 11, 2018 14:15
[2018-10-11] MEDS: PHENAZOPYRIDINE 100 MG (PYRIDIUM) TABLET PO SCH ×2 (15:34→21:08)
[2018-10-11] MEDS: NS IV 1000 ML 1,000 ML IV SCH (15:41)
--- NOTE | 2018-10-11 16:11 | NUR ---
NOTIFIED DR. ELIAS OF PT BLOOD PRESSURE 170'S/90'S NEW ORDER RECEIVED FOR MEDICATION. SEE EMAR.
[2018-10-11] MEDS ORDERED: cloNIDine 0.1 MG (CATAPRES) TAB PO NR ×2 (16:15→17:30)
[2018-10-11] MEDS ORDERED: NITROFURANTOIN 100 MG (MACROBID) CAPSULE PO SCH (17:00)
[2018-10-11] MEDS ORDERED: OMEGA 3 (FISH OIL) 1000 MG CAP PO SCH (17:00)
--- NOTE | 2018-10-11 17:25 | NUR ---
NOTIFIED DR. ELIAS AT THIS TIME OF PATIENT BLOOD PRESSURE STILL RISING. RECEIVED ORDERS TO REPEAT CLONODINE 0.1MG ET 5MG LOPRESSOR IV.
[2018-10-11] MEDS ORDERED: meTOprolol 5 MG/5 ML (LOPRESSOR) VIAL IV NR (17:30)
[2018-10-11] MEDS ORDERED: TAMSULOSIN 0.4 MG (FLOMAX) CAP PO SCH (21:00)
[2018-10-11] MEDS ORDERED: CARVEDILOL 6.25 MG (COREG) TAB PO SCH (21:00)
[2018-10-11] MEDS ORDERED: LOSARTAN 100 MG (COZAAR) TABLET PO SCH (21:00)
[2018-10-11] MEDS ORDERED: cloNIDine 0.1 MG (CATAPRES) TAB PO SCH (21:00)
[2018-10-11] MEDS ORDERED: buPROPion SR 150 MG (WELLBUTRIN SR) TAB PO SCH (21:00)
[2018-10-11] MEDS ORDERED: CLOPIDOGREL 75 MG (PLAVIX) TABLET PO SCH (21:00)
[2018-10-11] MEDS ORDERED: busPIRone 15 MG (BUSPAR) TABLET PO SCH (21:00)
[2018-10-11] MEDS ORDERED: ASPIRIN E.C. 81 MG (ECOTRIN) TAB PO SCH (21:00)
[2018-10-11] MEDS ORDERED: ATORVASTATIN 10 MG (LIPITOR) TABLET PO SCH (21:00)
[2018-10-12] VITALS: BP 146/79
[2018-10-12 03:51] LABS: HEMOGLOBIN 9.3 G/DL (13.3-17.7); MEAN PLATELET VOLUME 9.9 FL (7.4-10.4); RED CELL DISTRIBUTION WIDTH 23.5 % (10.0-14.5); WHITE BLOOD COUNT 3.6 10^3/uL (4.3-11.0)
[2018-10-12 04:00] VITALS: BP 140/86
[2018-10-12 04:16] LABS: BUN/CREATININE RATIO 10; CALCIUM 8.5 MG/DL (8.5-10.1); CARBON DIOXIDE 22 MMOL/L (21-32); CHLORIDE 107 MMOL/L (98-107); CREATININE SERUM 1.15 MG/DL (0.60-1.30); GFR ESTIMATED > 60; GLUCOSE 101 MG/DL (70-105); POTASSIUM 3.8 MMOL/L (3.6-5.0); SODIUM 139 MMOL/L (135-145)
[2018-10-12] MEDS: NS IV 1000 ML 1,000 ML IV SCH (05:43)
[2018-10-12] MEDS ORDERED: GEMF600T PO (07:40)
--- NOTE | 2018-10-12 07:40 | Discharge Inst-Post CATH ---
Discharge Inst-CATH/EP Post Cardiac Cath/EP D/C Inst Follow Up/Plan Appointment with Dr. Lao's office in 2-4 weeks <b>CARDIAC CATH/EP PROCEDURE DISCHARGE INSTRUCTIONS</b> Cardiac Rehab Please be expecting a follow up call from Cardiac Rehab within in one week. ACTIVITY * Go Home directly and rest. * Limit activity of the leg (or wrist if it was used) for 7 days including aerobics, swimming, jogging, bicycling, etc. * Restrict stair-climbing for 7 days if possible, if not, climb up with your non -cath leg, then bring together on the same step. * Avoid lifting, pushing, pulling or excessive movement of the affected extremity for 7 days. * Customary sexual activity may be resumed after 2 days-use caution not to use a position that strains or causes pain to the affected extremity. * No driving for 24 hours. * NO SMOKING. * Avoid straining for bowel movements for 7 days. * Gentle walking on level ground is allowed. * Returning to work will depend on the type of procedure and the results. Your doctor will discuss this with you. CALL YOUR DOCTOR FOR ANY OF THE FOLLOWING: *If bleeding from the puncture site occurs- Apply gentle pressure to site with clean cloth and call your doctor or EMS. * If a knot or lump forms under the skin, increases in size, or causes pain. * If bruising appears to be worsening or moving further down your leg instead of disappearing. * Temperature above 101 F. CARE OF YOUR GROIN INCISION; * Bruising or purple discoloration of the skin near the puncture site is common. * You may shower only, no bathtub bathing for 5 days. Be careful to avoid slipping as your leg may feel stiff. * If a closure device was used on your femoral artery, please see the attached guide regarding care of the device and your leg. * Leave dressing on FOR 24 hours. CARE OF YOUR WRIST INCISION; * Bruising or purple discoloration of the skin near the puncture site is common. * You may shower. * DO NOT submerge wrist. * Leave dressing on FOR 24 hours. ANDREA LAO MD Oct 12, 2018 07:40
--- NOTE | 2018-10-12 07:42 | Cardiology Progress Note ---
Subjective Date Seen by Provider: Oct 12, 2018 Time Seen by Provider: 07:41 Subjective/Events-last exam patient is laying down in bed, denied any chest pain, reporting some discomfort in his groin, no hematoma was noted Review of Systems General: No Chills, No Night Sweats, No Fatigue, No Malaise, No Appetite, No Other HEENT: No Head Aches, No Visual Changes, No Eye Pain, No Ear Pain, No Dysphasia , No Sinus Congestion, No Post Nasal Drip, No Sore Throat, No Other Pulmonary: No Dyspnea, No Cough, No Pleuritic Chest Pain, No Other Cardiovascular: No: Chest Pain, Palpitations, Orthopnea, Paroxysmal Noc. Dyspnea, Edema, Lt Headedness, Other Objective-Cardiology Exam Last Set of Vital Signs Vital Signs 10/12/18 10/12/18 04:00 07:00 Temp 97.1 Pulse 53 Resp 16 B/P (MAP) 140/86 (104) Pulse Ox 97 O2 Delivery Room Air Capillary Refill : Less Than 3 Seconds General: Alert, Oriented X3, Cooperative HEENT: Atraumatic, PERRLA Neck: Supple, No JVD, No Thyromegaly Lungs: Clear to Auscultation, Normal Air Movement Heart: Regular Rate, Normal S1, Normal S2, No Murmurs Abdomen: Normal Bowel Sounds, Soft, No Tenderness, No Hepatosplenomegaly, No Masses Extremities: No Clubbing, No Cyanosis, No Edema, Normal Pulses, No Tenderness/ Swelling Skin: No Rashes, No Breakdown, No Significant Lesion Neuro: Normal Gait, Normal Speech, Strength at 5/5 X4 Ext, Normal Tone, Sensation Intact Psych/Mental Status: Mental Status NL, Mood NL Results Lab Laboratory Tests 10/11/18 11:22 10/12/18 03:45 A/P-Cardiology Admission Diagnosis accelerating angina Coronary artery disease Hypertension Hyperlipidemia Assessment/Plan Accelerating angina, reporting improvement Coronary artery disease status post balloon angioplasty to the right coronary artery with good results Hypertension, continue current medication Hyperlipidemia/hypertriglyceridemia, maintained on Lipitor, add Lopid and monitor ANDREA ELIAS MD Oct 12, 2018 07:42
[2018-10-12 08:00] VITALS: BP 116/98
--- NOTE | 2018-10-12 08:15 | NUR ---
pt wishes to take home medication when he gets home as to not be charged for meds given by staff.
[2018-10-12] MEDS ORDERED: amLODIPine 10 MG (NORVASC) TAB PO SCH (09:00)
[2018-10-12] MEDS ORDERED: SERTRALINE 50 MG (ZOLOFT) TABLET PO SCH (09:00)
[2018-10-12] MEDS ORDERED: SERTRALINE 100 MG (ZOLOFT) TAB PO SCH (09:00)
== END 2018-10-12 09:02 | disposition home or self-care (01) ==
LOC: CATH 11:02 → ICU 14:26 → CATH 10-12 09:02
PROVIDERS: ATTEND Internal Medicine Cardiovascular Disease
DX: I25.119 Atherosclerotic heart disease of native coronary artery with unspecified angina pectoris (principal); I10 Essential (primary) hypertension; E78.5 Hyperlipidemia, unspecified; R06.09 Other forms of dyspnea; I08.3 Combined rheumatic disorders of mitral, aortic and tricuspid valves; I27.20 Pulmonary hypertension, unspecified; G43.909 Migraine, unspecified, not intractable, without status migrainosus; K21.9 Gastro-esophageal reflux disease without esophagitis; Z87.19 Personal history of other diseases of the digestive system; F32.9 Major depressive disorder, single episode, unspecified; C61 Malignant neoplasm of prostate; Z95.5 Presence of coronary angioplasty implant and graft; Z87.891 Personal history of nicotine dependence; Z79.899 Other long term (current) drug therapy; Z88.0 Allergy status to penicillin
CPT/HCPCS: 36415; 71045; 80048; 80053; 80061; 85027; 85610; 85730; 87081; 93005; 93458

== ENCOUNTER 2018-11-27 09:53 | Emergency (ER) | payer OTHER ==
[~2018-11-27] VITALS: Ht 175.3 cm; Wt 84.4 kg
[~2018-11-27 09:53] MED LIST changes: +CLOP75TA69 PO; +GEMF600T PO; +NITR100C10 PO; +PHEN-639 PO; -TRAZ-189 PO; +TRAZ-222 PO
[2018-11-27 10:20] LABS: BASOPHILS % (AUTO) 1 % (0-10); EOSINOPHILS # (AUTO) 0.2 10^3/uL (0.0-0.3); EOSINOPHILS % (AUTO) 4 % (0-10); HEMATOCRIT 36 % (40-54); HEMOGLOBIN 11.3 G/DL (13.3-17.7); LYMPHOCYTES # (AUTO) 0.7 X 10^3 (1.0-4.0); LYMPHOCYTES % (AUTO) 21 % (12-44); MEAN CORPUSCULAR HEMOGLOBIN 25 PG (25-34); MEAN CORPUSCULAR HGB CONC 31 G/DL (32-36); MEAN CORPUSCULAR VOLUME 81 FL (80-99); MEAN PLATELET VOLUME 9.2 FL (7.4-10.4); MONOCYTES # (AUTO) 0.4 X 10^3 (0.0-1.0); MONOCYTES % (AUTO) 12 % (0-12); NEUTROPHILS # (AUTO) 2.1 X 10^3 (1.8-7.8); NEUTROPHILS % (AUTO) 63 % (42-75); PLATELET COUNT 294 10^3/uL (130-400); RED CELL DISTRIBUTION WIDTH 19.2 % (10.0-14.5); WHITE BLOOD COUNT 3.4 10^3/uL (4.3-11.0)
[2018-11-27 10:34] LABS: INR 0.9 (0.8-1.4); PROTHROMBIN TIME PATIENT 12.4 SEC (12.2-14.7)
[2018-11-27 10:42] LABS: ALBUMIN 4.1 GM/DL (3.2-4.5); BILIRUBIN,TOTAL 0.3 MG/DL (0.1-1.0); CALCIUM 9.3 MG/DL (8.5-10.1); CREATININE SERUM 1.45 MG/DL (0.60-1.30); POTASSIUM 3.9 MMOL/L (3.6-5.0); TOTAL PROTEIN 7.7 GM/DL (6.4-8.2)
[2018-11-27] MEDS ORDERED: DOCU100C37 PO (11:24)
--- NOTE | 2018-11-27 11:26 | ED GI ---
General Chief Complaint: Rect Problems Stated Complaint: BLOOD IN STOOL Nursing Triage Note: AMB TO ROOM REPORTS NOTICED BLOOD IN STOOL TODAY. Sepsis Screen: No Definite Risk Source of Information: Patient Exam Limitations: No Limitations History of Present Illness Date Seen by Provider: Nov 27, 2018 Time Seen by Provider: 11:20 Initial Comments To ER with reports of blood on toilet paper after wiping after a bowel movement earlier this morning. Bowel movement itself was normal and it was followed by a bit of blood which was bright red. He denies lightheadedness. Vitals are stable. He is on blood thinners for history of stroke. He is scheduled for upper and lower GI endoscopy on 12/05/[address] Evans. Timing/Duration: 1 Hour Severity/Quality: Moderate Radiation: No Radiation Activities at Onset: None Allergies and Home Medications Allergies Coded Allergies: penicillin G (Verified Allergy, Severe, SWELLING, 12/22/17) atorvastatin (Verified Allergy, Unknown, PT TAKES AT HOME, 10/11/18) Home Medications Amlodipine Besylate 10 Mg Tablet, 10 MG PO DAILY, (Reported) LAST FILLED #90 06-16-18 Aspirin 81 Mg Tablet.dr, 81 MG PO HS, (Reported) Atorvastatin Calcium 10 Mg Tablet, 10 MG PO HS, (Reported) LAST FILLED #30 08-24-18 Bupropion HCl 150 Mg Tablet.er, 150 MG PO BID, (Reported) Buspirone HCl 15 Mg Tablet, 15 MG PO TID, (Reported) Carvedilol 6.25 Mg Tablet, 6.25 MG PO BID, (Reported) LAST FILLED #180 06-17-18 Clonidine HCl 0.1 Mg Tablet, 0.1 MG PO TID, (Reported) Clopidogrel Bisulfate 75 Mg Tablet, 75 MG PO HS, (Reported) Gemfibrozil 600 Mg Tablet, 600 MG PO BID Prescribed by: ANDREA ELIAS on 10/12/18 0740 Losartan Potassium 100 Mg Tablet, 100 MG PO HS, (Reported) Nitrofurantoin Monohyd/M-Cryst 100 Mg Capsule, 100 MG PO BID, (Reported) 14 DAY SUPPLY FILLED 10-09-18 Nitroglycerin 0.4 Mg Tab.subl, 0.4 MG SL UD PRN for CHEST PAIN, (Reported) PLACE 1 TAB UNDER TONGUE NEEDED FOR CHEST PAIN; IF PAIN REMAINS AFTER 5 MINUTES, CALL 911 [place]-3 Fatty Acids/Fish Oil 1 Each Capsule, 1,000 MG PO BID, (Reported) Phenazopyridine HCl 100 Mg Tablet, 100 MG PO TID, (Reported) 10 DAY SUPPLY FILLED 10-09-18 Sertraline HCl 100 Mg Tablet, 100 MG PO DAILY, (Reported) LAST FILLED #30 08-24-18 TAKES ALONG WITH 25MG TABLET Sertraline HCl 25 Mg Tablet, 25 MG PO DAILY, (Reported) TAKES ALONG WITH 100MG TABLET Tamsulosin HCl 0.4 Mg Cap, 0.4 MG PO HS, (Reported) Patient Home Medication List Home Medication List Reviewed: Yes Review of Systems Review of Systems Constitutional: see HPI EENTM: No Symptoms Reported Respiratory: No Symptoms Reported Cardiovascular: No Symptoms Reported Gastrointestinal: See HPI, Rectal Bleeding Genitourinary: No Symptoms Reported Musculoskeletal: no symptoms reported Skin: no symptoms reported Psychiatric/Neurological: No Symptoms Reported Endocrine: No Symptoms Reported Hematologic/Lymphatic: No Symptoms Reported Past Ymxmiwo-Buozuo-Chejni Hx Patient Social History Alcohol Use: Denies Use Alcohol Beverage of Choice: Beer Recreational Drug Use: No Smoking Status: Never a Smoker Type Used: Cigarettes Former Smoker, Quit: Aug 24, 2016 2nd Hand Smoke Exposure: Yes Recent Foreign Travel: No Contact w/Someone Who Travel: No Recent Infectious Disease Expo: No Recent Hopitalizations: No Immunizations Up To Date Tetanus Booster (TDap): Less than 5yrs PED Vaccines UTD: No Date of Influenza Vaccine: Jul 28, 2017 Seasonal Allergies Seasonal Allergies: No Past Medical History Surgeries: Yes (umb hernia, R thumb, ing hernia, 3 stents and baloon) Abdominal, Coronary Stent, Orthopedic Respiratory: Yes Sleep Apnea Currently Using CPAP: No Currently Using BIPAP: No Cardiac: Yes (BALLOON ON 07/28/17 ET STENT) Coronary Artery Disease, Deep Vein Thrombosis, Heart Attack, High Cholesterol, Hypertension Neurological: Yes (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) Headaches /Migraines, TIA Reproductive Disorders: No Sexually Transmitted Disease: No Genitourinary: Yes (recurrent urinary tract infections, prostate ca) Prostate Problems, Kidney Stones, UTI-Chronic Gastrointestinal: Yes Gastroesophageal Reflux, Hiatal Hernia, Ulcer Musculoskeletal: Yes Arthritis, Rheumatoid Arthritis, Back Injury, Chronic Back Pain, Fractures Endocrine: No HEENT: No Eye Injury Loss of Vision: Denies Hearing Impairment: Denies Cancer: Yes Prostate Did You Recieve Any Treatments: Yes What Type of Treatment Did You: Radiation Psychosocial: Yes (History of illicit and prescription drug abuse) Anxiety, Depression Integumentary: No Blood Disorders: No Adverse Reaction/Blood Tranf: No Family Medical History Arthritis 19 MOTHER CODING AND REIMBURSEMENT SPECIALIST G8 SISTER FH: COPD (chronic obstructive pulmonary disease) Hypercholesterolemia 19 MOTHER Hypertension 19 MOTHER Heart Disease, Hypertension Physical Exam Vital Signs Vital Signs - First Documented Capillary Refill : Less Than 3 Seconds Height/Weight/BMI Height: 5'9.00" Weight: 186lbs. 0.0oz. [id number]; 25.1 BMI Method:Stated General Appearance: WD/WN, no apparent distress HEENT: PERRL/EOMI, normal ENT inspection Respiratory: no respiratory distress, no accessory muscle use Gastrointestinal: normal bowel sounds, soft, tenderness (chronic tenderness right upper quadrant is being evaluated with gallbladder ultrasound later next week) Genital/Rectal: normal rectal exam (there are no fissures, no external hemorrhoids, on digital rectal exam there is no blood in the rectum) Extremities: normal range of motion, non-tender Neurologic/Psychiatric: alert, normal mood/affect, oriented x 3 Skin: normal color, warm/dry Progress/Results/Core Measures Results/Orders Lab Results Laboratory Tests Test 11/27/18 10:13 Range/Units White Blood Count 3.4 L 4.3-11.0 10^3/uL Red Blood Count 4.45 4.35-5.85 10^6/uL Hemoglobin 11.3 L 13.3-17.7 G/DL Hematocrit 36 L 40-54 % Mean Corpuscular Volume 81 80-99 FL Mean Corpuscular Hemoglobin 25 25-34 PG Mean Corpuscular Hemoglobin Concent 31 L 32-36 G/DL Red Cell Distribution Width 19.2 H 10.0-14.5 % Platelet Count 294 130-400 10^3/uL Mean Platelet Volume 9.2 7.4-10.4 FL Neutrophils (%) (Auto) 63 42-75 % Lymphocytes (%) (Auto) 21 12-44 % Monocytes (%) (Auto) 12 0-12 % Eosinophils (%) (Auto) 4 0-10 % Basophils (%) (Auto) 1 0-10 % Neutrophils # (Auto) 2.1 1.8-7.8 X 10^3 Lymphocytes # (Auto) 0.7 L 1.0-4.0 X 10^3 Monocytes # (Auto) 0.4 0.0-1.0 X 10^3 Eosinophils # (Auto) 0.2 0.0-0.3 10^3/uL Basophils # (Auto) 0.0 0.0-0.1 10^3/uL Prothrombin Time 12.4 12.2-14.7 SEC INR Comment 0.9 0.8-1.4 Activated Partial Thromboplast Time 28 24-35 SEC Sodium Level 138 135-145 MMOL/L Potassium Level 3.9 3.6-5.0 MMOL/L Chloride Level 103 98-107 MMOL/L Carbon Dioxide Level 25 21-32 MMOL/L Anion Gap 10 5-14 MMOL/L Blood Urea Nitrogen 11 7-18 MG/DL Creatinine 1.45 H 0.60-1.30 MG/DL Estimat Glomerular Filtration Rate 50 BUN/Creatinine Ratio 8 Glucose Level 120 H 70-105 MG/DL Calcium Level 9.3 8.5-10.1 MG/DL Corrected Calcium 9.2 8.5-10.1 MG/DL Total Bilirubin 0.3 0.1-1.0 MG/DL Aspartate Amino Transf (AST/SGOT) 20 5-34 U/L Alanine Aminotransferase (ALT/SGPT) 27 0-55 U/L Alkaline Phosphatase 161 H 40-136 U/L Total Protein 7.7 6.4-8.2 GM/DL Albumin 4.1 3.2-4.5 GM/DL Vital Signs/I&O 11/27/18 10:10 B/P (MAP) Departure Communication (Admissions) Spoke with Dr. Evans. We will put him on a stool softener and plan to proceed with colonoscopy on 12/05/18. Impression Primary Impression: Rectal bleeding Disposition: HOME, SELF-CARE Condition: Stable Departure-Patient Inst. Decision time for Depature: 11:23 Referrals: ANDRES RABAGO DO (PCP/Family) Primary Care Physician Patient Instructions: Bloody Stools Add. Discharge Instructions: 1. Since the blood was bright red and followed a bowel movement, it is most likely that this is from an internal hemorrhoid. However, he should return to the emergency room for any large volume bloody stools, lightheadedness or other concerns. Otherwise I spoke with Dr. Evans, plan is to continue with plan for colonoscopy on 12/05/18 All discharge instructions reviewed with patient and/or family. Voiced understanding. Scripts Docusate Sodium (Docusate Sodium) 100 Mg Capsule 100 MG PO BID, #14 CAP Prov: VLAD AVELAR APRN 11/27/18 VLAD AVELAR APRN Nov 27, 2018 11:26
[2018-11-27] MEDS ORDERED: HYDR-4226 PO (11:34)
[2018-11-27 11:37] VITALS: BP 194/100
== END 2018-11-27 11:37 | disposition home or self-care (01) ==
LOC: EDUNIT# 09:53 → ER 09:54
DX: K62.5 Hemorrhage of anus and rectum (principal); G47.30 Sleep apnea, unspecified; I25.10 Atherosclerotic heart disease of native coronary artery without angina pectoris; I25.2 Old myocardial infarction; E78.00 Pure hypercholesterolemia, unspecified; G43.909 Migraine, unspecified, not intractable, without status migrainosus; I10 Essential (primary) hypertension; K21.9 Gastro-esophageal reflux disease without esophagitis; M06.9 Rheumatoid arthritis, unspecified; F41.9 Anxiety disorder, unspecified; F32.9 Major depressive disorder, single episode, unspecified; Z82.49 Family history of ischemic heart disease and other diseases of the circulatory system; Z92.21 Personal history of antineoplastic chemotherapy; Z87.19 Personal history of other diseases of the digestive system; Z86.718 Personal history of other venous thrombosis and embolism; Z86.73 Personal history of transient ischemic attack (TIA), and cerebral infarction without residual deficits; Z87.448 Personal history of other diseases of urinary system; Z85.46 Personal history of malignant neoplasm of prostate; Z87.440 Personal history of urinary (tract) infections; Z79.02 Long term (current) use of antithrombotics/antiplatelets; Z88.0 Allergy status to penicillin; Z88.8 Allergy status to other drugs, medicaments and biological substances; Z79.82 Long term (current) use of aspirin; Z87.891 Personal history of nicotine dependence; Z95.5 Presence of coronary angioplasty implant and graft; Z98.890 Other specified postprocedural states
CPT/HCPCS: 36415; 80053; 85025; 85610; 85730

== ENCOUNTER → 2018-11-29 | Outpatient (CLI) | payer OTHER ==
[~2018-11-29] MED LIST changes: +DOCU100C37 PO
--- NOTE | 2018-11-29 10:09 | Diagnostic Imaging Report ---
Ultrasound nonvascular right wrist. Indication: Palpable lump There are no prior studies available for comparison. By history, the patient has a palpable abnormality along the anterolateral aspect of the wrist. The ultrasound examination of this area does show a 0.9 x 0.9 x 1.2 cm predominantly cystic area of mixed echogenicity in the region of concern. This may represent a complex ganglion cyst which has been complicated by infection and/or hemorrhage. It would be unlikely that this is neoplastic in nature. If further imaging is desired, MRI would recommended. Impression: There is a complex cystic mass in the area of patient's palpable abnormality. Considerations and recommendations as above. Dictated by: Dictated on workstation # [id number]
--- NOTE | 2018-11-29 10:20 | Diagnostic Imaging Report ---
PROCEDURE: US Gallbladder. TECHNIQUE: Multiple real-time grayscale images were obtained over the right upper quadrant in various projections. INDICATION: Abdominal pain There are no prior ultrasound examinations available for comparison. The CT abdomen/pelvic exam of 10/05/2018 noted partial obstruction of right collecting system due to multiple small calculi within the distal right ureter. There is no abnormality of the gallbladder or liver identified. On this study, there was no evidence for cholelithiasis or acute cholecystitis and the common bile duct is not dilated. The liver does not appear to be enlarged. There is no focal mass involving the liver and the biliary tree is not abnormally distended. Spectrum color flow imaging of the portal vein shows the vein is patent. The hydronephrosis of the right kidney seen on the prior exam has essentially resolved. There is still slight dilatation of the right renal pelvis. There is no sign of a solid renal mass. The pancreas and the proximal aorta and inferior vena cava were obscured by bowel gas. IMPRESSION: 1. There is no evidence for cholelithiasis or for acute cholecystitis. If clinical concern regarding an acute abnormality of the gallbladder persists and further imaging is desired, then a nuclear medicine hepatobiliary scan would be recommended. 2. The hydronephrosis of the right kidney seen previously has nearly completely resolved. There is no acute abnormality of the right kidney identified. Dictated by: Dictated on workstation # [id number]
== END ==
LOC: RAD 08:50
PROVIDERS: ATTEND Surgery
DX: N13.30 Unspecified hydronephrosis (principal); M71.331 Other bursal cyst, right wrist
CPT/HCPCS: 76705; 76881

== ENCOUNTER 2018-11-30 05:34 | Outpatient (CLI) | payer OTHER ==
[~2018-11-30] VITALS: Ht 175.3 cm; Wt 84.4 kg
== END 2018-11-30 14:13 ==
LOC: PREOP 05:34
PROVIDERS: ATTEND Surgery
DX: Z01.818 Encounter for other preprocedural examination (principal)

== ENCOUNTER 2018-12-06 12:04 | Emergency (ER) | payer OTHER ==
[~2018-12-06] VITALS: Ht 175.3 cm; Wt 84.4 kg
--- NOTE | 2018-12-06 12:14 | ED General ---
General Stated Complaint: SYNCOPE Source of Information: Patient Exam Limitations: No Limitations History of Present Illness Date Seen by Provider: Dec 06, 2018 Time Seen by Provider: 12:09 Initial Comments ER with reports of syncope while at rehabilitation this morning. He is brought over here by staff from cardiac rehabilitation. Blood pressure was found to be in the 70s systolic. Had a colonoscopy 2 days ago, hasn't eaten/drank much since. Timing/Duration: 1-2 Days Severity: Moderate Allergies and Home Medications Allergies Coded Allergies: penicillin G (Verified Allergy, Severe, SWELLING, 11/30/18) Home Medications Amlodipine Besylate 10 Mg Tablet, 10 MG PO DAILY, (Reported) LAST FILLED #90 06-16-18 Aspirin 81 Mg Tablet.dr, 81 MG PO HS, (Reported) Atorvastatin Calcium 10 Mg Tablet, 10 MG PO HS, (Reported) LAST FILLED #30 08-24-18 Bupropion HCl 150 Mg Tablet.er, 150 MG PO BID, (Reported) Buspirone HCl 15 Mg Tablet, 15 MG PO TID, (Reported) Carvedilol 6.25 Mg Tablet, 6.25 MG PO BID, (Reported) LAST FILLED #180 06-17-18 Clonidine HCl 0.1 Mg Tablet, 0.1 MG PO TID, (Reported) Clopidogrel Bisulfate 75 Mg Tablet, 75 MG PO HS, (Reported) Losartan Potassium 100 Mg Tablet, 100 MG PO HS, (Reported) Nitrofurantoin Monohyd/M-Cryst 100 Mg Capsule, 100 MG PO BID, (Reported) 14 DAY SUPPLY FILLED 10-09-18 Nitroglycerin 0.4 Mg Tab.subl, 0.4 MG SL UD PRN for CHEST PAIN, (Reported) PLACE 1 TAB UNDER TONGUE NEEDED FOR CHEST PAIN; IF PAIN REMAINS AFTER 5 MINUTES, CALL 911 [place]-3 Fatty Acids/Fish Oil 1 Each Capsule, 1,000 MG PO BID, (Reported) Pantoprazole Sodium 40 Mg Tablet.dr, 40 MG PO DAILY Prescribed by: MERLIN BISWAS on 12/05/18 1652 Sertraline HCl 100 Mg Tablet, 100 MG PO DAILY, (Reported) LAST FILLED #30 08-24-18 TAKES ALONG WITH 25MG TABLET Sertraline HCl 25 Mg Tablet, 25 MG PO DAILY, (Reported) TAKES ALONG WITH 100MG TABLET Patient Home Medication List Home Medication List Reviewed: Yes Review of Systems Review of Systems Constitutional: see HPI EENTM: see HPI Respiratory: no symptoms reported Cardiovascular: see HPI; No chest pain; syncope Genitourinary: no symptoms reported Musculoskeletal: no symptoms reported Skin: no symptoms reported Psychiatric/Neurological: No Symptoms Reported Hematologic/Lymphatic: No Symptoms Reported Immunological/Allergic: no symptoms reported Past Izuqddk-Kxzwcr-Mcqcbz Hx Patient Social History Alcohol Beverage of Choice: Beer Drug of Choice: + IV DRUG USE Type Used: Cigarettes Former Smoker, Quit: Aug 24, 2016 2nd Hand Smoke Exposure: Yes Recent Hopitalizations: No Immunizations Up To Date Tetanus Booster (TDap): Less than 5yrs PED Vaccines UTD: No Date of Influenza Vaccine: Jul 28, 2017 Seasonal Allergies Seasonal Allergies: No Past Medical History Surgeries: Yes (CRUSHED THUMB, HERNIA, ESWL, BRACH YTHERAPY) Coronary Stent, Orthopedic Respiratory: Yes Sleep Apnea Currently Using CPAP: No Currently Using BIPAP: No Cardiac: Yes (CARDIAC CATH WITH ANGIOPLASTY + STENT ON 07/28/17 ) Coronary Artery Disease, Deep Vein Thrombosis, Heart Attack, High Cholesterol, Hypertension Neurological: Yes (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) Headaches /Migraines, TIA Reproductive Disorders: No Sexually Transmitted Disease: No HIV/AIDS: No Genitourinary: Yes (recurrent urinary tract infections, prostate ca) Prostate Problems, Kidney Stones, UTI-Chronic Gastrointestinal: Yes Gastroesophageal Reflux, Chronic Diarrhea, Hiatal Hernia, Ulcer Musculoskeletal: Yes Arthritis, Rheumatoid Arthritis, Back Injury, Chronic Back Pain, Fractures Endocrine: No HEENT: Yes Eye Injury Loss of Vision: Denies Hearing Impairment: Denies Cancer: Yes Prostate Did You Recieve Any Treatments: Yes What Type of Treatment Did You: Radiation Psychosocial: Yes (History of illicit and prescription drug abuse) Anxiety, Depression Integumentary: No Blood Disorders: No Adverse Reaction/Blood Tranf: No (N/A) Family Medical History Arthritis 19 MOTHER PERSONALIZED LIVING MANAGER NURSE G8 SISTER FH: COPD (chronic obstructive pulmonary disease) Hypercholesterolemia 19 MOTHER Hypertension 19 MOTHER Heart Disease, Hypertension Physical Exam Vital Signs Vital Signs - First Documented 12/06/18 12:04 Pulse 65 Resp 18 B/P (MAP) 119/75 (90) Pulse Ox 95 Capillary Refill : Height, Weight, BMI Height: 5'9.00" Weight: 186lbs. 0.0oz. [id number]; 27.5 BMI Method:Stated General Appearance: No Apparent Distress, WD/WN Eyes: Bilateral Eye Normal Inspection, Bilateral Eye PERRL HEENT: PERRL/EOMI, TMs Normal, Normal ENT Inspection Neck: Full Range of Motion, Normal Inspection Respiratory: No Accessory Muscle Use, No Respiratory Distress Gastrointestinal: Normal Bowel Sounds, Non Tender, Soft Extremity: Normal Capillary Refill Neurologic/Psychiatric: Alert, Oriented x3 Skin: Normal Color, Warm/Dry Progress/Results/Core Measures Suspected Sepsis SIRS Temperature: Pulse: Respiratory Rate: Laboratory Tests 12/06/18 12:08: White Blood Count 5.8 Blood Pressure / Mean: Laboratory Tests 12/06/18 12:08: Creatinine 1.78H, INR Comment 0.9, Platelet Count 279, Total Bilirubin 0.4 Results/Orders Lab Results Laboratory Tests Test 12/06/18 12:08 Range/Units White Blood Count 5.8 4.3-11.0 10^3/uL Red Blood Count 4.22 L 4.35-5.85 10^6/uL Hemoglobin 10.8 L 13.3-17.7 G/DL Hematocrit 35 L 40-54 % Mean Corpuscular Volume 82 80-99 FL Mean Corpuscular Hemoglobin 26 25-34 PG Mean Corpuscular Hemoglobin Concent 31 L 32-36 G/DL Red Cell Distribution Width 18.0 H 10.0-14.5 % Platelet Count 279 130-400 10^3/uL Mean Platelet Volume 9.2 7.4-10.4 FL Neutrophils (%) (Auto) 68 42-75 % Lymphocytes (%) (Auto) 17 12-44 % Monocytes (%) (Auto) 12 0-12 % Eosinophils (%) (Auto) 3 0-10 % Basophils (%) (Auto) 1 0-10 % Neutrophils # (Auto) 4.0 1.8-7.8 X 10^3 Lymphocytes # (Auto) 1.0 1.0-4.0 X 10^3 Monocytes # (Auto) 0.7 0.0-1.0 X 10^3 Eosinophils # (Auto) 0.2 0.0-0.3 10^3/uL Basophils # (Auto) 0.0 0.0-0.1 10^3/uL Prothrombin Time 12.7 12.2-14.7 SEC INR Comment 0.9 0.8-1.4 Activated Partial Thromboplast Time 31 24-35 SEC Sodium Level 137 135-145 MMOL/L Potassium Level 3.9 3.6-5.0 MMOL/L Chloride Level 102 98-107 MMOL/L Carbon Dioxide Level 24 21-32 MMOL/L Anion Gap 11 5-14 MMOL/L Blood Urea Nitrogen 11 7-18 MG/DL Creatinine 1.78 H 0.60-1.30 MG/DL Estimat Glomerular Filtration Rate 40 BUN/Creatinine Ratio 6 Glucose Level 151 H 70-105 MG/DL Calcium Level 9.5 8.5-10.1 MG/DL Corrected Calcium 9.4 8.5-10.1 MG/DL Magnesium Level 2.0 1.8-2.4 MG/DL Total Bilirubin 0.4 0.1-1.0 MG/DL Aspartate Amino Transf (AST/SGOT) 13 5-34 U/L Alanine Aminotransferase (ALT/SGPT) 20 0-55 U/L Alkaline Phosphatase 181 H 40-136 U/L Myoglobin 115.1 H 10.0-92.0 NG/ML Troponin I < 0.028 <0.028 NG/ML Total Protein 7.8 6.4-8.2 GM/DL Albumin 4.1 3.2-4.5 GM/DL My Orders Orders - VLAD AVELAR SPINNING LATHE OPERATOR Cbc With Automated Diff (12/06/18 12:08) Magnesium (12/06/18 12:08) Chest 1 View, Ap/Pa Only (12/06/18 12:08) Ekg Tracing (12/06/18 12:08) Cardiac Profile 1 (12/06/18 12:08) Comprehensive Metabolic Panel (12/06/18 12:08) Myoglobin Serum (12/06/18 12:08) Protime With Inr (12/06/18 12:08) Partial Thromboplastin Time (12/06/18 12:08) O2 (12/06/18 12:08) Monitor-Rhythm Ecg Trace Only (12/06/18 12:08) Lipid Panel (12/07/18 06:00) Ed Iv/Invasive Line Start (12/06/18 12:08) Aspirin Chewable Tablet (Baby Aspirin Ch (12/06/18 12:15) Lactated Ringers (Lr 1000 Ml Iv Solution (12/06/18 12:15) Ns Iv 500 Ml (Sodium Chloride 0.9%) (12/06/18 14:00) Medications Given in ED Current Medications Medications Dose Ordered Sig/Mckenzie Route Start Time Stop Time Status Last Admin Dose Admin Aspirin 324 mg ONCE ONCE PO 12/06/18 12:15 12/06/18 12:16 DC 12/06/18 12:19 324 MG Vital Signs/I&O 12/06/18 12:04 Pulse 65 Resp 18 B/P (MAP) 119/75 (90) Pulse Ox 95 Capillary Refill : Departure Communication (Admissions) 1352-blood pressure 112/75. Heart rate 57 no ectopy, 98% room air. I suspect he was a bit volume depleted from the colonoscopy prep Impression Primary Impression: Volume depletion Disposition: 01 HOME, SELF-CARE Condition: Stable Departure-Patient Inst. Decision time for Depature: 14:08 Referrals: ANDRES RABAGO DO (PCP/Family) Primary Care Physician Patient Instructions: Dehydration, Adult (DC) Add. Discharge Instructions: 1. Increase her fluid intake 2. Follow-up with your doctor next week VLAD AVELAR APRN Dec 06, 2018 12:14
[2018-12-06] MEDS ORDERED: ASPIRIN 81 MG CHEW (CHILDREN'S ASA) PO ONE (12:15)
[2018-12-06] MEDS ORDERED: LACTATED RINGERS 1,000 ML IV SCH (12:15)
[2018-12-06 12:27] LABS: BASOPHILS % (AUTO) 1 % (0-10); EOSINOPHILS # (AUTO) 0.2 10^3/uL (0.0-0.3); EOSINOPHILS % (AUTO) 3 % (0-10); HEMATOCRIT 35 % (40-54); HEMOGLOBIN 10.8 G/DL (13.3-17.7); LYMPHOCYTES % (AUTO) 17 % (12-44); MEAN CORPUSCULAR HEMOGLOBIN 26 PG (25-34); MEAN CORPUSCULAR HGB CONC 31 G/DL (32-36); MEAN CORPUSCULAR VOLUME 82 FL (80-99); MEAN PLATELET VOLUME 9.2 FL (7.4-10.4); MONOCYTES # (AUTO) 0.7 X 10^3 (0.0-1.0); MONOCYTES % (AUTO) 12 % (0-12); NEUTROPHILS % (AUTO) 68 % (42-75); PLATELET COUNT 279 10^3/uL (130-400); WHITE BLOOD COUNT 5.8 10^3/uL (4.3-11.0)
[2018-12-06 12:41] LABS: INR 0.9 (0.8-1.4); PROTHROMBIN TIME PATIENT 12.7 SEC (12.2-14.7)
--- NOTE | 2018-12-06 12:45 | Diagnostic Imaging Report ---
INDICATION: Altered mental status. EXAMINATION: Frontal chest obtained at 12:18 p.m. and is compared to 10/11/2018. FINDINGS: Heart and mediastinal silhouette are normal in appearance. There is a question of minimal infiltrate in the left perihilar region. The right lung is clear. There is no pneumothorax or pleural fluid. IMPRESSION: Questionable mild infiltrate in left perihilar region. Lungs are otherwise clear. There is no new abnormality otherwise seen. Consider followup as clinically warranted. Dictated by: Dictated on workstation # [id number]
[2018-12-06 13:50] LABS: ALANINE AMINOTRANSFERASE 20 U/L (0-55); ALBUMIN 4.1 GM/DL (3.2-4.5); ALKALINE PHOSPHATASE 181 U/L (40-136); BILIRUBIN,TOTAL 0.4 MG/DL (0.1-1.0); BUN/CREATININE RATIO 6; CALCIUM 9.5 MG/DL (8.5-10.1); CARBON DIOXIDE 24 MMOL/L (21-32); CHLORIDE 102 MMOL/L (98-107); CREATININE SERUM 1.78 MG/DL (0.60-1.30); GFR ESTIMATED 40; GLUCOSE 151 MG/DL (70-105); POTASSIUM 3.9 MMOL/L (3.6-5.0); SODIUM 137 MMOL/L (135-145); TOTAL PROTEIN 7.8 GM/DL (6.4-8.2)
[2018-12-06] MEDS ORDERED: NS IV 500 ML 500 ML IV SCH (14:00)
[2018-12-06 14:48] VITALS: BP 144/78
--- OUTSIDE RECORDS SUMMARY | 2018-12-06 20:55 | XMS REPORT | Clinical Summary ---
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
--- OUTSIDE RECORDS SUMMARY | 2018-12-06 20:56 | XMS REPORT | Encounter Summary ---
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 CONTR+POST STAT 03/06/2017 PRO 1:04 AM CDT documented in this encounter Results * ECG-SCAN (03/14/2017 12:20 PM CDT) Narrative Performed At Ordered by an unspecified provider. * ECG-SCAN (03/14/2017 12:19 PM CDT) Narrative Performed At Ordered by an unspecified provider. * MRI HEAD WO/W CONTRAST (03/06/2017 3:56 AM CDT) Specimen Impressions Performed At 1.No evidence of acute or recent infarct, intracranial hemorrhage, or mass [facility] RES[facility] effect. 2.Stable old right basal ganglia lacunar infarct. Approved by Amos Sheppard M.D. on 03/06/2017 8:06 AM By my electronic signature, I attest that I have personally reviewed the images for this examination and formulated the interpretations and opinions expressed in this report Finalized by Gabo Rhoades M.D. on 03/06/2017 8:54 AM. Dictated by Amos Sheppard M.D. on 03/06/2017 6:59 AM. Narrative Performed At EXAM: MRI BRAIN [facility] RESULTS HISTORY: 56-year-old male, evaluate for ischemic stroke [...] area of abnormal contrast enhancement. The vascular flow-voids are unremarkable. Diffusion weighted imaging is not [...] Amos Sheppard M.D. on 03/06/2017 6:59 AM. Performing Organization Address [facility] [place] Phone Number [facility] RESULTS * PHENCYCLIDINES-URINE RANDOM (03/06/2017 1:44 AM CDT) Phencyclidine NEG NEG-NEG [facility] (PCP) Comment: RESULTS WERE OBTAINED BY IMMUNOASSAY AND ARE PRESUMPTIVE ONLY. POSITIVE INDICATES THE PRESENCE OF SUBSTANCE WITH CHARACTERISTICS SIMILAR TO DRUG-DRUG CLASS OR METABOLITE IN CONC. EQUAL TO OR EXCEEDING VALUES LISTED. PHENCYCLIDINE (PCP)25 NG/ML Specimen Urine - Urine Performing Organization Address [facility] [place] Phone Number MAIN LAB [address] [place] [address] * OPIATES-URINE RANDOM (03/06/2017 1:44 AM CDT) Opiates-Urine NEG NEG-NEG [facility] Comment: RESULTS WERE OBTAINED BY IMMUNOASSAY AND ARE PRESUMPTIVE ONLY. POSITIVE INDICATES THE PRESENCE OF SUBSTANCE WITH CHARACTERISTICS SIMILAR TO DRUG-DRUG CLASS OR METABOLITE IN CONC. EQUAL TO OR EXCEEDING VALUES LISTED. OPIATES 2000 NG/ML Specimen Urine - Urine Performing Organization Address [facility] [place] Phone Number MAIN LAB [address] [place] [address] * COCAINE-URINE RANDOM (03/06/2017 1:44 AM CDT) Cocaine-Urine NEG NEG-NEG [facility] Comment: RESULTS WERE OBTAINED BY IMMUNOASSAY AND ARE PRESUMPTIVE ONLY. POSITIVE INDICATES THE PRESENCE OF SUBSTANCE WITH CHARACTERISTICS SIMILAR TO DRUG-DRUG CLASS OR METABOLITE IN CONC. EQUAL TO OR EXCEEDING VALUES LISTED. COCAINE 300 NG/ML Specimen Urine - Urine Performing Organization Address [facility] [place] Phone Number MAIN LAB [address] [place] [address] * CANNABINOIDS-URINE RANDOM (03/06/2017 1:44 AM CDT) THC NEG NEG-NEG [facility] Comment: RESULTS WERE OBTAINED BY IMMUNOASSAY AND ARE PRESUMPTIVE ONLY. POSITIVE INDICATES THE PRESENCE OF SUBSTANCE WITH CHARACTERISTICS SIMILAR TO DRUG-DRUG CLASS OR METABOLITE IN CONC. EQUAL TO OR EXCEEDING VALUES LISTED. CANNABINOIDS 50 NG/ML Specimen Urine - Urine Performing Organization Address [facility] Phone Number [facility] [address] [place] [address] * BENZODIAZEPINES-URINE RANDOM (03/06/2017 1:44 AM CDT) Benzodiazepines NEG NEG-NEG MAIN LAB Comment: RESULTS WERE OBTAINED BY IMMUNOASSAY AND ARE PRESUMPTIVE ONLY. POSITIVE INDICATES THE PRESENCE OF SUBSTANCE WITH CHARACTERISTICS SIMILAR TO DRUG-DRUG CLASS OR METABOLITE IN CONC. EQUAL TO OR EXCEEDING VALUES LISTED. BENZODIAZEPINES 200 NG/ML Specimen Urine - Urine Performing Organization Address [facility] Phone Number MA[facility] LAB [address] [place] [address] * BARBITURATES-URINE RANDOM (03/06/2017 1:44 AM CDT) Barbiturates,Ur NEG NEG-NEG MAIN LAB ine Comment: RESULTS WERE OBTAINED BY IMMUNOASSAY AND ARE PRESUMPTIVE ONLY. POSITIVE INDICATES THE PRESENCE OF SUBSTANCE WITH CHARACTERISTICS SIMILAR TO DRUG-DRUG CLASS OR METABOLITE IN CONC. EQUAL TO OR EXCEEDING VALUES LISTED. BARBITURATES 200 NG/ML Specimen Urine - Urine Performing Organization Address [facility] [place] Phone Number [facility] [address] [place] [address] * AMPHETAMINES-URINE RANDOM (03/06/2017 1:44 AM CDT) Amphetamines NEG NEG-NEG MAIN LAB Comment: RESULTS WERE OBTAINED BY IMMUNOASSAY AND ARE PRESUMPTIVE ONLY. POSITIVE INDICATES THE PRESENCE OF SUBSTANCE WITH CHARACTERISTICS SIMILAR TO DRUG-DRUG CLASS OR METABOLITE IN CONC. EQUAL TO OR EXCEEDING VALUES LISTED. AMPHETAMINES 1000 NG/ML Specimen Urine - Urine Performing Organization Address [facility] Phone Number [facility] [address] [place] [address] * ALCOHOL LEVEL (03/06/2017 1:22 AM CDT) Alcohol <10 MG/DL MAIN LAB Specimen Blood Performing Organization Address [facility] [place] Phone Number MAIN LAB [address] [place] [address] * PHOSPHORUS (03/06/2017 1:22 AM CDT) Phosphorus 3.8 2.0 - 4.0 MG/DL [facility] Specimen Blood Performing Organization Address [facility] Phone Number [facility] LAB [address] [place] [address] * MAGNESIUM (03/06/2017 1:22 AM CDT) Magnesium 1.8 1.6 - 2.6 mg/dL [facility] Specimen Blood Performing Organization Address [facility] Phone Number [facility] [address] [place] [address] * COMPREHENSIVE METABOLIC PANEL (03/06/2017 1:22 AM CDT) Sodium 134 (L) 137 - 147 MMOL/L [facility] Potassium 4.5 3.5 - 5.1 MMOL/L [facility] Chloride 102 98 - 110 MMOL/L [facility] Glucose 93 70 - 100 MG/DL [facility] Blood Urea 27 (H) 7 - 25 MG/DL [facility] Nitrogen Creatinine 1.58 (H) 0.4 - 1.24 MG/DL [facility] Calcium 9.3 8.5 - 10.6 MG/DL [facility] Total Protein 7.2 6.0 - 8.0 G/DL [facility] Total Bilirubin 0.3 0.3 - 1.2 MG/DL [facility] Albumin 4.1 3.5 - 5.0 G/DL [facility] Alk Phosphatase 135 (H) 25 - 110 U/L [facility] AST (SGOT) 18 7 - 40 U/L [facility] CO2 27 21 - 30 MMOL/L [facility] ALT (SGPT) 24 7 - 56 U/L [facility] Anion Gap 5 3 - 12 [facility] eGFR Non 46 (L) >60 mL/min [facility] Comment: Croatian The eGFR is not validated for use in drug dosing adjustments.Continue to use estimated creatinine clearance per dosing reference text.Please contact the Clinical Pharmacist for questions. eGFR 55 (L) >60 mL/min [facility] [place]ian Comment: The eGFR is not validated for use in drug dosing adjustments.Continue to use estimated creatinine clearance per dosing reference text.Please contact the Clinical Pharmacist for questions. Specimen Blood Performing Organization Address City/[facility]/Zipcode Phone Number MAIN LAB [address] [place] [address] * PROTIME INR (PT) (03/06/2017 1:22 AM CDT) INR 1.0 0.8 - 1.2 [facility] Specimen Blood Performing Organization Address [facility]/Zipcode Phone Number MAIN LAB [address] [place] [phone] * CBC (03/06/2017 1:22 AM CDT) White Blood 5.3 4.5 - 11.0 K/UL [facility] Cells RBC 4.09 (L) 4.4 - 5.5 M/UL [facility] Hemoglobin 12.5 (L) 13.5 - 16.5 GM/DL [facility] Hematocrit 36.7 (L) 40 - 50 % [facility] MCV 89.7 80 - 100 FL [facility] MCH 30.6 26 - 34 PG [facility] MCHC 34.2 32.0 - 36.0 G/DL [facility] RDW 13.5 11 - 15 % [facility] Platelet Count 243 150 - 400 K/UL [facility] MPV 7.9 7 - 11 FL [facility] Specimen Blood Performing Organization Address [facility] Phone Number [facility] [address] [place] [phone] * CT BRAIN PERF (03/06/2017 1:04 AM CDT) Specimen Impressions Performed At CTA head: [facility] RES[facility] 1.No evidence of significant intracranial arterial stenosis [...] Palm M.D. on 03/06/2017 1:08 AM. Narrative Performed At EXAM: CTA HEAD AND NECK, CTA BRAIN PERFUSION [facility] RESULTS HISTORY: 56-year-old male, right sided weakness. TECHNIQUE: [...] stenosis. There is origin of the right LOCATION WORKER. The anterior, middle, and posterior cerebral arteries [...] stenosis. There is origin of the right LOCATION WORKER. The anterior, middle, and posterior cerebral arteries [...] Jin Palm M.D. on 03/06/2017 1:08 AM. Performing Organization Address City/State/Zipcode Phone Number [facility] * CTA NECK WO/W CONTRAST+POST P (03/06/2017 1:04 AM CDT) Specimen Impressions Performed At CTA head: [facility] 1.No evidence of significant intracranial arterial stenosis [...] Palm M.D. on 03/06/2017 1:08 AM. Narrative Performed At EXAM: CTA HEAD AND NECK, CTA BRAIN PERFUSION [facility] RESULTS HISTORY: 56-year-old male, right sided weakness. TECHNIQUE: [...] stenosis. There is origin of the right LOCATION WORKER. The anterior, middle, and posterior cerebral arteries [...] stenosis. There is origin of the right LOCATION WORKER. The anterior, middle, and posterior cerebral arteries [...] Jin Palm M.D. on 03/06/2017 1:08 AM. Performing Organization Address City/State/Zipcode Phone Number [facility] * CTA HEAD WO/W CONTR+POST PRO (03/06/2017 1:04 AM CDT) Specimen Impressions Performed At CTA head: [facility] RES[facility] 1.No evidence of significant intracranial arterial stenosis [...] Palm M.D. on 03/06/2017 1:08 AM. Narrative Performed At EXAM: CTA HEAD AND NECK, CTA BRAIN PERFUSION [facility] RESULTS HISTORY: 56-year-old male, right sided weakness. TECHNIQUE: [...] stenosis. There is origin of the right LOCATION WORKER. The anterior, middle, and posterior cerebral arteries [...] stenosis. There is origin of the right LOCATION WORKER. The anterior, middle, and posterior cerebral arteries [...] Jin Palm M.D. on 03/06/2017 1:08 AM. Performing Organization Address City/State/Zipcode Phone Number [facility] RES[facility] documented in this encounter Visit Diagnoses Diagnosis Nonintractable headache, unspecified chronicity pattern, unspecified headache type - Primary Weakness Other malaise and fatigue Episode of transient neurologic symptoms Other symptoms involving nervous and musculoskeletal systems documented in this encounter Administered Medications Action Date Dose Rate Site Medication Order MAR Action 03/06/2017 2:27 PM CDT 650 mg acetaminophen (TYLENOL) tablet 650 mg Given 650 mg, Oral, EVERY 4 HOURS PRN, Starting 03/06/17 at 0200, Until 03/06/17 at 2113, Pain non-opioid: may be used alone or in combination with opioid analgesia, TOTAL ACETAMINOPHEN DOSE NOT TO EXCEED 4GM DAILY, 650 mg Given 03/06/2017 10:02 AM CDT 650 mg Given 03/06/2017 2:32 AM CDT 03/06/2017 9:55 AM CDT 10 mg amLODIPine (NORVASC) tablet 10 mg Given 10 mg, Oral, DAILY, First dose on 03/06/17 at 0900, Until Discontinued, NURSING: Please educate patient and document: Do not give with grapefruit juice., aspirin chewable tablet 81 mg 81 mg, Oral, DAILY, First dose on 03/06/17 at 1230, Until Discontinued 03/06/2017 9:56 AM CDT 300 mg aspirin rectal suppository 300 mg Given 300 mg, Rectal, DAILY, First dose on 03/06/17 at 0900, Until Discontinued, If pt received Alteplase, DO NOT give this medication until 24 hours after infusion completed., 03/06/2017 9:55 AM CDT 40 mg atorvastatin (LIPITOR) tablet 40 mg Given 40 mg, Oral, DAILY, First dose on 03/06/17 at 0900, Until Discontinued 03/06/2017 9:55 AM CDT 300 mg buPROPion XL (WELLBUTRIN XL) tablet 300 Given mg 300 mg, Oral, DAILY, First dose on 03/06/17 at 0900, Until Discontinued 03/06/2017 9:55 AM CDT 40 mg Abdomen:LUQ enoxaparin (LOVENOX) syringe 40 mg Given 40 mg, Subcutaneous, DAILY, First dose on 03/06/17 at 0900, Until Discontinued, For patients undergoing surgery: Consult physician in advance -- enoxaparin is an anticoagulant and may need to be held for 12hr prior to surgery or invasive procedures. NOTE: This is a HIGH ALERT Medication., Admission/Obs/Extended Recovery 03/06/2017 9:55 AM CDT 1,000 mg fish oil- omega 3-DHA/EPA capsule 1,000 Given mg 1,000 mg, Oral, TWICE DAILY, First dose on 03/06/17 at 0900, Until Discontinued 03/06/2017 3:50 AM CDT 15 mL gadobenate dimeglumine (MULTIHANCE) Given injection 15 mL 15 mL, Intravenous, ONCE, 1 dose, 03/06/17 at 0400, NOTE: This is a HIGH ALERT Medication., 03/06/2017 1:15 AM CDT 100 mL iopamidol 370 (ISOVUE-370) injection 100 Given mL 100 mL, Intravenous, ONCE, 1 dose, 03/06/17 at 0115, NOTE: This is a HIGH ALERT Medication., 03/06/2017 9:55 AM CDT 60 mg isosorbide mononitrate SR (IMDUR) tablet Given 60 mg 60 mg, Oral, DAILY, First dose on 03/06/17 at 0900, Until Discontinued, DO NOT Crush tablets, 03/06/2017 9:55 AM CDT 50 mg losartan (COZAAR) tablet 50 mg Given 50 mg, Oral, DAILY, First dose on 03/06/17 at 0900, Until Discontinued 03/06/2017 2:33 AM CDT 10 mg prochlorperazine maleate (COMPAZINE) Given tablet 10 mg 10 mg, Oral, EVERY 6 HOURS PRN, Starting 9/17/17 at 0200, Until 03/06/17 at 2113, Nausea/Vomiting PO 03/06/2017 2:33 AM CDT 1,000 mL 125 mL/hr sodium chloride 0.9 % infusion Given - New 1,000 mL, 1,000 mL, Intravenous, at 125 Bag mL/hr, ONCE, 1 dose, 03/06/17 at 0130 03/06/2017 1:15 AM CDT 50 mL sodium chloride PF 0.9% injection 50 mL Given 50 mL, Intravenous, ONCE, 1 dose, 03/06/17 at 0115, Intra-procedure (IR) topiramate (TOPAMAX) tablet 25 mg 25 mg, Oral, AT BEDTIME DAILY, 7 doses, First dose on 03/06/17 at 2100, Last dose on 03/12/17 at 2100, Note: Tablets should not be crushed or broken for administration by mouth, due to bitter taste., topiramate (TOPAMAX) tablet 25 mg 25 mg, Oral, TWICE DAILY, 14 doses, First dose on 03/13/17 at 2100, Last dose on 03/20/17 at 0900, Note: Tablets should not be crushed or broken for administration by mouth, due to bitter taste., documented in this encounter
--- OUTSIDE RECORDS SUMMARY | 2018-12-06 20:56 | XMS REPORT | Encounter Summary ---
Author Author [facility] Organization [facility] Address Unknown Phone Unavailable Care Team Providers Care Senior Center Director Name Role Phone Leroy Lao MD [address] Hernandes DO PCP Encounter Details Care Team Description Date Type Department 03/05/2017 Hospital [facility] [address] [address] Social History Date Tobacco Use Types Packs/Day [...] Status Date of Assessment Functional Status Response 01/12/2017 Does the patient have a hearing impairment: No documented as of this encounter Medications at Time [...] tongue 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 documented in this encounter Visit Diagnoses Diagnosis Diagnosis unknown Other unknown and unspecified cause of morbidity or mortality documented in this encounter
--- OUTSIDE RECORDS SUMMARY | 2018-12-06 20:56 | XMS REPORT | Encounter Summary ---
Author Author [facility] Organization [facility] Address Unknown Phone Unavailable Care Team Providers Care Supervisor [employer] Name Role Phone Leroy Lao MD [address] Hernandes DO PCP Reason for Visit * Reason Comments Medication Refill Encounter Details Care Team Description Date Type Department David Simms MD [address] [id number] Medication Refill 07/31/2018 Refill [facility] [address] [address] Social History Date Tobacco Use Types Packs/Day [...]
--- OUTSIDE RECORDS SUMMARY | 2018-12-06 20:56 | XMS REPORT | Encounter Summary ---
Author Author [facility] Organization [facility] Address Unknown Phone Unavailable Care Team Providers Care Screen Print Operator Name Role Phone Leroy Lao MD [address] DO PCP Reason for Visit * Reason Comments General Question Encounter Details Care Team Description Date Type Department Melquiades Byrne DO [address] [place] [address] General Question 03/15/2017 Telephone [facility] - Neurology [facility] [address] [place] [address] Social History Date Tobacco Use Types Packs/Day [...] impairment: No documented as of this encounter Miscellaneous Notes * Telephone Encounter - Brandy Coker LPN - 03/16/2017 2:07 PM CDT Patient has been added to waitlist for a general neurology appt. * Telephone Encounter - Brandy Coker LPN - 03/15/2017 5:30 PM CDT Pt called stating that he has been having blurry vision since last night and wan ts to know if he should be concerned of this.Also reports issue with diarrhea an d tingling in his feel since he started the medication. Per Dr. Byrne, pt c an try stopping the topamax and see if it gets better. Pt educated to call back tomorrow and let us know if his symptoms get better and see about scheduling an appointment with general neurology for headache management. documented in this encounter Plan of Treatment Not on filedocumented as of this encounter Visit Diagnoses Not on filedocumented in this encounter
--- OUTSIDE RECORDS SUMMARY | 2018-12-06 20:56 | XMS REPORT | Encounter Summary ---
Author Author [facility] Organization [facility] Address Unknown Phone Unavailable Care Team Providers Care Lab Support Tech Name Role Phone Leroy Lao MD [address] DO PCP Reason for Visit * Reason Comments Medication Follow-up plavix Encounter Details Care Team Description Date Type Department Anastasia Coffey treating inspector Follow-up (plavix ) 09/21/[address] [facility] [address] [facility] [place] [address] Social History Date Tobacco Use Types Packs/Day [...] the phone to discuss further. It appears p yamil may have had further angioplasty in [place] since 07/2016. She will revi ew with Dr. Lao and call patient to confirm whether or not he needs to continu e plavix. If he does need to continue it, she will call the refill authorization to the [facility] pharmacy on [address] in [place]. * Telephone Encounter - Anastasia Coffey RN - 09/21/2017 1:03 PM CDT Received a refill request from [facility] in [place], [place] for patient's p lavix. Per the 10/2016 office visit note, pt could discontinue plavix as of (one year post intervention). OV note indicates pt will be following with his primary social work associate, Dr. Lao. Attempted reaching pt to discuss but no answer. Asked that he call back to discuss and/or review with Dr. Lao's office to ens ure it is okay for him to stop plavix. documented in this encounter Plan of Treatment Not on filedocumented as of this encounter Visit Diagnoses Not on filedocumented in this encounter
--- OUTSIDE RECORDS SUMMARY | 2018-12-06 20:56 | XMS REPORT | Encounter Summary ---
Author Author [facility] Address Unknown Phone Unavailable Care Team Providers Care Qa Auditor Name Role Phone Leroy Lao MD [address] Hernandes DO PCP Reason for Visit * Reason Comments Cardiac Eval Scheduled per [facility]; f/u for CAD, Mixed HLD Encounter Details Care Team Description Date Type Department David Simms MD [address] [address] Cardiac Eval (Scheduled per [facility]; f/u for CAD, Mixed HLD) 05/16/2017 Office Visit [facility] [address] [id number] Social History Date Tobacco Use Types Packs/Day [...] Comments Vital Sign 150/72 05/16/2017 3:11 PM NETWORKING TECHNOLOGY INSTRUCTOR Blood Pressure 73 05/16/2017 3:11 PM NETWORKING TECHNOLOGY INSTRUCTOR Pulse - - Temperature - - Respiratory Rate - - Oxygen Saturation - - Inhaled Oxygen Concentration 82.6 kg (182 lb) 05/16/2017 3:11 PM NETWORKING TECHNOLOGY INSTRUCTOR Weight 175.3 cm (5' 9") 05/16/2017 3:11 PM NETWORKING TECHNOLOGY INSTRUCTOR Height 26.88 05/16/2017 3:11 PM NETWORKING TECHNOLOGY INSTRUCTOR Body Mass Index documented in this encounter Functional Status Date of Assessment Functional Status Response 03/06/2017 Does the patient have a hearing impairment: No documented as of this encounter Patient Instructions * Patient Instructions* David Simms MD - 05/16/2017 3:30 PM NETWORKING TECHNOLOGY INSTRUCTOR Increase the Ranexa to 1000mg twice daily Stop the Imdur Take plavix through July Increase Losartan to 100mg daily ORKING TECHNOLOGY INSTRUCTOR documented in this encounter Progress Notes * David Simms MD - 05/16/2017 3:30 PM NETWORKING TECHNOLOGY INSTRUCTOR Date of Service: 05/16/2017 Kaz Restrepo is a 56 y[address] male[address] HPI [address] Simms and I had the pleasure of seeing Kaz Restrepo for cardiac follow-up. He is a 56-year-old with history of coronary disease, hypertension, hyperlipidem ia and tobacco use. He had PCI to chronic total occlusion of the right coronary artery in July of this year and he had moderate stenosis to the intermediate ramus and high-grade stenosis to distal circumflex which is a small vessel. He was readmitted a few days later for chest discomfort and taken back to the [employer] Work[facility]per but there was no change in his anatomy. He has really had no significant change in his symptoms with revascularization. He continues have chest discomfort which is atypical and occurs at rest. He de scribes it as a sharp shooting pain that comes on suddenly. His thinks greg t his symptoms may be in part related to anxiety. He has been on isosorbide and was started on ranolazine 500 mg twice a day. He has had problems with migraines and significant headaches and has been admitt ed on at least 2 occasions for strokelike symptoms which were felt to be complex migraines. Isosorbide was decrease with no improvement in his headaches but al so no change to his chest discomfort. He [...] 01/14/2017 GERI (acute kidney injury) ([facility]) 01/13/2017 Unstable angina ([facility]) 08/13/2016 Coronary artery disease of [place] artery of [place] heart with stable angina pectoris ([facility]) 08/09/2016 07/29/16: heart cath ([place], [place]) - total occlusion of the righ t coronary artery, which is chronic total occlusion, getting collateral from the left system. Severe stenosis at the distal segment of a small proper circumflex artery, fairly small artery without success in crossing the lesion with a ballo on. 60% stenosis in the mid LAD confirmed by IVUS. Normal left ventricular size and systolic function, estimated EF 60%. Normal abdominal aorta and renal arteri es. Essential hypertension 08/09/2016 Mixed hyperlipidemia 08/09/2016 GERD [...] for dizziness, light-headedness, loss of balance and pare sthesias. Psychiatric/Behavioral: Positive for depression. The patient has insomnia and is nervous/anxious. Physical Exam General Appearance: no acute distress Skin: warm & intact HEENT: unremarkable Neck Veins: neck veins are flat & not distended Carotid Arteries: no bruits Chest Inspection: chest is normal in appearance Auscultation/Percussion: lungs clear to auscultation, no rales, rhonchi, or whee zing Cardiac Rhythm: regular rhythm & normal rate Cardiac Auscultation: Normal S1 & S2, no S3 or S4, no rub Murmurs: no cardiac murmurs Extremities: no lower extremity edema; 2+ symmetric distal pulses Abdominal Exam: soft, non-tender, no masses, bowel sounds normal Liver & Spleen: no organomegaly Neurologic Exam: oriented to time, place and person; no focal neurologic deficit s Psychiatric: Normal mood and affect. Behavior is normal. Judgment and thought c ontent normal. Cardiovascular Studies Problems Addressed Today Encounter Diagnoses Name Primary? Coronary artery disease of [place] artery of [place] heart with stable angina pectoris (HCC) Yes Essential hypertension Mixed hyperlipidemia Chest pain, unspecified type Assessment and Plan In summary Mr. Restrepo has the following issues: 1. Coronary artery disease. He had PCI to GAS AND OIL CHECKER of the right coronary artery in July of this year. He continues to have chest discomfort that is atypical a nd there really was no improvement with revascularization. [...] to follow with Dr. Cochran, his primary retail visual merchandiser. 2. Hypertension. His blood pressures a little elevated today. We will increas e losartan to 100 mg daily. 3. Dyslipidemia. [...] pleasant individual. If you have questions or estefanía rns please not hesitate contact us. MANUEL Sanchez Mr. Restrepo was seen in the office today for follow-up and has continued to have s ome anginal type chest discomfort. His main complaint really is discomfort in t he calves when he walks. He describes some difficulties and cramping after abou t 15-20 feet. He does have good palpable pulses in both lower extremities. In addition, he has had some complex migraines which may be exacerbated by his isos orbide mononitrate. We will plan to discontinue the Imdur and exchange for incr easing the Ranexa to 1000 mg twice daily. He is going to be seeing Dr. Tashia peña in the office in about a month [...] by mouth at bedtime daily. Take with food . atorvastatin (LIPITOR) 10 mg tablet Take 10 mg by mouth daily. BUPROPION HCL (WELLBUTRIN SR PO) Take 150 mg by mouth twice daily. clopiDOGrel (PLAVIX) 75 mg tablet Take 75 mg by mouth at bedtime daily. fish oil- omega 3-DHA/EPA 300/1,000 mg capsule Take 1 Cap by mouth twice denis ly. isosorbide mononitrate SR (IMDUR) 30 mg tablet Take 30 mg by mouth every mor magdy. losartan (COZAAR) 50 mg tablet Take 1 Tab by mouth daily. nitroglycerin (NITROSTAT) 0.[address] 1 Tab under tongue every 5 min utes as needed for Chest Pain. Max of 3 tablets, call 911. omeprazole DR(+) (PRILOSEC) 20 mg capsule Take 20 mg by mouth daily. ranolazine ER (RANEXA) 500 mg tablet Take 500 mg by mouth twice daily. ORKING TECHNOLOGY INSTRUCTOR documented in this encounter Plan of Treatment Not on filedocumented as of this encounter Visit Diagnoses Diagnosis Coronary artery disease of [place] artery of [place] heart with stable angina pectoris (HCC) - Primary Essential hypertension Unspecified essential hypertension Mixed hyperlipidemia Chest pain, unspecified type documented in this encounter
--- OUTSIDE RECORDS SUMMARY | 2018-12-06 20:57 | XMS REPORT | Encounter Summary ---
Author Author [facility] Organization [facility] Address Unknown Phone Unavailable Care Team Providers Care Logging Assistant Name Role Phone Leroy Lao MD [address] DO PCP Encounter Details Care Team Description Date Type Department 03/05/2017 Hospital [facility] [address] [address] Social History Date Tobacco Use Types Packs/Day [...] tongue Coronary artery disease every 5 of [place] artery of minutes as [place] heart with stable needed for angina pectoris [...] Comments Procedure Name Priority Date/Time Associated Diagnosis GENERAL RAD CHEST Routine 03/05/2017 Diagnosis unknown EXTERNAL IMAGING 12:00 AM CDT documented in this encounter Results * GENERAL RAD CHEST EXTERNAL IMAGING (03/05/2017 12:00 AM CDT) Specimen Narrative Performed At This order has been auto finalized and does not contain a result. documented in this encounter Visit Diagnoses Diagnosis Diagnosis unknown Other unknown and unspecified cause of morbidity or mortality documented in this encounter
--- OUTSIDE RECORDS SUMMARY | 2018-12-06 20:58 | XMS REPORT | Encounter Summary ---
Author Author [facility] Organization [facility] Address Unknown Phone Unavailable Care Team Providers Care Dual Rate Supervisor Name Role Phone Leroy Lao MD [address]es DO PCP Encounter Details Care Team Description Date Type Department 01/12/2017 Hospital [facility] [address] [address] Social History Date Tobacco Use Types Packs/Day [...] mouth at bedtime daily. Take with food. clopiDOGrel (PLAVIX) 75 Take 75 mg by 0 mg tablet mouth at bedtime daily. fish oil- omega 3-DHA/EPA Take 1 Cap by 0 300/1,000 mg capsule mouth twice daily. 08/10/2016 nitroglycerin (NITROSTAT) Place 1 Tab 25 Tab 3 0.4 mg tabletIndications: under tongue Coronary artery disease every 5 of [place] artery of minutes as [place] heart with stable needed for angina pectoris (HCC), Chest Pain. Essential hypertension, Max of 3 Mixed hyperlipidemia, tablets, call Gastroesophageal reflux 911. disease, esophagitis presence not specified, Ischemic chest pain, Tobacco abuse, History of noncompliance with medical treatment 01/14/2017 05/16/2017 atorvastatin (LIPITOR) 40 Take 1 Tab by 90 Tab 3 mg tablet mouth daily. 01/14/2017 carvedilol (COREG) 12.5 Take 6.25 mg 0 mg tablet by mouth twice daily with meals. Take with food. 08/16/2016 05/16/2017 isosorbide mononitrate SR Take 1 Tab by 90 Tab 3 (IMDUR) 60 mg tablet mouth daily. 01/14/2017 05/16/2017 losartan (COZAAR) 50 mg Take 1 Tab by 90 Tab 3 tablet mouth daily. 11/08/2016 01/14/2017 losartan (COZAAR) 50 mg Take 1 Tab by 90 Tab 3 tablet mouth daily. documented as of this encounter Plan of Treatment Not on filedocumented as of this encounter Procedures Comments Procedure Name Priority Date/Time Associated Diagnosis CT HEAD EXTERNAL IMAGING Routine 01/12/2017 Diagnosis unknown 12:30 AM CDT documented in this encounter Results * CT HEAD EXTERNAL IMAGING (01/12/2017 12:30 AM CDT) Specimen Narrative Performed At This order has been auto finalized and does not contain a result. documented in this encounter Visit Diagnoses Not on filedocumented in this encounter
--- OUTSIDE RECORDS SUMMARY | 2018-12-06 20:58 | XMS REPORT | Encounter Summary ---
Author Author [facility] Organization [facility] Address Unknown Phone Unavailable Care Team Providers Care Data Integration Architect Name Role Phone Leroy Lao MD [address] Hernandes DO PCP Encounter Details Care Team Description Date Type Department 01/12/2017 Hospital [facility] [address] [address] Social History Date Tobacco Use Types Packs/Day [...] tongue Coronary artery disease every 5 of [place] artery of minutes as [place] heart with stable needed for angina pectoris [...] Date/Time Associated Diagnosis GENERAL RAD CHEST Routine 01/12/2017 Diagnosis unknown EXTERNAL IMAGING 12:45 AM CDT documented in this encounter Results * GENERAL RAD CHEST EXTERNAL IMAGING (01/12/2017 12:45 AM CDT) Specimen Narrative Performed At This order has been auto finalized and does not contain a result. documented in this encounter Visit Diagnoses Not on filedocumented in this encounter
--- OUTSIDE RECORDS SUMMARY | 2018-12-06 20:58 | XMS REPORT | Encounter Summary ---
Author Author [facility] Organization [facility] Address Unknown Phone Unavailable Care Team Providers Care Welder Boilermaker Name Role Phone Leroy Lao MD 21 Silver Hernandes DO PCP Encounter Details Care Team Description Date Type Department Julianna Baer MD [address] [place] [address] [phone] Yair Pisano MD [address] [place] [address] [phone] Girish Tellez MD [address] [place] [address] [phone] Weakness 01/12/2017 [facility] - Encounter [id number] [facility]. 01/14/2017 [place] [address] Social History Date Tobacco Use Types Packs/Day [...] Signs Reading Time Taken Comments Vital Sign 164/84 01/14/2017 12:01 PM CDT Blood Pressure 70 01/14/2017 12:01 PM CDT Pulse 36.9 C (98.4 F) 01/14/2017 12:01 PM CDT Temperature - - Respiratory Rate 95% 01/14/2017 5:00 AM CDT Oxygen Saturation - - Inhaled Oxygen Concentration 71.2 kg (157 lb) 01/12/2017 8:54 AM CDT Weight 175.3 cm (5' 9") 01/12/2017 8:54 AM CDT Height 23.18 01/12/2017 8:54 AM CDT Body Mass Index documented in this encounter Functional Status Date of Assessment Functional Status Response 01/12/2017 Does the patient have a hearing impairment: No documented as of this encounter Discharge Summaries * Sen Monterroso DO - 01/14/2017 2:51 PM CDT Physician Discharge Summary Name: Kaz Restrepo Date Of : 1960 Age: 56 years Admit date: 01/12/2017 Discharge date: 01/14/2017 Attending Physician: GIRISH TELLEZ MD Service: Neurology Physician Summary completed by: Grady Monterroso DO Reason for hospitalization: R sided weakness Significant PMH: Past Medical History: Diagnosis Date Chest pain 08/09/2016 Coronary artery disease 08/09/2016 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 Kaz Partida a 56 y.o.malewith h/o HTN, HLD, Substance abuse, tobacco use, CAD s/p stentspresented with right sided weakness, right facial droop and apahsia. He was initially presented to the [place], [place] ED with chest pain. He had a wi tnessed event of acute onset of right-sided leg greater than arm weakness, right facial droop, global aphasia. NIHSS was 16 at OSH. He was given tPA and sent to for further evaluation. NIHSS 15 on presentation at .CTA did not show an y proximal large vessel occlusion. CTP without any core infarct or penumbra. He had positive amphetamines on his drug screen. His MRI did not show any acute stroke. His exam significantly improved since his presentation to the point whe re he does not require any therapy. As he received tPA, he was monitored in ICU and discharged. Patient was told to have close follow-up with PCP given the med ication changes and his refusal to take atorvastatin with an LDL of 152. Condition at Discharge: Stable Discharge Diagnoses: Hospital Problems Active Problems * (Principal)Weakness Coronary artery disease of kotlik artery of kotlik heart with stable angina pec toris (HCC) Essential hypertension Mixed hyperlipidemia GERD (gastroesophageal [...] your normal activity lev el at discharge. Stroke Information F.A.S.T. is an easy way to remember the sudden signs of a stroke. F - face drooping A - arm weakness S - speech difficulty T - TIME TO CALL 911 If the person shows any of theses signs, even if the signs go away, call I MMEDIATELY. Check the time so you will know when the first sign started. Traits and lifestyle habits that increase your risk for stroke include prior str philipp/TIA, heredity/race, prior heart attack, high blood pressure, cigarette smoki ng, carotid or other artery disease, heart disease, high cholesterol, poor diet and drug use. Continue your medications as ordered after discharge. These medications will hel p reduce your risk of another stroke. Your most recent cholesterol levels, if taken during your stay, will display bel ow. LDL is called "bad" cholesterol because it can stick to your artery ovalle an d block blood flow. Your LDL should be below 100. HDL is called the "good" mary carmen sterol. Your HDL should be greater than 40. Your lab results on 01/12/2017: HDL 35 MG/DL* (Ref range: >40 MG/DL); LDL 152 MG/DL* (Ref range: <100 MG/DL). It is important that you follow-up with your primary care physician 4 to 6 weeks after discharge. Be sure to keep all follow-up appointments. Please bring your discharge instructions with you to your follow-up appointments. Should you have any questions once you have returned home, please feel free to c ontact the Attache at [phone]. Your last blood pressure was BP: 164/84, Your target blood pressure is 140/80 If you have diabetes, even if treated, you are at an increased risk of stroke. Many people with diabetes also have high blood pressure, high cholesterol or are overweight. This increases your risk even more. Smoking doubles your risk of stroke. Quitting can greatly reduce your risk. Fo r more information on smoking cessation call or visit www.smokefr ee.gov. Report These Signs and Symptoms STROKE Call [phone] for the following symptoms: *Sudden numbness or weakness of the face, arm or leg, especially on one side of the body. *Sudden confusion, trouble speaking or understanding. *Sudden trouble seeing in one or both eyes. *Sudden trouble walking, dizziness, loss of balance or coordination. *Sudden, severe headache with no known cause. Return Appointment For Neurology scheduling contact [phone] For Neurosurgery appointments call [phone] Questions About Your Stay STANDARD For questions or concerns regarding your hospital stay: -DURING BUSINESS HOURS (8:00 AM - 4:30 PM): Call [phone] and ask to be transferred to your discharge attending bonita castorena. -AFTER BUSINESS HOURS (4:30 PM - 8:00 AM, on weekends, or holidays): Call [phone] and ask the header machine operator to page the on-call doctor for the discha rge attending physician. Discharging attending physician: GIRISH TELLEZ [[id number]] Low Fat / Low Cholesterol Diet Your goal is to limit the amount of saturated and trans fats in your diet. Keep track of how much cholesterol you eat and limit the total amount to 200mg (jeanette grams) a day. If you have questions about your diet after you go home, you can call a dietitia n at [phone]. Cardiac Diet Limiting unhealthy fats and cholesterol [...] may contact a dietitian clif t . Low Sodium Diet You will need to monitor the amount of sodium in your diet. Do not eat more than 2g (grams) or 2000mg (milligrams) per day. If you have questions regarding your diet at home, you may contact a dietitian a t . Current Discharge Medication List START [...] Fax Associated Diagnoses: Coronary artery disease of kotlik artery of kotlik heart w ith stable angina pectoris (HCC); Essential hypertension; Mixed hyperlipidemia; Gastroesophageal reflux disease, esophagitis presence not specified; Ischemic ch est pain (HCC); Tobacco abuse; History of noncompliance with medical treatment omeprazole DR(+) (PRILOSEC) 20 mg capsule Take 20 mg by mouth daily. PRESCRIPTION TYPE: Historical Med The following medications were removed from your list. This list includes medic ations discontinued this stay and those removed from your prior med list in our system baclofen (LIORESAL) 10 mg tablet carvedilol (COREG) 12.5 mg tablet HYDROcodone/acetaminophen(+) (NORCO) 10/[address] (PROTONIX) 40 mg tablet rosuvastatin (CRESTOR) 10 mg tablet Scheduled appointments: Patient needs follow-up appointment with neurology. Pending items needing follow up: Patient needs follow-up appointment with neurol sergey. He was told to call in for an appointment. Consider polysomnogram in Sle ep Lab as outpatient. Signed: Grady Monterroso DO 01/16/2017 cc: Primary Care Physician: Silver Hernandes Verified Referring physicians: Silver Hernandes DO Additional provider(s): documented in this encounter Discharge Instructions * Appointments* Sen Monterroso DO - 01/14/2017 1:10 PM CDT Patient needs follow-up appointment with neurology. documented in this encounter Medications at Time [...] tongue Coronary artery disease every 5 of kotlik artery of minutes as kotlik heart with stable needed for angina pectoris [...] mouth daily. documented as of this encounter Progress Notes * Girish Tellez MD - 01/14/2017 12:58 PM CDT Neurology Progress Note Kaz Restrepo Admission Date: 01/12/2017 LOS: 2 days Assessment/Plan: Principal Problem: Weakness Active Problems: Coronary artery disease of kotlik artery of kotlik heart with stable angina pe ctoris (HCC) Essential hypertension Mixed hyperlipidemia GERD (gastroesophageal reflux disease) Chest pain Tobacco abuse GERI (acute kidney injury) (HCC) Dysphagia ATTESTATION I personally performed the bustamante portions of the E/M visit, discussed case with re sident and concur with resident documentation of history, physical exam, assessm ent, and treatment plan unless otherwise noted. Pt presented at OSH with stroke like symptoms s/p tpa. Work up showed normal MRI . CTA. Will treat as stroke like event. Secondary stroke risk factors modificati on. D/c home today Staff name: Girish Tellez MD Date: 01/15/2017 Kaz Restrepo is a 56 y.o. male with h/o HTN, HLD, Substance abuse, tobacco use , CAD s/p stents presented with right sided weakness, right facial droop and apa hsia. He was initially presented to the [place], [place] ED with chest pain. He had witn ess event of acute onset of right-sided leg greater than arm weakness, right fac ial droop, global aphasia. NIHSS was 16 at OSH. He was given tPA and sent to for further evaluation. NIHSS 15 on presentation at . CTA did not show any pro ximal large vessel occlusion. CTP without any core infarct or penumbra. He had positive amphetamines on his drug screen. His MRI did not show any acute stroke . His exam significantly improved since his presentation. As he received tPA, he was monitored in ICU. Right sided weakness - Resolved. HLD Dysphagia (resolved) CAD s/p stents - CTA without vasospasm. No stroke on MRI. - LDL 152, A1C 5.5 - ECHO unremarkable. Plan: - Resumed CARE TRANSITION MANAGER ASA and Plavix - Started on Simvastatin 40, switched to Atorvastatin, but the patient repo rts not being able to tolerate statins as an outpatient and refuses to take them due to "leg cramps", he was counseled but still refused, he was informed that jose rasheed can try over the counter fish oil but should follow-up with his PCP as soon as possible - Consulted tobacco cessation - Counseled to quit drugs - Cleared by PT/OT/PATIENT TRANSITION SPECIALIST/Rehab - s/p video swallow, now cleared by speech. Bradycaria - Cardiology consulted and following for bradycardia, . > CARE TRANSITION MANAGER BB held per cardiology HTN > [...] his R side. He reports eating a [employer] sandwich this morning without difficulty. He denies any fever, chills, CP (outside of his baseline), SOB, N/V/D, or abdom inal pain. He reports quitting drug use. Objective: Vital Signs: Last Filed Vital Signs: 24 Hour Range BP: 164/84 (01/14 120) Temp: 36.9 C (98.4 F) (01/14 120) Pulse: 70 (01/14 120) Respirations: 16 PER MINUTE (01/14 120) SpO2: 95 % (01/14 0500) O2 Delivery: None (Room Air) (01/14 050) SpO2 Pulse: 70 (01/14 0500) BP: (159-180)/(55-90) [...] c lear with no lesions, palate intact Carotids: No bruits CV: Bradycardic and regular rhythm, systolic ejection murmur that radiates to ca rotids Chest: normal configuration, lungs are clear bilaterally [...] for: PHART, PCO2A, PO2ART, HCO3A, BASEEXA, BASEDEFA, [id number] Lab Results Component Value Date HGB 12.1 [...] 0.9 01/12/2017 No results found for: TSH, GKROQ1N, CORTRAN Lab Results Component Value Date CHOL 231 (H) 01/12/2017 TRIG 216 (H) 01/12/2017 HDL 35 (L) 01/12/2017 LDL 152 (H) 01/12/2017 VLDL 43 01/12/2017 No results found for: VANRAN, VANPK, VANTR No results found for: CYCLOSPOR, TACROLIMUS, FREEPHENY Point of Care Testing: (Last 24 hours): Glucose: (!) 106 Radiology and Other Diagnostics Review: reviewed Sen Monterroso Neurology Resident PGY 2 Pager [phone] * Aye Hall MS,CCC-PATIENT TRANSITION SPECIALIST - 01/14/2017 11:45 AM CDT SPEECH-LANGUAGE PATHOLOGY NO TREATMENT NOTE Chart reviewed and made contact with RN. Pt tolerating diet and PO meds well wit h no overt s/s aspiration. Speech, swallow, cognition appear to have returned to baseline. Do not anticipate ongoing PATIENT TRANSITION SPECIALIST needs. Therapist: Aye Hall MS,CCC-PATIENT TRANSITION SPECIALIST [phone] Date: 01/14/2017 * Albania Díaz MD - 01/13/2017 2:51 PM CDT Cardiology Progress Note Today's Date: 01/13/2017 Name: Kaz Restrepo Admission Date: 01/12/2017 LOS: 1 day Active Hospital Problems Active Problems: Coronary artery disease of kotlik artery of kotlik heart with stable angina pe ctoris (HCC) Essential hypertension Mixed hyperlipidemia GERD (gastroesophageal reflux disease) Chest pain Tobacco abuse Stroke (HCC) GERI (acute kidney injury) (HCC) This is a 56-year-old male with past medical history of hypertension, hyperlipid emia, substance abuse, tobacco use, CAD with stent placed admitted for right-eloina ed weakness, right facial droop and aphasia. Cardiology was consulted for skylar cardia in the setting of chronic CAD. Patient has a history of chronic total occ lusion of the right coronary artery and underwent PCI with a Xience drug-eluting stent to this lesion in 07/2016. He was also found to have a high-grade stenos is to a proximal first obtuse marginal branch and moderate stenosis to the inter mediate ramus but not intervened.He had chest discomfort after one week of rev ascularization but the stent was patent with no new/acute pathology on cardiac c atheterization. He was recommended to continue medical management. During hospit al course, he developed episodic bradycardias as low as 30/min especially during his sleep. Currently, he states he has non radiating chest pain located left lo wer chest midclavicular area. He denies headaches, nausea, vomiting, vision vogt ges. He has mild numbness and tingling in right extremities. Denies shortness of breath. Echocardiogram was done today showing Left ventricular systolic function is within normal limits. LVEF 65%. Mild concentric left ventricular hypertrophy. Aortic valve sclerosis without stenosis. EKG with sinus rhythm, no acute isch emic changes. CTA neck showed no pathology on neck vessels. Patient was on carv edilol 12.5 mg for at least 2 years. Review of patient's previous admissions an d outside records consistent with chronically low heart rate ranging from 48-60 in the last 2 years. According to patient he was evaluated for sleep apnea and outside hospital and was negative. There is no objective evidence for increased intracranial pressure as well Impression -- Noncardiac chest pain. No evidence of recent [place]. -- Sinus rhythm today. Normal AV conduction. Normal QRS axis and duration. No rmal QT interval. Rate 60-70 awake, BP stable. No symptoms. Yesterday's bradyc ardia might be due to a toxin, such [...] participate in the care of this patient. Pleas e call or page with questions. After 5PM please call eligibility worker nail professional. Tuesday - Tuesday 8AM-5PM please call Cardiology consult pager. Pt was seen and discussed with Dr. Charlie MD. Albania Díaz MD PGY-1 Internal Medicine Pager [phone] __ Subjective: Kaz Restrepo is a 56 y.o. male. Overnight Events:none. Patient didn't have bradycardia overnight and during the day. His pulse ranged 48-60's, it was aroun d 70's in the afternoon. Still has mild chest pain but no SOB, palpitation. Feel s better today, more active and more alert. [...] (Room Air) (01/13 1200) SpO2 Pulse: 54 (01/14 1200) BP: (126-173)/(56-103) Temp: [36.5 C (97.7 [...] or performed during the hospital encounter of 01/12/17 (from the past 24 hour(s)) BASIC METABOLIC [...] 75 in sinus rhythm. No excessive slowing. Of f carvedilol. HR has risen gradually since ~0900 h today. We may be seeing wan ing effect of carvedilol. We may be seeing resolution of INFORMATION SYSTEMS ANALYST disorder driving i ncreased vagal tone. Also possible that Mr. Restrepo ingested a substance and the effect is diminishing. Rhythm stable. BP elevated. Current medications include aspirin 81 mg daily, c lopidogrel 75 mg daily, simvastatin 40 mg q.PM, and isosorbide mononitrate 60 mg once daily. If OK with Neurology, goal BP is <140/85. History of cough caused by enalapril. Recommend resume treatment with losartan 50 mg once daily. No need to treat with beta receptor tan. Mr. Restrepo has no history of recent [place], LV dysfunction, or heart failure. Lipid profile not favorable on simvastatin. Mr. Restrepo does not have the simvast atin listed in prior to admission medications and may not have been using a 'sta tin. Recommend replacing with atorvastatin 40 mg daily. Agree with plan to increase activity. From cardiovascular standpoint, ready for discharge at any time. No additional recommendations. Please call again if we may assist. Catrachito Guerra M.D. [phone] * Manuelajulissa Cadence, PT - 01/13/2017 1:54 PM CDT PHYSICAL THERAPY PROGRESS NOTE/DISCHARGE FROM PT MOBILITY: Progressive Mobility Level: Walk laps Distance Walked (feet): 250 ft Level of Assistance: Stand by assistance SUBJECTIVE: Significant hospital events: admit from outside hospital who presented s/p tPA f or acute onset of right sided weakness and [...] deviation. Shows a significant difference in walking spe eds between normal, fast and slow speeds. Gait with Horizontal Head Turns: 3 - Normal: Performs head turns smoothly with n o change in gait. Gait with Vertical Head [...] family and does not require physical therapist i ntervention GOALS: Goal Formulation: With Patient Time For [...] Baer MD - 01/13/2017 12:19 PM CDT Neurology Progress Note Kaz Restrepo Admission Date: 01/12/2017 LOS: 1 day Assessment/Plan: Active Problems: Coronary artery disease of kotlik artery of kotlik heart with stable angina pe ctoris (HCC) Essential hypertension Mixed hyperlipidemia GERD (gastroesophageal reflux disease) Chest pain Tobacco abuse Stroke (HCC) GERI (acute kidney injury) (HCC) Kaz Restrepo is a 56 y.o. male with h/o HTN, HLD, Substance abuse, tobacco use , CAD s/p stents presented with right sided weakness, right facial droop and apa hsia. He was initially presented to the [place], [place] ED with chest pain. He had witn ess event of acute onset of right-sided leg greater than arm weakness, right fac ial droop, global aphasia. NIHSS was 16 at OSH. He was given tPA and sent to for further evaluation. NIHSS 15 on presentation at . CTA did not show any pro ximal large vessel occlusion. CTP without any core [...] 5.5 - ECHO unremarkable. Plan: - Resumed CARE TRANSITION MANAGER ASA and Plavix - Started on Simvastatin 40 in ICU. - Continue PT/OT/PATIENT TRANSITION SPECIALIST/Rehab - s/p video swallow - on mechanical soft diet. - Cardiology consulted and following for bradycardia. Plan to transfer to the floor today. Patient seen and discussed with Dr. Baer. ATTESTATION I personally performed the bustamante portions of the E/M visit, discussed case with re sident and concur with resident documentation of history, physical exam, assessm ent, and treatment plan unless otherwise noted. Staff name: Julianna Baer MD Date: 01/13/2017 Subjective: Kaz Restrepo is a 56 y.o. male. No new events noted. Patient reports feeling much better. He denied using any drugs. Objective: Vital Signs: Last Filed Vital Signs: 24 Hour Range BP: 171/64 (01/14 1200) Temp: 36.5 C (97.7 F) (01/13 0800) Pulse: 54 (01/13 1200) Respirations: 14 PER MINUTE (01/13 1200) SpO2: 97 % (01/13 1200) O2 Delivery: None (Room Air) (01/14 1200) SpO2 Pulse: 54 (07/27 1200) BP: (120-173)/(56-103) Temp: [36.5 C (97.7 [...] c lear with no lesions, palate intact Carotids: No [...] for: PHART, PCO2A, PO2ART, HCO3A, BASEEXA, BASEDEFA, [id number] Lab Results Component Value Date HGB 12.4 [...] 0.9 01/12/2017 No results found for: TSH, [id number], CORTRAN Lab Results Component Value Date CHOL 231 (H) 01/12/2017 TRIG 216 (H) 01/12/2017 HDL 35 (L) 01/12/2017 LDL 152 (H) 01/12/2017 VLDL 43 01/12/2017 No results found for: VANRAN, VANPK, VANTR No results found for: CYCLOSPOR, TACROLIMUS, FREEPHENY Point of Care Testing: (Last 24 hours): Glucose: 90 Radiology and Other Diagnostics Review: reviewed Nataliya Barajas MD, MPH Neurology Resident PGY 4 Pager [phone] * Yair Pisano MD - 01/13/2017 11:27 AM CDT Neurointensivist Critical Care Progress Note Today's Date: [...] (excluding time spent performing or supervising any procedure s) providing and personally directing critical care services [...] Active Problem List Diagnosis Date Noted Stroke ([facility]) 01/12/2017 Unstable angina ([facility]) 08/13/2016 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 Patient examined: yes Objective: I have [...] Signs: Last Filed Vital Signs: 24 Hour Ra nge BP: 173/81 (01/13 0900) Temp: 36.5 C [...] optimize venous drainage Maintain normothermia, avoid hypoxemia, [place] appropriate osmotherapy ( i.e mannitol vs Hypertonic saline) PLAN: 1) Left MCA Stroke - s/p IV tPA, no indication for EVT, MRI-brain toda y, asa 81 mg and clopidogrel 75 mg, PT/OT/ST and PMR; 2) drug screen negative at [facility], positive for meth at OSH Cardiac: Blood pressure 173/81, pulse 60, temperature 36.5 C (97.7 F), height 175.3 c m (69"), weight 71.2 kg (157 lb), SpO2 [...] CAD s/p stenting -asa and clopidogrel, restart CARE TRANSITION MANAGER Imdur and losartan; 5) Chest Pain [...] Imaging: CXR/Neuroimaging: reviewed Radiology and Other Diagnostic Procedur es Reviewed Lab Review: 24-hour labs: Results for orders placed or performed during the hospital encounter of 01/12/17 (from the past 24 hour(s)) TROPONIN-I Collection [...] Pharmacological prophylaxis; SQ Heparin and Mechanical prophylaxis; Seq uential compression device PT, OT, evaluation and treatment Diet: Enteral nutrition with PO, Or Corpak access if unable to swallow and i s at risk for aspiration. Social work and case manager specialist for discharge planning and placement. Family Meeting and update: yes. Patient is able to make his or her decision s, family updated during rounds. Goals of therapy: Addressed, Patient is a full code Nurses concerns addressed. 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 MR I negative for stroke. +methamphetamine Precautions: Falls Comments: Pt with 6/10 chest pain that is chronic and feels like pressure. Activ ity does not increase pain. Vitals stable, RN aware and ok'd tx. Objective Psychosocial Status: Willing and Cooperative to Participate Persons Present: None Prior Function Other Function Comments: Pt lives with girlfriend and is independent with ADLs a nd IADLs, does cooking/housekeeping "sometimes". No DME. Vision Comment: denies deficit, none apparent during ADLs ADL's Grooming Assist: Supervision Only For Lines Grooming Deficits: Brushing Hair;Teeth Care;Wash/Dry Face;Wash/Dry Hands Functional Transfer Assist: Supervision Only for Lines Comment: Pt independent with bed mobility. Contact guard assist progressing to i ndependent with ambulation in room as pt with good balance and no dizziness. Abl e to doff/don socks chair level without difficulty. BUE AROM, strength and coord ination is WNL. Able to easily open packaging on oral hygiene items. Pt appears to be back to baseline function. Cognition Cognition Comment: no obvious deficit DISCHARGE RECOMMENDATION: home, no equipment needs identified Therapist: Mai Pedersen OT Date: 01/13/2017 * Aye Hall MS,CCC-PATIENT TRANSITION SPECIALIST - 01/13/2017 9:07 AM CDT SPEECH-LANGUAGE PATHOLOGY VIDEOSWALLOW ASSESSMENT EVALUATION SUMMARY Videoswallow Summary*: A videoswallow study was completed this date. Results ind icate oropharyngeal swallow is WFL. Occasional instances of laryngeal penetratio n observed with large consecutive drinks thin liquid barium before the swallow d ue to mistimed airway protection, with contrast visualized to be cleared from la ryngeal vestibule upon completion of swallow. No aspiration appreciated for this study. Anticipate swallow to be consistent with baseline. Of note, facial droop and dysarthria markedly improved this date as compared to admission. Please see below for detailed findings. RECOMMENDATIONS Regular diet with thin liquids PO meds as tolerated Excellent oral care PATIENT TRANSITION SPECIALIST will follow for ongoing assessment of motor speech and will complete cogniti ve-communication evaluation if indicated. MBSImp Scale: Lip closure for intraoral bolus containment resulted in no labial escape. Tongue control during bolus hold resulted in posterior escape of less than half of ronald us. Bolus preparation and mastication resulted in timely and efficient chewing a nd mashing. Bolus transport/lingual motion demonstrated delayed initiation of to ngue motion. Oral residue was a trace, lining oral structures. Initiation of the pharyngeal swallow occured when the bolus head was in the pyri form sinuses. Soft palate elevation resulted in no bolus between the soft palate and the pharyngeal wall. Laryngeal elevation demonstrated complete superior mov ement of the thyroid cartilage with complete approximation of the arytenoids to the epiglottic petiole. Anterior hyoid excursion demonstrated partial anterior movement. Epiglottic movement resulted in complete inversion. Laryngeal vestibul ar closure was complete, as indicated by no air or contrast within the laryngeal vestibule at the height of the swallow. Pharyngeal stripping wave was present a nd complete. Pharyngeal contraction could not be assessed due to logistical reas ons not related to physiologic impairment. Pharyngoesophageal segment opening de monstrated partial distention /partial duration, with partial obstruction of ronald us flow. Tongue base retraction allowed a trace column of contrast or air betwee n the retracted tongue base and the posterior pharyngeal wall. Pharyngeal residu e was a trace within or on pharyngeal structures. Esophageal clearance in the up right position could not be assessed due to logistical reasons not related to ph ysiologic impairment. Swallow Recommendations* PO: Advance as Tolerated, Regular, Thin Liquids Plan*: Continue Treatment 2-3x/ Week Prognosis*: Good NOMS Dysphagia Rating*: 7-Normal -Ability to eat indep not limited by swallow fu nction. Swallow safe/efficient for all consistencies. Compensatory strategies ef fectively used when needed. Penetration Aspiration Scale*: 2 [...] fiancee causing ecchymosis around left eye. Behavior c almed, then escalated again. Today, complained of chest pain. No response to N TG x 3. Taken by herb to [facility] ED. BP slightly elevated on arr ival. Treated with sublingual and topical NTG. UDS +amphetamine. Developed ri ght facial droop, aphasia or dysarthria, flaccid right hemiplegia, and left-side d weakness. Presumed to have acute stroke. CT head w/o contrast negative for h emorrhage. Treated with tPA and transferred to Stroke Center at [facility]. Neurologi agatha improved when compared with description from sending hospital. CTA chest 01/12 Impressions: 1. Nondiagnostic for pulmonary venous embolus. No filling defect identified in t he left atrium. Normal sized heart. 2. Mild dependent atelectasis in the bases greater on the left with no pleural e ffusion. 3. Calcified multivessel coronary artery atherosclerotic disease. 4. Minimal retained secretions in the proximal left mainstem bronchus. MRI head 01/12 Impressions: 1. No evidence for acute infarct. [...] Patient Response: Verbalized Understanding Therapist: Aye Hall MS,CCC-PATIENT TRANSITION SPECIALIST [phone] Date: 01/13/2017 * Zully Castelan APRN-TASHA - 01/13/2017 6:29 AM CDT Neuro Critical Care Progress Note Kaz Rosey Restrepo Admission Date: 01/12/2017 LOS: 1 day Full Code ASSESSMENT/PLAN Patient Active Problem List Diagnosis Date Noted Stroke (HCC) 01/12/2017 Unstable angina (HCC) 08/13/2016 Coronary artery disease of [place] artery of [place] heart with stable angina pectoris (HCC) 08/09/2016 07/29/16: heart cath ([address] [place], [place]) - total occlusion of the righ [...] of the cervical spine with multilevel neuroforaminal hayden nosis. 3. Secretions are noted within the distal trachea and right mainstem Bronchus. -CT perfusion: Normal CT perfusion. Plan: - LDL 152, goal < 70- CARE TRANSITION MANAGER crestor increased to 20mg today - A1C 5.5 - ASA 81 and Plavix 75mg daily- resume today - PT/OT/PATIENT TRANSITION SPECIALIST/Rehab consulted Cardiac: hx of HTN, CAD, HLD, chest pain, bradycardia Echo 01/12: EF 65%, mild LVH, no shunt/thrombus CTA chest 01/12: negative for PE - cards consulted, appreciate recs - continue holding CARE TRANSITION MANAGER coreg 12.5mg QD - will restart imdur 60mg daily today, consider restarting losartan 50mg daily i f needed for BP control - SBP goal: <160 - MAP goal > 65 - crestor daily Respiratory: H/o tobacco abuse - smoking cessation - Stable on room air - Spo2 goal >95% GI: H/O GERD, Dysphagia - Feeding: regular diet - PATIENT TRANSITION SPECIALIST following- video swallow negative for aspiration, diet [...] IVF: DC IVF - Magnesium goal >2.0, i-Simone goal > 1.0, Potassium goal >4.0 mEq/L Prophylaxis Review: A)GI: PPI B) Lines: PIVs C) Urinary Catheter: Smith D) Antibiotic Usage: None E) VTE: SCDs, SQ Heparin F) Isolation: None G)Seizures: None I) Restraints: Patient assessed for need for restraints. Disposition/Family: ICU Primary service: NCC Consults: Rehabilitative Medicine SUBJECTIVE Kaz Restrepo is a 56 y.o. male. Overnight Events: No new events noted. Patie nt denies chest pain this AM. Does c/o dull headache. OBJECTIVE Vital Signs: Last Filed Vital Signs: 24 Hour Ra cherry BP: 173/81 (01/13 0900) Temp: 36.5 C [...] temperature 36.5 C (97.7 F), height 175.3 c m (69"), weight 71.2 kg (157 lb), SpO2 97 %. [place] coma score: E: 3 - Opens eyes [...] or performed during the hospital encounter of 01/12/17 (from the past 24 hour(s)) TROPONIN-I Collection [...] Other Diagnostic Procedures Review: Pertinent radiologic and diag nostic procedures reviewed. YLN German Date: 01/13/[phone] I spent 45 minutes managing the care of this patient. Kaz Restrepo is critically ill with right sided weakness, HTN, chest pain, bradycardia. Cares included: d etailed neurologic and systems exam, medication review, laboratory data review a nd interpretation, electrolyte management, review of available imaging, DVT/PE p rophylaxis review, diet review, activity review, and coordination of care with c onsulted teams * Cadence Walsh, PT - 01/12/2017 3:18 PM CDT PHYSICAL THERAPY ASSESSMENT MOBILITY: Progressive Mobility Level: Active transfer to chair Level of Assistance: Assist X1 Assistive Device: Hand Held Time Tolerated: 11-30 minutes SUBJECTIVE: Significant hospital events: admit from outside hospital who presented s/p tPA f or acute onset of right sided weakness and [...] x10 repetitions and marching in place with mi nimal assist to steady prior to transfer. GAIT Gait Distance: 4-5 steps to assist with transfer to chair Gait: Assistance Level: Minimal Assist Gait: Assistive Device: Hand Hold Assist Gait: Descriptors: Pace: Slow;Decreased step length; Decreased pre swing in R LE The patient declines farther ambulation, noting he would like to sit in chair an d see "how that goes first". Agreeable to attempt ambulation tomorrow with thera py. EDUCATION: Persons Educated: Patient Patient Barriers To [...] progressing ambulation and work towards independence with mo bility. RECOMMENDATIONS: PT Discharge Recommendations: Inpatient Setting;Recommend Physical Medicine and Rehabilitation Consult to address most appropriate level of rehabilitation place ment Therapist: Cadence Walsh, PT Date: 01/12/2017 * Maciel Castellanos, RN - 01/12/2017 1:16 PM CDT Pt transported to CT via bed with this RN and ADITYA Adorno. VSS, no complications. * Tila Traylor RN - 01/12/2017 12:30 PM CDT Pt taken to MRI via bed with 2 RN's. Pt monitored by Resource RN during scan. * Aye Hall MS,CCC-PATIENT TRANSITION SPECIALIST - 01/12/2017 11:11 AM CDT SPEECH-LANGUAGE PATHOLOGY CLINICAL SWALLOW ASSESSMENT EVALUATION SUMMARY Summary: A clinical swallow evaluation was completed this date. Pt with no overt s/s aspiration with consistencies presented, though he did intermittently prese nt with multiple swallows and mild vocal quality changes. Pt with upper/lower ri ght facial weakness, reduced level of arousal, and with secretions noted within trachea and right mainstem bronchus on imaging. No acute changes in CTA but MRI not yet completed. Will complete ongoing assessment of motor speech as indicated . Will complete ongoing assessment of swallow pending review of additional head imaging. Please see below for detailed findings. RECOMMENDATIONS Continue NPO Ice chips sparingly for oral comfort/moisture and to facilitate functional swall ow If medically appropriate, recommend Videoswallow study on 01/13 to further assess swallow Excellent oral care to reduce risk of aspirating bacteria in oral secretions PATIENT TRANSITION SPECIALIST will follow for dysphagia and dysarthria management. Will complete speech/la nguage evaluation if indicated. Will update d/c recommendations pending completi on of additional assessment. Oral Stage Summary*: Pt presented ice chips via spoon, thins via spoon, cup, and straw, and purees via spoon. Pt with adequate bolus procurement. Some repetitive lingual movement for A-P transfer. Did not assess mastication as no solids pre sented. No significant oral residue with thins or purees. Pharyngeal Stage Summary*: Would anticipate degree of mistimed airway protection . Intermittently with multiple swallows (2-3 per bolus), suggesting penetration/ aspiration and/or incomplete pharyngeal clearance. Also intermittently with mild vocal quality change with mildly wet vocal quality as well as breaks in voicing. No overt coughing/throat clearing. Swallow Recommendations* NPO: Temporary Non-Oral Nutrition PO: Ice Chips Only Plan: Continue Treatment Daily., Patient Would Benefit from Further Speech Thera py Post Acute Hospitalization. Prognosis: Good Results Reported to Physician: Yes Objective* Relevant Med Background: Pt is a 56yo male admitted with possible stroke, with c ardiac history. H&P not yet in chart. Pt is an active smoker per report. CTA head: 1. 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 2. Normal CTA of the head without intracranial arterial stenosis or occlusion. CTA neck: 1. Normal CTA of the neck. 2. Degenerative disease of the cervical spine with multilevel neuroforaminal hayden nosis. 3. Secretions are noted within the distal [...] and lower right facial weakness. No significant l ingual asymmetry. Some degree of imprecise consonant production, perceived slowe r rate of speech, reduced vocal intensity. Some missing dentition but adequate f or mastication. Education* Persons Educated: Patient Barriers To Learning: Decreased Alertness Interventions: Staff Educated Teaching Methods: Verbal Topics: Dysphagia Patient Response: Verbalized Understanding Goal Formulation: With Patient Clinical Swallow Goals* Goal : Pt will participate in ongoing assessment of swallow, given minimal cues to participate. Goal : Pt will tolerate ice chip protocol with less than 10% overt s/s aspiratio n and free from respiratory status changes. Therapist:Aye Hall MS,CCC-PATIENT TRANSITION SPECIALIST [phone] Date:01/12/2017 * Marie Monroe, - 01/12/2017 10:07 AM CDT RESPIRATORY THERAPY ADULT PROTOCOL EVALUATION RESPIRATORY PROTOCOL PLAN Medications Note: If indicated by protocol, medication orders will be placed by therapist. Procedures PAP: Place a nursing order for "IS Q1h While Awake" for any of Lung Expansion in dicators PATIENT EVALUATION RESULTS Chart Review * Pulmonary [...] and rate OR good chest excursion with ashley p breathing * Breath Sounds: Diminished bilaterally (LE) OR decreased bilaterally with produ ctive cough (AC) * Cough / Sputum: Strong, effective cough OR nonproductive * Mental Status: Alert, oriented, cooperative * Activity Level: Ambulatory with assistance Priority Index Total Points: 5 Points * Priority Index: 1 PRIORITY INDEX GUIDELINES* Priority Points 1 0-9 points 2 9-18 points 3 > 18 points + Pulm Dx or Home Rx *Higher points indicate higher acuity. Therapist: Marie Monroe RT Date: 01/12/2017 [place] AC=Airway clearance AM=Aerosolized medication BA=[place] aerosol DB&C=Deep breathe & cough FEV1=Forced expiratory volume in first second) IC=Inspiratory capacity LE=Lung expansion MDI=Metered dose inhaler Neb=Nebulizer O2=Oxygen Oxim=Oximetry PEFR=Peak expiratory flow rate GASTROENTEROLOGIST=Rapid Response Team documented in this encounter H&P Notes * Yair Pisano MD - 01/12/2017 11:57 AM CDT Neurointensivist Critical Care Progress Note Today's Date: 01/12/2017 Name: Kaz Restrepo Admission Date: 01/12/2017 LOS: 0 days ATTESTATION I have seen, personally fully evaluated this patient. Patient exhibits injury of at least one organ system,and there is high probabili ty of imminent or life threatening deterioration in patient's condition, and hen ce needs continued medical attention including frequent neurological examination , and frequent vital signs. The patient is [...] (excluding time spent performing or supervising any procedure s) providing and personally directing critical care services [...] Active Problem List Diagnosis Date Noted Stroke ([facility]) 01/12/2017 Unstable angina ([facility]) 08/13/2016 Coronary artery disease of [place] artery of [place] heart with stable angina pectoris ([facility]) 08/09/2016 07/29/16: heart cath ([address] [place], [place]) - total occlusion of the righ [...] new events noted, sign out obtained from weight shifter person ( nurse and [facility] physician). Patient examined: yes Objective: I have reviewed the following medications: Scheduled Meds: pantoprazole DR (PROTONIX) tablet 40 mg 40 mg Oral QDAY [START ON 01/13/2017] rosuvastatin (CRESTOR) tablet 20 mg 20 mg Oral QDAY Continuous Infusions: sodium chloride 0.9 % infusion 100 mL/hr at 01/12/17 0830 PRN and Respiratory Meds: Vital Signs: Last Filed Vital Signs: 24 Hour Ra nge BP: 134/72 (01/12 1015) Temp: 36.7 C (98.1 F) (01/13 800) Pulse: 54 (01/12 101) Respirations: 19 PER MINUTE (01/12 1015) SpO2: [...] Scale 0-10 (Pain 1): (not recorded) Vitals: 01/12/1773201/12/17853 Weight: 71.3 kg (157 lb 3 oz) [...] optimize venous drainage Maintain normothermia, avoid hypoxemia, [place] appropriate osmotherapy ( i.e mannitol vs Hypertonic saline) PLAN: 1) Left MCA Stroke - s/p IV tPA, no indication for EVT, MRI-brain toda y, resume asa 81 mg and clopidogrel 75 mg 24 hours after IV tPA, PT/OT/ST and PM R; 2) drug screen negative at [facility], positive for meth at OSH Cardiac: Blood pressure 134/72, pulse 54, temperature 36.7 C (98.1 F), height 175.3 c m (69"), weight 71.2 kg (157 lb), SpO2 [...] Imaging: CXR/Neuroimaging: reviewed Radiology and Other Diagnostic Procedur es Reviewed Lab Review: 24-hour labs: Results for orders placed or performed during the hospital encounter of 01/12/17 (from the past 24 hour(s)) HEMOGLOBIN A1C [...] Corpak access if unable to swallow and i s at risk for aspiration. Social work and case manager specialist for discharge planning and placement. Family Meeting and update: yes. Patient is able to make his or her decision s, family updated during rounds. Goals of therapy: Addressed, Patient is a full code Nurses concerns addressed. Disposition/Family: Continue ICU care due to # 1 X Yair Pisano MD Solution Director, Department of Neurology and Neurosurgery Pager: [phone] Date: 01/12/2017 X * Carlene Rodriguez MD - 01/12/2017 8:17 AM CDT Neuro Critical Care History and Physical Kaz Restrepo Admission Date: 01/12/2017 LOS: 0 days Full Code ASSESSMENT/PLAN Patient Active Problem List Diagnosis Date Noted Stroke (HCC) 01/12/2017 Unstable angina ([facility]) 08/13/2016 Coronary artery disease of [place] artery of [place] heart with stable angina pectoris (HCC) 08/09/2016 07/29/16: heart cath ([address] [place], [place]) - total occlusion of the righ [...] seems to be improving, continues with right si ded weakness - Home crestor increased to 20mg today - Home ASA 81 and Plavix 75mg tomorrow - PT/OT/PATIENT TRANSITION SPECIALIST/Rehab consulted - f/u on UDS MRI 01/12 [...] q 1 hrs, parameters for prevention of second hazel brain injury (avoid hypotension, hypoxia, fever, hyperglycemia,significant a nemia, diagnose and treatment of seizures, electrolyte abnormalities) Sedation/Pain Management: Yes /No - if yes: agents: Propofol / Precedex / Fentanyl - Assess for delirium daily Cardiac: hx of HTN and RCA stents with known existing occlusions - BP have been stable without home meds, will hold for now - Will restart home coreg 12.5mg QD, imdur 60mg QD, losartan 50mg QD as needed o r tolerated - SBP goal: <160 - MAP [...] hrs GI: stable - Feeding: NPO - PATIENT TRANSITION SPECIALIST consulted to assess for dysphagia - neurosurgery [...] - Ca 8.6, - Magnesium goal >2.0, i-Simone goal > 1.0, Potassium goal >4.0 mEq/L [...] facial droop and apahsia. He is from [place]. Earlier today, at 1:20 AM in the morning he developed [place] [facility] pain. He OSH were had a witnessed acute onset of right-sided weakness right facial droop and aphasia. NIH score was 16. His blood pressure was high at OSH , hydralazine and Cardene was given prior to TPA. TPA was given at 3:15 AM. He had a CTA head and neck which was not very clear. His NIH stroke scale got wor se from 16-22. He also had CTA chest at OSH, some concern for collapsed pulmona ry vein/artery. UDS was positive for amphetamine at OSH. He got transferred to for evaluation for endovascular intervention. Upon arrival at , he was lethargic and globally aphasic. Found to be more wea k in the right leg as compared to the right arm. He was taken for CTA and CTP. He was off the cardene drip. He was not found to be a candidate for an endovascular intervention and therefor e was started on acute post stroke management. He states he has non radiating chest pain. He denies headaches, nausea, vomiting , vision changes. He endorses mild numbness and tingling in right extremities. D enies any problems with urination or bowel movments. Denies shortness of breath. Past Medical History: Diagnosis Date Chest pain 08/09/2016 Coronary artery disease 08/09/2016 Coronary artery disease of [place] artery of [place] heart with stable angina pectoris (HCC) 08/09/2016 07/29/16: heart cath ([address] [place], [place]) - total occlusion of the right [...] mg by mouth three times daily as ne eded. BUPROPION HCL (WELLBUTRIN SR PO) Take 150 mg by mouth twice daily. carvedilol (COREG) 12.5 mg tablet Take 6.25 mg by mouth twice daily with carlos ls. Take with food. clopiDOGrel (PLAVIX) 75 mg tablet Take 75 mg by mouth daily. cyclobenzaprine (FLEXERIL) 10 mg tablet Take 10 mg by mouth three times marita y as needed for Muscle Cramps. fish oil- omega 3-DHA/EPA 300/1,000 mg capsule Take 1 Cap by mouth twice denis ly. HYDROcodone/acetaminophen(+) (NORCO) 10/325 mg tablet Take 1-2 [...] Signs: Last Filed Vital Signs: 24 Hour Ra nge BP: 120/72 (01/13 0815) Temp: 36.7 C (98.1 F) (01/12 0800) Pulse: 54 (01/12 815) Respirations: 14 PER [...] Vent weaning trial: N/A Lines: PIVs Drains: Smith Critical Care Vitals: ICP Monitoring: Hemodynamics/Oxycalcs: Intake/Output Summary: (Last 24 hours) No intake or output data in the 24 hours ending 01/12/17819 Physical Exam: Blood pressure 120/72, pulse 54, temperature 36.7 C (98.1 F), height 175.3 c m (69"), weight 71.3 kg (157 lb 3 oz), SpO2 95 %. [place] coma score: E: 4 V: 5 M: [...] or performed during the hospital encounter of 01/12/17 (from the past 24 hour(s)) HEMOGLOBIN A1C [...] Other Diagnostic Procedures Review: Pertinent radiologic and diag nostic procedures reviewed. Carlene Rodriguez MD Date: 01/12/[phone] documented in this encounter Consult Notes * [place]ia Díaz MD - 01/12/2017 6:41 PM CDT Associated Order(s): CONSULT CARDIOLOGY PHYSICIAN Cardiology Consult Note Admission Date: 01/12/2017 LOS: 0 days Reason for Consult: "Bradycardia, hx of PCI and occlusions" Consult type: Written opinion only Active Hospital Problems Active Problems: Stroke (HCC) This is a 56-year-old male with past medical history of hypertension, hyperlipid emia, substance abuse, tobacco use, CAD with stent placed admitted for right-eloina ed weakness, right facial droop and aphasia. Cardiology was consulted for skylar cardia in the setting of chronic CAD. Patient has a history of chronic total occ lusion of the right coronary artery and underwent PCI with a Xience drug-eluting stent to this lesion in 07/2016. He was also found to have a high-grade stenosis to a proximal first obtuse marginal branch and moderate stenosis to the interm ediate ramus but not intervened. He had chest discomfort after one week of revas cularization but the stent was patent with no new/acute pathology on cardiac cat heterization. He was recommended to continue medical management. During hospital course today, he developed episodic bradycardias as low as 30/min especially du ring his sleep. Currently, he states he has non radiating chest pain located lef t lower chest midclavicular area. He denies headaches, nausea, vomiting, vision changes. He has mild numbness and tingling in right extremities. Denies shortnes s of breath. Echocardiogram was done today showing Left ventricular systolic fun ction is within normal limits. LVEF 65%. Mild concentric left ventricular hypert rophy. Aortic valve sclerosis without stenosis. EKG with sinus rhythm, no acute ischemic changes. CTA neck showed no pathology on neck vessels. Patient is on c arvedilol 12.5 mg for at least 2 years. Review of patient's previous admissions and outside records consistent with chronically low heart rate ranging from 48- 60 in the last 2 years. According to patient he was evaluated for sleep apnea a nd outside hospital and was negative. There is no objective evidence for increa sed intracranial pressure as well. Impression --Patient has been relatively bradycardic, heart rate ranging from 48-60. No ev idence for increased intracranial pressure, vagal hyperactivity, SA/AV node dysf unction, or sleep apnea. There is also no evidence for intoxication. Hypothyro idism should be ruled out. At this point, we do not anticipate pacemaker, will c ontinue following up. Recommendations/Plan 1. Discontinue carvedilol 2. TSH level 3. Continue to monitor on telemetry We will follow up. Thank you for the opportunity to participate in the care of this patient. Pleas e call or page with questions. After 5PM please call eligibility worker nail professional. Tuesday - Tuesday 8AM-5PM please call Cardiology consult pager. Pt was seen and discussed with Dr. Guerra. Albania Díaz MD PGY-1 Internal Medicine Pager [phone] History of Present Illness: Kaz Restrepo is a 56 y.o. male with PMH of HTN, HL D, Substance abuse, tobacco use, CAD s/p stents,admitted for right sided weakn ess, right facial droop and apahsia. Cardiology was consulted for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 to continued aphasia. Video swallow on 01/13 was negative for aspi ration and diet was advanced. Cardiology was consulted for bradycardia and chest pain. His CARE TRANSITION MANAGER coreg was held and he remained asymptomatic with HR 45-60. Tropon in and EKG negative for ischemia. Imdur was resumed. His CARE TRANSITION MANAGER ASA and Plavix were started 24 [...] monitor for myalgia, h/o intolerance - resumed CARE TRANSITION MANAGER wellbutrin - holding Coreg due to [...] of the cervical spine with multilevel neuroforaminal hayden nosis. 3. Secretions are noted within the distal trachea and right mainstem Bronchus. -CT perfusion: Normal CT perfusion. - Echocardiogram 01/12: EF 65%, mild LVH, negative for shunt/thrombus Laboratory studies: 24-hour labs: Results for orders placed or performed during the hospital encounter of 01/12/17 (from the past 24 hour(s)) TROPONIN-I Collection [...] Cardiology ongoing recommendations for bradycardia - additional CARE TRANSITION MANAGER antihypertensives to resume as needed - ongoing PT/OT/ST needs Activity/Weight bearing status: Up to chair with PT/OT Nutrition: Regular diet Discharge Plan: Transfer to floor for continued Zully Castelan APRN-OIL FILTERS INSPECTOR Pager [phone] * Case Mgmt DC Plan - Massiel Sena RN - 01/12/2017 1:43 PM CDT NCM attempted to see patient for assessment at the following times: 10:24- patient was with speech therapy 11:45- patient with nursing staff 1:30- patient not in room. Likely down for CT scan. 2:31- patient returned to room, however, nursing staff in caring for him at this time. Called Ori Juddmudez in financial counseling and left a with request for Med Data referral. CM services will continue to follow. Massiel PETERSON, RN, ACM Integrated Nurse Political Anthropologist Neurology Service Pager: [phone] * Acute Stroke Response - Lis Horowitz - 01/12/2017 7:53 AM CDT RN Stroke Activation Summary Date of Service: 01/12/2017 Kaz Restrepo is a 56 y.o. male. : 1960 MRN#: [id number] Allergies: Pcn [penicillins] Patient Arrival: 0700 ASRT Arrival: 0647 Location of Response : flash CT Page Received: 4895 EMS Agency: [facility] Outside Hospital: [facility] Clinical Presentation: Dysarthria, Right facial droop, Right sided weakness, Dec reased LOC Total Stroke Scale Score: 15 Signs & Symptoms: Onset of Symptoms Onset of Symptoms - Date: 01/12/17 Onset of Symptoms - Time: 0200 (per OSH RN) Dysphagia screen: Did Patient Pass The Swallow Screen Part I?: No If "No" Name of Physician Notified: MIKEY Barajas Assessment & Plan Summary: Pt arrived to flash CT scanner at 0700 via [facility] business planning analyst. NIH 15. CTA/CTP complete at this time. Pt failed swallow at this time. MD chago churchill CT/CTP/CTA/IR: CTA/CTP time: 724 CTA/CTP Interpretation time: 729 N/A Plan: Admit to ICU. 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 male. : 1960 MRN#: [id number] Allergies: Pcn [penicillins] Type of ASRT note: Consult Assessment & Plan Chief Complaint: Kaz Restrepo is a 56 y.o. male with h/o HTN, HLD, Substance a buse, tobacco use, CAD s/p stents presented with right sided weakness, right fac ial droop and apahsia. Assessment: He had acute onset of right-sided leg greater than arm weakness, ri ght facial droop, global aphasia S/P TPA. CTA did not show any proximal large v essel occlusion. CTP without any core infarct or penumbra. He had positive amp hetamines on his drug screen. On the initial CT head there was some concern abo ut dense left MCA, which was not seen on successive CT scans. He might have a c lot which got resolved with TPA or might just had ischemia. Later today, his ex ams significantly improved. MRI will give us a [...] post tPA - CBC, BMP routine - PT/OT/PATIENT TRANSITION SPECIALIST consult eval and treat - Rehab consult [...] history, review of neuro radiology and labs, carlin dixon ing about stroke reversal therapy.. Pt with witnessed onset right sided weakn ess and right ptosis while in ED at [facility] for chest pain. NIHSS was 16. He was given IV alteplase and transferred for possibility of mechanica l thrombectomy. Upon arrival, cta/ctp did not show abnormality. NIHSS 15. A) possible small vessel stroke or stroke mimic. P) mri head. Echo. Trend tro ponin. Restart antiplatelet 24 hrs after tpa. Staff name: Julianna Baer MD Date: 01/12/2017 [facility] of Present Illness: Kaz Restrepo is a 56 y.o. male with h/o HTN, HLD, Substance abuse, tobacco use , CAD s/p stents presented with right sided weakness, right facial droop and apa hsia. He is from [facility]. Earlier today, at 1:20 AM in the morning she dev eloped chest pain. He presented to the [facility] for chest pain. While he wa s in the ED, she had a witnessed acute onset of right-sided weakness right facia l droop and aphasia. NIH score was 16. His blood pressure was high at OSH, hyd ralazine and Cardene was given prior to TPA. TPA was given at 3:15 AM. He had a CTA head and neck which was not very clear. His NIH stroke scale got worse fr om 16-22. He also had CTA chest at OSH, some concern for collapsed pulmonary ve in/artery. UDS was positive for amphetamine at OSH. He got transferred to [facility] or evaluation for endovascular intervention. Upon arrival at , he was lethargic and globally aphasic. Found to be more wea k in the right leg as compared to the right arm. He was taken for CTA and CTP. He was off the Cardizem drip upon arrival. Review of Systems A 14 point review of systems was negative except for: Right face arm leg weaknes s, aphasia Constitutional: negative Eyes: negative Ears, nose, mouth, throat, and face: negative Respiratory: negative Cardiovascular: negative Gastrointestinal: negative Genitourinary: negative Integument/breast: negative Hematologic/lymphatic: negative Musculoskeletal: negative Neurological: negative Behavioral/Psych: negative Endocrine: negative Allergic/Immunologic: negative Stroke Activation Summary Patient Arrival: 0700 ASRT Arrival: 0647 Location of Response : flash CT Page Received: 2615 Clinical Presentation: Dysarthria, Right facial droop, Right sided weakness, Dec reased LOC Signs & Symptoms: Onset of Symptoms Onset of Symptoms - Date: 01/12/17 Onset of Symptoms - Time: 0200 (per OSH RN) CT/CTP/CTA: CTA/CTP time: 724 CTA/CTP Interpretation time: 729 BP: 115/62 (01/12 1200) Temp: (P) 36.6 C (97.9 F) (01/12 1200) Pulse: 47 (01/12 1200) Respirations: 13 PER MINUTE (01/13 1200) SpO2: 97 % (01/13 1200) O2 Delivery: (P) None (Room Air) (01/13 1200) SpO2 Pulse: 48 (01/12 1200) Height: [...] language) 2=neither correct 2 1c. Commands-open/close eyes, custodial foreman and release non-paretic hand (other 1 step [...] or Failed screen by nursing staff and mendy mak ST evaluation Cardiac rhythm on presentation: NSR. Health History Past Medical History: Diagnosis Date Chest pain 08/09/2016 Coronary artery disease 08/09/2016 Coronary artery disease of kot[place] artery of kotlik heart with stable angina pectoris (HCC) 08/09/2016 07/29/16: heart cath ([place] [place], [place]) - total occlusion of the right [...] or performed during the hospital encounter of 01/12/17 (from the past 24 hour(s)) HEMOGLOBIN A1C [...] MD, MPH Neurology Resident PGY 4 Pager [phone] documented in this encounter Plan of Treatment Not on filedocumented as of this encounter Procedures Comments Procedure Name Priority Date/Time Associated Diagnosis ECG UNCONFIRMED-SCAN 01/21/2017 7:42 AM CDT TELEMETRY STRIPS-SCAN 01/20/2017 1:41 PM CDT ECG-SCAN 01/16/2017 11:23 AM CDT CBC Routine 01/14/2017 4:40 AM CDT BASIC METABOLIC PANEL Routine 01/14/2017 4:40 AM CDT SWALLOW MOTION SERIES Routine 01/13/2017 8:48 AM CDT CBC Routine 01/13/2017 3:50 AM CDT PHOSPHORUS Routine 01/13/2017 3:50 AM CDT MAGNESIUM Routine 01/13/2017 3:50 AM CDT IONIZED CALCIUM Routine 01/13/2017 3:50 AM CDT BASIC METABOLIC PANEL Routine 01/13/2017 3:50 AM CDT CTA CHEST WO/W STAT 01/12/2017 CONTRAST+POST IMPRESSION 5:59 PM CDT PHENCYCLIDINES-URINE Specimen 01/12/2017 RANDOM in Lab 2:17 PM CDT OPIATES-URINE RANDOM Specimen 01/12/2017 in Lab 2:17 PM CDT COCAINE-URINE RANDOM Specimen 01/12/2017 in Lab 2:17 PM CDT CANNABINOIDS-URINE RANDOM Specimen 01/12/2017 in Lab 2:17 PM CDT BENZODIAZEPINES-URINE Specimen 01/12/2017 RANDOM in Lab 2:17 PM CDT BARBITURATES-URINE RANDOM Specimen 01/12/2017 in Lab 2:17 PM CDT AMPHETAMINES-URINE RANDOM Specimen 01/12/2017 in Lab 2:17 PM CDT MRI HEAD WO/W CONTRAST Routine 01/12/2017 1:36 PM CDT POC CREATININE, RAD 01/12/2017 1:31 PM CDT TROPONIN-I STAT 01/12/2017 11:48 AM CDT LIPID PROFILE Routine 01/12/2017 11:48 AM CDT BASIC METABOLIC PANEL Add on 01/12/2017 11:48 AM CDT TROPONIN-I STAT 01/12/2017 9:39 AM CDT 2-D + DOPPLER ELLIOT 01/12/2017 ECHOCARDIOGRAM 8:54 AM CDT IONIZED CALCIUM Routine 01/12/2017 7:40 AM CDT ECG 12-LEAD STAT 01/12/2017 7:38 AM CDT TROPONIN-I Routine 01/12/2017 7:34 AM CDT PROTIME INR (PT) Routine 01/12/2017 7:34 AM CDT CBC AND DIFF Routine 01/12/2017 7:34 AM CDT PHOSPHORUS Routine 01/12/2017 7:34 AM CDT MAGNESIUM Routine 01/12/2017 7:34 AM CDT HEMOGLOBIN A1C Routine 01/12/2017 7:[address] BRAIN PERF STAT 01/12/2017 7:25 AM CDT CTA NECK WO/W STAT 01/12/2017 CONTRAST+POST P 7:25 AM CDT CTA HEAD WO/W CONTR+POST STAT 01/12/2017 PRO 7:25 AM CDT GENERAL RAD CHEST Routine 01/12/2017 Diagnosis unknown EXTERNAL IMAGING 12:[address] HEAD EXTERNAL IMAGING Routine 01/12/2017 Diagnosis unknown 12:[address] CHEST EXTERNAL IMAGING Routine 01/12/2017 Diagnosis unknown 12:[address] HEAD EXTERNAL IMAGING Routine 01/12/2017 Diagnosis unknown 12:00 AM CDT documented in this encounter Results * ECG UNCONFIRMED-SCAN (01/21/2017 7:42 AM CDT) Narrative Performed At Ordered by an unspecified provider. * TELEMETRY STRIPS-SCAN (01/20/2017 1:41 PM CDT) Narrative Performed At Ordered by an unspecified provider. * ECG-SCAN (01/16/2017 11:23 AM CDT) Narrative Performed At Ordered by an unspecified provider. * CBC (01/14/2017 4:40 AM CDT) White Blood 6.3 4.5 - 11.0 K/UL [facility] Cells RBC 3.88 (L) 4.4 - 5.5 M/UL [facility] Hemoglobin 12.1 (L) 13.5 - 16.5 GM/DL [facility] Hematocrit 35.5 (L) 40 - 50 % [facility] MCV 91.5 80 - 100 FL [facility] MCH 31.1 26 - 34 PG [facility] MCHC 34.0 32.0 - 36.0 G/DL [facility] RDW 13.2 11 - 15 % [facility] Platelet Count 220 150 - 400 K/UL [facility] MPV 8.4 7 - 11 FL [facility] Specimen Blood Performing Organization Address City/State/Zipcode Phone Number [facility] [address] [place] [address] * BASIC METABOLIC PANEL (01/14/2017 4:40 AM CDT) Sodium 140 137 - 147 MMOL/L [facility] Potassium 4.3 3.5 - 5.1 MMOL/L [facility] Chloride 109 98 - 110 MMOL/L [facility] CO2 24 21 - 30 MMOL/L [facility] Anion Gap 7 3 - 12 [facility] Glucose 106 (H) 70 - 100 MG/DL [facility] Blood Urea 17 7 - 25 MG/DL [facility] Nitrogen Creatinine 1.24 0.4 - 1.24 MG/DL [facility] Calcium 9.0 8.5 - 10.6 MG/DL [facility] eGFR Non >60 >60 mL/min [facility] Comment: Armenian The eGFR is not validated for use in drug dosing adjustments.Continue to use estimated creatinine clearance per dosing reference text.Please contact the Clinical Pharmacist for questions. eGFR >60 >60 mL/min [facility] [place] Comment: The eGFR is not validated for use in drug dosing adjustments.Continue to use estimated creatinine clearance per dosing reference text.Please contact the Clinical Pharmacist for questions. Specimen Blood Performing Organization Address City/State/Zipcode Phone Number [facility] [address] [place] [address] * SWALLOW MOTION SERIES (01/13/2017 8:48 AM CDT) Specimen Impressions Performed At 1. Trace penetration with thin consistency barium. No aspiration was witnessed [facility] RESULTS on this exam. 2. Please see separately [...] Celestin M.D. on 01/13/2017 9:47 AM. Narrative Performed At SWALLOW MOTION SERIES [facility] RESULTS CLINICAL HISTORY: Male, 56 years;dysphagia TECHNIQUE: The [...] Checo Celestin M.D. on 01/13/2017 9:47 AM. Performing Organization Address City/[facility] Phone Number RAD RESULTS * CBC (01/13/2017 3:50 AM CDT) Pathologist [facility] White Blood 5.7 4.5 - 11.0 K/UL MA[facility] Cells RBC 4.04 (L) 4.4 - 5.5 M/UL [facility] Hemoglobin 12.4 (L) 13.5 - 16.5 GM/DL MAIN LAB Hematocrit 37.0 (L) 40 - 50 % [facility] MCV 91.4 80 - 100 FL [facility] MCH 30.6 26 - 34 PG [facility] MCHC 33.5 32.0 - 36.0 G/DL [facility] RDW 13.6 11 - 15 % [facility] Platelet Count 229 150 - 400 K/UL [facility] MPV 8.1 7 - 11 FL [facility] Specimen Blood Performing Organization Address City/[facility] Phone Number MAIN LAB [address] [place] [address] * BASIC METABOLIC PANEL (01/13/2017 3:50 AM CDT) Pathologist [facility] Sodium 137 137 - 147 MMOL/L [facility] Potassium 4.2 3.5 - 5.1 MMOL/L [facility] Chloride 107 98 - 110 MMOL/L [facility] CO2 23 21 - 30 MMOL/L [facility] Anion Gap 7 3 - 12 [facility] Glucose 90 70 - 100 MG/DL [facility]IN [facility] Blood Urea 13 7 - 25 MG/DL [facility]IN [facility] Nitrogen Creatinine 1.27 (H) 0.4 - 1.24 MG/DL [facility] Calcium 8.6 8.5 - 10.6 MG/DL [facility]IN [facility] eGFR Non 59 (L) >60 mL/min MAIN LAB Comment: Armenian The eGFR is not validated for use in drug dosing adjustments.Continue to use estimated creatinine clearance per dosing reference text.Please contact the Clinical Pharmacist for questions. eGFR >60 >60 mL/min [facility]IN [facility] [place] Comment: The eGFR is not validated for use in drug dosing adjustments.Continue to use estimated creatinine clearance per dosing reference text.Please contact the Clinical Pharmacist for questions. Specimen Blood Performing Organization Address [facility]/Zipcode Phone Number [facility] [address] [place] [address] * IONIZED CALCIUM (01/13/2017 3:50 AM CDT) Ionized Calcium 1.09 1.0 - 1.3 MMOL/L MAIN LAB Specimen Blood Performing Organization Address [facility] Phone Number [facility] [address] [place] [address] * PHOSPHORUS (01/13/2017 3:50 AM CDT) Phosphorus 3.2 2.0 - 4.0 MG/DL MAIN LAB Specimen Blood Performing Organization Address [facility] Phone Number [facility] [address] [place] [phone] * MAGNESIUM (01/13/2017 3:50 AM CDT) Magnesium 1.8 1.6 - 2.6 mg/dL MAIN LAB Specimen Blood Performing Organization Address [facility] Phone Number [facility] [address] [place] [phone] * CTA CHEST WO/W CONTRAST+POST IMPRESSION (01/12/2017 5:59 PM CDT) Specimen Addenda Addendum by Aleksey Britt MD on [...] Bartholomew M.D. on 01/13/2017 4:18 PM. Impressions Performed At 1. Nondiagnostic for pulmonary venous embolus. No filling defect identified in [facility] RESULTS the left atrium. Normal sized heart. 2. [...] and opinions expressed in this report Narrative Performed At CTA CHEST [facility] RESULTS Clinical Indication:Male, 56 years old. Shortness of breath.L MCA stroke. Pulmonary venous thrombosis Technique: Multiple contiguous axial CT images were obtained through the chest following the administration of IV contrast. Post processing coronal and sagittal reconstruction images were made from the axial images.Image post-processing was obtained. IV contrast: Isovue-370 Comparison: CTA [...] interpretations and opinions expressed in this report Performing Organization Address [facility] Phone Number [facility] RESULTS * PHENCYCLIDINES-URINE RANDOM (01/12/2017 2:17 PM CDT) Phencyclidine NEG NEG-NEG [facility]IN [facility] (PCP) Comment: RESULTS WERE OBTAINED BY IMMUNOASSAY AND ARE PRESUMPTIVE ONLY. POSITIVE INDICATES THE PRESENCE OF SUBSTANCE WITH CHARACTERISTICS SIMILAR TO DRUG-DRUG CLASS OR METABOLITE IN CONC. EQUAL TO OR EXCEEDING VALUES LISTED. PHENCYCLIDINE (PCP)25 NG/ML Specimen Urine - Urine Performing Organization Address [facility] Phone Number MAIN LAB [address] [place] [address] * OPIATES-URINE RANDOM (01/12/2017 2:17 PM CDT) Opiates-Urine NEG NEG-NEG [facility] LAB Comment: RESULTS WERE OBTAINED BY IMMUNOASSAY AND ARE PRESUMPTIVE ONLY. POSITIVE INDICATES THE PRESENCE OF SUBSTANCE WITH CHARACTERISTICS SIMILAR TO DRUG-DRUG CLASS OR METABOLITE IN CONC. EQUAL TO OR EXCEEDING VALUES LISTED. OPIATES 2000 NG/ML Specimen Urine - Urine Performing Organization Address [facility] Phone Number [facility] [address] [place] [address] * COCAINE-URINE RANDOM (01/12/2017 2:17 PM CDT) Cocaine-Urine NEG NEG-NEG [facility] Comment: RESULTS WERE OBTAINED BY IMMUNOASSAY AND ARE PRESUMPTIVE ONLY. POSITIVE INDICATES THE PRESENCE OF SUBSTANCE WITH CHARACTERISTICS SIMILAR TO DRUG-DRUG CLASS OR METABOLITE IN CONC. EQUAL TO OR EXCEEDING VALUES LISTED. COCAINE 300 NG/ML Specimen Urine - Urine Performing Organization Address [facility] Phone Number [facility] [address] [place] [address] * CANNABINOIDS-URINE RANDOM (01/12/2017 2:17 PM CDT) THC NEG NEG-NEG [facility] Comment: RESULTS WERE OBTAINED BY IMMUNOASSAY AND ARE PRESUMPTIVE ONLY. POSITIVE INDICATES THE PRESENCE OF SUBSTANCE WITH CHARACTERISTICS SIMILAR TO DRUG-DRUG CLASS OR METABOLITE IN CONC. EQUAL TO OR EXCEEDING VALUES LISTED. CANNABINOIDS 50 NG/ML Specimen Urine - Urine Performing Organization Address [facility] Phone Number [facility] [address] [place] [address] * BENZODIAZEPINES-URINE RANDOM (01/12/2017 2:17 PM CDT) Benzodiazepines NEG NEG-NEG [facility] Comment: RESULTS WERE OBTAINED BY IMMUNOASSAY AND ARE PRESUMPTIVE ONLY. POSITIVE INDICATES THE PRESENCE OF SUBSTANCE WITH CHARACTERISTICS SIMILAR TO DRUG-DRUG CLASS OR METABOLITE IN CONC. EQUAL TO OR EXCEEDING VALUES LISTED. BENZODIAZEPINES 200 NG/ML Specimen Urine - Urine Performing Organization Address [facility] Phone Number [facility] [address] [place] [address] * BARBITURATES-URINE RANDOM (01/12/2017 2:17 PM CDT) Barbiturates,Ur NEG NEG-NEG [facility] ine Comment: RESULTS WERE OBTAINED BY IMMUNOASSAY AND ARE PRESUMPTIVE ONLY. POSITIVE INDICATES THE PRESENCE OF SUBSTANCE WITH CHARACTERISTICS SIMILAR TO DRUG-DRUG CLASS OR METABOLITE IN CONC. EQUAL TO OR EXCEEDING VALUES LISTED. BARBITURATES 200 NG/ML Specimen Urine - Urine Performing Organization Address [facility] Phone Number [facility] [address] [place] [address] * AMPHETAMINES-URINE RANDOM (01/12/2017 2:17 PM CDT) Amphetamines NEG NEG-NEG [facility] Comment: RESULTS WERE OBTAINED BY IMMUNOASSAY AND ARE PRESUMPTIVE ONLY. POSITIVE INDICATES THE PRESENCE OF SUBSTANCE WITH CHARACTERISTICS SIMILAR TO DRUG-DRUG CLASS OR METABOLITE IN CONC. EQUAL TO OR EXCEEDING VALUES LISTED. AMPHETAMINES 1000 NG/ML Specimen Urine - Urine Performing Organization Address [facility] Phone Number MAIN LAB [address] [place] [address] * MRI HEAD WO/W CONTRAST (01/12/2017 1:36 PM CDT) Specimen Impressions Performed At 1. No evidence for acute infarct. [facility] RESULTS 2. Remote appearing infarct in the right basal ganglia. Finalized by Mc Kerr M.D. on 01/12/2017 2:12 PM. Dictated by Mc Kerr M.D. on 01/12/2017 2:10 PM. Narrative Performed At MRI brain [facility] RESULTS CLINICAL HISTORY: Stroke COMPARISON STUDY: CTA January [...] Mc Kerr M.D. on 01/12/2017 2:10 PM. Performing Organization Address [facility] Phone Number RAD RESULTS * POC CREATININE, RAD (01/12/2017 1:31 PM CDT) Creatinine, POC 1.3 (H) 0.4 - 1.24 MG/DL [facility] Specimen Performing Organization Address City/[facility] Phone Number [facility] [address] [place] [address] * BASIC METABOLIC PANEL (01/12/2017 11:48 AM CDT) Sodium 137 137 - 147 MMOL/L [facility] Potassium 4.6 3.5 - 5.1 MMOL/L [facility] Chloride 107 98 - 110 MMOL/L [facility] CO2 22 21 - 30 MMOL/L [facility] Anion Gap 8 3 - 12 [facility] Glucose 92 70 - 100 MG/DL [facility] Blood Urea 14 7 - 25 MG/DL [facility] Nitrogen Creatinine 1.28 (H) 0.4 - 1.24 MG/DL [facility] Calcium 8.6 8.5 - 10.6 MG/DL [facility] eGFR Non 58 (L) >60 mL/min [facility] Comment: Armenian The eGFR is not validated for use in drug dosing adjustments.Continue to use estimated creatinine clearance per dosing reference text.Please contact the Clinical Pharmacist for questions. eGFR >60 >60 mL/min [facility] [place] Comment: The eGFR is not validated for use in drug dosing adjustments.Continue to use estimated creatinine clearance per dosing reference text.Please contact the Clinical Pharmacist for questions. Specimen Performing Organization Address [facility] Phone Number [facility] [address] [place] [address] * LIPID PROFILE (01/12/2017 11:48 AM CDT) Cholesterol 231 (H) <200 MG/DL [facility] Triglycerides 216 (H) <150 MG/DL [facility] HDL 35 (L) >40 MG/DL [facility] LDL 152 (H) <100 MG/DL [facility] VLDL 43 MG/DL [facility] Non HDL 196 MG/DL [facility] Cholesterol Comment: Calculated non-HDL Cholesterol (non-HDL-C) indirectly measures LDL-C, Lp(a), IDL-C, and VLDL-C.It is a surrogate marker for Apoprotein B.Goal should be less than 130 mg/dL. Specimen Blood Performing Organization Address City/[facility] Phone Number MA[facility] LAB [address] [place] [address] * TROPONIN-I (01/12/2017 11:48 AM CDT) Troponin-I 0.01 0.0 - 0.05 NG/ML MAIN LAB Specimen Blood Performing Organization Address City/[facility] Phone Number MA[facility] LAB [address] [place] [address] * TROPONIN-I (01/12/2017 9:39 AM CDT) Troponin-I 0.01 0.0 - 0.05 NG/ML [facility] Specimen Blood Performing Organization Address City/[facility] Phone Number MAIN LAB [address] [place] [address] * 2-D + DOPPLER ECHOCARDIOGRAM (01/12/2017 8:54 AM CDT) BSA 1.86 m2 OTHER OUTSIDE LAB Referring Dexter Hernandes OTHER OUTSIDE Provider LAB CV ECHO PV Floor RN OTHER OUTSIDE RECYCLER LAB LVIDD 3.3 4.2 - 5.9 cm OTHER OUTSIDE LAB IVS 1.6 0.6 - 1.0 cm OTHER OUTSIDE LAB PW 1.2 0.6 - 1.0 cm OTHER OUTSIDE LAB Ao root annulus 2.2 1.4 - 2.6 cm OTHER OUTSIDE LAB LVIDS 2.1 cm OTHER OUTSIDE LAB LA volume 53.0 18 - 58 mL OTHER OUTSIDE LAB Sinus 3.7 2.1 - 3.5 cm OTHER OUTSIDE LAB STJ 3.2 1.7 - 3.4 cm OTHER OUTSIDE LAB Proximal aorta 3.5 2.1 - 3.4 cm OTHER OUTSIDE LAB LA size 3.5 3.0 - 4.0 cm OTHER OUTSIDE LAB AV peak 1.4 m/s OTHER OUTSIDE velocity LAB AV LVOT peak 21 mmHg OTHER OUTSIDE gradient LAB TDI e' 0.120 m/s OTHER OUTSIDE LAB TV rest n/a mmHg OTHER OUTSIDE pulmonary LAB artery pressure grad vals 40 mmHg OTHER OUTSIDE LAB Right 3.3 cm (2.4-4.2) OTHER OUTSIDE Ventricular LAB Basal Diameter Right 2.6 cm (2.0-3.5) OTHER OUTSIDE Ventricular Mid LAB Diameter Right 7.8 cm (5.6-8.6) OTHER OUTSIDE Ventricular LAB Long Diameter Right Atrial 12.2 cm2 (<=18) OTHER OUTSIDE Area LAB MV Peak E Cruz 0.600 m/s OTHER OUTSIDE PW LAB MV Peak A Cruz 0.600 m/s OTHER OUTSIDE LAB FS 36.36 28 - 44 % OTHER OUTSIDE LAB EF 61.81 % OTHER OUTSIDE LAB Left Atrium 28.49 10 - 32 OTHER OUTSIDE Index LAB E/A ratio 1.00 OTHER OUTSIDE LAB E/E' ratio 5.00 OTHER OUTSIDE LAB ECHO EF 65 % OTHER OUTSIDE LAB Specimen Narrative Performed At OTHER OUTSIDE LAB Left ventricular systolic function is within normal limits. LVEF 65% Mild concentric left ventricular hypertrophy. No evidence of intracardiac shunt. Aortic valve sclerosis without stenosis. No pericardial effusion. Performing Organization Address City/[facility]/Zipcode Phone Number OTHER OUTSIDE LAB * IONIZED CALCIUM (01/12/2017 7:40 AM CDT) Ionized Calcium 1.08 1.0 - 1.3 MMOL/L MAIN LAB Specimen Blood Performing Organization Address [facility] Phone Number MAIN LAB [address] [place] [address] * TROPONIN-I (01/12/2017 7:34 AM CDT) Troponin-I 0.01 0.0 - 0.05 NG/ML MAIN LAB Specimen Blood Performing Organization Address [facility] Phone Number MAIN LAB [address] [place] [address] * PHOSPHORUS (01/12/2017 7:34 AM CDT) Phosphorus 3.5 2.0 - 4.0 MG/DL [facility] MAIN LAB Specimen Blood Performing Organization Address [facility] Phone Number MAIN LAB [address] [place] [address] * MAGNESIUM (01/12/2017 7:34 AM CDT) Magnesium 1.8 1.6 - 2.6 mg/dL MAIN LAB Specimen Blood Performing Organization Address [facility] Phone Number MAIN LAB [address] [place] [address] * PROTIME INR (PT) (01/12/2017 7:34 AM CDT) INR 0.9 0.8 - 1.2 MAIN LAB Specimen Blood Performing Organization Address [facility] Phone Number [facility] MAIN LAB [address] [place] [phone] * CBC AND DIFF (01/12/2017 7:34 AM CDT) White Blood 6.4 4.5 - 11.0 K/UL [facility] MAIN LAB Cells RBC 4.32 (L) 4.4 - 5.5 M/UL [facility] MAIN LAB Hemoglobin 13.1 (L) 13.5 - 16.5 GM/DL [facility] MAIN LAB Hematocrit 39.5 (L) 40 - 50 % [facility] MAIN LAB MCV 91.4 80 - 100 FL [facility] MAIN LAB MCH 30.3 26 - 34 PG [facility] MAIN LAB MCHC 33.2 32.0 - 36.0 G/DL [facility] MAIN LAB RDW 14.1 11 - 15 % [facility] MAIN LAB Platelet Count 261 150 - 400 K/UL [facility] MAIN LAB MPV 8.3 7 - 11 FL [facility] MAIN LAB Neutrophils 62 41 - 77 % [facility] MAIN LAB Lymphocytes 19 (L) 24 - 44 % [facility] MAIN LAB Monocytes 12 4 - 12 % [facility] MAIN LAB Eosinophils 7 (H) 0 - 5 % [facility] MAIN LAB Basophils 0 0 - 2 % [facility] MAIN LAB Absolute 4.00 1.8 - 7.0 K/UL [facility] MAIN LAB Neutrophil Count Absolute Lymph 1.20 1.0 - 4.8 K/UL [facility] MAIN LAB Count Absolute 0.80 0 - 0.80 K/UL [facility] MAIN LAB Monocyte Count Absolute 0.40 0 - 0.45 K/UL [facility] MAIN LAB Eosinophil Count Absolute 0.00 0 - 0.20 K/UL [facility] MAIN LAB Basophil Count Specimen Blood Performing Organization Address [facility] Phone Number [facility] MAIN LAB [address] [place] [address] * HEMOGLOBIN A1C (01/12/2017 7:34 AM CDT) Hemoglobin A1C 5.5 4.0 - 6.0 % [facility] MAIN LAB Comment: The ADA recommends that most patients with type 1 and type 2 diabetes maintain an A1c level <7%. Specimen Blood Performing Organization Address City/[facility]/Zipcode Phone Number MAIN LAB [address] [place] [phone] * CT BRAIN PERF (01/12/2017 7:25 AM CDT) Specimen Impressions Performed At CTA head: [facility] RAD RESULTS 1. Stable CT scan of the head [...] the stroke team at 7:52 AM on 01/12/2017. Approved by Catrachito Hansen M.D. on 01/12/2017 7:59 AM By my electronic signature, I attest that I have personally reviewed the images for this examination and formulated the interpretations and opinions expressed in this report Finalized by Stuart Rogel M.D. on 01/12/2017 8:07 AM. Dictated by Catrachito Hansen M.D. on 01/12/2017 7:26 AM. Narrative Performed At EXAM: CTA HEAD AND NECK, CTA BRAIN PERFUSION [facility] RAD RESULTS HISTORY: 56-year-old male, aphasia and weakness TECHNIQUE: [...] stenosis. 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 The anterior, middle, and posterior cerebral arteries [...] stenosis. 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 The anterior, middle, and posterior cerebral arteries [...] the stroke team at 7:52 AM on 01/12/2017. Approved by Catrachito Hansen M.D. on 01/12/2017 7:59 AM By my electronic signature, I attest that I have personally reviewed the images for this examination and formulated the interpretations and opinions expressed in this report Finalized by Stuart Rogel M.D. on 01/12/2017 8:07 AM. Dictated by Catrachito Hansen M.D. on 01/12/2017 7:26 AM. Performing Organization Address City/State/Zipcode Phone Number [facility] RAD RESULTS * CTA NECK WO/W CONTRAST+POST P (01/12/2017 7:25 AM CDT) Specimen Impressions Performed At CTA head: [facility] RAD RESULTS 1. Stable CT scan of the head [...] the stroke team at 7:52 AM on 01/12/2017. Approved by Catrachito Hansen M.D. on 01/12/2017 7:59 AM By my electronic signature, I attest that I have personally reviewed the images for this examination and formulated the interpretations and opinions expressed in this report Finalized by Stuart Rogel M.D. on 01/12/2017 8:07 AM. Dictated by Catrachito Hansen M.D. on 01/12/2017 7:26 AM. Narrative Performed At EXAM: CTA HEAD AND NECK, CTA BRAIN PERFUSION [facility] RAD RESULTS HISTORY: 56-year-old male, aphasia and weakness TECHNIQUE: [...] stenosis. 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 The anterior, middle, and posterior cerebral arteries [...] stenosis. 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 The anterior, middle, and posterior cerebral arteries [...] the stroke team at 7:52 AM on 01/12/2017. Approved by Catrachito aHnsen M.D. on 01/12/2017 7:59 AM By my electronic signature, I attest that I have personally reviewed the images for this examination and formulated the interpretations and opinions expressed in this report Finalized by Stuart Rogel M.D. on 01/12/2017 8:07 AM. Dictated by Catrachito Hansen M.D. on 01/12/2017 7:26 AM. Performing Organization Address City/State/Zipcode Phone Number [facility] RAD RESULTS * CTA HEAD WO/W CONTR+POST PRO (01/12/2017 7:25 AM CDT) Specimen Impressions Performed At CTA head: [facility] RAD RESULTS 1. Stable CT scan of the head [...] the stroke team at 7:52 AM on 01/12/2017. Approved by Catrachito Hansen M.D. on 01/12/2017 7:59 AM By my electronic signature, I attest that I have personally reviewed the images for this examination and formulated the interpretations and opinions expressed in this report Finalized by Stuart Rogel M.D. on 01/12/2017 8:07 AM. Dictated by Catrachito Hansen M.D. on 01/12/2017 7:26 AM. Narrative Performed At EXAM: CTA HEAD AND NECK, CTA BRAIN PERFUSION [facility] RAD RESULTS HISTORY: 56-year-old male, aphasia and weakness TECHNIQUE: [...] stenosis. 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 The anterior, middle, and posterior cerebral arteries [...] stenosis. 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 The anterior, middle, and posterior cerebral arteries [...] the stroke team at 7:52 AM on 01/12/2017. Approved by Catrachito Hansen M.D. on 01/12/2017 7:59 AM By my electronic signature, I attest that I have personally reviewed the images for this examination and formulated the interpretations and opinions expressed in this report Finalized by Stuart Rogel M.D. on 01/12/2017 8:07 AM. Dictated by Catrachito Hansen M.D. on 01/12/2017 7:26 AM. Performing Organization Address City/State/Zipcode Phone Number [facility] RAD RESULTS * GENERAL RAD CHEST EXTERNAL IMAGING (01/12/2017 12:45 AM CDT) Specimen Narrative Performed At This order has been auto finalized and does not contain a result. * CT HEAD EXTERNAL IMAGING (01/12/2017 12:30 AM CDT) Specimen Narrative Performed At This order has been auto finalized and does not contain a result. * CT CHEST EXTERNAL IMAGING (01/12/2017 12:15 AM CDT) Specimen Narrative Performed At This order has been auto finalized and does not contain a result. * CT HEAD EXTERNAL IMAGING (01/12/2017 12:00 AM CDT) Specimen Narrative Performed At This order has been auto finalized and does not contain a result. documented in this encounter Visit Diagnoses Diagnosis Weakness - Primary Other malaise and fatigue Diagnosis unknown Other unknown and unspecified cause of morbidity or mortality Sinus bradycardia Other specified cardiac dysrhythmias Coronary artery disease of [place] artery of [place] heart with stable angina pectoris (HCC) Essential hypertension Unspecified essential hypertension Mixed hyperlipidemia Tobacco abuse Tobacco use disorder Transient cerebral ischemia, unspecified type GERI (acute kidney injury) (HCC) Acute kidney failure, unspecified Dysphagia, unspecified type History of noncompliance with medical treatment Personal history of noncompliance with medical treatment, presenting hazards to health Coronary artery disease involving [place] coronary artery of [place] heart with angina pectoris (HCC) GERD (gastroesophageal reflux disease) Esophageal reflux Chest pain Chest pain, unspecified documented in this encounter Administered Medications Action Date Dose Rate Site Medication Order MAR Action 01/13/2017 8:01 PM CDT 81 mg aspirin EC tablet 81 mg Given 81 mg, Oral, AT BEDTIME DAILY, First dose on Tue01/13/17 at 2100, Until Discontinued 01/14/2017 8:32 AM CDT 40 mg atorvastatin (LIPITOR) tablet 40 mg Given 40 mg, Oral, DAILY, First dose on Tue01/14/17 at 0900, Until Discontinued 01/13/2017 8:30 AM CDT 10 mL barium sulfate 40 % (VARIBAR HONEY ) Given oral suspension 10 mL 10 mL, Oral, ONCE, 1 dose, Lucila 01/13/17 at 0830, GI Procedure Area Only 01/13/2017 8:30 AM CDT 10 mL barium sulfate 40 % (VARIBAR NECTAR ) Given oral suspension 10 mL 10 mL, Oral, ONCE, 1 dose, [facility] 01/13/17 at 0830, GI Procedure Area Only 01/13/2017 8:30 AM CDT 10 mL barium sulfate 40 % (VARIBAR PUDDING) Given oral paste 10 mL 10 mL, Oral, ONCE, 1 dose, [facility] 01/13/17 at 0830, GI Procedure Area Only 01/13/2017 8:30 AM CDT 10 mL barium sulfate 40 % (VARIBAR THIN LIQUID Given ) oral powder for suspension 10 mL 10 mL, Oral, ONCE, 1 dose, [facility] 01/13/17 at 0830, Mixing Instructions: 1. Gently [...] Re-shake thoroughly. Product is now ready for use., GI Procedure Area Only 01/14/2017 8:32 AM CDT 300 mg buPROPion XL (WELLBUTRIN XL) tablet 300 Given mg 300 mg, Oral, DAILY, First dose on Tue01/13/17 at 1000, Until Discontinued, DO NOT CRUSH, 300 mg Given 01/13/2017 10:51 AM CDT 01/13/2017 10:00 PM CDT 1,000 mg calcium carbonate (TUMS) chew tablet Given 500-1,000 mg 500-1,000 mg, Oral, EVERY 4 HOURS PRN, Starting Tue01/13/17 at 2020, Until Tue01/14/17 at 1652, Indigestion/Heartburn, Each tab delivers 200mg elemental calcium., 01/13/2017 8:01 PM CDT 75 mg clopiDOGrel (PLAVIX) tablet 75 mg Given 75 mg, Oral, AT BEDTIME DAILY, First dose on Tue01/13/17 at 2100, Until Discontinued, This Medication can increase the risk of bleeding and may need to be held prior to surgery or invasive procedures. Consult physician in advance., 01/12/2017 2:04 PM CDT 0 mL gadobenate dimeglumine (MULTIHANCE) Given - See injection 14 mL OR/Proc 14 mL, Intravenous, ONCE, 1 dose, Tue Flowsheet 01/12/17 at 1330, NOTE: This is a HIGH ALERT Medication., 14 mL Given 01/12/2017 1:33 PM CDT 01/14/2017 6:28 AM CDT 5,000 Units Abdominal Tissue heparin (porcine) PF syringe 5,000 Units Given 5,000 Units, Subcutaneous, EVERY 8 HOURS, First dose on Lucila 01/13/17 at 0830, Until Discontinued, NOTE: This is a HIGH ALERT Medication., 5,000 Units Abdominal Tissue Given 01/13/2017 10:00 PM CDT 5,000 Units Abdomen:LLQ Given 01/13/2017 1:50 PM CDT 01/12/2017 7:15 AM CDT 100 mL iopamidol 370 (ISOVUE-370) injection 100 Given mL 100 mL, Intravenous, ONCE, 1 dose, Tue01/12/17 at 0730, NOTE: This is a HIGH ALERT Medication., 01/12/2017 6:00 PM CDT 60 mL iopamidol 370 (ISOVUE-370) injection 60 Given mL 60 mL, Intravenous, ONCE, 1 dose, Tue01/12/17 at 1800, NOTE: This is a HIGH ALERT Medication., 01/14/2017 8:32 AM CDT 60 mg isosorbide mononitrate SR (IMDUR) tablet Given 60 mg 60 mg, Oral, DAILY, First dose on Tue01/13/17 at 1115, Until Discontinued, DO NOT Crush tablets, 60 mg Given 01/13/2017 10:51 AM CDT ondansetron (ZOFRAN) injection 4 mg 4 mg, Intravenous, EVERY 6 HOURS PRN, Starting Tue01/13/17 at 1519, Until Tue01/14/17 at 1652, Nausea/Vomiting Injectable 01/13/2017 3:23 PM CDT 4 mg ONDANSETRON HCL (PF) 4 MG/2 ML IJ SOLN Given (Cabinet Override) NOW, 1 dose, Lucila 01/13/17 at 1530, Created by cabinet override, Created by cabinet override, 01/14/2017 8:32 AM CDT [address] (PROTONIX) tablet 40 mg Given 40 mg, Oral, DAILY, First dose on Tue01/12/17 at 0900, Until Discontinued, Do not crush or chew tablet., 40 mg Given 01/13/2017 9:46 AM CDT 01/13/2017 9:46 AM CDT 20 mg rosuvastatin (CRESTOR) tablet 20 mg Given 20 mg, Oral, DAILY, First dose on Lucila 01/13/17 at 0900, Until Discontinued 01/13/2017 7:23 AM CDT 50 mL/hr sodium chloride 0.9 % infusion Dose/Rate 1,000 mL, Intravenous, at 50 mL/hr, Change CONTINUOUS, Starting Tue01/12/17 at 0745, Until Tue01/13/17 at 0952 100 mL/hr Given - New Bag 01/12/2017 8:30 AM CDT 01/12/2017 7:30 AM CDT 100 mL sodium chloride PF 0.9% injection 100 mL Given 100 mL, Intravenous, ONCE, 1 dose, Tue01/12/17 at 0730, Intra-procedure (IR) 01/12/2017 6:00 PM CDT 50 mL sodium chloride PF 0.9% injection 50 mL Given 50 mL, Intravenous, ONCE, 1 dose, Tue01/12/17 at 1800, Intra-procedure (IR) documented in this encounter
--- OUTSIDE RECORDS SUMMARY | 2018-12-06 20:59 | XMS REPORT | Encounter Summary ---
Author Author [facility] Organization [facility] Address Unknown Phone Unavailable Care Team Providers Care Migration Specialist Name Role Phone Leroy Lao MD [address] Hernandes DO PCP Reason for Visit * Reason Comments Results Encounter Details Care Team Description Date Type Department Leah Shepherd MD [address] [place], [place] [id number] Results 08/22/2016 Telephone [facility] Physicians - Internal Medicine [address] [facility] MED OFFICE [address] [place] [address] Social History Date Tobacco Use Types Packs/Day [...] Status Date of Assessment Functional Status Response 08/13/2016 Does the patient have a hearing impairment: No documented as of this encounter Miscellaneous Notes * Telephone Encounter - Leah Shepherd MD - 08/22/2016 7:05 PM SPRAGGER Phone call placed to Mr. Restrepo to discuss LHC that has been ordered for tomorrow 08/23/2016. Mr. Restrepo was recently admitted for left sided chest pain and staged PCI which r evealed stable coronary anatomy from prior cath 07/29/2016 (at OSH) as well as manoj e malpositioning of stents and distal LCX disease, for which medical management was elected for treatment. Patient was informed that since he underwent LHC on 08/16/16, he does not need to return tomorrow 08/23/2016 for LHC (that was ordered prior to presentation on 07/22. He verbalized understanding and shared that he continues to have chest p ressure/discomfort that is exertional and limits his mobility. He denies associa jaz shortness of breath, diaphoresis or nausea. Pain is rated same intensity as prior to admission on 08/13. He states a "doctor general operations agent" at [facility] told him to sto p taking his lipitor (40mg daily), as he was experiencing hip and shoulder myalg ias. He has not taken lipitor for 3 days. Given hx consistent with stable angina, patient instructed to return to nearest ER if pain worsens in severity or changes in quality, and was strongly encourage d to set up appointment with primary side boss in [place], [place] for close fol low up and optimization of medical therapy. Patient verbalized understanding. He has follow up at [facility] with Dr. Simms on 11/08/2016. Leah Shepherd MD - PGY-1 [facility] Internal Medicne Pager GGER documented in this encounter Plan of Treatment Not on filedocumented as of this encounter Visit Diagnoses Not on filedocumented in this encounter
--- OUTSIDE RECORDS SUMMARY | 2018-12-06 20:59 | XMS REPORT | Encounter Summary ---
Author Author [facility] Organization [facility] Address Unknown Phone Unavailable Care Team Providers Care Technical Support Manager Name Role Phone Leroy Lao MD [address] Hernandes DO PCP Reason for Visit * Reason Comments Patient Questions Encounter Details Care Team Description Date Type Department Abigail Marie, RN Patient Questions 11/17/2016 Telephone [facility] [address] [facility] [place] [address] Social History Date Tobacco Use Types Packs/Day [...] encounter Miscellaneous Notes * Telephone Encounter - Abigail Marie RN - 11/17/2016 2:27 PM CDT Pt called Dr. Simms's nurse line today and left a vm requesting a call back abou t his medications. Attempted to contact pt back. NA. Left another detailed vm to contact Dr. Lao's office locally to be seen as the dizziness has not improved with the medication changes Dr. Simms made. Pt was having issues with dizziness before the change was made. Advised pt to call us back with any additional ques tions or if he needs our office to contact Dr. Lao's office for him. documented in this encounter Plan of Treatment Not on filedocumented as of this encounter Visit Diagnoses Not on filedocumented in this encounter
--- OUTSIDE RECORDS SUMMARY | 2018-12-06 20:59 | XMS REPORT | Encounter Summary ---
Author Author [facility] Organization [facility] Address Unknown Phone Unavailable Care Team Providers Care College Professor Name Role Phone Leroy Lao MD [address] Hernandes DO PCP Encounter Details Care Team Description Date Type Department 01/12/2017 Hospital [facility] [address] [address] Social History Date Tobacco Use Types Packs/Day [...] tongue Coronary artery disease every 5 of [place] artery of minutes as [place] heart with stable needed for angina pectoris [...] Procedure Name Priority Date/Time Associated Diagnosis CT CHEST EXTERNAL IMAGING Routine 01/12/2017 Diagnosis unknown 12:15 AM CDT documented in this encounter Results * CT CHEST EXTERNAL IMAGING (01/12/2017 12:15 AM CDT) Specimen Narrative Performed At This order has been auto finalized and does not contain a result. documented in this encounter Visit Diagnoses Not on filedocumented in this encounter
--- OUTSIDE RECORDS SUMMARY | 2018-12-06 20:59 | XMS REPORT | Encounter Summary ---
Author Author [facility] Organization [facility] Address Unknown Phone Unavailable Care Team Providers Care Manager Dental Name Role Phone Leroy Lao MD [address] Silver Hernandes DO PCP Reason for Visit * Reason Comments New To Provider 6 mos hosp f/u PCI was done in hosp. Encounter Details Care Team Description Date Type Department Sarah Camara PA-C [address] [address] [phone] David Simms MD [address] [address] [phone] New To Provider (6 mos hosp f/u PCI was done in hosp. ) 11/08/2016 Office Visit [facility] [address] [address] Social History Date Tobacco Use Types Packs/Day [...] Signs Reading Time Taken Comments Vital Sign 102/64 11/08/2016 11:07 AM CDT Blood Pressure - - Pulse - - Temperature - - Respiratory Rate - - Oxygen Saturation - - Inhaled Oxygen Concentration 74.5 kg (164 lb 3.2 oz) 11/08/2016 11:07 AM CDT Weight 175 cm (5' 8.9") 11/08/2016 11:07 AM CDT Height 24.32 11/08/2016 11:07 AM CDT Body Mass Index documented in this encounter Functional Status Date of Assessment Functional Status Response 08/13/2016 Does the patient have a hearing impairment: No documented as of this encounter Patient Instructions * Patient Instructions* Lidia Chang APRN-C - 11/08/2016 11:32 AM CDT Start taking rosuvastatin (Crestor) 10 mg daily. Recheck cholesterol in 3 months. Work on quitting smoking. Stop the Norvasc Start Losartan 50mg daily (stop the lisinopril - causes the cough) documented in this encounter Progress Notes * Lidia Chang APRN-C - 11/08/2016 11:15 AM CDT Date of Service: 11/08/2016 Kaz Restrepo is a 56 y[address] male[address] HPI Dr. Simms and I had the pleasure of seeing Kaz Restrepo for post hospital card iac follow-up. He is a 56-year-old with history of coronary disease, hypertensi on, hyperlipidemia, and tobacco use. He was referred for a chronic total occlus ion of the right coronary artery and underwent PCI with a Xience drug-eluting st ent to this lesion. He was also noted to have a high-grade stenosis to a proxim al first obtuse marginal branch and moderate stenosis to the intermediate ramus. He was readmitted for chest discomfort. He went back to the lab instructor, but the stent was patent and the distal circumflex obtuse marginal branch was a small v essel supplying a very small amount of myocardium. It was not felt to be contri buting to his chest discomfort, and medical management was recommended. He was started on isosorbide. Since he has been home, his chest pain has essentially resolved. He is taking h is medications as prescribed. He is having some dizziness and lightheadedness. He was started on atorvastatin, but it caused significant leg discomfort. He s topped the medication, which helped, but he still has leg pain with ambulation. He had studies to assess for peripheral vascular disease that apparently were n egative. ([id number]) Filed Vitals: 11/08/16 1107 BP: 102/64 Height: 1.75 m (5' 8.9") Weight: 74.481 kg (164 lb 3.2 oz) Body mass index is 24.32 kg/(m^2). 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 Judgment and thought c ontent normal. Problems Addressed Today Encounter Diagnoses Name Primary? 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 Coronary disease. He had a recent stent to the SENIOR PORTFOLIO MANAGER of the right coronary art nupur. He needs to continue aspirin indefinitely and Plavix for at least 6 months , preferably 12 months following stent placement. He needs ongoing risk factor modification. 2. Hypertension. His blood pressure is on the low side of normal and he is havi ng some dizziness with position changes. He also complains of a cough, which ma y be related to lisinopril. We will stop amlodipine and switch him from lisinop ril to losartan 50 mg daily. He should continue to check his pressure at home a nd let us know if it runs high. 3. Dyslipidemia. He did not tolerate atorvastatin secondary to leg pain. We wi ll try rosuvastatin 10 mg daily and recheck cholesterol in 3 months. If he does not tolerate rosuvastatin, we may need to consider a PCSK9 inhibitor. 4. Tobacco use. Cessation is encouraged. He follows with Dr. Lao and can continue to follow with him routinely. We are available as needed. Thank you for allowing us to participate in the care of t his pleasant individual. If you have questions or concerns, please do not hesit ate to contact us. ([id number]) MANUEL Sanchez Current Medications (including today's revisions) amLODIPine (NORVASC) [...] Chang, our Advanced Nurse Practitioner. He is rosey barakat well post intervention with regard to his chest pain. I would like for him to remain on aspirin indefinitely, and Plavix preferably for 12 months; however, at least a minimum of 6 months. He has been having some orthostatic lighthead edness. His blood pressures are low and he gets dizzy at the same time, so we a re going to discontinue the amlodipine. In addition, he notes he is having a radhika carrasco cough on lisinopril, so we will switch this over to losartan. His phys ical exam was unremarkable. With regard to the plan, he is going to be seeing Rosey Lao back in followup. We appreciate being able to participate in his care. Please feel free to contact us if you have any further questions. 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
--- OUTSIDE RECORDS SUMMARY | 2018-12-06 20:59 | XMS REPORT | Encounter Summary ---
Author Author [facility] Organization [facility] Address Unknown Phone Unavailable Care Team Providers Care Misdraw Hand Name Role Phone Leroy Lao MD [address] Hernandes DO PCP Encounter Details Care Team Description Date Type Department 01/12/2017 Hospital [facility] [address] [address] Social History Date Tobacco Use Types Packs/Day [...] tongue Coronary artery disease every 5 of [place] artery of minutes as [place] heart with stable needed for angina pectoris [...] Results * CT HEAD EXTERNAL IMAGING (01/12/2017 12:00 AM CDT) Specimen Narrative Performed At This order has been auto finalized and does not contain a result. documented in this encounter Visit Diagnoses Not on filedocumented in this encounter
--- OUTSIDE RECORDS SUMMARY | 2018-12-06 20:59 | XMS REPORT | Encounter Summary ---
Author Author [facility] Organization [facility] Address Unknown Phone Unavailable Care Team Providers Care Forestry Biology Specialist Name Role Phone Leroy Lao MD [address] Silver Hernandes DO PCP Reason for Visit * Reason Comments Dizziness Encounter Details Care Team Description Date Type Department Abigail Marie RN Dizziness 11/16/2016 Telephone [facility] 4000 [facility] [place] [address] Social History Date Tobacco Use Types Packs/Day [...] Telephone Encounter - Abigail Marie RN - 11/16/2016 9:56 AM CDT Pt's Shereen estevez, called Dr. Simms's nurse line yesterday ([facility] for ) and left a vm to report pt's BP was 139/61 and he was havi ng some dizziness and nausea. Kristyn wanted to see if the new bp medication wou ld cause these issues. Attempted to contact pt back at home #. NA. Pt was perri larkin on losartan from lisinopril at a recent OV with Dr. Simms. Left detailed vm to advise pt if he was having more of the same symptoms to let us know or to conta ct Dr. Lao's office in [place] to get an appt for evaluation. Pt will be con tinuing primary cardiac care with Dr. Lao locally. Instructed pt to call our o ffice back with any additional questions or concerns. documented in this encounter Plan of Treatment Not on filedocumented as of this encounter Visit Diagnoses Not on filedocumented in this encounter
--- OUTSIDE RECORDS SUMMARY | 2018-12-06 21:00 | XMS REPORT | Encounter Summary ---
[facility] Address Unknown Phone Unavailable Care Team Providers Care Dryer Operator Name Role Phone Leroy Lao MD 21 Silver Rabago DO PCP Encounter Details Care Team Description Date Type Department Ayo King MD [address] [facility] [place], [place] [id number] Shayy Gonzales MD Forwarding Address Unknown Gerson Lundy MD [address] [address] [place], [place] [id number] Unstable angina (HCC) 08/13/2016 [facility] 08/16/2016 [address] [place], [place] [id number] Social History Date Tobacco Use Types Packs/Day [...] Signs Reading Time Taken Comments Vital Sign 124/73 08/16/2016 1:06 PM LAST MARKER Blood Pressure 68 08/16/2016 1:06 PM LAST MARKER Pulse 36.9 C (98.5 F) 08/16/2016 1:06 PM LAST MARKER Temperature - - Respiratory Rate 97% 08/16/2016 1:06 PM LAST MARKER Oxygen Saturation - - Inhaled Oxygen Concentration 72.5 kg (159 lb 13.3 oz) 08/16/2016 12:19 PM LAST MARKER Weight 175 cm (5' 8.9") 08/16/2016 12:19 PM LAST MARKER Height 23.67 08/16/2016 12:19 PM LAST MARKER Body Mass Index documented in this encounter Functional Status Date of Assessment Functional Status Response 08/13/2016 Does the patient have a hearing impairment: No documented as of this encounter Discharge Summaries * Shayy Gonzales MD - 08/16/2016 4:48 PM LAST MARKER Physician Discharge Summary Name: Kaz Restrepo Date Of : 1960 Age: 56 years Admit date: 08/13/2016 Discharge date: 08/16/2016 Attending Physician: Shayy Gonzales MD Service: Cardiology-[address] [place] [address]/[facility]- 2634 Physician Summary completed by: Leah Stark MD Reason for hospitalization: Recurrent Chest pain Significant PMH: Past Medical History Diagnosis Date Coronary artery disease 08/09/2016 Hypertension 08/09/2016 Hyperlipidemia 08/09/2016 GERD (gastroesophageal reflux disease) 08/09/2016 History of noncompliance with medical treatment 08/09/2016 Chest pain 08/09/2016 Tobacco abuse 08/09/2016 Elevated liver function tests History of methamphetamine abuse + UDS 09/2015 - pt denies drug use 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 Allergies: Pcn Admission Physical Exam notable for: Vital Signs: Most Recent Vital Signs: 24 Hour Range BP: 144/92 mmHg (08/13 2099) Temp: 36.6 C (97.8 F) (08/13 2099) Pulse: 61 (08/13 2099) Respirations: 19 PER MINUTE (08/13 2099) SpO2: 98 % (08/13 2099) SpO2 Pulse: 59 (08/13 2099) Height: 175.3 cm (5' 9") (08/13 2099) BP: (140-144)/(91-97) Temp: [36.6 C (97.8 F)] Pulse: [61-62] Respirations: [12 PER MINUTE-19 PER MINUTE] SpO2: [98 %] O2 Delivery: [-] Filed Vitals: 08/13/162099 Weight: 72.5 kg (159 lb 13.3 oz) No intake or output data in the 24 hours ending 08/13/162146 Physical Exam General Appearance: normal built, no acute distress Skin: warm, dry Eyes: conjunctivae and lids normal, pupils are equal and round Neck Veins: normal JVP , neck veins are not distended Cardiovascular system: Pulse 64/min, regular rhythm ,no palpable thrills/heaves, S1 S2 heard, no murmurs, no rub, no carotid bruit. Pedal Pulses: Symmetric pedal pulses + Respiratory system: No acute distress No use of accessory muscles Normal vesicular breath sounds over all the lung belcher bilaterally No added sounds Abdominal Exam: soft, non-tender Neurologic Exam: alert and oriented x 3, neurological assessment grossly intact Admission Lab/Radiology studies notable for: Results for KAZ RESTREPO ( ) as of 08/17/2016 18:00 Ref. Range 08/13/2016 22:07 Hemoglobin Latest Ref Range: 13.5-16.5 GM/DL 11.5 (L) Hematocrit Latest Ref Range: 40-50 % 35.0 (L) Platelet Count Latest Ref Range: 150-400 K/UL 294 White Blood Cells Latest Ref Range: 4.5-11.0 K/UL 6.2 RBC Latest Ref Range: 4.4-5.5 M/UL 3.77 (L) MCV Latest Ref Range: 80-100 FL 92.7 MCH Latest Ref Range: 26-34 PG 30.4 MCHC Latest Ref Range: 32.0-36.0 G/DL 32.8 MPV Latest Ref Range: 7-11 FL 8.2 RDW Latest Ref Range: 11-15 % 13.0 INR Latest Ref Range: 0.8-1.2 1.0 APTT Latest Ref Range: 24.0-40.0 SEC 27.8 Magnesium Latest Ref Range: 1.6-2.6 mg/dL 1.8 Phosphorus Latest Ref Range: 2.0-4.0 MG/DL 3.6 B Type Natriuretic Peptide Latest Ref Range: 0-100 PG/ML 22.0 Troponin-I Latest Ref Range: 0.0-0.05 NG/ML 0.06 (H) CTA Chest IMPRESSION 1. Mild aortic valvular calcification without [...] Sagar Velez M.D. on 08/14/2016 11:51 PM. Brief Hospital Course: The patient was admitted and the following issues were a ddressed during this hospitalization: (with pertinent details). Mr. Restrepo is a 56 year old male with past medical history of HTN, HLD, tobacco u se, CAD s/p PCI with CHERRI to RCA on 08/09/16 with known OM disease who presented t [facility] ED with persistent substernal, left sided chest pain and was admitted for staged PCI. He reports history of chest pain since 2014. He underwent LHC at OSH on 07/29/2016 , which revealed chronic total occlusion of RCA and high grade lesion in LCX, al kelsey with moderate )605) lesion of mid LAD. Echo at that time showed EF 60%. Repe at [facility] at time of PCI (08/10/2016) showed presence of cherri TO MID rca, 80-90% prox imal 1st OM stenosis, 50-60% diffuse mid- intermediate ramus stenosis and normal LVEDP. On admission, patient was hemodynamically stable. Troponins mildly elevated to 0 .07 (peak) and normalized on hospital day 2 (to 0.03). No new ischemic changes were seen on EKG. He was started on heparin gtt and nitro gtt. CLEARANCE REPRESENTATIVE Aspirin, plav ix, coreg, statin, lisinopril and norvasc were continued. Patient was taken for LHC, which revealed unchanged coronary anatomy with widely patent portion of RCA with some malpositioning of stents in mid/distal RCA from positive remodeling (per LHC report). 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 LCX and high OM/ramus were also noted to have disease and medical management was lev cted for these lesions as well. Mr. Restrepo was counseled on the importance of smo emmanuel cessation. ECHO on day of discharge revealed normal EF and LV outflow obstruction, which is unlikely to be a contributor to patient's chest discomfort, though recommend co nsidering starting diltiazem if patient continues to have chest discomfort relat ed to LVOT. Patient was discharged home on CLEARANCE REPRESENTATIVE medication regimen of norvasc, ASA, atorvasta tin, carvedilol, plavix, fish oil, Imdur, lisniopril, nitrostat. Pantoprazole was changed to Omeprazole at patients' request. He has follow up appointment with Dr. Simms in [facility] on 11/08/2016. Condition at Discharge: Stable Discharge Diagnoses: Hospital Problems Active Problems Coronary artery disease of skokomish artery of skokomish heart with stable angina pec toris (HCC) Essential hypertension Mixed hyperlipidemia GERD (gastroesophageal reflux disease) Unstable angina (HCC) Surgical Procedures: None Significant Diagnostic Studies and Procedures: cardiac graphics: Left heart cath eterization DIAGNOSTIC ANGIOGRAPHY: 1. Left main coronary artery: The left main coronary artery has no significant angiographic stenosis. It is widely patent. It divides into an LAD and a ci rcumflex branch. 2. Left anterior descending artery: The LAD is a large vessel that does reach the apex and wraps around it. The LAD has mild to moderate plaquing throughout its course, without any focal area of significant stenosis. The LAD does wrap around the apex to supply a significant portion of the inferior apex. The airam gonal branch arises from the mid LAD. It [...] branch that is almost like a ramus intermedius . In its proximal portion, there is about a 60% stenosis that is followed by s ignificant tortuosity but no critical stenosis. There is CHRYSTAL-3 flow. The di stal circumflex artery continues into a small obtuse marginal branch that has a 90% focal stenosis but CHRYSTAL-3 flow. This is unchanged from before. Right aft er the bifurcation of this large obtuse marginal branch or high ramus branch, th e circ itself has a 70% stenosis. This is also unchanged from before. 4. Right coronary artery: The RCA has a long segment of stents going from the proximal portion to the distal portion before the bifurcation. The stents are widely patent, without any abnormality. In the mid/distal RCA, there is an are a of stent malposition from positive remodeling of the artery, likely from the e ntry dissection plane. Distally, the RCA divides into a large PLV and a large PDA. The PDA has no significant stenosis. The PLV has a 50% stenosis, unchan ged from before. LEFT VENTRICULAR HEMODYNAMICS: LV systolic pressure measures 150 mmHg. End-d iastolic pressure is low to normal at 10 mmHg. There is no pullback gradient a cross the aortic valve. FINAL IMPRESSION: 1. The patient has unchanged coronary artery anatomy, manifested by a widely pat ent stented portion of the RCA which was completely occluded before that interve ntion 5 days ago. There is malposition of stents in the mid/distal RCA from po sitive remodeling, likely in a dissection plane site during the complex CORK SLABS SAWYER. A t this point, I would recommend conservative management for this area, rather th an ballooning it, as very likely this may thrombose and heal off without affecti ng the stents. 2. The patient's distal circumflex artery indeed has a 90% stenosis, but it is a very small vessel supplying a very small amount of myocardium. The patient's discomfort is incessant, going on for 3 days, and is unchanged even after the PC I of the RCA, as his pain was similar. I discussed this with Dr. Simms, the alda german's primary engineering test mechanic, today, who reviewed the images and agrees that we should continue medical management rather than intervention at this point, as th ere is no significant mortality benefit from intervention of this, and the const ant unrelenting pain is unlikely from this. 3. The high obtuse marginal/ramus and the diagonal have moderate disease, likely because of rest pain, and recommend medical management. 4. Aggressive smoking cessation recommendations are being made. Melisa Ortiz MD KG/Patrick /[id number] P CC: - SILVER RABAGO Consults: None Patient Disposition: Home Patient instructions/medications: [...] at discharge. Report These Signs and Symptoms Please contact your doctor if you have any of the following symptoms: Chest pain , shortness of breath, lightheadedness, dizziness, near fainting, palpitations, abd pain, back pain, or bleeding. Questions About Your Stay For questions or concerns regarding your hospital stay: - DURING BUSINESS HOURS (8:00 AM - 4:30 PM): Call [phone] and asked to be transferred to your discharge attending physic liam. - AFTER BUSINESS HOURS (4:30 PM - 8:00 AM, on weekends, or holidays): Call [phone] and ask the squeezer operator to page the on-call doctor for the discha rge attending physician. Discharging attending physician: SHAYY GONZALES [[id number]] Cardiac Diet Limiting unhealthy fats and cholesterol [...] home, you may contact a dietitian clif pa . Return Appointment 11/08/2016 11:15 AM David Simms MD [facility] Current Discharge Medication List START taking these medications Details isosorbide mononitrate SR (IMDUR) 60 mg tablet Take 1 Tab by mouth daily. Qty: 90 Tab, Refills: 3 PRESCRIPTION TYPE: Normal omeprazole (PRILOSEC OTC) 20 mg tablet Take 1 Tab by mouth daily. Qty: 90 Tab, Refills: 3 PRESCRIPTION TYPE: Normal CONTINUE these medications which have NOT CHANGED Details amLODIPine (NORVASC) 10 mg tablet Take 10 mg by mouth daily. PRESCRIPTION TYPE: Historical Med aspirin EC 81 mg tablet Take 81 mg by mouth daily. Take with food. PRESCRIPTION TYPE: Historical Med atorvastatin (LIPITOR) 40 mg tablet Take 1 Tab by mouth at bedtime daily. Qty: 90 Tab, Refills: 3 PRESCRIPTION TYPE: Fax Associated Diagnoses: Coronary artery disease of skok[place] artery of skokomish heart w ith stable angina pectoris (HCC); Essential hypertension; Mixed hyperlipidemia; Gastroesophageal reflux disease, esophagitis presence not specified; Ischemic ch est pain (HCC); Tobacco abuse; History of noncompliance with medical treatment carvedilol (COREG) 12.5 mg tablet Take 6.25 mg by mouth twice daily with meals. Take with food. PRESCRIPTION TYPE: Historical Med clopiDOGrel (PLAVIX) 75 mg tablet Take 75 mg by mouth daily. PRESCRIPTION TYPE: Historical Med fish oil- omega 3-DHA/EPA 300/1,000 mg capsule Take 1 Cap by mouth daily. PRESCRIPTION TYPE: Historical Med lisinopril (PRINIVIL; ZESTRIL) 20 mg tablet Take 20 mg by mouth daily. PRESCRIPTION TYPE: Historical Med nitroglycerin (NITROSTAT) 0.[address] 1 Tab under tongue every 5 minutes as needed for Chest Pain. Max of 3 tablets, call 911. Qty: 25 Tab, Refills: 3 PRESCRIPTION TYPE: Fax Associated Diagnoses: Coronary artery disease of skokom[place] artery of skokomish heart w ith stable angina pectoris (HCC); Essential hypertension; Mixed hyperlipidemia; Gastroesophageal reflux disease, esophagitis presence not specified; Ischemic ch est pain (HCC); Tobacco abuse; History of noncompliance with medical treatment The following medications were removed from your list. This list includes medic ations discontinued this stay and those removed from your prior med list in our system pantoprazole DR (PROTONIX) 40 mg tablet Future Appointments Date Time Provider Department Center 11/08/2016 11:15 AM [facility] Pending items needing follow up: None Signed: Leah Stark MD 08/17/2016 ATTESTATION I reviewed all relevant information in chart, including the EKG and other test r esults. I discussed the case with the resident, and concur with the findings and documentation of history, physical exam, assessment, the overall management and discharge plans unless otherwise noted. The discharge plan was discussed with t he patient. The patient understood and agreed. I have made additions and correct ions to the discharge summary as needed. Physician: Shayy Gonzales M.D. Date: 08/17/16 cc: Primary Care Physician: Silver Rabago Verified Referring physicians: Silver Rabago, Additional provider(s): David Simms MD MARKER documented in this encounter Medications at Time of Discharge Start Date End Date Medication Sig Dispensed Refills aspirin EC 81 mg tablet Take 81 [...] tongue Coronary artery disease every 5 of skokomish artery of minutes as skokomish heart with stable needed for angina pectoris (HCC), Chest Pain. Essential hypertension, Max of 3 Mixed hyperlipidemia, tablets, call Gastroesophageal reflux 911. disease, esophagitis presence not specified, Ischemic chest pain, Tobacco abuse, History of noncompliance with medical treatment 11/08/2016 amLODIPine (NORVASC) 10 Take 10 mg by 0 mg tablet mouth daily. 08/10/2016 11/08/2016 atorvastatin (LIPITOR) 40 Take 1 Tab by 90 Tab 3 mg tabletIndications: mouth at Coronary artery disease bedtime of skokomish artery of daily. skokomish heart with stable angina pectoris (HCC), Essential hypertension, Mixed hyperlipidemia, Gastroesophageal reflux disease, esophagitis presence not specified, Ischemic chest pain, Tobacco abuse, History of noncompliance with medical treatment 01/14/2017 carvedilol (COREG) 12.5 Take 6.25 mg 0 mg tablet by mouth twice daily with meals. Take with food. 08/16/2016 05/16/2017 isosorbide mononitrate SR Take 1 Tab by 90 Tab 3 (IMDUR) 60 mg tablet mouth daily. 11/08/2016 lisinopril (PRINIVIL; Take 20 mg by 0 ZESTRIL) 20 mg tablet mouth daily. 08/16/2016 11/08/2016 omeprazole (PRILOSEC OTC) Take 1 Tab by 90 Tab 3 20 mg tablet mouth daily. documented as of this encounter Progress Notes * Clara Grayson RN - 08/16/2016 4:48 PM LAST MARKER Cardiac Rehab Call Back Note:pt states he had chest pain the other night, took 3 nitro and pain was relieved. Reeducated re;angina and nitro use. Instructed pt to call dr simms re; chest pains. Pt agreed to call. Are you tolerating activity?Yes Is pain controlled?Yes Is appetite normal?Yes Are you having symptoms of heart discomfort?Yes Are you having signs of infection at your incision sites or groin site?No Do you want outpt cardiac rehab?No MARKER * Shayy Gonzales MD - 08/16/2016 4:48 PM LAST MARKER Progress Note Name: Kaz Restrepo Admission Date: 08/13/2016 Admission Diagnosis: Unstable angina (HCC) [I20.0] LOS: 2 days Active Problems: Unstable angina (HCC) Assessment/Plan: Mr. Restrepo is a 56 yo male with HTN, HLD, GERD, CAD s/p PCI 07/2016 who was recent ly received C at [facility] 08/09/16 with plan for staged PCI and is admitted for rec urrent chest pain. # Unstable Angina S/p PCI 08/09/16 to RCA with known OM disease, plan for staged PCI Presented with recurrent chest pain Trops peaked at 0.07. It is trending down to 0.06 & 0.03/ Cardiac Cath Report: ASSESSMENT: 1. Severe coronary artery disease manifest by the following:. a. Chronic total occlusion in the mid right coronary artery status post successf ul PCI with a 2.5 x 38 and 3.0 x 38 Xience drug-eluting stent from distal to pro ximal. 2. 80% to 90% proximal 1st obtuse marginal stenosis. 3. 50% to 60% diffuse mid intermediate ramus stenosis. 4. Normal left ventricular end-diastolic pressures We will continue aspirin 81 mg daily for the indefinite future as well as Plavix preferably for 12 months post intervention and we will stage the intervention o f the obtuse marginal segment. Plan: > Stopped IV Heparin Today > We will manage this a single vessel disease. Continue Statin, ASA, plavix. We also have added on 60 mg of Imdur as well. > If the Imdur is ineffective, we will consider Ranolazine 500 mg BID # CAD S/p PCI 08/09/16 to CORK SLABS SAWYER of RCA, with known OM disease 07/2016 OSH ECHO with EF 60% >Continue CLEARANCE REPRESENTATIVE aspirin,plavix, statin,coreg,lisinopril and norvasc # HTN / HLD >CLEARANCE REPRESENTATIVE Amlodipine, Lisinopril >Atorvastatin 40mg # GERD >Protonix # Tobacco Use >Cessation counseling FEN: -IVF: None,Replace prn, NPO PPx: Hep gtt Dispo: Admit to CV 1. Transfer to the floors Code Status: Full Patient seen and discussed with Dr. Gonzales ATTESTATION I personally performed the bustamante portions of the E/M visit, examined the patient a nd reviewed all relevant information in chart, including the EKG and other test results. I discussed the case with the resident, and concur with the findings an d documentation of history, physical exam, assessment, and the overall managemen t plans unless otherwise noted. I have made additions and corrections to the ent ry as needed. No recurrence of chest pain. Echo showed LVOT obstruction. Will consider diltiaz em as outpatient if chest pain symptoms are attributed to this, although unlikel y. Continue risk factor modification. Home soon. Physician: Shayy Gonzales M.D. Date: 08/16/16 Subjective: Kaz Restrepo is a 56 y.o. male. No acute overnight events reported. Mr. Restrepo was seen and examined. He still has chest discomfort in chest. It is 1 /10. Pain does not radiate anywhere else. Diet, movemention, and respiration d oes affect the pain. He describes it as pressure on sternal region. Otherwis e, no fever, chills, N/V/D. Objective: Vital Signs: Last Filed Vital Signs: 24 Hour Range BP: 133/67 mmHg (08/15 1145) Temp: 36.7 C (98 F) (08/15 1145) Pulse: 66 (08/15 1300) Respirations: 12 PER MINUTE (08/15 1145) SpO2: 94 % (08/15 1300) O2 Delivery: None (Room Air) (08/15 114) SpO2 Pulse: 69 (08/15 1300) BP: (112-170)/(59-95) Temp: [36.4 C (97.5 F)-36.9 C (98.5 F)] Pulse: [53-74] Respirations: [12 PER MINUTE-23 PER MINUTE] SpO2: [82 %-100 %] O2 Delivery: [-] Intake/Output Summary (Last 24 hours) at Gross per 24 hour Intake 1167.03 ml Output 800 ml Net 367.03 ml PHYSICAL EXAMINATION: General Appearance: Alert, cooperative, no distress. Head: Normocephalic, without obvious abnormality, atraumatic Neck: no JVD; no lymphadenopathy Eyes: Conjunctivae/corneas clear. PERRL, EOMs intact. Lungs: Clear breath sounds bilaterally. Chest: touching the chest did not re-elicit the chest pain. Heart: Regular rate and rhythm, S1, S2 normal, no murmur, rub, or gallop Abdomen: Soft, non-tender. Bowel sounds normal. No masses. No organomegaly. Extremities: Atraumatic, no cyanosis, no edema. Pulses: +2 pulse in both extremities. Neurologic: CNII - XII grossly intact; no gross focal deficits LABS: Recent Labs 08/13/16220608/14/163 08/15/16 0544 NA -- 138 136* K -- 4.0 4.7 CL -- 106 104 CO2 -- GAP -- 7 6 BUN -- 22 20 CR -- 1.07 1.06 GLU -- 101* 105* CA -- 9.1 9.2 MG 1.8 2.0 2.1 PO4 3.6 -- -- Recent Labs 08/13/16220608/14/16 0030 08/14/16 0433 08/14/16 1155 08/14/16 1850 08/15/16 0544 WBC 6.2 -- 4.8 -- -- 6.2 HGB 11.5* -- 11.6* -- -- 12.0* HCT 35.0* -- 33.7* -- -- 34.4* PLTCT 294 -- 283 -- -- 295 INR 1.0 -- -- -- -- -- PTT 27.8 -- 38.0 39.9 -- 65.1* TNI 0.06* 0.07* 0.06* -- 0.03 -- Estimated Creatinine Clearance: 81 mL/min (based on Cr of 1.06). Filed Vitals: 08/13/16 2100 08/15/16 0600 Weight: 72.5 kg (159 lb 13.3 oz) 72.7 kg (160 lb 4.4 oz) No results for input(s): PHART, PO2ART in the last 72 hours. Invalid input(s): PC02A MEDS amLODIPine 10 mg Oral QDAY aspirin EC 81 mg Oral QDAY atorvastatin 40 mg Oral QHS carvedilol 6.25 mg Oral BID w/meals clopiDOGrel 75 mg Oral QDAY enoxaparin 40 mg Subcutaneous QDAY isosorbide mononitrate SR 60 mg Oral QDAY lisinopril 20 mg Oral QDAY pantoprazole DR 40 mg Oral QDAY IV MEDS Prnacetaminophen Q6H PRN, aluminum/magnesium hydroxide Q4H PRN, d iphenhydrAMINE Q4H PRN OR diphenhydrAMINE Q4H PRN, docusate QDAY PRN, nitrog lycerin Q5 MIN PRN, ondansetron Q6H PRN, ondansetron Q6H PRN, traMADol Q6H PRN MARKER * Joan Weiner RN - 08/16/2016 4:45 PM LAST MARKER Assumed care at 1335. Assessment complete and documented per flowsheet. SR on tele. VSS per trend. AOx4. Puncture site C/D/I. No pain reported. Adequate UOP. DC orders in place, this RN went over orders with patient, no questions at this time. IV and tele removed. Pt. taken down to doors by hospital staff. Pt. UAL, call light within reach. No further orders at this time, will continue to monitor. MARKER * Shayy Gonzales MD - 08/16/2016 10:53 AM LAST MARKER Cardiology Progress Note Today's Date: 08/16/2016 Name: Kaz Restrepo MR N: [id number] Admission Date: 08/13/2016 LOS: 3 days Assessment/Plan: coronary artery disease Active Problems: Unstable angina (HCC) Mr. Restrepo is a 56 yo male with HTN, HLD, GERD, CAD s/p PCI 07/2016 who was recent ly received LHC at [facility] 08/09/16 with plan for staged PCI and is admitted for rec urrent chest pain, and will likely require staged PCI during this hospitalizatio n. Unstable Angina S/p PCI 08/09/16 to RCA with known OM disease, plan for staged PCI Presented with recurrent chest pain Trops peaked at 0.07. It is trending down to 0.06 & 0.03 Cardiac Cath Report: Severe coronary artery disease manifest by the following:. Chronic total occlusion in the mid right coronary artery status post successf ul PCI with a 2.5 x 38 and 3.0 x 38 Xience drug-eluting stent from distal to pro ximal. 2. 80% to 90% proximal 1st obtuse marginal stenosis. 3. 50% to 60% diffuse mid intermediate ramus stenosis. 4. Normal left ventricular end-diastolic pressures Recommendations: We will continue aspirin 81 mg daily for the indefinite future as well as Plavix preferably for 12 months post intervention and we will stage t he intervention of the obtuse marginal segment. Plan: > Echo today, some LVOT noted, though clinical significance minimal > We will manage this a single vessel disease. Continue Statin, ASA, plavix. We also have added on 60 mg of Imdur as well. > Follow up with Dr. Simms 10/2016 CAD > S/p PCI 08/09/16 to CORK SLABS SAWYER of RCA, with known OM disease > 07/2016 OSH ECHO with EF 60% > Continue CLEARANCE REPRESENTATIVE aspirin,plavix, statin,coreg,lisinopril and norvasc HTN / HLD >CLEARANCE REPRESENTATIVE Amlodipine, Lisinopril >Atorvastatin 40mg GERD >Protonix Tobacco Use >Cessation counseling FEN: -IVF: None,Replace prn, cardiac diet PPx: Hep gtt Dispo: Discharge to home today with cardiology follow up Code Status: Full Leah Stark MD - PGY-1 [facility] Internal Medicne Pager Patient seen and discussed with Dr. Gonzales ATTESTATION I personally performed the bustamante portions of the E/M visit, examined the patient a nd reviewed all relevant information in chart, including the EKG and other test results. I discussed the case with the resident, and concur with the findings an d documentation of history, physical exam, assessment, and the overall managemen t plans unless otherwise noted. I have made additions and corrections to the ent ry as needed. No recurrence of chest pain. Echo showed LVOT obstruction. Will consider diltiaz em as outpatient if chest pain symptoms are attributed to this, although unlikel y. Continue risk factor modification. Home soon. Physician: Shayy Gonzales M.D.Date: 08/16/16 __ Subjective: Kaz Restrepo is a 56 y.o. male. Overnight Events:No new events noted. Patient doing well this morning. Seen at bedside, present. Patient continues to in termittent chest pressure without dyspnea or orthopnea. Deneis cough, fever, chi lls, abdominal pain, nausea, diaphoresis. Objective: Scheduled Meds: amLODIPine (NORVASC) tablet 10 mg 10 mg Oral QDAY aspirin EC tablet 81 mg 81 mg Oral QDAY atorvastatin (LIPITOR) tablet 40 mg 40 mg Oral QHS carvedilol (COREG) tablet 6.25 mg 6.25 mg Oral BID w/meals clopiDOGrel (PLAVIX) tablet 75 mg 75 mg Oral QDAY enoxaparin (LOVENOX) syringe 40 mg 40 mg Subcutaneous QHS isosorbide mononitrate SR (IMDUR) tablet 60 mg 60 mg Oral QDAY lisinopril (PRINIVIL; ZESTRIL) tablet 20 mg 20 mg Oral QDAY pantoprazole DR (PROTONIX) tablet 40 mg 40 mg Oral QDAY Continuous Infusions: PRN and Respiratory Meds:acetaminophen Q6H PRN, aluminum/magnesium hydroxide Q4H PRN, diphenhydrAMINE Q4H PRN OR diphenhydrAMINE Q4H PRN, docusate QDAY PRN, nitroglycerin Q5 MIN PRN, ondansetron Q6H PRN, ondansetron Q6H PRN, traMADol Q6H PRN Vital Signs: Last Filed Vital Signs: 24 Hour Range BP: 127/79 mmHg (08/16 799) Temp: 36.8 C (98.2 F) (08/16 799) Pulse: 65 (08/16 799) Respirations: 16 PER MINUTE (08/16 799) SpO2: 97 % (08/16 799) O2 Delivery: None (Room Air) (08/16 799) SpO2 Pulse: 69 (08/15 1300) BP: (106-143)/(57-81) Temp: [36.5 C (97.7 F)-37 C (98.6 F)] Pulse: [61-77] Respirations: [12 PER MINUTE-20 PER MINUTE] SpO2: [94 %-98 %] O2 Delivery: [-] Intensity Pain Scale 0-10 (Pain 1): (not recorded) Filed Vitals: 08/13/16 2100 08/15/16 0600 Weight: 72.5 kg (159 lb 13.3 oz) 72.7 kg (160 lb 4.4 oz) Intake/Output Summary: (Last 24 hours) Intake/Output Summary (Last 24 hours) at 08/16/16 1054 Last data filed at 08/16/16 0515 Gross per 24 hour Intake 360 ml Output 1500 ml Net -1140 ml Physical Exam: Constitutional: Appears well nourished, stated age and in no distress PSYCH: Normal behavior, goal directed thinking, normal speech HEENT: Normocephalic and atraumatic, mucous membranes moist CV: S1 S2 RRR, no murmurs, rubs, gallops. Radial pulses 2+ bilaterally and symme tric PULM: CTAB, no wheezes, rales, rhonchi, increased effort of breathing or diminis hed lung sounds ABD: Soft, NTTP, bowel sounds x 4, non-distended, no surgial scars EXT: No edema to LE bilaterally SKIN: warm and dry to touch Laboratory Review: 24-hour labs: Results for orders placed or performed during the hospital encounter of 08/13/16 (from the past 24 hour(s)) CBC Collection Time: 08/16/16 4:46 AM Result Value Ref Range White Blood Cells 5.7 4.5 - 11.0 K/UL RBC 3.84 (L) 4.4 - 5.5 M/UL Hemoglobin 11.7 (L) 13.5 - 16.5 GM/DL Hematocrit 35.2 (L) 40 - 50 % MCV 91.6 80 - 100 FL MCH 30.5 26 - 34 PG MCHC 33.3 32.0 - 36.0 G/DL RDW 13.2 11 - 15 % Platelet Count 280 150 - 400 K/UL MPV 8.0 7 - 11 FL BASIC METABOLIC PANEL Collection Time: 08/16/16 4:46 AM Result Value Ref Range Sodium 137 137 - 147 MMOL/L Potassium 4.5 3.5 - 5.1 MMOL/L Chloride 103 98 - 110 MMOL/L CO2 29 21 - 30 MMOL/L Anion Gap 5 3 - 12 Glucose 113 (H) 70 - 100 MG/DL Blood Urea Nitrogen 22 7 - 25 MG/DL Creatinine 1.10 0.4 - 1.24 MG/DL Calcium 9.2 8.5 - 10.6 MG/DL eGFR Non >60 >60 mL/min eGFR >60 >60 mL/min MAGNESIUM Collection Time: 08/16/16 4:46 AM Result Value Ref Range Magnesium 1.8 1.6 - 2.6 mg/dL Point of Care Testing: (Last 24 hours): Glucose: 113 (08/16/16 0446) Cardiographics: ECG: Sinus rhythm Echocardiogram: Normal left ventricular size and hyperdynamic systolic function. Estimated le ft ventricular ejection fraction is 70%. Prominent basal septal hypertrophy. There is evidence of systolic anterior motion of chordal structures of the mitral valve and LVOT obstruction. The worst area of obstruction appears to be mid cavity by 2D and color Doppler imaging. P eak LVOT gradient at rest 40 mmHg. No Valsalva maneuver or amyl nitrate testing was performed Normal right ventricular size and systolic function. Normal chamber dimensions. Mild aortic sclerosis without stenosis Pulmonary systolic pressure could not be accurately estimated due to lack of significant tricuspid regurgitant jet No pericardial effusion Other Radiology/Diagnostics Review: Pertinent radiology reviewed. Leah Stark MD Pager [phone] MARKER * Haritha Mcknight, RN - 08/16/2016 6:43 AM LAST MARKER No acute events overnight. Assessments completed and documented per flowsheet. Tele on, SR. VSS. A&Ox4. RA. Pt denied pain. R groin incision C/D/I. Adequate UOP. No BM. No other needs voiced at this time. Call light within reach, will continue to mo nitor until report given to oncoming RN. MARKER * Joan Weiner RN - 08/15/2016 5:01 PM LAST MARKER Assumed care at 1335. Assessment complete and documented per flowsheet. SR on tele. HR 60-70s. VSS per trend. AOx4. Puncture site C/D/I. No pain reported. Adequate UOP. +BM. Pt. UAL, call light within reach. No further orders at this time, will continue to monitor. MARKER * Ayo King MD - 08/15/2016 1:13 PM LAST MARKER Progress Note Name: Kaz Restrepo MRN: [id number] Admission Date: 08/13/2016 Admission Diagnosis: Unstable angina (HCC) [I20.0] LOS: 2 days Active Problems: Unstable angina (HCC) Assessment/Plan: Mr. Restrepo is a 56 yo male with HTN, HLD, GERD, CAD s/p PCI 07/2016 who was recent ly received LHC at [facility] 08/09/16 with plan for staged PCI and is admitted for rec urrent chest pain, and will likely require staged PCI during this hospitalizatio n. # Unstable Angina S/p PCI 08/09/16 to RCA with known OM disease, plan for staged PCI Presented with recurrent chest pain Trops peaked at 0.07. It is trending down to 0.06 & 0.03/ Cardiac Cath Report: ASSESSMENT: 1. Severe coronary artery disease manifest by the following:. a. Chronic total occlusion in the mid right coronary artery status post successf ul PCI with a 2.5 x 38 and 3.0 x 38 Xience drug-eluting stent from distal to pro ximal. 2. 80% to 90% proximal 1st obtuse marginal stenosis. 3. 50% to 60% diffuse mid intermediate ramus stenosis. 4. Normal left ventricular end-diastolic pressures We will continue aspirin 81 mg daily for the indefinite future as well as Plavix preferably for 12 months post intervention and we will stage the intervention o f the obtuse marginal segment. Plan: > Stopped IV Heparin Today > We still need to obtain echo. > We will manage this a single vessel disease. Continue Statin, ASA, plavix. We also have added on 60 mg of Imdur as well. > If the Imdur is ineffective, we will consider Ranolazine 500 mg BID # CAD S/p PCI 08/09/16 to [place] [facility] SAWYER of RCA, with known OM disease 07/2016 OSH ECHO with EF 60% >Continue CLEARANCE REPRESENTATIVE aspirin,plavix, statin,coreg,lisinopril and norvasc # HTN / HLD >CLEARANCE REPRESENTATIVE Amlodipine, Lisinopril >Atorvastatin 40mg # GERD >Protonix # Tobacco Use >Cessation counseling FEN: -IVF: None,Replace prn, NPO PPx: Hep gtt Dispo: Admit to CV 1. Transfer to the floors Code Status: Full Patient seen and discussed with Dr. Christine Kraft DO Department of Internal Medicine [phone] Subjective: Kaz Restrepo is a 56 y.o. male. No acute overnight events reported. Mr. Restrepo was seen and examined. He still has chest discomfort in chest. It is 1 /10. Pain does not radiate anywhere else. Diet, movemention, and respiration do es affect the pain. He describes it as pressure on sternal region. Otherwise, no fever, chills, N/V/D. Objective: Vital Signs: Last Filed Vital Signs: 24 Jessie r Range BP: 133/67 mmHg (08/15 1145) Temp: 36.7 C (98 F) (08/15 1145) Pulse: 66 (08/15 1300) Respirations: 12 PER MINUTE (08/15 1145) SpO2: 94 % (08/15 1300) O2 Delivery: None (Room Air) (08/15 1145) SpO2 Pulse: 69 (08/15 1300) BP: (112-170)/(59-95) Temp: [36.4 C (97.5 F)-36.9 C (98.5 F)] Pulse: [53-74] Respirations: [12 PER MINUTE-23 PER MINUTE] SpO2: [82 %-100 %] O2 Delivery: [-] Intake/Output Summary (Last 24 hours) at 08/15/16 1313 Last data filed at 08/15/16 1200 Gross per 24 hour Intake 1167.03 ml Output 800 ml Net 367.03 ml PHYSICAL EXAMINATION: General Appearance: Alert, cooperative, no distress. Head: Normocephalic, without obvious abnormality, atraumatic Neck: no JVD; no lymphadenopathy Eyes: Conjunctivae/corneas clear. PERRL, EOMs intact. Lungs: Clear breath sounds bilaterally. Chest: touching the chest did not re-elicit the chest pain. Heart: Regular rate and rhythm, S1, S2 normal, no murmur, rub, or gallop Abdomen: Soft, non-tender. Bowel sounds normal. No masses. No organomegaly. Extremities: Atraumatic, no cyanosis, no edema. Pulses: +2 pulse in both extremities. Neurologic: CNII - XII grossly intact; no gross focal deficits LABS: Recent Labs 08/13/16220608/14/163 08/15/16 0544 NA -- 138 136* K -- 4.0 4.7 CL -- 106 104 CO2 -- GAP -- 7 6 BUN -- 22 20 CR -- 1.07 1.06 GLU -- 101* 105* CA -- 9.1 9.2 MG 1.8 2.0 2.1 PO4 3.6 -- -- Recent Labs 08/13/16220608/14/16 0030 08/14/16 0433 08/14/16 1155 08/14/16 1850 08/15/16 0544 WBC 6.2 -- 4.8 -- -- 6.2 HGB 11.5* -- 11.6* -- -- 12.0* HCT 35.0* -- 33.7* -- -- 34.4* PLTCT 294 -- 283 -- -- 295 INR 1.0 -- -- -- -- -- PTT 27.8 -- 38.0 39.9 -- 65.1* TNI 0.06* 0.07* 0.06* -- 0.03 -- Estimated Creatinine Clearance: 81 mL/min (based on Cr of 1.06). Filed Vitals: 08/13/16 2100 08/15/16 0600 Weight: 72.5 kg (159 lb 13.3 oz) 72.7 kg (160 lb 4.4 oz) No results for input(s): PHART, PO2ART in the last 72 hours. Invalid input(s): PC02A MEDS amLODIPine 10 mg Oral QDAY aspirin EC 81 mg Oral QDAY atorvastatin 40 mg Oral QHS carvedilol 6.25 mg Oral BID w/meals clopiDOGrel 75 mg Oral QDAY enoxaparin 40 mg Subcutaneous QDAY isosorbide mononitrate SR 60 mg Oral QDAY lisinopril 20 mg Oral QDAY pantoprazole DR 40 mg Oral QDAY IV MEDS Prnacetaminophen Q6H PRN, aluminum/magnesium hydroxide Q4H PRN, diphe nhydrAMINE Q4H PRN OR diphenhydrAMINE Q4H PRN, docusate QDAY PRN, nitroglyce rin Q5 MIN PRN, ondansetron Q6H PRN, ondansetron Q6H PRN, traMADol Q6H PRN Mahnaz Kraft DO PGY1 [facility] PAGER [phone] Staff: I have personally interviewed and examined the patient with the resident. I have reviewed all pertinent labs and x-rays. The medication list has been reviewed. I personally performed the bustamante portions of the E/M visit, discussed case with re sident and concur with resident documentation of history, physical exam, assessm ent, and treatment plan unless otherwise noted. Please see other note as well. MARKER * Claudette Mcdonald RN - 08/15/2016 12:12 PM LAST MARKER Called to give report to ADITYA Green. Patient to go to [facility]. Room currently in p rocess. 1330 - Patient transferred to CTP 25 with belongings. NAD, VSS at time of transf er. MARKER * Ayo King MD - 08/15/2016 11:43 AM LAST MARKER 56 yr old male with h/o CAD s/p recent stenting of RCA (C[place] SLABS SAWYER), HTN, HLD. He was p lanned to have staged PCI of 80-90% proximal OM, was having pressure type CP sin ce discharge -01/27, worse yesterday and went to local hosp and was transferred to for PCI. Pain decreased by IV Nitro and is on Heparin CAD/CP: - Cath- RCA stent is patent. LCx/OM severe stenosis but small artery- no stentin g - medical management - Add Imdur 60 mg daily - Start PPI - Continue other meds - Echo in am. Transfer to tele. Advised strongly to quit smoking MARKER * Yary Hayes RN - 08/14/2016 8:39 PM LAST MARKER 1999-Notified Dr. Lundy of CT of chest being ordered. Clarified if CT needs to b e done now or once pt off bedrest from sheath pull. Ok to take once off bedrest. 2032-Clarified with Dr. Walton of CT of chest being ordered. Clarified if CT needs to be done now or once pt off bedrest from sheath pull. Ok to take once o ff bedrest. Ok to restart heparin gtt 6 hours post hemostasis MARKER * Ayo King MD - 08/14/2016 7:01 AM LAST MARKER General Progress Note Name: Kaz Restrepo Today's Date: 08/14/2016 Admission Date: 08/13/2016 LOS: 1 day Assessment/Plan: Active Problems: Unstable angina (HCC) Mr. Restrepo is a 56 yo male with HTN, HLD, GERD, CAD s/p PCI 07/2016 who was recent ly received LHC at [facility] 08/09/16 with plan for staged PCI and is admitted for rec urrent chest pain, and will likely require staged PCI during this hospitalizatio n. Unstable Angina S/p PCI 08/09/16 to RCA with known OM disease, plan for staged PCI Presented with recurrent chest pain Trops peaked at 0.07 EKG neg for ischemic changes >Staged PCI of OM 08/16/16 - Consider PCI today if chest pain worsens >Continue Hep gtt, nitro gtt CAD S/p PCI 08/09/16 to [place] [facility]S SAWYER of RCA, with known OM disease 07/2016 OSH ECHO with EF 60% >Continue CLEARANCE REPRESENTATIVE aspirin,plavix, statin,coreg,lisinopril and norvasc HTN / HLD >CLEARANCE REPRESENTATIVE Amlodipine, Lisinopril >Atorvastatin 40mg GERD >Protonix Tobacco Use >Cessation counseling FEN: -IVF: None,Replace prn, NPO PPx: Hep gtt Dispo: Admit to CV 1 Code Status: Full Patient seen and discussed with Dr. King Subjective Kaz Restrepo is a 56 y.o. male. Patient doing ok this morning but still complai ns of headache and slight pain/discomfort in his chest 06/29. Despite hep gtt and small amount of nitro gtt. We will have to consider cath today if pain worsens. No f/c/n/v/d/c Medications Scheduled Meds: amLODIPine (NORVASC) tablet 10 mg 10 mg Oral QDAY aspirin EC tablet 81 mg 81 mg Oral QDAY atorvastatin (LIPITOR) tablet 40 mg 40 mg Oral QHS carvedilol (COREG) tablet 6.25 mg 6.25 mg Oral BID w/meals clopiDOGrel (PLAVIX) tablet 75 mg 75 mg Oral QDAY heparin (porcine) BOLUS for continuous inf (bag) 1,450-2,900 Units 20-40 Units/k g Intravenous As Prescribed lisinopril (PRINIVIL; ZESTRIL) tablet 20 mg 20 mg Oral QDAY pantoprazole DR (PROTONIX) tablet 40 mg 40 mg Oral QDAY Continuous Infusions: heparin (porcine) 20,000 units/D5W 500 mL infusion (std conc)(premade) 1,000 Units/hr (08/14/16 0542) nitroGLYCERIN 50 mg/D5W 250 mL infusion 0.1 mcg/kg/min (08/13/16 2250) PRN and Respiratory Meds:acetaminophen Q6H PRN, docusate QDAY PRN, nitroglycerin Q5 MIN PRN, ondansetron Q6H PRN Objective Vital Signs: Last Filed Vital Signs: 24 Jessie r Range BP: 122/64 mmHg (08/14 0500) Temp: 36.5 C (97.7 F) (08/14 0400) Pulse: 58 (08/14 599) Respirations: 16 PER MINUTE (08/13 2199) SpO2: 99 % (08/14 599) O2 Delivery: None (Room Air) (08/14 599) SpO2 Pulse: 58 (08/14 599) Height: 175.3 cm (69") (08/13 2099) BP: (115-146)/(55-97) Temp: [36.5 C (97.7 F)-36.7 C (98 F)] Pulse: [57-80] Respirations: [12 PER MINUTE-19 PER MINUTE] SpO2: [96 %-99 %] O2 Delivery: [-] Intensity Pain Scale 0-10 (Pain 1): 2 (08/14/16 06) Filed Vitals: 08/13/162099 Weight: 72.5 kg (159 lb 13.3 oz) Intake/Output Summary: (Last 24 hours) Intake/Output Summary (Last 24 hours) at 08/14/16 0702 Last data filed at 08/14/16 0500 Gross per 24 hour Intake 529.35 ml Output 300 ml Net 229.35 ml Physical Exam General: Alert, cooperative, no distress Head: No obvious abnormality, atraumatic Eyes: Conjunctivae/corneas clear. PERRL, EOMs intact. Throat: Lips and mucosa normal. Teeth and gums normal Neck: Supple, nontender Lungs: Clear breath sounds bilaterally. No crackles or wheezes Heart: RRR; S1, S2 normal; No M/R/G Abdomen: Soft, non-tender. Bowel sounds normal. No masses. No organomegaly. Extremities: Extremities normal, atraumatic, no cyanosis or edema Pulses: 2+ and symmetric in upper and lower extremities Skin: No rashes or lesions Neurologic: No gross neurologic deficits. Lab Review 24-hour labs: Results for orders placed or performed during the hospital encounter of 08/13/16 (from the past 24 hour(s)) CBC Collection Time: 08/13/16 10:07 PM Result Value Ref Range White Blood Cells 6.2 4.5 - 11.0 K/UL RBC 3.77 (L) 4.4 - 5.5 M/UL Hemoglobin 11.5 (L) 13.5 - 16.5 GM/DL Hematocrit 35.0 (L) 40 - 50 % MCV 92.7 80 - 100 FL MCH 30.4 26 - 34 PG MCHC 32.8 32.0 - 36.0 G/DL RDW 13.0 11 - 15 % Platelet Count 294 150 - 400 K/UL MPV 8.2 7 - 11 FL PTT (APTT) Collection Time: 08/13/16 10:07 PM Result Value Ref Range APTT 27.8 24.0 - 40.0 SEC BNP (B-TYPE NATRIURETIC PEPTI) Collection Time: 08/13/16 10:07 PM Result Value Ref Range B Type Natriuretic Peptide 22.0 0 - 100 PG/ML MAGNESIUM Collection Time: 08/13/16 10:07 PM Result Value Ref Range Magnesium 1.8 1.6 - 2.6 mg/dL PHOSPHORUS Collection Time: 08/13/16 10:07 PM Result Value Ref Range Phosphorus 3.6 2.0 - 4.0 MG/DL PROTIME INR (PT) Collection Time: 08/13/16 10:07 PM Result Value Ref Range INR 1.0 0.8 - 1.2 TROPONIN-I Collection Time: 08/13/16 10:07 PM Result Value Ref Range Troponin-I 0.06 (H) 0.0 - 0.05 NG/ML TROPONIN-I Collection Time: 08/14/16 12:30 AM Result Value Ref Range Troponin-I 0.07 (H) 0.0 - 0.05 NG/ML CBC Collection Time: 08/14/16 4:33 AM Result Value Ref Range White Blood Cells 4.8 4.5 - 11.0 K/UL RBC 3.75 (L) 4.4 - 5.5 M/UL Hemoglobin 11.6 (L) 13.5 - 16.5 GM/DL Hematocrit 33.7 (L) 40 - 50 % MCV 89.8 80 - 100 FL MCH 30.8 26 - 34 PG MCHC 34.3 32.0 - 36.0 G/DL RDW 12.8 11 - 15 % Platelet Count 283 150 - 400 K/UL MPV 8.2 7 - 11 FL BASIC METABOLIC PANEL Collection Time: 08/14/16 4:33 AM Result Value Ref Range Sodium 138 137 - 147 MMOL/L Potassium 4.0 3.5 - 5.1 MMOL/L Chloride 106 98 - 110 MMOL/L CO2 25 21 - 30 MMOL/L Anion Gap 7 3 - 12 Glucose 101 (H) 70 - 100 MG/DL Blood Urea Nitrogen 22 7 - 25 MG/DL Creatinine 1.07 0.4 - 1.24 MG/DL Calcium 9.1 8.5 - 10.6 MG/DL eGFR Non >60 >60 mL/min eGFR >60 >60 mL/min MAGNESIUM Collection Time: 08/14/16 4:33 AM Result Value Ref Range Magnesium 2.0 1.6 - 2.6 mg/dL TROPONIN-I Collection Time: 08/14/16 4:33 AM Result Value Ref Range Troponin-I 0.06 (H) 0.0 - 0.05 NG/ML PTT (APTT) Collection Time: 08/14/16 4:33 AM Result Value Ref Range APTT 38.0 24.0 - 40.0 SEC Point of Care Testing (Last 24 hours) Glucose: 101 (08/14/16 0433) Radiology and other Diagnostics Review: Pertinent radiology reviewed. Rashid Marin DO Pager [phone] Staff: I have personally interviewed and examined the patient with the resident. I have reviewed all pertinent labs and x-rays. The medication list has been reviewed. I personally performed the bustamante portions of the E/M visit, discussed case with re sident and concur with resident documentation of history, physical exam, assessm ent, and treatment plan unless otherwise noted. Please see other note as well. MARKER * Yary Hayes, RN - 08/13/2016 9:02 PM LAST MARKER 2055-Pt arrived via transport. Pt belongings with pt. Pt awake and alert. VS sta ble 2100-Dr. Pamulapati at bedside to assess pt 0150-Dr. Lundy notified of troponin of 0.06 and now 0.07. Orders received 0600-Notified Dr. Walton of pt would like something more than tylenol for pa in to relieve his headache. Continue to monitor. MARKER documented in this encounter H&P Notes * Ayo King MD - 08/13/2016 9:29 PM LAST MARKER CARDIOLOGY H&P CC: Chest pain/heaviness History of Present Illness Kaz Restrepo is a 56 y.o. male who was admitted 08/13/2016 for staged PCI, in the setting of persistent chest pain. He has a PMH sig for CAD s/p PCI to RCA and r esidual obstructive disease in OM and moderate non obstructive CAD in Ramus. He underwent a cardiac catheterization back on July 29, 2016 at OSH and was fou nd to have a chronic total occlusion of the right coronary artery and a high-gra de lesion of the circumflex. The mid segment of the left anterior descending a rtery had a moderate lesion of about 60%. He had an echocardiogram at the time demonstrating an ejection fraction of 60%. He underwent a successful PCI to RCA [place] [facility] SAWYER on 08/09/16 with a plan for staged PCI o f OM1 in 2 weeks. He was discharged home on 08/10 and felt ok for a day or so and then started to have chest pressure/heaviness and was readmitted to [facility] in [place], [place] on 08/12 and despite medical treatment there, he continued to h ave chest pain and was transferred here. Of, note he has had chest pain since 2014 on and off which got worse prior to di [facility] in 07/2016. He continues to smoke little less than a pack per day an d has done so for the past 32 years. Today, he C/o chest pain in the substernal region and his left chest and denies any radiation. He is not able to do much activity. He has continuous chest pain at rest, and rates it at 3/10 currently. Denies shortness of breath or any other complaints at this time. Most recent 2D ECHO performed Echo per report from OSH - Normal LV function, questionable healed vegetation of aortic valve with normal function Most recent left heart catheterization performed 08/10/2016 1. Severe coronary artery disease manifest by the following:. a. Chronic total occlusion in the mid right coronary artery status post successf ul PCI with a 2.5 x 38 and 3.0 x 38 Xience drug-eluting stent from distal to pro ximal. 2. 80% to 90% proximal 1st obtuse marginal stenosis. 3. 50% to 60% diffuse mid intermediate ramus stenosis. 4. Normal left ventricular end-diastolic pressures. 12 lead EKG this visit NSR at 63 bpm Telemetry findings NSR on outside tele strips Assessment & Recs Kaz Restrepo is a 56 y.o. patient with the following problems: Active Problems: Unstable angina (HCC) CAD s/p PCI to RCA, with known OM disease Hypertension Hyperlipidemia Tobacco abuse GERD Plan: --> Reviewed ecgs and labs from OSH, troponin wnl and no new ischemic changes on ecg -->Start heparin gtt and nitro gtt --> Continue CLEARANCE REPRESENTATIVE aspirin,plavix, statin,coreg,lisinopril and norvasc -->Continue protonix daily -->Repeat ecg in am, Check troponin x1 -->Plan for staged PCI of OM per interventional team Thank you for allowing us to participate in the care of this patient. Discussed with who agrees with plan above. Tanvir Walton M.D. Fellow in Cardiovascular Diseases Beeper # [phone] Home Medications Prescriptions prior to admission Medication Sig amLODIPine (NORVASC) 10 mg tablet Take 10 mg by mouth daily. aspirin EC 81 mg tablet Take 81 mg by mouth daily. Take with food. atorvastatin (LIPITOR) 40 mg tablet Take 1 Tab by mouth at bedtime daily. carvedilol (COREG) 12.5 mg tablet Take 6.25 mg by mouth twice daily with carlos ls. Take with food. clopiDOGrel (PLAVIX) 75 mg tablet Take 1 Tab by mouth daily. DOCOSAHEXANOIC ACID/EPA (FISH OIL PO) Take 1,000 mg by mouth twice daily. lisinopril (PRINIVIL; ZESTRIL) 20 mg tablet Take 20 mg by mouth daily. nitroglycerin (NITROSTAT) 0.[address] 1 Tab under tongue every 5 min utes as needed for Chest Pain. Max of 3 tablets, call 911. pantoprazole DR (PROTONIX) 40 mg tablet Take 40 mg by mouth daily. Current Medications Scheduled Meds: heparin (porcine) BOLUS for continuous inf (bag) 1,450-2,900 Units 20-40 Units/k g Intravenous As Prescribed heparin (porcine) BOLUS for continuous inf (bag) 4,000 Units 4,000 Units Intrave nous ONCE Continuous Infusions: heparin (porcine) 20,000 units/D5W 500 mL infusion (std conc)(premade) nitroGLYCERIN 50 mg/D5W 250 mL infusion PRN and Respiratory Meds: Allergies Allergies Allergen Reactions Pcn [Penicillins] EDEMA Past Medical History Past Medical History Diagnosis Date Coronary artery disease 08/09/2016 Hypertension 08/09/2016 Hyperlipidemia 08/09/2016 GERD (gastroesophageal reflux disease) 08/09/2016 History of noncompliance with medical treatment 08/09/2016 Chest pain 08/09/2016 Tobacco abuse 08/09/2016 Elevated liver function tests History of methamphetamine abuse + UDS 09/2015 - pt denies drug use Past Surgical History Past Surgical History Procedure Laterality Date Hiatal hernia repair Social History Social History Social History Marital Status: Single Spouse Name: N/A Number of Children: N/A Years of Education: N/A Occupational History Not on file. Social History Main Topics Smoking status: Current Every Day Smoker Types: Cigarettes Smokeless tobacco: Not on file Alcohol Use: 0.0 oz/week 0 Standard drinks or equivalent per week Drug Use: No Comment: pt denies drug use but he had a + UDS for amphetamines and methamphe tamines in 10/03 Sexual Activity: Not on file Other Topics Concern Not on file Social History Narrative Family History Family History Problem Relation Age of Onset COPD Sister Hyperlipidemia Mother Hypertension Mother Arthritis Mother Review of Systems 10 point ROS completed and negative except as noted per HPI. Vital Signs: Most Recent Vital Signs: 24 Ho ur Range BP: 144/92 mmHg (08/13 2099) Temp: 36.6 C (97.8 F) (08/13 2099) Pulse: 61 (08/13 2099) Respirations: 19 PER MINUTE (08/13 2099) SpO2: 98 % (08/13 2099) SpO2 Pulse: 59 (08/13 2099) Height: 175.3 cm (5' 9") (08/13 2099) BP: (140-144)/(91-97) Temp: [36.6 C (97.8 F)] Pulse: [61-62] Respirations: [12 PER MINUTE-19 PER MINUTE] SpO2: [98 %] O2 Delivery: [-] Filed Vitals: 08/13/16 2100 Weight: 72.5 kg (159 lb 13.3 oz) No intake or output data in the 24 hours ending 08/13/16 2147 Physical Exam General Appearance: normal built, no acute distress Skin: warm, dry Eyes: conjunctivae and lids normal, pupils are equal and round Neck Veins: normal JVP , neck veins are not distended Cardiovascular system: Pulse 64/min, regular rhythm ,no palpable thrills/heaves, S1 S2 heard, no murmurs, no rub, no carotid bruit. Pedal Pulses: Symmetric pedal pulses + Respiratory system: No acute distress No use of accessory muscles Normal vesicular breath sounds over all the lung belcher bilaterally No added sounds Abdominal Exam: soft, non-tender Neurologic Exam: alert and oriented x 3, neurological assessment grossly intact Lab/Radiology/Other Diagnostic Tests: 24-hour labs: No results found for this visit on 08/13/16 (from the past 24 jessie r(s)). Staff: I have personally interviewed and examined the patient with the resident. I have reviewed all pertinent labs and x-rays. The medication list has been reviewed. I personally performed the bustamante portions of the E/M visit, discussed case with re raulnt and concur with resident documentation of history, physical exam, assessm ent, and treatment plan unless otherwise noted. 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 He was p lanned to have staged PCI of 80-90% proximal OM, was having pressure type CP sin ce discharge 4-01/27, worse yesterday and went to local hosp and was transferred to for PCI. Pain decreased by IV Nitro and is on Heparin CAD/CP: - CP concerning for angina.ECG- no acute abn - Considering CP, will plan cath today. He ate heavy breakfast this am, will say t till afternoon to have cath. D/w IS service - Continue ASA/ Coreg, Lipitor, amlodipine - Echo to assess LV function MARKER documented in this encounter Procedure Notes * Melisa Ortiz MD - 08/14/2016 3:57 PM LAST MARKER Associated Order(s): CARDIAC CATH REPORT [facility] CARDIAC CATHETERIZATION REPORT Page 3 KAZ Diaz : 1960 #: [id number] JESSICA MR #/Billing ID #: [id number] / [id number] DATE: 08/14/2016 DORMITORY MAID: Melisa Ortiz MD DICTATING PROVIDER: Melisa Ortiz MD REFERRING PHYSICIAN: SILVER RABAGO PROCEDURES PERFORMED: 1. Selective coronary angiography. 2. Left heart catheterization. BRIEF CLINICAL HISTORY: Mr. Restrepo is a pleasant gentleman who unfortunately is a current smoker. He has significant CAD and underwent revascularization and lo ng segment stenting of a completely occluded dominant RCA just [address] Simms. The patient was sent home, but returned with ongoing incessant chest di scomfort of a mild to moderate degree. He said that he was good for about 18 ho urs or so at home, and his color of the face returned after the procedure and he felt really good, but within a day he started having the same kind of chest tig htness and discomfort again. He went to a local hospital in [place], [place]. He was put on IV nitroglycerin and heparin without much relief. He was transf erred here and has continued to have discomfort without relief. The troponin wa s 0.07 at admission, coming down to 0.06. This may reflect a prior injury durin g the complex PCI just 5 days ago, and we are catching the tail end of it. No s ignificant EKG changes were noted. He was recommended for cardiac catheterizati on. INFORMED CONSENT: I discussed the risks, benefits, and alternatives to the proc edure at length with the patient and spouse. I discussed with them that his RCA stents would likely be patent because the EKG did not show any evidence of an R CA infarction. We did discuss his known anatomy of moderate disease in the mag s and diagonal and severe stenosis of the distal circ/distal obtuse marginal whi ch was a small vessel. PROCEDURAL DETAILS: 1. The patient was brought into the cardiac catheterization laboratory and prepp ed and draped in a sterile fashion. 2. 1% lidocaine was used to instill local anesthesia in the right groin. It had no hematoma. It was slightly tender from the recent cardiac catheterization. Once the lidocaine was given, access was easily obtained with a micropuncture ne edle and a 5-Sammarinese short sheath was advanced. A Storq wire was used, because t here was some difficulty advancing the wire at a focal calcification level in th e iliac artery. However, the Storq wire, advanced very easily. 3. All catheter exchanges were then done over the wire. 4. Using standard JL4 catheters, selective imaging of the left and right coronar y arteries was obtained to fully define coronary anatomy. 5. An angled pigtail catheter was crossed into the left ventricular cavity. Lef t heart pressures were recorded. A pullback gradient across the aortic valve wa s also performed. LV angiography was not performed. 6. At the end of the case, the sheath was kept in place and the patient was salazar sferred out of research laboratory technician in stable condition. TOTAL CONTRAST USED: 60 mL. TOTAL RADIATION DOSE: 649 mGy of air kerma. DIAGNOSTIC ANGIOGRAPHY: 1. Left main coronary artery: The left main coronary artery has no significant angiographic stenosis. It is widely patent. It divides into an LAD and a circu mflex branch. 2. Left anterior descending artery: The LAD is a large vessel that does reach t he apex and wraps around it. The LAD has mild to moderate plaquing throughout i ts course, without any focal area of significant stenosis. The LAD does wrap ar ound the apex to supply a significant portion of the inferior apex. The diagona l branch arises from the mid LAD. It is a large-size diagonal branch with moder ate diffuse disease in the proximal to midportion of about 60%, without an area of focal stenosis. 3. Circumflex artery: The circumflex is a medium-size vessel arising normally f rom the left main coronary artery. Very early in its course, it gives rise to a very large 1st obtuse marginal branch that is almost like a ramus intermedius. In its proximal portion, there is about a 60% stenosis that is followed by sign ificant tortuosity but no critical stenosis. There is CHRYSTAL-3 flow. The distal circumflex artery continues into a small obtuse marginal branch that has a 90% f ocal stenosis but CHRYSTAL-3 flow. This is unchanged from before. Right after the bifurcation of this large obtuse marginal branch or high ramus branch, the circ itself has a 70% stenosis. This is also unchanged from before. 4. Right coronary artery: The RCA has a long segment of stents going from the p roximal portion to the distal portion before the bifurcation. The stents are wi paula patent, without any abnormality. In the mid/distal RCA, there is an area o f stent malposition from positive remodeling of the artery, likely from the entr y dissection plane. Distally, the RCA divides into a large PLV and a large PDA. The PDA has no significant stenosis. The PLV has a 50% stenosis, unchanged fr om before. LEFT VENTRICULAR HEMODYNAMICS: LV systolic pressure measures 150 mmHg. End-airam stolic pressure is low to normal at 10 mmHg. There is no pullback gradient acro ss the aortic valve. FINAL IMPRESSION: 1. The patient has unchanged coronary artery anatomy, manifested by a widely pat ent stented portion of the RCA which was completely occluded before that interve ntion 5 days ago. There is malposition of stents in the mid/distal RCA from pos itive remodeling, likely in a dissection plane site during the complex CORK SLABS SAWYER. At this point, I would recommend conservative management for this area, rather than ballooning it, as very likely this may thrombose and heal off without affecting the stents. 2. The patient's distal circumflex artery indeed has a 90% stenosis, but it is a very small vessel supplying a very small amount of myocardium. The patient's d iscomfort is incessant, going on for 3 days, and is unchanged even after the PCI of the RCA, as his pain was similar. I discussed this with Dr. Simms, the critical access hospital's primary engineering test mechanic, today, who reviewed the images and agrees that we sh ould continue medical management rather than intervention at this point, as ther e is no significant mortality benefit from intervention of this, and the constan t unrelenting pain is unlikely from this. 3. The high obtuse marginal/ramus and the diagonal have moderate disease, likely because of rest pain, and recommend medical management. 4. Aggressive smoking cessation recommendations are being made. Melisa Ortiz MD KG/Patrick /[id number] p cc: - SILVER RABAGO MARKER documented in this encounter Miscellaneous Notes * Care Plan - Joan Weiner RN - 08/16/2016 4:48 PM LAST MARKER Problem: Discharge Planning Goal: Participation in plan of care Outcome: Goal Achieved Date Met: 08/16/16 IV and tele removed, DC orders gone over with patient, no questions MARKER * Case Mgmt DC Plan - Elisabeth Garza RN - 08/16/2016 4:40 PM LAST MARKER Case Management Progress Note NAME:Kaz Restrepo :[birth year] AGE: 56 y.o. ADMISSION DATE: 08/13/2016 DAYS ADMITTED: LOS: 3 days Todays Date: 08/16/2016 Plan Plan to DC home tomorrow Pt's SO at bedside, will provide transportation home. Pt is not uninsured, RNCM provided pt with [employer] coupons, explained to pt and spouse that coupons may provide some discount however it is subject to change th [employer] the [employer]. Both pt and spouse verbalized understanding. Pt plans to fill his plavix at [facility], he is aware of the importance of his medications and need for compliance. Pt inquiring if he can go out on omeprazole - resident updated. No further needs identified at this time. Interventions ? Support ? Info or Referral ? Discharge Planning ? Medication Needs ? Financial ? Legal ? Other Disposition ? Discharge Preparation When ready for discharge, who will be responsible for transporting?: Significant other Type of Residence: Private residence Patient expects to be discharged to: Private residence Was the patient receiving home care services?: No ? Expected Discharge Expected Discharge Date: 08/16/16 ? Discharge Disposition ? Next Level Care Elisabeth Garza RN, BSN Cardiology Nurse Power Saw Mechanic pager: [phone] MARKER * Care Plan - Joan Weiner RN - 08/15/2016 3:35 PM LAST MARKER Problem: Discharge Planning Goal: Participation in plan of care Outcome: Goal Ongoing POC reviewed with patient, no questions at this time Problem: Pain Goal: Management of pain Outcome: Goal Ongoing Pain controlled Problem: Respiratory Impairment (Non-Ventilated Patient) Goal: Effective gas exchange Outcome: Goal Ongoing Tolerating RA MARKER * Care Plan - Claudette Mcdonald RN - 08/15/2016 9:32 AM LAST MARKER Problem: Discharge Planning Goal: Participation in plan of care Outcome: Goal Ongoing Patient actively participated in care planning/decision making. Goal: Knowledge regarding plan of care Outcome: Goal Ongoing Discussed plan of care with patient. Goal: Prepared for discharge Outcome: Goal Ongoing Tele status per MD orders. Problem: Pain Goal: Management of pain Outcome: Goal Ongoing Patient reported constant chest pressure rated at a 1 out of 10, desired no inte rvention so far this shift. MDs aware. Goal: Knowledge of pain management Outcome: Goal Ongoing Discussed pain management options. Problem: Respiratory Impairment (Non-Ventilated Patient) Goal: Effective gas exchange Outcome: Goal Ongoing Oxygen saturation > 92% on room air so far this shift. Per night RN, desat to 82% overnight when sleeping, resolved with 2L nasal cannula. Goal: Effective breathing pattern Outcome: Goal Ongoing Even, unlabored. Goal: Patent airway Outcome: Goal Achieved Date Met: 08/15/16 No signs/symptoms of airway compromise. Problem: Skin Integrity Goal: Skin integrity intact Outcome: Goal Achieved Date Met: 08/15/16 Encouraged regular repositioning, adequate nutrition, skin kept clean and dry, d aily CHG baths. Problem: Tobacco Use Goal: Knowledge of tobacco-use cessation methods Outcome: Goal Ongoing Materials at bedside. MARKER * Care Plan - Yary Hayes RN - 08/15/2016 4:32 AM LAST MARKER Problem: Discharge Planning Goal: Participation in plan of care Outcome: Goal Ongoing Discharge pending, asks questions appropriately Problem: Pain Goal: Management of pain Outcome: Goal Ongoing Encourage to speak up, pain meds per MD order, hourly rounding Problem: Skin Integrity Goal: Skin integrity intact Outcome: Goal Ongoing Encourage activity MARKER * Case Mgmt DC Plan - Gilma Lawrence - 08/14/2016 10:44 AM LAST MARKER Case Management Admission Assessment NAME:Kaz Restrepo : 2 AGE: 56 y.o. ADMISSION DATE: 08/13/2016 DAYS ADMITTED: LOS: 1 day Todays Date: 08/14/2016 Source of Information: This NCM assisting primary NCM, Elisabeth Garza ([phone]), in c ompleting initial NCM Assessment. This NCM met with pt at bedside. Introduced self and role. Pt's significant other, Yanelis, at bedside. This NCM received p ermission from the pt to discuss DC planning in front of pt's visitor. Pt resti brayan in bed. Able to answer all questions. Per H&P, "56 y.o. male who was admitted 08/13/2016 for staged PCI, in the setting of persistent chest pain." Plan Plan: CM Assessment, Assist PRN with SW/NCM Services, Discharge Planning for Tuyet rasheed Anticipated Pt lives in a private home in [place], [place] with his significant other, Yanelis lassiter. There are 4-5 steps to enter the home. Once inside, pt can complete all ADLs on one level of the home. Pt is independent with ADLs. Currently unemplo yu. Pt is able to drive, however, his significant other, Yanelis, will drive hi m home on DC. Pt's PCP is Dr. Silver Rabago. Pt last saw Dr. Rabago last Tuesday. Pt a lso follows with Dr. Tashia Harper, Director Of Education in [place], [place]. Pt has a cane and walker that he does not use. 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 Pt has never stayed in a SNF / LTACH / IPR / NH. Pt has never had home IV or enteral infusions in the past. Pt confirms that he is uninsured. Pt reports that he fills his prescriptions a t the [facility] in [place], [place]. Pt reports that he pays OOP for his me dications. Pt reports he tries to stay on the $4.99 list. Pt may need assistan ce with medications on DC. Discharge Plan: Plans for pt to return home with self care and assistance from his significant other, Yanelis Gillespie. Pt may need assistance with medications o n discharge. Primary NCM / SW will continue to assess. Pt's S.O.Yanelis wil l drive the pt home on DC. Primary NCM, Elisabeth Garza ([phone]), will continue to herman wells for DC Planning. Emergency Contact Extended Emergency Contact Information Primary Emergency Contact: Kirti Restrepo [facility] Relation: Mother Secondary Emergency Contact: Yanelis Gillespie [facility] Mobile Relation: Significant Other DPOA Transportation Does the patient need discharge transport arranged?: No Transportation #1: Name: Yanelis Gillespie Transportation #1: Phone #: [phone] Transportation #1: Availability for transport (times): anytime Does the patient use Medicaid Transportation?: No Expected Discharge Expected Discharge Date: 08/16/16 Living Situation Prior to Admission ? Living Arrangements Type of Residence: Home, independent Living Arrangements: Spouse/significant other Bathroom Shower / Tub: Walk-in Shower Bathroom Toilet: Standard How many levels in the residence?: 1 (4-5 step entry) Can patient live on one level if needed?: Yes Support Systems: Spouse/Partner Assistance Needed: No Home Care Services: No ? Level of Function Prior level of function: Independent ? Cognitive Abilities Cognitive Abilities: Alert and Oriented, Engages in problem solving and planning , Participates in decision making, Recognizes impact of health condition on life style, Understands nature of health condition Financial Resources ? Coverage Primary Insurance: No insurance Secondary Insurance: No insurance Additional Coverage: None Pt confirms that he is uninsured. Pt reports that he fills his prescriptions a t the [facility] in [place], [place]. Pt reports that he pays OOP for his me dications. Pt reports he tries to stay on the $4.99 list. Pt may need assistan ce with medications on DC. ? Source of Income Source Of Income: Unemployed ? Financial Assistance Needed? none Current/Previous Services ? PCP Silver Rabago - Pt last saw PCP last Tuesday. CARDIOLOGY: Dr. Tashia Harper ([phone]) - Director Of Education in [place], [place] ? DME DME at home: Single [employer] rasheed - Pt does not use ? Home Health Receiving home health: No [...] ? Outpatient Therapy PT: No OT: No MANAGER ENTRY: No ? SNF/NH SNF: No NH: No ? IPR IPR: No ? LTACH LTACH: No ? Acute Hospital Stay Acute Hospital Stay: No Psychosocial Needs ? Mental Health Mental Health History: No ? Substance History History Smoking status Current Every Day Smoker Types: Cigarettes Smokeless tobacco Not on file History Alcohol Use 0.0 oz/week 0 Standard drinks or equivalent per week History Drug Use No Comment: pt denies drug use but he had a + UDS for amphetamines and methamphet amines in 10/03 ? Abuse/Sexual Assault Have You Ever Been Hit, Hurt Or Threatened In Any Way In The Past 5 Years?: No Nurse Suspected Abuse?: No KRISTEN Michael, RN Nurse Power Saw Mechanic - [facility] 1 Service Pager: [phone] MARKER * Care Plan - Yary Hayes RN - 08/14/2016 12:22 AM LAST MARKER Problem: Discharge Planning Goal: Participation in plan of care Outcome: Goal Ongoing Discharge pending, asks questions appropriately Problem: Pain Goal: Management of pain Outcome: Goal Ongoing Pain meds per MD order, encourage to speak up, hourly rounding Problem: Skin Integrity Goal: Skin integrity intact Outcome: Goal Ongoing Encourage activity MARKER documented in this encounter Plan of Treatment Order Schedule Name Type Priority Associated Diagnoses Daily, Non Specified for 1 Occurrences starting 08/14/2016 until 08/14/2016 ECG 12-LEAD ECG Routine documented as of this encounter Procedures Comments Procedure Name Priority Date/Time Associated Diagnosis ECG-SCAN 08/21/2016 2:38 PM LAST MARKER ECG UNCONFIRMED-SCAN 08/18/2016 2:45 PM LAST MARKER TELEMETRY STRIPS-SCAN 08/18/2016 2:27 PM LAST MARKER PROCEDURE RECORD-SCAN 08/18/2016 2:20 PM LAST MARKER 2-D + DOPPLER Routine 08/16/2016 ECHOCARDIOGRAM 12:19 PM LAST MARKER CARDIAC CATH REPORT 08/16/2016 9:03 AM LAST MARKER CBC Routine 08/16/2016 4:46 AM LAST MARKER MAGNESIUM Routine 08/16/2016 4:46 AM LAST MARKER BASIC METABOLIC PANEL Routine 08/16/2016 4:46 AM LAST MARKER PTT (APTT) STAT 08/15/2016 5:44 AM LAST MARKER CBC Routine 08/15/2016 5:44 AM LAST MARKER MAGNESIUM Routine 08/15/2016 5:44 AM LAST MARKER BASIC METABOLIC PANEL Routine 08/15/2016 5:44 AM LAST MARKER CTA CHEST WO/W Routine 08/14/2016 CONTRAST+POST IMPRESSION 11:41 PM LAST MARKER TROPONIN-I STAT 08/14/2016 6:50 PM LAST MARKER POC ACTIVATED CLOTTING 08/14/2016 TIME 3:27 PM LAST MARKER PTT (APTT) STAT 08/14/2016 11:55 AM LAST MARKER URINALYSIS, MICROSCOPIC Routine 08/14/2016 7:23 AM LAST MARKER URINALYSIS DIPSTICK Routine 08/14/2016 7:23 AM LAST MARKER TROPONIN-I STAT 08/14/2016 4:33 AM LAST MARKER PTT (APTT) STAT 08/14/2016 4:33 AM LAST MARKER CBC Routine 08/14/2016 4:33 AM LAST MARKER MAGNESIUM Routine 08/14/2016 4:33 AM LAST MARKER BASIC METABOLIC PANEL Routine 08/14/2016 4:33 AM LAST MARKER TROPONIN-I STAT 08/14/2016 12:30 AM LAST MARKER ECG 12-LEAD STAT 08/13/2016 10:22 PM LAST MARKER TROPONIN-I Add on 08/13/2016 10:07 PM LAST MARKER PTT (APTT) STAT 08/13/2016 10:07 PM LAST MARKER PROTIME INR (PT) Add on 08/13/2016 10:07 PM LAST MARKER CBC STAT 08/13/2016 10:07 PM LAST MARKER PHOSPHORUS Add on 08/13/2016 10:07 PM LAST MARKER BNP (B-TYPE NATRIURETIC Add on 08/13/2016 PEPTI) 10:07 PM LAST MARKER MAGNESIUM Add on 08/13/2016 10:07 PM LAST MARKER GENERAL RAD CHEST Routine 08/12/2016 Diagnosis unknown EXTERNAL IMAGING 12:[address] CHEST EXTERNAL IMAGING Routine 07/31/2016 Diagnosis unknown 10:50 PM LAST MARKER GENERAL RAD CHEST Routine 07/31/2016 Diagnosis unknown EXTERNAL IMAGING 12:[address] HEAD EXTERNAL IMAGING Routine 07/29/2016 Diagnosis unknown 12:15 AM LAST MARKER GENERAL RAD CHEST Routine 07/29/2016 Diagnosis unknown EXTERNAL IMAGING 12:00 AM LAST MARKER documented in this encounter Results * ECG-SCAN (08/21/2016 2:38 PM LAST MARKER) Narrative Performed At Ordered by an unspecified provider. * ECG UNCONFIRMED-SCAN (08/18/2016 2:45 PM LAST MARKER) Narrative Performed At Ordered by an unspecified provider. * TELEMETRY STRIPS-SCAN (08/18/2016 2:27 PM LAST MARKER) Narrative Performed At Ordered by an unspecified provider. * PROCEDURE RECORD-SCAN (08/18/2016 2:20 PM LAST MARKER) Narrative Performed At Ordered by an unspecified provider. * 2-D + DOPPLER ECHOCARDIOGRAM (08/16/2016 12:19 PM LAST MARKER) BSA 1.88 m2 OTHER OUTSIDE LAB ECHO EF 60 % OTHER OUTSIDE LAB Referring Ayo King OTHER OUTSIDE Provider LAB CV ECHO PV OTHER OUTSIDE SWEATBAND MAKER LAB Interp Only OTHER OUTSIDE Spindle Repairer LAB Height (in) in OTHER OUTSIDE LAB Weight Lbs lbs OTHER OUTSIDE LAB Rt Systolic BP OTHER OUTSIDE LAB Rt Diastolic BP mmHg OTHER OUTSIDE LAB LVIDD 4.2 4.2 - 5.9 cm OTHER OUTSIDE LAB LVIDS 3.0 cm OTHER OUTSIDE LAB IVS 1.8 0.6 - 1.0 cm OTHER OUTSIDE LAB PW 1.0 0.6 - 1.0 cm OTHER OUTSIDE LAB FS 28.57 28 - 44 % OTHER OUTSIDE LAB EF 48.57 % OTHER OUTSIDE LAB LA size 3.3 3.0 - 4.0 cm OTHER OUTSIDE LAB Left Ventricle 22 - 58 mL OTHER OUTSIDE Systolic Volume LAB Left Ventricle 12 - 30 mL OTHER OUTSIDE Systolic Volume LAB Index Left Ventricle 67 - 155 mL OTHER OUTSIDE Diastolic LAB Volume Left Ventricle 35 - 75 mL OTHER OUTSIDE Diastolic LAB Volume Index LA volume 34.0 18 - 58 mL OTHER OUTSIDE LAB Left Atrium 18.09 10 - 32 OTHER OUTSIDE Index LAB LV mass 96 - 200 g OTHER OUTSIDE LAB Left Ventricle 50 - 102 g/m2 OTHER OUTSIDE Mass Index LAB Right 3.6 cm (2.4-4.2) OTHER OUTSIDE Ventricular LAB Basal Diameter Right Atrial 9.0 cm2 (<=18) OTHER OUTSIDE Area LAB Right 2.8 cm (2.0-3.5) OTHER OUTSIDE Ventricular Mid LAB Diameter Right Atrial cm (<=5.3) OTHER OUTSIDE Major Dimension LAB Right 6.9 cm (5.6-8.6) OTHER OUTSIDE Ventricular LAB Long Diameter Right Atrial cm (<=4.4) OTHER OUTSIDE Minor Dimension LAB Right cm (<=0.5) OTHER OUTSIDE Ventricular LAB Wall Ao root annulus 1.4 - 2.6 cm OTHER OUTSIDE LAB Sinus 3.5 2.1 - 3.5 cm OTHER OUTSIDE LAB STJ 1.7 - 3.4 cm OTHER OUTSIDE LAB Proximal aorta 2.1 - 3.4 cm OTHER OUTSIDE LAB Ascending aorta 2.0 - 3.6 cm OTHER OUTSIDE LAB Aortic arch 2.0 - 3.6 cm OTHER OUTSIDE LAB MPA annulus 1.0 - 2.2 cm OTHER OUTSIDE LAB MPA annulus 0.9 - 2.9 cm OTHER OUTSIDE LAB Left pulmonary 0.6 - 1.4 cm OTHER OUTSIDE artery LAB Right pulmonary 0.7 - 1.7 cm OTHER OUTSIDE artery LAB IVC ostium cm OTHER OUTSIDE LAB IVC proximal cm OTHER OUTSIDE LAB LVOT diameter cm OTHER OUTSIDE LAB LVOT area cm2 OTHER OUTSIDE LAB LVOT peak cruz m/s OTHER OUTSIDE LAB LVOT peak VTI cm OTHER OUTSIDE LAB AV peak 1.9 m/s OTHER OUTSIDE velocity LAB Ao VTI cm OTHER OUTSIDE LAB Aortic valve cm2 OTHER OUTSIDE area= LAB , with a mean mmHg OTHER OUTSIDE gradient of LAB and a peak mmHg OTHER OUTSIDE gradient of LAB AV index OTHER OUTSIDE ([place]) LAB AV mean mmHg OTHER OUTSIDE gradient post LAB stress AV peak mmHg OTHER OUTSIDE gradient post LAB stress AV peak m/s OTHER OUTSIDE velocity post LAB stress AV valve area cm2 OTHER OUTSIDE P1/2 post LAB stress AV Comp cm OTHER OUTSIDE diameter LAB AV Comp area cm2 OTHER OUTSIDE LAB AV Comp VTI cm OTHER OUTSIDE LAB AV Comp SV cm3 OTHER OUTSIDE LAB AV Incomp cm OTHER OUTSIDE diameter LAB AV Incomp area cm2 OTHER OUTSIDE LAB AV Incomp VTI cm OTHER OUTSIDE LAB AV Incomp SV cm3 OTHER OUTSIDE LAB AV regurgitant cc OTHER OUTSIDE volume LAB Aortic valve % OTHER OUTSIDE regurgitant LAB fraction AV msec OTHER OUTSIDE regurgitation LAB pressure 1/2 time AV vena cm OTHER OUTSIDE contracta LAB AV Jet Height cm OTHER OUTSIDE LAB AV LVOT Height cm OTHER OUTSIDE LAB AV JH LVOTH % OTHER OUTSIDE Percent LAB PISA AR VN OTHER OUTSIDE Nyquist LAB AV Radius PISA OTHER OUTSIDE LAB AR Max Cruz OTHER OUTSIDE LAB AV area PISA cm2 OTHER OUTSIDE LAB AV LVOT peak mmHg OTHER OUTSIDE gradient LAB grad vals mmHg OTHER OUTSIDE LAB AV LVOT preak mmHg OTHER OUTSIDE gradient w/amyl LAB nitrate AV LVOT preak mmHg OTHER OUTSIDE gradient post LAB stress MV mean mmHg OTHER OUTSIDE gradient LAB MV peak mmHg OTHER OUTSIDE gradient LAB MV VTI cm OTHER OUTSIDE LAB MV stenosis ms OTHER OUTSIDE pressure 1/2 LAB time MV valve area cm2 OTHER OUTSIDE P1/2 LAB MV valve area cm2 OTHER OUTSIDE by planimetry LAB MV valve area cm2 OTHER OUTSIDE by continuity LAB eq MV valve area cm2 OTHER OUTSIDE PISA LAB Vn Nyquist MS m/s OTHER OUTSIDE LAB PISA MS Radius cm OTHER OUTSIDE LAB MV Peak E Cruz m/s OTHER OUTSIDE CW LAB PISA MS Angle OTHER OUTSIDE Cor LAB MV mean mmHg OTHER OUTSIDE gradient post LAB stress MV valve area cm2 OTHER OUTSIDE P1/2 post LAB stress PAP post stress mmHg OTHER OUTSIDE LAB MV Comp cm OTHER OUTSIDE diameter LAB MV Comp area cm2 OTHER OUTSIDE LAB MV Comp VTI cm OTHER OUTSIDE LAB MV Comp SV cm3 OTHER OUTSIDE LAB MV Incomp cm OTHER OUTSIDE diameter LAB MV Incomp area cm2 OTHER OUTSIDE LAB MV Incomp VTI cm OTHER OUTSIDE LAB MV Incomp SV cm3 OTHER OUTSIDE LAB MV regurgitant cc OTHER OUTSIDE volume LAB MV % OTHER OUTSIDE regurgitation LAB fraction MV vena cm OTHER OUTSIDE contracta LAB Vn Nyquist m/s OTHER OUTSIDE LAB Radius cm OTHER OUTSIDE LAB Mr max cruz m/s OTHER OUTSIDE LAB MR PISA EROA cm2 OTHER OUTSIDE LAB TV mean mmHg OTHER OUTSIDE gradient LAB TV peak mmHg OTHER OUTSIDE gradient LAB TV VTI OTHER OUTSIDE LAB TV stenosis ms OTHER OUTSIDE pressure 1/2 LAB time TV Valve Aea by OTHER OUTSIDE P 1/2 Method LAB TV Valve Area cm2 OTHER OUTSIDE By Continuity LAB Equation TV rest na mmHg OTHER OUTSIDE pulmonary LAB artery pressure TV peak mmHg OTHER OUTSIDE systolic LAB pulmonary PAP TV Comp cm OTHER OUTSIDE diameter LAB TV Comp area cm2 OTHER OUTSIDE LAB TV Comp VTI cm OTHER OUTSIDE LAB TV Comp SV cm3 OTHER OUTSIDE LAB TV Incomp cm OTHER OUTSIDE diameter LAB TV Incomp area cm2 OTHER OUTSIDE LAB TV Incomp VTI cm OTHER OUTSIDE LAB TV Incomp SV cm3 OTHER OUTSIDE LAB TV regurgitant cc OTHER OUTSIDE volume LAB TV % OTHER OUTSIDE regurgitation LAB fraction TV vena cm OTHER OUTSIDE contracta LAB PISA TR VN OTHER OUTSIDE Nyquist LAB PISA TR Radius OTHER OUTSIDE LAB TR Max Cruz OTHER OUTSIDE LAB TV area PISA cm2 OTHER OUTSIDE LAB RVOT diamter cm OTHER OUTSIDE LAB RVOT area cm2 OTHER OUTSIDE LAB RVOT peak cruz m/s OTHER OUTSIDE LAB RVOT peak VTI cm OTHER OUTSIDE LAB PV mean OTHER OUTSIDE gradient LAB PV preak mmHg OTHER OUTSIDE gradient LAB PV valve area cm2 OTHER OUTSIDE LAB E/A ratio 0.57 OTHER OUTSIDE LAB IVRT msec OTHER OUTSIDE LAB Pulm vein S/D OTHER OUTSIDE ratio LAB TDI e' 0.100 m/s OTHER OUTSIDE LAB E/E' ratio 4.00 OTHER OUTSIDE LAB E wave msec OTHER OUTSIDE decelartion LAB time MV "A" wave msec OTHER OUTSIDE duration LAB Pulm vein "A" msec OTHER OUTSIDE wave LAB MV Peak E Cruz 0.400 m/s OTHER OUTSIDE PW LAB MV Peak A Cruz 0.700 m/s OTHER OUTSIDE LAB PV Peak S Cruz m/s OTHER OUTSIDE LAB PV Peak D Cruz m/s OTHER OUTSIDE LAB Right Heart m/s OTHER OUTSIDE Systolic TDI S' LAB Right Heart OTHER OUTSIDE Systolic MPI LAB Right Heart ms OTHER OUTSIDE Systolic ET LAB Right Heart ms OTHER OUTSIDE Systolic TCO LAB Right Heart cm OTHER OUTSIDE Systolic Mmode LAB TAPSE Right Heart m/s OTHER OUTSIDE Diastolic TV LAB Peak E Velociaty Right Heart m/s OTHER OUTSIDE Diastolic TV LAB Peak A Velociaty Right Heart msec OTHER OUTSIDE Diastolic E LAB Deceleration Time Right Heart OTHER OUTSIDE Diastolic E/A LAB Ratio Right Heart OTHER OUTSIDE Diastolic E/e' LAB Ratio LVOT stroke cm3 OTHER OUTSIDE volume LAB Qp:Qs ratio OTHER OUTSIDE LAB RVOT stroke cm3 OTHER OUTSIDE volume LAB Specimen Narrative Performed At Normal left ventricular size and hyperdynamic systolic function. OTHER OUTSIDE LAB Estimated left ventricular ejection fraction is 70%. [...] This study was read in conjunction with master fisher, Dr. Hudson Monzon.I have personally reviewed the study and co-formulated the interpretation expressed in this report. Performing Organization Address City/State/Zipcode Phone Number OTHER OUTSIDE LAB * CARDIAC CATH REPORT (08/16/2016 9:03 AM LAST MARKER) Transcriptions Melisa Ortiz MD - 08/14/2016 3:57 PM LAST MARKER [facility] CARDIAC CATHETERIZATION REPORT Page 3 KAZ Diaz : 1960 #: [id number] MR #/Billing ID #: [id number] / [id number] DATE: 08/14/2016 DORMITORY MAID: Melisa Ortiz MD DICTATING PROVIDER: Melisa Ortiz [...] He went to a local hospital in [place], [place]. He was put on IV nitroglycerin [...] obtained with a micropuncture needle and a 5-Sammarinese short sheath was advanced. 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 TOTAL CONTRAST [...] a dissection plane site during the complex [employer]. At this point, I would recommend conservative [...] this with Dr. Simms, the patient's primary engineering test mechanic, today, who reviewed the images and agrees [...] recommendations are being made. Melisa Ortiz MD KG/Patrick /[id number] p cc: - SILVER RABAGO Performing Organization Address City/State/Zipcode Phone Number OTHER OUTSIDE LAB * MAGNESIUM (08/16/2016 4:46 AM LAST MARKER) Magnesium 1.8 1.6 - 2.6 mg/dL [facility] Specimen Blood Performing Organization Address City/[facility] Phone Number [facility] [address] [place] [address] * BASIC METABOLIC PANEL (08/16/2016 4:46 AM LAST MARKER) Sodium 137 137 - 147 MMOL/L [facility] Potassium 4.5 3.5 - 5.1 MMOL/L [facility] Chloride 103 98 - 110 MMOL/L [facility] CO2 29 21 - 30 MMOL/L [facility] Anion Gap 5 3 - 12 [facility] Glucose 113 (H) 70 - 100 MG/DL [facility] Blood Urea 22 7 - 25 MG/DL [facility] Nitrogen Creatinine 1.10 0.4 - 1.24 MG/DL [facility] Calcium 9.2 8.5 - 10.6 MG/DL [facility] eGFR Non >60 >60 mL/min [facility] Comment: [place] The eGFR is not validated for use in drug dosing adjustments.Continue to use estimated creatinine clearance per dosing reference text.Please contact the Clinical Pharmacist for questions. eGFR >60 >60 mL/min [facility] [place] Comment: The eGFR is not validated for use in drug dosing adjustments.Continue to use estimated creatinine clearance per dosing reference text.Please contact the Clinical Pharmacist for questions. Specimen Blood Performing Organization Address City/[facility]/Zipcode Phone Number MAIN LAB [address] [place] [address] * CBC (08/16/2016 4:46 AM LAST MARKER) White Blood 5.7 4.5 - 11.0 K/UL [facility] Cells RBC 3.84 (L) 4.4 - 5.5 M/UL [facility] Hemoglobin 11.7 (L) 13.5 - 16.5 GM/DL [facility] Hematocrit 35.2 (L) 40 - 50 % [facility] MCV 91.6 80 - 100 FL [facility] MCH 30.5 26 - 34 PG MAIN LAB MCHC 33.3 32.0 - 36.0 G/DL [facility] RDW 13.2 11 - 15 % [facility] Platelet Count 280 150 - 400 K/UL [facility] MPV 8.0 7 - 11 FL [facility] Specimen Blood Performing Organization Address City/[facility] Phone Number MAIN LAB [address] [place] [address] * PTT (APTT) (08/15/2016 5:44 AM LAST MARKER) APTT 65.1 (H) 24.0 - 40.0 SEC MAIN LAB Specimen Blood Performing Organization Address City/[facility]/Zipcode Phone Number MAIN LAB [address] [place] [address] * MAGNESIUM (08/15/2016 5:44 AM LAST MARKER) Magnesium 2.1 1.6 - 2.6 mg/dL MAIN LAB Specimen Blood Performing Organization Address City/[facility]/Zipcode Phone Number MAIN LAB [address] [place] [address] * BASIC METABOLIC PANEL (08/15/2016 5:44 AM LAST MARKER) Sodium 136 (L) 137 - 147 MMOL/L [facility] Potassium 4.7 3.5 - 5.1 MMOL/L MAIN LAB Chloride 104 98 - 110 MMOL/L [facility] CO2 26 21 - 30 MMOL/L [facility] Anion Gap 6 3 - 12 [facility] Glucose 105 (H) 70 - 100 MG/DL [facility] Blood Urea 20 7 - 25 MG/DL [facility] Nitrogen Creatinine 1.06 0.4 - 1.24 MG/DL [facility] Calcium 9.2 8.5 - 10.6 MG/DL [facility] eGFR Non >60 >60 mL/min [facility] Comment: [place] The eGFR is not validated for use in drug dosing adjustments.Continue to use estimated creatinine clearance per dosing reference text.Please contact the Clinical Pharmacist for questions. eGFR >60 >60 mL/min [facility] [place] Comment: The eGFR is not validated for use in drug dosing adjustments.Continue to use estimated creatinine clearance per dosing reference text.Please contact the Clinical Pharmacist for questions. Specimen Blood Performing Organization Address City/[facility]/Zipcode Phone Number [facility] [address] [place] [address] * CBC (08/15/2016 5:44 AM LAST MARKER) White Blood 6.2 4.5 - 11.0 K/UL [facility] Cells RBC 3.85 (L) 4.4 - 5.5 M/UL [facility] Hemoglobin 12.0 (L) 13.5 - 16.5 GM/DL [facility] Hematocrit 34.4 (L) 40 - 50 % [facility] MCV 89.4 80 - 100 FL [facility] MCH 31.1 26 - 34 PG [facility] MCHC 34.8 32.0 - 36.0 G/DL [facility] RDW 13.0 11 - 15 % [facility] Platelet Count 295 150 - 400 K/UL [facility] MPV 8.2 7 - 11 FL [facility] Specimen Blood Performing Organization Address City/[facility]/Zipcode Phone Number MAIN LAB [address] [place] [address] * CTA CHEST WO/W CONTRAST+POST IMPRESSION (08/14/2016 11:41 PM LAST MARKER) Specimen Impressions Performed At 1.Mild aortic valvular calcification without aortic aneurysm, dissection or [facility] RAD RESULTS intramural hematoma. 2.Mild emphysema. 3.Coronary artery disease. 4.Small hiatal hernia. By my electronic signature, I attest that I have personally reviewed the images for this examination and formulated the interpretations and opinions expressed in this report Finalized by Stuart Cantor M.D. on 08/15/2016 12:23 AM. Dictated by Sagar Velez M.D. on 08/14/2016 11:51 PM. Narrative Performed At CTA CHEST [facility] RESULTS CLINICAL HISTORY: 56-year-old male, CHEST PAIN, ACUTE, [...] identified. Procedure Note Interface, Radiant Results - 08/15/2016 12:27 AM LAST MARKER CTA CHEST CLINICAL HISTORY: 56-year-old male, CHEST [...] Sagar Velez M.D. on 08/14/2016 11:51 PM. Performing Organization Address [facility] Phone Number RAD RESULTS * TROPONIN-I (08/14/2016 6:50 PM LAST MARKER) Troponin-I 0.03 0.0 - 0.05 NG/ML MAIN LAB Specimen Blood Performing Organization Address [facility] Phone Number [facility] [address] [place] [address] * POC ACTIVATED CLOTTING TIME (08/14/2016 3:27 PM LAST MARKER) Activated 158 s [facility] Clotting Time Specimen Performing Organization Address [facility] Phone Number [facility] [address] [place] [address] * PTT (APTT) (08/14/2016 11:55 AM LAST MARKER) APTT 39.9 24.0 - 40.0 SEC MAIN LAB Specimen Blood Performing Organization Address [facility] Phone Number [facility] [address] [place] [address] * URINALYSIS, MICROSCOPIC (08/14/2016 7:23 AM LAST MARKER) WBCs,UA 10-20 0 - 2 /HPF [facility] RBCs,UA 20-50 0 - 3 /HPF [facility] MucousUA 1+ [facility] Squamous 0-2 0 - 5 [facility] Epithelial Cells Hyaline Cast 0-2 [facility] Specimen Urine - Urine Performing Organization Address [facility] Phone Number MAIN LAB [address] [place] [address] * URINALYSIS DIPSTICK (08/14/2016 7:23 AM LAST MARKER) Color,UA YELLOW [facility] Turbidity,UA CLEAR CLEAR-CLEAR [facility] Specific 1.015 1.003 - 1.035 [facility] [place]-Urine pH,UA 6.0 5.0 - 8.0 [facility] Protein,UA NEG NEG-NEG [facility] Glucose,UA NEG NEG-NEG [facility] Ketones,UA NEG NEG-NEG [facility] Bilirubin,UA NEG NEG-NEG [facility] Blood,UA 2+ (A) NEG-NEG [facility] Urobilinogen,UA NORMAL NORM-NORMAL [facility] Nitrite,UA NEG NEG-NEG [facility] Leukocytes,UA 1+ (A) NEG-NEG [facility] Urine Ascorbic NEG NEG-NEG [facility] Acid, UA Specimen Urine - Urine Performing Organization Address [facility] Phone Number MAIN LAB [address] [place] [address] * PTT (APTT) (08/14/2016 4:33 AM LAST MARKER) APTT 38.0 24.0 - 40.0 SEC MAIN LAB Specimen Blood Performing Organization Address [facility] Phone Number MAIN LAB [address] [place] [address] * TROPONIN-I (08/14/2016 4:33 AM LAST MARKER) Troponin-I 0.06 (H) 0.0 - 0.05 NG/ML MAIN LAB Specimen Blood Performing Organization Address City/[facility] Phone Number MAIN LAB [address] [place] [address] * MAGNESIUM (08/14/2016 4:33 AM LAST MARKER) Magnesium 2.0 1.6 - 2.6 mg/dL [facility] Specimen Blood Performing Organization Address [facility] Phone Number MAIN LAB [address] [place] [address] * BASIC METABOLIC PANEL (08/14/2016 4:33 AM LAST MARKER) [facility] Sodium 138 137 - 147 MMOL/L MAIN LAB Potassium 4.0 3.5 - 5.1 MMOL/L MAIN LAB Chloride 106 98 - 110 MMOL/L MAIN LAB CO2 25 21 - 30 MMOL/L [facility] Anion Gap 7 3 - 12 [facility] Glucose 101 (H) 70 - 100 MG/DL MAIN LAB Blood Urea 22 7 - 25 MG/DL MAIN LAB Nitrogen Creatinine 1.07 0.4 - 1.24 MG/DL MAIN LAB Calcium 9.1 8.5 - 10.6 MG/DL MAIN LAB eGFR Non >60 >60 mL/min MAIN LAB Comment: [place] The eGFR is not validated for use in drug dosing adjustments.Continue to use estimated creatinine clearance per dosing reference text.Please contact the Clinical Pharmacist for questions. eGFR >60 >60 mL/min [facility] [place] Comment: The eGFR is not validated for use in drug dosing adjustments.Continue to use estimated creatinine clearance per dosing reference text.Please contact the Clinical Pharmacist for questions. Specimen Blood Performing Organization Address City/State/Zipcode Phone Number [facility] [address] [place] [address] * CBC (08/14/2016 4:33 AM LAST MARKER) [facility] White Blood 4.8 4.5 - 11.0 K/UL MAIN LAB Cells RBC 3.75 (L) 4.4 - 5.5 M/UL [facility] Hemoglobin 11.6 (L) 13.5 - 16.5 GM/DL MAIN LAB Hematocrit 33.7 (L) 40 - 50 % MAIN LAB MCV 89.8 80 - 100 FL MAIN LAB MCH 30.8 26 - 34 PG [facility] MCHC 34.3 32.0 - 36.0 G/DL [facility] RDW 12.8 11 - 15 % MAIN LAB Platelet Count 283 150 - 400 K/UL MAIN LAB MPV 8.2 7 - 11 FL [facility] Specimen Blood Performing Organization Address City/State/Zipcode Phone Number [facility] [address] [place] [address] * TROPONIN-I (08/14/2016 12:30 AM LAST MARKER) Troponin-I 0.07 (H) 0.0 - 0.05 NG/ML MAIN LAB Specimen Blood Performing Organization Address City/[facility] Phone Number MAIN LAB [address] [place] [address] * TROPONIN-I (08/13/2016 10:07 PM LAST MARKER) Troponin-I 0.06 (H) 0.0 - 0.05 NG/ML MAIN LAB Specimen Performing Organization Address City/[facility] Phone Number MAIN LAB [address] [place] [address] * PROTIME INR (PT) (08/13/2016 10:07 PM LAST MARKER) INR 1.0 0.8 - 1.2 MAIN LAB Specimen Performing Organization Address [facility] Phone Number MAIN LAB [address] [place] [address] * PHOSPHORUS (08/13/2016 10:07 PM LAST MARKER) Phosphorus 3.6 2.0 - 4.0 MG/DL MAIN LAB Specimen Performing Organization Address City/[facility] Phone Number MAIN LAB [address] [place] [address] * MAGNESIUM (08/13/2016 10:07 PM LAST MARKER) Magnesium 1.8 1.6 - 2.6 mg/dL MAIN LAB Specimen Performing Organization Address [facility] Phone Number MAIN LAB [address] [place] [address] * BNP (B-TYPE NATRIURETIC PEPTI) (08/13/2016 10:07 PM LAST MARKER) B Type 22.0 0 - 100 PG/ML MAIN LAB Natriuretic Peptide Specimen Performing Organization Address [facility] Phone Number MAIN LAB [address] [place] [address] * PTT (APTT) (08/13/2016 10:07 PM LAST MARKER) APTT 27.8 24.0 - 40.0 SEC MAIN LAB Specimen Blood Performing Organization Address [facility]/Zipcode Phone Number MAIN LAB [address] [place] [address] * CBC (08/13/2016 10:07 PM LAST MARKER) White Blood 6.2 4.5 - 11.0 K/UL [facility] Cells RBC 3.77 (L) 4.4 - 5.5 M/UL [facility] Hemoglobin 11.5 (L) 13.5 - 16.5 GM/DL [facility] Hematocrit 35.0 (L) 40 - 50 % [facility] MCV 92.7 80 - 100 FL [facility] MCH 30.4 26 - 34 PG [facility] MCHC 32.8 32.0 - 36.0 G/DL [facility] RDW 13.0 11 - 15 % [facility] Platelet Count 294 150 - 400 K/UL [facility] MPV 8.2 7 - 11 FL [facility] Specimen Blood Performing Organization Address City/State/Zipcode Phone Number MAIN LAB [address] [place] [address] * GENERAL RAD CHEST EXTERNAL IMAGING (08/12/2016 12:00 AM LAST MARKER) Specimen Narrative Performed At This order has been auto finalized and does not contain a result. * CT CHEST EXTERNAL IMAGING (07/31/2016 10:50 PM LAST MARKER) Specimen Narrative Performed At This order has been auto finalized and does not contain a result. * GENERAL RAD CHEST EXTERNAL IMAGING (07/31/2016 12:00 AM LAST MARKER) Specimen Narrative Performed At This order has been auto finalized and does not contain a result. * CT HEAD EXTERNAL IMAGING (07/29/2016 12:15 AM LAST MARKER) Specimen Narrative Performed At This order has been auto finalized and does not contain a result. * GENERAL RAD CHEST EXTERNAL IMAGING (07/29/2016 12:00 AM LAST MARKER) Specimen Narrative Performed At This order has been auto finalized and does not contain a result. documented in this encounter Visit Diagnoses Diagnosis Diagnosis unknown - Primary Other unknown and unspecified cause of morbidity or mortality Coronary artery disease of [place] artery of [place] heart with stable angina pectoris (HCC) Chest pain, unspecified type Unstable angina (HCC) Intermediate coronary syndrome Essential hypertension Unspecified essential hypertension GERD (gastroesophageal reflux disease) Esophageal reflux Mixed hyperlipidemia documented in this encounter Admitting Diagnoses Diagnosis Unstable angina (HCC) Intermediate coronary syndrome documented in this encounter Administered Medications Action Date Dose Rate Site Medication Order MAR Action 08/14/2016 5:41 PM LAST MARKER 650 mg acetaminophen (TYLENOL) tablet 650 mg Given 650 mg, Oral, EVERY 6 HOURS PRN, Starting Tue08/13/16 at 2222, Until Tue08/16/16 at 1848, Pain, TOTAL ACETAMINOPHEN DOSE NOT TO EXCEED 4GM DAILY, 650 mg Given 08/14/2016 8:46 AM LAST MARKER 650 mg Given 08/13/2016 11:24 PM LAST MARKER 08/16/2016 8:24 AM LAST MARKER 10 mg amLODIPine (NORVASC) tablet 10 mg Given 10 mg, Oral, DAILY, First dose on 08/14/16 at 0900, Until Discontinued, NURSING: Please educate patient and document: Do not give with grapefruit juice., 10 mg Given 08/15/2016 8:42 AM LAST MARKER 10 mg Given 08/14/2016 8:42 AM LAST MARKER 08/14/2016 2:28 PM LAST MARKER 243 mg aspirin chewable tablet 243 mg Given 243 mg, Oral, ONCE, 1 dose, 08/14/16 at 1430 08/16/2016 8:24 AM LAST MARKER 81 mg aspirin EC tablet 81 mg Given 81 mg, Oral, DAILY, First dose on 08/14/16 at 0900, Until Discontinued 81 mg Given 08/15/2016 8:43 AM LAST MARKER 81 mg Given 08/14/2016 8:42 AM LAST MARKER 08/15/2016 8:06 PM LAST MARKER 40 mg atorvastatin (LIPITOR) tablet 40 mg Given 40 mg, Oral, AT BEDTIME DAILY, First dose on Tue08/13/16 at 2330, Until Discontinued 40 mg Given 08/14/2016 10:37 PM LAST MARKER 40 mg Given 08/13/2016 11:24 PM LAST MARKER 08/16/2016 8:24 AM LAST MARKER 6.25 mg carvedilol (COREG) tablet 6.25 mg Given 6.25 mg, Oral, TWICE DAILY WITH MEALS, First dose on 08/14/16 at 0800, Until Discontinued, Hold for heart rate < 60 bpm, 6.25 mg Given 08/15/2016 4:56 PM LAST MARKER 6.25 mg Given 08/14/2016 5:38 PM LAST MARKER 08/16/2016 8:24 AM LAST MARKER 75 mg clopiDOGrel (PLAVIX) tablet 75 mg Given 75 mg, Oral, DAILY, First dose on 08/14/16 at 0900, Until Discontinued, This Medication can increase the risk of bleeding and may need to be held prior to surgery or invasive procedures. Consult physician in advance., 75 mg Given 08/15/2016 8:42 AM LAST MARKER 75 mg Given 08/14/2016 8:42 AM LAST MARKER 08/15/2016 8:06 PM LAST MARKER 40 mg Abdominal Tissue enoxaparin (LOVENOX) syringe 40 mg Given 40 mg, Subcutaneous, AT BEDTIME DAILY, First dose on Tue08/15/16 at 2100, Until Discontinued, For patients undergoing surgery: Consult physician in advance -- enoxaparin is an anticoagulant and may need to be held for 12hr prior to surgery or invasive procedures. NOTE: This is a HIGH ALERT Medication., 08/15/2016 6:33 AM LAST MARKER 1,300 Units/hr 32.5 mL/hr heparin (porcine) 20,000 units/D5W 500 Given - New mL infusion (std conc)(premade) Bag 0-2,000 Units/hr (0-50 mL/hr) 500 mL, at 0-50 mL/hr, Intravenous, TITRATE DIRECTED , Starting Tue08/13/16 at 2130, Until Tue08/15/16 at 0720, Weight-Based Heparin Protocol - STEMI/NSTEMI/UA - See separate order for Initial IV bolus (if ordered). - If patient received IV heparin within the previous 2 hours, DO NOT give bolus, proceed with infusion. - Initial IV infusion 12 units/kg/hr. Infusion not to exceed 1,000 units/hr for the first 12 hours. - Follow heparin infusion scale - WITH ADJUSTMENT BOLUS (see reference link) for subsequent bolus and rate changes (see separate order). NOTE: This is a HIGH ALERT Medication., 1,200 Units/hr 30 mL/hr Given - New Bag 08/15/2016 12:02 AM LAST MARKER 1,200 Units/hr 30 mL/hr Given - New Bag 08/14/2016 12:38 PM LAST MARKER 08/15/2016 6:34 AM LAST MARKER 1,450 Units heparin (porcine) BOLUS for continuous Given inf (bag) 1,450-2,900 Units 1,450-2,900 Units (20-40 Units/kg 72.5 kg), Intravenous, SEE ADMIN INSTRUCTIONS, Starting Tue08/13/16 at 2114, Until Tue08/15/16 at 1109, ADJUSTMENT BOLUS for heparin drip -- Weight-Based Heparin Protocol - STEMI/NSTEMI/UA - Follow heparin infusion scale - WITH ADJUSTMENT BOLUS (see reference link) for subsequent bolus and rate changes. - Administer adjustment bolus dose via pump from infusion bag. NOTE: This is a HIGH ALERT Medication., 2,900 Units Given 08/14/2016 12:38 PM LAST MARKER 2,900 Units Given 08/14/2016 5:43 AM LAST MARKER 08/13/2016 11:06 PM LAST MARKER 4,000 Units heparin (porcine) BOLUS for continuous Given inf (bag) 4,000 Units 4,000 Units, Intravenous, ONCE, 1 dose, Tue08/13/16 at 2130, INITIAL BOLUS for heparin drip -- Weight-Based Heparin Protocol - STEMI/NSTEMI/UA - If patient received IV heparin within the previous 2 hours, DO NOT give bolus, proceed with infusion. - Initial IV bolus (administer from bag): 60 units/kg - Not to exceed 4000 units - Administer initial bolus dose via pump from infusion bag. NOTE: This is a HIGH ALERT Medication., 08/14/2016 11:45 PM LAST MARKER 75 mL iopamidol 370 (ISOVUE-370) injection 75 Given mL 75 mL, Intravenous, ONCE, 1 dose, 08/14/16 at 2345, NOTE: This is a HIGH ALERT Medication., 08/16/2016 8:23 AM LAST MARKER 60 mg isosorbide mononitrate SR (IMDUR) tablet Given 60 mg 60 mg, Oral, DAILY, First dose on 08/15/16 at 1415, Until Discontinued, DO NOT Crush tablets, 60 mg Given 08/15/2016 2:07 PM LAST MARKER 08/16/2016 8:23 AM LAST MARKER 20 mg lisinopril (PRINIVIL; ZESTRIL) tablet 20 Given mg 20 mg, Oral, DAILY, First dose on 08/14/16 at 0900, Until Discontinued 20 mg Given 08/15/2016 8:43 AM LAST MARKER 20 mg Given 08/14/2016 8:42 AM LAST MARKER 08/14/2016 12:45 PM LAST MARKER 0.1 mcg/kg/min 2.2 mL/hr nitroGLYCERIN 50 mg/D5W 250 mL infusion Dose/Rate 0.1-3 mcg/kg/min Verify 72.5 kg (2.175-65.25 mL/hr, rounded to 2.2-65.3 mL/hr) 250 mL, at 2.2-65.3 mL/hr, Intravenous, TITRATE DIRECTED , Starting Tue08/13/16 at 2130, Until 08/15/16 at 1310, Initiate at 0.1 mcg/kg/min Titrate to: Chest Pain NOTE: For weight-based dosing, use patient dosing weight., 0.1 mcg/kg/min 2.2 mL/hr Dose/Rate Verify 08/14/2016 7:34 AM LAST MARKER 0.1 mcg/kg/min 2.2 mL/hr Given - New Bag 08/13/2016 10:50 PM LAST MARKER 08/15/2016 9:00 PM LAST MARKER 4 mg ondansetron (ZOFRAN) tablet 4 mg Given 4 mg, Oral, EVERY 6 HOURS PRN, Starting Tue08/13/16 at 2222, Until 08/16/16 at 1848, Nausea, Vomiting 08/16/2016 8:23 AM LAST MARKER [address] (PROTONIX) tablet 40 mg Given 40 mg, Oral, DAILY, First dose on 08/14/16 at 0900, Until Discontinued, Do not crush or chew tablet., 40 mg Given 08/15/2016 8:42 AM LAST MARKER 40 mg Given 08/14/2016 8:42 AM LAST MARKER 08/14/2016 11:45 PM LAST MARKER 50 mL sodium chloride PF 0.9% injection 50 mL Given 50 mL, Intravenous, ONCE, 1 dose, 08/14/16 at 2345, Intra-procedure (IR) documented in this encounter
--- OUTSIDE RECORDS SUMMARY | 2018-12-06 21:02 | XMS REPORT | Encounter Summary ---
Author Author [facility] Organization [facility] Address Unknown Phone Unavailable Care Team Providers Care Embroidery Specialist Name Role Phone Leroy Lao MD 21 Silver Rabago DO PCP Encounter Details Care Team Description Date Type Department Melisa Ortiz MD [address] [facility] [place] [address] [phone] Left Heart Catheterization With Ventriculogram 08/14/2016 Surgery [facility] [address] [place] [address] Social History Date Tobacco Use Types Packs/Day [...] Comments Vital Sign 124/73 08/16/2016 1:06 PM ARTIFICIAL BREEDING TECHNICIAN Blood Pressure 68 08/16/2016 1:06 PM ARTIFICIAL BREEDING TECHNICIAN Pulse 36.9 C (98.5 F) 08/16/2016 1:06 PM ARTIFICIAL BREEDING TECHNICIAN Temperature - - Respiratory Rate 97% 08/16/2016 1:06 PM ARTIFICIAL BREEDING TECHNICIAN Oxygen Saturation - - Inhaled Oxygen Concentration 72.5 kg (159 lb 13.3 oz) 08/16/2016 12:19 PM ARTIFICIAL BREEDING TECHNICIAN Weight 175 cm (5' 8.9") 08/16/2016 12:19 PM ARTIFICIAL BREEDING TECHNICIAN Height 23.67 08/16/2016 12:19 PM ARTIFICIAL BREEDING TECHNICIAN Body Mass Index documented in this encounter Functional Status Date of Assessment Functional Status Response 08/13/2016 Does the patient have a hearing impairment: No documented as of this encounter Discharge Summaries * Shayy Gonzales MD - 08/16/2016 4:48 PM ARTIFICIAL BREEDING TECHNICIAN Physician Discharge Summary Name: Kaz Restrepo Date Of : 1960 Age: 56 years Admit date: 08/13/2016 Discharge date: 08/16/2016 Attending Physician: Shayy Gonzales MD Service: Cardiology-[address] [place] [address]/[facility]- 2634 Physician Summary completed by: Leah [...] denies drug use 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 He reports history of chest pain since 2014. He underwent LHC at OSH on 07/29/2016 , which revealed chronic total occlusion of RCA and high grade lesion in LCX, al kelsey with moderate )605) lesion of mid LAD. Echo at that time showed EF 60%. Repe at C at time of PCI (08/10/2016) showed presence [...] started on heparin gtt and nitro gtt. FIRER HELPER Aspirin, plav ix, coreg, statin, lisinopril and norvasc were continued. Patient was taken for LHC, which revealed unchanged coronary anatomy with widely patent portion of RCA with some malpositioning of stents in mid/distal RCA from positive remodeling (per LHC report). Medical management was elected for this a lashawn given it's characteristics of chronic WILDLAND FIRE OPERATIONS SPECIALIST likely in a dissection plane. LCX and high OM/ramus were also noted to have disease and medical management was lve cted for these lesions as well. Mr. Restrepo was counseled on the importance of smo emmanuel cessation. ECHO on day of discharge revealed normal EF and LV outflow obstruction, which is unlikely to be a contributor to patient's chest discomfort, though recommend co nsidering starting diltiazem if patient continues to have chest discomfort relat ed to LVOT. Patient was discharged home on FIRER HELPER medication regimen of norvasc, ASA, atorvasta tin, carvedilol, plavix, fish oil, Imdur, lisniopril, nitrostat. Pantoprazole was changed to Omeprazole at patients' request. He has follow up [place] [facility]. 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 A t this point, I would recommend [...] with Dr. Simms, the alda german's primary elevating grader operator, today, who reviewed the images and [...] are being made. Melisa Ortiz MD KG/Patrick /[id number] P CC: - SILVER RABAGO Consults: None [...] HOURS (8:00 AM - 4:30 PM): Call [phone] and asked to be transferred to your discharge attending physic liam. - AFTER BUSINESS HOURS (4:30 PM - 8:00 AM, on weekends, or holidays): Call [phone] and ask the drapery operator to page the on-call doctor for the discha rge attending physician. Discharging attending physician: SHAYY GONZALES [[id number]] Cardiac Diet Limiting unhealthy fats and cholesterol [...] pa . Return Appointment 11/08/2016 11:15 AM [facility] Discharge Medication List START taking these [...] Fax Associated Diagnoses: Coronary artery disease of bois forte artery of bois forte heart w ith stable angina pectoris (HCC); [...] Fax Associated Diagnoses: Coronary artery disease of bois forte artery of bois forte heart w ith stable angina pectoris (HCC); [...] Time Provider Department Center 11/08/2016 11:15 AM David Simms MD [facility] Pending items needing follow up: None Signed: [...] Physician: Silver Rabago Verified Referring physicians: Silver Rabago DO Additional provider(s): David Simms MD FICIAL BREEDING TECHNICIAN documented in this encounter Medications at Time [...] tongue Coronary artery disease every 5 of bois forte artery of minutes as bois forte heart with stable needed for angina pectoris [...] mouth at Coronary artery disease bedtime of bois forte artery of daily. bois forte heart with stable angina pectoris (HCC), Essential [...] Clara Grayson RN - 08/16/2016 4:48 PM ARTIFICIAL BREEDING TECHNICIAN Cardiac Rehab Call Back Note:pt states he [...] site?No Do you want outpt cardiac rehab?No FICIAL BREEDING TECHNICIAN * Shayy Gonzales MD - 08/16/2016 4:48 PM ARTIFICIAL BREEDING TECHNICIAN Progress Note Name: Kaz Restrepo Admission Date: 08/13/2016 Admission Diagnosis: Unstable angina (HCC) [I20.0] LOS: 2 days Active Problems: Unstable angina (HCC) Assessment/Plan: Mr. Restrepo is a 56 yo male with HTN, HLD, GERD, CAD s/p PCI 07/2016 who was recent ly received LHC at [facility] 08/09/16 with plan for staged PCI and [...] BID # CAD S/p PCI 08/09/16 to WILDLAND FIRE OPERATIONS SPECIALIST of RCA, with known OM disease 07/2016 OSH ECHO with EF 60% >Continue FIRER HELPER aspirin,plavix, statin,coreg,lisinopril and norvasc # HTN / HLD >FIRER HELPER Amlodipine, Lisinopril >Atorvastatin 40mg # GERD >Protonix [...] no gross focal deficits LABS: Recent Labs 08/13/16220608/14/16 0433 08/15/16 0544 NA -- 138 136* K -- 4.0 4.7 CL -- 106 104 CO2 -- 25 26 GAP -- 7 6 BUN -- 22 [...] PRN, ondansetron Q6H PRN, traMADol Q6H PRN FICIAL BREEDING TECHNICIAN * Joan Weiner RN - 08/16/2016 4:45 PM ARTIFICIAL BREEDING TECHNICIAN Assumed care at 1335. Assessment complete and [...] at this time, will continue to monitor. FICIAL BREEDING TECHNICIAN * Shayy Gonzales MD - 08/16/2016 10:53 AM ARTIFICIAL BREEDING TECHNICIAN Cardiology Progress Note Today's Date: 08/16/2016 Name: Kaz Restrepo MR N: [id number] Admission Date: 08/13/2016 LOS: 3 days Assessment/Plan: coronary artery disease Active Problems: Unstable angina (HCC) Mr. Restrepo is a 56 yo male with HTN, HLD, GERD, CAD s/p PCI 07/2016 who was recent ly received LHC at [facility] 08/09/16 with plan for staged PCI and [...] 10/2016 CAD > S/p PCI 08/09/16 to WILDLAND FIRE OPERATIONS SPECIALIST of RCA, with known OM disease > 07/2016 OSH ECHO with EF 60% > Continue FIRER HELPER aspirin,plavix, statin,coreg,lisinopril and norvasc HTN / HLD >FIRER HELPER Amlodipine, Lisinopril >Atorvastatin 40mg GERD >Protonix Tobacco Use >Cessation counseling FEN: -IVF: None,Replace prn, cardiac diet PPx: Hep gtt Dispo: Discharge to home today with cardiology follow up Code Status: Full Leah Stark MD - PGY-1 [facility] Internal Medicne Pager Patient seen and discussed [...] Pertinent radiology reviewed. Leah Stark MD Pager [phone] FICIAL BREEDING TECHNICIAN * Haritha Mcknight RN - 08/16/2016 6:43 AM ARTIFICIAL BREEDING TECHNICIAN No acute events overnight. Assessments completed and documented per flowsheet. Tele on, SR. VSS. A&Ox4. RA. Pt denied pain. R groin incision C/D/I. Adequate UOP. No BM. No other needs voiced at this time. Call light within reach, will continue to mo nitor until report given to oncoming RN. FICIAL BREEDING TECHNICIAN * Joan Weiner RN - 08/15/2016 5:01 PM ARTIFICIAL BREEDING TECHNICIAN Assumed care at 1335. Assessment complete and documented per flowsheet. SR on tele. HR 60-70s. VSS per trend. AOx4. Puncture site C/D/I. No pain reported. Adequate UOP. +BM. Pt. UAL, call light within reach. No further orders at this time, will continue to monitor. FICIAL BREEDING TECHNICIAN * Ayo King MD - 08/15/2016 1:13 PM ARTIFICIAL BREEDING TECHNICIAN Progress Note Name: Kaz Restrepo MRN: [id number] Admission Date: 08/13/2016 Admission Diagnosis: Unstable angina (HCC) [I20.0] LOS: 2 days Active Problems: Unstable angina (HCC) Assessment/Plan: Mr. Restrepo is a 56 yo male with HTN, HLD, GERD, CAD s/p PCI 07/2016 who was recent ly received LHC at [facility] 08/09/16 with plan for staged PCI and [...] BID # CAD S/p PCI 08/09/16 to WILDLAND FIRE OPERATIONS SPECIALIST of RCA, with known OM disease 07/2016 OSH ECHO with EF 60% >Continue FIRER HELPER aspirin,plavix, statin,coreg,lisinopril and norvasc # HTN / HLD >FIRER HELPER Amlodipine, Lisinopril >Atorvastatin 40mg # GERD >Protonix # Tobacco Use >Cessation counseling FEN: -IVF: None,Replace prn, NPO PPx: Hep gtt Dispo: Admit to CV 1. Transfer to the floors Code Status: Full Patient seen and discussed with Dr. Christine Kraft DO Department of Internal Medicine [phone] Subjective: Kaz Restrepo is a 56 y.o. [...] no gross focal deficits LABS: Recent Labs 08/13/16220608/14/16 0433 08/15/16 0544 NA -- 138 136* K -- 4.0 4.7 CL -- 106 104 CO2 -- 25 26 GAP -- 7 6 BUN -- 22 [...] traMADol Q6H PRN Mahnaz Kraft DO PGY1 [facility] [phone] Staff: I have personally interviewed and examined [...] noted. Please see other note as well. FICIAL BREEDING TECHNICIAN * Claudette Mcdonald RN - 08/15/2016 12:12 PM ARTIFICIAL BREEDING TECHNICIAN Called to give report to ADITYA Green. Patient to go to [facility]. Room currently in [facility]. 1330 - Patient transferred to [facility] with belongings. NAD, VSS at time of transf er. FICIAL BREEDING TECHNICIAN * Ayo King MD - 08/15/2016 11:43 AM ARTIFICIAL BREEDING TECHNICIAN 56 yr old male with h/o CAD s/p recent stenting of RCA (WILDLAND FIRE OPERATIONS SPECIALIST), HTN, HLD. He was p lanned to [...] to tele. Advised strongly to quit smoking FICIAL BREEDING TECHNICIAN * Yary Hayes RN - 08/14/2016 8:39 PM ARTIFICIAL BREEDING TECHNICIAN 1999-Notified Dr. Lundy of CT of chest [...] restart heparin gtt 6 hours post hemostasis FICIAL BREEDING TECHNICIAN * Ayo King MD - 08/14/2016 7:01 AM ARTIFICIAL BREEDING TECHNICIAN General Progress Note Name: Kaz Restrepo Today's Date: 08/14/2016 Admission Date: 08/13/2016 LOS: 1 day Assessment/Plan: Active Problems: Unstable angina (HCC) Mr. Restrepo is a 56 yo male with HTN, HLD, GERD, CAD s/p PCI 07/2016 who was recent ly received LHC at [facility] 08/09/16 with plan for staged PCI and [...] nitro gtt CAD S/p PCI 08/09/16 to WILDLAND FIRE OPERATIONS SPECIALIST of RCA, with known OM disease 07/2016 OSH ECHO with EF 60% >Continue FIRER HELPER aspirin,plavix, statin,coreg,lisinopril and norvasc HTN / HLD >FIRER HELPER Amlodipine, Lisinopril >Atorvastatin 40mg GERD >Protonix Tobacco [...] (97.7 F) (08/14 0400) Pulse: 58 (08/14 0500) Respirations: 16 PER MINUTE (08/13 2200) SpO2: 99 % (08/14 599) O2 Delivery: [...] Pertinent radiology reviewed. Rashid Marin DO Pager [phone] Staff: I have personally interviewed and examined [...] noted. Please see other note as well. FICIAL BREEDING TECHNICIAN * Yary Hayes RN - 08/13/2016 9:02 PM ARTIFICIAL BREEDING TECHNICIAN 5-Pt arrived via transport. Pt belongings with pt. Pt awake and alert. VS sta ble 2100-Dr. Walton at bedside to assess pt 0150-Dr. Lundy notified of troponin of 0.06 and now 0.07. Orders received 0600-Notified Dr. Walton of pt would like something more than tylenol for pa in to relieve his headache. Continue to monitor. FICIAL BREEDING TECHNICIAN documented in this encounter H&P Notes * Ayo King MD - 08/13/2016 9:29 PM ARTIFICIAL BREEDING TECHNICIAN CARDIOLOGY H&P CC: Chest pain/heaviness History of [...] He underwent a successful PCI to RCA WILDLAND FIRE OPERATIONS SPECIALIST on 08/09/16 with a plan for staged PCI o f OM1 in 2 weeks. He was discharged home on 08/10 and felt ok for a day or so and then started to have chest pressure/heaviness and was readmitted to [facility] in [place], [place] on 08/12 and despite medical treatment there, he continued to h ave chest pain and was transferred here. Of, note he has had chest pain since 2014 on and off which got worse prior to di [facility] in 07/2016. He continues to smoke little [...] heparin gtt and nitro gtt --> Continue FIRER HELPER aspirin,plavix, statin,coreg,lisinopril and norvasc -->Continue protonix daily -->Repeat ecg in am, Check troponin x1 -->Plan for staged PCI of OM per interventional team Thank you for allowing us to participate in the care of this patient. Discussed with who agrees with plan above. Tanvir Walton M.D. Fellow in Cardiovascular Diseases Beeper # [phone] Home Medications Prescriptions prior to admission Medication [...] [98 %] O2 Delivery: [-] Filed Vitals: 02/24/17 2100 Weight: 72.5 kg (159 lb 13.3 [...] h/o CAD s/p recent stenting of RCA (WILDLAND FIRE OPERATIONS SPECIALIST), HTN, HLD. He was p lanned to have staged PCI of 80-90% proximal OM, was having pressure type CP sin ce discharge 4-8/10, worse yesterday and went to local hosp [...] amlodipine - Echo to assess LV function FICIAL BREEDING TECHNICIAN documented in this encounter Procedure Notes * Melisa Ortiz MD - 08/14/2016 3:57 PM ARTIFICIAL BREEDING TECHNICIAN Associated Order(s): CARDIAC CATH REPORT [facility] CARDIAC CATHETERIZATION REPORT Page 3 KAZ Diaz : 1960 #: [id number] MR #/Billing ID #: [id number] / [id number] DATE: 08/14/2016 NON DESTRUCTIVE TESTING TECHNICIAN: Melisa Ortiz MD DICTATING PROVIDER: Melisa Ortiz [...] He went to a local hospital in [place], [place]. He was put on IV nitroglycerin [...] with a micropuncture ne edle and a 5-Libyan short sheath was advanced. A Vaimicom wire was used, because t here was [...] the patient was salazar sferred out of labeler in stable condition. TOTAL CONTRAST USED: 60 [...] a dissection plane site during the complex WILDLAND FIRE OPERATIONS SPECIALIST. At this point, I would recommend conservative [...] I discussed this with Dr. Simms, the [facility]'s primary elevating grader operator, today, who reviewed the images and [...] are being made. Melisa Ortiz MD KG/Patrick /[id number] p cc: - SILVER RABAGO FICIAL BREEDING TECHNICIAN documented in this encounter Miscellaneous Notes * Care Plan - Joan Weiner RN - 08/16/2016 4:48 PM ARTIFICIAL BREEDING TECHNICIAN Problem: Discharge Planning Goal: Participation in plan of care Outcome: Goal Achieved Date Met: 08/16/16 IV and tele removed, DC orders gone over with patient, no questions FICIAL BREEDING TECHNICIAN * Case Mgmt DC Plan - Elisabeth Garza RN - 08/16/2016 4:40 PM ARTIFICIAL BREEDING TECHNICIAN Case Management Progress Note NAME:Kaz Restrepo :[birth year] [...] however it is subject to change th rough the company. Both pt and spouse verbalized understanding. Pt plans to fill his plavix at [facility], he is aware of the importance of [...] Care Elisabeth Garza RN, BSN Cardiology Nurse Utility Mechanic Supervisor pager: [phone] FICIAL BREEDING TECHNICIAN * Care Plan - Joan Weiner RN - 08/15/2016 3:35 PM ARTIFICIAL BREEDING TECHNICIAN Problem: Discharge Planning Goal: Participation in plan of care Outcome: Goal Ongoing POC reviewed with patient, no questions at this time Problem: Pain Goal: Management of pain Outcome: Goal Ongoing Pain controlled Problem: Respiratory Impairment (Non-Ventilated Patient) Goal: Effective gas exchange Outcome: Goal Ongoing Tolerating RA FICIAL BREEDING TECHNICIAN * Care Plan - Claudette Mcdonald RN - 08/15/2016 9:32 AM ARTIFICIAL BREEDING TECHNICIAN Problem: Discharge Planning Goal: Participation in plan [...] methods Outcome: Goal Ongoing Materials at bedside. FICIAL BREEDING TECHNICIAN * Care Plan - Yary Hayes RN - 08/15/2016 4:32 AM ARTIFICIAL BREEDING TECHNICIAN Problem: Discharge Planning Goal: Participation in plan of care Outcome: Goal Ongoing Discharge pending, asks questions appropriately Problem: Pain Goal: Management of pain Outcome: Goal Ongoing Encourage to speak up, pain meds per MD order, hourly rounding Problem: Skin Integrity Goal: Skin integrity intact Outcome: Goal Ongoing Encourage activity FICIAL BREEDING TECHNICIAN * Case Mgmt DC Plan - Gilma Lawrence - 08/14/2016 10:44 AM ARTIFICIAL BREEDING TECHNICIAN Case Management Admission Assessment NAME:Kaz Restrepo : 2 AGE: 56 y.o. ADMISSION DATE: 08/13/2016 DAYS ADMITTED: LOS: 1 day Todays Date: 08/14/2016 Source of Information: This NCM assisting primary NCM, Elisabeth Garza ([phone]), in c ompleting initial NCM Assessment. This NCM met with pt at bedside. Introduced self and role. Pt's significant other, Yanelis, at bedside. This NCM received p ermission from the pt to discuss DC planning in front of pt's visitor. Pt resti ng in bed. Able to answer all questions. Per H&P, "56 y.o. male who was admitted 08/13/2016 for staged PCI, in the setting of persistent chest pain." Plan Plan: CM Assessment, Assist PRN with SW/NCM Services, Discharge Planning for Tuyet rasheed Anticipated Pt lives in a private home in [place], [place] with his significant other, Yanelis lassiter. There are 4-5 steps to enter the home. Once inside, pt can complete all ADLs on one level of the home. Pt is independent with ADLs. Currently unemplo yetrae. Pt is able to drive, however, his significant other, Yanelis, will drive hi m home on DC. Pt's PCP is Dr. Silver Rabago. Pt last saw Dr. Rabago last Tuesday. Pt a lso follows with Dr. Tashia Harper, Dietitian in [place], [place]. Pt has a cane and walker that he does not use. Ambualtes independently FIRER HELPER/ Pt has never had HH services. Pt has never stayed in a SNF / LTACH / IPR / NH. Pt has never had home IV or enteral infusions in the past. Pt confirms that he is uninsured. Pt reports that he fills his prescriptions a t the [facility] in [place], [place]. Pt reports that he pays OOP for his me dications. Pt reports he tries to stay on the $4.99 list. Pt may need assistan ce with medications on DC. Discharge Plan: Plans for pt to return home with self care and assistance from his significant other, Yanelis Verna. Pt may need assistance with medications o n discharge. Primary NCM / SW will continue to assess. Pt's S.O., charo Hilario drive the pt home on DC. Primary NCM, Elisabeth Garza ([phone]), will continue to f [facility] for DC Planning. Emergency Contact Extended Emergency Contact Information Primary Emergency Contact: Kirti Restrepo [facility] Relation: Mother Secondary Emergency Contact: Yanelis Gillespie [facility] Mobile Relation: Significant Other DPOA Transportation Does the patient need discharge transport arranged?: No Transportation #1: Name: Yanelis Gillespie Transportation #1: Phone #: [phone] Transportation #1: Availability for transport (times): anytime [...] he fills his prescriptions a t the [facility] in [place], [place]. Pt reports that he pays OOP for his me dications. Pt reports he tries to stay on the $4.99 list. Pt may need assistan ce with medications on DC. ? Source of Income Source Of Income: Unemployed ? Financial Assistance Needed? none Current/Previous Services ? PCP Silver Rabago - Pt last saw PCP last Tuesday. CARDIOLOGY: Dr. Tashia Harper ([phone]) - Dietitian in [place], [place] ? DME DME at home: [employer] - Pt does not use ? Home Health Receiving home health: No ? HD or PD Undergoing hemodialysis or peritoneal dialysis: No ? Tube/Enteral Feeds Receive tube/enteral feeds: No ? Infusion Receive infusions: No ? Private Duty Private duty help used: No ? HCBS Home and community based services: No ? Jorge Luis Kang White: N/A ? Hospice Hospice: No ? Outpatient Therapy PT: No OT: No SOCCER BALL ASSEMBLER: No ? SNF/NH SNF: No NH: No [...] Suspected Abuse?: No KRISTEN Michael, RN Nurse Utility Mechanic Supervisor - Med 1 Service Pager: [phone] FICIAL BREEDING TECHNICIAN * Care Plan - Yary Hayes RN - 08/14/2016 12:22 AM ARTIFICIAL BREEDING TECHNICIAN Problem: Discharge Planning Goal: Participation in plan of care Outcome: Goal Ongoing Discharge pending, asks questions appropriately Problem: Pain Goal: Management of pain Outcome: Goal Ongoing Pain meds per MD order, encourage to speak up, hourly rounding Problem: Skin Integrity Goal: Skin integrity intact Outcome: Goal Ongoing Encourage activity FICIAL BREEDING TECHNICIAN documented in this encounter Plan of Treatment Order Schedule Name Type Priority Associated Diagnoses Daily, Non Specified for 1 Occurrences starting 08/14/2016 until 08/14/2016 ECG 12-LEAD ECG Routine documented as of this encounter Procedures Comments Procedure Name Priority Date/Time Associated Diagnosis ECG-SCAN 08/21/2016 2:38 PM ARTIFICIAL BREEDING TECHNICIAN ECG UNCONFIRMED-SCAN 08/18/2016 2:45 PM ARTIFICIAL BREEDING TECHNICIAN TELEMETRY STRIPS-SCAN 08/18/2016 2:27 PM ARTIFICIAL BREEDING TECHNICIAN PROCEDURE RECORD-SCAN 08/18/2016 2:20 PM ARTIFICIAL BREEDING TECHNICIAN 2-D + DOPPLER Routine 08/16/2016 ECHOCARDIOGRAM 12:19 PM ARTIFICIAL BREEDING TECHNICIAN CARDIAC CATH REPORT 08/16/2016 9:03 AM ARTIFICIAL BREEDING TECHNICIAN CBC Routine 08/16/2016 4:46 AM ARTIFICIAL BREEDING TECHNICIAN MAGNESIUM Routine 08/16/2016 4:46 AM ARTIFICIAL BREEDING TECHNICIAN BASIC METABOLIC PANEL Routine 08/16/2016 4:46 AM ARTIFICIAL BREEDING TECHNICIAN PTT (APTT) STAT 08/15/2016 5:44 AM ARTIFICIAL BREEDING TECHNICIAN CBC Routine 08/15/2016 5:44 AM ARTIFICIAL BREEDING TECHNICIAN MAGNESIUM Routine 08/15/2016 5:44 AM ARTIFICIAL BREEDING TECHNICIAN BASIC METABOLIC PANEL Routine 08/15/2016 5:44 AM ARTIFICIAL BREEDING TECHNICIAN CTA CHEST WO/W Routine 08/14/2016 CONTRAST+POST IMPRESSION 11:41 PM ARTIFICIAL BREEDING TECHNICIAN TROPONIN-I STAT 08/14/2016 6:50 PM ARTIFICIAL BREEDING TECHNICIAN POC ACTIVATED CLOTTING 08/14/2016 TIME 3:27 PM ARTIFICIAL BREEDING TECHNICIAN PTT (APTT) STAT 08/14/2016 11:55 AM ARTIFICIAL BREEDING TECHNICIAN URINALYSIS, MICROSCOPIC Routine 08/14/2016 7:23 AM ARTIFICIAL BREEDING TECHNICIAN URINALYSIS DIPSTICK Routine 08/14/2016 7:23 AM ARTIFICIAL BREEDING TECHNICIAN TROPONIN-I STAT 08/14/2016 4:33 AM ARTIFICIAL BREEDING TECHNICIAN PTT (APTT) STAT 08/14/2016 4:33 AM ARTIFICIAL BREEDING TECHNICIAN CBC Routine 08/14/2016 4:33 AM ARTIFICIAL BREEDING TECHNICIAN MAGNESIUM Routine 08/14/2016 4:33 AM ARTIFICIAL BREEDING TECHNICIAN BASIC METABOLIC PANEL Routine 08/14/2016 4:33 AM ARTIFICIAL BREEDING TECHNICIAN TROPONIN-I STAT 08/14/2016 12:30 AM ARTIFICIAL BREEDING TECHNICIAN ECG 12-LEAD STAT 08/13/2016 10:22 PM ARTIFICIAL BREEDING TECHNICIAN TROPONIN-I Add on 08/13/2016 10:07 PM ARTIFICIAL BREEDING TECHNICIAN PTT (APTT) STAT 08/13/2016 10:07 PM ARTIFICIAL BREEDING TECHNICIAN PROTIME INR (PT) Add on 08/13/2016 10:07 PM ARTIFICIAL BREEDING TECHNICIAN CBC STAT 08/13/2016 10:07 PM ARTIFICIAL BREEDING TECHNICIAN PHOSPHORUS Add on 08/13/2016 10:07 PM ARTIFICIAL BREEDING TECHNICIAN BNP (B-TYPE NATRIURETIC Add on 08/13/2016 PEPTI) 10:07 PM ARTIFICIAL BREEDING TECHNICIAN MAGNESIUM Add on 08/13/2016 10:07 PM ARTIFICIAL BREEDING TECHNICIAN GENERAL RAD CHEST Routine 08/12/2016 Diagnosis unknown EXTERNAL IMAGING 12:00 AM ARTIFICIAL BREEDING TECHNICIAN CT CHEST EXTERNAL IMAGING Routine 07/31/2016 Diagnosis unknown 10:50 PM ARTIFICIAL BREEDING TECHNICIAN GENERAL RAD CHEST Routine 07/31/2016 Diagnosis unknown EXTERNAL IMAGING 12:00 AM ARTIFICIAL BREEDING TECHNICIAN CT HEAD EXTERNAL IMAGING Routine 07/29/2016 Diagnosis unknown 12:15 AM ARTIFICIAL BREEDING TECHNICIAN GENERAL RAD CHEST Routine 07/29/2016 Diagnosis unknown EXTERNAL IMAGING 12:00 AM ARTIFICIAL BREEDING TECHNICIAN documented in this encounter Results * ECG-SCAN (08/21/2016 2:38 PM ARTIFICIAL BREEDING TECHNICIAN) Narrative Performed At Ordered by an unspecified provider. * ECG UNCONFIRMED-SCAN (08/18/2016 2:45 PM ARTIFICIAL BREEDING TECHNICIAN) Narrative Performed At Ordered by an unspecified provider. * TELEMETRY STRIPS-SCAN (08/18/2016 2:27 PM ARTIFICIAL BREEDING TECHNICIAN) Narrative Performed At Ordered by an unspecified provider. * PROCEDURE RECORD-SCAN (08/18/2016 2:20 PM ARTIFICIAL BREEDING TECHNICIAN) Narrative Performed At Ordered by an unspecified provider. * 2-D + DOPPLER ECHOCARDIOGRAM (08/16/2016 12:19 PM ARTIFICIAL BREEDING TECHNICIAN) BSA 1.88 m2 OTHER OUTSIDE LAB ECHO EF 60 % OTHER OUTSIDE LAB Referring Ayo King OTHER OUTSIDE Provider LAB CV ECHO PV OTHER OUTSIDE RISK MANAGEMENT SPECIALIST LAB Interp Only OTHER OUTSIDE Technical Lead LAB Height (in) in OTHER OUTSIDE LAB [...] gradient of LAB AV index OTHER OUTSIDE (bois forte) LAB AV mean mmHg OTHER OUTSIDE gradient [...] This study was read in conjunction with roll examiner, Dr. Hudson Monzon.I have personally reviewed the study and co-formulated the interpretation expressed in this report. Performing Organization Address City/State/Zipcode Phone Number OTHER OUTSIDE LAB * CARDIAC CATH REPORT (08/16/2016 9:03 AM ARTIFICIAL BREEDING TECHNICIAN) Transcriptions Melisa Ortiz MD - 08/14/2016 3:57 PM ARTIFICIAL BREEDING TECHNICIAN [facility] CARDIAC CATHETERIZATION REPORT Page 3 KAZ Diaz : 1960 #: [id number] MR #/Billing ID #: [id number] / [id number] DATE: 08/14/2016 NON DESTRUCTIVE TESTING TECHNICIAN: Melisa Ortiz MD DICTATING PROVIDER: Melisa Ortiz [...] He went to a local hospital in [place], [place]. He was put on IV nitroglycerin [...] obtained with a micropuncture needle and a 5-Libyan short sheath was advanced. A Storq wire [...] and the patient was transferred out of labeler in stable condition. TOTAL CONTRAST USED: 60 [...] a dissection plane site during the complex WILDLAND FIRE OPERATIONS SPECIALIST. At this point, I would recommend conservative [...] this with Dr. Simms, the patient's primary elevating grader operator, today, who reviewed the images and [...] are being made. Melisa Ortiz MD KG/Patrick /[id number] p cc: - SILVER RABAGO Performing Organization Address City/[facility]/[employer] [place] Phone Number OTHER OUTSIDE LAB * MAGNESIUM (08/16/2016 4:46 AM ARTIFICIAL BREEDING TECHNICIAN) Magnesium 1.8 1.6 - 2.6 mg/dL [facility] MAIN LAB Specimen Blood Performing Organization Address [facility] Phone Number MAIN LAB [address] [place] [address] * BASIC METABOLIC PANEL (08/16/2016 4:46 AM ARTIFICIAL BREEDING TECHNICIAN) Sodium 137 137 - 147 MMOL/L [facility] [...] >60 >60 mL/min [facility] MAIN LAB Comment: Citizen [place] The eGFR is not validated for use in drug dosing adjustments.Continue to use estimated creatinine clearance per dosing reference text.Please contact the Clinical Pharmacist for questions. eGFR >60 >60 mL/min [facility] MAIN LAB Citizen [place] Comment: The eGFR is not validated for use in drug dosing adjustments.Continue to use estimated creatinine clearance per dosing reference text.Please contact the Clinical Pharmacist for questions. Specimen Blood Performing Organization Address [facility]/Zipcode Phone Number [facility] MAIN LAB [address] [place] [address] * CBC (08/16/2016 4:46 AM ARTIFICIAL BREEDING TECHNICIAN) White Blood 5.7 4.5 - 11.0 K/UL [facility] MAIN LAB Cells RBC 3.84 (L) 4.4 - 5.5 M/UL [facility] MAIN [facility] Hemoglobin 11.7 (L) 13.5 - 16.5 GM/DL [facility] MAIN LAB Hematocrit 35.2 (L) 40 - 50 % [facility] MAIN [facility] MCV 91.6 80 - 100 FL [facility] MAIN LAB MCH 30.5 26 - 34 PG [facility] MAIN [facility] MCHC 33.3 32.0 - 36.0 G/DL [facility] MAIN [facility] RDW 13.2 11 - 15 % [facility] MAIN [facility] Platelet Count 280 150 - 400 K/UL [facility] MAIN [facility] MPV 8.0 7 - 11 FL [facility] MAIN LAB Specimen Blood Performing Organization Address City/[facility] Phone Number MAIN LAB [address] [place] [address] * PTT (APTT) (08/15/2016 5:44 AM ARTIFICIAL BREEDING TECHNICIAN) APTT 65.1 (H) 24.0 - 40.0 SEC MAIN LAB Specimen Blood Performing Organization Address City/[facility]/Zipcode Phone Number MAIN LAB [address] [place] [phone] * MAGNESIUM (08/15/2016 5:44 AM ARTIFICIAL BREEDING TECHNICIAN) Magnesium 2.1 1.6 - 2.6 mg/dL MAIN LAB Specimen Blood Performing Organization Address [facility] Phone Number MAIN LAB [address] [place] [address] * BASIC METABOLIC PANEL (08/15/2016 5:44 AM ARTIFICIAL BREEDING TECHNICIAN) Sodium 136 (L) 137 - 147 MMOL/L [facility] MAIN LAB Potassium 4.7 3.5 - 5.1 MMOL/L [facility] MAIN LAB Chloride 104 98 - 110 [...] >60 >60 mL/min [facility] MAIN LAB Comment: [place] The eGFR is not validated for use in drug dosing adjustments.Continue to use estimated creatinine clearance per dosing reference text.Please contact the Clinical Pharmacist for questions. eGFR >60 >60 mL/min [facility] MAIN LAB [place] Comment: The eGFR is not validated for use in drug dosing adjustments.Continue to use estimated creatinine clearance per dosing reference text.Please contact the Clinical Pharmacist for questions. Specimen Blood Performing Organization Address City/[facility]/Zipcode Phone Number MAIN LAB [address] [place] [phone] * CBC (08/15/2016 5:44 AM ARTIFICIAL BREEDING TECHNICIAN) White Blood 6.2 4.5 - 11.0 K/UL [...] MAIN LAB Specimen Blood Performing Organization Address [facility] Phone Number MAIN LAB [address] [place] [phone] * CTA CHEST WO/W CONTRAST+POST IMPRESSION (08/14/2016 11:41 PM ARTIFICIAL BREEDING TECHNICIAN) Specimen Impressions Performed At 1.Mild aortic valvular [...] Interface, Radiant Results - 08/15/2016 12:27 AM ARTIFICIAL BREEDING TECHNICIAN CTA CHEST CLINICAL HISTORY: 56-year-old male, CHEST [...] on 08/15/2016 12:23 AM. Dictated by Sagar Vleez M.D. on 08/14/2016 11:51 PM. Performing Organization Address [facility] Phone Number RAD RESULTS * TROPONIN-I (08/14/2016 6:50 PM ARTIFICIAL BREEDING TECHNICIAN) Pathologist [facility] Troponin-I 0.03 0.0 - 0.05 NG/ML MAIN LAB Specimen Blood Performing Organization [facility] Phone Number MAIN LAB [address] [place] [address] * POC ACTIVATED CLOTTING TIME (08/14/2016 3:27 PM ARTIFICIAL BREEDING TECHNICIAN) Activated 158 s MAIN LAB Clotting Time Specimen Performing Organization [facility] Phone Number [facility] [address] [place] [address] * PTT (APTT) (08/14/2016 11:55 AM ARTIFICIAL BREEDING TECHNICIAN) Pathologist [facility] APTT 39.9 24.0 - 40.0 SEC MAIN LAB Specimen Blood Performing Organization [facility] Phone Number [facility] [address] [place] [address] * URINALYSIS, MICROSCOPIC (08/14/2016 7:23 AM ARTIFICIAL BREEDING TECHNICIAN) WBCs,UA 10-20 0 - 2 /HPF MAIN LAB RBCs,UA 20-50 0 - 3 /HPF [facility] MAIN LAB MucousUA 1+ [facility] MAIN LAB Squamous 0-2 0 - 5 [facility] MAIN LAB Epithelial Cells Hyaline Cast 0-2 [facility] MAIN LAB Specimen Urine - Urine Performing Organization [facility] Phone Number MAIN LAB [address] [place] [phone] * URINALYSIS DIPSTICK (08/14/2016 7:23 AM ARTIFICIAL BREEDING TECHNICIAN) Color,UA YELLOW [facility] MAIN LAB Turbidity,UA CLEAR CLEAR-CLEAR [facility] MAIN LAB Specific 1.015 1.003 - 1.035 [facility] MAIN LAB Garrison-Urine pH,UA 6.0 5.0 - 8.0 K[facility] MAIN [...] Specimen Urine - Urine Performing Organization Address [facility] Phone Number MAIN LAB [address] [place] [phone] * PTT (APTT) (08/14/2016 4:33 AM ARTIFICIAL BREEDING TECHNICIAN) APTT 38.0 24.0 - 40.0 SEC MAIN LAB Specimen Blood Performing Organization Address [facility] Phone Number MAIN LAB [address] [place] [phone] * TROPONIN-I (08/14/2016 4:33 AM ARTIFICIAL BREEDING TECHNICIAN) Troponin-I 0.06 (H) 0.0 - 0.05 NG/ML MAIN LAB Specimen Blood Performing Organization Address [facility] Phone Number MAIN LAB [address] [place] [address] * MAGNESIUM (08/14/2016 4:33 AM ARTIFICIAL BREEDING TECHNICIAN) Magnesium 2.0 1.6 - 2.6 mg/dL [facility] MAIN LAB Specimen Blood Performing Organization Address [facility] Phone Number MAIN LAB [address] [place] [phone] * BASIC METABOLIC PANEL (08/14/2016 4:33 AM ARTIFICIAL BREEDING TECHNICIAN) Sodium 138 137 - 147 MMOL/L [facility] MAIN LAB Potassium 4.0 3.5 - 5.1 MMOL/L [facility] MAIN LAB Chloride 106 98 - 110 MMOL/L [facility] MAIN LAB CO2 25 21 - 30 [...] >60 >60 mL/min [facility] MAIN LAB Comment: [place] The eGFR is not validated for use in drug dosing adjustments.Continue to use estimated creatinine clearance per dosing reference text.Please contact the Clinical Pharmacist for questions. eGFR >60 >60 mL/min [facility] MAIN LAB [place] Comment: The eGFR is not validated for use in drug dosing adjustments.Continue to use estimated creatinine clearance per dosing reference text.Please contact the Clinical Pharmacist for questions. Specimen Blood Performing Organization Address City/[facility]/Zipcode Phone Number [facility] [address] [place] [address] * CBC (08/14/2016 4:33 AM ARTIFICIAL BREEDING TECHNICIAN) Pathologist [facility] White Blood 4.8 4.5 - 11.0 K/UL MAIN LAB Cells RBC 3.75 (L) 4.4 - 5.5 M/UL MAIN LAB Hemoglobin 11.6 (L) 13.5 - 16.5 GM/DL MAIN LAB Hematocrit 33.7 (L) 40 - 50 % MAIN LAB MCV 89.8 80 - 100 FL MAIN LAB MCH 30.8 26 - 34 PG MAIN LAB MCHC 34.3 32.0 - 36.0 G/DL MAIN LAB RDW 12.8 11 - 15 % MAIN LAB Platelet Count 283 150 - 400 K/UL MAIN LAB MPV 8.2 7 - 11 FL MAIN LAB Specimen Blood Performing Organization Address City/[facility]/Zipcode Phone Number MAIN LAB [address] [place] [address] * TROPONIN-I (08/14/2016 12:30 AM ARTIFICIAL BREEDING TECHNICIAN) Pathologist [facility] Troponin-I 0.07 (H) 0.0 - 0.05 NG/ML MAIN LAB Specimen Blood Performing Organization Address City/[facility]/Zipcode Phone Number MAIN LAB [address] [place] [address] * TROPONIN-I (08/13/2016 10:07 PM ARTIFICIAL BREEDING TECHNICIAN) Troponin-I 0.06 (H) 0.0 - 0.05 NG/ML MAIN LAB Specimen Performing Organization Address [facility] Phone Number MAIN LAB [address] [place] [address] * PROTIME INR (PT) (08/13/2016 10:07 PM ARTIFICIAL BREEDING TECHNICIAN) INR 1.0 0.8 - 1.2 MAIN LAB Specimen Performing Organization Address [facility] Phone Number MAIN LAB [address] [place] [address] * PHOSPHORUS (08/13/2016 10:07 PM ARTIFICIAL BREEDING TECHNICIAN) Phosphorus 3.6 2.0 - 4.0 MG/DL MAIN LAB Specimen Performing Organization Address [facility] Phone Number MAIN LAB [address] [place] [address] * MAGNESIUM (08/13/2016 10:07 PM ARTIFICIAL BREEDING TECHNICIAN) Magnesium 1.8 1.6 - 2.6 mg/dL MAIN LAB Specimen Performing Organization Address [facility] Phone Number MAIN LAB [address] [place] [address] * BNP (B-TYPE NATRIURETIC PEPTI) (08/13/2016 10:07 PM ARTIFICIAL BREEDING TECHNICIAN) B Type 22.0 0 - 100 PG/ML MAIN LAB Natriuretic Peptide Specimen Performing Organization Address [facility] Phone Number MAIN LAB [address] [place] [address] * PTT (APTT) (08/13/2016 10:07 PM ARTIFICIAL BREEDING TECHNICIAN) APTT 27.8 24.0 - 40.0 SEC MAIN LAB Specimen Blood Performing Organization Address [facility] Phone Number MAIN LAB [address] [place] [address] * CBC (08/13/2016 10:07 PM ARTIFICIAL BREEDING TECHNICIAN) White Blood 6.2 4.5 - 11.0 K/UL MAIN LAB Cells RBC 3.77 (L) 4.4 [...] Organization Address City/State/Zipcode Phone Number MAIN LAB [address] [place] [address] * GENERAL RAD CHEST EXTERNAL IMAGING (08/12/2016 12:00 AM ARTIFICIAL BREEDING TECHNICIAN) Specimen Narrative Performed At This order has been auto finalized and does not contain a result. * CT CHEST EXTERNAL IMAGING (07/31/2016 10:50 PM ARTIFICIAL BREEDING TECHNICIAN) Specimen Narrative Performed At This order has been auto finalized and does not contain a result. * GENERAL RAD CHEST EXTERNAL IMAGING (07/31/2016 12:00 AM ARTIFICIAL BREEDING TECHNICIAN) Specimen Narrative Performed At This order has been auto finalized and does not contain a result. * CT HEAD EXTERNAL IMAGING (07/29/2016 12:15 AM ARTIFICIAL BREEDING TECHNICIAN) Specimen Narrative Performed At This order has been auto finalized and does not contain a result. * GENERAL RAD CHEST EXTERNAL IMAGING (07/29/2016 12:00 AM ARTIFICIAL BREEDING TECHNICIAN) Specimen Narrative Performed At This order has been auto finalized and does not contain a result. documented in this encounter Visit Diagnoses Not on filedocumented in this encounter Admitting Diagnoses Diagnosis Unstable angina (HCC) Intermediate coronary syndrome documented in this encounter
--- OUTSIDE RECORDS SUMMARY | 2018-12-06 21:02 | XMS REPORT | Encounter Summary ---
Author Author [facility] Organization [facility] Address Unknown Phone Unavailable Care Team Providers Care Sweatband Decorating Machine Operator Name Role Phone Leroy Lao MD [address] Hernandes DO PCP Reason for Visit * Reason Comments Chest Pain Encounter Details Care Team Description Date Type Department Hayden Holly, RN Chest Pain 08/12/2016 Telephone [facility] [address] [facility] [address] [place] [address] Social History Date Tobacco Use Types Packs/Day [...] history available. documented as of this encounter Miscellaneous Notes * Telephone Encounter - Hayden Holly, RN - 08/12/2016 1:44 PM PARTNER CCO Shereen left voicemail that patient has having "pain in his left side, sort of by his rib cage" and that he was looking pale today. Patient just got a stent plac ed on 08/10. Shereen is wondering if she should take patient to the hospital. Her call back number is [phone]. Spoke with Shereen, patient's fiance, and she states she took patient to [facility]. They are currently running tests. Patient is scheduled for intervention on obtuse marginal segment with Dr. Simms on 08/23. On 08/10, Chronic total occlusi on in the mid right coronary artery status post successful PCI with a 2.5 x 38 a nd 3.0 x 38 Xience drug-eluting stent from distal to proximal. I let Shereen del rosario I requested records from [facility] and will discuss with Dr. Simms. I asked her to keep us updated on patient and she agrees to plan. Routing to Dr. Simms and Colby Coffey, RN. NER CCO documented in this encounter Plan of Treatment Not on filedocumented as of this encounter Visit Diagnoses Not on filedocumented in this encounter
--- OUTSIDE RECORDS SUMMARY | 2018-12-06 21:02 | XMS REPORT | Encounter Summary ---
Author Author [facility] Organization [facility] Address Unknown Phone Unavailable Care Team Providers Care Urban Anthropologist Name Role Phone Leroy Lao MD 21 Silver Hernandes DO PCP Encounter Details Care Team Description Date Type Department Mukesh Simms MD [address] [facility] [place], [place] [id number] Coronary artery disease of [place] artery of [place] heart with stable angina pectoris (HCC) 08/09/2016 Hospital [facility] - Heart 08/10/2016 [facility] [address] [place] [address] Social History Date Tobacco Use Types Packs/Day [...] Signs Reading Time Taken Comments Vital Sign 142/80 08/10/2016 8:55 AM ACCOUNT CLERK Blood Pressure 71 08/10/2016 8:55 AM ACCOUNT CLERK Pulse 36.9 C (98.4 F) 08/10/2016 9:04 AM ACCOUNT CLERK Temperature - - Respiratory Rate 98% 08/10/2016 8:55 AM ACCOUNT CLERK Oxygen Saturation - - Inhaled Oxygen Concentration 72.2 kg (159 lb 2.8 oz) 08/09/2016 8:35 AM ACCOUNT CLERK Weight 175.3 cm (5' 9") 08/09/2016 8:35 AM ACCOUNT CLERK Height 23.51 08/09/2016 8:35 AM ACCOUNT CLERK Body Mass Index documented in this encounter Discharge Summaries * Sarah Camara PA-C - 08/10/2016 7:54 AM ACCOUNT CLERK Physician Discharge Summary Name: Kaz Restrepo Date Of : 1960 Age: 56 years Admit date: 08/09/2016 Discharge date: 08/10/2016 Attending Physician: Dr. Simms Service: Cardiology-Interventional Physician Summary completed by: Sarah Camara PA-C Reason for hospitalization: Coronary artery disease Significant PMH: Past Medical History Diagnosis Date Coronary artery disease 08/09/2016 Hypertension 08/09/2016 Hyperlipidemia 08/09/2016 GERD (gastroesophageal reflux disease) 08/09/2016 History of noncompliance with medical treatment 08/09/2016 Chest pain 08/09/2016 Tobacco abuse 08/09/2016 Elevated liver function tests History of methamphetamine abuse + UDS 09/2015 - pt denies drug use Allergies: Pcn Physical Exam notable for: R Groin no hematoma, no bruit, soft, non-tender. CV: RRR Lungs: CTA B Ext: no edema, + 2 b/l pedal pulses. ABD: Soft, non tender, + BS X 4 quads. Lab/Radiology studies notable for: Hematology: Lab Results Component Value Date HGB 12.1 08/10/2016 HCT 36.9 08/10/2016 PLTCT 288 08/10/2016 WBC 8.4 08/10/2016 MCV 91.9 08/10/2016 MCHC 32.9 08/10/2016 MPV 7.8 08/10/2016 RDW 12.9 08/10/2016 , General Chemistry: Lab Results Component Value Date NA 136 08/10/2016 K 4.5 08/10/2016 CL 105 08/10/2016 GAP 5 08/10/2016 BUN 21 08/10/2016 CR 1.07 08/10/2016 GLU 163 08/10/2016 CA 9.0 08/10/2016 ALBUMIN 4.3 08/09/2016 TOTBILI 0.4 08/09/2016 , Enzymes: Lab Results Component Value Date AST 39 08/09/2016 ALT 83 08/09/2016 ALKPHOS 156 08/09/2016 and Lipid Profile: Lab Results Component Value Date CHOL 204 08/09/2016 TRIG 137 08/09/2016 HDL 48 08/09/2016 LDL 126 08/09/2016 VLDL 27 08/09/2016 Brief Hospital Course: Mr. Restrepo is a 56 y.o male with a history of CAD, HTN, H LD, GERD and tobacco use. He recently underwent cardiac cath on 07/29/16 at [facility] du e to Chest pain. He was found to have a chronic total occlusion of the right cor onary artery and a high-grade lesion of the circumflex. The mid segment of the left anterior descending artery had a moderate lesion of about 60%. Of note, his ejection fraction is normal. He had an echocardiogram done revealing an EF of 60%. He continues to have chronic progressive angina and states really very little activity is required for him to feel poorly and feel as though he has a lot heaviness on his chest. He was referred to Dr. Simms. He will return in 2 weeks for an attempt at PCI of OM/Circ in 2 weeks. Written instructions were pro vided. Patient was taken to the cardiac catheterization lab on 07/2016 where coronary an giography revealed severe coronary artery disease. Chronic total occlusion in th e mid right coronary artery status post successful PCI with a 2.5 x 38 and 3.0 x 38 Xience drug-eluting stent from distal to proximal. 80% to 90% proximal 1st o btuse marginal stenosis. 50% to 60% diffuse mid intermediate ramus stenosis. Nor mal left ventricular end-diastolic pressures. Pt. Tolerated the procedure well. Lipid profile as above. We have increased his Atorvastatin to 40 mg daily. Alvin ght loss, Cardiac Healthy diet, and exercise when patient can tolerate. Patient to continue current medical therapy with aggressive risk factors modification. F/u w/ Dr. Simms in 4-6 weeks. Condition at Discharge: Stable Discharge Diagnoses: Hospital Problems Active Problems * (Principal)Coronary artery disease of [place] artery of [place] heart with stab le angina pectoris (HCC) Essential hypertension Mixed hyperlipidemia GERD (gastroesophageal reflux disease) Chest pain Tobacco abuse CAD (coronary artery disease) Surgical Procedures: None Significant Diagnostic Studies and Procedures: 1. Left heart catheterization. 2. Selective left and right coronary cineangiograms. 3. Successful revascularization of a chronic total occlusion of the mid right co ronary artery, initially with a retrograde approach but with a successful antegr bibi approach ultimately, utilizing a 2.5 x 38 Xience and 3.0 x 38 Xience drug-el uting stent from distal to proximal. Consults: None Patient Disposition: Home Patient instructions/medications: BASIC METABOLIC PANEL Standing Status: Future Standing Exp. Date: 08/10/17 Please have BMP & CBC drawn on 08/16 with results faxed to , Attn: Dr. Mendez ANDERSON Standing Status: Future Standing Exp. Date: 08/10/17 Please have BMP & CBC drawn on 08/16 with results faxed to , Attn: Dr. Simms Procedure Specific Activity *You may drive after 2 days. *You may shower after discharge. *NO tub baths, hot tubs, or swimming for 5 days. *NO lifting greater than 15 pounds for 1 week. *NO sexual or strenuous activity for 1 week. Report These Signs and Symptoms Please contact your doctor if you have any of the following symptoms: Chest pain , shortness of breath, lightheadedness, dizziness, near fainting, palpitations, abd pain, back pain, or bleeding. Questions About Your Stay For questions or concerns regarding your hospital stay: - DURING BUSINESS HOURS (8:00 AM - 4:30 PM): Call [phone] and asked to be transferred to your discharge attending physic liam. - AFTER BUSINESS HOURS (4:30 PM - 8:00 AM, on weekends, or holidays): Call [phone] and ask the regenerator operator to page the on-call doctor for the discha rge attending physician. Discharging attending physician: MUKESH SIMMS [[id number]] Cardiac Diet Limiting unhealthy fats and cholesterol [...] may contact a dietitian clif pa . CEA Education about Stroke you are at risk for stroke. It is important for you to recognize the signs of st roke and call 911 immediately. F.A.S.T. is an easy way to remember the sudden signs of a stroke. F - face drooping A - arm weakness S - speech difficulty T - TIME TO CALL 911 If you or anyone you know shows any of these signs, even if the signs go away, c all -- IMMEDIATELY. Check the time so you will know when the first sign start ed. [facility] [place] is a gathering place for individuals, families, and friends living with serious or chronic physical illness. They offer education and support pro grams that help you live your life to the fullest. Unless otherwise noted, prog gerardo are offered at NO CHARGE. However, REGISTRATION IS REQUIRED 48 hours in critical access hospital. To arrange for a tour, register for a class, or ask a questions please call [phone]. You can also visit [email or web address] for more information. Return Appointment Please see separate pre-procedure instructions for your scheduled procedure on . Provider MUKESH SIMMS [[id number]] Location [facility] Appointment date: 08/23/2016 Request for Cardiology Appointment Standing Status: Future Standing Exp. Date: 08/09/21 4 weeks Scheduling Priority: Routine Schedule OV with (1st choice Provider) Mukesh Simms M.D. Special Visit Type Post Hospital Follow-up Location of Appointment [facility] / Mon-Fri Current Discharge Medication List CONTINUE these medications which have been CHANGED or REFILLED Details atorvastatin (LIPITOR) 40 mg tablet Take 1 Tab by mouth at bedtime daily. Qty: 90 Tab, Refills: 3 PRESCRIPTION TYPE: Fax This prescription was faxed to the pharmacy Pharmacy: [facility] #[id number] - [address] (Ph #: [phone]) Associated Diagnoses: Coronary artery disease of [place] artery of [place] heart w ith stable angina pectoris (HCC); Essential hypertension; Mixed hyperlipidemia; Gastroesophageal reflux disease, esophagitis presence not specified; Ischemic ch est pain (HCC); Tobacco abuse; History of noncompliance with medical treatment clopiDOGrel (PLAVIX) 75 mg tablet Take 1 Tab by mouth daily. Qty: 90 Tab, Refills: 3 PRESCRIPTION TYPE: Fax This prescription was faxed to the pharmacy Pharmacy: [facility] #[id number] [address] (Ph #: [phone]) Associated Diagnoses: Coronary artery disease of [place] artery of [place] heart w ith stable angina pectoris (HCC); Essential hypertension; Mixed hyperlipidemia; Gastroesophageal reflux disease, esophagitis presence not specified; Ischemic ch est pain (HCC); Tobacco abuse; History of noncompliance with medical treatment nitroglycerin (NITROSTAT) 0.[address] 1 Tab under tongue every 5 minutes as needed for Chest Pain. Max of 3 tablets, call 911. Qty: 25 Tab, Refills: 3 PRESCRIPTION TYPE: Fax This prescription was faxed to the pharmacy Pharmacy: [facility] #[id number] [address] ( #: ) Associated Diagnoses: Coronary artery disease of [place] artery of [place] heart w ith stable angina pectoris (HCC); Essential hypertension; Mixed hyperlipidemia; Gastroesophageal reflux disease, esophagitis presence not specified; Ischemic ch est pain (HCC); Tobacco abuse; History of noncompliance with medical treatment CONTINUE these medications which have NOT CHANGED Details amLODIPine (NORVASC) 10 mg tablet Take 10 mg by mouth daily. PRESCRIPTION TYPE: Historical Med aspirin EC 81 mg tablet Take 81 mg by mouth daily. Take with food. PRESCRIPTION TYPE: Historical Med carvedilol (COREG) 12.5 mg tablet Take 6.25 mg by mouth twice daily with meals. Take with food. PRESCRIPTION TYPE: Historical Med DOCOSAHEXANOIC ACID/EPA (FISH OIL PO) Take 1,000 mg by mouth twice daily. PRESCRIPTION TYPE: Historical Med lisinopril (PRINIVIL; ZESTRIL) 20 mg tablet Take 20 mg by mouth daily. PRESCRIPTION TYPE: Historical Med pantoprazole DR (PROTONIX) 40 mg tablet Take 40 mg by mouth daily. PRESCRIPTION TYPE: Historical Med No future appointments. Pending items needing follow up: as above Signed: Sarah Camara PA-C 08/10/2016 cc: Primary Care Physician: Silver Hernandes Verified Referring physicians: Mukesh Simms MD Additional provider(s): UNT CLERK documented in this encounter Discharge Instructions * Patient Instructions* Gin Mccurdy RN - 08/10/2016 7:11 AM ACCOUNT CLERK Manual Sheath Removal From A Large Vein Or Artery-TUKH When you go home: You may shower 24 hours after your procedure. Do not sit in water for one week. (No bath tub, swimming pool/hot tub, etc.) Keep the area clean and dry for one week (except for daily showers). Be sure your hands are clean when touching near the site. If a band-aid or dressing is still in place remove it before showering. Wash and dry thoroughly but gently. If needed, for your comfort, you may place a clean band-aid over the puncture site after you are clean and dry. It is best to leave it open to air as soon as it is comfortable to do so. Do not use ointments, creams, or powders on puncture site. Inspect site daily. Activity: (Unless otherwise instructed or unable to perform) Avoid any exertion for one week. Exertion is lifting over 15 lbs or pushing, pulling or straining. Avoid excessive bending, stooping, or stair climbing for 2 days. It is ok to go up stairs or bend over but take it slowly and keep it to a minimum. You may be up and about while relaxing at home as you recover. You may resume sexual activity in one week. You may begin driving 2 days after your procedure if you are otherwise able t o drive. ---It is common to have mild soreness and/or a small, soft bruise around the sit e that can take up to two weeks to go away. A small (dime to quarter sized) lump is also normal. A small amount of blood (not more than a teaspoon) from the sit e is also common. WHEN TO CALL THE DOCTOR: Complications are rare but can happen. If you have significant bleeding (more than a teaspoon) or a lump underneath the skin (bigger than a golf ball) at the site lie down, apply firm pressure at the site and call 911. Bleeding from a large vessel needs professional help. If you have signs of infection at the site such as: redness, warm to touch, d rainage, increasing soreness, a fever (100 degrees or more) and/or chills. Soreness that continues more than a week or unusual pain at the puncture site . Numbness, tingling, weakness in the affected leg. If your leg becomes cold and pale. If you have changes of vision, slurred speech or one-sided weakness. Who do I contact if I need to speak with someone? During Business Hours: [facility] Cardiology Office at the [facility]: [phone] (Tuesday-Tuesday) [place]: [phone] (Tuesday-Tuesday) [place]: [phone] (Tuesday-Tuesday) [place]: [phone] (Tuesday and ) [place]: [phone] (Tuesday-Tuesday) [place]: [phone] (Tuesday-Tuesday) [place]: [phone] (Tuesday-) [facility] [address]: [phone] (Tuesday, Tuesday and Tuesday) [place]: [phone] (Tuesday, Tuesday and Tuesday) [place] ([place]): [phone] (Tuesday, Tuesday and Tuesday) Nights and Weekends [facility] Cardiology Office at the [facility]: [phone] This education is meant to serve as a resource to you and your family. It is not meant to be all inclusive. The members of the [facility] at [facility] Cardiology, , will be glad to answer any questions you may have about this booklet or your procedure. UNT CLERK documented in this encounter Medications at Time of Discharge Start Date End Date Medication Sig Dispensed Refills aspirin EC 81 mg tablet Take 81 mg by 0 mouth at bedtime daily. Take with food. 08/10/2016 nitroglycerin (NITROSTAT) Place 1 Tab 25 Tab 3 0.4 mg tabletIndications: under tongue Coronary artery disease every 5 of [place] artery of minutes as [place] heart with stable needed for angina pectoris [...] mouth at Coronary artery disease bedtime of [place] artery of daily. [place] heart with stable angina pectoris (HCC), Essential hypertension, Mixed hyperlipidemia, Gastroesophageal reflux disease, esophagitis presence not specified, Ischemic chest pain, Tobacco abuse, History of noncompliance with medical treatment 01/14/2017 carvedilol (COREG) 12.5 Take 6.25 mg 0 mg tablet by mouth twice daily with meals. Take with food. 08/10/2016 08/16/2016 clopiDOGrel (PLAVIX) 75 Take 1 Tab by 90 Tab 3 mg tabletIndications: mouth daily. Coronary artery disease of [place] artery of [place] heart with stable angina pectoris (HCC), Essential hypertension, Mixed hyperlipidemia, Gastroesophageal reflux disease, esophagitis presence not specified, Ischemic chest pain, Tobacco abuse, History of noncompliance with medical treatment 08/16/2016 DOCOSAHEXANOIC ACID/EPA Take 1,000 mg 0 (FISH OIL PO) by mouth twice daily. 11/08/2016 lisinopril (PRINIVIL; Take 20 mg by 0 ZESTRIL) 20 mg tablet mouth daily. 08/16/[address] Take 40 mg by 0 (PROTONIX) 40 mg tablet mouth daily. documented as of this encounter Progress Notes * Luan Sotelo RN - 08/10/2016 6:45 AM ACCOUNT CLERK Introduced self to patient and gave copy of the Heart Resource Manual pertaining to coronary interventions. I explained the role of Cardiac Rehab in his care. The patient said that he will be unable to do OPCR because he has no health insu poli. I reviewed the "Home Walking Program" with the patient. He is to return for additional stenting in a few weeks. UNT CLERK * Ghazal Noel RN - 08/09/2016 2:55 PM ACCOUNT CLERK CARDIOPULMONARY REHABILITATION INPATIENT ASSESSMENT Cardiac Rehabilitation Staff: Sahara Noel RN Discharge Date: Demographics Pre-admit Dx: Coronary Artery Disease Date of Admission: 08/09/2016 Room: CATH RM/CATH BD : 1960 Insurance: Primary: self pay Secondary: unknown Address: [address] [address] Patient (home) Marital Status: Single Occupation: Unknown ED Contact: Kirti Restrepo ED Phone #: [phone] CTS: CHRISSY Program Rep: Mendez Cardiac Procedures and Events PCI: 08/08/16 Risk Factors Risk Factors: Smoker, Hypertension, Hyperlipidemia BP: 124/74 mmHg Height: 175.3 cm (69") Weight: 72.2 kg (159 lb 2.8 oz) BMI (Calculated): 23.51 Medical History has a past medical history of Coronary artery disease (08/09/2016); Hypertension (08/09/2016); Hyperlipidemia (08/09/2016); GERD (gastroesophageal reflux disease) (08/09/2016); History of noncompliance with medical treatment (08/09/2016); Chest pain (08/09/2016); Tobacco abuse (08/09/2016); Elevated liver function tests; and History of methamphetamine abuse. Labs CHOLESTEROL Date Value Ref Range Status 08/09/2016 204* <200 MG/DL Final TRIGLYCERIDES Date Value Ref Range Status 08/09/2016 137 <150 MG/DL Final HDL Date Value Ref Range Status 08/09/2016 48 >40 MG/DL Final LDL Date Value Ref Range Status 08/09/2016 126* <100 MG/DL Final Heart Resource Manual Given: Teaching Completed: Outpatient Cardiopulmonary Rehabilitation OPCR: Referral Faxed to: Date Faxed: Location: If [facility], Sent to Staff: Ghazal Noel RN 08/09/2016 UNT CLERK * Tita Squires RN - 08/09/2016 10:31 AM ACCOUNT CLERK 0900- Bilateral femoral arteries auscultated no bruits noted. UNT CLERK * Tita Squires, RN - 08/09/2016 8:26 AM ACCOUNT CLERK 0825- Patient arrived on unit via ambulation. MAC office visit completed. Patien t transferred to the bed without assistance. Assessment completed, refer to kathryn wsheet for details. Orders released, reviewed, and implemented as appropriate. O riented to surroundings, call light within reach. Plan of care reviewed. Will c ontinue to monitor and assess. UNT CLERK * Tita Squires RN - 08/09/2016 7:28 AM ACCOUNT CLERK 0720- Pt arrived to CTR room 7. Upon arrival this RN inquired to see if pt has a lready been to scheduled pre-admit office visit. Pt states he has not been to of fice visit and was sent up to CTR when he checked in. Office visit confirmed with MAC, pt sent back to MAC office for scheduled appoi ntment. UNT CLERK documented in this encounter H&P Notes * Sarah Camara PA-C - 08/09/2016 9:10 AM ACCOUNT CLERK The original H and P below was performed by Dr. Simms. Sarah Camara PA-C (pgr [id number]) Mukesh Simms MD at 08/09/16 0741 Status: Sign at close encounter Expand All Collapse All Date of Service: 08/09/2016 Kaz Restrepo is a 56 y.o. male. HPI Mr. Restrepo is a 56-year-old male with a history of coronary artery disease who underwent a cardiac catheterization back on July 29, 2016. He was noted to have a chronic total occlusion of the right coronary artery and a high-grade le martha of the circumflex. The mid segment of the left anterior descending artery had a moderate lesion of about 60%. Of note, his ejection fraction is normal. He had an echocardiogram demonstrating an ejection fraction of 60%. He cont inues to have chronic progressive angina and states really very little activity is required for him to feel poorly and feel as though he has a lot heaviness on his chest. He has continued to smoke less than a pack per day. He is current ly on an antihypertensive regimen as well as a cholesterol regimen and his blood pressure is under good control today. He has no prior history predating this cardiac catheterization of having coronary disease and notes for the most part h wili has been healthy. He has no active bleeding problems. Denies any black sto ols or bright red blood in the stool. He is not actively being treated for can cer and does not know of any contraindications to anti-platelet therapy. He cabrera s no allergies to contrast dye. We did discuss the risks of proceeding with mi s cardiac catheterization today and revascularization attempt. He understands the risks and would like to go ahead and proceed. Filed Vitals: 08/09/16 0741 BP: 128/74 Pulse: 59 Height: 1.753 m (5' 9") Weight: 73.301 kg (161 lb 9.6 oz) Body mass index is 23.85 kg/(m^2). Past Medical History Patient Active Problem List Diagnosis Date Noted Coronary artery disease of [place] artery of [place] heart with stable angin a pectoris (HCC) 08/09/2016 07/29/16: heart cath ([place], [place]) - total occlusion of the right coronary artery, which is chronic total occlusion, getting collateral from the left system. Severe stenosis at the distal segment of a small proper circum flex artery, fairly small artery without success in crossing the lesion with a b alloon. 60% stenosis in the mid LAD confirmed by IVUS. Normal left ventricular s ize and systolic function, estimated EF 60%. Normal abdominal aorta and renal ar teries. Essential hypertension 08/09/2016 Mixed hyperlipidemia 08/09/2016 GERD (gastroesophageal reflux disease) 08/09/2016 History of noncompliance with medical treatment 08/09/2016 Chest pain 08/09/2016 Tobacco abuse 08/09/2016 Review of Systems Constitution: Negative. HENT: Negative. Eyes: Negative. Cardiovascular: Positive for chest pain, dyspnea on exertion and palpitations. Respiratory: Positive for shortness of breath. Endocrine: Negative. Hematologic/Lymphatic: Negative. Skin: Negative. Musculoskeletal: Negative. Gastrointestinal: Negative. Genitourinary: Negative. Neurological: Negative. Psychiatric/Behavioral: Negative. Allergic/Immunologic: Negative. Physical Exam Physical Exam General Appearance: no acute distress Skin: warm, moist, no ulcers Head: normocephalic Eyes: EOMI, PERRL ENT: unremarkable Neck Veins: neck veins are flat, neck veins are not distended Carotid Arteries: normal carotid upstroke bilaterally, no bruits Chest Inspection: chest is normal in appearance Auscultation/Percussion: lungs clear to auscultation, no rales, rhonchi, or whee zing Cardiac Rhythm: regular rhythm and normal rate Cardiac Auscultation: Normal S1 & S2, no S3 or S4, no rub Murmurs: no cardiac murmurs Extremities: no lower extremity edema bilaterally; 2+ symmetric distal pulses Abdominal Exam: soft, non-tender Neurologic Exam: neurological assessment grossly intact Mood and Affect: Appropriate Surgical History Past Surgical History Laterality Date Comments HIATAL HERNIA REPAIR[[id number]] Social History Category History Smoking Status Current Every Day Smoker; Types: Cigarettes Smokeless Tobacco Status Unknown Alcohol Use Yes; 0.0 oz alcohol/week; 0 Standard drinks or equivalent per week Drug Use No; (pt denies drug use but he had a + UDS for amphetamines and methamp hetamines in 10/03) Tobacco use Last reviewed 08/09/2016 Family History Relation Status Problems (Age of Onset) - (Comment) Mother Arthritis; Hyperlipidemia; Hypertension Sister COPD Cardiovascular Studies ECG - NSR - rate 59 Problems Addressed Today Encounter Diagnoses Name Primary? Coronary artery disease of [place] artery of [place] heart with stable angin a pectoris (HCC) Yes Ischemic chest pain (HCC) Essential hypertension Assessment and Plan He really cannot do much activity without having heaviness on his chest and he states that for the most part he chronically has chest heaviness, it just gets w orse with activity. He has intermittently had to take nitroglycerin. His car [place] [facility] chronic total occlusion of the right coronary artery. There are notable collaterals supplying the posterolateral vessel via the AV groove segment. In addition, he has a high-grade mid circumflex stenosi s of 95% involving this collateral as well. His left anterior descending has s everal large septal perforators which do not readily supply the posterior descen ding artery territory via collaterals. Our plan today will be to go ahead and get baseline imaging. I will gain access to the bilateral groins and we will a ttempt either a retrograde appeared to the right coronary artery followed by rev ascularization of the circumflex, or an antegrade option. I did discuss the po ssibility of requiring surgery or an emergency procedure. He certainly underst ands the risks and benefits after our extensive discussion today. We will plan to proceed. Current Medications (including today's revisions) No current outpatient prescriptions on file. .med Amlodipine 10 mg daily ASA 81 mg daily Atorvastatin 10 mg daily Carvedilol 6.25 mg daily Clopidogrel 71 mg daily Lisinopril 20 mg daily. Protonix 40 mg daily Tylenol PRN Milk of mag PRN UNT CLERK documented in this encounter Procedure Notes * Mukesh Simms MD - 08/09/2016 12:18 PM ACCOUNT CLERK Associated Order(s): CARDIAC CATH REPORT [facility] CARDIAC CATHETERIZATION REPORT Page 2 KAZ Diaz : 1960 #: [id number] MR #/Billing ID #: [id number] / [id number] DATE: 08/09/2016 GROCERY ASSOCIATE: Mukesh Simms MD DICTATING PROVIDER: Mukesh Simms MD REFERRING PHYSICIAN: Mukesh Simms MD PROCEDURES PERFORMED: 1. Left heart catheterization. 2. Selective left and right coronary cineangiograms. 3. Successful revascularization of a chronic total occlusion of the mid right co ronary artery, initially with a retrograde approach but with a successful antegr bibi approach ultimately, utilizing a 2.5 x 38 Xience and 3.0 x 38 Xience drug-el uting stent from distal to proximal. PROCEDURAL DETAILS: Mr. Restrepo is a 56-year-old male with a history of known cor onary artery disease and a chronic total occlusion of the mid right coronary art nupur as well as a high-grade lesion in the mid obtuse marginal branch. PCI was a ttempted at an outside facility and was transferred here for high-risk intervent ion so that surgical backup could be on site. Moderate IV conscious sedation wa s monitored and administered by myself, nursing and technical staff for a total duration of approximately 90 minutes. Oxygen saturation, heart rate, blood pres sure, and level of consciousness was assessed throughout the procedure and again at its completion. The bilateral groins were prepped and draped in typical fas hion. We infiltrated the right groin with approximately 20 mL of 1% lidocaine a nd initially advanced a 7-Serbian arterial sheath in the right common femoral art nupur. Selective left and right coronary cineangiograms were then performed utili angelica standard 5-Serbian diagnostic coronary catheters in various [place] proj ections as well as a left heart catheterization. This baseline information was then used for planning purposes. We then anesthetized the left groin with appro ximately 20 mL of 1% lidocaine and advanced a 2nd 7-Serbian arterial sheath. Hep angelica was then used to maintain a therapeutic ACT throughout the case. We advanc ed a 7-Serbian EBU 3.75 guide to the ostium of the left main and a 7-Serbian AR1 g uide to the ostium of the right coronary artery. Initially we attempted retrogr bibi revascularization given the antegrade appearance of the mid right coronary a rtery occlusion. A Corsair catheter and a Fielder FC were used, however, we emily e unsuccessful in advancing the Fielder FC into the right coronary artery in a r etrograde fashion. Ultimately we changed our approach, utilizing the Corsair ca theter and a Progress 40 wire and gaining access in an antegrade fashion. The C orsair catheter was advanced into the distal right coronary artery with a notabl e blood return, confirming we were intraluminal. We then exchanged out for a 0. 014 exchange length Luge wire. Predilatation was performed with a 2.0 x 20 ball oon on sequential inflations at 14-16 atmospheres. We then ultimately advanced a 2.5 x 38 Xience drug-eluting stent into the distal right coronary artery and d eployed this at 12 atmospheres. A 2nd 3.0 x 38 Xience drug-eluting stent was ad vanced covering back to the proximal segment and deployed at 12 atmospheres. Po stdilatation with a delivery balloon was then performed in the mid segment at 16 atmospheres. Angiographically, the stents were well apposed, however, slightly under-expanded at the mid segment. We readvanced a 3.0 x 15 NC balloon and pos t dilated at 18 atmospheres on sequential inflations. Angiographically, the hayden nt appeared to be well apposed and well expanded. We had no evidence of proxima l or distal edge dissection and brisk CHRYSTAL-3 [...] and intermediate ramus vessel. The left main it self was free of any angiographically significant disease. The LAD appeared to be a type 2 configuration, gave rise to a medium-sized diagonal branch proximall y. There was a long diffuse segment of disease throughout the mid segment of th e LAD which was about 50% to 60% angiographically. This involved the proximal a spect of the diagonal branch as well. b. The intermediate ramus was visualized and was noted to be a medium caliber ve ssel. There was a 50% to 60% stenosis in the mid segment of this intermediate r amus vessel as well. The circumflex gave rise to an AV groove collateral which supplied the posterolateral vessel. At the origin of the circumflex there appea red to be a 60% stenosis and in the mid segment of the circumflex as it continue d to the obtuse marginal there appeared to be an 80% to 90% stenosis. There wer e noted to be [id number]-[id number] collaterals via the AV groove segment and also from what appeared to be the septal perforators off the LAD. c. The [place] right coronary was visualized with the JR4 catheter. Technically, it was dominant based on the angiographic appearance from the left system. The [place] right coronary artery was occluded at the mid segment with no appreciabl e right to right collaterals. Post intervention, the [place] right coronary michael ry was a large caliber vessel, gave rise to a posterior descending and 2 postero lateral branches. The posterior descending and posterolateral branches did not demonstrate any high-grade focal irregularities. 2. Left heart catheterization. a. Left ventricular end-diastolic pressures were 6-8 mmHg. There was no gradien t across aortic valve. ASSESSMENT: 1. Severe coronary [...] post intervention and we will stage the interve ntion of the obtuse marginal segment. MD RAMIRO Quiroz/Patrick /[id number] cc: - Mukesh Simms MD UNT CLERK documented in this encounter Plan of Treatment Order Schedule Name Type Priority Associated Diagnoses Expected: 08/16/2016 (Approximate), Expires: 08/10/2017 BASIC METABOLIC PANEL Lab Routine Coronary artery disease of [place] artery of [place] heart with stable angina pectoris (HCC) Essential hypertension Mixed hyperlipidemia Gastroesophageal reflux disease, esophagitis presence not specified Ischemic chest pain (HCC) Tobacco abuse History of noncompliance with medical treatment Expected: 08/16/2016 (Approximate), Expires: 08/10/2017 CBC Lab Routine Coronary artery disease of [place] artery of [place] heart with stable angina pectoris (HCC) Essential hypertension Mixed hyperlipidemia Gastroesophageal reflux disease, esophagitis presence not specified Ischemic chest pain (HCC) Tobacco abuse History of noncompliance with medical treatment documented as of this encounter Procedures Comments Procedure Name Priority Date/Time Associated Diagnosis ECG-SCAN 08/12/2016 9:18 AM ACCOUNT CLERK ECG-SCAN 08/12/2016 9:18 AM ACCOUNT CLERK TELEMETRY STRIPS-SCAN 08/11/2016 11:29 AM ACCOUNT CLERK PROCEDURE RECORD-SCAN 08/11/2016 11:28 AM ACCOUNT CLERK ECG UNCONFIRMED-SCAN 08/11/2016 11:10 AM ACCOUNT CLERK ECG UNCONFIRMED-SCAN 08/11/2016 11:10 AM ACCOUNT CLERK ECG-SCAN 08/11/2016 11:09 AM ACCOUNT CLERK CARDIAC CATH REPORT 08/10/2016 4:40 PM ACCOUNT CLERK CBC 08/10/2016 4:30 AM ACCOUNT CLERK BASIC METABOLIC PANEL Routine 08/10/2016 Coronary artery disease 4:30 AM ACCOUNT CLERK of [place] artery of [place] heart with stable angina pectoris (HCC) Ischemic chest pain (HCC) POC ACTIVATED CLOTTING 08/09/2016 TIME 1:59 PM ACCOUNT CLERK POC ACTIVATED CLOTTING 08/09/2016 TIME 1:30 PM ACCOUNT CLERK POC ACTIVATED CLOTTING 08/09/2016 TIME 1:03 PM ACCOUNT CLERK POC ACTIVATED CLOTTING 08/09/2016 TIME 1:00 PM ACCOUNT CLERK CBC STAT 08/09/2016 8:45 AM ACCOUNT CLERK LIVER FUNCTION PANEL Add on 08/09/2016 8:45 AM ACCOUNT CLERK LIPID PROFILE Add on 08/09/2016 8:45 AM ACCOUNT CLERK BASIC METABOLIC PANEL STAT 08/09/2016 8:45 AM ACCOUNT CLERK documented in this encounter Results * ECG-SCAN (08/12/2016 9:18 AM ACCOUNT CLERK) Narrative Performed At Ordered by an unspecified provider. * ECG-SCAN (08/12/2016 9:18 AM ACCOUNT CLERK) Narrative Performed At Ordered by an unspecified provider. * TELEMETRY STRIPS-SCAN (08/11/2016 11:29 AM ACCOUNT CLERK) Narrative Performed At Ordered by an unspecified provider. * PROCEDURE RECORD-SCAN (08/11/2016 11:28 AM ACCOUNT CLERK) Narrative Performed At Ordered by an unspecified provider. * ECG UNCONFIRMED-SCAN (08/11/2016 11:10 AM ACCOUNT CLERK) Narrative Performed At Ordered by an unspecified provider. * ECG UNCONFIRMED-SCAN (08/11/2016 11:10 AM ACCOUNT CLERK) Narrative Performed At Ordered by an unspecified provider. * ECG-SCAN (08/11/2016 11:09 AM ACCOUNT CLERK) Narrative Performed At Ordered by an unspecified provider. * CARDIAC CATH REPORT (08/10/2016 4:40 PM ACCOUNT CLERK) Transcriptions Mukesh Simms MD - 08/09/2016 12:18 PM ACCOUNT CLERK [facility] CARDIAC CATHETERIZATION REPORT Page 2 KAZ RESTREPO Joe : 1960 JESSICA#: [id number] JESSICA MR #/Billing ID #: [id number] / [id number] DATE: 08/09/2016 GROCERY ASSOCIATE: Mukesh Simms MD DICTATING PROVIDER: Mukesh Simms MD REFERRING PHYSICIAN: Mukesh Simms MD PROCEDURES PERFORMED: 1. Left heart catheterization. 2. Selective left and right coronary cineangiograms. 3. Successful revascularization of a chronic total occlusion of the mid right coronary artery, initially with a retrograde approach but with a successful antegrade approach ultimately, utilizing a 2.5 x 38 Xience and 3.0 x 38 Xience drug- eluting stent from distal to proximal. PROCEDURAL DETAILS: [...] of approximately 90 minutes. Oxygen saturation, heart rate, blood pressure, and level of consciousness was assessed throughout the procedure and again at its completion. The bilateral groins were prepped and draped in typical fashion. We infiltrated the right groin with approximately 20 mL of 1% lidocaine and initially advanced a 7-Serbian arterial sheath in the right common femoral artery. Selective left and right coronary cineangiograms were then performed utilizing standard 5-Serbian diagnostic coronary catheters in various [place] projections as well as a left heart catheterization. This baseline information was then used for planning purposes. We then anesthetized the left groin with approximately 20 mL of 1% lidocaine and advanced a 2nd 7- [place] arterial sheath. Heparin was then used to maintain a therapeutic ACT throughout the case. We advanced a 7-Serbian EBU 3.75 guide to the ostium of the left main and a 7-Serbian AR1 guide to the ostium of the [...] 90% stenosis. There were noted to be gfgz-lv-vmtel collaterals via the AV groove segment and also from what appeared to be the septal perforators off the LAD. c. The [place] right coronary was visualized with the JR4 catheter. Technically, it was dominant based on the angiographic appearance from the left system. The [place] right coronary artery was occluded at the mid segment with no appreciable right to right collaterals. Post intervention, the [place] right coronary artery was a large caliber [...] the obtuse marginal segment. MD RAMIRO Quiroz/Patrick /[id number] cc: - Mukesh Simms MD Performing Organization Address City/State/Zipcode Phone Number OTHER OUTSIDE LAB * CBC (08/10/2016 4:30 AM ACCOUNT CLERK) [facility] White Blood 8.4 4.5 - 11.0 K/UL MAIN LAB Cells RBC 4.01 (L) 4.4 - 5.5 M/UL [facility] Hemoglobin 12.1 (L) 13.5 - 16.5 GM/DL MAIN LAB Hematocrit 36.9 (L) 40 - 50 % [facility] MCV 91.9 80 - 100 FL MAIN LAB MCH 30.2 26 - 34 PG MAIN LAB MCHC 32.9 32.0 - 36.0 G/DL MAIN LAB RDW 12.9 11 - 15 % [facility] Platelet Count 288 150 - 400 K/UL MAIN LAB MPV 7.8 7 - 11 FL MAIN LAB Specimen Performing Organization Address City/[facility]/Zipcode Phone Number [facility] [address] [place] [address] * BASIC METABOLIC PANEL (08/10/2016 4:30 AM ACCOUNT CLERK) Sodium 136 (L) 137 - 147 MMOL/L [facility] Potassium 4.5 3.5 - 5.1 MMOL/L [facility] Chloride 105 98 - 110 MMOL/L [facility] CO2 26 21 - 30 MMOL/L [facility] Anion Gap 5 3 - 12 [facility] Glucose 163 (H) 70 - 100 MG/DL [facility] Blood Urea 21 7 - 25 MG/DL [facility] Nitrogen Creatinine 1.07 0.4 - 1.24 MG/DL MAIN LAB Calcium 9.0 8.5 - 10.6 MG/DL MAIN LAB eGFR Non >60 >60 mL/min MAIN LAB Comment: [place] The eGFR is not validated for use in drug dosing adjustments.Continue to use estimated creatinine clearance per dosing reference text.Please contact the Clinical Pharmacist for questions. eGFR >60 >60 mL/min [facility] [place] Comment: The eGFR is not validated for use in drug dosing adjustments.Continue to use estimated creatinine clearance per dosing reference text.Please contact the Clinical Pharmacist for questions. Specimen Blood Performing Organization Address City/[facility]/Zipcode Phone Number [facility] [address] [phone] * POC ACTIVATED CLOTTING TIME (08/09/2016 1:59 PM ACCOUNT CLERK) Activated 157 s MAIN LAB Clotting Time Specimen Performing Organization Address City/[facility] Number [facility] LAB [address] [place] [address] * POC ACTIVATED CLOTTING TIME (08/09/2016 1:30 PM ACCOUNT CLERK) Activated 188 s MAIN LAB Clotting Time Specimen Performing Organization Address City/[facility] Phone Number MA[facility] LAB [address] [place] [address] * POC ACTIVATED CLOTTING TIME (08/09/2016 1:03 PM ACCOUNT CLERK) Activated 199 s MAIN LAB Clotting Time Specimen Performing Organization Address City/[facility] Phone Number MA[facility] LAB [address] [place] [address] * POC ACTIVATED CLOTTING TIME (08/09/2016 1:00 PM ACCOUNT CLERK) Activated 86 s MAIN LAB Clotting Time Specimen Performing Organization Address City/[facility] Phone Number MA[facility] LAB [address] [place] [address] * LIVER FUNCTION PANEL (08/09/2016 8:45 AM ACCOUNT CLERK) Total Bilirubin 0.4 0.3 - 1.2 MG/DL [facility] Bilirubin, <0.1 <0.4 MG/DL [facility] Direct Albumin 4.3 3.5 - 5.0 G/DL [facility] Alk Phosphatase 156 (H) 25 - 110 U/L [facility] AST (SGOT) 39 7 - 40 U/L [facility] ALT (SGPT) 83 (H) 7 - 56 U/L [facility] Total Protein 7.9 6.0 - 8.0 G/DL [facility] Specimen Performing Organization Address [facility] Cent[facility] Phone Number [facility] [address] [place] [address] * LIPID PROFILE (08/09/2016 8:45 AM ACCOUNT CLERK) Cholesterol 204 (H) <200 MG/DL [facility] Triglycerides 137 <150 MG/DL [facility] HDL 48 >40 MG/DL [facility] LDL 126 (H) <100 MG/DL [facility] VLDL 27 MG/DL [facility] Non HDL 156 MG/DL [facility] Cholesterol Comment: Calculated non-HDL Cholesterol (non-HDL-C) indirectly measures LDL-C, Lp(a), IDL-C, and VLDL-C.It is a surrogate marker for Apoprotein B.Non-HDL-C is a more accurate measure of atherogenic particle concentration than LDL-C in patients with hypertriglyceridemia (>200 mg/dL). This calculation is now recommended for evaluation and treatment of coronary heart disease according to the National Cholesterol Education Program Adult Treatment Protocol-III.See Holly et al. Am J. Cardiol. 2008, 101:9821-3944. The "goal" should be less than 130 mg/dL, but will vary according to risk factors. Specimen Performing Organization Address City/[facility] Cent[facility] Phone Number [facility] [address] [place] [address] * CBC (08/09/2016 8:45 AM ACCOUNT CLERK) White Blood 7.9 4.5 - 11.0 K/UL [facility] MAIN [facility] Cells RBC 4.36 (L) 4.4 - 5.5 M/UL [facility] Hemoglobin 13.5 13.5 - 16.5 GM/DL [facility] MAIN [facility] Hematocrit 39.5 (L) 40 - 50 % [facility]IN [facility] MCV 90.4 80 - 100 FL [facility]IN [facility] MCH 31.0 26 - 34 PG [facility] MCHC 34.3 32.0 - 36.0 G/DL [facility] RDW 12.9 11 - 15 % [facility] Platelet Count 352 150 - 400 K/UL [facility] MPV 8.2 7 - 11 FL [facility]IN [facility] Specimen Blood Performing Organization Address City/[facility]/Zipcode Phone Number [facility] [address] [place] [address] * BASIC METABOLIC PANEL (08/09/2016 8:45 AM ACCOUNT CLERK) Sodium 137 137 - 147 MMOL/L [facility] Potassium 4.4 3.5 - 5.1 MMOL/L [facility] Chloride 103 98 - 110 MMOL/L [facility] CO2 29 21 - 30 MMOL/L [facility] Anion Gap 5 3 - 12 [facility] Glucose 95 70 - 100 MG/DL [facility] Blood Urea 25 7 - 25 MG/DL [facility] Nitrogen Creatinine 1.19 0.4 - 1.24 MG/DL [facility] Calcium 9.6 8.5 - 10.6 MG/DL [facility] eGFR Non >60 >60 mL/min [facility] Comment: [place] The eGFR is not validated for use in drug dosing adjustments.Continue to use estimated creatinine clearance per dosing reference text.Please contact the Clinical Pharmacist for questions. eGFR >60 >60 mL/min [facility] [place] Comment: The eGFR is not validated for use in drug dosing adjustments.Continue to use estimated creatinine clearance per dosing reference text.Please contact the Clinical Pharmacist for questions. Specimen Blood Performing Organization Address City/[facility] Cent[facility]ode Phone Number MAIN LAB [address] [place] [address] documented in this encounter Visit Diagnoses Diagnosis Coronary artery disease of [place] artery of [place] heart with stable angina pectoris (HCC) - Primary Essential hypertension Unspecified essential hypertension Mixed hyperlipidemia Gastroesophageal reflux disease, esophagitis presence not specified Ischemic chest pain Chest pain, unspecified Tobacco abuse Tobacco use disorder History of noncompliance with medical treatment Personal history of noncompliance with medical treatment, presenting hazards to health documented in this encounter Administered Medications Action Date Dose Rate Site Medication Order MAR Action 08/09/2016 12:53 PM ACCOUNT CLERK 30 mL aluminum/magnesium hydroxide (MAALOX) Given oral suspension 30 mL 30 mL, Oral, EVERY 4 HOURS PRN, Starting Tue08/09/16 at 1209, Until Tue08/10/16 at 1135, Indigestion 08/10/2016 8:49 AM ACCOUNT CLERK 10 mg amLODIPine (NORVASC) tablet 10 mg Given 10 mg, Oral, DAILY, First dose on Tue08/09/16 at 1215, Until Discontinued, NURSING: Please educate patient and document: Do not give with grapefruit juice., Admission/Obs/Extended Recovery 08/10/2016 8:49 AM ACCOUNT CLERK 40 mg atorvastatin (LIPITOR) tablet 40 mg Given 40 mg, Oral, AT BEDTIME DAILY, First dose on Tue08/09/16 at 2100, Until Discontinued, Admission/Obs/Extended Recovery 40 mg Given 08/09/2016 9:21 PM ACCOUNT CLERK 08/10/2016 8:49 AM ACCOUNT CLERK 6.25 mg carvedilol (COREG) tablet 6.25 mg Given 6.25 mg, Oral, TWICE DAILY WITH MEALS, First dose on Tue08/09/16 at 1215, Until Discontinued, Hold for heart rate < 50 bpm or systolic BP < 90, Admission/Obs/Extended Recovery 6.25 mg Given 08/09/2016 9:22 PM ACCOUNT CLERK 08/10/2016 8:49 AM ACCOUNT CLERK 75 mg clopiDOGrel (PLAVIX) tablet 75 mg Given 75 mg, Oral, DAILY, First dose on Tue08/10/16 at 0900, Until Discontinued, 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 This Medication can increase the risk of bleeding and may need to be held prior to surgery or invasive procedures. Consult physician in advance., 08/09/2016 2:08 PM ACCOUNT CLERK 50 mcg fentaNYL citrate PF (SUBLIMAZE) Given injection 25-50 mcg 25-50 mcg, Intravenous, ONCE, 1 dose, Tue08/09/16 at 1245, Pain with sheath pull. Verbal order from Dr Simms., 08/09/2016 2:46 PM ACCOUNT CLERK 50 mcg fentaNYL citrate PF (SUBLIMAZE) Given injection 50 mcg 50 mcg, Intravenous, ONCE, 1 dose, Tue08/09/16 at 1500 08/10/2016 8:49 AM ACCOUNT CLERK 20 mg lisinopril (PRINIVIL; ZESTRIL) tablet 20 Given mg 20 mg, Oral, DAILY, First dose on Tue08/10/16 at 0900, Until Discontinued, Admission/Obs/Extended Recovery 08/09/2016 9:22 PM ACCOUNT CLERK [address] (PROTONIX) tablet 40 mg Given 40 mg, Oral, DAILY, First dose on Tue08/09/16 at 2100, Until Discontinued, Do not crush or chew tablet., Admission/Obs/Extended Recovery 08/09/2016 9:00 AM ACCOUNT CLERK 75 mL/hr sodium chloride 0.9 % infusion Given - New 1,000 mL, Intravenous, at 75 mL/hr, Bag CONTINUOUS, Starting Tue08/09/16 at 0745, Until Tue08/09/16 at 1211, If EF is <40%, contact CCL Charge Nurse [phone] before initiating fluid., Admission/Obs/Extended Recovery 08/09/2016 7:51 PM ACCOUNT CLERK 75 mL/hr sodium chloride 0.9 % infusion Given - New 1,000 mL, Intravenous, at 75 mL/hr, Bag CONTINUOUS, Starting Tue08/09/16 at 1215, Until Tue08/09/16 at 2014, Once patient out of bed, then saline lock and DC IV fluid. Hold maintenance IVF while sodium bicarbonate running (if ordered)., 75 mL/hr Dose/Rate Verify 08/09/2016 12:27 PM ACCOUNT CLERK 08/09/2016 9:22 PM ACCOUNT CLERK 15 mg temazepam (RESTORIL) capsule 15 mg Given 15 mg, Oral, AT BEDTIME PRN, Starting Tue08/09/16 at 0732, Until Tue08/10/16 at 1135, Insomnia, Admission/Obs/Extended Recovery documented in this encounter
--- OUTSIDE RECORDS SUMMARY | 2018-12-06 21:03 | XMS REPORT | Encounter Summary ---
Author Author [facility] Organization [facility] Address Unknown Phone Unavailable Care Team Providers Care Charting Clerk Name Role Phone Leroy Lao MD [address] Silver Hernandes DO PCP Reason for Visit * Reason Comments Patient Instructions Encounter Details Care Team Description Date Type Department Anastasia Coffey, RN Patient Instructions 08/04/2016 Telephone [facility] [address] [facility] [place] [address] Social History Date Tobacco Use Types Packs/Day Years Used Never Assessed Sex Assigned at Date Recorded Not on file Industry Job Start Date Occupation Not on file Not on file Not on file Travel End Travel History Travel Start No recent travel history available. documented as of this encounter Miscellaneous Notes * Telephone Encounter - Abigail Marie RN - 2016 8:34 AM SOLUTION ENGINEER Pt called nurse line late last night 08/05 and left a voicemail that he did recei ve [facility] cath instructions. TION ENGINEER * Telephone Encounter - Anastasia Coffey RN - 08/05/2016 4:32 PM SOLUTION ENGINEER Left a second message on patient's cell as we have not heard back from him. Let him know it is important he reach us so we can review pre-procedu re instructions and ensure he received them via e-mail. Connected with his kimberlye r @ . She states Rodrick is not available but she will pass along the message to please have him call us. TION ENGINEER * Telephone Encounter - Anastasia Coffey RN - 08/04/2016 6:42 PM SOLUTION ENGINEER LM for pt to please call to review pre-cath instructions & medications/allergies over the phone. E-mailed instructions to [email or web address] TION ENGINEER documented in this encounter Plan of Treatment Not on filedocumented as of this encounter Visit Diagnoses Not on filedocumented in this encounter
--- OUTSIDE RECORDS SUMMARY | 2018-12-06 21:03 | XMS REPORT | Encounter Summary ---
Author Author [facility] Organization [facility] Address Unknown Phone Unavailable Care Team Providers Care Senior Engineering Team Leader Name Role Phone PCP Unavailable Reason for Visit * Reason Comments Other approved for procedure Encounter Details Care Team Description Date Type Department Leigh Lawrence RN Other (approved for procedure) 08/03/2016 Telephone [facility] [address] [place] [address] Social History Date Tobacco Use Types Packs/Day Years Used Never Assessed Sex Assigned at Date Recorded Not on file Industry Job Start Date Occupation Not on file Not on file Not on file Travel End Travel History Travel Start No recent travel history available. documented as of this encounter Miscellaneous Notes * Telephone Encounter - Leigh Lawrence RN - 08/03/2016 3:48 PM ASSISTANT FINANCE DIRECTOR Pt's Mother called to report that she received a call today but did not know who from indicating that the procedure was approved to be done. States they will be here on 08/09/16 @ 7:15 AM. STANT FINANCE DIRECTOR documented in this encounter Plan of Treatment Not on filedocumented as of this encounter Visit Diagnoses Not on filedocumented in this encounter
--- OUTSIDE RECORDS SUMMARY | 2018-12-06 21:03 | XMS REPORT | Encounter Summary ---
Author Author [facility] Organization [facility] Address Unknown Phone Unavailable Care Team Providers Care Senior Care Assistant Name Role Phone Leroy Lao MD [address] Silver Hernandes DO PCP Reason for Visit * Reason Comments New Patient PAINT PREPPER RCA/Circ Encounter Details Care Team Description Date Type Department David Simms MD [address] [facility] [place], [place] [id number] New Patient (PAINT PREPPER RCA/Circ) 08/09/2016 Office Visit [facility] [address] [facility] [place], [place] [id number] Social History Date Tobacco Use Types Packs/Day [...] Signs Reading Time Taken Comments Vital Sign 128/74 08/09/2016 7:41 AM AUTO SLIP COVER INSTALLER Blood Pressure 59 08/09/2016 7:41 AM AUTO SLIP COVER INSTALLER Pulse - - Temperature - - Respiratory Rate - - Oxygen Saturation - - Inhaled Oxygen Concentration 73.3 kg (161 lb 9.6 oz) 08/09/2016 7:41 AM AUTO SLIP COVER INSTALLER Weight 175.3 cm (5' 9") 08/09/2016 7:41 AM AUTO SLIP COVER INSTALLER Height 23.86 08/09/2016 7:41 AM AUTO SLIP COVER INSTALLER Body Mass Index documented in this encounter Progress Notes * David Simms MD - 08/09/2016 7:41 AM AUTO SLIP COVER INSTALLER Date of Service: 08/09/2016 Kaz Restrepo is a 56 y.o. male. HPI Mr. Restrepo is a 56-year-old male with a history of coronary artery disease who un derwent a cardiac catheterization back on July 29, 2016. He was noted to cabrera ve a chronic total occlusion of the right coronary artery and a high-grade lesio n of the circumflex. The mid segment of the left anterior descending artery had a moderate lesion of about 60%. Of note, his ejection fraction is normal. He had an echocardiogram demonstrating an ejection fraction of 60%. He continues t o have chronic progressive angina and states really very little activity is requ ired for him to feel poorly and feel as though he has a lot heaviness on his [address]. He has continued to smoke less than a pack per day. He is currently on an antihypertensive regimen as well as a cholesterol regimen and his blood pressure is under good control today. He has no prior history predating this cardiac ca theterization of having coronary disease and notes for the most part he has been healthy. He has no active bleeding problems. Denies any black stools or bright red blood in the stool. He is not actively being treated for cancer and does not know of any contraindications to anti-platelet therapy. He has no allergies to contrast dye. We did discuss the risks of proceeding with his cardiac briseyda terization today and revascularization attempt. He understands the risks and wo uld like to go ahead and proceed. ([id number]) Filed Vitals: 08/09/16 0741 BP: 128/74 Pulse: 59 Height: 1.753 m (5' 9") Weight: 73.301 kg (161 lb 9.6 oz) Body mass index is 23.85 kg/(m^2). 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 He really cannot do much activity without having heaviness on his chest and he s tates that for the most part he chronically has chest heaviness, it just gets wo rse with activity. He has intermittently had to take nitroglycerin. His cardia c catheterization demonstrates chronic total occlusion of the right coronary art nupur. There are notable collaterals supplying the posterolateral vessel via the AV groove segment. In addition, he has a high-grade mid circumflex stenosis of 95% involving this collateral as well. His left anterior descending has several large septal perforators which do not readily supply the posterior descending a rtery territory via collaterals. Our plan today will be to go ahead and get bas marek imaging. I will gain access to the bilateral groins and we will attempt e ither a retrograde appeared to the right coronary artery followed by revasculari zation of the circumflex, or an antegrade option. I did discuss the possibility of requiring surgery or an emergency procedure. He certainly understands the r isks and benefits after our extensive discussion today. We will plan to proceed . (DOC:[id number]) Current Medications (including today's revisions) No current outpatient prescriptions on file. SLIP COVER INSTALLER documented in this encounter Plan of Treatment Order Schedule Name Type Priority Associated Diagnoses Ordered: 08/12/2016 ECG 12-LEAD ECG Routine Coronary artery disease of grand r[place] tribes artery of grand [place] tribes heart with stable angina pectoris (HCC) documented as of this encounter Procedures Comments Procedure Name Priority Date/Time Associated Diagnosis POC ACTIVATED CLOTTING 08/09/2016 TIME 12:01 PM AUTO SLIP COVER INSTALLER POC ACTIVATED CLOTTING 08/09/2016 TIME 11:46 AM AUTO SLIP COVER INSTALLER POC ACTIVATED CLOTTING 08/09/2016 TIME 11:33 AM AUTO SLIP COVER INSTALLER POC ACTIVATED CLOTTING 08/09/2016 TIME 11:11 AM AUTO SLIP COVER INSTALLER POC ACTIVATED CLOTTING 08/09/2016 TIME 10:53 AM AUTO SLIP COVER INSTALLER documented in this encounter Results * POC ACTIVATED CLOTTING TIME (08/09/2016 12:01 PM AUTO SLIP COVER INSTALLER) Activated [address] [employer] MAIN [facility] Clotting Time Specimen Performing Organization Address [facility] Phone Number [employer] MAIN [facility] [address] [place] [address] * POC ACTIVATED CLOTTING TIME (08/09/2016 11:46 AM AUTO SLIP COVER INSTALLER) Activated [address] [employer] MAIN [facility] Clotting Time Specimen Performing Organization Address [facility] Phone Number [employer] [facility] [address] [place] [address] * POC ACTIVATED CLOTTING TIME (08/09/2016 11:33 AM AUTO SLIP COVER INSTALLER) Activated [address] [employer] MAIN [facility] Clotting Time Specimen Performing Organization Address City/State/Zipcode Phone Number MAIN LAB [address] [place] [address] * POC ACTIVATED CLOTTING TIME (08/09/2016 11:11 AM AUTO SLIP COVER INSTALLER) Activated [address] [facility] MAIN [facility] Clotting Time Specimen Performing Organization Address City/[facility]/Zipcode Phone Number MAIN LAB [address] [place] [address] * POC ACTIVATED CLOTTING TIME (08/09/2016 10:53 AM AUTO SLIP COVER INSTALLER) Activated [address] [facility] MAIN LAB Clotting Time Specimen Performing Organization Address City/[facility] Phone Number [facility] [address] [place] [address] documented in this encounter Visit Diagnoses Diagnosis Coronary artery disease of grand ronde tribes artery of grand [place] tribes heart with stable angina pectoris (HCC) - Primary Ischemic chest pain Chest pain, unspecified Essential hypertension Unspecified essential hypertension documented in this encounter
--- OUTSIDE RECORDS SUMMARY | 2018-12-06 21:03 | XMS REPORT | Encounter Summary ---
Author Author [facility] Organization [facility] Address Unknown Phone Unavailable Care Team Providers Care Afternoon Babysitter Name Role Phone Leroy Lao MD [address] Hernandes DO PCP Reason for Visit * Reason Comments Precertification No Insurance Encounter Details Care Team Description Date Type Department Ethan Gupta RN Precertification (No Insurance) 08/03/2016 Documentation [facility] [address] [facility] [place] [address] Social History Date Tobacco Use Types Packs/Day Years Used Never Assessed Sex Assigned at Date Recorded Not on file Industry Job Start Date Occupation Not on file Not on file Not on file Travel End Travel History Travel Start No recent travel history available. documented as of this encounter Progress Notes * Ethan Gupta, RN - 08/03/2016 10:54 AM MOLDER FLOOR Patient needs LVCORS and CORE JAVA ENGINEER PCI, scheduled for 08/09/2016. He has no insurance, confirmed by scheduling nurse. Email to financial support team stating zion caro equesting clearance for procedure 08/05/2016 3:44 PM reply from financial counseling agent giving approval for chaya ent to have procedure. ER FLOOR documented in this encounter Plan of Treatment Not on filedocumented as of this encounter Visit Diagnoses Not on filedocumented in this encounter
--- OUTSIDE RECORDS SUMMARY | 2018-12-06 21:03 | XMS REPORT | Encounter Summary ---
Author Author [facility] Organization [facility] Address Unknown Phone Unavailable Care Team Providers Care Amusement Equipment Operator Name Role Phone Leroy Lao MD [address] Silver Hernandes DO PCP Encounter Details Care Team Description Date Type Department Linda Marroquin, OSBALDO-Reginaldo Forwarding address unknown Left [facility] 12/17/2017 08/08/2016 Pre-Admit XDD CARDIOLOGY Orders Only Social History Date Tobacco Use Types Packs/Day Years Used Never Assessed Sex Assigned at Date Recorded Not on file Industry Job Start Date Occupation Not on file Not on file Not on file Travel End Travel History Travel Start No recent travel history available. documented as of this encounter Plan of Treatment Not on filedocumented as of this encounter Visit Diagnoses Not on filedocumented in this encounter
--- OUTSIDE RECORDS SUMMARY | 2018-12-06 21:03 | XMS REPORT | Encounter Summary ---
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 Percutaneous Intervention 08/09/2016 Surgery [facility] Cardi[facility] [address] [place] [address] Social History Date Tobacco Use Types Packs/Day [...] Comments Vital Sign 142/80 08/10/2016 8:55 AM PADDED BOX SEWER Blood Pressure 71 08/10/2016 8:55 AM PADDED BOX SEWER Pulse 36.9 C (98.4 F) 08/10/2016 9:04 AM PADDED BOX SEWER Temperature - - Respiratory Rate 98% 08/10/2016 8:55 AM PADDED BOX SEWER Oxygen Saturation - - Inhaled Oxygen Concentration 72.2 kg (159 lb 2.8 oz) 08/09/2016 8:35 AM PADDED BOX SEWER Weight 175.3 cm (5' 9") 08/09/2016 8:35 AM PADDED BOX SEWER Height 23.51 08/09/2016 8:35 AM PADDED BOX SEWER Body Mass Index documented in this encounter Discharge Summaries * Sarah Camara PA-C - 08/10/2016 7:54 AM PADDED BOX SEWER Physician Discharge Summary Name: Kaz Restrepo Date [...] underwent cardiac cath on 07/29/16 at [facility] to Chest pain. 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 - AFTER BUSINESS HOURS (4:30 PM - 8:00 AM, on weekends, or holidays): Call [phone] and ask the screen print operator to page the on-call doctor for the discha rge attending physician. Discharging attending physician: MUKESH SIMMS [[id number]] Cardiac Diet Limiting unhealthy fats and cholesterol [...] may contact a dietitian clif t . CEA Education about Stroke you are [...] if the signs go away, c all 9--1 IMMEDIATELY. Check the time so you will know when the first sign start ed. [facility] is a gathering place for individuals, families, and friends living with serious or chronic physical illness. They offer education and support pro grams that help you live your life to the fullest. Unless otherwise noted, prog gerardo are offered at NO CHARGE. However, REGISTRATION IS REQUIRED 48 hours in [facility]. To arrange for a tour, register for a class, or ask a questions please call . You can also visit [email or web address] for more information. Return Appointment Please see separate pre-procedure instructions for your scheduled procedure on . Provider MUKESH SIMMS [[id number]] Location [facility] Appointment date: 08/23/2016 Request for Cardiology Appointment Standing Status: Future Standing Exp. Date: 08/09/21 4 weeks Scheduling Priority: Routine Schedule OV with (1st choice Provider) Mukesh Simms M.D. Special Visit Type Post Hospital Follow-up Location of Appointment [facility] / Mon-Fri Current Discharge Medication List CONTINUE these medications which have been CHANGED or REFILLED Details atorvastatin (LIPITOR) 40 mg tablet Take 1 Tab by mouth at bedtime daily. 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 During Business Hours: [facility] Office at [facility]: (Tuesday-Tuesday) [place]: [phone] (Tuesday-Tuesday) [place]: [phone] (Tuesday-Tuesday) [place]: [phone] (Tuesday and ) [place]: [phone] (Tuesday-Tuesday) [place]: [phone] (Tuesday-Tuesday) [place]: [phone] (Tuesday-) [facility] [address]: [phone] (Tuesday, Tuesday and Tuesday) [place]: [phone] (Tuesday, Tuesday and Tuesday) [place] ([place]): [phone] (Tuesday, Tuesday and Tuesday) Nights and Weekends [facility] at the [facility]: This education is meant to serve as a resource to you and your family. It is not meant to be all inclusive. The members of the [facility] at [facility], , will be glad to answer any questions you may have about this booklet or your procedure. ED BOX SEWER documented in this encounter Medications at Time of Discharge Start Date End Date Medication Sig Dispensed Refills aspirin EC 81 mg tablet Take 81 mg by 0 mouth at bedtime daily. Take with food. 08/10/2016 nitroglycerin (NITROSTAT) Place 1 Tab 25 Tab 3 0.4 mg tabletIndications: under tongue Coronary artery disease every 5 of [place] artery of minutes as [place] heart with stable needed for angina pectoris [...] mouth at Coronary artery disease bedtime of [place] artery of daily. [place] heart with stable angina pectoris (HCC), Essential [...] tabletIndications: mouth daily. Coronary artery disease of [place] artery of [place] heart with stable angina pectoris (HCC), Essential [...] Luan Sotelo RN - 08/10/2016 6:45 AM PADDED BOX SEWER Introduced self to patient and gave copy [...] for additional stenting in a few weeks. ED BOX SEWER * Ghazal Noel RN - 08/09/2016 2:55 PM PADDED BOX SEWER CARDIOPULMONARY REHABILITATION INPATIENT ASSESSMENT Cardiac Rehabilitation Staff: Sahara Noel RN Discharge Date: Demographics Pre-admit Dx: Coronary Artery Disease Date of Admission: 08/09/2016 Room: CATH RM/CATH BD : 1960 Insurance: Primary: self pay Secondary: unknown Address: [address] [address] Patient (home) Marital Status: Single Occupation: Unknown ED Contact: Kirti Restrepo ED Phone #: [phone] CTS: CHRISSY Quail Farmer: Mendez Cardiac Procedures and Events PCI: 08/08/16 [...] Sent to Staff: Ghazal Noel RN 08/09/2016 ED BOX SEWER * Tita Squires RN - 08/09/2016 10:31 AM PADDED BOX SEWER 0900- Bilateral femoral arteries auscultated no bruits noted. ED BOX SEWER * Tita Squires RN - 08/09/2016 8:26 AM PADDED BOX SEWER 0825- Patient arrived on unit via ambulation. MAC office visit completed. Patien t transferred to the bed without assistance. Assessment completed, refer to kathryn wsheet for details. Orders released, reviewed, and implemented as appropriate. O riented to surroundings, call light within reach. Plan of care reviewed. Will c ontinue to monitor and assess. ED BOX SEWER * Tita Squires RN - 08/09/2016 7:28 AM PADDED BOX SEWER 0720- Pt arrived to CTR room 7. Upon arrival this RN inquired to see if pt has a lready been to scheduled pre-admit office visit. Pt states he has not been to of fice visit and was sent up to [facility] when he checked in. Office visit confirmed with MAC, pt sent back to MAC office for scheduled appoi ntment. ED BOX SEWER documented in this encounter H&P Notes * Sarah Camara PA-C - 08/09/2016 9:10 AM PADDED BOX SEWER The original H and P below was [...] and notes for the most part h e has been healthy. He has no active bleeding problems. Denies any black sto ols or bright red blood in the stool. He is not actively being treated for can cer and does not know of any contraindications to anti-platelet therapy. He cabrera s no allergies to contrast dye. We did discuss the risks of proceeding with mt s cardiac catheterization today and revascularization attempt. He understands the risks and would like to go ahead and proceed. Filed Vitals: 08/09/16 0741 BP: 128/74 Pulse: 59 Height: 1.753 m (5' 9") Weight: 73.301 kg (161 lb 9.6 oz) Body mass index is 23.85 kg/(m^2). Past Medical History Patient Active Problem List Diagnosis Date Noted Coronary artery disease of [place] artery of [place] heart with stable angin a pectoris (HCC) 08/09/2016 07/29/16: heart cath ([place], [place]) - total occlusion of the [...] Surgical History Laterality Date Comments HIATAL HERNIA REPAIR[[id number]] Social History Category History Smoking Status Current [...] Diagnoses Name Primary? Coronary artery disease of [place] artery of [place] heart with stable angin a pectoris (HCC) Yes Ischemic chest pain (HCC) Essential hypertension Assessment and Plan He really cannot do much activity without having heaviness on his chest and he states that for the most part he chronically has chest heaviness, it just gets w orse with activity. He has intermittently had to take nitroglycerin. His car diac catheterization demonstrates chronic total occlusion of the [...] daily Tylenol PRN Milk of mag PRN ED BOX SEWER documented in this encounter Procedure Notes * Mukesh Simms MD - 08/09/2016 12:18 PM PADDED BOX SEWER Associated Order(s): CARDIAC CATH REPORT [facility] CARDIAC CATHETERIZATION REPORT Page 2 KAZ Diaz : 1960 #: [id number] MR #/Billing ID #: [id number] / [id number] DATE: 08/09/2016 COMBINATION WELDER: Mukesh Simms MD DICTATING PROVIDER: Mukesh Simms [...] 1% lidocaine a nd initially advanced a 7-Palestinian arterial sheath in the right common femoral art nupur. Selective left and right coronary cineangiograms were then performed utili zing standard 5-Palestinian diagnostic coronary catheters in various LAGUNAS and NAURUAN proj ections as well as a left heart catheterization. This baseline information was then used for planning purposes. We then anesthetized the left groin with appro ximately 20 mL of 1% lidocaine and advanced a 2nd 7-Palestinian arterial sheath. Hep angelica was then used to maintain a therapeutic ACT throughout the case. We advanc ed a 7-Palestinian EBU 3.75 guide to the ostium of the left main and a 7-Palestinian AR1 g uide to the ostium of [...] stenosis. There wer e noted to be pkey-yl-pcflg collaterals via the AV groove segment and also from what appeared to be the septal perforators off the LAD. c. The [place] right coronary was visualized with the JR4 catheter. Technically, it was dominant based on the angiographic appearance from the left system. The [place] right coronary artery was occluded at the mid segment with no appreciabl e right to right collaterals. Post intervention, the [place] right coronary michael ry was a large [...] the obtuse marginal segment. MD RAMIRO Quiroz/Patrick /[id number] cc: - Mukesh Simms MD ED BOX SEWER documented in this encounter Plan of Treatment Order Schedule Name Type Priority Associated Diagnoses Expected: 08/16/2016 (Approximate), Expires: 08/10/2017 BASIC METABOLIC PANEL Lab Routine Coronary artery disease of [place] artery of [place] heart with stable angina pectoris (HCC) Essential hypertension Mixed hyperlipidemia Gastroesophageal reflux disease, esophagitis presence not specified Ischemic chest pain (HCC) Tobacco abuse History of noncompliance with medical treatment Expected: 08/16/2016 (Approximate), Expires: 08/10/2017 CBC Lab Routine Coronary artery disease of [place] artery of [place] heart with stable angina pectoris (HCC) Essential hypertension Mixed hyperlipidemia Gastroesophageal reflux disease, esophagitis presence not specified Ischemic chest pain (HCC) Tobacco abuse History of noncompliance with medical treatment documented as of this encounter Procedures Comments Procedure Name Priority Date/Time Associated Diagnosis ECG-SCAN 08/12/2016 9:18 AM PADDED BOX SEWER ECG-SCAN 08/12/2016 9:18 AM PADDED BOX SEWER TELEMETRY STRIPS-SCAN 08/11/2016 11:29 AM PADDED BOX SEWER PROCEDURE RECORD-SCAN 08/11/2016 11:28 AM PADDED BOX SEWER ECG UNCONFIRMED-SCAN 08/11/2016 11:10 AM PADDED BOX SEWER ECG UNCONFIRMED-SCAN 08/11/2016 11:10 AM PADDED BOX SEWER ECG-SCAN 08/11/2016 11:09 AM PADDED BOX SEWER CARDIAC CATH REPORT 08/10/2016 4:40 PM PADDED BOX SEWER CBC 08/10/2016 4:30 AM PADDED BOX SEWER BASIC METABOLIC PANEL Routine 08/10/2016 Coronary artery disease 4:30 AM PADDED BOX SEWER of [place] artery of [place] heart with stable angina pectoris (HCC) Ischemic chest pain (HCC) POC ACTIVATED CLOTTING 08/09/2016 TIME 1:59 PM PADDED BOX SEWER POC ACTIVATED CLOTTING 08/09/2016 TIME 1:30 PM PADDED BOX SEWER POC ACTIVATED CLOTTING 08/09/2016 TIME 1:03 PM PADDED BOX SEWER POC ACTIVATED CLOTTING 08/09/2016 TIME 1:00 PM PADDED BOX SEWER CBC STAT 08/09/2016 8:45 AM PADDED BOX SEWER LIVER FUNCTION PANEL Add on 08/09/2016 8:45 AM PADDED BOX SEWER LIPID PROFILE Add on 08/09/2016 8:45 AM PADDED BOX SEWER BASIC METABOLIC PANEL STAT 08/09/2016 8:45 AM PADDED BOX SEWER documented in this encounter Results * ECG-SCAN (08/12/2016 9:18 AM PADDED BOX SEWER) Narrative Performed At Ordered by an unspecified provider. * ECG-SCAN (08/12/2016 9:18 AM PADDED BOX SEWER) Narrative Performed At Ordered by an unspecified provider. * TELEMETRY STRIPS-SCAN (08/11/2016 11:29 AM PADDED BOX SEWER) Narrative Performed At Ordered by an unspecified provider. * PROCEDURE RECORD-SCAN (08/11/2016 11:28 AM PADDED BOX SEWER) Narrative Performed At Ordered by an unspecified provider. * ECG UNCONFIRMED-SCAN (08/11/2016 11:10 AM PADDED BOX SEWER) Narrative Performed At Ordered by an unspecified provider. * ECG UNCONFIRMED-SCAN (08/11/2016 11:10 AM PADDED BOX SEWER) Narrative Performed At Ordered by an unspecified provider. * ECG-SCAN (08/11/2016 11:09 AM PADDED BOX SEWER) Narrative Performed At Ordered by an unspecified provider. * CARDIAC CATH REPORT (08/10/2016 4:40 PM PADDED BOX SEWER) Transcriptions Mukesh Simms MD - 08/09/2016 12:18 PM PADDED BOX SEWER [facility] CARDIAC CATHETERIZATION REPORT Page 2 KAZ Diaz : 1960 JESSICA#: [id number] JESSICA MR #/Billing ID #: [id number] / [id number] DATE: 08/09/2016 COMBINATION WELDER: Mukesh Simms MD DICTATING PROVIDER: Mukesh Simms [...] of 1% lidocaine and initially advanced a 7-Palestinian arterial sheath in the right common femoral artery. Selective left and right coronary cineangiograms were then performed utilizing standard 5-Palestinian diagnostic coronary catheters in various LAGUNAS and NAURUAN projections as well as a left heart catheterization. This baseline information was then used for planning purposes. We then anesthetized the left groin with approximately 20 mL of 1% lidocaine and advanced a 2nd 7- Palestinian arterial sheath. Heparin was then used to maintain a therapeutic ACT throughout the case. We advanced a 7-Palestinian EBU 3.75 guide to the ostium of the left main and a 7-Palestinian AR1 guide to the ostium of the [...] 90% stenosis. There were noted to be thpv-fk-orhiw collaterals via the AV groove segment and also from what appeared to be the septal perforators off the LAD. c. The [place] right coronary was visualized with the JR4 catheter. Technically, it was dominant based on the angiographic appearance from the left system. The [place] right coronary artery was occluded at the mid segment with no appreciable right to right collaterals. Post intervention, the [place] right coronary artery was a large caliber [...] the obtuse marginal segment. MD RAMIRO Quiroz/Patrick /[id number] cc: - Mukesh Simms MD Performing Organization Address City/State/Zipcode Phone Number OTHER OUTSIDE LAB * CBC (08/10/2016 4:30 AM PADDED BOX SEWER) White Blood 8.4 4.5 - 11.0 K/UL [facility] Cells RBC 4.01 (L) 4.4 - 5.5 M/UL [facility] Hemoglobin 12.1 (L) 13.5 - 16.5 GM/DL [facility] Hematocrit 36.9 (L) 40 - 50 % [facility] MCV 91.9 80 - 100 FL [facility] MCH 30.2 26 - 34 PG [facility] MCHC 32.9 32.0 - 36.0 G/DL [facility] RDW 12.9 11 - 15 % [facility] Platelet Count 288 150 - 400 K/[facility] MPV 7.8 7 - 11 FL [facility] Specimen Performing Organization Address City/[facility] Phone Number [facility] [address] [place] [address] * BASIC METABOLIC PANEL (08/10/2016 4:30 AM PADDED BOX SEWER) Sodium 136 (L) 137 - 147 MMOL/L [facility] Potassium 4.5 3.5 - 5.1 MMOL/L [facility] Chloride 105 98 - 110 MMOL/L [facility] CO2 26 21 - 30 MMOL/L [facility] Anion Gap 5 3 - 12 [facility] Glucose 163 (H) 70 - 100 MG/DL [facility] Blood Urea 21 7 - 25 MG/DL [facility] Nitrogen Creatinine 1.07 0.4 - 1.24 MG/DL [facility] Calcium 9.0 8.5 - 10.6 MG/DL [facility] eGFR Non >60 >60 mL/min [facility] Comment: [place] The eGFR is not validated for use in drug dosing adjustments.Continue to use estimated creatinine clearance per dosing reference text.Please contact the Clinical Pharmacist for questions. eGFR >60 >60 mL/min [facility] [place] Comment: The eGFR is not validated for use in drug dosing adjustments.Continue to use estimated creatinine clearance per dosing reference text.Please contact the Clinical Pharmacist for questions. Specimen Blood Performing Organization Address City/[facility]/Zipcode Phone Number [facility] [address] [place] [address] * POC ACTIVATED CLOTTING TIME (08/09/2016 1:59 PM PADDED BOX SEWER) Activated 157 s [facility] Clotting Time Specimen Performing Organization Address City/[facility] Phone [facility] [address] [place] [address] * POC ACTIVATED CLOTTING TIME (08/09/2016 1:30 PM PADDED BOX SEWER) Activated 188 s [facility] Clotting Time Specimen Performing Organization Address City/[facility] Cent[facility]ode Phone Number [facility] [address] [place] [address] * POC ACTIVATED CLOTTING TIME (08/09/2016 1:03 PM PADDED BOX SEWER) Activated 199 s [facility] Clotting Time Specimen Performing Organization Address City/[facility]/Zipcode Phone Number [facility] [address] [place] [address] * POC ACTIVATED CLOTTING TIME (08/09/2016 1:00 PM PADDED BOX SEWER) Activated 86 s [facility] Clotting Time Specimen Performing Organization Address City/[facility]/Zipcode Phone Number [facility] [address] [place] [address] * LIVER FUNCTION PANEL (08/09/2016 8:45 AM PADDED BOX SEWER) Total Bilirubin 0.4 0.3 - 1.2 MG/DL [...] [facility] Specimen Performing Organization Address [facility] Cent[facility]ode Phone Number [facility] [address] [place] [address] * LIPID PROFILE (08/09/2016 8:45 AM PADDED BOX SEWER) Pathologist [facility] Cholesterol 204 (H) <200 MG/DL [facility] MAIN [...] Holly et al. Am J. Cardiol. 2008, 101:[id number]. The "goal" should be less than 130 mg/dL, but will vary according to risk factors. Specimen Performing Organization Address [facility]/Zipcode Phone Number [facility] [address] [place] [address] * CBC (08/09/2016 8:45 AM PADDED BOX SEWER) White Blood 7.9 4.5 - 11.0 K/UL [facility] Cells RBC 4.36 (L) 4.4 [...] MAIN LAB Specimen Blood Performing Organization Address City/[facility]/Zipcode Phone Number [facility] [address] [place] [address] * BASIC METABOLIC PANEL (08/09/2016 8:45 AM PADDED BOX SEWER) Sodium 137 137 - 147 MMOL/L K[facility] [...] >60 >60 mL/min [facility] Comment: [place] The eGFR is not validated for use in drug dosing adjustments.Continue to use estimated creatinine clearance per dosing reference text.Please contact the Clinical Pharmacist for questions. eGFR >60 >60 mL/min [facility] [place] Comment: The eGFR is not validated for use in drug dosing adjustments.Continue to use estimated creatinine clearance per dosing reference text.Please contact the Clinical Pharmacist for questions. Specimen Blood Performing Organization Address [facility] Centercori Phone Number [facility] [address] [place] [address] documented in this encounter Visit Diagnoses Not on filedocumented in this encounter Administered Medications Action Date Dose Rate Site Medication Order MAR Action 08/09/2016 12:53 PM PADDED BOX SEWER 30 mL aluminum/magnesium hydroxide (MAALOX) Given oral suspension 30 mL 30 mL, Oral, EVERY 4 HOURS PRN, Starting Tue08/09/16 at 1209, Until Tue08/10/16 at 1135, Indigestion 08/10/2016 8:49 AM PADDED BOX SEWER 10 mg amLODIPine (NORVASC) tablet 10 mg Given 10 mg, Oral, DAILY, First dose on Tue08/09/16 at 1215, Until Discontinued, NURSING: Please educate patient and document: Do not give with grapefruit juice., Admission/Obs/Extended Recovery 08/10/2016 8:49 AM PADDED BOX SEWER 40 mg atorvastatin (LIPITOR) tablet 40 mg Given 40 mg, Oral, AT BEDTIME DAILY, First dose on Tue08/09/16 at 2100, Until Discontinued, Admission/Obs/Extended Recovery 40 mg Given 08/09/2016 9:21 PM PADDED BOX SEWER 08/10/2016 8:49 AM PADDED BOX SEWER 6.25 mg carvedilol (COREG) tablet 6.25 mg Given 6.25 mg, Oral, TWICE DAILY WITH MEALS, First dose on Tue08/09/16 at 1215, Until Discontinued, Hold for heart rate < 50 bpm or systolic BP < 90, Admission/Obs/Extended Recovery 6.25 mg Given 08/09/2016 9:22 PM PADDED BOX SEWER 08/10/2016 8:49 AM PADDED BOX SEWER 75 mg clopiDOGrel (PLAVIX) tablet 75 mg Given 75 mg, Oral, DAILY, First dose on Tue08/10/16 at 0900, Until Discontinued, Clopidogrel (PLAVIX) load given in label maker. This Medication can increase the risk of bleeding and may need to be held prior to surgery or invasive procedures. Consult physician in advance., 08/09/2016 2:08 PM PADDED BOX SEWER 50 mcg fentaNYL citrate PF (SUBLIMAZE) Given injection 25-50 mcg 25-50 mcg, Intravenous, ONCE, 1 dose, Tue08/09/16 at 1245, Pain with sheath pull. Verbal order from Dr Simms., 08/09/2016 2:46 PM PADDED BOX SEWER 50 mcg fentaNYL citrate PF (SUBLIMAZE) Given injection 50 mcg 50 mcg, Intravenous, ONCE, 1 dose, Tue08/09/16 at 1500 08/10/2016 8:49 AM PADDED BOX SEWER 20 mg lisinopril (PRINIVIL; ZESTRIL) tablet 20 Given mg 20 mg, Oral, DAILY, First dose on Tue08/10/16 at 0900, Until Discontinued, Admission/Obs/Extended Recovery 08/09/2016 9:22 PM PADDED BOX SEWER [address] (PROTONIX) tablet 40 mg Given 40 mg, Oral, DAILY, First dose on Tue08/09/16 at 2100, Until Discontinued, Do not crush or chew tablet., Admission/Obs/Extended Recovery 08/09/2016 9:00 AM PADDED BOX SEWER 75 mL/hr sodium chloride 0.9 % infusion Given - New 1,000 mL, Intravenous, at 75 mL/hr, Bag CONTINUOUS, Starting Tue08/09/16 at 0745, Until Tue08/09/16 at 1211, If EF is <40%, contact CCL Charge Nurse [phone]) before initiating fluid., Admission/Obs/Extended Recovery 08/09/2016 7:51 PM PADDED BOX SEWER 75 mL/hr sodium chloride 0.9 % infusion Given - New 1,000 mL, Intravenous, at 75 mL/hr, Bag CONTINUOUS, Starting Tue08/09/16 at 1215, Until Tue08/09/16 at 2014, Once patient out of bed, then saline lock and DC IV fluid. Hold maintenance IVF while sodium bicarbonate running (if ordered)., 75 mL/hr Dose/Rate Verify 08/09/2016 12:27 PM PADDED BOX SEWER 08/09/2016 9:22 PM PADDED BOX SEWER 15 mg temazepam (RESTORIL) capsule 15 mg Given 15 mg, Oral, AT BEDTIME PRN, Starting Tue08/09/16 at 0732, Until Tue08/10/16 at 1135, Insomnia, Admission/Obs/Extended Recovery documented in this encounter
== END 2018-12-06 14:48 | disposition home or self-care (01) ==
LOC: EDUNIT# 12:04 → ER 12:05
DX: E86.9 Volume depletion, unspecified (principal); G47.30 Sleep apnea, unspecified; I25.10 Atherosclerotic heart disease of native coronary artery without angina pectoris; I25.2 Old myocardial infarction; E78.00 Pure hypercholesterolemia, unspecified; I10 Essential (primary) hypertension; G43.909 Migraine, unspecified, not intractable, without status migrainosus; K21.9 Gastro-esophageal reflux disease without esophagitis; F41.9 Anxiety disorder, unspecified; F32.9 Major depressive disorder, single episode, unspecified; Z92.21 Personal history of antineoplastic chemotherapy; M06.9 Rheumatoid arthritis, unspecified; Z87.19 Personal history of other diseases of the digestive system; Z82.49 Family history of ischemic heart disease and other diseases of the circulatory system; Z87.448 Personal history of other diseases of urinary system; Z85.46 Personal history of malignant neoplasm of prostate; Z87.440 Personal history of urinary (tract) infections; Z86.73 Personal history of transient ischemic attack (TIA), and cerebral infarction without residual deficits; Z88.0 Allergy status to penicillin; Z79.82 Long term (current) use of aspirin; Z79.02 Long term (current) use of antithrombotics/antiplatelets; Z87.891 Personal history of nicotine dependence; Z95.5 Presence of coronary angioplasty implant and graft; Z98.890 Other specified postprocedural states
CPT/HCPCS: 36415; 71045; 80053; 83735; 83874; 84484; 85025; 85610; 85730; 93005; 93041; 96360; 96361

== ENCOUNTER → 2018-12-14 | Outpatient (CLI) | payer OTHER ==
[~2018-12-14] MED LIST changes: +CATHETER FLUSH 10 ML SYR IV PRN
--- NOTE | 2018-12-14 18:32 | Diagnostic Imaging Report ---
INDICATION: Abdominal pain. TECHNIQUE: Patient was administered 5.4 mCi technetium 99m Choletec intravenously and imaging over the abdomen was performed. At 30 minutes, patient ingested 8 ounces of Ensure and gallbladder ejection fraction was calculated. FINDINGS: There is homogeneous uptake of activity by the liver. There is prompt excretion of activity into the common duct and gallbladder with normal passage of activity into the small bowel. Gallbladder ejection fraction is 85%. IMPRESSION: 1. Patent common bile duct and cystic duct. 2. Gallbladder ejection fraction of 85%. Dictated by: Dictated on workstation # [id number]
== END ==
LOC: CARD 10:03
PROVIDERS: ATTEND Surgery
DX: R10.13 Epigastric pain (principal)
CPT/HCPCS: 78227

== ENCOUNTER 2018-12-17 12:27 | Emergency (ER) | payer OTHER ==
[~2018-12-17] VITALS: Ht 175.3 cm; Wt 85.7 kg
[~2018-12-17 12:27] MED LIST changes: -CATHETER FLUSH 10 ML SYR IV PRN
--- NOTE | 2018-12-17 12:50 | ED Headache ---
General Chief Complaint: Cardiac/General Problems Stated Complaint: ELEV BP 221/139 Source: patient Exam Limitations: no limitations History of Present Illness Date Seen by Provider: Dec 17, 2018 Time Seen by Provider: 12:37 Initial Comments Patient presents to ER by private conveyance with chief complaint of a headache been going on yesterday and this morning when he woke up it was very severe. He has never had this similar to his previous history of headaches typically come to the ER and get medicines to help with. He has not taken anything for the headache yet today. He had some nausea and vomiting times one yesterday and no nausea today. No fevers chills sweats. Occasional cough. He has had been dealing for the past few weeks with some abdominal pain outpatient with him up for possible gallbladder. He is a history of coronary disease with 3 stents 2 heart attacks. No CABG. He is on antiplatelet or blood thinner. No history of head trauma. Photophobia mild but no phonophobia. He describes it as pulsating, bilateral feels like his eyes are ballotable joint of his head. When he checked his blood pressure routinely this morning he noted it to be very high 220/130. He typically takes clonidine, amlodipine, losartan. He says he's already taken his blood pressure medicines this morning at 8:00. He says his blood pressure was very high when he gets migraine headaches. He has not followed up with a headache specialist or neurologist but does see Dr. Rabago outpatient. He does not take anything prophylactic nor does he use triptan's. Allergies and Home Medications Allergies Coded Allergies: penicillin G (Verified Allergy, Severe, SWELLING, 11/30/18) Home Medications Amlodipine Besylate 10 Mg Tablet, 10 MG PO DAILY, (Reported) LAST FILLED #90 06-16-18 Aspirin 81 Mg Tablet.dr, 81 MG PO HS, (Reported) Atorvastatin Calcium 10 Mg Tablet, 10 MG PO HS, (Reported) LAST FILLED #30 08-24-18 Bupropion HCl 150 Mg Tablet.er, 150 MG PO BID, (Reported) Buspirone HCl 15 Mg Tablet, 15 MG PO TID, (Reported) Carvedilol 6.25 Mg Tablet, 6.25 MG PO BID, (Reported) LAST FILLED #180 06-17-18 Clonidine HCl 0.1 Mg Tablet, 0.1 MG PO TID, (Reported) Clopidogrel Bisulfate 75 Mg Tablet, 75 MG PO HS, (Reported) Losartan Potassium 100 Mg Tablet, 100 MG PO HS, (Reported) Nitrofurantoin Monohyd/M-Cryst 100 Mg Capsule, 100 MG PO BID, (Reported) 14 DAY SUPPLY FILLED 10-09-18 Nitroglycerin 0.4 Mg Tab.subl, 0.4 MG SL UD PRN for CHEST PAIN, (Reported) PLACE 1 TAB UNDER TONGUE NEEDED FOR CHEST PAIN; IF PAIN REMAINS AFTER 5 MINUTES, CALL 911 [place]-3 Fatty Acids/Fish Oil 1 Each Capsule, 1,000 MG PO BID, (Reported) Pantoprazole Sodium 40 Mg Tablet.dr, 40 MG PO DAILY Prescribed by: MERLIN BISWAS on 12/05/18 1652 Sertraline HCl 100 Mg Tablet, 100 MG PO DAILY, (Reported) LAST FILLED #30 08-24-18 TAKES ALONG WITH 25MG TABLET Sertraline HCl 25 Mg Tablet, 25 MG PO DAILY, (Reported) TAKES ALONG WITH 100MG TABLET Patient Home Medication List Home Medication List Reviewed: Yes Review of Systems Review of Systems Constitutional: No chills, No diaphoresis Eyes: Denies Blindness, Denies Blurred Vision Ears, Nose, Mouth, Throat: denies ear pain, denies ear discharge Respiratory: No cough, No short of breath Cardiovascular: No chest pain, No edema Gastrointestinal: abdominal pain (chronic ); No constipation, No diarrhea; nausea, vomiting (times one yesterday) Genitourinary: No discharge, No dysuria Musculoskeletal: No back pain, No joint pain Past Fqljtaq-Xljcbb-Dlpkdd Hx Patient Social History Alcohol Use: Regular Use Alcohol Beverage of Choice: Beer Recreational Drug Use: No (history of) Drug of Choice: + IV DRUG USE Smoking Status: Former Smoker Type Used: Cigarettes Former Smoker, Quit: Aug 24, 2016 2nd Hand Smoke Exposure: Yes Recent Foreign Travel: No Contact w/Someone Who Travel: No Recent Hopitalizations: No Immunizations Up To Date Tetanus Booster (TDap): Less than 5yrs PED Vaccines UTD: No Date of Influenza Vaccine: Jul 28, 2017 Seasonal Allergies Seasonal Allergies: No Past Medical History Surgeries: Yes (CRUSHED THUMB, HERNIA, ESWL, BRACH YTHERAPY) Coronary Stent, Orthopedic Respiratory: Yes Sleep Apnea Currently Using CPAP: No Currently Using BIPAP: No Cardiac: Yes (CARDIAC CATH WITH ANGIOPLASTY + STENT ON 07/28/17 ) Coronary Artery Disease, Deep Vein Thrombosis, Heart Attack, High Cholesterol, Hypertension Neurological: Yes (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) Headaches /Migraines, TIA Reproductive Disorders: No Sexually Transmitted Disease: No HIV/AIDS: No Genitourinary: Yes (recurrent urinary tract infections, prostate ca) Prostate Problems, Kidney Stones, UTI-Chronic Gastrointestinal: Yes Gastroesophageal Reflux, Chronic Diarrhea, Hiatal Hernia, Ulcer Musculoskeletal: Yes Arthritis, Rheumatoid Arthritis, Back Injury, Chronic Back Pain, Fractures Endocrine: No HEENT: Yes Eye Injury Loss of Vision: Denies Hearing Impairment: Denies Cancer: Yes Prostate Did You Recieve Any Treatments: Yes What Type of Treatment Did You: Radiation Psychosocial: Yes (History of illicit and prescription drug abuse) Anxiety, Depression Integumentary: No Blood Disorders: No Adverse Reaction/Blood Tranf: No (N/A) Family Medical History Arthritis 19 MOTHER BELT SEWER G8 SISTER FH: COPD (chronic obstructive pulmonary disease) Hypercholesterolemia 19 MOTHER Hypertension 19 MOTHER Heart Disease, Hypertension Physical Exam Vital Signs Capillary Refill : Less Than 3 Seconds Height, Weight, BMI Height: 5'9.00" Weight: 186lbs. 0.0oz. 84.681170wj; 27.5 BMI Method:Stated General Appearance: WD/WN, no apparent distress HEENT: PERRL/EOMI, normal ENT inspection, TMs normal, other (mild tenderness in the temporal mandibular joint) Neck: non-tender, full range of motion, supple, normal inspection Cardiovascular: normal peripheral pulses, regular rate, rhythm Respiratory: lungs clear, normal breath sounds, no respiratory distress, no accessory muscle use Gastrointestinal: normal bowel sounds, non tender, soft Psychiatric: alert, oriented x 3 Crainal Nerves: normal hearing, normal speech, PERRL Coordination/Gait: normal gait Motor/Sensory: no motor deficit, no sensory deficit Skin: normal color, warm/dry Progress/Results/Core Measures Results/Orders My Orders Orders - ANGUS RUBALCAVA Ed Iv/Invasive Line Start (12/17/18 12:46) Ondansetron Injection (Zofran Injectio (12/17/18 13:00) Acetaminophen Tablet (Tylenol Tablet) (12/17/18 13:00) Ketorolac Injection (Toradol Injection) (12/17/18 13:00) Prochlorperazine Injection (Compazine In (12/17/18 13:00) Diphenhydramine Tablet (Benadryl Tablet) (12/17/18 13:00) Methylprednisolone Acetate Inj (Depo-Med (12/17/18 13:00) Progress Progress Note : Time: 12:55 Progress Note Patient's lungs sound fine he is little bit of tenderness on his left jaw line but there are no teeth. We have instructed him to follow-up with a dentist if it does not improve with warm compresses and Tylenol. Plan to give him a cocktail of medications including Zofran, Compazine, Benadryl, Tylenol, Toradol, Depo-Medrol IM and clonidine 0.1 mg. If we get His headache under control his blood pressure will probably resolve. Because he is on antiplatelet did not advised him to use frequent NSAIDs. Departure Impression Primary Impression: Headache Qualified Codes: G44.209 - Tension-type headache, unspecified, not intractable Additional Impression: High blood pressure Qualified Codes: I10 - Essential (primary) hypertension Disposition: 01 HOME, SELF-CARE Condition: Stable Departure-Patient Inst. Referrals: ANDRES RABAGO DO (PCP/Family) Primary Care Physician Patient Instructions: Headache, Adult (DC) Add. Discharge Instructions: Go home and get sleep. Drink plenty of fluids. Take Tylenol 1000 mg every 8 hours as necessary for headache. Warm compresses to the left jaw may be helpful. Keep your follow-up appointment with primary care. Zofran 1 tablet every 6 hours as needed for nausea. All discharge instructions reviewed with patient and/or family. Voiced understanding. ANGUS RUBALCAVA Dec 17, 2018 12:50
[2018-12-17] MEDS ORDERED: KETOROLAC 30 MG/ML VIAL IVP ONE (13:00)
[2018-12-17] MEDS ORDERED: ACETAMINOPHEN 500 MG TAB (TYLENOL) PO ONE (13:00)
[2018-12-17] MEDS ORDERED: cloNIDine 0.1 MG (CATAPRES) TAB PO ONE (13:00)
[2018-12-17] MEDS ORDERED: ONDANSETRON 4 MG/2 ML (SDV) Z0FRAN IVP ONE (13:00)
[2018-12-17] MEDS ORDERED: methylPREDNISolone 40 MG/ML (DEPO MEDROL) VIAL IM ONE (13:00)
[2018-12-17] MEDS ORDERED: diphenhydrAMINE 25 MG TAB (BENADRYL) PO ONE (13:00)
[2018-12-17] MEDS ORDERED: PROCHLORPERAZINE 10 MG/2ML INJ (COMPAZINE) IV ONE (13:00)
[2018-12-17 13:37] VITALS: BP 167/86
== END 2018-12-17 13:37 | disposition home or self-care (01) ==
LOC: EDUNIT# 12:27 → ER 12:28
DX: R51 Headache (principal); I10 Essential (primary) hypertension; I25.10 Atherosclerotic heart disease of native coronary artery without angina pectoris; I25.2 Old myocardial infarction; G47.30 Sleep apnea, unspecified; E78.00 Pure hypercholesterolemia, unspecified; K21.9 Gastro-esophageal reflux disease without esophagitis; M06.9 Rheumatoid arthritis, unspecified; F41.9 Anxiety disorder, unspecified; F32.9 Major depressive disorder, single episode, unspecified; Z87.19 Personal history of other diseases of the digestive system; Z87.442 Personal history of urinary calculi; Z87.440 Personal history of urinary (tract) infections; Z85.46 Personal history of malignant neoplasm of prostate; Z86.73 Personal history of transient ischemic attack (TIA), and cerebral infarction without residual deficits; Z86.718 Personal history of other venous thrombosis and embolism; Z77.22 Contact with and (suspected) exposure to environmental tobacco smoke (acute) (chronic); Z95.5 Presence of coronary angioplasty implant and graft; Z87.891 Personal history of nicotine dependence; Z79.02 Long term (current) use of antithrombotics/antiplatelets; Z88.0 Allergy status to penicillin; Z79.82 Long term (current) use of aspirin; Z86.69 Personal history of other diseases of the nervous system and sense organs; Z82.49 Family history of ischemic heart disease and other diseases of the circulatory system

== ENCOUNTER 2018-12-21 17:53 | Emergency (ER) | payer OTHER ==
[~2018-12-21] VITALS: Ht 170.2 cm; Wt 83.9 kg
--- OUTSIDE RECORDS SUMMARY | 2018-12-21 17:57 | XMS REPORT | Clinical Summary ---
Author Author [facility] Organization [facility] Address Unknown Phone Unavailable Care Team Providers Care Photo Print Specialist Name Role Phone Leroy Lao MD 21 Silver Hernandes DO PCP Source Comments Some departments are not documenting in the electronic medical record. If you d o not see the information that you expected, contact Release of Information in [facility] Fl[employer] Information Management department at [phone] for further assistan ce in locating additional records.[facility] Allergies Comments Active Allergy Reactions Severity [...] 7 Coronary artery disease every 5 of [place] artery of minutes as [place] heart with stable needed for angina pectoris [...] Unstable angina 08/13/2016 Coronary artery disease of [place] artery of [place] heart with stable angina 08/09/2016 pectoris Overview: 07/29/16: heart cath ([place], [place]) - total occlusion of the right [...] Encounters Care Team Description Date Type Specialty Sarah Camara PA-C Medication Refill 12/19/2018 Refill Cardiology from Last 3 Months Family [...] Comments Vital Sign 150/72 05/16/2017 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 Blood Pressure 73 05/16/2017 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 Pulse 36.8 C (98.2 F) 03/06/2017 1:42 PM CDT Temperature - - Respiratory Rate 96% 03/06/2017 1:42 PM CDT Oxygen Saturation - - Inhaled Oxygen Concentration 82.6 kg (182 lb) 05/16/2017 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 Weight 175.3 cm (5' 9") 05/16/2017 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 Height 26.88 05/16/2017 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
--- OUTSIDE RECORDS SUMMARY | 2018-12-21 17:58 | XMS REPORT | Encounter Summary ---
Author Author [facility] Organization [facility] Address Unknown Phone Unavailable Care Team Providers Care Time Recorder Name Role Phone Leroy Lao MD 21 Silver Hernandes DO PCP Reason for Visit * Reason Comments Medication Refill Encounter Details Care Team Description Date Type Department David Simms MD [address] [id number] Medication Refill 07/31/2018 Refill [facility] [address] [address] Social History Date Tobacco Use Types Packs/Day [...]
--- OUTSIDE RECORDS SUMMARY | 2018-12-21 17:58 | XMS REPORT | Encounter Summary ---
Author Author [facility] Organization [facility] Address Unknown Phone Unavailable Care Team Providers Care Operations Vice President Name Role Phone Leroy Lao MD 21 Silver Hernandes DO PCP Reason for Visit * Reason Comments Medication Refill Encounter Details Care Team Description Date Type Department Sarah Camara PA-C 4000 [facility] [place], [place] [id number] Medication Refill 12/19/[address] [facility] 4000 [facility] [place] [address] Social History Date Tobacco Use Types Packs/Day [...] Visit Diagnoses Diagnosis Coronary artery disease of ken[place] artery of [place] heart with stable angina pectoris (HCC) Essential hypertension Unspecified essential hypertension Mixed hyperlipidemia Gastroesophageal reflux disease, esophagitis presence not specified Ischemic chest pain Chest pain, unspecified Tobacco abuse Tobacco use disorder History of noncompliance with medical treatment Personal history of noncompliance with medical treatment, presenting hazards to health documented in this encounter
[2018-12-21] MEDS ORDERED: KETOROLAC 30 MG/ML VIAL IVP ONE (18:45)
[2018-12-21] MEDS ORDERED: cloNIDine 0.2 MG (CATAPRES) TAB PO ONE (18:45)
[2018-12-21] MEDS ORDERED: diphenhydrAMINE 50 MG/ML INJ (BENADRYL) IVP ONE (18:45)
[2018-12-21] MEDS ORDERED: MAGNESIUM 1 GM/100 ML IVPB 100 ML IV ONE (18:45)
[2018-12-21 19:13] LABS: BASOPHILS % (AUTO) 0 % (0-10); EOSINOPHILS # (AUTO) 0.2 10^3/uL (0.0-0.3); EOSINOPHILS % (AUTO) 5 % (0-10); HEMATOCRIT 34 % (40-54); HEMOGLOBIN 10.8 G/DL (13.3-17.7); LYMPHOCYTES # (AUTO) 0.8 X 10^3 (1.0-4.0); LYMPHOCYTES % (AUTO) 19 % (12-44); MEAN CORPUSCULAR HEMOGLOBIN 26 PG (25-34); MEAN CORPUSCULAR HGB CONC 32 G/DL (32-36); MEAN CORPUSCULAR VOLUME 81 FL (80-99); MEAN PLATELET VOLUME 8.7 FL (7.4-10.4); MONOCYTES # (AUTO) 0.5 X 10^3 (0.0-1.0); MONOCYTES % (AUTO) 10 % (0-12); NEUTROPHILS # (AUTO) 2.9 X 10^3 (1.8-7.8); NEUTROPHILS % (AUTO) 66 % (42-75); PLATELET COUNT 289 10^3/uL (130-400); RED CELL DISTRIBUTION WIDTH 15.9 % (10.0-14.5); WHITE BLOOD COUNT 4.4 10^3/uL (4.3-11.0)
[2018-12-21] MEDS ORDERED: cloNIDine 0.1 MG (CATAPRES) TAB ONE (19:32)
[2018-12-21 19:33] LABS: ALBUMIN 4.4 GM/DL (3.2-4.5); BILIRUBIN,TOTAL 0.2 MG/DL (0.1-1.0); CALCIUM 10.1 MG/DL (8.5-10.1); CREATININE SERUM 1.59 MG/DL (0.60-1.30); TOTAL PROTEIN 7.8 GM/DL (6.4-8.2)
--- NOTE | 2018-12-21 19:50 | Diagnostic Imaging Report ---
INDICATION: High blood pressure and headache. TIME OF EXAM: 7:30 p.m. COMPARISON: Correlation is made with prior chest from 12/06/2018. EXAMINATION: Single view of the chest was obtained. FINDINGS: The heart size is normal. The pulmonary vascularity is unremarkable. The lungs are clear. No infiltrate, effusion or pneumothorax is detected. IMPRESSION: No acute cardiopulmonary process is detected. Dictated by: Dictated on workstation # [id number]
[2018-12-21] MEDS ORDERED: PROMETHAZINE INJ 25 MG/ML (PHENERGAN) AMP IVP ONE (20:00)
[2018-12-21 20:01] LABS: MAGNESIUM 1.9 MG/DL (1.8-2.4); POTASSIUM 3.9 MMOL/L (3.6-5.0)
[2018-12-21] MEDS ORDERED: LOSARTAN 100 MG (COZAAR) TABLET PO ONE (21:00)
--- NOTE | 2018-12-21 21:38 | ED Headache ---
General Chief Complaint: Cardiac/General Problems Stated Complaint: HEADACHE,HEARBURN Nursing Triage Note: PT AMB TO TRIAGE WITH COMPLAINT OF HEADACHE, HEARTBURN, AND HIGH BLOOD PRESSURE. STATES THE HEADACHE AND INCREASED BP HAVE BEEN GOING ON FOR A WHILE. HEARTBURN STARTED TODAY. STATES HE WAS IN ER A FEW DAYS AGO WITH HIGH BP IN 200s. STATES WENT TO EMS STATION YESTERDAY AND BP WAS ALSO IN 200s. Nursing Sepsis Screen: No Definite Risk Source: patient Exam Limitations: no limitations History of Present Illness Date Seen by Provider: Dec 21, 2018 Time Seen by Provider: 18:36 Initial Comments 58 year old male who presents to the emergency room for complaints of headache and heartburn. He reports that he had been trying to get his blood pressure under control with his pcp but it remains high for a while. He reports that they usually have to give him magnesium and Phenergan for his migraine. He is alert and oriented on arrival. He reports not taking his evening bp pills. Severity/Quality: constant Location: global Prior Headaches/Recent Trauma: frequent headaches Associated Symptoms: denies symptoms Allergies and Home Medications Allergies Coded Allergies: penicillin G (Verified Allergy, Severe, SWELLING, 12/22/18) Home Medications Amlodipine Besylate 10 Mg Tablet, 10 MG PO DAILY, (Reported) LAST FILLED #90 06-16-18 Aspirin 81 Mg Tablet.dr, 81 MG PO HS, (Reported) Atorvastatin Calcium 10 Mg Tablet, 10 MG PO HS, (Reported) LAST FILLED #30 08-24-18 Bupropion HCl 150 Mg Tablet.er, 150 MG PO BID, (Reported) Buspirone HCl 15 Mg Tablet, 15 MG PO TID, (Reported) Carvedilol 6.25 Mg Tablet, 6.25 MG PO BID, (Reported) LAST FILLED #180 06-17-18 Clonidine HCl 0.1 Mg Tablet, 0.1 MG PO TID, (Reported) Clopidogrel Bisulfate 75 Mg Tablet, 75 MG PO HS, (Reported) Hydralazine HCl 10 Mg Tablet, 10 MG PO TID Prescribed by: MORGAN LARES on 12/24/181706 Losartan Potassium 100 Mg Tablet, 100 MG PO HS, (Reported) Nitrofurantoin Monohyd/M-Cryst 100 Mg Capsule, 100 MG PO BID Prescribed by: MORGAN LARES on 12/24/181706 Nitroglycerin 0.4 Mg Tab.subl, 0.4 MG SL UD PRN for CHEST PAIN, (Reported) PLACE 1 TAB UNDER TONGUE NEEDED FOR CHEST PAIN; IF PAIN REMAINS AFTER 5 MINUTES, CALL 911 [place]-3 Fatty Acids/Fish Oil 1 Each Capsule, 1,000 MG PO BID, (Reported) Pantoprazole Sodium 40 Mg Tablet.dr, 40 MG PO DAILY Prescribed by: MERLIN IBSWAS on 12/05/18 1652 Sertraline HCl 100 Mg Tablet, 100 MG PO DAILY, (Reported) LAST FILLED #30 08-24-18 TAKES ALONG WITH 25MG TABLET Sertraline HCl 25 Mg Tablet, 25 MG PO DAILY, (Reported) TAKES ALONG WITH 100MG TABLET Patient Home Medication List Home Medication List Reviewed: Yes Review of Systems Review of Systems Constitutional: see HPI; No chills, No fever Gastrointestinal: see HPI, heartburn Psychiatric/Neurological: See HPI, Headache All Other Systems Reviewed Negative Unless Noted: Yes Past Fbhdtbd-Uywzye-Blmqej Hx Past Med/Social Hx: Reviewed Nursing Past Med/Soc Hx Patient Social History Alcohol Use: Past History Number of Drinks Today: AA Alcohol Beverage of Choice: Beer Recreational Drug Use: No Drug of Choice: + IV DRUG USE Smoking Status: Former Smoker Type Used: Cigarettes Former Smoker, Quit: Aug 24, 2016 2nd Hand Smoke Exposure: Yes Recent Foreign Travel: No Contact w/Someone Who Travel: No Recent Infectious Disease Expo: No Recent Hopitalizations: No Immunizations Up To Date Tetanus Booster (TDap): Less than 5yrs PED Vaccines UTD: No Date of Influenza Vaccine: Jul 28, 2017 Seasonal Allergies Seasonal Allergies: No Past Medical History Surgeries: Yes (CRUSHED THUMB, HERNIA, ESWL, BRACH YTHERAPY) Bladder Surgery, Coronary Stent, Orthopedic, Prostatectomy Respiratory: Yes Sleep Apnea Currently Using CPAP: No Currently Using BIPAP: No Cardiac: Yes (CARDIAC CATH WITH ANGIOPLASTY + STENT ON 07/28/17 ) Coronary Artery Disease, Deep Vein Thrombosis, Heart Attack, High Cholesterol, Hypertension Neurological: Yes (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) Headaches /Migraines, TIA Reproductive Disorders: No Sexually Transmitted Disease: No HIV/AIDS: No Genitourinary: Yes (recurrent urinary tract infections, prostate ca) Prostate Problems, Kidney Stones, UTI-Chronic Gastrointestinal: Yes Gastroesophageal Reflux, Chronic Diarrhea, Hiatal Hernia, Ulcer Musculoskeletal: Yes Arthritis, Rheumatoid Arthritis, Back Injury, Chronic Back Pain, Fractures Endocrine: No HEENT: Yes Eye Injury Loss of Vision: Denies Hearing Impairment: Denies Cancer: Yes Prostate Did You Recieve Any Treatments: Yes What Type of Treatment Did You: Radiation Psychosocial: Yes (History of illicit and prescription drug abuse) Anxiety, Depression Integumentary: No Blood Disorders: No Adverse Reaction/Blood Tranf: No (N/A) Family Medical History Reviewed Nursing Family Hx Arthritis 19 MOTHER DIRECTOR RISK G8 SISTER FH: COPD (chronic obstructive pulmonary disease) Hypercholesterolemia 19 MOTHER Hypertension 19 MOTHER Heart Disease, Hypertension Physical Exam Vital Signs Vital Signs - First Documented 12/21/18 18:02 Temp 98.2 Pulse 78 Resp 17 B/P (MAP) 224/124 (157) Pulse Ox 97 O2 Delivery Room Air Capillary Refill : Less Than 3 Seconds Height, Weight, BMI Height: 5'7.00" Weight: 185lbs. 0.0oz. 83.089728km; 27.5 BMI Method:Stated General Appearance: WD/WN, no apparent distress Cardiovascular: normal peripheral pulses, regular rate, rhythm, no edema, no ga llop, no JVD, no murmur Respiratory: chest non-tender, lungs clear, normal breath sounds, no respiratory distress, no accessory muscle use Extremities: normal capillary refill Psychiatric: alert, oriented x 3 Crainal Nerves: normal hearing, normal speech, PERRL Coordination/Gait: normal finger to nose, normal gait Skin: normal color, warm/dry Progress/Results/Core Measures Results/Orders Lab Results Laboratory Tests Test 12/21/18 19:05 Range/Units White Blood Count 4.4 4.3-11.0 10^3/uL Red Blood Count 4.22 L 4.35-5.85 10^6/uL Hemoglobin 10.8 L 13.3-17.7 G/DL Hematocrit 34 L 40-54 % Mean Corpuscular Volume 81 80-99 FL Mean Corpuscular Hemoglobin 26 25-34 PG Mean Corpuscular Hemoglobin Concent 32 32-36 G/DL Red Cell Distribution Width 15.9 H 10.0-14.5 % Platelet Count 289 130-400 10^3/uL Mean Platelet Volume 8.7 7.4-10.4 FL Neutrophils (%) (Auto) 66 42-75 % Lymphocytes (%) (Auto) 19 12-44 % Monocytes (%) (Auto) 10 0-12 % Eosinophils (%) (Auto) 5 0-10 % Basophils (%) (Auto) 0 0-10 % Neutrophils # (Auto) 2.9 1.8-7.8 X 10^3 Lymphocytes # (Auto) 0.8 L 1.0-4.0 X 10^3 Monocytes # (Auto) 0.5 0.0-1.0 X 10^3 Eosinophils # (Auto) 0.2 0.0-0.3 10^3/uL Basophils # (Auto) 0.0 0.0-0.1 10^3/uL Sodium Level 140 135-145 MMOL/L Potassium Level 3.9 3.6-5.0 MMOL/L Chloride Level 101 98-107 MMOL/L Carbon Dioxide Level 27 21-32 MMOL/L Anion Gap 12 5-14 MMOL/L Blood Urea Nitrogen 14 7-18 MG/DL Creatinine 1.59 H 0.60-1.30 MG/DL Estimat Glomerular Filtration Rate 45 BUN/Creatinine Ratio 9 Glucose Level 99 70-105 MG/DL Calcium Level 10.1 8.5-10.1 MG/DL Corrected Calcium 9.8 8.5-10.1 MG/DL Magnesium Level 1.9 1.8-2.4 MG/DL Total Bilirubin 0.2 0.1-1.0 MG/DL Aspartate Amino Transf (AST/SGOT) 15 5-34 U/L Alanine Aminotransferase (ALT/SGPT) 16 0-55 U/L Alkaline Phosphatase 150 H 40-136 U/L Troponin I < 0.028 <0.028 NG/ML Total Protein 7.8 6.4-8.2 GM/DL Albumin 4.4 3.2-4.5 GM/DL My Orders Orders - GUILLERMO MONK Troponin I (12/21/18 18:33) Chest 1 View, Ap/Pa Only (12/21/18 18:33) Ekg Tracing (12/21/18 18:33) Ed Iv/Invasive Line Start (12/21/18 18:33) Monitor-Rhythm Ecg Trace Only (12/21/18 18:33) Cbc With Automated Diff (12/21/18 18:33) Comprehensive Metabolic Panel (12/21/18 18:33) Diphenhydramine Injection (Benadryl Inje (12/21/18 18:45) Ketorolac Injection (Toradol Injection) (12/21/18 18:45) Magnesium 1 Gm/100 Ml Ivpb (Magnesium [place] (12/21/18 18:45) Clonidine Tablet (Catapres Tablet) (12/21/18 18:45) Magnesium (12/21/18 18:33) Clonidine Tablet (Catapres Tablet) (12/21/18 19:32) Promethazine Injection (Phenergan Injec (12/21/18 20:00) Losartan Tablet (Cozaar Tablet) (12/21/18 21:00) Iv Infusion <= First Hr Ed (12/21/18 ) Medications Given in ED Vital Signs/I&O 12/21/18 12/21/18 18:02 22:13 Temp 98.2 Pulse 78 62 Resp 17 19 B/P (MAP) 224/124 (157) 166/112 (130) Pulse Ox 97 95 O2 Delivery Room Air Room Air Blood Pressure Mean: 157 Progress Progress Note : Time: 21:56 Progress Note I have seen and evaluated the patient. I have informed him of his laboratory findings. His blood pressure and migraine have improved and he wishes to go home at this time. HE agrees with plan of care, plans for discharge, return precautions were given. Departure Impression Primary Impression: Labile hypertension Disposition: 01 HOME, SELF-CARE Condition: Stable/Unchanged Departure-Patient Inst. Decision time for Depature: 21:56 Referrals: ANDRES RABAGO DO (PCP/Family) Primary Care Physician Patient Instructions: High Blood Pressure in Adults Add. Discharge Instructions: Resume your home medications as previously prescribed. Follow-up with her primary care provider within 1 week for recheck. Return back to the emergency room for worsening symptoms or concerns as needed. All discharge instructions reviewed with patient and/or family. Voiced understanding. GUILLERMO MONK Dec 21, 2018 21:38
[2018-12-21 22:13] VITALS: BP 166/112
== END 2018-12-21 22:13 | disposition home or self-care (01) ==
LOC: EDUNIT# 17:53 → ER 17:54
DX: I10 Essential (primary) hypertension (principal); G47.30 Sleep apnea, unspecified; E78.00 Pure hypercholesterolemia, unspecified; I25.2 Old myocardial infarction; I25.10 Atherosclerotic heart disease of native coronary artery without angina pectoris; K21.9 Gastro-esophageal reflux disease without esophagitis; M06.9 Rheumatoid arthritis, unspecified; F41.9 Anxiety disorder, unspecified; F32.9 Major depressive disorder, single episode, unspecified; G43.909 Migraine, unspecified, not intractable, without status migrainosus; Z82.49 Family history of ischemic heart disease and other diseases of the circulatory system; Z87.19 Personal history of other diseases of the digestive system; Z85.46 Personal history of malignant neoplasm of prostate; Z87.440 Personal history of urinary (tract) infections; Z86.73 Personal history of transient ischemic attack (TIA), and cerebral infarction without residual deficits; Z86.718 Personal history of other venous thrombosis and embolism; Z88.0 Allergy status to penicillin; Z79.82 Long term (current) use of aspirin; Z79.02 Long term (current) use of antithrombotics/antiplatelets; Z87.891 Personal history of nicotine dependence; Z95.5 Presence of coronary angioplasty implant and graft
CPT/HCPCS: 36415; 71045; 80053; 83735; 84484; 85025; 93005; 93041; 96365; 96375

== ENCOUNTER 2018-12-22 06:44 | Outpatient (CLI) | payer OTHER ==
[~2018-12-22] VITALS: Ht 175.3 cm; Wt 83.9 kg
== END 2018-12-22 11:03 | disposition home or self-care (01) ==
LOC: PREOP 06:44
PROVIDERS: ATTEND Surgery
DX: Z01.818 Encounter for other preprocedural examination (principal)

== ENCOUNTER 2018-12-24 15:25 | Emergency (ER) | payer OTHER ==
[~2018-12-24] VITALS: Ht 175.3 cm; Wt 83.9 kg
--- OUTSIDE RECORDS SUMMARY | 2018-12-24 15:31 | XMS REPORT | Clinical Summary ---
Author Author [facility] Organization [facility] Address Unknown Phone Unavailable Care Team Providers Care Marketing Proposal Specialist Name Role Phone Leroy Lao MD [address] Silver Hernandes DO PCP Source Comments Some departments are not documenting in the electronic medical record. If you d o not see the information that you expected, contact Release of Information in [facility] [employer] Information Management department at [phone] for further assistan ce in locating additional records.[facility] Allergies Comments Active Allergy Reactions Severity [...] 7 Coronary artery disease every [address] [place] artery of minutes [place] heart with stable needed for angina pectoris [...] Unstable angina 08/13/2016 Coronary artery disease of [place] artery of [place] heart with stable angina 08/09/2016 pectoris Overview: 07/29/16: heart cath ([place], [place]) - total occlusion of the right [...] Comments Vital Sign 150/72 05/16/2017 3:11 PM SUPERINTENDENT GENERAL Blood Pressure 73 05/16/2017 3:11 PM SUPERINTENDENT GENERAL Pulse 36.8 C (98.2 F) 03/06/2017 1:42 PM CDT Temperature - - Respiratory Rate 96% 03/06/2017 1:42 PM CDT Oxygen Saturation - - Inhaled Oxygen Concentration 82.6 kg (182 lb) 05/16/2017 3:11 PM SUPERINTENDENT GENERAL Weight 175.3 cm (5' 9") 05/16/2017 3:11 PM SUPERINTENDENT GENERAL Height 26.88 05/16/2017 3:11 PM SUPERINTENDENT GENERAL Body Mass Index Plan of Treatment Health Maintenance Due Date Last Done Comments HEPATITIS C SCREENING 1961 PHYSICAL (COMPREHENSIVE) 1968 EXAM HIV SCREENING 1976 DTAP/TDAP VACCINES (1 - 1979 Tdap) COLORECTAL CANCER 2011 SCREENING SHINGLES RECOMBINANT 2011 VACCINE (1 of 2) INFLUENZA VACCINE 03/20/2019 Results Not on filefrom Last 3 Months 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
--- OUTSIDE RECORDS SUMMARY | 2018-12-24 15:31 | XMS REPORT | Encounter Summary ---
Author Author [facility] Organization [facility] Address Unknown Phone Unavailable Care Team Providers Care Steel Rod Buster Name Role Phone Leroy Lao MD 21 Silver Hernandes DO PCP Reason for Visit * Reason Comments Medication Refill Encounter Details Care Team Description Date Type Department David Simms MD [address] [id number] Medication Refill 07/31/2018 Refill [facility] [address] [address] Social History Date Tobacco Use Types Packs/Day [...]
--- OUTSIDE RECORDS SUMMARY | 2018-12-24 15:31 | XMS REPORT | Encounter Summary ---
Author Author [facility] Organization [facility] Address Unknown Phone Unavailable Care Team Providers Care Gallery Or Museum Technician Name Role Phone Leroy Lao MD 21 Silver Hernandes DO PCP Reason for Visit * Reason Comments Medication Refill Encounter Details Care Team Description Date Type Department Sarah Camara PA-C 4000 [facility] [place], [place] [id number] Medication Refill 12/19/2018 Refill [facility] 4000 [facility] [place] [address] Social History Date Tobacco Use Types Packs/Day [...] Visit Diagnoses Diagnosis Coronary artery disease of [place] artery of [place] heart with stable angina pectoris (HCC) Essential hypertension Unspecified essential hypertension Mixed hyperlipidemia Gastroesophageal reflux disease, esophagitis presence not specified Ischemic chest pain Chest pain, unspecified Tobacco abuse Tobacco use disorder History of noncompliance with medical treatment Personal history of noncompliance with medical treatment, presenting hazards to health documented in this encounter
--- NOTE | 2018-12-24 15:39 | NUR ---
pt here with " son". pt alert gcs 15. pt c/o " my bp is too high". pt relates he was here in er last week same c/o and relates he is on 3 bp meds. pt also c/o h/a rating 9 and relates he has a h/o " migraines". pt also c/o abd pain says he gets his mary carmen out next week and relates he is nauseous and had v/d x 1 each today. denies chest pain. denies dyspnea and no acute sighns of dyspena noted. lungs cta bilaterally. abd firm and appears distended tender to palpation allquads and neg pulsating massess noted. pt also c/o occasional blurry vision and dizziness. pt already on tele shows sr 63. bp machine is 188/99 ausc hr 68 reg ausc resp 16 normal recheck temp 98.0 p ox r/a is 97. done silvia pt at 1545.
--- NOTE | 2018-12-24 15:55 | ED Cardiac General ---
History of Present Illness General Chief Complaint: Cardiac/General Problems Stated Complaint: HIGH BLOOD PRESSURE (205/134) Nursing Triage Note: Pt presents with CO hypertension beginning yesterday. CO N/V since this morning. Source: patient History of Present Illness Date Seen by Provider: Dec 24, 2018 Time Seen by Provider: 15:50 Initial Comments PT ARRIVES VIA POV FROM HOME C/O ELEVATED BP--STATES BP 205/134 AT HOME JUST PRIOR TO ARRIVAL STATES HE HAS BEEN CHECKING HIS BP FREQUENTLY, AND HAS BEEN ELEVATED SINCE YESTERDAY, ( HOWEVER, HAS BEEN HAVING BP'S IN > 200'S SYSTOLIC FOR SOME TIME NOW) STATES "I GOT THEM BAD MIGRAINES WITH EM"--HEADACHES ARE EXACTLY THE SAME PREVIOUS HEADACHES THAT HE HAS HAD FOR YEARS. HAS NOT TAKEN ANYTHING FOR HIS HEADACHE C/O NAUSEA AND VOMITED X1 THIS AM, DIARRHEA X 1 THIS AM NO VISION CHANGES NO PARESTHESIAS OR MOTOR DEFICITS NO CHEST PAIN NO SHORTNESS OF BREATH HEART POUNDING AT TIMES BUT NOT BEATING IRREGULAR. NO SWELLING IN LEGS/ FEET OR PAIN IN CALVES NO DIZZINESS NO MEDICATION CHANGES NO MISSED DOSES OF MEDICATIONS PT HAS HISTORY OF THIS MULTIPLE TIMES, WITH MULTIPLE ER VISITS FOR SAME PT STATES HE IS CURRENTLY TAKING: AMLODIPINE, LABETALOL, CLONIDINE, LOSARTAN--HOWEVER SEPTEMBER [address] ELIAS IS: COREG, CLONIDINE, LOSARTAN, AMLODIPINE HAS NOT TAKEN ANY ADDITIONAL DOSES OF MEDICATIONS HAS NOT TAKEN ANYTHING FOR HEADACHE STATES HE IS SUPPOSED TO BE HAVING HIS GALLBLADDER REMOVED THIS WEEK BY DR. BISWAS STATES HE DOES NOT FEEL STRESSED OR ANXIOUS ABOUT IT, HAS HAD MULTIPLE SURGERIES IN THE PAST AND NOT HAD ANY PROBLEMS DENIES ANY NEW STRESSORS PT SEES DR. RABAGO--LAST VISIT WAS 2 WEEKS AGO AND NEXT APPOINTMENT IS NEXT WEEK PT ALSO SEES DR. ELIAS FOR CARDIOLOGY --HAD CARDIAC CATH IN SEPTEMBER--NO INTERVENTION, HAS NOT FOLLOWED UP WITH DR. ELIAS SINCE THEN PT HAS HAD 13 VISITS HERE THIS YEAR, MANY FOR THIS SAME COMPLAINT, BUT ALSO GI AND UROLOGICAL PROBLEMS/KIDNEY STONE: SEPTEMBER--KIDNEY STONE 10/11--CARDIAC CATH--ANGIOPLASTY 11/27 --RECTAL BLEEDING, HAD EGD/COLONOSCOPY 12/06-ER FOR DEHYDRATION 12/17--HTN, HEADACHE 12/21--HTN, HEADACHE SEE OLD CHARTS FOR DETAILS PT HAS HAD A MULTITUDE OF VISITS OVER THE YEARS, WITH MANY FOR UNCONTROLLED HTN LONG HISTORY OF NON-COMPLIANCE Allergies and Home Medications Allergies Coded Allergies: penicillin G (Verified Allergy, Severe, SWELLING, 12/22/18) Home Medications Amlodipine Besylate 10 Mg Tablet, 10 MG PO DAILY, (Reported) LAST FILLED #90 06-16-18 Aspirin 81 Mg Tablet.dr, 81 MG PO HS, (Reported) Atorvastatin Calcium 10 Mg Tablet, 10 MG PO HS, (Reported) LAST FILLED #30 08-24-18 Bupropion HCl 150 Mg Tablet.er, 150 MG PO BID, (Reported) Buspirone HCl 15 Mg Tablet, 15 MG PO TID, (Reported) Carvedilol 6.25 Mg Tablet, 6.25 MG PO BID, (Reported) LAST FILLED #180 06-17-18 Clonidine HCl 0.1 Mg Tablet, 0.1 MG PO TID, (Reported) Clopidogrel Bisulfate 75 Mg Tablet, 75 MG PO HS, (Reported) Hydralazine HCl 10 Mg Tablet, 10 MG PO TID Prescribed by: MORGAN LARES on 12/24/18 170 Losartan Potassium 100 Mg Tablet, 100 MG PO HS, (Reported) Nitrofurantoin Monohyd/M-Cryst 100 Mg Capsule, 100 MG PO BID Prescribed by: MORGAN LARES on 12/24/18 170 Nitroglycerin 0.4 Mg Tab.subl, 0.4 MG SL UD PRN for CHEST PAIN, (Reported) PLACE 1 TAB UNDER TONGUE NEEDED FOR CHEST PAIN; IF PAIN REMAINS AFTER 5 MINUTES, CALL 911 Wrights-3 Fatty Acids/Fish Oil 1 Each Capsule, 1,000 MG PO BID, (Reported) Pantoprazole Sodium 40 Mg Tablet.dr, 40 MG PO DAILY Prescribed by: MERLIN BISWAS on 12/05/18 165 Sertraline HCl 100 Mg Tablet, 100 MG PO DAILY, (Reported) LAST FILLED #30 08-24-18 TAKES ALONG WITH 25MG TABLET Sertraline HCl 25 Mg Tablet, 25 MG PO DAILY, (Reported) TAKES ALONG WITH 100MG TABLET Patient Home Medication List Home Medication List Reviewed: Yes Review of Systems Review of Systems Constitutional: no symptoms reported; No chills, No diaphoresis, No dizziness, No fever EENTM: Blurred Vision; No Double Vision Respiratory: No Symptoms Reported; Denies Orthopnea, Denies Shortness of Air Cardiovascular: See HPI; Denies Chest Pain, Denies Edema, Denies Lightheadedness, Denies Syncope Gastrointestinal: See HPI, Abdominal Pain (ONGOING ISSUE--TO HAVE CHOLECYSTECTOMY THIS WEEK), Nausea, Poor Appetite, Poor Fluid Intake, Vomiting, Other (STATES HE HAS NOT BEEN EATING AT ALL DUE TO ABDOMINAL PAIN AND NAUSEA/VOMITING WHEN HE TRIES TO EAT. HAS BEEN DRINKING ONLY WATER. ) Genitourinary: Denies Burning; Frequency; Denies Flank Pain, Denies Pain, Denies Urgency Musculoskeletal: no symptoms reported Skin: no symptoms reported Psychiatric/Neurological: See HPI, Headache; Denies Numbness, Denies Paresthesia, Denies Seizure, Denies Tingling, Denies Tremors, Denies Weakness Endocrine: No Symptoms Reported Hematologic/Lymphatic: No Symptoms Reported Past [id number] Hx Patient Social History Alcohol Use: Occasionally Uses Alcohol Beverage of Choice: Beer Recreational Drug Use: Yes (+ IV METH USE, ALSO THC, WELL RX DRUGS) Drug of Choice: + IV METH USE, ALSO THC, WELL RX DRUGS Smoking Status: Former Smoker (1 06/21 PPD) Type Used: Cigarettes Former Smoker, Quit: Aug 24, 2016 2nd Hand Smoke Exposure: Yes Recent Foreign Travel: No Contact w/Someone Who Travel: No Recent Infectious Disease Expo: No Recent Hopitalizations: No Immunizations Up To Date Tetanus Booster (TDap): Less than 5yrs PED Vaccines UTD: No Date of Influenza Vaccine: Jul 28, 2017 Seasonal Allergies Seasonal Allergies: No Past Medical History Surgeries: Yes (CRUSHED THUMB, HERNIA, ESWL, BRACH YTHERAPY; MULTIPLE CARDIAC CATHS--STENTS X 3 PLUS MULTIPLE ANGIOPLASTIES--LAST CATH 10/11/18 WITH ANGIOPLASTY; EGD/COLONOSCOPY; UMBILICAL HERNIA REPAIR; RIGHT INGUINAL HERNIA REPAIR; RIGHT THUMB SURGERY; RIGHT URETERAL STONE LITHOTRIPSY) Bladder Surgery, Cardiac, Coronary Stent, Orthopedic, Prostatectomy Respiratory: Yes Sleep Apnea Currently Using CPAP: No Currently Using BIPAP: No Cardiac: Yes (CARDIAC CATHS--STENTS X 3 PLUS MULTIPLE ANGIOPLASTIES--LAST CATH 10/11/18 WITH ANGIOPLASTY ) Coronary Artery Disease, Deep Vein Thrombosis, Heart Attack, High Cholesterol, Hypertension Neurological: Yes (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; PAEZ'S ALSO DUE TO UNCONTROLLED HTN) Headaches /Migraines, TIA Reproductive Disorders: No Sexually Transmitted Disease: No HIV/AIDS: No Genitourinary: Yes (recurrent urinary tract infections, prostate ca; CHRONIC RENAL INSUFFICIENCY) Kidney Infection, Prostate Problems, Bladder Infection, Kidney Stones, UTI- Chronic Gastrointestinal: Yes Gastroesophageal Reflux, Chronic Diarrhea, Hiatal Hernia, Ulcer, Gall Bladder Disease Musculoskeletal: Yes Arthritis, Rheumatoid Arthritis, Back Injury, Chronic Back Pain, Fractures Endocrine: No (BUT HAS HAD HYPERGLYCEMIA AT TIMES) HEENT: Yes Eye Injury Loss of Vision: Denies Hearing Impairment: Denies Cancer: Yes Prostate Did You Recieve Any Treatments: Yes What Type of Treatment Did You: Radiation Psychosocial: Yes (History of illicit and prescription drug abuse) Sleep Difficulties, Anxiety, Depression Integumentary: No Blood Disorders: No Adverse Reaction/Blood Tranf: No (N/A) Family Medical History Arthritis 19 MOTHER GEOTHERMAL OPERATIONS ENGINEER G8 SISTER FH: COPD (chronic obstructive pulmonary disease) Hypercholesterolemia 19 MOTHER Hypertension 19 MOTHER Heart Disease, Hypertension Physical Exam Vital Signs Vital Signs - First Documented 12/24/18 15:30 Temp 99.4 Pulse 68 Resp 14 B/P (MAP) 190/124 (146) Pulse Ox 97 O2 Delivery Room Air Capillary Refill : Less Than 3 Seconds Height, Weight, BMI Height: 5'9.00" Weight: 185lbs. 0.0oz. 83.270856wr; 27.3 BMI Method:Stated General Appearance: No Apparent Distress, WD/WN Neck: Normal Inspection Respiratory: Normal Breath Sounds, No Accessory Muscle Use, No Respiratory Distress Cardiovascular: Regular Rate, Rhythm, No Edema, No Murmur Gastrointestinal: Normal Bowel Sounds, No Organomegaly, Soft, Tenderness (RUQ AND EPIGASTRIC) Extremity: Normal Inspection, No Pedal Edema Neurologic/Psychiatric: Alert, Oriented x3, No Motor/Sensory Deficits, Normal Mood/Affect, financial underwriter II-XII Norm as Tested; No Abnormal Cerebellar Tests Skin: Normal Color, Warm/Dry Progress/Results/Core Measures Results/Orders Lab Results Laboratory Tests Test 12/24/18 15:52 12/24/18 16:28 Range/Units White Blood Count 4.3 4.3-11.0 10^3/uL Red Blood Count 4.34 L 4.35-5.85 10^6/uL Hemoglobin 11.1 L 13.3-17.7 G/DL Hematocrit 36 L 40-54 % Mean Corpuscular Volume 82 80-99 FL Mean Corpuscular Hemoglobin 26 25-34 PG Mean Corpuscular Hemoglobin Concent 31 L 32-36 G/DL Red Cell Distribution Width 15.9 H 10.0-14.5 % Platelet Count 271 130-400 10^3/uL Mean Platelet Volume 9.0 7.4-10.4 FL Neutrophils (%) (Auto) 65 42-75 % Lymphocytes (%) (Auto) 20 12-44 % Monocytes (%) (Auto) 10 0-12 % Eosinophils (%) (Auto) 6 0-10 % Basophils (%) (Auto) 1 0-10 % Neutrophils # (Auto) 2.8 1.8-7.8 X 10^3 Lymphocytes # (Auto) 0.9 L 1.0-4.0 X 10^3 Monocytes # (Auto) 0.4 0.0-1.0 X 10^3 Eosinophils # (Auto) 0.3 0.0-0.3 10^3/uL Basophils # (Auto) 0.0 0.0-0.1 10^3/uL Prothrombin Time 13.0 12.2-14.7 SEC INR Comment 0.9 0.8-1.4 Activated Partial Thromboplast Time 26 24-35 SEC Sodium Level 139 135-145 MMOL/L Potassium Level 3.9 3.6-5.0 MMOL/L Chloride Level 101 98-107 MMOL/L Carbon Dioxide Level 27 21-32 MMOL/L Anion Gap 11 5-14 MMOL/L Blood Urea Nitrogen 17 7-18 MG/DL Creatinine 1.71 H 0.60-1.30 MG/DL Estimat Glomerular Filtration Rate 41 BUN/Creatinine Ratio 10 Glucose Level 108 H 70-105 MG/DL Calcium Level 9.3 8.5-10.1 MG/DL Corrected Calcium 9.1 8.5-10.1 MG/DL Magnesium Level 1.9 1.8-2.4 MG/DL Total Bilirubin 0.2 0.1-1.0 MG/DL Aspartate Amino Transf (AST/SGOT) 13 5-34 U/L Alanine Aminotransferase (ALT/SGPT) 17 0-55 U/L Alkaline Phosphatase 132 40-136 U/L Troponin I < 0.028 <0.028 NG/ML B-Type Natriuretic Peptide 200.8 H <100.0 PG/ML Total Protein 7.5 6.4-8.2 GM/DL Albumin 4.2 3.2-4.5 GM/DL TSH [place] Testing 1.98 0.35-4.94 UIU/ML Urine Color YELLOW Urine Clarity CLEAR Urine pH 7 5-9 Urine Specific [place] 1.010 L 1.016-1.022 Urine Protein NEGATIVE NEGATIVE Urine Glucose (UA) NEGATIVE NEGATIVE Urine Ketones NEGATIVE NEGATIVE Urine Nitrite NEGATIVE NEGATIVE Urine Bilirubin NEGATIVE NEGATIVE Urine Urobilinogen NORMAL NORMAL MG/DL Urine Leukocyte Esterase 3+ H NEGATIVE Urine RBC (Auto) 1+ H NEGATIVE Urine RBC NONE /HPF Urine WBC >100 H /HPF Urine Crystals NONE /LPF Urine Bacteria TRACE /HPF Urine Casts NONE /LPF Urine Mucus NEGATIVE /LPF Urine Culture Indicated YES Urine Opiates Screen NEGATIVE NEGATIVE Urine Oxycodone Screen NEGATIVE NEGATIVE Urine Methadone Screen NEGATIVE NEGATIVE Urine Propoxyphene Screen NEGATIVE NEGATIVE Urine Barbiturates Screen NEGATIVE NEGATIVE Ur Tricyclic Antidepressants Screen NEGATIVE NEGATIVE Urine Phencyclidine Screen NEGATIVE NEGATIVE Urine Amphetamines Screen NEGATIVE NEGATIVE Urine Methamphetamines Screen NEGATIVE NEGATIVE Urine Benzodiazepines Screen NEGATIVE NEGATIVE Urine Cocaine Screen NEGATIVE NEGATIVE Urine Cannabinoids Screen NEGATIVE NEGATIVE My Orders Orders - MORGAN LARES DO Ed Iv/Invasive Line Start (12/24/18 15:51) Ekg Tracing (12/24/18 15:51) Monitor-Rhythm Ecg Trace Only (12/24/18 15:51) BNP (12/24/18 15:51) Cbc With Automated Diff (12/24/18 15:51) Comprehensive Metabolic Panel (12/24/18 15:51) Drug Screen Stat (Urine) (12/24/18 15:51) Magnesium (12/24/18 15:51) Protime With Inr (12/24/18 15:51) Partial Thromboplastin Time (12/24/18 15:51) Thyroid Analyzer (12/24/18 15:51) Ua Culture If Indicated (12/24/18 15:51) Troponin I (12/24/18 15:51) Hydralazine Injection (Apresoline Inject (12/24/18 16:15) Ketorolac Injection (Toradol Injection) (12/24/18 16:15) Urine Culture (12/24/18 16:28) Ceftriaxone For Iv Use (Rocephin For I (12/24/18 17:00) Magnesium Oxide Tablet (Mag Ox Tablet) (12/24/18 17:15) Ceftriaxone For Iv Use (Rocephin For I (12/24/18 17:10) Water (Sterile) For Injection (Sterile W (12/24/18 17:12) Medications Given in ED Current Medications Medications Dose Ordered Sig/Mckenzie Route Start Time Stop Time Status Last Admin Dose Admin Ceftriaxone Sodium 1000 mg/ Sterile Water 10 ml @ 200 mls/hr ONCE ONCE IV 12/24/18 17:00 12/24/18 17:43 DC 12/24/18 17:23 200 MLS/HR Hydralazine HCl 10 mg ONCE ONCE IV 12/24/18 16:15 12/24/18 16:16 DC 12/24/18 16:34 10 MG Ketorolac Tromethamine 30 mg ONCE ONCE IVP 12/24/18 16:15 12/24/18 16:16 DC 12/24/18 16:37 30 MG Magnesium Oxide 1,200 mg ONCE ONCE PO 12/24/18 17:15 12/24/18 17:16 DC 12/24/18 17:22 1,200 MG Vital Signs/I&O 12/24/18 12/24/18 15:30 17:34 Temp 99.4 98.5 Pulse 68 56 Resp 14 16 B/P (MAP) 190/124 (146) 183/96 (125) Pulse Ox 97 96 O2 Delivery Room Air Room Air Blood Pressure Mean: 146 Progress Progress Note : Progress Note BP DOWN AND HEADACHE IMPROVED AT DISMISSAL Initial ECG Impression Date: Dec 24, 2018 Initial ECG Impression Time: 16:05 Initial ECG Rate: 64 Initial ECG Rhythm: Normal Sinus Diagnostic Imaging Comments CXR--NO ACUTE PROCESS, PER RADIOLOGIST REPORT Reviewed: Reviewed by Me Departure Impression Primary Impression: Uncontrolled hypertension Additional Impressions: Chronic renal insufficiency Chronic headaches UTI (urinary tract infection) Disposition: 01 HOME, SELF-CARE Condition: Improved Departure-Patient Inst. Referrals: ANDRES RABAGO DO (PCP/Family) Primary Care Physician Patient Instructions: Chronic Kidney Disease (DC), Dehydration, Adult (DC), Headache, Adult (DC), High Blood Pressure (DC), Urinary Tract Infection, Adult (DC) Add. Discharge Instructions: INCREASE YOUR CLEAR LIQUIDS--WATER, BROTH, JELLO, GATORADE CONTINUE YOUR BLOOD PRESSURE MEDICATIONS PRESCRIBED TAKE YOUR HOME NAUSEA MEDICATION NEEDED FOLLOW UP WITH DR. RABAGO OR DR. ELIAS IN 1-2 DAYS FOR FURTHER CARE FOLLOW UP WITH DR. BISWAS FOR GALLBLADDER REMOVAL THIS WEEK SCHEDULED. All discharge instructions reviewed with patient and/or family. Voiced understanding. Scripts Nitrofurantoin Monohyd/M-Cryst (Macrobid 100 mg Capsule) 100 Mg Capsule 100 MG PO BID, #20 CAP Prov: MORGAN LARES DO 12/24/18 Hydralazine HCl (Hydralazine HCl) 10 Mg Tablet 10 MG PO TID for Blood Pressure, #10 TAB Prov: MORGAN LARES DO 12/24/18 MORGAN LARES DO Dec 24, 2018 15:55
[2018-12-24 15:59] LABS: BASOPHILS % (AUTO) 1 % (0-10); EOSINOPHILS # (AUTO) 0.3 10^3/uL (0.0-0.3); EOSINOPHILS % (AUTO) 6 % (0-10); HEMATOCRIT 36 % (40-54); HEMOGLOBIN 11.1 G/DL (13.3-17.7); LYMPHOCYTES # (AUTO) 0.9 X 10^3 (1.0-4.0); LYMPHOCYTES % (AUTO) 20 % (12-44); MEAN CORPUSCULAR HEMOGLOBIN 26 PG (25-34); MEAN CORPUSCULAR HGB CONC 31 G/DL (32-36); MEAN CORPUSCULAR VOLUME 82 FL (80-99); MONOCYTES # (AUTO) 0.4 X 10^3 (0.0-1.0); MONOCYTES % (AUTO) 10 % (0-12); NEUTROPHILS # (AUTO) 2.8 X 10^3 (1.8-7.8); NEUTROPHILS % (AUTO) 65 % (42-75); PLATELET COUNT 271 10^3/uL (130-400); RED CELL DISTRIBUTION WIDTH 15.9 % (10.0-14.5); WHITE BLOOD COUNT 4.3 10^3/uL (4.3-11.0)
[2018-12-24] MEDS ORDERED: hydrALAZINE (APESOLINE) 20 MG/ML VIAL IV ONE (16:15)
[2018-12-24] MEDS ORDERED: KETOROLAC 30 MG/ML VIAL IVP ONE (16:15)
[2018-12-24 16:17] LABS: INR 0.9 (0.8-1.4)
[2018-12-24 16:21] LABS: ALANINE AMINOTRANSFERASE 17 U/L (0-55); ALBUMIN 4.2 GM/DL (3.2-4.5); ALKALINE PHOSPHATASE 132 U/L (40-136); BILIRUBIN,TOTAL 0.2 MG/DL (0.1-1.0); BUN/CREATININE RATIO 10; CALCIUM 9.3 MG/DL (8.5-10.1); CARBON DIOXIDE 27 MMOL/L (21-32); CHLORIDE 101 MMOL/L (98-107); CREATININE SERUM 1.71 MG/DL (0.60-1.30); GFR ESTIMATED 41; GLUCOSE 108 MG/DL (70-105); MAGNESIUM 1.9 MG/DL (1.8-2.4); POTASSIUM 3.9 MMOL/L (3.6-5.0); SODIUM 139 MMOL/L (135-145); TOTAL PROTEIN 7.5 GM/DL (6.4-8.2)
[2018-12-24 16:34] LABS: BILIRUBIN,URINE NEGATIVE (NEGATIVE); CLARITY,URINE CLEAR; COLOR,URINE YELLOW; GLUCOSE, URINE (UA) NEGATIVE (NEGATIVE); KETONES,URINE NEGATIVE (NEGATIVE); LEUKOCYTE ESTERASE ,URINE 3+ (NEGATIVE); NITRITE,URINE NEGATIVE (NEGATIVE); PH,URINE 7 (5-9); PROTEIN,URINE NEGATIVE (NEGATIVE); UROBILINOGEN,URINE NORMAL (NORMAL)
--- NOTE | 2018-12-24 16:38 | NUR ---
bp before apresoline was 176/96 tele shows sb 55
[2018-12-24 16:41] LABS: TSH (THYROID ANALYZER) 1.98 UIU/ML (0.35-4.94)
[2018-12-24 16:48] LABS: AMPHETAMINE SCREEN, URINE NEGATIVE (NEGATIVE); BARBITURATE SCREEN URINE NEGATIVE (NEGATIVE); BENZODIAZEPINES SCREEN URINE NEGATIVE (NEGATIVE); CANNABINOID SCREEN, URINE NEGATIVE (NEGATIVE); COCAINE SCREEN URINE NEGATIVE (NEGATIVE); METHADONE STAT NEGATIVE (NEGATIVE); METHAMPHETAMINE SCREEN URINE S NEGATIVE (NEGATIVE); OPIATE SCREEN URINE NEGATIVE (NEGATIVE); OXYCODONE STAT NEGATIVE (NEGATIVE); PROPOXYPHENE STAT NEGATIVE (NEGATIVE); TRICYCLIC ANTIDEPRESSANTS SCRE NEGATIVE (NEGATIVE)
[2018-12-24 16:52] LABS: BACTERIA,URINE TRACE /HPF; WBC,URINE >100 /HPF
[2018-12-24] MEDS ORDERED: cefTRIAXone FOR IV USE 1,000 MG in WATER (STERILE) FOR INJECTION 10 ML IV ONE (17:00)
[2018-12-24] MEDS ORDERED: HYDR-3922 PO (17:07)
[2018-12-24] MEDS ORDERED: NITR-65 PO (17:07)
[2018-12-24] MEDS ORDERED: cefTRIAXone 1,000 MG IV (ROCEPHIN) VIAL ONE (17:10)
--- NOTE | 2018-12-24 17:11 | NUR ---
last bp is 167/97 dr is ok for d/c if last one is similiar.
[2018-12-24] MEDS ORDERED: WATER (STERILE) FOR INJECTION 10 ML ONE (17:12)
[2018-12-24] MEDS ORDERED: MAGNESIUM OXIDE (MAG-OX)400 MG TAB PO ONE (17:15)
[2018-12-24 17:34] VITALS: BP 183/96
--- NOTE | 2018-12-24 17:38 | NUR ---
bp before rocephin was 183/96 bp after rocephin was again same thing 183/[address] grewal with d/c with bp 183/96. d/c instructions to pt. told to read all papers. scripts faxed. pt left ambulatory by self. pt knows f/u. i went over the handtyped by information on the chart. iv d/cd by me prior to d/c. h/a rating 8 at d/c. no acute sighns of dyspnea noted at d/c. pt alert gcs 15 at d/c. tele showes sb55. ausc hr 56 reg ausc resp 16 normal recheck temp 98.5 p ox r/a is 96.
[2018-12-28] MEDS ORDERED: DOCU-143 PO (10:51)
[2018-12-28] MEDS ORDERED: ACHD5005 PO (10:51)
== END 2018-12-24 17:34 | disposition home or self-care (01) ==
LOC: EDUNIT# 15:25 → ER 15:26
DX: I12.9 Hypertensive chronic kidney disease with stage 1 through stage 4 chronic kidney disease, or unspecified chronic kidney disease (principal); N18.9 Chronic kidney disease, unspecified; N39.0 Urinary tract infection, site not specified; R51 Headache; G47.30 Sleep apnea, unspecified; F15.10 Other stimulant abuse, uncomplicated; I25.10 Atherosclerotic heart disease of native coronary artery without angina pectoris; I25.2 Old myocardial infarction; E78.00 Pure hypercholesterolemia, unspecified; K21.9 Gastro-esophageal reflux disease without esophagitis; F12.10 Cannabis abuse, uncomplicated; M06.9 Rheumatoid arthritis, unspecified; F41.9 Anxiety disorder, unspecified; F32.9 Major depressive disorder, single episode, unspecified; Z86.69 Personal history of other diseases of the nervous system and sense organs; Z87.19 Personal history of other diseases of the digestive system; Z87.440 Personal history of urinary (tract) infections; Z85.46 Personal history of malignant neoplasm of prostate; Z86.73 Personal history of transient ischemic attack (TIA), and cerebral infarction without residual deficits; Z86.718 Personal history of other venous thrombosis and embolism; Z98.890 Other specified postprocedural states; Z87.891 Personal history of nicotine dependence; Z87.442 Personal history of urinary calculi; Z95.5 Presence of coronary angioplasty implant and graft; Z88.0 Allergy status to penicillin; Z79.82 Long term (current) use of aspirin; Z82.49 Family history of ischemic heart disease and other diseases of the circulatory system
CPT/HCPCS: 36415; 80053; 80306; 81000; 83735; 83880; 84443; 84484; 85025; 85610; 85730; 87088; 93005; 93041; 96374; 96375

== ENCOUNTER 2018-12-28 07:59 | Day surgery (SDC) | payer OTHER ==
[2018-12-28] VITALS (19 sets, daily range): BP systolic 148–259; BP diastolic 88–138
[~2018-12-28] VITALS: Ht 175.3 cm; Wt 83.9 kg
[~2018-12-28 07:59] MED LIST changes: +HYDR-3922 PO
--- NOTE | 2018-12-28 08:17 | Progress Note-Pre Operative ---
Pre-Operative Progress Note H&P Reviewed The H&P was reviewed, patient examined and no changes noted. Date Seen by Provider: Dec 28, 2018 Time Seen by Provider: 08:17 Date H&P Reviewed: Dec 28, 2018 Time H&P Reviewed: 08:17 Pre-Operative Diagnosis: ruq abd, hyperfunctioning gallbladder MERLIN BISWAS DO Dec 28, 2018 08:17
[2018-12-28] MEDS ORDERED: BUP/EPI 0.5% 1:200,000 (SENSORCAINE) 30 ML VIAL ONE (08:21)
[2018-12-28] MEDS: LACTATED RINGERS 1,000 ML IV PRN ×2 (08:25→10:45)
[2018-12-28] MEDS ORDERED: CLINDAMYCIN 600 MG/50 ML IVPB 50 ML IV ONE (08:45)
[2018-12-28] MEDS ORDERED: CATHETER FLUSH 10 ML SYR IV PRN (08:45)
[2018-12-28 09:04] LABS: AMPHETAMINE SCREEN, URINE NEGATIVE (NEGATIVE); BARBITURATE SCREEN URINE NEGATIVE (NEGATIVE); BENZODIAZEPINES SCREEN URINE NEGATIVE (NEGATIVE); CANNABINOID SCREEN, URINE NEGATIVE (NEGATIVE); COCAINE SCREEN URINE NEGATIVE (NEGATIVE); METHADONE STAT NEGATIVE (NEGATIVE); METHAMPHETAMINE SCREEN URINE S NEGATIVE (NEGATIVE); OPIATE SCREEN URINE NEGATIVE (NEGATIVE); OXYCODONE STAT NEGATIVE (NEGATIVE); PROPOXYPHENE STAT NEGATIVE (NEGATIVE); TRICYCLIC ANTIDEPRESSANTS SCRE NEGATIVE (NEGATIVE)
[2018-12-28] MEDS ORDERED: SUCCINYLCHOLINE INJ 100 MG/5 ML SYR ONE (09:20)
[2018-12-28] MEDS ORDERED: LIDOCAINE PF 2% 5 ML (XYLOCAINE) VIAL ONE (09:20)
[2018-12-28] MEDS ORDERED: ONDANSETRON 4 MG/2 ML (SDV) Z0FRAN ONE (09:20)
[2018-12-28] MEDS ORDERED: proPOfol 200 MG/20 ML (DIPRIVAN) VIAL IV ONE (09:20)
[2018-12-28] MEDS ORDERED: ROCURONIUM 10 MG/ML 5 ML SYRINGE IV ONE (09:20)
[2018-12-28] MEDS ORDERED: fentaNYL INJECTION 100 MCG/2 ML AMP ONE (09:21)
[2018-12-28] MEDS ORDERED: MIDAZOLAM 2 MG/2 ML (VERSED) VIAL ONE (09:21)
[2018-12-28] MEDS ORDERED: SEVOFLURANE (ULTANE) 15 ML INHAL SOLN ONE ×2 (09:22→10:35)
[2018-12-28] MEDS ORDERED: DEXAMETHASONE 10 MG/ML (DECADRON) 1 ML VIAL ONE (09:22)
[2018-12-28] MEDS ORDERED: GLYCOPYRROLATE 0.2 MG/ML (ROBINUL) 2 ML VIAL ONE (10:42)
[2018-12-28] MEDS ORDERED: NEOSTIGMINE 3 MG/3 ML VIAL ONE (10:42)
--- NOTE | 2018-12-28 10:48 | Diagnostic Imaging Report ---
INDICATION: Fluoroscopy during intraoperative cholangiogram. FINDINGS: Fluoroscopy was provided in the OR during intraoperative cholangiogram. 11 seconds of fluoroscopy was utilized. Images demonstrate contrast being injected via the cystic duct remnant. The visualized extrahepatic duct is normal caliber. No filling defects are seen. Contrast flows into the duodenum. No significant intrahepatic ductal opacification is noted. IMPRESSION: Fluoroscopy during intraoperative mammogram. Dictated by: Dictated on workstation # [id number]
--- NOTE | 2018-12-28 10:48 | Progress Note-Post Operative ---
Post-Operative Progess Note Surgeon (s)/Cinema Operator (s) Surgeon MERLIN BISWAS DO Cinema Operator: Dr. Bishop Pre-Operative Diagnosis ruq abd, hyperfunctioning gallbladder Post-Operative Diagnosis same Procedure & Operative Findings Date of Procedure 12/28/18 Procedure Performed/Findings lap mary carmen c ioc Anesthesia Type gen Estimated Blood Loss Estimated blood loss (mL): min Specimens/Packing Specimens Removed gallbladder MERLIN BISWAS DO Dec 28, 2018 10:48
[2018-12-28] MEDS ORDERED: ACHD5005 PO (10:51)
[2018-12-28] MEDS ORDERED: DOCU-143 PO (10:51)
--- NOTE | 2018-12-28 10:53 | Discharge Inst-Simple/Standard ---
Discharge Inst-Standard Discharge Medications New, Converted or Re-Newed RX: RX on Chart Patient Instructions/Follow Up Plan of Care/Instructions/FU: 2-3 weeks Nathan Activity as Tolerated: No Discharge Diet: Regular Diet Other Inst to Patient Follow up Appt: Make appointment for 2-3 weeks. Restart Plavix in 3 days. Instructions: No lifting greater than 10 pounds. No strenuous activity. May shower in 24 hours, no tub bath or soaking. Use incentive spirometer at home as directed. No Smoking Skin/Wound Care: You have special glue over incisions it will fall off on its own. Symptoms to Report: Appetite Changes, Extremity Discoloration, Numbness/Tingling, Swelling Increased, Bleeding Excessive, Eyesight Changes, Pain Increased, Urine Color Change, Constipation(Persistent), Fever over 101 degree F, Pain/Pressure in chest, Urinating Difficulty, Cough Up/Vomit Blood, Heart Beat Irreg/Pounding, Pain/Pressure in jaw, Vaginal Bleeding Increase, Cramps in feet or legs, Lightheadedness, Pain/Pressure in shoulder, Diarrhea(Persistent), Memory Changes Suddenly, Questions/Concerns, Weight gain consecutive days, Dizziness/Fainting, Nausea/Vomiting, Shortness of Breath, Weight gain over 2 pounds. If eyes or skin turn yellow notify physician. If questions or concerns contact your physician Or seek help at emergency department. MERLIN BISWAS DO Dec 28, 2018 10:53
[2018-12-28] MEDS ORDERED: PROMETHAZINE INJ 25 MG/ML (PHENERGAN) AMP IVP ONE (11:00)
[2018-12-28] MEDS ORDERED: MEPERIDINE (DEMEROL) INJ 50 MG/ML IVP ONE (11:00)
[2018-12-28] MEDS ORDERED: ONDANSETRON 4 MG/2 ML (SDV) Z0FRAN IVP PRN (11:00)
[2018-12-28] MEDS ORDERED: KETOROLAC 30 MG/ML VIAL IVP ONE (11:00)
[2018-12-28] MEDS ORDERED: fentaNYL INJECTION 100 MCG/2 ML AMP IVP ONE (11:00)
[2018-12-28] MEDS ORDERED: hydrALAZINE (APESOLINE) 20 MG/ML VIAL ONE (11:13)
[2018-12-28] MEDS: hydrALAZINE (APESOLINE) 20 MG/ML VIAL IV PRN ×4 (11:20→12:05)
--- NOTE | 2018-12-28 12:20 | Anesthesia-General Post-Op ---
General Patient Condition Mental Status/LOC: Same as Preop Cardiovascular: Satisfactory Nausea/Vomiting: Absent Respiratory: Satisfactory Pain: Controlled Complications: Absent Post Op Complications Complications None Follow Up Care/Instructions Patient Instructions None needed. Anesthesia/Patient Condition Patient Condition Patient is doing well, no complaints, stable vital signs, no apparent adverse anesthesia problems. No complications reported per nursing. CHASIDY CORTEZ CRNA Dec 28, 2018 12:20
--- NOTE | 2018-12-28 12:35 | NUR ---
PT C/O CHEST PAIN, RADIATES TO LEFT ET RIGHT CHEST. DENIES OTHER SYMPTOMS. MALICK HERNANDEZ CRNA NOTIFIED. ORDERS REC'D. 1240 EKG DONE 1242 NITRO 0.4MG (PT'S OWN MEDS) GIVEN PER DESHAUN'S ORDERS. 1248 NITRO DISSOLVING SLOWLY MORPHINE 2MG IVP GIVEN PER DESHAUN'S ORDERS 1252 ZOFRAN 4MG IV GIVEN FOR NEW C/O NAUSEA 1255 DR BISWAS NOTIFIED OF CHANGES. NO NEW ORDERS.
[2018-12-28] MEDS ORDERED: morphine INJ 10 MG/ML 1ML (SYR OR VIAL) ONE (12:37)
[2018-12-28] MEDS ORDERED: morphine INJ 10 MG/ML 1ML (SYR OR VIAL) IVP STA (12:40)
[2018-12-28] MEDS ORDERED: ONDANSETRON 4 MG/2 ML (SDV) Z0FRAN IVP ONE (13:00)
[2018-12-28] MEDS ORDERED: HYDROcodone/APAP 5 MG/325 MG (LORTAB) TAB ONE (13:04)
[2018-12-28] MEDS ORDERED: HYDROcodone/APAP 5 MG/325 MG (LORTAB) TAB PO ONE (13:15)
--- NOTE | 2018-12-28 13:15 | NUR ---
PT C/O CONT PAIN. HYDROCODONE GIVEN PER DR BISWAS'S ORDERS.
--- NOTE | 2018-12-28 13:30 | NUR ---
BP REMAINS ELEVATED. PT C/O CONT PAIN 03/29. ABD DISTENDED. FERNY MEADE NOTIFIED. REQUESTED DR BISWAS BE NOTIFIED FOR FURTHER ORDERS. 1335 PT REQUESTS TO URINATE. THIS RN TO BEDSIDE. RIGHT FACIAL DROOP NOTED. PT UNABLE TO SMILE EVENLY, UNABLE TO RAISE RIGHT EYEBROW. WEAKNESS IN ALL EXTREMITIES. UNABLE TO HOLD UPPER OR LOWER EXTREMITIES UP TO COUNT OF FIVE. SPEECH SLURRED. WILL NOT REPORT YEAR. RIGHT ARM/HAND DECORTICATE FLEXION NOTED. DR BISWAS NOTIFIED, INSTRUCTED TO SEND PT TO ER FOR EVAL. TOP LIFT NAILER NOTIFIED. [address] VIA CART ON WAY TO ER. 1345 STROKE TEAM ACTIVATED. 1400 REPORT TO ER NURSES ET DR CEE. TRANSFER OF CARE TO ER.
--- NOTE | 2018-12-28 14:01 | Diagnostic Imaging Report ---
PROCEDURE: CT head wo r/o stroke. TECHNIQUE: Multiple contiguous axial images were obtained through the brain without the use of intravenous contrast. Auto Exposure Controls were utilized during the CT exam to meet ALARA standards for radiation dose reduction. INDICATION: Slurred speech and right-sided facial drooping. Patient undergoing cholecystectomy earlier today. COMPARISON: Correlation is made with head CT from 09/18/2018. FINDINGS: The ventricles and sulci are within normal limits. No sulcal effacement or midline shift is detected. No acute intra-axial or extra-axial hemorrhage is detected. Cisterns are patent. Visualized paranasal sinuses are clear. IMPRESSION: No acute intracranial process is detected. Dictated by: Dictated on workstation # [id number]
--- NOTE | 2018-12-29 04:40 | OPERATIVE REPORT ---
DATE OF SERVICE: 12/28/2018 PREOPERATIVE DIAGNOSES: Right upper quadrant abdominal pain, hyperfunctioning gallbladder. POSTOPERATIVE DIAGNOSES: Right upper quadrant abdominal pain, hyperfunctioning gallbladder. PROCEDURE: Laparoscopic cholecystectomy with intraoperative cholangiogram. SURGEON: Anderson vEans DO GEOTHERMAL HEAT PUMP MACHINIST: John Bishop DO, assisted in retraction, dissection and closure. ANESTHESIA: General. ESTIMATED BLOOD LOSS: None. COMPLICATIONS: None. INDICATIONS: The patient is a 58-year-old male, who has been having right upper quadrant abdominal pain. The patient's workup demonstrating gallbladder be hyperfunctioning. He understands risks and benefits of procedure and wished to proceed with procedure. Consent was signed in the chart. DESCRIPTION OF PROCEDURE: The patient was taken to the operating suite. He was prepped and draped in sterile fashion. Surgical pause was performed. Local anesthetic was infiltrated just above the umbilicus. An 11 blade scalpel was used to make a skin incision and cautery used to dissect down to the fascia, which was then scored, grasped and elevated. The abdomen was then entered. A 0 Vicryl was placed in a cfacix-fw-awdew fashion for closure at the end of the case. A balloon trocar was inserted in the abdomen and pneumoperitoneum was achieved. Under direct visualization of the laparoscope, a 5 mm trocar was placed in the subxiphoid region and two 5 mm trocars were placed in the right upper quadrant. Gallbladder was grasped, elevated. Some adhesions had to be taken down bluntly and the cystic duct and cystic artery were then dissected out. Clips were placed on the proximal and distal portion of the cystic artery and a clip was placed on the distal portion of the cystic duct. The duct was then partially transected. Arrow catheter was inserted and cholangiogram was performed. There were no filling defects and contrast made its way into the duodenum without difficulty. Catheter was removed. Clips were placed on the proximal portion of the cystic duct and then the duct and artery were then completely transected. Hook cautery was used to dissect the gallbladder from the gallbladder fossa achieving hemostasis. Once removed, the gallbladder was placed in an Endobag and removed through the 12 mm trocar site. Copious amounts of irrigation was used to irrigate and suction. Hemostasis was achieved. The abdomen was then decompressed and the trocars were removed. The 0 Vicryl placed at the beginning of case was then tied. The subcutaneous tissues were then reapproximated using 3-0 Monocryl in a subcuticular fashion. The abdomen was washed and dried and Skin Affix was placed over the incisions. The patient tolerated procedure well without any complications, taken to recovery room in stable condition. Job ID: [id number] DocumentID: [id number] Dictated Date: 12/28/2018 22:36:30 Hospital Receptionist Date: 12/29/2018 04:39:30 Dictated By: DO YI CHAN
[2018-12-29] MEDS ORDERED: PANT40TA2 PO (11:33)
[2018-12-29] MEDS ORDERED: CLON0.1T PO (11:49)
== END 2018-12-28 14:00 | disposition home or self-care (01) ==
LOC: SDC 07:59
PROVIDERS: ATTEND Surgery
DX: K81.1 Chronic cholecystitis (principal); K82.8 Other specified diseases of gallbladder; K44.9 Diaphragmatic hernia without obstruction or gangrene; K21.0 Gastro-esophageal reflux disease with esophagitis; Z86.010 Personal history of colon polyps; Z79.899 Other long term (current) drug therapy; Z79.82 Long term (current) use of aspirin; I25.10 Atherosclerotic heart disease of native coronary artery without angina pectoris; I08.3 Combined rheumatic disorders of mitral, aortic and tricuspid valves; I27.20 Pulmonary hypertension, unspecified; I10 Essential (primary) hypertension; G47.10 Hypersomnia, unspecified; Z87.891 Personal history of nicotine dependence; M67.431 Ganglion, right wrist; E78.5 Hyperlipidemia, unspecified; Z95.5 Presence of coronary angioplasty implant and graft; G47.33 Obstructive sleep apnea (adult) (pediatric); G43.909 Migraine, unspecified, not intractable, without status migrainosus; Z86.73 Personal history of transient ischemic attack (TIA), and cerebral infarction without residual deficits; F32.9 Major depressive disorder, single episode, unspecified; F41.9 Anxiety disorder, unspecified; M06.9 Rheumatoid arthritis, unspecified; M54.9 Dorsalgia, unspecified; K27.9 Peptic ulcer, site unspecified, unspecified as acute or chronic, without hemorrhage or perforation; Z85.46 Personal history of malignant neoplasm of prostate; Z88.0 Allergy status to penicillin
CPT/HCPCS: 70450; 80306; 87081; 93005

== ENCOUNTER 2018-12-28 13:52 | Observation (INO) | payer OTHER ==
[2018-12-28] VITALS (8 sets, daily range): BP systolic 109–146; BP diastolic 67–100
[~2018-12-28] VITALS: Ht 175.3 cm; Wt 86.3 kg
[2018-12-28] MEDS ORDERED: MAGNESIUM 1 GM/100 ML IVPB 100 ML IV ONE ×2 (13:56→14:00)
[2018-12-28] MEDS ORDERED: LABETALOL HCL 20 MG/4 ML VIAL ONE (13:56)
[2018-12-28] MEDS ORDERED: HYDROmorphone 2 MG/ML VIAL (DILAUDID) ONE (13:56)
--- OUTSIDE RECORDS SUMMARY | 2018-12-28 13:56 | XMS REPORT | Encounter Summary ---
Author Author [facility] Address Unknown Phone Unavailable Care Team Providers Care Vessel Operator Name Role Phone Leroy Lao MD [address] Silver Hernandes DO PCP Reason for Visit * Reason Comments Medication Refill Encounter Details Care Team Description Date Type Department Sarah Camara PA-C [address] [facility] [place], [place] [id number] Medication Refill 12/19/2018 Refill [facility] [address] [facility] [place] [address] Social History Date Tobacco Use Types Packs/Day [...] Visit Diagnoses Diagnosis Coronary artery disease of [place] artery of [place] heart with stable angina pectoris (HCC) Essential hypertension Unspecified essential hypertension Mixed hyperlipidemia Gastroesophageal reflux disease, esophagitis presence not specified Ischemic chest pain Chest pain, unspecified Tobacco abuse Tobacco use disorder History of noncompliance with medical treatment Personal history of noncompliance with medical treatment, presenting hazards to health documented in this encounter
--- OUTSIDE RECORDS SUMMARY | 2018-12-28 13:56 | XMS REPORT | Clinical Summary ---
Author Author [facility] Organization [facility] Address Unknown Phone Unavailable Care Team Providers Care Surety Bond Agent Name Role Phone Leroy Lao MD 21 Silver Hernandes DO PCP Source Comments Some departments are not documenting in the electronic medical record. 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 Overview: 07/29/16: heart cath ([place]ia [place], [place]) - total occlusion of the right [...] Comments Vital Sign 150/72 05/16/2017 3:11 PM POLICE SHIFT COMMANDER Blood Pressure 73 05/16/2017 3:11 PM POLICE SHIFT COMMANDER Pulse 36.8 C (98.2 F) 03/06/2017 1:42 PM CDT Temperature - - Respiratory Rate 96% 03/06/2017 1:42 PM CDT Oxygen Saturation - - Inhaled Oxygen Concentration 82.6 kg (182 lb) 05/16/2017 3:11 PM POLICE SHIFT COMMANDER Weight 175.3 cm (5' 9") 05/16/2017 3:11 PM POLICE SHIFT COMMANDER Height 26.88 05/16/2017 3:11 PM POLICE SHIFT COMMANDER Body Mass Index Plan of Treatment Health Maintenance Due Date Last Done Comments HEPATITIS C SCREENING 1961 PHYSICAL (COMPREHENSIVE) 1968 EXAM HIV SCREENING 1976 DTAP/TDAP VACCINES (1 - 1979 Tdap) COLORECTAL CANCER 2011 SCREENING SHINGLES RECOMBINANT 2011 VACCINE (1 of 2) INFLUENZA VACCINE 03/20/2019 Results Not on filefrom Last 3 Months Advance Directives 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
--- OUTSIDE RECORDS SUMMARY | 2018-12-28 13:57 | XMS REPORT | Encounter Summary ---
Author Author [facility] Organization [facility] Address Unknown Phone Unavailable Care Team Providers Care Railroad Police Officer Name Role Phone Leroy Lao MD 21 Silver Hernandes DO PCP Reason for Visit * Reason Comments Medication Refill Encounter Details Care Team Description Date Type Department David Simms MD [address] [id number] Medication Refill 07/31/2018 Refill [facility] [address] [address] Social History Date Tobacco Use Types Packs/Day [...]
[2018-12-28] MEDS ORDERED: LABETALOL HCL 20 MG/4 ML VIAL IV ONE (14:00)
[2018-12-28] MEDS ORDERED: HYDROmorphone 2 MG/ML VIAL (DILAUDID) IV ONE (14:00)
[2018-12-28 14:11] LABS: BASOPHILS % (AUTO) 0 % (0-10); EOSINOPHILS # (AUTO) 0.1 10^3/uL (0.0-0.3); EOSINOPHILS % (AUTO) 1 % (0-10); HEMATOCRIT 38 % (40-54); HEMOGLOBIN 11.8 G/DL (13.3-17.7); LYMPHOCYTES # (AUTO) 0.9 X 10^3 (1.0-4.0); LYMPHOCYTES % (AUTO) 8 % (12-44); MEAN CORPUSCULAR HEMOGLOBIN 26 PG (25-34); MEAN CORPUSCULAR HGB CONC 31 G/DL (32-36); MEAN CORPUSCULAR VOLUME 82 FL (80-99); MEAN PLATELET VOLUME 9.5 FL (7.4-10.4); MONOCYTES # (AUTO) 0.2 X 10^3 (0.0-1.0); MONOCYTES % (AUTO) 1 % (0-12); NEUTROPHILS # (AUTO) 10.4 X 10^3 (1.8-7.8); NEUTROPHILS % (AUTO) 90 % (42-75); PLATELET COUNT 281 10^3/uL (130-400); RED CELL DISTRIBUTION WIDTH 15.6 % (10.0-14.5); WHITE BLOOD COUNT 11.6 10^3/uL (4.3-11.0)
[2018-12-28 14:32] LABS: FIBRIN DEGRADATION PRODUCTS 0.64 UG/ML (0.00-0.49); INR 0.9 (0.8-1.4); PROTHROMBIN TIME PATIENT 12.9 SEC (12.2-14.7)
[2018-12-28 14:33] LABS: ALANINE AMINOTRANSFERASE 38 U/L (0-55); ALBUMIN 4.3 GM/DL (3.2-4.5); ALKALINE PHOSPHATASE 152 U/L (40-136); BILIRUBIN,TOTAL 0.2 MG/DL (0.1-1.0); BUN/CREATININE RATIO 10; CALCIUM 9.3 MG/DL (8.5-10.1); CARBON DIOXIDE 27 MMOL/L (21-32); CHLORIDE 101 MMOL/L (98-107); CREATININE SERUM 1.54 MG/DL (0.60-1.30); GFR ESTIMATED 47; GLUCOSE 128 MG/DL (70-105); POTASSIUM 4.5 MMOL/L (3.6-5.0); SODIUM 136 MMOL/L (135-145); TOTAL PROTEIN 7.9 GM/DL (6.4-8.2)
[2018-12-28 14:40] LABS: ANISOCYTOSIS SLIGHT; BAND NEUTROPHILS 0 %; BASOPHILS % (MANUAL) 0 %; EOSINOPHILS % (MANUAL) 0 %; LYMPHOCYTES % (MANUAL) 11 %; MONOCYTES % (MANUAL) 2 %; NEUTROPHILS % (MANUAL) 87 %
--- NOTE | 2018-12-28 14:41 | ED Neurological Problem ---
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 STROKE ACTIVATION AT [address] PERFORMED PRIOR TO ARRIVAL TO ED. UPON ARRIVAL, INITIAL BP 237/128 WITH RT SIDE FACIAL DROOPING AND DYSPHASIA NOTED. PROVIDER IN ROOM DURING TRIAGE. 20G IV TO LEFT HAND ESTABLISHED PRIOR TO ARRIVAL WITH LACTATED RINGER BOLUS INFUSING. Nursing Sepsis Screen: No Definite Risk Source: patient Exam Limitations: no limitations History of Present Illness Date Seen by Provider: Dec 28, 2018 Time Seen by Provider: 13:58 Initial Comments Here emergently from same day surgery area with concerns of stroke symptoms. Patient noted to be quite hypertensive with blood pressures exceeding 230/120. Does have right facial drooping and difficulty with talking. Patient does have a long history of similar findings when he has hypertensive episodes as well as migraine headaches. Patient did have his gallbladder removed today and that procedure was successfully completed a little while ago. Starting at about 1345, patient noted to have the facial droop. He was noted to be hypertensive at that time. He did not get his amlodipine or clonidine today. Anesthesia did give 20 mg of hydralazine during the surgery for hypertension. Patient does report 10 out of 10 pain which seems to be related to headache as well as abdominal pain. Patient did receive CT scan in route from same day surgery to the emergency department for evaluation. Timing/Duration: 1/2 hour Severity: moderate Associated Symptoms: confusion, slurred speech, weakness Allergies and Home Medications Allergies Coded Allergies: penicillin G (Verified Allergy, Severe, SWELLING, 12/22/18) Home Medications Amlodipine Besylate 10 Mg Tablet, 10 MG PO DAILY, (Reported) LAST FILLED #90 06-16-18 Aspirin 81 Mg Tablet.dr, 81 MG PO HS, (Reported) Atorvastatin Calcium 10 Mg Tablet, 10 MG PO HS, (Reported) LAST FILLED #30 08-24-18 Bupropion HCl 150 Mg Tablet.er, 150 MG PO BID, (Reported) Buspirone HCl 15 Mg Tablet, 15 MG PO TID, (Reported) Carvedilol 6.25 Mg Tablet, 6.25 MG PO BID, (Reported) LAST FILLED #180 06-17-18 Clonidine HCl 0.1 Mg Tablet, 0.1 MG PO TID, (Reported) Clopidogrel Bisulfate 75 Mg Tablet, 75 MG PO HS, (Reported) Docusate Sodium 100 Mg Capsule, 100 MG PO BID Prescribed by: MERLIN BISWAS on 12/28/18 1051 Hydralazine HCl 10 Mg Tablet, 10 MG PO TID Prescribed by: MORGAN LARES on 12/24/18 170 Hydrocodone Bit/Acetaminophen 1 Tab Tab, 1-2 TAB PO Q6H PRN for PAIN-MODERATE Prescribed by: MERLIN BISWAS on 12/28/18 1051 Losartan Potassium 100 Mg Tablet, 100 MG PO HS, (Reported) Nitrofurantoin Monohyd/M-Cryst 100 Mg Capsule, 100 MG PO BID Prescribed by: MORGAN LARES on 12/24/18 170 Nitroglycerin 0.4 Mg Tab.subl, 0.4 MG SL UD PRN for CHEST PAIN, (Reported) PLACE 1 TAB UNDER TONGUE NEEDED FOR CHEST PAIN; IF PAIN REMAINS AFTER 5 MINUTES, CALL 911 [place]-3 Fatty Acids/Fish Oil 1 Each Capsule, 1,000 MG PO BID, (Reported) Pantoprazole Sodium 40 Mg Tablet.dr, 40 MG PO DAILY Prescribed by: MERLIN BISWAS on 12/05/18 165 Sertraline HCl 100 Mg Tablet, 100 MG PO DAILY, (Reported) LAST FILLED #30 08-24-18 TAKES ALONG WITH 25MG TABLET Sertraline HCl 25 Mg Tablet, 25 MG PO DAILY, (Reported) TAKES ALONG WITH 100MG TABLET Patient Home Medication List Home Medication List Reviewed: Yes Review of Systems Review of Systems Constitutional: see HPI; No chills, No fever Psychiatric/Neurological: Cognitive Dysfunction, Weakness Unable to complete review of systems due to underlying medical condition. Past N[place]zok-Qpcrrk-Oxiwnx Hx Past Med/Social Hx: Reviewed Nursing Past Med/Soc Hx Patient Social History Alcohol Use: Denies Use Alcohol Beverage of Choice: Beer Drug of Choice: + IV METH USE, ALSO THC, WELL RX DRUGS Type Used: Cigarettes Former Smoker, Quit: Aug 24, 2016 2nd Hand Smoke Exposure: Yes Recent Foreign Travel: No Contact w/Someone Who Travel: No Recent Infectious Disease Expo: No Recent Hopitalizations: No Immunizations Up To Date Tetanus Booster (TDap): Less than 5yrs PED Vaccines UTD: No Date of Influenza Vaccine: Jul 28, 2017 Seasonal Allergies Seasonal Allergies: No Past Medical History Surgeries: Yes Bladder Surgery, Cardiac, Coronary Stent, Orthopedic, Prostatectomy Respiratory: Yes Sleep Apnea Currently Using CPAP: No Currently Using BIPAP: No Cardiac: Yes Coronary Artery Disease, Deep Vein Thrombosis, Heart Attack, High Cholesterol, Hypertension Neurological: Yes Headaches /Migraines, TIA Reproductive Disorders: No Sexually Transmitted Disease: No HIV/AIDS: No Genitourinary: Yes Kidney Infection, Prostate Problems, Bladder Infection, Kidney Stones, UTI- Chronic Gastrointestinal: Yes Gastroesophageal Reflux, Chronic Diarrhea, Hiatal Hernia, Ulcer, Gall Bladder Disease Musculoskeletal: Yes Arthritis, Rheumatoid Arthritis, Back Injury, Chronic Back Pain, Fractures Endocrine: No (BUT HAS HAD HYPERGLYCEMIA AT TIMES) HEENT: Yes Eye Injury Loss of Vision: Denies Hearing Impairment: Denies Cancer: Yes Prostate Did You Recieve Any Treatments: Yes What Type of Treatment Did You: Radiation Psychosocial: Yes (History of illicit and prescription drug abuse) Sleep Difficulties, Anxiety, Depression Integumentary: No Blood Disorders: No Adverse Reaction/Blood Tranf: No (N/A) Family Medical History Reviewed Nursing Family Hx Arthritis 19 MOTHER HIGH SCHO[employer] LIBRARIAN G8 SISTER FH: COPD (chronic obstructive pulmonary disease) Hypercholesterolemia 19 MOTHER Hypertension 19 MOTHER Heart Disease, Hypertension Physical Exam Vital Signs Vital Signs - First Documented 12/28/18 13:58 Temp 98.2 Pulse 120 Resp 10 B/P (MAP) 237/128 (164) Pulse Ox 100 O2 Delivery Nasal Cannula O2 Flow Rate 4.00 Capillary Refill : Less Than 3 Seconds Height, Weight, BMI Height: 5'9.00" Weight: 185lbs. 0.0oz. 83.839383ep; 27.3 BMI Method:Stated General Appearance: WD/WN, no apparent distress HEENT: PERRL/EOMI, pharynx normal Neck: full range of motion, supple Respiratory: lungs clear, normal breath sounds Cardiovascular: regular rate, rhythm, no murmur Gastrointestinal: soft, tenderness (abdomen over surgical areas although abdomen soft and pain expected level.) Back: normal inspection, no CVA tenderness, no vertebral tenderness Extremities: non-tender, normal inspection Neurologic/Psychiatric: alert Crainal Nerves: abnormal speech, facial asymmetry, facial droop (right side) Motor/Sensory: weak motor strength RUE, weak motor strength RLE, other (unable to determine pronator drift) Skin: normal color, warm/dry Stroke NIH Stroke Scale Assessment Level of Consciousness: 0=Alert (0), Level of Consciousness-Questions: 2=Answer neither question (2), LOC Commands: 1=Performs one task (1), Gaze: Normal (0), Visual [place]: 0=No visual loss (0), Facial Movement (Facial Paresis): 2=Partial paralysis (2), Motor Function-Arms Right: 2=Some effort/gravity (2), Motor Function-Arms Left: 0=No drift (0), Motor Function- Legs Right: 3=No effort/gravity (3), Motor Function-Legs Left: 0=No drift (0), Limb Ataxia: 1=Present in one limb (1), Sensory: 1=Mild to Moderate loss (1), Best Language: 2=Severe aphasia (2), Dysarthria: 2=Severe dysarthria (2), Extinction & Inattention: 2=ProfoundHemiInattention (2), Total: Stroke Thrombolytic Exclusion Age 18 or Over: Yes Acute intenal hemorrhage: No History of CVA: No Uncontrolled Coagulation Defec: No Intracranial Hemorrhage: No Severe Hypertension: No GI or Bleed: No Subarachnoid Hemorrhage: No Intracranial Neoplasm/Aneurysm: No Oral Anticoagulants: No Surgery or Trauma: No Puncture of Non-Compressible V: No Recent CPR: No Diabetic Hemorrhagic Retinopat: No Organ Biopsy: No Recent Obstetric Delivery: No Glucose: No Significant Hepatic Dysfunctio: No NIH Stoke Scale >22: No Bacterial Endocarditis: No Pericarditis: No Improving Symptoms: No Platelets: No Progress/Results/Core Measures Results/Orders Lab Results Laboratory Tests Test 12/28/18 14:05 12/28/18 14:37 Range/Units White Blood Count 11.6 H 4.3-11.0 10^3/uL Red Blood Count 4.61 4.35-5.85 10^6/uL Hemoglobin 11.8 L 13.3-17.7 G/DL Hematocrit 38 L 40-54 % Mean Corpuscular Volume 82 80-99 FL Mean Corpuscular Hemoglobin 26 25-34 PG Mean Corpuscular Hemoglobin Concent 31 L 32-36 G/DL Red Cell Distribution Width 15.6 H 10.0-14.5 % Platelet Count 281 130-400 10^3/uL Mean Platelet Volume 9.5 7.4-10.4 FL Neutrophils (%) (Auto) 90 H 42-75 % Lymphocytes (%) (Auto) 8 L 12-44 % Monocytes (%) (Auto) 1 0-12 % Eosinophils (%) (Auto) 1 0-10 % Basophils (%) (Auto) 0 0-10 % Neutrophils # (Auto) 10.4 H 1.8-7.8 X 10^3 Lymphocytes # (Auto) 0.9 L 1.0-4.0 X 10^3 Monocytes # (Auto) 0.2 0.0-1.0 X 10^3 Eosinophils # (Auto) 0.1 0.0-0.3 10^3/uL Basophils # (Auto) 0.0 0.0-0.1 10^3/uL Neutrophils % (Manual) 87 % Lymphocytes % (Manual) 11 % Monocytes % (Manual) 2 % Eosinophils % (Manual) 0 % Basophils % (Manual) 0 % Band Neutrophils 0 % Anisocytosis SLIGHT Prothrombin Time 12.9 12.2-14.7 SEC INR Comment 0.9 0.8-1.4 Activated Partial Thromboplast Time 26 24-35 SEC D-Dimer 0.64 H 0.00-0.49 UG/ML Sodium Level 136 135-145 MMOL/L Potassium Level 4.5 3.6-5.0 MMOL/L Chloride Level 101 98-107 MMOL/L Carbon Dioxide Level 27 21-32 MMOL/L Anion Gap 8 5-14 MMOL/L Blood Urea Nitrogen 15 7-18 MG/DL Creatinine 1.54 H 0.60-1.30 MG/DL Estimat Glomerular Filtration Rate 47 BUN/Creatinine Ratio 10 Glucose Level 128 H 70-105 MG/DL Calcium Level 9.3 8.5-10.1 MG/DL Corrected Calcium 9.1 8.5-10.1 MG/DL Total Bilirubin 0.2 0.1-1.0 MG/DL Aspartate Amino Transf (AST/SGOT) 41 H 5-34 U/L Alanine Aminotransferase (ALT/SGPT) 38 0-55 U/L Alkaline Phosphatase 152 H 40-136 U/L Troponin I < 0.028 <0.028 NG/ML Total Protein 7.9 6.4-8.2 GM/DL Albumin 4.3 3.2-4.5 GM/DL Glucometer 138 H 70-110 MG/DL My Orders Orders - BRITNEY CEE MD Labetalol Injection (Normodyne Injection (12/28/18 14:00) Magnesium 1 Gm/100 Ml Ivpb (Magnesium Tejeda (12/28/18 14:00) Hydromorphone Injection (Dilaudid Inject (12/28/18 14:00) Cbc With Automated Diff (12/28/18 14:00) Protime With Inr (12/28/18 14:00) Partial Thromboplastin Time (12/28/18 14:00) Comprehensive Metabolic Panel (12/28/18 14:00) Fibrin Degradation Products (12/28/18 14:00) Troponin I (12/28/18 14:00) Ua Culture If Indicated (12/28/18 14:00) Chest 1 View, Ap/Pa Only (12/28/18 14:00) Ekg Tracing (12/28/18 14:00) Nothing By Mouth (12/28/18 Dinner) Accucheck Stat ONCE (12/28/18 14:00) Ed Iv/Invasive Line Start (12/28/18 14:00) Vital Signs Stroke Patient Q15M (12/28/18 14:00) O2 (12/28/18 14:00) Intake & Output 06,14,22 (12/28/18 14:00) Monitor-Rhythm Ecg Trace Only (12/28/18 14:00) Dysphagia Screening Tool (12/28/18 14:00) Lipid Panel (12/29/18 06:00) Hydromorphone Injection (Dilaudid Inject (12/28/18 13:56) Labetalol Injection (Normodyne Injection (12/28/18 13:56) Magnesium 1 Gm/100 Ml Ivpb (Magnesium Tejeda (12/28/18 13:56) Manual Differential (12/28/18 14:05) Hydralazine Injection (Apresoline Inject (12/28/18 14:45) Fentanyl Injection (Sublimaze Injection (12/28/18 15:40) Ns (Ivpb) (Sodium C... W/Nicardipine Iv (12/28/18 15:45) Medications Given in ED Current Medications Medications Dose Ordered Sig/Mckenzie Route Start Time Stop Time Status Last Admin Dose Admin Hydralazine HCl 20 mg ONCE ONCE IV 12/28/18 14:45 12/28/18 14:46 DC 12/28/18 14:50 20 MG Hydromorphone HCl 1 mg ONCE ONCE IV 12/28/18 14:00 12/28/18 14:03 DC 12/28/18 14:05 1 MG Labetalol HCl 40 mg ONCE ONCE IV 12/28/18 14:00 12/28/18 14:03 DC 12/28/18 14:05 40 MG Magnesium Sulfate/ Dextrose 100 ml @ 100 mls/hr ONCE ONCE IV 12/28/18 14:00 12/28/18 14:59 DC 12/28/18 14:05 100 MLS/HR Vital Signs/I&O 12/28/18 12/28/18 13:58 13:58 Temp 98.2 Pulse 120 Resp 10 B/P (MAP) 237/128 (164) Pulse Ox 100 100 O2 Delivery Nasal Cannula Nasal Cannula O2 Flow Rate 4.00 4.00 Blood Pressure Mean: 164 Progress Progress Note : Progress Note Seen and evaluated. IV established in preop area. CT done in route here. Labs, EKG and chest x-ray, stroke scale in order set ordered. Patient is complex due to his history of migraines and stroke mimic. Patient is excluded from TPA due to having surgery today. He has also exceeding on his blood pressure level. Labetalol 40 mg IV ordered. Dilaudid 1 mg IV and magnesium 1 g IV ordered. He has already had Toradol in the preop area. Monitor patient. 1500: Patient did receive hydralazine 20 mg IV. Apparently his headache is better but he is still having some symptoms of difficulty with speech and slurred speech. Monitor patient. 1512: Blood pressure now 128/73. He is able to verbalizes name now. Does still appear to be a little weak on the right side. Monitor patient. 1530: I have discussed the case with Dr. Rabago who accepts patient for admission, observation status. He has requested consult with cardiology and I have co nsulted Dr. Hurtado as well. Patient will go to the ICU. After discussions with Dr. Hurtado, we will initiate nicardipine drip 5 as patient's blood pressure is trending up again. We will titrate that to keep systolic blood pressure less than 160. Fentanyl 75 g IV given for abdominal pain. We will use Dilaudid 1 mg IV every 3 hours when necessary for pain until patient can be converted to oral medications. In discussion with patient and family and they agree with admission. Dr. Culver was also consulted. Initial ECG Impression Date: Dec 28, 2018 Initial ECG Impression Time: 14:36 Initial ECG Rate: 63 Initial ECG Rhythm: Normal Sinus Comment Sinus rhythm with normal axis. No evidence of ST elevation [place]. No change from previous done earlier today. Interpreted by me. Diagnostic Imaging Diagonstic Imaging: CT Plain Films/CT/US/NM/MRI: head Comments [email or web address] [place] [place] NAME: EZEQUIEL VITALE [facility] REC#: [id number] PT STATUS: REG SDC : 1960 PHYSICIAN: MERLIN BISWAS DO ADMIT DATE: 12/28/18/[facility] [place] Draft Date of Exam:12/28/18 CT HEAD WO-R/O STROKE PROCEDURE: CT head wo r/o stroke. TECHNIQUE: Multiple contiguous axial images were obtained through the brain without the use of intravenous contrast. Auto Exposure Controls were utilized during the CT exam to meet ALARA standards for radiation dose reduction. INDICATION: Slurred speech and right-sided facial drooping. Patient undergoing cholecystectomy earlier today. COMPARISON: Correlation is made with head CT from 09/18/2018. FINDINGS: The ventricles and sulci are within normal limits. No sulcal effacement or midline shift is detected. No acute intra-axial or extra-axial hemorrhage is detected. Cisterns are patent. Visualized paranasal sinuses are clear. IMPRESSION: No acute intracranial process is detected. Dictated on workstation # [id number] Dict: 12/28/18 1357 Trans: 12/28/18 1400 [id number] Interpreted by: ROB BUTCHER MD Electronically signed by: Diagonstic Imaging: Xray Plain Films/CT/US/NM/MRI: chest Comments [email or web address] [place] NAME: EZEQUIEL VITALE [facility] REC#: [id number] PT STATUS: REG ER : 1960 PHYSICIAN: BRITNEY CEE MD ADMIT DATE: 12/28/18/ER Draft Date of Exam:12/28/18 CHEST 1 VIEW, AP/PA ONLY INDICATION: Stroke. TECHNIQUE: A frontal chest was obtained at 2:46 PM. COMPARISON: 12/21/2018. FINDINGS: The heart and mediastinal silhouette are normal in appearance. The lungs are clear. There is no pneumothorax or pleural fluid. IMPRESSION: Negative chest. Dictated on workstation # [id number] Dict: 12/28/18 1457 Trans: 12/28/18 1503 [id number] Interpreted by: YOAN GARCIA MD Electronically signed by: Departure Communication (Admissions) Time/Spoke to Admitting Phy: 15:21 Time/Spoke to Consulting Phy: 15:30 Impression Primary Impression: Hypertensive emergency Additional Impressions: Stroke-like symptom Status post cholecystectomy Disposition: ADMITTED INPATIENT Condition: Stable Admissions Decision to Admit Reason: Admit from ER (General) Decision to Admit/Date: Dec 28, 2018 Time/Decision to Admit Time: 15:21 Departure-Patient Inst. Referrals: ANDRES RABAGO DO (PCP/Family) Primary Care Physician BRITNEY CEE MD Dec 28, 2018 14:41
[2018-12-28] MEDS ORDERED: hydrALAZINE (APESOLINE) 20 MG/ML VIAL IV ONE (14:45)
--- NOTE | 2018-12-28 15:03 | Diagnostic Imaging Report ---
INDICATION: Stroke. TECHNIQUE: A frontal chest was obtained at 2:46 PM. COMPARISON: 12/21/2018. FINDINGS: The heart and mediastinal silhouette are normal in appearance. The lungs are clear. There is no pneumothorax or pleural fluid. IMPRESSION: Negative chest. Dictated by: Dictated on workstation # [id number]
--- NOTE | 2018-12-28 15:10 | NUR ---
PT ABLE TO VERBALIZE NAME AT THIS TIME. STILL HAS RIGHT SIDED WEAKNESS BUT SHOOK HIS HEAD YES WHEN ASKED IF HE WAS FEELING ANY BETTER. BP IS NOW 137/75
[2018-12-28] MEDS ORDERED: fentaNYL INJECTION 100 MCG/2 ML AMP IVP STA (15:40)
[2018-12-28] MEDS ORDERED: niCARdipine IV 50 MG in NS (IVPB) 230 ML IV SCH (15:45)
[2018-12-28] MEDS ORDERED: ONDANSETRON 4 MG/2 ML (SDV) Z0FRAN ONE (15:51)
[2018-12-28] MEDS ORDERED: ONDANSETRON 4 MG/2 ML (SDV) Z0FRAN IVP ONE (16:00)
[2018-12-28] MEDS ORDERED: NS IV 1000 ML 1,000 ML IV SCH (17:00)
[2018-12-28] MEDS ORDERED: CATHETER FLUSH 10 ML SYR IV PRN (17:15)
[2018-12-28] MEDS: niCARdipine 50 MG/NS 250 ML IV DRIP IV SCH ×2 (17:35)
[2018-12-28] MEDS: HYDROmorphone 2 MG/ML VIAL (DILAUDID) IV PRN ×3 (17:40→23:03)
[2018-12-28] MEDS: ONDANSETRON 4 MG/2 ML (SDV) Z0FRAN IV PRN ×3 (17:45→23:03)
--- NOTE | 2018-12-28 20:03 | History & Physicial ---
History of Present Illness History of Present Illness Reason for visit/HPI Patient had cholecystectomy. Patient's blood pressure went high greater than 230/120. Right face drooping and difficulty with talking. Had weakness on the right side extremities Patient has history of migraine with strokelike symptoms and malignant hypertension. Right side of face is drooping tonight. Patient has weakness of his right upper extremity and lower right extremity. Patient talking and no slurred speech when does talk Date of Admission Dec 28, 2018 at 15:48 Time Seen by a Provider: 19:57 I consulted on this patient on 12/28/18 19:57 Attending Physician Silver Rabago DO Admitting Physician Silver Rabago DO Consult Allergies and Home Medications Allergies Coded Allergies: penicillin G (Verified Allergy, Severe, SWELLING, 12/22/18) Home Medications Amlodipine Besylate 10 Mg Tablet, 10 MG PO DAILY, (Reported) LAST FILLED #90 06-16-18 Aspirin 81 Mg Tablet.dr, 81 MG PO HS, (Reported) Atorvastatin Calcium 10 Mg Tablet, 10 MG PO HS, (Reported) LAST FILLED #30 08-24-18 Bupropion HCl 150 Mg Tablet.er, 150 MG PO BID, (Reported) Buspirone HCl 15 Mg Tablet, 15 MG PO TID, (Reported) Carvedilol 6.25 Mg Tablet, 6.25 MG PO BID, (Reported) LAST FILLED #180 06-17-18 Clonidine HCl 0.1 Mg Tablet, 0.1 MG PO TID, (Reported) Clopidogrel Bisulfate 75 Mg Tablet, 75 MG PO HS, (Reported) Docusate Sodium 100 Mg Capsule, 100 MG PO BID Prescribed by: MERLIN BISWAS on 12/28/18 1051 Hydralazine HCl 10 Mg Tablet, 10 MG PO TID Prescribed by: MORGAN LARES on 12/24/18 1707 Hydrocodone Bit/Acetaminophen 1 Tab Tab, 1-2 TAB PO Q6H PRN for PAIN-MODERATE Prescribed by: MERLIN BISWAS on 12/28/18 1051 Losartan Potassium 100 Mg Tablet, 100 MG PO HS, (Reported) Nitrofurantoin Monohyd/M-Cryst 100 Mg Capsule, 100 MG PO BID Prescribed by: MORGAN LARES on 12/24/18 170 Nitroglycerin 0.4 Mg Tab.subl, 0.4 MG SL UD PRN for CHEST PAIN, (Reported) PLACE 1 TAB UNDER TONGUE NEEDED FOR CHEST PAIN; IF PAIN REMAINS AFTER 5 MINUTES, CALL 911 [place]-3 Fatty Acids/Fish Oil 1 Each Capsule, 1,000 MG PO BID, (Reported) Pantoprazole Sodium 40 Mg Tablet.dr, 40 MG PO DAILY Prescribed by: MERLIN BISWAS on 12/05/18 1652 Sertraline HCl 100 Mg Tablet, 100 MG PO DAILY, (Reported) LAST FILLED #30 08-24-18 TAKES ALONG WITH 25MG TABLET Sertraline HCl 25 Mg Tablet, 25 MG PO DAILY, (Reported) TAKES ALONG WITH 100MG TABLET Patient Home Medication List Home Medication List Reviewed: No Past Qzcueqh-Mwbenq-Wjauge Hx Patient Social History Marrital Status: cohabiting Alcohol Use: Denies Use Number of Drinks Today: AA Alcohol Beverage of Choice: Beer Recreational Drug Use: No Drug of Choice: + IV METH USE, ALSO THC, WELL RX DRUGS Former Smoker, Quit: Aug 24, 2016 Type Used: Cigarettes 2nd Hand Smoke Exposure: Yes Recent Foreign Travel: No Contact w/other who traveled: No Recent Hopitalizations: No Recent Infectious Disease Expo: No Immunizations Up To Date Tetanus Booster (TDap): Less than 5yrs Pediatric: No Date of Influenza Vaccine: Jul 28, 2017 Seasonal Allergies Seasonal Allergies: No Surgeries Yes Bladder Surgery, Cardiac, Coronary Stent, Gallbladder, Orthopedic, Prostatectomy Respiratory Yes Currently Using CPAP: No Currently Using BIPAP: No Cardiovascular Yes Coronary Artery Disease, Deep Vein Thrombosis, Heart Attack, High Cholesterol, Hypertension Neurological Yes Headaches /Migraines, TIA Reproductive System Hx Reproductive Disorders: No Sexually Transmitted Disease: No HIV/AIDS: No Genitourinary Yes Kidney Infection, Prostate Problems, Bladder Infection, Kidney Stones, UTI- Chronic Gastrointestinal Yes Gastroesophageal Reflux, Chronic Diarrhea, Hiatal Hernia, Ulcer, Gall Bladder Disease Musculoskeletal Yes Arthritis, Rheumatoid Arthritis, Back Injury, Chronic Back Pain, Fractures Endocrine History of Endocrine Disorders: No (BUT HAS HAD HYPERGLYCEMIA AT TIMES) HEENT History of HEENT Disorders: Yes HEENT Disorders: Eye Injury Loss of Vision: Denies Hearing Impairment: Denies Cancer Yes Prostate Did You Recieve Any Treatments: Yes Type of Treatment: Radiation Psychosocial History of Psychiatric Problem: Yes (History of illicit and prescription drug abuse) Behavioral Health Disorders: Sleep Difficulties, Anxiety, Depression Integumentary History of Skin or Integumenta: No Blood Transfusions History of Blood Disorders: No Adverse Reaction to a Blood Tr: No (N/A) Family Medical History Significant Family History: Heart Disease, Hypertension Family Hx: Arthritis 19 MOTHER INSTALLER [employer]IOR [employer]SEM[employer] G8 SISTER FH: COPD (chronic obstructive pulmonary disease) Hypercholesterolemia 19 MOTHER Hypertension 19 MOTHER Review of Systems Constitutional: weakness EENTM: no symptoms reported Respiratory: no symptoms reported Cardiovascular: no symptoms reported Gastrointestinal: other (Ileus) Genitourinary: no symptoms reported Physical Exam Vital Signs Vital Signs - First Documented 12/28/18 13:58 Temp 98.2 Pulse 120 Resp 10 B/P (MAP) 237/128 (164) Pulse Ox 100 O2 Delivery Nasal Cannula O2 Flow Rate 4.00 Capillary Refill : Less Than 3 Seconds Height, Weight, BMI Height: 5'9.00" Weight: 190lbs. 0.0oz. [id number]; 28.1 BMI Method:Stated General Appearance: No Apparent Distress, WD/WN Eyes: Bilateral Eye Normal Inspection HEENT: Normal ENT Inspection Neck: Normal Inspection Respiratory: No Accessory Muscle Use, No Respiratory Distress Cardiovascular: Regular Rate, Rhythm, No Murmur Gastrointestinal: Distended Assessment/Plan Assessment and Plan Malignant hypertension. Strokelike syndrome. Postcholecystectomy Coronary artery disease. Weakness on right side of upper and lower extremities. Migraine history Admission Diagnosis Admission Status: Observation Clinical Quality Measures DVT/VTE Risk/Contraindication: Risk Factor Score Per Nursin RFS Level Per Nursing on Admit: 4+=Very High Stroke: Date of last known well: Dec 28, 2018 SILVER RABAGO DO Dec 28, 2018 20:03
[2018-12-29] VITALS (10 sets, daily range): BP systolic 130–166; BP diastolic 70–84
[2018-12-29] MEDS: HYDROmorphone 2 MG/ML VIAL (DILAUDID) IV PRN (01:11)
[2018-12-29 03:26] LABS: BASOPHILS % (AUTO) 0 % (0-10); EOSINOPHILS % (AUTO) 0 % (0-10); HEMATOCRIT 33 % (40-54); HEMOGLOBIN 10.3 G/DL (13.3-17.7); LYMPHOCYTES # (AUTO) 0.5 X 10^3 (1.0-4.0); LYMPHOCYTES % (AUTO) 6 % (12-44); MEAN CORPUSCULAR HEMOGLOBIN 26 PG (25-34); MEAN CORPUSCULAR HGB CONC 32 G/DL (32-36); MEAN CORPUSCULAR VOLUME 82 FL (80-99); MEAN PLATELET VOLUME 9.4 FL (7.4-10.4); MONOCYTES # (AUTO) 0.5 X 10^3 (0.0-1.0); MONOCYTES % (AUTO) 6 % (0-12); NEUTROPHILS # (AUTO) 7.6 X 10^3 (1.8-7.8); NEUTROPHILS % (AUTO) 88 % (42-75); PLATELET COUNT 299 10^3/uL (130-400); RED CELL DISTRIBUTION WIDTH 16.2 % (10.0-14.5); WHITE BLOOD COUNT 8.7 10^3/uL (4.3-11.0)
[2018-12-29] MEDS: niCARdipine 50 MG/NS 250 ML IV DRIP IV SCH ×2 (03:28)
--- NOTE | 2018-12-29 03:31 | NUR ---
ASSISTANT CLINICAL DIRECTOR ARE NOW EQUAL BILAT
[2018-12-29 04:06] LABS: ALBUMIN 3.9 GM/DL (3.2-4.5); BILIRUBIN,TOTAL 0.2 MG/DL (0.1-1.0); CALCIUM 8.6 MG/DL (8.5-10.1); CREATININE SERUM 1.79 MG/DL (0.60-1.30); MAGNESIUM 2.1 MG/DL (1.8-2.4); PHOSPHORUS 4.4 MG/DL (2.3-4.7); TOTAL PROTEIN 6.9 GM/DL (6.4-8.2)
--- NOTE | 2018-12-29 05:03 | Pulmonary Consultation ---
History of Present Illness History of Present Illness Date of Consultation 12/29/18 04:58 Date of Admission Allergies and Home Medications Allergies Coded Allergies: penicillin G (Verified Allergy, Severe, SWELLING, 12/22/18) Home Medications Amlodipine Besylate 10 Mg Tablet, 10 MG PO DAILY, (Reported) LAST FILLED #90 06-16-18 Aspirin 81 Mg Tablet.dr, 81 MG PO HS, (Reported) Atorvastatin Calcium 10 Mg Tablet, 10 MG PO HS, (Reported) LAST FILLED #30 08-24-18 Bupropion HCl 150 Mg Tablet.er, 150 MG PO BID, (Reported) Buspirone HCl 15 Mg Tablet, 15 MG PO TID, (Reported) Carvedilol 6.25 Mg Tablet, 6.25 MG PO BID, (Reported) LAST FILLED #180 06-17-18 Clonidine HCl 0.1 Mg Tablet, 0.1 MG PO TID, (Reported) Clopidogrel Bisulfate 75 Mg Tablet, 75 MG PO HS, (Reported) Docusate Sodium 100 Mg Capsule, 100 MG PO BID Prescribed by: MERLIN EVANS on 12/28/18 1051 Hydralazine HCl 10 Mg Tablet, 10 MG PO TID Prescribed by: MORGAN LARES on 12/24/18 1707 Hydrocodone Bit/Acetaminophen 1 Tab Tab, 1-2 TAB PO Q6H PRN for PAIN-MODERATE Prescribed by: MERLIN EVANS on 12/28/18 1051 Losartan Potassium 100 Mg Tablet, 100 MG PO HS, (Reported) Nitrofurantoin Monohyd/M-Cryst 100 Mg Capsule, 100 MG PO BID Prescribed by: MORGAN LARES on 12/24/18 1707 Nitroglycerin 0.4 Mg Tab.subl, 0.4 MG SL UD PRN for CHEST PAIN, (Reported) PLACE 1 TAB UNDER TONGUE NEEDED FOR CHEST PAIN; IF PAIN REMAINS AFTER 5 MINUTES, CALL 911 [place]-3 Fatty Acids/Fish Oil 1 Each Capsule, 1,000 MG PO BID, (Reported) Pantoprazole Sodium 40 Mg Tablet.dr, 40 MG PO DAILY Prescribed by: MERLIN EVANS on 12/05/18 165 Sertraline HCl 100 Mg Tablet, 100 MG PO DAILY, (Reported) LAST FILLED #30 08-24-18 TAKES ALONG WITH 25MG TABLET Sertraline HCl 25 Mg Tablet, 25 MG PO DAILY, (Reported) TAKES ALONG WITH 100MG TABLET Past Pxevvfp-Lgpqco-Zceoue Hx Past Med/Social Hx: Reviewed Nursing Past Med/Soc Hx Patient Social History Alcohol Use: Denies Use Number of Drinks Today: AA Alcohol Beverage of Choice: Beer Recreational Drug Use: No Drug of Choice: + IV METH USE, ALSO THC, WELL RX DRUGS Type Used: Cigarettes Former Smoker, Quit: Aug 24, 2016 2nd Hand Smoke Exposure: Yes Recent Foreign Travel: No Contact w/Someone Who Travel: No Recent Infectious Disease Expo: No Recent Hopitalizations: No Immunizations Up To Date Tetanus Booster (TDap): Less than 5yrs PED Vaccines UTD: No Date of Influenza Vaccine: Jul 28, 2017 Seasonal Allergies Seasonal Allergies: No Past Medical History Surgeries: Yes Bladder Surgery, Cardiac, Coronary Stent, Gallbladder, Orthopedic, Prostatectomy Respiratory: Yes Sleep Apnea Currently Using CPAP: No Currently Using BIPAP: No Cardiac: Yes Coronary Artery Disease, Deep Vein Thrombosis, Heart Attack, High Cholesterol, Hypertension Neurological: Yes Headaches /Migraines, TIA Reproductive Disorders: No Sexually Transmitted Disease: No HIV/AIDS: No Genitourinary: Yes Kidney Infection, Prostate Problems, Bladder Infection, Kidney Stones, UTI- Chronic Gastrointestinal: Yes Gastroesophageal Reflux, Chronic Diarrhea, Hiatal Hernia, Ulcer, Gall Bladder Disease Musculoskeletal: Yes Arthritis, Rheumatoid Arthritis, Back Injury, Chronic Back Pain, Fractures Endocrine: No (BUT HAS HAD HYPERGLYCEMIA AT TIMES) HEENT: Yes Eye Injury Loss of Vision: Denies Hearing Impairment: Denies Cancer: Yes Prostate Did You Recieve Any Treatments: Yes What Type of Treatment Did You: Radiation Psychosocial: Yes (History of illicit and prescription drug abuse) Sleep Difficulties, Anxiety, Depression Integumentary: No Blood Disorders: No Adverse Reaction/Blood Tranf: No (N/A) Family Medical History Reviewed Nursing Family Hx Arthritis 19 MOTHER VEST FINISHER G8 SISTER FH: COPD (chronic obstructive pulmonary disease) Hypercholesterolemia 19 MOTHER Hypertension 19 MOTHER Heart Disease, Hypertension Sepsis Event Evaluation Height, Weight, BMI Height: 5'9.00" Weight: 190lbs. 0.0oz. [id number]; 28.1 BMI Method:Stated Exam Exam Vital Signs Date Time Temp Pulse Resp B/P (MAP) Pulse Ox O2 Delivery O2 Flow Rate FiO2 12/29/18 04:00 63 9 153/84 (107) 92 Nasal Cannula 5.00 12/29/18 04:00 94 Nasal Cannula 5.00 12/29/18 03:32 98.3 12/29/18 03:00 63 13 130/80 (97) 93 Nasal Cannula 5.00 12/29/18 02:00 68 10 153/77 (102) 93 Nasal Cannula 5.00 12/29/18 01:00 65 12/29/18 01:00 65 20 139/75 (96) 95 Nasal Cannula 5.00 12/29/18 00:00 94 Nasal Cannula 5.00 12/29/18 00:00 62 11 145/74 (97) 95 Nasal Cannula 5.00 12/29/18 00:00 97.2 12/28/18 23:00 65 23 141/83 (102) 95 Nasal Cannula 5.00 12/28/18 22:00 64 18 129/74 (92) 96 Nasal Cannula 5.00 12/28/18 21:44 Nasal Cannula 5.00 12/28/18 21:00 65 17 109/67 (81) 92 Nasal Cannula 5.00 12/28/18 20:00 74 15 146/77 (100) 94 Nasal Cannula 5.00 12/28/18 20:00 97.8 12/28/18 20:00 94 Nasal Cannula 5.00 12/28/18 19:00 71 20 142/70 (94) 93 Nasal Cannula 5.00 12/28/18 19:00 70 12/28/18 18:00 70 18 127/70 (89) 94 Nasal Cannula 5.00 12/28/18 16:47 71 12/28/18 16:45 72 23 133/100 (111) 93 Nasal Cannula 5.00 12/28/18 16:40 97.6 73 18 131/76 (94) 93 Nasal Cannula 2.00 12/28/18 16:40 93 Nasal Cannula 2.00 12/28/18 16:30 98.2 74 18 116/66 (83) 97 Room Air 97.00 12/28/18 13:58 98.2 120 10 237/128 (164) 100 Nasal Cannula 4.00 12/28/18 13:58 100 Nasal Cannula 4.00 I & O 12/29/18 07:00 Intake Total 700 ml Output Total 600 ml Balance 100 ml Height & Weight Height: 5'9.00" Weight: 190lbs. 0.0oz. 86.573890jr; 28.1 BMI Method:Stated General Appearance: No Apparent Distress, WD/WN HEENT: Normal ENT Inspection Neck: Normal Inspection Respiratory: No Accessory Muscle Use, No Respiratory Distress Cardiovascular: Regular Rate, Rhythm, No Murmur Capillary Refill: Less Than 3 Seconds Gastrointestinal: soft, tenderness (abdomen over surgical areas although abdomen soft and pain expected level.) Results Lab Laboratory Tests 12/28/18 14:05 12/29/18 03:18 Assessment/Plan Assessment/Plan Acute Stroke like symptoms - presented while in recovery after cholecystectomy -- Symptoms now resolved -Head CT is negative -Start ASA if ok with Dr. Evans HTN emergency -Cardene is now off -Restart home meds S/p Cholecystectomy Probable LEIGH ANN -Out pt testing if pt is agreeable Hx of tobacco use -Will do ambulatory oxy study prior to discharge -Consider out pt PFT MACY CARNEY DO Dec 29, 2018 05:03
[2018-12-29] MEDS ORDERED: KCL 20 MEQ TAB (K-DUR) PO SCH (06:00)
[2018-12-29] MEDS ORDERED: MAGNESIUM 1 GM/100 ML IVPB 100 ML IV SCH (06:00)
[2018-12-29] MEDS ORDERED: POTASSIUM CL 10MEQ/50ML IVPB 50 ML IV SCH (06:00)
[2018-12-29] MEDS: amLODIPine 5 MG (NORVASC) TAB PO SCH (07:53)
[2018-12-29] MEDS: cloNIDine 0.1 MG (CATAPRES) TAB PO SCH ×3 (07:53→21:48)
[2018-12-29] MEDS: CARVEDILOL 6.25 MG (COREG) TAB PO SCH ×2 (07:53→21:48)
--- NOTE | 2018-12-29 07:55 | Progress Note ---
Subjective Time Seen by a Provider: 07:51 Subjective/Events-last exam She doing better today. Patient talking. No drooping of mouth Able to move and use right hand. Able to move right foot. Blood pressure better. Patient nauseous due to pain medicine Objective Exam Vital Signs Date Time Temp Pulse Resp B/P (MAP) Pulse Ox O2 Delivery O2 Flow Rate FiO2 12/29/18 06:00 66 11 146/70 (95) 89 Room Air 12/29/18 05:00 60 21 146/79 (101) 93 Nasal Cannula 5.00 12/29/18 04:00 63 9 153/84 (107) 92 Nasal Cannula 5.00 12/29/18 04:00 94 Nasal Cannula 5.00 12/29/18 03:32 98.3 12/29/18 03:00 63 13 130/80 (97) 93 Nasal Cannula 5.00 12/29/18 02:00 68 10 153/77 (102) 93 Nasal Cannula 5.00 12/29/18 01:00 65 12/29/18 01:00 65 20 139/75 (96) 95 Nasal Cannula 5.00 12/29/18 00:00 94 Nasal Cannula 5.00 12/29/18 00:00 62 11 145/74 (97) 95 Nasal Cannula 5.00 12/29/18 00:00 97.2 12/28/18 23:00 65 23 141/83 (102) 95 Nasal Cannula 5.00 12/28/18 22:00 64 18 129/74 (92) 96 Nasal Cannula 5.00 12/28/18 21:44 Nasal Cannula 5.00 12/28/18 21:00 65 17 109/67 (81) 92 Nasal Cannula 5.00 12/28/18 20:00 74 15 146/77 (100) 94 Nasal Cannula 5.00 12/28/18 20:00 97.8 12/28/18 20:00 94 Nasal Cannula 5.00 12/28/18 19:00 71 20 142/70 (94) 93 Nasal Cannula 5.00 12/28/18 19:00 70 12/28/18 18:00 70 18 127/70 (89) 94 Nasal Cannula 5.00 12/28/18 16:47 71 12/28/18 16:45 72 23 133/100 (111) 93 Nasal Cannula 5.00 12/28/18 16:40 97.6 73 18 131/76 (94) 93 Nasal Cannula 2.00 12/28/18 16:40 93 Nasal Cannula 2.00 12/28/18 16:30 98.2 74 18 116/66 (83) 97 Room Air 97.00 12/28/18 13:58 98.2 120 10 237/128 (164) 100 Nasal Cannula 4.00 12/28/18 13:58 100 Nasal Cannula 4.00 I & O 12/29/18 07:00 Intake Total 700 ml Output Total 600 ml Balance 100 ml Capillary Refill : Less Than 3 Seconds General Appearance: No Apparent Distress, WD/WN HEENT: Normal ENT Inspection Neck: Full Range of Motion, Normal Inspection Respiratory: Lungs Clear, No Accessory Muscle Use, No Respiratory Distress Cardiovascular: Regular Rate, Rhythm Gastrointestinal: non tender, other (Slightly distended) Results Lab Laboratory Tests 12/28/18 14:05 12/29/18 03:18 Laboratory Tests 12/28/18 14:05: White Blood Count 11.6H, Red Blood Count 4.61, Hemoglobin 11.8L, Hematocrit 38L, Mean Corpuscular Volume 82, Mean Corpuscular Hemoglobin 26, Mean Corpuscular Hemoglobin Concent 31L, Red Cell Distribution Width 15.6H, Platelet Count 281, Mean Platelet Volume 9.5, Neutrophils (%) (Auto) 90H, Lymphocytes (%) (Auto) 8L, Monocytes (%) (Auto) 1, Eosinophils (%) (Auto) 1, Basophils (%) (Auto) 0, Neutrophils # (Auto) 10.4H, Lymphocytes # (Auto) 0.9L, Monocytes # (Auto) 0.2, Eosinophils # (Auto) 0.1, Basophils # (Auto) 0.0, Neutrophils % (Manual) 87, Lymphocytes % (Manual) 11, Monocytes % (Manual) 2, Eosinophils % (Manual) 0, Basophils % (Manual) 0, Band Neutrophils 0, Anisocytosis SLIGHT, Prothrombin Time 12.9, INR Comment 0.9, Activated Partial Thromboplast Time 26, D-Dimer 0.64H, Sodium Level 136, Potassium Level 4.5, Chloride Level 101, Carbon Dioxide Level 27, Anion Gap 8, Blood Urea Nitrogen 15, Creatinine 1.54H, Estimat Glomerular Filtration Rate 47, BUN/Creatinine Ratio 10, Glucose Level 128H, Calcium Level 9.3, Corrected Calcium 9.1, Total Bilirubin 0.2, Aspartate Amino Transf (AST/SGOT) 41H, Alanine Aminotransferase (ALT/SGPT) 38, Alkaline Phosphatase 152H, Troponin I < 0.028, Total Protein 7.9, Albumin 4.3 12/28/18 14:37: Glucometer 138H 12/29/18 03:18: White Blood Count 8.7, Red Blood Count 3.98L, Hemoglobin 10.3L, Hematocrit 33L, Mean Corpuscular Volume 82, Mean Corpuscular Hemoglobin 26, Mean Corpuscular Hemoglobin Concent 32, Red Cell Distribution Width 16.2H, Platelet Count 299, Mean Platelet Volume 9.4, Neutrophils (%) (Auto) 88H, Lymphocytes (%) (Auto) 6L, Monocytes (%) (Auto) 6, Eosinophils (%) (Auto) 0, Basophils (%) (Auto) 0, Neutrophils # (Auto) 7.6, Lymphocytes # (Auto) 0.5L, Monocytes # (Auto) 0.5, Eosinophils # (Auto) 0.0, Basophils # (Auto) 0.0, Sodium Level 136, Potassium Level 5.0, Chloride Level 104, Carbon Dioxide Level 19L, Anion Gap 13, Blood Urea Nitrogen 24H, Creatinine 1.79H, Estimat Glomerular Filtration Rate 39, BUN/Creatinine Ratio 13, Glucose Level 127H, Calcium Level 8.6, Corrected Calcium 8.7, Total Bilirubin 0.2, Aspartate Amino Transf (AST/SGOT) 31, Alanine Aminotransferase (ALT/SGPT) 38, Alkaline Phosphatase 140H, Total Protein 6.9, Albumin 3.9, Phosphorus Level 4.4, Magnesium Level 2.1, Triglycerides Level 194H , Cholesterol Level 227H, LDL Cholesterol Direct 145H, VLDL Cholesterol 39, HDL Cholesterol 45 Assessment/Plan Assessment/Plan Assess & Plan/Chief Complaint Patient improved. Moving all extremities. Speaking good. Acute stroke symptoms resolving. Hypertension resolving. Tobacco use. Postcholecystectomy. Coronary artery disease. Malignant hypertension resolving. Renal insufficiency slightly worse Clinical Quality Measures Admission Status Admission Dx Malignant hypertension. Strokelike syndrome. Postcholecystectomy Coronary artery disease. Weakness on right side of upper and lower extremities. Migraine history DVT/VTE Risk/Contraindication: Risk Factor Score Per Nursin RFS Level Per Nursing on Admit: 4+=Very High Contraindications-Pharm: Other *list below* Stroke: Date of last known well: Dec 28, 2018 ANDRES RABAGO DO Dec 29, 2018 07:55
--- NOTE | 2018-12-29 08:09 | Diagnostic Imaging Report ---
Indication: Dyspnea. Comparison: 12/28/2018. Findings: Stable low lung volumes. Left basilar subsegmental atelectasis unchanged. No pleural effusion or pneumothorax. Stable cardiomediastinal silhouette. Impression: Stable exam without adverse development. Dictated by: Dictated on workstation # [id number]
--- NOTE | 2018-12-29 08:21 | Consultation-Cardiology ---
HPI-Cardiology Cardiology Consultation: Date of Consultation 12/29/18 Date of Admission Attending Physician Silver Hernandes DO Admitting Physician Silver Hernandes DO Consulting Physician Joe CULVER MD HPI: Time Seen by a Provider: 08:20 Chief Complaint: Severe hypertension, chest pain This is a 58-year-old gentleman who presented with complains of severe hypertension and stroke like symptoms. Patient had gallbladder surgery yesterday. He did not take his antihypertensive medications today. He also complained of chest pain overnight. The patient has previous history of CAD. Review of Systems-Cardiology Review of Systems Constitutional: As described under HPI; No As described under HPI, No no symptoms reported, No chills, No fever, No lightheadedness Eyes: No As described under HPI, No no symptoms reported, No blindness, No blurred vision, No contact lenses, No drainage, No decreased acuity, No foreign body sensation, No pain, No vision change Ears/Nose/Throat: No As described under HPI, No no symptoms reported, No chronic hearing loss, No ear discharge, No ear pain, No nasal drainage, No ulcerations Respiratory: No no symptoms reported; As described under HPI; No As described under HPI, No cough, No orthopnea, No shortness of breath, No SOB with excertion Cardiovascular: No no symptoms reported; As described under HPI; No As described under HPI; chest pain; No edema, No irregular heart rate, No lightheadedness, No palpitations Gastrointestinal: No no symptoms reported, No As described under HPI, No abdomen distended, No abdominal pain, No blood streaked bowels, No constipation, No diarrhea, No nausea, No vomiting, No stool coloration changes Genitourinary: No As described under HPI, No burning, No dysuria, No discharge, No frequency, No flank pain, No hematuria, No urgency Skin: No rash, No skin related problems, No ulcerations Psychiatric/Neurological: No anxiety, No depression, No seizure, No focal weakness, No syncope Hematologic: No bleeding abnormalities [id number] Hx Patient Social History Marrital Status: cohabiting Alcohol Use: Denies Use Recreational Drug Use: No Drug of Choice: + IV METH USE, ALSO THC, WELL RX DRUGS Type Used: Cigarettes 2nd Hand Smoke Exposure: Yes Recent Foreign Travel: No Recent Infectious Disease Expo: No Hospitalization with Isolation: Denies Immunizations Up To Date Tetanus Booster (TDap): Less than 5yrs Date of Influenza Vaccine: Jul 28, 2017 Past Medical History PMH As described under Assessment. Family Medical History Family Medical History: His mother has high blood pressure. No reported h/o premature CAD. Family History: Arthritis 19 MOTHER STUDENT FINANCIAL AID MANAGER G8 SISTER FH: COPD (chronic obstructive pulmonary disease) Hypercholesterolemia 19 MOTHER Hypertension 19 MOTHER Allergies and Home Medications Allergies Coded Allergies: penicillin G (Verified Allergy, Severe, SWELLING, 12/22/18) Home Medications Amlodipine Besylate 10 Mg Tablet, 10 MG PO DAILY, (Reported) Aspirin 81 Mg Tablet.dr, 81 MG PO HS, (Reported) Atorvastatin Calcium 10 Mg Tablet, 10 MG PO HS, (Reported) Bupropion HCl 150 Mg Tablet.er, 150 MG PO BID, (Reported) LAST FILLED #180 08-09-18 Buspirone HCl 15 Mg Tablet, 15 MG PO TID, (Reported) Carvedilol 6.25 Mg Tablet, 6.25 MG PO BID, (Reported) Clonidine HCl 0.1 Mg Tablet, 0.2 MG PO TID, (Reported) TAKES 2 (0.1MG) TABLETS Clopidogrel Bisulfate 75 Mg Tablet, 75 MG PO HS, (Reported) Docusate Sodium 100 Mg Capsule, 100 MG PO BID Prescribed by: MERLIN BISWAS on 12/28/18 1051 Hydrocodone Bit/Acetaminophen 1 Tab Tab, 1-2 TAB PO Q6H PRN for PAIN-MODERATE Prescribed by: MERLIN BISWAS on 12/28/18 1051 Losartan Potassium 100 Mg Tablet, 100 MG PO HS, (Reported) LAST FILLED #90 08-09-18 Nitroglycerin 0.4 Mg Tab.subl, 0.4 MG SL UD PRN for CHEST PAIN, (Reported) PLACE 1 TAB UNDER TONGUE NEEDED FOR CHEST PAIN; IF PAIN REMAINS AFTER 5 MINUTES, CALL 911 [place]-3 Fatty Acids/Fish Oil 1 Each Capsule, 1,000 MG PO TID, (Reported) Pantoprazole Sodium 40 Mg Tablet.dr, 40 MG PO BID, (Reported) Sertraline HCl 100 Mg Tablet, 100 MG PO DAILY, (Reported) TAKES ALONG WITH 25MG TABLET Sertraline HCl 25 Mg Tablet, 25 MG PO DAILY, (Reported) TAKES ALONG WITH 100MG TABLET Patient Home Medication List Home Medication List Reviewed: Yes Physical Exam-Cardiology Physical Exam Vital Signs/I&O 12/29/18 12/29/18 12/29/18 12/29/18 01:00 01:00 02:00 03:00 Pulse 65 65 68 63 Resp 20 10 13 B/P (MAP) 139/75 (96) 153/77 (102) 130/80 (97) Pulse Ox 95 93 93 O2 Delivery Nasal Cannula Nasal Cannula Nasal Cannula O2 Flow Rate 5.00 5.00 5.00 12/29/18 12/29/18 12/29/18 12/29/18 03:32 04:00 04:00 05:00 Temp 98.3 Pulse 63 60 Resp 9 21 B/P (MAP) 153/84 (107) 146/79 (101) Pulse Ox 94 92 93 O2 Delivery Nasal Cannula Nasal Cannula Nasal Cannula O2 Flow Rate 5.00 5.00 5.00 12/29/18 12/29/18 12/29/18 06:00 07:00 08:00 Pulse 66 66 65 Resp 11 11 B/P (MAP) 146/70 (95) 161/77 (105) Pulse Ox 89 90 O2 Delivery Room Air Room Air 12/29/18 00:00 Intake Total 700 ml Output Total 250 ml Balance 450 ml Capillary Refill : Less Than 3 Seconds Constitutional: appears stated age, AAO x 3; No apparent distress; well- developed, well-nourished HEENT: PERRL; No normal ENT inspection, No TMs normal, No pharynx normal, No scleral icterus (R), No scleral icterus (L), No pale conjunctivae (R), No pale conjunctivae (L), No photophobia, No TM abnormal (R), No TM abnormal (L), No pharyngeal erythema, No tonsillar exudate, No other, No discharge, No EOMI; hearing is well preserved; No hard of hearing; oral hygience is good; No ulceration, No xanthelasmas are seen Neck: No non-tender, No full range of motion, No supple, No normal inspection, No carotid bruit, No limited range of motion, No lymphadenopathy (R), No lymphadenopathy (L), No tender lateral, No tender midline, No thyromegaly, No other; carotid pulses are 2 + bilaterally; No with good upstrokes Respiratory: No accessory muscle use, No respiratory distress, No chest tender, No chest expansion is symmetric; chest is bilaterally symmetric; No lungs clear to percussion; lungs clear to auscultation; No crackles, No rhonchi, No rales, No stridor, No wheezing, No pleural rub, No other Cardiovascular: regular rate-rhythm; No irregularly irregular, No extra beats, No parasternal heave is noted, No JVD, No edema, No bradycardia, No tachycardia, No point of maximal impulse, No cardiac thrills are palpable; S1 and S2; No gallop/S3, No gallop/S4, No diastolic murmur, No systolic murmur, No friction rub, No click, No other Gastrointestinal: No tender, No soft, No round, No distended, No pulsatile mass, No organomegaly, No guarding, No rebound, No tenderness, No hernia, No mas s, No audible bowel sounds, No abnormal bowel sounds, No abdominal bruits, No spleenomegaly, No other Rectal: deferred Extremities: No normal range of motion, No non-tender, No normal inspection, No pedal edema, No calf tenderness, No normal capillary refill, No pelvis stable, No calf tenderness, No inflammation, No pedal edema, No slow capillary refill, No swelling, No other, No abrasion, No clubbing, No cyanosis, No ecchymosis, No laceration, No no lower extremity edema bilateral, No significant edema, No tenderness, No wound Neurologic/Psychiatric: no motor/sensory deficits, alert, normal mood/affect, oriented x 3, power is 5/5 both on sides Skin: No rash, No ulcerations Data Review Labs Laboratory Tests 12/28/18 14:05: White Blood Count 11.6H, Red Blood Count 4.61, Hemoglobin 11.8L, Hematocrit 38L, Mean Corpuscular Volume 82, Mean Corpuscular Hemoglobin 26, Mean Corpuscular Hemoglobin Concent 31L, Red Cell Distribution Width 15.6H, Platelet Count 281, Mean Platelet Volume 9.5, Neutrophils (%) (Auto) 90H, Lymphocytes (%) (Auto) 8L, Monocytes (%) (Auto) 1, Eosinophils (%) (Auto) 1, Basophils (%) (Auto) 0, Neutrophils # (Auto) 10.4H, Lymphocytes # (Auto) 0.9L, Monocytes # (Auto) 0.2, Eosinophils # (Auto) 0.1, Basophils # (Auto) 0.0, Neutrophils % (Manual) 87, Lymphocytes % (Manual) 11, Monocytes % (Manual) 2, Eosinophils % (Manual) 0, Basophils % (Manual) 0, Band Neutrophils 0, Anisocytosis SLIGHT, Prothrombin Time 12.9, INR Comment 0.9, Activated Partial Thromboplast Time 26, D-Dimer 0.64H, Sodium Level 136, Potassium Level 4.5, Chloride Level 101, Carbon Dioxide Level 27, Anion Gap 8, Blood Urea Nitrogen 15, Creatinine 1.54H, Estimat Glomerular Filtration Rate 47, BUN/Creatinine Ratio 10, Glucose Level 128H, Calcium Level 9.3, Corrected Calcium 9.1, Total Bilirubin 0.2, Aspartate Amino Transf (AST/SGOT) 41H, Alanine Aminotransferase (ALT/SGPT) 38, Alkaline Phosphatase 152H, Troponin I < 0.028, Total Protein 7.9, Albumin 4.3 12/28/18 14:37: Glucometer 138H 12/29/18 03:18: White Blood Count 8.7, Red Blood Count 3.98L, Hemoglobin 10.3L, Hematocrit 33L, Mean Corpuscular Volume 82, Mean Corpuscular Hemoglobin 26, Mean Corpuscular Hemoglobin Concent 32, Red Cell Distribution Width 16.2H, Platelet Count 299, Mean Platelet Volume 9.4, Neutrophils (%) (Auto) 88H, Lymphocytes (%) (Auto) 6L, Monocytes (%) (Auto) 6, Eosinophils (%) (Auto) 0, Basophils (%) (Auto) 0, Neutrophils # (Auto) 7.6, Lymphocytes # (Auto) 0.5L, Monocytes # (Auto) 0.5, Eosinophils # (Auto) 0.0, Basophils # (Auto) 0.0, Sodium Level 136, Potassium Level 5.0, Chloride Level 104, Carbon Dioxide Level 19L, Anion Gap 13, Blood Urea Nitrogen 24H, Creatinine 1.79H, Estimat Glomerular Filtration Rate 39, BUN/Creatinine Ratio 13, Glucose Level 127H, Calcium Level 8.6, Corrected Calcium 8.7, Total Bilirubin 0.2, Aspartate Amino Transf (AST/SGOT) 31, Alanine Aminotransferase (ALT/SGPT) 38, Alkaline Phosphatase 140H, Troponin I < 0.028, Total Protein 6.9, Albumin 3.9, Phosphorus Level 4.4, Magnesium Level 2.1, Triglycerides Level 194H, Cholesterol Level 227H, LDL Cholesterol Direct 145H, VLDL Cholesterol 39, HDL Cholesterol 45 ECG Impression ECG Initial ECG Rhythm: Normal Sinus Initial ECG Impression: Normal A/P-Cardiology Assessment/Admission Diagnosis Severe hypertension, CAD, Hypertension, Hyperlipidemia, Chest pain Plan Aggressive hypertension management., Continue dual antiplatelet therapy for CAD, Continue statin therapy for hyperlipidemia, Chest pain: Serial negative troponin. Negative EKG. Will not proceed with invasive evaluation at this point in time. Thank you for your consultation. Please call me if you have any questions. Blaine Culver MD, FACP, FACC, FSCAI, FHRS, CCDS Interventional Cardiology Cardiac Electrophysiology Vascular Medicine and Endovascular Interventions Clinical Quality Measures DVT/VTE Risk/Contraindication: Risk Factor Score Per Nursin RFS Level Per Nursing on Admit: 4+=Very High Contraindications-Pharm: Other *list below* Stroke: Date of last known well: Dec 28, 2018 Joe CULVER MD Dec 29, 2018 08:20
[2018-12-29] MEDS ORDERED: HYDROcodone/APAP 7.5 MG/325 MG (LORTAB, LORCET PLUS) TABLET PO ONE (10:41)
[2018-12-29] MEDS: ONDANSETRON 4 MG/2 ML (SDV) Z0FRAN IV PRN (10:48)
[2018-12-29] MEDS: HYDROcodone/APAP 7.5 MG/325 MG (LORTAB, LORCET PLUS) TABLET PO PRN ×2 (10:49→21:48)
[2018-12-29] MEDS ORDERED: PANT40TA2 PO (11:33)
[2018-12-29] MEDS ORDERED: CLON0.1T PO (11:49)
--- NOTE | 2018-12-29 11:53 | NUR ---
SPOKE WITH THE PATIENT REGARDING HIS MEDICATIONS. I HAD A LIST FAXED OVER FROM [facility] AND WENT OVER IT WITH THE PATIENT. [facility] HAS NOT FILLED ANYTHING FOR HIM SINCE SEPTEMBER. [facility] FILLED: MACROBID WAS PRESCRIBED BY ED- HE DIDN'T P/U B/C HE HAD SOME AT HOME, NOT TAKING ANYMORE 12-26-18 HYDRALAZINE 10MG TID #10 (NO LONGER TAKING) 12-22-18 CLONIDINE 0.1MG TID #270 (INCREASED TO 2 TABS TID) 12-19-18 SERTRALINE 25MG DAILY #30 (TAKES ALONG WITH 100MG TABLET) 12-19-18 AMLODIPINE 10MG DAILY #60 12-08-18 BUSPIRONE 15MG TID #63 12-08-18 PROTONIX 40MG DAILY #90 (TAKES BID, ALSO FILLED #90 11-09-18) 12-07-18 SERTRALINE 100MG DAILY #30 (TAKES ALONG WITH 25MG TABLET) 11-21-18 PLAVIX 75MG DAILY #90 10-24-18 LIPITOR 10MG HS #90 10-24-18 COREG 6.25MG BID #180 08-09-18 BUPROPION SR 150MG BID #180 (PAST DUE, STATES HE NEEDS TO GET IT REFILLED) 08-09-18 LOSARTAN 100MG HS #90 (STATES HE NEEDS TO GET REFILLED BUT IS TAKING IT) HE TAKES FISH OIL TID, AND ASPIRIN 81MG HS OTC. HE ALSO STATES HE HAS NITROGLYCERIN ON HAND AT HOME IF NEEDED. HYDROCODONE AND COLACE WERE NEW PRESCRIPTIONS PRESCRIBED BY DR BISWAS THIS VISIT, THEY ARE PRINTED AND ON HIS CHART. I LEFT THEM ON THE MED REC.
--- NOTE | 2018-12-29 15:33 | NUR ---
ARRIVED TO PATIENTS ROOM PATIENT ON ROOM AIR. PATIENTS OXYGEN SAT WAS 85% PLACED PATIENT ON OXYGEN AT 3 L/M AND WAITED FOR SAT TO COME UP TO 95% THEN GOT PATIENT UP FOR WALK WALKED FOR 6 MINUTES WITH SAT DROPING TO 94% ON 3L AT 2 MINUITS INTO WALK AND REMAINED THERE FOR THE REST OF THE 6 MINUTE WALK .PATIENT PLACED ON 3 L WHEN RETUREND TO ROOM. Addendum: 12/29/18 at 1533 by MELVINA VALLE RT Amended: Links added.
[2018-12-30] VITALS: BP 132/66
--- NOTE | 2018-12-30 01:15 | NUR ---
Transferred to room 420 per w/c. 02 at 3L/NC. Rates abdoinal pain 01/27. Saline lock x2 in place. Urinal at bedside. Fresh waterr given. Personal cell phone at bedside. Belongings at bedside.
[2018-12-30 04:00] VITALS: BP 169/83
[2018-12-30 04:50] LABS: BASOPHILS % (AUTO) 0 % (0-10); EOSINOPHILS # (AUTO) 0.1 10^3/uL (0.0-0.3); EOSINOPHILS % (AUTO) 2 % (0-10); HEMATOCRIT 30 % (40-54); HEMOGLOBIN 9.3 G/DL (13.3-17.7); LYMPHOCYTES % (AUTO) 21 % (12-44); MEAN CORPUSCULAR HEMOGLOBIN 26 PG (25-34); MEAN CORPUSCULAR HGB CONC 31 G/DL (32-36); MEAN CORPUSCULAR VOLUME 84 FL (80-99); MEAN PLATELET VOLUME 9.3 FL (7.4-10.4); MONOCYTES # (AUTO) 0.6 X 10^3 (0.0-1.0); MONOCYTES % (AUTO) 13 % (0-12); NEUTROPHILS # (AUTO) 3.1 X 10^3 (1.8-7.8); NEUTROPHILS % (AUTO) 64 % (42-75); PLATELET COUNT 225 10^3/uL (130-400); WHITE BLOOD COUNT 4.8 10^3/uL (4.3-11.0)
[2018-12-30 05:11] LABS: PHOSPHORUS 3.5 MG/DL (2.3-4.7)
[2018-12-30 05:13] LABS: CALCIUM 8.5 MG/DL (8.5-10.1); CREATININE SERUM 1.58 MG/DL (0.60-1.30); POTASSIUM 4.1 MMOL/L (3.6-5.0)
--- NOTE | 2018-12-30 06:29 | Pulmonary Progress Note ---
Subjective Time Seen by a Provider: 06:29 Subjective/Events-last exam No complications noted. Sepsis Event Evaluation Height, Weight, BMI Height: 5'9.00" Weight: 191lbs. 0.0oz. 86.382316vl; 28.1 BMI Method:Stated Exam Exam Vital Signs Date Time Temp Pulse Resp B/P (MAP) Pulse Ox O2 Delivery O2 Flow Rate FiO2 12/30/18 04:00 94 Nasal Cannula 3.00 12/30/18 00:00 98.1 54 17 132/66 (88) 94 Nasal Cannula 3.00 12/30/18 00:00 94 Nasal Cannula 3.00 12/29/18 23:43 Nasal Cannula 3.00 12/29/18 20:00 94 Nasal Cannula 3.00 12/29/18 20:00 98.4 57 16 166/79 (108) 92 Nasal Cannula 3.00 12/29/18 19:00 61 12/29/18 16:00 90 Room Air 0.00 12/29/18 13:00 60 12/29/18 12:00 90 Room Air 0.00 12/29/18 12:00 66 11 148/84 (105) Room Air 12/29/18 08:00 65 11 161/77 (105) 90 Room Air 12/29/18 08:00 90 Room Air 0.00 12/29/18 07:00 66 I & O 12/30/18 07:00 Intake Total 870 ml Output Total 900 ml Balance -30 ml Height & Weight Height: 5'9.00" Weight: 191lbs. 0.0oz. 86.608770fd; 28.1 BMI Method:Stated General Appearance: No Apparent Distress, WD/WN HEENT: Normal ENT Inspection Neck: Full Range of Motion, Normal Inspection Respiratory: Lungs Clear, No Accessory Muscle Use, No Respiratory Distress Cardiovascular: Regular Rate, Rhythm Capillary Refill: Less Than 3 Seconds Gastrointestinal: non tender, other (Slightly distended) Results Lab Laboratory Tests 12/28/18 14:05 12/29/18 03:18 12/30/18 04:25 Assessment/Plan Assessment/Plan Acute Stroke like symptoms - presented while in recovery after cholecystectomy -- Symptoms now resolved -Head CT is negative HTN emergency -Cardene is now off -Restart home meds S/p Cholecystectomy Probable [facility] -Out pt testing if pt is agreeable Hx of tobacco use -Will do ambulatory oxy study prior to discharge -Consider out pt PFT PT is doing better. I am going to sign off please call with any questions. MACY CARNEY DO Dec 30, 2018 06:29
[2018-12-30] MEDS: HYDROcodone/APAP 7.5 MG/325 MG (LORTAB, LORCET PLUS) TABLET PO PRN ×2 (06:51→13:29)
[2018-12-30 07:47] VITALS: BP 164/79
[2018-12-30] MEDS: CARVEDILOL 6.25 MG (COREG) TAB PO SCH (08:38)
[2018-12-30] MEDS: amLODIPine 5 MG (NORVASC) TAB PO SCH (08:38)
[2018-12-30] MEDS: cloNIDine 0.1 MG (CATAPRES) TAB PO SCH ×2 (08:39→13:30)
--- NOTE | 2018-12-30 11:53 | Progress Note - Hospitalist ---
Subjective HPI/CC On Admission Date Seen by Provider: Jan 03, 2019 Time Seen by Provider: 13:00 Objective Exam Vital Signs Vital Signs Date Time Temp Pulse Resp B/P (MAP) Pulse Ox O2 Delivery O2 Flow Rate FiO2 12/30/18 12:17 94 Nasal Cannula 3.00 12/30/18 12:09 98.0 56 16 144/74 (97) Capillary Refill : Less Than 3 Seconds General Appearance: No Apparent Distress, WD/WN HEENT: Normal ENT Inspection Neck: Full Range of Motion, Normal Inspection Respiratory: Lungs Clear, No Accessory Muscle Use, No Respiratory Distress Cardiovascular: Regular Rate, Rhythm Gastrointestinal: Distended Results/Procedures Lab Patient resulted labs reviewed. Clinical Quality Measures DVT/VTE Risk/Contraindication: Risk Factor Score Per Nursin RFS Level Per Nursing on Admit: 4+=Very High Contraindications-Pharm: Other *list below* Stroke: Date of last known well: Dec 28, 2018 MUKESH FERREIRA MD Dec 30, 2018 11:53
[2018-12-30 12:09] VITALS: BP 144/74
[2018-12-30] MEDS ORDERED: POLYETHYLENE GLYCOL 17 GM (MIRALAX) PACK PO NR (13:32)
--- NOTE | 2018-12-30 13:46 | Cardiology Progress Note ---
Cardiology SOAP Progress Note Subjective: still continues to have intermittent chest pain. Objective: I&O/Vital Signs 12/30/18 12/30/18 12/30/18 12/30/18 04:00 04:00 07:47 08:00 Temp 97.2 97.4 Pulse 56 52 Resp 18 16 B/P (MAP) 169/83 (111) 164/79 (107) Pulse Ox 94 95 94 O2 Delivery Nasal Cannula Nasal Cannula Nasal Cannula Nasal Cannula O2 Flow Rate 3.00 3.00 3.00 3.00 12/30/18 12/30/18 12/30/18 11:55 12:09 12:17 Temp 98.0 Pulse 56 Resp 16 B/P (MAP) 144/74 (97) Pulse Ox 92 94 O2 Delivery Nasal Cannula Nasal Cannula Nasal Cannula O2 Flow Rate 3.00 3.00 3.00 12/29/18 23:59 Intake Total 630 ml Balance 630 ml Weight (Pounds): 190 Weight (Ounces): 3.0 Weight (Calculated Kilograms): 86.253280 Constitutional: appears stated age, AAO x 3; No apparent distress; well- developed, well-nourished Respiratory: No accessory muscle use, No respiratory distress, No chest tender, No chest expansion is symmetric; chest is bilaterally symmetric; No lungs clear to percussion; lungs clear to auscultation; No crackles, No rhonchi, No rales, No stridor, No wheezing, No pleural rub, No other Cardiovascular: regular rate-rhythm; No irregularly irregular, No extra beats, No parasternal heave is noted, No JVD, No edema, No bradycardia, No tachycardia, No point of maximal impulse, No cardiac thrills are palpable; S1 and S2; No gallop/S3, No gallop/S4, No diastolic murmur, No systolic murmur, No friction rub, No click, No other Gastrointestional: No tender, No soft, No round, No distended, No pulsatile mass, No organomegaly, No guarding, No rebound, No tenderness, No hernia, No mass, No audible bowel sounds, No abnormal bowel sounds, No abdominal bruits, No spleenomegaly, No other Extremities: No normal range of motion, No non-tender, No normal inspection, No pedal edema, No calf tenderness, No normal capillary refill, No pelvis stable, No calf tenderness, No inflammation, No pedal edema, No slow capillary refill, No swelling, No other, No abrasion, No clubbing, No cyanosis, No ecchymosis, No laceration, No no lower extremity edema bilateral, No significant edema, No tenderness, No wound Neurologic/Psychiatric: no motor/sensory deficits, alert, normal mood/affect, oriented x 3, power is 5/5 both on sides Skin: No rash, No ulcerations Results/Procedures: Labs Laboratory Tests 12/30/18 04:25: White Blood Count 4.8, Red Blood Count 3.63L, Hemoglobin 9.3L, Hematocrit 30L, Mean Corpuscular Volume 84, Mean Corpuscular Hemoglobin 26, Mean Corpuscular Hemoglobin Concent 31L, Red Cell Distribution Width 16.0H, Platelet Count 225, Mean Platelet Volume 9.3, Neutrophils (%) (Auto) 64, Lymphocytes (%) (Auto) 21, Monocytes (%) (Auto) 13H, Eosinophils (%) (Auto) 2, Basophils (%) (Auto) 0, Neutrophils # (Auto) 3.1, Lymphocytes # (Auto) 1.0, Monocytes # (Auto) 0.6, Eosinophils # (Auto) 0.1, Basophils # (Auto) 0.0, Sodium Level 138, Potassium Level 4.1, Chloride Level 102, Carbon Dioxide Level 27, Anion Gap 9, Blood Urea Nitrogen 24H, Creatinine 1.58H, Estimat Glomerular Filtration Rate 45, BUN/Creatinine Ratio 15, Glucose Level 97, Calcium Level 8.5, Phosphorus Level 3.5, Magnesium Level 2.0 A/P: Assessment/Dx: Severe hypertension, CAD, Hypertension, Hyperlipidemia, Chest pain Plan: Aggressive hypertension management., Continue dual antiplatelet therapy for CAD, Continue statin therapy for hyperlipidemia, Chest pain: Serial negative troponin. Negative EKG. still continues to have intermittent chest pain, nuclear stress test on Tuesday. Thank you for your consultation. Please call me if you have any questions. Blaine Culver MD, FACP, FACC, FSCAI, FHRS, CCDS Interventional Cardiology Cardiac Electrophysiology Vascular Medicine and Endovascular Interventions Clinical Quality Measures Stroke: Date of last known well: Dec 28, 2018 Joe CULVER MD Dec 30, 2018 13:46
[2018-12-30] MEDS: ONDANSETRON 4 MG/2 ML (SDV) Z0FRAN IV PRN (14:20)
--- NOTE | 2019-01-01 07:28 | Clinic Account Progress/Dx ---
Clinic Account Progress/Dx DIAGNOSIS: Time Seen by Provider: 07:27 Hypertension. Renal insufficiency. Hyperlipidemia. Strokelike syndrome. Postcholecystectomy. Coronary artery disease. Migraine history. Right sided weakness. Slurred speech. History of tobaccoism. Chest pain ANDRES RABAGO DO Jan 01, 2019 07:28
== END 2018-12-30 11:50 | disposition home or self-care (01) ==
LOC: EDUNIT# 13:52 → ER 13:53 → ICU 15:48 → UNDOADMOB 15:48 → ICU 16:38 → 4TH 12-30 01:10
PROVIDERS: ADMIT Family Medicine; ATTEND Family Medicine
DX: I16.9 Hypertensive crisis, unspecified (principal); G47.33 Obstructive sleep apnea (adult) (pediatric); I25.10 Atherosclerotic heart disease of native coronary artery without angina pectoris; I25.2 Old myocardial infarction; E78.00 Pure hypercholesterolemia, unspecified; G43.909 Migraine, unspecified, not intractable, without status migrainosus; N39.0 Urinary tract infection, site not specified; K21.9 Gastro-esophageal reflux disease without esophagitis; K52.9 Noninfective gastroenteritis and colitis, unspecified; M06.9 Rheumatoid arthritis, unspecified; G89.29 Other chronic pain; M54.9 Dorsalgia, unspecified; F32.9 Major depressive disorder, single episode, unspecified; E78.5 Hyperlipidemia, unspecified; R07.9 Chest pain, unspecified; R29.810 Facial weakness; F41.9 Anxiety disorder, unspecified; Z88.0 Allergy status to penicillin; Z79.82 Long term (current) use of aspirin; Z79.02 Long term (current) use of antithrombotics/antiplatelets; Z79.899 Other long term (current) drug therapy; Z90.49 Acquired absence of other specified parts of digestive tract; Z95.5 Presence of coronary angioplasty implant and graft; Z85.46 Personal history of malignant neoplasm of prostate; Z87.891 Personal history of nicotine dependence
CPT/HCPCS: 36415; 71045; 80048; 80053; 80061; 82962; 83735; 84100; 84484; 85007; 85025; 85027; 85379; 85610; 85730; 93005; 93041; 93306; 94761; 96365; 96367; 96375; G0378

== ENCOUNTER 2019-01-08 22:18 | Emergency (ER) | payer SELFPAY ==
[~2019-01-08] VITALS: Ht 175.3 cm; Wt 83.9 kg
--- NOTE | 2019-01-08 22:29 | NUR ---
pt here with " the important one "per the important one. pt alert gcs 15. dr in [place] pt same time. pt s/p mary carmen 7-11. pt has h/o high bp . pt c/o abd pain rating 10. pt denies n/v. pt with ? diarrhea and constipation. pt denies dyspnea and no acute sighns of dyspnea noted. lungs cta bilaterally. with dr jamil assessment pt with "tender" per dr ? upper quads. done silvia pt [id number].
[2019-01-08] MEDS ORDERED: ONDANSETRON 4 MG/2 ML (SDV) Z0FRAN IVP ONE (22:45)
[2019-01-08] MEDS ORDERED: fentaNYL INJECTION 100 MCG/2 ML AMP IVP ONE (22:45)
[2019-01-08 22:51] LABS: BASOPHILS % (AUTO) 0 % (0-10); EOSINOPHILS # (AUTO) 0.3 10^3/uL (0.0-0.3); EOSINOPHILS % (AUTO) 6 % (0-10); HEMATOCRIT 33 % (40-54); HEMOGLOBIN 10.6 G/DL (13.3-17.7); LYMPHOCYTES # (AUTO) 1.2 X 10^3 (1.0-4.0); LYMPHOCYTES % (AUTO) 23 % (12-44); MEAN CORPUSCULAR HEMOGLOBIN 26 PG (25-34); MEAN CORPUSCULAR HGB CONC 32 G/DL (32-36); MEAN CORPUSCULAR VOLUME 82 FL (80-99); MEAN PLATELET VOLUME 9.1 FL (7.4-10.4); MONOCYTES # (AUTO) 0.6 X 10^3 (0.0-1.0); MONOCYTES % (AUTO) 12 % (0-12); NEUTROPHILS # (AUTO) 3.1 X 10^3 (1.8-7.8); NEUTROPHILS % (AUTO) 59 % (42-75); PLATELET COUNT 290 10^3/uL (130-400); RED CELL DISTRIBUTION WIDTH 15.6 % (10.0-14.5); WHITE BLOOD COUNT 5.3 10^3/uL (4.3-11.0)
--- NOTE | 2019-01-08 23:09 | NUR ---
ua to lab by
[2019-01-08 23:10] LABS: ALANINE AMINOTRANSFERASE 33 U/L (0-55); ALBUMIN 4.4 GM/DL (3.2-4.5); ALKALINE PHOSPHATASE 188 U/L (40-136); BILIRUBIN,TOTAL 0.2 MG/DL (0.1-1.0); BUN/CREATININE RATIO 10; CALCIUM 9.3 MG/DL (8.5-10.1); CARBON DIOXIDE 24 MMOL/L (21-32); CHLORIDE 104 MMOL/L (98-107); CREATININE SERUM 1.53 MG/DL (0.60-1.30); GFR ESTIMATED 47; GLUCOSE 103 MG/DL (70-105); LIPASE 64 U/L (8-78); POTASSIUM 3.7 MMOL/L (3.6-5.0); SODIUM 140 MMOL/L (135-145); TOTAL PROTEIN 7.9 GM/DL (6.4-8.2)
[2019-01-08 23:13] LABS: BILIRUBIN,URINE NEGATIVE (NEGATIVE); CLARITY,URINE VERY CLOUDY; COLOR,URINE YELLOW; GLUCOSE, URINE (UA) NEGATIVE (NEGATIVE); KETONES,URINE NEGATIVE (NEGATIVE); LEUKOCYTE ESTERASE ,URINE 3+ (NEGATIVE); NITRITE,URINE NEGATIVE (NEGATIVE); PH,URINE 6 (5-9); PROTEIN,URINE 3+ (NEGATIVE); UROBILINOGEN,URINE 1 MG/DL (NORMAL)
[2019-01-08 23:35] LABS: AMPHETAMINE SCREEN, URINE NEGATIVE (NEGATIVE); BARBITURATE SCREEN URINE NEGATIVE (NEGATIVE); BENZODIAZEPINES SCREEN URINE NEGATIVE (NEGATIVE); CANNABINOID SCREEN, URINE NEGATIVE (NEGATIVE); COCAINE SCREEN URINE NEGATIVE (NEGATIVE); METHADONE STAT NEGATIVE (NEGATIVE); METHAMPHETAMINE SCREEN URINE S NEGATIVE (NEGATIVE); OPIATE SCREEN URINE POSITIVE (NEGATIVE); OXYCODONE STAT NEGATIVE (NEGATIVE); PROPOXYPHENE STAT NEGATIVE (NEGATIVE); TRICYCLIC ANTIDEPRESSANTS SCRE NEGATIVE (NEGATIVE)
[2019-01-08 23:36] LABS: BACTERIA,URINE LARGE /HPF; WBC,URINE TNTC /HPF
--- NOTE | 2019-01-08 23:44 | NUR ---
pt remains alert gcs 15. important one remains in the room. abd pain rating 10. also c/o nausea and no v/d noted in er visit thus far. no acute sighns of dyspnea noted. bp machine is 201/116 ausc hr 68 reg ausc resp 12 normal recheck temp 97.9 p ox r/a is 95.
[2019-01-08] MEDS ORDERED: LIDOCAINE 2% VISCOUS 15 ML UDC PO ONE (23:45)
[2019-01-08] MEDS ORDERED: FAMOTIDINE 20MG/2ML IV (PEPCID) IVP ONE (23:45)
[2019-01-08] MEDS ORDERED: ANTACID SUSP 30 ML UDC (MYLANTA) PO ONE (23:45)
--- NOTE | 2019-01-08 23:52 | ED Abdominal Pain ---
General Chief Complaint: Abdominal/GI Problems Stated Complaint: HYPERTENSION,ABD PAIN Nursing Triage Note: abd pain and high bp Sepsis Screen: No Definite Risk Source of Information: Patient, Old Records Exam Limitations: No Limitations History of Present Illness Date Seen by Provider: Jan 08, 2019 Time Seen by Provider: 22:23 Initial Comments This 58-year-old man presents to the emergency room with intense upper abdominal pain that developed shortly after he took a bike ride somewhere around 18:00. Patient had a cholecystectomy performed by Dr. Biswas on December 28. He was then admitted for observation due to extreme hypertension and stroke like symptoms. Patient has a history of atypical migraines involving stroke like symptoms and severe hypertension. He has required migraine cocktails by IV route in the past. He has marketed hypertension on arrival today as well. He has no neurologic deficits at this time. He denies any drug or alcohol use. He was recovering well until he took the bike ride today. Since surgery he has had difficulty passing bowel movements and has small amounts of runny stool when he does pass a bowel movement. Allergies and Home Medications Allergies Coded Allergies: penicillin G (Verified Allergy, Severe, SWELLING, 12/22/18) Home Medications Amlodipine Besylate 10 Mg Tablet, 10 MG PO DAILY, (Reported) Aspirin 81 Mg Tablet.dr, 81 MG PO HS, (Reported) Atorvastatin Calcium 10 Mg Tablet, 10 MG PO HS, (Reported) Bupropion HCl 150 Mg Tablet.er, 150 MG PO BID, (Reported) LAST FILLED #180 08-09-18 Buspirone HCl 15 Mg Tablet, 15 MG PO TID, (Reported) Carvedilol 6.25 Mg Tablet, 6.25 MG PO BID, (Reported) Clonidine HCl 0.1 Mg Tablet, 0.2 MG PO TID, (Reported) TAKES 2 (0.1MG) TABLETS Clopidogrel Bisulfate 75 Mg Tablet, 75 MG PO HS, (Reported) Docusate Sodium 100 Mg Capsule, 100 MG PO BID Prescribed by: MERLIN BISWAS on 12/28/18 1051 Hydrocodone Bit/Acetaminophen 1 Tab Tab, 1-2 TAB PO Q6H PRN for PAIN-MODERATE Prescribed by: MERLIN BISWAS on 12/28/18 1051 Losartan Potassium 100 Mg Tablet, 100 MG PO HS, (Reported) LAST FILLED #90 08-09-18 Nitrofurantoin Monohyd/M-Cryst 100 Mg Capsule, 1 TAB PO BID Prescribed by: BILL HUERTA on 01/09/19 0147 Nitroglycerin 0.4 Mg Tab.subl, 0.4 MG SL UD PRN for CHEST PAIN, (Reported) PLACE 1 TAB UNDER TONGUE NEEDED FOR CHEST PAIN; IF PAIN REMAINS AFTER 5 HI NUTES, CALL 911 Yolyn-3 Fatty Acids/Fish Oil 1 Each Capsule, 1,000 MG PO TID, (Reported) Pantoprazole Sodium 40 Mg Tablet.dr, 40 MG PO BID, (Reported) Sertraline HCl 100 Mg Tablet, 100 MG PO DAILY, (Reported) TAKES ALONG WITH 25MG TABLET Sertraline HCl 25 Mg Tablet, 25 MG PO DAILY, (Reported) TAKES ALONG WITH 100MG TABLET Sucralfate 1 Gm Tablet, 1 GM PO QID Dissolve in 5-10 mL water and drink as a slurry 30 minutes before eating or drinking and before bed Prescribed by: BILL HUERTA on 01/09/19 0144 Patient Home Medication List Home Medication List Reviewed: Yes Review of Systems Review of Systems Constitutional: no symptoms reported EENTM: No Symptoms Reported Respiratory: No Symptoms Reported Cardiovascular: See HPI Gastrointestinal: See HPI Genitourinary: No Symptoms Reported Musculoskeletal: no symptoms reported Skin: no symptoms reported Psychiatric/Neurological: No Symptoms Reported Endocrine: No Symptoms Reported Hematologic/Lymphatic: No Symptoms Reported Past Djkxxqg-Eerwla-Sjiutz Hx Past Med/Social Hx: Reviewed and Corrections made Patient Social History Alcohol Use: Denies Use Alcohol Beverage of Choice: Beer Recreational Drug Use: No Drug of Choice: + IV METH USE, ALSO THC, WELL RX DRUGS Smoking Status: Never a Smoker Type Used: Cigarettes Former Smoker, Quit: Aug 24, 2016 2nd Hand Smoke Exposure: Yes Recent Foreign Travel: No Contact w/Someone Who Travel: No Recent Infectious Disease Expo: No Recent Hopitalizations: No Physical Abuse: No Sexual Abuse: No Immunizations Up To Date Tetanus Booster (TDap): Less than 5yrs PED Vaccines UTD: No Date of Influenza Vaccine: Jul 28, 2017 Seasonal Allergies Seasonal Allergies: No Past Medical History Surgeries: Yes Bladder Surgery, Cardiac, Coronary Stent, Gallbladder, Orthopedic, Prostatectomy Respiratory: Yes Sleep Apnea Currently Using CPAP: No Currently Using BIPAP: No Cardiac: Yes Coronary Artery Disease, Deep Vein Thrombosis, Heart Attack, High Cholesterol, Hypertension Neurological: Yes Headaches /Migraines (complex atypical migraine presentations with unilateral stroke like presentations and extreme hypertension), TIA Reproductive Disorders: No Sexually Transmitted Disease: No HIV/AIDS: No Genitourinary: Yes Kidney Infection, Prostate Problems, Bladder Infection, Kidney Stones, UTI- Chronic Gastrointestinal: Yes Gastroesophageal Reflux, Chronic Diarrhea, Hiatal Hernia, Ulcer, Gall Bladder Disease Musculoskeletal: Yes Arthritis, Rheumatoid Arthritis, Back Injury, Chronic Back Pain, Fractures Endocrine: No (BUT HAS HAD HYPERGLYCEMIA AT TIMES) HEENT: Yes Eye Injury Loss of Vision: Denies Hearing Impairment: Denies Cancer: Yes Prostate Did You Recieve Any Treatments: Yes What Type of Treatment Did You: Radiation Psychosocial: Yes (History of illicit and prescription drug abuse) Sleep Difficulties, Anxiety, Depression Integumentary: No Blood Disorders: No Adverse Reaction/Blood Tranf: No (N/A) Family Medical History Arthritis 19 MOTHER DOUGH MIXER G8 SISTER FH: COPD (chronic obstructive pulmonary disease) Hypercholesterolemia 19 MOTHER Hypertension 19 MOTHER Heart Disease, Hypertension Physical Exam Vital Signs Vital Signs - First Documented 01/08/19 23:03 Temp 98.7 Pulse 76 Resp 20 B/P (MAP) 247/121 (163) Pulse Ox 98 O2 Delivery Room Air Capillary Refill : Less Than 3 Seconds Height/Weight/BMI Height: 5'9.00" Weight: 185lbs. 3.0oz. 83.152007fh; 28.1 BMI Method:Stated General Appearance: WD/WN, moderate distress HEENT: PERRL/EOMI, normal ENT inspection Neck: normal inspection Respiratory: lungs clear, normal breath sounds, no respiratory distress, no accessory muscle use Cardiovascular: regular rate, rhythm, no edema, no murmur Gastrointestinal: normal bowel sounds, soft, tenderness (significant tenderness across the upper abdomen) Extremities: normal inspection, no pedal edema Neurologic/Psychiatric: dairy helper II-XII nml as tested, no motor/sensory deficits, alert, normal mood/affect, oriented x 3 Skin: normal color, warm/dry Progress/Results/Core Measures Results/Orders Lab Results Laboratory Tests Test 01/08/19 22:44 01/08/19 23:08 Range/Units White Blood Count 5.3 4.3-11.0 10^3/uL Red Blood Count 4.10 L 4.35-5.85 10^6/uL Hemoglobin 10.6 L 13.3-17.7 G/DL Hematocrit 33 L 40-54 % Mean Corpuscular Volume 82 80-99 FL Mean Corpuscular Hemoglobin 26 25-34 PG Mean Corpuscular Hemoglobin Concent 32 32-36 G/DL Red Cell Distribution Width 15.6 H 10.0-14.5 % Platelet Count 290 130-400 10^3/uL Mean Platelet Volume 9.1 7.4-10.4 FL Neutrophils (%) (Auto) 59 42-75 % Lymphocytes (%) (Auto) 23 12-44 % Monocytes (%) (Auto) 12 0-12 % Eosinophils (%) (Auto) 6 0-10 % Basophils (%) (Auto) 0 0-10 % Neutrophils # (Auto) 3.1 1.8-7.8 X 10^3 Lymphocytes # (Auto) 1.2 1.0-4.0 X 10^3 Monocytes # (Auto) 0.6 0.0-1.0 X 10^3 Eosinophils # (Auto) 0.3 0.0-0.3 10^3/uL Basophils # (Auto) 0.0 0.0-0.1 10^3/uL Sodium Level 140 135-145 MMOL/L Potassium Level 3.7 3.6-5.0 MMOL/L Chloride Level 104 98-107 MMOL/L Carbon Dioxide Level 24 21-32 MMOL/L Anion Gap 12 5-14 MMOL/L Blood Urea Nitrogen 15 7-18 MG/DL Creatinine 1.53 H 0.60-1.30 MG/DL Estimat Glomerular Filtration Rate 47 BUN/Creatinine Ratio 10 Glucose Level 103 70-105 MG/DL Calcium Level 9.3 8.5-10.1 MG/DL Corrected Calcium 9.0 8.5-10.1 MG/DL Total Bilirubin 0.2 0.1-1.0 MG/DL Aspartate Amino Transf (AST/SGOT) 26 5-34 U/L Alanine Aminotransferase (ALT/SGPT) 33 0-55 U/L Alkaline Phosphatase 188 H 40-136 U/L C-Reactive Protein High Sensitivity 0.58 H 0.00-0.50 MG/DL Total Protein 7.9 6.4-8.2 GM/DL Albumin 4.4 3.2-4.5 GM/DL Lipase 64 8-78 U/L Serum Alcohol < 10 <10 MG/DL Urine Color YELLOW Urine Clarity VERY CLOUDY H Urine pH 6 5-9 Urine Specific Valentine 1.020 1.016-1.022 Urine Protein 3+ H NEGATIVE Urine Glucose (UA) NEGATIVE NEGATIVE Urine Ketones NEGATIVE NEGATIVE Urine Nitrite NEGATIVE NEGATIVE Urine Bilirubin NEGATIVE NEGATIVE Urine Urobilinogen 1 NORMAL MG/DL Urine Leukocyte Esterase 3+ H NEGATIVE Urine RBC (Auto) 5+ H NEGATIVE Urine RBC NONE /HPF Urine WBC TNTC H /HPF Urine Squamous Epithelial Cells NONE /HPF Urine Crystals NONE /LPF Urine Bacteria LARGE H /HPF Urine Casts NONE /LPF Urine Mucus NEGATIVE /LPF Urine Culture Indicated YES Urine Opiates Screen POSITIVE H NEGATIVE Urine Oxycodone Screen NEGATIVE NEGATIVE Urine Methadone Screen NEGATIVE NEGATIVE Urine Propoxyphene Screen NEGATIVE NEGATIVE Urine Barbiturates Screen NEGATIVE NEGATIVE Ur Tricyclic Antidepressants Screen NEGATIVE NEGATIVE Urine Phencyclidine Screen NEGATIVE NEGATIVE Urine Amphetamines Screen NEGATIVE NEGATIVE Urine Methamphetamines Screen NEGATIVE NEGATIVE Urine Benzodiazepines Screen NEGATIVE NEGATIVE Urine Cocaine Screen NEGATIVE NEGATIVE Urine Cannabinoids Screen NEGATIVE NEGATIVE My Orders Orders - BILL APONTE MD Cbc With Automated Diff (01/08/19 22:34) Comprehensive Metabolic Panel (01/08/19 22:34) Hs C Reactive Protein (01/08/19 22:34) Lipase (01/08/19 22:34) Ua Culture If Indicated (01/08/19 22:34) Ed Iv/Invasive Line Start (01/08/19 22:34) Fentanyl Injection (Sublimaze Injection (01/08/19 22:45) Ondansetron Injection (Zofran Injectio (01/08/19 22:45) Alcohol (01/08/19 22:36) Drug Screen Stat (Urine) (01/08/19 22:36) Urine Culture (01/08/19 23:08) Famotidine Injection (Pepcid Injection) (01/08/19 23:45) Lidocaine 2% Viscous 15 Ml (Xylocaine Vi (01/08/19 23:45) Antacid Suspension (Mylanta Suspension (01/08/19 23:45) Levofloxacin 500 Mg/100 Ml Iv (Levaquin (01/09/19 00:00) Abdomen, Flat & Upright/Decub (01/09/19 00:01) Diphenhydramine Injection (Benadryl Inje (01/09/19 01:00) Nitrofurantoin Capsule,Macro (Macrobid C (01/09/19 01:00) Medications Given in ED Current Medications Medications Dose Ordered Sig/Mckenzie Route Start Time Stop Time Status Last Admin Dose Admin Al Hydrox/Mg Hydrox/Simethicone 30 ml ONCE ONCE PO 01/08/19 23:45 01/08/19 23:46 DC 01/08/19 23:50 30 ML Diphenhydramine HCl 25 mg ONCE ONCE IVP 01/09/19 01:00 01/09/19 01:01 DC 01/09/19 01:08 25 MG Famotidine 20 mg ONCE ONCE IVP 01/08/19 23:45 01/08/19 23:46 DC 01/08/19 23:55 20 MG Fentanyl Citrate 100 mcg ONCE ONCE IVP 01/08/19 22:45 01/08/19 22:46 DC 01/08/19 22:58 100 MCG Levofloxacin/ Dextrose 100 ml @ 100 mls/hr ONCE ONCE IV 01/09/19 00:00 01/09/19 00:59 DC 01/09/19 00:25 100 MLS/HR Lidocaine HCl 15 ml ONCE ONCE PO 01/08/19 23:45 01/08/19 23:46 DC 01/08/19 23:50 15 ML Nitrofurantoin Macrocrystals 100 mg ONCE ONCE PO 01/09/19 01:00 01/09/19 01:01 DC 01/09/19 01:08 100 MG Ondansetron HCl 4 mg ONCE ONCE IVP 01/08/19 22:45 01/08/19 22:46 DC 01/08/19 22:52 4 MG Vital Signs/I&O 01/08/19 01/09/19 23:03 02:01 Temp 98.7 98.7 Pulse 76 66 Resp 20 18 B/P (MAP) 247/121 (163) 193/108 (136) Pulse Ox 98 98 O2 Delivery Room Air Blood Pressure Mean: 163 Progress Progress Note #1: Time: 23:50 Progress Note Pain was initially treated with fentanyl 100 g. This improved his pain and blood pressure. Both pain and blood pressure now rebounding. Labs have been reviewed. GI cocktail and Pepcid are being trialed. If this does not resolve his pain we will proceed with CT scan. Levaquin is being ordered for treatment of urinary tract infection based on prior cultures. Progress Note #2: Time: 23:56 Progress Note Patient had a significant immediate response to the GI cocktail. Pain decreased to 4/10. I will obtain a KUB and upright abdominal film to ensure there is no evidence of bowel obstruction or constipation. Progress Note #3: Progress Note Urinary tract infection was treated with Levaquin. Levaquin caused itching and rash at the IV site. It was discontinued and Benadryl was administered. Nitrofurantoin was given as an alternative. Levaquin was added to the allergy list. Patient continued to have hypertension. He was instructed to take an additional clonidine upon returning home. See discharge instructions. Departure Impression Primary Impression: Epigastric pain Additional Impressions: Episode of hypertension Urinary tract infection Qualified Codes: N39.0 - Urinary tract infection, site not specified Disposition: HOME, SELF-CARE Condition: Improved Departure-Patient Inst. Decision time for Depature: 01:41 Referrals: ANDRES RABAGO DO (PCP/Family) Primary Care Physician Patient Instructions: Acute Abdomen (Belly Pain), Adult (DC) Add. Discharge Instructions: Please follow-up with Dr. Biswas tomorrow. Please contact his office as soon as they opened. Based on your pain and response to GI cocktail, I would suggest discussing upper endoscopy (stomach scoping) with Dr. Biswas. When you return home, please take an additional clonidine 0.[address] Rabago's office for a blood pressure check tomorrow. Start Carafate as prescribed tomorrow. Avoid any strenuous activities until cleared by Dr. Biswas. Avoid the following: Eating large meals, eating close to bedtime, caffeine, carbonation, chocolate, citrus fruits and juices, alcohol, tomato products, mints, spicy foods, NSAID medications such as ibuprofen or naproxen, fatty or greasy foods, or anything else you know irritates your stomach. Return to care if you have worsening symptoms. Continue Protonix as previously prescribed. You may continue with hydrocodone as prescribed for pain. All discharge instructions reviewed with patient and/or family. Voiced understanding. Scripts Nitrofurantoin Monohyd/M-Cryst (Macrobid 100 mg Capsule) 100 Mg Capsule 1 TAB PO BID, #20 CAP Prov: BILL APONTE MD 01/09/19 Sucralfate (Carafate) 1 Gm Tablet 1 GM PO QID, #120 TAB Dissolve in 5-10 mL water and drink as a slurry 30 minutes before eating or drinking and before bed Prov: BILL APONTE MD 01/09/19 Copy Copies To 1: MERLIN BISWAS DO Copies To 2: ANDRES RABAGO JOSHUA T MD Jan 08, 2019 23:52
--- NOTE | 2019-01-08 23:58 | NUR ---
approx 5 min after gi cocktail and before pepcid completed. pt pain rating 4.
[2019-01-09] MEDS ORDERED: LEVOFLOXACIN 500 MG/100 ML IV 100 ML IV ONE
--- NOTE | 2019-01-09 00:51 | NUR ---
told me earlier pt c/o itching at elbow area same side levaquin going but with no redness. told me to keep eye on it. i checked this charted time. pt has red streak along the vein of iv site traveling up the vein to mid right f/a. iv site in right wrist. i turned off levaquin and notified the
[2019-01-09] MEDS ORDERED: diphenhydrAMINE 50 MG/ML INJ (BENADRYL) IVP ONE (01:00)
[2019-01-09] MEDS ORDERED: NITROFURANTOIN 100 MG (MACROBID) CAPSULE PO ONE (01:00)
--- NOTE | 2019-01-09 01:10 | NUR ---
report to gomez slade.
[2019-01-09] MEDS ORDERED: SUCR1TAB36 PO (01:44)
[2019-01-09] MEDS ORDERED: NITR-65 PO (01:47)
[2019-01-09 02:01] VITALS: BP 193/108
--- NOTE | 2019-01-09 06:42 | Diagnostic Imaging Report ---
EXAM: ABDOMEN, FLAT UPRIGHT/DECUB INDICATION: Abdominal pain. Trauma. COMPARISON: CT abdomen and pelvis with IV contrast 10/05/2018. FINDINGS: Nonspecific bowel gas pattern. No free intraperitoneal air. Cholecystectomy clips. Osseous structures are intact. Fiducial markers in the pelvis. IMPRESSION: No acute radiographic findings in the abdomen. Dictated by: Dictated on workstation # [id number]
== END 2019-01-09 02:02 | disposition home or self-care (01) ==
LOC: ER 22:18
DX: N39.0 Urinary tract infection, site not specified (principal); I10 Essential (primary) hypertension; F15.10 Other stimulant abuse, uncomplicated; G43.909 Migraine, unspecified, not intractable, without status migrainosus; G47.30 Sleep apnea, unspecified; E78.00 Pure hypercholesterolemia, unspecified; I25.2 Old myocardial infarction; I25.10 Atherosclerotic heart disease of native coronary artery without angina pectoris; K21.9 Gastro-esophageal reflux disease without esophagitis; M06.9 Rheumatoid arthritis, unspecified; F41.9 Anxiety disorder, unspecified; F32.9 Major depressive disorder, single episode, unspecified; Z87.442 Personal history of urinary calculi; Z85.46 Personal history of malignant neoplasm of prostate; Z87.440 Personal history of urinary (tract) infections; Z86.73 Personal history of transient ischemic attack (TIA), and cerebral infarction without residual deficits; Z86.718 Personal history of other venous thrombosis and embolism; Z90.49 Acquired absence of other specified parts of digestive tract; Z88.0 Allergy status to penicillin; Z79.82 Long term (current) use of aspirin; Z79.02 Long term (current) use of antithrombotics/antiplatelets; Z87.891 Personal history of nicotine dependence; Z95.5 Presence of coronary angioplasty implant and graft; Z82.49 Family history of ischemic heart disease and other diseases of the circulatory system
CPT/HCPCS: 36415; 74019; 80053; 80306; 80320; 81000; 83690; 85025; 86141; 87077; 87088; 87186; 96365; 96375

== ENCOUNTER 2019-01-13 17:31 | Emergency (ER) | payer SELFPAY ==
[~2019-01-13] VITALS: Ht 175.3 cm; Wt 84.0 kg
[~2019-01-13 17:31] MED LIST changes: +SUCR1TAB36 PO
[2019-01-13] MEDS ORDERED: NITROGLYCERIN 2% OINT 1 GM UNIT DOSE PACKET TOP STA (18:05)
[2019-01-13] MEDS ORDERED: ASPIRIN 81 MG CHEW (CHILDREN'S ASA) PO ONE (18:15)
[2019-01-13 18:16] LABS: BASOPHILS % (AUTO) 1 % (0-10); EOSINOPHILS # (AUTO) 0.3 10^3/uL (0.0-0.3); EOSINOPHILS % (AUTO) 7 % (0-10); HEMATOCRIT 33 % (40-54); HEMOGLOBIN 10.3 G/DL (13.3-17.7); LYMPHOCYTES # (AUTO) 0.6 X 10^3 (1.0-4.0); LYMPHOCYTES % (AUTO) 18 % (12-44); MEAN CORPUSCULAR HEMOGLOBIN 26 PG (25-34); MEAN CORPUSCULAR HGB CONC 32 G/DL (32-36); MEAN CORPUSCULAR VOLUME 82 FL (80-99); MEAN PLATELET VOLUME 9.3 FL (7.4-10.4); MONOCYTES # (AUTO) 0.3 X 10^3 (0.0-1.0); MONOCYTES % (AUTO) 10 % (0-12); NEUTROPHILS # (AUTO) 2.2 X 10^3 (1.8-7.8); NEUTROPHILS % (AUTO) 64 % (42-75); PLATELET COUNT 272 10^3/uL (130-400); RED CELL DISTRIBUTION WIDTH 15.3 % (10.0-14.5); WHITE BLOOD COUNT 3.4 10^3/uL (4.3-11.0)
[2019-01-13 18:30] LABS: INR 0.9 (0.8-1.4); PROTHROMBIN TIME PATIENT 12.5 SEC (12.2-14.7)
[2019-01-13 18:40] LABS: ALANINE AMINOTRANSFERASE 19 U/L (0-55); ALBUMIN 4.2 GM/DL (3.2-4.5); ALKALINE PHOSPHATASE 176 U/L (40-136); BILIRUBIN,TOTAL 0.2 MG/DL (0.1-1.0); BUN/CREATININE RATIO 14; CALCIUM 9.5 MG/DL (8.5-10.1); CARBON DIOXIDE 23 MMOL/L (21-32); CHLORIDE 104 MMOL/L (98-107); CREATININE SERUM 1.44 MG/DL (0.60-1.30); GFR ESTIMATED 51; GLUCOSE 118 MG/DL (70-105); MAGNESIUM 1.8 MG/DL (1.8-2.4); POTASSIUM 3.9 MMOL/L (3.6-5.0); SODIUM 140 MMOL/L (135-145); TOTAL PROTEIN 7.8 GM/DL (6.4-8.2)
--- NOTE | 2019-01-13 18:50 | Diagnostic Imaging Report ---
INDICATION: Hypertension head pain, dull chest pain. EXAMINATION: Single view of the chest was obtained. FINDINGS: The lungs are clear. The heart and vessels are normal. No effusion or pneumothorax. IMPRESSION: No acute appearing abnormality. Dictated by: Dictated on workstation # [id number]
--- OUTSIDE RECORDS SUMMARY | 2019-01-13 19:12 | XMS REPORT | Encounter Summary ---
Author Author [facility] Organization [facility] Address Unknown Phone Unavailable Care Team Providers Care Chief Business Development Officer Name Role Phone Leroy Lao MD [address] Hernandes DO PCP Reason for Visit * Reason Comments Medication Refill Encounter Details Care Team Description Date Type Department Sarah Camara PA-C [address] [facility] [place], [place] [id number] Medication Refill 12/19/[address] [facility] [address] [facility] [place] [address] Social History Date Tobacco Use Types Packs/Day [...] Visit Diagnoses Diagnosis Coronary artery disease of [place] artery of [place] heart with stable angina pectoris (HCC) Essential hypertension Unspecified essential hypertension Mixed hyperlipidemia Gastroesophageal reflux disease, esophagitis presence not specified Ischemic chest pain Chest pain, unspecified Tobacco abuse Tobacco use disorder History of noncompliance with medical treatment Personal history of noncompliance with medical treatment, presenting hazards to health documented in this encounter
--- OUTSIDE RECORDS SUMMARY | 2019-01-13 19:12 | XMS REPORT | Clinical Summary ---
Author Author [facility] Organization [facility] Address Unknown Phone Unavailable Care Team Providers Care Swahili Teacher Name Role Phone Leroy Lao MD [address] Hernandes DO PCP Source Comments Some departments are not documenting in the electronic medical record. If you d o not see the information that you expected, contact Release of Information in [facility] goCatch Information Management department at [phone] for further assistan ce in locating additional records.[facility] Allergies Comments Active Allergy Reactions Severity [...] 7 Coronary artery disease every 5 of [place] artery of minutes as [place] heart with stable needed for angina pectoris [...] Unstable angina 08/13/2016 Coronary artery disease of [place] artery of [place] heart with stable angina 08/09/2016 pectoris Overview: 07/29/16: heart cath ([place] [place], [place]) - total occlusion of the right [...] Comments Vital Sign 150/72 05/16/2017 3:11 PM EXPLOSIVES HANDLER Blood Pressure 73 05/16/2017 3:11 PM EXPLOSIVES HANDLER Pulse 36.8 C (98.2 F) 03/06/2017 1:42 PM CDT Temperature - - Respiratory Rate 96% 03/06/2017 1:42 PM CDT Oxygen Saturation - - Inhaled Oxygen Concentration 82.6 kg (182 lb) 05/16/2017 3:11 PM EXPLOSIVES HANDLER Weight 175.3 cm (5' 9") 05/16/2017 3:11 PM EXPLOSIVES HANDLER Height 26.88 05/16/2017 3:11 PM EXPLOSIVES HANDLER Body Mass Index Plan of Treatment Health Maintenance Due Date Last Done Comments HEPATITIS C SCREENING 1961 PHYSICAL (COMPREHENSIVE) 1968 EXAM HIV SCREENING 1976 DTAP/TDAP VACCINES (1 - 1979 Tdap) COLORECTAL CANCER 2011 SCREENING SHINGLES RECOMBINANT 2011 VACCINE (1 of 2) INFLUENZA VACCINE 03/20/2019 Results Not on filefrom Last 3 Months Advance Directives Patient Environmental Consultant Explanation Type Date Recorded Advance 08/09/2016 7:15 [...]
--- OUTSIDE RECORDS SUMMARY | 2019-01-13 19:12 | XMS REPORT | Encounter Summary ---
Author Author [facility] Organization [facility] Address Unknown Phone Unavailable Care Team Providers Care Personnel Adviser Name Role Phone Leroy Lao MD [address] Hernandes DO PCP Reason for Visit * Reason Comments Medication Refill Encounter Details Care Team Description Date Type Department David Simms MD [address] [id number] Medication Refill 07/31/2018 Refill [facility] [address] [address] Social History Date Tobacco Use Types Packs/Day [...]
[2019-01-13] MEDS ORDERED: hydrALAZINE (APESOLINE) 20 MG/ML VIAL IV ONE (19:15)
[2019-01-13] MEDS ORDERED: KETOROLAC 30 MG/ML VIAL IVP ONE (19:45)
[2019-01-13] MEDS ORDERED: HYDR-3922 PO (20:01)
--- NOTE | 2019-01-13 20:01 | ED Cardiac General ---
History of Present Illness General Chief Complaint: Cardiac/General Problems Stated Complaint: ELEVATED BP Nursing Triage Note: PT STATES ELEVATED BLOOD PRESSURE OF 244/128 CHECKED AT HOME 10 MINUTES PRIOR TO ARRIVAL. PT STATES HEADACHE AND DULL PAIN IN CHEST. PT STATES TAKING PRESCRIPTIONS PRESCRIBED. Allergies and Home Medications Allergies Coded Allergies: penicillin G (Verified Allergy, Severe, SWELLING, 12/22/18) levofloxacin (Verified Allergy, Mild, Rash, 01/09/19) Home Medications Amlodipine Besylate 10 Mg Tablet, 10 MG PO DAILY, (Reported) Aspirin 81 Mg Tablet.dr, 81 MG PO HS, (Reported) Atorvastatin Calcium 10 Mg Tablet, 10 MG PO HS, (Reported) Bupropion HCl 150 Mg Tablet.er, 150 MG PO BID, (Reported) LAST FILLED #180 08-09-18 Buspirone HCl 15 Mg Tablet, 15 MG PO TID, (Reported) Carvedilol 6.25 Mg Tablet, 6.25 MG PO BID, (Reported) Clonidine HCl 0.1 Mg Tablet, 0.2 MG PO TID, (Reported) TAKES 2 (0.1MG) TABLETS Clopidogrel Bisulfate 75 Mg Tablet, 75 MG PO HS, (Reported) Docusate Sodium 100 Mg Capsule, 100 MG PO BID Prescribed by: MERLIN BISWAS on 12/28/18 1051 Hydrocodone Bit/Acetaminophen 1 Tab Tab, 1-2 TAB PO Q6H PRN for PAIN-MODERATE Prescribed by: MERLIN BISWAS on 12/28/18 1051 Losartan Potassium 100 Mg Tablet, 100 MG PO HS, (Reported) LAST FILLED #90 08-09-18 Nitrofurantoin Monohyd/M-Cryst 100 Mg Capsule, 1 TAB PO BID Prescribed by: BILL HUERTA on 01/09/19 0147 Nitroglycerin 0.4 Mg Tab.subl, 0.4 MG SL UD PRN for CHEST PAIN, (Reported) PLACE 1 TAB UNDER TONGUE NEEDED FOR CHEST PAIN; IF PAIN REMAINS AFTER 5 MINUTES, CALL 911 [place]-3 Fatty Acids/Fish Oil 1 Each Capsule, 1,000 MG PO TID, (Reported) Pantoprazole Sodium 40 Mg Tablet.dr, 40 MG PO BID, (Reported) Sertraline HCl 100 Mg Tablet, 100 MG PO DAILY, (Reported) TAKES ALONG WITH 25MG TABLET Sertraline HCl 25 Mg Tablet, 25 MG PO DAILY, (Reported) TAKES ALONG WITH 100MG TABLET Sucralfate 1 Gm Tablet, 1 GM PO QID Dissolve in 5-10 mL water and drink as a slurry 30 minutes before eating or drinking and before bed Prescribed by: BILL HUERTA on 01/09/19 0144 Past Fnlnkih-Znjpcr-Ryxkia Hx Patient Social History Alcohol Use: Denies Use Number of Drinks Today: AA Alcohol Beverage of Choice: Beer Recreational Drug Use: No Drug of Choice: + IV METH USE, ALSO THC, WELL RX DRUGS Smoking Status: Former Smoker Type Used: Cigarettes Former Smoker, Quit: Aug 24, 2016 2nd Hand Smoke Exposure: Yes Recent Foreign Travel: No Contact w/Someone Who Travel: No Recent Infectious Disease Expo: No Recent Hopitalizations: No Physical Abuse: No Sexual Abuse: No Mistreated: No Fear: No Immunizations Up To Date Tetanus Booster (TDap): Less than 5yrs PED Vaccines UTD: No Date of Influenza Vaccine: Jul 28, 2017 Seasonal Allergies Seasonal Allergies: No Past Medical History Surgeries: Yes Bladder Surgery, Cardiac, Coronary Stent, Gallbladder, Orthopedic, Prostatectomy Respiratory: Yes Sleep Apnea Currently Using CPAP: No Currently Using BIPAP: No Cardiac: Yes Coronary Artery Disease, Deep Vein Thrombosis, Heart Attack, High Cholesterol, Hypertension Neurological: Yes Headaches /Migraines, TIA Reproductive Disorders: No Sexually Transmitted Disease: No HIV/AIDS: No Genitourinary: Yes Kidney Infection, Prostate Problems, Bladder Infection, Kidney Stones, UTI- Chronic Gastrointestinal: Yes Gastroesophageal Reflux, Chronic Diarrhea, Hiatal Hernia, Ulcer, Gall Bladder Disease Musculoskeletal: Yes Arthritis, Rheumatoid Arthritis, Back Injury, Chronic Back Pain, Fractures Endocrine: No (BUT HAS HAD HYPERGLYCEMIA AT TIMES) HEENT: Yes Eye Injury Loss of Vision: Denies Hearing Impairment: Denies Cancer: Yes Prostate Did You Recieve Any Treatments: Yes What Type of Treatment Did You: Radiation Psychosocial: Yes (History of illicit and prescription drug abuse) Sleep Difficulties, Anxiety, Depression Integumentary: No Blood Disorders: No Adverse Reaction/Blood Tranf: No (N/A) Family Medical History Arthritis 19 MOTHER EXTENSION EDGER G8 SISTER FH: COPD (chronic obstructive pulmonary disease) Hypercholesterolemia 19 MOTHER Hypertension 19 MOTHER Heart Disease, Hypertension Physical Exam Vital Signs Vital Signs - First Documented 01/13/19 18:00 Temp 97.6 Pulse 77 Resp 18 B/P (MAP) 190/93 (125) O2 Delivery Room Air Capillary Refill : Less Than 3 Seconds Height, Weight, BMI Height: 5'9.00" Weight: 185lbs. 3.0oz. 83.489851jc; 28.1 BMI Method:Stated Progress/Results/Core Measures Results/Orders Lab Results Laboratory Tests Test 01/13/19 18:10 Range/Units White Blood Count 3.4 L 4.3-11.0 10^3/uL Red Blood Count 4.00 L 4.35-5.85 10^6/uL Hemoglobin 10.3 L 13.3-17.7 G/DL Hematocrit 33 L 40-54 % Mean Corpuscular Volume 82 80-99 FL Mean Corpuscular Hemoglobin 26 25-34 PG Mean Corpuscular Hemoglobin Concent 32 32-36 G/DL Red Cell Distribution Width 15.3 H 10.0-14.5 % Platelet Count 272 130-400 10^3/uL Mean Platelet Volume 9.3 7.4-10.4 FL Neutrophils (%) (Auto) 64 42-75 % Lymphocytes (%) (Auto) 18 12-44 % Monocytes (%) (Auto) 10 0-12 % Eosinophils (%) (Auto) 7 0-10 % Basophils (%) (Auto) 1 0-10 % Neutrophils # (Auto) 2.2 1.8-7.8 X 10^3 Lymphocytes # (Auto) 0.6 L 1.0-4.0 X 10^3 Monocytes # (Auto) 0.3 0.0-1.0 X 10^3 Eosinophils # (Auto) 0.3 0.0-0.3 10^3/uL Basophils # (Auto) 0.0 0.0-0.1 10^3/uL Prothrombin Time 12.5 12.2-14.7 SEC INR Comment 0.9 0.8-1.4 Activated Partial Thromboplast Time 27 24-35 SEC Sodium Level 140 135-145 MMOL/L Potassium Level 3.9 3.6-5.0 MMOL/L Chloride Level 104 98-107 MMOL/L Carbon Dioxide Level 23 21-32 MMOL/L Anion Gap 13 5-14 MMOL/L Blood Urea Nitrogen 20 H 7-18 MG/DL Creatinine 1.44 H 0.60-1.30 MG/DL Estimat Glomerular Filtration Rate 51 BUN/Creatinine Ratio 14 Glucose Level 118 H 70-105 MG/DL Calcium Level 9.5 8.5-10.1 MG/DL Corrected Calcium 9.3 8.5-10.1 MG/DL Magnesium Level 1.8 1.8-2.4 MG/DL Total Bilirubin 0.2 0.1-1.0 MG/DL Aspartate Amino Transf (AST/SGOT) 19 5-34 U/L Alanine Aminotransferase (ALT/SGPT) 19 0-55 U/L Alkaline Phosphatase 176 H 40-136 U/L Myoglobin 41.5 10.0-92.0 NG/ML Troponin I < 0.028 <0.028 NG/ML B-Type Natriuretic Peptide 86.3 <100.0 PG/ML Total Protein 7.8 6.4-8.2 GM/DL Albumin 4.2 3.2-4.5 GM/DL My Orders Orders - MORGAN LARES DO Cbc With Automated Diff (01/13/19 18:05) Magnesium (01/13/19 18:05) Chest 1 View, Ap/Pa Only (01/13/19 18:05) Ekg Tracing (01/13/19 18:05) Cardiac Profile 1 (01/13/19 18:05) Comprehensive Metabolic Panel (01/13/19 18:05) Myoglobin Serum (01/13/19 18:05) Protime With Inr (01/13/19 18:05) Partial Thromboplastin Time (01/13/19 18:05) Monitor-Rhythm Ecg Trace Only (01/13/19 18:05) Lipid Panel (01/14/19 06:00) Ed Iv/Invasive Line Start (01/13/19 18:05) BNP (01/13/19 18:05) Nitroglycerin Ointment (Nitrobid Ointme (01/13/19 18:05) Aspirin Chewable Tablet (Baby Aspirin Ch (01/13/19 18:15) Hydralazine Injection (Apresoline Inject (01/13/19 19:15) Ketorolac Injection (Toradol Injection) (01/13/19 19:45) Medications Given in ED Current Medications Medications Dose Ordered Sig/Mckenzie Route Start Time Stop Time Status Last Admin Dose Admin Aspirin 324 mg ONCE ONCE PO 01/13/19 18:15 01/13/19 18:16 DC 01/13/19 18:46 324 MG Hydralazine HCl 10 mg ONCE ONCE IV 01/13/19 19:15 01/13/19 19:16 DC 01/13/19 19:34 10 MG Ketorolac Tromethamine 30 mg ONCE ONCE IVP 01/13/19 19:45 01/13/19 19:46 DC 01/13/19 19:54 30 MG Vital Signs/I&O 01/13/19 18:00 Temp 97.6 Pulse 77 Resp 18 B/P (MAP) 190/93 (125) O2 Delivery Room Air Blood Pressure Mean: 125 Departure Impression Primary Impression: Uncontrolled hypertension Disposition: HOME, SELF-CARE Condition: Improved Departure-Patient Inst. Referrals: ANDRES RABAGO DO (PCP/Family) Primary Care Physician ANDREA ELIAS MD Patient Instructions: High Blood Pressure (DC) Add. Discharge Instructions: CONTINUE YOUR CURRENT MEDICATIONS PRESCRIBED FOLLOW UP WITH DR. ELIAS'S [facility] PROFESSIONAL NEXT WEEK FOR FURTHER CARE RETURN TO ER IF SYMPTOMS WORSEN All discharge instructions reviewed with patient and/or family. Voiced understanding. Scripts Hydralazine HCl (Hydralazine HCl) 10 Mg Tablet 10-20 MG PO TID, #50 TAB Prov: MORGAN LARES DO 01/13/19 MORGAN LARES DO Jan 13, 2019 20:01
[2019-01-13 20:22] VITALS: BP 190/93
== END 2019-01-13 20:24 | disposition home or self-care (01) ==
LOC: EDUNIT# 17:31 → ER 17:32
DX: I10 Essential (primary) hypertension (principal); I25.10 Atherosclerotic heart disease of native coronary artery without angina pectoris; I25.2 Old myocardial infarction; F41.9 Anxiety disorder, unspecified; F32.9 Major depressive disorder, single episode, unspecified; E78.00 Pure hypercholesterolemia, unspecified; G43.909 Migraine, unspecified, not intractable, without status migrainosus; K21.9 Gastro-esophageal reflux disease without esophagitis; G47.30 Sleep apnea, unspecified; M06.9 Rheumatoid arthritis, unspecified; Z86.718 Personal history of other venous thrombosis and embolism; Z86.73 Personal history of transient ischemic attack (TIA), and cerebral infarction without residual deficits; Z85.46 Personal history of malignant neoplasm of prostate; Z87.442 Personal history of urinary calculi; Z88.0 Allergy status to penicillin; Z88.1 Allergy status to other antibiotic agents; Z79.82 Long term (current) use of aspirin; Z79.02 Long term (current) use of antithrombotics/antiplatelets; Z87.891 Personal history of nicotine dependence; Z95.5 Presence of coronary angioplasty implant and graft; Z82.49 Family history of ischemic heart disease and other diseases of the circulatory system
CPT/HCPCS: 36415; 71045; 80053; 83735; 83874; 83880; 84484; 85025; 85610; 85730; 93005; 93041

== ENCOUNTER 2019-01-29 11:34 | Outpatient (RCR) | payer OTHER | END 2019-02-01 | disposition home or self-care (01) | LOC: CR 11:34 | PROVIDERS: ATTEND Internal Medicine Cardiovascular Disease | DX: Z48.812 Encounter for surgical aftercare following surgery on the circulatory system (principal); Z95.5 Presence of coronary angioplasty implant and graft | CPT/HCPCS: 93798 ==

== ENCOUNTER 2019-02-09 11:14 | Emergency (ER) | payer MEDICARE | END 2019-02-09 18:56 | disposition home or self-care (01) | LOC: ER 11:14 ==

== ENCOUNTER 2019-02-11 18:49 | Emergency (ER) | payer MEDICARE ==
[~2019-02-11] VITALS: Ht 175.3 cm; Wt 85.3 kg
[2019-02-11 19:13] LABS: BASOPHILS % (AUTO) 0 % (0-10); EOSINOPHILS # (AUTO) 0.1 10^3/uL (0.0-0.3); EOSINOPHILS % (AUTO) 3 % (0-10); HEMATOCRIT 32 % (40-54); HEMOGLOBIN 10.3 G/DL (13.3-17.7); LYMPHOCYTES # (AUTO) 1.1 X 10^3 (1.0-4.0); LYMPHOCYTES % (AUTO) 24 % (12-44); MEAN CORPUSCULAR HEMOGLOBIN 26 PG (25-34); MEAN CORPUSCULAR HGB CONC 32 G/DL (32-36); MEAN CORPUSCULAR VOLUME 81 FL (80-99); MEAN PLATELET VOLUME 9.6 FL (7.4-10.4); MONOCYTES # (AUTO) 0.6 X 10^3 (0.0-1.0); MONOCYTES % (AUTO) 12 % (0-12); NEUTROPHILS # (AUTO) 2.7 X 10^3 (1.8-7.8); NEUTROPHILS % (AUTO) 61 % (42-75); PLATELET COUNT 277 10^3/uL (130-400); RED CELL DISTRIBUTION WIDTH 15.7 % (10.0-14.5); WHITE BLOOD COUNT 4.5 10^3/uL (4.3-11.0)
[2019-02-11] MEDS ORDERED: cloNIDine 0.1 MG (CATAPRES) TAB PO ONE (19:15)
[2019-02-11] MEDS ORDERED: fentaNYL INJECTION 100 MCG/2 ML AMP IVP ONE (19:15)
[2019-02-11] MEDS ORDERED: hydrALAZINE (APESOLINE) 20 MG/ML VIAL IV ONE (19:15)
--- NOTE | 2019-02-11 19:15 | ED Chest Pain ---
General Chief Complaint: Cardiac/General Problems Stated Complaint: HYPERTENSION Nursing Triage Note: PT TO ROOM 06 WITH C/O HYPERTENSION AND HEADACHE. Nursing Sepsis Screen: No Definite Risk Source: patient Exam Limitations: no limitations History of Present Illness Date Seen by Provider: Feb 11, 2019 Time Seen by Provider: 19:12 Initial Comments to Er with c/o high blood pressure and headache. Timing/Duration: 1-2 days Severity/Quality: moderate Radiation: no radiation Activities at Onset: none ASA po MILL MANAGER: No NTG SL MILL MANAGER: No Associated Symptoms: denies symptoms Allergies and Home Medications Allergies Coded Allergies: penicillin G (Verified Allergy, Severe, SWELLING, 12/22/18) levofloxacin (Verified Allergy, Mild, Rash, 01/09/19) Home Medications Amlodipine Besylate 10 Mg Tablet, 10 MG PO DAILY, (Reported) Aspirin 81 Mg Tablet.dr, 81 MG PO HS, (Reported) Atorvastatin Calcium 10 Mg Tablet, 10 MG PO HS, (Reported) Bupropion HCl 150 Mg Tablet.er, 150 MG PO BID, (Reported) LAST FILLED #180 08-09-18 Buspirone HCl 15 Mg Tablet, 15 MG PO TID, (Reported) Carvedilol 6.25 Mg Tablet, 6.25 MG PO BID, (Reported) Clonidine HCl 0.1 Mg Tablet, 0.2 MG PO TID, (Reported) TAKES 2 (0.1MG) TABLETS Clopidogrel Bisulfate 75 Mg Tablet, 75 MG PO HS, (Reported) Docusate Sodium 100 Mg Capsule, 100 MG PO BID Prescribed by: MERLIN BISWAS on 12/28/18 1051 Hydralazine HCl 10 Mg Tablet, 10-20 MG PO TID Prescribed by: MORGAN LARES on 01/13/192000 Hydrocodone Bit/Acetaminophen 1 Tab Tab, 1-2 TAB PO Q6H PRN for PAIN-MODERATE Prescribed by: MERLIN BISWAS on 12/28/18 105 Losartan Potassium 100 Mg Tablet, 100 MG PO HS, (Reported) LAST FILLED #90 08-09-18 Nitrofurantoin Monohyd/M-Cryst 100 Mg Capsule, 1 TAB PO BID Prescribed by: BILL HUERTA on 01/09/19 0147 Nitroglycerin 0.4 Mg Tab.subl, 0.4 MG SL UD PRN for CHEST PAIN, (Reported) PLACE 1 TAB UNDER TONGUE NEEDED FOR CHEST PAIN; IF PAIN REMAINS AFTER 5 MINUTES, CALL 911 [place]-3 Fatty Acids/Fish Oil 1 Each Capsule, 1,000 MG PO TID, (Reported) Pantoprazole Sodium 40 Mg Tablet.dr, 40 MG PO BID, (Reported) Sertraline HCl 100 Mg Tablet, 100 MG PO DAILY, (Reported) TAKES ALONG WITH 25MG TABLET Sertraline HCl 25 Mg Tablet, 25 MG PO DAILY, (Reported) TAKES ALONG WITH 100MG TABLET Sucralfate 1 Gm Tablet, 1 GM PO QID Dissolve in 5-10 mL water and drink as a slurry 30 minutes before eating or drinking and before bed Prescribed by: BILL HUERTA on 01/09/19 0144 Patient Home Medication List Home Medication List Reviewed: Yes Review of Systems Review of Systems Constitutional: see HPI EENTM: No Symptoms Reported Respiratory: No Symptoms Reported Cardiovascular: No Symptoms Reported Gastrointestinal: See HPI Genitourinary: No Symptoms Reported Musculoskeletal: no symptoms reported Skin: no symptoms reported Psychiatric/Neurological: No Symptoms Reported Endocrine: No Symptoms Reported Hematologic/Lymphatic: No Symptoms Reported Past Lnjwzpz-Hzwxov-Gokhqh Hx Patient Social History Alcohol Use: Denies Use Number of Drinks Today: AA Alcohol Beverage of Choice: Beer Recreational Drug Use: No Drug of Choice: + IV METH USE, ALSO THC, WELL RX DRUGS Smoking Status: Former Smoker Type Used: Cigarettes Former Smoker, Quit: Aug 24, 2016 2nd Hand Smoke Exposure: Yes Recent Foreign Travel: No Contact w/Someone Who Travel: No Recent Infectious Disease Expo: No Recent Hopitalizations: No Physical Abuse: No Sexual Abuse: No Mistreated: No Fear: No Immunizations Up To Date Tetanus Booster (TDap): Less than 5yrs PED Vaccines UTD: No Date of Influenza Vaccine: Jul 28, 2017 Seasonal Allergies Seasonal Allergies: No Past Medical History Surgeries: Yes Bladder Surgery, Cardiac, Coronary Stent, Gallbladder, Orthopedic, Prostatectomy Respiratory: Yes Sleep Apnea Currently Using CPAP: No Currently Using BIPAP: No Cardiac: Yes Coronary Artery Disease, Deep Vein Thrombosis, Heart Attack, High Cholesterol, H ypertension Neurological: Yes Headaches /Migraines, TIA Reproductive Disorders: No Sexually Transmitted Disease: No HIV/AIDS: No Genitourinary: Yes Kidney Infection, Prostate Problems, Bladder Infection, Kidney Stones, UTI- Chronic Gastrointestinal: Yes Gastroesophageal Reflux, Chronic Diarrhea, Hiatal Hernia, Ulcer, Gall Bladder Disease Musculoskeletal: Yes Arthritis, Rheumatoid Arthritis, Back Injury, Chronic Back Pain, Fractures Endocrine: No (BUT HAS HAD HYPERGLYCEMIA AT TIMES) HEENT: Yes Eye Injury Loss of Vision: Denies Hearing Impairment: Denies Cancer: Yes Prostate Did You Recieve Any Treatments: Yes What Type of Treatment Did You: Radiation Psychosocial: Yes (History of illicit and prescription drug abuse) Sleep Difficulties, Anxiety, Depression Integumentary: No Blood Disorders: No Adverse Reaction/Blood Tranf: No (N/A) Family Medical History Arthritis 19 MOTHER RULING TECHNICIAN G8 SISTER FH: COPD (chronic obstructive pulmonary disease) Hypercholesterolemia 19 MOTHER Hypertension 19 MOTHER Heart Disease, Hypertension Physical Exam Vital Signs Vital Signs - First Documented 02/11/19 18:51 Temp 100.9 Pulse 82 Resp 18 B/P (MAP) 211/113 (145) Pulse Ox 96 O2 Delivery Nasal Cannula Capillary Refill : Less Than 3 Seconds Height, Weight, BMI Height: 5'9.00" Weight: 188lbs. 0oz. 85.829617uf; 28.1 BMI Method:Stated General Appearance: No Apparent Distress, WD/WN HEENT: PERRL/EOMI, TMs Normal Respiratory: No Accessory Muscle Use, No Respiratory Distress Gastrointestinal: Non Tender, Soft Extremity: Normal Capillary Refill, Normal Inspection Neurologic/Psychiatric: Alert, Oriented x3 Skin: Normal Color, Warm/Dry Progress/Results/Core Measures Results/Orders Lab Results Laboratory Tests Test 02/11/19 19:01 Range/Units White Blood Count 4.5 4.3-11.0 10^3/uL Red Blood Count 4.00 L 4.35-5.85 10^6/uL Hemoglobin 10.3 L 13.3-17.7 G/DL Hematocrit 32 L 40-54 % Mean Corpuscular Volume 81 80-99 FL Mean Corpuscular Hemoglobin 26 25-34 PG Mean Corpuscular Hemoglobin Concent 32 32-36 G/DL Red Cell Distribution Width 15.7 H 10.0-14.5 % Platelet Count 277 130-400 10^3/uL Mean Platelet Volume 9.6 7.4-10.4 FL Neutrophils (%) (Auto) 61 42-75 % Lymphocytes (%) (Auto) 24 12-44 % Monocytes (%) (Auto) 12 0-12 % Eosinophils (%) (Auto) 3 0-10 % Basophils (%) (Auto) 0 0-10 % Neutrophils # (Auto) 2.7 1.8-7.8 X 10^3 Lymphocytes # (Auto) 1.1 1.0-4.0 X 10^3 Monocytes # (Auto) 0.6 0.0-1.0 X 10^3 Eosinophils # (Auto) 0.1 0.0-0.3 10^3/uL Basophils # (Auto) 0.0 0.0-0.1 10^3/uL Sodium Level 140 135-145 MMOL/L Potassium Level 3.4 L 3.6-5.0 MMOL/L Chloride Level 106 98-107 MMOL/L Carbon Dioxide Level 21 21-32 MMOL/L Anion Gap 13 5-14 MMOL/L Blood Urea Nitrogen 9 7-18 MG/DL Creatinine 1.42 H 0.60-1.30 MG/DL Estimat Glomerular Filtration Rate 51 BUN/Creatinine Ratio 6 Glucose Level 107 H 70-105 MG/DL Calcium Level 8.7 8.5-10.1 MG/DL Corrected Calcium 8.6 8.5-10.1 MG/DL Total Bilirubin 0.3 0.1-1.0 MG/DL Aspartate Amino Transf (AST/SGOT) 15 5-34 U/L Alanine Aminotransferase (ALT/SGPT) 13 0-55 U/L Alkaline Phosphatase 145 H 40-136 U/L Troponin I < 0.028 <0.028 NG/ML Total Protein 7.6 6.4-8.2 GM/DL Albumin 4.1 3.2-4.5 GM/DL My Orders Orders - VLAD AVELAR APRN Hydralazine Injection (Apresoline Inject (02/11/19 19:15) Cbc With Automated Diff (02/11/19 19:05) Comprehensive Metabolic Panel (02/11/19 19:05) Troponin I (02/11/19 19:05) Ekg Tracing (02/11/19 19:05) Fentanyl Injection (Sublimaze Injection (02/11/19 19:15) Clonidine Tablet (Catapres Tablet) (02/11/19 19:15) Ketorolac Injection (Toradol Injection) (02/11/19 20:00) Prochlorperazine Injection (Compazine In (02/11/19 20:00) Diphenhydramine Injection (Benadryl Inje (02/11/19 20:00) Medications Given in ED Current Medications Medications Dose Ordered Sig/Mckenzie Route Start Time Stop Time Status Last Admin Dose Admin Clonidine HCl 0.2 mg ONCE ONCE PO 02/11/19 19:15 02/11/19 19:16 DC 02/11/19 19:14 0.2 MG Diphenhydramine HCl 25 mg ONCE ONCE IVP 02/11/19 20:00 02/11/19 20:02 DC 02/11/19 19:55 25 MG Fentanyl Citrate 50 mcg ONCE ONCE IVP 02/11/19 19:15 02/11/19 19:16 DC 02/11/19 19:15 50 MCG Hydralazine HCl 10 mg ONCE ONCE IV 02/11/19 19:15 02/11/19 19:16 DC 02/11/19 19:14 10 MG Ketorolac Tromethamine 15 mg ONCE ONCE IVP 02/11/19 20:00 02/11/19 20:02 DC 02/11/19 19:56 15 MG Prochlorperazine Edisylate 5 mg ONCE ONCE IV 02/11/19 20:00 02/11/19 20:02 DC 02/11/19 19:57 5 MG Vital Signs/I&O 02/11/19 18:51 Temp 100.9 Pulse 82 Resp 18 B/P (MAP) 211/113 (145) Pulse Ox 96 O2 Delivery Nasal Cannula Blood Pressure Mean: 145 Departure Communication (Admissions) blood pressure reduced nicely with relief of headache. Impression Primary Impression: Uncontrolled hypertension Disposition: 01 HOME, SELF-CARE Condition: Improved Departure-Patient Inst. Decision time for Depature: 20:18 Referrals: ANDRES RABAGO DO (PCP/Family) Primary Care Physician Patient Instructions: High Blood Pressure (DC), High Blood Pressure Emergencies Add. Discharge Instructions: 1. Call Dr elias tomorrow for follow up 2. Return to ER for any concerns All discharge instructions reviewed with patient and/or family. Voiced understanding. Copy Copies To 1: ANDREA ELIAS MD, PETER J APRN Feb 11, 2019 19:15
[2019-02-11 19:29] LABS: ALANINE AMINOTRANSFERASE 13 U/L (0-55); ALBUMIN 4.1 GM/DL (3.2-4.5); ALKALINE PHOSPHATASE 145 U/L (40-136); BILIRUBIN,TOTAL 0.3 MG/DL (0.1-1.0); BUN/CREATININE RATIO 6; CALCIUM 8.7 MG/DL (8.5-10.1); CARBON DIOXIDE 21 MMOL/L (21-32); CHLORIDE 106 MMOL/L (98-107); CREATININE SERUM 1.42 MG/DL (0.60-1.30); GFR ESTIMATED 51; GLUCOSE 107 MG/DL (70-105); POTASSIUM 3.4 MMOL/L (3.6-5.0); SODIUM 140 MMOL/L (135-145); TOTAL PROTEIN 7.6 GM/DL (6.4-8.2)
[2019-02-11] MEDS ORDERED: PROCHLORPERAZINE 10 MG/2ML INJ (COMPAZINE) IV ONE (20:00)
[2019-02-11] MEDS ORDERED: KETOROLAC 30 MG/ML VIAL IVP ONE (20:00)
[2019-02-11] MEDS ORDERED: diphenhydrAMINE 50 MG/ML INJ (BENADRYL) IVP ONE (20:00)
[2019-02-11 20:22] VITALS: BP 160/92
== END 2019-02-11 20:23 | disposition home or self-care (01) ==
LOC: EDUNIT# 18:49 → ER 18:51
DX: I10 Essential (primary) hypertension (principal); I25.10 Atherosclerotic heart disease of native coronary artery without angina pectoris; I25.2 Old myocardial infarction; E78.00 Pure hypercholesterolemia, unspecified; G43.909 Migraine, unspecified, not intractable, without status migrainosus; K21.9 Gastro-esophageal reflux disease without esophagitis; M06.9 Rheumatoid arthritis, unspecified; F41.9 Anxiety disorder, unspecified; F32.9 Major depressive disorder, single episode, unspecified; Z85.46 Personal history of malignant neoplasm of prostate; Z87.440 Personal history of urinary (tract) infections; Z87.442 Personal history of urinary calculi; Z86.73 Personal history of transient ischemic attack (TIA), and cerebral infarction without residual deficits; Z86.718 Personal history of other venous thrombosis and embolism; Z87.891 Personal history of nicotine dependence; Z88.0 Allergy status to penicillin; Z88.1 Allergy status to other antibiotic agents; Z79.82 Long term (current) use of aspirin; Z79.02 Long term (current) use of antithrombotics/antiplatelets; Z95.5 Presence of coronary angioplasty implant and graft; Z98.890 Other specified postprocedural states; Z82.49 Family history of ischemic heart disease and other diseases of the circulatory system
CPT/HCPCS: 36415; 80053; 84484; 85025; 93005

== ENCOUNTER → 2019-02-14 | Outpatient (CLI) | payer MEDICARE ==
[2019-02-14 11:14] LABS: ALBUMIN 4.1 GM/DL (3.2-4.5); BILIRUBIN,TOTAL 0.3 MG/DL (0.1-1.0); CALCIUM 8.7 MG/DL (8.5-10.1); CREATININE SERUM 1.5 MG/DL (0.60-1.30); POTASSIUM 3.6 MMOL/L (3.6-5.0); TOTAL PROTEIN 7.2 GM/DL (6.4-8.2)
== END ==
LOC: LAB 10:35
PROVIDERS: ATTEND Internal Medicine Cardiovascular Disease
DX: I25.10 Atherosclerotic heart disease of native coronary artery without angina pectoris (principal); I10 Essential (primary) hypertension; I07.1 Rheumatic tricuspid insufficiency; Z72.0 Tobacco use
CPT/HCPCS: 36415; 80053; 80061

== ENCOUNTER → 2019-02-22 | Outpatient (CLI) | payer MEDICARE ==
[~2019-02-22] MED LIST changes: +HOLD METFORMIN - RECEIVED CONTRAST 20 ML VIAL IV SCH; +IOHEXOL 350 MG/ML 100 ML (OMNIPAQUE 350) VIAL IV ONE; +NS 100 ML (IVPB) BAG IV ONE
[2019-02-22 14:50] LABS: CREATININE SERUM 1.45 MG/DL (0.60-1.30)
--- NOTE | 2019-02-22 15:48 | Diagnostic Imaging Report ---
PROCEDURE: CT Angio Abdomen/Pelvis with. TECHNIQUE: Multiple contiguous axial images were obtained through the abdomen and pelvis after the uneventful bolus administration of intravenous contrast. Sagittal and coronal MIP reconstructions with then performed. INDICATION: Coronary artery disease and hypertension. Patient has mid abdominal discomfort. COMPARISON: Correlation is made with prior CT from 10/05/2018. FINDINGS: The lung bases are clear. There is a [id number] hiatal hernia. The liver is without evidence for discrete mass. Gallbladder is surgically absent. No biliary ductal dilatation is seen. The pancreas and spleen are unremarkable. No adrenal mass is detected. Previously noted significant right-sided hydroureteronephrosis has significantly improved. There continues to be some distal ureteric calculi present. Largest calculus is just above the UVJ measuring 5-6 mm. A smaller stone at the UVJ is seen measuring 3 mm. The left ureter is unremarkable. The aorta shows some calcified plaque but is non-aneurysmal. The celiac artery is widely patent. Superior mesenteric artery is widely patent. Inferior mesenteric artery appears patent. There are single renal arteries bilaterally. There is mild narrowing of the proximal right renal artery. The small and large bowel loops are normal caliber. There is no obstruction. There is no ascites. There is sigmoid diverticulosis without evidence of acute diverticulitis. There is some circumferential thickening of the descending and sigmoid colon. This could be secondary to nonspecific colitis versus incomplete distention. Bladder is unopacified. Prostate is unremarkable and does contain some radiation seed implants. Bony structures are nonacute. IMPRESSION: 1. Distal right ureteric calculi, as described producing mild hydronephrosis. Degree of hydronephrosis has significantly improved since prior CT from 10/05/2018. 2. Khpqn-vr-zhsrcxon hiatal hernia. 3. Uncomplicated diverticulosis. 4. There is generalized wall thickening versus incomplete distention of the descending colon and sigmoid. Nonspecific colitis cannot be entirely excluded. 5. No other significant abnormality is detected. Dictated by: Dictated on workstation # [id number]
== END ==
LOC: RAD 13:50
PROVIDERS: ATTEND Internal Medicine Cardiovascular Disease
DX: N13.2 Hydronephrosis with renal and ureteral calculous obstruction (principal); K44.9 Diaphragmatic hernia without obstruction or gangrene; K57.30 Diverticulosis of large intestine without perforation or abscess without bleeding; I25.10 Atherosclerotic heart disease of native coronary artery without angina pectoris; I10 Essential (primary) hypertension; I07.1 Rheumatic tricuspid insufficiency; Z72.0 Tobacco use; Z90.49 Acquired absence of other specified parts of digestive tract
CPT/HCPCS: 36415; 74174; 82565; 84520

== ENCOUNTER 2019-03-02 10:35 | Emergency (ER) | payer MEDICARE ==
[~2019-03-02 10:35] MED LIST changes: -HOLD METFORMIN - RECEIVED CONTRAST 20 ML VIAL IV SCH; -IOHEXOL 350 MG/ML 100 ML (OMNIPAQUE 350) VIAL IV ONE; -NS 100 ML (IVPB) BAG IV ONE
== END 2019-03-02 12:29 | disposition left against medical advice (07) ==
LOC: EDUNIT# 10:35 → ER 10:36
DX: R03.0 Elevated blood-pressure reading, without diagnosis of hypertension (principal)

== ENCOUNTER 2019-03-14 11:11 | Outpatient (RCR) | payer MEDICARE | END 2019-05-03 | disposition home or self-care (01) | LOC: CR 11:11 | PROVIDERS: ATTEND Internal Medicine Cardiovascular Disease | DX: Z48.812 Encounter for surgical aftercare following surgery on the circulatory system (principal); Z95.5 Presence of coronary angioplasty implant and graft | CPT/HCPCS: 93798 ==

== ENCOUNTER → 2019-07-16 | Outpatient (CLI) | payer MEDICARE ==
[~2019-07-16] MED LIST changes: -DOXY100T19 PO; +DOXY100T31 PO; -ENAL5TAB PO; +ENLP5T PO; -TAMS0.4C98 PO; +TMSL.4C PO; -TRAZ-222 PO; +TRZ50T PO
[2019-07-16 14:47] LABS: HEMOGLOBIN 11.3 G/DL (13.3-17.7); MEAN PLATELET VOLUME 9.4 FL (7.4-10.4); RED CELL DISTRIBUTION WIDTH 16.9 % (10.0-14.5); WHITE BLOOD COUNT 3.6 10^3/uL (4.3-11.0)
== END ==
LOC: LAB 14:27
PROVIDERS: ATTEND Family Medicine
DX: R19.5 Other fecal abnormalities (principal); Z79.01 Long term (current) use of anticoagulants
CPT/HCPCS: 36415; 85027

== ENCOUNTER 2020-11-12 11:58 | Outpatient (CLI) | payer MEDICARE ==
[2020-11-12] VITALS (10 sets, daily range): BP systolic 114–165; BP diastolic 80–89
[~2020-11-12] VITALS: Ht 175.3 cm; Wt 87.7 kg
[~2020-11-12 11:58] MED LIST changes: +ACHYD1T PO; +AMLO-251 PO; -AMLO10TA7 PO; +ASPI-1238 PO; -ASPI-983 PO; -CIPR500T4 PO; +CIPR500T5 PO; +CLN.1T PO; -CLON0.1T PO; -ENAL10TA PO; +ENAL10TA16 PO; +HYDR-34 PO; -HYDR-3812 PO; -HYDR-3816 PO; -HYDR-3820 PO; -ISM60TCR PO; -ISOS30TA3 PO; +ISOS30TA82 PO; +ISOS60TA63 PO; -LISI-552 PO; +LISI20TA26 PO; +SERT-412 PO; +SERT-413 PO; +SERT-414 PO; -SERT100T8 PO; -SERT25TA5 PO; -SERT50TA9 PO; -TRAZ-190 PO; +TRAZ-227 PO
[2020-11-12] MEDS ORDERED: HEParin (CATH LAB) 2,000 ML IV ONE (12:23)
[2020-11-12] MEDS ORDERED: LIDOCAINE 1% INJ 20 ML 20 ML VIAL ONE (12:23)
[2020-11-12] MEDS ORDERED: NS IV 1000 ML 1,000 ML IV SCH ×2 (12:30→14:15)
[2020-11-12 12:48] LABS: HEMATOCRIT 35 % (40-54); HEMOGLOBIN 10.3 g/dL (13.3-17.7); MEAN CORPUSCULAR HEMOGLOBIN 23 pg (25-34); MEAN CORPUSCULAR HGB CONC 29 g/dL (32-36); MEAN CORPUSCULAR VOLUME 78 fL (80-99); MEAN PLATELET VOLUME 10.1 fL (9.0-12.2); PLATELET COUNT 245 10^3/uL (130-400); WHITE BLOOD COUNT 4.7 10^3/uL (4.3-11.0)
--- NOTE | 2020-11-12 13:04 | Diagnostic Imaging Report ---
EXAMINATION: Chest 1 view HISTORY: CHEST PAIN COMPARISON: Chest radiograph 02/09/2019 FINDINGS: Heart size and pulmonary vasculature are normal. The lungs are clear without consolidation, pleural effusion, or pneumothorax. The osseous structures are intact. IMPRESSION: 1. No acute radiographic abnormality in the chest. Dictated by: Dictated on workstation # [id number]
[2020-11-12 13:09] LABS: ALBUMIN 4.1 GM/DL (3.2-4.5); BILIRUBIN,TOTAL 0.3 MG/DL (0.1-1.0); CALCIUM 9.3 MG/DL (8.5-10.1); CREATININE SERUM 1.73 MG/DL (0.60-1.30); POTASSIUM 4.2 MMOL/L (3.6-5.0); TOTAL PROTEIN 7.7 GM/DL (6.4-8.2)
[2020-11-12] MEDS ORDERED: TMSL.4C PO (13:13)
[2020-11-12] MEDS ORDERED: LOSA50TA63 PO (13:13)
[2020-11-12] MEDS ORDERED: OMEP20CA18 PO (13:13)
[2020-11-12] MEDS ORDERED: fentaNYL INJ 100 MCG/2 ML AMP ONE (13:17)
[2020-11-12] MEDS ORDERED: MIDAZOLAM 5 MG/5 ML (VERSED) VIAL ONE (13:18)
[2020-11-12 13:43] LABS: INR 0.9 (0.8-1.4); PROTHROMBIN TIME PATIENT 12.7 SEC (12.2-14.7)
--- NOTE | 2020-11-12 14:08 | Discharge Inst-Post CATH ---
Discharge Inst-CATH/EP Problems Reviewed?: Yes Post Cardiac Cath/EP D/C Inst Follow Up/Plan Appointment with Dr. Lao's office in 2 to 4 weeks <b>CARDIAC CATH/EP PROCEDURE DISCHARGE INSTRUCTIONS</b> ACTIVITY * Go Home directly and rest. * Limit activity of the leg (or wrist if it was used) for 7 days including aer obics, swimming, jogging, bicycling, etc. * Restrict stair-climbing for 7 days if possible, if not, climb up with your non-cath leg, then bring together on the same step. * Avoid lifting, pushing, pulling or excessive movement of the affected extremi ty for 7 days. * Customary sexual activity may be resumed after 2 days-use caution not to use a position that strains or causes pain to the affected extremity. * No driving for 24 hours. * NO SMOKING. * Avoid straining for bowel movements for 7 days. * Gentle walking on level ground is allowed. * Returning to work will depend on the type of procedure and the results. Your doctor will discuss this with you. CALL YOUR DOCTOR FOR ANY OF THE FOLLOWING: *If bleeding from the puncture site occurs- Apply gentle pressure to site with clean cloth and call your doctor or EMS. * If a knot or lump forms under the skin, increases in size, or causes pain. * If bruising appears to be worsening or moving further down your leg instead of disappearing. * Temperature above 101 F. CARE OF YOUR GROIN INCISION; * Bruising or purple discoloration of the skin near the puncture site is common. * You may shower only, no bathtub bathing for 5 days. Be careful to avoid slipping as your leg may feel stiff. * If a closure device was used on your femoral artery, please see the attached guide regarding care of the device and your leg. * Leave dressing on FOR 24 hours. CARE OF YOUR WRIST INCISION; * Bruising or purple discoloration of the skin near the puncture site is common. * You may shower. * DO NOT submerge wrist. * Leave dressing on FOR 24 hours. ANDREA LAO MD November 12, 2020 2:08 pm
[2020-11-12] MEDS ORDERED: PATIENT MAY USE OWN MEDS, ALL PO SCH (14:15)
--- NOTE | 2020-11-12 14:15 | Cardiac Cath Report ---
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 After explaining the procedure to the patient, all pros and cons were explained, all questions were answered. The patient signed the consent and then he was p laced on the cardiac catheterization laboratory. Groin was prepped SL fashion local anesthesia was used. Sheath placed in the right femoral artery. Tino right and left catheter were used to access the coronary system. Using the Tino right I was able to cross over to the left iliac artery, I was unable to advance a rim catheter, placed a rim catheter at the ostium of the left iliac and runoff to the left leg was done then the rim catheter was removed and runoff to the right leg done through the sheath. At the end of the procedure the sheath was removed. Closure device was deployed FINDINGS: Hemodynamics LV was not measured Aorta 132/58 mean of 87 ANATOMY: Left Main has mild disease nonobstructive disease Left Anterior Descending is tortuous artery with mild to moderate disease nonobstructive disease Left Circumflex is moderate in size with no significant obstructive disease Right Coronary Artery has multiple stents at the proximal and midportion with mild disease nonobstructive disease Left lower extremity runoff: None with a rim catheter at the ostium of the left common iliac, there is mild to moderate plaque at the ostium and proximal left common iliac then runoff showed mild to moderate disease down to the trifurcation. Below the trifurcation there is good flow down to the foot Right lower extremity runoff: Done through the sheath, showing mild to moderate disease down to the trifurcation, below the trifurcation the posterior tibial artery appeared to have moderate stenosis. CONCLUSION: 1. Patent stent in the proximal and mid right coronary artery none obstructive disease, small vessel disease distally 2. Tortuous LAD with mild to moderate disease, nonobstructive disease 3. Left common iliac artery has some eccentric plaque with moderate stenosis no nobstructive disease 4. Moderate stenosis at the right posterior tibial artery, mild to moderate disease at the common femoral and right SFA DISCUSSION AND RECOMMENDATION: Continue to maximize medical therapy no intervention is warranted Anesthesia Type: Conscious Sedation Estimated blood loss (mL): 25 ml Contrast Amount: 25 ml Total Radiation Dose: 340 mGy Post-Procedure Diagnosis Post-operative diagnosis: Chest pain Coronary artery disease Peripheral arterial disease Hypertension Hyperlipidemia ANDREA ELIAS MD November 12, 2020 2:15 pm
== END 2020-11-12 18:24 ==
LOC: CATH 11:58
PROVIDERS: ATTEND Internal Medicine Cardiovascular Disease
DX: I25.10 Atherosclerotic heart disease of native coronary artery without angina pectoris (principal); I73.9 Peripheral vascular disease, unspecified; I10 Essential (primary) hypertension; E78.5 Hyperlipidemia, unspecified; R79.1 Abnormal coagulation profile
CPT/HCPCS: 71045; 75716; 80053; 80061; 85027; 85610; 85730; 87081; 93458; C1760; C1769; C1894; 36415

== ENCOUNTER 2020-11-16 14:01 | Emergency (ER) | payer MEDICARE ==
[~2020-11-16] VITALS: Ht 175 cm; Wt 88.0 kg
[~2020-11-16 14:01] MED LIST changes: +OMEP20CA18 PO
[2020-11-16 14:29] LABS: BASOPHILS % (AUTO) 1 % (0-10); EOSINOPHILS # (AUTO) 0.2 10^3/uL (0.0-0.3); EOSINOPHILS % (AUTO) 5 % (0-10); HEMATOCRIT 31 % (40-54); HEMOGLOBIN 9.2 g/dL (13.3-17.7); LYMPHOCYTES # (AUTO) 0.9 10^3/uL (1.0-4.0); LYMPHOCYTES % (AUTO) 18 % (12-44); MEAN CORPUSCULAR HEMOGLOBIN 24 pg (25-34); MEAN CORPUSCULAR HGB CONC 30 g/dL (32-36); MEAN CORPUSCULAR VOLUME 78 fL (80-99); MEAN PLATELET VOLUME 10.4 fL (9.0-12.2); MONOCYTES # (AUTO) 0.6 10^3/uL (0.0-1.0); MONOCYTES % (AUTO) 13 % (0-12); NEUTROPHILS % (AUTO) 63 % (42-75); PLATELET COUNT 249 10^3/uL (130-400); WHITE BLOOD COUNT 4.8 10^3/uL (4.3-11.0)
[2020-11-16] MEDS ORDERED: MAGNESIUM 1 GM/100 ML IVPB 100 ML IV ONE (14:30)
[2020-11-16] MEDS ORDERED: ONDANSETRON 4 MG/2 ML (SDV) Z0FRAN IVP ONE (14:30)
[2020-11-16] MEDS ORDERED: NS IV 500 ML 500 ML IV ONE (14:30)
[2020-11-16] MEDS ORDERED: KETOROLAC 30 MG/ML VIAL IVP ONE (14:30)
[2020-11-16] MEDS ORDERED: diphenhydrAMINE 50 MG/ML INJ (BENADRYL) IVP ONE (14:30)
[2020-11-16 14:44] LABS: ALBUMIN 3.7 GM/DL (3.2-4.5)
--- NOTE | 2020-11-16 14:44 | Diagnostic Imaging Report ---
Portable erect AP chest at 2:35. Indication: Chest pain The heart size is within normal limits and stable when compared to 11/12/2020. In the interval since the prior exam, a faint area of slight increased density has developed over the left lung base. This finding is suspicious for mild pneumonia/atelectasis. Clinical followup is recommended. The lungs are otherwise generally clear. The mediastinum is not widened. The osseous structures are intact. Impression: 1. The vague area of slight increased density overlying the left lung base is of uncertain etiology but suspicious for mild pneumonia/atelectasis. Clinical followup is recommended. 2. There is no acute cardiopulmonary abnormality noted otherwise. Dictated by: Dictated on workstation # [id number]
[2020-11-16 14:45] LABS: POTASSIUM 4.3 MMOL/L (3.6-5.0)
[2020-11-16 14:46] LABS: CALCIUM 8.7 MG/DL (8.5-10.1)
[2020-11-16 14:47] LABS: TOTAL PROTEIN 6.9 GM/DL (6.4-8.2)
[2020-11-16 14:49] LABS: BILIRUBIN,TOTAL 0.2 MG/DL (0.1-1.0)
[2020-11-16 14:51] LABS: CREATININE SERUM 1.37 MG/DL (0.60-1.30)
[2020-11-16 14:53] LABS: MAGNESIUM 1.8 MG/DL (1.6-2.4)
--- NOTE | 2020-11-16 16:10 | ED Chest Pain ---
General Chief Complaint: Chest Pain Stated Complaint: CP Nursing Triage Note: PT ARRIVED PER EMS, PT CO OF CHEST PAIN 08/27 AND PAEZ /. PT HAD HEART CATH ON TUESDAY LAST WEEK. PT STATES HAS BEEN FALLING AND WEAKNESS Nursing Sepsis Screen: No Definite Risk Source: patient Exam Limitations: no limitations History of Present Illness Date Seen by Provider: November 16, 2020 Time Seen by Provider: 14:09 Initial Comments This is a 60-year-old gentleman presents to the emergency room with primary complaint of chest pain and headache. He had a cardiac angiography performed November 12. He reports having persistent chest pain since prior to that and having generalized weakness since returning home from the procedure. He also reports having chronic headache that is persisting today. Family notes that he has fallen numerous times over the past week. He has struck his head and has also fallen on top of car parts and other things around the home. 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 He denies any drug or alcohol abuse. He does continue to smoke. Family reports that he has been very subdued or lethargic since he returned home from the catheterization. He seems quite depressed, especially since his mother last fall. He also reported some blurriness of vision, which is also known to be associated with his headaches in the past. He is noted to have a cough during my exam which he states is new. He has not been vaccinated for COVID-19. Allergies and Home Medications Allergies Coded Allergies: penicillin G (Verified Allergy, Severe, SWELLING, 12/22/18) levofloxacin (Verified Allergy, Mild, Rash, 01/09/19) Home Medications Amlodipine Besylate 10 Mg Tablet, 10 MG PO DAILY, (Reported) Aspirin 81 Mg Tablet.dr, 81 MG PO HS, (Reported) Atorvastatin Calcium 10 Mg Tablet, 10 MG PO HS, (Reported) Azithromycin 250 Mg Tablet, 250 MG PO UD TAKE 2 TABLETS ON DAY ONE THEN TAKE 1 TABLET DAILY FOR FOUR MORE DAYS Prescribed by: BILL HUERTA on 11/16/201923 Bupropion HCl 150 Mg Tablet.er, 150 MG PO BID, (Reported) LAST FILLED #180 08-09-18 Buspirone HCl 15 Mg Tablet, 15 MG PO TID, (Reported) Carvedilol 6.25 Mg Tablet, 6.25 MG PO BID, (Reported) Clonidine HCl 0.1 Mg Tablet, 0.1 MG PO TID, (Reported) Clopidogrel Bisulfate 75 Mg Tablet, 75 MG PO HS, (Reported) Hydrocodone Bit/Acetaminophen 1 Tab Tab, 1-2 TAB PO Q6H PRN for PAIN-MODERATE Prescribed by: MERLIN BISWAS on 12/28/18 1051 Losartan Potassium 50 Mg Tablet, 100 MG PO DAILY, (Reported) Nitroglycerin 0.4 Mg Tab.subl, 0.4 MG SL UD PRN for CHEST PAIN, (Reported) PLACE 1 TAB UNDER TONGUE NEEDED FOR CHEST PAIN; IF PAIN REMAINS AFTER 5 MINUTES, CALL 911 Omeprazole 20 Mg Capsule.dr, 20 MG PO DAILY, (Reported) Sertraline HCl 100 Mg Tablet, 100 MG PO DAILY, (Reported) TAKES ALONG WITH 25MG TABLET Sertraline HCl 25 Mg Tablet, 25 MG PO DAILY, (Reported) TAKES ALONG WITH 100MG TABLET Sucralfate 1 Gm Tablet, 1 GM PO QID Dissolve in 5-10 mL water and drink as a slurry 30 minutes before eating or drinking and before bed Prescribed by: BILL HUERTA on 01/09/19 0144 Tamsulosin HCl 0.4 Mg Cap, 0.4 MG PO AFTER DINNER, (Reported) Patient Home Medication List Home Medication List Reviewed: Yes Review of Systems Review of Systems Constitutional: see HPI EENTM: No Symptoms Reported Respiratory: See HPI Cardiovascular: See HPI Gastrointestinal: No Symptoms Reported Genitourinary: No Symptoms Reported Musculoskeletal: see HPI Skin: no symptoms reported Psychiatric/Neurological: See HPI Endocrine: No Symptoms Reported Hematologic/Lymphatic: No Symptoms Reported Past Ofooelg-Vyvxqp-Ynuwta Hx Past Med/Social Hx: Reviewed Nursing Past Med/Soc Hx Patient Social History Alcohol Beverage of Choice: Beer Drug of Choice: HISTORY OF + IV METH USE, ALSO THC, WELL RX DRUGS Type Used: Cigarettes Former Smoker, Quit: Aug 24, 2016 2nd Hand Smoke Exposure: Yes Recent Infectious Disease Expo: No Recent Hopitalizations: No Immunizations Up To Date Tetanus Booster (TDap): Less than 5yrs PED Vaccines UTD: No Date of Influenza Vaccine: Mar 20, 2020 Seasonal Allergies Seasonal Allergies: No Past Medical History Surgeries: Yes Abdominal, Bladder Surgery, Cardiac, Coronary Stent, Gallbladder, Orthopedic, Renal, Transurethral Resection Respiratory: Yes Sleep Apnea Currently Using CPAP: No Currently Using BIPAP: No Cardiac: Yes Angina, Coronary Artery Disease, Deep Vein Thrombosis, Heart Attack, High Cholesterol, Hypertension, Valvular Heart Disease Neurological: Yes (Atypical migraine) Headaches /Migraines, TIA Reproductive Disorders: No Sexually Transmitted Disease: No HIV/AIDS: No Genitourinary: Yes Kidney Infection, Prostate Problems, Bladder Infection, Kidney Stones, UTI-Ch ronic Gastrointestinal: Yes Abdominal Hernia, Gastroesophageal Reflux, Chronic Diarrhea, Polyps, Hiatal He rnia, Ulcer, Gall Bladder Disease Musculoskeletal: Yes Arthritis, Rheumatoid Arthritis, Back Injury, Chronic Back Pain, Fractures Endocrine: No (BUT HAS HAD HYPERGLYCEMIA AT TIMES) HEENT: Yes Eye Injury Loss of Vision: Denies Hearing Impairment: Denies Cancer: Yes Prostate Did You Recieve Any Treatments: Yes What Type of Treatment Did You: Radiation Psychosocial: Yes (History of illicit and prescription drug abuse) Sleep Difficulties, Anxiety, Depression Integumentary: No Blood Disorders: No Adverse Reaction/Blood Tranf: No (N/A) Family Medical History Arthritis 19 MOTHER [employer] SALES [employer]IST G8 SISTER FH: COPD (chronic obstructive pulmonary disease) Hypercholesterolemia 19 MOTHER Hypertension 19 MOTHER Heart Disease, Hypertension Physical Exam Vital Signs Vital Signs - First Documented Capillary Refill : Less Than 3 Seconds Height, Weight, BMI Height: 5'9.00" Weight: 188lbs. 0oz. 85.154187ry; 28.00 BMI Method:Stated General Appearance: No Apparent Distress, WD/WN HEENT: PERRL/EOMI, Normal ENT Inspection Neck: Normal Inspection Respiratory: Lungs Clear, Normal Breath Sounds, No Accessory Muscle Use Cardiovascular: Regular Rate, Rhythm, No Edema, Normal Peripheral Pulses Gastrointestinal: Normal Bowel Sounds, Non Tender, Soft Extremity: Normal Inspection, No Pedal Edema Neurologic/Psychiatric: Alert, Oriented x3, No Motor/Sensory Deficits, Normal Mood/Affect, barrel inspector II-XII Norm as Tested Skin: Warm/Dry, Ecchymosis Focused Exam Lactate Level 11/16/20 15:20: Lactic Acid Level 1.06 Lactic Acid Level Laboratory Tests Test 11/16/20 15:20 Lactic Acid Level 1.06 MMOL/L (0.50-2.00) Progress/Results/Core Measures Results/Orders Lab Results Laboratory Tests Test 11/16/20 14:20 11/16/20 14:50 11/16/20 15:20 11/16/20 15:52 Range/Units White Blood Count 4.8 4.3-11.0 10^3/uL Red Blood Count 3.92 L 4.30-5.52 10^6/uL Hemoglobin 9.2 L 13.3-17.7 g/dL Hematocrit 31 L 40-54 % Mean Corpuscular Volume 78 L 80-99 fL Mean Corpuscular Hemoglobin 24 L 25-34 pg Mean Corpuscular Hemoglobin Concent 30 L 32-36 g/dL Red Cell Distribution Width 17.6 H 10.0-14.5 % Platelet Count 249 130-400 10^3/uL Mean Platelet Volume 10.4 9.0-12.2 fL Immature Granulocyte % (Auto) 0 % Neutrophils (%) (Auto) 63 42-75 % Lymphocytes (%) (Auto) 18 12-44 % Monocytes (%) (Auto) 13 H 0-12 % Eosinophils (%) (Auto) 5 0-10 % Basophils (%) (Auto) 1 0-10 % Neutrophils # (Auto) 3.0 1.8-7.8 10^3/uL Lymphocytes # (Auto) 0.9 L 1.0-4.0 10^3/uL Monocytes # (Auto) 0.6 0.0-1.0 10^3/uL Eosinophils # (Auto) 0.2 0.0-0.3 10^3/uL Basophils # (Auto) 0.0 0.0-0.1 10^3/uL Immature Granulocyte # (Auto) 0.0 0.0-0.1 10^3/uL Sodium Level 140 135-145 MMOL/L Potassium Level 4.3 3.6-5.0 MMOL/L Chloride Level 104 98-107 MMOL/L Carbon Dioxide Level 24 21-32 MMOL/L Anion Gap 12 5-14 MMOL/L Blood Urea Nitrogen 8 7-18 MG/DL Creatinine 1.37 H 0.60-1.30 MG/DL Estimat Glomerular Filtration Rate 53 BUN/Creatinine Ratio 6 Glucose Level 95 70-105 MG/DL Calcium Level 8.7 8.5-10.1 MG/DL Corrected Calcium 8.9 8.5-10.1 MG/DL Magnesium Level 1.8 1.6-2.4 MG/DL Total Bilirubin 0.2 0.1-1.0 MG/DL Aspartate Amino Transf (AST/SGOT) 19 5-34 U/L Alanine Aminotransferase (ALT/SGPT) 17 0-55 U/L Alkaline Phosphatase 165 H 40-136 U/L Myoglobin 46.4 10.0-92.0 NG/ML Troponin I < 0.028 <0.028 NG/ML C-Reactive Protein High Sensitivity 3.67 H 0.00-0.50 MG/DL Total Protein 6.9 6.4-8.2 GM/DL Albumin 3.7 3.2-4.5 GM/DL TSH Towner Testing 1.99 0.35-4.94 UIU/ML Serum Alcohol < 10 <10 MG/DL Influenza Type A (RT-PCR) Not Detected Not Detecte Influenza Type B (RT-PCR) Not Detected Not Detecte SARS-CoV-2 RNA (RT-PCR) Not Detected Not Detecte Lactic Acid Level 1.06 0.50-2.00 MMOL/L D-Dimer 0.43 0.00-0.49 UG/ML Test 11/16/20 15:56 11/16/20 16:36 11/16/20 17:30 Range/Units Prothrombin Time 13.0 12.2-14.7 SEC INR Comment 0.9 0.8-1.4 Activated Partial Thromboplast Time 34 24-35 SEC Blood Gas Puncture Site RT RAD Blood Gas Patient Temperature 36.5 Arterial Blood pH 7.37 7.37-7.43 Arterial Blood Partial Pressure CO2 45 35-45 MMHG Arterial Blood Partial Pressure O2 95 H 79-93 MMHG Arterial Blood HCO3 26 23-27 MMOL/L Arterial Blood Total CO2 27.2 21.0-31.0 MMOL/L Arterial Blood Oxygen Saturation 99 94-100 % Arterial Blood Base Excess 1.0 -2.5-2.5 MMOL/L Kamron Test YES-POS Blood Gas Ventilator Setting NO Blood Gas Inspired Oxygen 3 L Urine Color YELLOW Urine Clarity CLEAR Urine pH 6.0 5-9 Urine Specific [place] <=1.005 1.016-1.022 Urine Protein NEGATIVE NEGATIVE Urine Glucose (UA) NEGATIVE NEGATIVE Urine Ketones NEGATIVE NEGATIVE Urine Nitrite NEGATIVE NEGATIVE Urine Bilirubin NEGATIVE NEGATIVE Urine Urobilinogen 0.2 < = 1.0 MG/DL Urine Leukocyte Esterase NEGATIVE NEGATIVE Urine RBC (Auto) NEGATIVE NEGATIVE Urine RBC NONE /HPF Urine WBC NONE /HPF Urine Crystals PRESENT H /LPF Urine Amorphous Sediment RARE MAREK URATES H /LPF Urine Bacteria NEGATIVE /HPF Urine Casts NONE /LPF Urine Mucus NEGATIVE /LPF Urine Culture Indicated NO Urine Opiates Screen POSITIVE H NEGATIVE Urine Oxycodone Screen NEGATIVE NEGATIVE Urine Methadone Screen NEGATIVE NEGATIVE Urine Propoxyphene Screen NEGATIVE NEGATIVE Urine Barbiturates Screen NEGATIVE NEGATIVE Ur Tricyclic Antidepressants Screen NEGATIVE NEGATIVE Urine Phencyclidine Screen NEGATIVE NEGATIVE Urine Amphetamines Screen NEGATIVE NEGATIVE Urine Methamphetamines Screen NEGATIVE NEGATIVE Urine Benzodiazepines Screen POSITIVE H NEGATIVE Urine Cocaine Screen NEGATIVE NEGATIVE Urine Cannabinoids Screen NEGATIVE NEGATIVE My Orders Orders - BILL APONTE MD Cbc With Automated Diff (11/16/20 14:04) Magnesium (11/16/20 14:04) Chest 1 View, Ap/Pa Only (11/16/20 14:04) Ekg Tracing (11/16/20 14:04) Comprehensive Metabolic Panel (11/16/20 14:04) Myoglobin Serum (11/16/20 14:04) Protime With Inr (11/16/20 14:04) Partial Thromboplastin Time (11/16/20 14:04) O2 (11/16/20 14:04) Monitor-Rhythm Ecg Trace Only (11/16/20 14:04) Ed Iv/Invasive Line Start (11/16/20 14:04) Troponin I (11/16/20 14:04) Ns Iv 500 Ml (Sodium Chloride 0.9%) (11/16/20 14:30) Diphenhydramine Injection (Benadryl Inje (11/16/20 14:30) Magnesium 1 Gm/100 Ml Ivpb (Magnesium Tejeda (11/16/20 14:30) Ketorolac Injection (Toradol Injection) (11/16/20 14:30) Ondansetron Injection (Zofran Injectio (11/16/20 14:30) Hs C Reactive Protein (11/16/20 14:27) Covid 19 Inhouse Test (11/16/20 14:27) Influenza A And B By Pcr (11/16/20 14:27) Ct Head/Cervical Spine Wo (11/16/20 14:37) Blood Culture (11/16/20 15:02) Urinalysis (11/16/20 15:02) Urine Culture (11/16/20 15:02) Vital Signs Adult Sepsis Patie Q15M (11/16/20 15:02) Remove Rings In Anticipation O (11/16/20 15:02) Lactic Acid Analyzer (11/16/20 15:02) Meropenem (Merrem 1000 Mg) (11/16/20 16:15) Ct Chest/Abdomen Wo (11/16/20 16:02) Alcohol (11/16/20 16:02) Arterial Blood Gas (11/16/20 16:36) Drug Screen Stat (Urine) (11/16/20 16:02) Thyroid Analyzer (11/16/20 16:02) Arterial Blood Draw (11/16/20 ) Albuterol/Ipra Inhalation Soln (Duoneb I (11/16/20 17:15) Svn Small Volume Nebulizer (11/16/20 17:12) Fibrin Degradation Products (11/16/20 18:09) Medications Given in ED Current Medications Medications Dose Ordered Sig/Mckenzie Route Start Time Stop Time Status Last Admin Dose Admin Albuterol/ Ipratropium 3 ml ONCE ONCE INH 11/16/20 17:15 11/16/20 17:16 DC 11/16/20 17:47 3 ML Diphenhydramine HCl 25 mg ONCE ONCE IVP 11/16/20 14:30 11/16/20 14:31 DC 11/16/20 14:43 25 MG Ketorolac Tromethamine 15 mg ONCE ONCE IVP 11/16/20 14:30 11/16/20 14:31 DC 11/16/20 14:43 15 MG Magnesium Sulfate/ Dextrose 100 ml @ 100 mls/hr ONCE ONCE IV 11/16/20 14:30 11/16/20 15:29 DC 11/16/20 14:42 100 MLS/HR Meropenem 1000 mg/ Sterile Water 20 ml @ 240 mls/hr ONCE ONCE IV 11/16/20 16:15 11/16/20 16:19 DC 11/16/20 16:43 240 MLS/HR Ondansetron HCl 4 mg ONCE ONCE IVP 11/16/20 14:30 11/16/20 14:31 DC 11/16/20 14:42 4 MG Sodium Chloride 500 ml @ 0 mls/hr Q0M ONCE IV 11/16/20 14:30 11/16/20 14:31 DC 11/16/20 14:42 500 MLS/HR Vital Signs/I&O 11/16/20 11/16/20 11/16/20 11/16/20 14:05 14:05 14:05 19:28 Temp 36.5 36.3 Pulse 71 61 Resp 24 18 B/P (MAP) 166/94 (118) 151/78 (118) Pulse Ox 97 97 93 O2 Delivery Nasal Cannula Nasal Cannula Nasal Cannula Room Air O2 Flow Rate 2.00 2.00 Blood Pressure Mean: 118 Progress Progress Note #1: Time: 16:14 Progress Note Patient was seen and examined shortly after arrival. Work-up has been fairly unremarkable. Patient appeared to have global weakness and dulled cognition. He has been known to have severe atypical migraines in the past for which a medication cocktail has been effective. He was given this cocktail medications to treat his headache today. He is now rather somnolent because of the Benadryl but still able to answer questions. So far his work-up has not revealed good reason for his behavior and general weakness. Additional studies are pending including urinalysis, alcohol level, drug screen, and CT of the chest through pelvis. The CT was added due to additional history given by family of multiple falls including falls with injury to the torso. Chest x-ray was suggestive of some pneumonia. Cefepime has been ordered. Influenza and Covid screenings were negative. Progress Note #2: Time: 17:14 Progress Note Patient states both his chest pain and headache were completely resolved with the migraine cocktail. He did mention to nursing staff he would like to go home. CT scan of the chest and abdomen showed no fractures or injury to the solid organs. No pneumonia or pulmonary contusions were revealed. I got the patient up and walked him which he was able to do on his own power and to safely. He reported no difficulty doing so. When he returned to the bed he was 98% on room air. However, after sitting for a while his oxygen saturation dropped as low as 88%. We will obtain a DuoNeb treatment to determine if this resolves his hypoxia. If this does not resolve his hypoxia, we may consider further evaluation with D-dimer. If D-dimer is elevated, we may need to repeat CT of the chest as an angiogram to rule out PE. Progress Note #3: Progress Note D-dimer was negative. Patient's son found to usable oxygen canisters at the house. He will use those until he can follow-up early this week. Patient was ultimately discharged home. Mental status was much improved and his pain was resolved prior to discharge. Initial ECG Impression Date: November 16, 2020 Initial ECG Impression Time: 14:07 Initial ECG Rate: 1407 Initial ECG Rhythm: Normal Sinus Initial ECG Intervals: Normal Initial ECG Impression: Normal Comment Normal sinus rhythm with no ST elevation or depression. No abnormal intervals or axis deviation. Diagnostic Imaging Diagonstic Imaging: Xray Plain Films/CT/US/NM/MRI: chest Comments NAME: [facility]QUIEL [facility] REC#: [id number] PT STATUS: REG ER : 1960 PHYSICIAN: BILL APONTE MD ADMIT DATE: 11/16/20/ER Draft Date of Exam:11/16/20 CHEST 1 VIEW, AP/PA ONLY Portable erect AP chest at 2:35. Indication: Chest pain The heart size is within normal limits and stable when compared to 11/12/2020. In the interval since the prior exam, a faint area of slight increased density has developed over the left lung base. This finding is suspicious for mild pneumonia/atelectasis. Clinical followup is recommended. The lungs are otherwise generally clear. The mediastinum is not widened. The osseous structures are intact. Impression: 1. The vague area of slight increased density overlying the left lung base is of uncertain etiology but suspicious for mild pneumonia/atelectasis. Clinical followup is recommended. 2. There is no acute cardiopulmonary abnormality noted otherwise. Dictated on workstation # [id number] Dict: 11/16/20 1436 Trans: 11/16/20 1443 CV [id number] Interpreted by: MARILU ART MD Reviewed: Reviewed by Me Diagonstic Imaging: CT Plain Films/CT/US/NM/MRI: chest, abdomen Comments CT viewed by me and report reviewed. See report below: NAME: EZEQUIEL [facility]ALE [facility] REC#: [id number] PT STATUS: REG ER : 1960 PHYSICIAN: BILL APONTE MD ADMIT DATE: 11/16/20/ER Draft Date of Exam:11/16/20 CT CHEST/ABDOMEN WO PROCEDURE: CT chest and abdomen without contrast. TECHNIQUE: Axial images were obtained from the thoracic inlet through the iliac crest without the administration of intravenous contrast. Auto Exposure Controls were utilized during the CT exam to meet ALARA standards for radiation dose reduction. INDICATION: Weakness, multiple falls. FINDINGS: The images through the thorax show that the heart size is borderline enlarged and that there are coronary artery calcifications evident. These findings are similar to the CTA abdomen exam of 02/22/2019. There are vague areas of increased density along the posterior aspect of each upper lobe. These findings are more likely to be chronic in nature than due to an acute abnormality. Even so, clinical follow-up is recommended. There is also mild dependent atelectasis in both lung bases. There is no consolidated pneumonia identified nor is there any evidence for a pleural effusion. There is no obvious mediastinal or hilar adenopathy. The thyroid gland was not well visualized. The aorta is not abnormally dilated. The hiatal hernia seen on the previous CTA abdomen/pelvis exam of 02/22/2019 is again evident and no different. The previous exam did note partial obstruction of the right collecting system due to a calculus in the distal right ureter. On this exam, the right renal pelvis and proximal right ureter still seem slightly dilated compared to the left. If there is clinical concern regarding a recurrent obstructive calculus, then CT of the pelvis would be recommended for further study. The kidneys are otherwise unremarkable. The liver, spleen, pancreas, adrenals, aorta and inferior vena cava show no sign of an acute abnormality. As noted previously, the gallbladder is surgically absent. There is no mass or abscess within the abdomen. The bone windows show no sign of a fracture or of a destructive lesion. IMPRESSION: 1. The vague areas of increased density along the posterior aspect of each upper lobe are more likely to be chronic in nature than due to an acute abnormality. Even so, clinical follow-up is recommended. 2. There is no acute cardiopulmonary abnormality noted otherwise. 3. There is borderline cardiomegaly and coronary artery disease. 4. There is dilatation of the right renal pelvis and the proximal right ureter compared to the left collecting system. If there is clinical concern regarding obstruction of the right collecting system, then a CT abdomen/CT pelvis exam would be recommended for further study. 5. There is no acute abnormality of the abdomen noted otherwise. Diagonstic Imaging: CT Plain Films/CT/US/NM/MRI: c-spine, head Comments CT head and cervical spine viewed by me and report reviewed. See report below: NAME: EZEQUIEL VITALE [facility] REC#: [id number] PT STATUS: REG ER : 1960 PHYSICIAN: BILL APONTE MD ADMIT DATE: 11/16/20/ER Draft Date of Exam:11/16/20 CT HEAD/CERVICAL SPINE WO PROCEDURE: CT head and CT cervical spine without contrast. TECHNIQUE: Multiple contiguous axial images were obtained through the brain and cervical spine without the use of intravenous contrast. Sagittal and coronal reformations through the cervical spine were then performed. Auto Exposure Controls were utilized during the CT exam to meet ALARA standards for radiation dose reduction. INDICATION: Trauma. Head and neck pain. FINDINGS: CT head: There is no mass, shift of the midline or hemorrhage to suggest an acute intracranial abnormality. The ventricles are not abnormally dilated and similar in size to the prior exam of 09/18/2018. The bone windows are unremarkable for a fracture or for a destructive lesion. The orbits are symmetrical and within normal limits. The sinuses are generally clear. IMPRESSION: 1. There is no evidence for an acute intracranial abnormality. 2. If clinical concern regarding an underlying abnormality persists, then MRI would be recommended for further study. CT cervical spine: The reconstructed parasagittal images show that the degenerative disc and bony disease involving the lower cervical spine, seen on the prior exam of 03/30/2015, does not appear to have progressed. There is still no high-grade central stenosis identified. There may be mild central stenosis at the C5-C6 level. There is also neural foraminal narrowing on the right at C3-C4. There is no fracture or acute bony abnormality appreciated. There is no sign of retropharyngeal edema. The thyroid gland is obscured by streak artifact. The chronic pulmonary changes involving the lung, seen previously, are again evident and no different. IMPRESSION: There is no acute bony abnormality of the cervical spine. Dictated on workstation # [id number] Dict: 11/16/20 1550 Trans: 11/16/20 1609 [facility] [id number] Interpreted by: MARILU ART MD Departure Impression Primary Impression: Chest pain Qualified Codes: R07.9 - Chest pain, unspecified Additional Impressions: Frequent falls Headache Qualified Codes: R51.9 - Headache, unspecified Hypoxia Pulmonary infiltrate Disposition: HOME, SELF-CARE Condition: Improved Departure-Patient Inst. Decision time for Depature: 19:15 Referrals: ANDRES RABAGO DO (PCP/Family) Primary Care Physician Patient Instructions: Pneumonia, Adult (DC) Add. Discharge Instructions: Use the oxygen at 1 to 2 L/min while asleep and also while awake if oxygen levels are low. Obtain a pulse oximeter [id number] and check oxygen saturations frequently. Return to care if oxygen saturations are consistently under 92% while on 1 to 2 L flow of supplemental oxygen. I am concerned about sedating medication effect. Taking multiple sedating medications such as hydrocodone and clonidine together can amplify the sedation effect and can cause low oxygen levels. This can contribute to weakness, depression, falls, etc. Please follow-up with your primary care provider soon as possible and reviewed the medications you are taking as well as the imaging reports from your visit in the ER. Complete your antibiotics as prescribed. Call your primary care provider on Tuesday to arrange for oxygen testing. This is necessary to potentially receive a prescription for supplemental oxygen at home. Call with questions or concerns. All discharge instructions reviewed with patient and/or family. Voiced understanding. Scripts Azithromycin (Azithromycin) 250 Mg Tablet 250 MG PO UD, #6 TAB TAKE 2 TABLETS ON DAY ONE THEN TAKE 1 TABLET DAILY FOR FOUR MORE DAYS Prov: BILL APONTE MD 11/16/20 Copy Copies To 1: ANDRES RABAGO JOSHUA T MD November 16, 2020 16:10
[2020-11-16] MEDS ORDERED: MEROPENEM 1,000 MG in WATER (STERILE) FOR INJECTION 20 ML IV ONE (16:15)
[2020-11-16 16:28] LABS: INR 0.9 (0.8-1.4)
[2020-11-16 16:42] LABS: TSH (THYROID ANALYZER) 1.99 UIU/ML (0.35-4.94)
--- NOTE | 2020-11-16 16:42 | Diagnostic Imaging Report ---
PROCEDURE: CT chest and abdomen without contrast. TECHNIQUE: Axial images were obtained from the thoracic inlet through the iliac crest without the administration of intravenous contrast. Auto Exposure Controls were utilized during the CT exam to meet ALARA standards for radiation dose reduction. INDICATION: Weakness, multiple falls. FINDINGS: The images through the thorax show that the heart size is borderline enlarged and that there are coronary artery calcifications evident. These findings are similar to the CTA abdomen exam of 02/22/2019. There are vague areas of increased density along the posterior aspect of each upper lobe. These findings are more likely to be chronic in nature than due to an acute abnormality, such as pneumonia. Even so, clinical follow-up is recommended. There is also mild dependent atelectasis in both lung bases. There is no consolidated pneumonia identified nor is there any evidence for a pleural effusion. There is no obvious mediastinal or hilar adenopathy. The thyroid gland was not well visualized. The aorta is not abnormally dilated. The hiatal hernia seen on the previous CTA abdomen/pelvis exam of 02/22/2019 is again evident and no different. The previous exam did note partial obstruction of the right collecting system due to a calculus in the distal right ureter. On this exam, the right renal pelvis and proximal right ureter still seem slightly dilated compared to the left. If there is clinical concern regarding a recurrent obstructive calculus, then CT of the pelvis would be recommended for further study. The kidneys are otherwise unremarkable. The liver, spleen, pancreas, adrenals, aorta and inferior vena cava show no sign of an acute abnormality. As noted previously, the gallbladder is surgically absent. There is no mass or abscess within the abdomen. The bone windows show no sign of a fracture or of a destructive lesion. IMPRESSION: 1. The vague areas of increased density along the posterior aspect of each upper lobe are more likely to be chronic in nature than due to an acute abnormality. Even so, clinical follow-up is recommended. 2. There is no acute cardiopulmonary abnormality noted otherwise. 3. There is borderline cardiomegaly and coronary artery disease. 4. There is dilatation of the right renal pelvis and the proximal right ureter compared to the left collecting system. If there is clinical concern regarding obstruction of the right collecting system, then a CT pelvis exam would be recommended for further study. 5. There is no acute abnormality of the abdomen noted otherwise. Dictated by: Dictated on workstation # [id number]
[2020-11-16 16:50] LABS: ABG OXYGEN SATURATION 99 % (94-100); ABG PCO2 45 MMHG (35-45); ABG PH 7.37 (7.37-7.43); ABG PO2 95 MMHG (79-93); ABG TCO2 27.2 MMOL/L (21.0-31.0); ALLENS TEST YES-POS
[2020-11-16 16:51] LABS: INSPIRED O2 3 L; PATIENT TEMP 36.5; VENTILATOR NO
[2020-11-16] MEDS ORDERED: RT-ALBUTEROL/IPRATROPIUM 3 ML (DUONEB) VIAL INH ONE (17:15)
[2020-11-16 17:37] LABS: BILIRUBIN,URINE NEGATIVE (NEGATIVE); CLARITY,URINE CLEAR; COLOR,URINE YELLOW; GLUCOSE, URINE (UA) NEGATIVE (NEGATIVE); KETONES,URINE NEGATIVE (NEGATIVE); LEUKOCYTE ESTERASE ,URINE NEGATIVE (NEGATIVE); NITRITE,URINE NEGATIVE (NEGATIVE); PROTEIN,URINE NEGATIVE (NEGATIVE)
[2020-11-16 18:00] LABS: AMORPHOUS SEDIMENT,UR RARE AMOR URATES /LPF; BACTERIA,URINE NEGATIVE /HPF
[2020-11-16 18:03] LABS: AMPHETAMINE SCREEN, URINE NEGATIVE (NEGATIVE); BARBITURATE SCREEN URINE NEGATIVE (NEGATIVE); BENZODIAZEPINES SCREEN URINE POSITIVE (NEGATIVE); CANNABINOID SCREEN, URINE NEGATIVE (NEGATIVE); COCAINE SCREEN URINE NEGATIVE (NEGATIVE); METHADONE STAT NEGATIVE (NEGATIVE); METHAMPHETAMINE SCREEN URINE S NEGATIVE (NEGATIVE); OPIATE SCREEN URINE POSITIVE (NEGATIVE); OXYCODONE STAT NEGATIVE (NEGATIVE); PROPOXYPHENE STAT NEGATIVE (NEGATIVE); TRICYCLIC ANTIDEPRESSANTS SCRE NEGATIVE (NEGATIVE)
[2020-11-16] MEDS ORDERED: AZIT250T12 PO (19:24)
[2020-11-16 19:28] VITALS: BP 151/78
[2020-11-20] MEDS ORDERED: PRD20T PO (12:21)
[2020-11-20] MEDS ORDERED: RT-ALBUINH IH (12:22)
== END 2020-11-16 19:33 | disposition home or self-care (01) ==
LOC: EDUNIT# 14:01 → ER 14:04
DX: R07.9 Chest pain, unspecified (principal); R51.9 Headache, unspecified; R29.6 Repeated falls; R09.02 Hypoxemia; R91.8 Other nonspecific abnormal finding of lung field; R53.1 Weakness; I11.0 Hypertensive heart disease with heart failure; I50.9 Heart failure, unspecified; I25.10 Atherosclerotic heart disease of native coronary artery without angina pectoris; E78.00 Pure hypercholesterolemia, unspecified; K21.9 Gastro-esophageal reflux disease without esophagitis; M06.9 Rheumatoid arthritis, unspecified; G89.29 Other chronic pain; M54.9 Dorsalgia, unspecified; F41.9 Anxiety disorder, unspecified; F32.9 Major depressive disorder, single episode, unspecified; F17.210 Nicotine dependence, cigarettes, uncomplicated; Z86.69 Personal history of other diseases of the nervous system and sense organs; Z88.1 Allergy status to other antibiotic agents; Z88.0 Allergy status to penicillin; Z79.82 Long term (current) use of aspirin; Z79.891 Long term (current) use of opiate analgesic; Z79.899 Other long term (current) drug therapy
CPT/HCPCS: 36600; 70450; 71045; 71250; 72125; 74150; 80053; 80306; 81000; 82805; 83605; 83735; 83874; 84443; 84484; 85025; 85379; 85610; 85730; 86141; 87040; 87088; 87636; 93005; 93041; 99284; G0480; 36415; 80320

== ENCOUNTER 2020-11-17 10:00 | Inpatient (IN) | payer MEDICARE ==
[~2020-11-17] VITALS: Ht 175.3 cm; Wt 89.4 kg
[~2020-11-17 10:00] MED LIST changes: +AZIT250T12 PO
[2020-11-17 10:22] LABS: BASOPHILS % (AUTO) 0 % (0-10); EOSINOPHILS # (AUTO) 0.1 10^3/uL (0.0-0.3); EOSINOPHILS % (AUTO) 1 % (0-10); HEMATOCRIT 30 % (40-54); HEMOGLOBIN 8.7 g/dL (13.3-17.7); LYMPHOCYTES # (AUTO) 0.5 10^3/uL (1.0-4.0); LYMPHOCYTES % (AUTO) 5 % (12-44); MEAN CORPUSCULAR HEMOGLOBIN 23 pg (25-34); MEAN CORPUSCULAR HGB CONC 29 g/dL (32-36); MEAN CORPUSCULAR VOLUME 79 fL (80-99); MONOCYTES # (AUTO) 0.5 10^3/uL (0.0-1.0); MONOCYTES % (AUTO) 6 % (0-12); NEUTROPHILS # (AUTO) 7.6 10^3/uL (1.8-7.8); NEUTROPHILS % (AUTO) 88 % (42-75); PLATELET COUNT 231 10^3/uL (130-400); WHITE BLOOD COUNT 8.6 10^3/uL (4.3-11.0)
--- NOTE | 2020-11-17 10:26 | ED General ---
General Chief Complaint: General Problems/Pain Stated Complaint: WEAKNESS Nursing Triage Note: TO ED PER EMS FROM HOME. HAD HEART CATH ON Tue RESULTS. WAS SEEN IN ED YESTERDAY FOR SOA. HAD NEG COVID AND FLU. REFUSED TO STAY. BACK TODAY BECAUSE WEAK AND FALLING. LG BRUISE ON L FLANK NOTED FROM FALL THIS AM. Nursing Sepsis Screen: No Definite Risk Source of Information: Patient, EMS Exam Limitations: No Limitations History of Present Illness Date Seen by Provider: November 17, 2020 Time Seen by Provider: 10:00 Initial Comments Patient is a 60-year-old male who presents to the emergency department today with a chief complaint of shortness of breath. Patient was seen in the emergency department yesterday and had an extensive work-up for shortness of breath and falls. No objective findings were discovered to warrant admission. He had CTs of the head neck, chest abdomen pelvis. He had x-rays and laboratory studies performed. All of these have been reviewed. Patient's D-dimer was negative, lactic acid was negative, labs were reassuring. Patient was ambulated here in the department and dropped his oxygen saturations down to about 88%. He was advised to start on some oxygen that his son found at home, Until he could follow-up with his primary care provider. this morning the patient had another fall at around 6 AM. He states that he was so short of breath he could not get out of his chair. Patient had a cardiac catheterization last Tuesday, 6 days ago. This was unremarkable for any acute ischemic disease. Patient seems somewhat depressed. According to the record from yesterday family members believe that he is not acting like himself. He apparently has been depressed since his mother in February of last year. All other review of systems reviewed and negative except as stated above. Timing/Duration: 12-24 Hours Severity: Moderate Associated Systoms: Malaise, Weakness Allergies and Home Medications Allergies Coded Allergies: penicillin G (Verified Allergy, Severe, SWELLING, 12/22/18) levofloxacin (Verified Allergy, Mild, Rash, 01/09/19) Home Medications Amlodipine Besylate 10 Mg Tablet, 10 MG PO DAILY, (Reported) Aspirin 81 Mg Tablet.dr, 81 MG PO HS, (Reported) Atorvastatin Calcium 10 Mg Tablet, 10 MG PO HS, (Reported) Azithromycin 250 Mg Tablet, 250 MG PO UD TAKE 2 TABLETS ON DAY ONE THEN TAKE 1 TABLET DAILY FOR FOUR MORE DAYS Prescribed by: BILL HUERTA on 11/16/20 192 Bupropion HCl 150 Mg Tablet.er, 150 MG PO BID, (Reported) LAST FILLED #180 08-09-18 Buspirone HCl 15 Mg Tablet, 15 MG PO TID, (Reported) Carvedilol 6.25 Mg Tablet, 6.25 MG PO BID, (Reported) Clonidine HCl 0.1 Mg Tablet, 0.1 MG PO TID, (Reported) Clopidogrel Bisulfate 75 Mg Tablet, 75 MG PO HS, (Reported) Hydrocodone Bit/Acetaminophen 1 Tab Tab, 1-2 TAB PO Q6H PRN for PAIN-MODERATE Prescribed by: MERLIN BISWAS on 12/28/18 1051 Losartan Potassium 50 Mg Tablet, 100 MG PO DAILY, (Reported) Nitroglycerin 0.4 Mg Tab.subl, 0.4 MG SL UD PRN for CHEST PAIN, (Reported) PLACE 1 TAB UNDER TONGUE NEEDED FOR CHEST PAIN; IF PAIN REMAINS AFTER 5 MINUTES, CALL 911 Omeprazole 20 Mg Capsule.dr, 20 MG PO DAILY, (Reported) Sertraline HCl 100 Mg Tablet, 100 MG PO DAILY, (Reported) TAKES ALONG WITH 25MG TABLET Sertraline HCl 25 Mg Tablet, 25 MG PO DAILY, (Reported) TAKES ALONG WITH 100MG TABLET Sucralfate 1 Gm Tablet, 1 GM PO QID Dissolve in 5-10 mL water and drink as a slurry 30 minutes before eating or drinking and before bed Prescribed by: BILL HUERTA on 01/09/19 0144 Tamsulosin HCl 0.4 Mg Cap, 0.4 MG PO AFTER DINNER, (Reported) Patient Home Medication List Home Medication List Reviewed: Yes Review of Systems Review of Systems Constitutional: see HPI EENTM: no symptoms reported Respiratory: dyspnea on exertion, short of breath Cardiovascular: no symptoms reported Gastrointestinal: no symptoms reported Genitourinary: no symptoms reported Musculoskeletal: back pain (Left flank) Skin: other (Bruising) Psychiatric/Neurological: Depressed All Other Systems Reviewed Negative Unless Noted: Yes Past Nmrzsnn-Exjxed-Hkwohc Hx Patient Social History Alcohol Use: Denies Use Number of Drinks Today: AA Alcohol Beverage of Choice: Beer Drug of Choice: HISTORY OF + IV METH USE, ALSO THC, WELL RX DRUGS Type Used: Cigarettes Former Smoker, Quit: Aug 24, 2016 2nd Hand Smoke Exposure: Yes Recent Infectious Disease Expo: No Recent Hopitalizations: No Immunizations Up To Date Tetanus Booster (TDap): Less than 5yrs PED Vaccines UTD: No Date of Influenza Vaccine: Mar 20, 2020 Seasonal Allergies Seasonal Allergies: No Past Medical History Surgeries: Yes (umb hernia, R thumb, ing hernia, 3 stents and baloon) Abdominal, Bladder Surgery, Cardiac, Coronary Stent, Gallbladder, Orthopedic, Renal, Transurethral Resection Respiratory: Yes Sleep Apnea Currently Using CPAP: No Currently Using BIPAP: No Cardiac: Yes Angina, Coronary Artery Disease, Deep Vein Thrombosis, Heart Attack, High Cholesterol, Hypertension, Valvular Heart Disease Neurological: Yes (Atypical migraine) Headaches /Migraines, TIA Reproductive Disorders: No Sexually Transmitted Disease: No HIV/AIDS: No Genitourinary: Yes Kidney Infection, Prostate Problems, Bladder Infection, Kidney Stones, UTI- Chronic Gastrointestinal: Yes Abdominal Hernia, Gastroesophageal Reflux, Chronic Diarrhea, Polyps, Hiatal Hernia, Ulcer, Gall Bladder Disease Musculoskeletal: Yes (RIGHT THUMB FX/REPAIR) Arthritis, Rheumatoid Arthritis, Back Injury, Chronic Back Pain, Fractures Endocrine: No (BUT HAS HAD HYPERGLYCEMIA AT TIMES) HEENT: Yes Eye Injury Loss of Vision: Denies Hearing Impairment: Denies Cancer: Yes Prostate Did You Recieve Any Treatments: Yes What Type of Treatment Did You: Radiation Psychosocial: Yes Sleep Difficulties, Anxiety, Depression Integumentary: No Blood Disorders: No Adverse Reaction/Blood Tranf: No (N/A) Family Medical History Arthritis 19 MOTHER ACQUISITION ANALYST G8 SISTER FH: COPD (chronic obstructive pulmonary disease) Hypercholesterolemia 19 MOTHER Hypertension 19 MOTHER Heart Disease, Hypertension Physical Exam Vital Signs Vital Signs - First Documented 11/17/20 10:00 Temp 37.7 Pulse 98 Resp 18 B/P (MAP) 150/102 (118) Pulse Ox 97 O2 Delivery Nasal Cannula O2 Flow Rate 3.00 Capillary Refill : Less Than 3 Seconds Height, Weight, BMI Height: 5'9.00" Weight: 188lbs. 0oz. [id number]; 32.00 BMI Method:Stated General Appearance: No Apparent Distress, WD/WN Eyes: Bilateral Eye Normal Inspection, Bilateral Eye PERRL, Bilateral Eye EOMI Neck: Full Range of Motion Respiratory: No Accessory Muscle Use, No Respiratory Distress, Rhonci, Wheezing (Coarse and wheezy rhonchi noted in the left lung posteriorly clear breath sounds noted on the right) Cardiovascular: Regular Rate, Rhythm Gastrointestinal: Non Tender, Soft Back: Other (Large ecchymosis left lower flank) Extremity: Normal Range of Motion, Non Tender, No Calf Tenderness Neurologic/Psychiatric: Alert, Oriented x3, No Motor/Sensory Deficits Skin: Normal Color, Warm/Dry, Other (Abrasion/mild skin tear noted to the left forearm) Focused Exam Lactate Level 11/17/20 10:35: Lactic Acid Level 1.84 Lactic Acid Level Laboratory Tests Test 11/17/20 10:35 Lactic Acid Level 1.84 MMOL/L (0.50-2.00) Progress/Results/Core Measures Suspected Sepsis Recent Fever Within 48 Hours: No Infection Criteria Present: None New/Unexplained Altered Menta: No Sepsis Screen: No Definite Risk SIRS Temperature: Pulse: 98 Respiratory Rate: 18 Laboratory Tests 11/17/20 10:16: White Blood Count 8.6 Blood Pressure 150 /102 Mean: 118 11/17/20 10:35: Lactic Acid Level 1.84 Laboratory Tests 11/17/20 10:16: Creatinine 1.51H, Platelet Count 231 Results/Orders Lab Results Laboratory Tests Test 11/17/20 10:16 11/17/20 10:35 11/17/20 11:28 Range/Units White Blood Count 8.6 4.3-11.0 10^3/uL Red Blood Count 3.81 L 4.30-5.52 10^6/uL Hemoglobin 8.7 L 13.3-17.7 g/dL Hematocrit 30 L 40-54 % Mean Corpuscular Volume 79 L 80-99 fL Mean Corpuscular Hemoglobin 23 L 25-34 pg Mean Corpuscular Hemoglobin Concent 29 L 32-36 g/dL Red Cell Distribution Width 17.7 H 10.0-14.5 % Platelet Count 231 130-400 10^3/uL Mean Platelet Volume 10.0 9.0-12.2 fL Immature Granulocyte % (Auto) 0 % Neutrophils (%) (Auto) 88 H 42-75 % Lymphocytes (%) (Auto) 5 L 12-44 % Monocytes (%) (Auto) 6 0-12 % Eosinophils (%) (Auto) 1 0-10 % Basophils (%) (Auto) 0 0-10 % Neutrophils # (Auto) 7.6 1.8-7.8 10^3/uL Lymphocytes # (Auto) 0.5 L 1.0-4.0 10^3/uL Monocytes # (Auto) 0.5 0.0-1.0 10^3/uL Eosinophils # (Auto) 0.1 0.0-0.3 10^3/uL Basophils # (Auto) 0.0 0.0-0.1 10^3/uL Immature Granulocyte # (Auto) 0.0 0.0-0.1 10^3/uL Neutrophils % (Manual) 91 % Lymphocytes % (Manual) 3 % Monocytes % (Manual) 5 % Eosinophils % (Manual) 1 % Polychromasia SLIGHT Hypochromasia MODERATE Tear Drop Cells SLIGHT Sodium Level 139 135-145 MMOL/L Potassium Level 3.8 3.6-5.0 MMOL/L Chloride Level 105 98-107 MMOL/L Carbon Dioxide Level 21 21-32 MMOL/L Anion Gap 13 5-14 MMOL/L Blood Urea Nitrogen 11 7-18 MG/DL Creatinine 1.51 H 0.60-1.30 MG/DL Estimat Glomerular Filtration Rate 48 BUN/Creatinine Ratio 7 Glucose Level 156 H 70-105 MG/DL Calcium Level 8.3 L 8.5-10.1 MG/DL Lactic Acid Level 1.84 0.50-2.00 MMOL/L Blood Gas Puncture Site L RADIAL Blood Gas Patient Temperature 37.7 Arterial Blood pH 7.37 7.37-7.43 Arterial Blood Partial Pressure CO2 46 H 35-45 MMHG Arterial Blood Partial Pressure O2 74 L 79-93 MMHG Arterial Blood HCO3 26 23-27 MMOL/L Arterial Blood Total CO2 27.4 21.0-31.0 MMOL/L Arterial Blood Oxygen Saturation 94 94-100 % Arterial Blood Base Excess 1.5 -2.5-2.5 MMOL/L Kamron Test YES-POS Blood Gas Ventilator Setting NO Blood Gas Inspired Oxygen 7L OXYMASK My Orders Orders - ROME EMERSON MD Cbc With Automated Diff (11/17/20 10:15) Basic Metabolic Panel (11/17/20 10:15) Lactic Acid Analyzer (11/17/20 10:18) Albuterol/Ipra Inhalation Soln (Duoneb I (11/17/20 10:30) Svn Small Volume Nebulizer (11/17/20 10:22) Manual Differential (11/17/20 10:16) Arterial Blood Gas (11/17/20 11:28) Procalcitonin (Pct) (11/17/20 11:43) Medications Given in ED Current Medications Medications Dose Ordered Sig/Mckenzie Route Start Time Stop Time Status Last Admin Dose Admin Albuterol/ Ipratropium 3 ml ONCE ONCE INH 11/17/20 10:30 11/17/20 10:31 DC 11/17/20 10:36 3 ML Vital Signs/I&O 11/17/20 11/17/20 10:00 10:37 Temp 37.7 Pulse 98 Resp 18 B/P (MAP) 150/102 (118) Pulse Ox 97 93 O2 Delivery Nasal Cannula Nasal Cannula O2 Flow Rate 3.00 3.00 Capillary Refill : Less Than 3 Seconds Blood Pressure Mean: 118 Progress Note : Time: 11:45 Progress Note Patient seen and evaluated, 60-year-old who presents to the emergency room with a chief complaint of shortness of breath, mild cough, generalized malaise and fatigue. Evaluation today includes a physical exam, CBC, chemistry, lactic acid and procalcitonin. Patient's extensive work-up was reviewed from yesterday. He had CTs as well as a host of laboratory studies. All of which were negative. Patient was treated for presumptive pneumonia but did not fill his azithromycin last night or today. He states he feels worse. Of note the patient desaturates down in the upper 70s low 80s on 3 L per nasal cannula especially when sleeping. He does continue to smoke cigarettes. He has been unable to utilize the oxygen tanks at home that he has because he does not have a regulator. Case was discussed with Dr. Peters on for the hospitalist service who accepts the patient for admission, inpatient status to the ICU secondary to his hypoxia. Departure Communication (Admissions) Time/Spoke to Admitting Phy: 11:[address] Fitch who accepts the patient for admission Impression Primary Impression: Dyspnea Qualified Codes: R06.02 - Shortness of breath Additional Impressions: Hypoxia COPD (chronic obstructive pulmonary disease) Qualified Codes: J44.9 - Chronic obstructive pulmonary disease, unspecified Disposition: ADMITTED INPATIENT Condition: Stable Admissions Decision to Admit Reason: Admit from ER (General) Decision to Admit/Date: November 17, 2020 Time/Decision to Admit Time: 11:48 Departure-Patient Inst. Referrals: ANDRES RABAGO DO (PCP/Family) Primary Care Physician ROME EMERSON MD November 17, 2020 10:26
[2020-11-17] MEDS ORDERED: RT-ALBUTEROL/IPRATROPIUM 3 ML (DUONEB) VIAL INH ONE (10:30)
[2020-11-17 10:33] LABS: POTASSIUM 3.8 MMOL/L (3.6-5.0)
[2020-11-17 10:34] LABS: CALCIUM 8.3 MG/DL (8.5-10.1)
[2020-11-17 10:38] LABS: CREATININE SERUM 1.51 MG/DL (0.60-1.30)
[2020-11-17 10:44] LABS: EOSINOPHILS % (MANUAL) 1 %; HYPOCHROMASIA MODERATE; LYMPHOCYTES % (MANUAL) 3 %; MONOCYTES % (MANUAL) 5 %; NEUTROPHILS % (MANUAL) 91 %; POLYCHROMASIA SLIGHT; TEAR DROP CELLS SLIGHT
[2020-11-17 11:35] LABS: ABG BASE EXCESS 1.5 MMOL/L (-2.5-2.5); ABG OXYGEN SATURATION 94 % (94-100); ABG PCO2 46 MMHG (35-45); ABG PH 7.37 (7.37-7.43); ABG PO2 74 MMHG (79-93); ABG TCO2 27.4 MMOL/L (21.0-31.0)
[2020-11-17 11:36] LABS: ALLENS TEST YES-POS; INSPIRED O2 7L OXYMASK; PATIENT TEMP 37.7; VENTILATOR NO
[2020-11-17] MEDS ORDERED: RT-ALBUTEROL/IPRATROPIUM 3 ML (DUONEB) VIAL IH SCH ×3 (14:00→16:30)
[2020-11-17] MEDS ORDERED: RT-ALBUTEROL/IPRATROPIUM 3 ML (DUONEB) VIAL IH PRN ×3 (14:00→16:30)
[2020-11-17] MEDS: NS IV 1000 ML 1,000 ML IV SCH ×2 (14:09→22:15)
[2020-11-17 14:22] VITALS: BP 150/102
--- NOTE | 2020-11-17 14:35 | History & Physical-Hospitalist ---
History of Present Illness HPI/Chief Complaint Pt is a 60yoCM with a PMH of HTN, HLD, dpression, BPH who presented to the ER due to falls and shortness of breath. He was in the ER yesterday for similar complaints and was treated with abx for pneumonia and discharged home. He continued to feel weak and fell a few times this morning prompting him to return to the ER today. He is somewhat vague in his answers and could not quantify exactly how long he has not felt well for. He had a CT of his chest and abdomen yesterday when he was in the ER with no acute abnormalities in his chest. He also had a CT of his head and neck which again had no acute pathology noted. He was found to be quite hypoxic dropping in to the 70s though. He had a negative d-dimer yesterday. Source: patient Date Seen 11/17/20 Time Seen by a Provider: 14:28 Attending Physician Lawrence Peters MD PCP Silver Hernandes DO Referring Physician Date of Admission November 17, 2020 at 11:44 Home Medications & Allergies Home Medications Reviewed patient Home Medication Reconciliation performed by pharmacy medication reconciliations obstetrics technician and/or nursing. Patients Allergies have been reviewed. Allergies Allergies Coded Allergies penicillin G (Verified Allergy, Severe, SWELLING, 12/22/18) levofloxacin (Verified Allergy, Mild, Rash, 01/09/19) Past Ftfjzok-Vmppfp-Knrunm Hx Patient Social History Tobacco Use?: Yes Tobacco type used: Cigarettes Smoking Status: Current Everyday Smoker Alcohol Use?: Yes Alcohol type: Beer Immunizations Up To Date Date of Influenza Vaccine: Mar 20, 2020 Tetanus Booster (TDap): Unknown Hepatitis A: No Hepatitis B: No PED Vaccines UTD: No Seasonal Allergies Seasonal Allergies: No Current Status Advance Directives: No Communicates: Verbally Primary Language: Bengali Preferred Spoken Language: Bengali Is interpretation needed?: No Past Medical History Surgeries: Abdominal, Bladder Surgery, Cardiac, Coronary Stent, Gallbladder, Orthopedic, Renal, Transurethral Resection Sleep Apnea Currently Using CPAP: No Currently Using BIPAP: No Angina, Coronary Artery Disease, Deep Vein Thrombosis, Heart Attack, High Cholesterol, Hypertension, Valvular Heart Disease Headaches /Migraines, TIA Sexually Transmitted Disease: No HIV/AIDS: No Kidney Infection, Prostate Problems, Bladder Infection, Kidney Stones, UTI- Chronic Abdominal Hernia, Gastroesophageal Reflux, Chronic Diarrhea, Polyps, Hiatal Hernia, Ulcer, Gall Bladder Disease Arthritis, Rheumatoid Arthritis, Back Injury, Chronic Back Pain, Fractures Eye Injury Loss of Vision: Denies Hearing Impairment: Denies Prostate Did You Recieve Any Treatments: Yes What Type of Treatment Did You: Radiation Sleep Difficulties, Anxiety, Depression Blood Disorders: No Adverse Reaction/Blood Tranf: No (N/A) Family Medical History Reviewed Nursing Family Hx Arthritis 19 MOTHER GARBAGE TRUCK DRIVER G8 SISTER FH: COPD (chronic obstructive pulmonary disease) Hypercholesterolemia 19 MOTHER Hypertension 19 MOTHER Heart Disease, Hypertension Review of Systems Constitutional: No chills, No fever; malaise, weakness EENTM: No nose congestion Respiratory: short of breath Cardiovascular: No chest pain, No edema; Hx of Intervention; No palpitations Gastrointestinal: No abdominal pain, No constipation, No diarrhea, No nausea, No vomiting Genitourinary: no symptoms reported Musculoskeletal: muscle weakness Skin: no symptoms reported Psychiatric/Neurological: No Symptoms Reported Physical Exam Physical Exam Vital Signs Vital Signs - First Documented 11/17/20 11/17/20 10:00 14:22 Temp 37.7 Pulse 98 Resp 18 B/P (MAP) 150/102 (118) Pulse Ox 97 O2 Delivery Nasal Cannula O2 Flow Rate 3.00 FiO2 32 Capillary Refill : Less Than 3 Seconds Height, Weight, BMI Height: 5'9.00" Weight: 188lbs. 0oz. 85.596547cp; 29.22 BMI Method:Stated General Appearance: Chronically ill, Obese, Other (ill appearing) HEENT: PERRL/EOMI, Moist Mucous Membranes; No Scleral Icterus (L), No Scleral Icterus (R) Neck: Normal Inspection, Supple Respiratory: No Accessory Muscle Use, Decreased Breath Sounds, Wheezing, Other (oxi-mask in place) Cardiovascular: Regular Rate, Rhythm, No Murmur Gastrointestinal: Normal Bowel Sounds, Non Tender, Soft; No Distended Extremity: No Calf Tenderness, No Pedal Edema Neurologic/Psychiatric: Alert, Oriented x3 Skin: Normal Color, Warm/Dry, Ecchymosis (left flank) Results Results/Procedures Labs Laboratory Tests 11/19/20 02:40 11/20/20 05:35 Patient resulted labs reviewed. Imaging: Reviewed Imaging Report (from yesterday's ER visit) Assessment/Plan Admission Diagnosis COPD exacerbation with acute respiratory failure Admission Status: Inpatient Order (span 2 midnights) Reason for Inpatient Admission: see below Assessment and Plan COPD exacerbation with acute hypoxic respiratory failure Admitt to ICU given clinical appearance MAT protocol Continue steroids TeleICU consulted, appreciate recs Microcytic Anemia Appears chronic though down from his cath on Tuesday FOBT trend Iron panel CKD Stage 3b Near his baseline Trend CAD Cath on Tuesday (5.26) with no intervention Continue home meds HTN HLD Continue home meds Diagnosis/Problems Diagnosis/Problems (1) CAD (coronary artery disease) Qualifiers: Coronary Disease-Associated Artery/Lesion type: [place] artery [place] vs. transplanted heart: mo[place]gan heart Associated angina: without angina Qualified Codes: I25.10 - Atherosclerotic heart disease of mo[place] coronary artery without angina pectoris (2) COPD (chronic obstructive pulmonary disease) Status: Acute Qualifiers: COPD type: COPD with acute exacerbation Qualified Codes: J44.1 - Chronic obstructive pulmonary disease with (acute) exacerbation (3) Acute respiratory failure Qualifiers: Respiratory failure complication: hypoxia Qualified Codes: J96.01 - Acute respiratory failure with hypoxia (4) CKD (chronic kidney disease) (5) BPH (benign prostatic hyperplasia) (6) Essential (primary) hypertension (7) HLD (hyperlipidemia) (8) Falls (9) Depression (10) Microcytic anemia (11) Tobacco abuse LAWRENCE PETERS MD November 17, 2020 14:35
[2020-11-17] MEDS: methylPREDNISolone 40 MG/ML (Solu-MEDROL) VIAL IV SCH (16:13)
[2020-11-17] MEDS: RT-ALBUTEROL/IPRATROPIUM 3 ML (DUONEB) VIAL IH SCH ×2 (18:22→22:15)
[2020-11-18] MEDS: methylPREDNISolone 40 MG/ML (Solu-MEDROL) VIAL IV SCH ×5 (00:48→23:17)
[2020-11-18] MEDS: RT-ALBUTEROL/IPRATROPIUM 3 ML (DUONEB) VIAL IH SCH ×6 (02:20→22:26)
[2020-11-18 02:51] LABS: BASOPHILS % (AUTO) 0 % (0-10); EOSINOPHILS % (AUTO) 0 % (0-10); HEMATOCRIT 33 % (40-54); HEMOGLOBIN 9.7 g/dL (13.3-17.7); LYMPHOCYTES # (AUTO) 0.5 10^3/uL (1.0-4.0); LYMPHOCYTES % (AUTO) 5 % (12-44); MEAN CORPUSCULAR HEMOGLOBIN 23 pg (25-34); MEAN CORPUSCULAR HGB CONC 29 g/dL (32-36); MEAN CORPUSCULAR VOLUME 79 fL (80-99); MONOCYTES # (AUTO) 0.1 10^3/uL (0.0-1.0); MONOCYTES % (AUTO) 1 % (0-12); NEUTROPHILS % (AUTO) 92 % (42-75); PLATELET COUNT 242 10^3/uL (130-400); WHITE BLOOD COUNT 8.7 10^3/uL (4.3-11.0)
[2020-11-18 03:01] LABS: CHLORIDE 107 MMOL/L (98-107); POTASSIUM 4.7 MMOL/L (3.6-5.0); SODIUM 139 MMOL/L (135-145)
[2020-11-18 03:03] LABS: CALCIUM 8.6 MG/DL (8.5-10.1); GLUCOSE 169 MG/DL (70-105)
[2020-11-18 03:05] LABS: CARBON DIOXIDE 20 MMOL/L (21-32)
[2020-11-18 03:07] LABS: CREATININE SERUM 1.22 MG/DL (0.60-1.30); GFR ESTIMATED > 60; PHOSPHORUS 2.5 MG/DL (2.3-4.7)
[2020-11-18 03:08] LABS: BUN/CREATININE RATIO 7
[2020-11-18 03:09] LABS: MAGNESIUM 2.1 MG/DL (1.6-2.4)
[2020-11-18] MEDS: NS IV 1000 ML 1,000 ML IV SCH ×4 (06:41→22:46)
--- NOTE | 2020-11-18 07:06 | Diagnostic Imaging Report ---
CHEST 1 VIEW, AP/PA ONLY Indication: Shortness of breath Comparison: 11/16/2020 Findings: Small right pleural effusion is noted. Right basilar bandlike opacities have developed. No pneumothorax or mediastinal shift. Stable cardiac silhouette. Impression: 1. New small right pleural effusion. 2. New right basilar subsegmental atelectasis. Dictated by: Dictated on workstation # [id number]
--- NOTE | 2020-11-18 08:29 | Progress Note - Hospitalist ---
Subjective HPI/CC On Admission Date Seen by Provider: Nov 18, 2020 Time Seen by Provider: 08:25 Pt is a 60yoCM with a PMH of HTN, HLD, dpression, BPH who presented to the ER due to falls and shortness of breath. He was in the ER yesterday for similar complaints and was treated with abx for pneumonia and discharged home. He continued to feel weak and fell a few times this morning prompting him to return to the ER today. He is somewhat vague in his answers and could not quantify exactly how long he has not felt well for. He had a CT of his chest and abdomen yesterday when he was in the ER with no acute abnormalities in his chest. He also had a CT of his head and neck which again had no acute pathology noted. He was found to be quite hypoxic dropping in to the 70s though. He had a negative d-dimer yesterday. Subjective/Events-last exam Pt was sleeping when I entered room with blanket over face. He was very resistant to talking to me and covered himself back up. No ROS possible as he would not participate. Focused Exam Lactate Level Objective Exam Vital Signs Vital Signs Date Time Temp Pulse Resp B/P (MAP) Pulse Ox O2 Delivery O2 Flow Rate FiO2 11/20/20 12:29 36.6 64 20 181/88 (119) 93 Room Air 11/20/20 06:38 21 11/20/20 04:00 3.00 Capillary Refill : Less Than 3 Seconds General Appearance: No Apparent Distress, Chronically ill Respiratory: No Respiratory Distress, Decreased Breath Sounds Cardiovascular: Regular Rate, Rhythm, No Murmur Neurologic/Psychiatric: Alert Results/Procedures Lab Laboratory Tests 11/20/20 05:35 Patient resulted labs reviewed. Imaging: Reviewed Imaging Report (from yesterday's ER visit) Assessment/Plan Assessment and Plan Assess & Plan/Chief Complaint COPD exacerbation with acute hypoxic respiratory failure Continue on steroids MAT protocol TeleICU consulted, appreciate recs IS added Discussed with TeleICU this AM IS added Falls Debility PT/OT Consider IRU Microcytic Anemia Up today FOBT trend Iron panel pending GERI Improved this AM, may have had slight GERI on previous admission CAD Cath on Tuesday (5.26) with no intervention Continue home meds HTN HLD Continue home meds Diagnosis/Problems Diagnosis/Problems (1) CAD (coronary artery disease) Qualifiers: Coronary Disease-Associated Artery/Lesion type: [place] artery [place] vs. transplanted heart: [place] heart Associated angina: without angina Qualified Codes: I25.10 - Atherosclerotic heart disease of [place] coronary artery without angina pectoris (2) COPD (chronic obstructive pulmonary disease) Status: Acute Qualifiers: COPD type: COPD with acute exacerbation Qualified Codes: J44.1 - Chronic obstructive pulmonary disease with (acute) exacerbation (3) Acute respiratory failure Qualifiers: Respiratory failure complication: hypoxia Qualified Codes: J96.01 - Acute respiratory failure with hypoxia (4) CKD (chronic kidney disease) (5) BPH (benign prostatic hyperplasia) (6) Essential (primary) hypertension (7) HLD (hyperlipidemia) (8) Falls (9) Depression (10) Microcytic anemia (11) Tobacco abuse LAWRENCE KNOTT MD Nov 18, 2020 08:28
--- NOTE | 2020-11-18 10:25 | Physical Therapy Evaluation ---
PT Evaluation-General Medical Diagnosis Admission Date November 17, 2020 at 11:44 Medical Diagnosis: dyspnea/hypoxia/COPD Onset Date: November 17, 2020 Therapy Diagnosis Therapy Diagnosis: debility Height/Weight Height (Feet): 5 Height (Inches): 9.00 Weight (Pounds): 188 Weight (Ounces): 0 Precautions Precautions/Isolations: Fall Prevention, Standard Precautions Referral Physician: Fran Reason for Referral: Evaluation/Treatment Medical History Pertinent Medical History: Alcoholism, CAD, HTN, [place], Smoking Additional Medical History drug use Current History EMS secondary to fall and SOA (heart cath 11/12/20 per report) Reviewed History: Yes Social History Home: Single Level Current Living Status: Alone Prior Prior Level of Function SCALE: Activities may be completed with or without assistive devices. 2-Inmdeysuej-hkuvuny completes the activity by him/herself with no assistance from a helper. 5-Set-up or Clean-up Assistance-helper sets up or cleans up; patient completes activity. [place] assists only prior to or following the activity. 4-Supervision or Touching Assistance-helper provides verbal cues and/or touching/steadying and/or contact guard assistance as patient completes activity. Assistance may be provided throughout the activity or intermittently. 3-Partial/Moderate Assistance-helper does LESS THAN HALF the effort. [place] lifts, holds or supports trunk or limbs, but provides less than half the effort. 2-Substantial/Maximal Assistance-helper does MORE THAN HALF the effort. [place] lifts or holds trunk or limbs and provides more than half the effort. 0-Tdtoznthl-tjjcfy does ALL the effort. Patient does none of the effort to complete the activity. Or, the assistance of 2 or more helpers is required for the patient to complete the activity. If activity was not attempted, code reason: 7-Patient Refused. 9-Not Applicable-not attempted and the patient did not perform the activity befo re the current illness, exacerbation or injury. 10-Not Attempted due to Environmental Limitations-(lack of equipment, weather re straints, etc.). 88-Not Attempted due to Medical Conditions or Safety Concerns. Bed Mobility: 6 Transfers (B,C,W/C): 6 Gait: 6 Stairs: 6 Indoor Mobility (Ambulation): Independent Stairs: Independent Prior Devices Use: Walker PT Evaluation-Current Subjective Patient agrees to PT. Objective Patient Orientation: Person, Time, Situation Attachments: Oxygen, IV ROM/Strength ROM Lower Extremities bilateral LE WFL Strength Lower Extremities 4/5 grossly bilateral LE Integumentary/Posture Integumentary refer to nursing notes Bowel Incontinence: No Bladder Incontinence: Yes Posture WFL Neuromuscular (Tone, Coordination, Reflexes) grossly intact Sensory Vision: Functional Hearing: Impaired Transfers Roll Left to Right (QC): 6 Sit to Lying (QC): 6 Lying to Sitting/Side of Bed(Q: 6 Sit to Stand (QC): 6 Chair/Xpp-mc-Ftxtb Xfer(QC): 6 Gait Does the Patient Walk?: Yes Mode of Locomotion: Walk Anticipated Mode of Locomotion: Walk Walk 10 feet (QC): 4 (SBA) Walk 50 ft with 2 Turns(QC): 4 (SBA) Gait Assistive Device: FWW Comments/Gait Description functional gait sequence Wheelchair Training Does the Pt Use a Wheelchair?: No Balance Sitting Static: Normal Sitting Dynamic: Normal Standing Static: Normal Standing Dynamic: Normal Picking up an Object (QC): 6 Assessment/Needs 60 y.o. male, will be seen short term by skilled PT to address functional streng th and mobility to ensure safe return to home at maximum LOF. Rehab Potential: Fair Post Rehab Potential-Barriers: compliance PT Supply Chain Planner Goals Skilled Nursing Goals PT Supply Chain Planner Goals Time Frame: Nov 22, 2020 Roll Left & Right (QC): 6 Sit to Lying (QC): 6 Lying-Sitting on Side/Bed(QC): 6 Sit to Stand (QC): 6 Chair/Ybg-vj-Trtkh Xfer(QC): 6 Toilet Transfer (QC): 6 Does the Patient Walk: Yes Walk 10 feet (QC): 6 Walk 50ft with 2 Turns (QC): 6 Walk 150 ft (QC): 6 1 Step (curb) (QC): 6 4 Steps (QC): 6 PT Plan Problem List Problem List: Activity Tolerance, Functional Strength, Safety, Gait Treatment/Plan Treatment Plan: Continue Plan of Care Treatment Plan: Education, Functional Activity Ebony, Functional Strength, Gait, Safety, Therapeutic Exercise, Transfers Treatment Duration: Nov 22, 2020 Frequency: 5 times per week Estimated Hrs Per Day: .25 hour per day Patient and/or Family Agrees t: Yes Time/GCodes Time In: 825 Time Out: 841 Total Billed Treatment Time: 16 Total Billed Treatment 1 visit EVModC 16 min MEKA PIMENTEL PT Nov 18, 2020 10:25
--- NOTE | 2020-11-18 11:47 | Occ Therapy Progress Note ---
Therapy Progress Note OT order received, chart reviewed. Attempted treatment with pt. Pt. asleep in bed. Sat monitor beeping and showing 84-86%. OT attempts to wake pt. Pt. wakes briefly to sit up in bed independently for OT to manage lines and untangle sat monitor. Pt. lays back down and closes eyes again. Does not reply or acknowledge OT again, even with multiple attempts. OT stays to monitor sats after untangling lines. Sats at 91%. All needs are met and OT will come back as time allows. 1, visit x 5minutes [id number] JEFFY STOKES OT Nov 18, 2020 11:47
[2020-11-18] MEDS ORDERED: FAMOTIDINE 20 MG (PEPCID) TABLET PO NR (16:00)
--- NOTE | 2020-11-18 16:05 | Pulmonary Progress Note ---
Subjective Date Seen by a Provider: Nov 18, 2020 Time Seen by a Provider: 16:04 Sepsis Event Evaluation Height, Weight, BMI Height: 5'9.00" Weight: 188lbs. 0oz. 85.091572xd; 29.22 BMI Method:Stated Focused Exam Lactate Level 11/17/20 10:35: Lactic Acid Level 1.84 Exam Exam Vital Signs Date Time Temp Pulse Resp B/P (MAP) Pulse Ox O2 Delivery O2 Flow Rate FiO2 11/18/20 15:00 84 8 187/95 (125) 93 Nasal Cannula 3.00 11/18/20 14:23 93 Nasal Cannula 3.00 11/18/20 14:00 85 20 196/94 (128) 92 Nasal Cannula 3.00 11/18/20 13:00 74 11/18/20 13:00 77 21 165/75 (105) 93 Nasal Cannula 3.00 11/18/20 12:00 37.0 11/18/20 12:00 High Flow N/C 3.00 11/18/20 12:00 76 14 180/99 (126) 94 Nasal Cannula 3.00 11/18/20 11:00 84 18 188/83 (118) 92 Nasal Cannula 3.00 11/18/20 10:34 Nasal Cannula 3.00 11/18/20 10:30 98 Nasal Cannula 5.00 11/18/20 10:00 78 19 181/100 (127) 96 High Flow N/C 5.00 11/18/20 09:00 86 19 150/92 (111) 93 High Flow N/C 5.00 11/18/20 08:00 High Flow N/C 2.00 11/18/20 08:00 81 18 174/76 (108) 89 High Flow N/C 5.00 11/18/20 08:00 36.9 11/18/20 07:00 76 11 164/100 (121) 96 High Flow N/C 5.00 11/18/20 07:00 81 11/18/20 06:35 96 Nasal Cannula 7.00 11/18/20 06:00 80 18 174/109 (150) 95 High Flow N/C 5.00 11/18/20 05:00 81 19 170/100 (136) 91 High Flow N/C 5.00 11/18/20 04:17 36.3 11/18/20 04:00 High Flow N/C 5.00 11/18/20 04:00 85 12 171/93 (121) High Flow N/C 5.00 11/18/20 03:00 73 18 158/82 (107) 95 High Flow N/C 5.00 11/18/20 02:21 93 Nasal Cannula 5.00 11/18/20 02:00 82 20 165/92 (116) 93 High Flow N/C 5.00 11/18/20 01:00 78 17 158/90 (112) 96 High Flow N/C 5.00 11/18/20 01:00 78 11/18/20 00:48 94 High Flow N/C 5.00 11/18/20 00:00 OxyMask 6.00 11/18/20 00:00 93 11 156/107 (123) OxyMask 5.00 11/17/20 23:57 36.8 11/17/20 23:06 89 23 153/85 (107) OxyMask 5.00 11/17/20 22:15 92 OxyMask 5.00 11/17/20 22:04 89 23 165/97 (119) 94 OxyMask 5.00 11/17/20 20:00 OxyMask 6.00 11/17/20 19:45 90 19 154/88 (112) 94 OxyMask 5.00 11/17/20 19:45 37.6 11/17/20 19:30 87 22 159/93 (127) 95 OxyMask 5.00 11/17/20 19:15 82 25 167/83 (109) 95 OxyMask 5.00 11/17/20 19:00 78 19 151/88 (109) 97 OxyMask 5.00 11/17/20 19:00 80 11/17/20 18:22 93 OxyMask 5.00 11/17/20 18:00 77 17 148/85 (106) 88 Nasal Cannula 5.00 11/17/20 17:15 OxyMask 6.00 11/17/20 17:00 75 18 133/70 (91) 93 Nasal Cannula 5.00 I & O 11/18/20 07:00 Intake Total 2540 ml Output Total 1150 ml Balance 1390 ml Height & Weight Height: 5'9.00" Weight: 188lbs. 0oz. 85.844618fj; 29.22 BMI Method:Stated General Appearance: No Apparent Distress, Chronically ill HEENT: PERRL/EOMI, Moist Mucous Membranes; No Scleral Icterus (L), No Scleral Icterus (R) Neck: Normal Inspection, Supple Respiratory: No Respiratory Distress, Decreased Breath Sounds Cardiovascular: Regular Rate, Rhythm, No Murmur Capillary Refill: Less Than 3 Seconds Extremity: No Calf Tenderness, No Pedal Edema Neurologic/Psychiatric: Alert Skin: Normal Color, Warm/Dry, Ecchymosis (left flank) Results Lab Laboratory Tests 11/17/20 10:16 11/18/20 02:34 Assessment/Plan Assessment/Plan Available chart/ vitals / labs / Images reviewed Video assessment done using teleICU camera Discussed with RN Events overnight : Afebrile hemodynamically stable, no pressors, I/O = pos 900 Drips: Hospital course: (11/17) 60m admitted for hypoxia and COPD exacerbation ( 11/16 CTH , CTCh, Ctabd - negative on Er visit 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 Discussed with Dr. Peters Discussed with RN to reach out if any questions or concerns A total of 15 minutes of critical care time was devoted to this patient today, required to treat and/or prevent further deterioration of critical care condition ( as above ) . STACIE PRESLEY MD Nov 18, 2020 16:05
[2020-11-18] MEDS: FAMOTIDINE 20MG/2ML IV (PEPCID) IVP SCH (16:10)
[2020-11-18] MEDS: ENOXAPARIN 40 MG/0.4 ML (LOVENOX) SYR SC SCH (16:10)
[2020-11-18] MEDS ORDERED: LABETALOL HCL 20 MG/4 ML VIAL IV PRN (23:00)
[2020-11-18] MEDS: ACETAMINOPHEN 325 MG TABLET PO PRN (23:18)
[2020-11-19] MEDS: RT-ALBUTEROL/IPRATROPIUM 3 ML (DUONEB) VIAL IH SCH ×6 (02:32→21:44)
[2020-11-19 02:59] LABS: BASOPHILS % (AUTO) 0 % (0-10); EOSINOPHILS % (AUTO) 0 % (0-10); HEMATOCRIT 32 % (40-54); HEMOGLOBIN 9.3 g/dL (13.3-17.7); LYMPHOCYTES # (AUTO) 0.5 10^3/uL (1.0-4.0); LYMPHOCYTES % (AUTO) 4 % (12-44); MEAN CORPUSCULAR HEMOGLOBIN 23 pg (25-34); MEAN CORPUSCULAR HGB CONC 29 g/dL (32-36); MEAN CORPUSCULAR VOLUME 78 fL (80-99); MEAN PLATELET VOLUME 9.6 fL (9.0-12.2); MONOCYTES # (AUTO) 0.4 10^3/uL (0.0-1.0); MONOCYTES % (AUTO) 3 % (0-12); NEUTROPHILS # (AUTO) 11.2 10^3/uL (1.8-7.8); NEUTROPHILS % (AUTO) 92 % (42-75); PLATELET COUNT 271 10^3/uL (130-400); WHITE BLOOD COUNT 12.2 10^3/uL (4.3-11.0)
[2020-11-19 03:13] LABS: CALCIUM 8.5 MG/DL (8.5-10.1)
[2020-11-19 03:17] LABS: PHOSPHORUS 2.3 MG/DL (2.3-4.7)
[2020-11-19 03:18] LABS: CREATININE SERUM 1.26 MG/DL (0.60-1.30)
[2020-11-19] MEDS: NS IV 1000 ML 1,000 ML IV SCH (06:43)
[2020-11-19] MEDS: methylPREDNISolone 40 MG/ML (Solu-MEDROL) VIAL IV SCH ×2 (06:44→12:38)
--- NOTE | 2020-11-19 08:17 | Progress Note - Hospitalist ---
Subjective HPI/CC On Admission Date Seen by Provider: Nov 19, 2020 Time Seen by Provider: 08:12 Pt is a 60yoCM with a PMH of HTN, HLD, dpression, BPH who presented to the ER due to falls and shortness of breath. He was in the ER yesterday for similar complaints and was treated with abx for pneumonia and discharged home. He continued to feel weak and fell a few times this morning prompting him to return to the ER today. He is somewhat vague in his answers and could not quantify exactly how long he has not felt well for. He had a CT of his chest and abdomen yesterday when he was in the ER with no acute abnormalities in his chest. He also had a CT of his head and neck which again had no acute pathology noted. He was found to be quite hypoxic dropping in to the 70s though. He had a negative d-dimer yesterday. Subjective/Events-last exam Pt reports doing well today. Breathing better. Actually asking to go home. Focused Exam Lactate Level Objective Exam Vital Signs Vital Signs Date Time Temp Pulse Resp B/P (MAP) Pulse Ox O2 Delivery O2 Flow Rate FiO2 11/20/20 12:29 36.6 64 20 181/88 (119) 93 Room Air 11/20/20 06:38 21 11/20/20 04:00 3.00 Capillary Refill : Less Than 3 Seconds General Appearance: No Apparent Distress, WD/WN Respiratory: Lungs Clear, No Respiratory Distress Cardiovascular: Regular Rate, Rhythm, No Murmur Neurologic/Psychiatric: Alert, Oriented x3 Results/Procedures Lab Laboratory Tests 11/20/20 05:35 Patient resulted labs reviewed. Imaging: Reviewed Imaging Report (from yesterday's ER visit) Assessment/Plan Assessment and Plan Assess & Plan/Chief Complaint COPD exacerbation with acute hypoxic respiratory failure Continue on steroids switch to oral MAT protocol TeleICU consulted, appreciate recs IS added Transfer to 4th Home oxygen study Falls Debility PT/OT Microcytic Anemia Up today FOBT trend Iron panel reveals defiency- will need outpatient colonoscopy GERI Stable CAD Cath on Tuesday (5.26) with no intervention Continue home meds HTN HLD Continue home meds Diagnosis/Problems Diagnosis/Problems (1) CAD (coronary artery disease) Qualifiers: Coronary Disease-Associated Artery/Lesion type: [place] artery [place] vs. transplanted heart: [place] heart Associated angina: without angina Qualified Codes: I25.10 - Atherosclerotic heart disease of [place] coronary artery without angina pectoris (2) COPD (chronic obstructive pulmonary disease) Status: Acute Qualifiers: COPD type: COPD with acute exacerbation Qualified Codes: J44.1 - Chronic obstructive pulmonary disease with (acute) exacerbation (3) Acute respiratory failure Qualifiers: Respiratory failure complication: hypoxia Qualified Codes: J96.01 - Acute respiratory failure with hypoxia (4) CKD (chronic kidney disease) (5) BPH (benign prostatic hyperplasia) (6) Essential (primary) hypertension (7) HLD (hyperlipidemia) (8) Falls (9) Depression (10) Microcytic anemia (11) Tobacco abuse LAWRENCE KNOTT MD Nov 19, 2020 08:17
[2020-11-19] MEDS: FAMOTIDINE 20MG/2ML IV (PEPCID) IVP SCH (08:25)
[2020-11-19] MEDS: buPROPion SR 150 MG (WELLBUTRIN SR) TAB PO SCH ×2 (08:46→20:15)
[2020-11-19] MEDS: busPIRone 15 MG (BUSPAR) TABLET PO SCH ×3 (08:46→20:15)
[2020-11-19] MEDS: SERTRALINE 50 MG (ZOLOFT) TABLET PO SCH (08:47)
[2020-11-19] MEDS: SERTRALINE 100 MG (ZOLOFT) TAB PO SCH (08:47)
[2020-11-19] MEDS: TAMSULOSIN 0.4 MG (FLOMAX) CAP PO SCH (08:47)
[2020-11-19] MEDS: LOSARTAN 100 MG (COZAAR) TABLET PO SCH (08:48)
[2020-11-19] MEDS ORDERED: RT-ALBUINH IH (08:58)
--- NOTE | 2020-11-19 09:00 | Occupational Therapy Eval ---
OT Evaluation-General/PLF Medical Diagnosis Admission Date November 17, 2020 at 11:44 Medical Diagnosis: dyspnea/hypoxia/COPD Onset Date: November 17, 2020 Therapy Diagnosis Therapy Diagnosis: Weakness,Decreased ADL skills Height/Weight Height (Feet): 5 Height (Inches): 9.00 Weight (Pounds): 188 Weight (Ounces): 0 Precautions Precautions/Isolations: Fall Prevention, Standard Precautions Weight Bear Status Weight Bearing Restriction: Weight Bearing/Tolerated Referral Physician: Fran Referral Reason: Activity Tolerance, Self Care, Evaluation/Treatment, Str engthening/ROM Medical History Pertinent Medical History: Alcoholism, CAD, HTN, [place], Smoking Additional Medical History HLD, depression Current History Pt. came to ER with pneumonia. Reviewed History: Yes Social History Home: Single Level Current Living Status: Alone Entry Into Home: Ramp ADL-Prior Level of Function SCALE: Activities may be completed with or without assistive devices. 1-Xjjrauzpua-mmtxbrg completes the activity by him/herself with no assistance from a helper. 5-Set-up or Clean-up Assistance-helper sets up or cleans up; patient completes activity. [place] assists only prior to or following the activity. 4-Supervision or Touching Assistance-helper provides verbal cues and/or touching/steadying and/or contact guard assistance as patient completes activity. Assistance may be provided throughout the activity or intermittently. 3-Partial/Moderate Assistance-helper does LESS THAN HALF the effort. [place] lift s, holds or supports trunk or limbs, but provides less than half the effort. 2-Substantial/Maximal Assistance-helper does MORE THAN HALF the effort. [place] lifts or holds trunk or limbs and provides more than half the effort. 0-Xwjfwhpfi-vlvavu does ALL the effort. Patient does none of the effort to complete the activity. Or, the assistance of 2 or more helpers is required for the patient to complete the activity. If activity was not attempted, code reason: 7-Patient Refused. 9-Not Applicable-not attempted and the patient did not perform the activity before the current illness, exacerbation or injury. 10-Not Attempted due to Environmental Limitations-(lack of equipment, weather restraints, etc.). 88-Not Attempted due to Medical Conditions or Safety Concerns. ADL PLOF Comments Pt. states that he was independent with daily tasks. He has a walker, but doesn't use it. His home was handicap accessible for his mother, who in February. He reports that his daughter in June. Pt. currently lives alone but his son occasionally lives with him. He said his son has his truck, but that he gets it back occasionally. He does his own grocery shopping. Self Care: Independent Functional Cognition: Independent DME/Equipment: Bath Chair, Shower, Tub/Shower Drive Self: Yes OT Current Status Subjective No pain reported. Mental Status/Objective Patient Orientation: Person, Place, Time, Situation Attachments: IV Current Upper Extremity ROM WFL Upper Extremity Strength WFL ADL-Treatment Eating (QC): 6 Oral Hygiene (QC): 6 Shower/Bathe Self (QC): 5 (Set up in chair to sponge bathe. Pt. able to stand and wash all parts.) On/Off Footwear (QC): 6 (Slipper socks.) Other Treatments Pt. up in chair. Agrees to sponge bathe, brush hair and teeth. Pt. able to stand at walker with no LOB and wash christophe area. Pt. able to doff/don fresh slipper socks seated. Brushed teeth seated. All needs met at end of session. Pt. with chair alarm and call light. Education OT Patient Education: Correct positioning, Modified ADL techniques, Progress toward Goal/Update tx plan, Purpose of tx/functional activities, Reviewed precautions, Rehab process, Transfer techniques Teaching Recipient: Patient Teaching Methods: Demonstration, Discussion Response to Teaching: Verbalize Understanding, Return Demonstration OT Retirement Goals Emergency Planner Goals Time Frame: Nov 26, 2020 Eating (QC): 6 Oral Hygiene (QC): 6 Toileting Hygiene (QC): 6 Shower/Bathe Self (QC): 6 Upper Body Dressing (QC): 6 Lower Body Dressing (QC): 6 On/Off Footwear (QC): 6 Additional Goals: 1-Demonstrate ADL Tasks, 2-Verbalize Understanding, 3-I mproveStrength/Ebony 1=Demonstrate adherence to instructed precautions during ADL tasks. 2=Patient will verbalize/demonstrate understanding of assistive devices/modifications for ADL. 3=Patient will improve strength/tolerance for activity to enable patient to perform ADL's. OT Education/Plan Problem List/Assessment Assessment: Decreased Activ Tolerance Discharge Recommendations Plan/Recommendations: Continue POC Therapy Discharge Recommendati: Home & Family Treatment Plan/Plan of Care Treatment,Training & Education: Yes Patient would benefit from OT for education, treatment and training to promote independence in ADL's, mobility, safety and/or upper extremity function for ADL's. Plan of Care: ADL Retraining, Functional Mobility Treatment Duration: Nov 26, 2020 Frequency: 5 times per week Estimated Hrs Per Day: .25 hour per day Agreement: Yes Rehab Potential: Good Time/GCodes Start Time: 08:25 Stop Time: 08:50 Total Time Billed (hr/min): 25 Billed Treatment Time 1, EVM x 10minutes, ADL x 15minutes JEFFY STOKES OT Nov 19, 2020 09:00
[2020-11-19] MEDS ORDERED: hydrALAZINE (APESOLINE) 20 MG/ML VIAL ONE ×2 (09:29→17:24)
[2020-11-19] MEDS ORDERED: hydrALAZINE (APESOLINE) 20 MG/ML VIAL IV ONE (09:45)
--- NOTE | 2020-11-19 09:59 | Physical Therapy Daily Note ---
PT Daily Note-Current Subjective Patient agrees to PT. No c/o. Mental Status Patient Orientation: Normal For Age Attachments: Oxygen, IV Transfers SCALE: Activities may be completed with or without assistive devices. 8-Vpyttatzne-ylfevye completes the activity by him/herself with no assistance from a helper. 5-Set-up or Clean-up Assistance-helper sets up or cleans up; patient completes activity. [place] assists only prior to or following the activity. 4-Supervision or Touching Assistance-helper provides verbal cues and/or touching/steadying and/or contact guard assistance as patient completes activity. Assistance may be provided throughout the activity or intermittently. 3-Partial/Moderate Assistance-helper does LESS THAN HALF the effort. [place] lift s, holds or supports trunk or limbs, but provides less than half the effort. 2-Substantial/Maximal Assistance-helper does MORE THAN HALF the effort. [place] lifts or holds trunk or limbs and provides more than half the effort. 3-Tngovdojf-zukjga does ALL the effort. Patient does none of the effort to complete the activity. Or, the assistance of 2 or more helpers is required for the patient to complete the activity. If activity was not attempted, code reason: 7-Patient Refused. 9-Not Applicable-not attempted and the patient did not perform the activity before the current illness, exacerbation or injury. 10-Not Attempted due to Environmental Limitations-(lack of equipment, weather restraints, etc.). 88-Not Attempted due to Medical Conditions or Safety Concerns. Lying to Sitting/Side of Bed(Q: 6 Sit to Stand (QC): 5 Chair/Xtn-mg-Oprcd Xfer(QC): 5 Gait Training Does the Patient Walk?: Yes Distance: 15' Walk 10 feet (QC): 4 Gait Assistive Device: FWW Exercises Seated Therapy Exercises: Ankle pumps, Long arc quads, Hip flexion Seated Reps: 15 Assessment Patient up in recliner with OT present. Increase activity as allow and tolerated by patient. PT Mop Worker Goals M[facility] Goals PT Mop Worker Goals Time Frame: Nov 22, 2020 Roll Left & Right (QC): 6 Sit to Lying (QC): 6 Lying-Sitting on Side/Bed(QC): 6 Sit to Stand (QC): 6 Chair/Pxd-qb-Qovqq Xfer(QC): 6 Toilet Transfer (QC): 6 Does the Patient Walk: Yes Walk 10 feet (QC): 6 Walk 50ft with 2 Turns (QC): 6 Walk 150 ft (QC): 6 1 Step (curb) (QC): 6 4 Steps (QC): 6 PT Plan Treatment/Plan Treatment Plan: Continue Plan of Care Treatment Plan: Education, Functional Activity Ebony, Functional Strength, Gait, Safety, Therapeutic Exercise, Transfers Treatment Duration: Nov 22, 2020 Frequency: 5 times per week Estimated Hrs Per Day: .25 hour per day Patient and/or Family Agrees t: Yes Time/GCodes Time In: 812 Time Out: 825 Total Billed Treatment Time: 13 Total Billed Treatment 1 visit FA 13 min MEKA PIMENTEL PT Nov 19, 2020 09:59
[2020-11-19] MEDS: ACETAMINOPHEN 325 MG TABLET PO PRN ×2 (11:12→20:15)
[2020-11-19] MEDS: cloNIDine 0.1 MG (CATAPRES) TAB PO SCH ×2 (11:38→20:15)
[2020-11-19 15:10] LABS: AMPHETAMINE SCREEN, URINE NEGATIVE (NEGATIVE); BARBITURATE SCREEN URINE NEGATIVE (NEGATIVE); BENZODIAZEPINES SCREEN URINE POSITIVE (NEGATIVE); CANNABINOID SCREEN, URINE NEGATIVE (NEGATIVE); COCAINE SCREEN URINE NEGATIVE (NEGATIVE); METHADONE STAT NEGATIVE (NEGATIVE); METHAMPHETAMINE SCREEN URINE S NEGATIVE (NEGATIVE); OPIATE SCREEN URINE NEGATIVE (NEGATIVE); OXYCODONE STAT NEGATIVE (NEGATIVE); PROPOXYPHENE STAT NEGATIVE (NEGATIVE); TRICYCLIC ANTIDEPRESSANTS SCRE NEGATIVE (NEGATIVE)
[2020-11-19] MEDS: ENOXAPARIN 40 MG/0.4 ML (LOVENOX) SYR SC SCH (16:58)
[2020-11-19] MEDS ORDERED: hydrALAZINE (APESOLINE) 20 MG/ML VIAL IV PRN (17:15)
[2020-11-19] MEDS ORDERED: PANTOPRAZOLE 40 MG (PROTONIX) TAB PO ONE (17:24)
[2020-11-19] MEDS ORDERED: PANTOPRAZOLE 40 MG (PROTONIX) TAB PO NR (17:30)
[2020-11-19] MEDS ORDERED: ATORVASTATIN 10 MG TABLET PO SCH (21:00)
[2020-11-19] MEDS ORDERED: ASPIRIN E.C. 81 MG (ECOTRIN) TAB PO SCH (21:00)
[2020-11-20] MEDS: RT-ALBUTEROL/IPRATROPIUM 3 ML (DUONEB) VIAL IH SCH ×2 (02:32→06:36)
[2020-11-20 05:56] LABS: BASOPHILS % (AUTO) 0 % (0-10); EOSINOPHILS % (AUTO) 0 % (0-10); HEMATOCRIT 29 % (40-54); HEMOGLOBIN 8.5 g/dL (13.3-17.7); LYMPHOCYTES # (AUTO) 1.2 10^3/uL (1.0-4.0); LYMPHOCYTES % (AUTO) 14 % (12-44); MEAN CORPUSCULAR HEMOGLOBIN 23 pg (25-34); MEAN CORPUSCULAR HGB CONC 30 g/dL (32-36); MEAN CORPUSCULAR VOLUME 77 fL (80-99); MEAN PLATELET VOLUME 9.4 fL (9.0-12.2); MONOCYTES # (AUTO) 0.6 10^3/uL (0.0-1.0); MONOCYTES % (AUTO) 7 % (0-12); NEUTROPHILS # (AUTO) 6.8 10^3/uL (1.8-7.8); NEUTROPHILS % (AUTO) 79 % (42-75); PLATELET COUNT 246 10^3/uL (130-400); WHITE BLOOD COUNT 8.7 10^3/uL (4.3-11.0)
[2020-11-20 06:15] LABS: CHLORIDE 104 MMOL/L (98-107); POTASSIUM 3.5 MMOL/L (3.6-5.0); SODIUM 142 MMOL/L (135-145)
[2020-11-20 06:16] LABS: CALCIUM 8.2 MG/DL (8.5-10.1)
[2020-11-20 06:17] LABS: GLUCOSE 131 MG/DL (70-105)
[2020-11-20 06:18] LABS: CARBON DIOXIDE 29 MMOL/L (21-32)
[2020-11-20 06:21] LABS: CREATININE SERUM 1.19 MG/DL (0.60-1.30); GFR ESTIMATED > 60; PHOSPHORUS 2.5 MG/DL (2.3-4.7)
[2020-11-20 06:22] LABS: BUN/CREATININE RATIO 13
[2020-11-20 06:24] LABS: MAGNESIUM 1.9 MG/DL (1.6-2.4)
[2020-11-20] MEDS ORDERED: predniSONE 20 MG TAB PO SCH (07:00)
[2020-11-20] MEDS ORDERED: PANTOPRAZOLE 40 MG (PROTONIX) TAB PO SCH (09:00)
[2020-11-20] MEDS: TAMSULOSIN 0.4 MG (FLOMAX) CAP PO SCH (09:07)
[2020-11-20] MEDS: buPROPion SR 150 MG (WELLBUTRIN SR) TAB PO SCH (09:07)
[2020-11-20] MEDS: busPIRone 15 MG (BUSPAR) TABLET PO SCH ×2 (09:07→13:20)
[2020-11-20] MEDS: cloNIDine 0.1 MG (CATAPRES) TAB PO SCH ×2 (09:07→13:20)
[2020-11-20] MEDS: SERTRALINE 100 MG (ZOLOFT) TAB PO SCH (09:08)
[2020-11-20] MEDS: LOSARTAN 100 MG (COZAAR) TABLET PO SCH (09:08)
[2020-11-20] MEDS: SERTRALINE 50 MG (ZOLOFT) TABLET PO SCH (09:12)
[2020-11-20] MEDS ORDERED: RT-ALBUTEROL/IPRATROPIUM 3 ML (DUONEB) VIAL IH SCH (11:00)
--- NOTE | 2020-11-20 11:45 | Physical Therapy Daily Note ---
PT Daily Note-Current Subjective Patient is very agreeable to participate with therapy. Mental Status Patient Orientation: Normal For Age Transfers SCALE: Activities may be completed with or without assistive devices. 7-Dndpljkrgw-lilzchn completes the activity by him/herself with no assistance from a helper. 5-Set-up or Clean-up Assistance-helper sets up or cleans up; patient completes activity. Mitchell assists only prior to or following the activity. 4-Supervision or Touching Assistance-helper provides verbal cues and/or touch ing/steadying and/or contact guard assistance as patient completes activity. Assistance may be provided throughout the activity or intermittently. 3-Partial/Moderate Assistance-helper does LESS THAN HALF the effort. Mitchell lifts, holds or supports trunk or limbs, but provides less than half the effort. 2-Substantial/Maximal Assistance-helper does MORE THAN HALF the effort. Mitchell lifts or holds trunk or limbs and provides more than half the effort. 1-Vjqdldrfk-zwajoe does ALL the effort. Patient does none of the effort to complete the activity. Or, the assistance of 2 or more helpers is required for the patient to complete the activity. If activity was not attempted, code reason: 7-Patient Refused. 9-Not Applicable-not attempted and the patient did not perform the activity before the current illness, exacerbation or injury. 10-Not Attempted due to Environmental Limitations-(lack of equipment, weather restraints, etc.). 88-Not Attempted due to Medical Conditions or Safety Concerns. Sit to Lying (QC): 6 Lying to Sitting/Side of Bed(Q: 6 Sit to Stand (QC): 6 Gait Training Does the Patient Walk?: Yes Distance: 300' Walk 10 feet (QC): 6 Walk 50 ft with 2 Turns(QC): 6 Walk 150 ft (QC): 6 Gait Assistive Device: FWW steady, functional gait sequence Assessment Patient returned to bed with alarm activated for patient's safety per RN. Plan dismissal this week from services. PT Pharmacist'S Aide Goals Half-Way Goals PT Half-Way Goals Time Frame: Nov 22, 2020 Roll Left & Right (QC): 6 Sit to Lying (QC): 6 Lying-Sitting on Side/Bed(QC): 6 Sit to Stand (QC): 6 Chair/Oei-iv-Iflhm Xfer(QC): 6 Toilet Transfer (QC): 6 Does the Patient Walk: Yes Walk 10 feet (QC): 6 Walk 50ft with 2 Turns (QC): 6 Walk 150 ft (QC): 6 1 Step (curb) (QC): 6 4 Steps (QC): 6 PT Plan Treatment/Plan Treatment Plan: Continue Plan of Care Treatment Plan: Education, Functional Activity Ebony, Functional Strength, Gait, Safety, Therapeutic Exercise, Transfers Treatment Duration: Nov 22, 2020 Frequency: 5 times per week Estimated Hrs Per Day: .25 hour per day Patient and/or Family Agrees t: Yes Time/GCodes Time In: 1124 Time Out: 1134 Total Billed Treatment Time: 10 Total Billed Treatment 1 visit FA 10 min MEKA PIMENTEL PT Nov 20, 2020 11:45
[2020-11-20] MEDS ORDERED: PRD20T PO (12:21)
[2020-11-20] MEDS ORDERED: RT-ALBUINH IH (12:22)
--- NOTE | 2020-11-20 12:24 | Discharge Inst-Simple/Standard ---
Discharge Inst-Standard Discharge Medications New, Converted or Re-Newed RX: Transmitted to Pharmacy Patient Instructions/Follow Up Plan of Care/Instructions/FU: Please continue to take your medications as written. Please follow up with your primary care doctor to follow up this hospital stay. Activity as Tolerated: Yes Discharge Diet: No Restrictions Return to The Hospital For: Chest pain, shortness of breath, fever, confusion, if you feel you are getting worse. LAWRENCE KNOTT MD Nov 20, 2020 12:24
--- NOTE | 2020-11-20 12:27 | Discharge Summary ---
Diagnosis/Chief Complaint Date of Admission November 17, 2020 at 11:44 Date of Discharge Discharge Date: Nov 20, 2020 Admission Diagnosis COPD exacerbation with acute respiratory failure Primary Care Silver Hernandes DO Discharge Diagnosis (1) CAD (coronary artery disease) (2) COPD (chronic obstructive pulmonary disease) Status: Acute (3) Acute respiratory failure (4) CKD (chronic kidney disease) (5) BPH (benign prostatic hyperplasia) (6) Essential (primary) hypertension (7) HLD (hyperlipidemia) (8) Falls (9) Depression (10) Microcytic anemia (11) Tobacco abuse Discharge Summary Procedures/Consulations TeleICU Discharge Physical Exam Allergies: Coded Allergies: penicillin G (Verified Allergy, Severe, SWELLING, 12/22/18) levofloxacin (Verified Allergy, Mild, Rash, 01/09/19) Vitals & I&Os Vital Signs Date Time Temp Pulse Resp B/P (MAP) Pulse Ox O2 Delivery O2 Flow Rate FiO2 11/20/20 15:34 36.6 64 20 181/88 93 Room Air 3.00 11/20/20 06:38 21 General Appearance: No Apparent Distress, WD/WN Respiratory: Lungs Clear, No Accessory Muscle Use, No Respiratory Distress Cardiovascular: Regular Rate, Rhythm, No Murmur Gastrointestinal: Normal Bowel Sounds, Soft Neurologic/Psychiatric: Alert, Oriented x3 Hospital Course Pt was admitted to the hospital due to a COPD exacerbation. He was seen in the ER twice and failed trial at home prior to being admitted. He was quite weak on arrival. He was admitted to the ICU and did well with steroids and breathign treatments. He was able to be titrated off oxygne completely and was able to ambulate with a walker independently over 300 feet. [facility] Dr Hernandes. Labs (last 24 hrs) Microbiology 11/17/20 MRSA Screen - Final, Complete MRSA not isolated Patient resulted labs reviewed. Pending Labs Discussion & Recommendations Discharge Planning: >30 minutes discharge planning Discharge Home Medications: Active Scripts Active Proair Hfa (Albuterol Sulfate) 1 Puff Puff 2 Puff IH Q4H 1 PUFF = 90 MCG Prednisone 20 Mg Tab 40 Mg PO DAILY@0700 Reported Flomax (Tamsulosin HCl) 0.4 Mg Cap 0.4 Mg PO DAILY Losartan Potassium 50 Mg Tablet 100 Mg PO DAILY TAKES 2 (50MG) TABS Clonidine HCl 0.1 Mg Tablet 0.1 Mg PO TID Aspirin EC (Aspirin) 81 Mg Tablet.dr 81 Mg PO HS Sertraline HCl 25 Mg Tablet 25 Mg PO DAILY TAKES ALONG WITH 100MG TABLET Coreg (Carvedilol) 6.25 Mg Tablet 6.25 Mg PO BID Sertraline HCl 100 Mg Tablet 100 Mg PO DAILY TAKES ALONG WITH 25MG TABLET Atorvastatin Calcium 10 Mg Tablet 10 Mg PO HS Buspirone HCl 15 Mg Tablet 15 Mg PO TID Wellbutrin Sr (Bupropion HCl) 150 Mg Tablet.er 150 Mg PO BID Nitrostat (Nitroglycerin) 0.4 Mg Tab.subl 0.4 Mg SL UD PRN PLACE 1 TAB UNDER TONGUE NEEDED FOR CHEST PAIN; IF PAIN REMAINS AFTER 5 MINUTES, CALL 911 Instructions to patient/family Please see electronic discharge instructions given to patient. Problem Qualifiers (1) CAD (coronary artery disease): Coronary Disease-Associated Artery/Lesion type: [place] artery [place] vs. transplanted heart: [place] heart Associated angina: without angina Qualified Codes: I25.10 - Atherosclerotic heart disease of [place] coronary artery without angina pectoris (2) COPD (chronic obstructive pulmonary disease): COPD type: COPD with acute exacerbation Qualified Codes: J44.1 - Chronic obstructive pulmonary disease with (acute) exacerbation (3) Acute respiratory failure: Respiratory failure complication: hypoxia Qualified Codes: J96.01 - Acute respiratory failure with hypoxia LAWRENCE KNOTT MD Nov 20, 2020 12:27
[2020-11-20 15:34] VITALS: BP 181/88
== END 2020-11-20 16:13 | disposition home or self-care (01) | DRG 189 ==
LOC: EDUNIT# 10:00 → ER 10:03 → ICU 11:44 → 4TH 11-19 17:35
PROVIDERS: ADMIT Family Medicine; ATTEND Family Medicine
DX: J96.01 Acute respiratory failure with hypoxia (principal); J44.1 Chronic obstructive pulmonary disease with (acute) exacerbation; N17.9 Acute kidney failure, unspecified; D64.9 Anemia, unspecified; N18.32 Chronic kidney disease, stage 3b; I25.10 Atherosclerotic heart disease of native coronary artery without angina pectoris; N40.0 Benign prostatic hyperplasia without lower urinary tract symptoms; I12.9 Hypertensive chronic kidney disease with stage 1 through stage 4 chronic kidney disease, or unspecified chronic kidney disease; F32.9 Major depressive disorder, single episode, unspecified; F17.210 Nicotine dependence, cigarettes, uncomplicated; R53.81 Other malaise; E78.00 Pure hypercholesterolemia, unspecified; G43.909 Migraine, unspecified, not intractable, without status migrainosus; K21.9 Gastro-esophageal reflux disease without esophagitis; M06.9 Rheumatoid arthritis, unspecified; G89.29 Other chronic pain; M54.9 Dorsalgia, unspecified; F41.9 Anxiety disorder, unspecified; Z79.82 Long term (current) use of aspirin; Z79.899 Other long term (current) drug therapy; Z86.718 Personal history of other venous thrombosis and embolism; I25.2 Old myocardial infarction; Z85.46 Personal history of malignant neoplasm of prostate; Z92.3 Personal history of irradiation
CPT/HCPCS: 36415; 36600; 71045; 80048; 80306; 82274; 82728; 82805; 83540; 83550; 83605; 83735; 84100; 84145; 85007; 85025; 85027; 87081; 94640; 94664

== ENCOUNTER 2020-12-01 20:30 | Emergency (ER) | payer MEDICARE ==
[~2020-12-01] VITALS: Ht 172 cm; Wt 68.0 kg
[~2020-12-01 20:30] MED LIST changes: +PRD20T PO; +RT-ALBUINH IH
[2020-12-01 20:42] LABS: BASOPHILS % (AUTO) 0 % (0-10); EOSINOPHILS # (AUTO) 0.1 10^3/uL (0.0-0.3); EOSINOPHILS % (AUTO) 2 % (0-10); HEMATOCRIT 31 % (40-54); HEMOGLOBIN 9.1 g/dL (13.3-17.7); LYMPHOCYTES # (AUTO) 0.8 10^3/uL (1.0-4.0); LYMPHOCYTES % (AUTO) 15 % (12-44); MEAN CORPUSCULAR HEMOGLOBIN 23 pg (25-34); MEAN CORPUSCULAR HGB CONC 29 g/dL (32-36); MEAN CORPUSCULAR VOLUME 80 fL (80-99); MEAN PLATELET VOLUME 10.4 fL (9.0-12.2); MONOCYTES # (AUTO) 0.5 10^3/uL (0.0-1.0); MONOCYTES % (AUTO) 10 % (0-12); NEUTROPHILS # (AUTO) 3.7 10^3/uL (1.8-7.8); NEUTROPHILS % (AUTO) 72 % (42-75); PLATELET COUNT 305 10^3/uL (130-400); WHITE BLOOD COUNT 5.2 10^3/uL (4.3-11.0)
[2020-12-01] MEDS ORDERED: LACTATED RINGERS 1,000 ML IV ONE (20:45)
--- NOTE | 2020-12-01 20:45 | ED General ---
General Stated Complaint: WEAKNESS Source of Information: Patient, EMS, Old Records History of Present Illness Date Seen by Provider: Dec 01, 2020 Time Seen by Provider: 20:31 Initial Comments PT ARRIVES VIA EMS FROM HOME--LIVES WITH SISTER C/O GENERALIZED WEAKNESS WAS OUTSIDE ALL DAY YESTERDAY--HEAT INDEX > 100 STATES HE HAS SLEPT ALL DAY TODAY, AND HAS BEEN IN BED ALL DAY--"TOO WEAK TO STAND" C/O SEVERE HEADACHE--PT HAS CHRONIC HEADACHE COMPLAINTS NO VISION CHANGES NO PARESTHESIAS OR MOTOR DEFICITS NO CHEST PAIN C/O SEVERE PAIN IN LEFT JAW--STATES HE DOES NOT HAVE ANY TEETH NO SHORTNESS OF BREATH HAS HAD NAUSEA ALL DAY YESTERDAY AND TODAY, NO VOMITING NO DIARRHEA NO ABDOMINAL PAIN STATES HE HAS NOT EATEN ANYTHING AT ALL YESTERDAY OR TODAY, LAST MEAL WAS 2 NIGHTS AGO--FOOD FROM [employer] HAS NOT HAD ANYTHING TO DRINK TODAY, AND NOT MUCH TO DRINK YESTERDAY. LAST VOID WAS AROUND NOON AND WAS NOT VERY MUCH NO FEVER/SWEATS/CHILLS NO COUGH OR URI SYMPTOMS NO LOSS OF TASTE/SMELL PT HAS NOT HAD COVID-19 VACCINE OR FLU VACCINE THIS SEASON STATES HE DID TAKE HIS MORNING MEDICATIONS TODAY, BUT HAS NOT TAKEN EVENING MEDICATIONS HAD CARDIAC CATH 11/12/20--NO INTERVENTION PT IN ER 11/16/20 FOR COMPLAINT OF CONTINUED CHEST PAIN SINCE CARDIAC CATH, CHRONIC HEADACHE COMPLAINT, GENERALIZED WEAKNESS, AND MULTIPLE FALLS, AND GENERALLY LETHARGIC SINCE CARDIAC CATH. EXTENSIVE WORK UP, INCLUDING COVID-19 TEST AND FLU TEST, CT HEAD/C-SPINE AND CHEST/ABDOMEN WERE ALL ESSENTIALLY NORMAL, EXCEPT FOR + UDS FOR BENZODIAZEPINES AND OPIATES, NEITHER OF WHICH ARE PRESCRIBED TO PT, AND PT ADMITS THIS. PT WAS ADVISED TO USE HOME O2, WHICH WAS AVAILABLE TO HIM AT HOME. ABG'S NORMAL, BUT DID DROP O2 SATS WITH AMBULATION. PT WAS GIVEN RX FOR ZITHROMAX FOR POSSIBLE PNEUMONIA, WHICH HE DID NOT FILL. PT WAS THEN BACK AGAIN AND ADMITTED 11/17/20 -11/20/20 FOR C/O SHORTNESS OF BREATH, GENERALIZED WEAKNESS AND FALLS. HAD NOT BEEN USING HOME O2 . WORK UP ESSENTIALLY NEGATIVE, AND DX WITH COPD EXACERBATION, GAVE STEROIDS AND NEB TREATMENTS. ABLE TO TOLERATE ACTIVITY AND MAINTAIN O2 SATS ON ROOM AIR. PCP: DR. RABAGO CARDIOLOGSIT: DR. ELIAS Allergies and Home Medications Allergies Coded Allergies: penicillin G (Verified Allergy, Severe, SWELLING, 12/22/18) levofloxacin (Verified Allergy, Mild, Rash, 01/09/19) Home Medications Albuterol Sulfate 1 Puff Puff, 2 PUFF IH Q4H 1 PUFF = 90 MCG Prescribed by: LAWRENCE KNOTT on 11/20/20 1222 Aspirin 81 Mg Tablet.dr, 81 MG PO HS, (Reported) Atorvastatin Calcium 10 Mg Tablet, 10 MG PO HS, (Reported) Bupropion HCl 150 Mg Tablet.er, 150 MG PO BID, (Reported) Buspirone HCl 15 Mg Tablet, 15 MG PO TID, (Reported) Carvedilol 6.25 Mg Tablet, 6.25 MG PO BID, (Reported) Clonidine HCl 0.1 Mg Tablet, 0.1 MG PO TID, (Reported) Losartan Potassium 50 Mg Tablet, 100 MG PO DAILY, (Reported) TAKES 2 (50MG) TABS Nitroglycerin 0.4 Mg Tab.subl, 0.4 MG SL UD PRN for CHEST PAIN, (Reported) PLACE 1 TAB UNDER TONGUE NEEDED FOR CHEST PAIN; IF PAIN REMAINS AFTER 5 MINUTES, CALL 911 Prednisone 20 Mg Tab, 40 MG PO DAILY@0700 Prescribed by: LAWRENCE KNOTT on 11/20/20 1221 Sertraline HCl 100 Mg Tablet, 100 MG PO DAILY, (Reported) TAKES ALONG WITH 25MG TABLET Sertraline HCl 25 Mg Tablet, 25 MG PO DAILY, (Reported) TAKES ALONG WITH 100MG TABLET Tamsulosin HCl 0.4 Mg Cap, 0.4 MG PO DAILY, (Reported) Patient Home Medication List Home Medication List Reviewed: Yes Review of Systems Review of Systems Constitutional: see HPI; No chills, No diaphoresis, No dizziness, No fever; malaise, weakness EENTM: no symptoms reported Respiratory: no symptoms reported; No cough, No short of breath Cardiovascular: no symptoms reported; No chest pain Gastrointestinal: see HPI; No abdominal pain, No constipation, No diarrhea; loss of appetite, nausea; No vomiting Genitourinary: see HPI, decreased output Musculoskeletal: no symptoms reported Skin: no symptoms reported; No rash Psychiatric/Neurological: See HPI, Depressed (MOM IN 2019, INCREASED DEPRESSION), Headache; Denies Numbness, Denies Paresthesia, Denies Seizure, Denies Tingling, Denies Weakness Hematologic/Lymphatic: No Symptoms Reported Immunological/Allergic: no symptoms reported Past Ircgeog-Jtjimk-Xkpakl Hx Past Med/Social Hx: Reviewed and Corrections made Patient Social History Alcohol Use: Occasionally Uses Alcohol Beverage of Choice: Beer Drug of Choice: HISTORY OF + IV METH USE, ALSO THC, WELL RX DRUGS Smoking Status: Current Everyday Smoker (3-4 PPD) Type Used: Cigarettes 2nd Hand Smoke Exposure: Yes Recent Hopitalizations: No Substance type: Methamphetamine, Opiates/Opioids, Misuse of prescript meds, Marijuana, Other (BENZODIAZEPINES) Immunizations Up To Date Tetanus Booster (TDap): Less than 5yrs PED Vaccines UTD: No Date of Influenza Vaccine: Mar 20, 2020 Seasonal Allergies Seasonal Allergies: No Past Medical History Surgeries: Yes (umb hernia, R thumb, ing hernia, 3 stents and baloon) Abdominal, Bladder Surgery, Cardiac, Coronary Stent, Gallbladder, Orthopedic, Renal, Transurethral Resection Respiratory: Yes Sleep Apnea, COPD Currently Using CPAP: No Currently Using BIPAP: No Cardiac: Yes (TR/MR/AR; PULM HTN;CHRONIC CHEST PAIN;CAD) Angina, Coronary Artery Disease, Deep Vein Thrombosis, Heart Attack, High Cholesterol, Hypertension, Valvular Heart Disease Neurological: Yes (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;PAEZ'S D/T HTN W/ SAME SYMPTO) Headaches /Migraines, TIA Reproductive Disorders: No Sexually Transmitted Disease: No HIV/AIDS: No Genitourinary: Yes (PROSTATE CANCER/BRACHYTHERAPY;CHRONIC RENAL INSUFF) Kidney Infection, Prostate Problems, Bladder Infection, Kidney Stones, Renal Failure, UTI-Chronic Gastrointestinal: Yes (TUBULAR ADENOMA;GASTRITIS; POLYPS X5) Abdominal Hernia, Gastroesophageal Reflux, Chronic Diarrhea, Polyps, Hiatal Hernia, Ulcer, Gall Bladder Disease Musculoskeletal: Yes (RIGHT THUMB FX/REPAIR) Arthritis, Rheumatoid Arthritis, Back Injury, Chronic Back Pain, Fractures Endocrine: No (BUT HAS HAD HYPERGLYCEMIA AT TIMES) HEENT: Yes Eye Injury Loss of Vision: Denies Hearing Impairment: Denies Cancer: Yes Prostate Did You Recieve Any Treatments: Yes What Type of Treatment Did You: Radiation BRACHYTHERAPY Psychosocial: Yes (EXTENSIVE HX POLYSUBSTANCE ABUSE, INCL + IV METH, OPIATES, BZO'S, THC) Sleep Difficulties, Anxiety, Depression Integumentary: No Blood Disorders: No Adverse Reaction/Blood Tranf: No (N/A) Family Medical History Arthritis 19 MOTHER MACHINE WOOD SANDER G8 SISTER FH: COPD (chronic obstructive pulmonary disease) Hypercholesterolemia 19 MOTHER Hypertension 19 MOTHER Heart Disease, Hypertension SOCIAL HISTORY: -ETOH--OCCASIONAL USE -DRUGS--LONG HISTORY OF +IV METH USE, THC USE, RX DRUG ABUSE--OPIATES, BENZODIAZEPINES -SMOKES 3-4 PPD PT WITH A VERY LONG HISTORY OF NON-COMPLIANCE IN ALL ASPECTS OF CARE MULTITUDE OF ER VISITS FOR VARIOUS COMPLAINTS PAST SURGICAL AND PROCEDURAL HISTORY: -UMBILICAL HERNIA REPAIR -INGUINAL HERNIA REPAIR -RIGHT THUMB SURGERY -CHOLECYSTECTOMY -BRACHYTHERAPY FOR PROSTATE CANCER -RIGHT URETERAL STONE LITHOTRIPSY -EGD/COLONOSCOPY/POLYPECTOMY -MULTIPLE CARDIAC CATHS WITH STENTS X 3, PLUS MULTIPLE ANGIOPLASTIES -10/11/18-CARDIAC CATH BY DR. ELIAS: CONCLUSION: 1. Severe in-stent restenosis in the proximal right coronary artery, successful balloon angioplasty using emerge 3 x 15 mm with excellent results, mild disease at the distal right coronary artery. 2. Severe stenosis at the mid to distal proper small circumflex branch, failed intervention the past, treated medically. Still patent 3. Patent stents in the LAD and obtuse marginal branch with good flow, tortuous arteries 4. Normal left ventricular size and systolic function estimated ejection fraction 60 percent DISCUSSION AND RECOMMENDATION: continue to maximize medical therapy. -11/12/20-CARDIAC CATH BY DR. ELIAS: CONCLUSION: 1. Patent stent in the proximal and mid right coronary artery none obstructive disease, small vessel disease distally 2. Tortuous LAD with mild to moderate disease, nonobstructive disease 3. Left common iliac artery has some eccentric plaque with moderate stenosis nonobstructive disease 4. Moderate stenosis at the right posterior tibial artery, mild to moderate disease at the common femoral and right SFA DISCUSSION AND RECOMMENDATION: Continue to maximize medical therapy no intervention is warranted Physical Exam Vital Signs Vital Signs - First Documented 12/01/20 20:32 Temp 38.1 Pulse 76 Resp 18 B/P (MAP) 164/92 (116) Pulse Ox 95 O2 Delivery Room Air Capillary Refill : Height, Weight, BMI Height: 5'9.00" Weight: 188lbs. 0oz. 85.608958rs; 29.22 BMI Method:Stated General Appearance: No Apparent Distress, WD/WN, Other (UNKEMPT, SOMEWHAT LETHARGIC. MALODOROUS, REEKS OF CIGARETTES. VERY FLAT AFFECT AND GIVES MINIMAL ANSWERS TO QUESTIONS AND DOES NOT OFFER ANY INFORMATION. ) HEENT: PERRL/EOMI, TMs Normal, Other (POOR DENTITION, MULTIPLE MISSING TEEHT) Respiratory: Normal Breath Sounds, No Accessory Muscle Use, No Respiratory Distress Cardiovascular: Regular Rate, Rhythm, No Murmur, Normal Peripheral Pulses Gastrointestinal: Non Tender, Soft Extremity: Normal Inspection, No Pedal Edema Neurologic/Psychiatric: Alert, Oriented x3, No Motor/Sensory Deficits, Normal Mood/Affect, second floor operator II-XII Norm as Tested Skin: Normal Color, Warm/Dry, Tattoos/Piercings (MULTIPLE TATTOOS) Focused Exam Lactate Level 12/01/20 19:45: Lactic Acid Level 0.83 Lactic Acid Level Laboratory Tests Test 12/01/20 19:45 Lactic Acid Level 0.83 MMOL/L (0.50-2.00) Progress/Results/Core Measures Suspected Sepsis SIRS Temperature: Pulse: Respiratory Rate: Laboratory Tests 12/01/20 20:30: White Blood Count 5.2 Blood Pressure / Mean: 12/01/20 19:45: Lactic Acid Level 0.83 Laboratory Tests 12/01/20 20:30: Creatinine 1.19, Platelet Count 305, Total Bilirubin 0.2 Results/Orders Lab Results Laboratory Tests Test 12/01/20 19:45 12/01/20 20:30 12/01/20 20:45 12/01/20 21:40 Range/Units Lactic Acid Level 0.83 0.50-2.00 MMOL/L White Blood Count 5.2 4.3-11.0 10^3/uL Red Blood Count 3.89 L 4.30-5.52 10^6/uL Hemoglobin 9.1 L 13.3-17.7 g/dL Hematocrit 31 L 40-54 % Mean Corpuscular Volume 80 80-99 fL Mean Corpuscular Hemoglobin 23 L 25-34 pg Mean Corpuscular Hemoglobin Concent 29 L 32-36 g/dL Red Cell Distribution Width 19.8 H 10.0-14.5 % Platelet Count 305 130-400 10^3/uL Mean Platelet Volume 10.4 9.0-12.2 fL Immature Granulocyte % (Auto) 0 % Neutrophils (%) (Auto) 72 42-75 % Lymphocytes (%) (Auto) 15 12-44 % Monocytes (%) (Auto) 10 0-12 % Eosinophils (%) (Auto) 2 0-10 % Basophils (%) (Auto) 0 0-10 % Neutrophils # (Auto) 3.7 1.8-7.8 10^3/uL Lymphocytes # (Auto) 0.8 L 1.0-4.0 10^3/uL Monocytes # (Auto) 0.5 0.0-1.0 10^3/uL Eosinophils # (Auto) 0.1 0.0-0.3 10^3/uL Basophils # (Auto) 0.0 0.0-0.1 10^3/uL Immature Granulocyte # (Auto) 0.0 0.0-0.1 10^3/uL Erythrocyte Sedimentation Rate 79 H 0-30 MM/HR Sodium Level 141 135-145 MMOL/L Potassium Level 3.7 3.6-5.0 MMOL/L Chloride Level 107 98-107 MMOL/L Carbon Dioxide Level 24 21-32 MMOL/L Anion Gap 10 5-14 MMOL/L Blood Urea Nitrogen 9 7-18 MG/DL Creatinine 1.19 0.60-1.30 MG/DL Estimat Glomerular Filtration Rate > 60 BUN/Creatinine Ratio 8 Glucose Level 97 70-105 MG/DL Calcium Level 8.8 8.5-10.1 MG/DL Corrected Calcium 9.3 8.5-10.1 MG/DL Magnesium Level 1.9 1.6-2.4 MG/DL Total Bilirubin 0.2 0.1-1.0 MG/DL Aspartate Amino Transf (AST/SGOT) 10 5-34 U/L Alanine Aminotransferase (ALT/SGPT) 10 0-55 U/L Alkaline Phosphatase 130 40-136 U/L Lactate Dehydrogenase 221 H 125-220 U/L Total Creatine Kinase 57 30-200 U/L Creatine Kinase MB 0.9 <6.6 NG/ML Myoglobin 43.6 10.0-92.0 NG/ML Troponin I < 0.028 <0.028 NG/ML C-Reactive Protein High Sensitivity 6.66 H 0.00-0.50 MG/DL Total Protein 6.7 6.4-8.2 GM/DL Albumin 3.4 3.2-4.5 GM/DL Procalcitonin 0.06 <0.10 NG/ML Serum Alcohol < 10 <10 MG/DL Urine Color YELLOW Urine Clarity CLEAR Urine pH 6.0 5-9 Urine Specific [place] 1.025 H 1.016-1.022 Urine Protein NEGATIVE NEGATIVE Urine Glucose (UA) NEGATIVE NEGATIVE Urine Ketones NEGATIVE NEGATIVE Urine Nitrite NEGATIVE NEGATIVE Urine Bilirubin NEGATIVE NEGATIVE Urine Urobilinogen 0.2 < = 1.0 MG/DL Urine Leukocyte Esterase NEGATIVE NEGATIVE Urine RBC (Auto) NEGATIVE NEGATIVE Urine RBC NONE /HPF Urine WBC RARE /HPF Urine Squamous Epithelial Cells NONE /HPF Urine Crystals NONE /LPF Urine Bacteria TRACE /HPF Urine Casts NONE /LPF Urine Mucus NEGATIVE /LPF Urine Culture Indicated NO Urine Opiates Screen POSITIVE H NEGATIVE Urine Oxycodone Screen NEGATIVE NEGATIVE Urine Methadone Screen NEGATIVE NEGATIVE Urine Propoxyphene Screen POSITIVE H NEGATIVE Urine Barbiturates Screen NEGATIVE NEGATIVE Ur Tricyclic Antidepressants Screen NEGATIVE NEGATIVE Urine Phencyclidine Screen NEGATIVE NEGATIVE Urine Amphetamines Screen NEGATIVE NEGATIVE Urine Methamphetamines Screen NEGATIVE NEGATIVE Urine Benzodiazepines Screen POSITIVE H NEGATIVE Urine Cocaine Screen NEGATIVE NEGATIVE Urine Cannabinoids Screen NEGATIVE NEGATIVE Influenza Type A (RT-PCR) Not Detected Not Detecte Influenza Type B (RT-PCR) Not Detected Not Detecte SARS-CoV-2 RNA (RT-PCR) Not Detected Not Detecte My Orders Orders - MORGAN LARES DO Ed Iv/Invasive Line Start (12/01/20 20:35) Ekg Tracing (12/01/20 20:35) Catheter(Urinary) Insert & Ass 03,15 (12/01/20 20:35) O2 (12/01/20 20:35) Monitor-Rhythm Ecg Trace Only (12/01/20 20:35) Alcohol (12/01/20 20:35) Cbc With Automated Diff (12/01/20 20:35) Comprehensive Metabolic Panel (12/01/20 20:35) Creatine Kinase (12/01/20 20:35) Creatine Kinase Mb (12/01/20 20:35) Magnesium (12/01/20 20:35) Ua Culture If Indicated (12/01/20 20:35) Myoglobin Serum (12/01/20 20:35) Troponin I (12/01/20 20:35) Ed Iv/Invasive Line Start (12/01/20 20:35) Lactated Ringers (Lr 1000 Ml Iv Solution (12/01/20 20:45) Ct Head Wo-R/O Stroke (12/01/20 20:39) Chest 1 View, Ap/Pa Only (12/01/20 20:40) Blood Culture (12/01/20 21:30) Influenza A And B By Pcr (12/01/20 21:30) Procalcitonin (Pct) (12/01/20 21:30) Hs C Reactive Protein (12/01/20 21:30) Erythrocyte Sedimentation Rate (12/01/20 21:30) LDH (12/01/20 21:30) Covid 19 Inhouse Test (12/01/20 21:30) Lactic Acid Analyzer (12/01/20 22:00) Drug Screen Stat (Urine) (12/01/20 22:09) Medications Given in ED Current Medications Medications Dose Ordered Sig/Mckenzie Route Start Time Stop Time Status Last Admin Dose Admin Lactated Ringer's 1,000 ml @ 0 mls/hr Q0M ONCE IV 12/01/20 20:45 12/01/20 20:46 DC 12/01/20 20:50 0 MLS/HR Vital Signs/I&O 12/01/20 12/01/20 20:32 23:31 Temp 38.1 36.9 Pulse 76 78 Resp 18 20 B/P (MAP) 164/92 (116) 178/103 Pulse Ox 95 98 O2 Delivery Room Air Room Air 12/02/20 00:00 Intake Total 500 ml Balance 500 ml Capillary Refill : Progress Note : Progress Note ON OBTAINING VITALS, AND NOTING THAT PT HAD A FEVER, PT THEN PLACED IN ISOLATION AND PPE WORN, AND COVID-19 TESTING PERFORMED MUCH LATER, PT ADMITS TO TAKING HIS MOM'S DARVOCET, TYLENOL WITH CODEINE AND XANAX. ADMITS THAT MEDICATIONS ARE NOT PRESCRIBED TO HIM PT HAD NO COMPLAINTS DURING ENTIRE ER STAY 2323--AFTER INITIALLY AGREEING TO ADMIT, PT NOW STATES HE WANTS TO GO HOME, STATING "I'LL JUST GO HOME AND DRINK A BUNCH OF GATORADE" PT ABLE TO EASILY GET OUT OF BED, DRESS HIMSELF, AND WALKED OUT OF ER ON HIS OWN WITHOUT ANY DIFFICULTY WHATSOEVER. SIGNED OUT AGAINST MEDICAL ADVICE ECG Initial ECG Impression Date: Dec 01, 2020 Initial ECG Impression Time: 20:36 Initial ECG Rate: 77 Initial ECG Rhythm: Normal Sinus Diagnostic Imaging Comments PER RADIOLOGIST REPORTS AT 2125 CT HEAD-- IMPRESSION: 1. Cortical sulci are slightly more prominent than the previous exam from 2019 consistent with some very early atrophy. 2. Mild paranasal sinus disease is present. CXR-- FINDINGS: Portable upright view of the chest demonstrates the right pleural effusion to have resolved. The adjacent infiltrate has nearly resolved. There is a linear area of atelectasis in the right lower lung. IMPRESSION: Improving aeration of the right lung. Reviewed: Reviewed by Me Departure Communication (Admissions) 2127--SPOKE WITH DR. FERREIRA, ACCEPTS PT FOR ADMIT Impression Primary Impression: Left against medical advice Disposition: 07 AGAINST MEDICAL ADVICE Condition: Against Medical Advice Departure-Patient Inst. Referrals: ANDRES RABAGO DO (PCP/Family) Primary Care Physician MORGAN LARES DO Dec 01, 2020 20:44
[2020-12-01 20:57] LABS: BILIRUBIN,URINE NEGATIVE (NEGATIVE); CLARITY,URINE CLEAR; COLOR,URINE YELLOW; GLUCOSE, URINE (UA) NEGATIVE (NEGATIVE); KETONES,URINE NEGATIVE (NEGATIVE); LEUKOCYTE ESTERASE ,URINE NEGATIVE (NEGATIVE); NITRITE,URINE NEGATIVE (NEGATIVE); PROTEIN,URINE NEGATIVE (NEGATIVE)
[2020-12-01 21:03] LABS: BACTERIA,URINE TRACE /HPF; WBC,URINE RARE /HPF
[2020-12-01 21:11] LABS: ALANINE AMINOTRANSFERASE 10 U/L (0-55); ALBUMIN 3.4 GM/DL (3.2-4.5); ALKALINE PHOSPHATASE 130 U/L (40-136); BILIRUBIN,TOTAL 0.2 MG/DL (0.1-1.0); BUN/CREATININE RATIO 8; CALCIUM 8.8 MG/DL (8.5-10.1); CARBON DIOXIDE 24 MMOL/L (21-32); CHLORIDE 107 MMOL/L (98-107); CREATINE KINASE 57 U/L (30-200); CREATININE SERUM 1.19 MG/DL (0.60-1.30); GFR ESTIMATED > 60; GLUCOSE 97 MG/DL (70-105); MAGNESIUM 1.9 MG/DL (1.6-2.4); POTASSIUM 3.7 MMOL/L (3.6-5.0); SODIUM 141 MMOL/L (135-145); TOTAL PROTEIN 6.7 GM/DL (6.4-8.2)
--- NOTE | 2020-12-01 21:16 | Diagnostic Imaging Report ---
PROCEDURE: CT head wo r/o stroke. TECHNIQUE: Multiple contiguous axial images were obtained through the brain without the use of intravenous contrast. Auto Exposure Controls were utilized during the CT exam to meet ALARA standards for radiation dose reduction. INDICATION: Headache, chest pain, neurodeficit COMPARISON STUDY: CT scan of the head from 12/28/2018. FINDINGS: Noncontrast CT scan of the head demonstrates no mass effect, midline shift, hemorrhage or extra-axial fluid collections. Cortical sulci appear slightly more prominent than on previous exam consistent with some early atrophic changes. No focal areas of ischemia are present. Osseous structures demonstrate no fractures. A small amount fluid is seen in the ethmoid air cells. IMPRESSION: 1. Cortical sulci are slightly more prominent than the previous exam from 2019 consistent with some very early atrophy. 2. Mild paranasal sinus disease is present. Dictated by: Dictated on workstation # [id number]
--- NOTE | 2020-12-01 21:17 | Diagnostic Imaging Report ---
INDICATION: Headache, chest pain COMPARISON STUDY: Chest from November 18. FINDINGS: Portable upright view of the chest demonstrates the right pleural effusion to have resolved. The adjacent infiltrate has nearly resolved. There is a linear area of atelectasis in the right lower lung. IMPRESSION: Improving aeration of the right lung. Dictated by: Dictated on workstation # [id number]
[2020-12-01 21:18] LABS: CREATINE KINASE MB 0.9 NG/ML (<6.6)
[2020-12-01 22:27] LABS: AMPHETAMINE SCREEN, URINE NEGATIVE (NEGATIVE); BARBITURATE SCREEN URINE NEGATIVE (NEGATIVE); BENZODIAZEPINES SCREEN URINE POSITIVE (NEGATIVE); CANNABINOID SCREEN, URINE NEGATIVE (NEGATIVE); COCAINE SCREEN URINE NEGATIVE (NEGATIVE); METHADONE STAT NEGATIVE (NEGATIVE); METHAMPHETAMINE SCREEN URINE S NEGATIVE (NEGATIVE); OPIATE SCREEN URINE POSITIVE (NEGATIVE); OXYCODONE STAT NEGATIVE (NEGATIVE); PROPOXYPHENE STAT POSITIVE (NEGATIVE); TRICYCLIC ANTIDEPRESSANTS SCRE NEGATIVE (NEGATIVE)
[2020-12-01 23:31] VITALS: BP 178/103
== END 2020-12-01 23:39 | disposition left against medical advice (07) ==
LOC: EDUNIT# 20:30 → ER 20:31
DX: R53.1 Weakness (principal); J44.9 Chronic obstructive pulmonary disease, unspecified; I25.10 Atherosclerotic heart disease of native coronary artery without angina pectoris; I25.2 Old myocardial infarction; E78.00 Pure hypercholesterolemia, unspecified; I10 Essential (primary) hypertension; F32.9 Major depressive disorder, single episode, unspecified; F41.9 Anxiety disorder, unspecified; F17.210 Nicotine dependence, cigarettes, uncomplicated; Z86.73 Personal history of transient ischemic attack (TIA), and cerebral infarction without residual deficits; Z20.822 Contact with and (suspected) exposure to COVID-19; Z79.82 Long term (current) use of aspirin; Z79.52 Long term (current) use of systemic steroids; Z79.899 Other long term (current) drug therapy
CPT/HCPCS: 70450; 71045; 80053; 80306; 81000; 82550; 82553; 83605; 83615; 83735; 83874; 84145; 84484; 85025; 85652; 86141; 87040; 87636; 93005; 93041; 99284; G0480; 36415; 80320

== ENCOUNTER 2021-02-25 05:30 | Outpatient (CLI) | payer MEDICARE ==
[~2021-02-25] VITALS: Ht 175.3 cm; Wt 84.8 kg
[~2021-02-25 05:30] MED LIST changes: -SULF1TAB35 PO; +SULF1TAB38 PO
[2021-02-25] MEDS ORDERED: AMLO-251 PO (15:53)
[2021-02-25] MEDS ORDERED: TIOT18CA2 IH (15:53)
[2021-02-25] MEDS ORDERED: CLOP75TA69 PO (15:53)
== END 2021-02-25 16:19 | disposition home or self-care (01) ==
LOC: PREOP 05:30
PROVIDERS: ATTEND Surgery
DX: Z01.818 Encounter for other preprocedural examination (principal)

== ENCOUNTER 2021-03-04 06:56 | Day surgery (SDC) | payer MEDICARE ==
[~2021-03-04] VITALS: Ht 175 cm; Wt 84.8 kg
[2021-03-04] VITALS (10 sets, daily range): BP systolic 140–156; BP diastolic 84–93
[~2021-03-04 06:56] MED LIST changes: +TIOT18CA2 IH
[2021-03-04] MEDS ORDERED: LACTATED RINGERS 1,000 ML IV PRN (07:15)
[2021-03-04] MEDS ORDERED: ceFAZolin 2 GM IV Premixed 50 ML IV ONE (07:15)
[2021-03-04] MEDS ORDERED: LIDOCAINE/EPI 1%-1:100,000 (XYLOCAINE) 20ML ONE (07:15)
[2021-03-04 07:29] LABS: AMPHETAMINE SCREEN, URINE NEGATIVE (NEGATIVE); BARBITURATE SCREEN URINE NEGATIVE (NEGATIVE); BENZODIAZEPINES SCREEN URINE NEGATIVE (NEGATIVE); CANNABINOID SCREEN, URINE NEGATIVE (NEGATIVE); COCAINE SCREEN URINE NEGATIVE (NEGATIVE); METHADONE STAT NEGATIVE (NEGATIVE); METHAMPHETAMINE SCREEN URINE S NEGATIVE (NEGATIVE); OPIATE SCREEN URINE NEGATIVE (NEGATIVE); OXYCODONE STAT NEGATIVE (NEGATIVE); PROPOXYPHENE STAT NEGATIVE (NEGATIVE); TRICYCLIC ANTIDEPRESSANTS SCRE NEGATIVE (NEGATIVE)
[2021-03-04] MEDS ORDERED: ceFAZolin 2 GM IV Premixed 0 ML ONE (07:38)
[2021-03-04] MEDS ORDERED: ONDANSETRON 4 MG/2 ML (SDV) Z0FRAN ONE (07:42)
[2021-03-04] MEDS ORDERED: proPOfol 200 MG/20 ML (DIPRIVAN) VIAL IV ONE (07:42)
[2021-03-04] MEDS ORDERED: NEOSTIGMINE 3 MG/3 ML VIAL ONE (07:42)
[2021-03-04] MEDS ORDERED: ROCURONIUM 10 MG/ML 5 ML SYRINGE IV ONE (07:42)
[2021-03-04] MEDS ORDERED: MIDAZOLAM 2 MG/2 ML (VERSED) VIAL ONE (07:42)
[2021-03-04] MEDS ORDERED: GLYCOPYRROLATE 0.2 MG/ML (ROBINUL) 2 ML VIAL ONE ×2 (07:42→09:47)
[2021-03-04] MEDS ORDERED: fentaNYL INJ 100 MCG/2 ML AMP ONE ×2 (07:42→09:53)
[2021-03-04] MEDS ORDERED: LIDOCAINE PF 2% 5 ML (XYLOCAINE) VIAL ONE (07:42)
[2021-03-04] MEDS ORDERED: ONDANSETRON 4 MG/2 ML (SDV) Z0FRAN IVP PRN (07:45)
[2021-03-04] MEDS ORDERED: HYDROmorphone 2 MG/ML VIAL (DILAUDID) IV ONE (07:45)
[2021-03-04] MEDS ORDERED: morphine INJ 10 MG/ML 1ML (SYR OR VIAL) IVP ONE (07:45)
[2021-03-04] MEDS ORDERED: CLINDAMYCIN 600 MG/50 ML IVPB 50 ML IV ONE ×2 (08:15→08:30)
--- NOTE | 2021-03-04 08:16 | Progress Note-Pre Operative ---
Pre-Operative Progress Note H&P Reviewed The H&P was reviewed, patient examined and no changes noted. Time Seen by Provider: 08:14 Date H&P Reviewed: Mar 04, 2021 Time H&P Reviewed: 08:14 Pre-Operative Diagnosis: Recurrent Right inguinal hernia, site marked JESSICA COTTO DO Mar 04, 2021 08:16
[2021-03-04] MEDS ORDERED: PHENYLEPHRINE 100 MCG/ML 10 ML (ANESTHESIA) SYR ONE (08:57)
[2021-03-04] MEDS ORDERED: ACHD5005 PO (09:58)
--- NOTE | 2021-03-04 09:58 | Progress Note-Post Operative ---
Post-Operative Progess Note Surgeon (s)/Vocational Evaluator (s) Surgeon JESSICA COTTO DO Vocational Evaluator: Nathan Pre-Operative Diagnosis Recurrent Right inguinal hernia, site marked Post-Operative Diagnosis Direct inguinal hernia - Right side Right Femoral hernia Procedure & Operative Findings Date of Procedure 03/04/21 Procedure Performed/Findings Laparoscopic Recurrent Right inguinal herniarraphy with mesh placement - robotic assisted Laparoscopic Femoral herniarraphy with mesh After informed consent was obtained, the patient was brought to the operating room and placed on the operating table in a supine position. He was sterilely prepped and draped in a normal fashion. Local lidocaine was used to infiltrate the skin above the umbilicus. I made an incision with #11 blade, carried down to the skin into subcutaneous tissue and then deepened down the subcutaneous tissue with Bovie electrocautery down to the fascia. Fascia was incised with Bovie electrocautery and bluntly entered the abdomen, swept a finger around, placed 0 Vicryl [id number] suture and placed limited trocar port under direct visualization. Created pneumoperitoneum, able to visualize the hernia and took a picture of this and then placed two 8 mm ports about 10 cm on either side of the midline port using a local lidocaine, 11 blade for stab incision and then advanced the robotic port under direct visualization. Once this was in, I then placed the patient in Trendelenburg and then placed the working instruments, the fenestrated bipolar and the scissors. Looked on the left side and saw no signs of inguinal hernia. I could see a direct hernia defect on the right side. Next, I came across the peritoneum approximately 8 cm away from the hernia defect, going across laterally starting lateral about 17cm and cutting toward the median umbilical ligament. I then carefully dissected the visceral peritoneum away and down and then in the midline, went through the parietal side and dissected down to the pubic tubercle, dissecting this down carefully pushing the peritoneum away, I was able to then visualize the pubic tubercle and Junior's ligament. I went 2 cm posterior and at this point, we then had a critical view of the dissection, able to dissect 2 cm across the midline to the right side, 2 cm posterior to the Junior's ligament, able to then parietalize the vas deferens and spermatic vessels right at the groove between Junior's and iliac vein and able to dissect, make sure there was no peritoneum between those two, able to see the indirect hernia space, took a picture of this, looked at the femoral space and found a hernia; removed fat from this hernia so that it was freed up and then took pictures of both hernias. There was no hernia sac to remove, a little fat and could visualize the indirect hernia space. Next I looked on the cord and cord structures. There was no cord lipoma to reduce, but did pull off some fat to skeletonize the area. I could clearly see the inguinal canal and the indirect space. Next I carried the posterior lateral dissection all the way out and then placed a 12 x 17 Midwieght Bard 3DMax mesh. It laid in nicely, cov ered the hernia defect and the rest of the area. It was above the peritoneum, sutured it at the pubic tubercle with a 3-0 Vicryl suture and tied this off. This appeared to lay in very nicely. I then brought down the pneumoperitoneum to about 8 mmHg and then started closing the peritoneum. Started laterally and used a 2-0 V-lock barbed suture to start a running stitch to close the peritoneum. This was closed nicely, took a picture of the closure at this point, then removed both needles had switched to a suture clamp truck driver from the scissors. The patient was then placed back supine, removed all ports under direct visualization, allowed pneumoperitoneum to escape and then closed the supraumbilical incision, closing the fascia with 0 Vicryl suture previously placed. Copiously irrigated all incisions and then closed the two small 8 mm incisions with two interrupted 4-0 undyed Monocryl subcuticular stitches and closed the supraumbilical incision with three interrupted undyed Monocryl subcuticular stitch. Area was cleaned and dried. Dermabond was placed. The patient tolerated the procedure. The sponge, instrument and needle counts were correct at the end of the case. Dr. Evans assisted during this surgery by making incisions, closing incisions, helping to identify anatomy and passing/retrieving suture and needles. Anesthesia Type GET Estimated Blood Loss Estimated blood loss (mL): less than 5ml Specimens/Packing Specimens Removed none JESSICA COTTO DO Mar 04, 2021 09:58
[2021-03-04] MEDS ORDERED: SEVOFLURANE (ULTANE) 15 ML INHAL SOLN ONE (09:59)
--- NOTE | 2021-03-04 10:01 | Discharge Inst-Surgical ---
Discharge Inst-Surgical Depart Medication/Instructions New, Converted or Re-Newed RX: Transmitted to Pharmacy Patient Instructions Follow up Appt: Make appointment for 1 week. [phone] Instructions: No lifting greater than 20 pounds. No strenuous activity. May shower in 24 hours, no tub bath or soaking. Use incentive spirometer at home as directed. No Smoking Skin/Wound Care: May remove bandages in am. You need to leave the Dermabond on incision it will fall off on it's own. Symptoms to Report: Appetite Changes, Extremity Discoloration, Numbness/Tingling, Swelling Increased, Bleeding Excessive, Eyesight Changes, Pain Increased, Urine Color Change, Constipation(Persistent), Fever over 101 degree F, Pain/Pressure in chest, Urinating Difficulty, Cough Up/Vomit Blood, Heart Beat Irreg/Pounding, Pain/Pressure in jaw, Cramps in feet or legs, Lightheadedness, Pain/Pressure in shoulder, Diarrhea(Persistent), Memory Changes Suddenly, Questions/Concerns, Weight gain consecutive days, Dizziness/Fainting, Nausea/Vomiting, Shortness of Breath, Weight gain over 2 pounds If questions or concerns contact your physician Or seek help at emergency department. Activity Activity as Tolerated: Yes Activity Instructions: Avoid Stress to Incision Driving Instructions: No Driving/Refer to Dr. Nelson Discharge Diet: No Restrictions Diet After 24 Hours: Clear Liquid if Nauseous If Any Problems/Questions/Issu: Contact Your Physician, Go to Emergency Room Skin/Wound Care Infection Signs and Symptoms: Increased Redness, Foul Odor of Wound, Increased Drainage, Skin Itchy or Has a Rash, Increased Swelling, Temperature Above 101 F Wound Care Comment: heating pad to shoulder or neck for pain tonight Bathing Instructions: Shower Stitches/Havana/Dermabond Dis: Dermabond Ice Pack: Ice On and Off Site JESSICA COTTO DO Mar 04, 2021 10:01
[2021-03-04] MEDS ORDERED: HYDROcodone/APAP 5 MG/325 MG (LORTAB) TAB ONE (11:18)
[2021-03-04] MEDS ORDERED: HYDROcodone/APAP 5 MG/325 MG (LORTAB) TAB PO ONE (11:30)
--- NOTE | 2021-03-04 13:36 | Anesthesia-General Post-Op ---
General Patient Condition Mental Status/LOC: Same as Preop Cardiovascular: Satisfactory Nausea/Vomiting: Absent Respiratory: Satisfactory Pain: Controlled Complications: Absent Post Op Complications Complications None Follow Up Care/Instructions Patient Instructions None needed. Anesthesia/Patient Condition Patient Condition Patient was seen this morning after the procedure and he was doing well, no complaints, stable vital signs, no apparent adverse anesthesia problems. ROSEMARIE QUIÑONES DO Mar 04, 2021 13:36
== END 2021-03-04 12:15 ==
LOC: SDC 06:56
PROVIDERS: ATTEND Surgery
DX: K40.91 Unilateral inguinal hernia, without obstruction or gangrene, recurrent (principal); K41.90 Unilateral femoral hernia, without obstruction or gangrene, not specified as recurrent; I10 Essential (primary) hypertension; I25.10 Atherosclerotic heart disease of native coronary artery without angina pectoris; I27.20 Pulmonary hypertension, unspecified; J44.9 Chronic obstructive pulmonary disease, unspecified; G47.33 Obstructive sleep apnea (adult) (pediatric); F17.210 Nicotine dependence, cigarettes, uncomplicated; G43.909 Migraine, unspecified, not intractable, without status migrainosus; F32.9 Major depressive disorder, single episode, unspecified; F41.9 Anxiety disorder, unspecified; K21.9 Gastro-esophageal reflux disease without esophagitis; Z98.890 Other specified postprocedural states; Z79.899 Other long term (current) drug therapy; Z79.82 Long term (current) use of aspirin; Z79.02 Long term (current) use of antithrombotics/antiplatelets
CPT/HCPCS: 49651; 49659; 80306; 87081; C1781

== ENCOUNTER → 2021-07-24 | Outpatient (CLI) | payer MEDICARE ==
[~2021-07-24] MED LIST changes: +CYCL10TA25 PO; -CYCL10TA9 PO; -LEVO250T46 PO; +LVF250T PO
== END ==
LOC: CARD 11:00
PROVIDERS: ATTEND Internal Medicine Cardiovascular Disease
DX: I10 Essential (primary) hypertension (principal)
CPT/HCPCS: 93306

== ENCOUNTER 2021-08-05 08:11 | Day surgery (SDC) | payer MEDICARE ==
[2021-08-05] VITALS (17 sets, daily range): BP systolic 115–170; BP diastolic 53–97
[~2021-08-05] VITALS: Ht 175.3 cm; Wt 90.0 kg
[2021-08-05] MEDS ORDERED: LIDOCAINE 1% INJ 20 ML VIAL ONE (08:22)
[2021-08-05] MEDS ORDERED: HEParin (CATH LAB) 2,000 ML IV ONE (08:23)
[2021-08-05] MEDS ORDERED: NS IV 1000 ML 1,000 ML ONE (08:23)
[2021-08-05] MEDS ORDERED: NS IV 1000 ML 1,000 ML IV SCH ×2 (08:30→11:00)
[2021-08-05 08:56] LABS: HEMATOCRIT 40 % (40-54); HEMOGLOBIN 12.1 g/dL (13.3-17.7); MEAN CORPUSCULAR HEMOGLOBIN 24 pg (25-34); MEAN CORPUSCULAR HGB CONC 30 g/dL (32-36); MEAN CORPUSCULAR VOLUME 80 fL (80-99); MEAN PLATELET VOLUME 9.6 fL (9.0-12.2); PLATELET COUNT 283 10^3/uL (130-400); WHITE BLOOD COUNT 6.2 10^3/uL (4.3-11.0)
[2021-08-05 08:57] LABS: BILIRUBIN,URINE NEGATIVE (NEGATIVE); CLARITY,URINE CLEAR; COLOR,URINE YELLOW; GLUCOSE, URINE (UA) NEGATIVE (NEGATIVE); KETONES,URINE NEGATIVE (NEGATIVE); LEUKOCYTE ESTERASE ,URINE NEGATIVE (NEGATIVE); NITRITE,URINE NEGATIVE (NEGATIVE); PH,URINE 6.5 (5-9); PROTEIN,URINE NEGATIVE (NEGATIVE)
[2021-08-05 09:03] LABS: BACTERIA,URINE NEGATIVE /HPF
--- NOTE | 2021-08-05 09:12 | Diagnostic Imaging Report ---
Indication: Chest pain and shortness of breath Frontal chest obtained at 0847 a.m, compared to 12/01/2020. Heart and mediastinal silhouette are normal in appearance. The lungs are clear. There is no pneumothorax or pleural fluid IMPRESSION: Negative chest. Dictated by: Dictated on workstation # [id number]
[2021-08-05 09:15] LABS: INR 0.9 (0.8-1.4); PROTHROMBIN TIME PATIENT 12.7 SEC (12.2-14.7)
[2021-08-05 09:23] LABS: ALBUMIN 4.3 GM/DL (3.2-4.5); BILIRUBIN,TOTAL 0.3 MG/DL (0.1-1.0); CALCIUM 8.9 MG/DL (8.5-10.1); CREATININE SERUM 1.59 MG/DL (0.60-1.30); POTASSIUM 3.7 MMOL/L (3.6-5.0); TOTAL PROTEIN 8.3 GM/DL (6.4-8.2)
[2021-08-05] MEDS ORDERED: fentaNYL INJ 100 MCG/2 ML AMP ONE (10:01)
[2021-08-05] MEDS ORDERED: VERAPAMIL 5 MG/2 ML (CALAN) VIAL IV ONE (10:01)
[2021-08-05] MEDS ORDERED: HEParin 1000 UNIT/ML (10ML VIAL) FOR BOLUS ONE (10:01)
[2021-08-05] MEDS ORDERED: MIDAZOLAM 5 MG/5 ML (VERSED) VIAL ONE (10:01)
[2021-08-05] MEDS ORDERED: NITRO DRIP 25000 MCG/D5W 250 ML IV ONE (10:01)
[2021-08-05] MEDS ORDERED: ASPIRIN 325 MG (5 GR) TABLET ONE (10:53)
[2021-08-05] MEDS ORDERED: CLOPIDOGREL 300 MG (PLAVIX) TABLET PO ONE (10:53)
[2021-08-05] MEDS ORDERED: NITROGLYCERIN 0.4 MG SL TABS BTL 25'S SL PRN (11:00)
--- NOTE | 2021-08-05 11:01 | Discharge Inst-Post CATH ---
Discharge Inst-CATH/EP Problems Reviewed?: Yes Post Cardiac Cath/EP D/C Inst Follow Up/Plan Appointment with Dr. Lao's office in 2 to 4 weeks <b>CARDIAC CATH/EP PROCEDURE DISCHARGE INSTRUCTIONS</b> ACTIVITY * Go Home directly and rest. * Limit activity of the leg (or wrist if it was used) for 7 days including aer obics, swimming, jogging, bicycling, etc. * Restrict stair-climbing for 7 days if possible, if not, climb up with your non-cath leg, then bring together on the same step. * Avoid lifting, pushing, pulling or excessive movement of the affected extremi ty for 7 days. * Customary sexual activity may be resumed after 2 days-use caution not to use a position that strains or causes pain to the affected extremity. * No driving for 24 hours. * NO SMOKING. * Avoid straining for bowel movements for 7 days. * Gentle walking on level ground is allowed. * Returning to work will depend on the type of procedure and the results. Your doctor will discuss this with you. CALL YOUR DOCTOR FOR ANY OF THE FOLLOWING: *If bleeding from the puncture site occurs- Apply gentle pressure to site with clean cloth and call your doctor or EMS. * If a knot or lump forms under the skin, increases in size, or causes pain. * If bruising appears to be worsening or moving further down your leg instead of disappearing. * Temperature above 101 F. CARE OF YOUR GROIN INCISION; * Bruising or purple discoloration of the skin near the puncture site is common. * You may shower only, no bathtub bathing for 5 days. Be careful to avoid slipping as your leg may feel stiff. * If a closure device was used on your femoral artery, please see the attached guide regarding care of the device and your leg. * Leave dressing on FOR 24 hours. CARE OF YOUR WRIST INCISION; * Bruising or purple discoloration of the skin near the puncture site is common. * You may shower. * DO NOT submerge wrist. * Leave dressing on FOR 24 hours. ANDREA LAO MD Aug 05, 2021 11:01
--- NOTE | 2021-08-05 11:02 | Conscious Sedation/ASA ---
Conscious Sedation Pre-Proced Time 09:00 ASA Score 3 For ASA 3 and 4: Consider anesthesia and medical clearance. Also, for patients with a history of failed moderate sedation consider anesthesia. Airway Lungs Heart ASA score ASA 1: a normal healthy patient ASA 2: a patient with a mild systemic disease (mid diabetes, controlled hypertension, obesity x ASA 3: a patient with a severe systemic disease that limits activity (angina, COPD, prior Myocardial infarction) ASA 4: a patient with an incapacitating disease that is a constant threat to life (CHF, renal failure) ASA 5: a moribund patient not expected to survive 24 hrs. (ruptured aneurysm) ASA 6: a declared brain- patient whose organs are being harvested. For emergent operations, add the letter E after the classification Mallampati Classification Grade 3 Sedation Plan Analgesia, Amnesia, Plan communicated to team members, Discussed options with patient/fam, Discussed risks with patient/fam The patient is an appropriate candidate to undergo the planned procedure, sedation, and anesthesia. The patient immediately re-assessed prior to indication. ANDREA ELIAS MD Aug 05, 2021 11:02
--- NOTE | 2021-08-05 11:07 | Cardiac Cath Report ---
Cardiac Cath Report Physician (s)/Supervisor Volunteer Services (s) Physician ANDREA ELIAS MD Pre-Procedure Diagnosis Pre-Procedure Diagnosis: Coronary artery disease Post-Procedure Note Procedure Start Date: Aug 05, 2021 Name of Procedure: Left heart catheterization PTCA to the right coronary artery Findings/Procedure Note PROCEDURE NOTE: 60-year-old gentleman with history of coronary artery disease multiple intervention, has chronic stable angina, has been more frequent episode of chest pain, becoming more unstable, due to his extensive disease we decided to proceed with cardiac catheterization possible PTCA. After explaining the procedure to the patient, all pros and cons were explained, all questions were answered. The patient signed the consent and then he was placed on the cardiac catheterization laboratory. Groin was prepped SL fashion local anesthesia was used. Sheath placed in the right radial artery, Milan catheter was advanced to the left ventricular cavity, pressure was measured, pullback LV to aorta was done, engaged the right and left coronary system, multiple views were obtained. Patient has moderate to severe in-stent restenosis in the right coronary artery, Tino right guide was advanced to the right coronary artery, patient received a total of 6000 units of heparin, BMW wire was advanced and parked in the distal right coronary artery, balloon angioplasty using trek 3 x 20 with multiple inflation in the proximal and mid right coronary artery with excellent results. At the end of the procedure the sheath was removed. Vascular band was used FINDINGS: Hemodynamics LV 94/8, end-diastolic pressure of 8 Aorta 93/62 mean of 75 ANATOMY: Left Main is free of obstructive disease Left Anterior Descending is tortuous artery with mild to moderate disease, the first diagonal artery has moderate to severe proximal stenosis, the artery is tortuous and small in diameter. Left Circumflex is moderate in size with mild to moderate disease, the proper distal circumflex artery is occluded and known to be occluded. Right Coronary Artery has multiple proximal and mid stent with moderate to severe in-stent restenosis successful balloon angioplasty using trek 3 x 20 with excellent results LV Gram was not done, pressure was measured CONCLUSION: 1. Moderate to severe in-stent restenosis in the proximal and mid right coronary artery with successful balloon angioplasty using trek 3 x 20 mm with excellent results 2. Moderate to severe proximal first diagonal artery stenosis that is small artery and tortuous. Medical therapy is recommended 3. Chronic total occlusion at the distal proper circumflex artery 4. Patent stent in the mid LAD, tortuous coronary system otherwise mild to moderate disease nonobstructive disease 5. Normal left ventricular end-diastolic pressure DISCUSSION AND RECOMMENDATION: Continue to maximize medical therapy. Anesthesia Type: Conscious Sedation Estimated blood loss (mL): 20 ml Contrast Amount: 60 ml Total Radiation Dose: 619 mGy Post-Procedure Diagnosis Post-operative diagnosis: Chest pain Coronary artery disease Hypertension Hyperlipidemia ANDREA ELIAS MD Aug 05, 2021 11:07
[2021-08-05] MEDS ORDERED: busPIRone 15 MG (BUSPAR) TABLET PO SCH (13:00)
[2021-08-05] MEDS ORDERED: RT-ALBUTEROL SULF 2.5 MG/3 ML PRE-MIX VIAL IH SCH (14:00)
[2021-08-05] MEDS ORDERED: AtorvaSTATin TABLET 10 MG TABLET PO SCH (21:00)
[2021-08-05] MEDS ORDERED: buPROPion SR 150 MG (WELLBUTRIN SR) TAB PO SCH (21:00)
[2021-08-06] MEDS ORDERED: UMECLIDINIUM BROMIDE (INCRUSE ELLIPTA) 7'S IH SCH (08:00)
[2021-08-06] MEDS ORDERED: amLODIPine 10 MG (NORVASC) TAB PO SCH (09:00)
[2021-08-06] MEDS ORDERED: TAMSULOSIN 0.4 MG (FLOMAX) CAP PO SCH (09:00)
[2021-08-06] MEDS ORDERED: SERTRALINE 50 MG (ZOLOFT) TABLET PO SCH (09:00)
[2021-08-06] MEDS ORDERED: SERTRALINE 100 MG (ZOLOFT) TAB PO SCH (09:00)
[2021-08-06] MEDS ORDERED: TIOTROPIUM BROMIDE (SPIRIVA) 5'S INHALER IH SCH (09:00)
[2021-08-06] MEDS ORDERED: NON-FORMULARY MEDICATION 1 EA EA (Sertraline HCl 25 MG) PO SCH (09:00)
[2021-08-06] MEDS ORDERED: CLOPIDOGREL 75 MG (PLAVIX) TABLET PO SCH (09:00)
[2021-08-06] MEDS ORDERED: LOSARTAN 50 MG (COZAAR) TAB PO SCH (09:00)
[2021-08-06] MEDS ORDERED: ASPIRIN E.C. 81 MG (ECOTRIN) TAB PO SCH (09:00)
== END 2021-08-05 17:00 | disposition home or self-care (01) ==
LOC: CATH 08:11 → CSD 11:29 → CATH 17:00
PROVIDERS: ATTEND Internal Medicine Cardiovascular Disease
DX: I25.118 Atherosclerotic heart disease of native coronary artery with other forms of angina pectoris (principal); T82.855A Stenosis of coronary artery stent, initial encounter; I25.82 Chronic total occlusion of coronary artery; I10 Essential (primary) hypertension; E78.5 Hyperlipidemia, unspecified; F17.210 Nicotine dependence, cigarettes, uncomplicated; I73.9 Peripheral vascular disease, unspecified; I65.23 Occlusion and stenosis of bilateral carotid arteries; R51.9 Headache, unspecified; K21.9 Gastro-esophageal reflux disease without esophagitis; F32.A Depression, unspecified; I27.20 Pulmonary hypertension, unspecified; D64.9 Anemia, unspecified; Z87.19 Personal history of other diseases of the digestive system; Z86.19 Personal history of other infectious and parasitic diseases; Z95.5 Presence of coronary angioplasty implant and graft; Z79.899 Other long term (current) drug therapy; Z79.02 Long term (current) use of antithrombotics/antiplatelets; Z79.891 Long term (current) use of opiate analgesic; Z85.46 Personal history of malignant neoplasm of prostate
CPT/HCPCS: 71045; 80053; 80061; 81000; 85027; 85610; 85730; 87081; 92920; 93458; C1725; C1769; C1887; C1894; 36415

== ENCOUNTER 2021-12-05 13:31 | Emergency (ER) | payer MEDICARE ==
[~2021-12-05] VITALS: Ht 175 cm; Wt 94.0 kg
[2021-12-05] MEDS ORDERED: NS IV 1000 ML 1,000 ML IV STA (13:40)
--- NOTE | 2021-12-05 13:47 | ED General ---
General Chief Complaint: Dizziness/Syncope Stated Complaint: DIZZY/BLURRED VISION Nursing Triage Note: ARRIVED VIA EMS WITH COMPLAINTS OF DIZZINESS AND CHEST PAIN BUT STATES HE HAS CHEST PAIN ALL THE TIME. Source of Information: Patient, EMS Exam Limitations: No Limitations History of Present Illness Date Seen by Provider: Dec 05, 2021 Time Seen by Provider: 13:44 Initial Comments This is a 61-year-old male with history of coronary artery disease and 1 previous stent that presents to the emergency room via EMS for evaluation of lightheadedness. He states that today while he was running errands with his sister he started feeling lightheaded and when he got home his symptoms persisted. He states that he has a history of migraines with hemiplegia and coronary artery disease so he called EMS to have them bring him here for further evaluation. He states that he has not been in air conditioning because his air conditioner went out and that he does not drink water. He states he currently has a dull 2/10 chest pain but this is chronic. Timing/Duration: 1 Day Severity: Moderate Allergies and Home Medications Allergies Coded Allergies: penicillin G (Verified Allergy, Severe, SWELLING, 03/04/21) levofloxacin (Verified Allergy, Mild, Rash, 03/04/21) Patient Home Medication List Home Medication List Reviewed: Yes Albuterol Sulfate (Proair Hfa) 1 Puff Puff, 2 PUFF IH Q4H Prescribed by: LAWRENCE KNOTT on 11/20/20 1222 Amlodipine Besylate (Amlodipine Besylate) 10 Mg Tablet, 10 MG PO DAILY, (Reported) Entered as Reported by: YOLA QUIGLEY on 02/25/21 1553 Aspirin (Aspirin EC) 81 Mg Tablet.dr, 81 MG PO HS, (Reported) Entered as Reported by: MARIKA KNOTT on 10/11/18 1231 Atorvastatin Calcium (Atorvastatin Calcium) 10 Mg Tablet, 10 MG PO HS, (Reported) Entered as Reported by: MARIKA KNOTT on 03/30/17 1556 Bupropion HCl (Wellbutrin Sr) 150 Mg Tablet.er, 150 MG PO BID, (Reported) Entered as Reported by: MARIKA KNOTT on 08/31/16 0908 Buspirone HCl (Buspirone HCl) 15 Mg Tablet, 15 MG PO TID, (Reported) Entered as Reported by: MARIKA KNOTT on 03/30/17 1556 Carvedilol (Coreg) 6.25 Mg Tablet, 25 MG PO BID, (Reported) Entered as Reported by: MARIKA KNOTT on 07/20/17 0933 Clopidogrel Bisulfate (Plavix) 75 Mg Tablet, 75 MG PO DAILY, (Reported) Entered as Reported by: YOLA QUIGLEY on 02/25/21 1553 Losartan Potassium (Losartan Potassium) 50 Mg Tablet, 100 MG PO DAILY, (Reported) Entered as Reported by: SLIM ABEBE on 11/12/20 1313 Nitroglycerin (Nitrostat) 0.4 Mg Tab.subl, 0.4 MG SL UD PRN for CHEST PAIN, (Reported) Entered as Reported by: SANKET LARSEN on 08/12/16 1558 Sertraline HCl (Sertraline HCl) 100 Mg Tablet, 100 MG PO DAILY, (Reported) Entered as Reported by: MARIKA KNOTT on 06/16/17 1011 Sertraline HCl (Sertraline HCl) 25 Mg Tablet, 25 MG PO DAILY, (Reported) Entered as Reported by: MARIKA KNOTT on 09/28/17 1637 Tamsulosin HCl (Flomax) 0.4 Mg Cap, 0.4 MG PO DAILY, (Reported) Entered as Reported by: SLIM ABEBE on 11/12/20 1313 Tiotropium [place] (Spiriva) 1 Inh Aerp, 1 INH IH DAILY, (Reported) Entered as Reported by: YOLA QUIGLEY on 02/25/21 1553 Review of Systems Review of Systems Constitutional: malaise EENTM: no symptoms reported Respiratory: no symptoms reported Cardiovascular: chest pain Gastrointestinal: no symptoms reported Musculoskeletal: no symptoms reported Skin: no symptoms reported Psychiatric/Neurological: Other (lightheadedness) Past Zepntyv-Rplyrx-Oeddaa Hx Patient Social History Tobacco Use?: Yes Tobacco type used: Cigarettes Smoking Status: Current Everyday Smoker Substance use?: No Alcohol Use?: No Immunizations Up To Date Tetanus Booster (TDap): Less than 5yrs PED Vaccines UTD: No First/Initial COVID19 Vaccinat: PT REFUSES Second COVID19 Vaccination Misha: PT REFUSES Third COVID19 Vaccination Date: PT REFUSES Seasonal Allergies Seasonal Allergies: No Past Medical History Surgeries: Yes (umb hernia, R thumb, ing hernia, 3 stents and balloon; cyst) Abdominal, Bladder Surgery, Cardiac, Coronary Stent, Gallbladder, Orthopedic, Renal, Transurethral Resection Respiratory: Yes Sleep Apnea, COPD Currently Using CPAP: No Currently Using BIPAP: No Cardiac: Yes (TR/MR/AR; PULM HTN;CHRONIC CHEST PAIN;CAD) Angina, Coronary Artery Disease, Deep Vein Thrombosis, Heart Attack, High Cholesterol, Hypertension, Valvular Heart Disease Neurological: Yes (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;PAEZ'S D/T HTN W/ SAME SYMPTO) Headaches /Migraines, TIA Reproductive Disorders: No Sexually Transmitted Disease: No HIV/AIDS: No Genitourinary: Yes (PROSTATE CANCER/BRACHYTHERAPY;CHRONIC RENAL INSUFF) Kidney Infection, Prostate Problems, Bladder Infection, Kidney Stones, Renal Failure, UTI-Chronic Gastrointestinal: Yes (TUBULAR ADENOMA;GASTRITIS; POLYPS X5) Abdominal Hernia, Gastroesophageal Reflux, Chronic Diarrhea, Polyps, Hiatal Hernia, Ulcer, Gall Bladder Disease Musculoskeletal: Yes (RIGHT THUMB FX/REPAIR) Arthritis, Rheumatoid Arthritis, Back Injury, Chronic Back Pain, Fractures Endocrine: No (BUT HAS HAD HYPERGLYCEMIA AT TIMES) HEENT: Yes Eye Injury Loss of Vision: Denies Hearing Impairment: Denies Cancer: Yes Prostate Did You Recieve Any Treatments: Yes What Type of Treatment Did You: Radiation Psychosocial: Yes (EXTENSIVE HX POLYSUBSTANCE ABUSE, INCL + IV METH, OPIATES, BZO'S, THC) Sleep Difficulties, Anxiety, Depression Integumentary: No Blood Disorders: No Adverse Reaction/Blood Tranf: No (N/A) Family Medical History Arthritis 19 MOTHER BEATER OUT G8 SISTER FH: COPD (chronic obstructive pulmonary disease) Hypercholesterolemia 19 MOTHER Hypertension 19 MOTHER Heart Disease, Hypertension SOCIAL HISTORY: -ETOH--OCCASIONAL USE -DRUGS--LONG HISTORY OF +IV METH USE, THC USE, RX DRUG ABUSE--OPIATES, BENZODIAZEPINES -SMOKES 3-4 PPD PT WITH A VERY LONG HISTORY OF NON-COMPLIANCE IN ALL ASPECTS OF CARE MULTITUDE OF ER VISITS FOR VARIOUS COMPLAINTS PAST SURGICAL AND PROCEDURAL HISTORY: -UMBILICAL HERNIA REPAIR -INGUINAL HERNIA REPAIR -RIGHT THUMB SURGERY -CHOLECYSTECTOMY -BRACHYTHERAPY FOR PROSTATE CANCER -RIGHT URETERAL STONE LITHOTRIPSY -EGD/COLONOSCOPY/POLYPECTOMY -MULTIPLE CARDIAC CATHS WITH STENTS X 3, PLUS MULTIPLE ANGIOPLASTIES -10/11/18-CARDIAC CATH BY DR. ELIAS: CONCLUSION: 1. Severe in-stent restenosis in the proximal right coronary artery, successful balloon angioplasty using emerge 3 x 15 mm with excellent results, mild disease at the distal right coronary artery. 2. Severe stenosis at the mid to distal proper small circumflex branch, failed intervention the past, treated medically. Still patent 3. Patent stents in the LAD and obtuse marginal branch with good flow, tortuous arteries 4. Normal left ventricular size and systolic function estimated ejection fraction 60 percent DISCUSSION AND RECOMMENDATION: continue to maximize medical therapy. -11/12/20-CARDIAC CATH BY DR. ELIAS: CONCLUSION: 1. Patent stent in the proximal and mid right coronary artery none obstructive disease, small vessel disease distally 2. Tortuous LAD with mild to moderate disease, nonobstructive disease 3. Left common iliac artery has some eccentric plaque with moderate stenosis nonobstructive disease 4. Moderate stenosis at the right posterior tibial artery, mild to moderate disease at the common femoral and right SFA DISCUSSION AND RECOMMENDATION: Continue to maximize medical therapy no intervention is warranted Physical Exam Vital Signs Vital Signs - First Documented 12/05/21 13:31 Temp 36.2 Pulse 68 Resp 16 B/P (MAP) 130/87 (101) Pulse Ox 96 O2 Delivery Room Air Capillary Refill : Less Than 3 Seconds Height, Weight, BMI Height: 5'9.00" Weight: 188lbs. 0oz. 85.923485pz; 30.00 BMI Method:Stated General Appearance: No Apparent Distress, WD/WN Eyes: Bilateral Eye Normal Inspection, Bilateral Eye PERRL, Bilateral Eye EOMI HEENT: PERRL/EOMI, TMs Normal, Pharynx Normal Neck: Full Range of Motion Respiratory: Chest Non Tender, Lungs Clear, Normal Breath Sounds Cardiovascular: Regular Rate, Rhythm Back: Normal Inspection Extremity: Normal Capillary Refill Neurologic/Psychiatric: Alert, Oriented x3, chinese medicine practitioner II-XII Norm as Tested Progress/Results/Core Measures Suspected Sepsis SIRS Temperature: Pulse: 68 Respiratory Rate: 16 Laboratory Tests 12/05/21 13:35: White Blood Count 5.4 Blood Pressure 130 /87 Mean: 101 Laboratory Tests 12/05/21 13:35: Creatinine 1.60H, Platelet Count 273, Total Bilirubin 0.3 Results/Orders Lab Results Laboratory Tests Test 12/05/21 13:35 12/05/21 13:46 Range/Units White Blood Count 5.4 4.3-11.0 10^3/uL Red Blood Count 4.76 4.30-5.52 10^6/uL Hemoglobin 11.3 L 13.3-17.7 g/dL Hematocrit 37 L 40-54 % Mean Corpuscular Volume 77 L 80-99 fL Mean Corpuscular Hemoglobin 24 L 25-34 pg Mean Corpuscular Hemoglobin Concent 31 L 32-36 g/dL Red Cell Distribution Width 16.1 H 10.0-14.5 % Platelet Count 273 130-400 10^3/uL Mean Platelet Volume 10.2 9.0-12.2 fL Immature Granulocyte % (Auto) 0 % Neutrophils (%) (Auto) 64 42-75 % Lymphocytes (%) (Auto) 22 12-44 % Monocytes (%) (Auto) 9 0-12 % Eosinophils (%) (Auto) 3 0-10 % Basophils (%) (Auto) 1 0-10 % Neutrophils # (Auto) 3.5 1.8-7.8 10^3/uL Lymphocytes # (Auto) 1.2 1.0-4.0 10^3/uL Monocytes # (Auto) 0.5 0.0-1.0 10^3/uL Eosinophils # (Auto) 0.2 0.0-0.3 10^3/uL Basophils # (Auto) 0.0 0.0-0.1 10^3/uL Immature Granulocyte # (Auto) 0.0 0.0-0.1 10^3/uL Sodium Level 137 135-145 MMOL/L Potassium Level 4.5 3.6-5.0 MMOL/L Chloride Level 103 98-107 MMOL/L Carbon Dioxide Level 25 21-32 MMOL/L Anion Gap 9 5-14 MMOL/L Blood Urea Nitrogen 12 7-18 MG/DL Creatinine 1.60 H 0.60-1.30 MG/DL Estimat Glomerular Filtration Rate 49 BUN/Creatinine Ratio 8 Glucose Level 92 70-105 MG/DL Calcium Level 8.8 8.5-10.1 MG/DL Corrected Calcium 8.9 8.5-10.1 MG/DL Total Bilirubin 0.3 0.1-1.0 MG/DL Aspartate Amino Transf (AST/SGOT) 18 5-34 U/L Alanine Aminotransferase (ALT/SGPT) 26 0-55 U/L Alkaline Phosphatase 169 H 40-136 U/L Troponin I < 0.028 <0.028 NG/ML Total Protein 7.1 6.4-8.2 GM/DL Albumin 3.9 3.2-4.5 GM/DL Influenza Type A (RT-PCR) Not Detected Not Detecte Influenza Type B (RT-PCR) Not Detected Not Detecte SARS-CoV-2 RNA (RT-PCR) Not Detected Not Detecte My Orders Orders - LORRI ALANIZ Ed Iv/Invasive Line Start (12/05/21 13:40) Cbc With Automated Diff (12/05/21 13:40) Comprehensive Metabolic Panel (12/05/21 13:40) Troponin I Maya (12/05/21 13:40) Ekg Tracing (12/05/21 13:40) Chest 1 View, Ap/Pa Only (12/05/21 13:40) Covid 19 Inhouse Test (12/05/21 13:40) Influenza A And B By Pcr (12/05/21 13:40) Ns Iv 1000 Ml (Sodium Chloride 0.9%) (12/05/21 13:40) Vital Signs/I&O 12/05/21 13:31 Temp 36.2 Pulse 68 Resp 16 B/P (MAP) 130/87 (101) Pulse Ox 96 O2 Delivery Room Air Capillary Refill : Less Than 3 Seconds Blood Pressure Mean: 101 Departure Communication (PCP) Patient afebrile, non-toxic and in no distress. No evidence of CVA/basilar oc clusion, AMI, PE, pneumonia, respiratory distress, dissection or other emergent condition. Patient felt markedly improved after IV NS. At present, it seems like his symptoms are likely due to dehydration. I do not feel admission or further imaging/labs are indicated. Impression Primary Impression: Dehydration Additional Impressions: Lightheaded Chronic kidney disease Disposition: HOME, SELF-CARE Condition: Critical Departure-Patient Inst. Decision time for Depature: 15:13 Referrals: ANDRES RABAGO DO (PCP/Family) Primary Care Physician Patient Instructions: Why Water Is Important to Health, Dehydration, Adult (DC) Add. Discharge Instructions: Please return to the emergency room with any severe changes or worsening of your symptoms. All discharge instructions reviewed with patient and/or family. Voiced understanding. LORRI ALANIZ Dec 05, 2021 13:47
[2021-12-05 13:56] LABS: ALBUMIN 3.9 GM/DL (3.2-4.5); CHLORIDE 103 MMOL/L (98-107)
[2021-12-05 13:57] LABS: POTASSIUM 4.5 MMOL/L (3.6-5.0); SODIUM 137 MMOL/L (135-145)
[2021-12-05 13:58] LABS: CALCIUM 8.8 MG/DL (8.5-10.1)
[2021-12-05 13:59] LABS: GLUCOSE 92 MG/DL (70-105); TOTAL PROTEIN 7.1 GM/DL (6.4-8.2)
[2021-12-05 14:00] LABS: BASOPHILS % (AUTO) 1 % (0-10); CARBON DIOXIDE 25 MMOL/L (21-32); EOSINOPHILS # (AUTO) 0.2 10^3/uL (0.0-0.3); EOSINOPHILS % (AUTO) 3 % (0-10); HEMATOCRIT 37 % (40-54); HEMOGLOBIN 11.3 g/dL (13.3-17.7); LYMPHOCYTES # (AUTO) 1.2 10^3/uL (1.0-4.0); LYMPHOCYTES % (AUTO) 22 % (12-44); MEAN CORPUSCULAR HEMOGLOBIN 24 pg (25-34); MEAN CORPUSCULAR HGB CONC 31 g/dL (32-36); MEAN CORPUSCULAR VOLUME 77 fL (80-99); MEAN PLATELET VOLUME 10.2 fL (9.0-12.2); MONOCYTES # (AUTO) 0.5 10^3/uL (0.0-1.0); MONOCYTES % (AUTO) 9 % (0-12); NEUTROPHILS # (AUTO) 3.5 10^3/uL (1.8-7.8); NEUTROPHILS % (AUTO) 64 % (42-75); PLATELET COUNT 273 10^3/uL (130-400); WHITE BLOOD COUNT 5.4 10^3/uL (4.3-11.0)
[2021-12-05 14:01] LABS: BILIRUBIN,TOTAL 0.3 MG/DL (0.1-1.0)
[2021-12-05 14:02] LABS: ALKALINE PHOSPHATASE 169 U/L (40-136)
[2021-12-05 14:03] LABS: GFR ESTIMATED 49
[2021-12-05 14:04] LABS: BUN/CREATININE RATIO 8
[2021-12-05 14:05] LABS: ALANINE AMINOTRANSFERASE 26 U/L (0-55)
--- NOTE | 2021-12-05 14:51 | Diagnostic Imaging Report ---
Indication: Dizziness, chest pain FINDINGS: Some very mild linear opacity in the right lung base. The morphology suggest mild partial atelectasis. No features suggestive of edema or pneumonia. Heart size and pulmonary vascularity normal. IMPRESSION: Likely trace right basilar atelectasis, otherwise negative. Dictated by: Dictated on workstation # [id number]
[2021-12-05 15:30] VITALS: BP 129/76
== END 2021-12-05 15:29 | disposition home or self-care (01) ==
LOC: EDUNIT# 13:31 → ER 13:32
DX: R42 Dizziness and giddiness (principal); I12.9 Hypertensive chronic kidney disease with stage 1 through stage 4 chronic kidney disease, or unspecified chronic kidney disease; N18.9 Chronic kidney disease, unspecified; E86.0 Dehydration; F17.210 Nicotine dependence, cigarettes, uncomplicated; Z20.822 Contact with and (suspected) exposure to COVID-19; Z28.310 Unvaccinated for COVID-19
CPT/HCPCS: 36415; 71045; 80053; 84484; 85025; 87636; 93005

== ENCOUNTER → 2022-03-03 | Outpatient (CLI) | payer MEDICARE ==
[~2022-03-03] MED LIST changes: +LEVO250T66 PO; -LVF250T PO
== END ==
LOC: CARD 13:30
PROVIDERS: ATTEND Internal Medicine Cardiovascular Disease
DX: I10 Essential (primary) hypertension (principal)
CPT/HCPCS: 93306

== ENCOUNTER → 2022-03-24 | Outpatient (CLI) | payer MEDICARE ==
[~2022-03-24] VITALS: Ht 175 cm; Wt 91.0 kg
[~2022-03-24] MED LIST changes: +REGADENOSON 0.4 MG/5 ML SYR (LEXISCAN) IV ONE
[2022-03-24] MEDS: CATHETER FLUSH 10 ML SYR IVP PRN ×2 (07:26→09:13)
[2022-03-24 08:55] VITALS: BP 139/90
--- NOTE | 2022-03-24 11:27 | Cardiology Stress Test Report ---
Stress Test Report Date of Procedure/Referring: Date of Procedure: Mar 24, 2022 PCP Silver Rabago DO Admitting Physician Admitting Physician: Attending Physician: Leroy Lao MD Indications: HTN Baseline Heart Rate: 57 Baseline Blood Pressure: Blood Pressure Systolic: 139 Blood Pressure Diastolic: 90 Baseline Vitals Vital Signs Date Time Temp Pulse Resp B/P (MAP) Pulse Ox O2 Delivery O2 Flow Rate FiO2 03/24/22 08:55 58 17 139/90 (106) 99 Room Air Baseline EKG: Baseline EKG: NSR Summary After explaining the procedure to the patient, he signed a consent and then brought to the stress nuclear laboratory. Patient received 0.4 mg Lexiscan for stress test, ECG, heart rate and blood pressure were monitored continuously. Resting and stress dose of radio tracer were injected, imaging was acquired and reviewed in short axis, horizontal long axis and vertical long axis views. TID: 1 SSS: 0 SDS: 0 EF: 55 1. Patient was unable to exercise beyond 4 minutes on standard Roni protocol, test was terminated and converted to Lexiscan Myoview stress test 2. Patient tolerated Lexiscan well 3. No significant ischemia or infarction on SPECT images 4. Normal left ventricular size with ejection fraction 55% Copy Copies To 1: SILVER RABAGO BASHAR J MD Mar 24, 2022 11:27
== END ==
LOC: CARD 08:00
PROVIDERS: ATTEND Internal Medicine Cardiovascular Disease
DX: I10 Essential (primary) hypertension (principal)
CPT/HCPCS: 78452; 93017; A9502

== ENCOUNTER → 2022-06-22 | Outpatient (CLI) | payer MEDICARE ==
[~2022-06-22] MED LIST changes: +ALBU8.5H6 IH; +CLOP-31 PO; -CLOP75TA69 PO; -REGADENOSON 0.4 MG/5 ML SYR (LEXISCAN) IV ONE; -RT-ALBUINH IH
[2022-06-22 11:12] LABS: BILIRUBIN,URINE NEGATIVE (NEGATIVE); CLARITY,URINE CLEAR; COLOR,URINE YELLOW; GLUCOSE, URINE (UA) NEGATIVE (NEGATIVE); KETONES,URINE NEGATIVE (NEGATIVE); LEUKOCYTE ESTERASE ,URINE NEGATIVE (NEGATIVE); NITRITE,URINE NEGATIVE (NEGATIVE); PROTEIN,URINE NEGATIVE (NEGATIVE)
[2022-06-22 11:28] LABS: BACTERIA,URINE NEGATIVE /HPF; WBC,URINE RARE /HPF
== END ==
LOC: LAB 10:46
PROVIDERS: ATTEND Thoracic Surgery (Cardiothoracic Vascular Surgery)
DX: Z01.812 Encounter for preprocedural laboratory examination (principal); N39.0 Urinary tract infection, site not specified; I65.23 Occlusion and stenosis of bilateral carotid arteries
CPT/HCPCS: 81000

== ENCOUNTER 2022-12-08 17:39 | Inpatient (IN) | payer MEDICARE ==
[~2022-12-08] VITALS: Ht 175 cm; Wt 93.8 kg
[~2022-12-08 17:39] MED LIST changes: +ENAL-66 PO; -ENAL10TA16 PO; +ENLP10T PO; -ENLP5T PO; -LOSA100T57 PO; +LOSA100T58 PO
[2022-12-08] MEDS ORDERED: NS IV 1000 ML 1,000 ML IV STA ×3 (18:06→23:06)
--- NOTE | 2022-12-08 18:13 | ED Abdominal Pain ---
General Chief Complaint: Abdominal/GI Problems Stated Complaint: VOMITING|DIARRHEA|UNABLE TO URINATE Nursing Triage Note: PT PRESENTS TO ED WITH C/O VOMITING AND DIARRHEA X 5 DAYS AND URINARY RETENTION X 3 DAYS. PT ALSO REPORTS LOW BACK PAIN. Source of Information: Patient Exam Limitations: No Limitations (BRITTANEY CORDOVA) History of Present Illness Date Seen by Provider: Dec 08, 2022 Time Seen by Provider: 18:10 Initial Comments Patient Is a 62-year-old male with a history of chronic kidney disease, coronary artery disease, prostate cancer presents to ED with vomiting and diarrhea and decreased urine output. Patient states symptoms started this past Tuesday with vomiting and diarrhea. 4 episodes of vomiting daily as well as 4 episodes of diarrhea daily without any blood or mucus. Reports bilateral flank discomfort described as burning over the past 3 days. Decreased urine output has not urinated over the past 3 days. States he was diagnosed with prostate cancer several years ago received radiation and currently in remission. States he felt feverish with chills and body aches on Tuesday but those have improved. Denies chest pain, cough, shortness of breath, sore throat, abdominal pain, headache, dizziness. Concern for the decreased urine output. Denies history of dialysis. (BRITTANEY CORDOVA) Allergies and Home Medications Allergies Coded Allergies: penicillin G (Verified Allergy, Severe, SWELLING, 03/04/21) levofloxacin (Verified Allergy, Mild, Rash, 03/04/21) Patient Home Medication List Home Medication List Reviewed: Yes (BRITTANEY CORDOVA) Home Medication List Reviewed: Yes (ROME EMERSON MD) Albuterol Sulfate (Ventolin Hfa) 1 Puff Puff, 2 PUFF IH Q4H Prescribed by: LAWRENCE KNOTT on 11/20/20 1222 Amlodipine Besylate (Amlodipine Besylate) 10 Mg Tablet, 10 MG PO DAILY, (Reported) Entered as Reported by: YOLA QUIGLEY on 02/25/21 1553 Aspirin (Aspirin EC) 81 Mg Tablet.dr, 81 MG PO HS, (Reported) Entered as Reported by: MARIKA KNOTT on 10/11/18 1231 Atorvastatin Calcium (Atorvastatin Calcium) 10 Mg Tablet, 10 MG PO HS, (Reported) Entered as Reported by: MARIKA KNOTT on 03/30/17 1556 Bupropion HCl (Wellbutrin Sr) 150 Mg Tablet.er, 150 MG PO BID, (Reported) Entered as Reported by: MARKIA KNOTT on 08/31/16 0908 Buspirone HCl (Buspirone HCl) 15 Mg Tablet, 15 MG PO TID, (Reported) Entered as Reported by: MARIKA KNOTT on 03/30/17 1556 Carvedilol (Coreg) 6.25 Mg Tablet, 25 MG PO BID, (Reported) Entered as Reported by: MARIKA KNOTT on 07/20/17 0933 Clopidogrel Bisulfate (Plavix) 75 Mg Tablet, 75 MG PO DAILY, (Reported) Entered as Reported by: YOLA QUIGLEY on 02/25/21 1553 Losartan Potassium (Losartan Potassium) 50 Mg Tablet, 100 MG PO DAILY, (Reported) Entered as Reported by: SLIM ABEBE on 11/12/20 1313 Nitroglycerin (Nitrostat) 0.4 Mg Tab.subl, 0.4 MG SL UD PRN for CHEST PAIN, (Reported) Entered as Reported by: SANKET LARSEN on 08/12/16 1558 Sertraline HCl (Sertraline HCl) 100 Mg Tablet, 100 MG PO DAILY, (Reported) Entered as Reported by: MARIKA KNOTT on 06/16/17 1011 Sertraline HCl (Sertraline HCl) 25 Mg Tablet, 25 MG PO DAILY, (Reported) Entered as Reported by: MARIKA KNOTT on 09/28/17 1637 Tamsulosin HCl (Flomax) 0.4 Mg Cap, 0.4 MG PO DAILY, (Reported) Entered as Reported by: SLIM ABEBE on 11/12/20 1313 Tiotropium Bonneau (Spiriva) 1 Inh Aerp, 1 INH IH DAILY, (Reported) Entered as Reported by: YOLA QUIGLEY on 02/25/21 1553 Review of Systems Review of Systems Constitutional: No chills, No diaphoresis, No fever, No malaise EENTM: No Double Vision, No Eye Pain Respiratory: Denies Cough, Denies Orthopnea Cardiovascular: Denies Chest Pain, Denies Edema Gastrointestinal: Denies Abdominal Pain, Denies Blood Streaked Stools; Diarrhea; Denies Nausea; Vomiting Genitourinary: Denies Burning, Denies Discharge; Other (decrease urine output) Musculoskeletal: No back pain, No joint pain Skin: No change in color, No change in hair/nails Psychiatric/Neurological: Denies Anxiety (BRITTANEY CORDOVA) All Other Systems Reviewed Negative Unless Noted: Yes (BRITTANEY CORDOVA) Past Qmppwnn-Orqhtl-Kscwex Hx Patient Social History Tobacco Use?: Yes Tobacco type used: Cigarettes Smoking Status: Current Everyday Smoker Use of E-Cig and/or Vaping dev: No Substance use?: No Alcohol Use?: No Pt feels they are or have been: No (BRITTANEY CORDOVA) Immunizations Up To Date Tetanus Booster (TDap): Less than 5yrs PED Vaccines UTD: No First/Initial COVID19 Vaccinat: PT REFUSES Second COVID19 Vaccination Misha: PT REFUSES Third COVID19 Vaccination Date: PT REFUSES (BRITTANEY CORDOVA) Seasonal Allergies Seasonal Allergies: No (BRITTANEY CORDOVA) Past Medical History Surgeries: Yes (umb hernia, R thumb, ing hernia, 3 stents and balloon; cyst) Abdominal, Bladder Surgery, Cardiac, Coronary Stent, Gallbladder, Orthopedic, Renal, Transurethral Resection Respiratory: Yes Sleep Apnea, COPD Currently Using CPAP: No Currently Using BIPAP: No Cardiac: Yes (TR/MR/AR; PULM HTN;CHRONIC CHEST PAIN;CAD) Angina, Coronary Artery Disease, Deep Vein Thrombosis, Heart Attack, High Cholesterol, Hypertension, Valvular Heart Disease Neurological: Yes (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;PAEZ'S D/T HTN W/ SAME SYMPTO) Headaches /Migraines, TIA Reproductive Disorders: No Sexually Transmitted Disease: No HIV/AIDS: No Genitourinary: Yes (PROSTATE CANCER/BRACHYTHERAPY;CHRONIC RENAL INSUFF) Kidney Infection, Prostate Problems, Bladder Infection, Kidney Stones, Renal Failure, UTI-Chronic Gastrointestinal: Yes (TUBULAR ADENOMA;GASTRITIS; POLYPS X5) Abdominal Hernia, Gastroesophageal Reflux, Chronic Diarrhea, Polyps, Hiatal Hernia, Ulcer, Gall Bladder Disease Musculoskeletal: Yes (RIGHT THUMB FX/REPAIR) Arthritis, Rheumatoid Arthritis, Back Injury, Chronic Back Pain, Fractures Endocrine: No (BUT HAS HAD HYPERGLYCEMIA AT TIMES) HEENT: Yes Eye Injury Loss of Vision: Denies Hearing Impairment: Denies Cancer: Yes Prostate Did You Recieve Any Treatments: Yes What Type of Treatment Did You: Radiation Psychosocial: Yes (EXTENSIVE HX POLYSUBSTANCE ABUSE, INCL + IV METH, OPIATES, BZO'S, THC) Sleep Difficulties, Anxiety, Depression Integumentary: No Blood Disorders: No Adverse Reaction/Blood Tranf: No (N/A) (BRITTANEY CORDOVA) Family Medical History Arthritis 19 MOTHER PARTS FABRICATOR G8 SISTER FH: COPD (chronic obstructive pulmonary disease) Hypercholesterolemia 19 MOTHER Hypertension 19 MOTHER Heart Disease, Hypertension SOCIAL HISTORY: -ETOH--OCCASIONAL USE -DRUGS--LONG HISTORY OF +IV METH USE, THC USE, RX DRUG ABUSE--OPIATES, BENZODIAZEPINES -SMOKES 3-4 PPD PT WITH A VERY LONG HISTORY OF NON-COMPLIANCE IN ALL ASPECTS OF CARE MULTITUDE OF ER VISITS FOR VARIOUS COMPLAINTS PAST SURGICAL AND PROCEDURAL HISTORY: -UMBILICAL HERNIA REPAIR -INGUINAL HERNIA REPAIR -RIGHT THUMB SURGERY -CHOLECYSTECTOMY -BRACHYTHERAPY FOR PROSTATE CANCER -RIGHT URETERAL STONE LITHOTRIPSY -EGD/COLONOSCOPY/POLYPECTOMY -MULTIPLE CARDIAC CATHS WITH STENTS X 3, PLUS MULTIPLE ANGIOPLASTIES -10/11/18-CARDIAC CATH BY DR. ELIAS: CONCLUSION: 1. Severe in-stent restenosis in the proximal right coronary artery, successful balloon angioplasty using emerge 3 x 15 mm with excellent results, mild disease at the distal right coronary artery. 2. Severe stenosis at the mid to distal proper small circumflex branch, failed intervention the past, treated medically. Still patent 3. Patent stents in the LAD and obtuse marginal branch with good flow, tortuous arteries 4. Normal left ventricular size and systolic function estimated ejection fraction 60 percent DISCUSSION AND RECOMMENDATION: continue to maximize medical therapy. -11/12/20-CARDIAC CATH BY DR. ELIAS: CONCLUSION: 1. Patent stent in the proximal and mid right coronary artery none obstructive disease, small vessel disease distally 2. Tortuous LAD with mild to moderate disease, nonobstructive disease 3. Left common iliac artery has some eccentric plaque with moderate stenosis nonobstructive disease 4. Moderate stenosis at the right posterior tibial artery, mild to moderate disease at the common femoral and right SFA DISCUSSION AND RECOMMENDATION: Continue to maximize medical therapy no intervention is warranted (BRITTANEY CORDOVA) Physical Exam Vital Signs Vital Signs - First Documented 12/08/22 18:03 Temp 36.5 Pulse 78 Resp 20 B/P (MAP) 109/73 (85) Pulse Ox 96 O2 Delivery Room Air (ROME EMERSON MD) Vital Signs Capillary Refill : (BRITTANEY CORDOVA) Height/Weight/BMI Height: 5'9.00" Weight: 188lbs. 0oz. 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, no motor/sensory deficits, alert, normal mood/affect, oriented x 3 Skin: normal color, warm/dry (BRITTANEY CORDOVA) Progress/Results/Core Measures Results/Orders Lab Results Laboratory Tests Test 12/08/22 18:10 12/08/22 19:58 Range/Units White Blood Count 4.3 4.3-11.0 10^3/uL Red Blood Count 4.24 L 4.30-5.52 10^6/uL Hemoglobin 11.7 L 13.3-17.7 g/dL Hematocrit 37 L 40-54 % Mean Corpuscular Volume 86 80-99 fL Mean Corpuscular Hemoglobin 28 25-34 pg Mean Corpuscular Hemoglobin Concent 32 32-36 g/dL Red Cell Distribution Width 16.1 H 10.0-14.5 % Platelet Count 261 130-400 10^3/uL Mean Platelet Volume 10.3 9.0-12.2 fL Immature Granulocyte % (Auto) 1 % Neutrophils (%) (Auto) 60 42-75 % Lymphocytes (%) (Auto) 23 12-44 % Monocytes (%) (Auto) 14 H 0-12 % Eosinophils (%) (Auto) 2 0-10 % Basophils (%) (Auto) 1 0-10 % Neutrophils # (Auto) 2.6 1.8-7.8 10^3/uL Lymphocytes # (Auto) 1.0 1.0-4.0 10^3/uL Monocytes # (Auto) 0.6 0.0-1.0 10^3/uL Eosinophils # (Auto) 0.1 0.0-0.3 10^3/uL Basophils # (Auto) 0.0 0.0-0.1 10^3/uL Immature Granulocyte # (Auto) 0.0 0.0-0.1 10^3/uL Sodium Level 138 135-145 MMOL/L Potassium Level 3.5 L 3.6-5.0 MMOL/L Chloride Level 103 98-107 MMOL/L Carbon Dioxide Level 23 21-32 MMOL/L Anion Gap 12 5-14 MMOL/L Blood Urea Nitrogen 40 H 7-18 MG/DL Creatinine 4.43 H 0.60-1.30 MG/DL Estimat Glomerular Filtration Rate 14 BUN/Creatinine Ratio 9 Glucose Level 123 H 70-105 MG/DL Calcium Level 8.7 8.5-10.1 MG/DL Corrected Calcium 8.7 8.5-10.1 MG/DL Total Bilirubin 0.2 0.1-1.0 MG/DL Aspartate Amino Transf (AST/SGOT) 18 5-34 U/L Alanine Aminotransferase (ALT/SGPT) 20 0-55 U/L Alkaline Phosphatase 73 40-136 U/L Total Protein 7.4 6.4-8.2 GM/DL Albumin 4.0 3.2-4.5 GM/DL Lipase 161 H 8-78 U/L Serum Alcohol < 10 <10 MG/DL Urine Color YELLOW Urine Clarity CLEAR Urine pH 5.5 5-9 Urine Specific [place] >=1.030 1.016-1.022 Urine Protein 1+ H NEGATIVE Urine Glucose (UA) NEGATIVE NEGATIVE Urine Ketones NEGATIVE NEGATIVE Urine Nitrite NEGATIVE NEGATIVE Urine Bilirubin NEGATIVE NEGATIVE Urine Urobilinogen 0.2 < = 1.0 MG/DL Urine Leukocyte Esterase NEGATIVE NEGATIVE Urine RBC (Auto) NEGATIVE NEGATIVE Urine RBC NONE /HPF Urine WBC 0-2 /HPF Urine Crystals PRESENT H /LPF Urine Amorphous Sediment FEW MAREK URATES H /LPF Urine Bacteria TRACE /HPF Urine Casts PRESENT /LPF Urine Hyaline Casts 10-25 H /LPF Urine Granular Casts 2-5 H /LPF Urine Mucus SMALL H /LPF Urine Culture Indicated NO (ROME EMERSON MD) My Orders Orders - ROME EMERSON MD Fentanyl Inj (Sublimaze Injection) (12/09/22 00:45) (ROME EMERSON MD) Medications Given in ED Current Medications Medications Dose Ordered Sig/Mckenzie Route Start Time Stop Time Status Last Admin Dose Admin Fentanyl Citrate 50 mcg ONCE ONCE IVP 12/09/22 00:45 12/09/22 00:46 DC 12/09/22 00:36 50 MCG Lidocaine HCl 10 ml ONCE ONCE TOP 12/08/22 20:15 12/08/22 20:16 DC 12/08/22 20:27 10 ML Ondansetron HCl 4 mg ONCE ONCE IVP 12/08/22 18:15 12/08/22 18:16 DC 12/08/22 18:21 4 MG (ROME EMERSON MD) Vital Signs/I&O 12/08/22 18:03 Temp 36.5 Pulse 78 Resp 20 B/P (MAP) 109/73 (85) Pulse Ox 96 O2 Delivery Room Air 12/09/22 00:00 Intake Total 2000 ml Balance 2000 ml (ROME EMERSON MD) Blood Pressure Mean: 85 Departure Communication (PCP) Reviewed previous ER visits, H&P, lab testing. Differential diagnosis, gastroenteritis, gastritis, colitis, diverticulitis, acute kidney injury, nephrolithiasis, outlet obstruction. CBC, CMP, urinalysis, bladder scan, CT abdomen pelvis was ordered. Patient was started on a liter of fluid. Bladder scan noted at 120 ml of urine. After liter fluid patient was able to produce a urinalysis. Proteins noted with cast. No evidence of infection. CBC, CMP showed normal white blood count, hemoglobin. Creatinine 4.43, GFR 14, BUN 40, lipase 161, potassium 3.5. Denies of any excessive alcohol use. Alcohol level normal. After patient urinated CT abdomen pelvis was ordered which did not note any acute abnormality. Did receive Zofran for nausea. Patient provided stool culture culture currently pending with C. difficile. Denies of any mucousy or bloody stools. Denies of any recent antibiotic use. CT abdomen pelvis negative for acute abnormality. Patient was discussed with hospitalist Dr. Wellington. She recommended continue with IV fluids and recheck of kidney function at 3 AM. If Improvement of kidney function patient can be admitted. if no improvement or decrease kidney function recommended transfer with nephrology. (BRITTANEY CORDOVA) Impression Primary Impression: Acute on chronic kidney failure Disposition: ADMITTED INPATIENT Condition: Stable Admissions Decision to Admit Reason: Admit from ER (General) Decision to Admit/Date: Dec 09, 2022 Time/Decision to Admit Time: 03:00 (BRITTANEY CORDOVA) Departure-Patient Inst. Decision time for Depature: 03:00 (BRITTANEY CORDOVA) Referrals: ANDRES RABAGO DO (PCP/Family) Primary Care Physician BRITTANEY CORDOVA Dec 08, 2022 18:13 ROME EMERSON MD Dec 09, 2022 02:14
[2022-12-08] MEDS ORDERED: ONDANSETRON 4 MG/2 ML (SDV) Z0FRAN IVP ONE (18:15)
[2022-12-08 18:23] LABS: BASOPHILS % (AUTO) 1 % (0-10); EOSINOPHILS # (AUTO) 0.1 10^3/uL (0.0-0.3); EOSINOPHILS % (AUTO) 2 % (0-10); HEMATOCRIT 37 % (40-54); HEMOGLOBIN 11.7 g/dL (13.3-17.7); LYMPHOCYTES % (AUTO) 23 % (12-44); MEAN CORPUSCULAR HEMOGLOBIN 28 pg (25-34); MEAN CORPUSCULAR HGB CONC 32 g/dL (32-36); MEAN CORPUSCULAR VOLUME 86 fL (80-99); MEAN PLATELET VOLUME 10.3 fL (9.0-12.2); MONOCYTES # (AUTO) 0.6 10^3/uL (0.0-1.0); MONOCYTES % (AUTO) 14 % (0-12); NEUTROPHILS # (AUTO) 2.6 10^3/uL (1.8-7.8); NEUTROPHILS % (AUTO) 60 % (42-75); PLATELET COUNT 261 10^3/uL (130-400); WHITE BLOOD COUNT 4.3 10^3/uL (4.3-11.0)
[2022-12-08 18:57] LABS: BILIRUBIN,TOTAL 0.2 MG/DL (0.1-1.0); CALCIUM 8.7 MG/DL (8.5-10.1); CREATININE SERUM 4.43 MG/DL (0.60-1.30); POTASSIUM 3.5 MMOL/L (3.6-5.0); TOTAL PROTEIN 7.4 GM/DL (6.4-8.2)
--- NOTE | 2022-12-08 19:46 | Diagnostic Imaging Report ---
PROCEDURE: CT abdomen and pelvis without contrast. TECHNIQUE: Multiple contiguous axial images were obtained through the abdomen and pelvis without the use of intravenous contrast. Auto Exposure Controls were utilized during the CT exam to meet ALARA standards for radiation dose reduction. INDICATION: 62-year-old male, vomiting and diarrhea x5 days, urinary retention x3 days. Low back pain. CORRELATION STUDY: 11/16/2020 FINDINGS: LUNG BASES: Heart size normal with coronary artery calcification. Lung bases clear. Prominent esophageal hernia. LIVER: Unremarkable on unenhanced imaging. GALLBLADDER: Cholecystectomy. No bile duct dilatation. SPLEEN: Unremarkable. PANCREAS: Unremarkable. ADRENAL GLANDS: Unremarkable. KIDNEYS: Normal configuration. No hydronephrosis. Small calcification left kidney may be vasculature. ABDOMINAL AORTA: Mild wall calcification, nonaneurysmal. No pathologically enlarged aortocaval lymph nodes. GASTROINTESTINAL TRACT: Colon is largely decompressed likely accounting for wall thickening. A few scattered colonic diverticula without diverticulitis. Normal appendix. No small bowel obstruction. Stomach collapsed. No abdominal ascites and/or free air. URINARY BLADDER: Unremarkable and appears to be of unremarkable volume. REPRODUCTIVE: Prostate gland small with presumed radiation markers. OSSEOUS STRUCTURES: No acute abnormality. OTHER: None. IMPRESSION: 1. Negative for acute abnormality of the abdomen or pelvis. Gastrointestinal tract is largely decompressed. No obstruction or inflammation. 2. The urinary bladder has an unremarkable appearance and is of an unremarkable volume. Dictated by: Dictated on workstation # [id number]
[2022-12-08 20:04] LABS: BILIRUBIN,URINE NEGATIVE (NEGATIVE); CLARITY,URINE CLEAR; COLOR,URINE YELLOW; GLUCOSE, URINE (UA) NEGATIVE (NEGATIVE); KETONES,URINE NEGATIVE (NEGATIVE); LEUKOCYTE ESTERASE ,URINE NEGATIVE (NEGATIVE); NITRITE,URINE NEGATIVE (NEGATIVE); PH,URINE 5.5 (5-9); PROTEIN,URINE 1+ (NEGATIVE)
[2022-12-08] MEDS ORDERED: LIDOCAINE UROJET 2% GEL 10 ML PKG TOP ONE (20:15)
[2022-12-08 20:16] LABS: AMORPHOUS SEDIMENT,UR FEW AMOR URATES /LPF; BACTERIA,URINE TRACE /HPF; WBC,URINE 0-2 /HPF
[2022-12-08] MEDS ORDERED: fentaNYL INJ 100 MCG/2 ML AMP IVP STA (21:04)
[2022-12-09] VITALS (10 sets, daily range): BP systolic 146–197; BP diastolic 69–94
[2022-12-09] MEDS ORDERED: fentaNYL INJ 100 MCG/2 ML AMP IVP ONE ×2 (00:45→05:45)
[2022-12-09 03:21] LABS: POTASSIUM 3.7 MMOL/L (3.6-5.0)
[2022-12-09 03:22] LABS: CALCIUM 7.7 MG/DL (8.5-10.1)
[2022-12-09 03:27] LABS: CREATININE SERUM 2.97 MG/DL (0.60-1.30)
[2022-12-09] MEDS ORDERED: BISACODYL 10 MG SUPP (DULCOLAX) PR PRN (07:15)
[2022-12-09] MEDS ORDERED: MELATONIN 3 MG TABLET PO PRN (07:15)
[2022-12-09] MEDS ORDERED: ACETAMINOPHEN 325 MG TABLET PO PRN (07:15)
[2022-12-09] MEDS ORDERED: ANTACID SUSP 30 ML UDC (MYLANTA) PO PRN (07:15)
[2022-12-09] MEDS ORDERED: diphenhydrAMINE 25 MG TAB (BENADRYL) PO PRN (07:15)
[2022-12-09] MEDS ORDERED: CALCIUM CARBONATE 500 MG (TUMS) TAB.CHEW PO PRN (07:15)
[2022-12-09] MEDS ORDERED: ONDANSETRON 4 MG/2 ML (SDV) Z0FRAN IV PRN (07:15)
[2022-12-09] MEDS ORDERED: MILK OF MAGNESIA 400 MG/5 ML 30 ML UDC PO PRN (07:15)
[2022-12-09] MEDS ORDERED: polyethylene glycoL POWDER 17 GM (MIRALAX) PACK PO PRN (07:15)
[2022-12-09] MEDS ORDERED: LACTULOSE SYRUP 10GM/15ML (ENULOSE) 30ML UDC PO PRN (07:15)
[2022-12-09] MEDS ORDERED: diphenhydrAMINE 50 MG/ML INJ (BENADRYL) IVP PRN (07:15)
[2022-12-09] MEDS ORDERED: HYDROmorphone 2 MG/ML VIAL (DILAUDID) IV PRN (07:15)
[2022-12-09] MEDS ORDERED: ONDANSETRON 4 MG (ZOFRAN) ORAL DISSOLVE TAB PO PRN (07:15)
[2022-12-09] MEDS ORDERED: ALPRAZolam 0.5 MG (XANAX) TAB PO PRN (07:15)
[2022-12-09] MEDS: NS IV 1000 ML 1,000 ML IV SCH ×3 (07:30→23:44)
[2022-12-09] MEDS: SENNOSIDES 8.6 MG (SENOKOT) TAB PO SCH ×2 (07:55→19:39)
[2022-12-09] MEDS: DOCUSATE SODIUM 100 MG (COLACE) CAP PO SCH ×2 (07:55→19:39)
--- NOTE | 2022-12-09 07:59 | Physical Therapy Evaluation ---
PT Evaluation-General Medical Diagnosis Admission Date Dec 09, 2022 at 06:59 Medical Diagnosis: kidney failure/dehydration Onset Date: Dec 08, 2022 Therapy Diagnosis Therapy Diagnosis: debility Height/Weight Height (Feet): 5 Height (Inches): 9.00 Weight (Pounds): 188 Weight (Ounces): 0 Precautions Precautions/Isolations: Standard Precautions Referral Physician: Eliz Reason for Referral: Evaluation/Treatment Medical History Pertinent Medical History: Alcoholism, CAD, COPD, HTN, AR, Prostate CA, Smoking Additional Medical History polysubstance use Current History ER secondary to vomiting and diarrhea with urine retention Reviewed History: Yes Social History Home: Single Level Current Living Status: Alone Prior Prior Level of Function SCALE: Activities may be completed with or without assistive devices. 6-Ujoitlzlao-kvazhzb completes the activity by him/herself with no assistance from a helper. 5-Set-up or Clean-up Assistance-helper sets up or cleans up; patient completes activity. Milton assists only prior to or following the activity. 4-Supervision or Touching Assistance-helper provides verbal cues and/or touching/steadying and/or contact guard assistance as patient completes activity. Assistance may be provided throughout the activity or intermittently. 3-Partial/Moderate Assistance-helper does LESS THAN HALF the effort. Milton lifts, holds or supports trunk or limbs, but provides less than half the effort. 2-Substantial/Maximal Assistance-helper does MORE THAN HALF the effort. Milton lifts or holds trunk or limbs and provides more than half the effort. 4-Tbmvjjdlg-vhccml does ALL the effort. Patient does none of the effort to complete the activity. Or, the assistance of 2 or more helpers is required for the patient to complete the activity. If activity was not attempted, code reason: 7-Patient Refused. 9-Not Applicable-not attempted and the patient did not perform the activity before the current illness, exacerbation or injury. 10-Not Attempted due to Environmental Limitations-(lack of equipment, weather restraints, etc.). 88-Not Attempted due to Medical Conditions or Safety Concerns. Bed Mobility: 6 Transfers (B,C,W/C): 6 Gait: 6 Stairs: 6 Indoor Mobility (Ambulation): Independent Stairs: Independent Prior Devices Use: None PT Evaluation-Current Subjective Patient agrees to PT. Objective Patient Orientation: Normal For Age Attachments: Smith Catheter ROM/Strength ROM Lower Extremities bilateral LE WFL Strength Lower Extremities 5/5 grossly bilateral LE all planes Integumentary/Posture Bowel Incontinence: No Bladder Incontinence: Smith Cath Posture WFL Neuromuscular (Tone, Coordination, Reflexes) grossly intact with all Sensory Vision: Functional Hearing: Functional Transfers Lying to Sitting/Side of Bed(Q: 6 Sit to Stand (QC): 6 Chair/Gwh-wl-Daphj Xfer(QC): 6 Gait Mode of Locomotion: Walk Anticipated Mode of Locomotion: Walk Walk 10 feet (QC): 6 Walk 50 ft with 2 Turns(QC): 6 Walk 150 ft (QC): 6 Distance: 300' Gait Assistive Device: None Comments/Gait Description safe and functional with no deviation Balance Sitting Static: Normal Sitting Dynamic: Normal Standing Static: Normal Standing Dynamic: Normal Assessment/Needs Patient is currently at independent [facility] with all gross motor skills safely and does not require skilled PT at this time. PT to dismiss patient from services at this time. Rehab Potential: Good PT Plan Treatment/Plan Treatment Plan: Discontinue PT Treatment Duration: Dec 09, 2022 Frequency: 1 time per week Estimated Hrs Per Day: .25 hour per day Patient and/or Family Agrees t: Yes Time Time In: 725 Time Out: 735 DATE: Dec 09, 2022 Total Billed Treatment Time: 10 Total Billed Treatment 1 visit EVMod 10 min MEKA PIMENTEL PT Dec 09, 2022 07:59
--- NOTE | 2022-12-09 10:24 | History & Physical ---
History of Present Illness HPI/Chief Complaint Chief complaint: Acute kidney injury HPI: This is a 62-year-old male clinic patient of Dr. Woodard who has a past medical history of chronic kidney disease stage III and hypertension and CAD previous stents with active smoking who presented to the ER with diarrhea and nausea and vomiting for 3 days and suffering acute kidney injury with creatinine of 4.5. Patient was maintained in the ER on IV fluid the rest the night repeat BMP showed improved creatinine so he was admitted. He is doing a lot better but he will need IV fluids and he will discharge tomorrow. Source: patient Exam Limitations: no limitations Date Seen 12/09/22 Time Seen by a Provider: 10:00 Attending Physician Silver Hernandes DO PCP Admitting Physician: Treva White DO Attending Physician: Treva White DO Referring Physician Date of Admission Dec 09, 2022 at 06:59 Home Medications & Allergies Home Medications Reviewed patient Home Medication Reconciliation performed by pharmacy medication reconciliations certified pharmacy technician and/or nursing. Patients Allergies have been reviewed. Allergies Allergies Coded Allergies penicillin G (Verified Allergy, Severe, SWELLING, 03/04/21) levofloxacin (Verified Allergy, Mild, Rash, 03/04/21) Past Pirgleg-Wuxrgq-Ttukra Hx Past Med/Social Hx: Reviewed Nursing Past Med/Soc Hx, Reviewed and Corrections made Patient Social History Marrital Status: single Employed/Student: retired Alcohol Use: Denies Use Alcohol Beverage of Choice: Beer Drug of Choice: HISTORY OF + IV METH USE, ALSO THC, WELL RX DRUGS Smoking Status: Current Everyday Smoker Former Smoker, Quit: Aug 24, 2016 Type Used: Cigarettes 2nd Hand Smoke Exposure: Yes Recent Hopitalizations: No Immunizations Up To Date Tetanus Booster (TDap): Less than 5yrs Pediatric: No Date of Influenza Vaccine: Mar 20, 2020 Seasonal Allergies Seasonal Allergies: No Past Medical History Surgeries: Abdominal, Bladder Surgery, Cardiac, Coronary Stent, Gallbladder, Orthopedic, Renal, Transurethral Resection Currently Using CPAP: No Currently Using BIPAP: No Cardiac: Angina, Coronary Artery Disease, Deep Vein Thrombosis, Heart Attack, High Cholesterol, Hypertension, Valvular Heart Disease Neurological: Headaches /Migraines, TIA Reproductive: No Sexually Transmitted Disease: No HIV/AIDS: No Genitourinary: Kidney Infection, Prostate Problems, Bladder Infection, Kidney Stones, Renal Failure, UTI-Chronic Gastrointestinal: Abdominal Hernia, Gastroesophageal Reflux, Chronic Diarrhea, Polyps, Hiatal Hernia, Ulcer, Gall Bladder Disease Musculoskeletal: Arthritis, Rheumatoid Arthritis, Back Injury, Chronic Back Pain, Fractures HEENT: Eye Injury Loss of Vision: Denies Hearing Impairment: Denies Cancer: Prostate Did You Recieve Any Treatments: Yes What Type of Treatment Did You: Radiation Psychosocial: Sleep Difficulties, Anxiety, Depression History of Blood Disorders: No Adverse Reaction to Blood Santana: No (N/A) Family History Arthritis 19 MOTHER OPERATIONS AND INTELLIGENCE ASSISTANT G8 SISTER FH: COPD (chronic obstructive pulmonary disease) Hypercholesterolemia 19 MOTHER Hypertension 19 MOTHER Heart Disease, Hypertension SOCIAL HISTORY: -ETOH--OCCASIONAL USE -DRUGS--LONG HISTORY OF +IV METH USE, THC USE, RX DRUG ABUSE--OPIATES, BENZODIAZEPINES -SMOKES 3-4 PPD PT WITH A VERY LONG HISTORY OF NON-COMPLIANCE IN ALL ASPECTS OF CARE MULTITUDE OF ER VISITS FOR VARIOUS COMPLAINTS PAST SURGICAL AND PROCEDURAL HISTORY: -UMBILICAL HERNIA REPAIR -INGUINAL HERNIA REPAIR -RIGHT THUMB SURGERY -CHOLECYSTECTOMY -BRACHYTHERAPY FOR PROSTATE CANCER -RIGHT URETERAL STONE LITHOTRIPSY -EGD/COLONOSCOPY/POLYPECTOMY -MULTIPLE CARDIAC CATHS WITH STENTS X 3, PLUS MULTIPLE ANGIOPLASTIES -10/11/18-CARDIAC CATH BY DR. ELIAS: CONCLUSION: 1. Severe in-stent restenosis in the proximal right coronary artery, successful balloon angioplasty using emerge 3 x 15 mm with excellent results, mild disease at the distal right coronary artery. 2. Severe stenosis at the mid to distal proper small circumflex branch, failed intervention the past, treated medically. Still patent 3. Patent stents in the LAD and obtuse marginal branch with good flow, tortuous arteries 4. Normal left ventricular size and systolic function estimated ejection fraction 60 percent DISCUSSION AND RECOMMENDATION: continue to maximize medical therapy. -11/12/20-CARDIAC CATH BY DR. ELIAS: CONCLUSION: 1. Patent stent in the proximal and mid right coronary artery none obstructive disease, small vessel disease distally 2. Tortuous LAD with mild to moderate disease, nonobstructive disease 3. Left common iliac artery has some eccentric plaque with moderate stenosis nonobstructive disease 4. Moderate stenosis at the right posterior tibial artery, mild to moderate disease at the common femoral and right SFA DISCUSSION AND RECOMMENDATION: Continue to maximize medical therapy no intervention is warranted Review of Systems Constitutional: see HPI, malaise, weakness Gastrointestinal: nausea, vomiting Physical Exam Physical Exam Vital Signs Vital Signs - First Documented 12/08/22 18:03 Temp 36.5 Pulse 78 Resp 20 B/P (MAP) 109/73 (85) Pulse Ox 96 O2 Delivery Room Air Capillary Refill : Height, Weight, BMI Height: 5'9.00" Weight: 188lbs. 0oz. 85.315081lp; 29.68 BMI Method:Stated General Appearance: No Apparent Distress, WD/WN, Chronically ill Eyes: Bilateral Eye Normal Inspection, Bilateral Eye PERRL HEENT: PERRL/EOMI, Normal ENT Inspection, Pharynx Normal Neck: Full Range of Motion, Normal Inspection, Non Tender, Supple, Carotid Bruit Respiratory: Chest Non Tender, Lungs Clear, Normal Breath Sounds, No Accessory Muscle Use, No Respiratory Distress Cardiovascular: Regular Rate, Rhythm, No Edema, No Gallop, No JVD, No Murmur, Normal Peripheral Pulses Gastrointestinal: Normal Bowel Sounds, No Organomegaly, No Pulsatile Mass, Non Tender, Soft Back: Normal Inspection, No CVA Tenderness, No Vertebral Tenderness Extremity: Normal Capillary Refill, Normal Inspection, Normal Range of Motion, Non Tender, No Calf Tenderness, No Pedal Edema Neurologic/Psychiatric: Alert, Oriented x3, No Motor/Sensory Deficits, Normal Mood/Affect Skin: Normal Color, Warm/Dry Lymphatic: No Adenopathy Results Results/Procedures Labs Laboratory Tests 12/08/22 18:10 12/09/22 03:04 Patient resulted labs reviewed. Assessment/Plan Admission Diagnosis Assessment: Acute kidney injury Profound dehydration Gastroenteritis CAD previous stents Hypertension Hyperlipidemia Active smoker Plan: IV fluids Supportive care Move to fourth floor Admission Status: Observation TREVA WHITE DO Dec 09, 2022 10:24
[2022-12-09] MEDS ORDERED: hydrALAZINE (APRESOLINE) 25 MG TAB PO PRN (10:30)
[2022-12-09] MEDS ORDERED: amLODIPine 5 MG (NORVASC) TAB PO NR (10:30)
[2022-12-09] MEDS ORDERED: inSUlin ASPART (NovoLOG) 1 UNIT/0.01 ML (CHARGE PER UNIT) SC SCH (11:00)
[2022-12-09] MEDS ORDERED: OMEG100032 PO (11:23)
[2022-12-09] MEDS ORDERED: BUPR-105 PO (11:23)
[2022-12-09] MEDS ORDERED: FINA5TAB6 PO (11:23)
[2022-12-09] MEDS ORDERED: OMEP40CA6 PO (11:23)
[2022-12-09] MEDS ORDERED: ISOS60TA63 PO (11:23)
[2022-12-09] MEDS ORDERED: CARV6.252 PO (11:23)
[2022-12-09] MEDS ORDERED: CLOP75TA28 PO (11:23)
[2022-12-09] MEDS ORDERED: FENO54TA PO (11:23)
[2022-12-09] MEDS ORDERED: RT-ALBUTEROL/IPRATROPIUM 3 ML (DUONEB) VIAL INH PRN (14:00)
[2022-12-09] MEDS: RT-ALBUTEROL/IPRATROPIUM 3 ML (DUONEB) VIAL INH SCH ×2 (14:32→21:14)
[2022-12-09] MEDS ORDERED: CLOPIDOGREL 75 MG (PLAVIX) TABLET PO SCH (21:00)
[2022-12-09] MEDS ORDERED: cloNIDine 0.1 MG (CATAPRES) TAB PO PRN (22:00)
[2022-12-10] VITALS: BP 166/89
[2022-12-10 04:00] VITALS: BP 198/99
[2022-12-10] MEDS ORDERED: HYDR-3924 PO (04:59)
[2022-12-10] MEDS ORDERED: amLODIPine 5 MG (NORVASC) TAB PO ONE (05:00)
--- NOTE | 2022-12-10 05:01 | Discharge Summary ---
Diagnosis/Chief Complaint Date of Admission Dec 09, 2022 at 06:59 Date of Discharge Discharge Date: Dec 10, 2022 Discharge Diagnosis Acute kidney injury on chronic kidney disease stage III COPD Active smoker Hypertension Hyperlipidemia CAD previous stents Discharge Summary Discharge Physical Examination Allergies: Coded Allergies: penicillin G (Verified Allergy, Severe, SWELLING, 03/04/21) levofloxacin (Verified Allergy, Mild, Rash, 03/04/21) Vitals & I&Os Vital Signs Date Time Temp Pulse Resp B/P (MAP) Pulse Ox O2 Delivery O2 Flow Rate FiO2 12/10/22 08:45 12/10/22 08:00 Room Air 12/10/22 07:40 36.5 71 16 95 General Appearance: Alert, Oriented X3, Cooperative Respiratory: Clear to Auscultation Cardiovascular: Regular Rate Psych/Mental Status: Mental Status NL Hospital Course Was the Problem List Reviewed?: Yes Hospital course: Patient had an uneventful hospital course after he was admitted given IV fluids due to dehydration from gastroenteritis and volume depletion. He had significant acute kidney injury superimposed on chronic kidney disease requiring aggressive IV fluid resuscitation. Good urinary output occurred and patient was back to near baseline with creatinine of 1.5 at discharge and he was discharged in improved condition. Labs (last 24 hrs) Laboratory Tests 12/08/22 18:10: White Blood Count 4.3, Red Blood Count 4.24L, Hemoglobin 11.7L, Hematocrit 37L, Mean Corpuscular Volume 86, Mean Corpuscular Hemoglobin 28, Mean Corpuscular Hemoglobin Concent 32, Red Cell Distribution Width 16.1H, Platelet Count 261, Mean Platelet Volume 10.3, Immature Granulocyte % (Auto) 1, Neutrophils (%) (Auto) 60, Lymphocytes (%) (Auto) 23, Monocytes (%) (Auto) 14H, Eosinophils (%) (Auto) 2, Basophils (%) (Auto) 1, Neutrophils # (Auto) 2.6, Lymphocytes # (Auto) 1.0, Monocytes # (Auto) 0.6, Eosinophils # (Auto) 0.1, Basophils # (Auto) 0.0, Immature Granulocyte # (Auto) 0.0, Sodium Level 138, Potassium Level 3.5L, Chloride Level 103, Carbon Dioxide Level 23, Anion Gap 12, Blood Urea Nitrogen 40H, Creatinine 4.43H, Estimat Glomerular Filtration Rate 14, BUN/Creatinine Ratio 9, Glucose Level 123H, Calcium Level 8.7, Corrected Calcium 8.7, Total Bilirubin 0.2, Aspartate Amino Transf (AST/SGOT) 18, Alanine Aminotransferase (ALT/SGPT) 20, Alkaline Phosphatase 73, Total Protein 7.4, Albumin 4.0, Lipase 161H, Serum Alcohol < 10 12/08/22 19:58: Urine Color YELLOW, Urine Clarity CLEAR, Urine pH 5.5, Urine Specific [place] >=1.030, Urine Protein 1+H, Urine Glucose (UA) NEGATIVE, Urine Ketones NEGATIVE, Urine Nitrite NEGATIVE, Urine Bilirubin NEGATIVE, Urine Urobilinogen 0.2, Urine Leukocyte Esterase NEGATIVE, Urine RBC (Auto) NEGATIVE, Urine RBC NONE, Urine WBC 0-2, Urine Crystals PRESENTH, Urine Amorphous Sediment FEW MAREK URATESH, Urine Bacteria TRACE, Urine Casts PRESENT, Urine Hyaline Casts 10-25H, Urine Granular Casts 2-5H, Urine Mucus SMALLH, Urine Culture Indicated NO 12/09/22 03:04: Sodium Level 140, Potassium Level 3.7, Chloride Level 109H, Carbon Dioxide Level 19L, Anion Gap 12, Blood Urea Nitrogen 33H, Creatinine 2.97#H, Estimat Glomerular Filtration Rate 23, BUN/Creatinine Ratio 11, Glucose Level 102, Calcium Level 7.7L 12/09/22 10:40: Glucometer 104 12/10/22 05:10: White Blood Count 3.7L, Red Blood Count 3.54L, Hemoglobin 9.8L, Hematocrit 30L, Mean Corpuscular Volume 85, Mean Corpuscular Hemoglobin 28, Mean Corpuscular Hemoglobin Concent 33, Red Cell Distribution Width 15.9H, Platelet Count 200, Mean Platelet Volume 10.4, Immature Granulocyte % (Auto) 1, Neutrophils (%) (Auto) 57, Lymphocytes (%) (Auto) 30, Monocytes (%) (Auto) 10, Eosinophils (%) (Auto) 2, Basophils (%) (Auto) 1, Neutrophils # (Auto) 2.1, Lymphocytes # (Auto) 1.1, Monocytes # (Auto) 0.4, Eosinophils # (Auto) 0.1, Basophils # (Auto) 0.0, Immature Granulocyte # (Auto) 0.0, Sodium Level 141, Potassium Level 3.3L, Chloride Level 111H, Carbon Dioxide Level 23, Anion Gap 7, Blood Urea Nitrogen 15, Creatinine 1.45H, Estimat Glomerular Filtration Rate 55, BUN/Creatinine Ratio 10, Glucose Level 93, Calcium Level 7.8L, Corrected Calcium 8.3L, Total Bilirubin 0.2, Aspartate Amino Transf (AST/SGOT) 17, Alanine Aminotransferase (ALT/SGPT) 15, Alkaline Phosphatase 59, Total Protein 6.1L, Albumin 3.4 Microbiology 12/08/22 Stool Culture - Preliminary, Resulted Culture In Progress Presumptive Usual Mayi Pending Labs Microbiology Date/Time Source Procedure Growth Status 12/08/22 18:20 Stool Stool Culture - Preliminary Culture In Progress Presumptive Usual Mayi Resulted 12/08/22 18:20 Stool C. difficile GDH Antigen & Toxins - Final Complete Laboratory Tests 12/08/22 18:10: White Blood Count 4.3, Red Blood Count 4.24, Hemoglobin 11.7, Hematocrit 37, Mean Corpuscular Volume 86, Mean Corpuscular Hemoglobin 28, Mean Corpuscular Hemoglobin Concent 32, Red Cell Distribution Width 16.1, Platelet Count 261, Mean Platelet Volume 10.3, Immature Granulocyte % (Auto) 1, Neutrophils (%) (Auto) 60, Lymphocytes (%) (Auto) 23, Monocytes (%) (Auto) 14, Eosinophils (%) (Auto) 2, Basophils (%) (Auto) 1, Neutrophils # (Auto) 2.6, Lymphocytes # (Auto) 1.0, Monocytes # (Auto) 0.6, Eosinophils # (Auto) 0.1, Basophils # (Auto) 0.0, Immature Granulocyte # (Auto) 0.0, Sodium Level 138, Potassium Level 3.5, Chloride Level 103, Carbon Dioxide Level 23, Anion Gap 12, Blood Urea Nitrogen 40, Creatinine 4.43, Estimat Glomerular Filtration Rate 14, BUN/Creatinine Ratio 9, Glucose Level 123, Calcium Level 8.7, Corrected Calcium 8.7, Total Bilirubin 0.2, Aspartate Amino Transf (AST/SGOT) 18, Alanine Aminotransferase (ALT/SGPT) 20, Alkaline Phosphatase 73, Total Protein 7.4, Albumin 4.0, Lipase 161, Serum Alcohol < 10 12/08/22 19:58: Urine Color YELLOW, Urine Clarity CLEAR, Urine pH 5.5, Urine Specific [place] >=1.030, Urine Protein 1+, Urine Glucose (UA) NEGATIVE, Urine Ketones NEGATIVE, Urine Nitrite NEGATIVE, Urine Bilirubin NEGATIVE, Urine Urobilinogen 0.2, Urine Leukocyte Esterase NEGATIVE, Urine RBC (Auto) NEGATIVE, Urine RBC NONE, Urine WBC 0-2, Urine Crystals PRESENT, Urine Amorphous Sediment FEW MAREK URATES, Urine Bacteria TRACE, Urine Casts PRESENT, Urine Hyaline Casts 10-25, Urine Granular Casts 2-5, Urine Mucus SMALL, Urine Culture Indicated NO 12/09/22 03:04: Sodium Level 140, Potassium Level 3.7, Chloride Level 109, Carbon Dioxide Level 19, Anion Gap 12, Blood Urea Nitrogen 33, Creatinine 2.97, Estimat Glomerular Filtration Rate 23, BUN/Creatinine Ratio 11, Glucose Level 102, Calcium Level 7.7 12/09/22 10:40: Glucometer 104 12/10/22 05:10: White Blood Count 3.7, Red Blood Count 3.54, Hemoglobin 9.8, Hematocrit 30, Mean Corpuscular Volume 85, Mean Corpuscular Hemoglobin 28, Mean Corpuscular Hemoglobin Concent 33, Red Cell Distribution Width 15.9, Platelet Count 200, Mean Platelet Volume 10.4, Immature Granulocyte % (Auto) 1, Neutrophils (%) (Auto) 57, Lymphocytes (%) (Auto) 30, Monocytes (%) (Auto) 10, Eosinophils (%) (Auto) 2, Basophils (%) (Auto) 1, Neutrophils # (Auto) 2.1, Lymphocytes # (Auto) 1.1, Monocytes # (Auto) 0.4, Eosinophils # (Auto) 0.1, Basophils # (Auto) 0.0, Immature Granulocyte # (Auto) 0.0, Sodium Level 141, Potassium Level 3.3, Chloride Level 111, Carbon Dioxide Level 23, Anion Gap 7, Blood Urea Nitrogen 15, Creatinine 1.45, Estimat Glomerular Filtration Rate 55, BUN/Creatinine Ratio 10, Glucose Level 93, Calcium Level 7.8, Corrected Calcium 8.3, Total Bilirubin 0.2, Aspartate Amino Transf (AST/SGOT) 17, Alanine Aminotransferase (ALT/SGPT) 15, Alkaline Phosphatase 59, Total Protein 6.1, Albumin 3.4 Discharge Home Medications: Active Scripts Active Hydralazine HCl 50 Mg Tablet 50 Mg PO BID Reported Omeprazole 40 Mg Capsule.dr 40 Mg PO BID LAST FILLED 11-05-2022 #30 DAY SUPPLY Fish Oil 1,000 mg Softgel ([place]-3/Dha/Epa/Fish Oil) 1,000 Mg (120 Mg-180 Mg) Capsule 3,000 Mg PO DAILY TAKES 3 (1000MG) CAPS Isosorbide Mononitrate ER (Isosorbide Mononitrate) 60 Mg Tab 60 Mg PO DAILY Finasteride 5 Mg Tablet 5 Mg PO 1800 Clopidogrel (Clopidogrel Bisulfate) 75 Mg Tablet 75 Mg PO 1800 Carvedilol 6.25 Mg Tablet 6.25 Mg PO BID WITH MEALS Fenofibrate 54 Mg Tablet 54 Mg PO 1800 Bupropion HCl Sr (Bupropion HCl) 150 Mg Tablet.er 150 Mg PO BID Amlodipine Besylate 10 Mg Tablet 10 Mg PO DAILY Losartan Potassium 50 Mg Tablet 100 Mg PO 1800 TAKES 2 (50MG) TABS Aspirin EC (Aspirin) 81 Mg Tablet.dr 81 Mg PO HS Sertraline HCl 25 Mg Tablet 25 Mg PO DAILY TAKES ALONG WITH 100MG TABLET Sertraline HCl 100 Mg Tablet 100 Mg PO DAILY TAKES ALONG WITH 25MG TABLET Atorvastatin Calcium 10 Mg Tablet 10 Mg PO HS Buspirone HCl 15 Mg Tablet 15 Mg PO BID Instructions to patient/family Please see electronic discharge instructions given to patient. DUKE WHITE DO Dec 10, 2022 05:00
[2022-12-10 05:44] LABS: BASOPHILS % (AUTO) 1 % (0-10); EOSINOPHILS # (AUTO) 0.1 10^3/uL (0.0-0.3); EOSINOPHILS % (AUTO) 2 % (0-10); HEMATOCRIT 30 % (40-54); HEMOGLOBIN 9.8 g/dL (13.3-17.7); LYMPHOCYTES # (AUTO) 1.1 10^3/uL (1.0-4.0); LYMPHOCYTES % (AUTO) 30 % (12-44); MEAN CORPUSCULAR HEMOGLOBIN 28 pg (25-34); MEAN CORPUSCULAR HGB CONC 33 g/dL (32-36); MEAN CORPUSCULAR VOLUME 85 fL (80-99); MEAN PLATELET VOLUME 10.4 fL (9.0-12.2); MONOCYTES # (AUTO) 0.4 10^3/uL (0.0-1.0); MONOCYTES % (AUTO) 10 % (0-12); NEUTROPHILS # (AUTO) 2.1 10^3/uL (1.8-7.8); NEUTROPHILS % (AUTO) 57 % (42-75); PLATELET COUNT 200 10^3/uL (130-400); WHITE BLOOD COUNT 3.7 10^3/uL (4.3-11.0)
[2022-12-10 06:14] LABS: ALBUMIN 3.4 GM/DL (3.2-4.5); BILIRUBIN,TOTAL 0.2 MG/DL (0.1-1.0); CALCIUM 7.8 MG/DL (8.5-10.1); CREATININE SERUM 1.45 MG/DL (0.60-1.30); POTASSIUM 3.3 MMOL/L (3.6-5.0); TOTAL PROTEIN 6.1 GM/DL (6.4-8.2)
[2022-12-10] MEDS ORDERED: hydrALAZINE (APRESOLINE) 25 MG TAB PO ONE (06:30)
[2022-12-10 07:40] VITALS: BP 177/79
[2022-12-10] MEDS ORDERED: amLODIPine 5 MG (NORVASC) TAB PO SCH (09:00)
== END 2022-12-10 08:45 | disposition home or self-care (01) | DRG 684 ==
LOC: EDUNIT# 17:39 → ER 17:40 → CSD 12-09 06:59 → 4TH 12-09 12:48
PROVIDERS: ADMIT Internal Medicine; ATTEND Internal Medicine
DX: N17.9 Acute kidney failure, unspecified (principal); N18.30 Chronic kidney disease, stage 3 unspecified; J44.9 Chronic obstructive pulmonary disease, unspecified; F17.210 Nicotine dependence, cigarettes, uncomplicated; I12.9 Hypertensive chronic kidney disease with stage 1 through stage 4 chronic kidney disease, or unspecified chronic kidney disease; I25.10 Atherosclerotic heart disease of native coronary artery without angina pectoris; Z95.5 Presence of coronary angioplasty implant and graft; E86.0 Dehydration; K52.9 Noninfective gastroenteritis and colitis, unspecified; E86.9 Volume depletion, unspecified; Z85.46 Personal history of malignant neoplasm of prostate; Z79.82 Long term (current) use of aspirin; Z79.899 Other long term (current) drug therapy; Z86.718 Personal history of other venous thrombosis and embolism; E78.00 Pure hypercholesterolemia, unspecified; G43.909 Migraine, unspecified, not intractable, without status migrainosus; Z86.73 Personal history of transient ischemic attack (TIA), and cerebral infarction without residual deficits; K21.9 Gastro-esophageal reflux disease without esophagitis; M06.9 Rheumatoid arthritis, unspecified; G89.29 Other chronic pain; M54.9 Dorsalgia, unspecified; Z92.3 Personal history of irradiation; F41.9 Anxiety disorder, unspecified; F32.A Depression, unspecified; Z68.30 Body mass index [BMI] 30.0-30.9, adult
CPT/HCPCS: 36415; 51702; 74176; 80048; 80053; 80320; 81000; 82947; 83690; 85025; 87015; 87045; 87046; 87077; 87324; 87449; 87899; 94640; 94664; 94760; G0378